=== PATIENT | male | born 1945 | race Caucasian/White ===

== ENCOUNTER → 2016-11-17 | Outpatient (CLI) | payer MEDICARE, OTHER ==
[~2016-11-17] MED LIST: ALLO300T46 PO; ASPI-664 PO; CALC-375 PO; COLC0.6T6 PO; NAPR220C2 PO; SIMV20TA2 PO; VALS320T11 PO; [UNRECOGNIZED DRUG - CODE] PO
--- NOTE | 2016-11-17 12:13 | RADRPT ---
PROCEDURE: XR Pelvis and Hips. CLINICAL INDICATION: Pelvic pain. Bilateral hip pain. TECHNIQUE: Five views. Frontal pelvis. Frontal and lateral right hip. Frontal and lateral left hip. COMPARISON: 11/22/2014. FINDINGS: There is a right hip total arthroplasty which appears satisfactory. There is no fracture, dislocati on, or loosening. There are moderate degenerative changes of the left hip with joint space narrowing and osteophytes. There is no fracture or dislocation. Left hip articular surfaces are intact. Vascular calcifications are present consistent with atherosclerosis. There is no lytic or blastic lesion. Surgical clips are present in the bilateral inguinal regions. There are are surgical metal devices in the midline abdomen from prior surgery of repair with mesh. There are degenerative changes of th e spine. IMPRESSION: 1. Satisfactory postoperative appearance of the right hip. 2. Moderate degenerative changes of the left hip. 3. Postoperative changes of the abdomen and pelvis. 4. Degenerative changes of the lower lumbar spine. RPTAT: QQ .Trung De Anda MD, MD Date Time Electronically viewed and signed by .Trung De Anda MD, on 11/17/2016 12:13 .R/
== END | disposition home or self-care (01) ==
LOC: HKI 09:18
PROVIDERS: ATTEND Orthopaedic Surgery
DX: Z09 Encounter for follow-up examination after completed treatment for conditions other than malignant neoplasm (principal); Z96.641 Presence of right artificial hip joint; M16.12 Unilateral primary osteoarthritis, left hip; M25.552 Pain in left hip
CPT/HCPCS: 73523; G0463

== ENCOUNTER 2016-12-10 12:03 | Inpatient (IN) | payer MEDICARE, OTHER ==
[~2016-12-10] VITALS: Ht 170.2 cm; Wt 88.7 kg
[2016-12-10 12:49] LABS: ADD SCAN DIFF NO
[2016-12-10 13:08] LABS: ABNORMAL IP MESSAGE 1; BASOPHIL # 0.1 10^3/ul (0.0-0.1); BASOPHILS % 0.5 % (0.0-2.0); EOSINOPHILS % 0.1 % (0.0-7.0); HEMATOCRIT 37.7 % (42.0-52.0); HEMOGLOBIN 13.6 g/dl (14.0-18.0); LYMPHOCYTES # 0.4 10^3/ul (0.8-2.9); LYMPHOCYTES % 2.8 % (15.0-51.0); MEAN CORPUSCULAR HEMOGLOBIN 31.8 pg (29.0-33.0); MEAN CORPUSCULAR HGB CONC 36.1 g/dl (32.0-37.0); MEAN CORPUSCULAR VOLUME 88.1 fl (82.0-101.0); MEAN PLATELET VOLUME 13.7 fl (7.4-10.4); MONOCYTE # 0.4 10^3/ul (0.3-0.9); NEUTROPHIL # 13.1 10^3/ul (1.6-7.5); PLATELET COUNT 112 10^3/UL (140-415); RED BLOOD COUNT 4.28 10^6/ul (4.70-6.10); RED CELL DISTRIBUTION WIDTH 14.7 % (11.5-14.5); WHITE BLOOD COUNT 14.1 10^3/ul (4.8-10.8)
--- NOTE | 2016-12-10 13:16 | RADRPT ---
PROCEDURE: CHEST 1VW CLINICAL INDICATION: Weakness TECHNIQUE: Single frontal view of the chest was obtained COMPARISON: None. FINDINGS: The cardiac size is normal. Aortic vascular calcifications are demonstrated. There is no pulmonary vascular congestion. The lungs are clear. No consolidation, effusion, or pneumothorax. Mild degenerative changes of the visualized osseous structures are visualized. IMPRESSION: 1. No acute cardiopulmonary process. 2. Atherosclerosis. RPTAT:PP .Juan C Verde MD, MD Date Time Electronically viewed and signed by .Juan C Verde MD, on 12/10/2016 13:16 .V/
[2016-12-10] MEDS ORDERED: VALS160T20 PO (14:36)
[2016-12-10] MEDS ORDERED: METO-448 PO (14:37)
[2016-12-10 15:32] LABS: ADD UMIC YES; UR BILIRUBIN (Dip) NEGATIVE (NEGATIVE); UR BLOOD (Dip) 2+ (NEGATIVE); UR CLARITY CLEAR (CLEAR); UR COLOR LT. YELLOW (YELLOW); UR GLUCOSE (Dip) NEGATIVE (NEGATIVE); UR KETONES (Dip) NEGATIVE (NEGATIVE); UR LEUKOCYTE ESTERASE (Dip) TRACE (NEGATIVE); UR NITRITE (Dip) NEGATIVE (NEGATIVE); UR TOTAL PROTEIN (Dip) 2+ (NEGATIVE); UR UROBILINOGEN (Dip) 0.2 E.U./dL (0.1-1.0)
[2016-12-10] MEDS ORDERED: SOD CHLORIDE 0.9% 1,000 ML IV ONE (15:45)
[2016-12-10 15:50] LABS: ALANINE AMINOTRANSFERASE 36 IU/L (13-69); ALBUMIN/GLOBULIN RATIO 0.88; ALKALINE PHOSPHATASE 84 IU/L (42-121); ASPARTATE AMINO TRANSFERASE 38 IU/L (15-46); BILIRUBIN,INDIRECT 0.3 mg/dl (0-1.1); BILIRUBIN,TOTAL 0.3 mg/dl (0.2-1.3); BLOOD UREA NITROGEN 95 mg/dl (7-20); CALCIUM 9.5 mg/dl (8.4-10.2); CARBON DIOXIDE 32 mmol/L (21-31); CREATININE 5.81 mg/dl (0.61-1.24); GLUCOSE 107 mg/dl (70-220); TOTAL PROTEIN 6.4 g/dl (6.1-8.1)
[2016-12-10 15:54] LABS: URINE RBCS 0-2 /HPF (0)
[2016-12-10 16:01] LABS: ANION GAP 20 (8-16); CHLORIDE 79 mmol/L (97-110); POTASSIUM 3.6 mmol/L (3.5-5.1); SODIUM 127 mmol/L (135-144)
[2016-12-10 16:26] LABS: BARBITURATES Negative (NEGATIVE); BENZODIAZEPINES Negative (NEGATIVE); COCAINE Negative (NEGATIVE)
[2016-12-10 16:30] LABS: CANNABINOIDS Positive (NEGATIVE); OPIATES Negative (NEGATIVE)
[2016-12-10 16:32] LABS: ETHANOL < 10.0 mg/dl
[2016-12-10] MEDS ORDERED: ACETAMINOPHEN 325 MG TAB PO PRN ×2 (17:00→18:00)
[2016-12-10] MEDS ORDERED: ONDANSETRON 4 MG INJ IV PRN (17:00)
--- NOTE | 2016-12-10 17:19 | ERA ---
ER Documentation Chief Complaint Date/Time DATE: 12/10/16 TIME: 17:08 Chief Complaint WEAKNESS, FLU X 5 DAYS TRIP AND FALL TODAY HPI 71-year-old male with a history of atrial fibrillation, hypertension, hyperlipidemia, gout, and prostate cancer status post treatment presenting to the ER with generalized weakness for several days. He states that over the past year, he has been feeling like his muscles have been wasting. He has had progressively worsening generalized weakness. Today he was having some difficulty walking due to his weakness and fell. He denies hitting his head or any loss of consciousness. He denies any specific injuries. He has no chest pain, shortness of breath, dizziness, headache, vision disturbance, focal weakness or numbness, abdominal pain or dysuria. ROS All systems reviewed and are negative except as per history of present illness. Medications Home Meds Reported Medications Metoprolol Tartrate* (Lopressor*) 25 Mg Tab, 25 MG PO BID, #60 TAB 12/10/16 Valsartan* (Diovan*) 160 Mg Tablet, 160 MG PO DAILY, TAB 12/10/16 Naproxen* (Aleve*) 220 Mg Capsule, 220 MG PO DAILY 11/13/13 Aspirin (Aspirin) 81 Mg Tablet.dr, 81 MG PO DAILY 11/13/13 Simvastatin (Simvastatin) 20 Mg Tablet, 20 MG PO HS 11/13/13 Allopurinol* (Zyloprim*) 300 Mg Tablet, 300 MG PO DAILY 11/13/13 Discontinued Reported Medications Glucosamine/Chondro Phillips A (Cosamin Ds Tablet) 1 Tab Tablet, 1 TAB PO DAILY 11/13/13 Calcium Citrate/Vitamin D3 (Citracal + D Caplet) 1 Tab Tablet, 1 TAB PO DAILY 11/13/13 Colchicine* (Colcrys*) 0.6 Mg Tablet, 0.6 MG PO BID 11/13/13 Valsartan* (Diovan*) 320 Mg Tablet, 320 MG PO DAILY 11/13/13 Allergies Allergies: Coded Allergies: Penicillins (Verified Allergy, Unknown, 12/10/16) adhesive (Verified Allergy, Unknown, 12/10/16) latex (Verified Allergy, Unknown, 12/10/16) PMhx/Soc History of Surgery: Yes Anesthesia Reaction: No Hx Neurological Disorder: No Hx Respiratory Disorders: No Hx Cardiac Disorders: Yes (HTN, HIGH CHOLESTEROL) Hx Psychiatric Problems: No Hx Miscellaneous Medical Probl: Yes (HTN, DJD, prostate carcinoma, gout) Hx Alcohol Use: Yes (Drinks 10 beers a day) Hx Substance Use: No Hx Tobacco Use: No Smoking Status: Never smoker FmHx Family History: No diabetes Physical Exam Vitals Vital Signs Date Time Temp Pulse Resp B/P Pulse Ox O2 Delivery O2 Flow Rate FiO2 12/10/16 13:12 100 18 120/60 99 Room Air 12/10/16 12:09 98.1 84 20 148/88 98 Physical Exam Const: Well-appearing, no distress, nontoxic Head: Atraumatic Eyes: Normal Conjunctiva ENT: Dry oral mucosa Neck: Full range of motion. No meningismus. Resp: Clear to auscultation bilaterally Cardio: Irregularly irregular rate and rhythm, no murmurs Abd: Soft, non tender, non distended. Normal bowel sounds Skin: No petechiae or rashes Back: No midline or flank tenderness Ext: No cyanosis, or edema. No obvious muscle atrophy noted Neur: Awake and alert and oriented 3, cranial nerves intact, strength and sensations intact in all 4 extremities. Gait not tested secondary to weakness Psych: Normal Mood and Affect Result Diagram: 12/10/16 1200 12/10/16 1520 Results 24 hrs Laboratory Tests Test 12/10/16 12:00 12/10/16 15:10 12/10/16 15:20 White Blood Count 14.110^3/ul Red Blood Count 4.2810^6/ul Hemoglobin 13.6g/dl Hematocrit 37.7% Mean Corpuscular Volume 88.1fl Mean Corpuscular Hemoglobin 31.8pg Mean Corpuscular Hemoglobin Concent 36.1g/dl Red Cell Distribution Width 14.7% Platelet Count 13780^3/UL Mean Platelet Volume 13.7fl Neutrophils % 93.0% Lymphocytes % 2.8% Monocytes % 3.0% Eosinophils % 0.1% Basophils % 0.5% Nucleated Red Blood Cells % 0.0/100WBC Neutrophils # 13.110^3/ul Lymphocytes # 0.410^3/ul Monocytes # 0.410^3/ul Eosinophils # 0.010^3/ul Basophils # 0.110^3/ul Nucleated Red Blood Cells # 0.010^3/ul Urine Color LT. YELLOW Urine Clarity CLEAR Urine pH 6.5 Urine Specific [place] 1.015 Urine Ketones NEGATIVE Urine Nitrite NEGATIVE Urine Bilirubin NEGATIVE Urine Urobilinogen 0.2 E.U./dL Urine Leukocyte Esterase TRACE Urine Microscopic RBC 0-2/HPF Urine Microscopic WBC 0-2/HPF Urine Hemoglobin 2+ Urine Glucose NEGATIVE% Urine Total Protein 2+ Urine Opiates Screen Negative Urine Barbiturates Negative Urine Amphetamines Screen Negative Urine Benzodiazepines Screen Negative Urine Cocaine Screen Negative Urine Cannabinoids Positive Sodium Level 127mmol/L Potassium Level 3.6mmol/L Chloride Level 79mmol/L Carbon Dioxide Level 32mmol/L Anion Gap 20 Blood Urea Nitrogen 95mg/dl Creatinine 5.81mg/dl Glucose Level 107mg/dl Calcium Level 9.5mg/dl Total Bilirubin 0.3mg/dl Direct Bilirubin 0.00mg/dl Indirect Bilirubin 0.3mg/dl Aspartate Amino Transf (AST/SGOT) 38IU/L Alanine Aminotransferase (ALT/SGPT) 36IU/L Alkaline Phosphatase 84IU/L Total Protein 6.4g/dl Albumin 3.0g/dl Globulin 3.40g/dl Albumin/Globulin Ratio 0.88 Ethyl Alcohol Level < 10.0mg/dl Current Medications Medications (Trade) Dose Ordered Sig/Julianne Route PRN Reason Start Time Stop Time Status Last Admin Dose Admin Sodium Chloride (NS) 1,000 ml @ 500 mls/hr Q2H ONCE IV 12/10/16 15:45 12/10/16 17:44 12/10/16 15:58 Ondansetron HCl (Zofran Inj) 4 mg ER BRIDGE PRN IV NAUSEA AND/OR VOMITING 12/10/16 17:00 12/11/16 16:59 Acetaminophen (Tylenol Tab) 650 mg ER BRIDGE PRN PO MILD PAIN/FEVER 12/10/16 17:00 12/11/16 16:59 Procedures/MDM EKG: Rate/Rhythm: A. fib at 109 bpm QRS, ST, T-waves: No changes consistent w/ acute ischemia Impression: No evidence of ischemia or arrhythmia Chest x-ray shows no acute abnormalities Labs: CBC shows mild leukocytosis with elevation in neutrophils, CMP notable for hypochloremia, hyponatremia, uremia and elevation of creatinine MDM: Patient is presenting with generalized weakness has progressively worsened. He has no focal weakness to suggest an acute stroke or intracranial hemorrhage. Vitals are unremarkable and he is afebrile. Urinalysis does not show evidence of infection. EKG shows A. fib without evidence of ischemia. He has mild leukocytosis of unknown etiology. There is no evidence of pneumonia on his chest x-ray or pulmonary edema. His labs reveal he has acute renal failure with hypochloremic hyponatremia but no evidence of hyperkalemia. Given his history of muscle wasting, I added a CK to evaluate for rhabdomyolysis as a cause of his renal failure. Troponin is also pending. Patient will be admitted to telemetry for further workup and management. 1 L of fluids is running at this time. Patient was updated about his results and the plan to admit. He remained hemodynamically stable while he was in the ER. Critical Care Time: 35 minutes Treatments/Evaluations: Close monitoring and treatment of unstable vital signs, cardiorespiratory, and neurologic status, while maintaining tight balance of fluid, respiratory, and cardiac interventions. This time includes discussing the case with the patient and the patients family. This time does not include all procedures stated elsewhere in this record. This time also includes reviewing old records, labs and radiological studies. This time includes examining and re-examining the patient. Additionally, this time also includes arranging care with admitting and consulting physicians. Accepting Care Team: Current data and ongoing care discussed. Time: Time of admission Primary Provider: Solomon Consulting: None Outstanding Data: Troponin, CK, CK-MB Departure Diagnosis: Primary Impression: Acute weakness Additional Impressions: Acute renal failure (ARF) Qualified Code: N17.9 - Acute renal failure, unspecified acute renal failure type Hypochloremia Hyponatremia Leukocytosis, unspecified Condition: Serious URSULA GAYTAN MD December 10, 2016 17:19
[2016-12-10] MEDS ORDERED: MAGNESIUM HYDROXIDE 30ML CUP PO PRN (18:00)
[2016-12-10] MEDS ORDERED: BISACODYL (EC) 5 MG TAB PO PRN (18:00)
[2016-12-10] MEDS ORDERED: NACL 0.9% 3 ML SYG IV SCH (18:00)
--- NOTE | 2016-12-10 18:18 | RADRPT ---
PROCEDURE: CT Brain without contrast. CLINICAL INDICATION: Fall, weakness. TECHNIQUE: A CT of the brain was performed utilizing axial sections from the skull base through th e vertex without contrast. Multiplanar re-formations were generated. Images were reviewed on a high- resolution PACS workstation. CTDIvol: 42.30 mGy. DLP: 720.23 mGy-cm. One or more of the following dose reduction techniques were used: - Automated exposure control. - Adjustment of the mA and/or kV according to patient size. - Use of iterative reconstruction technique. COMPARISON: None available FINDINGS: There is mild to moderate generalized volume loss. No hydrocephalus is seen. There is no mass effec t. No acute intracranial hemorrhage is identified. There is no extra-axial collection. No CT eviden ce of acute infarction is identified. There is patchy low attenuation in the supratentorial white m atter, a nonspecific finding which most likely represents the sequela of mild chronic microvascular ischemic disease. There are mild atherosclerotic arterial calcifications. There is no significant mucosal disease in the paranasal sinuses. The visualized mastoid air cells a re clear. The ossesous structures are unremarkable. The extracranial soft tissues are unremarkable. The patient is status post bilateral lens replacement surgery. IMPRESSION: 1. No acute intracranial pathology. 2. Mild to moderate generalized volume loss. 3. Mild chronic microvascular ischemic changes. 4. Atherosclerotic arterial calcifications. RPTAT: HTAR .Mark Devlin MD, Date Time Electronically viewed and signed by .Mark Devlin MD, on 12/10/2016 18:18 .R/
[2016-12-10 18:27] LABS: CK-MB 0.8 ng/ml (0.0-2.4)
--- NOTE | 2016-12-10 18:58 | CONS ---
Date/Time of Note Date/Time of Note DATE: 12/10/16 TIME: 18:52 Assessment/Plan Assessment/Plan Additional Assessment/Plan Acute kidney injury Status post fall Atrial fibrillation History of hypertension Recent UTI -Our patient's fall is likely secondary to severe hypovolemia, acute kidney injury. His atrial fibrillation is currently well-controlled. Will continue beta-anjelica as blood pressure permits. Would give aggressive IV fluids, given recent UTI and acute kidney injury, renal imaging to rule out any other contributing factor. Based on his laboratory studies and history, at the current time, his weakness and fall does not appear to be cardiac in origin. Consultation Date/Type/Reason Admit Date/Time Type of Consultation: cv Reason for Consultation Atrial fibrillation and fall Hx of Present Illness This is a 71-year-old male with past medical history of atrial fibrillation, hypertension, dyslipidemia, arthritis who presents with 3-4 days symptoms of fatigue, nausea, vomiting. Patient was being treated for a UTI recently with antibiotics. This, he felt extremely weak and when he stood down. There was no loss of consciousness. No chest pain, shortness of breath. Once on the floor, he felt too weak to get up. Because of the above, he came to the emergency room for evaluation and care. He feels better after receiving IV fluids. Prior to this episode, he denies exertional chest pain, shortness breath, occasions or disease. He does tonic and this has been controlled metoprolol and he is not on anticoagulation for unknown reasons. 12 point review of systems was performed with all pertinent positives and negatives mentioned above and all else is negative Past Medical History Atrial fibrillation Medical History: hypertension Past Surgical History Past Surgical Hx: other (Hip surgery) Family History Significant Family History: no pertinent family hx Social History Smoking Status: Never smoker Other Social History Lives at home Exam/Review of Systems Vital Signs Vitals Vital Signs Date Time Temp Pulse Resp B/P Pulse Ox O2 Delivery O2 Flow Rate FiO2 12/10/16 17:44 96 2 154/83 98 Room Air 12/10/16 12:09 98.1 Exam No apparent distress, following commands Constitutional: alert, oriented Head: normocephalic Neck: supple Respiratory: clear to auscultation, normal air movement Cardiovascular: irregular rhythm, other (S1-S2 heard) Gastrointestinal: bowel sounds, non-tender, other (No guarding), soft Extremities: other (No edema or cyanosis) Results Result Diagram: 12/10/16 1200 12/10/16 1520 Results 24 hrs Laboratory Tests Test 12/10/16 12:00 12/10/16 15:10 12/10/16 15:20 12/10/16 15:30 White Blood Count 14.1 H Red Blood Count 4.28 L Hemoglobin 13.6 L Hematocrit 37.7 L Mean Corpuscular Volume 88.1 Mean Corpuscular Hemoglobin 31.8 Mean Corpuscular Hemoglobin Concent 36.1 Red Cell Distribution Width 14.7 H Platelet Count 112 L Mean Platelet Volume 13.7 H Neutrophils % 93.0 H Lymphocytes % 2.8 L Monocytes % 3.0 Eosinophils % 0.1 Basophils % 0.5 Nucleated Red Blood Cells % 0.0 Neutrophils # 13.1 H Lymphocytes # 0.4 L Monocytes # 0.4 Eosinophils # 0.0 Basophils # 0.1 Nucleated Red Blood Cells # 0.0 Urine Color LT. YELLOW Urine Clarity CLEAR Urine pH 6.5 Urine Specific [place] 1.015 Urine Ketones NEGATIVE Urine Nitrite NEGATIVE Urine Bilirubin NEGATIVE Urine Urobilinogen 0.2 E.U./dL Urine Leukocyte Esterase TRACE H Urine Microscopic RBC 0-2 Urine Microscopic WBC 0-2 Urine Hemoglobin 2+ H Urine Glucose NEGATIVE Urine Total Protein 2+ H Urine Opiates Screen Negative Urine Barbiturates Negative Urine Amphetamines Screen Negative Urine Benzodiazepines Screen Negative Urine Cocaine Screen Negative Urine Cannabinoids Positive Sodium Level 127 L Potassium Level 3.6 Chloride Level 79 L Carbon Dioxide Level 32 H Anion Gap 20 H Blood Urea Nitrogen 95 H Creatinine 5.81 H Glucose Level 107 Calcium Level 9.5 Total Bilirubin 0.3 Direct Bilirubin 0.00 Indirect Bilirubin 0.3 Aspartate Amino Transf (AST/SGOT) 38 Alanine Aminotransferase (ALT/SGPT) 36 Alkaline Phosphatase 84 Creatine Kinase 37 Creatinine Kinase MB (Mass) 0.80 Troponin I 0.021 Total Protein 6.4 Albumin 3.0 L Globulin 3.40 H Albumin/Globulin Ratio 0.88 Ethyl Alcohol Level < 10.0 Uric Acid 4.9 Medications Medications Current Medications Ondansetron HCl (Zofran Inj) 4 mg Q6H PRN IV NAUSEA AND/OR VOMITING; Start 12/10 at 18:00 Acetaminophen (Tylenol Tab) 650 mg Q6H PRN PO PAIN LEVEL 1-3 OR FEVER; Start at 18:00 Acetaminophen/ Hydrocodone Bitart ([place] (5/325)) 1 tab Q6H PRN PO PAIN LEVEL 4 -6; Start 12/10/16 at 18:00 Morphine Sulfate (morphine) 2 mg Q4H PRN IV PAIN LEVEL 7-10; Start 12/10/16 at 18:00 Magnesium Hydroxide (Milk Of Mag) 30 ml DAILY PRN PO CONSTIPATION; Start at 18:00 Bisacodyl (Dulcolax) 5 mg DAILY PRN PO CONSTIPATION; Start 12/10/16 at 18:00 Famotidine (Pepcid) 20 mg DAILY PO ; Start 12/11/16 at 09:00 Hydralazine HCl (Apresoline) 10 mg Q6H PRN IV SBP>160; Start 12/10/16 at 18:00; Status UNV Metoprolol Tartrate (Lopressor) 25 mg BID PO ; Start 12/10/16 at 21:00; Status UNV Miscellaneous Information 20 mg 20 mg HS PO ; Start 12/10/16 at 21:00; Status UNV Sodium Chloride (NS) 1,000 ml @ 100 mls/hr Q10H IV ; Start 12/10/16 at 18:00; Status UNV Lorazepam (Ativan) 1 mg Q2H PRN IV Anxiety; Start 12/10/16 at 18:30; Status UNV Chlordiazepoxide 50 mg 50 mg TID PO ; Start 12/10/16 at 21:00; Status UNV Multivitamins/ Thiamine HCl/ Folic Acid/Sodium Chloride (Mvi Adult/ Vitamin B1/ Folic Acid/NS) 1,011.2 ml @ 125 mls/ hr DAILY@09 IVPB ; Start 12/11/16 at 09:00 ; Status UNV Procedures Procedures ECG demonstrates atrial fibrillation with heart rates in the low 100's, normal QRS duration, nonspecific STT wave abnormality Zeyad Kelly DO December 10, 2016 18:58
--- NOTE | 2016-12-10 19:04 | HP ---
DATE OF ADMISSION: 12/10/2016 TIME OF EVALUATION: 1512. REASON FOR ADMISSION: Weakness, status post fall today. CONSULTATIONS: 1. Dr. Juan Avalos, Nephrology. 2. Dr. Zeyad Kelly, Cardiology. HISTORY OF PRESENT ILLNESS: This is a 71-year-old male with past medical history of essential hypertension, hyperlipidemia, gout, prostate cancer and atrial fibrillation who presented to the emergency room with a chief complaint of generalized weakness, multiple episodes of vomiting and diarrhea and reported fall after tripping on something. The patient verbalized that he has been feeling weak progressively over the past 1 to 2 weeks. He also verbalized that he was having epigastric pain with associated nonbilious nonbloody vomiting and multiple episodes of diarrhea. The patient verbalized that he was recently treated for an urinary tract infection that was probably not completely treated as per the patient. The patient has been incontinent of urine and the patient is wearing a pad. The patient denied any problems with his kidneys. The patient has outpatient cardiology followup. The patient is a current everyday drinker and drinks up to 10 cans of beer per day. The patient' s last drink was on 12/07/2016 in the evening. The patient denied any syncope or presyncope, visual disturbances, headache, chest pain or dyspnea prior to the fall. The patient denied hitting his head. The patient verbalized that it was a ground level fall. The patient verbalized subjective fevers at home. The patient was not taking any medication specifically for his symptoms. Upon questioning why he waited for a week long before seeking medical advice, he verbalized that he had a similar episode in the past year or so and it went away without medical attention. In the emergency room, the patient was noticed to be in atrial fibrillation. The patient's workup showed that the patient has underlying leukocytosis. The patient was also noticed to be in acute renal failure with a BUN and creatinine of 95 and 5.85 respectively. The patient was also noticeably hyponatremic with a sodium of 127. The patient's urine drug screen was positive for cannabinoids. The patient's urinalysis was positive for leukocyte esterase with 2+ proteinuria and 2+ hemoglobinuria. The patient's chest x-ray was showing no acute cardiopulmonary process. The patient was treated with IV sodium chloride in the emergency room. PAST MEDICAL HISTORY: Essential hypertension, hyperlipidemia, gout, prostate cancer, atrial fibrillation. PAST SURGICAL HISTORY: Right hip arthroplasty, prostatectomy, kyphoplasty, left knee arthroscopic surgery, appendectomy and tonsillectomy. HOME MEDICATIONS: 1. Lopressor 25 mg p.o. b.i.d. 2. Valsartan 160 mg p.o. daily. 3. Naproxen 220 mg p.o. daily. 4. Aspirin 81 mg p.o. daily. 5. Simvastatin 20 mg p.o. at bedtime. 6. Allopurinol 300 mg p.o. daily. ALLERGIES: PENICILLIN, ADHESIVES AND LATEX. SOCIAL HISTORY: The patient lives at home by himself. Currently retired. Current every day drinker and drinks 10 beers a day. Denies any tobacco abuse. Smokes marijuana in between. REVIEW OF SYSTEMS: A 12-point review of systems were made and review of systems was negative other than what is mentioned in history of present illness. PHYSICAL EXAMINATION: VITAL SIGNS: Temperature 98.1, pulse rate 96, respiratory rate 18, blood pressure 154/83, oxygen saturation 90% on room air. GENERAL: This is a well-built, well-nourished male patient lying in bed in no apparent distress. HEENT: Head normocephalic and atraumatic. Eyes: Anicteric sclerae. Conjunctivae clear. ENT: Nasal septum is midline. Oral mucosa is dry. NECK: Supple. No JVD noticed. RESPIRATORY: Bilaterally clear to auscultation. No adventitious breath sounds. No use of accessory muscles of respiration. CARDIAC: Irregularly irregular rhythm. ABDOMEN: Soft, nontender, nondistended. Bowel sounds positive in all 4 quadrants. GENITOURINARY: Deferred. EXTREMITIES: No cyanosis, no clubbing, no edema. Peripheral pulses are palpable. NEUROLOGIC: The patient is awake, alert and oriented. Cranial nerves are grossly intact. The patient moves all 4 extremities. LABORATORY AND DIAGNOSTIC DATA: WBC 14.1, hemoglobin 13.6, hematocrit 37.7, platelet count 112. Sodium 127, potassium 3.6, chloride 79, carbon dioxide 32, anion gap 20, BUN 95, creatinine 5.81, glucose 107, calcium 9.5, AST 38, ALT 36 , alkaline phosphatase 84, total protein 6.4. Urinalysis: Urine nitrite negative, urine leukocyte esterase trace, urine hemoglobin 2+, urine total protein 2+. Urine drug screen positive for cannabinoids. Alcohol level less than 10. Chest x-ray: No acute cardiopulmonary process. Atherosclerosis. IMPRESSION: This is a 71-year-old male with multiple comorbidities who came to the emergency room with multiple complaints who was found to have evidence of acute kidney injury and hyponatremia. He will be admitted here for further treatment and evaluation. ASSESSMENT AND PLAN: 1. Acute kidney injury. Etiology unclear. The patient had a normal BUN and creatinine upon review of his medical record from his admission to [facility] in 2013. The patient also denied any history of kidney problems. The patient has been noticed to be taking NSAIDs on a daily basis. The patient is also on Valsartan. The patient has been dehydrated recently. The patient's acute kidney injury could be a result of combination of all the patient's nephrotoxic drugs and dehydration. Nephrotoxic drugs will be discontinued. The patient will be adequately hydrated using IV fluids. A nephrology consult will be obtained. 2. Status post fall. It is unclear whether the patient had a mechanical fall versus non-mechanical. A brain CT scan will be obtained to evaluate for any underlying acute intracranial pathology. A 2D echocardiogram will be done to evaluate the left ventricular ejection fraction and to evaluate for any wall motion abnormalities. The patient will be ruled out for any underlying acute coronary syndrome. The patient will be monitored for any underlying arrhythmias. 3. Essential hypertension. The patient will be started on antihypertensives. The patient's ARBs were discontinued. The patient will also be started on p.r.n. antihypertensives for any systolic blood pressure readings greater than 160 mmHg. 4. Gout. A serum uric acid level will be obtained. The patient's allopurinol will be put on hold at this time. 5. Hyperlipidemia. The patient's statins will be resumed. A fasting lipid panel will be obtained. 6. Atrial fibrillation. The patient will be continued on beta blockers. Cardiology consult will be obtained. Serial troponins will be obtained. 7. Alcohol abuse. The patient is a daily alcohol user. The patient verbalized that his last drink was on 12/07/2016. The patient will be started on tapering dose of Librium. The patient will be started on daily banana bag. The patient also started on IV benzodiazepines for any acute alcohol withdrawal delirium. 8. Leukocytosis. Etiology unclear. Pancultures will be obtained. The patient remains afebrile at this time. Will hold on to starting antibiotics until cultures are available unless the patient has any febrile illness. 9. Thrombocytopenia, most probably secondary to underlying alcohol abuse. We will monitor. Plan. The patient will be admitted to inpatient telemetry floor. The patient will be started on a renal diet. The patient will be started on deep venous thrombosis prophylaxis with bilateral sequential compression devices. The patient will be started on gastrointestinal prophylaxis. The patient will remain a FULL CODE. Activities will be with assist. The rest of the patient's management will be based on the clinical course, the results of diagnostic studies, and inputs from consultants. Based on the patient's clinical presentation, he most probably requires at least 2 midnights' stay for further management and evaluation of his clinical presentation. The case and management of this patient was fully discussed with Dr. Shore. JACK SHORE MD, AM/RIKA Conf#: [id number] DID#: [id number] MTDD
--- NOTE | 2016-12-10 19:42 | RADRPT ---
PROCEDURE: Renal US. CLINICAL INDICATION: Acute kidney insufficiency . TECHNIQUE: Multiple sonographic images of the kidneys were obtained. The images were reviewed on a PACS workstation. COMPARISON: No prior studies are available for comparison. FINDINGS: The right kidney measures 1.5 cm in length. The left kidney measures 9.8 cm in length. Kidneys are normal size and echogenicity. Vascular flow is identified to both kidneys. There is 9 mm nonobstruct ing calculus in the lower pole of the left kidney. There is no hydronephrosis, mass or obstructing calculus. There is no perinephric collection. Visualized urinary bladder is unremarkable. IMPRESSION: Nonobstructing left renal calcification. No evidence for obstructive uropathy. RPTAT: HMVK .Zeyad Woody MD, Date Time Electronically viewed and signed by .Zeyad Woody MD, on 12/10/2016 19:42 .K/
[2016-12-10 20:30] VITALS: TEMP 98.2
[2016-12-10] MEDS ORDERED: FAMOTIDINE 20 MG TAB PO SCH (21:00)
[2016-12-10] MEDS: CHLORDIAZEPOXIDE 25 MG CAP PO SCH ×2 (21:36→21:56)
[2016-12-10] MEDS: SOD CHLORIDE 0.9% 1,000 ML IV SCH (21:36)
[2016-12-10] MEDS: ATORVASTATIN 10 MG TAB PO SCH (21:37)
[2016-12-10] MEDS: METOPROLOL 25 MG TAB PO SCH (21:38)
[2016-12-10 22:13] VITALS: BP 155/73; PULSE 75; RESP 18
[2016-12-10 22:19] VITALS: Ht 170.2 cm; Wt 88.7 kg
[2016-12-10 22:37] VITALS: PULSE 111
[2016-12-11] VITALS (11 sets, daily range): BP systolic 138–169; BP diastolic 67–88; PULSE 67–122; RESP 16–20
--- NOTE | 2016-12-11 05:36 | CONS ---
DATE OF ADMISSION: 12/10/2016 DATE OF CONSULTATION: NEPHROLOGY CONSULTATION CHIEF COMPLAINT: Fall episodes, presented with weakness. REASON FOR CONSULTATION: Acute kidney injury with a BUN of 97, creatinine 5.8, hyponatremia, sodium 127. REFERRING PHYSICIAN: Solomon HISTORY OF PRESENT ILLNESS: This is a 71-year-old male who has a past medical history of essential hypertension, hyperlipidemia, gout, prostate cancer, atrial fibrillation, who presented to the emerg ency room with a complaint of generalized weakness, multiple episodes of vomiting and diarrhea and h ad a reported fall after tripping on something. The patient verbalized that he has been feeling wea k progressively over the past 1 to 2 weeks. He reached up to the point that he could not stand up. The patient had a urinary tract infection approximately 2 to 3 months ago that was probably not com pletely treated, as per the patient. The patient also occasionally drinks alcohol, he drinks up to 10 cans of beers per day. The last drink was on 12/07/2016 in the evening. The patient denied any syncope, presyncope, blurry visions or headache prior to the fall episode. He denies any chest pain , palpitation, headache, dizziness, blurry vision. As per the patient, he said he was having some s ubjective fevers at home, but he was afebrile in the emergency room. In the emergency room, he was noted to be in atrial fibrillation, but the rate was controlled. His workup showed that he has underlying leukocytosis. He was also noted to have acute renal failure wi th a BUN of 95, creatinine 5.8. He had a hyponatremia with a sodium down to 127 and the urine drug screen was positive for cannabinoids. The patient's urinalysis was positive for infection. Renal h as been consulted for acute kidney injury with a BUN of 95, creatinine 5.8 and hyponatremia with a s odium of 127. REVIEW OF SYSTEMS: As per HPI. PAST MEDICAL HISTORY: Essential hypertension, hyperlipidemia, gout, prostate cancer and atrial fibr illation. PAST SURGICAL HISTORY: Right hip arthroplasty, prostatectomy, kyphoplasty, left knee arthroscopic s urgery, appendectomy, tonsillectomy. HOME MEDICATIONS: Included: 1. Valsartan. 2. Lopressor. 3. Naproxen 4. Aspirin. 5. Simvastatin. 6. Allopurinol. ALLERGIES: 1. PENICILLIN. 2. ADHESIVES. 3. LATEX. SOCIAL HISTORY: The patient lives at home by himself. He is currently retired . He drinks ap proximately 10 beers per day. He denies any tobacco use. He smokes marijuana in between. PHYSICAL EXAMINATION: VITAL SIGNS: Temperature 98.1, heart rate 96, respirations 18, blood pressure 154/83, saturation 90 % on room air. GENERAL: This is a well-built, well-nourished male, lying in bed in no apparent distress. HEENT: Normocephalic, atraumatic. Pupils equal, round, reactive to light and accommodation. Conju nctivae clear. Anicteric sclerae. NECK: Supple, no JVD, no lymphadenopathy. LUNGS: Clear to auscultation bilaterally, no adventitious breath sounds. No use of accessory muscl es of respiration. HEART: S1, S2, irregularly irregular. No murmur. ABDOMEN: Soft, nontender, nondistended. Bowel sounds are present in all 4 quadrants. GENITOURINARY: Deferred. EXTREMITIES: No clubbing, cyanosis, edema. Peripheral pulses are palpable. NEUROLOGICAL: The patient is awake, alert, oriented to place, person, time. Cranial nerves II thro ugh XII intact. Moves all 4 extremities. Motor strength and sensations are intact. LABORATORY DATA AND DIAGNOSTIC IMAGING: Chest x-ray: No acute cardiopulmonary process, atheroscler osis. WBC 14.1, hemoglobin 13.6, hematocrit 37.7, platelet count 112. Sodium 127, potassium 3.6, c hloride 79, bicarbonate 32, anion gap 20, BUN 95, creatinine 5.8, glucose 107, calcium 9.5, AST 38, ALT 36, alkaline phosphatase 84, total protein 6.4. Urinalysis positive for leukocyte esterase ____ _ 2+ urine hemoglobin, total protein 2+, urine drug screen positive for cannabinoids. Alcohol level less than 10. IMPRESSION: This is a 71-year-old male with multiple comorbidities, who came to the emergency room with multiple complaints and found to have acute kidney injury and hyponatremia. Renal has been con sulted for: 1. Acute kidney injury, possibly likely secondary to severe prerenal azotemia in the setting of per sistent nausea, vomiting, beer drinking and also contribution from valsartan and naproxen, for his d aily use of naproxen for his pain. 2. Hyponatremia secondary to hypovolemic hyponatremia. 3. Status post fall, which was a mechanical fall, but likely due to the hyponatremia. CT brain is negative. 4. Possible history of chronic kidney disease secondary to hypertensive nephrosclerosis. 5. History of hypertension. 6. History of gout. 7. History of hyperlipidemia. 8. Atrial fibrillation, rate controlled. 9. History of alcohol abuse. 10. Thrombocytopenia secondary to alcohol abuse. PLAN: 1. Thank you, Dr. Shore, for this consultation. The patient currently seen in the emergency room. R enal ultrasound has been ordered. I will follow up on renal ultrasounds to rule out hydronephrosis and to rule out nephrolithiasis. 2. Since the patient has thrombocytopenia and he also has a history of alcohol abuse, I will order the abdominal ultrasounds to see if patient has liver cirrhosis and splenomegaly stigmata of liver d isease. 3. I will order urine studies including urine sodium, urine protein creatinine ratio, urine eosinop hils. 4. CK total, uric acid has been ordered for a.m. labs. 5. Continue the current IV fluid hydration with NS at 100 mL per hour, expecting the patient's crea tinine to improve. 6. Consider the banana bag and alcohol withdrawal treatment since the patient is a chronic alcohol user. He has been drinking 10 beers per day. 7. Hold off on Losartan and naproxen. The other medications can be continued. 8. Food Service Agent, Dr. Kelly, has been consulted. The patient's fall is most likely secondary to a mechanical and related to his acute renal failure, unlikely to cardiac origin. 9. Patient currently seen in the emergency room. He will be followed up along with the primary car e service and cardiology service. Total time spent in this patient's evaluation making assessment and plan, communicating with the pat ient at bedside and communicating with the nursing staff took more than 90 minutes, and more than 50 % of time spent in the education. Dictated By: MADELYN MIRANDA MD, KP/NTS Conf#: [id number] DID#: [id number] CC: CLOVIS SHORE MD;*EndCC*
[2016-12-11] MEDS: ONDANSETRON 4 MG INJ IV PRN (06:45)
[2016-12-11 07:28] LABS: ADD SCAN DIFF NO
[2016-12-11 07:39] LABS: ABNORMAL IP MESSAGE 1; BASOPHILS % 0.1 % (0.0-2.0); EOSINOPHILS % 0.1 % (0.0-7.0); HEMATOCRIT 36.2 % (42.0-52.0); HEMOGLOBIN 12.7 g/dl (14.0-18.0); LYMPHOCYTES # 0.5 10^3/ul (0.8-2.9); LYMPHOCYTES % 3.2 % (15.0-51.0); MEAN CORPUSCULAR HEMOGLOBIN 30.7 pg (29.0-33.0); MEAN CORPUSCULAR HGB CONC 35.1 g/dl (32.0-37.0); MEAN CORPUSCULAR VOLUME 87.4 fl (82.0-101.0); MEAN PLATELET VOLUME 12.8 fl (7.4-10.4); MONOCYTE # 0.9 10^3/ul (0.3-0.9); MONOCYTES % 5.8 % (0.0-11.0); NEUTROPHIL # 13.2 10^3/ul (1.6-7.5); PLATELET COUNT 90 10^3/UL (140-415); RED BLOOD COUNT 4.14 10^6/ul (4.70-6.10); RED CELL DISTRIBUTION WIDTH 14.9 % (11.5-14.5); WHITE BLOOD COUNT 14.6 10^3/ul (4.8-10.8)
[2016-12-11 07:52] LABS: NEUTROPHILS % 90.3 % (39.0-77.0)
[2016-12-11 07:55] LABS: INR 1.12; PROTIME 14.4 Sec (12.2-14.2); PT RATIO 1.1
[2016-12-11 07:56] LABS: PARTIAL THROMBOPLASTIN TIME 31.8 Sec (25.0-35.0)
[2016-12-11 07:57] LABS: ALBUMIN 2.5 g/dl (3.3-4.9); POTASSIUM 4.3 mmol/L (3.5-5.1)
[2016-12-11 07:59] LABS: CREATININE 5.55 mg/dl (0.61-1.24)
[2016-12-11 08:00] LABS: ALBUMIN/GLOBULIN RATIO 0.92; BILIRUBIN,INDIRECT 0.3 mg/dl (0-1.1); BILIRUBIN,TOTAL 0.3 mg/dl (0.2-1.3); CALCIUM 8.5 mg/dl (8.4-10.2); TOTAL PROTEIN 5.2 g/dl (6.1-8.1)
[2016-12-11 08:09] LABS: TROPONIN-I 0.03 ng/ml (0.00-0.12)
[2016-12-11 08:14] LABS: CK-MB 1.25 ng/ml (0.0-2.4)
[2016-12-11] MEDS: MULTIVITAMINS 10 ML, THIAMINE 100 MG, FOLIC ACID 1 MG in SOD CHLORIDE 0.9% 1,000 ML IVPB SCH (08:38)
[2016-12-11] MEDS: METOPROLOL 25 MG TAB PO SCH ×2 (08:39→21:10)
[2016-12-11] MEDS: FAMOTIDINE 20 MG TAB PO SCH (08:39)
[2016-12-11] MEDS: SOD CHLORIDE 0.9% 1,000 ML IV SCH ×2 (08:40→13:34)
[2016-12-11 09:15] LABS: MAGNESIUM 2.3 mg/dl (1.7-2.5); PHOSPHORUS 3.8 mg/dl (2.5-4.9)
--- NOTE | 2016-12-11 09:55 | CONS ---
Date/Time of Note Date/Time of Note DATE: 12/11/16 TIME: 09:54 Assessment/Plan Assessment/Plan Chief Complaint/Hosp Course Acute kidney injury Status post fall Atrial fibrillation, converted into SR History of hypertension Recent UTI Problems: Additional Assessment/Plan continue current meds will consider AC though higher risk given falls Consultation Date/Type/Reason Admit Date/Time December 10, 2016 at 16:57 Initial Consult Date Type of Consultation: cv 24 HR Interval Summary Free Text/Dictation no chest pain, no sob, no palpitations Detailed Summary Eyes: no complaints ENT: no complaints Respiratory: no complaints Cardiovascular: no complaints Gastrointestinal: no complaints Genitourinary: no complaints Musculoskeletal: back pain Skin: no complaints Neurologic: no complaints Exam/Review of Systems Vital Signs Vitals Vital Signs Date Time Temp Pulse Resp B/P Pulse Ox O2 Delivery O2 Flow Rate FiO2 12/11/16 08:04 98.1 68 16 156/71 95 12/10/16 22:13 Room Air Intake and Output 12/10/16 12/10/16 12/11/16 15:00 23:00 07:00 Intake Total 1050 ml Output Total 200 ml Balance 850 ml Exam Constitutional: alert, oriented Head: atraumatic, normocephalic Neck: supple Respiratory: clear to auscultation Cardiovascular: regular rate and rhythm Gastrointestinal: soft Musculoskeletal: nl extremities to inspection Results Result Diagram: 12/11/16 0638 12/11/16 0638 Results 24 hrs Laboratory Tests Test 12/10/16 12:00 12/10/16 15:10 12/10/16 15:20 12/10/16 15:30 White Blood Count 14.1 H Red Blood Count 4.28 L Hemoglobin 13.6 L Hematocrit 37.7 L Mean Corpuscular Volume 88.1 Mean Corpuscular Hemoglobin 31.8 Mean Corpuscular Hemoglobin Concent 36.1 Red Cell Distribution Width 14.7 H Platelet Count 112 L Mean Platelet Volume 13.7 H Neutrophils % 93.0 H Lymphocytes % 2.8 L Monocytes % 3.0 Eosinophils % 0.1 Basophils % 0.5 Nucleated Red Blood Cells % 0.0 Neutrophils # 13.1 H Lymphocytes # 0.4 L Monocytes # 0.4 Eosinophils # 0.0 Basophils # 0.1 Nucleated Red Blood Cells # 0.0 Urine Color LT. YELLOW Urine Clarity CLEAR Urine pH 6.5 Urine Specific [place] 1.015 Urine Ketones NEGATIVE Urine Nitrite NEGATIVE Urine Bilirubin NEGATIVE Urine Urobilinogen 0.2 E.U./dL Urine Leukocyte Esterase TRACE H Urine Microscopic RBC 0-2 Urine Microscopic WBC 0-2 Urine Hemoglobin 2+ H Urine Glucose NEGATIVE Urine Total Protein 2+ H Urine Opiates Screen Negative Urine Barbiturates Negative Urine Amphetamines Screen Negative Urine Benzodiazepines Screen Negative Urine Cocaine Screen Negative Urine Cannabinoids Positive Sodium Level 127 L Potassium Level 3.6 Chloride Level 79 L Carbon Dioxide Level 32 H Anion Gap 20 H Blood Urea Nitrogen 95 H Creatinine 5.81 H Glucose Level 107 Calcium Level 9.5 Total Bilirubin 0.3 Direct Bilirubin 0.00 Indirect Bilirubin 0.3 Aspartate Amino Transf (AST/SGOT) 38 Alanine Aminotransferase (ALT/SGPT) 36 Alkaline Phosphatase 84 Creatine Kinase 37 Creatinine Kinase MB (Mass) 0.80 Troponin I 0.021 Total Protein 6.4 Albumin 3.0 L Globulin 3.40 H Albumin/Globulin Ratio 0.88 Ethyl Alcohol Level < 10.0 Hemoglobin A1c 5.1 Uric Acid 4.9 Thyroid Stimulating Hormone (TSH) 3.270 Free Thyroxine 1.13 Test 12/11/16 06:38 White Blood Count 14.6 H Red Blood Count 4.14 L Hemoglobin 12.7 L Hematocrit 36.2 L Mean Corpuscular Volume 87.4 Mean Corpuscular Hemoglobin 30.7 Mean Corpuscular Hemoglobin Concent 35.1 Red Cell Distribution Width 14.9 H Platelet Count 90 L Mean Platelet Volume 12.8 H Neutrophils % 90.3 H Lymphocytes % 3.2 L Monocytes % 5.8 Eosinophils % 0.1 Basophils % 0.1 Nucleated Red Blood Cells % 0.0 Neutrophils # 13.2 H Lymphocytes # 0.5 L Monocytes # 0.9 Eosinophils # 0.0 Basophils # 0.0 Nucleated Red Blood Cells # 0.0 Prothrombin Time 14.4 H Prothrombin Time Ratio 1.1 INR International Normalized Ratio 1.12 Activated Partial Thromboplast Time 31.8 Sodium Level 128 L Potassium Level 4.3 Chloride Level 83 L Carbon Dioxide Level 28 Anion Gap 21 H Blood Urea Nitrogen 107 H Creatinine 5.55 H Glucose Level 102 Uric Acid 5.2 Calcium Level 8.5 Phosphorus Level 3.8 Magnesium Level 2.3 Total Bilirubin 0.3 Direct Bilirubin 0.00 Indirect Bilirubin 0.3 Aspartate Amino Transf (AST/SGOT) 42 Alanine Aminotransferase (ALT/SGPT) 38 Alkaline Phosphatase 92 Creatine Kinase 34 Creatine Kinase Index 3.7 Creatinine Kinase MB (Mass) 1.25 Troponin I 0.030 Total Protein 5.2 #L Albumin 2.5 L Globulin 2.70 Albumin/Globulin Ratio 0.92 Triglycerides Level 233 H Cholesterol Level 112 LDL Cholesterol, Calculated 49 HDL Cholesterol 16 L Cholesterol/HDL Ratio 7.0 Medications Medications Current Medications Ondansetron HCl (Zofran Inj) 4 mg Q6H PRN IV NAUSEA AND/OR VOMITING Last administered on 12/11/16 06:45; Admin Dose 4 MG; Start 12/10/16 at 18:00 Acetaminophen (Tylenol Tab) 650 mg Q6H PRN PO PAIN LEVEL 1-3 OR FEVER; Start at 18:00 Acetaminophen/ Hydrocodone Bitart ([place] (5/325)) 1 tab Q6H PRN PO PAIN LEVEL 4 -6; Start 12/10/16 at 18:00 Morphine Sulfate (morphine) 2 mg Q4H PRN IV PAIN LEVEL 7-10; Start 12/10/16 at 18:00 Magnesium Hydroxide (Milk Of Mag) 30 ml DAILY PRN PO CONSTIPATION; Start at 18:00 Bisacodyl (Dulcolax) 5 mg DAILY PRN PO CONSTIPATION; Start 12/10/16 at 18:00 Famotidine (Pepcid) 20 mg DAILY PO Last administered on 12/11/16 08:39; Admin Dose 20 MG; Start 12/11/16 at 09:00 Hydralazine HCl (Apresoline) 10 mg Q6H PRN IV SBP>160; Start 12/10/16 at 18:00 Metoprolol Tartrate (Lopressor) 25 mg BID PO Last administered on 12/11/16 08: 39; Admin Dose 25 MG; Start 12/10/16 at 21:00 Atorvastatin Calcium 10 mg 10 mg DAILY@21 PO Last administered on 12/10/16 21: 37; Admin Dose 10 MG; Start 12/10/16 at 21:00 Sodium Chloride (NS) 1,000 ml @ 100 mls/hr Q10H IV Last administered on 08:40; Admin Dose 100 MLS/HR; Start 12/10/16 at 18:00 Lorazepam (Ativan) 1 mg Q2H PRN IV Anxiety; Start 12/10/16 at 18:30 Chlordiazepoxide 50 mg 50 mg TID PO ; Start 12/10/16 at 21:00 Multivitamins/ Thiamine HCl/ Folic Acid/Sodium Chloride (Mvi Adult/ Vitamin B1/ Folic Acid/NS) 1,011.2 ml @ 125 mls/ hr DAILY@09 IVPB Last administered on 12/11t 08:38; Admin Dose 125 MLS/HR; Start 12/11/16 at 09:00 TORSTEN HANCOCK MD December 11, 2016 09:55
[2016-12-11] MEDS: CHLORDIAZEPOXIDE 25 MG CAP PO SCH ×2 (12:40→21:10)
--- NOTE | 2016-12-11 14:01 | PN ---
Date/Time of Note Date/Time of Note DATE: 12/11/16 TIME: 14:00 Assessment/Plan VTE Prophylaxis VTE Prophylaxis Intervention: heparin Lines/Catheters IV C[facility]ter Type (from [facility] Peripheral IV Urinary Cath still in place: No Assessment/Plan Chief Complaint/Hosp Course 1. Acute kidney injury. Etiology unclear. Continue IV hydration. Nephrology following. Avoid nephrotoxic medications. 2. Status post fall. Brain CT negative for any acute intracranial findings. Physical therapy evaluation. 3. Essential hypertension. Continue routine antihypertensives and as needed antihypertensives for any systolic blood pressure readings greater than 160 mercury. 4. Gout. Uric acid levels within normal limits. 5. Hyperlipidemia. Continue statins. Fasting lipid panel suboptimal. 6. Atrial fibrillation. The patient will be continued on beta blockers. Currently in sinus rhythm. 7. Alcohol abuse. Continue daily banana bag. Monitor for any alcohol withdrawal delirium. 8. Leukocytosis. Etiology unclear. Pancultures pending. Monitor. 9. Thrombocytopenia, most probably secondary to underlying alcohol abuse. Monitor for any bleeding. 10. Fluids, electrolytes, and nutrition. Low-cholesterol diet. 11. DVT prophylaxis. Subcutaneous heparin. 12. Gastrointestinal prophylaxis. Histamine 2 receptor blockers. 13. Plan. Continue current management. Await further recommendations from consultants. Case discussed with Dr. Carbajal. Problems: Subjective 24 Hr Interval Summary Free Text/Dictation Denies any chest pain. Exam/Review of Systems Vital Signs Vitals Vital Signs Date Time Temp Pulse Resp B/P Pulse Ox O2 Delivery O2 Flow Rate FiO2 12/11/16 12:00 98.1 65 16 157/71 93 12/10/16 22:13 Room Air Intake and Output 12/10/16 12/10/16 12/11/16 15:00 23:00 07:00 Intake Total 1050 ml Output Total 200 ml Balance 850 ml Exam GENERAL: This is a well-built, well-nourished male patient lying in bed in no apparent distress. HEENT: Head normocephalic and atraumatic. Eyes: Anicteric sclerae. Conjunctivae clear. ENT: Nasal septum is midline. Oral mucosa is dry. NECK: Supple. No JVD noticed. RESPIRATORY: Bilaterally clear to auscultation. No adventitious breath sounds. No use of accessory muscles of respiration. CARDIAC: Regular rate and rhythm. S1-S2 heard. ABDOMEN: Soft, nontender, nondistended. Bowel sounds positive in all 4 quadrants. GENITOURINARY: Deferred. EXTREMITIES: No cyanosis, no clubbing, no edema. Peripheral pulses are palpable. NEUROLOGIC: The patient is awake, alert and oriented. Cranial nerves are grossly intact. The patient moves all 4 extremities. Results Result Diagram: 12/11/16 0638 12/11/16 0638 Results 24 hrs Laboratory Tests Test 12/10/16 15:10 12/10/16 15:20 12/10/16 15:30 12/11/16 06:38 Urine Color LT. YELLOW Urine Clarity CLEAR Urine pH 6.5 Urine Specific [place] 1.015 Urine Ketones NEGATIVE Urine Nitrite NEGATIVE Urine Bilirubin NEGATIVE Urine Urobilinogen 0.2 E.U./dL Urine Leukocyte Esterase TRACE H Urine Microscopic RBC 0-2 Urine Microscopic WBC 0-2 Urine Hemoglobin 2+ H Urine Glucose NEGATIVE Urine Total Protein 2+ H Urine Opiates Screen Negative Urine Barbiturates Negative Urine Amphetamines Screen Negative Urine Benzodiazepines Screen Negative Urine Cocaine Screen Negative Urine Cannabinoids Positive Sodium Level 127 L 128 L Potassium Level 3.6 4.3 Chloride Level 79 L 83 L Carbon Dioxide Level 32 H 28 Anion Gap 20 H 21 H Blood Urea Nitrogen 95 H 107 H Creatinine 5.81 H 5.55 H Glucose Level 107 102 Calcium Level 9.5 8.5 Total Bilirubin 0.3 0.3 Direct Bilirubin 0.00 0.00 Indirect Bilirubin 0.3 0.3 Aspartate Amino Transf (AST/SGOT) 38 42 Alanine Aminotransferase (ALT/SGPT) 36 38 Alkaline Phosphatase 84 92 Creatine Kinase 37 34 Creatinine Kinase MB (Mass) 0.80 1.25 Troponin I 0.021 0.030 Total Protein 6.4 5.2 #L Albumin 3.0 L 2.5 L Globulin 3.40 H 2.70 Albumin/Globulin Ratio 0.88 0.92 Ethyl Alcohol Level < 10.0 Hemoglobin A1c 5.1 Uric Acid 4.9 5.2 Thyroid Stimulating Hormone (TSH) 3.270 Free Thyroxine 1.13 White Blood Count 14.6 H Red Blood Count 4.14 L Hemoglobin 12.7 L Hematocrit 36.2 L Mean Corpuscular Volume 87.4 Mean Corpuscular Hemoglobin 30.7 Mean Corpuscular Hemoglobin Concent 35.1 Red Cell Distribution Width 14.9 H Platelet Count 90 L Mean Platelet Volume 12.8 H Neutrophils % 90.3 H Lymphocytes % 3.2 L Monocytes % 5.8 Eosinophils % 0.1 Basophils % 0.1 Nucleated Red Blood Cells % 0.0 Neutrophils # 13.2 H Lymphocytes # 0.5 L Monocytes # 0.9 Eosinophils # 0.0 Basophils # 0.0 Nucleated Red Blood Cells # 0.0 Prothrombin Time 14.4 H Prothrombin Time Ratio 1.1 INR International Normalized Ratio 1.12 Activated Partial Thromboplast Time 31.8 Phosphorus Level 3.8 Magnesium Level 2.3 Creatine Kinase Index 3.7 Triglycerides Level 233 H Cholesterol Level 112 LDL Cholesterol, Calculated 49 HDL Cholesterol 16 L Cholesterol/HDL Ratio 7.0 Medications Medications Current Medications Ondansetron HCl (Zofran Inj) 4 mg Q6H PRN IV NAUSEA AND/OR VOMITING Last administered on 12/11/16 06:45; Admin Dose 4 MG; Start 12/10/16 at 18:00 Acetaminophen (Tylenol Tab) 650 mg Q6H PRN PO PAIN LEVEL 1-3 OR FEVER; Start at 18:00 Acetaminophen/ Hydrocodone Bitart ([place] (5/325)) 1 tab Q6H PRN PO PAIN LEVEL 4 -6; Start 12/10/16 at 18:00 Morphine Sulfate (morphine) 2 mg Q4H PRN IV PAIN LEVEL 7-10; Start 12/10/16 at 18:00 Magnesium Hydroxide (Milk Of Mag) 30 ml DAILY PRN PO CONSTIPATION; Start at 18:00 Bisacodyl (Dulcolax) 5 mg DAILY PRN PO CONSTIPATION; Start 12/10/16 at 18:00 Famotidine (Pepcid) 20 mg DAILY PO Last administered on 12/11/16 08:39; Admin Dose 20 MG; Start 12/11/16 at 09:00 Hydralazine HCl (Apresoline) 10 mg Q6H PRN IV SBP>160; Start 12/10/16 at 18:00 Metoprolol Tartrate (Lopressor) 25 mg BID PO Last administered on 12/11/16 08: 39; Admin Dose 25 MG; Start 12/10/16 at 21:00 Atorvastatin Calcium 10 mg 10 mg DAILY@21 PO Last administered on 12/10/16 21: 37; Admin Dose 10 MG; Start 12/10/16 at 21:00 Sodium Chloride (NS) 1,000 ml @ 100 mls/hr Q10H IV Last administered on 13:34; Admin Dose 100 MLS/HR; Start 12/10/16 at 18:00 Lorazepam (Ativan) 1 mg Q2H PRN IV Anxiety; Start 12/10/16 at 18:30 Chlordiazepoxide 50 mg 50 mg TID PO ; Start 12/10/16 at 21:00 Multivitamins/ Thiamine HCl/ Folic Acid/Sodium Chloride (Mvi Adult/ Vitamin B1/ Folic Acid/NS) 1,011.2 ml @ 125 mls/ hr DAILY@09 IVPB Last administered on 12/11 08:38; Admin Dose 125 MLS/HR; Start 12/11/16 at 09:00 JACK JENNINGS NP December 11, 2016 14:01
--- NOTE | 2016-12-11 15:31 | PN ---
Date/Time of Note Date/Time of Note DATE: 12/11/16 TIME: 15:25 Assessment/Plan VTE Prophylaxis VTE Prophylaxis Intervention: SCD's Lines/Catheters [facility] ([facility]): Peripheral IV Urinary Cath still in place: No Assessment/Plan Assessment/Plan 1. Acute kidney injury, possibly likely secondary to severe prerenal azotemia in the setting of persistent nausea, vomiting, beer drinking and also contribution from valsartan and naproxen, for his daily use of naproxen for his pain. 2. Hyponatremia secondary to hypovolemic hyponatremia. 3. Status post fall, which was a mechanical fall, but likely due to the hyponatremia. CT brain is negative. 4. Possible history of chronic kidney disease secondary to hypertensive nephrosclerosis. 5. History of hypertension. 6. History of gout. 7. History of hyperlipidemia. 8. Atrial fibrillation, rate controlled. 9. History of alcohol abuse. 10. Thrombocytopenia secondary to alcohol abuse. PLAN: BUN/Cr rising, pt has been using advil daily at home drinking 10 cans of beer/ day pt has h/o alcohol abuse, thrombocytopenia, will order US abdomen to r/o liver cirrhosis, , splenomegaly Bp stable afebrile had a discussion with patient about need of dialysis Subjective 24 Hr Interval Summary Free Text/Dictation getting IV fluids and banana bag, BUN still rising up, Cr still high, pt said he feels ok Exam/Review of Systems Vital Signs Vitals Vital Signs Date Time Temp Pulse Resp B/P Pulse Ox O2 Delivery O2 Flow Rate FiO2 12/11/16 12:00 98.1 65 16 157/71 93 12/10/16 22:13 Room Air Intake and Output 12/10/16 12/10/16 12/11/16 15:00 23:00 07:00 Intake Total 1050 ml Output Total 200 ml Balance 850 ml Exam GENERAL: This is a well-built, well-nourished male, lying in bed in no apparent distress. HEENT: Normocephalic, atraumatic. Pupils equal, round, reactive to light and accommodation. Conjunctivae clear. Anicteric sclerae. NECK: Supple, no JVD, no lymphadenopathy. LUNGS: Clear to auscultation bilaterally, no adventitious breath sounds. No use of accessory muscles of respiration. HEART: S1, S2, irregularly irregular. No murmur. ABDOMEN: Soft, nontender, nondistended. Bowel sounds are present in all 4 quadrants. GENITOURINARY: Deferred. EXTREMITIES: No clubbing, cyanosis, edema. Peripheral pulses are palpable. NEUROLOGICAL: The patient is awake, alert, oriented to place, person, time. Cranial nerves II through XII intact. Moves all 4 extremities. Motor strength and sensations are intact. Results Result Diagram: 12/11/16 0638 12/11/16 0638 Results 24 hrs Laboratory Tests Test 12/10/16 15:30 12/11/16 06:38 Hemoglobin A1c 5.1 Uric Acid 4.9 5.2 Thyroid Stimulating Hormone (TSH) 3.270 Free Thyroxine 1.13 White Blood Count 14.6 H Red Blood Count 4.14 L Hemoglobin 12.7 L Hematocrit 36.2 L Mean Corpuscular Volume 87.4 Mean Corpuscular Hemoglobin 30.7 Mean Corpuscular Hemoglobin Concent 35.1 Red Cell Distribution Width 14.9 H Platelet Count 90 L Mean Platelet Volume 12.8 H Neutrophils % 90.3 H Lymphocytes % 3.2 L Monocytes % 5.8 Eosinophils % 0.1 Basophils % 0.1 Nucleated Red Blood Cells % 0.0 Neutrophils # 13.2 H Lymphocytes # 0.5 L Monocytes # 0.9 Eosinophils # 0.0 Basophils # 0.0 Nucleated Red Blood Cells # 0.0 Prothrombin Time 14.4 H Prothrombin Time Ratio 1.1 INR International Normalized Ratio 1.12 Activated Partial Thromboplast Time 31.8 Sodium Level 128 L Potassium Level 4.3 Chloride Level 83 L Carbon Dioxide Level 28 Anion Gap 21 H Blood Urea Nitrogen 107 H Creatinine 5.55 H Glucose Level 102 Calcium Level 8.5 Phosphorus Level 3.8 Magnesium Level 2.3 Total Bilirubin 0.3 Direct Bilirubin 0.00 Indirect Bilirubin 0.3 Aspartate Amino Transf (AST/SGOT) 42 Alanine Aminotransferase (ALT/SGPT) 38 Alkaline Phosphatase 92 Creatine Kinase 34 Creatine Kinase Index 3.7 Creatinine Kinase MB (Mass) 1.25 Troponin I 0.030 Total Protein 5.2 #L Albumin 2.5 L Globulin 2.70 Albumin/Globulin Ratio 0.92 Triglycerides Level 233 H Cholesterol Level 112 LDL Cholesterol, Calculated 49 HDL Cholesterol 16 L Cholesterol/HDL Ratio 7.0 Medications Medications Current Medications Ondansetron HCl (Zofran Inj) 4 mg Q6H PRN IV NAUSEA AND/OR VOMITING Last administered on 12/11/16 06:45; Admin Dose 4 MG; Start 12/10/16 at 18:00 Acetaminophen (Tylenol Tab) 650 mg Q6H PRN PO PAIN LEVEL 1-3 OR FEVER; Start at 18:00 Acetaminophen/ Hydrocodone Bitart ([place] (5/325)) 1 tab Q6H PRN PO PAIN LEVEL 4 -6; Start 12/10/16 at 18:00 Morphine Sulfate (morphine) 2 mg Q4H PRN IV PAIN LEVEL 7-10; Start 12/10/16 at 18:00 Magnesium Hydroxide (Milk Of Mag) 30 ml DAILY PRN PO CONSTIPATION; Start at 18:00 Bisacodyl (Dulcolax) 5 mg DAILY PRN PO CONSTIPATION; Start 12/10/16 at 18:00 Famotidine (Pepcid) 20 mg DAILY PO Last administered on 12/11/16 08:39; Admin Dose 20 MG; Start 12/11/16 at 09:00 Hydralazine HCl (Apresoline) 10 mg Q6H PRN IV SBP>160; Start 12/10/16 at 18:00 Metoprolol Tartrate (Lopressor) 25 mg BID PO Last administered on 12/11/16 08: 39; Admin Dose 25 MG; Start 12/10/16 at 21:00 Atorvastatin Calcium 10 mg 10 mg DAILY@21 PO Last administered on 12/10/16 21: 37; Admin Dose 10 MG; Start 12/10/16 at 21:00 Sodium Chloride (NS) 1,000 ml @ 100 mls/hr Q10H IV Last administered on 13:34; Admin Dose 100 MLS/HR; Start 12/10/16 at 18:00 Lorazepam 1 mg 1 mg Q2H PRN IV Anxiety; Start 12/10/16 at 18:30 Multivitamins/ Thiamine HCl/ Folic Acid/Sodium Chloride (Mvi Adult/ Vitamin B1/ Folic Acid/NS) 1,011.2 ml @ 125 mls/ hr DAILY@09 IVPB Last administered on 12/11 08:38; Admin Dose 125 MLS/HR; Start 12/11/16 at 09:00 Heparin Sodium (Porcine) (Heparin (5000 Units/0.5 ml)) 5,000 unit BID SC ; Start 12/11/16 at 21:00 Chlordiazepoxide (Librium) 50 mg BID PO ; Start 12/11/16 at 21:00 MADELYN MIRANDA MD December 11, 2016 15:31
[2016-12-11] MEDS ORDERED: FUROSEMIDE 20 MG INJ IV ONE (16:00)
[2016-12-11] MEDS: ATORVASTATIN 10 MG TAB PO SCH (21:10)
[2016-12-11] MEDS: HEPARIN 5,000 UNIT/0.5 ML VIAL SC SCH (21:14)
[2016-12-12] VITALS (13 sets, daily range): BP systolic 143–190; BP diastolic 55–81; PULSE 70–82; RESP 14–20
[2016-12-12] MEDS: hydrALAzine 20 MG INJ IV PRN ×3 (00:04→11:47)
[2016-12-12] MEDS: SOD CHLORIDE 0.9% 1,000 ML IV SCH ×3 (03:35→20:00)
[2016-12-12 06:01] LABS: ADD SCAN DIFF NO
[2016-12-12 06:12] LABS: ABNORMAL IP MESSAGE 1; HEMATOCRIT 30.4 % (42.0-52.0); HEMOGLOBIN 10.5 g/dl (14.0-18.0); MEAN CORPUSCULAR HEMOGLOBIN 30.6 pg (29.0-33.0); MEAN CORPUSCULAR HGB CONC 34.5 g/dl (32.0-37.0); MEAN CORPUSCULAR VOLUME 88.6 fl (82.0-101.0); MEAN PLATELET VOLUME 12.5 fl (7.4-10.4); PLATELET COUNT 86 10^3/UL (140-415); RED BLOOD COUNT 3.43 10^6/ul (4.70-6.10); RED CELL DISTRIBUTION WIDTH 15.4 % (11.5-14.5); WHITE BLOOD COUNT 13.4 10^3/ul (4.8-10.8)
[2016-12-12 06:32] LABS: MAGNESIUM 2.2 mg/dl (1.7-2.5); PHOSPHORUS 3.5 mg/dl (2.5-4.9)
[2016-12-12 06:33] LABS: CREATININE 6.06 mg/dl (0.61-1.24)
[2016-12-12 06:34] LABS: CALCIUM 7.9 mg/dl (8.4-10.2)
[2016-12-12 06:56] LABS: POTASSIUM 3.7 mmol/L (3.5-5.1)
[2016-12-12] MEDS: CHLORDIAZEPOXIDE 25 MG CAP PO SCH ×2 (08:46→22:01)
[2016-12-12 11:08] LABS: LYMPHOCYTES # 0.4 10^3/ul (0.8-2.9); MONOCYTE # 0.8 10^3/ul (0.3-0.9); NEUTROPHIL # 11.7 10^3/ul (1.6-7.5)
[2016-12-12 11:09] LABS: BURR CELLS FEW
[2016-12-12] MEDS: FAMOTIDINE 20 MG TAB PO SCH (11:15)
[2016-12-12] MEDS: METOPROLOL 25 MG TAB PO SCH ×2 (11:16→22:01)
[2016-12-12] MEDS: MULTIVITAMINS 10 ML, THIAMINE 100 MG, FOLIC ACID 1 MG in SOD CHLORIDE 0.9% 1,000 ML IVPB SCH (11:16)
[2016-12-12] MEDS: HEPARIN 5,000 UNIT/0.5 ML VIAL SC SCH ×2 (11:32→22:03)
[2016-12-12] MEDS: HYDROCODONE/APAP (5/325) TAB PO PRN ×2 (11:46→18:05)
[2016-12-12] MEDS: MEROPENEM 500 MG/100 ML (PMX) 100 ML IVPB SCH ×2 (13:10→22:01)
--- NOTE | 2016-12-12 13:29 | CONS ---
DATE OF ADMISSION: 12/10/2016 DATE OF CONSULTATION: 12/12/2016 TYPE OF CONSULTATION: Infectious disease. REASON FOR CONSULTATION: Antibiotic management. HISTORY OF PRESENT ILLNESS: Leonard Mahajan is a 71-year-old male with a number of problems who come s in with weakness, status post fall and is being seen for antibiotic management. His past problems include: 1. Essential hypertension. 2. Hyperlipidemia. 3. Gout. 4. Prostate cancer. 5. Atrial fibrillation. 6. Right hip arthroplasty. 7. Prostatectomy. 8. Kyphoplasty. 9. Left knee arthroscopic surgery. 10. Appendectomy. 11. Tonsillectomy. Acutely, the patient comes in with generalized weakness, multiple episodes of vomiting and diarrhea and status post fall. He has been progressively weaker over the last 1 to 2 weeks. He also was hav ing epigastric pain associated with nausea, vomiting and diarrhea. He was recently treated for urin grant tract infection approximately 2 to 3 months ago. He has been incontinent of urine and is wearin g a pad. He denies any problems with his kidneys. Patient is an everyday drinker and drinks up to d10 cans of beer per day, last drink was on 12/07/2016 in the evening. He has some subjective fever s at home and has not taken any medication that he had a similar episode in the past year and it alka t without medical attention. The patient was noted to be in atrial fibrillation in the emergency ro om and has leukocytosis of 14.1, his H and H was 13.6 and 37.7, platelet count 112. BUN and creatin ine was 95/5.81, glucose of 107. His liver function tests were within normal limits. Urinalysis: Urine nitrite negative, urine leukocyte esterase trace, urine drug screen positive for cannabinoids. Alcohol level less than 10. Chest x-ray: No acute cardiopulmonary process and the patient has atherosclerosis. PAST MEDICAL HISTORY: As outlined. FAMILY HISTORY: Noncontributory. SOCIAL HISTORY: He lives at home. As noted, he has an everyday drinker and smokes marijuana. ALLERGIES: PENICILLIN, LATEX. MEDICATIONS: Per chart. REVIEW OF SYSTEMS: Noncontributory. PHYSICAL EXAMINATION: GENERAL: The patient is an elderly ill-appearing male who is alert, responsive, in no acute distres s. VITAL SIGNS: Stable. He is afebrile. SKIN: Without generalized rash. HEENT: Within normal limits. NECK: Supple. LYMPHATIC NODES: None palpable. CHEST: Decreased breath sounds at the bases. HEART: Without murmur or gallop. He has an irregularly irregular rhythm. ABDOMEN: Soft, nontender, without organosplenomegaly or masses. EXTREMITIES: No cyanosis, clubbing, or edema. Pulses are palpable. RECTAL AND GENITAL: Deferred. NEUROLOGIC: No focal neurological abnormalities. IMPRESSION AND PLAN: The patient comes in now with a history of significant drinking, also with carlton dence of acute kidney injury and hyponatremia. His leukocytosis has remained afebrile. He was star gaurav on meropenem, but at this point, he is afebrile. HOSPITAL COURSE: The patient is growing gram-negative rods from his urine and blood cultures. He w as seen in consultation by Dr. Juan Avalos for renal problems. He was seen by Dr. Damon fo r his atrial fibrillation and at this point, I would continue him on meropenem, which at this point is on hold. We will check with the nurses as to why though, it may be due to his renal failure. I will dictate my findings to the hospitalist and to the consultants. Dictated By: AYAD MARTINEZ MD, JD/RIKA Conf#: [id number] DID#: [id number]
--- NOTE | 2016-12-12 13:40 | RADRPT ---
PROCEDURE: US Abdomen and Retroperitoneum. CLINICAL INDICATION: Abdominal pain. Nausea and vomiting. TECHNIQUE: Multiple real-time longitudinal and transverse images were acquired of the patient's ab domen and retroperitoneum utilizing a curved array transducer. COMPARISON: Renal ultrasound dated 12/10/2016. FINDINGS: The liver is normal in size and normal in echogenicity. The liver has a normal smooth surface. Ther e is no focal hepatic lesion. Color Doppler and pulsed Doppler sonography demonstrate normal antegra de flow in the portal vein. The gallbladder is normal with no stones or wall thickening. The bile ducts are normal with the common bile duct measuring 4.7 mm in diameter. The spleen is normal in size. There is no focal splenic lesion. The pancreas is partially seen and is unremarkable. There is no free fluid. The right kidney measures 12.8 cm and the left kidney measures 9.7 cm. There is no renal mass or hydronephrosis. There are small nonobstructing bilateral renal calculi with a 1.1 cm calculus in the lower right kid mehdi and a 0.9 cm calculus in the lower left kidney. The abdominal aorta is not dilated. The inferior vena cava is unremarkable. IMPRESSION: 1. Nonobstructing bilateral renal calculi. 2. Otherwise normal ultrasound of the abdomen and retroperitoneum. RPTAT: QQ .Trung De Anda MD, MD Date Time Electronically viewed and signed by .Trung De Anda MD, on 12/12/2016 13:40 .R/
--- NOTE | 2016-12-12 14:12 | PN ---
Date/Time of Note Date/Time of Note DATE: 12/12/16 TIME: 14:10 Assessment/Plan VTE Prophylaxis VTE Prophylaxis Intervention: SCD's Lines/Catheters IV [facility] Type (from [facility]): Peripheral IV Urinary Cath still in place: No Assessment/Plan Assessment/Plan 1. Acute kidney injury, possibly likely secondary to severe prerenal azotemia in the setting of persistent nausea, vomiting, beer drinking and also contribution from valsartan and naproxen, for his daily use of naproxen for his pain. 2. Hyponatremia secondary to hypovolemic hyponatremia. 3. Status post fall, which was a mechanical fall, but likely due to the hyponatremia. CT brain is negative. 4. Possible history of chronic kidney disease secondary to hypertensive nephrosclerosis. 5. History of hypertension. 6. History of gout. 7. History of hyperlipidemia. 8. Atrial fibrillation, rate controlled. 9. History of alcohol abuse. 10. Thrombocytopenia secondary to alcohol abuse. PLAN: BUN/Cr rising,BUN 110, Cr is high also, K normal pt has h/o alcohol abuse, thrombocytopenia, will order US abdomen to r/o liver cirrhosis, , splenomegaly had a discussion with patient about need of dialysis- he agreed, Norris catheter has been ordered for tomorrow will follow up Subjective 24 Hr Interval Summary Free Text/Dictation pt BUN/Cr trendign up, His Blood cx and urine cx growing gram negative rods, US abdomen done today, 1.3 liter urine output Exam/Review of Systems Vital Signs Vitals Vital Signs Date Time Temp Pulse Resp B/P Pulse Ox O2 Delivery O2 Flow Rate FiO2 12/12/16 12:17 82 12/12/16 12:03 98.2 14 190/81 92 12/10/16 22:13 Room Air Intake and Output 12/11/16 12/11/16 12/12/16 15:00 23:00 07:00 Intake Total 1000 ml 600 ml 1580 ml Output Total 550 ml 800 ml Balance 1000 ml 50 ml 780 ml Exam GENERAL: This is a well-built, well-nourished male, lying in bed in no apparent distress. HEENT: Normocephalic, atraumatic. Pupils equal, round, reactive to light and accommodation. Conjunctivae clear. Anicteric sclerae. NECK: Supple, no JVD, no lymphadenopathy. LUNGS: Clear to auscultation bilaterally, no adventitious breath sounds. No use of accessory muscles of respiration. HEART: S1, S2, irregularly irregular. No murmur. ABDOMEN: Soft, nontender, nondistended. Bowel sounds are present in all 4 quadrants. GENITOURINARY: Deferred. EXTREMITIES: No clubbing, cyanosis, edema. Peripheral pulses are palpable. NEUROLOGICAL: The patient is awake, alert, oriented to place, person, time. Cranial nerves II through XII intact. Moves all 4 extremities. Motor strength and sensations are intact. Results Result Diagram: 12/12/1642 12/12/1642 Results 24 hrs Laboratory Tests Test 12/12/16 05:42 White Blood Count 13.4 H Red Blood Count 3.43 L Hemoglobin 10.5 L Hematocrit 30.4 L Mean Corpuscular Volume 88.6 Mean Corpuscular Hemoglobin 30.6 Mean Corpuscular Hemoglobin Concent 34.5 Red Cell Distribution Width 15.4 H Platelet Count 86 L Mean Platelet Volume 12.5 H Neutrophils % 87.0 H Band Neutrophils % 4.0 Lymphocytes % 3.0 L Monocytes % 6.0 Eosinophils % Basophils % Nucleated Red Blood Cells % Neutrophils # 11.7 H Lymphocytes # 0.4 L Monocytes # 0.8 Eosinophils # Basophils # Nucleated Red Blood Cells # Differential Comment MANUAL DIF Sodium Level 129 L Potassium Level 3.7 Chloride Level 87 L Carbon Dioxide Level 27 Anion Gap 19 H Blood Urea Nitrogen 110 H Creatinine 6.06 H Glucose Level 94 Calcium Level 7.9 L Phosphorus Level 3.5 Magnesium Level 2.2 Medications Medications Current Medications Ondansetron HCl (Zofran Inj) 4 mg Q6H PRN IV NAUSEA AND/OR VOMITING Last administered on 12/11/16 06:45; Admin Dose 4 MG; Start 12/10/16 at 18:00 Acetaminophen (Tylenol Tab) 650 mg Q6H PRN PO PAIN LEVEL 1-3 OR FEVER; Start at 18:00 Acetaminophen/ Hydrocodone Bitart ([place] (5/325)) 1 tab Q6H PRN PO PAIN LEVEL 4 -6 Last administered on 12/12/16 11:46; Admin Dose 1 TAB; Start 12/10/16 at 18:00 Morphine Sulfate (morphine) 2 mg Q4H PRN IV PAIN LEVEL 7-10; Start 12/10/16 at 18:00 Magnesium Hydroxide (Milk Of Mag) 30 ml DAILY PRN PO CONSTIPATION; Start at 18:00 Bisacodyl (Dulcolax) 5 mg DAILY PRN PO CONSTIPATION; Start 12/10/16 at 18:00 Famotidine (Pepcid) 20 mg DAILY PO Last administered on 12/12/16 11:15; Admin Dose 20 MG; Start 12/11/16 at 09:00 Hydralazine HCl (Apresoline) 10 mg Q6H PRN IV SBP>160 Last administered on 11:47; Admin Dose 10 MG; Start 12/10/16 at 18:00 Metoprolol Tartrate (Lopressor) 25 mg BID PO Last administered on 12/12/16 11: 16; Admin Dose 25 MG; Start 12/10/16 at 21:00 Atorvastatin Calcium 10 mg 10 mg DAILY@21 PO Last administered on 12/11/16 21: 10; Admin Dose 10 MG; Start 12/10/16 at 21:00 Sodium Chloride (NS) 1,000 ml @ 100 mls/hr Q10H IV Last administered on 03:35; Admin Dose 100 MLS/HR; Start 12/10/16 at 18:00 Lorazepam 1 mg 1 mg Q2H PRN IV Anxiety; Start 12/10/16 at 18:30 Multivitamins/ Thiamine HCl/ Folic Acid/Sodium Chloride (Mvi Adult/ Vitamin B1/ Folic Acid/NS) 1,011.2 ml @ 125 mls/ hr DAILY@09 IVPB Last administered on 12/12 11:16; Admin Dose 125 MLS/HR; Start 12/11/16 at 09:00 Heparin Sodium (Porcine) (Heparin (5000 Units/0.5 ml)) 5,000 unit BID SC Last administered on 12/12/16 11:32; Admin Dose 5,000 UNIT; Start 12/11/16 at 21:00 Chlordiazepoxide (Librium) 50 mg BID PO Last administered on 12/11/16 21:10; Admin Dose 50 MG; Start 12/11/16 at 21:00 Miscellaneous Information pharmacy to dose, g... ONCE XX ; Start 12/12/16 at 02: 30 Meropenem (Merrem 500 Mg/ 100 ml (Pmx)) 100 ml @ 200 mls/hr Q12 IVPB Last administered on 12/12/16t 13:10; Admin Dose 200 MLS/HR; Start 12/12/16 at 09:00; Status Future hold MADELYN MIRANDA MD December 12, 2016 14:12
--- NOTE | 2016-12-12 14:19 | CONS ---
Date/Time of Note Date/Time of Note DATE: 12/12/16 TIME: 14:18 Assessment/Plan Assessment/Plan Additional Assessment/Plan 1. Acute kidney injury, possibly likely secondary to severe prerenal azotemia in the setting of persistent nausea, vomiting, beer drinking and also contribution from valsartan and naproxen, for his daily use of naproxen for his pain. 2. Hyponatremia 3. Status post fall, which was a mechanical fall, but likely due to the hyponatremia. CT brain is negative. 4. Possible history of chronic kidney disease secondary to hypertensive nephrosclerosis. 5. History of hypertension. 6. History of gout. 7. History of hyperlipidemia. 8. Atrial fibrillation, rate controlled. 9. History of alcohol abuse. 10. Thrombocytopenia secondary to alcohol abuse. PLAN: BUN/Cr rising,BUN 110, Cr is high also, K normal pt has bacteremia with blood cx growing gram neg rods, if no improvement in renal functin then we will have IR to place temporary danielle HD catheter and plan for HD tomorrow pt has h/o alcohol abuse, thrombocytopenia, will order US abdomen to r/o liver cirrhosis, , splenomegaly had a discussion with patient about need of dialysis- he agreed for it and will plan for it Consultation Date/Type/Reason Admit Date/Time December 10, 2016 at 16:57 Initial Consult Date Type of Consultation: NEPHROLOGY 24 HR Interval Summary Free Text/Dictation BUN/Cr still rising, had a good urine output but BUN>110 Exam/Review of Systems Vital Signs Vitals Vital Signs Date Time Temp Pulse Resp B/P Pulse Ox O2 Delivery O2 Flow Rate FiO2 12/12/16 12:17 82 12/12/16 12:03 98.2 14 190/81 92 12/10/16 22:13 Room Air Intake and Output 12/11/16 12/11/16 12/12/16 15:00 23:00 07:00 Intake Total 1000 ml 600 ml 1580 ml Output Total 550 ml 800 ml Balance 1000 ml 50 ml 780 ml Exam GENERAL: This is a well-built, well-nourished male, lying in bed in no apparent distress. HEENT: Normocephalic, atraumatic. Pupils equal, round, reactive to light and accommodation. Conjunctivae clear. Anicteric sclerae. NECK: Supple, no JVD, no lymphadenopathy. LUNGS: Clear to auscultation bilaterally, no adventitious breath sounds. No use of accessory muscles of respiration. HEART: S1, S2, irregularly irregular. No murmur. ABDOMEN: Soft, nontender, nondistended. Bowel sounds are present in all 4 quadrants. GENITOURINARY: Deferred. EXTREMITIES: No clubbing, cyanosis, edema. Peripheral pulses are palpable. NEUROLOGICAL: The patient is awake, alert, oriented to place, person, time. Cranial nerves II through XII intact. Moves all 4 extremities. Motor strength and sensations are intact. Results Result Diagram: 12/12/16 0542 12/12/16 0542 Results 24 hrs Laboratory Tests Test 12/12/16 05:42 White Blood Count 13.4 H Red Blood Count 3.43 L Hemoglobin 10.5 L Hematocrit 30.4 L Mean Corpuscular Volume 88.6 Mean Corpuscular Hemoglobin 30.6 Mean Corpuscular Hemoglobin Concent 34.5 Red Cell Distribution Width 15.4 H Platelet Count 86 L Mean Platelet Volume 12.5 H Neutrophils % 87.0 H Band Neutrophils % 4.0 Lymphocytes % 3.0 L Monocytes % 6.0 Eosinophils % Basophils % Nucleated Red Blood Cells % Neutrophils # 11.7 H Lymphocytes # 0.4 L Monocytes # 0.8 Eosinophils # Basophils # Nucleated Red Blood Cells # Differential Comment MANUAL DIF Sodium Level 129 L Potassium Level 3.7 Chloride Level 87 L Carbon Dioxide Level 27 Anion Gap 19 H Blood Urea Nitrogen 110 H Creatinine 6.06 H Glucose Level 94 Calcium Level 7.9 L Phosphorus Level 3.5 Magnesium Level 2.2 Medications Medications Current Medications Ondansetron HCl (Zofran Inj) 4 mg Q6H PRN IV NAUSEA AND/OR VOMITING Last administered on 12/11/16 06:45; Admin Dose 4 MG; Start 12/10/16 at 18:00 Acetaminophen (Tylenol Tab) 650 mg Q6H PRN PO PAIN LEVEL 1-3 OR FEVER; Start at 18:00 Acetaminophen/ Hydrocodone Bitart ([place] (5/325)) 1 tab Q6H PRN PO PAIN LEVEL 4 -6 Last administered on 12/12/16 11:46; Admin Dose 1 TAB; Start 12/10/16 at 18:00 Morphine Sulfate (morphine) 2 mg Q4H PRN IV PAIN LEVEL 7-10; Start 12/10/16 at 18:00 Magnesium Hydroxide (Milk Of Mag) 30 ml DAILY PRN PO CONSTIPATION; Start at 18:00 Bisacodyl (Dulcolax) 5 mg DAILY PRN PO CONSTIPATION; Start 12/10/16 at 18:00 Famotidine (Pepcid) 20 mg DAILY PO Last administered on 12/12/16 11:15; Admin Dose 20 MG; Start 12/11/16 at 09:00 Hydralazine HCl (Apresoline) 10 mg Q6H PRN IV SBP>160 Last administered on 11:47; Admin Dose 10 MG; Start 12/10/16 at 18:00 Metoprolol Tartrate (Lopressor) 25 mg BID PO Last administered on 12/12/16 11: 16; Admin Dose 25 MG; Start 12/10/16 at 21:00 Atorvastatin Calcium 10 mg 10 mg DAILY@21 PO Last administered on 12/11/16 21: 10; Admin Dose 10 MG; Start 12/10/16 at 21:00 Sodium Chloride (NS) 1,000 ml @ 100 mls/hr Q10H IV Last administered on 03:35; Admin Dose 100 MLS/HR; Start 12/10/16 at 18:00 Lorazepam 1 mg 1 mg Q2H PRN IV Anxiety; Start 12/10/16 at 18:30 Multivitamins/ Thiamine HCl/ Folic Acid/Sodium Chloride (Mvi Adult/ Vitamin B1/ Folic Acid/NS) 1,011.2 ml @ 125 mls/ hr DAILY@09 IVPB Last administered on 12/12 11:16; Admin Dose 125 MLS/HR; Start 12/11/16 at 09:00 Heparin Sodium (Porcine) (Heparin (5000 Units/0.5 ml)) 5,000 unit BID SC Last administered on 12/12/16 11:32; Admin Dose 5,000 UNIT; Start 12/11/16 at 21:00 Chlordiazepoxide (Librium) 50 mg BID PO Last administered on 12/11/16 21:10; Admin Dose 50 MG; Start 12/11/16 at 21:00 Miscellaneous Information pharmacy to dose, g... ONCE XX ; Start 12/12/16 at 02: 30 Meropenem (Merrem 500 Mg/ 100 ml (Pmx)) 100 ml @ 200 mls/hr Q12 IVPB Last administered on 12/12/16t 13:10; Admin Dose 200 MLS/HR; Start 12/12/16 at 09:00; Status Future hold MADELYN MIRANDA MD December 12, 2016 14:19
--- NOTE | 2016-12-12 14:33 | PN ---
Date/Time of Note Date/Time of Note DATE: 12/12/16 TIME: 14:30 Assessment/Plan VTE Prophylaxis VTE Prophylaxis Intervention: heparin Lines/Catheters IV Catheter Type (from [facility]): Peripheral IV Urinary Cath still in place: No Assessment/Plan Chief Complaint/Hosp Course 1. Acute kidney injury. Etiology unclear. Continue IV hydration. Nephrology following. Avoid nephrotoxic medications. 2. Status post fall. Brain CT negative for any acute intracranial findings. Physical therapy evaluation. 3. Essential hypertension. Continue routine antihypertensives and as needed antihypertensives for any systolic blood pressure readings greater than 160 mercury. 4. Gout. Uric acid levels within normal limits. 5. Sepsis with underlying urinary tract infection and gram-negative bacteremia. The patient on antibiotics. Infectious disease consult will be called. No evidence of septic shock. 6. Hyperlipidemia. Continue statins. Fasting lipid panel suboptimal. 7. Atrial fibrillation. The patient will be continued on beta blockers. Currently in sinus rhythm. 8. Alcohol abuse. Continue daily banana bag. Monitor for any alcohol withdrawal delirium. 9. Thrombocytopenia, most probably secondary to underlying alcohol abuse. Monitor for any bleeding. 10. Hyponatremia. Improving. The patient being followed by nephrology. 11. Fluids, electrolytes, and nutrition. Low-cholesterol diet. 12. DVT prophylaxis. Subcutaneous heparin. 13. Gastrointestinal prophylaxis. Histamine 2 receptor blockers. 14. Plan. Obtain infectious diseases consult. Worsening renal function. Case discussed with Dr. Carbajal. Case discussed with nephrology. Problems: Subjective 24 Hr Interval Summary Free Text/Dictation Complains of low back pain. Exam/Review of Systems Vital Signs Vitals Vital Signs Date Time Temp Pulse Resp B/P Pulse Ox O2 Delivery O2 Flow Rate FiO2 12/12/16 13:00 73 148/55 12/12/16 12:03 98.2 14 92 12/10/16 22:13 Room Air Intake and Output 12/11/16 12/11/16 12/12/16 15:00 23:00 07:00 Intake Total 1000 ml 600 ml 1580 ml Output Total 550 ml 800 ml Balance 1000 ml 50 ml 780 ml Exam GENERAL: This is a well-built, well-nourished male patient lying in bed in no apparent distress. HEENT: Head normocephalic and atraumatic. Eyes: Anicteric sclerae. Conjunctivae clear. ENT: Nasal septum is midline. Oral mucosa is dry. NECK: Supple. No JVD noticed. RESPIRATORY: Bilaterally clear to auscultation. No adventitious breath sounds. No use of accessory muscles of respiration. CARDIAC: Regular rate and rhythm. S1-S2 heard. ABDOMEN: Soft, nontender, nondistended. Bowel sounds positive in all 4 quadrants. GENITOURINARY: Deferred. EXTREMITIES: No cyanosis, no clubbing, no edema. Peripheral pulses are palpable. NEUROLOGIC: The patient is awake, alert and oriented. Cranial nerves are grossly intact. The patient moves all 4 extremities. Results Result Diagram: 12/12/16 0542 12/12/16 0542 Results 24 hrs Laboratory Tests Test 12/12/16 05:42 White Blood Count 13.4 H Red Blood Count 3.43 L Hemoglobin 10.5 L Hematocrit 30.4 L Mean Corpuscular Volume 88.6 Mean Corpuscular Hemoglobin 30.6 Mean Corpuscular Hemoglobin Concent 34.5 Red Cell Distribution Width 15.4 H Platelet Count 86 L Mean Platelet Volume 12.5 H Neutrophils % 87.0 H Band Neutrophils % 4.0 Lymphocytes % 3.0 L Monocytes % 6.0 Eosinophils % Basophils % Nucleated Red Blood Cells % Neutrophils # 11.7 H Lymphocytes # 0.4 L Monocytes # 0.8 Eosinophils # Basophils # Nucleated Red Blood Cells # Differential Comment MANUAL DIF Sodium Level 129 L Potassium Level 3.7 Chloride Level 87 L Carbon Dioxide Level 27 Anion Gap 19 H Blood Urea Nitrogen 110 H Creatinine 6.06 H Glucose Level 94 Calcium Level 7.9 L Phosphorus Level 3.5 Magnesium Level 2.2 Medications Medications Current Medications Ondansetron HCl (Zofran Inj) 4 mg Q6H PRN IV NAUSEA AND/OR VOMITING Last administered on 12/11/16 06:45; Admin Dose 4 MG; Start 12/10/16 at 18:00 Acetaminophen (Tylenol Tab) 650 mg Q6H PRN PO PAIN LEVEL 1-3 OR FEVER; Start at 18:00 Acetaminophen/ Hydrocodone Bitart ([place] (5/325)) 1 tab Q6H PRN PO PAIN LEVEL 4 -6 Last administered on 12/12/16 11:46; Admin Dose 1 TAB; Start 12/10/16 at 18:00 Morphine Sulfate (morphine) 2 mg Q4H PRN IV PAIN LEVEL 7-10; Start 12/10/16 at 18:00 Magnesium Hydroxide (Milk Of Mag) 30 ml DAILY PRN PO CONSTIPATION; Start at 18:00 Bisacodyl (Dulcolax) 5 mg DAILY PRN PO CONSTIPATION; Start 12/10/16 at 18:00 Famotidine (Pepcid) 20 mg DAILY PO Last administered on 12/12/16 11:15; Admin Dose 20 MG; Start 12/11/16 at 09:00 Hydralazine HCl (Apresoline) 10 mg Q6H PRN IV SBP>160 Last administered on 11:47; Admin Dose 10 MG; Start 12/10/16 at 18:00 Metoprolol Tartrate (Lopressor) 25 mg BID PO Last administered on 12/12/16 11: 16; Admin Dose 25 MG; Start 12/10/16 at 21:00 Atorvastatin Calcium 10 mg 10 mg DAILY@21 PO Last administered on 12/11/16 21: 10; Admin Dose 10 MG; Start 12/10/16 at 21:00 Sodium Chloride (NS) 1,000 ml @ 100 mls/hr Q10H IV Last administered on 03:35; Admin Dose 100 MLS/HR; Start 12/10/16 at 18:00 Lorazepam 1 mg 1 mg Q2H PRN IV Anxiety; Start 12/10/16 at 18:30 Multivitamins/ Thiamine HCl/ Folic Acid/Sodium Chloride (Mvi Adult/ Vitamin B1/ Folic Acid/NS) 1,011.2 ml @ 125 mls/ hr DAILY@09 IVPB Last administered on 12/12 11:16; Admin Dose 125 MLS/HR; Start 12/11/16 at 09:00 Heparin Sodium (Porcine) (Heparin (5000 Units/0.5 ml)) 5,000 unit BID SC Last administered on 12/12/16 11:32; Admin Dose 5,000 UNIT; Start 12/11/16 at 21:00 Chlordiazepoxide (Librium) 50 mg BID PO Last administered on 12/11/16 21:10; Admin Dose 50 MG; Start 12/11/16 at 21:00 Miscellaneous Information pharmacy to dose, g... ONCE XX ; Start 12/12/16 at 02: 30 Meropenem (Merrem 500 Mg/ 100 ml (Pmx)) 100 ml @ 200 mls/hr Q12 IVPB Last administered on 12/12/16t 13:10; Admin Dose 200 MLS/HR; Start 12/12/16 at 09:00; Status Future hold JACK JENNINGS NP December 12, 2016 14:33
--- NOTE | 2016-12-12 14:50 | CONS ---
Date/Time of Note Date/Time of Note DATE: 12/12/16 TIME: 14:48 Assessment/Plan Assessment/Plan Additional Assessment/Plan Acute kidney injury Status post fall Atrial fibrillation, converted into SR History of hypertension Recent UTI -Patient currently in sinus rhythm with frequent PACs. Ideally maintain potassium above 4.0 and magnesium above 2.0. Continue beta-anjelica. Discussion had with the patient regarding anticoagulation. There is a history of alcohol use and he does feel unsteady on his feet at times. Would hold off on initiation at the current time. Consultation Date/Type/Reason Admit Date/Time December 10, 2016 at 16:57 Initial Consult Date Type of Consultation: cv 24 HR Interval Summary Free Text/Dictation Denies chest pain, shortness of breath. Less fatigue Exam/Review of Systems Vital Signs Vitals Vital Signs Date Time Temp Pulse Resp B/P Pulse Ox O2 Delivery O2 Flow Rate FiO2 12/12/16 13:00 73 148/55 12/12/16 12:03 98.2 14 92 12/10/16 22:13 Room Air Intake and Output 12/11/16 12/11/16 12/12/16 15:00 23:00 07:00 Intake Total 1000 ml 600 ml 1580 ml Output Total 550 ml 800 ml Balance 1000 ml 50 ml 780 ml Exam No apparent distress Constitutional: alert, oriented Head: normocephalic Respiratory: other (Coarse breath sounds bilaterally, no wheezing) Cardiovascular: other (S1-S2 heard), regular rate and rhythm Gastrointestinal: bowel sounds, non-tender, soft Extremities: edema (Trace) Results Result Diagram: 12/12/16 0542 12/12/16 0542 Results 24 hrs Laboratory Tests Test 12/12/16 05:42 White Blood Count 13.4 H Red Blood Count 3.43 L Hemoglobin 10.5 L Hematocrit 30.4 L Mean Corpuscular Volume 88.6 Mean Corpuscular Hemoglobin 30.6 Mean Corpuscular Hemoglobin Concent 34.5 Red Cell Distribution Width 15.4 H Platelet Count 86 L Mean Platelet Volume 12.5 H Neutrophils % 87.0 H Band Neutrophils % 4.0 Lymphocytes % 3.0 L Monocytes % 6.0 Eosinophils % Basophils % Nucleated Red Blood Cells % Neutrophils # 11.7 H Lymphocytes # 0.4 L Monocytes # 0.8 Eosinophils # Basophils # Nucleated Red Blood Cells # Differential Comment MANUAL DIF Sodium Level 129 L Potassium Level 3.7 Chloride Level 87 L Carbon Dioxide Level 27 Anion Gap 19 H Blood Urea Nitrogen 110 H Creatinine 6.06 H Glucose Level 94 Calcium Level 7.9 L Phosphorus Level 3.5 Magnesium Level 2.2 Medications Medications Current Medications Ondansetron HCl (Zofran Inj) 4 mg Q6H PRN IV NAUSEA AND/OR VOMITING Last administered on 12/11/16 06:45; Admin Dose 4 MG; Start 12/10/16 at 18:00 Acetaminophen (Tylenol Tab) 650 mg Q6H PRN PO PAIN LEVEL 1-3 OR FEVER; Start at 18:00 Acetaminophen/ Hydrocodone Bitart ([place] (5/325)) 1 tab Q6H PRN PO PAIN LEVEL 4 -6 Last administered on 12/12/16 11:46; Admin Dose 1 TAB; Start 12/10/16 at 18:00 Morphine Sulfate (morphine) 2 mg Q4H PRN IV PAIN LEVEL 7-10; Start 12/10/16 at 18:00 Magnesium Hydroxide (Milk Of Mag) 30 ml DAILY PRN PO CONSTIPATION; Start at 18:00 Bisacodyl (Dulcolax) 5 mg DAILY PRN PO CONSTIPATION; Start 12/10/16 at 18:00 Famotidine (Pepcid) 20 mg DAILY PO Last administered on 12/12/16 11:15; Admin Dose 20 MG; Start 12/11/16 at 09:00 Hydralazine HCl (Apresoline) 10 mg Q6H PRN IV SBP>160 Last administered on 11:47; Admin Dose 10 MG; Start 12/10/16 at 18:00 Metoprolol Tartrate (Lopressor) 25 mg BID PO Last administered on 12/12/16 11: 16; Admin Dose 25 MG; Start 12/10/16 at 21:00 Atorvastatin Calcium 10 mg 10 mg DAILY@21 PO Last administered on 12/11/16 21: 10; Admin Dose 10 MG; Start 12/10/16 at 21:00 Sodium Chloride (NS) 1,000 ml @ 100 mls/hr Q10H IV Last administered on 03:35; Admin Dose 100 MLS/HR; Start 12/10/16 at 18:00 Lorazepam 1 mg 1 mg Q2H PRN IV Anxiety; Start 12/10/16 at 18:30 Multivitamins/ Thiamine HCl/ Folic Acid/Sodium Chloride (Mvi Adult/ Vitamin B1/ Folic Acid/NS) 1,011.2 ml @ 125 mls/ hr DAILY@09 IVPB Last administered on 12/12 11:16; Admin Dose 125 MLS/HR; Start 12/11/16 at 09:00 Heparin Sodium (Porcine) (Heparin (5000 Units/0.5 ml)) 5,000 unit BID SC Last administered on 12/12/16 11:32; Admin Dose 5,000 UNIT; Start 12/11/16 at 21:00 Chlordiazepoxide (Librium) 50 mg BID PO Last administered on 12/11/16 21:10; Admin Dose 50 MG; Start 12/11/16 at 21:00 Miscellaneous Information pharmacy to dose, g... ONCE XX ; Start 12/12/16 at 02: 30 Meropenem (Merrem 500 Mg/ 100 ml (Pmx)) 100 ml @ 200 mls/hr Q12 IVPB Last administered on 12/12/16 13:10; Admin Dose 200 MLS/HR; Start 12/12/16 at 09:00; Status Future hold Zeyad Kelly DO December 12, 2016 14:50
--- NOTE | 2016-12-12 15:52 | RADRPT ---
Echocardiogram Report Patient Name: ADAM SHORT Gender: Male Date: 1945 Study Date: 11-Dec-2016 [employer]: [facility] Location: [id number] Ref. Physician: JACK JENNINGS Quality: Technically Difficult Study Procedures: Transthoracic echocardiogram with complete 2D, M-Mode, and doppler examination. Indications: Evaluate Left Ventricular function. 2D/M Mode Doppler Measurement Value Normal Ranges Measurement Value Normal Ranges LVIDd 2D 2.9 3.5 - 5.6 cm AV Peak Rosalio 1.4 m/sec LVIDs 2D 2.3 2.1 - 4.1 cm AV Peak PG 7.7 mmHg LVPWd 2D 1.3 0.6 - 1.1 cm LVOT Peak Rosalio 1.1 m/sec IVSd 2D 1.3 0.6 - 1.1 cm LVOT Peak PG 4.4 mmHg AoR Diam 2D 2.2 2.0 - 3.7 cm MV E Peak Rosalio 0.8 m/sec EDV 2D 31.6 cm3 MV A Peak Rosalio 0.5 m/sec ESV 2D 13.0 cm3 MV E/A 1.5 LA Dimen 2D 4.0 2.3 - 4.0 cm MV Decel Time 189 msec MV Decel Crane 4 MV E/A 1.5 Findings Left Ventricle: Normal left ventricular systolic function. Normal left ventricular cavity size. Mild concentric left ventricular hypertrophy. Ejection fraction is visually estimated at 60 %. Abnormal Diastolic Function. Right Ventricle: Normal right ventricular size. Normal right ventricular systolic function. Left Atrium: The left atrium is normal in size. LA Dimension4.00 cm. Right Atrium: The right atrium is normal in size. Mitral Valve: Mild mitral leaflet calcification. Mild mitral annular calcification. Trace mitral regurgitation. Aortic Valve: No hemodynamically significant aortic stenosis by doppler. Aortic cusps appear mildly calcified. Trace aortic valve regurgitation. Tricuspid Valve: Normal appearance and function of the tricuspid valve with trace physiologic regurgitation. Pulmonic Valve: There is trace pulmonic regurgitation. Pericardium: Normal pericardium with no significant pericardial effusion. Aorta: Normal aortic root. IVC: Normal size and normal respiratory collapse consistent with normal right atrial pressure. Conclusions 1.Normal left ventricular systolic function. Normal left ventricular cavity size. Mild concentric left ventricular hypertrophy. Ejection fraction is visually estimated at 60 %. Abnormal Diastolic Function. 2.Normal right ventricular size. Normal right ventricular systolic function. 3.The left atrium is normal in size. 4.The right atrium is normal in size. 5.No significant valvular stenosis or regurgitation seen. 6.Normal pericardium with no significant pericardial effusion. Electronically Signed By: Zeyad Kelly 12-Dec-2016 15:51:57 -0700 Patient Name: ADAM SHORT Study Date: 11-Dec-2016 [id number]
[2016-12-12] MEDS: ATORVASTATIN 10 MG TAB PO SCH (22:01)
[2016-12-12 22:35] LABS: PROTEIN/CREAT RATIO 1.09 RATIO
[2016-12-13] VITALS (20 sets, daily range): BP systolic 106–168; BP diastolic 41–79; PULSE 59–115; RESP 17–20
[2016-12-13] MEDS: SOD CHLORIDE 0.9% 1,000 ML IV SCH ×2 (06:00→15:46)
[2016-12-13 07:14] LABS: ADD SCAN DIFF NO
[2016-12-13 07:19] LABS: ABNORMAL IP MESSAGE 1; BASOPHILS % 0.1 % (0.0-2.0); EOSINOPHILS % 0.2 % (0.0-7.0); HEMOGLOBIN 11.3 g/dl (14.0-18.0); LYMPHOCYTES # 0.8 10^3/ul (0.8-2.9); LYMPHOCYTES % 3.9 % (15.0-51.0); MEAN CORPUSCULAR HEMOGLOBIN 30.9 pg (29.0-33.0); MEAN CORPUSCULAR HGB CONC 34.2 g/dl (32.0-37.0); MEAN CORPUSCULAR VOLUME 90.2 fl (82.0-101.0); MEAN PLATELET VOLUME 12.2 fl (7.4-10.4); MONOCYTE # 0.8 10^3/ul (0.3-0.9); MONOCYTES % 3.8 % (0.0-11.0); NEUTROPHIL # 18.5 10^3/ul (1.6-7.5); PLATELET COUNT 97 10^3/UL (140-415); RED BLOOD COUNT 3.66 10^6/ul (4.70-6.10); RED CELL DISTRIBUTION WIDTH 15.9 % (11.5-14.5); WHITE BLOOD COUNT 20.4 10^3/ul (4.8-10.8)
[2016-12-13 07:22] LABS: NEUTROPHILS % 90.6 % (39.0-77.0)
[2016-12-13 07:34] LABS: POTASSIUM 3.9 mmol/L (3.5-5.1)
[2016-12-13 07:37] LABS: CREATININE 6.22 mg/dl (0.61-1.24)
[2016-12-13 07:38] LABS: CALCIUM 7.8 mg/dl (8.4-10.2)
[2016-12-13 08:05] LABS: MAGNESIUM 2.3 mg/dl (1.7-2.5); PHOSPHORUS 3.7 mg/dl (2.5-4.9)
[2016-12-13] MEDS: MEROPENEM 500 MG/100 ML (PMX) 100 ML IVPB SCH (08:36)
[2016-12-13] MEDS: MULTIVITAMINS 10 ML, THIAMINE 100 MG, FOLIC ACID 1 MG in SOD CHLORIDE 0.9% 1,000 ML IVPB SCH (08:36)
[2016-12-13] MEDS: HEPARIN 5,000 UNIT/0.5 ML VIAL SC SCH ×2 (08:38→22:11)
[2016-12-13] MEDS: FAMOTIDINE 20 MG TAB PO SCH (08:39)
[2016-12-13] MEDS: METOPROLOL 25 MG TAB PO SCH ×2 (08:39→22:09)
[2016-12-13] MEDS: HYDROCODONE/APAP (5/325) TAB PO PRN ×3 (08:40→14:11)
[2016-12-13] MEDS: CHLORDIAZEPOXIDE 25 MG CAP PO SCH ×2 (08:53→22:09)
--- NOTE | 2016-12-13 10:21 | PN ---
Date/Time of Note Date/Time of Note DATE: 12/13/16 TIME: 10:09 Assessment/Plan VTE Prophylaxis VTE Prophylaxis Intervention: heparin Lines/Catheters IV C[facility]ter Type (from [facility]): Peripheral IV Urinary Cath still in place: No Assessment/Plan Chief Complaint/Hosp Course Acute assessment and plan 1. Acute renal insufficiency. Tentative plan for Norris catheter placement. Follow-up with nephrology recommendations considering dialysis. 2. Status post fall. Brain CT was negative for any acute intrarenal findings. Physical therapy to follow. Patient noted with lower back pain. Follow-up on imaging. 3. Essential hypertension. Continue antihypertensives and adjust as needed 4. Reported history of gout. No active issue at this time we will monitor for now. 5. Sepsis with underlying urinary tract infection with Proteus mirabilis. Continue antibiotics per ID recommendations 6. Dyslipidemia. Continue statin medication 7. History of atrial fibrillation. Continue to beta-anjelica. Remains stable at present. 8. Alcohol abuse. Monitor for now. Alcohol cessation advised. 9. Normocytic anemia. Likely secondary to alcohol abuse. S&S of bleeding. Monitor for now. DVT prophylaxis: Heparin Disposition plan: Tentative plan for Norris catheter placement. Follow-up with back imaging. Analgesics as needed. Physical therapy to follow. Discussed plan of care with Dr. Barnett Problems: Subjective 24 Hr Interval Summary Free Text/Dictation Reports having some low back pain. Otherwise no other specific complaints. Exam/Review of Systems Vital Signs Vitals Vital Signs Date Time Temp Pulse Resp B/P Pulse Ox O2 Delivery O2 Flow Rate FiO2 12/13/16 08:00 79 12/13/16 07:38 98.1 17 161/68 95 12/10/16 22:13 Room Air Intake and Output 12/12/16 12/12/16 12/13/16 15:00 23:00 07:00 Intake Total 900 ml 1250 ml Output Total 500 ml 450 ml Balance 400 ml 800 ml Exam Constitutional: alert, oriented Psych: nl mood/affect Head: normocephalic Eyes: nl conjunctiva Neck: non-tender, supple, No jvd Respiratory: clear to auscultation, normal air movement Cardiovascular: regular rate and rhythm Gastrointestinal: non-tender, soft Extremities: normal pulses Neurological: [employer]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, nl mental status, nl speech Skin: nl turgor Results Result Diagram: 12/13/16 0551 12/13/16 0551 Results 24 hrs Laboratory Tests Test 12/12/16 16:00 12/12/16 22:15 12/13/16 05:51 Urine Collection Duration 24 Urine Total Volume (Protein) 1300 Urine Total Protein 24 Hour 494.0 H Urine Eosinophils % 0.0 Urine Random Creatinine 44.67 Urine Random Sodium 34 Urine Protein/Creatinine Ratio 1.09 Urine Total Protein 49.0 H White Blood Count 20.4 #H Red Blood Count 3.66 L Hemoglobin 11.3 L Hematocrit 33.0 L Mean Corpuscular Volume 90.2 Mean Corpuscular Hemoglobin 30.9 Mean Corpuscular Hemoglobin Concent 34.2 Red Cell Distribution Width 15.9 H Platelet Count 97 L Mean Platelet Volume 12.2 H Neutrophils % 90.6 H Lymphocytes % 3.9 L Monocytes % 3.8 Eosinophils % 0.2 Basophils % 0.1 Nucleated Red Blood Cells % 0.0 Neutrophils # 18.5 H Lymphocytes # 0.8 Monocytes # 0.8 Eosinophils # 0.0 Basophils # 0.0 Nucleated Red Blood Cells # 0.0 Sodium Level 129 L Potassium Level 3.9 Chloride Level 90 L Carbon Dioxide Level 25 Anion Gap 18 H Blood Urea Nitrogen 107 H Creatinine 6.22 H Glucose Level 91 Calcium Level 7.8 L Phosphorus Level 3.7 Magnesium Level 2.3 Medications Medications Current Medications Ondansetron HCl (Zofran Inj) 4 mg Q6H PRN IV NAUSEA AND/OR VOMITING Last administered on 12/11/16 06:45; Admin Dose 4 MG; Start 12/10/16 at 18:00 Acetaminophen (Tylenol Tab) 650 mg Q6H PRN PO PAIN LEVEL 1-3 OR FEVER; Start at 18:00 Acetaminophen/ Hydrocodone Bitart ([place] (5/325)) 1 tab Q6H PRN PO PAIN LEVEL 4 -6 Last administered on 12/13/16 08:40; Admin Dose 1 TAB; Start 12/10/16 at 18:00 Morphine Sulfate (morphine) 2 mg Q4H PRN IV PAIN LEVEL 7-10; Start 12/10/16 at 18:00 Magnesium Hydroxide (Milk Of Mag) 30 ml DAILY PRN PO CONSTIPATION; Start at 18:00 Bisacodyl (Dulcolax) 5 mg DAILY PRN PO CONSTIPATION; Start 12/10/16 at 18:00 Famotidine (Pepcid) 20 mg DAILY PO Last administered on 12/13/16 08:39; Admin Dose 20 MG; Start 12/11/16 at 09:00 Hydralazine HCl (Apresoline) 10 mg Q6H PRN IV SBP>160 Last administered on 11:47; Admin Dose 10 MG; Start 12/10/16 at 18:00 Metoprolol Tartrate (Lopressor) 25 mg BID PO Last administered on 12/13/16 08: 39; Admin Dose 25 MG; Start 12/10/16 at 21:00 Atorvastatin Calcium 10 mg 10 mg DAILY@21 PO Last administered on 12/12/16 22: 01; Admin Dose 10 MG; Start 12/10/16 at 21:00 Sodium Chloride (NS) 1,000 ml @ 100 mls/hr Q10H IV Last administered on 06:00; Admin Dose 100 MLS/HR; Start 12/10/16 at 18:00 Lorazepam 1 mg 1 mg Q2H PRN IV Anxiety; Start 12/10/16 at 18:30 Multivitamins/ Thiamine HCl/ Folic Acid/Sodium Chloride (Mvi Adult/ Vitamin B1/ Folic Acid/NS) 1,011.2 ml @ 125 mls/ hr DAILY@09 IVPB Last administered on 12/13 08:36; Admin Dose 125 MLS/HR; Start 12/11/16 at 09:00 Heparin Sodium (Porcine) (Heparin (5000 Units/0.5 ml)) 5,000 unit BID SC Last administered on 12/13/16 08:38; Admin Dose 5,000 UNIT; Start 12/11/16 at 21:00 Chlordiazepoxide (Librium) 50 mg BID PO Last administered on 12/12/16 22:01; Admin Dose 50 MG; Start 12/11/16 at 21:00 Miscellaneous Information pharmacy to dose, g... ONCE XX ; Start 12/12/16 at 02: 30 Meropenem (Merrem 500 Mg/ 100 ml (Pmx)) 100 ml @ 200 mls/hr Q12 IVPB Last administered on 12/13/16 08:36; Admin Dose 200 MLS/HR; Start 5/7/17 at 09:00; Status Future hold REGIDOR,SANJAY December 13, 2016 10:21 SANJAY ANDREA December 13, 2016 10:21
--- NOTE | 2016-12-13 11:47 | CONS ---
Date/Time of Note Date/Time of Note DATE: 12/13/16 TIME: 11:46 Assessment/Plan Assessment/Plan Additional Assessment/Plan Acute kidney injury Status post fall Sepsis Atrial fibrillation, converted into SR History of hypertension Recent UTI -Patient remains in sinus rhythm with frequent PACs. Continue beta-anjelica. renal function is not improved. Also now with Proteus bacteremia, no anticoagulation at the current time given patient plan for procedures, history of alcohol use with fall risk Consultation Date/Type/Reason Admit Date/Time December 10, 2016 at 16:57 Type of Consultation: cv 24 HR Interval Summary Free Text/Dictation Denies shortness of breath, palpitations, complaining of back pain Exam/Review of Systems Vital Signs Vitals Vital Signs Date Time Temp Pulse Resp B/P Pulse Ox O2 Delivery O2 Flow Rate FiO2 12/13/16 08:00 79 12/13/16 07:38 98.1 17 161/68 95 12/10/16 22:13 Room Air Intake and Output 12/12/16 12/12/16 12/13/16 15:00 23:00 07:00 Intake Total 900 ml 1250 ml Output Total 500 ml 450 ml Balance 400 ml 800 ml Exam Undergoing physical therapy Constitutional: alert, oriented Head: normocephalic Respiratory: other (Coarse breath sounds bilaterally, no wheezing) Cardiovascular: other (S1-S2 heard), regular rate and rhythm Gastrointestinal: bowel sounds, non-tender, soft Extremities: edema Results Result Diagram: 12/13/16 0551 12/13/16 0551 Results 24 hrs Laboratory Tests Test 12/12/16 16:00 12/12/16 22:15 12/13/16 05:51 Urine Collection Duration 24 Urine Total Volume (Protein) 1300 Urine Total Protein 24 Hour 494.0 H Urine Eosinophils % 0.0 Urine Random Creatinine 44.67 Urine Random Sodium 34 Urine Protein/Creatinine Ratio 1.09 Urine Total Protein 49.0 H White Blood Count 20.4 #H Red Blood Count 3.66 L Hemoglobin 11.3 L Hematocrit 33.0 L Mean Corpuscular Volume 90.2 Mean Corpuscular Hemoglobin 30.9 Mean Corpuscular Hemoglobin Concent 34.2 Red Cell Distribution Width 15.9 H Platelet Count 97 L Mean Platelet Volume 12.2 H Neutrophils % 90.6 H Lymphocytes % 3.9 L Monocytes % 3.8 Eosinophils % 0.2 Basophils % 0.1 Nucleated Red Blood Cells % 0.0 Neutrophils # 18.5 H Lymphocytes # 0.8 Monocytes # 0.8 Eosinophils # 0.0 Basophils # 0.0 Nucleated Red Blood Cells # 0.0 Sodium Level 129 L Potassium Level 3.9 Chloride Level 90 L Carbon Dioxide Level 25 Anion Gap 18 H Blood Urea Nitrogen 107 H Creatinine 6.22 H Glucose Level 91 Calcium Level 7.8 L Phosphorus Level 3.7 Magnesium Level 2.3 Medications Medications Current Medications Ondansetron HCl (Zofran Inj) 4 mg Q6H PRN IV NAUSEA AND/OR VOMITING Last administered on 12/11/16 06:45; Admin Dose 4 MG; Start 12/10/16 at 18:00 Acetaminophen (Tylenol Tab) 650 mg Q6H PRN PO PAIN LEVEL 1-3 OR FEVER; Start at 18:00 Morphine Sulfate (morphine) 2 mg Q4H PRN IV PAIN LEVEL 7-10; Start 12/10/16 at 18:00 Magnesium Hydroxide (Milk Of Mag) 30 ml DAILY PRN PO CONSTIPATION; Start at 18:00 Bisacodyl (Dulcolax) 5 mg DAILY PRN PO CONSTIPATION; Start 12/10/16 at 18:00 Famotidine (Pepcid) 20 mg DAILY PO Last administered on 12/13/16 08:39; Admin Dose 20 MG; Start 12/11/16 at 09:00 Hydralazine HCl (Apresoline) 10 mg Q6H PRN IV SBP>160 Last administered on 11:47; Admin Dose 10 MG; Start 12/10/16 at 18:00 Metoprolol Tartrate (Lopressor) 25 mg BID PO Last administered on 12/13/16 08: 39; Admin Dose 25 MG; Start 12/10/16 at 21:00 Atorvastatin Calcium 10 mg 10 mg DAILY@21 PO Last administered on 12/12/16 22: 01; Admin Dose 10 MG; Start 12/10/16 at 21:00 Sodium Chloride (NS) 1,000 ml @ 100 mls/hr Q10H IV Last administered on 06:00; Admin Dose 100 MLS/HR; Start 12/10/16 at 18:00 Lorazepam 1 mg 1 mg Q2H PRN IV Anxiety; Start 12/10/16 at 18:30 Multivitamins/ Thiamine HCl/ Folic Acid/Sodium Chloride (Mvi Adult/ Vitamin B1/ Folic Acid/NS) 1,011.2 ml @ 125 mls/ hr DAILY@09 IVPB Last administered on 12/13 08:36; Admin Dose 125 MLS/HR; Start 12/11/16 at 09:00 Heparin Sodium (Porcine) (Heparin (5000 Units/0.5 ml)) 5,000 unit BID SC Last administered on 12/13/16 08:38; Admin Dose 5,000 UNIT; Start 12/11/16 at 21:00 Chlordiazepoxide (Librium) 50 mg BID PO Last administered on 12/12/16 22:01; Admin Dose 50 MG; Start 12/11/16 at 21:00 Miscellaneous Information pharmacy to dose, g... ONCE XX ; Start 12/12/16 at 02: 30 Meropenem (Merrem 500 Mg/ 100 ml (Pmx)) 100 ml @ 200 mls/hr Q12 IVPB Last administered on 12/13/16 08:36; Admin Dose 200 MLS/HR; Start 12/12/16 at 09:00; Status Future hold Acetaminophen/ Hydrocodone Bitart ([place] (5/325)) 2 tab Q4H PRN PO pain; Start 12/13/16 at 10:30 Zeyad Kelly DO December 13, 2016 11:47
--- NOTE | 2016-12-13 12:18 | CONS ---
Date/Time of Note Date/Time of Note DATE: 12/13/16 TIME: 12:13 Assessment/Plan Assessment/Plan Additional Assessment/Plan 1. Acute kidney injury, multifactorial, not improving despite being on IVF hydration, BUN/Cr persistently high ,. 2. Hyponatremia 3. Status post fall, which was a mechanical fall, but likely due to the hyponatremia. CT brain is negative. 4. Possible history of chronic kidney disease secondary to hypertensive nephrosclerosis. 5. History of hypertension. 6. History of gout. 7. History of hyperlipidemia. 8. Atrial fibrillation, rate controlled. 9. History of alcohol abuse. 10. Thrombocytopenia secondary to alcohol abuse. PLAN: BUN/Cr rising,BUN 110, Cr is high also, K normal Blood cx and Urine cx grew proteus not improving renal funciton BUN still high, will plan for danielle and HD initiation will follow up Consultation Date/Type/Reason Admit Date/Time December 10, 2016 at 16:57 Type of Consultation: NEPHROLOGY Reason for Consultation acute kidney injury, Severe hyponatremia Referring Provider: CLOVIS SHORE 24 HR Interval Summary Free Text/Dictation Na still high, BUN/Cr persistently remained elevated, BP stable, no chest pain, blood cx grew proteus Exam/Review of Systems Vital Signs Vitals Vital Signs Date Time Temp Pulse Resp B/P Pulse Ox O2 Delivery O2 Flow Rate FiO2 12/13/16 12:04 76 12/13/16 11:51 97.8 18 148/65 93 12/10/16 22:13 Room Air Intake and Output 12/12/16 12/12/16 12/13/16 15:00 23:00 07:00 Intake Total 900 ml 1250 ml Output Total 500 ml 450 ml Balance 400 ml 800 ml Exam GENERAL: alert, awake no acute distress LUNGS: Clear to auscultation bilaterally, no adventitious breath sounds. No use of accessory muscles of respiration. HEART: S1, S2, irregularly irregular. No murmur. ABDOMEN: Soft, nontender, nondistended. Bowel sounds are present in all 4 quadrants. EXTREMITIES: No clubbing, cyanosis, edema. Peripheral pulses are palpable. Results Result Diagram: 12/13/16 0551 12/13/16 0551 Results 24 hrs Laboratory Tests Test 12/12/16 16:00 12/12/16 22:15 12/13/16 05:51 Urine Collection Duration 24 Urine Total Volume (Protein) 1300 Urine Total Protein 24 Hour 494.0 H Urine Eosinophils % 0.0 Urine Random Creatinine 44.67 Urine Random Sodium 34 Urine Protein/Creatinine Ratio 1.09 Urine Total Protein 49.0 H White Blood Count 20.4 #H Red Blood Count 3.66 L Hemoglobin 11.3 L Hematocrit 33.0 L Mean Corpuscular Volume 90.2 Mean Corpuscular Hemoglobin 30.9 Mean Corpuscular Hemoglobin Concent 34.2 Red Cell Distribution Width 15.9 H Platelet Count 97 L Mean Platelet Volume 12.2 H Neutrophils % 90.6 H Lymphocytes % 3.9 L Monocytes % 3.8 Eosinophils % 0.2 Basophils % 0.1 Nucleated Red Blood Cells % 0.0 Neutrophils # 18.5 H Lymphocytes # 0.8 Monocytes # 0.8 Eosinophils # 0.0 Basophils # 0.0 Nucleated Red Blood Cells # 0.0 Sodium Level 129 L Potassium Level 3.9 Chloride Level 90 L Carbon Dioxide Level 25 Anion Gap 18 H Blood Urea Nitrogen 107 H Creatinine 6.22 H Glucose Level 91 Calcium Level 7.8 L Phosphorus Level 3.7 Magnesium Level 2.3 Medications Medications Current Medications Ondansetron HCl (Zofran Inj) 4 mg Q6H PRN IV NAUSEA AND/OR VOMITING Last administered on 12/11/16 06:45; Admin Dose 4 MG; Start 12/10/16 at 18:00 Acetaminophen (Tylenol Tab) 650 mg Q6H PRN PO PAIN LEVEL 1-3 OR FEVER; Start at 18:00 Morphine Sulfate (morphine) 2 mg Q4H PRN IV PAIN LEVEL 7-10; Start 12/10/16 at 18:00 Magnesium Hydroxide (Milk Of Mag) 30 ml DAILY PRN PO CONSTIPATION; Start at 18:00 Bisacodyl (Dulcolax) 5 mg DAILY PRN PO CONSTIPATION; Start 12/10/16 at 18:00 Famotidine (Pepcid) 20 mg DAILY PO Last administered on 12/13/16 08:39; Admin Dose 20 MG; Start 12/11/16 at 09:00 Hydralazine HCl (Apresoline) 10 mg Q6H PRN IV SBP>160 Last administered on 11:47; Admin Dose 10 MG; Start 12/10/16 at 18:00 Metoprolol Tartrate (Lopressor) 25 mg BID PO Last administered on 12/13/16 08: 39; Admin Dose 25 MG; Start 12/10/16 at 21:00 Atorvastatin Calcium 10 mg 10 mg DAILY@21 PO Last administered on 12/12/16 22: 01; Admin Dose 10 MG; Start 12/10/16 at 21:00 Sodium Chloride (NS) 1,000 ml @ 100 mls/hr Q10H IV Last administered on 06:00; Admin Dose 100 MLS/HR; Start 12/10/16 at 18:00 Lorazepam 1 mg 1 mg Q2H PRN IV Anxiety; Start 12/10/16 at 18:30 Multivitamins/ Thiamine HCl/ Folic Acid/Sodium Chloride (Mvi Adult/ Vitamin B1/ Folic Acid/NS) 1,011.2 ml @ 125 mls/ hr DAILY@09 IVPB Last administered on 12/13 08:36; Admin Dose 125 MLS/HR; Start 12/11/16 at 09:00 Heparin Sodium (Porcine) (Heparin (5000 Units/0.5 ml)) 5,000 unit BID SC Last administered on 12/13/16 08:38; Admin Dose 5,000 UNIT; Start 12/11/16 at 21:00 Chlordiazepoxide (Librium) 50 mg BID PO Last administered on 12/12/16 22:01; Admin Dose 50 MG; Start 12/11/16 at 21:00 Miscellaneous Information pharmacy to dose, g... ONCE XX ; Start 12/12/16 at 02: 30 Meropenem (Merrem 500 Mg/ 100 ml (Pmx)) 100 ml @ 200 mls/hr Q12 IVPB Last administered on 12/13/16 08:36; Admin Dose 200 MLS/HR; Start 12/12/16 at 09:00; Status Future hold Acetaminophen/ Hydrocodone Bitart ([place] (5/325)) 2 tab Q4H PRN PO pain; Start 12/13/16 at 10:30 MADELYN MIRANDA MD December 13, 2016 12:18
[2016-12-13 12:23] LABS: HAAIG REFLEX REFLEX FILED
--- NOTE | 2016-12-13 13:17 | RADRPT ---
PROCEDURE: XR Lumbar Spine. CLINICAL INDICATION: Lumbar spine pain status post recent fall. TECHNIQUE: AP and lateral view of the lumbar spine were obtained. COMPARISON: No prior studies are available for comparison. FINDINGS: There is a mild amount of motion artifact as well as poor visualization due to the patient's osteope shaheed. There is a mild right convex scoliosis of the thoracolumbar junction with levo convexity cente red at L4-5. There are anterior osteophytes from L1-S1 with moderate to severe narrowing of the int ervertebral disc spaces at L4-5 and L5-S1. There are moderate associated discogenic endplate change s at these levels. There is diffuse moderate osteopenia. There is a 30% compression deformity of th e L1 vertebral body status post kyphoplasty with methylmethacrylate in place. There is a 20% compre ssion deformity of the T11 vertebral body. There is suggestion of a 10% compression deformity of th e L2 vertebral body.. There is severe facet spondylosis at L3-4, L4-5 and L5-S1 with suggestion of neural foraminal narrowing at these levels. The remaining neural foramina appear patent. The layton levi soft tissues unremarkable. There is no evidence of fracture. There is moderate atherosclerosis of the abdominal aorta without evidence of aneurysm formation. IMPRESSION: 1. 30% compression deformity of the L1 vertebral body status post kyphoplasty, with flow methacryla te in place. 2. 20% compression deformity of the T11 vertebral body and 10% compression deformity of the L2 vert ebral body, age indeterminate. CT is recommended for further evaluation. 3. Severe degenerative disc disease at L4-5 and L5-S1. 2. Severe facet spondylosis at L3-4, L4-5 and L5-S1 with suggestion of neural foraminal narrowing a t these levels. RPTAT: DD .Neto Sprague MD, Date Time Electronically viewed and signed by .Neto Sprague MD, MD on 12/13/2016 13:16 .S/
[2016-12-13 13:21] LABS: HEPATITIS B CORE ANTIBODY NEGATIVE (NEGATIVE)
[2016-12-13] MEDS ORDERED: ERTAPENEM SODIUM 1 GM in SOD CHLORIDE 0.9% 100 ML IVPB SCH (14:00)
[2016-12-13] MEDS ORDERED: DILTIAZEM 25 MG INJ IV ONE (15:30)
[2016-12-13] MEDS ORDERED: SOD CHLORIDE 0.9% 100 ML ONE (16:06)
[2016-12-13] MEDS ORDERED: HEPARIN 1000 UNITS/ML 10 ML INJ ONE (16:06)
[2016-12-13] MEDS ORDERED: AMIODARONE 150MG/D5W BOLUS 100 ML IV ONE (16:30)
--- NOTE | 2016-12-13 16:33 | PN ---
DATE: 12/13/2016 SUBJECTIVE: Patient is alert, looks comfortable. Denies pain, no fevers. Vital signs stable. WBC today 20.4, neutrophils 90.6, platelets 97. BUN 107, creatinine 6.22. MICROBIOLOGY: Blood and urine culture growing Proteus mirabilis susceptible to all antibiotics. ANTIMICROBIALS: The patient is on meropenem. DIAGNOSTICS: Ultrasound of the abdomen revealed nonobstructive bilateral renal calculi. Chest x-ra y showed no acute cardiopulmonary process. CT of the brain on admission revealed no acute intracran ial pathology. Renal ultrasound revealed no evidence of obstructive uropathy. PHYSICAL EXAMINATION: GENERAL: Obese well-developed, middle-aged man who is alert, in no distress. HEENT: Head atraumatic, normocephalic. Sclerae anicteric. Buccal mucosa dry. NECK: Supple, trachea midline. CHEST: Rise symmetrical. Breath sounds clear. HEART: S1, S2. ABDOMEN: Soft, bowel tones present. EXTREMITIES: Without cyanosis. ASSESSMENT: 1. Sepsis with acute encephalopathy on admission, acute renal failure. 2. Proteus mirabilis urinary tract infection with bacteremia. 3. Acute kidney failure, questionable chronic kidney disease. 4. History of gout. 5. Hypertension. 6. Atrial fibrillation. 7. History of alcohol abuse. PLAN: We are going to change antibiotics to Invanz. Repeat blood cultures. The patient is schedul ed for Norris placement and plan to start him on hemodialysis. He is being followed by multiple co nsultants. Dictated By: CHERRIE JAUREGUI [employer] B[employer]ET MAKER for AYAD RUIZ/NTS Conf#: [id number] DID#: [id number]
--- NOTE | 2016-12-13 17:49 | RADRPT ---
PROCEDURE: PLACEMENT OF RIGHT INTERNAL JUGULAR VENOUS TEMPORARY DIALYSIS CATHETER . CLINICAL INDICATION: Renal failure. TECHNIQUE: Informed consent was obtained. The risks including bleeding and infection were explained to the pat ient. The patient understood and was willing to proceed. A procedural pause was performed. The nate butterfield's name, date of , and procedure to be performed were verified. Limited sonography of the right neck was performed. Noted is a patent right internal jugular vein. The central line was inse rted with all elements of maximal sterile barrier technique. All of the following were used: head co vering, facial mask, sterile gown, sterile gloves, a large sterile sheet, hand hygiene, and 2% chlo rhexidine for cutaneous antisepsis. The right neck and anterior superior chest wall was prepped and draped in the usual sterile fashion. Using local anesthesia, sterile technique, and ultrasound guidance, a 20-gauge needle was advanced i nto the right internal jugular vein in the supraclavicular region. The 0.018 inch floppy tip guidew edwin was advanced through the needle into the superior vena cava with fluoroscopic guidance. A 5-Fab nch sheath was advanced over the guidewire. The guidewire was removed and a 0.035 inch Amplatz wire was advanced into the superior vena cava, then the right atrium. Serial dilatation was performed t o 12 Setswana. The temporary dialysis catheter was then advanced over the guidewire such that the tip was placed in the right atrium. A 16 cm long, 11.5 Setswana Mahurkar temporary dialysis catheter was used. Tip position was confirmed in the right atrium with fluoroscopy. The two ports were each fl ushed with 1.5 ml of 1:1000 heparin. The catheter was secured to the skin with 2-0 monofilament. The site was dressed. The patient tolerated the procedure well. COMPARISON: None. FINDINGS: Ultrasound images were recorded and stored in the patient's medical record. Final radiographic images demonstrate the tip of the catheter in the upper right atrium. A total of 0.1 minutes of fluoroscopy time was used. The ultrasound images demonstrate the needle entering th e internal jugular vein. IMPRESSION: 1. Satisfactory insertion of right internal jugular vein temporary dialysis catheter with ultrasoun d and fluoroscopic guidance. RPTAT: QQ .Trung De Anda MD, MD Date Time Electronically viewed and signed by .Trung De Anda MD, MD on 12/13/2016 17:49 .R/
[2016-12-13] MEDS: ATORVASTATIN 10 MG TAB PO SCH (22:09)
[2016-12-14] VITALS (21 sets, daily range): BP systolic 123–172; BP diastolic 60–94; PULSE 70–155; RESP 19–20
[2016-12-14] MEDS: SOD CHLORIDE 0.9% 1,000 ML IV SCH ×2 (03:31→12:00)
[2016-12-14] MEDS: HYDROCODONE/APAP (5/325) TAB PO PRN (05:38)
[2016-12-14 07:39] LABS: ABNORMAL IP MESSAGE 1; ADD SCAN DIFF NO; BASOPHILS % 0.1 % (0.0-2.0); EOSINOPHILS # 0.1 10^3/ul (0.0-0.5); EOSINOPHILS % 0.5 % (0.0-7.0); HEMATOCRIT 25.6 % (42.0-52.0); LYMPHOCYTES # 0.5 10^3/ul (0.8-2.9); MEAN CORPUSCULAR HEMOGLOBIN 31.1 pg (29.0-33.0); MEAN CORPUSCULAR HGB CONC 35.2 g/dl (32.0-37.0); MEAN CORPUSCULAR VOLUME 88.6 fl (82.0-101.0); MEAN PLATELET VOLUME 12.1 fl (7.4-10.4); MONOCYTE # 0.6 10^3/ul (0.3-0.9); MONOCYTES % 4.2 % (0.0-11.0); NEUTROPHIL # 13.7 10^3/ul (1.6-7.5); NEUTROPHILS % 90.8 % (39.0-77.0); PLATELET COUNT 102 10^3/UL (140-415); RED BLOOD COUNT 2.89 10^6/ul (4.70-6.10); RED CELL DISTRIBUTION WIDTH 15.5 % (11.5-14.5); WHITE BLOOD COUNT 15.1 10^3/ul (4.8-10.8)
[2016-12-14 08:12] LABS: CALCIUM 7.3 mg/dl (8.4-10.2); CREATININE 5.03 mg/dl (0.61-1.24); POTASSIUM 3.7 mmol/L (3.5-5.1)
--- NOTE | 2016-12-14 10:45 | PN ---
Date/Time of Note Date/Time of Note DATE: 12/14/16 TIME: 10:43 Assessment/Plan VTE Prophylaxis VTE Prophylaxis Intervention: heparin Lines/Catheters IV Catheter Type (from Nrs): Saline Lock Urinary Cath still in place: No Assessment/Plan Chief Complaint/Hosp Course Acute assessment and plan 1. Acute renal insufficiency. Status post Norris catheter placement. Continue on dialysis per nephrology recommendation 2. Status post fall. Brain CT was negative for any acute intrarenal findings. Physical therapy to follow. Continue with analgesics for pain 3. Essential hypertension. Continue antihypertensives and adjust as needed. Stable 4. Reported history of gout. No active issue at this time we will monitor for now. 5. Sepsis with underlying urinary tract infection with Proteus mirabilis. Continue antibiotics per ID recommendations 6. Dyslipidemia. Continue statin medication 7. History of atrial fibrillation. Continue to beta-anjelica. Seen in [facility]. fib today. 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 Follow-up with input 8. Alcohol abuse. Monitor for now. Alcohol cessation was advised. 9. Normocytic anemia. Likely secondary to alcohol abuse. S&S of bleeding. Monitor for now. DVT prophylaxis: Heparin Disposition plan: Continue on dialysis. Monitor for clinical improvement of renal function. Discharge when medically stable Discussed plan of care with Dr. Barnett Problems: Subjective 24 Hr Interval Summary Free Text/Dictation Comfortable at present. Seen in [facility]. [facility] Exam/Review of Systems Vital Signs Vitals Vital Signs Date Time Temp Pulse Resp B/P Pulse Ox O2 Delivery O2 Flow Rate FiO2 12/14/16 10:13 152 12/14/16 07:43 98.3 19 131/60 92 12/10/16 22:13 Room Air Intake and Output 12/13/16 12/13/16 12/14/16 15:00 23:00 07:00 Intake Total 100 ml 750 ml 1400 ml Output Total 2000 ml 700 ml Balance 100 ml -1250 ml 700 ml Exam Constitutional: alert, oriented Psych: nl mood/affect Head: normocephalic Neck: supple, No jvd Respiratory: clear to auscultation Cardiovascular: irregular rhythm Gastrointestinal: non-tender, soft Musculoskeletal: swelling (Bilateral lower extremities minimal) 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 II-XII intact, nl mental status, nl speech Skin: nl turgor Results Result Diagram: 12/14/16 0702 12/14/16 0702 Results 24 hrs Laboratory Tests Test 12/13/16 12:23 12/14/16 07:02 Hepatitis A IgM Antibody NON-REACTIVE White Blood Count 15.1 #H Red Blood Count 2.89 #L Hemoglobin 9.0 #L Hematocrit 25.6 #L Mean Corpuscular Volume 88.6 Mean Corpuscular Hemoglobin 31.1 Mean Corpuscular Hemoglobin Concent 35.2 Red Cell Distribution Width 15.5 H Platelet Count 102 L Mean Platelet Volume 12.1 H Neutrophils % 90.8 H Lymphocytes % 3.0 L Monocytes % 4.2 Eosinophils % 0.5 Basophils % 0.1 Nucleated Red Blood Cells % 0.0 Neutrophils # 13.7 H Lymphocytes # 0.5 L Monocytes # 0.6 Eosinophils # 0.1 Basophils # 0.0 Nucleated Red Blood Cells # 0.0 Sodium Level 128 L Potassium Level 3.7 Chloride Level 97 Carbon Dioxide Level 25 Anion Gap 10 # Blood Urea Nitrogen 78 H Creatinine 5.03 H Glucose Level 100 Calcium Level 7.3 L Medications Medications Current Medications Ondansetron HCl (Zofran Inj) 4 mg Q6H PRN IV NAUSEA AND/OR VOMITING Last administered on 12/11/16 06:45; Admin Dose 4 MG; Start 12/10/16 at 18:00 Acetaminophen (Tylenol Tab) 650 mg Q6H PRN PO PAIN LEVEL 1-3 OR FEVER; Start at 18:00 Morphine Sulfate (morphine) 2 mg Q4H PRN IV PAIN LEVEL 7-10; Start 12/10/16 at 18:00 Magnesium Hydroxide (Milk Of Mag) 30 ml DAILY PRN PO CONSTIPATION; Start at 18:00 Bisacodyl (Dulcolax) 5 mg DAILY PRN PO CONSTIPATION; Start 12/10/16 at 18:00 Famotidine (Pepcid) 20 mg DAILY PO Last administered on 12/13/16 08:39; Admin Dose 20 MG; Start 12/11/16 at 09:00 Hydralazine HCl (Apresoline) 10 mg Q6H PRN IV SBP>160 Last administered on 11:47; Admin Dose 10 MG; Start 12/10/16 at 18:00 Metoprolol Tartrate (Lopressor) 25 mg BID PO Last administered on 12/13/16 22: 09; Admin Dose 25 MG; Start 12/10/16 at 21:00 Atorvastatin Calcium 10 mg 10 mg DAILY@21 PO Last administered on 12/13/16 22: 09; Admin Dose 10 MG; Start 12/10/16 at 21:00 Sodium Chloride (NS) 1,000 ml @ 100 mls/hr Q10H IV Last administered on 03:31; Admin Dose 100 MLS/HR; Start 12/10/16 at 18:00 Lorazepam 1 mg 1 mg Q2H PRN IV Anxiety; Start 12/10/16 at 18:30 Multivitamins/ Thiamine HCl/ Folic Acid/Sodium Chloride (Mvi Adult/ Vitamin B1/ Folic Acid/NS) 1,011.2 ml @ 125 mls/ hr DAILY@09 IVPB Last administered on 12/13 08:36; Admin Dose 125 MLS/HR; Start 12/11/16 at 09:00 Heparin Sodium (Porcine) (Heparin (5000 Units/0.5 ml)) 5,000 unit BID SC Last administered on 12/13/16 22:11; Admin Dose 5,000 UNIT; Start 12/11/16 at 21:00 Chlordiazepoxide (Librium) 50 mg BID PO Last administered on 12/13/16 22:09; Admin Dose 50 MG; Start 12/11/16 at 21:00 Miscellaneous Information (* Miscellaneous Pharmacy Order) pharmacy to dose, g... ONCE XX ; Start 12/12/16 at 02:30 Acetaminophen/ Hydrocodone Bitart 2 tab 2 tab Q4H PRN PO pain Last administered on 12/14/16 05:38; Admin Dose 2 TAB; Start 12/13/16 at 10:30 Ertapenem/Sodium Chloride (Invanz/NS) 100 ml @ 200 mls/hr Q24H IVPB Last administered on 12/13/16 14:10; Admin Dose 200 MLS/HR; Start 12/13/16 at 14:00 SANJAY ANDREA December 14, 2016 10:45 SANJAY ANDREA December 14, 2016 10:45
--- NOTE | 2016-12-14 12:31 | CONS ---
Date/Time of Note Date/Time of Note DATE: 12/14/16 TIME: 12:29 Assessment/Plan Assessment/Plan Additional Assessment/Plan 1. Acute kidney injury, multifactorial, not improving despite being on IVF hydration, BUN/Cr persistently high ,.started on HD during this admission 2. Hyponatremia 3. Status post fall, which was a mechanical fall, but likely due to the hyponatremia. CT brain is negative. 4. Possible history of chronic kidney disease secondary to hypertensive nephrosclerosis. 5. History of hypertension. 6. History of gout. 7. History of hyperlipidemia. 8. Atrial fibrillation, rate controlled. 9. History of alcohol abuse. 10. Thrombocytopenia secondary to alcohol abuse. PLAN: BUN/Cr rising,BUN 110, Cr is high also,sarted on HD yesterday through right iJ danielle HD catheter , s/p HD yesterday and today Blood cx and Urine cx grew proteus will follow up Consultation Date/Type/Reason Admit Date/Time December 10, 2016 at 16:57 Type of Consultation: NEPHROLOGY Referring Provider: CLOVIS SHORE 24 HR Interval Summary Free Text/Dictation s/p HD yesterday and today Exam/Review of Systems Vital Signs Vitals Vital Signs Date Time Temp Pulse Resp B/P Pulse Ox O2 Delivery O2 Flow Rate FiO2 12/14/16 12:05 155 12/14/16 11:49 98.4 20 148/68 96 12/10/16 22:13 Room Air Intake and Output 12/13/16 12/13/16 12/14/16 15:00 23:00 07:00 Intake Total 100 ml 750 ml 1400 ml Output Total 2000 ml 700 ml Balance 100 ml -1250 ml 700 ml Exam GENERAL: alert, awake no acute distress LUNGS: Clear to auscultation bilaterally, no adventitious breath sounds. No use of accessory muscles of respiration. HEART: S1, S2, irregularly irregular. No murmur. ABDOMEN: Soft, nontender, nondistended. Bowel sounds are present in all 4 quadrants. EXTREMITIES: No clubbing, cyanosis, edema. Peripheral pulses are palpable. Results Result Diagram: 12/14/16 0702 12/14/16 0702 Results 24 hrs Laboratory Tests Test 12/14/16 07:02 White Blood Count 15.1 #H Red Blood Count 2.89 #L Hemoglobin 9.0 #L Hematocrit 25.6 #L Mean Corpuscular Volume 88.6 Mean Corpuscular Hemoglobin 31.1 Mean Corpuscular Hemoglobin Concent 35.2 Red Cell Distribution Width 15.5 H Platelet Count 102 L Mean Platelet Volume 12.1 H Neutrophils % 90.8 H Lymphocytes % 3.0 L Monocytes % 4.2 Eosinophils % 0.5 Basophils % 0.1 Nucleated Red Blood Cells % 0.0 Neutrophils # 13.7 H Lymphocytes # 0.5 L Monocytes # 0.6 Eosinophils # 0.1 Basophils # 0.0 Nucleated Red Blood Cells # 0.0 Sodium Level 128 L Potassium Level 3.7 Chloride Level 97 Carbon Dioxide Level 25 Anion Gap 10 # Blood Urea Nitrogen 78 H Creatinine 5.03 H Glucose Level 100 Calcium Level 7.3 L Medications Medications Current Medications Ondansetron HCl (Zofran Inj) 4 mg Q6H PRN IV NAUSEA AND/OR VOMITING Last administered on 12/11/16 06:45; Admin Dose 4 MG; Start 12/10/16 at 18:00 Acetaminophen (Tylenol Tab) 650 mg Q6H PRN PO PAIN LEVEL 1-3 OR FEVER; Start at 18:00 Morphine Sulfate (morphine) 2 mg Q4H PRN IV PAIN LEVEL 7-10; Start 12/10/16 at 18:00 Magnesium Hydroxide (Milk Of Mag) 30 ml DAILY PRN PO CONSTIPATION; Start at 18:00 Bisacodyl (Dulcolax) 5 mg DAILY PRN PO CONSTIPATION; Start 12/10/16 at 18:00 Famotidine (Pepcid) 20 mg DAILY PO Last administered on 12/13/16 08:39; Admin Dose 20 MG; Start 12/11/16 at 09:00 Hydralazine HCl (Apresoline) 10 mg Q6H PRN IV SBP>160 Last administered on 11:47; Admin Dose 10 MG; Start 12/10/16 at 18:00 Metoprolol Tartrate (Lopressor) 25 mg BID PO Last administered on 12/13/16 22: 09; Admin Dose 25 MG; Start 12/10/16 at 21:00 Atorvastatin Calcium 10 mg 10 mg DAILY@21 PO Last administered on 12/13/16 22: 09; Admin Dose 10 MG; Start 12/10/16 at 21:00 Sodium Chloride (NS) 1,000 ml @ 100 mls/hr Q10H IV Last administered on 03:31; Admin Dose 100 MLS/HR; Start 12/10/16 at 18:00 Lorazepam 1 mg 1 mg Q2H PRN IV Anxiety; Start 12/10/16 at 18:30 Multivitamins/ Thiamine HCl/ Folic Acid/Sodium Chloride (Mvi Adult/ Vitamin B1/ Folic Acid/NS) 1,011.2 ml @ 125 mls/ hr DAILY@09 IVPB Last administered on 12/13 08:36; Admin Dose 125 MLS/HR; Start 12/11/16 at 09:00 Heparin Sodium (Porcine) (Heparin (5000 Units/0.5 ml)) 5,000 unit BID SC Last administered on 12/13/16 22:11; Admin Dose 5,000 UNIT; Start 12/11/16 at 21:00 Chlordiazepoxide (Librium) 50 mg BID PO Last administered on 12/13/16 22:09; Admin Dose 50 MG; Start 12/11/16 at 21:00 Miscellaneous Information (* Miscellaneous Pharmacy Order) pharmacy to dose, g... ONCE XX ; Start 12/12/16 at 02:30 Acetaminophen/ Hydrocodone Bitart 2 tab 2 tab Q4H PRN PO pain Last administered on 12/14/16 05:38; Admin Dose 2 TAB; Start 12/13/16 at 10:30 Ertapenem/Sodium Chloride (Invanz/NS) 100 ml @ 200 mls/hr Q24H IVPB Last administered on 12/13/16 14:10; Admin Dose 200 MLS/HR; Start 12/13/16 at 14:00 MADELYN MIRANDA MD December 14, 2016 12:31
[2016-12-14] MEDS: MULTIVITAMINS 10 ML, THIAMINE 100 MG, FOLIC ACID 1 MG in SOD CHLORIDE 0.9% 1,000 ML IVPB SCH (12:42)
[2016-12-14] MEDS: CHLORDIAZEPOXIDE 25 MG CAP PO SCH ×2 (12:42→21:42)
[2016-12-14] MEDS: HEPARIN 5,000 UNIT/0.5 ML VIAL SC SCH ×2 (12:44→21:44)
[2016-12-14] MEDS: FAMOTIDINE 20 MG TAB PO SCH (12:44)
[2016-12-14] MEDS: METOPROLOL 25 MG TAB PO SCH ×2 (12:45→21:43)
[2016-12-14] MEDS ORDERED: AMIODARONE 150MG/D5W BOLUS 100 ML IV ONE (13:00)
[2016-12-14] MEDS ORDERED: AMIODARONE 900 MG in DEXTROSE 5% 482 ML IV SCH (13:00)
--- NOTE | 2016-12-14 13:46 | CONS ---
Date/Time of Note Date/Time of Note DATE: 12/14/16 TIME: 13:45 Assessment/Plan Assessment/Plan Chief Complaint/Hosp Course SUBJECTIVE: Patient is alert, looks comfortable. Denies pain, no fevers. Vital signs stable. MICROBIOLOGY: Blood and urine culture growing Proteus mirabilis susceptible to all antibiotics. ANTIMICROBIALS: Invanz Indwelling: RIJ danielle 12/13 DIAGNOSTICS: Ultrasound of the abdomen revealed nonobstructive bilateral renal calculi. Chest x-ray showed no acute cardiopulmonary process. CT of the brain on admission revealed no acute intracranial pathology. Renal ultrasound revealed no evidence of obstructive uropathy. PHYSICAL EXAMINATION: GENERAL: Obese well-developed, middle-aged man who is alert, in no distress. HEENT: Head atraumatic, normocephalic. Sclerae anicteric. Buccal mucosa dry. NECK: Supple, trachea midline. CHEST: Rise symmetrical. Breath sounds clear. HEART: S1, S2. ABDOMEN: Soft, bowel tones present. EXTREMITIES: Without cyanosis. ASSESSMENT: 1. Sepsis with acute encephalopathy on admission, acute renal failure. 2. Proteus mirabilis urinary tract infection with bacteremia. 3. Acute kidney failure, possible chronic kidney disease. 4. History of gout. 5. Hypertension. 6. Atrial fibrillation. 7. History of alcohol abuse. PLAN: Stable, started on HD, pending repeat blood cultures. Continue abx DW staff Problems: Consultation Date/Type/Reason Admit Date/Time December 10, 2016 at 16:57 Initial Consult Date Type of Consultation: ID Referring Provider: CLOVIS SHORE Exam/Review of Systems Vital Signs Vitals Vital Signs Date Time Temp Pulse Resp B/P Pulse Ox O2 Delivery O2 Flow Rate FiO2 12/14/16 12:05 155 12/14/16 11:49 98.4 20 148/68 96 12/10/16 22:13 Room Air Intake and Output 12/13/16 12/13/16 12/14/16 15:00 23:00 07:00 Intake Total 100 ml 750 ml 1400 ml Output Total 2000 ml 700 ml Balance 100 ml -1250 ml 700 ml Results Result Diagram: 12/14/16 0702 12/14/16 0702 Results 24 hrs Laboratory Tests Test 12/14/16 07:02 White Blood Count 15.1 #H Red Blood Count 2.89 #L Hemoglobin 9.0 #L Hematocrit 25.6 #L Mean Corpuscular Volume 88.6 Mean Corpuscular Hemoglobin 31.1 Mean Corpuscular Hemoglobin Concent 35.2 Red Cell Distribution Width 15.5 H Platelet Count 102 L Mean Platelet Volume 12.1 H Neutrophils % 90.8 H Lymphocytes % 3.0 L Monocytes % 4.2 Eosinophils % 0.5 Basophils % 0.1 Nucleated Red Blood Cells % 0.0 Neutrophils # 13.7 H Lymphocytes # 0.5 L Monocytes # 0.6 Eosinophils # 0.1 Basophils # 0.0 Nucleated Red Blood Cells # 0.0 Sodium Level 128 L Potassium Level 3.7 Chloride Level 97 Carbon Dioxide Level 25 Anion Gap 10 # Blood Urea Nitrogen 78 H Creatinine 5.03 H Glucose Level 100 Calcium Level 7.3 L Medications Medications Current Medications Ondansetron HCl (Zofran Inj) 4 mg Q6H PRN IV NAUSEA AND/OR VOMITING Last administered on 12/11/16 06:45; Admin Dose 4 MG; Start 12/10/16 at 18:00 Acetaminophen (Tylenol Tab) 650 mg Q6H PRN PO PAIN LEVEL 1-3 OR FEVER; Start at 18:00 Morphine Sulfate (morphine) 2 mg Q4H PRN IV PAIN LEVEL 7-10; Start 12/10/16 at 18:00 Magnesium Hydroxide (Milk Of Mag) 30 ml DAILY PRN PO CONSTIPATION; Start at 18:00 Bisacodyl (Dulcolax) 5 mg DAILY PRN PO CONSTIPATION; Start 12/10/16 at 18:00 Famotidine (Pepcid) 20 mg DAILY PO Last administered on 12/14/16 12:44; Admin Dose 20 MG; Start 12/11/16 at 09:00 Hydralazine HCl (Apresoline) 10 mg Q6H PRN IV SBP>160 Last administered on 11:47; Admin Dose 10 MG; Start 12/10/16 at 18:00 Metoprolol Tartrate (Lopressor) 25 mg BID PO Last administered on 12/14/16 12: 45; Admin Dose 25 MG; Start 12/10/16 at 21:00 Atorvastatin Calcium 10 mg 10 mg DAILY@21 PO Last administered on 12/13/16 22: 09; Admin Dose 10 MG; Start 12/10/16 at 21:00 Sodium Chloride (NS) 1,000 ml @ 100 mls/hr Q10H IV Last administered on 03:31; Admin Dose 100 MLS/HR; Start 12/10/16 at 18:00 Lorazepam 1 mg 1 mg Q2H PRN IV Anxiety; Start 12/10/16 at 18:30 Multivitamins/ Thiamine HCl/ Folic Acid/Sodium Chloride (Mvi Adult/ Vitamin B1/ Folic Acid/NS) 1,011.2 ml @ 125 mls/ hr DAILY@09 IVPB Last administered on 12/14 12:42; Admin Dose 125 MLS/HR; Start 12/11/16 at 09:00 Heparin Sodium (Porcine) (Heparin (5000 Units/0.5 ml)) 5,000 unit BID SC Last administered on 12/14/16 12:44; Admin Dose 5,000 UNIT; Start 12/11/16 at 21:00 Chlordiazepoxide (Librium) 50 mg BID PO Last administered on 12/14/16 12:42; Admin Dose 50 MG; Start 12/11/16 at 21:00 Miscellaneous Information (* Miscellaneous Pharmacy Order) pharmacy to dose, g... ONCE XX ; Start 12/12/16 at 02:30 Acetaminophen/ Hydrocodone Bitart 2 tab 2 tab Q4H PRN PO pain Last administered on 12/14/16 05:38; Admin Dose 2 TAB; Start 12/13/16 at 10:30 Ertapenem 0.5 gm/ Sodium Chloride 100 ml @ 200 mls/hr Q24H IVPB ; Start at 14:00 Amiodarone HCl/ Dextrose (Cordarone Iv/ D5W) 500 ml @ 0 mls/hr Q0M IV ; Start at 13:00 CHERRIE JAUREGUI NP December 14, 2016 13:46
--- NOTE | 2016-12-14 13:59 | RADRPT ---
PROCEDURE: Ultrasound guidance for placement of needle in right internal jugular vein. CLINICAL INDICATION: Venous access. TECHNIQUE: Prior to the procedure, informed consent was obtained. Risks including bleeding, infection, and pneu mothorax were explained to the patient. The patient understood and was willing to proceed. A procedu ral pause was performed. The patient's name, date of , and procedure to be performed were verif ied. The central line was inserted with all elements of maximal sterile barrier technique. All of th e following were used: head covering, facial mask, sterile gown, sterile gloves, a large sterile she et, hand hygiene, and 2% chlorhexidine for cutaneous antisepsis. The right neck and anterior/super ior chest wall was prepped and draped in usual sterile fashion. Limited sonography of the right neck was then performed. Noted is a patent right internal jugular ve in. Ultrasound images were recorded and stored in the patient's medical record. Following the local injection of Xylocaine, the right internal jugular vein was punctured under sono graphic guidance with a 20-gauge needle through which a 0.018 inch floppy tip guidewire was advanced into the superior vena cava. The patient tolerated the procedure well. The remainder of the proce dure was performed and dictated under separate cover. COMPARISON: None. FINDINGS: The ultrasound images demonstrate a patent right internal jugular vein. The subsequent images demon strate the needle entering the right internal jugular vein. IMPRESSION: 1. Ultrasound guidance for a needle placement in right internal jugular vein. RPTAT: QQ .Trung De Anda MD, Date Time Electronically viewed and signed by .Trung De Anda MD, on 12/14/2016 13:58 .R/
[2016-12-14] MEDS: morphine 2 MG INJ IV PRN ×2 (14:14→21:42)
--- NOTE | 2016-12-14 14:15 | RADRPT ---
Vent Rate: 163 bpm RR Interval: 0 msec HI Interval: 0 msec QRS Duration: 82 msec QT Interval: 270 msec QTC Interval: 444 msec P-R-T [place]: 0 - 49 - 14 degrees Atrial fibrillation with rapid ventricular response with premature ventricular or aberrantly conducted complexes Nonspecific ST and T wave abnormality , Abnormal ECG Electronically Signed By: Lucas Sanchez [id number]
--- NOTE | 2016-12-14 17:15 | CONS ---
Date/Time of Note Date/Time of Note DATE: 12/14/16 TIME: 17:13 Assessment/Plan Assessment/Plan Additional Assessment/Plan Acute kidney injury Status post fall Sepsis with bacteremia Paroxysmal atrial fibrillation History of hypertension Recent UTI -Patient converted to atrial fibrillation with rapid ventricular rates during hemodialysis. Amiodarone started and patient just converted to sinus rhythm. Will continue IV amiodarone and transition to p.o. the next 24 hours. We will continue beta-blockers heart rate and blood pressure permits. Patient is unsteady on his feet with history of falls as well as significant alcohol use. I am worried the risks of anticoagulations might outweigh the benefits. Would hold off on initiation at the current time. Consultation Date/Type/Reason Admit Date/Time December 10, 2016 at 16:57 Type of Consultation: cv Referring Provider: CLOVIS SHORE 24 HR Interval Summary Free Text/Dictation Patient with palpitations today during dialysis and converted to atrial fibrillation rapid ventricular rates. Currently denies any chest pain or shortness of breath or palpitations Exam/Review of Systems Vital Signs Vitals Vital Signs Date Time Temp Pulse Resp B/P Pulse Ox O2 Delivery O2 Flow Rate FiO2 12/14/16 15:56 98.8 91 20 124/94 95 12/10/16 22:13 Room Air Intake and Output 12/13/16 12/13/16 12/14/16 15:00 23:00 07:00 Intake Total 100 ml 750 ml 1400 ml Output Total 2000 ml 700 ml Balance 100 ml -1250 ml 700 ml Exam In bed, no apparent distress Constitutional: alert, oriented Head: normocephalic Respiratory: other (Coarse breath sounds bilaterally, no wheezing) Cardiovascular: other (S1-S2 heard), regular rate and rhythm Gastrointestinal: bowel sounds, non-tender, soft Extremities: edema Results Result Diagram: 12/14/16 0702 12/14/16 0702 Results 24 hrs Laboratory Tests Test 12/14/16 07:02 White Blood Count 15.1 #H Red Blood Count 2.89 #L Hemoglobin 9.0 #L Hematocrit 25.6 #L Mean Corpuscular Volume 88.6 Mean Corpuscular Hemoglobin 31.1 Mean Corpuscular Hemoglobin Concent 35.2 Red Cell Distribution Width 15.5 H Platelet Count 102 L Mean Platelet Volume 12.1 H Neutrophils % 90.8 H Lymphocytes % 3.0 L Monocytes % 4.2 Eosinophils % 0.5 Basophils % 0.1 Nucleated Red Blood Cells % 0.0 Neutrophils # 13.7 H Lymphocytes # 0.5 L Monocytes # 0.6 Eosinophils # 0.1 Basophils # 0.0 Nucleated Red Blood Cells # 0.0 Sodium Level 128 L Potassium Level 3.7 Chloride Level 97 Carbon Dioxide Level 25 Anion Gap 10 # Blood Urea Nitrogen 78 H Creatinine 5.03 H Glucose Level 100 Calcium Level 7.3 L Medications Medications Current Medications Ondansetron HCl (Zofran Inj) 4 mg Q6H PRN IV NAUSEA AND/OR VOMITING Last administered on 12/11/16 06:45; Admin Dose 4 MG; Start 12/10/16 at 18:00 Acetaminophen (Tylenol Tab) 650 mg Q6H PRN PO PAIN LEVEL 1-3 OR FEVER; Start at 18:00 Morphine Sulfate (morphine) 2 mg Q4H PRN IV PAIN LEVEL 7-10 Last administered on 12/14/16 14:14; Admin Dose 2 MG; Start 12/10/16 at 18:00 Magnesium Hydroxide (Milk Of Mag) 30 ml DAILY PRN PO CONSTIPATION; Start at 18:00 Bisacodyl (Dulcolax) 5 mg DAILY PRN PO CONSTIPATION; Start 12/10/16 at 18:00 Famotidine (Pepcid) 20 mg DAILY PO Last administered on 12/14/16 12:44; Admin Dose 20 MG; Start 12/11/16 at 09:00 Hydralazine HCl (Apresoline) 10 mg Q6H PRN IV SBP>160 Last administered on 11:47; Admin Dose 10 MG; Start 12/10/16 at 18:00 Metoprolol Tartrate (Lopressor) 25 mg BID PO Last administered on 12/14/16 12: 45; Admin Dose 25 MG; Start 12/10/16 at 21:00 Atorvastatin Calcium 10 mg 10 mg DAILY@21 PO Last administered on 12/13/16 22: 09; Admin Dose 10 MG; Start 12/10/16 at 21:00 Sodium Chloride (NS) 1,000 ml @ 100 mls/hr Q10H IV Last administered on 03:31; Admin Dose 100 MLS/HR; Start 12/10/16 at 18:00 Lorazepam 1 mg 1 mg Q2H PRN IV Anxiety; Start 12/10/16 at 18:30 Multivitamins/ Thiamine HCl/ Folic Acid/Sodium Chloride (Mvi Adult/ Vitamin B1/ Folic Acid/NS) 1,011.2 ml @ 125 mls/ hr DAILY@09 IVPB Last administered on 12/14 12:42; Admin Dose 125 MLS/HR; Start 12/11/16 at 09:00 Heparin Sodium (Porcine) (Heparin (5000 Units/0.5 ml)) 5,000 unit BID SC Last administered on 12/14/16 12:44; Admin Dose 5,000 UNIT; Start 12/11/16 at 21:00 Chlordiazepoxide (Librium) 50 mg BID PO Last administered on 12/14/16 12:42; Admin Dose 50 MG; Start 12/11/16 at 21:00 Miscellaneous Information (* Miscellaneous Pharmacy Order) pharmacy to dose, g... ONCE XX ; Start 12/12/16 at 02:30 Acetaminophen/ Hydrocodone Bitart 2 tab 2 tab Q4H PRN PO pain Last administered on 12/14/16 05:38; Admin Dose 2 TAB; Start 12/13/16 at 10:30 Ertapenem 0.5 gm/ Sodium Chloride 100 ml @ 200 mls/hr Q24H IVPB ; Start at 14:00 Amiodarone HCl/ Dextrose (Cordarone Iv/ D5W) 500 ml @ 0 mls/hr Q0M IV Last administered on 12/14/16 13:49; Admin Dose 33.4 MLS/HR; Start 12/14/16 at 13:00 Zeyad Kelly DO December 14, 2016 17:15
[2016-12-14] MEDS: ERTAPENEM SODIUM 0.5 GM in SOD CHLORIDE 0.9% 100 ML IVPB SCH (17:17)
[2016-12-14] MEDS: ATORVASTATIN 10 MG TAB PO SCH (21:42)
[2016-12-15] VITALS (19 sets, daily range): BP systolic 119–209; BP diastolic 56–95; PULSE 69–104; RESP 17–28
[2016-12-15] MEDS: SOD CHLORIDE 0.9% 1,000 ML IV SCH ×3 (01:30→16:53)
[2016-12-15] MEDS: morphine 2 MG INJ IV PRN (05:31)
[2016-12-15] MEDS: AMIODARONE 200 MG TAB PO SCH ×2 (06:21→21:27)
[2016-12-15 07:35] LABS: ADD SCAN DIFF NO
[2016-12-15 07:52] LABS: ABNORMAL IP MESSAGE 1; BASOPHILS % 0.1 % (0.0-2.0); EOSINOPHILS # 0.1 10^3/ul (0.0-0.5); EOSINOPHILS % 0.5 % (0.0-7.0); HEMOGLOBIN 9.6 g/dl (14.0-18.0); LYMPHOCYTES # 0.5 10^3/ul (0.8-2.9); LYMPHOCYTES % 3.5 % (15.0-51.0); MEAN CORPUSCULAR HEMOGLOBIN 30.7 pg (29.0-33.0); MEAN CORPUSCULAR HGB CONC 34.3 g/dl (32.0-37.0); MEAN CORPUSCULAR VOLUME 89.5 fl (82.0-101.0); MEAN PLATELET VOLUME 12.1 fl (7.4-10.4); MONOCYTE # 0.8 10^3/ul (0.3-0.9); MONOCYTES % 5.4 % (0.0-11.0); NEUTROPHIL # 13.1 10^3/ul (1.6-7.5); NEUTROPHILS % 89.3 % (39.0-77.0); PLATELET COUNT 136 10^3/UL (140-415); RED BLOOD COUNT 3.13 10^6/ul (4.70-6.10); RED CELL DISTRIBUTION WIDTH 15.9 % (11.5-14.5); WHITE BLOOD COUNT 14.6 10^3/ul (4.8-10.8)
[2016-12-15 08:03] LABS: CALCIUM 7.6 mg/dl (8.4-10.2); CREATININE 4.15 mg/dl (0.61-1.24); POTASSIUM 3.8 mmol/L (3.5-5.1)
[2016-12-15] MEDS: FAMOTIDINE 20 MG TAB PO SCH (09:41)
[2016-12-15] MEDS: CHLORDIAZEPOXIDE 25 MG CAP PO SCH ×2 (09:41→21:26)
[2016-12-15] MEDS: MULTIVITAMINS 10 ML, THIAMINE 100 MG, FOLIC ACID 1 MG in SOD CHLORIDE 0.9% 1,000 ML IVPB SCH (09:43)
[2016-12-15] MEDS: METOPROLOL 25 MG TAB PO SCH ×2 (09:43→21:27)
[2016-12-15] MEDS: HEPARIN 5,000 UNIT/0.5 ML VIAL SC SCH ×2 (09:47→21:00)
--- NOTE | 2016-12-15 09:49 | PN ---
Date/Time of Note Date/Time of Note DATE: 12/15/16 TIME: 09:45 Assessment/Plan VTE Prophylaxis VTE Prophylaxis Intervention: heparin Lines/Catheters IV Catheter Type (from [facility]): Peripheral IV Urinary Cath still in place: No Assessment/Plan Chief Complaint/Hosp Course Acute assessment and plan 1. Acute renal insufficiency. . Continue on dialysis per nephrology recommendation. Monitor renal panel. Appears to be improving 2. Status post fall. Brain CT was negative for any acute intrarenal findings. PT following. Analgesics as needed 3. Essential hypertension. Continue antihypertensives and adjust as needed. Stable 4. Reported history of gout. No active issue at this time we will monitor for now. 5. Sepsis with underlying urinary tract infection with Proteus mirabilis. Continue antibiotics per ID recommendations 6. Dyslipidemia. Continue statin medication 7. A. fib with RVR. Improved status post amiodarone drip. Continue on medication and beta-anjelica. Continue with cardiology recommendations 8. Alcohol abuse. Alcohol cessation was advised. 9. Normocytic anemia. Likely secondary to alcohol abuse. S&S of bleeding. Monitor for now. DVT prophylaxis: Heparin Disposition plan: Continue on dialysis. Renal function appears to be improving. Continue physical therapy. Discharge when medically stable and cleared by consultants Discussed plan of care with Dr. Barnett Problems: Subjective 24 Hr Interval Summary Free Text/Dictation Resting at this time. Denies any chest pain or heart palpitations. Comfortable at present. Noted with less swelling bilateral lower extremities Exam/Review of Systems Vital Signs Vitals Vital Signs Date Time Temp Pulse Resp B/P Pulse Ox O2 Delivery O2 Flow Rate FiO2 12/15/16 08:14 79 12/15/16 07:45 98.6 20 145/66 91 Intake and Output 12/14/16 12/14/16 12/15/16 15:00 23:00 07:00 Intake Total 300 ml 500 ml 1850 ml Output Total 2000 ml 500 ml 150 ml Balance -1700 ml 0 ml 1700 ml Exam Constitutional: alert, oriented Psych: nl mood/affect Head: normocephalic Eyes: nl conjunctiva Neck: supple, No jvd Respiratory: clear to auscultation, diminished breath sounds (little at base ) Cardiovascular: irregular rhythm Gastrointestinal: non-tender, soft Musculoskeletal: No swelling Neurological: RN MEDICATION II-XII intact, nl mental status, nl speech Skin: nl turgor Results Result Diagram: 5/10/17 0631 12/15/16 0631 Results 24 hrs Laboratory Tests Test 12/15/16 06:31 White Blood Count 14.6 H Red Blood Count 3.13 L Hemoglobin 9.6 L Hematocrit 28.0 L Mean Corpuscular Volume 89.5 Mean Corpuscular Hemoglobin 30.7 Mean Corpuscular Hemoglobin Concent 34.3 Red Cell Distribution Width 15.9 H Platelet Count 136 #L Mean Platelet Volume 12.1 H Neutrophils % 89.3 H Lymphocytes % 3.5 L Monocytes % 5.4 Eosinophils % 0.5 Basophils % 0.1 Nucleated Red Blood Cells % 0.0 Neutrophils # 13.1 H Lymphocytes # 0.5 L Monocytes # 0.8 Eosinophils # 0.1 Basophils # 0.0 Nucleated Red Blood Cells # 0.0 Sodium Level 132 L Potassium Level 3.8 Chloride Level 98 Carbon Dioxide Level 26 Anion Gap 12 Blood Urea Nitrogen 52 H Creatinine 4.15 H Glucose Level 97 Calcium Level 7.6 L Medications Medications Current Medications Ondansetron HCl (Zofran Inj) 4 mg Q6H PRN IV NAUSEA AND/OR VOMITING Last administered on 12/11/16 06:45; Admin Dose 4 MG; Start 12/10/16 at 18:00 Acetaminophen (Tylenol Tab) 650 mg Q6H PRN PO PAIN LEVEL 1-3 OR FEVER; Start at 18:00 Morphine Sulfate (morphine) 2 mg Q4H PRN IV PAIN LEVEL 7-10 Last administered on 12/15/16 05:31; Admin Dose 2 MG; Start 12/10/16 at 18:00 Magnesium Hydroxide (Milk Of Mag) 30 ml DAILY PRN PO CONSTIPATION; Start at 18:00 Bisacodyl (Dulcolax) 5 mg DAILY PRN PO CONSTIPATION; Start 12/10/16 at 18:00 Famotidine (Pepcid) 20 mg DAILY PO Last administered on 12/14/16 12:44; Admin Dose 20 MG; Start 12/11/16 at 09:00 Hydralazine HCl (Apresoline) 10 mg Q6H PRN IV SBP>160 Last administered on 11:47; Admin Dose 10 MG; Start 12/10/16 at 18:00 Metoprolol Tartrate (Lopressor) 25 mg BID PO Last administered on 12/14/16 21: 43; Admin Dose 25 MG; Start 12/10/16 at 21:00 Atorvastatin Calcium 10 mg 10 mg DAILY@21 PO Last administered on 12/14/16 21: 42; Admin Dose 10 MG; Start 12/10/16 at 21:00 Sodium Chloride (NS) 1,000 ml @ 100 mls/hr Q10H IV Last administered on 01:30; Admin Dose 100 MLS/HR; Start 12/10/16 at 18:00 Lorazepam 1 mg 1 mg Q2H PRN IV Anxiety; Start 12/10/16 at 18:30 Multivitamins/ Thiamine HCl/ Folic Acid/Sodium Chloride (Mvi Adult/ Vitamin B1/ Folic Acid/NS) 1,011.2 ml @ 125 mls/ hr DAILY@09 IVPB Last administered on 12/14 12:42; Admin Dose 125 MLS/HR; Start 12/11/16 at 09:00 Heparin Sodium (Porcine) (Heparin (5000 Units/0.5 ml)) 5,000 unit BID SC Last administered on 12/14/16 21:44; Admin Dose 5,000 UNIT; Start 12/11/16 at 21:00 Chlordiazepoxide (Librium) 50 mg BID PO Last administered on 12/14/16 21:42; Admin Dose 50 MG; Start 12/11/16 at 21:00 Miscellaneous Information (* Miscellaneous Pharmacy Order) pharmacy to dose, g... ONCE XX ; Start 12/12/16 at 02:30 Acetaminophen/ Hydrocodone Bitart 2 tab 2 tab Q4H PRN PO pain Last administered on 12/14/16 05:38; Admin Dose 2 TAB; Start 12/13/16 at 10:30 Ertapenem 0.5 gm/ Sodium Chloride 100 ml @ 200 mls/hr Q24H IVPB Last administered on 12/14/16 17:17; Admin Dose 200 MLS/HR; Start 12/14/16 at 14:00 Amiodarone HCl/ Dextrose (Cordarone Iv/ D5W) 500 ml @ 0 mls/hr Q0M IV Last administered on 12/14/16 13:49; Admin Dose 33.4 MLS/HR; Start 12/14/16 at 13:00 Amiodarone HCl (Cordarone) 200 mg BID PO Last administered on 12/15/16t 06:21; Admin Dose 200 MG; Start 12/15/16 at 06:00 SANJAY ANDREA December 15, 2016 09:49
--- NOTE | 2016-12-15 12:40 | CONS ---
Date/Time of Note Date/Time of Note DATE: 12/15/16 TIME: 12:37 Assessment/Plan Assessment/Plan Additional Assessment/Plan 1. Acute kidney injury, multifactorial, not improving despite being on IVF hydration, BUN/Cr persistently high ,.started on HD during this admission 2. Hyponatremia 3. Status post fall, which was a mechanical fall, but likely due to the hyponatremia. CT brain is negative. 4. Possible history of chronic kidney disease secondary to hypertensive nephrosclerosis. 5. History of hypertension. 6. History of gout. 7. History of hyperlipidemia. 8. Atrial fibrillation, rate controlled. 9. History of alcohol abuse. 10. Thrombocytopenia secondary to alcohol abuse. 11. sepsis due to UTI and bacteremia with Blood cx and urine Cx growing proteus PLAN: ,sarted on HD through right iJ danielle HD catheter , s/p HD x 2 days in a row, no plan for HD today Blood cx and Urine cx grew proteus - repeat Blood cx ordered for tomorrow , IV abx will follow up Consultation Date/Type/Reason Admit Date/Time December 10, 2016 at 16:57 Type of Consultation: NEPHROLOGY Referring Provider: CLOVIS SHORE 24 HR Interval Summary Free Text/Dictation s/p HD yesterday, Bp stable, no plan for HD today Exam/Review of Systems Vital Signs Vitals Vital Signs Date Time Temp Pulse Resp B/P Pulse Ox O2 Delivery O2 Flow Rate FiO2 12/15/16 11:23 99.3 76 20 154/64 94 Intake and Output 12/14/16 12/14/16 12/15/16 15:00 23:00 07:00 Intake Total 300 ml 500 ml 1850 ml Output Total 2000 ml 500 ml 150 ml Balance -1700 ml 0 ml 1700 ml Exam GENERAL: alert, awake no acute distress LUNGS: Clear to auscultation bilaterally, no adventitious breath sounds. No use of accessory muscles of respiration. HEART: S1, S2, irregularly irregular. No murmur. ABDOMEN: Soft, nontender, nondistended. Bowel sounds are present in all 4 quadrants. EXTREMITIES: No clubbing, cyanosis, edema. Peripheral pulses are palpable. Results Result Diagram: 12/15/16 0631 12/15/16 0631 Results 24 hrs Laboratory Tests Test 12/15/16 06:31 White Blood Count 14.6 H Red Blood Count 3.13 L Hemoglobin 9.6 L Hematocrit 28.0 L Mean Corpuscular Volume 89.5 Mean Corpuscular Hemoglobin 30.7 Mean Corpuscular Hemoglobin Concent 34.3 Red Cell Distribution Width 15.9 H Platelet Count 136 #L Mean Platelet Volume 12.1 H Neutrophils % 89.3 H Lymphocytes % 3.5 L Monocytes % 5.4 Eosinophils % 0.5 Basophils % 0.1 Nucleated Red Blood Cells % 0.0 Neutrophils # 13.1 H Lymphocytes # 0.5 L Monocytes # 0.8 Eosinophils # 0.1 Basophils # 0.0 Nucleated Red Blood Cells # 0.0 Sodium Level 132 L Potassium Level 3.8 Chloride Level 98 Carbon Dioxide Level 26 Anion Gap 12 Blood Urea Nitrogen 52 H Creatinine 4.15 H Glucose Level 97 Calcium Level 7.6 L Medications Medications Current Medications Ondansetron HCl (Zofran Inj) 4 mg Q6H PRN IV NAUSEA AND/OR VOMITING Last administered on 12/11/16 06:45; Admin Dose 4 MG; Start 12/10/16 at 18:00 Acetaminophen (Tylenol Tab) 650 mg Q6H PRN PO PAIN LEVEL 1-3 OR FEVER; Start at 18:00 Morphine Sulfate (morphine) 2 mg Q4H PRN IV PAIN LEVEL 7-10 Last administered on 12/15/16 05:31; Admin Dose 2 MG; Start 12/10/16 at 18:00 Magnesium Hydroxide (Milk Of Mag) 30 ml DAILY PRN PO CONSTIPATION; Start at 18:00 Bisacodyl (Dulcolax) 5 mg DAILY PRN PO CONSTIPATION; Start 12/10/16 at 18:00 Famotidine (Pepcid) 20 mg DAILY PO Last administered on 12/15/16 09:41; Admin Dose 20 MG; Start 12/11/16 at 09:00 Hydralazine HCl (Apresoline) 10 mg Q6H PRN IV SBP>160 Last administered on 11:47; Admin Dose 10 MG; Start 12/10/16 at 18:00 Metoprolol Tartrate (Lopressor) 25 mg BID PO Last administered on 12/15/16 09: 43; Admin Dose 25 MG; Start 12/10/16 at 21:00 Atorvastatin Calcium 10 mg 10 mg DAILY@21 PO Last administered on 12/14/16 21: 42; Admin Dose 10 MG; Start 12/10/16 at 21:00 Sodium Chloride (NS) 1,000 ml @ 100 mls/hr Q10H IV Last administered on 01:30; Admin Dose 100 MLS/HR; Start 12/10/16 at 18:00 Lorazepam 1 mg 1 mg Q2H PRN IV Anxiety; Start 12/10/16 at 18:30 Multivitamins/ Thiamine HCl/ Folic Acid/Sodium Chloride (Mvi Adult/ Vitamin B1/ Folic Acid/NS) 1,011.2 ml @ 125 mls/ hr DAILY@09 IVPB Last administered on 09:43; Admin Dose 125 MLS/HR; Start 12/11/16 at 09:00 Heparin Sodium (Porcine) (Heparin (5000 Units/0.5 ml)) 5,000 unit BID SC Last administered on 12/15/16 09:47; Admin Dose 5,000 UNIT; Start 12/11/16 at 21:00 Chlordiazepoxide (Librium) 50 mg BID PO Last administered on 12/15/16 09:41; Admin Dose 50 MG; Start 12/11/16 at 21:00 Miscellaneous Information (* Miscellaneous Pharmacy Order) pharmacy to dose, g... ONCE XX ; Start 12/12/16 at 02:30 Acetaminophen/ Hydrocodone Bitart 2 tab 2 tab Q4H PRN PO pain Last administered on 12/14/16 05:38; Admin Dose 2 TAB; Start 12/13/16 at 10:30 Ertapenem 0.5 gm/ Sodium Chloride 100 ml @ 200 mls/hr Q24H IVPB Last administered on 12/14/16 17:17; Admin Dose 200 MLS/HR; Start 12/14/16 at 14:00 Amiodarone HCl/ Dextrose (Cordarone Iv/ D5W) 500 ml @ 0 mls/hr Q0M IV Last administered on 12/14/16 13:49; Admin Dose 33.4 MLS/HR; Start 12/14/16 at 13:00 Amiodarone HCl (Cordarone) 200 mg BID PO Last administered on 12/15/16 06:21; Admin Dose 200 MG; Start 12/15/16 at 06:00 MADELYN MIRANDA MD December 15, 2016 12:40
--- NOTE | 2016-12-15 13:27 | CONS ---
Date/Time of Note Date/Time of Note DATE: 12/15/16 TIME: 13:25 Assessment/Plan Assessment/Plan Chief Complaint/Hosp Course SUBJECTIVE: No events, looks comfortable. Denies pain, no fevers. Vital signs stable. MICROBIOLOGY: Blood and urine culture growing Proteus mirabilis susceptible to all antibiotics. ANTIMICROBIALS: Invanz Indwelling: RIJ danielle 12/13 DIAGNOSTICS: Ultrasound of the abdomen revealed nonobstructive bilateral renal calculi. Chest x-ray showed no acute cardiopulmonary process. CT of the brain on admission revealed no acute intracranial pathology. Renal ultrasound revealed no evidence of obstructive uropathy. PHYSICAL EXAMINATION: GENERAL: Obese well-developed, middle-aged man who is alert, in no distress. HEENT: Head atraumatic, normocephalic. Sclerae anicteric. Buccal mucosa dry. NECK: Supple, trachea midline. CHEST: Rise symmetrical. Breath sounds clear. HEART: S1, S2. ABDOMEN: Soft, bowel tones present. EXTREMITIES: Without cyanosis. ASSESSMENT: 1. Sepsis with acute encephalopathy on admission, acute renal failure. 2. Proteus mirabilis urinary tract infection with bacteremia. 3. Acute kidney failure, possible chronic kidney disease. 4. History of gout. 5. Hypertension. 6. Atrial fibrillation. 7. History of alcohol abuse. PLAN: Remains stable, continue abx, HD per renal, pending repeat blood cultures. DW staff Problems: Consultation Date/Type/Reason Admit Date/Time December 10, 2016 at 16:57 Type of Consultation: ID Referring Provider: CLOVIS SHORE Exam/Review of Systems Vital Signs Vitals Vital Signs Date Time Temp Pulse Resp B/P Pulse Ox O2 Delivery O2 Flow Rate FiO2 12/15/16 12:37 74 12/15/16 11:23 99.3 20 154/64 94 Intake and Output 12/14/16 12/14/16 12/15/16 15:00 23:00 07:00 Intake Total 300 ml 500 ml 1850 ml Output Total 2000 ml 500 ml 150 ml Balance -1700 ml 0 ml 1700 ml Results Result Diagram: 12/15/16 0631 12/15/16 0631 Results 24 hrs Laboratory Tests Test 12/15/16 06:31 White Blood Count 14.6 H Red Blood Count 3.13 L Hemoglobin 9.6 L Hematocrit 28.0 L Mean Corpuscular Volume 89.5 Mean Corpuscular Hemoglobin 30.7 Mean Corpuscular Hemoglobin Concent 34.3 Red Cell Distribution Width 15.9 H Platelet Count 136 #L Mean Platelet Volume 12.1 H Neutrophils % 89.3 H Lymphocytes % 3.5 L Monocytes % 5.4 Eosinophils % 0.5 Basophils % 0.1 Nucleated Red Blood Cells % 0.0 Neutrophils # 13.1 H Lymphocytes # 0.5 L Monocytes # 0.8 Eosinophils # 0.1 Basophils # 0.0 Nucleated Red Blood Cells # 0.0 Sodium Level 132 L Potassium Level 3.8 Chloride Level 98 Carbon Dioxide Level 26 Anion Gap 12 Blood Urea Nitrogen 52 H Creatinine 4.15 H Glucose Level 97 Calcium Level 7.6 L Medications Medications Current Medications Ondansetron HCl (Zofran Inj) 4 mg Q6H PRN IV NAUSEA AND/OR VOMITING Last administered on 12/11/16 06:45; Admin Dose 4 MG; Start 12/10/16 at 18:00 Acetaminophen (Tylenol Tab) 650 mg Q6H PRN PO PAIN LEVEL 1-3 OR FEVER; Start at 18:00 Morphine Sulfate (morphine) 2 mg Q4H PRN IV PAIN LEVEL 7-10 Last administered on 12/15/16 05:31; Admin Dose 2 MG; Start 12/10/16 at 18:00 Magnesium Hydroxide (Milk Of Mag) 30 ml DAILY PRN PO CONSTIPATION; Start at 18:00 Bisacodyl (Dulcolax) 5 mg DAILY PRN PO CONSTIPATION; Start 12/10/16 at 18:00 Famotidine (Pepcid) 20 mg DAILY PO Last administered on 12/15/16 09:41; Admin Dose 20 MG; Start 12/11/16 at 09:00 Hydralazine HCl (Apresoline) 10 mg Q6H PRN IV SBP>160 Last administered on 11:47; Admin Dose 10 MG; Start 12/10/16 at 18:00 Metoprolol Tartrate (Lopressor) 25 mg BID PO Last administered on 12/15/16 09: 43; Admin Dose 25 MG; Start 12/10/16 at 21:00 Atorvastatin Calcium 10 mg 10 mg DAILY@21 PO Last administered on 12/14/16 21: 42; Admin Dose 10 MG; Start 12/10/16 at 21:00 Sodium Chloride (NS) 1,000 ml @ 100 mls/hr Q10H IV Last administered on 01:30; Admin Dose 100 MLS/HR; Start 12/10/16 at 18:00 Lorazepam 1 mg 1 mg Q2H PRN IV Anxiety; Start 12/10/16 at 18:30 Multivitamins/ Thiamine HCl/ Folic Acid/Sodium Chloride (Mvi Adult/ Vitamin B1/ Folic Acid/NS) 1,011.2 ml @ 125 mls/ hr DAILY@09 IVPB Last administered on 09:43; Admin Dose 125 MLS/HR; Start 12/11/16 at 09:00 Heparin Sodium (Porcine) (Heparin (5000 Units/0.5 ml)) 5,000 unit BID SC Last administered on 12/15/16 09:47; Admin Dose 5,000 UNIT; Start 12/11/16 at 21:00 Chlordiazepoxide (Librium) 50 mg BID PO Last administered on 12/15/16 09:41; Admin Dose 50 MG; Start 12/11/16 at 21:00 Miscellaneous Information (* Miscellaneous Pharmacy Order) pharmacy to dose, g... ONCE XX ; Start 12/12/16 at 02:30 Acetaminophen/ Hydrocodone Bitart 2 tab 2 tab Q4H PRN PO pain Last administered on 12/14/16 05:38; Admin Dose 2 TAB; Start 12/13/16 at 10:30 Ertapenem 0.5 gm/ Sodium Chloride 100 ml @ 200 mls/hr Q24H IVPB Last administered on 12/14/16 17:17; Admin Dose 200 MLS/HR; Start 12/14/16 at 14:00 Amiodarone HCl/ Dextrose (Cordarone Iv/ D5W) 500 ml @ 0 mls/hr Q0M IV Last administered on 12/14/16 13:49; Admin Dose 33.4 MLS/HR; Start 12/14/16 at 13:00 Amiodarone HCl (Cordarone) 200 mg BID PO Last administered on 12/15/16 06:21; Admin Dose 200 MG; Start 12/15/16 at 06:00 CHERRIE JAUREGUI NP December 15, 2016 13:27
--- NOTE | 2016-12-15 13:42 | CONS ---
Date/Time of Note Date/Time of Note DATE: 12/15/16 TIME: 13:41 Assessment/Plan Assessment/Plan Additional Assessment/Plan Acute kidney injury Status post fall Sepsis with bacteremia Paroxysmal atrial fibrillation, currently sinus rhythm History of hypertension Recent UTI -Patient converted back to sinus rhythm. Continue p.o. amiodarone. Fluid management as per our nephrology colleagues. Consultation Date/Type/Reason Admit Date/Time December 10, 2016 at 16:57 Type of Consultation: cv Referring Provider: CLOVIS SHORE 24 HR Interval Summary Free Text/Dictation Denies shortness of breath, chest pain, palpitations Exam/Review of Systems Vital Signs Vitals Vital Signs Date Time Temp Pulse Resp B/P Pulse Ox O2 Delivery O2 Flow Rate FiO2 12/15/16 12:37 74 12/15/16 11:23 99.3 20 154/64 94 Intake and Output 12/14/16 12/14/16 12/15/16 14:59 22:59 06:59 Intake Total 300 ml 500 ml 1850 ml Output Total 2000 ml 500 ml 150 ml Balance -1700 ml 0 ml 1700 ml Exam No apparent distress Constitutional: alert, oriented Head: normocephalic Neck: supple Respiratory: other (Coarse breath sounds bilaterally, no wheezing) Cardiovascular: other (S1-S2 heard), regular rate and rhythm Gastrointestinal: bowel sounds, non-tender, soft Extremities: edema Results Result Diagram: 12/15/1631 12/15/16 0631 Results 24 hrs Laboratory Tests Test 12/15/16 06:31 White Blood Count 14.6 H Red Blood Count 3.13 L Hemoglobin 9.6 L Hematocrit 28.0 L Mean Corpuscular Volume 89.5 Mean Corpuscular Hemoglobin 30.7 Mean Corpuscular Hemoglobin Concent 34.3 Red Cell Distribution Width 15.9 H Platelet Count 136 #L Mean Platelet Volume 12.1 H Neutrophils % 89.3 H Lymphocytes % 3.5 L Monocytes % 5.4 Eosinophils % 0.5 Basophils % 0.1 Nucleated Red Blood Cells % 0.0 Neutrophils # 13.1 H Lymphocytes # 0.5 L Monocytes # 0.8 Eosinophils # 0.1 Basophils # 0.0 Nucleated Red Blood Cells # 0.0 Sodium Level 132 L Potassium Level 3.8 Chloride Level 98 Carbon Dioxide Level 26 Anion Gap 12 Blood Urea Nitrogen 52 H Creatinine 4.15 H Glucose Level 97 Calcium Level 7.6 L Medications Medications Current Medications Ondansetron HCl (Zofran Inj) 4 mg Q6H PRN IV NAUSEA AND/OR VOMITING Last administered on 12/11/16 06:45; Admin Dose 4 MG; Start 12/10/16 at 18:00 Acetaminophen (Tylenol Tab) 650 mg Q6H PRN PO PAIN LEVEL 1-3 OR FEVER; Start at 18:00 Morphine Sulfate (morphine) 2 mg Q4H PRN IV PAIN LEVEL 7-10 Last administered on 12/15/16 05:31; Admin Dose 2 MG; Start 12/10/16 at 18:00 Magnesium Hydroxide (Milk Of Mag) 30 ml DAILY PRN PO CONSTIPATION; Start at 18:00 Bisacodyl (Dulcolax) 5 mg DAILY PRN PO CONSTIPATION; Start 12/10/16 at 18:00 Famotidine (Pepcid) 20 mg DAILY PO Last administered on 12/15/16 09:41; Admin Dose 20 MG; Start 12/11/16 at 09:00 Hydralazine HCl (Apresoline) 10 mg Q6H PRN IV SBP>160 Last administered on 11:47; Admin Dose 10 MG; Start 12/10/16 at 18:00 Metoprolol Tartrate (Lopressor) 25 mg BID PO Last administered on 12/15/16 09: 43; Admin Dose 25 MG; Start 12/10/16 at 21:00 Atorvastatin Calcium 10 mg 10 mg DAILY@21 PO Last administered on 12/14/16 21: 42; Admin Dose 10 MG; Start 12/10/16 at 21:00 Sodium Chloride (NS) 1,000 ml @ 100 mls/hr Q10H IV Last administered on 01:30; Admin Dose 100 MLS/HR; Start 12/10/16 at 18:00 Lorazepam 1 mg 1 mg Q2H PRN IV Anxiety; Start 12/10/16 at 18:30 Multivitamins/ Thiamine HCl/ Folic Acid/Sodium Chloride (Mvi Adult/ Vitamin B1/ Folic Acid/NS) 1,011.2 ml @ 125 mls/ hr DAILY@09 IVPB Last administered on 09:43; Admin Dose 125 MLS/HR; Start 12/11/16 at 09:00 Heparin Sodium (Porcine) (Heparin (5000 Units/0.5 ml)) 5,000 unit BID SC Last administered on 12/15/16 09:47; Admin Dose 5,000 UNIT; Start 12/11/16 at 21:00 Chlordiazepoxide (Librium) 50 mg BID PO Last administered on 12/15/16 09:41; Admin Dose 50 MG; Start 12/11/16 at 21:00 Miscellaneous Information (* Miscellaneous Pharmacy Order) pharmacy to dose, g... ONCE XX ; Start 12/12/16 at 02:30 Acetaminophen/ Hydrocodone Bitart 2 tab 2 tab Q4H PRN PO pain Last administered on 12/14/16 05:38; Admin Dose 2 TAB; Start 12/13/16 at 10:30 Ertapenem 0.5 gm/ Sodium Chloride 100 ml @ 200 mls/hr Q24H IVPB Last administered on 12/14/16 17:17; Admin Dose 200 MLS/HR; Start 12/14/16 at 14:00 Amiodarone HCl/ Dextrose (Cordarone Iv/ D5W) 500 ml @ 0 mls/hr Q0M IV Last administered on 12/14/16 13:49; Admin Dose 33.4 MLS/HR; Start 12/14/16 at 13:00 Amiodarone HCl (Cordarone) 200 mg BID PO Last administered on 12/15/16 06:21; Admin Dose 200 MG; Start 12/15/16 at 06:00 Zeyad Kelly DO December 15, 2016 13:42
[2016-12-15] MEDS: ERTAPENEM SODIUM 0.5 GM in SOD CHLORIDE 0.9% 100 ML IVPB SCH (15:15)
[2016-12-15] MEDS: LORAZEPAM 2 MG INJ IV PRN ×2 (17:39→21:20)
[2016-12-15] MEDS: hydrALAzine 20 MG INJ IV PRN (17:56)
[2016-12-15] MEDS ORDERED: LABETALOL HCL 20MG INJ IV ONE (18:30)
[2016-12-15] MEDS: ATORVASTATIN 10 MG TAB PO SCH (21:26)
[2016-12-16] VITALS (19 sets, daily range): BP systolic 115–188; BP diastolic 55–82; PULSE 70–141; RESP 16–20
[2016-12-16] MEDS: SOD CHLORIDE 0.9% 1,000 ML IV SCH ×3 (04:22→23:44)
[2016-12-16 08:38] LABS: ADD SCAN DIFF NO
[2016-12-16 08:51] LABS: BASOPHILS % 0.1 % (0.0-2.0); EOSINOPHILS # 0.2 10^3/ul (0.0-0.5); EOSINOPHILS % 1.7 % (0.0-7.0); HEMATOCRIT 26.5 % (42.0-52.0); HEMOGLOBIN 9.3 g/dl (14.0-18.0); LYMPHOCYTES # 0.7 10^3/ul (0.8-2.9); LYMPHOCYTES % 5.9 % (15.0-51.0); MEAN CORPUSCULAR HEMOGLOBIN 31.1 pg (29.0-33.0); MEAN CORPUSCULAR HGB CONC 35.1 g/dl (32.0-37.0); MEAN CORPUSCULAR VOLUME 88.6 fl (82.0-101.0); MEAN PLATELET VOLUME 11.8 fl (7.4-10.4); MONOCYTE # 0.8 10^3/ul (0.3-0.9); MONOCYTES % 6.8 % (0.0-11.0); NEUTROPHIL # 10.2 10^3/ul (1.6-7.5); NEUTROPHILS % 84.7 % (39.0-77.0); PLATELET COUNT 172 10^3/UL (140-415); RED BLOOD COUNT 2.99 10^6/ul (4.70-6.10); RED CELL DISTRIBUTION WIDTH 15.9 % (11.5-14.5)
[2016-12-16] MEDS: AMIODARONE 200 MG TAB PO SCH ×2 (09:00→20:53)
[2016-12-16] MEDS: METOPROLOL 25 MG TAB PO SCH ×2 (09:00→20:54)
[2016-12-16 09:12] LABS: POTASSIUM 3.6 mmol/L (3.5-5.1)
[2016-12-16 09:14] LABS: CREATININE 4.98 mg/dl (0.61-1.24)
[2016-12-16 09:15] LABS: CALCIUM 7.8 mg/dl (8.4-10.2)
[2016-12-16] MEDS: FAMOTIDINE 20 MG TAB PO SCH (09:23)
[2016-12-16] MEDS: CHLORDIAZEPOXIDE 25 MG CAP PO SCH ×2 (09:23→20:52)
[2016-12-16] MEDS: HEPARIN 5,000 UNIT/0.5 ML VIAL SC SCH ×2 (09:24→20:55)
--- NOTE | 2016-12-16 10:13 | PN ---
Date/Time of Note Date/Time of Note DATE: 12/16/16 TIME: 10:10 Assessment/Plan VTE Prophylaxis VTE Prophylaxis Intervention: heparin Lines/Catheters IV Catheter Type (from [facility]): [facility]ine [facility] Urinary Cath still in place: No Assessment/Plan Chief Complaint/Hosp Course Acute assessment and plan 1. Acute renal insufficiency. . Continue on dialysis per nephrology recommendation. Monitor for improvement of renal function 2. Status post fall. Brain CT was negative for any acute intrarenal findings. PT following. Analgesics as needed. Continue current treatment 3. Essential hypertension. Continue antihypertensives and adjust as needed. Stable 4. Reported history of gout. No active issue at this time we will monitor for now. 5. Sepsis with underlying urinary tract infection/bacteremia with Proteus mirabilis. Continue antibiotics per ID recommendations. Of note recent blood cultures negative so far 6. Dyslipidemia. Continue statin medication 7. A. fib with RVR. Improved status post amiodarone drip. On oral amiodarone. Continue on medication and beta-anjelica. Continue with cardiology recommendations 8. Alcohol abuse. Alcohol cessation was advised. 9. Normocytic anemia. Likely secondary to alcohol abuse. S&S of bleeding. Monitor for now. DVT prophylaxis: Heparin Disposition plan: Continue dialysis. Recent blood culture negative so far. Continue with antibiotic. Discharge when medically stable and cleared by consultants Discussed plan of care with Dr. Barnett Problems: Subjective 24 Hr Interval Summary Free Text/Dictation Receiving dialysis. No apparent distress seen at this time Exam/Review of Systems Vital Signs Vitals Vital Signs Date Time Temp Pulse Resp B/P Pulse Ox O2 Delivery O2 Flow Rate FiO2 12/16/16 09:30 92 12/16/16 07:35 98.6 20 140/68 96 12/15/16 18:50 Nasal Cannula 3.0 Intake and Output 12/15/16 12/15/16 12/16/16 15:00 23:00 07:00 Intake Total 480 ml 200 ml Output Total 0 ml Balance 480 ml 200 ml Exam Constitutional: alert, oriented Psych: nl mood/affect Head: normocephalic Respiratory: normal air movement Cardiovascular: regular rate and rhythm Gastrointestinal: non-tender, soft Neurological: nl mental status, nl speech Skin: nl turgor Results Result Diagram: 12/16/16 0723 12/16/16 0723 Results 24 hrs Laboratory Tests Test 12/16/16 07:23 White Blood Count 12.0 H Red Blood Count 2.99 L Hemoglobin 9.3 L Hematocrit 26.5 L Mean Corpuscular Volume 88.6 Mean Corpuscular Hemoglobin 31.1 Mean Corpuscular Hemoglobin Concent 35.1 Red Cell Distribution Width 15.9 H Platelet Count 172 # Mean Platelet Volume 11.8 H Neutrophils % 84.7 H Lymphocytes % 5.9 L Monocytes % 6.8 Eosinophils % 1.7 Basophils % 0.1 Nucleated Red Blood Cells % 0.0 Neutrophils # 10.2 H Lymphocytes # 0.7 L Monocytes # 0.8 Eosinophils # 0.2 Basophils # 0.0 Nucleated Red Blood Cells # 0.0 Sodium Level 134 L Potassium Level 3.6 Chloride Level 98 Carbon Dioxide Level 23 Anion Gap 17 H Blood Urea Nitrogen 58 H Creatinine 4.98 H Glucose Level 85 Calcium Level 7.8 L Medications Medications Current Medications Ondansetron HCl (Zofran Inj) 4 mg Q6H PRN IV NAUSEA AND/OR VOMITING Last administered on 12/11/16 06:45; Admin Dose 4 MG; Start 12/10/16 at 18:00 Acetaminophen (Tylenol Tab) 650 mg Q6H PRN PO PAIN LEVEL 1-3 OR FEVER; Start at 18:00 Morphine Sulfate (morphine) 2 mg Q4H PRN IV PAIN LEVEL 7-10 Last administered on 12/15/16 05:31; Admin Dose 2 MG; Start 12/10/16 at 18:00 Magnesium Hydroxide (Milk Of Mag) 30 ml DAILY PRN PO CONSTIPATION; Start at 18:00 Bisacodyl (Dulcolax) 5 mg DAILY PRN PO CONSTIPATION; Start 12/10/16 at 18:00 Famotidine (Pepcid) 20 mg DAILY PO Last administered on 12/16/16 09:23; Admin Dose 20 MG; Start 12/11/16 at 09:00 Hydralazine HCl (Apresoline) 10 mg Q6H PRN IV SBP>160 Last administered on 12/15 17:56; Admin Dose 10 MG; Start 12/10/16 at 18:00 Metoprolol Tartrate (Lopressor) 25 mg BID PO Last administered on 12/15/16 21: 27; Admin Dose 25 MG; Start 12/10/16 at 21:00 Atorvastatin Calcium 10 mg 10 mg DAILY@21 PO Last administered on 12/15/16 21: 26; Admin Dose 10 MG; Start 12/10/16 at 21:00 Sodium Chloride (NS) 1,000 ml @ 100 mls/hr Q10H IV Last administered on 04:22; Admin Dose 100 MLS/HR; Start 12/10/16 at 18:00 Lorazepam 1 mg 1 mg Q2H PRN IV Anxiety Last administered on 12/15/16 21:20; Admin Dose 1 MG; Start 12/10/16 at 18:30 Multivitamins/ Thiamine HCl/ Folic Acid/Sodium Chloride (Mvi Adult/ Vitamin B1/ Folic Acid/NS) 1,011.2 ml @ 125 mls/ hr DAILY@09 IVPB Last administered on 09:43; Admin Dose 125 MLS/HR; Start 12/11/16 at 09:00 Heparin Sodium (Porcine) (Heparin (5000 Units/0.5 ml)) 5,000 unit BID SC Last administered on 12/16/16 09:24; Admin Dose 5,000 UNIT; Start 12/11/16 at 21:00 Chlordiazepoxide (Librium) 50 mg BID PO Last administered on 12/16/16 09:23; Admin Dose 50 MG; Start 12/11/16 at 21:00 Miscellaneous Information (* Miscellaneous Pharmacy Order) pharmacy to dose, g... ONCE XX ; Start 12/12/16 at 02:30 Acetaminophen/ Hydrocodone Bitart 2 tab 2 tab Q4H PRN PO pain Last administered on 12/14/16 05:38; Admin Dose 2 TAB; Start 12/13/16 at 10:30 Ertapenem 0.5 gm/ Sodium Chloride 100 ml @ 200 mls/hr Q24H IVPB Last administered on 12/15/16 15:15; Admin Dose 200 MLS/HR; Start 12/14/16 at 14:00 Amiodarone HCl/ Dextrose (Cordarone Iv/ D5W) 500 ml @ 0 mls/hr Q0M IV Last administered on 12/14/16 13:49; Admin Dose 33.4 MLS/HR; Start 12/14/16 at 13:00 Amiodarone HCl (Cordarone) 200 mg BID PO Last administered on 12/15/16t 21:27; Admin Dose 200 MG; Start 12/15/16 at 06:00 SANJAY ANDREA December 16, 2016 10:13
[2016-12-16] MEDS: MULTIVITAMINS 10 ML, THIAMINE 100 MG, FOLIC ACID 1 MG in SOD CHLORIDE 0.9% 1,000 ML IVPB SCH (11:30)
--- NOTE | 2016-12-16 11:36 | CONS ---
Date/Time of Note Date/Time of Note DATE: 12/16/16 TIME: 11:34 Assessment/Plan Assessment/Plan Additional Assessment/Plan 1. Acute kidney injury, multifactorial, not improving despite being on IVF hydration, BUN/Cr persistently high ,.started on HD during this admission 2. Hyponatremia 3. Status post fall, which was a mechanical fall, but likely due to the hyponatremia. CT brain is negative. 4. Possible history of chronic kidney disease secondary to hypertensive nephrosclerosis. 5. History of hypertension. 6. History of gout. 7. History of hyperlipidemia. 8. Atrial fibrillation, rate controlled. 9. History of alcohol abuse. 10. Thrombocytopenia secondary to alcohol abuse. 11. sepsis due to UTI and bacteremia with Blood cx and urine Cx growing proteus PLAN: ,sarted on HD through right iJ danielle HD catheter , s/p HD today, no plan for HD tomorrow, will collect 24 hr urine for creatinien clearance and protein to decide if pt will need nursing home HD or not Blood cx and Urine cx grew proteus - repeat Blood cx drawn today- pending , IV abx we have to wait for Follow up blood cx negative before considering Permacath will follow up Consultation Date/Type/Reason Admit Date/Time December 10, 2016 at 16:57 Type of Consultation: NEPHROLOGY Referring Provider: CLOVIS SHORE 24 HR Interval Summary Free Text/Dictation s/p HD today, Pt has right IJ danielle, making urine Exam/Review of Systems Vital Signs Vitals Vital Signs Date Time Temp Pulse Resp B/P Pulse Ox O2 Delivery O2 Flow Rate FiO2 12/16/16 09:30 82 18 12/16/16 07:35 98.6 140/68 96 12/15/16 18:50 Nasal Cannula 3.0 Intake and Output 12/15/16 12/15/16 12/16/16 15:00 23:00 07:00 Intake Total 480 ml 200 ml Output Total 0 ml Balance 480 ml 200 ml Exam Constitutional: alert Eyes: nl conjunctiva ENMT: nl external ears & nose Neck: supple Respiratory: clear to auscultation Cardiovascular: regular rate and rhythm Gastrointestinal: soft Results Result Diagram: 12/16/16 0723 12/16/16 0723 Results 24 hrs Laboratory Tests Test 12/16/16 07:23 White Blood Count 12.0 H Red Blood Count 2.99 L Hemoglobin 9.3 L Hematocrit 26.5 L Mean Corpuscular Volume 88.6 Mean Corpuscular Hemoglobin 31.1 Mean Corpuscular Hemoglobin Concent 35.1 Red Cell Distribution Width 15.9 H Platelet Count 172 # Mean Platelet Volume 11.8 H Neutrophils % 84.7 H Lymphocytes % 5.9 L Monocytes % 6.8 Eosinophils % 1.7 Basophils % 0.1 Nucleated Red Blood Cells % 0.0 Neutrophils # 10.2 H Lymphocytes # 0.7 L Monocytes # 0.8 Eosinophils # 0.2 Basophils # 0.0 Nucleated Red Blood Cells # 0.0 Sodium Level 134 L Potassium Level 3.6 Chloride Level 98 Carbon Dioxide Level 23 Anion Gap 17 H Blood Urea Nitrogen 58 H Creatinine 4.98 H Glucose Level 85 Calcium Level 7.8 L Medications Medications Current Medications Ondansetron HCl (Zofran Inj) 4 mg Q6H PRN IV NAUSEA AND/OR VOMITING Last administered on 12/11/16 06:45; Admin Dose 4 MG; Start 12/10/16 at 18:00 Acetaminophen (Tylenol Tab) 650 mg Q6H PRN PO PAIN LEVEL 1-3 OR FEVER; Start at 18:00 Morphine Sulfate (morphine) 2 mg Q4H PRN IV PAIN LEVEL 7-10 Last administered on 12/15/16 05:31; Admin Dose 2 MG; Start 12/10/16 at 18:00 Magnesium Hydroxide (Milk Of Mag) 30 ml DAILY PRN PO CONSTIPATION; Start at 18:00 Bisacodyl (Dulcolax) 5 mg DAILY PRN PO CONSTIPATION; Start 12/10/16 at 18:00 Famotidine (Pepcid) 20 mg DAILY PO Last administered on 12/16/16 09:23; Admin Dose 20 MG; Start 12/11/16 at 09:00 Hydralazine HCl (Apresoline) 10 mg Q6H PRN IV SBP>160 Last administered on 12/15 17:56; Admin Dose 10 MG; Start 12/10/16 at 18:00 Metoprolol Tartrate (Lopressor) 25 mg BID PO Last administered on 12/15/16 21: 27; Admin Dose 25 MG; Start 12/10/16 at 21:00 Atorvastatin Calcium 10 mg 10 mg DAILY@21 PO Last administered on 12/15/16 21: 26; Admin Dose 10 MG; Start 12/10/16 at 21:00 Sodium Chloride (NS) 1,000 ml @ 100 mls/hr Q10H IV Last administered on 04:22; Admin Dose 100 MLS/HR; Start 12/10/16 at 18:00 Lorazepam 1 mg 1 mg Q2H PRN IV Anxiety Last administered on 12/15/16 21:20; Admin Dose 1 MG; Start 12/10/16 at 18:30 Multivitamins/ Thiamine HCl/ Folic Acid/Sodium Chloride (Mvi Adult/ Vitamin B1/ Folic Acid/NS) 1,011.2 ml @ 125 mls/ hr DAILY@09 IVPB Last administered on 11:30; Admin Dose 125 MLS/HR; Start 12/11/16 at 09:00 Heparin Sodium (Porcine) (Heparin (5000 Units/0.5 ml)) 5,000 unit BID SC Last administered on 12/16/16 09:24; Admin Dose 5,000 UNIT; Start 12/11/16 at 21:00 Chlordiazepoxide (Librium) 50 mg BID PO Last administered on 12/16/16 09:23; Admin Dose 50 MG; Start 12/11/16 at 21:00 Miscellaneous Information (* Miscellaneous Pharmacy Order) pharmacy to dose, g... ONCE XX ; Start 12/12/16 at 02:30 Acetaminophen/ Hydrocodone Bitart 2 tab 2 tab Q4H PRN PO pain Last administered on 12/14/16 05:38; Admin Dose 2 TAB; Start 12/13/16 at 10:30 Ertapenem 0.5 gm/ Sodium Chloride 100 ml @ 200 mls/hr Q24H IVPB Last administered on 12/15/16 15:15; Admin Dose 200 MLS/HR; Start 12/14/16 at 14:00 Amiodarone HCl/ Dextrose (Cordarone Iv/ D5W) 500 ml @ 0 mls/hr Q0M IV Last administered on 12/14/16 13:49; Admin Dose 33.4 MLS/HR; Start 12/14/16 at 13:00 Amiodarone HCl (Cordarone) 200 mg BID PO Last administered on 12/15/16 21:27; Admin Dose 200 MG; Start 12/15/16 at 06:00 MADELYN MIRANDA MD December 16, 2016 11:36
--- NOTE | 2016-12-16 13:45 | CONS ---
Date/Time of Note Date/Time of Note DATE: 12/16/16 TIME: 13:44 Assessment/Plan Assessment/Plan Chief Complaint/Hosp Course SUBJECTIVE: No events, looks comfortable. No fevers MICROBIOLOGY: Blood and urine culture growing Proteus mirabilis susceptible to all antibiotics. ANTIMICROBIALS: Invanz Indwelling: RIJ danielle 12/13 DIAGNOSTICS: Ultrasound of the abdomen revealed nonobstructive bilateral renal calculi. Chest x-ray showed no acute cardiopulmonary process. CT of the brain on admission revealed no acute intracranial pathology. Renal ultrasound revealed no evidence of obstructive uropathy. PHYSICAL EXAMINATION: GENERAL: Obese well-developed, middle-aged man who is alert, in no distress. HEENT: Head atraumatic, normocephalic. Sclerae anicteric. Buccal mucosa dry. NECK: Supple, trachea midline. CHEST: Rise symmetrical. Breath sounds clear. HEART: S1, S2. ABDOMEN: Soft, bowel tones present. EXTREMITIES: Without cyanosis. ASSESSMENT: 1. Sepsis with acute encephalopathy on admission, acute renal failure. 2. Proteus mirabilis urinary tract infection with bacteremia. 3. Acute kidney failure, possible chronic kidney disease. 4. History of gout. 5. Hypertension. 6. Atrial fibrillation. 7. History of alcohol abuse. PLAN: Remains stable, repeat bld cx negative, continue abx, HD per renal DW staff Problems: Consultation Date/Type/Reason Admit Date/Time December 10, 2016 at 16:57 Type of Consultation: ID Referring Provider: CLOVIS SHORE Exam/Review of Systems Vital Signs Vitals Vital Signs Date Time Temp Pulse Resp B/P Pulse Ox O2 Delivery O2 Flow Rate FiO2 12/16/16 12:21 99.0 82 18 117/55 98 12/15/16 18:50 Nasal Cannula 3.0 Intake and Output 12/15/16 12/15/16 12/16/16 15:00 23:00 07:00 Intake Total 480 ml 200 ml Output Total 0 ml Balance 480 ml 200 ml Results Result Diagram: 12/16/16 0723 12/16/16 0723 Results 24 hrs Laboratory Tests Test 12/16/16 07:23 White Blood Count 12.0 H Red Blood Count 2.99 L Hemoglobin 9.3 L Hematocrit 26.5 L Mean Corpuscular Volume 88.6 Mean Corpuscular Hemoglobin 31.1 Mean Corpuscular Hemoglobin Concent 35.1 Red Cell Distribution Width 15.9 H Platelet Count 172 # Mean Platelet Volume 11.8 H Neutrophils % 84.7 H Lymphocytes % 5.9 L Monocytes % 6.8 Eosinophils % 1.7 Basophils % 0.1 Nucleated Red Blood Cells % 0.0 Neutrophils # 10.2 H Lymphocytes # 0.7 L Monocytes # 0.8 Eosinophils # 0.2 Basophils # 0.0 Nucleated Red Blood Cells # 0.0 Sodium Level 134 L Potassium Level 3.6 Chloride Level 98 Carbon Dioxide Level 23 Anion Gap 17 H Blood Urea Nitrogen 58 H Creatinine 4.98 H Glucose Level 85 Calcium Level 7.8 L Medications Medications Current Medications Ondansetron HCl (Zofran Inj) 4 mg Q6H PRN IV NAUSEA AND/OR VOMITING Last administered on 12/11/16 06:45; Admin Dose 4 MG; Start 12/10/16 at 18:00 Acetaminophen (Tylenol Tab) 650 mg Q6H PRN PO PAIN LEVEL 1-3 OR FEVER; Start at 18:00 Morphine Sulfate (morphine) 2 mg Q4H PRN IV PAIN LEVEL 7-10 Last administered on 12/15/16 05:31; Admin Dose 2 MG; Start 12/10/16 at 18:00 Magnesium Hydroxide (Milk Of Mag) 30 ml DAILY PRN PO CONSTIPATION; Start at 18:00 Bisacodyl (Dulcolax) 5 mg DAILY PRN PO CONSTIPATION; Start 12/10/16 at 18:00 Famotidine (Pepcid) 20 mg DAILY PO Last administered on 12/16/16 09:23; Admin Dose 20 MG; Start 12/11/16 at 09:00 Hydralazine HCl (Apresoline) 10 mg Q6H PRN IV SBP>160 Last administered on 12/15 17:56; Admin Dose 10 MG; Start 12/10/16 at 18:00 Metoprolol Tartrate (Lopressor) 25 mg BID PO Last administered on 12/15/16 21: 27; Admin Dose 25 MG; Start 12/10/16 at 21:00 Atorvastatin Calcium 10 mg 10 mg DAILY@21 PO Last administered on 12/15/16 21: 26; Admin Dose 10 MG; Start 12/10/16 at 21:00 Sodium Chloride (NS) 1,000 ml @ 100 mls/hr Q10H IV Last administered on 04:22; Admin Dose 100 MLS/HR; Start 12/10/16 at 18:00 Lorazepam 1 mg 1 mg Q2H PRN IV Anxiety Last administered on 12/15/16 21:20; Admin Dose 1 MG; Start 12/10/16 at 18:30 Multivitamins/ Thiamine HCl/ Folic Acid/Sodium Chloride (Mvi Adult/ Vitamin B1/ Folic Acid/NS) 1,011.2 ml @ 125 mls/ hr DAILY@09 IVPB Last administered on 11:30; Admin Dose 125 MLS/HR; Start 12/11/16 at 09:00 Heparin Sodium (Porcine) (Heparin (5000 Units/0.5 ml)) 5,000 unit BID SC Last administered on 12/16/16 09:24; Admin Dose 5,000 UNIT; Start 12/11/16 at 21:00 Chlordiazepoxide (Librium) 50 mg BID PO Last administered on 12/16/16 09:23; Admin Dose 50 MG; Start 12/11/16 at 21:00 Miscellaneous Information (* Miscellaneous Pharmacy Order) pharmacy to dose, g... ONCE XX ; Start 12/12/16 at 02:30 Acetaminophen/ Hydrocodone Bitart 2 tab 2 tab Q4H PRN PO pain Last administered on 12/14/16 05:38; Admin Dose 2 TAB; Start 12/13/16 at 10:30 Ertapenem 0.5 gm/ Sodium Chloride 100 ml @ 200 mls/hr Q24H IVPB Last administered on 12/15/16 15:15; Admin Dose 200 MLS/HR; Start 12/14/16 at 14:00 Amiodarone HCl/ Dextrose (Cordarone Iv/ D5W) 500 ml @ 0 mls/hr Q0M IV Last administered on 12/14/16 13:49; Admin Dose 33.4 MLS/HR; Start 12/14/16 at 13:00 Amiodarone HCl (Cordarone) 200 mg BID PO Last administered on 12/15/16 21:27; Admin Dose 200 MG; Start 12/15/16 at 06:00 CHERRIE JAUREGUI NP December 16, 2016 13:45
[2016-12-16] MEDS: ERTAPENEM SODIUM 0.5 GM in SOD CHLORIDE 0.9% 100 ML IVPB SCH (14:55)
--- NOTE | 2016-12-16 16:18 | CONS ---
Date/Time of Note Date/Time of Note DATE: 12/16/16 TIME: 16:16 Assessment/Plan Assessment/Plan Additional Assessment/Plan Acute kidney injury Status post fall Sepsis with bacteremia Paroxysmal atrial fibrillation, currently sinus rhythm History of hypertension Recent UTI -Patient remains in sinus rhythm. Continue p.o. amiodarone. Fluid management as per our nephrology colleagues. Consultation Date/Type/Reason Admit Date/Time December 10, 2016 at 16:57 Type of Consultation: cv Referring Provider: CLOVIS SHORE 24 HR Interval Summary Free Text/Dictation Patient sleeping, denies complaints when awakened Exam/Review of Systems Vital Signs Vitals Vital Signs Date Time Temp Pulse Resp B/P Pulse Ox O2 Delivery O2 Flow Rate FiO2 12/16/16 16:06 73 12/16/16 15:46 98.6 16 142/67 100 12/15/16 18:50 Nasal Cannula 3.0 Intake and Output 12/15/16 12/15/16 12/16/16 15:00 23:00 07:00 Intake Total 480 ml 200 ml Output Total 0 ml Balance 480 ml 200 ml Exam Sleeping but arousable, no apparent distress Constitutional: obese Head: normocephalic Respiratory: other (Coarse breath sounds bilaterally, no wheezing) Cardiovascular: other, regular rate and rhythm Gastrointestinal: bowel sounds, non-tender, soft Extremities: edema (Trace) Results Result Diagram: 12/16/16 0723 12/16/16 0723 Results 24 hrs Laboratory Tests Test 12/16/16 07:23 White Blood Count 12.0 H Red Blood Count 2.99 L Hemoglobin 9.3 L Hematocrit 26.5 L Mean Corpuscular Volume 88.6 Mean Corpuscular Hemoglobin 31.1 Mean Corpuscular Hemoglobin Concent 35.1 Red Cell Distribution Width 15.9 H Platelet Count 172 # Mean Platelet Volume 11.8 H Neutrophils % 84.7 H Lymphocytes % 5.9 L Monocytes % 6.8 Eosinophils % 1.7 Basophils % 0.1 Nucleated Red Blood Cells % 0.0 Neutrophils # 10.2 H Lymphocytes # 0.7 L Monocytes # 0.8 Eosinophils # 0.2 Basophils # 0.0 Nucleated Red Blood Cells # 0.0 Sodium Level 134 L Potassium Level 3.6 Chloride Level 98 Carbon Dioxide Level 23 Anion Gap 17 H Blood Urea Nitrogen 58 H Creatinine 4.98 H Glucose Level 85 Calcium Level 7.8 L Medications Medications Current Medications Ondansetron HCl (Zofran Inj) 4 mg Q6H PRN IV NAUSEA AND/OR VOMITING Last administered on 12/11/16 06:45; Admin Dose 4 MG; Start 12/10/16 at 18:00 Acetaminophen (Tylenol Tab) 650 mg Q6H PRN PO PAIN LEVEL 1-3 OR FEVER; Start at 18:00 Morphine Sulfate (morphine) 2 mg Q4H PRN IV PAIN LEVEL 7-10 Last administered on 12/15/16 05:31; Admin Dose 2 MG; Start 12/10/16 at 18:00 Magnesium Hydroxide (Milk Of Mag) 30 ml DAILY PRN PO CONSTIPATION; Start at 18:00 Bisacodyl (Dulcolax) 5 mg DAILY PRN PO CONSTIPATION; Start 12/10/16 at 18:00 Famotidine (Pepcid) 20 mg DAILY PO Last administered on 12/16/16 09:23; Admin Dose 20 MG; Start 12/11/16 at 09:00 Hydralazine HCl (Apresoline) 10 mg Q6H PRN IV SBP>160 Last administered on 12/15 17:56; Admin Dose 10 MG; Start 12/10/16 at 18:00 Metoprolol Tartrate (Lopressor) 25 mg BID PO Last administered on 12/15/16 21: 27; Admin Dose 25 MG; Start 12/10/16 at 21:00 Atorvastatin Calcium 10 mg 10 mg DAILY@21 PO Last administered on 12/15/16 21: 26; Admin Dose 10 MG; Start 12/10/16 at 21:00 Sodium Chloride (NS) 1,000 ml @ 100 mls/hr Q10H IV Last administered on 15:26; Admin Dose 100 MLS/HR; Start 12/10/16 at 18:00 Lorazepam 1 mg 1 mg Q2H PRN IV Anxiety Last administered on 12/15/16 21:20; Admin Dose 1 MG; Start 12/10/16 at 18:30 Multivitamins/ Thiamine HCl/ Folic Acid/Sodium Chloride (Mvi Adult/ Vitamin B1/ Folic Acid/NS) 1,011.2 ml @ 125 mls/ hr DAILY@09 IVPB Last administered on 11:30; Admin Dose 125 MLS/HR; Start 12/11/16 at 09:00 Heparin Sodium (Porcine) (Heparin (5000 Units/0.5 ml)) 5,000 unit BID SC Last administered on 12/16/16 09:24; Admin Dose 5,000 UNIT; Start 12/11/16 at 21:00 Chlordiazepoxide (Librium) 50 mg BID PO Last administered on 12/16/16 09:23; Admin Dose 50 MG; Start 12/11/16 at 21:00 Miscellaneous Information (* Miscellaneous Pharmacy Order) pharmacy to dose, g... ONCE XX ; Start 12/12/16 at 02:30 Acetaminophen/ Hydrocodone Bitart 2 tab 2 tab Q4H PRN PO pain Last administered on 12/14/16 05:38; Admin Dose 2 TAB; Start 12/13/16 at 10:30 Ertapenem 0.5 gm/ Sodium Chloride 100 ml @ 200 mls/hr Q24H IVPB Last administered on 12/16/16 14:55; Admin Dose 200 MLS/HR; Start 12/14/16 at 14:00 Amiodarone HCl/ Dextrose (Cordarone Iv/ D5W) 500 ml @ 0 mls/hr Q0M IV Last administered on 12/14/16 13:49; Admin Dose 33.4 MLS/HR; Start 12/14/16 at 13:00 Amiodarone HCl (Cordarone) 200 mg BID PO Last administered on 12/15/16 21:27; Admin Dose 200 MG; Start 12/15/16 at 06:00 Zeyad Kelly DO December 16, 2016 16:17
[2016-12-16] MEDS: ATORVASTATIN 10 MG TAB PO SCH (20:53)
[2016-12-16] MEDS ORDERED: DILTIAZEM 25 MG INJ IV ONE (22:30)
[2016-12-16] MEDS ORDERED: DILTIAZEM-D5W 125MG/125ML DRIP 125 ML IV SCH (22:45)
[2016-12-17] VITALS (14 sets, daily range): BP systolic 120–168; BP diastolic 62–78; PULSE 73–123; RESP 15–20
[2016-12-17] MEDS: SOD CHLORIDE 0.9% 1,000 ML IV SCH ×2 (06:05→21:35)
[2016-12-17 07:53] LABS: ADD SCAN DIFF NO
[2016-12-17 08:01] LABS: BASOPHILS % 0.1 % (0.0-2.0); EOSINOPHILS # 0.1 10^3/ul (0.0-0.5); EOSINOPHILS % 1.2 % (0.0-7.0); HEMATOCRIT 24.8 % (42.0-52.0); HEMOGLOBIN 8.4 g/dl (14.0-18.0); LYMPHOCYTES # 0.6 10^3/ul (0.8-2.9); LYMPHOCYTES % 7.9 % (15.0-51.0); MEAN CORPUSCULAR HGB CONC 33.9 g/dl (32.0-37.0); MEAN CORPUSCULAR VOLUME 91.5 fl (82.0-101.0); MEAN PLATELET VOLUME 11.6 fl (7.4-10.4); MONOCYTE # 0.7 10^3/ul (0.3-0.9); MONOCYTES % 8.9 % (0.0-11.0); NEUTROPHIL # 6.5 10^3/ul (1.6-7.5); NEUTROPHILS % 80.9 % (39.0-77.0); PLATELET COUNT 173 10^3/UL (140-415); RED BLOOD COUNT 2.71 10^6/ul (4.70-6.10); RED CELL DISTRIBUTION WIDTH 15.9 % (11.5-14.5); WHITE BLOOD COUNT 8.1 10^3/ul (4.8-10.8)
[2016-12-17] MEDS: MULTIVITAMINS 10 ML, THIAMINE 100 MG, FOLIC ACID 1 MG in SOD CHLORIDE 0.9% 1,000 ML IVPB SCH (08:12)
[2016-12-17 08:32] LABS: CALCIUM 7.8 mg/dl (8.4-10.2); CREATININE 4.25 mg/dl (0.61-1.24); POTASSIUM 3.6 mmol/L (3.5-5.1)
--- NOTE | 2016-12-17 10:11 | PN ---
Date/Time of Note Date/Time of Note DATE: 12/17/16 TIME: 10:05 Assessment/Plan VTE Prophylaxis VTE Prophylaxis Intervention: heparin Lines/Catheters IV Catheter Type (from Nrs): Peripheral IV Assessment/Plan Chief Complaint/Hosp Course Acute assessment and plan 1. Acute renal insufficiency. . Continue on dialysis per nephrology recommendation. Monitor renal panel. tentative plan for permacath placement 2. Status post fall. Brain CT was negative for any acute intrarenal findings. PT following. Analgesics as needed 3. Essential hypertension. Continue antihypertensives and adjust as needed. Stable 4. Reported history of gout. No active issue at this time we will monitor for now. 5. Sepsis with underlying urinary tract infection/bacteremia with Proteus mirabilis. Continue antibiotics per ID recommendations, repeat blood cx negative 6. Dyslipidemia. Continue statin medication 7. A. fib with RVR. cont amiodarone and telemetry monitoring 8. Alcohol abuse. Alcohol cessation was advised. 9. Normocytic anemia. Likely secondary to alcohol abuse. S&S of bleeding. Monitor for now. DVT prophylaxis: Heparin Disposition plan: Continue on dialysis. tentative plan for permacath placement. f/u nephro recs Discussed plan of care with Dr. Barnett Problems: Subjective 24 Hr Interval Summary Free Text/Dictation No apparent distress seen. Does report better breathing. Exam/Review of Systems Vital Signs Vitals Vital Signs Date Time Temp Pulse Resp B/P Pulse Ox O2 Delivery O2 Flow Rate FiO2 12/17/16 08:10 93 12/17/16 04:00 99.0 15 120/62 98 12/15/16 18:50 Nasal Cannula 3.0 Intake and Output 12/16/16 12/16/16 12/17/16 15:00 23:00 07:00 Intake Total 500 ml 1011.2 ml 1340 ml Output Total 2500 ml 0 ml Balance -2000 ml 1011.2 ml 1340 ml Exam Constitutional: alert, oriented Psych: nl mood/affect Head: normocephalic Neck: supple, No jvd Respiratory: clear to auscultation, normal air movement Cardiovascular: irregular rhythm Gastrointestinal: non-tender, soft Neurological: nl mental status, nl speech Results Result Diagram: 12/17/16 0650 12/17/16 0650 Results 24 hrs Laboratory Tests Test 12/17/16 06:50 White Blood Count 8.1 # Red Blood Count 2.71 L Hemoglobin 8.4 L Hematocrit 24.8 L Mean Corpuscular Volume 91.5 Mean Corpuscular Hemoglobin 31.0 Mean Corpuscular Hemoglobin Concent 33.9 Red Cell Distribution Width 15.9 H Platelet Count 173 Mean Platelet Volume 11.6 H Neutrophils % 80.9 H Lymphocytes % 7.9 L Monocytes % 8.9 Eosinophils % 1.2 Basophils % 0.1 Nucleated Red Blood Cells % 0.0 Neutrophils # 6.5 Lymphocytes # 0.6 L Monocytes # 0.7 Eosinophils # 0.1 Basophils # 0.0 Nucleated Red Blood Cells # 0.0 Sodium Level 133 L Potassium Level 3.6 Chloride Level 104 Carbon Dioxide Level 23 Anion Gap 10 # Blood Urea Nitrogen 43 #H Creatinine 4.25 H Glucose Level 98 Calcium Level 7.8 L Medications Medications Current Medications Ondansetron HCl (Zofran Inj) 4 mg Q6H PRN IV NAUSEA AND/OR VOMITING Last administered on 12/11/16 06:45; Admin Dose 4 MG; Start 12/10/16 at 18:00 Acetaminophen (Tylenol Tab) 650 mg Q6H PRN PO PAIN LEVEL 1-3 OR FEVER; Start at 18:00 Morphine Sulfate (morphine) 2 mg Q4H PRN IV PAIN LEVEL 7-10 Last administered on 12/15/16 05:31; Admin Dose 2 MG; Start 12/10/16 at 18:00 Magnesium Hydroxide (Milk Of Mag) 30 ml DAILY PRN PO CONSTIPATION; Start at 18:00 Bisacodyl (Dulcolax) 5 mg DAILY PRN PO CONSTIPATION; Start 12/10/16 at 18:00 Famotidine (Pepcid) 20 mg DAILY PO Last administered on 12/16/16 09:23; Admin Dose 20 MG; Start 12/11/16 at 09:00 Hydralazine HCl (Apresoline) 10 mg Q6H PRN IV SBP>160 Last administered on 12/15 17:56; Admin Dose 10 MG; Start 12/10/16 at 18:00 Metoprolol Tartrate (Lopressor) 25 mg BID PO Last administered on 12/16/16 20: 54; Admin Dose 25 MG; Start 12/10/16 at 21:00 Atorvastatin Calcium 10 mg 10 mg DAILY@21 PO Last administered on 12/16/16 20: 53; Admin Dose 10 MG; Start 12/10/16 at 21:00 Sodium Chloride (NS) 1,000 ml @ 100 mls/hr Q10H IV Last administered on 06:05; Admin Dose 100 MLS/HR; Start 12/10/16 at 18:00 Lorazepam 1 mg 1 mg Q2H PRN IV Anxiety Last administered on 12/15/16 21:20; Admin Dose 1 MG; Start 12/10/16 at 18:30 Multivitamins/ Thiamine HCl/ Folic Acid/Sodium Chloride (Mvi Adult/ Vitamin B1/ Folic Acid/NS) 1,011.2 ml @ 125 mls/ hr DAILY@09 IVPB Last administered on 08:12; Admin Dose 125 MLS/HR; Start 12/11/16 at 09:00 Heparin Sodium (Porcine) (Heparin (5000 Units/0.5 ml)) 5,000 unit BID SC Last administered on 12/16/16 20:55; Admin Dose 5,000 UNIT; Start 12/11/16 at 21:00 Chlordiazepoxide (Librium) 50 mg BID PO Last administered on 12/16/16 20:52; Admin Dose 50 MG; Start 12/11/16 at 21:00 Miscellaneous Information (* Miscellaneous Pharmacy Order) pharmacy to dose, g... ONCE XX ; Start 12/12/16 at 02:30 Acetaminophen/ Hydrocodone Bitart 2 tab 2 tab Q4H PRN PO pain Last administered on 12/14/16 05:38; Admin Dose 2 TAB; Start 12/13/16 at 10:30 Ertapenem 0.5 gm/ Sodium Chloride 100 ml @ 200 mls/hr Q24H IVPB Last administered on 12/16/16 14:55; Admin Dose 200 MLS/HR; Start 12/14/16 at 14:00 Amiodarone HCl/ Dextrose (Cordarone Iv/ D5W) 500 ml @ 0 mls/hr Q0M IV Last administered on 12/14/16 13:49; Admin Dose 33.4 MLS/HR; Start 12/14/16 at 13:00 Amiodarone HCl 200 mg 200 mg BID PO Last administered on 12/16/16 20:53; Admin Dose 200 MG; Start 12/15/16 at 06:00 Diltiazem HCl (Cardizem-D5W 125 Mg/125 ml Drip) 125 ml @ 5 mls/hr TITRATE IV ; Start 12/16/16 at 22:45 SANJAY ANDREA December 17, 2016 10:11
[2016-12-17] MEDS: AMIODARONE 200 MG TAB PO SCH ×2 (10:12→21:30)
[2016-12-17] MEDS: HYDROCODONE/APAP (5/325) TAB PO PRN (10:12)
[2016-12-17] MEDS: CHLORDIAZEPOXIDE 25 MG CAP PO SCH ×2 (10:12→21:29)
[2016-12-17] MEDS: METOPROLOL 25 MG TAB PO SCH (10:13)
[2016-12-17] MEDS: FAMOTIDINE 20 MG TAB PO SCH (10:13)
[2016-12-17] MEDS: HEPARIN 5,000 UNIT/0.5 ML VIAL SC SCH ×2 (10:20→21:31)
--- NOTE | 2016-12-17 11:37 | CONS ---
Date/Time of Note Date/Time of Note DATE: 12/17/16 TIME: 11:35 Assessment/Plan Assessment/Plan Additional Assessment/Plan 1. Acute kidney injury, multifactorial, not improving despite being on IVF hydration, BUN/Cr persistently high ,.started on HD during this admission 2. Hyponatremia 3. Status post fall, which was a mechanical fall, but likely due to the hyponatremia. CT brain is negative. 4. Possible history of chronic kidney disease secondary to hypertensive nephrosclerosis. 5. History of hypertension. 6. History of gout. 7. History of hyperlipidemia. 8. Atrial fibrillation, rate controlled. 9. History of alcohol abuse. 10. Thrombocytopenia secondary to alcohol abuse. 11. sepsis due to UTI and bacteremia with Blood cx and urine Cx growing proteus PLAN: ,sarted on HD through right iJ danielle HD catheter , s/p HD yesterday, gettign collection of 24 hr urine for creatinien clearance and protein to decide if pt will need shelter HD or not Blood cx and Urine cx grew proteus - on IV abx Follow up blood cx on 12/16/16 negative to date- will wait for one more day to be negativebefore considering Permacath will follow up Consultation Date/Type/Reason Admit Date/Time December 10, 2016 at 16:57 Type of Consultation: NEPHROLOGY Referring Provider: CLOVIS SHORE 24 HR Interval Summary Free Text/Dictation doing ok, BP stable, gettign 24 hr urine collection, Plan for HD tomorrow depending on urine output Exam/Review of Systems Vital Signs Vitals Vital Signs Date Time Temp Pulse Resp B/P Pulse Ox O2 Delivery O2 Flow Rate FiO2 12/17/16 10:43 73 12/17/16 08:30 2.0 12/17/16 04:00 99.0 15 120/62 98 12/15/16 18:50 Nasal Cannula Intake and Output 12/16/16 12/16/16 12/17/16 15:00 23:00 07:00 Intake Total 500 ml 1011.2 ml 1340 ml Output Total 2500 ml 0 ml Balance -2000 ml 1011.2 ml 1340 ml Exam Constitutional: alert Eyes: nl conjunctiva ENMT: nl external ears & nose Neck: supple Respiratory: clear to auscultation Cardiovascular: regular rate and rhythm Gastrointestinal: soft Results Result Diagram: 12/17/16 0650 12/17/16 0650 Results 24 hrs Laboratory Tests Test 12/17/16 06:50 White Blood Count 8.1 # Red Blood Count 2.71 L Hemoglobin 8.4 L Hematocrit 24.8 L Mean Corpuscular Volume 91.5 Mean Corpuscular Hemoglobin 31.0 Mean Corpuscular Hemoglobin Concent 33.9 Red Cell Distribution Width 15.9 H Platelet Count 173 Mean Platelet Volume 11.6 H Neutrophils % 80.9 H Lymphocytes % 7.9 L Monocytes % 8.9 Eosinophils % 1.2 Basophils % 0.1 Nucleated Red Blood Cells % 0.0 Neutrophils # 6.5 Lymphocytes # 0.6 L Monocytes # 0.7 Eosinophils # 0.1 Basophils # 0.0 Nucleated Red Blood Cells # 0.0 Sodium Level 133 L Potassium Level 3.6 Chloride Level 104 Carbon Dioxide Level 23 Anion Gap 10 # Blood Urea Nitrogen 43 #H Creatinine 4.25 H Glucose Level 98 Calcium Level 7.8 L Medications Medications Current Medications Ondansetron HCl (Zofran Inj) 4 mg Q6H PRN IV NAUSEA AND/OR VOMITING Last administered on 12/11/16 06:45; Admin Dose 4 MG; Start 12/10/16 at 18:00 Acetaminophen (Tylenol Tab) 650 mg Q6H PRN PO PAIN LEVEL 1-3 OR FEVER; Start at 18:00 Morphine Sulfate (morphine) 2 mg Q4H PRN IV PAIN LEVEL 7-10 Last administered on 12/15/16 05:31; Admin Dose 2 MG; Start 12/10/16 at 18:00 Magnesium Hydroxide (Milk Of Mag) 30 ml DAILY PRN PO CONSTIPATION; Start at 18:00 Bisacodyl (Dulcolax) 5 mg DAILY PRN PO CONSTIPATION; Start 12/10/16 at 18:00 Famotidine (Pepcid) 20 mg DAILY PO Last administered on 12/17/16 10:13; Admin Dose 20 MG; Start 12/11/16 at 09:00 Hydralazine HCl (Apresoline) 10 mg Q6H PRN IV SBP>160 Last administered on 12/15 17:56; Admin Dose 10 MG; Start 12/10/16 at 18:00 Metoprolol Tartrate (Lopressor) 25 mg BID PO Last administered on 12/17/16 10: 13; Admin Dose 25 MG; Start 12/10/16 at 21:00 Atorvastatin Calcium 10 mg 10 mg DAILY@21 PO Last administered on 12/16/16 20: 53; Admin Dose 10 MG; Start 12/10/16 at 21:00 Sodium Chloride (NS) 1,000 ml @ 100 mls/hr Q10H IV Last administered on 06:05; Admin Dose 100 MLS/HR; Start 12/10/16 at 18:00 Lorazepam 1 mg 1 mg Q2H PRN IV Anxiety Last administered on 12/15/16 21:20; Admin Dose 1 MG; Start 12/10/16 at 18:30 Multivitamins/ Thiamine HCl/ Folic Acid/Sodium Chloride (Mvi Adult/ Vitamin B1/ Folic Acid/NS) 1,011.2 ml @ 125 mls/ hr DAILY@09 IVPB Last administered on 08:12; Admin Dose 125 MLS/HR; Start 12/11/16 at 09:00 Heparin Sodium (Porcine) (Heparin (5000 Units/0.5 ml)) 5,000 unit BID SC Last administered on 12/17/16 10:20; Admin Dose 5,000 UNIT; Start 12/11/16 at 21:00 Chlordiazepoxide (Librium) 50 mg BID PO Last administered on 12/17/16 10:12; Admin Dose 50 MG; Start 12/11/16 at 21:00 Miscellaneous Information (* Miscellaneous Pharmacy Order) pharmacy to dose, g... ONCE XX ; Start 12/12/16 at 02:30 Acetaminophen/ Hydrocodone Bitart 2 tab 2 tab Q4H PRN PO pain Last administered on 12/17/16 10:12; Admin Dose 2 TAB; Start 12/13/16 at 10:30 Ertapenem 0.5 gm/ Sodium Chloride 100 ml @ 200 mls/hr Q24H IVPB Last administered on 12/16/16 14:55; Admin Dose 200 MLS/HR; Start 12/14/16 at 14:00 Amiodarone HCl/ Dextrose (Cordarone Iv/ D5W) 500 ml @ 0 mls/hr Q0M IV Last administered on 12/14/16 13:49; Admin Dose 33.4 MLS/HR; Start 12/14/16 at 13:00 Amiodarone HCl 200 mg 200 mg BID PO Last administered on 12/17/16t 10:12; Admin Dose 200 MG; Start 12/15/16 at 06:00 Diltiazem HCl (Cardizem-D5W 125 Mg/125 ml Drip) 125 ml @ 5 mls/hr TITRATE IV ; Start 12/16/16 at 22:45 MADELYN MIRANDA MD December 17, 2016 11:37
--- NOTE | 2016-12-17 12:52 | RADRPT ---
PROCEDURE: XR Chest. CLINICAL INDICATION: To the screening and shortness of breath. TECHNIQUE: Single frontal view of the chest was obtained. COMPARISON: Chest x-ray 12/10/2016. FINDINGS: The soft tissues are normal. There are degenerative osteophytes in the thoracic and lumbar spine. The left ventricle is enlarged. The cardiomediastinal silhouette and hilar structures are normal. T he pulmonary vasculature is equilibrated. There are vascular calcifications in the aortic arch. The re are infiltrates in the right lung associated with a right pleural effusion suspicious for pneumon ia. There is additional density in the medial aspect of the left lower lobe consistent with atelect asis or infiltrate. The left costophrenic angle is partially obscured. IMPRESSION: 1. Cardiomegaly. 2. Interval development of infiltrates in the right lung associated with bilateral pleural effusion s which may be the result of pneumonia. Consolidative infiltrate or atelectasis in the medial aspect of the left lower lobe not identified on 12/10/2016. 3. A central venous catheter enters from a right internal jugular approach with its tip in the righ t atrium. No pneumothorax is identified. 4. Atherosclerosis of the aortic arch. 5. Spondylosis of the thoracic spine. RPTAT:AAJJ Physician Xavier Date Time Electronically viewed and signed by Physician Xavier on 12/17/2016 12:51 WILFRED/
[2016-12-17] MEDS ORDERED: METOPROLOL 25 MG TAB PO ONE (13:00)
[2016-12-17] MEDS ORDERED: AMIODARONE 200 MG TAB PO ONE (13:00)
--- NOTE | 2016-12-17 13:02 | CONS ---
Date/Time of Note Date/Time of Note DATE: 12/17/16 TIME: 12:59 Assessment/Plan Assessment/Plan Additional Assessment/Plan Acute kidney injury Preserved ejection fraction Status post fall Sepsis with bacteremia Paroxysmal atrial fibrillation, currently sinus rhythm History of hypertension Recent UTI Alcohol abuse -Patient with recurrent episodes of paroxysmal atrial fibrillation with rapid ventricular rates. IV Cardizem given and patient converted back to sinus rhythm. Would increase dose of p.o. amiodarone. Increase dose of beta- anjelica. If not sufficient, would consider changing beta-anjelica to Cardizem. Discussion had with patient regarding his alcohol use. He does drink a minimum of 10 beers a day and he does tell me he is unsteady on his feet. Given his significant alcohol use, and his fall risk, I am concerned the risks of anticoagulation outweigh the benefits. Would continue rate and rhythm control at the current time. Keep potassium above 4.0 and magnesium above 2.0. Consultation Date/Type/Reason Admit Date/Time December 10, 2016 at 16:57 Type of Consultation: cv Referring Provider: CLOVIS SHORE 24 HR Interval Summary Free Text/Dictation Patient with recurrent atrial fibrillation last night with rapid ventricular rates. Responded to IV Cardizem. Currently denies any palpitations, chest pain , shortness of breath. Main complaint is back pain. Exam/Review of Systems Vital Signs Vitals Vital Signs Date Time Temp Pulse Resp B/P Pulse Ox O2 Delivery O2 Flow Rate FiO2 12/17/16 12:07 97.6 61 18 139/62 94 12/17/16 08:30 2.0 12/15/16 18:50 Nasal Cannula Intake and Output 12/16/16 12/16/16 12/17/16 15:00 23:00 07:00 Intake Total 500 ml 1011.2 ml 1340 ml Output Total 2500 ml 0 ml Balance -2000 ml 1011.2 ml 1340 ml Exam No apparent distress Constitutional: alert, oriented Head: normocephalic Respiratory: other (Coarse breath sounds bilaterally, decreased at the bases, no wheezing) Cardiovascular: other (S1-S2 heard), regular rate and rhythm Gastrointestinal: bowel sounds, non-tender, soft Extremities: edema Results Result Diagram: 12/17/16 0650 12/17/16 0650 Results 24 hrs Laboratory Tests Test 12/17/16 06:50 12/17/16 12:50 White Blood Count 8.1 # Red Blood Count 2.71 L Hemoglobin 8.4 L Hematocrit 24.8 L Mean Corpuscular Volume 91.5 Mean Corpuscular Hemoglobin 31.0 Mean Corpuscular Hemoglobin Concent 33.9 Red Cell Distribution Width 15.9 H Platelet Count 173 Mean Platelet Volume 11.6 H Neutrophils % 80.9 H Lymphocytes % 7.9 L Monocytes % 8.9 Eosinophils % 1.2 Basophils % 0.1 Nucleated Red Blood Cells % 0.0 Neutrophils # 6.5 Lymphocytes # 0.6 L Monocytes # 0.7 Eosinophils # 0.1 Basophils # 0.0 Nucleated Red Blood Cells # 0.0 Sodium Level 133 L Potassium Level 3.6 Chloride Level 104 Carbon Dioxide Level 23 Anion Gap 10 # Blood Urea Nitrogen 43 #H Creatinine 4.25 H Glucose Level 98 Calcium Level 7.8 L Lab Scanned Report REFERENCE LAB Medications Medications Current Medications Ondansetron HCl (Zofran Inj) 4 mg Q6H PRN IV NAUSEA AND/OR VOMITING Last administered on 12/11/16 06:45; Admin Dose 4 MG; Start 12/10/16 at 18:00 Acetaminophen (Tylenol Tab) 650 mg Q6H PRN PO PAIN LEVEL 1-3 OR FEVER; Start at 18:00 Morphine Sulfate (morphine) 2 mg Q4H PRN IV PAIN LEVEL 7-10 Last administered on 12/15/16 05:31; Admin Dose 2 MG; Start 12/10/16 at 18:00 Magnesium Hydroxide (Milk Of Mag) 30 ml DAILY PRN PO CONSTIPATION; Start at 18:00 Bisacodyl (Dulcolax) 5 mg DAILY PRN PO CONSTIPATION; Start 12/10/16 at 18:00 Famotidine (Pepcid) 20 mg DAILY PO Last administered on 12/17/16 10:13; Admin Dose 20 MG; Start 12/11/16 at 09:00 Hydralazine HCl (Apresoline) 10 mg Q6H PRN IV SBP>160 Last administered on 12/15 17:56; Admin Dose 10 MG; Start 12/10/16 at 18:00 Atorvastatin Calcium 10 mg 10 mg DAILY@21 PO Last administered on 12/16/16 20: 53; Admin Dose 10 MG; Start 12/10/16 at 21:00 Sodium Chloride (NS) 1,000 ml @ 100 mls/hr Q10H IV Last administered on 06:05; Admin Dose 100 MLS/HR; Start 12/10/16 at 18:00 Lorazepam 1 mg 1 mg Q2H PRN IV Anxiety Last administered on 12/15/16 21:20; Admin Dose 1 MG; Start 12/10/16 at 18:30 Multivitamins/ Thiamine HCl/ Folic Acid/Sodium Chloride (Mvi Adult/ Vitamin B1/ Folic Acid/NS) 1,011.2 ml @ 125 mls/ hr DAILY@09 IVPB Last administered on 08:12; Admin Dose 125 MLS/HR; Start 12/11/16 at 09:00 Heparin Sodium (Porcine) (Heparin (5000 Units/0.5 ml)) 5,000 unit BID SC Last administered on 12/17/16 10:20; Admin Dose 5,000 UNIT; Start 12/11/16 at 21:00 Chlordiazepoxide (Librium) 50 mg BID PO Last administered on 12/17/16 10:12; Admin Dose 50 MG; Start 12/11/16 at 21:00 Miscellaneous Information (* Miscellaneous Pharmacy Order) pharmacy to dose, g... ONCE XX ; Start 12/12/16 at 02:30 Acetaminophen/ Hydrocodone Bitart 2 tab 2 tab Q4H PRN PO pain Last administered on 12/17/16 10:12; Admin Dose 2 TAB; Start 12/13/16 at 10:30 Ertapenem 0.5 gm/ Sodium Chloride 100 ml @ 200 mls/hr Q24H IVPB Last administered on 12/16/16 14:55; Admin Dose 200 MLS/HR; Start 12/14/16 at 14:00 Amiodarone HCl 900 mg/Dextrose 500 ml @ 0 mls/hr Q0M IV Last administered on 13:49; Admin Dose 33.4 MLS/HR; Start 12/14/16 at 13:00 Diltiazem HCl (Cardizem-D5W 125 Mg/125 ml Drip) 125 ml @ 5 mls/hr TITRATE IV ; Start 12/16/16 at 22:45 Megestrol Acetate (Megace Susp) 400 mg BID PO ; Start 12/17/16 at 13:00 Amiodarone HCl (Cordarone) 400 mg BID PO ; Start 12/17/16 at 21:00; Status UNV Metoprolol Tartrate (Lopressor) 50 mg BID PO ; Start 12/17/16 at 21:00; Status UNV Metoprolol Tartrate (Lopressor) 25 mg ONCE ONCE PO ; Start 12/17/16 at 13:00; Stop 12/17/16 at 13:01; Status UNV Amiodarone HCl (Cordarone) 200 mg ONCE ONCE PO ; Start 12/17/16 at 13:00; Stop 12/17/16 at 13:01; Status UNV Zeyad Kelly DO December 17, 2016 13:02
--- NOTE | 2016-12-17 14:23 | CONS ---
Date/Time of Note Date/Time of Note DATE: 12/17/16 TIME: 14:22 Assessment/Plan Assessment/Plan Chief Complaint/Hosp Course SUBJECTIVE: No events, looks comfortable. No fevers MICROBIOLOGY: Blood and urine culture growing Proteus mirabilis susceptible to all antibiotics. ANTIMICROBIALS: Invanz Indwelling: RIJ danielle 12/13 DIAGNOSTICS: Ultrasound of the abdomen revealed nonobstructive bilateral renal calculi. Chest x-ray showed no acute cardiopulmonary process. CT of the brain on admission revealed no acute intracranial pathology. Renal ultrasound revealed no evidence of obstructive uropathy. PHYSICAL EXAMINATION: GENERAL: Obese well-developed, middle-aged man who is alert, in no distress. HEENT: Head atraumatic, normocephalic. Sclerae anicteric. Buccal mucosa dry. NECK: Supple, trachea midline. CHEST: Rise symmetrical. Breath sounds clear. HEART: S1, S2. ABDOMEN: Soft, bowel tones present. EXTREMITIES: Without cyanosis. ASSESSMENT: 1. Sepsis with acute encephalopathy on admission, acute renal failure. 2. Proteus mirabilis urinary tract infection with bacteremia. 3. Acute kidney failure, possible chronic kidney disease. 4. History of gout. 5. Hypertension. 6. Atrial fibrillation. 7. History of alcohol abuse. PLAN: Remains stable, repeat bld cx negative, wbc decreasing, continue abx DW staff Problems: Consultation Date/Type/Reason Admit Date/Time December 10, 2016 at 16:57 Type of Consultation: ID Referring Provider: CLOVIS SHORE Exam/Review of Systems Vital Signs Vitals Vital Signs Date Time Temp Pulse Resp B/P Pulse Ox O2 Delivery O2 Flow Rate FiO2 12/17/16 13:16 88 12/17/16 12:07 97.6 18 139/62 94 12/17/16 08:30 2.0 12/15/16 18:50 Nasal Cannula Intake and Output 12/16/16 12/16/16 12/17/16 15:00 23:00 07:00 Intake Total 500 ml 1011.2 ml 1340 ml Output Total 2500 ml 0 ml Balance -2000 ml 1011.2 ml 1340 ml Results Result Diagram: 12/17/16 0650 12/17/16 0650 Results 24 hrs Laboratory Tests Test 12/17/16 06:50 12/17/16 12:50 White Blood Count 8.1 # Red Blood Count 2.71 L Hemoglobin 8.4 L Hematocrit 24.8 L Mean Corpuscular Volume 91.5 Mean Corpuscular Hemoglobin 31.0 Mean Corpuscular Hemoglobin Concent 33.9 Red Cell Distribution Width 15.9 H Platelet Count 173 Mean Platelet Volume 11.6 H Neutrophils % 80.9 H Lymphocytes % 7.9 L Monocytes % 8.9 Eosinophils % 1.2 Basophils % 0.1 Nucleated Red Blood Cells % 0.0 Neutrophils # 6.5 Lymphocytes # 0.6 L Monocytes # 0.7 Eosinophils # 0.1 Basophils # 0.0 Nucleated Red Blood Cells # 0.0 Sodium Level 133 L Potassium Level 3.6 Chloride Level 104 Carbon Dioxide Level 23 Anion Gap 10 # Blood Urea Nitrogen 43 #H Creatinine 4.25 H Glucose Level 98 Calcium Level 7.8 L Lab Scanned Report REFERENCE LAB Medications Medications Current Medications Ondansetron HCl (Zofran Inj) 4 mg Q6H PRN IV NAUSEA AND/OR VOMITING Last administered on 12/11/16 06:45; Admin Dose 4 MG; Start 12/10/16 at 18:00 Acetaminophen (Tylenol Tab) 650 mg Q6H PRN PO PAIN LEVEL 1-3 OR FEVER; Start at 18:00 Morphine Sulfate (morphine) 2 mg Q4H PRN IV PAIN LEVEL 7-10 Last administered on 12/15/16 05:31; Admin Dose 2 MG; Start 12/10/16 at 18:00 Magnesium Hydroxide (Milk Of Mag) 30 ml DAILY PRN PO CONSTIPATION; Start at 18:00 Bisacodyl (Dulcolax) 5 mg DAILY PRN PO CONSTIPATION; Start 12/10/16 at 18:00 Famotidine (Pepcid) 20 mg DAILY PO Last administered on 12/17/16 10:13; Admin Dose 20 MG; Start 12/11/16 at 09:00 Hydralazine HCl (Apresoline) 10 mg Q6H PRN IV SBP>160 Last administered on 12/15 17:56; Admin Dose 10 MG; Start 12/10/16 at 18:00 Atorvastatin Calcium 10 mg 10 mg DAILY@21 PO Last administered on 12/16/16 20: 53; Admin Dose 10 MG; Start 12/10/16 at 21:00 Sodium Chloride (NS) 1,000 ml @ 100 mls/hr Q10H IV Last administered on 06:05; Admin Dose 100 MLS/HR; Start 12/10/16 at 18:00 Lorazepam 1 mg 1 mg Q2H PRN IV Anxiety Last administered on 12/15/16 21:20; Admin Dose 1 MG; Start 12/10/16 at 18:30 Multivitamins/ Thiamine HCl/ Folic Acid/Sodium Chloride (Mvi Adult/ Vitamin B1/ Folic Acid/NS) 1,011.2 ml @ 125 mls/ hr DAILY@09 IVPB Last administered on 08:12; Admin Dose 125 MLS/HR; Start 12/11/16 at 09:00 Heparin Sodium (Porcine) (Heparin (5000 Units/0.5 ml)) 5,000 unit BID SC Last administered on 12/17/16 10:20; Admin Dose 5,000 UNIT; Start 12/11/16 at 21:00 Chlordiazepoxide (Librium) 50 mg BID PO Last administered on 12/17/16 10:12; Admin Dose 50 MG; Start 12/11/16 at 21:00 Miscellaneous Information (* Miscellaneous Pharmacy Order) pharmacy to dose, g... ONCE XX ; Start 12/12/16 at 02:30 Acetaminophen/ Hydrocodone Bitart 2 tab 2 tab Q4H PRN PO pain Last administered on 12/17/16 10:12; Admin Dose 2 TAB; Start 12/13/16 at 10:30 Ertapenem 0.5 gm/ Sodium Chloride 100 ml @ 200 mls/hr Q24H IVPB Last administered on 12/16/16 14:55; Admin Dose 200 MLS/HR; Start 12/14/16 at 14:00 Amiodarone HCl 900 mg/Dextrose 500 ml @ 0 mls/hr Q0M IV Last administered on 13:49; Admin Dose 33.4 MLS/HR; Start 12/14/16 at 13:00 Diltiazem HCl (Cardizem-D5W 125 Mg/125 ml Drip) 125 ml @ 5 mls/hr TITRATE IV ; Start 12/16/16 at 22:45 Megestrol Acetate (Megace Susp) 400 mg BID PO ; Start 12/17/16 at 13:00 Amiodarone HCl (Cordarone) 400 mg BID PO ; Start 12/17/16 at 21:00 Metoprolol Tartrate (Lopressor) 50 mg BID PO ; Start 12/17/16 at 21:00 CHERRIE JAUREGUI NP December 17, 2016 14:23
[2016-12-17] MEDS: MEGESTROL (40 MG/ML) 10ML CUP PO SCH ×2 (15:38→21:30)
[2016-12-17] MEDS: ERTAPENEM SODIUM 0.5 GM in SOD CHLORIDE 0.9% 100 ML IVPB SCH (15:39)
[2016-12-17 17:10] LABS: SCRET 4.25 mg/dl (0.61-1.24)
[2016-12-17] MEDS: ATORVASTATIN 10 MG TAB PO SCH (21:28)
[2016-12-17] MEDS: METOPROLOL 50 MG TAB PO SCH (21:30)
[2016-12-18] VITALS (10 sets, daily range): BP systolic 88–158; BP diastolic 53–76; PULSE 68–83; RESP 17–18
[2016-12-18] MEDS: SOD CHLORIDE 0.9% 1,000 ML IV SCH (06:08)
[2016-12-18 08:04] LABS: ADD SCAN DIFF NO
[2016-12-18 08:09] LABS: BASOPHILS % 0.4 % (0.0-2.0); EOSINOPHILS # 0.2 10^3/ul (0.0-0.5); EOSINOPHILS % 2.4 % (0.0-7.0); HEMATOCRIT 27.1 % (42.0-52.0); HEMOGLOBIN 9.1 g/dl (14.0-18.0); LYMPHOCYTES # 0.8 10^3/ul (0.8-2.9); LYMPHOCYTES % 7.5 % (15.0-51.0); MEAN CORPUSCULAR HEMOGLOBIN 31.1 pg (29.0-33.0); MEAN CORPUSCULAR HGB CONC 33.6 g/dl (32.0-37.0); MEAN CORPUSCULAR VOLUME 92.5 fl (82.0-101.0); MEAN PLATELET VOLUME 11.1 fl (7.4-10.4); MONOCYTE # 0.7 10^3/ul (0.3-0.9); MONOCYTES % 6.7 % (0.0-11.0); NEUTROPHIL # 8.3 10^3/ul (1.6-7.5); NEUTROPHILS % 81.8 % (39.0-77.0); PLATELET COUNT 204 10^3/UL (140-415); RED BLOOD COUNT 2.93 10^6/ul (4.70-6.10); RED CELL DISTRIBUTION WIDTH 15.6 % (11.5-14.5); WHITE BLOOD COUNT 10.1 10^3/ul (4.8-10.8)
[2016-12-18 08:45] LABS: POTASSIUM 3.8 mmol/L (3.5-5.1)
[2016-12-18 08:47] LABS: CREATININE 4.95 mg/dl (0.61-1.24)
[2016-12-18 08:48] LABS: CALCIUM 7.9 mg/dl (8.4-10.2)
[2016-12-18] MEDS: MULTIVITAMINS 10 ML, THIAMINE 100 MG, FOLIC ACID 1 MG in SOD CHLORIDE 0.9% 1,000 ML IVPB SCH (09:27)
[2016-12-18] MEDS: FAMOTIDINE 20 MG TAB PO SCH (09:30)
[2016-12-18] MEDS: MEGESTROL (40 MG/ML) 10ML CUP PO SCH ×2 (09:30→20:44)
[2016-12-18] MEDS: CHLORDIAZEPOXIDE 25 MG CAP PO SCH ×2 (09:30→20:44)
[2016-12-18] MEDS: METOPROLOL 50 MG TAB PO SCH ×2 (09:30→20:44)
[2016-12-18] MEDS: AMIODARONE 200 MG TAB PO SCH ×2 (09:31→20:48)
[2016-12-18] MEDS: HEPARIN 5,000 UNIT/0.5 ML VIAL SC SCH ×2 (09:31→20:49)
[2016-12-18] MEDS: HYDROCODONE/APAP (5/325) TAB PO PRN (09:55)
--- NOTE | 2016-12-18 10:11 | PN ---
Date/Time of Note Date/Time of Note DATE: 12/18/16 TIME: 10:09 Assessment/Plan VTE Prophylaxis VTE Prophylaxis Intervention: heparin Lines/Catheters IV Catheter Type (from Nrs): Peripheral IV Urinary Cath still in place: Yes Reason Cath still needed: other (indicate) (monitor I&O) Assessment/Plan Chief Complaint/Hosp Course Acute assessment and plan 1. Acute renal insufficiency. . Continue on dialysis per nephrology recommendation. Monitor renal panel. Permacath per nephrology recommendations 2. Status post fall. Brain CT was negative for any acute intrarenal findings. PT following. Analgesics as needed 3. Essential hypertension. Continue antihypertensives and adjust as needed. Stable 4. Reported history of gout. No active issue at this time we will monitor for now. 5. Sepsis with underlying urinary tract infection/bacteremia with Proteus mirabilis. Continue antibiotics per ID recommendations, repeat blood cx negative. Appears to be improved 6. Dyslipidemia. Continue statin medication. Stable 7. A. fib with RVR. cont amiodarone and telemetry monitoring. Rate controlled at this time 8. Alcohol abuse. Alcohol cessation was advised. 9. Normocytic anemia. Likely secondary to alcohol abuse. S&S of bleeding. Monitor for now. DVT prophylaxis: Heparin Disposition plan: Continue on dialysis. Permacath per nephrology recommendations. Slightly confused. Continue reorienting. Discharge when medically stable and cleared by consultants Discussed plan of care with Dr. Barnett Problems: Subjective 24 Hr Interval Summary Free Text/Dictation Little confused at times. Needs reorienting. RN at bedside. Exam/Review of Systems Vital Signs Vitals Vital Signs Date Time Temp Pulse Resp B/P Pulse Ox O2 Delivery O2 Flow Rate FiO2 12/18/16 08:12 98.1 74 18 155/70 94 12/17/16 20:00 Nasal Cannula 2.0 Intake and Output 12/17/16 12/17/16 12/18/16 15:00 23:00 07:00 Intake Total 2911.2 ml 1200 ml Output Total 1200 ml 600 ml Balance 1711.2 ml 600 ml Exam Constitutional: other (Confused at times) Psych: nl mood/affect Head: normocephalic Eyes: nl conjunctiva Neck: No jvd Respiratory: diminished breath sounds Cardiovascular: irregular rhythm Gastrointestinal: non-tender, soft Musculoskeletal: nl extremities to inspection Neurological: confused, nl speech Skin: nl turgor Results Result Diagram: 12/18/16 0622 12/18/16 0622 Results 24 hrs Laboratory Tests Test 12/17/16 12:50 12/17/16 16:00 12/18/16 06:22 Lab Scanned Report REFERENCE LAB Urine Random Creatinine 74.86 Urine Collection Duration 24 Urine Total Volume 24 Hours 1250 Urine Creatinine Timed 24 Creatinine Clearance 15.3 L Urine Total Volume (Protein) 1250 Urine Total Protein 24 Hour White Blood Count 10.1 # Red Blood Count 2.93 L Hemoglobin 9.1 L Hematocrit 27.1 L Mean Corpuscular Volume 92.5 Mean Corpuscular Hemoglobin 31.1 Mean Corpuscular Hemoglobin Concent 33.6 Red Cell Distribution Width 15.6 H Platelet Count 204 Mean Platelet Volume 11.1 H Neutrophils % 81.8 H Lymphocytes % 7.5 L Monocytes % 6.7 Eosinophils % 2.4 Basophils % 0.4 Nucleated Red Blood Cells % 0.0 Neutrophils # 8.3 H Lymphocytes # 0.8 Monocytes # 0.7 Eosinophils # 0.2 Basophils # 0.0 Nucleated Red Blood Cells # 0.0 Sodium Level 136 Potassium Level 3.8 Chloride Level 104 Carbon Dioxide Level 20 L Anion Gap 16 Blood Urea Nitrogen 51 H Creatinine 4.95 H Glucose Level 85 Calcium Level 7.9 L Medications Medications Current Medications Ondansetron HCl (Zofran Inj) 4 mg Q6H PRN IV NAUSEA AND/OR VOMITING Last administered on 12/11/16 06:45; Admin Dose 4 MG; Start 12/10/16 at 18:00 Acetaminophen (Tylenol Tab) 650 mg Q6H PRN PO PAIN LEVEL 1-3 OR FEVER; Start at 18:00 Morphine Sulfate (morphine) 2 mg Q4H PRN IV PAIN LEVEL 7-10 Last administered on 12/15/16 05:31; Admin Dose 2 MG; Start 12/10/16 at 18:00 Magnesium Hydroxide (Milk Of Mag) 30 ml DAILY PRN PO CONSTIPATION; Start at 18:00 Bisacodyl (Dulcolax) 5 mg DAILY PRN PO CONSTIPATION; Start 12/10/16 at 18:00 Famotidine (Pepcid) 20 mg DAILY PO Last administered on 12/18/16 09:30; Admin Dose 20 MG; Start 12/11/16 at 09:00 Hydralazine HCl (Apresoline) 10 mg Q6H PRN IV SBP>160 Last administered on 12/15 17:56; Admin Dose 10 MG; Start 12/10/16 at 18:00 Atorvastatin Calcium 10 mg 10 mg DAILY@21 PO Last administered on 12/17/16 21: 28; Admin Dose 10 MG; Start 12/10/16 at 21:00 Sodium Chloride (NS) 1,000 ml @ 100 mls/hr Q10H IV Last administered on 06:08; Admin Dose 100 MLS/HR; Start 12/10/16 at 18:00 Lorazepam 1 mg 1 mg Q2H PRN IV Anxiety Last administered on 12/15/16 21:20; Admin Dose 1 MG; Start 12/10/16 at 18:30 Multivitamins/ Thiamine HCl/ Folic Acid/Sodium Chloride (Mvi Adult/ Vitamin B1/ Folic Acid/NS) 1,011.2 ml @ 125 mls/ hr DAILY@09 IVPB Last administered on 09:27; Admin Dose 125 MLS/HR; Start 12/11/16 at 09:00 Heparin Sodium (Porcine) (Heparin (5000 Units/0.5 ml)) 5,000 unit BID SC Last administered on 12/18/16 09:31; Admin Dose 5,000 UNIT; Start 12/11/16 at 21:00 Chlordiazepoxide (Librium) 50 mg BID PO Last administered on 12/18/16 09:30; Admin Dose 50 MG; Start 12/11/16 at 21:00 Miscellaneous Information (* Miscellaneous Pharmacy Order) pharmacy to dose, g... ONCE XX ; Start 12/12/16 at 02:30 Acetaminophen/ Hydrocodone Bitart 2 tab 2 tab Q4H PRN PO pain Last administered on 12/18/16 09:55; Admin Dose 2 TAB; Start 12/13/16 at 10:30 Ertapenem 0.5 gm/ Sodium Chloride 100 ml @ 200 mls/hr Q24H IVPB Last administered on 12/17/16 15:39; Admin Dose 200 MLS/HR; Start 12/14/16 at 14:00 Amiodarone HCl 900 mg/Dextrose 500 ml @ 0 mls/hr Q0M IV Last administered on 13:49; Admin Dose 33.4 MLS/HR; Start 12/14/16 at 13:00 Diltiazem HCl (Cardizem-D5W 125 Mg/125 ml Drip) 125 ml @ 5 mls/hr TITRATE IV ; Start 12/16/16 at 22:45 Megestrol Acetate (Megace Susp) 400 mg BID PO Last administered on 12/18/16 09 :30; Admin Dose 400 MG; Start 12/17/16 at 13:00 Amiodarone HCl (Cordarone) 400 mg BID PO Last administered on 12/18/16 09:31; Admin Dose 400 MG; Start 12/17/16 at 21:00 Metoprolol Tartrate (Lopressor) 50 mg BID PO Last administered on 12/18/16 09: 30; Admin Dose 50 MG; Start 12/17/16 at 21:00 SANJAY ANDREA December 18, 2016 10:11
--- NOTE | 2016-12-18 11:02 | PN ---
Date/Time of Note Date/Time of Note DATE: 12/18/16 TIME: 11:00 Assessment/Plan VTE Prophylaxis VTE Prophylaxis Intervention: SCD's Lines/Catheters IV Catheter Type (from [facility]): Peripheral IV Urinary Cath still in place: Yes Reason Cath still needed: urinary retention Assessment/Plan Assessment/Plan Acute kidney injury Preserved ejection fraction Status post fall Sepsis with bacteremia Paroxysmal atrial fibrillation, currently sinus rhythm History of hypertension Recent UTI Alcohol abuse -Patient with recurrent episodes of paroxysmal atrial fibrillation with rapid ventricular rates but has been now in NSR. Conintue amiodarone and beta- anjelica. If not sufficient, would consider changing beta-anjelica to Cardizem. He does drink a minimum of 10 beers a day and he does tell me he is unsteady on his feet. Given his significant alcohol use, and his fall risk, I am concerned the risks of anticoagulation outweigh the benefits. Would continue rate and rhythm control at the current time. Keep potassium above 4.0 and magnesium above 2.0. Subjective 24 Hr Interval Summary Free Text/Dictation The patient with no change Exam/Review of Systems Vital Signs Vitals Vital Signs Date Time Temp Pulse Resp B/P Pulse Ox O2 Delivery O2 Flow Rate FiO2 12/18/16 08:12 98.1 74 18 155/70 94 12/17/16 20:00 Nasal Cannula 2.0 Intake and Output 12/17/16 12/17/16 12/18/16 15:00 23:00 07:00 Intake Total 2911.2 ml 1200 ml Output Total 1200 ml 600 ml Balance 1711.2 ml 600 ml Results Result Diagram: 12/18/1622 12/18/16 0622 Results 24 hrs Laboratory Tests Test 12/17/16 12:50 12/17/16 16:00 12/18/16 06:22 Lab Scanned Report REFERENCE LAB Urine Random Creatinine 74.86 Urine Collection Duration 24 Urine Total Volume 24 Hours 1250 Urine Creatinine Timed 24 Creatinine Clearance 15.3 L Urine Total Volume (Protein) 1250 Urine Total Protein 24 Hour White Blood Count 10.1 # Red Blood Count 2.93 L Hemoglobin 9.1 L Hematocrit 27.1 L Mean Corpuscular Volume 92.5 Mean Corpuscular Hemoglobin 31.1 Mean Corpuscular Hemoglobin Concent 33.6 Red Cell Distribution Width 15.6 H Platelet Count 204 Mean Platelet Volume 11.1 H Neutrophils % 81.8 H Lymphocytes % 7.5 L Monocytes % 6.7 Eosinophils % 2.4 Basophils % 0.4 Nucleated Red Blood Cells % 0.0 Neutrophils # 8.3 H Lymphocytes # 0.8 Monocytes # 0.7 Eosinophils # 0.2 Basophils # 0.0 Nucleated Red Blood Cells # 0.0 Sodium Level 136 Potassium Level 3.8 Chloride Level 104 Carbon Dioxide Level 20 L Anion Gap 16 Blood Urea Nitrogen 51 H Creatinine 4.95 H Glucose Level 85 Calcium Level 7.9 L Medications Medications Current Medications Ondansetron HCl (Zofran Inj) 4 mg Q6H PRN IV NAUSEA AND/OR VOMITING Last administered on 12/11/16 06:45; Admin Dose 4 MG; Start 12/10/16 at 18:00 Acetaminophen (Tylenol Tab) 650 mg Q6H PRN PO PAIN LEVEL 1-3 OR FEVER; Start at 18:00 Morphine Sulfate (morphine) 2 mg Q4H PRN IV PAIN LEVEL 7-10 Last administered on 12/15/16 05:31; Admin Dose 2 MG; Start 12/10/16 at 18:00 Magnesium Hydroxide (Milk Of Mag) 30 ml DAILY PRN PO CONSTIPATION; Start at 18:00 Bisacodyl (Dulcolax) 5 mg DAILY PRN PO CONSTIPATION; Start 12/10/16 at 18:00 Famotidine (Pepcid) 20 mg DAILY PO Last administered on 12/18/16 09:30; Admin Dose 20 MG; Start 12/11/16 at 09:00 Hydralazine HCl (Apresoline) 10 mg Q6H PRN IV SBP>160 Last administered on 12/15 17:56; Admin Dose 10 MG; Start 12/10/16 at 18:00 Atorvastatin Calcium 10 mg 10 mg DAILY@21 PO Last administered on 12/17/16 21: 28; Admin Dose 10 MG; Start 12/10/16 at 21:00 Sodium Chloride (NS) 1,000 ml @ 100 mls/hr Q10H IV Last administered on 06:08; Admin Dose 100 MLS/HR; Start 12/10/16 at 18:00 Lorazepam 1 mg 1 mg Q2H PRN IV Anxiety Last administered on 12/15/16 21:20; Admin Dose 1 MG; Start 12/10/16 at 18:30 Multivitamins/ Thiamine HCl/ Folic Acid/Sodium Chloride (Mvi Adult/ Vitamin B1/ Folic Acid/NS) 1,011.2 ml @ 125 mls/ hr DAILY@09 IVPB Last administered on 09:27; Admin Dose 125 MLS/HR; Start 12/11/16 at 09:00 Heparin Sodium (Porcine) (Heparin (5000 Units/0.5 ml)) 5,000 unit BID SC Last administered on 12/18/16 09:31; Admin Dose 5,000 UNIT; Start 12/11/16 at 21:00 Chlordiazepoxide (Librium) 50 mg BID PO Last administered on 12/18/16 09:30; Admin Dose 50 MG; Start 12/11/16 at 21:00 Miscellaneous Information (* Miscellaneous Pharmacy Order) pharmacy to dose, g... ONCE XX ; Start 12/12/16 at 02:30 Acetaminophen/ Hydrocodone Bitart 2 tab 2 tab Q4H PRN PO pain Last administered on 12/18/16 09:55; Admin Dose 2 TAB; Start 12/13/16 at 10:30 Ertapenem 0.5 gm/ Sodium Chloride 100 ml @ 200 mls/hr Q24H IVPB Last administered on 12/17/16 15:39; Admin Dose 200 MLS/HR; Start 12/14/16 at 14:00 Amiodarone HCl 900 mg/Dextrose 500 ml @ 0 mls/hr Q0M IV Last administered on 13:49; Admin Dose 33.4 MLS/HR; Start 12/14/16 at 13:00 Diltiazem HCl (Cardizem-D5W 125 Mg/125 ml Drip) 125 ml @ 5 mls/hr TITRATE IV ; Start 12/16/16 at 22:45 Megestrol Acetate (Megace Susp) 400 mg BID PO Last administered on 12/18/16 09 :30; Admin Dose 400 MG; Start 12/17/16 at 13:00 Amiodarone HCl (Cordarone) 400 mg BID PO Last administered on 12/18/16 09:31; Admin Dose 400 MG; Start 12/17/16 at 21:00 Metoprolol Tartrate (Lopressor) 50 mg BID PO Last administered on 12/18/16 09: 30; Admin Dose 50 MG; Start 12/17/16 at 21:00 RUPERT PEARSON MD December 18, 2016 11:02
--- NOTE | 2016-12-18 11:16 | CONS ---
Date/Time of Note Date/Time of Note DATE: 12/18/16 TIME: 11:11 Assessment/Plan Assessment/Plan Additional Assessment/Plan 1. Acute kidney injury, multifactorial, not improving despite being on IVF hydration, BUN/Cr persistently high ,.started on HD during this admission 2. Hyponatremia 3. Status post fall, which was a mechanical fall, but likely due to the hyponatremia. CT brain is negative. 4. Possible history of chronic kidney disease secondary to hypertensive nephrosclerosis. 5. History of hypertension. 6. History of gout. 7. History of hyperlipidemia. 8. Atrial fibrillation, rate controlled. 9. History of alcohol abuse. 10. Thrombocytopenia secondary to alcohol abuse. 11. sepsis due to UTI and bacteremia with Blood cx and urine Cx growing proteus PLAN: ,sarted on HD through right iJ danielle HD catheter , 24 hr urine collection showed 1.8 L urine output, pt BUN/Cr still persistently high, no plan for HD today and will reassess tomorrow Blood cx and Urine cx grew proteus - on IV abx - Follow up blood cx on 12/16/16 negative to date check ammonia level megace for apetite, remeron 15 mg pO QHS d/c banana bag, d/c NS, start D51/2 NS at 50cc/hr will follow up Consultation Date/Type/Reason Admit Date/Time December 10, 2016 at 16:57 Type of Consultation: NEPHROLOGY Referring Provider: CLOVIS SHORE 24 HR Interval Summary Free Text/Dictation made 1.8 L urine output, BP stable, BUN/cr still high, Exam/Review of Systems Vital Signs Vitals Vital Signs Date Time Temp Pulse Resp B/P Pulse Ox O2 Delivery O2 Flow Rate FiO2 12/18/16 08:12 98.1 74 18 155/70 94 12/17/16 20:00 Nasal Cannula 2.0 Intake and Output 12/17/16 12/17/16 12/18/16 15:00 23:00 07:00 Intake Total 2911.2 ml 1200 ml Output Total 1200 ml 600 ml Balance 1711.2 ml 600 ml Exam Constitutional: alert Eyes: nl conjunctiva ENMT: nl external ears & nose Neck: supple Respiratory: clear to auscultation Cardiovascular: regular rate and rhythm Gastrointestinal: soft Results Result Diagram: 5/13/17 0622 5/13/17 0622 Results 24 hrs Laboratory Tests Test 12/17/16 12:50 12/17/16 16:00 12/18/16 06:22 Lab Scanned Report REFERENCE LAB Urine Random Creatinine 74.86 Urine Collection Duration 24 Urine Total Volume 24 Hours 1250 Urine Creatinine Timed 24 Creatinine Clearance 15.3 L Urine Total Volume (Protein) 1250 Urine Total Protein 24 Hour White Blood Count 10.1 # Red Blood Count 2.93 L Hemoglobin 9.1 L Hematocrit 27.1 L Mean Corpuscular Volume 92.5 Mean Corpuscular Hemoglobin 31.1 Mean Corpuscular Hemoglobin Concent 33.6 Red Cell Distribution Width 15.6 H Platelet Count 204 Mean Platelet Volume 11.1 H Neutrophils % 81.8 H Lymphocytes % 7.5 L Monocytes % 6.7 Eosinophils % 2.4 Basophils % 0.4 Nucleated Red Blood Cells % 0.0 Neutrophils # 8.3 H Lymphocytes # 0.8 Monocytes # 0.7 Eosinophils # 0.2 Basophils # 0.0 Nucleated Red Blood Cells # 0.0 Sodium Level 136 Potassium Level 3.8 Chloride Level 104 Carbon Dioxide Level 20 L Anion Gap 16 Blood Urea Nitrogen 51 H Creatinine 4.95 H Glucose Level 85 Calcium Level 7.9 L Medications Medications Current Medications Ondansetron HCl (Zofran Inj) 4 mg Q6H PRN IV NAUSEA AND/OR VOMITING Last administered on 12/11/16 06:45; Admin Dose 4 MG; Start 12/10/16 at 18:00 Acetaminophen (Tylenol Tab) 650 mg Q6H PRN PO PAIN LEVEL 1-3 OR FEVER; Start at 18:00 Morphine Sulfate (morphine) 2 mg Q4H PRN IV PAIN LEVEL 7-10 Last administered on 12/15/16 05:31; Admin Dose 2 MG; Start 12/10/16 at 18:00 Magnesium Hydroxide (Milk Of Mag) 30 ml DAILY PRN PO CONSTIPATION; Start at 18:00 Bisacodyl (Dulcolax) 5 mg DAILY PRN PO CONSTIPATION; Start 12/10/16 at 18:00 Famotidine (Pepcid) 20 mg DAILY PO Last administered on 12/18/16 09:30; Admin Dose 20 MG; Start 12/11/16 at 09:00 Hydralazine HCl (Apresoline) 10 mg Q6H PRN IV SBP>160 Last administered on 12/15 17:56; Admin Dose 10 MG; Start 12/10/16 at 18:00 Atorvastatin Calcium (Lipitor) 10 mg DAILY@21 PO Last administered on 21:28; Admin Dose 10 MG; Start 12/10/16 at 21:00 Lorazepam (Ativan) 1 mg Q2H PRN IV Anxiety Last administered on 12/15/16 21:20 ; Admin Dose 1 MG; Start 12/10/16 at 18:30 Heparin Sodium (Porcine) (Heparin (5000 Units/0.5 ml)) 5,000 unit BID SC Last administered on 12/18/16 09:31; Admin Dose 5,000 UNIT; Start 12/11/16 at 21:00 Chlordiazepoxide (Librium) 50 mg BID PO Last administered on 12/18/16 09:30; Admin Dose 50 MG; Start 12/11/16 at 21:00 Miscellaneous Information (* Miscellaneous Pharmacy Order) pharmacy to dose, g... ONCE XX ; Start 12/12/16 at 02:30 Acetaminophen/ Hydrocodone Bitart 2 tab 2 tab Q4H PRN PO pain Last administered on 12/18/16 09:55; Admin Dose 2 TAB; Start 12/13/16 at 10:30 Ertapenem 0.5 gm/ Sodium Chloride 100 ml @ 200 mls/hr Q24H IVPB Last administered on 12/17/16 15:39; Admin Dose 200 MLS/HR; Start 12/14/16 at 14:00 Amiodarone HCl 900 mg/Dextrose 500 ml @ 0 mls/hr Q0M IV Last administered on 13:49; Admin Dose 33.4 MLS/HR; Start 12/14/16 at 13:00 Diltiazem HCl (Cardizem-D5W 125 Mg/125 ml Drip) 125 ml @ 5 mls/hr TITRATE IV ; Start 12/16/16 at 22:45 Megestrol Acetate (Megace Susp) 400 mg BID PO Last administered on 12/18/16 09 :30; Admin Dose 400 MG; Start 12/17/16 at 13:00 Amiodarone HCl (Cordarone) 400 mg BID PO Last administered on 12/18/16 09:31; Admin Dose 400 MG; Start 12/17/16 at 21:00 Metoprolol Tartrate 50 mg 50 mg BID PO Last administered on 12/18/16 09:30; Admin Dose 50 MG; Start 12/17/16 at 21:00 Dextrose/Sodium Chloride (D5-1/2ns) 1,000 ml @ 50 mls/hr Q20H IV ; Start at 11:30 MADELYN MIRANDA MD December 18, 2016 11:16
[2016-12-18] MEDS: DEXTROSE 5%-0.45% NACL 1,000 ML IV SCH (11:53)
--- NOTE | 2016-12-18 13:15 | RADRPT ---
PROCEDURE: CT thoracic spine CLINICAL INDICATION: Intractable back pain, recent fall. TECHNIQUE: A CT of the thoracic spine was performed on a GE [address] scanner utilizing high-res olution axial imaging from the cervical thoracic junction through the thoracolumbar junction. Sagit terese, coronal, and multiplanar reformatted images were made. One or more the following does reduction techniques were utilized: Automated exposure control, adjustment of the mA/ or kV according to pat ient's size, or use of iterative reconstruction technique. The CTDIvol is 36.4 mGy and the DLP is 1 487.2 mGycm. COMPARISON: None. FINDINGS: There is an increase in kyphosis of the thoracic spine related in part to multilevel anterior disk s pace narrowing. There is evidence of diffuse bridging osteophytes with the suggestion of some synde smophytes as well along the lateral and anterior margins of the mid thoracic vertebra, contiguous fr om T6 down to T11. The imaging findings are suggestive of a seronegative spondyloarthropathy. No v ertebral body subluxation is seen. There is evidence of irregularity and a deformity of the inferior endplate of T11 with a subtle vert ical lucency seen along the right anterolateral vertebral body, thought to be related to subchondral cyst formation and degenerative changes. Vacuum disk phenomena is present and prominent anterior s pondylosis is noted at this level. Additionally, there is evidence of mild increased soft tissue st randing and increased soft tissue density in the prevertebral and paravertebral region at T11-12. T he possibility of acute or recent injury to the T11 vertebral body is certainly raised. Infection c annot be entirely excluded, and follow-up with a pre and postcontrast enhanced MRI is recommended. Multilevel disk space narrowing is evident. Moderate to severe at T3-4. Intradiskal mineralization with focal areas of interbody fusion are seen from T6-7 through T10-11. Prominent anterior spondyl osis is noted at T5-6. There is solid fusion of the osteophyte along the right lateral disk space a t T4-5. No fusion is seen at T5-6. The central canal does appear adequately patent at all levels. No significant foraminal narrowing is seen. There is a large right and moderate left pleural effus ion. Associated atelectasis is seen at the lung bases. IMPRESSION: 1. At T11-12, there is irregularity of the end plate with a slight vertical defect seen in the righ t anterior aspect of T11. Vacuum disk phenomena is seen, and there is evidence of increased paraver tebral and prevertebral soft tissue. These findings could be related to sequelae from recent trauma or perhaps infection. Correlation with a MRI of the thoracic spine with without contrast is recomm ended for further evaluation. 2. There is evidence of diffuse bony ankylosis with large prominent bridging osteophytes as well as multilevel bridging syndesmophytes an interbody fusion. The findings may reflect an underlying ser onegative spondyloarthropathy. 3. Multilevel scattered discogenic disease, most severe at T3-4. There is no central stenosis or s ignificant foraminal narrowing. 4. Prominent bilateral pleural effusions, larger on the right than left. Comment: A call report was made to the patient's RN, Chapin, at 01:07 p.m. on 12/18/[address] Gomes. RPTAT: AA .Deanna Gomes MD, Date Time Electronically viewed and signed by .Deanna Gomes MD, on 12/18/2016 13:15 .H/
--- NOTE | 2016-12-18 13:27 | RADRPT ---
PROCEDURE: CT L-Spine. CLINICAL INDICATION: Intractable back pain, recent fall. TECHNIQUE: A CT of the lumbar spine was performed on a GE 64-slice CT scanner utilizing high-resol ution thin section axial images from the thoracic lumbar junction through the lumbar sacral junction . One or more the following does reduction techniques were utilized: Automated exposure control, a djustment of the mA/ or kV according to patient's size, or use of iterative reconstruction technique . Sagittal and coronal and multiplanar reformatted images were made. The CTDIvol is 38.6 mGy and th e DLP is 1141.9 mGycm. COMPARISON: Lumbar x-ray 12/13/2016. FINDINGS: There is a normal lordosis of the lumbar spine. Vertebral body alignment is grossly normal, though there is mild retropulsion of L1 into the central canal. Chronic compression of this vertebral body is noted, and is undergone a prior vertebral body augmentation with bone cement identified in the v ertebra and minimally in the T12-L1 disk space. No epidural cement is seen. Moderately severe comp ression of L1 is noted. Irregularity of the endplates of multiple lumbar vertebra are seen, though no suspicious acute lumbar fractures are seen. Please refer to the separately dictated CT of the th oracic spine for further findings. T12-L1: There is at least mild disk space narrowing. Vacuum disk phenomena is seen, there is a smal l amount of bone cement from the vertebral body augmentation of L1. The central canal and foramina appear adequately patent at this level. L1-2: The disk is normal in height. There is mild retropulsion of the inferior endplate of L1 into the central canal, which results in minimal narrowing of the central canal with the AP diameter scarlett uring just over 11 mm. Prominent left lateral spondylosis is evident. There is mild to moderate bi lateral foraminal narrowing, left greater than right. L2-3: Moderate disk space narrowing is evident. Marked irregularity of the endplates is seen with s mall Schmorl's nodes evident. There is an osteophyte/disk complex, which together with ligamentum f lavum hypertrophy results in severe acquired central canal stenosis with the AP diameter of the manolo l measuring approximately 5.5 mm. Moderat bilateral foraminal narrowing is noted. L3-4: There is moderate disk space narrowing. A broad based osteophyte/disk complex together with m oderately severe facet arthropathy and ligamentum flavum hypertrophy results in severe acquired cent ral canal stenosis with the AP diameter measuring just over 3 mm. There is moderate bilateral misael inal narrowing. L4-5: Moderately severe discogenic disease is evident and most pronounced along the right lateral di sk space. Endplate irregularity and sclerosis is seen. A broad based osteophyte/disk complex toget her with facet arthropathy and ligamentum flavum hypertrophy results in moderate - severe acquired c entral canal stenosis with the mid transverse diameter of the canal measuring just under 6 mm and AP diameter just under 9 mm. There is moderately severe right and mild to moderate left foraminal dona rowing. L5-S1: Severe disk space narrowing is evident with evidence of interbody fusion. An osteophyte/disk complex together with ligamentum flavum hypertrophy results in mild central stenosis with the AP di ameter measuring 10 mm. There is moderate bilateral foraminal narrowing. Note is made of staghorn type renal calculi within the lower pole calyces of both kidneys. There is moderate dilatation of the right ureter, which is incompletely visualized. There does appear to be a small amount of free fluid. There is scatter artifact from a right hip arthroplasty. IMPRESSION: 1. There is evidence of prior vertebral body augmentation of L1 with evidence of a moderately sever e chronic compression fracture. There is minimal retropulsion of the inferior endplate of L1 contri buting to minimal central canal stenosis. No acute lumbar vertebral body fractures seen. Please re minna to the separately dictated CT of the thoracic spine for further findings. 2. There is severe acquired central canal stenosis at L2-3 and L3-4. 3. There is moderate - severe acquired central canal stenosis at L4-5 and mild central stenosis at L5-S1. 4. The are staghorn type renal calculi within the lower pole calyces of both kidneys. Moderate dil atation of the right ureter is identified but incompletely evaluated. A small amount of free fluid i s seen in the pelvis. Further evaluation with a CT renal stone survey may be useful. RPTAT: AA .Deanna Gomes MD, MD Date Time Electronically viewed and signed by .Deanna Gomes MD, on 12/18/2016 13:27 .H/
--- NOTE | 2016-12-18 16:14 | RADRPT ---
PROCEDURE: MR Lumbar Spine without contrast. CLINICAL INDICATION: Intractable back pain TECHNIQUE: An MRI of the lumbar spine was performed utilizing the following sequences: Sagittal T1 -weighted, sagittal T2-weighted, sagittal T2-weighted fat suppressed series. The patient was unable to cooperate and complete the examination, no axial images are submitted. COMPARISON: CT lumbar spine 12/18/2016 FINDINGS: Examination is limited by motion artifact Vertebral bodies: Low signal intensity within the biconcave L1 level consistent with intervertebral when the patient changes. There is no significant bone retropulsion at this level. No bone marrow edema is visualized within any of the other levels to suggest acute fracture. The lordosis is prese rved. Severe anterior spondylosis with syndesmophytes are seen from T12-S1. Conus medularis region: Normal in signal intensity and location terminating at the L1 level. The ca uda equina is grossly normal. T12-L1: Preservation of disk signal intensity with slight widening of the disk space because of the chronic L1 compression fracture. There is no evidence of disk protrusion. There is no facet arthrop athy. The central canal is patent. There is no evidence for foraminal stenosis. L1-L2: Widening of the disk space due to the L1 compression deformity with suggestion of mild annula r disk bulging. There is no facet arthropathy. The ligamentum flava are normal in thickness. The ce ntral canal is patent. There is no evidence for foraminal stenosis. L2-L3: Mild diffuse loss of disk stature and suggestion of a 4 mm broad-based posterior disk protrus ion. There is no facet arthropathy. Ligamentum flavum hypertrophy is suggested as is prominent epidu ral fat deposition with overall moderate to severe central canal compromise, the AP dimension of the thecal sac estimated at 6 mm on the available images. Bulging disk material contributes to mild bi lateral foraminal stenosis. L3-L4: Mild diffuse loss of disk stature with annular disk bulging of approximately 3 mm. Moderate t o severe bilateral facet arthropathy with facet joint fluid. The ligamentum flava are normal in [place]. Severe acquired central canal stenosis is present the AP dimension of the thecal sac approxi mately 4 mm. Disk and osteophyte complex contribute to moderate to severe bilateral foraminal steno sis. L4-L5: Moderate to severe loss of disk stature with circumferential osteophyte and disk complex exte nding into the foramina. Severe bilateral facet arthropathy is suggested. Ligamentum flavum hypertro phy is noted. Severe acquired central stenosis is present the AP dimension of the thecal sac approx imately 3 mm. Osteophyte and disk complex contribute to significant bilateral foraminal stenosis sl ightly worse on the right. L5-S1: There is signal loss with severe loss of disk stature and a small osteophyte and disk complex . Moderate bilateral facet arthropathy is suggested. The ligamentum flava are normal in thickness. Mild central canal stenosis is identified. Osteophyte and disk material contributes to mild bilater al foraminal narrowing. Sacrum and sacroiliac joints: Grossly normal. None spine related findings: No abnormalities are demonstrated. RPTAT:HJJR IMPRESSION: 1. Limited examination, the patient unable to tolerate the axial images. 2. No evidence of acute compression deformity, chronic a biconcave compression fracture of L1 with associated vertebral augmentation changes are again noted. 3. Diffuse disk disease, facet arthropathy and ligamentum flavum hypertrophy contribute to severe c entral canal stenosis most pronounced at L4-5 with osteophyte and disk complex contributing to misael inal stenosis bilaterally greater on the right. 4. Severe acquired central canal stenosis to a slightly lesser extent at L3-4 caused by disk diseas e, facet arthropathy and ligamentum flavum hypertrophy. 5. Moderate to severe central stenosis at L2-3 caused by disk disease, facet arthropathy, ligamentu m flavum hypertrophy and epidural fat deposition. 6. Significant degenerative disk narrowing at L5-S1 without more than mild central canal stenosis. Physician Estrella Date Time Electronically viewed and signed by Physician Estrella on 12/18/2016 16:14 JR/
--- NOTE | 2016-12-18 16:25 | RADRPT ---
PROCEDURE: MR thoracic spine without contrast CLINICAL INDICATION: Intractable back pain TECHNIQUE: An MRI of the thoracic spine was performed utilizing sagittal T2 sequences without and with fat saturation. Coronal T2 series is also obtained. The examination is limited as the patient was unable to cooperate and tolerate the examination COMPARISON: CT 12/18/2016 FINDINGS: Vertebral bodies: Motion artifact limits the examination hyperintense signal along the inferior 3 l evel with concave appearance, findings possibly bone marrow edema. There is some subtle hyperintens e T2 signal in the inferior T11 level corresponding to the irregularity on the CT. Multilevel anter ior bridging osteophytes are again noted. The kyphosis is intact as is alignment. Thoracic spinal cord: Normal in signal intensity and caliber at every level. T1-2: There is preservation of disk signal intensity and stature with no central canal or foraminal stenosis. The facet joints are normal. T2-3: No discogenic abnormality of significance is seen and there is no central canal or foraminal s tenosis. The facet joints are intact. T3-4: Preservation of disk signal intensity and stature with endplate signal changes and annular dis k bulging contributing to at most mild central stenosis. No obvious foraminal stenosis is noted T4-5: Disk signal loss without loss of stature protrusion or central stenosis. There is no obvious foraminal narrowing T5-6: Disk signal loss without loss of stature protrusion or central stenosis. There is no obvious foraminal narrowing T6-7: Disk signal loss without loss of stature protrusion or central stenosis. There is no obvious foraminal narrowing T7-8: Disk signal loss without loss of stature protrusion or central stenosis. There is no obvious foraminal narrowing T8-9: Disk signal loss without loss of stature protrusion or central stenosis. There is no obvious foraminal narrowing T9-10: Preservation of disk signal with minimal loss of disk stature but no evidence of protrusion or significant stenosis T10-11: Mild loss of disk stature and endplate irregularity without disk signal loss, protrusion or central stenosis. No obvious foraminal narrowing T11-12: Disk signal intensity is preserved with an end plate irregularity. There is posterior disk bulging estimated at 5 mm. In addition, there is facet arthropathy greater on the right with a porfirio pected tiny synovial cyst arising from the left facet the finding approximately 3 mm seen on sagitta l image 5. There is also ligamentum flavum hypertrophy and overall mild central stenosis at this le corinne is suggested the AP dimension of the canal estimated at 8 mm T12-L1: No discogenic abnormality of significance is seen and there is no facet arthropathy, centra l canal or foraminal stenosis Non spine related findings: No abnormalities of significance are demonstrated. RPTAT:HJJR IMPRESSION: 1. Limited examination because of motion artifact and the patient's inability to cooperate with all of the standard protocol sequences. 2. Changes at the T11-12 level seen on the CT from earlier the same day have the appearance more co nsistent with degeneration than infection with a posterior disk bulge, ligamentum flavum hypertrophy and facet arthropathy as well as a small left sided facet synovial cyst, the combination of finding s contributing to mild central canal stenosis. If deemed clinically necessary, a repeat examination with patient sedation and intravenous Gadolinium should be considered to exclude the less likely po ssibility of posterior epidural phlegmon. 3. Endplate degenerative signal changes with some bone marrow edema involving the inferior T3 level with T3-4 degenerative disk disease causing a most mild central canal stenosis as seen on the CT ex am. 4. Multilevel bridging osteophytes again raising concern for seronegative spondyloarthropathy. 5. No evidence of acute compression deformity or thoracic cord compression. Physician Estrella Date Time Electronically viewed and signed by Physician Estrella on 12/18/2016 16:24 /
[2016-12-18] MEDS: ERTAPENEM SODIUM 0.5 GM in SOD CHLORIDE 0.9% 100 ML IVPB SCH (16:45)
--- NOTE | 2016-12-18 19:49 | CONS ---
Date/Time of Note Date/Time of Note DATE: 12/18/16 TIME: 19:46 Assessment/Plan Assessment/Plan Chief Complaint/Hosp Course SUBJECTIVE: No events, awake, looks comfortable. No fevers MICROBIOLOGY: Blood and urine culture growing Proteus mirabilis susceptible to all antibiotics. ANTIMICROBIALS: Invanz Indwelling: RIJ danielle 12/13 DIAGNOSTICS: Ultrasound of the abdomen revealed nonobstructive bilateral renal calculi. Chest x-ray showed no acute cardiopulmonary process. CT of the brain on admission revealed no acute intracranial pathology. Renal ultrasound revealed no evidence of obstructive uropathy. PHYSICAL EXAMINATION: GENERAL: Obese well-developed, middle-aged man who is alert, in no distress. HEENT: Head atraumatic, normocephalic. Sclerae anicteric. Buccal mucosa dry. NECK: Supple, trachea midline. CHEST: Rise symmetrical. Breath sounds clear. HEART: S1, S2. ABDOMEN: Soft, bowel tones present. EXTREMITIES: Without cyanosis. ASSESSMENT: 1. Sepsis with acute encephalopathy on admission, acute renal failure. 2. Proteus mirabilis urinary tract infection with bacteremia. 3. Acute kidney failure, possible chronic kidney disease. 4. History of gout. 5. Hypertension. 6. Atrial fibrillation. 7. History of alcohol abuse. 8. 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 PLAN: Clinically stable, pending repeat spinal MRI with IV contrast, continue abx, f/u nephrology rec-s staff Problems: Consultation Date/Type/Reason Admit Date/Time December 10, 2016 at 16:57 Type of Consultation: ID Referring Provider: CLOVIS SHORE Exam/Review of Systems Vital Signs Vitals Vital Signs Date Time Temp Pulse Resp B/P Pulse Ox O2 Delivery O2 Flow Rate FiO2 12/18/16 12:57 68 12/18/16 12:04 98.5 17 145/67 94 12/17/16 20:00 Nasal Cannula 2.0 Intake and Output 12/17/16 12/17/16 12/18/16 15:00 23:00 07:00 Intake Total 2911.2 ml 1200 ml Output Total 1200 ml 600 ml Balance 1711.2 ml 600 ml Results Result Diagram: 12/18/16 0622 12/18/16 0622 Results 24 hrs Laboratory Tests Test 12/18/16 06:22 12/18/16 14:30 White Blood Count 10.1 # Red Blood Count 2.93 L Hemoglobin 9.1 L Hematocrit 27.1 L Mean Corpuscular Volume 92.5 Mean Corpuscular Hemoglobin 31.1 Mean Corpuscular Hemoglobin Concent 33.6 Red Cell Distribution Width 15.6 H Platelet Count 204 Mean Platelet Volume 11.1 H Neutrophils % 81.8 H Lymphocytes % 7.5 L Monocytes % 6.7 Eosinophils % 2.4 Basophils % 0.4 Nucleated Red Blood Cells % 0.0 Neutrophils # 8.3 H Lymphocytes # 0.8 Monocytes # 0.7 Eosinophils # 0.2 Basophils # 0.0 Nucleated Red Blood Cells # 0.0 Sodium Level 136 Potassium Level 3.8 Chloride Level 104 Carbon Dioxide Level 20 L Anion Gap 16 Blood Urea Nitrogen 51 H Creatinine 4.95 H Glucose Level 85 Calcium Level 7.9 L Ammonia < 9 L Medications Medications Current Medications Ondansetron HCl (Zofran Inj) 4 mg Q6H PRN IV NAUSEA AND/OR VOMITING Last administered on 12/11/16 06:45; Admin Dose 4 MG; Start 12/10/16 at 18:00 Acetaminophen (Tylenol Tab) 650 mg Q6H PRN PO PAIN LEVEL 1-3 OR FEVER; Start at 18:00 Morphine Sulfate (morphine) 2 mg Q4H PRN IV PAIN LEVEL 7-10 Last administered on 12/15/16 05:31; Admin Dose 2 MG; Start 12/10/16 at 18:00 Magnesium Hydroxide (Milk Of Mag) 30 ml DAILY PRN PO CONSTIPATION; Start at 18:00 Bisacodyl (Dulcolax) 5 mg DAILY PRN PO CONSTIPATION; Start 12/10/16 at 18:00 Famotidine (Pepcid) 20 mg DAILY PO Last administered on 12/18/16 09:30; Admin Dose 20 MG; Start 12/11/16 at 09:00 Hydralazine HCl (Apresoline) 10 mg Q6H PRN IV SBP>160 Last administered on 12/15 17:56; Admin Dose 10 MG; Start 12/10/16 at 18:00 Atorvastatin Calcium (Lipitor) 10 mg DAILY@21 PO Last administered on 21:28; Admin Dose 10 MG; Start 12/10/16 at 21:00 Lorazepam (Ativan) 1 mg Q2H PRN IV Anxiety Last administered on 12/15/16 21:20 ; Admin Dose 1 MG; Start 12/10/16 at 18:30 Heparin Sodium (Porcine) (Heparin (5000 Units/0.5 ml)) 5,000 unit BID SC Last administered on 12/18/16 09:31; Admin Dose 5,000 UNIT; Start 12/11/16 at 21:00 Chlordiazepoxide (Librium) 50 mg BID PO Last administered on 12/18/16 09:30; Admin Dose 50 MG; Start 12/11/16 at 21:00 Miscellaneous Information (* Miscellaneous Pharmacy Order) pharmacy to dose, g... ONCE XX ; Start 12/12/16 at 02:30 Acetaminophen/ Hydrocodone Bitart 2 tab 2 tab Q4H PRN PO pain Last administered on 12/18/16 09:55; Admin Dose 2 TAB; Start 12/13/16 at 10:30 Ertapenem 0.5 gm/ Sodium Chloride 100 ml @ 200 mls/hr Q24H IVPB Last administered on 12/18/16 16:45; Admin Dose 200 MLS/HR; Start 12/14/16 at 14:00 Amiodarone HCl 900 mg/Dextrose 500 ml @ 0 mls/hr Q0M IV Last administered on 13:49; Admin Dose 33.4 MLS/HR; Start 12/14/16 at 13:00 Diltiazem HCl (Cardizem-D5W 125 Mg/125 ml Drip) 125 ml @ 5 mls/hr TITRATE IV ; Start 12/16/16 at 22:45 Megestrol Acetate (Megace Susp) 400 mg BID PO Last administered on 12/18/16 09 :30; Admin Dose 400 MG; Start 12/17/16 at 13:00 Amiodarone HCl (Cordarone) 400 mg BID PO Last administered on 12/18/16 09:31; Admin Dose 400 MG; Start 12/17/16 at 21:00 Metoprolol Tartrate 50 mg 50 mg BID PO Last administered on 12/18/16 09:30; Admin Dose 50 MG; Start 12/17/16 at 21:00 Dextrose/Sodium Chloride (D5-1/2ns) 1,000 ml @ 50 mls/hr Q20H IV Last administered on 12/18/16t 11:53; Admin Dose 50 MLS/HR; Start 12/18/16 at 11:30 Mirtazapine (Remeron) 15 mg HS PO ; Start 12/18/16 at 21:00 CHERRIE JAUREGUI NP December 18, 2016 19:49
[2016-12-18] MEDS: ATORVASTATIN 10 MG TAB PO SCH (20:44)
[2016-12-18] MEDS: MIRTAZAPINE 15 MG TAB PO SCH (20:45)
[2016-12-19] VITALS (12 sets, daily range): BP systolic 125–171; BP diastolic 60–87; PULSE 73–89; RESP 16–19
[2016-12-19] MEDS: hydrALAzine 20 MG INJ IV PRN (01:28)
[2016-12-19] MEDS: DEXTROSE 5%-0.45% NACL 1,000 ML IV SCH ×2 (07:30→14:13)
[2016-12-19 07:32] LABS: ADD SCAN DIFF NO
[2016-12-19 07:39] LABS: ABNORMAL IP MESSAGE 1; BASOPHILS % 0.3 % (0.0-2.0); EOSINOPHILS # 0.2 10^3/ul (0.0-0.5); EOSINOPHILS % 1.6 % (0.0-7.0); HEMATOCRIT 24.4 % (42.0-52.0); HEMOGLOBIN 8.3 g/dl (14.0-18.0); LYMPHOCYTES # 0.5 10^3/ul (0.8-2.9); LYMPHOCYTES % 5.7 % (15.0-51.0); MEAN CORPUSCULAR HEMOGLOBIN 30.6 pg (29.0-33.0); MEAN PLATELET VOLUME 11.5 fl (7.4-10.4); MONOCYTE # 0.8 10^3/ul (0.3-0.9); MONOCYTES % 8.4 % (0.0-11.0); NEUTROPHIL # 7.8 10^3/ul (1.6-7.5); NEUTROPHILS % 83.1 % (39.0-77.0); PLATELET COUNT 239 10^3/UL (140-415); RED BLOOD COUNT 2.71 10^6/ul (4.70-6.10); RED CELL DISTRIBUTION WIDTH 15.4 % (11.5-14.5); WHITE BLOOD COUNT 9.4 10^3/ul (4.8-10.8)
[2016-12-19 07:54] LABS: CALCIUM 8.1 mg/dl (8.4-10.2); CREATININE 5.19 mg/dl (0.61-1.24); POTASSIUM 3.8 mmol/L (3.5-5.1)
[2016-12-19] MEDS: MEGESTROL (40 MG/ML) 10ML CUP PO SCH ×2 (09:11→21:00)
[2016-12-19] MEDS: METOPROLOL 50 MG TAB PO SCH ×2 (09:12→21:00)
[2016-12-19] MEDS: AMIODARONE 200 MG TAB PO SCH ×2 (09:12→21:00)
[2016-12-19] MEDS: CHLORDIAZEPOXIDE 25 MG CAP PO SCH ×2 (09:12→21:00)
[2016-12-19] MEDS: FAMOTIDINE 20 MG TAB PO SCH (09:12)
[2016-12-19] MEDS: HEPARIN 5,000 UNIT/0.5 ML VIAL SC SCH ×2 (09:14→21:24)
--- NOTE | 2016-12-19 10:30 | PN ---
DATE: SUBJECTIVE: The patient reports feeling worse short of breath, uncomfortable. PHYSICAL EXAMINATION: GENERAL: He is coughing, in no acute distress. VITAL SIGNS: Temperature 98, pulse 80, blood pressure 124/60. LUNGS: Diffuse rhonchi are heard bilaterally. CARDIAC: Currently regular rate and rhythm. ABDOMEN: Soft. EXTREMITIES: Reveal no edema. CURRENT MEDICATIONS: 1. Remeron. 2. Amiodarone 400 mg b.i.d. 3. Metoprolol 50 mg b.i.d. 4. Ertapenem. 5. [place] 6. Atorvastatin. LABORATORY RESULTS: White count 9.4, hematocrit 24.4, platelet count 239. Sodium 133, potassium 3. 8, BUN 52, creatinine 5.19. ASSESSMENT: 1. Renal failure. 2. Preserved ejection fraction. 3. Bacteremia. 4. Paroxysmal atrial fibrillation, currently in sinus rhythm. 5. Hypertension. 6. Alcohol abuse. 7. Urinary tract infection. At this time, I will continue amiodarone for paroxysmal atrial fibrillation. Will decide anticoagul ation as he improves clinically given heavy alcohol use, possible pneumonia on x-ray on broad spectr um antibiotics. Dictated By: GUSTAVO TANNER/RIKA Conf#: [id number] DID#: [id number]
--- NOTE | 2016-12-19 12:21 | CONS ---
Date/Time of Note Date/Time of Note DATE: 12/19/16 TIME: 12:18 Consult Date/Type/Reason Admit Date/Time December 10, 2016 at 16:57 Initial Consult Date Type of Consultation: ID Ordering Provider: CLOVIS SHORE Subjective Alert, confused 1.4 L urine output last night , BP stable, BUN/cr still high, dw Dr Miguel Avalos- umer to monitor. dw staff. Objective Vital Signs Date Time Temp Pulse Resp B/P Pulse Ox O2 Delivery O2 Flow Rate FiO2 12/19/16 12:02 88 12/19/16 11:51 98.0 19 154/70 98 12/17/16 20:00 Nasal Cannula 2.0 Intake and Output 12/18/16 12/18/16 12/19/16 15:00 23:00 07:00 Intake Total 450 ml 500 ml 750 ml Output Total 600 ml 800 ml Balance 450 ml -100 ml -50 ml Exam Constitutional: alert, confused Eyes: nl conjunctiva ENMT: nl external ears & nose Neck: supple Respiratory: clear to auscultation Cardiovascular: regular rate and rhythm Gastrointestinal: soft Results/Medications Result Diagram: 12/19/1631 12/19/1631 Results 24 hrs Laboratory Tests Test 12/18/16 14:30 12/19/16 06:31 Ammonia < 9 L White Blood Count 9.4 Red Blood Count 2.71 L Hemoglobin 8.3 L Hematocrit 24.4 L Mean Corpuscular Volume 90.0 Mean Corpuscular Hemoglobin 30.6 Mean Corpuscular Hemoglobin Concent 34.0 Red Cell Distribution Width 15.4 H Platelet Count 239 Mean Platelet Volume 11.5 H Neutrophils % 83.1 H Lymphocytes % 5.7 L Monocytes % 8.4 Eosinophils % 1.6 Basophils % 0.3 Nucleated Red Blood Cells % 0.0 Neutrophils # 7.8 H Lymphocytes # 0.5 L Monocytes # 0.8 Eosinophils # 0.2 Basophils # 0.0 Nucleated Red Blood Cells # 0.0 Sodium Level 133 L Potassium Level 3.8 Chloride Level 108 Carbon Dioxide Level 21 Anion Gap 8 # Blood Urea Nitrogen 52 H Creatinine 5.19 H Glucose Level 106 Calcium Level 8.1 L Medications Current Medications Ondansetron HCl (Zofran Inj) 4 mg Q6H PRN IV NAUSEA AND/OR VOMITING Last administered on 12/11/16 06:45; Admin Dose 4 MG; Start 12/10/16 at 18:00 Acetaminophen (Tylenol Tab) 650 mg Q6H PRN PO PAIN LEVEL 1-3 OR FEVER; Start at 18:00 Morphine Sulfate (morphine) 2 mg Q4H PRN IV PAIN LEVEL 7-10 Last administered on 12/15/16 05:31; Admin Dose 2 MG; Start 12/10/16 at 18:00 Magnesium Hydroxide (Milk Of Mag) 30 ml DAILY PRN PO CONSTIPATION; Start at 18:00 Bisacodyl (Dulcolax) 5 mg DAILY PRN PO CONSTIPATION; Start 12/10/16 at 18:00 Famotidine (Pepcid) 20 mg DAILY PO Last administered on 12/19/16 09:12; Admin Dose 20 MG; Start 12/11/16 at 09:00 Hydralazine HCl (Apresoline) 10 mg Q6H PRN IV SBP>160 Last administered on 12/19 01:28; Admin Dose 10 MG; Start 12/10/16 at 18:00 Atorvastatin Calcium (Lipitor) 10 mg DAILY@21 PO Last administered on 20:44; Admin Dose 10 MG; Start 12/10/16 at 21:00 Lorazepam (Ativan) 1 mg Q2H PRN IV Anxiety Last administered on 12/15/16 21:20 ; Admin Dose 1 MG; Start 12/10/16 at 18:30 Heparin Sodium (Porcine) (Heparin (5000 Units/0.5 ml)) 5,000 unit BID SC Last administered on 12/19/16 09:14; Admin Dose 5,000 UNIT; Start 12/11/16 at 21:00 Chlordiazepoxide (Librium) 50 mg BID PO Last administered on 12/19/16 09:12; Admin Dose 50 MG; Start 12/11/16 at 21:00 Miscellaneous Information (* Miscellaneous Pharmacy Order) pharmacy to dose, g... ONCE XX ; Start 12/12/16 at 02:30 Acetaminophen/ Hydrocodone Bitart 2 tab 2 tab Q4H PRN PO pain Last administered on 12/18/16 09:55; Admin Dose 2 TAB; Start 12/13/16 at 10:30 Ertapenem 0.5 gm/ Sodium Chloride 100 ml @ 200 mls/hr Q24H IVPB Last administered on 12/18/16 16:45; Admin Dose 200 MLS/HR; Start 12/14/16 at 14:00 Amiodarone HCl 900 mg/Dextrose 500 ml @ 0 mls/hr Q0M IV Last administered on 13:49; Admin Dose 33.4 MLS/HR; Start 12/14/16 at 13:00 Diltiazem HCl (Cardizem-D5W 125 Mg/125 ml Drip) 125 ml @ 5 mls/hr TITRATE IV ; Start 12/16/16 at 22:45 Megestrol Acetate (Megace Susp) 400 mg BID PO Last administered on 12/19/16 09 :11; Admin Dose 400 MG; Start 12/17/16 at 13:00 Amiodarone HCl (Cordarone) 400 mg BID PO Last administered on 12/19/16 09:12; Admin Dose 400 MG; Start 12/17/16 at 21:00 Metoprolol Tartrate 50 mg 50 mg BID PO Last administered on 12/19/16 09:12; Admin Dose 50 MG; Start 12/17/16 at 21:00 Dextrose/Sodium Chloride (D5-1/2ns) 1,000 ml @ 50 mls/hr Q20H IV Last administered on 12/18/16 11:53; Admin Dose 50 MLS/HR; Start 12/18/16 at 11:30 Mirtazapine (Remeron) 15 mg HS PO Last administered on 12/18/16 20:45; Admin Dose 15 MG; Start 12/18/16 at 21:00 Assessment/Plan Additional Assessment/Plan 1. Acute kidney injury, multifactorial, not improving despite being on IVF hydration, BUN/Cr persistently high ,.started on HD during this admission 2. Hyponatremia 3. Status post fall, which was a mechanical fall, but likely due to the hyponatremia. CT brain is negative. 4. Possible history of chronic kidney disease secondary to hypertensive nephrosclerosis. 5. History of hypertension. 6. History of gout. 7. History of hyperlipidemia. 8. Atrial fibrillation, rate controlled. 9. History of alcohol abuse. 10. Thrombocytopenia secondary to alcohol abuse. 11. sepsis due to UTI and bacteremia with Blood cx and urine Cx growing proteus PLAN: ,sarted on HD through right iJ danielle HD catheter , 24 hr urine collection showed 1.4 L urine output, pt BUN/Cr still persistently high, no plan for HD today and will reassess tomorrow Blood cx and Urine cx grew proteus - on IV abx - Follow up blood cx on 12/16/16 negative to date - ammonia level -< 9 megace for apetite, remeron 15 mg pO QHS Cont D51/2 NS at 50cc/hr Cont to monitor will follow up Further recommendations depend upon patient's clinical course. Total time spent is 30 mins in reviewing patients chart/DW Dr Miguel Priest;/staff/patient. МАРИНА DOSHI December 19, 2016 12:21
--- NOTE | 2016-12-19 13:04 | PN ---
Date/Time of Note Date/Time of Note DATE: 12/19/16 TIME: 12:56 Assessment/Plan VTE Prophylaxis VTE Prophylaxis Intervention: heparin Lines/Catheters IV Catheter Type (from Nrsg): Peripheral IV Urinary Cath still in place: Yes Reason Cath still needed: other (indicate) (monitor I&O) Assessment/Plan Chief Complaint/Hosp Course Acute assessment and plan 1. Acute renal insufficiency. . Continue on dialysis per nephrology recommendation. Monitor renal panel. Permacath per nephrology recommendations 2. Status post fall. Brain CT was negative for any acute intrarenal findings. PT following. Analgesics as needed 3. Essential hypertension. Continue antihypertensives and adjust as needed. Stable 4. Reported history of gout. No active issue at this time we will monitor for now. 5. Sepsis with underlying urinary tract infection/bacteremia with Proteus mirabilis. Continue antibiotics per ID recommendations, repeat blood cx negative. Appears to be improved 6. Dyslipidemia. Continue statin medication. Stable 7. A. fib with RVR. cont amiodarone and telemetry monitoring. Rate controlled at this time 8. Alcohol abuse. Alcohol cessation was advised. 9. Normocytic anemia. Likely secondary to alcohol abuse. S&S of bleeding. Monitor for now. 10. Back pain. Thoracic and lumbar MRI with no evidence of compression or disc bulge. Continue with physical therapy and analgesics. DVT prophylaxis: Heparin Disposition plan: appears more oriented today. Continue physical therapy. Dialysis per shift supervisor melting. Discharge when medically stable and cleared by consultants Discussed plan of care with Dr. Barnett Problems: Subjective 24 Hr Interval Summary Free Text/Dictation appears more alert today Exam/Review of Systems Vital Signs Vitals Vital Signs Date Time Temp Pulse Resp B/P Pulse Ox O2 Delivery O2 Flow Rate FiO2 12/19/16 12:02 88 12/19/16 11:51 98.0 19 154/70 98 12/17/16 20:00 Nasal Cannula 2.0 Intake and Output 12/18/16 12/18/16 12/19/16 15:00 23:00 07:00 Intake Total 450 ml 500 ml 750 ml Output Total 600 ml 800 ml Balance 450 ml -100 ml -50 ml Exam Constitutional: more alert. no s/s of distress Psych: nl mood/affect Head: normocephalic Eyes: nl conjunctiva Neck: No jvd Respiratory: diminished breath sounds Cardiovascular: irregular rhythm Gastrointestinal: non-tender, soft Musculoskeletal: nl extremities to inspection Neurological: more alert nl speech Skin: nl turgor Results Result Diagram: 12/19/16 0631 12/19/16 0631 Results 24 hrs Laboratory Tests Test 12/18/16 14:30 12/19/16 06:31 Ammonia < 9 L White Blood Count 9.4 Red Blood Count 2.71 L Hemoglobin 8.3 L Hematocrit 24.4 L Mean Corpuscular Volume 90.0 Mean Corpuscular Hemoglobin 30.6 Mean Corpuscular Hemoglobin Concent 34.0 Red Cell Distribution Width 15.4 H Platelet Count 239 Mean Platelet Volume 11.5 H Neutrophils % 83.1 H Lymphocytes % 5.7 L Monocytes % 8.4 Eosinophils % 1.6 Basophils % 0.3 Nucleated Red Blood Cells % 0.0 Neutrophils # 7.8 H Lymphocytes # 0.5 L Monocytes # 0.8 Eosinophils # 0.2 Basophils # 0.0 Nucleated Red Blood Cells # 0.0 Sodium Level 133 L Potassium Level 3.8 Chloride Level 108 Carbon Dioxide Level 21 Anion Gap 8 # Blood Urea Nitrogen 52 H Creatinine 5.19 H Glucose Level 106 Calcium Level 8.1 L Medications Medications Current Medications Ondansetron HCl (Zofran Inj) 4 mg Q6H PRN IV NAUSEA AND/OR VOMITING Last administered on 12/11/16 06:45; Admin Dose 4 MG; Start 12/10/16 at 18:00 Acetaminophen (Tylenol Tab) 650 mg Q6H PRN PO PAIN LEVEL 1-3 OR FEVER; Start at 18:00 Morphine Sulfate (morphine) 2 mg Q4H PRN IV PAIN LEVEL 7-10 Last administered on 12/15/16 05:31; Admin Dose 2 MG; Start 12/10/16 at 18:00 Magnesium Hydroxide (Milk Of Mag) 30 ml DAILY PRN PO CONSTIPATION; Start at 18:00 Bisacodyl (Dulcolax) 5 mg DAILY PRN PO CONSTIPATION; Start 12/10/16 at 18:00 Famotidine (Pepcid) 20 mg DAILY PO Last administered on 12/19/16 09:12; Admin Dose 20 MG; Start 12/11/16 at 09:00 Hydralazine HCl (Apresoline) 10 mg Q6H PRN IV SBP>160 Last administered on 12/19 01:28; Admin Dose 10 MG; Start 12/10/16 at 18:00 Atorvastatin Calcium (Lipitor) 10 mg DAILY@21 PO Last administered on 20:44; Admin Dose 10 MG; Start 12/10/16 at 21:00 Lorazepam (Ativan) 1 mg Q2H PRN IV Anxiety Last administered on 12/15/16 21:20 ; Admin Dose 1 MG; Start 12/10/16 at 18:30 Heparin Sodium (Porcine) (Heparin (5000 Units/0.5 ml)) 5,000 unit BID SC Last administered on 12/19/16 09:14; Admin Dose 5,000 UNIT; Start 12/11/16 at 21:00 Chlordiazepoxide (Librium) 50 mg BID PO Last administered on 12/19/16 09:12; Admin Dose 50 MG; Start 12/11/16 at 21:00 Miscellaneous Information (* Miscellaneous Pharmacy Order) pharmacy to dose, g... ONCE XX ; Start 12/12/16 at 02:30 Acetaminophen/ Hydrocodone Bitart 2 tab 2 tab Q4H PRN PO pain Last administered on 12/18/16 09:55; Admin Dose 2 TAB; Start 12/13/16 at 10:30 Ertapenem 0.5 gm/ Sodium Chloride 100 ml @ 200 mls/hr Q24H IVPB Last administered on 12/18/16 16:45; Admin Dose 200 MLS/HR; Start 12/14/16 at 14:00 Amiodarone HCl 900 mg/Dextrose 500 ml @ 0 mls/hr Q0M IV Last administered on 13:49; Admin Dose 33.4 MLS/HR; Start 12/14/16 at 13:00 Diltiazem HCl (Cardizem-D5W 125 Mg/125 ml Drip) 125 ml @ 5 mls/hr TITRATE IV ; Start 12/16/16 at 22:45 Megestrol Acetate (Megace Susp) 400 mg BID PO Last administered on 12/19/16 09 :11; Admin Dose 400 MG; Start 12/17/16 at 13:00 Amiodarone HCl (Cordarone) 400 mg BID PO Last administered on 12/19/16 09:12; Admin Dose 400 MG; Start 12/17/16 at 21:00 Metoprolol Tartrate 50 mg 50 mg BID PO Last administered on 12/19/16 09:12; Admin Dose 50 MG; Start 12/17/16 at 21:00 Dextrose/Sodium Chloride (D5-1/2ns) 1,000 ml @ 50 mls/hr Q20H IV Last administered on 12/18/16 11:53; Admin Dose 50 MLS/HR; Start 12/18/16 at 11:30 Mirtazapine (Remeron) 15 mg HS PO Last administered on 12/18/16 20:45; Admin Dose 15 MG; Start 12/18/16 at 21:00 SANJAY ANDREA December 19, 2016 13:04
[2016-12-19] MEDS: ERTAPENEM SODIUM 0.5 GM in SOD CHLORIDE 0.9% 100 ML IVPB SCH (14:13)
--- NOTE | 2016-12-19 15:36 | CONS ---
Date/Time of Note Date/Time of Note DATE: 12/19/16 TIME: 15:33 Assessment/Plan Assessment/Plan Chief Complaint/Hosp Course SUBJECTIVE: No events, more confused, low grade temps, nad MICROBIOLOGY: Blood and urine culture growing Proteus mirabilis susceptible to all antibiotics. ANTIMICROBIALS: Invanz Indwelling: RIJ danielle 12/13 DIAGNOSTICS: Ultrasound of the abdomen revealed nonobstructive bilateral renal calculi. Chest x-ray showed no acute cardiopulmonary process. CT of the brain on admission revealed no acute intracranial pathology. Renal ultrasound revealed no evidence of obstructive uropathy. PHYSICAL EXAMINATION: GENERAL: Obese well-developed, middle-aged man who is alert, in no distress. HEENT: Head atraumatic, normocephalic. Sclerae anicteric. Buccal mucosa dry. NECK: Supple, trachea midline. CHEST: Rise symmetrical. Breath sounds clear. HEART: S1, S2. ABDOMEN: Soft, bowel tones present. EXTREMITIES: Without cyanosis. ASSESSMENT: 1. Sepsis with acute encephalopathy 2. Proteus mirabilis urinary tract infection with bacteremia. 3. Acute kidney failure, possible chronic kidney disease. 4. HCAP, poss aspiration. 5. Hypertension. 6. Atrial fibrillation. 7. History of alcohol abuse. 8. 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 PLAN: More lethargic and confused, pending repeat spinal MRI with IV contrast, will change abx to Merrem and Zyvox, consider NPO and swallow eval, f/u cxr/ nephrology rec-s DW staff Problems: Consultation Date/Type/Reason Admit Date/Time December 10, 2016 at 16:57 Type of Consultation: ID Referring Provider: CLOVIS SHORE Exam/Review of Systems Vital Signs Vitals Vital Signs Date Time Temp Pulse Resp B/P Pulse Ox O2 Delivery O2 Flow Rate FiO2 12/19/16 12:02 88 12/19/16 11:51 98.0 19 154/70 98 12/17/16 20:00 Nasal Cannula 2.0 Intake and Output 12/18/16 12/18/16 12/19/16 15:00 23:00 07:00 Intake Total 450 ml 500 ml 750 ml Output Total 600 ml 800 ml Balance 450 ml -100 ml -50 ml Results Result Diagram: 12/19/16 0631 12/19/16 0631 Results 24 hrs Laboratory Tests Test 12/19/16 06:31 White Blood Count 9.4 Red Blood Count 2.71 L Hemoglobin 8.3 L Hematocrit 24.4 L Mean Corpuscular Volume 90.0 Mean Corpuscular Hemoglobin 30.6 Mean Corpuscular Hemoglobin Concent 34.0 Red Cell Distribution Width 15.4 H Platelet Count 239 Mean Platelet Volume 11.5 H Neutrophils % 83.1 H Lymphocytes % 5.7 L Monocytes % 8.4 Eosinophils % 1.6 Basophils % 0.3 Nucleated Red Blood Cells % 0.0 Neutrophils # 7.8 H Lymphocytes # 0.5 L Monocytes # 0.8 Eosinophils # 0.2 Basophils # 0.0 Nucleated Red Blood Cells # 0.0 Sodium Level 133 L Potassium Level 3.8 Chloride Level 108 Carbon Dioxide Level 21 Anion Gap 8 # Blood Urea Nitrogen 52 H Creatinine 5.19 H Glucose Level 106 Calcium Level 8.1 L Medications Medications Current Medications Ondansetron HCl (Zofran Inj) 4 mg Q6H PRN IV NAUSEA AND/OR VOMITING Last administered on 12/11/16 06:45; Admin Dose 4 MG; Start 12/10/16 at 18:00 Acetaminophen (Tylenol Tab) 650 mg Q6H PRN PO PAIN LEVEL 1-3 OR FEVER; Start at 18:00 Morphine Sulfate (morphine) 2 mg Q4H PRN IV PAIN LEVEL 7-10 Last administered on 12/15/16 05:31; Admin Dose 2 MG; Start 12/10/16 at 18:00 Magnesium Hydroxide (Milk Of Mag) 30 ml DAILY PRN PO CONSTIPATION; Start at 18:00 Bisacodyl (Dulcolax) 5 mg DAILY PRN PO CONSTIPATION; Start 12/10/16 at 18:00 Famotidine (Pepcid) 20 mg DAILY PO Last administered on 12/19/16 09:12; Admin Dose 20 MG; Start 12/11/16 at 09:00 Hydralazine HCl (Apresoline) 10 mg Q6H PRN IV SBP>160 Last administered on 12/19 01:28; Admin Dose 10 MG; Start 12/10/16 at 18:00 Atorvastatin Calcium (Lipitor) 10 mg DAILY@21 PO Last administered on 20:44; Admin Dose 10 MG; Start 12/10/16 at 21:00 Lorazepam (Ativan) 1 mg Q2H PRN IV Anxiety Last administered on 12/15/16 21:20 ; Admin Dose 1 MG; Start 12/10/16 at 18:30 Heparin Sodium (Porcine) (Heparin (5000 Units/0.5 ml)) 5,000 unit BID SC Last administered on 12/19/16 09:14; Admin Dose 5,000 UNIT; Start 12/11/16 at 21:00 Chlordiazepoxide (Librium) 50 mg BID PO Last administered on 12/19/16 09:12; Admin Dose 50 MG; Start 12/11/16 at 21:00 Miscellaneous Information (* Miscellaneous Pharmacy Order) pharmacy to dose, g... ONCE XX ; Start 12/12/16 at 02:30 Acetaminophen/ Hydrocodone Bitart 2 tab 2 tab Q4H PRN PO pain Last administered on 12/18/16 09:55; Admin Dose 2 TAB; Start 12/13/16 at 10:30 Ertapenem 0.5 gm/ Sodium Chloride 100 ml @ 200 mls/hr Q24H IVPB Last administered on 12/19/16 14:13; Admin Dose 200 MLS/HR; Start 12/14/16 at 14:00 Amiodarone HCl 900 mg/Dextrose 500 ml @ 0 mls/hr Q0M IV Last administered on 13:49; Admin Dose 33.4 MLS/HR; Start 12/14/16 at 13:00 Diltiazem HCl (Cardizem-D5W 125 Mg/125 ml Drip) 125 ml @ 5 mls/hr TITRATE IV ; Start 12/16/16 at 22:45 Megestrol Acetate (Megace Susp) 400 mg BID PO Last administered on 12/19/16 09 :11; Admin Dose 400 MG; Start 12/17/16 at 13:00 Amiodarone HCl (Cordarone) 400 mg BID PO Last administered on 12/19/16 09:12; Admin Dose 400 MG; Start 12/17/16 at 21:00 Metoprolol Tartrate 50 mg 50 mg BID PO Last administered on 12/19/16 09:12; Admin Dose 50 MG; Start 12/17/16 at 21:00 Dextrose/Sodium Chloride (D5-1/2ns) 1,000 ml @ 50 mls/hr Q20H IV Last administered on 12/19/16 14:13; Admin Dose 50 MLS/HR; Start 12/18/16 at 11:30 Mirtazapine (Remeron) 15 mg HS PO Last administered on 12/18/16 20:45; Admin Dose 15 MG; Start 12/18/16 at 21:00 CHERRIE JAUREGUI NP December 19, 2016 15:35
[2016-12-19] MEDS: ATORVASTATIN 10 MG TAB PO SCH (21:00)
[2016-12-19] MEDS: MIRTAZAPINE 15 MG TAB PO SCH (21:00)
[2016-12-19] MEDS: MEROPENEM 500 MG/100 ML (PMX) 100 ML IVPB SCH (21:19)
[2016-12-19] MEDS: LINEZOLID 600 MG/D5W (PMX) 300 ML IVPB SCH (21:22)
[2016-12-20] VITALS (12 sets, daily range): BP systolic 126–184; BP diastolic 58–74; PULSE 74–87; RESP 16–20
[2016-12-20] MEDS: hydrALAzine 20 MG INJ IV PRN (04:26)
[2016-12-20] MEDS: HYDROCODONE/APAP (5/325) TAB PO PRN (05:09)
[2016-12-20 06:41] LABS: ADD SCAN DIFF NO
[2016-12-20 06:42] LABS: BASOPHILS % 0.3 % (0.0-2.0); EOSINOPHILS # 0.2 10^3/ul (0.0-0.5); HEMATOCRIT 27.2 % (42.0-52.0); HEMOGLOBIN 9.1 g/dl (14.0-18.0); LYMPHOCYTES # 0.8 10^3/ul (0.8-2.9); LYMPHOCYTES % 8.3 % (15.0-51.0); MEAN CORPUSCULAR HEMOGLOBIN 30.2 pg (29.0-33.0); MEAN CORPUSCULAR HGB CONC 33.5 g/dl (32.0-37.0); MEAN CORPUSCULAR VOLUME 90.4 fl (82.0-101.0); MEAN PLATELET VOLUME 11.4 fl (7.4-10.4); MONOCYTE # 0.6 10^3/ul (0.3-0.9); MONOCYTES % 7.1 % (0.0-11.0); NEUTROPHIL # 7.4 10^3/ul (1.6-7.5); NEUTROPHILS % 81.5 % (39.0-77.0); PLATELET COUNT 287 10^3/UL (140-415); RED BLOOD COUNT 3.01 10^6/ul (4.70-6.10); RED CELL DISTRIBUTION WIDTH 15.4 % (11.5-14.5)
[2016-12-20 07:06] LABS: ALBUMIN/GLOBULIN RATIO 0.65
[2016-12-20 07:07] LABS: BILIRUBIN,TOTAL 0.1 mg/dl (0.2-1.3); CALCIUM 8.4 mg/dl (8.4-10.2); CREATININE 5.39 mg/dl (0.61-1.24); POTASSIUM 4.1 mmol/L (3.5-5.1)
[2016-12-20 07:08] LABS: ALBUMIN 2.1 g/dl (3.3-4.9); BILIRUBIN,INDIRECT 0.1 mg/dl (0-1.1); TOTAL PROTEIN 5.3 g/dl (6.1-8.1)
--- NOTE | 2016-12-20 07:49 | RADRPT ---
PROCEDURE: XR Chest. CLINICAL INDICATION: Shortness of breath. TECHNIQUE: Single frontal view. COMPARISON: 12/17/2016. FINDINGS: There is a temporary right internal jugular vein dialysis catheter with the tip in the lower superio r vena cava. Air space disease is present in the right mid and lower lung zones consistent with ate lectasis or pneumonia, unchanged. The left lung is clear. The heart size is normal. There is calcification in the aorta consistent with atherosclerosis. There is no pleural effusion. There is no pneumothorax. IMPRESSION: 1. No change from 12/17/2016. RPTAT: QQ .Trung De Anda MD, MD Date Time Electronically viewed and signed by .Trung De Anda MD, MD on 12/20/2016 07:48 .R/
[2016-12-20] MEDS: CHLORDIAZEPOXIDE 25 MG CAP PO SCH ×2 (09:50→21:16)
[2016-12-20] MEDS: METOPROLOL 50 MG TAB PO SCH ×2 (09:50→21:16)
[2016-12-20] MEDS: LINEZOLID 600 MG/D5W (PMX) 300 ML IVPB SCH ×2 (09:50→21:17)
[2016-12-20] MEDS: MEGESTROL (40 MG/ML) 10ML CUP PO SCH ×2 (09:50→21:28)
[2016-12-20] MEDS: FAMOTIDINE 20 MG TAB PO SCH (09:51)
[2016-12-20] MEDS: AMIODARONE 200 MG TAB PO SCH ×2 (09:51→21:15)
[2016-12-20] MEDS: HEPARIN 5,000 UNIT/0.5 ML VIAL SC SCH ×2 (10:02→21:17)
[2016-12-20] MEDS: MEROPENEM 500 MG/100 ML (PMX) 100 ML IVPB SCH ×2 (12:38→21:15)
--- NOTE | 2016-12-20 13:18 | PN ---
Date/Time of Note Date/Time of Note DATE: 12/20/16 TIME: 13:14 Assessment/Plan VTE Prophylaxis VTE Prophylaxis Intervention: heparin Lines/Catheters IV [facility] Type (from [facility]): Peripheral IV Central line still needed: Yes Urinary Cath still in place: Yes Reason Cath still needed: other (indicate) Assessment/Plan Chief Complaint/Hosp Course 1. Acute kidney injury. Etiology unclear. Continue IV hydration. Nephrology following. Avoid nephrotoxic medications. The patient was temporarily started on hemodialysis. 2. Status post fall. Brain CT negative for any acute intracranial findings. Physical therapy evaluation. 3. Essential hypertension. Continue routine antihypertensives and as needed antihypertensives for any systolic blood pressure readings greater than 160 mercury. 4. Gout. Uric acid levels within normal limits. 5. Sepsis with underlying urinary tract infection and gram-negative bacteremia. The patient on antibiotics as per Infectious Disease. No evidence of septic shock. 6. Hyperlipidemia. Continue statins. Fasting lipid panel suboptimal. 7. Paroxysmal atrial fibrillation. The patient will be continued on beta blockers and amiodarone.. Currently in sinus rhythm. 8. Alcohol abuse. Continue daily banana bag. Monitor for any alcohol withdrawal delirium. 9. Dysphagia. Continue aspiration precautions. Diet as per speech therapy. 10. Acute encephalopathy. Probably metabolic in origin. Monitor. Brain CT scan negative for any acute findings. 11. Fluids, electrolytes, and nutrition. Low-cholesterol diet. 12. DVT prophylaxis. Subcutaneous heparin. 13. Gastrointestinal prophylaxis. Histamine 2 receptor blockers. 14. Plan. Continue antibiotics as per infectious diseases. Monitor renal function closely. Await further recommendations from nephrology. Continue physical therapy. Case discussed with Dr. Carbajal. Case discussed with nephrology. Problems: Subjective 24 Hr Interval Summary Free Text/Dictation The patient remains lethargic. Exam/Review of Systems Vital Signs Vitals Vital Signs Date Time Temp Pulse Resp B/P Pulse Ox O2 Delivery O2 Flow Rate FiO2 12/20/16 12:02 97.5 81 17 126/58 94 12/19/16 19:33 Nasal Cannula 2.0 Intake and Output 12/19/16 12/19/16 12/20/16 14:59 22:59 06:59 Intake Total 350 ml 300 ml 0 ml Output Total 400 ml 800 ml Balance 350 ml -100 ml -800 ml Exam GENERAL: This is a well-built, well-nourished male patient lying in bed in no apparent distress. HEENT: Head normocephalic and atraumatic. Eyes: Anicteric sclerae. Conjunctivae clear. ENT: Nasal septum is midline. Oral mucosa is dry. NECK: Supple. No JVD noticed. RESPIRATORY: Bilaterally clear to auscultation. No adventitious breath sounds. No use of accessory muscles of respiration. CARDIAC: Regular rate and rhythm. S1-S2 heard. ABDOMEN: Soft, nontender, nondistended. Bowel sounds positive in all 4 quadrants. GENITOURINARY: Deferred. EXTREMITIES: No cyanosis, no clubbing, no edema. Peripheral pulses are palpable. NEUROLOGIC: The patient is lethargic. Results Result Diagram: 12/20/16 0613 12/20/16 0613 Results 24 hrs Laboratory Tests Test 12/20/16 06:13 White Blood Count 9.0 Red Blood Count 3.01 L Hemoglobin 9.1 L Hematocrit 27.2 L Mean Corpuscular Volume 90.4 Mean Corpuscular Hemoglobin 30.2 Mean Corpuscular Hemoglobin Concent 33.5 Red Cell Distribution Width 15.4 H Platelet Count 287 # Mean Platelet Volume 11.4 H Neutrophils % 81.5 H Lymphocytes % 8.3 L Monocytes % 7.1 Eosinophils % 2.0 Basophils % 0.3 Nucleated Red Blood Cells % 0.0 Neutrophils # 7.4 Lymphocytes # 0.8 Monocytes # 0.6 Eosinophils # 0.2 Basophils # 0.0 Nucleated Red Blood Cells # 0.0 Sodium Level 135 Potassium Level 4.1 Chloride Level 109 Carbon Dioxide Level 20 L Anion Gap 10 Blood Urea Nitrogen 53 H Creatinine 5.39 H Glucose Level 98 Calcium Level 8.4 Total Bilirubin 0.1 L Direct Bilirubin 0.00 Indirect Bilirubin 0.1 Aspartate Amino Transf (AST/SGOT) 41 Alanine Aminotransferase (ALT/SGPT) 36 Alkaline Phosphatase 75 Total Protein 5.3 L Albumin 2.1 L Globulin 3.20 Albumin/Globulin Ratio 0.65 Medications Medications Current Medications Ondansetron HCl (Zofran Inj) 4 mg Q6H PRN IV NAUSEA AND/OR VOMITING Last administered on 12/11/16 06:45; Admin Dose 4 MG; Start 12/10/16 at 18:00 Acetaminophen (Tylenol Tab) 650 mg Q6H PRN PO PAIN LEVEL 1-3 OR FEVER; Start at 18:00 Morphine Sulfate (morphine) 2 mg Q4H PRN IV PAIN LEVEL 7-10 Last administered on 12/15/16 05:31; Admin Dose 2 MG; Start 12/10/16 at 18:00 Magnesium Hydroxide (Milk Of Mag) 30 ml DAILY PRN PO CONSTIPATION; Start at 18:00 Bisacodyl (Dulcolax) 5 mg DAILY PRN PO CONSTIPATION; Start 12/10/16 at 18:00 Famotidine (Pepcid) 20 mg DAILY PO Last administered on 12/20/16 09:51; Admin Dose 20 MG; Start 12/11/16 at 09:00 Hydralazine HCl (Apresoline) 10 mg Q6H PRN IV SBP>160 Last administered on 12/20 04:26; Admin Dose 10 MG; Start 12/10/16 at 18:00 Atorvastatin Calcium (Lipitor) 10 mg DAILY@21 PO Last administered on 20:44; Admin Dose 10 MG; Start 12/10/16 at 21:00 Lorazepam (Ativan) 1 mg Q2H PRN IV Anxiety Last administered on 12/15/16 21:20 ; Admin Dose 1 MG; Start 12/10/16 at 18:30 Heparin Sodium (Porcine) (Heparin (5000 Units/0.5 ml)) 5,000 unit BID SC Last administered on 12/20/16 10:02; Admin Dose 5,000 UNIT; Start 12/11/16 at 21:00 Chlordiazepoxide (Librium) 50 mg BID PO Last administered on 12/20/16 09:50; Admin Dose 50 MG; Start 12/11/16 at 21:00 Miscellaneous Information (* Miscellaneous Pharmacy Order) pharmacy to dose, g... ONCE XX ; Start 12/12/16 at 02:30 Acetaminophen/ Hydrocodone Bitart 2 tab 2 tab Q4H PRN PO pain Last administered on 12/20/16 05:09; Admin Dose 2 TAB; Start 12/13/16 at 10:30 Amiodarone HCl 900 mg/Dextrose 500 ml @ 0 mls/hr Q0M IV Last administered on 13:49; Admin Dose 33.4 MLS/HR; Start 12/14/16 at 13:00 Diltiazem HCl (Cardizem-D5W 125 Mg/125 ml Drip) 125 ml @ 5 mls/hr TITRATE IV ; Start 12/16/16 at 22:45 Megestrol Acetate (Megace Susp) 400 mg BID PO Last administered on 12/20/16 09 :50; Admin Dose 400 MG; Start 12/17/16 at 13:00 Amiodarone HCl (Cordarone) 400 mg BID PO Last administered on 12/20/16 09:51; Admin Dose 400 MG; Start 12/17/16 at 21:00 Metoprolol Tartrate 50 mg 50 mg BID PO Last administered on 12/20/16 09:50; Admin Dose 50 MG; Start 12/17/16 at 21:00 Dextrose/Sodium Chloride (D5-1/2ns) 1,000 ml @ 50 mls/hr Q20H IV Last administered on 12/19/16 14:13; Admin Dose 50 MLS/HR; Start 12/18/16 at 11:30 Mirtazapine 15 mg 15 mg HS PO Last administered on 12/18/16 20:45; Admin Dose 15 MG; Start 12/18/16 at 21:00 Meropenem 100 ml @ 200 mls/hr Q12 IVPB Last administered on 12/20/16 12:38; Admin Dose 200 MLS/HR; Start 12/19/16 at 21:00 Linezolid (Zyvox 600mg/D5W (Pmx)) 300 ml @ 300 mls/hr Q12 IVPB Last administered on 12/20/16 09:50; Admin Dose 300 MLS/HR; Start 12/19/16 at 21:00 JACK JENNINGS NP December 20, 2016 13:18
--- NOTE | 2016-12-20 13:24 | CONS ---
Date/Time of Note Date/Time of Note DATE: 12/20/16 TIME: 13:23 Assessment/Plan Assessment/Plan Additional Assessment/Plan Acute kidney injury Preserved ejection fraction Status post fall Sepsis with bacteremia Paroxysmal atrial fibrillation, currently sinus rhythm History of hypertension Recent UTI Alcohol abuse -Patient with brief episode of atrial fibrillation this morning and converted back to sinus. In discussion with nursing staff, this was during speech and swallow evaluation. Would continue amiodarone, beta-anjelica and titrate as blood pressure and heart rate permits. Fluid management as per our nephrology colleagues. Consultation Date/Type/Reason Admit Date/Time December 10, 2016 at 16:57 Type of Consultation: cv Referring Provider: CLOVIS SHORE 24 HR Interval Summary Free Text/Dictation Denies shortness of breath, chest pain, palpitations Exam/Review of Systems Vital Signs Vitals Vital Signs Date Time Temp Pulse Resp B/P Pulse Ox O2 Delivery O2 Flow Rate FiO2 12/20/16 12:02 97.5 81 17 126/58 94 12/19/16 19:33 Nasal Cannula 2.0 Intake and Output 12/19/16 12/19/16 12/20/16 15:00 23:00 07:00 Intake Total 350 ml 300 ml 0 ml Output Total 400 ml 800 ml Balance 350 ml -100 ml -800 ml Exam Sleeping but arousable, no apparent distress Head: normocephalic Respiratory: other (Coarse breath sounds bilaterally, no wheezing) Cardiovascular: other (S1-S2 heard), regular rate and rhythm Gastrointestinal: bowel sounds, non-tender, soft Extremities: edema (Trace) Results Result Diagram: 12/20/16 0613 12/20/16 0613 Results 24 hrs Laboratory Tests Test 12/20/16 06:13 White Blood Count 9.0 Red Blood Count 3.01 L Hemoglobin 9.1 L Hematocrit 27.2 L Mean Corpuscular Volume 90.4 Mean Corpuscular Hemoglobin 30.2 Mean Corpuscular Hemoglobin Concent 33.5 Red Cell Distribution Width 15.4 H Platelet Count 287 # Mean Platelet Volume 11.4 H Neutrophils % 81.5 H Lymphocytes % 8.3 L Monocytes % 7.1 Eosinophils % 2.0 Basophils % 0.3 Nucleated Red Blood Cells % 0.0 Neutrophils # 7.4 Lymphocytes # 0.8 Monocytes # 0.6 Eosinophils # 0.2 Basophils # 0.0 Nucleated Red Blood Cells # 0.0 Sodium Level 135 Potassium Level 4.1 Chloride Level 109 Carbon Dioxide Level 20 L Anion Gap 10 Blood Urea Nitrogen 53 H Creatinine 5.39 H Glucose Level 98 Calcium Level 8.4 Total Bilirubin 0.1 L Direct Bilirubin 0.00 Indirect Bilirubin 0.1 Aspartate Amino Transf (AST/SGOT) 41 Alanine Aminotransferase (ALT/SGPT) 36 Alkaline Phosphatase 75 Total Protein 5.3 L Albumin 2.1 L Globulin 3.20 Albumin/Globulin Ratio 0.65 Medications Medications Current Medications Ondansetron HCl (Zofran Inj) 4 mg Q6H PRN IV NAUSEA AND/OR VOMITING Last administered on 12/11/16 06:45; Admin Dose 4 MG; Start 12/10/16 at 18:00 Acetaminophen (Tylenol Tab) 650 mg Q6H PRN PO PAIN LEVEL 1-3 OR FEVER; Start at 18:00 Morphine Sulfate (morphine) 2 mg Q4H PRN IV PAIN LEVEL 7-10 Last administered on 12/15/16 05:31; Admin Dose 2 MG; Start 12/10/16 at 18:00 Magnesium Hydroxide (Milk Of Mag) 30 ml DAILY PRN PO CONSTIPATION; Start at 18:00 Bisacodyl (Dulcolax) 5 mg DAILY PRN PO CONSTIPATION; Start 12/10/16 at 18:00 Famotidine (Pepcid) 20 mg DAILY PO Last administered on 12/20/16 09:51; Admin Dose 20 MG; Start 12/11/16 at 09:00 Hydralazine HCl (Apresoline) 10 mg Q6H PRN IV SBP>160 Last administered on 12/20 04:26; Admin Dose 10 MG; Start 12/10/16 at 18:00 Atorvastatin Calcium (Lipitor) 10 mg DAILY@21 PO Last administered on 20:44; Admin Dose 10 MG; Start 12/10/16 at 21:00 Lorazepam (Ativan) 1 mg Q2H PRN IV Anxiety Last administered on 12/15/16 21:20 ; Admin Dose 1 MG; Start 12/10/16 at 18:30 Heparin Sodium (Porcine) (Heparin (5000 Units/0.5 ml)) 5,000 unit BID SC Last administered on 12/20/16 10:02; Admin Dose 5,000 UNIT; Start 12/11/16 at 21:00 Chlordiazepoxide (Librium) 50 mg BID PO Last administered on 12/20/16 09:50; Admin Dose 50 MG; Start 12/11/16 at 21:00 Miscellaneous Information (* Miscellaneous Pharmacy Order) pharmacy to dose, g... ONCE XX ; Start 12/12/16 at 02:30 Acetaminophen/ Hydrocodone Bitart 2 tab 2 tab Q4H PRN PO pain Last administered on 12/20/16 05:09; Admin Dose 2 TAB; Start 12/13/16 at 10:30 Amiodarone HCl 900 mg/Dextrose 500 ml @ 0 mls/hr Q0M IV Last administered on 13:49; Admin Dose 33.4 MLS/HR; Start 12/14/16 at 13:00 Diltiazem HCl (Cardizem-D5W 125 Mg/125 ml Drip) 125 ml @ 5 mls/hr TITRATE IV ; Start 12/16/16 at 22:45 Megestrol Acetate (Megace Susp) 400 mg BID PO Last administered on 12/20/16 09 :50; Admin Dose 400 MG; Start 12/17/16 at 13:00 Amiodarone HCl (Cordarone) 400 mg BID PO Last administered on 12/20/16 09:51; Admin Dose 400 MG; Start 12/17/16 at 21:00 Metoprolol Tartrate 50 mg 50 mg BID PO Last administered on 12/20/16 09:50; Admin Dose 50 MG; Start 12/17/16 at 21:00 Dextrose/Sodium Chloride (D5-1/2ns) 1,000 ml @ 50 mls/hr Q20H IV Last administered on 12/19/16 14:13; Admin Dose 50 MLS/HR; Start 12/18/16 at 11:30 Mirtazapine 15 mg 15 mg HS PO Last administered on 12/18/16 20:45; Admin Dose 15 MG; Start 12/18/16 at 21:00 Meropenem 100 ml @ 200 mls/hr Q12 IVPB Last administered on 12/20/16 12:38; Admin Dose 200 MLS/HR; Start 12/19/16 at 21:00 Linezolid (Zyvox 600mg/D5W (Pmx)) 300 ml @ 300 mls/hr Q12 IVPB Last administered on 12/20/16t 09:50; Admin Dose 300 MLS/HR; Start 12/19/16 at 21:00 Zeyad Kelly DO December 20, 2016 13:24
--- NOTE | 2016-12-20 13:47 | CONS ---
Date/Time of Note Date/Time of Note DATE: 12/20/16 TIME: 13:45 Assessment/Plan Assessment/Plan Chief Complaint/Hosp Course SUBJECTIVE: No events, lethargic, nad MICROBIOLOGY: Blood and urine culture growing Proteus mirabilis susceptible to all antibiotics. ANTIMICROBIALS: Zyvox, Merrem Indwelling: RIJ danielle 12/13 PHYSICAL EXAMINATION: GENERAL: Obese well-developed, middle-aged man who is alert, in no distress. HEENT: Head atraumatic, normocephalic. Sclerae anicteric. Buccal mucosa dry. NECK: Supple, trachea midline. CHEST: Rise symmetrical. Breath sounds clear. HEART: S1, S2. ABDOMEN: Soft, bowel tones present. EXTREMITIES: Without cyanosis. ASSESSMENT: 1. Sepsis with acute encephalopathy 2. Proteus mirabilis urinary tract infection with bacteremia. 3. Acute kidney failure, possible chronic kidney disease. 4. HCAP, poss aspiration. 5. Hypertension. 6. Atrial fibrillation. 7. History of alcohol abuse. 8. 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 PLAN: Remains unchanged, pending repeat spinal MRI with IV contrast, continue abx/aspiration precautions, f/u nephrology rec-s [facility] staff Problems: Consultation Date/Type/Reason Admit Date/Time December 10, 2016 at 16:57 Type of Consultation: ID Referring Provider: CLOVIS SHORE Exam/Review of Systems Vital Signs Vitals Vital Signs Date Time Temp Pulse Resp B/P Pulse Ox O2 Delivery O2 Flow Rate FiO2 12/20/16 12:02 97.5 81 17 126/58 94 12/19/16 19:33 Nasal Cannula 2.0 Intake and Output 12/19/16 12/19/16 12/20/16 15:00 23:00 07:00 Intake Total 350 ml 300 ml 0 ml Output Total 400 ml 800 ml Balance 350 ml -100 ml -800 ml Results Result Diagram: 12/20/16 0613 12/20/16 0613 Results 24 hrs Laboratory Tests Test 12/20/16 06:13 White Blood Count 9.0 Red Blood Count 3.01 L Hemoglobin 9.1 L Hematocrit 27.2 L Mean Corpuscular Volume 90.4 Mean Corpuscular Hemoglobin 30.2 Mean Corpuscular Hemoglobin Concent 33.5 Red Cell Distribution Width 15.4 H Platelet Count 287 # Mean Platelet Volume 11.4 H Neutrophils % 81.5 H Lymphocytes % 8.3 L Monocytes % 7.1 Eosinophils % 2.0 Basophils % 0.3 Nucleated Red Blood Cells % 0.0 Neutrophils # 7.4 Lymphocytes # 0.8 Monocytes # 0.6 Eosinophils # 0.2 Basophils # 0.0 Nucleated Red Blood Cells # 0.0 Sodium Level 135 Potassium Level 4.1 Chloride Level 109 Carbon Dioxide Level 20 L Anion Gap 10 Blood Urea Nitrogen 53 H Creatinine 5.39 H Glucose Level 98 Calcium Level 8.4 Total Bilirubin 0.1 L Direct Bilirubin 0.00 Indirect Bilirubin 0.1 Aspartate Amino Transf (AST/SGOT) 41 Alanine Aminotransferase (ALT/SGPT) 36 Alkaline Phosphatase 75 Total Protein 5.3 L Albumin 2.1 L Globulin 3.20 Albumin/Globulin Ratio 0.65 Medications Medications Current Medications Ondansetron HCl (Zofran Inj) 4 mg Q6H PRN IV NAUSEA AND/OR VOMITING Last administered on 12/11/16 06:45; Admin Dose 4 MG; Start 12/10/16 at 18:00 Acetaminophen (Tylenol Tab) 650 mg Q6H PRN PO PAIN LEVEL 1-3 OR FEVER; Start at 18:00 Morphine Sulfate (morphine) 2 mg Q4H PRN IV PAIN LEVEL 7-10 Last administered on 12/15/16 05:31; Admin Dose 2 MG; Start 12/10/16 at 18:00 Magnesium Hydroxide (Milk Of Mag) 30 ml DAILY PRN PO CONSTIPATION; Start at 18:00 Bisacodyl (Dulcolax) 5 mg DAILY PRN PO CONSTIPATION; Start 12/10/16 at 18:00 Famotidine (Pepcid) 20 mg DAILY PO Last administered on 12/20/16 09:51; Admin Dose 20 MG; Start 12/11/16 at 09:00 Hydralazine HCl (Apresoline) 10 mg Q6H PRN IV SBP>160 Last administered on 12/20 04:26; Admin Dose 10 MG; Start 12/10/16 at 18:00 Atorvastatin Calcium (Lipitor) 10 mg DAILY@21 PO Last administered on 20:44; Admin Dose 10 MG; Start 12/10/16 at 21:00 Lorazepam (Ativan) 1 mg Q2H PRN IV Anxiety Last administered on 12/15/16 21:20 ; Admin Dose 1 MG; Start 12/10/16 at 18:30 Heparin Sodium (Porcine) (Heparin (5000 Units/0.5 ml)) 5,000 unit BID SC Last administered on 12/20/16 10:02; Admin Dose 5,000 UNIT; Start 12/11/16 at 21:00 Chlordiazepoxide (Librium) 50 mg BID PO Last administered on 12/20/16 09:50; Admin Dose 50 MG; Start 12/11/16 at 21:00 Miscellaneous Information (* Miscellaneous Pharmacy Order) pharmacy to dose, g... ONCE XX ; Start 12/12/16 at 02:30 Acetaminophen/ Hydrocodone Bitart 2 tab 2 tab Q4H PRN PO pain Last administered on 12/20/16 05:09; Admin Dose 2 TAB; Start 12/13/16 at 10:30 Amiodarone HCl 900 mg/Dextrose 500 ml @ 0 mls/hr Q0M IV Last administered on 13:49; Admin Dose 33.4 MLS/HR; Start 12/14/16 at 13:00 Diltiazem HCl (Cardizem-D5W 125 Mg/125 ml Drip) 125 ml @ 5 mls/hr TITRATE IV ; Start 12/16/16 at 22:45 Megestrol Acetate (Megace Susp) 400 mg BID PO Last administered on 12/20/16 09 :50; Admin Dose 400 MG; Start 12/17/16 at 13:00 Amiodarone HCl (Cordarone) 400 mg BID PO Last administered on 12/20/16 09:51; Admin Dose 400 MG; Start 12/17/16 at 21:00 Metoprolol Tartrate 50 mg 50 mg BID PO Last administered on 12/20/16 09:50; Admin Dose 50 MG; Start 12/17/16 at 21:00 Dextrose/Sodium Chloride (D5-1/2ns) 1,000 ml @ 50 mls/hr Q20H IV Last administered on 12/19/16 14:13; Admin Dose 50 MLS/HR; Start 12/18/16 at 11:30 Mirtazapine 15 mg 15 mg HS PO Last administered on 12/18/16 20:45; Admin Dose 15 MG; Start 12/18/16 at 21:00 Meropenem 100 ml @ 200 mls/hr Q12 IVPB Last administered on 12/20/16t 12:38; Admin Dose 200 MLS/HR; Start 12/19/16 at 21:00 Linezolid (Zyvox 600mg/D5W (Pmx)) 300 ml @ 300 mls/hr Q12 IVPB Last administered on 12/20/16 09:50; Admin Dose 300 MLS/HR; Start 12/19/16 at 21:00 CHERRIE JAUREGUI NP December 20, 2016 13:47
--- NOTE | 2016-12-20 13:52 | CONS ---
Date/Time of Note Date/Time of Note DATE: 12/20/16 TIME: 13:47 Assessment/Plan Assessment/Plan Additional Assessment/Plan 1. Acute kidney injury, multifactorial, not improving despite being on IVF hydration, BUN/Cr persistently high ,.started on HD during this admission 2. Hyponatremia 3. Status post fall, which was a mechanical fall, but likely due to the hyponatremia. CT brain is negative. 4. Possible history of chronic kidney disease secondary to hypertensive nephrosclerosis. 5. History of hypertension. 6. History of gout. 7. History of hyperlipidemia. 8. Atrial fibrillation, rate controlled. 9. History of alcohol abuse. 10. Thrombocytopenia secondary to alcohol abuse. 11. sepsis due to UTI and bacteremia with Blood cx and urine Cx growing proteus PLAN: ,sarted on HD through right iJ danielle HD catheter , making good urine, but still has high BUn/Cr - will reasses for HD in AM Blood cx and Urine cx grew proteus - on IV abx - Follow up blood cx on 12/16/16 negative to date check ammonia level megace for apetite, remeron 15 mg pO QHS started on nector thick liquids will follow up Consultation Date/Type/Reason Admit Date/Time December 10, 2016 at 16:57 Type of Consultation: NEPHROLOGY Referring Provider: CLOVIS SHORE 24 HR Interval Summary Free Text/Dictation not getting out of bed, lethargic today, no plan for HD today Exam/Review of Systems Vital Signs Vitals Vital Signs Date Time Temp Pulse Resp B/P Pulse Ox O2 Delivery O2 Flow Rate FiO2 12/20/16 12:02 97.5 81 17 126/58 94 12/19/16 19:33 Nasal Cannula 2.0 Intake and Output 12/19/16 12/19/16 12/20/16 15:00 23:00 07:00 Intake Total 350 ml 300 ml 0 ml Output Total 400 ml 800 ml Balance 350 ml -100 ml -800 ml Exam Constitutional: sleepy Eyes: nl conjunctiva ENMT: nl external ears & nose Neck: supple Respiratory: clear to auscultation Cardiovascular: regular rate and rhythm Gastrointestinal: soft Results Result Diagram: 12/20/16 0613 12/20/16 0613 Results 24 hrs Laboratory Tests Test 12/20/16 06:13 White Blood Count 9.0 Red Blood Count 3.01 L Hemoglobin 9.1 L Hematocrit 27.2 L Mean Corpuscular Volume 90.4 Mean Corpuscular Hemoglobin 30.2 Mean Corpuscular Hemoglobin Concent 33.5 Red Cell Distribution Width 15.4 H Platelet Count 287 # Mean Platelet Volume 11.4 H Neutrophils % 81.5 H Lymphocytes % 8.3 L Monocytes % 7.1 Eosinophils % 2.0 Basophils % 0.3 Nucleated Red Blood Cells % 0.0 Neutrophils # 7.4 Lymphocytes # 0.8 Monocytes # 0.6 Eosinophils # 0.2 Basophils # 0.0 Nucleated Red Blood Cells # 0.0 Sodium Level 135 Potassium Level 4.1 Chloride Level 109 Carbon Dioxide Level 20 L Anion Gap 10 Blood Urea Nitrogen 53 H Creatinine 5.39 H Glucose Level 98 Calcium Level 8.4 Total Bilirubin 0.1 L Direct Bilirubin 0.00 Indirect Bilirubin 0.1 Aspartate Amino Transf (AST/SGOT) 41 Alanine Aminotransferase (ALT/SGPT) 36 Alkaline Phosphatase 75 Total Protein 5.3 L Albumin 2.1 L Globulin 3.20 Albumin/Globulin Ratio 0.65 Medications Medications Current Medications Ondansetron HCl (Zofran Inj) 4 mg Q6H PRN IV NAUSEA AND/OR VOMITING Last administered on 12/11/16 06:45; Admin Dose 4 MG; Start 12/10/16 at 18:00 Acetaminophen (Tylenol Tab) 650 mg Q6H PRN PO PAIN LEVEL 1-3 OR FEVER; Start at 18:00 Morphine Sulfate (morphine) 2 mg Q4H PRN IV PAIN LEVEL 7-10 Last administered on 12/15/16 05:31; Admin Dose 2 MG; Start 12/10/16 at 18:00 Magnesium Hydroxide (Milk Of Mag) 30 ml DAILY PRN PO CONSTIPATION; Start at 18:00 Bisacodyl (Dulcolax) 5 mg DAILY PRN PO CONSTIPATION; Start 12/10/16 at 18:00 Famotidine (Pepcid) 20 mg DAILY PO Last administered on 12/20/16 09:51; Admin Dose 20 MG; Start 12/11/16 at 09:00 Hydralazine HCl (Apresoline) 10 mg Q6H PRN IV SBP>160 Last administered on 12/20 04:26; Admin Dose 10 MG; Start 12/10/16 at 18:00 Atorvastatin Calcium (Lipitor) 10 mg DAILY@21 PO Last administered on 20:44; Admin Dose 10 MG; Start 12/10/16 at 21:00 Lorazepam (Ativan) 1 mg Q2H PRN IV Anxiety Last administered on 12/15/16 21:20 ; Admin Dose 1 MG; Start 12/10/16 at 18:30 Heparin Sodium (Porcine) (Heparin (5000 Units/0.5 ml)) 5,000 unit BID SC Last administered on 12/20/16 10:02; Admin Dose 5,000 UNIT; Start 12/11/16 at 21:00 Chlordiazepoxide (Librium) 50 mg BID PO Last administered on 12/20/16 09:50; Admin Dose 50 MG; Start 12/11/16 at 21:00 Miscellaneous Information (* Miscellaneous Pharmacy Order) pharmacy to dose, g... ONCE XX ; Start 12/12/16 at 02:30 Acetaminophen/ Hydrocodone Bitart 2 tab 2 tab Q4H PRN PO pain Last administered on 12/20/16 05:09; Admin Dose 2 TAB; Start 12/13/16 at 10:30 Amiodarone HCl 900 mg/Dextrose 500 ml @ 0 mls/hr Q0M IV Last administered on 13:49; Admin Dose 33.4 MLS/HR; Start 12/14/16 at 13:00 Diltiazem HCl (Cardizem-D5W 125 Mg/125 ml Drip) 125 ml @ 5 mls/hr TITRATE IV ; Start 12/16/16 at 22:45 Megestrol Acetate (Megace Susp) 400 mg BID PO Last administered on 12/20/16 09 :50; Admin Dose 400 MG; Start 12/17/16 at 13:00 Amiodarone HCl (Cordarone) 400 mg BID PO Last administered on 12/20/16 09:51; Admin Dose 400 MG; Start 12/17/16 at 21:00 Metoprolol Tartrate 50 mg 50 mg BID PO Last administered on 12/20/16 09:50; Admin Dose 50 MG; Start 12/17/16 at 21:00 Dextrose/Sodium Chloride (D5-1/2ns) 1,000 ml @ 50 mls/hr Q20H IV Last administered on 12/19/16 14:13; Admin Dose 50 MLS/HR; Start 12/18/16 at 11:30 Mirtazapine 15 mg 15 mg HS PO Last administered on 12/18/16 20:45; Admin Dose 15 MG; Start 12/18/16 at 21:00 Meropenem 100 ml @ 200 mls/hr Q12 IVPB Last administered on 12/20/16 12:38; Admin Dose 200 MLS/HR; Start 12/19/16 at 21:00 Linezolid (Zyvox 600mg/D5W (Pmx)) 300 ml @ 300 mls/hr Q12 IVPB Last administered on 12/20/16 09:50; Admin Dose 300 MLS/HR; Start 12/19/16 at 21:00 MADELYN MIRANDA MD December 20, 2016 13:52
[2016-12-20] MEDS: DEXTROSE 5%-0.45% NACL 1,000 ML IV SCH (18:38)
[2016-12-20] MEDS: ATORVASTATIN 10 MG TAB PO SCH (21:16)
[2016-12-20] MEDS: MIRTAZAPINE 15 MG TAB PO SCH (21:16)
[2016-12-21] VITALS (13 sets, daily range): BP systolic 136–167; BP diastolic 57–79; PULSE 75–90; RESP 17–20
[2016-12-21 07:56] LABS: ADD SCAN DIFF NO
[2016-12-21 08:04] LABS: BASOPHILS % 0.5 % (0.0-2.0); EOSINOPHILS # 0.2 10^3/ul (0.0-0.5); EOSINOPHILS % 2.2 % (0.0-7.0); HEMATOCRIT 26.9 % (42.0-52.0); LYMPHOCYTES # 0.8 10^3/ul (0.8-2.9); LYMPHOCYTES % 9.4 % (15.0-51.0); MEAN CORPUSCULAR HEMOGLOBIN 30.6 pg (29.0-33.0); MEAN CORPUSCULAR HGB CONC 33.5 g/dl (32.0-37.0); MEAN CORPUSCULAR VOLUME 91.5 fl (82.0-101.0); MONOCYTE # 0.7 10^3/ul (0.3-0.9); MONOCYTES % 8.1 % (0.0-11.0); NEUTROPHIL # 6.8 10^3/ul (1.6-7.5); PLATELET COUNT 342 10^3/UL (140-415); RED BLOOD COUNT 2.94 10^6/ul (4.70-6.10); RED CELL DISTRIBUTION WIDTH 15.4 % (11.5-14.5); WHITE BLOOD COUNT 8.6 10^3/ul (4.8-10.8)
[2016-12-21 08:23] LABS: POTASSIUM 4.4 mmol/L (3.5-5.1)
[2016-12-21 08:25] LABS: CREATININE 5.66 mg/dl (0.61-1.24)
[2016-12-21 08:26] LABS: CALCIUM 8.5 mg/dl (8.4-10.2)
[2016-12-21] MEDS: MEROPENEM 500 MG/100 ML (PMX) 100 ML IVPB SCH ×2 (09:24→20:45)
[2016-12-21] MEDS: METOPROLOL 50 MG TAB PO SCH ×2 (09:27→20:47)
[2016-12-21] MEDS: FAMOTIDINE 20 MG TAB PO SCH (09:27)
[2016-12-21] MEDS: CHLORDIAZEPOXIDE 25 MG CAP PO SCH ×3 (09:27→21:00)
[2016-12-21] MEDS: AMIODARONE 200 MG TAB PO SCH ×2 (09:27→20:46)
[2016-12-21] MEDS: HYDROCODONE/APAP (5/325) TAB PO PRN (09:28)
[2016-12-21] MEDS: HEPARIN 5,000 UNIT/0.5 ML VIAL SC SCH ×2 (09:30→20:48)
--- NOTE | 2016-12-21 09:56 | PN ---
Date/Time of Note Date/Time of Note DATE: 12/21/16 TIME: 09:55 Assessment/Plan VTE Prophylaxis VTE Prophylaxis Intervention: heparin Lines/Catheters IV Catheter Type (from [facility]): Peripheral IV Urinary Cath still in place: Yes Reason Cath still needed: other (indicate) Assessment/Plan Chief Complaint/Hosp Course 1. Acute kidney injury. Etiology unclear. Continue IV hydration. Nephrology following. Avoid nephrotoxic medications. The patient was temporarily started on hemodialysis. 2. Status post fall. Brain CT negative for any acute intracranial findings. Physical therapy evaluation. 3. Essential hypertension. Continue routine antihypertensives and as needed antihypertensives for any systolic blood pressure readings greater than 160 mercury. 4. Gout. Uric acid levels within normal limits. 5. Sepsis with underlying urinary tract infection and gram-negative bacteremia. The patient on antibiotics as per Infectious Disease. No evidence of septic shock. 6. Hyperlipidemia. Continue statins. Fasting lipid panel suboptimal. 7. Paroxysmal atrial fibrillation. The patient will be continued on beta blockers and amiodarone.. Currently in sinus rhythm. Cardiology following. 8. Alcohol abuse. Continue daily banana bag. Monitor for any alcohol withdrawal delirium. 9. Dysphagia. Continue aspiration precautions. Diet as per speech therapy. 10. Acute encephalopathy. Probably metabolic in origin. Monitor. Brain CT scan negative for any acute findings. 11. Fluids, electrolytes, and nutrition. Low-cholesterol diet. 12. DVT prophylaxis. Subcutaneous heparin. 13. Gastrointestinal prophylaxis. Histamine 2 receptor blockers. 14. Plan. Continue antibiotics as per infectious diseases. Monitor renal function closely. Await further recommendations from nephrology. Continue physical therapy. Start routine stool softeners and PRN laxatives. Case discussed with Dr. Carbajal. Problems: Subjective 24 Hr Interval Summary Free Text/Dictation The patient is constipated. Reports no strength to get out of bed. Exam/Review of Systems Vital Signs Vitals Vital Signs Date Time Temp Pulse Resp B/P Pulse Ox O2 Delivery O2 Flow Rate FiO2 12/21/16 08:07 76 12/21/16 07:26 98.8 17 148/65 94 12/20/16 19:59 Nasal Cannula 2.0 Intake and Output 12/20/16 12/20/16 12/21/16 15:00 23:00 07:00 Intake Total 1200 ml 950 ml 450 ml Output Total 800 ml 1200 ml Balance 1200 ml 150 ml -750 ml Exam GENERAL: This is a well-built, well-nourished male patient lying in bed in no apparent distress. HEENT: Head normocephalic and atraumatic. Eyes: Anicteric sclerae. Conjunctivae clear. ENT: Nasal septum is midline. Oral mucosa is dry. NECK: Supple. No JVD noticed. RESPIRATORY: Bilaterally clear to auscultation. No adventitious breath sounds. No use of accessory muscles of respiration. CARDIAC: Regular rate and rhythm. S1-S2 heard. ABDOMEN: Soft, nontender, nondistended. Bowel sounds positive in all 4 quadrants. GENITOURINARY: Deferred. EXTREMITIES: No cyanosis, no clubbing, no edema. Peripheral pulses are palpable. NEUROLOGIC: The patient is awake and alert today. Results Result Diagram: 12/21/16 0720 12/21/16 0720 Results 24 hrs Laboratory Tests Test 12/21/16 07:20 White Blood Count 8.6 Red Blood Count 2.94 L Hemoglobin 9.0 L Hematocrit 26.9 L Mean Corpuscular Volume 91.5 Mean Corpuscular Hemoglobin 30.6 Mean Corpuscular Hemoglobin Concent 33.5 Red Cell Distribution Width 15.4 H Platelet Count 342 Mean Platelet Volume 11.0 H Neutrophils % 79.0 H Lymphocytes % 9.4 L Monocytes % 8.1 Eosinophils % 2.2 Basophils % 0.5 Nucleated Red Blood Cells % 0.0 Neutrophils # 6.8 Lymphocytes # 0.8 Monocytes # 0.7 Eosinophils # 0.2 Basophils # 0.0 Nucleated Red Blood Cells # 0.0 Sodium Level 136 Potassium Level 4.4 Chloride Level 105 Carbon Dioxide Level 22 Anion Gap 13 Blood Urea Nitrogen 54 H Creatinine 5.66 H Glucose Level 90 Calcium Level 8.5 Magnesium Level 2.1 Medications Medications Current Medications Ondansetron HCl (Zofran Inj) 4 mg Q6H PRN IV NAUSEA AND/OR VOMITING Last administered on 12/11/16 06:45; Admin Dose 4 MG; Start 12/10/16 at 18:00 Acetaminophen (Tylenol Tab) 650 mg Q6H PRN PO PAIN LEVEL 1-3 OR FEVER; Start at 18:00 Morphine Sulfate (morphine) 2 mg Q4H PRN IV PAIN LEVEL 7-10 Last administered on 12/15/16 05:31; Admin Dose 2 MG; Start 12/10/16 at 18:00 Magnesium Hydroxide (Milk Of Mag) 30 ml DAILY PRN PO CONSTIPATION; Start at 18:00 Bisacodyl (Dulcolax) 5 mg DAILY PRN PO CONSTIPATION; Start 12/10/16 at 18:00 Famotidine (Pepcid) 20 mg DAILY PO Last administered on 12/21/16 09:27; Admin Dose 20 MG; Start 12/11/16 at 09:00 Hydralazine HCl (Apresoline) 10 mg Q6H PRN IV SBP>160 Last administered on 12/20 04:26; Admin Dose 10 MG; Start 12/10/16 at 18:00 Atorvastatin Calcium (Lipitor) 10 mg DAILY@21 PO Last administered on 21:16; Admin Dose 10 MG; Start 12/10/16 at 21:00 Lorazepam (Ativan) 1 mg Q2H PRN IV Anxiety Last administered on 12/15/16 21:20 ; Admin Dose 1 MG; Start 12/10/16 at 18:30 Heparin Sodium (Porcine) (Heparin (5000 Units/0.5 ml)) 5,000 unit BID SC Last administered on 12/21/16 09:30; Admin Dose 5,000 UNIT; Start 12/11/16 at 21:00 Chlordiazepoxide (Librium) 50 mg BID PO Last administered on 12/21/16 09:27; Admin Dose 50 MG; Start 12/11/16 at 21:00 Miscellaneous Information (* Miscellaneous Pharmacy Order) pharmacy to dose, g... ONCE XX ; Start 12/12/16 at 02:30 Acetaminophen/ Hydrocodone Bitart 2 tab 2 tab Q4H PRN PO pain Last administered on 12/21/16 09:28; Admin Dose 1 TAB; Start 12/13/16 at 10:30 Amiodarone HCl 900 mg/Dextrose 500 ml @ 0 mls/hr Q0M IV Last administered on 13:49; Admin Dose 33.4 MLS/HR; Start 12/14/16 at 13:00 Diltiazem HCl (Cardizem-D5W 125 Mg/125 ml Drip) 125 ml @ 5 mls/hr TITRATE IV ; Start 12/16/16 at 22:45 Megestrol Acetate (Megace Susp) 400 mg BID PO Last administered on 12/20/16 21 :28; Admin Dose 400 MG; Start 12/17/16 at 13:00 Amiodarone HCl (Cordarone) 400 mg BID PO Last administered on 12/21/16 09:27; Admin Dose 400 MG; Start 12/17/16 at 21:00 Metoprolol Tartrate 50 mg 50 mg BID PO Last administered on 12/21/16 09:27; Admin Dose 50 MG; Start 12/17/16 at 21:00 Dextrose/Sodium Chloride (D5-1/2ns) 1,000 ml @ 50 mls/hr Q20H IV Last administered on 12/20/16 18:38; Admin Dose 50 MLS/HR; Start 12/18/16 at 11:30 Mirtazapine 15 mg 15 mg HS PO Last administered on 12/20/16 21:16; Admin Dose 15 MG; Start 12/18/16 at 21:00 Meropenem 100 ml @ 200 mls/hr Q12 IVPB Last administered on 12/21/16 09:24; Admin Dose 200 MLS/HR; Start 12/19/16 at 21:00 Linezolid (Zyvox 600mg/D5W (Pmx)) 300 ml @ 300 mls/hr Q12 IVPB Last administered on 12/20/16 21:17; Admin Dose 300 MLS/HR; Start 12/19/16 at 21:00 JACK JENNINGS NP December 21, 2016 09:56
[2016-12-21] MEDS: LINEZOLID 600 MG/D5W (PMX) 300 ML IVPB SCH ×2 (10:18→20:44)
[2016-12-21] MEDS: MEGESTROL (40 MG/ML) 10ML CUP PO SCH ×2 (10:18→20:47)
--- NOTE | 2016-12-21 12:46 | CONS ---
Date/Time of Note Date/Time of Note DATE: 12/21/16 TIME: 12:45 Assessment/Plan Assessment/Plan Additional Assessment/Plan 1. Acute kidney injury, multifactorial, not improving despite being on IVF hydration, BUN/Cr persistently high ,.started on HD during this admission 2. Hyponatremia 3. Status post fall, which was a mechanical fall, but likely due to the hyponatremia. CT brain is negative. 4. Possible history of chronic kidney disease secondary to hypertensive nephrosclerosis. 5. History of hypertension. 6. History of gout. 7. History of hyperlipidemia. 8. Atrial fibrillation, rate controlled. 9. History of alcohol abuse. 10. Thrombocytopenia secondary to alcohol abuse. 11. sepsis due to UTI and bacteremia with Blood cx and urine Cx growing proteus PLAN: started on HD through right iJ danielle HD catheter , making good urine, but still has high BUn/Cr - will reasses for HD in AM Blood cx and Urine cx grew proteus - on IV abx - Follow up blood cx on 12/16/16 negative to date megace for apetite, remeron 15 mg pO QHS started on nector thick liquids will follow up Consultation Date/Type/Reason Admit Date/Time December 10, 2016 at 16:57 Type of Consultation: NEPHROLOGY Referring Provider: CLOVIS SHORE 24 HR Interval Summary Free Text/Dictation making good urine output, But BUN/Cr persistently high, afebrile, BP stable Exam/Review of Systems Vital Signs Vitals Vital Signs Date Time Temp Pulse Resp B/P Pulse Ox O2 Delivery O2 Flow Rate FiO2 12/21/16 12:01 83 12/21/16 11:46 97.5 19 167/79 94 12/20/16 19:59 Nasal Cannula 2.0 Intake and Output 12/20/16 12/20/16 12/21/16 15:00 23:00 07:00 Intake Total 1200 ml 950 ml 450 ml Output Total 800 ml 1200 ml Balance 1200 ml 150 ml -750 ml Exam GENERAL: Obese well-developed, middle-aged man who is alert, in no distress. HEENT: Head atraumatic, normocephalic. Sclerae anicteric. Buccal mucosa dry. NECK: Supple, trachea midline. CHEST: Rise symmetrical. Breath sounds clear. HEART: S1, S2. ABDOMEN: Soft, bowel tones present. EXTREMITIES: Without cyanosis. Results Result Diagram: 12/21/16 0720 12/21/16 0720 Results 24 hrs Laboratory Tests Test 12/21/16 07:20 White Blood Count 8.6 Red Blood Count 2.94 L Hemoglobin 9.0 L Hematocrit 26.9 L Mean Corpuscular Volume 91.5 Mean Corpuscular Hemoglobin 30.6 Mean Corpuscular Hemoglobin Concent 33.5 Red Cell Distribution Width 15.4 H Platelet Count 342 Mean Platelet Volume 11.0 H Neutrophils % 79.0 H Lymphocytes % 9.4 L Monocytes % 8.1 Eosinophils % 2.2 Basophils % 0.5 Nucleated Red Blood Cells % 0.0 Neutrophils # 6.8 Lymphocytes # 0.8 Monocytes # 0.7 Eosinophils # 0.2 Basophils # 0.0 Nucleated Red Blood Cells # 0.0 Sodium Level 136 Potassium Level 4.4 Chloride Level 105 Carbon Dioxide Level 22 Anion Gap 13 Blood Urea Nitrogen 54 H Creatinine 5.66 H Glucose Level 90 Calcium Level 8.5 Magnesium Level 2.1 Medications Medications Current Medications Ondansetron HCl (Zofran Inj) 4 mg Q6H PRN IV NAUSEA AND/OR VOMITING Last administered on 12/11/16 06:45; Admin Dose 4 MG; Start 12/10/16 at 18:00 Acetaminophen (Tylenol Tab) 650 mg Q6H PRN PO PAIN LEVEL 1-3 OR FEVER; Start at 18:00 Morphine Sulfate (morphine) 2 mg Q4H PRN IV PAIN LEVEL 7-10 Last administered on 12/15/16 05:31; Admin Dose 2 MG; Start 12/10/16 at 18:00 Magnesium Hydroxide (Milk Of Mag) 30 ml DAILY PRN PO CONSTIPATION; Start at 18:00 Bisacodyl (Dulcolax) 5 mg DAILY PRN PO CONSTIPATION; Start 12/10/16 at 18:00 Famotidine (Pepcid) 20 mg DAILY PO Last administered on 12/21/16 09:27; Admin Dose 20 MG; Start 12/11/16 at 09:00 Hydralazine HCl (Apresoline) 10 mg Q6H PRN IV SBP>160 Last administered on 12/20 04:26; Admin Dose 10 MG; Start 12/10/16 at 18:00 Atorvastatin Calcium (Lipitor) 10 mg DAILY@21 PO Last administered on 21:16; Admin Dose 10 MG; Start 12/10/16 at 21:00 Lorazepam (Ativan) 1 mg Q2H PRN IV Anxiety Last administered on 12/15/16 21:20 ; Admin Dose 1 MG; Start 12/10/16 at 18:30 Heparin Sodium (Porcine) (Heparin (5000 Units/0.5 ml)) 5,000 unit BID SC Last administered on 12/21/16 09:30; Admin Dose 5,000 UNIT; Start 12/11/16 at 21:00 Chlordiazepoxide (Librium) 50 mg BID PO Last administered on 12/21/16 09:27; Admin Dose 50 MG; Start 12/11/16 at 21:00 Miscellaneous Information (* Miscellaneous Pharmacy Order) pharmacy to dose, g... ONCE XX ; Start 12/12/16 at 02:30 Acetaminophen/ Hydrocodone Bitart 2 tab 2 tab Q4H PRN PO pain Last administered on 12/21/16 09:28; Admin Dose 1 TAB; Start 12/13/16 at 10:30 Amiodarone HCl 900 mg/Dextrose 500 ml @ 0 mls/hr Q0M IV Last administered on 13:49; Admin Dose 33.4 MLS/HR; Start 12/14/16 at 13:00 Diltiazem HCl (Cardizem-D5W 125 Mg/125 ml Drip) 125 ml @ 5 mls/hr TITRATE IV ; Start 12/16/16 at 22:45 Megestrol Acetate (Megace Susp) 400 mg BID PO Last administered on 12/21/16 10 :18; Admin Dose 400 MG; Start 12/17/16 at 13:00 Amiodarone HCl (Cordarone) 400 mg BID PO Last administered on 12/21/16 09:27; Admin Dose 400 MG; Start 12/17/16 at 21:00 Metoprolol Tartrate 50 mg 50 mg BID PO Last administered on 12/21/16 09:27; Admin Dose 50 MG; Start 12/17/16 at 21:00 Dextrose/Sodium Chloride (D5-1/2ns) 1,000 ml @ 50 mls/hr Q20H IV Last administered on 12/20/16 18:38; Admin Dose 50 MLS/HR; Start 12/18/16 at 11:30 Mirtazapine 15 mg 15 mg HS PO Last administered on 12/20/16 21:16; Admin Dose 15 MG; Start 12/18/16 at 21:00 Meropenem 100 ml @ 200 mls/hr Q12 IVPB Last administered on 12/21/16 09:24; Admin Dose 200 MLS/HR; Start 12/19/16 at 21:00 Linezolid (Zyvox 600mg/D5W (Pmx)) 300 ml @ 300 mls/hr Q12 IVPB Last administered on 12/21/16 10:18; Admin Dose 300 MLS/HR; Start 12/19/16 at 21:00 Polyethylene Glycol (Miralax) 17 gm BID PO ; Start 12/21/16 at 21:00 MADELYN MIRANDA MD December 21, 2016 12:46
--- NOTE | 2016-12-21 13:28 | CONS ---
Date/Time of Note Date/Time of Note DATE: 12/21/16 TIME: 13:25 Assessment/Plan Assessment/Plan Additional Assessment/Plan Acute kidney injury Preserved ejection fraction Status post fall Sepsis with bacteremia Paroxysmal atrial fibrillation, currently sinus rhythm History of hypertension Recent UTI Alcohol abuse -Patient has remained in sinus rhythm over the past 24 hours. Continue beta- anjelica and amiodarone. If remains in sinus rhythm, would titrate down dose of amiodarone. Blood pressure trend slightly increasing, if remains elevated, would titrate antihypertensive medication regimen. Fluid management via hemodialysis as per our nephrology colleagues Consultation Date/Type/Reason Admit Date/Time December 10, 2016 at 16:57 Type of Consultation: cv Referring Provider: CLOVIS SHORE 24 HR Interval Summary Free Text/Dictation Denies palpitations, chest pain, shortness of breath Exam/Review of Systems Vital Signs Vitals Vital Signs Date Time Temp Pulse Resp B/P Pulse Ox O2 Delivery O2 Flow Rate FiO2 12/21/16 12:01 83 12/21/16 11:46 97.5 19 167/79 94 12/20/16 19:59 Nasal Cannula 2.0 Intake and Output 12/20/16 12/20/16 12/21/16 15:00 23:00 07:00 Intake Total 1200 ml 950 ml 450 ml Output Total 800 ml 1200 ml Balance 1200 ml 150 ml -750 ml Exam Eating lunch, no apparent distress Constitutional: alert, oriented Head: normocephalic Respiratory: other (Coarse breath sounds bilaterally, no wheezing) Cardiovascular: other (S1-S2 heard), regular rate and rhythm Gastrointestinal: bowel sounds, non-tender, other (No guarding), soft Extremities: edema (Trace) Results Result Diagram: 12/21/16 0720 12/21/16 0720 Results 24 hrs Laboratory Tests Test 12/21/16 07:20 White Blood Count 8.6 Red Blood Count 2.94 L Hemoglobin 9.0 L Hematocrit 26.9 L Mean Corpuscular Volume 91.5 Mean Corpuscular Hemoglobin 30.6 Mean Corpuscular Hemoglobin Concent 33.5 Red Cell Distribution Width 15.4 H Platelet Count 342 Mean Platelet Volume 11.0 H Neutrophils % 79.0 H Lymphocytes % 9.4 L Monocytes % 8.1 Eosinophils % 2.2 Basophils % 0.5 Nucleated Red Blood Cells % 0.0 Neutrophils # 6.8 Lymphocytes # 0.8 Monocytes # 0.7 Eosinophils # 0.2 Basophils # 0.0 Nucleated Red Blood Cells # 0.0 Sodium Level 136 Potassium Level 4.4 Chloride Level 105 Carbon Dioxide Level 22 Anion Gap 13 Blood Urea Nitrogen 54 H Creatinine 5.66 H Glucose Level 90 Calcium Level 8.5 Magnesium Level 2.1 Medications Medications Current Medications Ondansetron HCl (Zofran Inj) 4 mg Q6H PRN IV NAUSEA AND/OR VOMITING Last administered on 12/11/16 06:45; Admin Dose 4 MG; Start 12/10/16 at 18:00 Acetaminophen (Tylenol Tab) 650 mg Q6H PRN PO PAIN LEVEL 1-3 OR FEVER; Start at 18:00 Morphine Sulfate (morphine) 2 mg Q4H PRN IV PAIN LEVEL 7-10 Last administered on 12/15/16 05:31; Admin Dose 2 MG; Start 12/10/16 at 18:00 Magnesium Hydroxide (Milk Of Mag) 30 ml DAILY PRN PO CONSTIPATION; Start at 18:00 Bisacodyl (Dulcolax) 5 mg DAILY PRN PO CONSTIPATION; Start 12/10/16 at 18:00 Famotidine (Pepcid) 20 mg DAILY PO Last administered on 12/21/16 09:27; Admin Dose 20 MG; Start 12/11/16 at 09:00 Hydralazine HCl (Apresoline) 10 mg Q6H PRN IV SBP>160 Last administered on 12/20 04:26; Admin Dose 10 MG; Start 12/10/16 at 18:00 Atorvastatin Calcium (Lipitor) 10 mg DAILY@21 PO Last administered on 21:16; Admin Dose 10 MG; Start 12/10/16 at 21:00 Lorazepam (Ativan) 1 mg Q2H PRN IV Anxiety Last administered on 12/15/16 21:20 ; Admin Dose 1 MG; Start 12/10/16 at 18:30 Heparin Sodium (Porcine) (Heparin (5000 Units/0.5 ml)) 5,000 unit BID SC Last administered on 12/21/16 09:30; Admin Dose 5,000 UNIT; Start 12/11/16 at 21:00 Chlordiazepoxide (Librium) 50 mg BID PO Last administered on 12/21/16 09:27; Admin Dose 50 MG; Start 12/11/16 at 21:00 Miscellaneous Information (* Miscellaneous Pharmacy Order) pharmacy to dose, g... ONCE XX ; Start 12/12/16 at 02:30 Acetaminophen/ Hydrocodone Bitart 2 tab 2 tab Q4H PRN PO pain Last administered on 12/21/16 09:28; Admin Dose 1 TAB; Start 12/13/16 at 10:30 Amiodarone HCl 900 mg/Dextrose 500 ml @ 0 mls/hr Q0M IV Last administered on 13:49; Admin Dose 33.4 MLS/HR; Start 12/14/16 at 13:00 Diltiazem HCl (Cardizem-D5W 125 Mg/125 ml Drip) 125 ml @ 5 mls/hr TITRATE IV ; Start 12/16/16 at 22:45 Megestrol Acetate (Megace Susp) 400 mg BID PO Last administered on 12/21/16 10 :18; Admin Dose 400 MG; Start 12/17/16 at 13:00 Amiodarone HCl (Cordarone) 400 mg BID PO Last administered on 12/21/16 09:27; Admin Dose 400 MG; Start 12/17/16 at 21:00 Metoprolol Tartrate 50 mg 50 mg BID PO Last administered on 12/21/16 09:27; Admin Dose 50 MG; Start 12/17/16 at 21:00 Dextrose/Sodium Chloride (D5-1/2ns) 1,000 ml @ 50 mls/hr Q20H IV Last administered on 12/20/16 18:38; Admin Dose 50 MLS/HR; Start 12/18/16 at 11:30 Mirtazapine 15 mg 15 mg HS PO Last administered on 12/20/16 21:16; Admin Dose 15 MG; Start 12/18/16 at 21:00 Meropenem 100 ml @ 200 mls/hr Q12 IVPB Last administered on 12/21/16 09:24; Admin Dose 200 MLS/HR; Start 12/19/16 at 21:00 Linezolid (Zyvox 600mg/D5W (Pmx)) 300 ml @ 300 mls/hr Q12 IVPB Last administered on 5/16/17at 10:18; Admin Dose 300 MLS/HR; Start 12/19/16 at 21:00 Polyethylene Glycol (Miralax) 17 gm BID PO ; Start 12/21/16 at 21:00 Zeyad Kelly DO December 21, 2016 13:28
[2016-12-21] MEDS: hydrALAzine 20 MG INJ IV PRN (15:29)
[2016-12-21] MEDS ORDERED: GLUCAGON 1 MG INJ IM PRN (17:30)
[2016-12-21] MEDS ORDERED: GLUCOSE GEL 15 GRAM TUBE BUCCAL PRN (17:30)
[2016-12-21] MEDS ORDERED: DEXTROSE 50% 50 ML SYRINGE IV PRN ×2 (17:30)
[2016-12-21] MEDS ORDERED: GLUCOSE GEL 15 GRAM TUBE PO PRN ×2 (17:30)
[2016-12-21] MEDS: DEXTROSE 5%-0.45% NACL 1,000 ML IV SCH (17:55)
--- NOTE | 2016-12-21 19:45 | PN ---
DATE: 12/21/2016 SUBJECTIVE: No acute changes. Patient is awake, confused, lethargic, looks comfortable. Code stat us was changed to DNR. LABORATORIES: WBC today 8.6, neutrophils 79, BUN 54, creatinine 5.66. INDWELLINGS: Right IJ Norris, Mccormack catheter. ANTIMICROBIALS: The patient is on: 1. Zyvox. 2. Merrem. PHYSICAL EXAMINATION: GENERAL: This is a fragile, chronically ill-appearing, elderly man who is in no distress. HEENT: Head atraumatic, normocephalic. Sclerae anicteric. Buccal mucosa dry. NECK: Supple, trachea midline. CHEST: Rise symmetrical. Breath sounds with bilateral scattered crackles. HEART: S1, S2. ABDOMEN: Soft. Bowel tones present. EXTREMITIES: With trace edema. ASSESSMENT: 1. Sepsis. 2. Acute encephalopathy, multifactorial etiology. 3. Acute kidney failure, possibly chronic kidney disease, started on hemodialysis, currently on hol d. 4. Proteus mirabilis urinary tract infection with bacteremia. Repeat blood cultures negative. 5. Healthcare-associated pneumonia, possibly aspiration. 6. Atrial fibrillation. 7. Back pain with evidence of degenerative spine disease per MRI, low suspicion for an infectious p rocess. PLAN: The patient is covered with broad spectrum antibiotics. Repeat blood cultures negative. He is DNR status now. We will continue him on current antimicrobials. Continue anti-aspiration measur es. Follow nephrology recommendations. Dictated By: CHERRIE JAUREGUI ELECTRICIAN REFINERY for AYAD RUIZ/RIKA Conf#: [id number] DID#: [id number]
[2016-12-21] MEDS: MIRTAZAPINE 15 MG TAB PO SCH (20:45)
[2016-12-21] MEDS: POLYETHYLENE GLYCOL 17 GM PACKET PO SCH (20:47)
[2016-12-21] MEDS: ATORVASTATIN 10 MG TAB PO SCH (20:47)
[2016-12-21] MEDS: INSULIN ASPART [NOVOLOG] 3 ML PEN SC SCH (20:55)
[2016-12-22] VITALS (14 sets, daily range): BP systolic 133–173; BP diastolic 63–87; PULSE 71–106; RESP 16–22
[2016-12-22] MEDS: INSULIN ASPART [NOVOLOG] 3 ML PEN SC SCH ×6 (01:00→21:00)
[2016-12-22] MEDS: ONDANSETRON 4 MG INJ IV PRN (05:59)
[2016-12-22] MEDS: DEXTROSE 5%-0.45% NACL 1,000 ML IV SCH (05:59)
[2016-12-22 07:28] LABS: ADD SCAN DIFF NO
[2016-12-22 07:39] LABS: BASOPHIL # 0.1 10^3/ul (0.0-0.1); BASOPHILS % 0.8 % (0.0-2.0); EOSINOPHILS # 0.1 10^3/ul (0.0-0.5); EOSINOPHILS % 1.9 % (0.0-7.0); HEMATOCRIT 26.3 % (42.0-52.0); HEMOGLOBIN 8.8 g/dl (14.0-18.0); LYMPHOCYTES # 0.8 10^3/ul (0.8-2.9); LYMPHOCYTES % 11.1 % (15.0-51.0); MEAN CORPUSCULAR HEMOGLOBIN 30.6 pg (29.0-33.0); MEAN CORPUSCULAR HGB CONC 33.5 g/dl (32.0-37.0); MEAN CORPUSCULAR VOLUME 91.3 fl (82.0-101.0); MEAN PLATELET VOLUME 10.7 fl (7.4-10.4); MONOCYTE # 0.5 10^3/ul (0.3-0.9); MONOCYTES % 6.6 % (0.0-11.0); NEUTROPHIL # 5.7 10^3/ul (1.6-7.5); NEUTROPHILS % 78.5 % (39.0-77.0); PLATELET COUNT 370 10^3/UL (140-415); RED BLOOD COUNT 2.88 10^6/ul (4.70-6.10); RED CELL DISTRIBUTION WIDTH 15.1 % (11.5-14.5); WHITE BLOOD COUNT 7.3 10^3/ul (4.8-10.8)
[2016-12-22 07:56] LABS: CREATININE 5.84 mg/dl (0.61-1.24); POTASSIUM 4.5 mmol/L (3.5-5.1)
[2016-12-22] MEDS: CHLORDIAZEPOXIDE 25 MG CAP PO SCH ×2 (08:32→22:17)
[2016-12-22] MEDS: AMIODARONE 200 MG TAB PO SCH ×2 (08:32→22:18)
[2016-12-22] MEDS: METOPROLOL 50 MG TAB PO SCH ×2 (08:34→22:18)
[2016-12-22] MEDS: FAMOTIDINE 20 MG TAB PO SCH (08:34)
[2016-12-22] MEDS: MEGESTROL (40 MG/ML) 10ML CUP PO SCH ×2 (08:34→22:19)
[2016-12-22] MEDS: POLYETHYLENE GLYCOL 17 GM PACKET PO SCH ×2 (08:34→22:19)
[2016-12-22] MEDS: HEPARIN 5,000 UNIT/0.5 ML VIAL SC SCH ×2 (08:41→22:26)
[2016-12-22] MEDS: LINEZOLID 600 MG/D5W (PMX) 300 ML IVPB SCH ×2 (08:45→21:23)
[2016-12-22] MEDS: MEROPENEM 500 MG/100 ML (PMX) 100 ML IVPB SCH ×2 (08:45→21:23)
--- NOTE | 2016-12-22 10:53 | CONS ---
Date/Time of Note Date/Time of Note DATE: 12/22/16 TIME: 10:51 Assessment/Plan Assessment/Plan Additional Assessment/Plan Acute kidney injury Preserved ejection fraction Status post fall Sepsis with bacteremia Paroxysmal atrial fibrillation, currently sinus rhythm History of hypertension Recent UTI Alcohol abuse -Patient remains in sinus rhythm on telemetry. Continue beta-anjelica and amiodarone. Lower extremity edema is increasing. Undergoing nephrology evaluation for as needed hemodialysis. Consultation Date/Type/Reason Admit Date/Time December 10, 2016 at 16:57 Type of Consultation: cv Referring Provider: CLOVIS SHORE 24 HR Interval Summary Free Text/Dictation Denies chest pain, shortness of breath, palpitations. Exam/Review of Systems Vital Signs Vitals Vital Signs Date Time Temp Pulse Resp B/P Pulse Ox O2 Delivery O2 Flow Rate FiO2 12/22/16 08:06 76 12/22/16 07:12 97.9 16 155/70 96 12/22/16 01:58 Room Air 12/21/16 20:00 2.0 Intake and Output 12/21/16 12/21/16 12/22/16 15:00 23:00 07:00 Intake Total 50 ml 50 ml Output Total 800 ml 900 ml Balance -750 ml -850 ml Exam No apparent distress, following commands Constitutional: alert, oriented Head: normocephalic Neck: supple Respiratory: other (Coarse breath sounds bilaterally, no wheezing) Cardiovascular: other (S1-S2 heard), regular rate and rhythm Gastrointestinal: bowel sounds, non-tender, soft Extremities: edema Results Result Diagram: 12/22/16 0632 12/22/16 0630 Results 24 hrs Laboratory Tests Test 12/21/16 18:01 12/21/16 20:54 12/22/16 01:24 12/22/16 05:54 Bedside Glucose 108 90 96 98 Test 12/22/16 06:30 12/22/16 06:32 12/22/16 08:37 Sodium Level 135 Potassium Level 4.5 Chloride Level 108 Carbon Dioxide Level 22 Anion Gap 10 Blood Urea Nitrogen 51 H Creatinine 5.84 H Glucose Level 101 Calcium Level 9.0 Magnesium Level 2.2 White Blood Count 7.3 Red Blood Count 2.88 L Hemoglobin 8.8 L Hematocrit 26.3 L Mean Corpuscular Volume 91.3 Mean Corpuscular Hemoglobin 30.6 Mean Corpuscular Hemoglobin Concent 33.5 Red Cell Distribution Width 15.1 H Platelet Count 370 Mean Platelet Volume 10.7 H Neutrophils % 78.5 H Lymphocytes % 11.1 L Monocytes % 6.6 Eosinophils % 1.9 Basophils % 0.8 Nucleated Red Blood Cells % 0.0 Neutrophils # 5.7 Lymphocytes # 0.8 Monocytes # 0.5 Eosinophils # 0.1 Basophils # 0.1 Nucleated Red Blood Cells # 0.0 Bedside Glucose 92 Medications Medications Current Medications Ondansetron HCl (Zofran Inj) 4 mg Q6H PRN IV NAUSEA AND/OR VOMITING Last administered on 12/22/16 05:59; Admin Dose 4 MG; Start 12/10/16 at 18:00 Acetaminophen (Tylenol Tab) 650 mg Q6H PRN PO PAIN LEVEL 1-3 OR FEVER; Start at 18:00 Morphine Sulfate (morphine) 2 mg Q4H PRN IV PAIN LEVEL 7-10 Last administered on 12/15/16 05:31; Admin Dose 2 MG; Start 12/10/16 at 18:00 Magnesium Hydroxide (Milk Of Mag) 30 ml DAILY PRN PO CONSTIPATION; Start at 18:00 Bisacodyl (Dulcolax) 5 mg DAILY PRN PO CONSTIPATION; Start 12/10/16 at 18:00 Famotidine (Pepcid) 20 mg DAILY PO Last administered on 12/22/16 08:34; Admin Dose 20 MG; Start 12/11/16 at 09:00 Hydralazine HCl (Apresoline) 10 mg Q6H PRN IV SBP>160 Last administered on 12/21 15:29; Admin Dose 10 MG; Start 12/10/16 at 18:00 Atorvastatin Calcium (Lipitor) 10 mg DAILY@21 PO Last administered on 20:47; Admin Dose 10 MG; Start 12/10/16 at 21:00 Lorazepam (Ativan) 1 mg Q2H PRN IV Anxiety Last administered on 12/15/16 21:20 ; Admin Dose 1 MG; Start 12/10/16 at 18:30 Heparin Sodium (Porcine) (Heparin (5000 Units/0.5 ml)) 5,000 unit BID SC Last administered on 12/22/16 08:41; Admin Dose 5,000 UNIT; Start 12/11/16 at 21:00 Chlordiazepoxide (Librium) 50 mg BID PO Last administered on 12/22/16 08:32; Admin Dose 50 MG; Start 12/11/16 at 21:00 Miscellaneous Information (* Miscellaneous Pharmacy Order) pharmacy to dose, g... ONCE XX ; Start 12/12/16 at 02:30 Acetaminophen/ Hydrocodone Bitart 2 tab 2 tab Q4H PRN PO pain Last administered on 12/21/16 09:28; Admin Dose 1 TAB; Start 12/13/16 at 10:30 Amiodarone HCl 900 mg/Dextrose 500 ml @ 0 mls/hr Q0M IV Last administered on 13:49; Admin Dose 33.4 MLS/HR; Start 12/14/16 at 13:00 Diltiazem HCl (Cardizem-D5W 125 Mg/125 ml Drip) 125 ml @ 5 mls/hr TITRATE IV ; Start 12/16/16 at 22:45 Megestrol Acetate (Megace Susp) 400 mg BID PO Last administered on 12/22/16 08 :34; Admin Dose 400 MG; Start 12/17/16 at 13:00 Amiodarone HCl (Cordarone) 400 mg BID PO Last administered on 12/22/16 08:32; Admin Dose 400 MG; Start 12/17/16 at 21:00 Metoprolol Tartrate 50 mg 50 mg BID PO Last administered on 12/22/16 08:34; Admin Dose 50 MG; Start 12/17/16 at 21:00 Dextrose/Sodium Chloride (D5-1/2ns) 1,000 ml @ 50 mls/hr Q20H IV Last administered on 12/22/16 05:59; Admin Dose 50 MLS/HR; Start 12/18/16 at 11:30 Mirtazapine 15 mg 15 mg HS PO Last administered on 12/21/16 20:45; Admin Dose 15 MG; Start 12/18/16 at 21:00 Meropenem 100 ml @ 200 mls/hr Q12 IVPB Last administered on 12/22/16 08:45; Admin Dose 200 MLS/HR; Start 12/19/16 at 21:00 Linezolid (Zyvox 600mg/D5W (Pmx)) 300 ml @ 300 mls/hr Q12 IVPB Last administered on 12/22/16 08:45; Admin Dose 300 MLS/HR; Start 12/19/16 at 21:00 Polyethylene Glycol (Miralax) 17 gm BID PO Last administered on 12/22/16 08:34 ; Admin Dose 17 GM; Start 12/21/16 at 21:00 Insulin Aspart (Novolog Insulin Pen) NOVOLOG *MILD* ALGORI... Q4 SC ; Start at 21:00 Miscellaneous Information 1 ea NOTE XX ; Start 12/21/16 at 17:30 Glucose (Glutose) 15 gm Q15M PRN PO DECREASED GLUCOSE; Start 12/21/16 at 17:30 Glucose (Glutose) 22.5 gm Q15M PRN PO DECREASED GLUCOSE; Start 12/21/16 at 17: 30 Dextrose (D50w Syringe) 25 ml Q15M PRN IV DECREASED GLUCOSE; Start 12/21/16 at 17:30 Dextrose (D50w Syringe) 50 ml Q15M PRN IV DECREASED GLUCOSE; Start 12/21/16 at 17:30 Glucagon (Glucagen) 1 mg Q15M PRN IM DECREASED GLUCOSE; Start 12/21/16 at 17:30 Glucose (Glutose) 15 gm Q15M PRN BUCCAL DECREASED GLUCOSE; Start 12/21/16 at 17 :30 Zeyad Kelly DO December 22, 2016 10:53
--- NOTE | 2016-12-22 13:01 | PN ---
Date/Time of Note Date/Time of Note DATE: 12/22/16 TIME: 13:00 Assessment/Plan VTE Prophylaxis VTE Prophylaxis Intervention: heparin Lines/Catheters IV [facility] Type (from [facility] Peripheral IV Urinary Cath still in place: Yes Reason Cath still needed: other (indicate) Assessment/Plan Chief Complaint/Hosp Course 1. Acute kidney injury. Etiology unclear. Continue IV hydration. Nephrology following. Avoid nephrotoxic medications. The patient was temporarily started on hemodialysis. 2. Status post fall. Brain CT negative for any acute intracranial findings. Physical therapy evaluation. 3. Essential hypertension. Continue routine antihypertensives and as needed antihypertensives for any systolic blood pressure readings greater than 160 mercury. 4. Gout. Uric acid levels within normal limits. 5. Sepsis with underlying urinary tract infection and gram-negative bacteremia. The patient on antibiotics as per Infectious Disease. No evidence of septic shock. 6. Hyperlipidemia. Continue statins. Fasting lipid panel suboptimal. 7. Paroxysmal atrial fibrillation. The patient will be continued on beta blockers and amiodarone.. Currently in sinus rhythm. Cardiology following. 8. Alcohol abuse. Continue daily banana bag. Monitor for any alcohol withdrawal delirium. 9. Dysphagia. Continue aspiration precautions. Diet as per speech therapy. 10. Acute encephalopathy. Probably metabolic in origin. Monitor. Brain CT scan negative for any acute findings. 11. Fluids, electrolytes, and nutrition. Low-cholesterol diet. 12. DVT prophylaxis. Subcutaneous heparin. 13. Gastrointestinal prophylaxis. Histamine 2 receptor blockers. 14. Plan. Continue antibiotics as per infectious diseases. Monitor renal function closely. Await further recommendations from nephrology. Continue physical therapy. Case discussed with Dr. Carbajal. Updated the patient's sister about the patient's condition. Problems: Subjective 24 Hr Interval Summary Free Text/Dictation No changes in status. Exam/Review of Systems Vital Signs Vitals Vital Signs Date Time Temp Pulse Resp B/P Pulse Ox O2 Delivery O2 Flow Rate FiO2 12/22/16 12:00 76 12/22/16 11:16 97.8 22 155/87 96 12/22/16 01:58 Room Air 12/21/16 20:00 2.0 Intake and Output 12/21/16 12/21/16 12/22/16 15:00 23:00 07:00 Intake Total 50 ml 50 ml Output Total 800 ml 900 ml Balance -750 ml -850 ml Exam GENERAL: This is a well-built, well-nourished male patient lying in bed in no apparent distress. HEENT: Head normocephalic and atraumatic. Eyes: Anicteric sclerae. Conjunctivae clear. ENT: Nasal septum is midline. Oral mucosa is dry. NECK: Supple. No JVD noticed. RESPIRATORY: Bilaterally clear to auscultation. No adventitious breath sounds. No use of accessory muscles of respiration. CARDIAC: Regular rate and rhythm. S1-S2 heard. ABDOMEN: Soft, nontender, nondistended. Bowel sounds positive in all 4 quadrants. GENITOURINARY: Deferred. EXTREMITIES: No cyanosis, no clubbing, no edema. Peripheral pulses are palpable. NEUROLOGIC: The patient is awake and alert today. Results Result Diagram: 12/22/16 0632 12/22/16 0630 Results 24 hrs Laboratory Tests Test 12/21/16 18:01 12/21/16 20:54 12/22/16 01:24 12/22/16 05:54 Bedside Glucose 108 90 96 98 Test 12/22/16 06:30 12/22/16 06:32 12/22/16 08:37 12/22/16 12:03 Sodium Level 135 Potassium Level 4.5 Chloride Level 108 Carbon Dioxide Level 22 Anion Gap 10 Blood Urea Nitrogen 51 H Creatinine 5.84 H Glucose Level 101 Calcium Level 9.0 Magnesium Level 2.2 White Blood Count 7.3 Red Blood Count 2.88 L Hemoglobin 8.8 L Hematocrit 26.3 L Mean Corpuscular Volume 91.3 Mean Corpuscular Hemoglobin 30.6 Mean Corpuscular Hemoglobin Concent 33.5 Red Cell Distribution Width 15.1 H Platelet Count 370 Mean Platelet Volume 10.7 H Neutrophils % 78.5 H Lymphocytes % 11.1 L Monocytes % 6.6 Eosinophils % 1.9 Basophils % 0.8 Nucleated Red Blood Cells % 0.0 Neutrophils # 5.7 Lymphocytes # 0.8 Monocytes # 0.5 Eosinophils # 0.1 Basophils # 0.1 Nucleated Red Blood Cells # 0.0 Bedside Glucose 92 95 Medications Medications Current Medications Ondansetron HCl (Zofran Inj) 4 mg Q6H PRN IV NAUSEA AND/OR VOMITING Last administered on 12/22/16t 05:59; Admin Dose 4 MG; Start 12/10/16 at 18:00 Acetaminophen (Tylenol Tab) 650 mg Q6H PRN PO PAIN LEVEL 1-3 OR FEVER; Start at 18:00 Morphine Sulfate (morphine) 2 mg Q4H PRN IV PAIN LEVEL 7-10 Last administered on 12/15/16 05:31; Admin Dose 2 MG; Start 12/10/16 at 18:00 Magnesium Hydroxide (Milk Of Mag) 30 ml DAILY PRN PO CONSTIPATION; Start at 18:00 Bisacodyl (Dulcolax) 5 mg DAILY PRN PO CONSTIPATION; Start 12/10/16 at 18:00 Famotidine (Pepcid) 20 mg DAILY PO Last administered on 12/22/16 08:34; Admin Dose 20 MG; Start 12/11/16 at 09:00 Hydralazine HCl (Apresoline) 10 mg Q6H PRN IV SBP>160 Last administered on 12/21 15:29; Admin Dose 10 MG; Start 12/10/16 at 18:00 Atorvastatin Calcium (Lipitor) 10 mg DAILY@21 PO Last administered on 20:47; Admin Dose 10 MG; Start 12/10/16 at 21:00 Lorazepam (Ativan) 1 mg Q2H PRN IV Anxiety Last administered on 12/15/16 21:20 ; Admin Dose 1 MG; Start 12/10/16 at 18:30 Heparin Sodium (Porcine) (Heparin (5000 Units/0.5 ml)) 5,000 unit BID SC Last administered on 12/22/16 08:41; Admin Dose 5,000 UNIT; Start 12/11/16 at 21:00 Chlordiazepoxide (Librium) 50 mg BID PO Last administered on 12/22/16 08:32; Admin Dose 50 MG; Start 12/11/16 at 21:00 Miscellaneous Information (* Miscellaneous Pharmacy Order) pharmacy to dose, g... ONCE XX ; Start 12/12/16 at 02:30 Acetaminophen/ Hydrocodone Bitart 2 tab 2 tab Q4H PRN PO pain Last administered on 12/21/16 09:28; Admin Dose 1 TAB; Start 12/13/16 at 10:30 Amiodarone HCl 900 mg/Dextrose 500 ml @ 0 mls/hr Q0M IV Last administered on 13:49; Admin Dose 33.4 MLS/HR; Start 12/14/16 at 13:00 Diltiazem HCl (Cardizem-D5W 125 Mg/125 ml Drip) 125 ml @ 5 mls/hr TITRATE IV ; Start 12/16/16 at 22:45 Megestrol Acetate (Megace Susp) 400 mg BID PO Last administered on 12/22/16 08 :34; Admin Dose 400 MG; Start 12/17/16 at 13:00 Amiodarone HCl (Cordarone) 400 mg BID PO Last administered on 12/22/16 08:32; Admin Dose 400 MG; Start 12/17/16 at 21:00 Metoprolol Tartrate 50 mg 50 mg BID PO Last administered on 12/22/16 08:34; Admin Dose 50 MG; Start 12/17/16 at 21:00 Dextrose/Sodium Chloride (D5-1/2ns) 1,000 ml @ 50 mls/hr Q20H IV Last administered on 12/22/16 05:59; Admin Dose 50 MLS/HR; Start 12/18/16 at 11:30 Mirtazapine 15 mg 15 mg HS PO Last administered on 12/21/16 20:45; Admin Dose 15 MG; Start 12/18/16 at 21:00 Meropenem 100 ml @ 200 mls/hr Q12 IVPB Last administered on 12/22/16 08:45; Admin Dose 200 MLS/HR; Start 12/19/16 at 21:00 Linezolid (Zyvox 600mg/D5W (Pmx)) 300 ml @ 300 mls/hr Q12 IVPB Last administered on 12/22/16 08:45; Admin Dose 300 MLS/HR; Start 12/19/16 at 21:00 Polyethylene Glycol (Miralax) 17 gm BID PO Last administered on 12/22/16 08:34 ; Admin Dose 17 GM; Start 12/21/16 at 21:00 Insulin Aspart (Novolog Insulin Pen) NOVOLOG *MILD* ALGORI... Q4 SC ; Start at 21:00 Miscellaneous Information 1 ea NOTE XX ; Start 12/21/16 at 17:30 Glucose (Glutose) 15 gm Q15M PRN PO DECREASED GLUCOSE; Start 12/21/16 at 17:30 Glucose (Glutose) 22.5 gm Q15M PRN PO DECREASED GLUCOSE; Start 12/21/16 at 17: 30 Dextrose (D50w Syringe) 25 ml Q15M PRN IV DECREASED GLUCOSE; Start 12/21/16 at 17:30 Dextrose (D50w Syringe) 50 ml Q15M PRN IV DECREASED GLUCOSE; Start 12/21/16 at 17:30 Glucagon (Glucagen) 1 mg Q15M PRN IM DECREASED GLUCOSE; Start 12/21/16 at 17:30 Glucose (Glutose) 15 gm Q15M PRN BUCCAL DECREASED GLUCOSE; Start 12/21/16 at 17 :30 JACK JENNINGS NP December 22, 2016 13:01
--- NOTE | 2016-12-22 14:18 | CONS ---
Date/Time of Note Date/Time of Note DATE: 12/22/16 TIME: 14:18 Assessment/Plan Assessment/Plan Chief Complaint/Hosp Course SUBJECTIVE: No events, lethargic, nad MICROBIOLOGY: Blood and urine culture growing Proteus mirabilis susceptible to all antibiotics. ANTIMICROBIALS: Zyvox, Merrem Indwelling: RIJ danielle 12/13 PHYSICAL EXAMINATION: GENERAL: Obese well-developed, middle-aged man who is alert, in no distress. HEENT: Head atraumatic, normocephalic. Sclerae anicteric. Buccal mucosa dry. NECK: Supple, trachea midline. CHEST: Rise symmetrical. Breath sounds clear. HEART: S1, S2. ABDOMEN: Soft, bowel tones present. EXTREMITIES: Without cyanosis. ASSESSMENT: 1. Sepsis with acute encephalopathy 2. Proteus mirabilis urinary tract infection with bacteremia. 3. Acute kidney failure, possible chronic kidney disease. 4. HCAP, poss aspiration. 5. Hypertension. 6. Atrial fibrillation. 7. History of alcohol abuse. 8. 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 PLAN: Remains unchanged, pending repeat spinal MRI with IV contrast, continue abx/aspiration precautions, f/u nephrology rec-s [facility] staff Problems: Consultation Date/Type/Reason Admit Date/Time December 10, 2016 at 16:57 Type of Consultation: ID Referring Provider: CLOVIS SHORE Exam/Review of Systems Vital Signs Vitals Vital Signs Date Time Temp Pulse Resp B/P Pulse Ox O2 Delivery O2 Flow Rate FiO2 12/22/16 12:00 76 12/22/16 11:16 97.8 22 155/87 96 12/22/16 01:58 Room Air 12/21/16 20:00 2.0 Intake and Output 12/21/16 12/21/16 12/22/16 15:00 23:00 07:00 Intake Total 50 ml 50 ml Output Total 800 ml 900 ml Balance -750 ml -850 ml Results Result Diagram: 12/22/16 0632 12/22/16 0630 Results 24 hrs Laboratory Tests Test 12/21/16 18:01 12/21/16 20:54 12/22/16 01:24 12/22/16 05:54 Bedside Glucose 108 90 96 98 Test 12/22/16 06:30 12/22/16 06:32 12/22/16 08:37 12/22/16 12:03 Sodium Level 135 Potassium Level 4.5 Chloride Level 108 Carbon Dioxide Level 22 Anion Gap 10 Blood Urea Nitrogen 51 H Creatinine 5.84 H Glucose Level 101 Calcium Level 9.0 Magnesium Level 2.2 White Blood Count 7.3 Red Blood Count 2.88 L Hemoglobin 8.8 L Hematocrit 26.3 L Mean Corpuscular Volume 91.3 Mean Corpuscular Hemoglobin 30.6 Mean Corpuscular Hemoglobin Concent 33.5 Red Cell Distribution Width 15.1 H Platelet Count 370 Mean Platelet Volume 10.7 H Neutrophils % 78.5 H Lymphocytes % 11.1 L Monocytes % 6.6 Eosinophils % 1.9 Basophils % 0.8 Nucleated Red Blood Cells % 0.0 Neutrophils # 5.7 Lymphocytes # 0.8 Monocytes # 0.5 Eosinophils # 0.1 Basophils # 0.1 Nucleated Red Blood Cells # 0.0 Bedside Glucose 92 95 Medications Medications Current Medications Ondansetron HCl (Zofran Inj) 4 mg Q6H PRN IV NAUSEA AND/OR VOMITING Last administered on 12/22/16 05:59; Admin Dose 4 MG; Start 12/10/16 at 18:00 Acetaminophen (Tylenol Tab) 650 mg Q6H PRN PO PAIN LEVEL 1-3 OR FEVER; Start at 18:00 Morphine Sulfate (morphine) 2 mg Q4H PRN IV PAIN LEVEL 7-10 Last administered on 12/15/16 05:31; Admin Dose 2 MG; Start 12/10/16 at 18:00 Magnesium Hydroxide (Milk Of Mag) 30 ml DAILY PRN PO CONSTIPATION; Start at 18:00 Bisacodyl (Dulcolax) 5 mg DAILY PRN PO CONSTIPATION; Start 12/10/16 at 18:00 Famotidine (Pepcid) 20 mg DAILY PO Last administered on 12/22/16 08:34; Admin Dose 20 MG; Start 12/11/16 at 09:00 Hydralazine HCl (Apresoline) 10 mg Q6H PRN IV SBP>160 Last administered on 12/21 15:29; Admin Dose 10 MG; Start 12/10/16 at 18:00 Atorvastatin Calcium (Lipitor) 10 mg DAILY@21 PO Last administered on 20:47; Admin Dose 10 MG; Start 12/10/16 at 21:00 Lorazepam (Ativan) 1 mg Q2H PRN IV Anxiety Last administered on 12/15/16 21:20 ; Admin Dose 1 MG; Start 12/10/16 at 18:30 Heparin Sodium (Porcine) (Heparin (5000 Units/0.5 ml)) 5,000 unit BID SC Last administered on 12/22/16 08:41; Admin Dose 5,000 UNIT; Start 12/11/16 at 21:00 Chlordiazepoxide (Librium) 50 mg BID PO Last administered on 12/22/16 08:32; Admin Dose 50 MG; Start 12/11/16 at 21:00 Miscellaneous Information (* Miscellaneous Pharmacy Order) pharmacy to dose, g... ONCE XX ; Start 12/12/16 at 02:30 Acetaminophen/ Hydrocodone Bitart 2 tab 2 tab Q4H PRN PO pain Last administered on 12/21/16 09:28; Admin Dose 1 TAB; Start 12/13/16 at 10:30 Amiodarone HCl 900 mg/Dextrose 500 ml @ 0 mls/hr Q0M IV Last administered on 13:49; Admin Dose 33.4 MLS/HR; Start 12/14/16 at 13:00 Diltiazem HCl (Cardizem-D5W 125 Mg/125 ml Drip) 125 ml @ 5 mls/hr TITRATE IV ; Start 12/16/16 at 22:45 Megestrol Acetate (Megace Susp) 400 mg BID PO Last administered on 12/22/16 08 :34; Admin Dose 400 MG; Start 12/17/16 at 13:00 Amiodarone HCl (Cordarone) 400 mg BID PO Last administered on 12/22/16 08:32; Admin Dose 400 MG; Start 12/17/16 at 21:00 Metoprolol Tartrate 50 mg 50 mg BID PO Last administered on 12/22/16 08:34; Admin Dose 50 MG; Start 12/17/16 at 21:00 Dextrose/Sodium Chloride (D5-1/2ns) 1,000 ml @ 50 mls/hr Q20H IV Last administered on 12/22/16 05:59; Admin Dose 50 MLS/HR; Start 12/18/16 at 11:30 Mirtazapine 15 mg 15 mg HS PO Last administered on 12/21/16 20:45; Admin Dose 15 MG; Start 12/18/16 at 21:00 Meropenem 100 ml @ 200 mls/hr Q12 IVPB Last administered on 12/22/16 08:45; Admin Dose 200 MLS/HR; Start 12/19/16 at 21:00 Linezolid (Zyvox 600mg/D5W (Pmx)) 300 ml @ 300 mls/hr Q12 IVPB Last administered on 12/22/16 08:45; Admin Dose 300 MLS/HR; Start 12/19/16 at 21:00 Polyethylene Glycol (Miralax) 17 gm BID PO Last administered on 12/22/16 08:34 ; Admin Dose 17 GM; Start 12/21/16 at 21:00 Insulin Aspart (Novolog Insulin Pen) NOVOLOG *MILD* ALGORI... Q4 SC ; Start at 21:00 Miscellaneous Information 1 ea NOTE XX ; Start 12/21/16 at 17:30 Glucose (Glutose) 15 gm Q15M PRN PO DECREASED GLUCOSE; Start 12/21/16 at 17:30 Glucose (Glutose) 22.5 gm Q15M PRN PO DECREASED GLUCOSE; Start 12/21/16 at 17: 30 Dextrose (D50w Syringe) 25 ml Q15M PRN IV DECREASED GLUCOSE; Start 12/21/16 at 17:30 Dextrose (D50w Syringe) 50 ml Q15M PRN IV DECREASED GLUCOSE; Start 12/21/16 at 17:30 Glucagon (Glucagen) 1 mg Q15M PRN IM DECREASED GLUCOSE; Start 12/21/16 at 17:30 Glucose (Glutose) 15 gm Q15M PRN BUCCAL DECREASED GLUCOSE; Start 12/21/16 at 17 :30 CHERRIE JAUREGUI NP December 22, 2016 14:18
--- NOTE | 2016-12-22 21:28 | CONS ---
Date/Time of Note Date/Time of Note DATE: 12/22/16 TIME: 21:26 Assessment/Plan Assessment/Plan Additional Assessment/Plan 1. Acute kidney injury, multifactorial, not improving despite being on IVF hydration, BUN/Cr persistently high ,.started on HD during this admission 2. Hyponatremia 3. Status post fall, which was a mechanical fall, but likely due to the hyponatremia. CT brain is negative. 4. Possible history of chronic kidney disease secondary to hypertensive nephrosclerosis. 5. History of hypertension. 6. History of gout. 7. History of hyperlipidemia. 8. Atrial fibrillation, rate controlled. 9. History of alcohol abuse. 10. Thrombocytopenia secondary to alcohol abuse. 11. sepsis due to UTI and bacteremia with Blood cx and urine Cx growing proteus PLAN: started on HD through right iJ danielle HD catheter , making good urine, but still has high BUn/Cr - will reasses for HD in AM Blood cx and Urine cx grew proteus - on IV abx - Follow up blood cx on 12/16/16 negative to date megace for apetite, remeron 15 mg pO QHS started on nector thick liquids will follow up Consultation Date/Type/Reason Admit Date/Time December 10, 2016 at 16:57 Type of Consultation: NEPHROLGOY Referring Provider: CLOVIS SHORE 24 HR Interval Summary Free Text/Dictation pt making good urine output but BUN/CR still high, pt lethargic today Exam/Review of Systems Vital Signs Vitals Vital Signs Date Time Temp Pulse Resp B/P Pulse Ox O2 Delivery O2 Flow Rate FiO2 12/22/16 20:09 80 12/22/16 19:53 97.9 18 156/67 95 12/22/16 01:58 Room Air 12/21/16 20:00 2.0 Intake and Output 12/21/16 12/21/16 12/22/16 14:59 22:59 06:59 Intake Total 50 ml 50 ml Output Total 800 ml 900 ml Balance -750 ml -850 ml Exam GENERAL: Obese well-developed, middle-aged man who is alert, in no distress. HEENT: Head atraumatic, normocephalic. Sclerae anicteric. Buccal mucosa dry. NECK: Supple, trachea midline. CHEST: Rise symmetrical. Breath sounds clear. HEART: S1, S2. ABDOMEN: Soft, bowel tones present. EXTREMITIES: Without cyanosis. Results Result Diagram: 12/22/16 0632 12/22/16 0630 Results 24 hrs Laboratory Tests Test 12/22/16 01:24 12/22/16 05:54 12/22/16 06:30 12/22/16 06:32 Bedside Glucose 96 98 Sodium Level 135 Potassium Level 4.5 Chloride Level 108 Carbon Dioxide Level 22 Anion Gap 10 Blood Urea Nitrogen 51 H Creatinine 5.84 H Glucose Level 101 Calcium Level 9.0 Magnesium Level 2.2 White Blood Count 7.3 Red Blood Count 2.88 L Hemoglobin 8.8 L Hematocrit 26.3 L Mean Corpuscular Volume 91.3 Mean Corpuscular Hemoglobin 30.6 Mean Corpuscular Hemoglobin Concent 33.5 Red Cell Distribution Width 15.1 H Platelet Count 370 Mean Platelet Volume 10.7 H Neutrophils % 78.5 H Lymphocytes % 11.1 L Monocytes % 6.6 Eosinophils % 1.9 Basophils % 0.8 Nucleated Red Blood Cells % 0.0 Neutrophils # 5.7 Lymphocytes # 0.8 Monocytes # 0.5 Eosinophils # 0.1 Basophils # 0.1 Nucleated Red Blood Cells # 0.0 Test 12/22/16 08:37 12/22/16 12:03 12/22/16 17:13 Bedside Glucose 92 95 100 Medications Medications Current Medications Ondansetron HCl (Zofran Inj) 4 mg Q6H PRN IV NAUSEA AND/OR VOMITING Last administered on 12/22/16 05:59; Admin Dose 4 MG; Start 12/10/16 at 18:00 Acetaminophen (Tylenol Tab) 650 mg Q6H PRN PO PAIN LEVEL 1-3 OR FEVER; Start at 18:00 Morphine Sulfate (morphine) 2 mg Q4H PRN IV PAIN LEVEL 7-10 Last administered on 12/15/16 05:31; Admin Dose 2 MG; Start 12/10/16 at 18:00 Magnesium Hydroxide (Milk Of Mag) 30 ml DAILY PRN PO CONSTIPATION; Start at 18:00 Bisacodyl (Dulcolax) 5 mg DAILY PRN PO CONSTIPATION; Start 12/10/16 at 18:00 Famotidine (Pepcid) 20 mg DAILY PO Last administered on 12/22/16 08:34; Admin Dose 20 MG; Start 12/11/16 at 09:00 Hydralazine HCl (Apresoline) 10 mg Q6H PRN IV SBP>160 Last administered on 12/21 15:29; Admin Dose 10 MG; Start 12/10/16 at 18:00 Atorvastatin Calcium (Lipitor) 10 mg DAILY@21 PO Last administered on 20:47; Admin Dose 10 MG; Start 12/10/16 at 21:00 Lorazepam (Ativan) 1 mg Q2H PRN IV Anxiety Last administered on 12/15/16 21:20 ; Admin Dose 1 MG; Start 12/10/16 at 18:30 Heparin Sodium (Porcine) (Heparin (5000 Units/0.5 ml)) 5,000 unit BID SC Last administered on 12/22/16 08:41; Admin Dose 5,000 UNIT; Start 12/11/16 at 21:00 Chlordiazepoxide (Librium) 50 mg BID PO Last administered on 12/22/16 08:32; Admin Dose 50 MG; Start 12/11/16 at 21:00 Miscellaneous Information (* Miscellaneous Pharmacy Order) pharmacy to dose, g... ONCE XX ; Start 12/12/16 at 02:30 Acetaminophen/ Hydrocodone Bitart 2 tab 2 tab Q4H PRN PO pain Last administered on 12/21/16 09:28; Admin Dose 1 TAB; Start 12/13/16 at 10:30 Amiodarone HCl 900 mg/Dextrose 500 ml @ 0 mls/hr Q0M IV Last administered on 13:49; Admin Dose 33.4 MLS/HR; Start 12/14/16 at 13:00 Diltiazem HCl (Cardizem-D5W 125 Mg/125 ml Drip) 125 ml @ 5 mls/hr TITRATE IV ; Start 12/16/16 at 22:45 Megestrol Acetate (Megace Susp) 400 mg BID PO Last administered on 12/22/16 08 :34; Admin Dose 400 MG; Start 12/17/16 at 13:00 Amiodarone HCl (Cordarone) 400 mg BID PO Last administered on 12/22/16 08:32; Admin Dose 400 MG; Start 12/17/16 at 21:00 Metoprolol Tartrate 50 mg 50 mg BID PO Last administered on 12/22/16 08:34; Admin Dose 50 MG; Start 12/17/16 at 21:00 Dextrose/Sodium Chloride (D5-1/2ns) 1,000 ml @ 50 mls/hr Q20H IV Last administered on 12/22/16 05:59; Admin Dose 50 MLS/HR; Start 12/18/16 at 11:30 Mirtazapine 15 mg 15 mg HS PO Last administered on 12/21/16 20:45; Admin Dose 15 MG; Start 12/18/16 at 21:00 Meropenem 100 ml @ 200 mls/hr Q12 IVPB Last administered on 12/22/16 21:23; Admin Dose 200 MLS/HR; Start 12/19/16 at 21:00 Linezolid (Zyvox 600mg/D5W (Pmx)) 300 ml @ 300 mls/hr Q12 IVPB Last administered on 12/22/16 21:23; Admin Dose 300 MLS/HR; Start 12/19/16 at 21:00 Polyethylene Glycol (Miralax) 17 gm BID PO Last administered on 12/22/16 08:34 ; Admin Dose 17 GM; Start 12/21/16 at 21:00 Insulin Aspart (Novolog Insulin Pen) NOVOLOG *MILD* ALGORI... Q4 SC ; Start at 21:00 Miscellaneous Information 1 ea NOTE XX ; Start 12/21/16 at 17:30 Glucose (Glutose) 15 gm Q15M PRN PO DECREASED GLUCOSE; Start 12/21/16 at 17:30 Glucose (Glutose) 22.5 gm Q15M PRN PO DECREASED GLUCOSE; Start 12/21/16 at 17: 30 Dextrose (D50w Syringe) 25 ml Q15M PRN IV DECREASED GLUCOSE; Start 12/21/16 at 17:30 Dextrose (D50w Syringe) 50 ml Q15M PRN IV DECREASED GLUCOSE; Start 12/21/16 at 17:30 Glucagon (Glucagen) 1 mg Q15M PRN IM DECREASED GLUCOSE; Start 12/21/16 at 17:30 Glucose (Glutose) 15 gm Q15M PRN BUCCAL DECREASED GLUCOSE; Start 12/21/16 at 17 :30 MADELYN MIRANDA MD December 22, 2016 21:28
[2016-12-22] MEDS: ATORVASTATIN 10 MG TAB PO SCH (22:18)
[2016-12-22] MEDS: MIRTAZAPINE 15 MG TAB PO SCH (22:19)
[2016-12-23] VITALS (11 sets, daily range): BP systolic 169–200; BP diastolic 76–90; PULSE 74–79; RESP 18
[2016-12-23] MEDS: INSULIN ASPART [NOVOLOG] 3 ML PEN SC SCH ×6 (01:00→21:00)
[2016-12-23 08:21] LABS: ADD SCAN DIFF NO
[2016-12-23] MEDS: CHLORDIAZEPOXIDE 25 MG CAP PO SCH ×2 (08:23→21:18)
[2016-12-23] MEDS: MEGESTROL (40 MG/ML) 10ML CUP PO SCH ×2 (08:23→21:31)
[2016-12-23] MEDS: POLYETHYLENE GLYCOL 17 GM PACKET PO SCH ×2 (08:23→21:18)
[2016-12-23] MEDS: FAMOTIDINE 20 MG TAB PO SCH (08:23)
[2016-12-23] MEDS: HEPARIN 5,000 UNIT/0.5 ML VIAL SC SCH ×2 (08:24→21:33)
[2016-12-23] MEDS: MEROPENEM 500 MG/100 ML (PMX) 100 ML IVPB SCH ×2 (08:31→21:11)
[2016-12-23] MEDS: LINEZOLID 600 MG/D5W (PMX) 300 ML IVPB SCH ×2 (08:31→21:38)
[2016-12-23 08:40] LABS: BASOPHIL # 0.1 10^3/ul (0.0-0.1); BASOPHILS % 0.6 % (0.0-2.0); EOSINOPHILS # 0.2 10^3/ul (0.0-0.5); HEMATOCRIT 27.5 % (42.0-52.0); LYMPHOCYTES % 11.3 % (15.0-51.0); MEAN CORPUSCULAR HEMOGLOBIN 30.2 pg (29.0-33.0); MEAN CORPUSCULAR HGB CONC 32.7 g/dl (32.0-37.0); MEAN CORPUSCULAR VOLUME 92.3 fl (82.0-101.0); MEAN PLATELET VOLUME 10.5 fl (7.4-10.4); MONOCYTE # 0.6 10^3/ul (0.3-0.9); MONOCYTES % 7.4 % (0.0-11.0); NEUTROPHIL # 6.6 10^3/ul (1.6-7.5); NEUTROPHILS % 77.9 % (39.0-77.0); PLATELET COUNT 399 10^3/UL (140-415); RED BLOOD COUNT 2.98 10^6/ul (4.70-6.10); WHITE BLOOD COUNT 8.5 10^3/ul (4.8-10.8)
[2016-12-23 08:52] LABS: POTASSIUM 5.2 mmol/L (3.5-5.1)
[2016-12-23 08:54] LABS: CREATININE 5.88 mg/dl (0.61-1.24)
[2016-12-23 08:55] LABS: CALCIUM 9.3 mg/dl (8.4-10.2)
[2016-12-23] MEDS: AMIODARONE 200 MG TAB PO SCH ×2 (09:00→21:18)
[2016-12-23] MEDS: METOPROLOL 50 MG TAB PO SCH ×2 (09:00→21:18)
--- NOTE | 2016-12-23 11:02 | PN ---
Date/Time of Note Date/Time of Note DATE: 12/23/16 TIME: 11:00 Assessment/Plan VTE Prophylaxis VTE Prophylaxis Intervention: heparin Lines/Catheters IV Catheter Type (from [facility]): Peripheral IV Central line still needed: Yes Urinary Cath still in place: Yes Reason Cath still needed: other (indicate) Assessment/Plan Chief Complaint/Hosp Course 1. Acute kidney injury. Etiology unclear. Continue IV hydration. Nephrology following. Avoid nephrotoxic medications. The patient was temporarily started on hemodialysis. 2. Status post fall. Brain CT negative for any acute intracranial findings. Physical therapy evaluation. 3. Essential hypertension. Continue routine antihypertensives and as needed antihypertensives for any systolic blood pressure readings greater than 160 mercury. 4. Gout. Uric acid levels within normal limits. 5. Sepsis with underlying urinary tract infection and gram-negative bacteremia. The patient on antibiotics as per Infectious Disease. No evidence of septic shock. 6. Hyperlipidemia. Continue statins. Fasting lipid panel suboptimal. 7. Paroxysmal atrial fibrillation. The patient will be continued on beta blockers and amiodarone.. Currently in sinus rhythm. Cardiology following. 8. Alcohol abuse. Continue daily banana bag. Monitor for any alcohol withdrawal delirium. 9. Dysphagia. Continue aspiration precautions. Diet as per speech therapy. 10. Acute encephalopathy. Probably metabolic in origin. Monitor. Brain CT scan negative for any acute findings. 11. Fluids, electrolytes, and nutrition. Low-cholesterol diet. 12. DVT prophylaxis. Subcutaneous heparin. 13. Gastrointestinal prophylaxis. Histamine 2 receptor blockers. 14. Plan. Continue antibiotics as per infectious diseases. Monitor renal function closely. Await further recommendations from nephrology. Continue physical therapy. Case discussed with Dr. Carbajal. Problems: Subjective 24 Hr Interval Summary Free Text/Dictation The patient's BP running high. The patient is very lethargic today. Exam/Review of Systems Vital Signs Vitals Vital Signs Date Time Temp Pulse Resp B/P Pulse Ox O2 Delivery O2 Flow Rate FiO2 12/23/16 08:01 75 12/23/16 08:00 98.6 18 198/88 98 12/22/16 01:58 Room Air 12/21/16 20:00 2.0 Intake and Output 12/22/16 12/22/16 12/23/16 15:00 23:00 07:00 Intake Total 1290 ml Output Total 700 ml 200 ml Balance 590 ml -200 ml Exam GENERAL: This is a well-built, well-nourished male patient lying in bed in no apparent distress. HEENT: Head normocephalic and atraumatic. Eyes: Anicteric sclerae. Conjunctivae clear. ENT: Nasal septum is midline. Oral mucosa is dry. NECK: Supple. No JVD noticed. RESPIRATORY: Bilaterally clear to auscultation. No adventitious breath sounds. No use of accessory muscles of respiration. CARDIAC: Regular rate and rhythm. S1-S2 heard. ABDOMEN: Soft, nontender, nondistended. Bowel sounds positive in all 4 quadrants. GENITOURINARY: Deferred. EXTREMITIES: No cyanosis, no clubbing, no edema. Peripheral pulses are palpable. NEUROLOGIC: The patient is lethargic today. Results Result Diagram: 12/23/16 0715 12/23/16 0715 Results 24 hrs Laboratory Tests Test 12/22/16 12:03 12/22/16 17:13 12/22/16 21:22 12/23/16 00:39 Bedside Glucose 95 100 102 103 Test 12/23/16 05:50 12/23/16 07:15 12/23/16 08:16 Bedside Glucose 103 128 White Blood Count 8.5 Red Blood Count 2.98 L Hemoglobin 9.0 L Hematocrit 27.5 L Mean Corpuscular Volume 92.3 Mean Corpuscular Hemoglobin 30.2 Mean Corpuscular Hemoglobin Concent 32.7 Red Cell Distribution Width 15.0 H Platelet Count 399 Mean Platelet Volume 10.5 H Neutrophils % 77.9 H Lymphocytes % 11.3 L Monocytes % 7.4 Eosinophils % 2.0 Basophils % 0.6 Nucleated Red Blood Cells % 0.0 Neutrophils # 6.6 Lymphocytes # 1.0 Monocytes # 0.6 Eosinophils # 0.2 Basophils # 0.1 Nucleated Red Blood Cells # 0.0 Sodium Level 138 Potassium Level 5.2 H Chloride Level 106 Carbon Dioxide Level 22 Anion Gap 15 Blood Urea Nitrogen 53 H Creatinine 5.88 H Glucose Level 88 Calcium Level 9.3 Magnesium Level 2.2 Medications Medications Current Medications Ondansetron HCl (Zofran Inj) 4 mg Q6H PRN IV NAUSEA AND/OR VOMITING Last administered on 12/22/16t 05:59; Admin Dose 4 MG; Start 12/10/16 at 18:00 Acetaminophen (Tylenol Tab) 650 mg Q6H PRN PO PAIN LEVEL 1-3 OR FEVER; Start at 18:00 Morphine Sulfate (morphine) 2 mg Q4H PRN IV PAIN LEVEL 7-10 Last administered on 12/15/16 05:31; Admin Dose 2 MG; Start 12/10/16 at 18:00 Magnesium Hydroxide (Milk Of Mag) 30 ml DAILY PRN PO CONSTIPATION; Start at 18:00 Bisacodyl (Dulcolax) 5 mg DAILY PRN PO CONSTIPATION; Start 12/10/16 at 18:00 Famotidine (Pepcid) 20 mg DAILY PO Last administered on 12/23/16 08:23; Admin Dose 20 MG; Start 12/11/16 at 09:00 Hydralazine HCl (Apresoline) 10 mg Q6H PRN IV SBP>160 Last administered on 12/21 15:29; Admin Dose 10 MG; Start 12/10/16 at 18:00 Atorvastatin Calcium (Lipitor) 10 mg DAILY@21 PO Last administered on 22:18; Admin Dose 10 MG; Start 12/10/16 at 21:00 Lorazepam (Ativan) 1 mg Q2H PRN IV Anxiety Last administered on 12/15/16 21:20 ; Admin Dose 1 MG; Start 12/10/16 at 18:30 Heparin Sodium (Porcine) (Heparin (5000 Units/0.5 ml)) 5,000 unit BID SC Last administered on 12/23/16 08:24; Admin Dose 5,000 UNIT; Start 12/11/16 at 21:00 Chlordiazepoxide (Librium) 50 mg BID PO Last administered on 12/23/16 08:23; Admin Dose 50 MG; Start 12/11/16 at 21:00 Miscellaneous Information (* Miscellaneous Pharmacy Order) pharmacy to dose, g... ONCE XX ; Start 12/12/16 at 02:30 Acetaminophen/ Hydrocodone Bitart 2 tab 2 tab Q4H PRN PO pain Last administered on 12/21/16 09:28; Admin Dose 1 TAB; Start 12/13/16 at 10:30 Amiodarone HCl 900 mg/Dextrose 500 ml @ 0 mls/hr Q0M IV Last administered on 13:49; Admin Dose 33.4 MLS/HR; Start 12/14/16 at 13:00 Diltiazem HCl (Cardizem-D5W 125 Mg/125 ml Drip) 125 ml @ 5 mls/hr TITRATE IV ; Start 12/16/16 at 22:45 Megestrol Acetate (Megace Susp) 400 mg BID PO Last administered on 12/23/16 08 :23; Admin Dose 400 MG; Start 12/17/16 at 13:00 Amiodarone HCl (Cordarone) 400 mg BID PO Last administered on 12/22/16 22:18; Admin Dose 400 MG; Start 12/17/16 at 21:00 Metoprolol Tartrate 50 mg 50 mg BID PO Last administered on 12/22/16 22:18; Admin Dose 50 MG; Start 12/17/16 at 21:00 Dextrose/Sodium Chloride (D5-1/2ns) 1,000 ml @ 50 mls/hr Q20H IV Last administered on 12/22/16 05:59; Admin Dose 50 MLS/HR; Start 12/18/16 at 11:30 Mirtazapine 15 mg 15 mg HS PO Last administered on 12/22/16 22:19; Admin Dose 15 MG; Start 12/18/16 at 21:00 Meropenem 100 ml @ 200 mls/hr Q12 IVPB Last administered on 12/23/16 08:31; Admin Dose 200 MLS/HR; Start 12/19/16 at 21:00 Linezolid (Zyvox 600mg/D5W (Pmx)) 300 ml @ 300 mls/hr Q12 IVPB Last administered on 12/23/16 08:31; Admin Dose 300 MLS/HR; Start 12/19/16 at 21:00 Polyethylene Glycol (Miralax) 17 gm BID PO Last administered on 12/23/16 08:23 ; Admin Dose 17 GM; Start 12/21/16 at 21:00 Insulin Aspart (Novolog Insulin Pen) NOVOLOG *MILD* ALGORI... Q4 SC ; Start at 21:00 Miscellaneous Information 1 ea NOTE XX ; Start 12/21/16 at 17:30 Glucose (Glutose) 15 gm Q15M PRN PO DECREASED GLUCOSE; Start 12/21/16 at 17:30 Glucose (Glutose) 22.5 gm Q15M PRN PO DECREASED GLUCOSE; Start 12/21/16 at 17: 30 Dextrose (D50w Syringe) 25 ml Q15M PRN IV DECREASED GLUCOSE; Start 12/21/16 at 17:30 Dextrose (D50w Syringe) 50 ml Q15M PRN IV DECREASED GLUCOSE; Start 12/21/16 at 17:30 Glucagon (Glucagen) 1 mg Q15M PRN IM DECREASED GLUCOSE; Start 12/21/16 at 17:30 Glucose (Glutose) 15 gm Q15M PRN BUCCAL DECREASED GLUCOSE; Start 12/21/16 at 17 :30 JACK JENNINGS NP December 23, 2016 11:02
[2016-12-23] MEDS: DEXTROSE 5%-0.45% NACL 1,000 ML IV SCH ×2 (11:30→21:16)
[2016-12-23] MEDS ORDERED: NA POLYST SULFON 15 GM/60 ML BTL PO ONE (13:00)
--- NOTE | 2016-12-23 13:45 | CONS ---
Date/Time of Note Date/Time of Note DATE: 12/23/16 TIME: 13:43 Assessment/Plan Assessment/Plan Additional Assessment/Plan Acute kidney injury Preserved ejection fraction Status post fall Sepsis with bacteremia Paroxysmal atrial fibrillation, currently sinus rhythm History of hypertension Recent UTI Alcohol abuse -Blood pressure meds held today for possible hemodialysis. Would restart as soon as possible if blood pressure remains stable. Continue amiodarone Consultation Date/Type/Reason Admit Date/Time December 10, 2016 at 16:57 Type of Consultation: cv Referring Provider: CLOVIS SHORE 24 HR Interval Summary Free Text/Dictation Denies shortness of breath, chest pain Exam/Review of Systems Vital Signs Vitals Vital Signs Date Time Temp Pulse Resp B/P Pulse Ox O2 Delivery O2 Flow Rate FiO2 12/23/16 12:24 79 12/23/16 12:13 98.0 18 169/76 98 12/22/16 01:58 Room Air 12/21/16 20:00 2.0 Intake and Output 12/22/16 12/22/16 12/23/16 15:00 23:00 07:00 Intake Total 1290 ml Output Total 700 ml 200 ml Balance 590 ml -200 ml Exam No apparent distress Constitutional: alert, oriented Head: normocephalic Respiratory: other (Coarse breath sounds bilaterally, no wheezing) Cardiovascular: other (S1-S2 heard), regular rate and rhythm Gastrointestinal: bowel sounds, non-tender, soft Extremities: edema Results Result Diagram: 12/23/16 0715 12/23/16 0715 Results 24 hrs Laboratory Tests Test 12/22/16 17:13 12/22/16 21:22 12/23/16 00:39 12/23/16 05:50 Bedside Glucose 100 102 103 103 Test 12/23/16 07:15 12/23/16 08:16 12/23/16 12:42 White Blood Count 8.5 Red Blood Count 2.98 L Hemoglobin 9.0 L Hematocrit 27.5 L Mean Corpuscular Volume 92.3 Mean Corpuscular Hemoglobin 30.2 Mean Corpuscular Hemoglobin Concent 32.7 Red Cell Distribution Width 15.0 H Platelet Count 399 Mean Platelet Volume 10.5 H Neutrophils % 77.9 H Lymphocytes % 11.3 L Monocytes % 7.4 Eosinophils % 2.0 Basophils % 0.6 Nucleated Red Blood Cells % 0.0 Neutrophils # 6.6 Lymphocytes # 1.0 Monocytes # 0.6 Eosinophils # 0.2 Basophils # 0.1 Nucleated Red Blood Cells # 0.0 Sodium Level 138 Potassium Level 5.2 H Chloride Level 106 Carbon Dioxide Level 22 Anion Gap 15 Blood Urea Nitrogen 53 H Creatinine 5.88 H Glucose Level 88 Calcium Level 9.3 Magnesium Level 2.2 Bedside Glucose 128 98 Medications Medications Current Medications Ondansetron HCl (Zofran Inj) 4 mg Q6H PRN IV NAUSEA AND/OR VOMITING Last administered on 12/22/16 05:59; Admin Dose 4 MG; Start 12/10/16 at 18:00 Acetaminophen (Tylenol Tab) 650 mg Q6H PRN PO PAIN LEVEL 1-3 OR FEVER; Start at 18:00 Morphine Sulfate (morphine) 2 mg Q4H PRN IV PAIN LEVEL 7-10 Last administered on 12/15/16 05:31; Admin Dose 2 MG; Start 12/10/16 at 18:00 Magnesium Hydroxide (Milk Of Mag) 30 ml DAILY PRN PO CONSTIPATION; Start at 18:00 Bisacodyl (Dulcolax) 5 mg DAILY PRN PO CONSTIPATION; Start 12/10/16 at 18:00 Famotidine (Pepcid) 20 mg DAILY PO Last administered on 12/23/16 08:23; Admin Dose 20 MG; Start 12/11/16 at 09:00 Hydralazine HCl (Apresoline) 10 mg Q6H PRN IV SBP>160 Last administered on 12/21 15:29; Admin Dose 10 MG; Start 12/10/16 at 18:00 Atorvastatin Calcium (Lipitor) 10 mg DAILY@21 PO Last administered on 22:18; Admin Dose 10 MG; Start 12/10/16 at 21:00 Lorazepam (Ativan) 1 mg Q2H PRN IV Anxiety Last administered on 12/15/16 21:20 ; Admin Dose 1 MG; Start 12/10/16 at 18:30 Heparin Sodium (Porcine) (Heparin (5000 Units/0.5 ml)) 5,000 unit BID SC Last administered on 12/23/16 08:24; Admin Dose 5,000 UNIT; Start 12/11/16 at 21:00 Chlordiazepoxide (Librium) 50 mg BID PO Last administered on 12/23/16 08:23; Admin Dose 50 MG; Start 12/11/16 at 21:00 Miscellaneous Information (* Miscellaneous Pharmacy Order) pharmacy to dose, g... ONCE XX ; Start 12/12/16 at 02:30 Acetaminophen/ Hydrocodone Bitart 2 tab 2 tab Q4H PRN PO pain Last administered on 12/21/16 09:28; Admin Dose 1 TAB; Start 12/13/16 at 10:30 Amiodarone HCl 900 mg/Dextrose 500 ml @ 0 mls/hr Q0M IV Last administered on 13:49; Admin Dose 33.4 MLS/HR; Start 12/14/16 at 13:00 Diltiazem HCl (Cardizem-D5W 125 Mg/125 ml Drip) 125 ml @ 5 mls/hr TITRATE IV ; Start 12/16/16 at 22:45 Megestrol Acetate (Megace Susp) 400 mg BID PO Last administered on 12/23/16 08 :23; Admin Dose 400 MG; Start 12/17/16 at 13:00 Amiodarone HCl (Cordarone) 400 mg BID PO Last administered on 12/22/16 22:18; Admin Dose 400 MG; Start 12/17/16 at 21:00 Metoprolol Tartrate 50 mg 50 mg BID PO Last administered on 12/22/16 22:18; Admin Dose 50 MG; Start 12/17/16 at 21:00 Dextrose/Sodium Chloride (D5-1/2ns) 1,000 ml @ 50 mls/hr Q20H IV Last administered on 12/22/16 05:59; Admin Dose 50 MLS/HR; Start 12/18/16 at 11:30 Mirtazapine 15 mg 15 mg HS PO Last administered on 12/22/16 22:19; Admin Dose 15 MG; Start 12/18/16 at 21:00 Meropenem 100 ml @ 200 mls/hr Q12 IVPB Last administered on 12/23/16 08:31; Admin Dose 200 MLS/HR; Start 12/19/16 at 21:00 Linezolid (Zyvox 600mg/D5W (Pmx)) 300 ml @ 300 mls/hr Q12 IVPB Last administered on 12/23/16 08:31; Admin Dose 300 MLS/HR; Start 12/19/16 at 21:00 Polyethylene Glycol (Miralax) 17 gm BID PO Last administered on 12/23/16 08:23 ; Admin Dose 17 GM; Start 12/21/16 at 21:00 Insulin Aspart (Novolog Insulin Pen) NOVOLOG *MILD* ALGORI... Q4 SC ; Start at 21:00 Miscellaneous Information 1 ea NOTE XX ; Start 12/21/16 at 17:30 Glucose (Glutose) 15 gm Q15M PRN PO DECREASED GLUCOSE; Start 12/21/16 at 17:30 Glucose (Glutose) 22.5 gm Q15M PRN PO DECREASED GLUCOSE; Start 12/21/16 at 17: 30 Dextrose (D50w Syringe) 25 ml Q15M PRN IV DECREASED GLUCOSE; Start 12/21/16 at 17:30 Dextrose (D50w Syringe) 50 ml Q15M PRN IV DECREASED GLUCOSE; Start 12/21/16 at 17:30 Glucagon (Glucagen) 1 mg Q15M PRN IM DECREASED GLUCOSE; Start 12/21/16 at 17:30 Glucose (Glutose) 15 gm Q15M PRN BUCCAL DECREASED GLUCOSE; Start 12/21/16 at 17 :30 Zeyad Kelly DO December 23, 2016 13:45
--- NOTE | 2016-12-23 13:52 | CONS ---
Date/Time of Note Date/Time of Note DATE: 12/23/16 TIME: 13:51 Assessment/Plan Assessment/Plan Chief Complaint/Hosp Course SUBJECTIVE: No acute events per report, lying comfortab;y in bed, no fevers MICROBIOLOGY: Blood and urine culture growing Proteus mirabilis susceptible to all antibiotics. ANTIMICROBIALS: Zyvox, Merrem Indwelling: RIJ danielle 12/13 PHYSICAL EXAMINATION: GENERAL: Obese well-developed, middle-aged man who is alert, in no distress. HEENT: Head atraumatic, normocephalic. Sclerae anicteric. Buccal mucosa dry. NECK: Supple, trachea midline. CHEST: Rise symmetrical. Breath sounds clear. HEART: S1, S2. ABDOMEN: Soft, bowel tones present. EXTREMITIES: Without cyanosis. ASSESSMENT: 1. Sepsis with acute encephalopathy 2. Proteus mirabilis urinary tract infection with bacteremia. 3. Acute kidney failure, possible chronic kidney disease. 4. HCAP, poss aspiration. 5. Hypertension. 6. Atrial fibrillation. 7. History of alcohol abuse. 8. 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 PLAN: Remains unchanged, pending repeat spinal MRI with IV contrast, continue abx/aspiration precautions, f/u nephrology rec-s, repeat cxr in am [facility] staff Problems: Consultation Date/Type/Reason Admit Date/Time December 10, 2016 at 16:57 Type of Consultation: ID Referring Provider: CLOVIS SHORE Exam/Review of Systems Vital Signs Vitals Vital Signs Date Time Temp Pulse Resp B/P Pulse Ox O2 Delivery O2 Flow Rate FiO2 12/23/16 12:24 79 12/23/16 12:13 98.0 18 169/76 98 12/22/16 01:58 Room Air 12/21/16 20:00 2.0 Intake and Output 12/22/16 12/22/16 12/23/16 15:00 23:00 07:00 Intake Total 1290 ml Output Total 700 ml 200 ml Balance 590 ml -200 ml Results Result Diagram: 12/23/16 0715 12/23/16 0715 Results 24 hrs Laboratory Tests Test 12/22/16 17:13 12/22/16 21:22 12/23/16 00:39 12/23/16 05:50 Bedside Glucose 100 102 103 103 Test 12/23/16 07:15 12/23/16 08:16 12/23/16 12:42 White Blood Count 8.5 Red Blood Count 2.98 L Hemoglobin 9.0 L Hematocrit 27.5 L Mean Corpuscular Volume 92.3 Mean Corpuscular Hemoglobin 30.2 Mean Corpuscular Hemoglobin Concent 32.7 Red Cell Distribution Width 15.0 H Platelet Count 399 Mean Platelet Volume 10.5 H Neutrophils % 77.9 H Lymphocytes % 11.3 L Monocytes % 7.4 Eosinophils % 2.0 Basophils % 0.6 Nucleated Red Blood Cells % 0.0 Neutrophils # 6.6 Lymphocytes # 1.0 Monocytes # 0.6 Eosinophils # 0.2 Basophils # 0.1 Nucleated Red Blood Cells # 0.0 Sodium Level 138 Potassium Level 5.2 H Chloride Level 106 Carbon Dioxide Level 22 Anion Gap 15 Blood Urea Nitrogen 53 H Creatinine 5.88 H Glucose Level 88 Calcium Level 9.3 Magnesium Level 2.2 Bedside Glucose 128 98 Medications Medications Current Medications Ondansetron HCl (Zofran Inj) 4 mg Q6H PRN IV NAUSEA AND/OR VOMITING Last administered on 12/22/16 05:59; Admin Dose 4 MG; Start 12/10/16 at 18:00 Acetaminophen (Tylenol Tab) 650 mg Q6H PRN PO PAIN LEVEL 1-3 OR FEVER; Start at 18:00 Morphine Sulfate (morphine) 2 mg Q4H PRN IV PAIN LEVEL 7-10 Last administered on 12/15/16 05:31; Admin Dose 2 MG; Start 12/10/16 at 18:00 Magnesium Hydroxide (Milk Of Mag) 30 ml DAILY PRN PO CONSTIPATION; Start at 18:00 Bisacodyl (Dulcolax) 5 mg DAILY PRN PO CONSTIPATION; Start 12/10/16 at 18:00 Famotidine (Pepcid) 20 mg DAILY PO Last administered on 12/23/16 08:23; Admin Dose 20 MG; Start 12/11/16 at 09:00 Hydralazine HCl (Apresoline) 10 mg Q6H PRN IV SBP>160 Last administered on 12/21 15:29; Admin Dose 10 MG; Start 12/10/16 at 18:00 Atorvastatin Calcium (Lipitor) 10 mg DAILY@21 PO Last administered on 22:18; Admin Dose 10 MG; Start 12/10/16 at 21:00 Lorazepam (Ativan) 1 mg Q2H PRN IV Anxiety Last administered on 12/15/16 21:20 ; Admin Dose 1 MG; Start 12/10/16 at 18:30 Heparin Sodium (Porcine) (Heparin (5000 Units/0.5 ml)) 5,000 unit BID SC Last administered on 12/23/16 08:24; Admin Dose 5,000 UNIT; Start 12/11/16 at 21:00 Chlordiazepoxide (Librium) 50 mg BID PO Last administered on 12/23/16 08:23; Admin Dose 50 MG; Start 12/11/16 at 21:00 Miscellaneous Information (* Miscellaneous Pharmacy Order) pharmacy to dose, g... ONCE XX ; Start 12/12/16 at 02:30 Acetaminophen/ Hydrocodone Bitart 2 tab 2 tab Q4H PRN PO pain Last administered on 12/21/16 09:28; Admin Dose 1 TAB; Start 12/13/16 at 10:30 Amiodarone HCl 900 mg/Dextrose 500 ml @ 0 mls/hr Q0M IV Last administered on 13:49; Admin Dose 33.4 MLS/HR; Start 12/14/16 at 13:00 Diltiazem HCl (Cardizem-D5W 125 Mg/125 ml Drip) 125 ml @ 5 mls/hr TITRATE IV ; Start 12/16/16 at 22:45 Megestrol Acetate (Megace Susp) 400 mg BID PO Last administered on 12/23/16 08 :23; Admin Dose 400 MG; Start 12/17/16 at 13:00 Amiodarone HCl (Cordarone) 400 mg BID PO Last administered on 12/22/16 22:18; Admin Dose 400 MG; Start 12/17/16 at 21:00 Metoprolol Tartrate 50 mg 50 mg BID PO Last administered on 12/22/16 22:18; Admin Dose 50 MG; Start 12/17/16 at 21:00 Dextrose/Sodium Chloride (D5-1/2ns) 1,000 ml @ 50 mls/hr Q20H IV Last administered on 12/22/16 05:59; Admin Dose 50 MLS/HR; Start 12/18/16 at 11:30 Mirtazapine 15 mg 15 mg HS PO Last administered on 12/22/16 22:19; Admin Dose 15 MG; Start 12/18/16 at 21:00 Meropenem 100 ml @ 200 mls/hr Q12 IVPB Last administered on 12/23/16 08:31; Admin Dose 200 MLS/HR; Start 12/19/16 at 21:00 Linezolid (Zyvox 600mg/D5W (Pmx)) 300 ml @ 300 mls/hr Q12 IVPB Last administered on 12/23/16 08:31; Admin Dose 300 MLS/HR; Start 12/19/16 at 21:00 Polyethylene Glycol (Miralax) 17 gm BID PO Last administered on 12/23/16 08:23 ; Admin Dose 17 GM; Start 12/21/16 at 21:00 Insulin Aspart (Novolog Insulin Pen) NOVOLOG *MILD* ALGORI... Q4 SC ; Start at 21:00 Miscellaneous Information 1 ea NOTE XX ; Start 12/21/16 at 17:30 Glucose (Glutose) 15 gm Q15M PRN PO DECREASED GLUCOSE; Start 12/21/16 at 17:30 Glucose (Glutose) 22.5 gm Q15M PRN PO DECREASED GLUCOSE; Start 12/21/16 at 17: 30 Dextrose (D50w Syringe) 25 ml Q15M PRN IV DECREASED GLUCOSE; Start 12/21/16 at 17:30 Dextrose (D50w Syringe) 50 ml Q15M PRN IV DECREASED GLUCOSE; Start 12/21/16 at 17:30 Glucagon (Glucagen) 1 mg Q15M PRN IM DECREASED GLUCOSE; Start 12/21/16 at 17:30 Glucose (Glutose) 15 gm Q15M PRN BUCCAL DECREASED GLUCOSE; Start 12/21/16 at 17 :30 CHERRIE JAUREGUI NP December 23, 2016 13:52
--- NOTE | 2016-12-23 16:42 | CONS ---
Date/Time of Note Date/Time of Note DATE: 12/23/16 TIME: 16:40 Assessment/Plan Assessment/Plan Additional Assessment/Plan 1. Acute kidney injury, multifactorial, not improving despite being on IVF hydration, BUN/Cr persistently high ,.started on HD during this admission 2. Hyponatremia 3. Status post fall, which was a mechanical fall, but likely due to the hyponatremia. CT brain is negative. 4. Possible history of chronic kidney disease secondary to hypertensive nephrosclerosis. 5. History of hypertension. 6. History of gout. 7. History of hyperlipidemia. 8. Atrial fibrillation, rate controlled. 9. History of alcohol abuse. 10. Thrombocytopenia secondary to alcohol abuse. 11. sepsis due to UTI and bacteremia with Blood cx and urine Cx growing proteus PLAN: started on HD through right iJ danielle HD catheter , making good urine, but still has high BUn/Cr - no Plan for HD today, will reassess for HD in AM if doesn't require by tomorrow then we will plan to d/c his danielle Blood cx and Urine cx grew proteus - on IV abx - Follow up blood cx on 12/16/16 negative to date megace for apetite, remeron 15 mg pO QHS started on nector thick liquids will follow up Consultation Date/Type/Reason Admit Date/Time December 10, 2016 at 16:57 Type of Consultation: NEPHROLOGY Referring Provider: CLOVIS SHORE 24 HR Interval Summary Free Text/Dictation mad 900 cc urine output, BP stable, pt sleeping, no plan for HD today, still has mcdonald catheter Exam/Review of Systems Vital Signs Vitals Vital Signs Date Time Temp Pulse Resp B/P Pulse Ox O2 Delivery O2 Flow Rate FiO2 12/23/16 16:14 77 12/23/16 16:10 98.0 18 200/90 99 12/22/16 01:58 Room Air 12/21/16 20:00 2.0 Intake and Output 12/22/16 12/22/16 12/23/16 15:00 23:00 07:00 Intake Total 1290 ml Output Total 700 ml 200 ml Balance 590 ml -200 ml Exam GENERAL: Obese well-developed, middle-aged man who is alert, in no distress. HEENT: Head atraumatic, normocephalic. Sclerae anicteric. Buccal mucosa dry. NECK: Supple, trachea midline. CHEST: Rise symmetrical. Breath sounds clear. HEART: S1, S2. ABDOMEN: Soft, bowel tones present. EXTREMITIES: Without cyanosis. Results Result Diagram: 12/23/16 0715 12/23/16 0715 Results 24 hrs Laboratory Tests Test 12/22/16 17:13 12/22/16 21:22 12/23/16 00:39 12/23/16 05:50 Bedside Glucose 100 102 103 103 Test 12/23/16 07:15 12/23/16 08:16 12/23/16 12:42 White Blood Count 8.5 Red Blood Count 2.98 L Hemoglobin 9.0 L Hematocrit 27.5 L Mean Corpuscular Volume 92.3 Mean Corpuscular Hemoglobin 30.2 Mean Corpuscular Hemoglobin Concent 32.7 Red Cell Distribution Width 15.0 H Platelet Count 399 Mean Platelet Volume 10.5 H Neutrophils % 77.9 H Lymphocytes % 11.3 L Monocytes % 7.4 Eosinophils % 2.0 Basophils % 0.6 Nucleated Red Blood Cells % 0.0 Neutrophils # 6.6 Lymphocytes # 1.0 Monocytes # 0.6 Eosinophils # 0.2 Basophils # 0.1 Nucleated Red Blood Cells # 0.0 Sodium Level 138 Potassium Level 5.2 H Chloride Level 106 Carbon Dioxide Level 22 Anion Gap 15 Blood Urea Nitrogen 53 H Creatinine 5.88 H Glucose Level 88 Calcium Level 9.3 Magnesium Level 2.2 Bedside Glucose 128 98 Medications Medications Current Medications Ondansetron HCl (Zofran Inj) 4 mg Q6H PRN IV NAUSEA AND/OR VOMITING Last administered on 12/22/16 05:59; Admin Dose 4 MG; Start 12/10/16 at 18:00 Acetaminophen (Tylenol Tab) 650 mg Q6H PRN PO PAIN LEVEL 1-3 OR FEVER; Start at 18:00 Morphine Sulfate (morphine) 2 mg Q4H PRN IV PAIN LEVEL 7-10 Last administered on 12/15/16 05:31; Admin Dose 2 MG; Start 12/10/16 at 18:00 Magnesium Hydroxide (Milk Of Mag) 30 ml DAILY PRN PO CONSTIPATION; Start at 18:00 Bisacodyl (Dulcolax) 5 mg DAILY PRN PO CONSTIPATION; Start 12/10/16 at 18:00 Famotidine (Pepcid) 20 mg DAILY PO Last administered on 12/23/16 08:23; Admin Dose 20 MG; Start 12/11/16 at 09:00 Hydralazine HCl (Apresoline) 10 mg Q6H PRN IV SBP>160 Last administered on 12/21 15:29; Admin Dose 10 MG; Start 12/10/16 at 18:00 Atorvastatin Calcium (Lipitor) 10 mg DAILY@21 PO Last administered on 22:18; Admin Dose 10 MG; Start 12/10/16 at 21:00 Lorazepam (Ativan) 1 mg Q2H PRN IV Anxiety Last administered on 12/15/16 21:20 ; Admin Dose 1 MG; Start 12/10/16 at 18:30 Heparin Sodium (Porcine) (Heparin (5000 Units/0.5 ml)) 5,000 unit BID SC Last administered on 12/23/16 08:24; Admin Dose 5,000 UNIT; Start 12/11/16 at 21:00 Chlordiazepoxide (Librium) 50 mg BID PO Last administered on 12/23/16 08:23; Admin Dose 50 MG; Start 12/11/16 at 21:00 Miscellaneous Information (* Miscellaneous Pharmacy Order) pharmacy to dose, g... ONCE XX ; Start 12/12/16 at 02:30 Acetaminophen/ Hydrocodone Bitart 2 tab 2 tab Q4H PRN PO pain Last administered on 12/21/16 09:28; Admin Dose 1 TAB; Start 12/13/16 at 10:30 Amiodarone HCl 900 mg/Dextrose 500 ml @ 0 mls/hr Q0M IV Last administered on 13:49; Admin Dose 33.4 MLS/HR; Start 12/14/16 at 13:00 Diltiazem HCl (Cardizem-D5W 125 Mg/125 ml Drip) 125 ml @ 5 mls/hr TITRATE IV ; Start 12/16/16 at 22:45 Megestrol Acetate (Megace Susp) 400 mg BID PO Last administered on 12/23/16 08 :23; Admin Dose 400 MG; Start 12/17/16 at 13:00 Amiodarone HCl (Cordarone) 400 mg BID PO Last administered on 12/22/16 22:18; Admin Dose 400 MG; Start 12/17/16 at 21:00 Metoprolol Tartrate 50 mg 50 mg BID PO Last administered on 12/22/16 22:18; Admin Dose 50 MG; Start 12/17/16 at 21:00 Dextrose/Sodium Chloride (D5-1/2ns) 1,000 ml @ 50 mls/hr Q20H IV Last administered on 12/22/16 05:59; Admin Dose 50 MLS/HR; Start 12/18/16 at 11:30 Mirtazapine 15 mg 15 mg HS PO Last administered on 12/22/16 22:19; Admin Dose 15 MG; Start 12/18/16 at 21:00 Meropenem 100 ml @ 200 mls/hr Q12 IVPB Last administered on 12/23/16 08:31; Admin Dose 200 MLS/HR; Start 12/19/16 at 21:00 Linezolid (Zyvox 600mg/D5W (Pmx)) 300 ml @ 300 mls/hr Q12 IVPB Last administered on 12/23/16 08:31; Admin Dose 300 MLS/HR; Start 12/19/16 at 21:00 Polyethylene Glycol (Miralax) 17 gm BID PO Last administered on 12/23/16 08:23 ; Admin Dose 17 GM; Start 12/21/16 at 21:00 Insulin Aspart (Novolog Insulin Pen) NOVOLOG *MILD* ALGORI... Q4 SC ; Start at 21:00 Miscellaneous Information 1 ea NOTE XX ; Start 12/21/16 at 17:30 Glucose (Glutose) 15 gm Q15M PRN PO DECREASED GLUCOSE; Start 12/21/16 at 17:30 Glucose (Glutose) 22.5 gm Q15M PRN PO DECREASED GLUCOSE; Start 12/21/16 at 17: 30 Dextrose (D50w Syringe) 25 ml Q15M PRN IV DECREASED GLUCOSE; Start 12/21/16 at 17:30 Dextrose (D50w Syringe) 50 ml Q15M PRN IV DECREASED GLUCOSE; Start 12/21/16 at 17:30 Glucagon (Glucagen) 1 mg Q15M PRN IM DECREASED GLUCOSE; Start 12/21/16 at 17:30 Glucose (Glutose) 15 gm Q15M PRN BUCCAL DECREASED GLUCOSE; Start 12/21/16 at 17 :30 MADELYN MIRANDA MD December 23, 2016 16:41
--- NOTE | 2016-12-23 16:44 | RADRPT ---
PROCEDURE: Chest Radiograph. CLINICAL INDICATION: Pneumonia TECHNIQUE: Single frontal chest radiograph. COMPARISON: Chest radiograph 11/19/2016 FINDINGS: A right internal jugular venous catheter remains in place. The patient is rotated and heart size is poorly evaluated. Atherosclerotic calcifications are present . There is moderate central vascular congestion worsening compared to prior study. There is worsening interstitial opacities consistent with pulmonary edema.. There is worsening bibasilar opacities likely related to increasing pleur al effusions with adjacent atelectasis/infiltrate. The bones are intact. IMPRESSION: 1. Worsening central vascular congestion and suggested pulmonary edema. Recommend correlation with worsening CHF/fluid overload. 2. Worsening bibasilar pleural / parenchymal disease likely related to increasing pleural effusions . RPTAT: AA .Madan Gr MD, Date Time Electronically viewed and signed by .Madan Gr MD, on 12/23/2016 16:43 .B/
[2016-12-23] MEDS: MIRTAZAPINE 15 MG TAB PO SCH (21:17)
[2016-12-23] MEDS: ATORVASTATIN 10 MG TAB PO SCH (21:18)
[2016-12-24] VITALS (15 sets, daily range): BP systolic 111–193; BP diastolic 53–87; PULSE 70–92; RESP 17–20
[2016-12-24] MEDS: INSULIN ASPART [NOVOLOG] 3 ML PEN SC SCH ×6 (01:00→21:00)
[2016-12-24] MEDS: hydrALAzine 20 MG INJ IV PRN ×3 (03:48→21:29)
[2016-12-24] MEDS: LORAZEPAM 2 MG INJ IV PRN (04:16)
[2016-12-24 07:24] LABS: ADD SCAN DIFF NO
[2016-12-24 07:34] LABS: BASOPHILS % 0.4 % (0.0-2.0); EOSINOPHILS # 0.2 10^3/ul (0.0-0.5); EOSINOPHILS % 1.5 % (0.0-7.0); HEMATOCRIT 30.2 % (42.0-52.0); HEMOGLOBIN 9.9 g/dl (14.0-18.0); LYMPHOCYTES # 0.9 10^3/ul (0.8-2.9); LYMPHOCYTES % 8.3 % (15.0-51.0); MEAN CORPUSCULAR HEMOGLOBIN 30.1 pg (29.0-33.0); MEAN CORPUSCULAR HGB CONC 32.8 g/dl (32.0-37.0); MEAN CORPUSCULAR VOLUME 91.8 fl (82.0-101.0); MEAN PLATELET VOLUME 10.5 fl (7.4-10.4); MONOCYTE # 0.6 10^3/ul (0.3-0.9); MONOCYTES % 6.1 % (0.0-11.0); NEUTROPHIL # 8.6 10^3/ul (1.6-7.5); NEUTROPHILS % 83.1 % (39.0-77.0); PLATELET COUNT 446 10^3/UL (140-415); RED BLOOD COUNT 3.29 10^6/ul (4.70-6.10); RED CELL DISTRIBUTION WIDTH 14.7 % (11.5-14.5); WHITE BLOOD COUNT 10.4 10^3/ul (4.8-10.8)
[2016-12-24 07:52] LABS: POTASSIUM 4.5 mmol/L (3.5-5.1)
[2016-12-24 07:54] LABS: CREATININE 6.12 mg/dl (0.61-1.24)
[2016-12-24 07:55] LABS: CALCIUM 9.9 mg/dl (8.4-10.2); PHOSPHORUS 6.3 mg/dl (2.5-4.9)
[2016-12-24] MEDS: CHLORDIAZEPOXIDE 25 MG CAP PO SCH ×2 (08:13→21:00)
[2016-12-24] MEDS: MEROPENEM 500 MG/100 ML (PMX) 100 ML IVPB SCH ×2 (09:05→21:31)
[2016-12-24] MEDS: MEGESTROL (40 MG/ML) 10ML CUP PO SCH ×2 (09:05→21:38)
[2016-12-24] MEDS: FAMOTIDINE 20 MG TAB PO SCH (09:05)
[2016-12-24] MEDS: DEXTROSE 5%-0.45% NACL 1,000 ML IV SCH (09:05)
[2016-12-24] MEDS: LINEZOLID 600 MG/D5W (PMX) 300 ML IVPB SCH (09:05)
[2016-12-24] MEDS: POLYETHYLENE GLYCOL 17 GM PACKET PO SCH ×2 (09:05→21:47)
[2016-12-24] MEDS: AMIODARONE 200 MG TAB PO SCH ×2 (09:06→21:33)
[2016-12-24] MEDS: METOPROLOL 50 MG TAB PO SCH ×2 (09:06→21:33)
[2016-12-24] MEDS: HEPARIN 5,000 UNIT/0.5 ML VIAL SC SCH ×2 (09:10→21:50)
--- NOTE | 2016-12-24 10:20 | CONS ---
Date/Time of Note Date/Time of Note DATE: 12/24/16 TIME: 10:18 Assessment/Plan Assessment/Plan Additional Assessment/Plan Acute kidney injury Preserved ejection fraction Status post fall Sepsis with bacteremia Paroxysmal atrial fibrillation, currently sinus rhythm History of hypertension Recent UTI Alcohol abuse -Blood pressure trend remains elevated. Antihypertensives were on hold yesterday for possible hemodialysis. Given acute kidney injury, no ARLENE inhibitor or ARB at the current time. Would start Norvasc. Remains in sinus rhythm, would titrate down amiodarone over the next few days if remains in sinus. Consultation Date/Type/Reason Admit Date/Time December 10, 2016 at 16:57 Type of Consultation: cv Referring Provider: CLOVIS SHORE 24 HR Interval Summary Free Text/Dictation Denies shortness of breath, chest pain Exam/Review of Systems Vital Signs Vitals Vital Signs Date Time Temp Pulse Resp B/P Pulse Ox O2 Delivery O2 Flow Rate FiO2 12/24/16 08:01 92 12/24/16 07:57 Nasal Cannula 2.0 12/24/16 07:19 97.1 20 175/74 94 Intake and Output 12/23/16 12/23/16 12/24/16 14:59 22:59 06:59 Intake Total 2200 ml 150 ml Output Total 800 ml 1000 ml Balance 1400 ml -850 ml Exam No apparent distress, appears tired but following commands Constitutional: alert, oriented Head: normocephalic Respiratory: other (Coarse breath sounds bilaterally, no wheezing) Cardiovascular: other (S1-S2 heard), regular rate and rhythm Gastrointestinal: bowel sounds, non-tender, soft Extremities: edema Results Result Diagram: 12/24/16 0658 12/24/16 0636 Results 24 hrs Laboratory Tests Test 12/23/16 12:42 12/23/16 16:55 12/23/16 20:16 12/24/16 01:46 Bedside Glucose 98 91 104 107 Test 12/24/16 04:32 12/24/16 06:36 12/24/16 06:58 Bedside Glucose 83 Sodium Level 140 Potassium Level 4.5 Chloride Level 106 Carbon Dioxide Level 21 Anion Gap 18 H Blood Urea Nitrogen 51 H Creatinine 6.12 H Glucose Level 96 Calcium Level 9.9 Phosphorus Level 6.3 H Magnesium Level 2.0 White Blood Count 10.4 # Red Blood Count 3.29 L Hemoglobin 9.9 L Hematocrit 30.2 L Mean Corpuscular Volume 91.8 Mean Corpuscular Hemoglobin 30.1 Mean Corpuscular Hemoglobin Concent 32.8 Red Cell Distribution Width 14.7 H Platelet Count 446 H Mean Platelet Volume 10.5 H Neutrophils % 83.1 H Lymphocytes % 8.3 L Monocytes % 6.1 Eosinophils % 1.5 Basophils % 0.4 Nucleated Red Blood Cells % 0.0 Neutrophils # 8.6 H Lymphocytes # 0.9 Monocytes # 0.6 Eosinophils # 0.2 Basophils # 0.0 Nucleated Red Blood Cells # 0.0 Medications Medications Current Medications Ondansetron HCl (Zofran Inj) 4 mg Q6H PRN IV NAUSEA AND/OR VOMITING Last administered on 12/22/16 05:59; Admin Dose 4 MG; Start 12/10/16 at 18:00 Acetaminophen (Tylenol Tab) 650 mg Q6H PRN PO PAIN LEVEL 1-3 OR FEVER; Start at 18:00 Morphine Sulfate (morphine) 2 mg Q4H PRN IV PAIN LEVEL 7-10 Last administered on 12/15/16 05:31; Admin Dose 2 MG; Start 12/10/16 at 18:00 Magnesium Hydroxide (Milk Of Mag) 30 ml DAILY PRN PO CONSTIPATION; Start at 18:00 Bisacodyl (Dulcolax) 5 mg DAILY PRN PO CONSTIPATION; Start 12/10/16 at 18:00 Famotidine (Pepcid) 20 mg DAILY PO Last administered on 12/24/16 09:05; Admin Dose 20 MG; Start 12/11/16 at 09:00 Hydralazine HCl (Apresoline) 10 mg Q6H PRN IV SBP>160 Last administered on 12/24 09:07; Admin Dose 10 MG; Start 12/10/16 at 18:00 Atorvastatin Calcium (Lipitor) 10 mg DAILY@21 PO Last administered on 21:18; Admin Dose 10 MG; Start 12/10/16 at 21:00 Lorazepam (Ativan) 1 mg Q2H PRN IV Anxiety Last administered on 12/24/16 04:16 ; Admin Dose 1 MG; Start 12/10/16 at 18:30 Heparin Sodium (Porcine) (Heparin (5000 Units/0.5 ml)) 5,000 unit BID SC Last administered on 12/24/16 09:10; Admin Dose 5,000 UNIT; Start 12/11/16 at 21:00 Chlordiazepoxide (Librium) 50 mg BID PO Last administered on 12/23/16 21:18; Admin Dose 50 MG; Start 12/11/16 at 21:00 Miscellaneous Information (* Miscellaneous Pharmacy Order) pharmacy to dose, g... ONCE XX ; Start 12/12/16 at 02:30 Acetaminophen/ Hydrocodone Bitart 2 tab 2 tab Q4H PRN PO pain Last administered on 12/21/16 09:28; Admin Dose 1 TAB; Start 12/13/16 at 10:30 Amiodarone HCl 900 mg/Dextrose 500 ml @ 0 mls/hr Q0M IV Last administered on 13:49; Admin Dose 33.4 MLS/HR; Start 12/14/16 at 13:00 Diltiazem HCl (Cardizem-D5W 125 Mg/125 ml Drip) 125 ml @ 5 mls/hr TITRATE IV ; Start 12/16/16 at 22:45 Megestrol Acetate (Megace Susp) 400 mg BID PO Last administered on 12/24/16 09 :05; Admin Dose 400 MG; Start 12/17/16 at 13:00 Amiodarone HCl (Cordarone) 400 mg BID PO Last administered on 12/24/16 09:06; Admin Dose 400 MG; Start 12/17/16 at 21:00 Metoprolol Tartrate 50 mg 50 mg BID PO Last administered on 12/24/16 09:06; Admin Dose 50 MG; Start 12/17/16 at 21:00 Dextrose/Sodium Chloride (D5-1/2ns) 1,000 ml @ 50 mls/hr Q20H IV Last administered on 12/24/16 09:05; Admin Dose 50 MLS/HR; Start 12/18/16 at 11:30 Mirtazapine 15 mg 15 mg HS PO Last administered on 12/23/16 21:17; Admin Dose 15 MG; Start 12/18/16 at 21:00 Meropenem 100 ml @ 200 mls/hr Q12 IVPB Last administered on 12/24/16 09:05; Admin Dose 200 MLS/HR; Start 12/19/16 at 21:00 Linezolid (Zyvox 600mg/D5W (Pmx)) 300 ml @ 300 mls/hr Q12 IVPB Last administered on 12/24/16 09:05; Admin Dose 300 MLS/HR; Start 12/19/16 at 21:00 Polyethylene Glycol (Miralax) 17 gm BID PO Last administered on 12/24/16 09:05 ; Admin Dose 17 GM; Start 12/21/16 at 21:00 Insulin Aspart (Novolog Insulin Pen) NOVOLOG *MILD* ALGORI... Q4 SC ; Start at 21:00 Miscellaneous Information 1 ea NOTE XX ; Start 12/21/16 at 17:30 Glucose (Glutose) 15 gm Q15M PRN PO DECREASED GLUCOSE; Start 12/21/16 at 17:30 Glucose (Glutose) 22.5 gm Q15M PRN PO DECREASED GLUCOSE; Start 12/21/16 at 17: 30 Dextrose (D50w Syringe) 25 ml Q15M PRN IV DECREASED GLUCOSE; Start 12/21/16 at 17:30 Dextrose (D50w Syringe) 50 ml Q15M PRN IV DECREASED GLUCOSE; Start 12/21/16 at 17:30 Glucagon (Glucagen) 1 mg Q15M PRN IM DECREASED GLUCOSE; Start 12/21/16 at 17:30 Glucose (Glutose) 15 gm Q15M PRN BUCCAL DECREASED GLUCOSE; Start 12/21/16 at 17 :30 Zeyad Kelly DO December 24, 2016 10:20
[2016-12-24] MEDS: ONDANSETRON 4 MG INJ IV PRN (12:08)
[2016-12-24] MEDS: morphine 2 MG INJ IV PRN (12:09)
[2016-12-24] MEDS: AMLODIPINE 5 MG TAB PO SCH (12:10)
--- NOTE | 2016-12-24 14:50 | PN ---
Date/Time of Note Date/Time of Note DATE: 12/24/16 TIME: 14:49 Assessment/Plan VTE Prophylaxis VTE Prophylaxis Intervention: heparin Lines/Catheters IV Catheter Type (from [facility]): Peripheral IV Urinary Cath still in place: Yes Reason Cath still needed: other (indicate) Assessment/Plan Chief Complaint/Hosp Course 1. Acute kidney injury. Etiology unclear. Continue IV hydration. Nephrology following. Avoid nephrotoxic medications. The patient was temporarily started on hemodialysis. 2. Status post fall. Brain CT negative for any acute intracranial findings. Physical therapy evaluation. 3. Essential hypertension. Continue routine antihypertensives and as needed antihypertensives for any systolic blood pressure readings greater than 160 mercury. 4. Gout. Uric acid levels within normal limits. 5. Sepsis with underlying urinary tract infection and gram-negative bacteremia. The patient on antibiotics as per Infectious Disease. No evidence of septic shock. 6. Hyperlipidemia. Continue statins. Fasting lipid panel suboptimal. 7. Paroxysmal atrial fibrillation. The patient will be continued on beta blockers and amiodarone.. Currently in sinus rhythm. Cardiology following. 8. Alcohol abuse. Continue daily banana bag. Monitor for any alcohol withdrawal delirium. 9. Dysphagia. Continue aspiration precautions. Diet as per speech therapy. 10. Acute encephalopathy. Probably metabolic in origin. Monitor. Brain CT scan negative for any acute findings. 11. Fluids, electrolytes, and nutrition. Low-cholesterol diet. 12. DVT prophylaxis. Subcutaneous heparin. 13. Gastrointestinal prophylaxis. Histamine 2 receptor blockers. 14. Plan. Continue antibiotics as per infectious diseases. Monitor renal function closely. Await further recommendations from nephrology. Continue physical therapy. Case discussed with Dr. Carbajal. Problems: Subjective 24 Hr Interval Summary Free Text/Dictation The patient remains lethargic. Exam/Review of Systems Vital Signs Vitals Vital Signs Date Time Temp Pulse Resp B/P Pulse Ox O2 Delivery O2 Flow Rate FiO2 12/24/16 12:42 75 12/24/16 11:38 97.5 19 170/77 97 12/24/16 07:57 Nasal Cannula 2.0 Intake and Output 12/23/16 12/23/16 12/24/16 15:00 23:00 07:00 Intake Total 2200 ml 150 ml Output Total 800 ml 1000 ml Balance 1400 ml -850 ml Exam GENERAL: This is a well-built, well-nourished male patient lying in bed in no apparent distress. HEENT: Head normocephalic and atraumatic. Eyes: Anicteric sclerae. Conjunctivae clear. ENT: Nasal septum is midline. Oral mucosa is dry. NECK: Supple. No JVD noticed. RESPIRATORY: Bilaterally clear to auscultation. No adventitious breath sounds. No use of accessory muscles of respiration. CARDIAC: Regular rate and rhythm. S1-S2 heard. ABDOMEN: Soft, nontender, nondistended. Bowel sounds positive in all 4 quadrants. GENITOURINARY: Deferred. EXTREMITIES: No cyanosis, no clubbing, no edema. Peripheral pulses are palpable. NEUROLOGIC: The patient is lethargic today. Results Result Diagram: 12/24/16 0658 12/24/16 0636 Results 24 hrs Laboratory Tests Test 12/23/16 16:55 12/23/16 20:16 12/24/16 01:46 12/24/16 04:32 Bedside Glucose 91 104 107 83 Test 12/24/16 06:36 12/24/16 06:58 12/24/16 12:14 Sodium Level 140 Potassium Level 4.5 Chloride Level 106 Carbon Dioxide Level 21 Anion Gap 18 H Blood Urea Nitrogen 51 H Creatinine 6.12 H Glucose Level 96 Calcium Level 9.9 Phosphorus Level 6.3 H Magnesium Level 2.0 White Blood Count 10.4 # Red Blood Count 3.29 L Hemoglobin 9.9 L Hematocrit 30.2 L Mean Corpuscular Volume 91.8 Mean Corpuscular Hemoglobin 30.1 Mean Corpuscular Hemoglobin Concent 32.8 Red Cell Distribution Width 14.7 H Platelet Count 446 H Mean Platelet Volume 10.5 H Neutrophils % 83.1 H Lymphocytes % 8.3 L Monocytes % 6.1 Eosinophils % 1.5 Basophils % 0.4 Nucleated Red Blood Cells % 0.0 Neutrophils # 8.6 H Lymphocytes # 0.9 Monocytes # 0.6 Eosinophils # 0.2 Basophils # 0.0 Nucleated Red Blood Cells # 0.0 Bedside Glucose 92 Medications Medications Current Medications Ondansetron HCl (Zofran Inj) 4 mg Q6H PRN IV NAUSEA AND/OR VOMITING Last administered on 12/24/16t 12:08; Admin Dose 4 MG; Start 12/10/16 at 18:00 Acetaminophen (Tylenol Tab) 650 mg Q6H PRN PO PAIN LEVEL 1-3 OR FEVER; Start at 18:00 Morphine Sulfate (morphine) 2 mg Q4H PRN IV PAIN LEVEL 7-10 Last administered on 12/24/16 12:09; Admin Dose 2 MG; Start 12/10/16 at 18:00 Magnesium Hydroxide (Milk Of Mag) 30 ml DAILY PRN PO CONSTIPATION; Start at 18:00 Bisacodyl (Dulcolax) 5 mg DAILY PRN PO CONSTIPATION; Start 12/10/16 at 18:00 Famotidine (Pepcid) 20 mg DAILY PO Last administered on 12/24/16 09:05; Admin Dose 20 MG; Start 12/11/16 at 09:00 Hydralazine HCl (Apresoline) 10 mg Q6H PRN IV SBP>160 Last administered on 12/24 09:07; Admin Dose 10 MG; Start 12/10/16 at 18:00 Atorvastatin Calcium (Lipitor) 10 mg DAILY@21 PO Last administered on 21:18; Admin Dose 10 MG; Start 12/10/16 at 21:00 Lorazepam (Ativan) 1 mg Q2H PRN IV Anxiety Last administered on 12/24/16 04:16 ; Admin Dose 1 MG; Start 12/10/16 at 18:30 Heparin Sodium (Porcine) (Heparin (5000 Units/0.5 ml)) 5,000 unit BID SC Last administered on 12/24/16 09:10; Admin Dose 5,000 UNIT; Start 12/11/16 at 21:00 Chlordiazepoxide (Librium) 50 mg BID PO Last administered on 12/23/16 21:18; Admin Dose 50 MG; Start 12/11/16 at 21:00 Miscellaneous Information (* Miscellaneous Pharmacy Order) pharmacy to dose, g... ONCE XX ; Start 12/12/16 at 02:30 Acetaminophen/ Hydrocodone Bitart 2 tab 2 tab Q4H PRN PO pain Last administered on 12/21/16 09:28; Admin Dose 1 TAB; Start 12/13/16 at 10:30 Amiodarone HCl 900 mg/Dextrose 500 ml @ 0 mls/hr Q0M IV Last administered on 13:49; Admin Dose 33.4 MLS/HR; Start 12/14/16 at 13:00 Diltiazem HCl (Cardizem-D5W 125 Mg/125 ml Drip) 125 ml @ 5 mls/hr TITRATE IV ; Start 12/16/16 at 22:45 Megestrol Acetate (Megace Susp) 400 mg BID PO Last administered on 12/24/16 09 :05; Admin Dose 400 MG; Start 12/17/16 at 13:00 Amiodarone HCl (Cordarone) 400 mg BID PO Last administered on 12/24/16 09:06; Admin Dose 400 MG; Start 12/17/16 at 21:00 Metoprolol Tartrate (Lopressor) 50 mg BID PO Last administered on 12/24/16 09: 06; Admin Dose 50 MG; Start 12/17/16 at 21:00 Mirtazapine 15 mg 15 mg HS PO Last administered on 12/23/16 21:17; Admin Dose 15 MG; Start 12/18/16 at 21:00 Meropenem 100 ml @ 200 mls/hr Q12 IVPB Last administered on 12/24/16 09:05; Admin Dose 200 MLS/HR; Start 12/19/16 at 21:00 Linezolid (Zyvox 600mg/D5W (Pmx)) 300 ml @ 300 mls/hr Q12 IVPB Last administered on 12/24/16 09:05; Admin Dose 300 MLS/HR; Start 12/19/16 at 21:00 Polyethylene Glycol (Miralax) 17 gm BID PO Last administered on 12/24/16 09:05 ; Admin Dose 17 GM; Start 12/21/16 at 21:00 Insulin Aspart (Novolog Insulin Pen) NOVOLOG *MILD* ALGORI... Q4 SC ; Start at 21:00 Miscellaneous Information 1 ea NOTE XX ; Start 12/21/16 at 17:30 Glucose (Glutose) 15 gm Q15M PRN PO DECREASED GLUCOSE; Start 12/21/16 at 17:30 Glucose (Glutose) 22.5 gm Q15M PRN PO DECREASED GLUCOSE; Start 12/21/16 at 17: 30 Dextrose (D50w Syringe) 25 ml Q15M PRN IV DECREASED GLUCOSE; Start 12/21/16 at 17:30 Dextrose (D50w Syringe) 50 ml Q15M PRN IV DECREASED GLUCOSE; Start 12/21/16 at 17:30 Glucagon (Glucagen) 1 mg Q15M PRN IM DECREASED GLUCOSE; Start 12/21/16 at 17:30 Glucose (Glutose) 15 gm Q15M PRN BUCCAL DECREASED GLUCOSE; Start 12/21/16 at 17 :30 Amlodipine Besylate (Norvasc) 5 mg DAILY PO Last administered on 12/24/16t 12: 10; Admin Dose 5 MG; Start 12/24/16 at 10:30 JACK JENNINGS NP December 24, 2016 14:50
--- NOTE | 2016-12-24 18:34 | CONS ---
Date/Time of Note Date/Time of Note DATE: 12/24/16 TIME: 18:32 Assessment/Plan Assessment/Plan Chief Complaint/Hosp Course SUBJECTIVE: No acute events per report, no fevers MICROBIOLOGY: Blood and urine culture growing Proteus mirabilis susceptible to all antibiotics. ANTIMICROBIALS: Zyvox, Merrem Indwelling: RIJ danielle 12/13 PHYSICAL EXAMINATION: GENERAL: Obese well-developed, middle-aged man who is alert, in no distress. HEENT: Head atraumatic, normocephalic. Sclerae anicteric. Buccal mucosa dry. NECK: Supple, trachea midline. CHEST: Rise symmetrical. Breath sounds clear. HEART: S1, S2. ABDOMEN: Soft, bowel tones present. EXTREMITIES: Without cyanosis. ASSESSMENT: 1. Sepsis with acute encephalopathy 2. Proteus mirabilis urinary tract infection with bacteremia. 3. Acute kidney failure, possible chronic kidney disease. 4. HCAP, poss aspiration. 5. Hypertension. 6. Atrial fibrillation. 7. History of alcohol abuse. 8. 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 DW staff Problems: Consultation Date/Type/Reason Admit Date/Time December 10, 2016 at 16:57 Type of Consultation: ID Referring Provider: CLOVIS SHORE Exam/Review of Systems Vital Signs Vitals Vital Signs Date Time Temp Pulse Resp B/P Pulse Ox O2 Delivery O2 Flow Rate FiO2 12/24/16 16:29 76 12/24/16 15:53 97.2 18 171/77 97 12/24/16 07:57 Nasal Cannula 2.0 Intake and Output 12/23/16 12/23/16 12/24/16 15:00 23:00 07:00 Intake Total 2200 ml 150 ml Output Total 800 ml 1000 ml Balance 1400 ml -850 ml Results Result Diagram: 12/24/16 0658 12/24/16 0636 Results 24 hrs Laboratory Tests Test 12/23/16 20:16 12/24/16 01:46 12/24/16 04:32 12/24/16 06:36 Bedside Glucose 104 107 83 Sodium Level 140 Potassium Level 4.5 Chloride Level 106 Carbon Dioxide Level 21 Anion Gap 18 H Blood Urea Nitrogen 51 H Creatinine 6.12 H Glucose Level 96 Calcium Level 9.9 Phosphorus Level 6.3 H Magnesium Level 2.0 Test 12/24/16 06:58 12/24/16 12:14 12/24/16 17:28 White Blood Count 10.4 # Red Blood Count 3.29 L Hemoglobin 9.9 L Hematocrit 30.2 L Mean Corpuscular Volume 91.8 Mean Corpuscular Hemoglobin 30.1 Mean Corpuscular Hemoglobin Concent 32.8 Red Cell Distribution Width 14.7 H Platelet Count 446 H Mean Platelet Volume 10.5 H Neutrophils % 83.1 H Lymphocytes % 8.3 L Monocytes % 6.1 Eosinophils % 1.5 Basophils % 0.4 Nucleated Red Blood Cells % 0.0 Neutrophils # 8.6 H Lymphocytes # 0.9 Monocytes # 0.6 Eosinophils # 0.2 Basophils # 0.0 Nucleated Red Blood Cells # 0.0 Bedside Glucose 92 92 Medications Medications Current Medications Ondansetron HCl (Zofran Inj) 4 mg Q6H PRN IV NAUSEA AND/OR VOMITING Last administered on 12/24/16 12:08; Admin Dose 4 MG; Start 12/10/16 at 18:00 Acetaminophen (Tylenol Tab) 650 mg Q6H PRN PO PAIN LEVEL 1-3 OR FEVER; Start at 18:00 Morphine Sulfate (morphine) 2 mg Q4H PRN IV PAIN LEVEL 7-10 Last administered on 12/24/16 12:09; Admin Dose 2 MG; Start 12/10/16 at 18:00 Magnesium Hydroxide (Milk Of Mag) 30 ml DAILY PRN PO CONSTIPATION; Start at 18:00 Bisacodyl (Dulcolax) 5 mg DAILY PRN PO CONSTIPATION; Start 12/10/16 at 18:00 Famotidine (Pepcid) 20 mg DAILY PO Last administered on 12/24/16 09:05; Admin Dose 20 MG; Start 12/11/16 at 09:00 Hydralazine HCl (Apresoline) 10 mg Q6H PRN IV SBP>160 Last administered on 12/24 09:07; Admin Dose 10 MG; Start 12/10/16 at 18:00 Atorvastatin Calcium (Lipitor) 10 mg DAILY@21 PO Last administered on 21:18; Admin Dose 10 MG; Start 12/10/16 at 21:00 Lorazepam (Ativan) 1 mg Q2H PRN IV Anxiety Last administered on 12/24/16 04:16 ; Admin Dose 1 MG; Start 12/10/16 at 18:30 Heparin Sodium (Porcine) (Heparin (5000 Units/0.5 ml)) 5,000 unit BID SC Last administered on 12/24/16 09:10; Admin Dose 5,000 UNIT; Start 12/11/16 at 21:00 Chlordiazepoxide (Librium) 50 mg BID PO Last administered on 12/23/16 21:18; Admin Dose 50 MG; Start 12/11/16 at 21:00 Miscellaneous Information (* Miscellaneous Pharmacy Order) pharmacy to dose, g... ONCE XX ; Start 12/12/16 at 02:30 Acetaminophen/ Hydrocodone Bitart 2 tab 2 tab Q4H PRN PO pain Last administered on 12/21/16 09:28; Admin Dose 1 TAB; Start 12/13/16 at 10:30 Amiodarone HCl 900 mg/Dextrose 500 ml @ 0 mls/hr Q0M IV Last administered on 13:49; Admin Dose 33.4 MLS/HR; Start 12/14/16 at 13:00 Diltiazem HCl (Cardizem-D5W 125 Mg/125 ml Drip) 125 ml @ 5 mls/hr TITRATE IV ; Start 12/16/16 at 22:45 Megestrol Acetate (Megace Susp) 400 mg BID PO Last administered on 12/24/16 09 :05; Admin Dose 400 MG; Start 12/17/16 at 13:00 Amiodarone HCl (Cordarone) 400 mg BID PO Last administered on 12/24/16 09:06; Admin Dose 400 MG; Start 12/17/16 at 21:00 Metoprolol Tartrate (Lopressor) 50 mg BID PO Last administered on 12/24/16 09: 06; Admin Dose 50 MG; Start 12/17/16 at 21:00 Mirtazapine 15 mg 15 mg HS PO Last administered on 12/23/16 21:17; Admin Dose 15 MG; Start 12/18/16 at 21:00 Meropenem 100 ml @ 200 mls/hr Q12 IVPB Last administered on 12/24/16 09:05; Admin Dose 200 MLS/HR; Start 12/19/16 at 21:00 Linezolid (Zyvox 600mg/D5W (Pmx)) 300 ml @ 300 mls/hr Q12 IVPB Last administered on 12/24/16 09:05; Admin Dose 300 MLS/HR; Start 12/19/16 at 21:00 Polyethylene Glycol (Miralax) 17 gm BID PO Last administered on 12/24/16 09:05 ; Admin Dose 17 GM; Start 12/21/16 at 21:00 Insulin Aspart (Novolog Insulin Pen) NOVOLOG *MILD* ALGORI... Q4 SC ; Start at 21:00 Miscellaneous Information 1 ea NOTE XX ; Start 12/21/16 at 17:30 Glucose (Glutose) 15 gm Q15M PRN PO DECREASED GLUCOSE; Start 12/21/16 at 17:30 Glucose (Glutose) 22.5 gm Q15M PRN PO DECREASED GLUCOSE; Start 12/21/16 at 17: 30 Dextrose (D50w Syringe) 25 ml Q15M PRN IV DECREASED GLUCOSE; Start 12/21/16 at 17:30 Dextrose (D50w Syringe) 50 ml Q15M PRN IV DECREASED GLUCOSE; Start 12/21/16 at 17:30 Glucagon (Glucagen) 1 mg Q15M PRN IM DECREASED GLUCOSE; Start 12/21/16 at 17:30 Glucose (Glutose) 15 gm Q15M PRN BUCCAL DECREASED GLUCOSE; Start 12/21/16 at 17 :30 Amlodipine Besylate (Norvasc) 5 mg DAILY PO Last administered on 12/24/16 12: 10; Admin Dose 5 MG; Start 12/24/16 at 10:30 CHERRIE JAUREGUI NP December 24, 2016 18:33
[2016-12-24] MEDS: MIRTAZAPINE 15 MG TAB PO SCH (21:33)
[2016-12-24] MEDS: ATORVASTATIN 10 MG TAB PO SCH (21:33)
--- NOTE | 2016-12-24 23:07 | CONS ---
Date/Time of Note Date/Time of Note DATE: 12/24/16 TIME: 23:06 Assessment/Plan Assessment/Plan Additional Assessment/Plan 1. Acute kidney injury, multifactorial, not improving despite being on IVF hydration, BUN/Cr persistently high ,.started on HD during this admission 2. Hyponatremia 3. Status post fall, which was a mechanical fall, but likely due to the hyponatremia. CT brain is negative. 4. Possible history of chronic kidney disease secondary to hypertensive nephrosclerosis. 5. History of hypertension. 6. History of gout. 7. History of hyperlipidemia. 8. Atrial fibrillation, rate controlled. 9. History of alcohol abuse. 10. Thrombocytopenia secondary to alcohol abuse. 11. sepsis due to UTI and bacteremia with Blood cx and urine Cx growing proteus PLAN: started on HD through right iJ danielle HD catheter , making good urine, but still has high BUn/Cr - no Plan for HD today, will reassess for HD in AM if doesn't require by tomorrow then we will plan to d/c his danielle Blood cx and Urine cx grew proteus - on IV abx - Follow up blood cx on 12/16/16 negative to date megace for apetite, remeron 15 mg pO QHS started on nector thick liquids will follow up Consultation Date/Type/Reason Admit Date/Time December 10, 2016 at 16:57 Type of Consultation: NEPHROLOGY Referring Provider: CLOVIS SHORE Exam/Review of Systems Vital Signs Vitals Vital Signs Date Time Temp Pulse Resp B/P Pulse Ox O2 Delivery O2 Flow Rate FiO2 12/24/16 20:16 70 12/24/16 20:06 98.2 20 166/74 100 12/24/16 07:57 Nasal Cannula 2.0 Intake and Output 12/23/16 12/23/16 12/24/16 15:00 23:00 07:00 Intake Total 2200 ml 150 ml Output Total 800 ml 1000 ml Balance 1400 ml -850 ml Results Result Diagram: 12/24/16 0658 12/24/16 0636 Results 24 hrs Laboratory Tests Test 12/24/16 01:46 12/24/16 04:32 12/24/16 06:36 12/24/16 06:58 Bedside Glucose 107 83 Sodium Level 140 Potassium Level 4.5 Chloride Level 106 Carbon Dioxide Level 21 Anion Gap 18 H Blood Urea Nitrogen 51 H Creatinine 6.12 H Glucose Level 96 Calcium Level 9.9 Phosphorus Level 6.3 H Magnesium Level 2.0 White Blood Count 10.4 # Red Blood Count 3.29 L Hemoglobin 9.9 L Hematocrit 30.2 L Mean Corpuscular Volume 91.8 Mean Corpuscular Hemoglobin 30.1 Mean Corpuscular Hemoglobin Concent 32.8 Red Cell Distribution Width 14.7 H Platelet Count 446 H Mean Platelet Volume 10.5 H Neutrophils % 83.1 H Lymphocytes % 8.3 L Monocytes % 6.1 Eosinophils % 1.5 Basophils % 0.4 Nucleated Red Blood Cells % 0.0 Neutrophils # 8.6 H Lymphocytes # 0.9 Monocytes # 0.6 Eosinophils # 0.2 Basophils # 0.0 Nucleated Red Blood Cells # 0.0 Test 12/24/16 12:14 12/24/16 17:28 12/24/16 19:59 Bedside Glucose 92 92 97 Medications Medications Current Medications Ondansetron HCl (Zofran Inj) 4 mg Q6H PRN IV NAUSEA AND/OR VOMITING Last administered on 12/24/16 12:08; Admin Dose 4 MG; Start 12/10/16 at 18:00 Acetaminophen (Tylenol Tab) 650 mg Q6H PRN PO PAIN LEVEL 1-3 OR FEVER; Start at 18:00 Morphine Sulfate (morphine) 2 mg Q4H PRN IV PAIN LEVEL 7-10 Last administered on 12/24/16 12:09; Admin Dose 2 MG; Start 12/10/16 at 18:00 Magnesium Hydroxide (Milk Of Mag) 30 ml DAILY PRN PO CONSTIPATION; Start at 18:00 Bisacodyl (Dulcolax) 5 mg DAILY PRN PO CONSTIPATION; Start 12/10/16 at 18:00 Famotidine (Pepcid) 20 mg DAILY PO Last administered on 12/24/16 09:05; Admin Dose 20 MG; Start 12/11/16 at 09:00 Hydralazine HCl (Apresoline) 10 mg Q6H PRN IV SBP>160 Last administered on 12/24 21:29; Admin Dose 10 MG; Start 12/10/16 at 18:00 Atorvastatin Calcium (Lipitor) 10 mg DAILY@21 PO Last administered on 21:33; Admin Dose 10 MG; Start 12/10/16 at 21:00 Lorazepam (Ativan) 1 mg Q2H PRN IV Anxiety Last administered on 12/24/16 04:16 ; Admin Dose 1 MG; Start 12/10/16 at 18:30 Heparin Sodium (Porcine) (Heparin (5000 Units/0.5 ml)) 5,000 unit BID SC Last administered on 12/24/16 21:50; Admin Dose 5,000 UNIT; Start 12/11/16 at 21:00 Chlordiazepoxide (Librium) 50 mg BID PO Last administered on 12/23/16 21:18; Admin Dose 50 MG; Start 12/11/16 at 21:00 Miscellaneous Information (* Miscellaneous Pharmacy Order) pharmacy to dose, g... ONCE XX ; Start 12/12/16 at 02:30 Acetaminophen/ Hydrocodone Bitart 2 tab 2 tab Q4H PRN PO pain Last administered on 12/21/16 09:28; Admin Dose 1 TAB; Start 12/13/16 at 10:30 Amiodarone HCl 900 mg/Dextrose 500 ml @ 0 mls/hr Q0M IV Last administered on 13:49; Admin Dose 33.4 MLS/HR; Start 12/14/16 at 13:00 Diltiazem HCl (Cardizem-D5W 125 Mg/125 ml Drip) 125 ml @ 5 mls/hr TITRATE IV ; Start 12/16/16 at 22:45 Megestrol Acetate (Megace Susp) 400 mg BID PO Last administered on 12/24/16 21 :38; Admin Dose 400 MG; Start 12/17/16 at 13:00 Amiodarone HCl (Cordarone) 400 mg BID PO Last administered on 12/24/16 21:33; Admin Dose 400 MG; Start 12/17/16 at 21:00 Metoprolol Tartrate (Lopressor) 50 mg BID PO Last administered on 12/24/16 21: 33; Admin Dose 50 MG; Start 12/17/16 at 21:00 Mirtazapine 15 mg 15 mg HS PO Last administered on 12/24/16 21:33; Admin Dose 15 MG; Start 12/18/16 at 21:00 Meropenem (Merrem 500 Mg/ 100 ml (Pmx)) 100 ml @ 200 mls/hr Q12 IVPB Last administered on 12/24/16 21:31; Admin Dose 200 MLS/HR; Start 12/19/16 at 21:00 Polyethylene Glycol (Miralax) 17 gm BID PO Last administered on 12/24/16 21:47 ; Admin Dose 17 GM; Start 12/21/16 at 21:00 Insulin Aspart (Novolog Insulin Pen) NOVOLOG *MILD* ALGORI... Q4 SC ; Start at 21:00 Miscellaneous Information 1 ea NOTE XX ; Start 12/21/16 at 17:30 Glucose (Glutose) 15 gm Q15M PRN PO DECREASED GLUCOSE; Start 12/21/16 at 17:30 Glucose (Glutose) 22.5 gm Q15M PRN PO DECREASED GLUCOSE; Start 12/21/16 at 17: 30 Dextrose (D50w Syringe) 25 ml Q15M PRN IV DECREASED GLUCOSE; Start 12/21/16 at 17:30 Dextrose (D50w Syringe) 50 ml Q15M PRN IV DECREASED GLUCOSE; Start 12/21/16 at 17:30 Glucagon (Glucagen) 1 mg Q15M PRN IM DECREASED GLUCOSE; Start 12/21/16 at 17:30 Glucose (Glutose) 15 gm Q15M PRN BUCCAL DECREASED GLUCOSE; Start 12/21/16 at 17 :30 Amlodipine Besylate (Norvasc) 5 mg DAILY PO Last administered on 12/24/16 12: 10; Admin Dose 5 MG; Start 12/24/16 at 10:30 MADELYN MIRANDA MD December 24, 2016 23:07
[2016-12-25] VITALS (11 sets, daily range): BP systolic 104–158; BP diastolic 50–73; PULSE 68–80; RESP 16–20
[2016-12-25] MEDS: INSULIN ASPART [NOVOLOG] 3 ML PEN SC SCH ×6 (01:00→21:00)
[2016-12-25 07:26] LABS: ADD SCAN DIFF NO
[2016-12-25 07:28] LABS: BASOPHILS % 0.5 % (0.0-2.0); EOSINOPHILS # 0.1 10^3/ul (0.0-0.5); EOSINOPHILS % 1.7 % (0.0-7.0); HEMATOCRIT 27.4 % (42.0-52.0); HEMOGLOBIN 8.9 g/dl (14.0-18.0); LYMPHOCYTES # 0.9 10^3/ul (0.8-2.9); LYMPHOCYTES % 11.9 % (15.0-51.0); MEAN CORPUSCULAR HEMOGLOBIN 30.1 pg (29.0-33.0); MEAN CORPUSCULAR HGB CONC 32.5 g/dl (32.0-37.0); MEAN CORPUSCULAR VOLUME 92.6 fl (82.0-101.0); MEAN PLATELET VOLUME 10.1 fl (7.4-10.4); MONOCYTE # 0.4 10^3/ul (0.3-0.9); MONOCYTES % 5.4 % (0.0-11.0); NEUTROPHILS % 80.1 % (39.0-77.0); PLATELET COUNT 408 10^3/UL (140-415); RED BLOOD COUNT 2.96 10^6/ul (4.70-6.10); RED CELL DISTRIBUTION WIDTH 14.9 % (11.5-14.5); WHITE BLOOD COUNT 7.5 10^3/ul (4.8-10.8)
[2016-12-25 07:51] LABS: MAGNESIUM 2.1 mg/dl (1.7-2.5); PHOSPHORUS 6.9 mg/dl (2.5-4.9)
[2016-12-25 08:01] LABS: CALCIUM 9.9 mg/dl (8.4-10.2); CREATININE 5.86 mg/dl (0.61-1.24); POTASSIUM 5.1 mmol/L (3.5-5.1)
[2016-12-25] MEDS: MEROPENEM 500 MG/100 ML (PMX) 100 ML IVPB SCH ×2 (08:45→21:23)
[2016-12-25] MEDS: POLYETHYLENE GLYCOL 17 GM PACKET PO SCH ×2 (08:46→21:22)
[2016-12-25] MEDS: HEPARIN 5,000 UNIT/0.5 ML VIAL SC SCH ×2 (08:46→21:25)
[2016-12-25] MEDS: CHLORDIAZEPOXIDE 25 MG CAP PO SCH ×2 (08:47→21:23)
[2016-12-25] MEDS: METOPROLOL 50 MG TAB PO SCH ×2 (08:47→21:23)
[2016-12-25] MEDS: AMIODARONE 200 MG TAB PO SCH ×2 (08:47→21:24)
[2016-12-25] MEDS: AMLODIPINE 5 MG TAB PO SCH (08:47)
[2016-12-25] MEDS: FAMOTIDINE 20 MG TAB PO SCH (08:47)
[2016-12-25] MEDS: MEGESTROL (40 MG/ML) 10ML CUP PO SCH ×2 (08:52→21:22)
--- NOTE | 2016-12-25 09:32 | PN ---
Date/Time of Note Date/Time of Note DATE: 12/25/16 TIME: 09:27 Assessment/Plan VTE Prophylaxis VTE Prophylaxis Intervention: heparin Lines/Catheters IV Catheter Type (from Nrs): Peripheral IV Urinary Cath still in place: Yes Reason Cath still needed: other (indicate) (monitor I&O) Assessment/Plan Chief Complaint/Hosp Course Acute assessment and plan 1. Acute renal insufficiency. Continue on HD. Monitor for electrolyte imbalance 2. Status post fall. Brain CT was negative for any acute intrarenal findings. Physical therapy following. Encourage participation with physical therapy 3. Essential hypertension. Continue antihypertensives and adjust as needed. Stable 4. Reported history of gout. No active issue at this time we will monitor for now. 5. Sepsis with underlying urinary tract infection/bacteremia with Proteus mirabilis. ABX per ID, repeat blood cx negative. Appears to be improved 6. Dyslipidemia. Continue statin medication. Stable 7. A. fib with RVR. cont amiodarone and telemetry monitoring. Rate controlled at this time 8. Alcohol abuse. Alcohol cessation was advised. 9. Normocytic anemia. Likely secondary to alcohol abuse. S&S of bleeding. Monitor for now. 10. Back pain. Thoracic and lumbar MRI with no evidence of compression or disc bulge. Continue with physical therapy and analgesics. DVT prophylaxis: Heparin Disposition plan: Continue dialysis. Consider possible PEG tube placement should patient have continued decrease oral intake Discussed plan of care with Dr. Carbajal Problems: Subjective 24 Hr Interval Summary Free Text/Dictation Resting at this time. Alert and oriented. No apparent distress seen. RN at bedside Exam/Review of Systems Vital Signs Vitals Vital Signs Date Time Temp Pulse Resp B/P Pulse Ox O2 Delivery O2 Flow Rate FiO2 12/25/16 08:25 75 12/25/16 07:57 97.6 16 158/69 98 12/24/16 19:50 Nasal Cannula 2.0 Intake and Output 12/24/16 12/24/16 12/25/16 15:00 23:00 07:00 Intake Total 900 ml 150 ml Output Total 1000 ml Balance 900 ml -850 ml Exam Constitutional: alert, oriented Head: normocephalic Neck: supple, No jvd Respiratory: normal air movement, other (Minimally congested upper airways) Cardiovascular: regular rate and rhythm Gastrointestinal: non-tender, soft Musculoskeletal: No nl gait and stance Extremities: normal pulses Neurological: nl mental status, nl speech Skin: nl turgor Results Result Diagram: 12/25/16 0640 12/25/16 0640 Results 24 hrs Laboratory Tests Test 12/24/16 12:14 12/24/16 17:28 12/24/16 19:59 12/25/16 01:08 Bedside Glucose 92 92 97 87 Test 12/25/16 06:04 12/25/16 06:40 12/25/16 08:02 Bedside Glucose 93 100 White Blood Count 7.5 # Red Blood Count 2.96 L Hemoglobin 8.9 L Hematocrit 27.4 L Mean Corpuscular Volume 92.6 Mean Corpuscular Hemoglobin 30.1 Mean Corpuscular Hemoglobin Concent 32.5 Red Cell Distribution Width 14.9 H Platelet Count 408 Mean Platelet Volume 10.1 Neutrophils % 80.1 H Lymphocytes % 11.9 L Monocytes % 5.4 Eosinophils % 1.7 Basophils % 0.5 Nucleated Red Blood Cells % 0.0 Neutrophils # 6.0 Lymphocytes # 0.9 Monocytes # 0.4 Eosinophils # 0.1 Basophils # 0.0 Nucleated Red Blood Cells # 0.0 Sodium Level 139 Potassium Level 5.1 Chloride Level 109 Carbon Dioxide Level 24 Anion Gap 11 # Blood Urea Nitrogen 51 H Creatinine 5.86 H Glucose Level 96 Calcium Level 9.9 Phosphorus Level 6.9 H Magnesium Level 2.1 Medications Medications Current Medications Ondansetron HCl (Zofran Inj) 4 mg Q6H PRN IV NAUSEA AND/OR VOMITING Last administered on 12/24/16 12:08; Admin Dose 4 MG; Start 12/10/16 at 18:00 Acetaminophen (Tylenol Tab) 650 mg Q6H PRN PO PAIN LEVEL 1-3 OR FEVER; Start at 18:00 Morphine Sulfate (morphine) 2 mg Q4H PRN IV PAIN LEVEL 7-10 Last administered on 12/24/16 12:09; Admin Dose 2 MG; Start 12/10/16 at 18:00 Magnesium Hydroxide (Milk Of Mag) 30 ml DAILY PRN PO CONSTIPATION; Start at 18:00 Bisacodyl (Dulcolax) 5 mg DAILY PRN PO CONSTIPATION; Start 12/10/16 at 18:00 Famotidine (Pepcid) 20 mg DAILY PO Last administered on 12/25/16 08:47; Admin Dose 20 MG; Start 12/11/16 at 09:00 Hydralazine HCl (Apresoline) 10 mg Q6H PRN IV SBP>160 Last administered on 12/24 21:29; Admin Dose 10 MG; Start 12/10/16 at 18:00 Atorvastatin Calcium (Lipitor) 10 mg DAILY@21 PO Last administered on 21:33; Admin Dose 10 MG; Start 12/10/16 at 21:00 Lorazepam (Ativan) 1 mg Q2H PRN IV Anxiety Last administered on 12/24/16 04:16 ; Admin Dose 1 MG; Start 12/10/16 at 18:30 Heparin Sodium (Porcine) (Heparin (5000 Units/0.5 ml)) 5,000 unit BID SC Last administered on 12/25/16 08:46; Admin Dose 5,000 UNIT; Start 12/11/16 at 21:00 Chlordiazepoxide (Librium) 50 mg BID PO Last administered on 12/25/16 08:47; Admin Dose 50 MG; Start 12/11/16 at 21:00 Miscellaneous Information (* Miscellaneous Pharmacy Order) pharmacy to dose, g... ONCE XX ; Start 12/12/16 at 02:30 Acetaminophen/ Hydrocodone Bitart 2 tab 2 tab Q4H PRN PO pain Last administered on 12/21/16 09:28; Admin Dose 1 TAB; Start 12/13/16 at 10:30 Amiodarone HCl 900 mg/Dextrose 500 ml @ 0 mls/hr Q0M IV Last administered on 13:49; Admin Dose 33.4 MLS/HR; Start 12/14/16 at 13:00 Diltiazem HCl (Cardizem-D5W 125 Mg/125 ml Drip) 125 ml @ 5 mls/hr TITRATE IV ; Start 12/16/16 at 22:45 Megestrol Acetate (Megace Susp) 400 mg BID PO Last administered on 12/25/16 08 :52; Admin Dose 400 MG; Start 12/17/16 at 13:00 Amiodarone HCl (Cordarone) 400 mg BID PO Last administered on 12/25/16 08:47; Admin Dose 400 MG; Start 12/17/16 at 21:00 Metoprolol Tartrate (Lopressor) 50 mg BID PO Last administered on 12/25/16 08: 47; Admin Dose 50 MG; Start 12/17/16 at 21:00 Mirtazapine 15 mg 15 mg HS PO Last administered on 12/24/16 21:33; Admin Dose 15 MG; Start 12/18/16 at 21:00 Meropenem (Merrem 500 Mg/ 100 ml (Pmx)) 100 ml @ 200 mls/hr Q12 IVPB Last administered on 12/25/16 08:45; Admin Dose 200 MLS/HR; Start 12/19/16 at 21:00 Polyethylene Glycol (Miralax) 17 gm BID PO Last administered on 12/25/16 08:46 ; Admin Dose 17 GM; Start 12/21/16 at 21:00 Insulin Aspart (Novolog Insulin Pen) NOVOLOG *MILD* ALGORI... Q4 SC ; Start at 21:00 Miscellaneous Information 1 ea NOTE XX ; Start 12/21/16 at 17:30 Glucose (Glutose) 15 gm Q15M PRN PO DECREASED GLUCOSE; Start 12/21/16 at 17:30 Glucose (Glutose) 22.5 gm Q15M PRN PO DECREASED GLUCOSE; Start 12/21/16 at 17: 30 Dextrose (D50w Syringe) 25 ml Q15M PRN IV DECREASED GLUCOSE; Start 12/21/16 at 17:30 Dextrose (D50w Syringe) 50 ml Q15M PRN IV DECREASED GLUCOSE; Start 12/21/16 at 17:30 Glucagon (Glucagen) 1 mg Q15M PRN IM DECREASED GLUCOSE; Start 12/21/16 at 17:30 Glucose (Glutose) 15 gm Q15M PRN BUCCAL DECREASED GLUCOSE; Start 12/21/16 at 17 :30 Amlodipine Besylate (Norvasc) 5 mg DAILY PO Last administered on 12/25/16 08: 47; Admin Dose 5 MG; Start 12/24/16 at 10:30 SANJAY ANDREA December 25, 2016 09:31
--- NOTE | 2016-12-25 14:01 | CONS ---
Date/Time of Note Date/Time of Note DATE: 12/25/16 TIME: 14:00 Assessment/Plan Assessment/Plan Additional Assessment/Plan 1. Acute kidney injury, multifactorial, not improving despite being on IVF hydration, BUN/Cr persistently high ,.started on HD during this admission 2. Hyponatremia 3. Status post fall, which was a mechanical fall, but likely due to the hyponatremia. CT brain is negative. 4. Possible history of chronic kidney disease secondary to hypertensive nephrosclerosis. 5. History of hypertension. 6. History of gout. 7. History of hyperlipidemia. 8. Atrial fibrillation, rate controlled. 9. History of alcohol abuse. 10. Thrombocytopenia secondary to alcohol abuse. 11. sepsis due to UTI and bacteremia with Blood cx and urine Cx growing proteus PLAN: started on HD through right iJ danielle HD catheter , making good urine, but still has high BUn/Cr - no Plan for HD today, will reassess for HD in AM Blood cx and Urine cx grew proteus - on IV abx - Follow up blood cx on 12/16/16 negative to date megace for apetite, remeron 15 mg pO QHS started on nector thick liquids will follow up Consultation Date/Type/Reason Admit Date/Time December 10, 2016 at 16:57 Type of Consultation: NEPHROLOGY Referring Provider: CLOVIS SHORE 24 HR Interval Summary Free Text/Dictation urine output 1 liter, BP stable Exam/Review of Systems Vital Signs Vitals Vital Signs Date Time Temp Pulse Resp B/P Pulse Ox O2 Delivery O2 Flow Rate FiO2 12/25/16 12:13 69 12/25/16 11:40 97.4 16 153/71 95 12/25/16 07:30 Nasal Cannula 2.0 Intake and Output 12/24/16 12/24/16 12/25/16 15:00 23:00 07:00 Intake Total 900 ml 150 ml Output Total 1000 ml Balance 900 ml -850 ml Results Result Diagram: 12/25/16 0640 12/25/16 0640 Results 24 hrs Laboratory Tests Test 12/24/16 17:28 12/24/16 19:59 12/25/16 01:08 12/25/16 06:04 Bedside Glucose 92 97 87 93 Test 12/25/16 06:40 12/25/16 08:02 12/25/16 12:21 White Blood Count 7.5 # Red Blood Count 2.96 L Hemoglobin 8.9 L Hematocrit 27.4 L Mean Corpuscular Volume 92.6 Mean Corpuscular Hemoglobin 30.1 Mean Corpuscular Hemoglobin Concent 32.5 Red Cell Distribution Width 14.9 H Platelet Count 408 Mean Platelet Volume 10.1 Neutrophils % 80.1 H Lymphocytes % 11.9 L Monocytes % 5.4 Eosinophils % 1.7 Basophils % 0.5 Nucleated Red Blood Cells % 0.0 Neutrophils # 6.0 Lymphocytes # 0.9 Monocytes # 0.4 Eosinophils # 0.1 Basophils # 0.0 Nucleated Red Blood Cells # 0.0 Sodium Level 139 Potassium Level 5.1 Chloride Level 109 Carbon Dioxide Level 24 Anion Gap 11 # Blood Urea Nitrogen 51 H Creatinine 5.86 H Glucose Level 96 Calcium Level 9.9 Phosphorus Level 6.9 H Magnesium Level 2.1 Bedside Glucose 100 95 Medications Medications Current Medications Ondansetron HCl (Zofran Inj) 4 mg Q6H PRN IV NAUSEA AND/OR VOMITING Last administered on 12/24/16 12:08; Admin Dose 4 MG; Start 12/10/16 at 18:00 Magnesium Hydroxide (Milk Of Mag) 30 ml DAILY PRN PO CONSTIPATION; Start at 18:00 Bisacodyl (Dulcolax) 5 mg DAILY PRN PO CONSTIPATION; Start 12/10/16 at 18:00 Famotidine (Pepcid) 20 mg DAILY PO Last administered on 12/25/16 08:47; Admin Dose 20 MG; Start 12/11/16 at 09:00 Hydralazine HCl (Apresoline) 10 mg Q6H PRN IV SBP>160 Last administered on 12/24 21:29; Admin Dose 10 MG; Start 12/10/16 at 18:00 Atorvastatin Calcium (Lipitor) 10 mg DAILY@21 PO Last administered on 21:33; Admin Dose 10 MG; Start 12/10/16 at 21:00 Heparin Sodium (Porcine) (Heparin (5000 Units/0.5 ml)) 5,000 unit BID SC Last administered on 12/25/16 08:46; Admin Dose 5,000 UNIT; Start 12/11/16 at 21:00 Chlordiazepoxide (Librium) 50 mg BID PO Last administered on 12/25/16 08:47; Admin Dose 50 MG; Start 12/11/16 at 21:00 Miscellaneous Information pharmacy to dose, g... ONCE XX ; Start 12/12/16 at 02: 30 Amiodarone HCl 900 mg/Dextrose 500 ml @ 0 mls/hr Q0M IV Last administered on 13:49; Admin Dose 33.4 MLS/HR; Start 12/14/16 at 13:00 Diltiazem HCl (Cardizem-D5W 125 Mg/125 ml Drip) 125 ml @ 5 mls/hr TITRATE IV ; Start 12/16/16 at 22:45 Megestrol Acetate (Megace Susp) 400 mg BID PO Last administered on 12/25/16 08 :52; Admin Dose 400 MG; Start 12/17/16 at 13:00 Amiodarone HCl (Cordarone) 400 mg BID PO Last administered on 12/25/16 08:47; Admin Dose 400 MG; Start 12/17/16 at 21:00 Metoprolol Tartrate 50 mg 50 mg BID PO Last administered on 12/25/16 08:47; Admin Dose 50 MG; Start 12/17/16 at 21:00 Meropenem (Merrem 500 Mg/ 100 ml (Pmx)) 100 ml @ 200 mls/hr Q12 IVPB Last administered on 12/25/16 08:45; Admin Dose 200 MLS/HR; Start 12/19/16 at 21:00 Polyethylene Glycol (Miralax) 17 gm BID PO Last administered on 12/25/16 08:46 ; Admin Dose 17 GM; Start 12/21/16 at 21:00 Insulin Aspart (Novolog Insulin Pen) NOVOLOG *MILD* ALGORI... Q4 SC ; Start at 21:00 Miscellaneous Information 1 ea NOTE XX ; Start 12/21/16 at 17:30 Glucose (Glutose) 15 gm Q15M PRN PO DECREASED GLUCOSE; Start 12/21/16 at 17:30 Glucose (Glutose) 22.5 gm Q15M PRN PO DECREASED GLUCOSE; Start 12/21/16 at 17: 30 Dextrose (D50w Syringe) 25 ml Q15M PRN IV DECREASED GLUCOSE; Start 12/21/16 at 17:30 Dextrose (D50w Syringe) 50 ml Q15M PRN IV DECREASED GLUCOSE; Start 12/21/16 at 17:30 Glucagon (Glucagen) 1 mg Q15M PRN IM DECREASED GLUCOSE; Start 12/21/16 at 17:30 Glucose (Glutose) 15 gm Q15M PRN BUCCAL DECREASED GLUCOSE; Start 12/21/16 at 17 :30 Amlodipine Besylate (Norvasc) 5 mg DAILY PO Last administered on 12/25/16t 08: 47; Admin Dose 5 MG; Start 12/24/16 at 10:30 Oxycodone HCl (Roxicodone) 10 mg Q6H PRN PO PAIN LEVEL 7-10; Start 12/25/16 at 13:00 MADELYN MIRANDA MD December 25, 2016 14:01
--- NOTE | 2016-12-25 17:20 | CONS ---
Date/Time of Note Date/Time of Note DATE: 12/25/16 TIME: 17:20 Assessment/Plan Assessment/Plan Chief Complaint/Hosp Course ID PROGRESS NOTE ABX DAY # Merrem s/p Zyvox 24H INTERVAL SUMMARY * Obese M lethargic, calm, looks comfortable, without dyspnea, no distress noted * SUBJECTIVE: No acute events per report, no fevers, WBC normalized * MICROBIOLOGY: Blood and urine culture growing Proteus mirabilis susceptible to all antibiotics. * Indwelling: RIJ danielle 12/13 PHYSICAL EXAMINATION: GENERAL: VSS, NAD, no fever HEENT: Unremarkable NECK: Trach-> midline CHEST: Equal chest rise bilaterally, without dyspnea on observation HEART: Pulse RRR ABDOMEN: Soft EXTREMITIES: Warm, SKIN: Warm, dry ID ASSESSMENT: 71 yo M w/ admitted with: 1. Sepsis with acute encephalopathy 2. Proteus mirabilis urinary tract infection with bacteremia. 3. Acute kidney failure, possible chronic kidney disease. 4. HCAP, poss aspiration. 5. Hypertension. 6. Atrial fibrillation. 7. History of alcohol abuse. 8. 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 ABX ALLERGIES: PCN, ADHESIVE, LATEX CURRENT ABX: # Merrem s/p Zyvox ID RECOMMENDATIONS: 1. Continue current ABX over the weekend. 2. ID team will follow . Problems: Consultation Date/Type/Reason Admit Date/Time December 10, 2016 at 16:57 Initial Consult Date Type of Consultation: ID Referring Provider: CLOVIS SHORE Exam/Review of Systems Vital Signs Vitals Vital Signs Date Time Temp Pulse Resp B/P Pulse Ox O2 Delivery O2 Flow Rate FiO2 12/25/16 16:07 80 12/25/16 15:35 97.7 16 132/73 97 12/25/16 07:30 Nasal Cannula 2.0 Intake and Output 12/24/16 12/24/16 12/25/16 15:00 23:00 07:00 Intake Total 900 ml 150 ml Output Total 1000 ml Balance 900 ml -850 ml Results Result Diagram: 12/25/16 0640 12/25/16 0640 Results 24 hrs Laboratory Tests Test 12/24/16 17:28 12/24/16 19:59 12/25/16 01:08 12/25/16 06:04 Bedside Glucose 92 97 87 93 Test 12/25/16 06:40 12/25/16 08:02 12/25/16 12:21 White Blood Count 7.5 # Red Blood Count 2.96 L Hemoglobin 8.9 L Hematocrit 27.4 L Mean Corpuscular Volume 92.6 Mean Corpuscular Hemoglobin 30.1 Mean Corpuscular Hemoglobin Concent 32.5 Red Cell Distribution Width 14.9 H Platelet Count 408 Mean Platelet Volume 10.1 Neutrophils % 80.1 H Lymphocytes % 11.9 L Monocytes % 5.4 Eosinophils % 1.7 Basophils % 0.5 Nucleated Red Blood Cells % 0.0 Neutrophils # 6.0 Lymphocytes # 0.9 Monocytes # 0.4 Eosinophils # 0.1 Basophils # 0.0 Nucleated Red Blood Cells # 0.0 Sodium Level 139 Potassium Level 5.1 Chloride Level 109 Carbon Dioxide Level 24 Anion Gap 11 # Blood Urea Nitrogen 51 H Creatinine 5.86 H Glucose Level 96 Calcium Level 9.9 Phosphorus Level 6.9 H Magnesium Level 2.1 Bedside Glucose 100 95 Medications Medications Current Medications Ondansetron HCl (Zofran Inj) 4 mg Q6H PRN IV NAUSEA AND/OR VOMITING Last administered on 12/24/16 12:08; Admin Dose 4 MG; Start 12/10/16 at 18:00 Magnesium Hydroxide (Milk Of Mag) 30 ml DAILY PRN PO CONSTIPATION; Start at 18:00 Bisacodyl (Dulcolax) 5 mg DAILY PRN PO CONSTIPATION; Start 12/10/16 at 18:00 Famotidine (Pepcid) 20 mg DAILY PO Last administered on 12/25/16 08:47; Admin Dose 20 MG; Start 12/11/16 at 09:00 Hydralazine HCl (Apresoline) 10 mg Q6H PRN IV SBP>160 Last administered on 12/24 21:29; Admin Dose 10 MG; Start 12/10/16 at 18:00 Atorvastatin Calcium (Lipitor) 10 mg DAILY@21 PO Last administered on 21:33; Admin Dose 10 MG; Start 12/10/16 at 21:00 Heparin Sodium (Porcine) (Heparin (5000 Units/0.5 ml)) 5,000 unit BID SC Last administered on 12/25/16 08:46; Admin Dose 5,000 UNIT; Start 12/11/16 at 21:00 Chlordiazepoxide (Librium) 50 mg BID PO Last administered on 12/25/16 08:47; Admin Dose 50 MG; Start 12/11/16 at 21:00 Miscellaneous Information pharmacy to dose, g... ONCE XX ; Start 12/12/16 at 02: 30 Amiodarone HCl 900 mg/Dextrose 500 ml @ 0 mls/hr Q0M IV Last administered on 13:49; Admin Dose 33.4 MLS/HR; Start 12/14/16 at 13:00 Diltiazem HCl (Cardizem-D5W 125 Mg/125 ml Drip) 125 ml @ 5 mls/hr TITRATE IV ; Start 12/16/16 at 22:45 Megestrol Acetate (Megace Susp) 400 mg BID PO Last administered on 12/25/16 08 :52; Admin Dose 400 MG; Start 12/17/16 at 13:00 Amiodarone HCl (Cordarone) 400 mg BID PO Last administered on 12/25/16 08:47; Admin Dose 400 MG; Start 12/17/16 at 21:00 Metoprolol Tartrate 50 mg 50 mg BID PO Last administered on 12/25/16 08:47; Admin Dose 50 MG; Start 12/17/16 at 21:00 Meropenem (Merrem 500 Mg/ 100 ml (Pmx)) 100 ml @ 200 mls/hr Q12 IVPB Last administered on 12/25/16 08:45; Admin Dose 200 MLS/HR; Start 12/19/16 at 21:00 Polyethylene Glycol (Miralax) 17 gm BID PO Last administered on 12/25/16 08:46 ; Admin Dose 17 GM; Start 12/21/16 at 21:00 Insulin Aspart (Novolog Insulin Pen) NOVOLOG *MILD* ALGORI... Q4 SC ; Start at 21:00 Miscellaneous Information 1 ea NOTE XX ; Start 12/21/16 at 17:30 Glucose (Glutose) 15 gm Q15M PRN PO DECREASED GLUCOSE; Start 12/21/16 at 17:30 Glucose (Glutose) 22.5 gm Q15M PRN PO DECREASED GLUCOSE; Start 12/21/16 at 17: 30 Dextrose (D50w Syringe) 25 ml Q15M PRN IV DECREASED GLUCOSE; Start 12/21/16 at 17:30 Dextrose (D50w Syringe) 50 ml Q15M PRN IV DECREASED GLUCOSE; Start 12/21/16 at 17:30 Glucagon (Glucagen) 1 mg Q15M PRN IM DECREASED GLUCOSE; Start 12/21/16 at 17:30 Glucose (Glutose) 15 gm Q15M PRN BUCCAL DECREASED GLUCOSE; Start 12/21/16 at 17 :30 Amlodipine Besylate (Norvasc) 5 mg DAILY PO Last administered on 12/25/16t 08: 47; Admin Dose 5 MG; Start 12/24/16 at 10:30 Oxycodone HCl (Roxicodone) 10 mg Q6H PRN PO PAIN LEVEL 7-10; Start 12/25/16 at 13:00 RHONDA PETERSON NP December 25, 2016 17:20
[2016-12-25] MEDS: oxyCODONE 5 MG TAB PO PRN (17:32)
[2016-12-25] MEDS: ATORVASTATIN 10 MG TAB PO SCH (21:22)
[2016-12-26] VITALS (12 sets, daily range): BP systolic 147–180; BP diastolic 65–79; PULSE 73–82; RESP 14–18
[2016-12-26] MEDS: INSULIN ASPART [NOVOLOG] 3 ML PEN SC SCH ×6 (01:00→20:48)
[2016-12-26] MEDS: oxyCODONE 5 MG TAB PO PRN ×2 (04:16→16:17)
[2016-12-26] MEDS: hydrALAzine 20 MG INJ IV PRN (04:16)
[2016-12-26] MEDS: POLYETHYLENE GLYCOL 17 GM PACKET PO SCH ×2 (08:49→20:44)
[2016-12-26] MEDS: MEGESTROL (40 MG/ML) 10ML CUP PO SCH ×2 (08:49→20:44)
[2016-12-26] MEDS: FAMOTIDINE 20 MG TAB PO SCH (08:50)
[2016-12-26] MEDS: AMIODARONE 200 MG TAB PO SCH ×2 (08:50→20:45)
[2016-12-26] MEDS: AMLODIPINE 5 MG TAB PO SCH (08:50)
[2016-12-26] MEDS: CHLORDIAZEPOXIDE 25 MG CAP PO SCH ×2 (08:50→20:45)
[2016-12-26] MEDS: METOPROLOL 50 MG TAB PO SCH ×2 (08:51→20:45)
[2016-12-26] MEDS: HEPARIN 5,000 UNIT/0.5 ML VIAL SC SCH ×2 (08:52→20:47)
[2016-12-26] MEDS: MEROPENEM 500 MG/100 ML (PMX) 100 ML IVPB SCH ×3 (09:00→20:43)
--- NOTE | 2016-12-26 10:14 | PN ---
Date/Time of Note Date/Time of Note DATE: 12/26/16 TIME: 10:12 Assessment/Plan VTE Prophylaxis VTE Prophylaxis Intervention: heparin Lines/Catheters IV Catheter Type (from [facility]): Peripheral IV Central line still needed: Yes Urinary Cath still in place: Yes Reason Cath still needed: other (indicate) Assessment/Plan Chief Complaint/Hosp Course 1. Acute kidney injury. Etiology unclear. Continue IV hydration. Nephrology following. Avoid nephrotoxic medications. The patient was temporarily started on hemodialysis. 2. Status post fall. Brain CT negative for any acute intracranial findings. Physical therapy evaluation. 3. Essential hypertension. Continue routine antihypertensives and as needed antihypertensives for any systolic blood pressure readings greater than 160 mercury. 4. Gout. Uric acid levels within normal limits. 5. Sepsis with underlying urinary tract infection and gram-negative bacteremia. The patient on antibiotics as per Infectious Disease. No evidence of septic shock. 6. Hyperlipidemia. Continue statins. Fasting lipid panel suboptimal. 7. Paroxysmal atrial fibrillation. The patient will be continued on beta blockers and amiodarone.. Currently in sinus rhythm. Cardiology following. 8. Alcohol abuse. Continue daily banana bag. Monitor for any alcohol withdrawal delirium. 9. Dysphagia. Continue aspiration precautions. Diet as per speech therapy. 10. Acute encephalopathy. Probably metabolic in origin. Monitor. Brain CT scan negative for any acute findings. 11. Fluids, electrolytes, and nutrition. Low-cholesterol diet. 12. DVT prophylaxis. Subcutaneous heparin. 13. Gastrointestinal prophylaxis. Histamine 2 receptor blockers. 14. Plan. Continue antibiotics as per infectious diseases. Monitor renal function closely. Await further recommendations from nephrology. Continue physical therapy if the patient is awake. Family planning on a PEG tube placement because of poor oral intake. Case discussed with Dr. Carbajal. Problems: Subjective 24 Hr Interval Summary Free Text/Dictation Patient more awake today. The patient verbalized that he wants to go home Exam/Review of Systems Vital Signs Vitals Vital Signs Date Time Temp Pulse Resp B/P Pulse Ox O2 Delivery O2 Flow Rate FiO2 12/26/16 08:03 78 12/26/16 07:44 97.6 18 161/68 96 12/25/16 21:20 Nasal Cannula 2.0 Intake and Output 12/25/16 12/25/16 12/26/16 15:00 23:00 07:00 Intake Total 300 ml 150 ml Output Total 700 ml 1000 ml Balance -400 ml -850 ml Exam GENERAL: This is a well-built, well-nourished male patient lying in bed in no apparent distress. HEENT: Head normocephalic and atraumatic. Eyes: Anicteric sclerae. Conjunctivae clear. ENT: Nasal septum is midline. Oral mucosa is dry. NECK: Supple. No JVD noticed. RESPIRATORY: Bilaterally clear to auscultation. No adventitious breath sounds. No use of accessory muscles of respiration. CARDIAC: Regular rate and rhythm. S1-S2 heard. ABDOMEN: Soft, nontender, nondistended. Bowel sounds positive in all 4 quadrants. GENITOURINARY: Deferred. EXTREMITIES: No cyanosis, no clubbing, no edema. Peripheral pulses are palpable. NEUROLOGIC: The patient is awake and alert. Results Result Diagram: 12/25/16 0640 12/25/16 0640 Results 24 hrs Laboratory Tests Test 12/25/16 12:21 12/25/16 17:29 12/25/16 21:20 12/26/16 00:08 Bedside Glucose 95 125 81 82 Test 12/26/16 04:19 12/26/16 08:11 Bedside Glucose 78 81 Medications Medications Current Medications Ondansetron HCl (Zofran Inj) 4 mg Q6H PRN IV NAUSEA AND/OR VOMITING Last administered on 12/24/16 12:08; Admin Dose 4 MG; Start 12/10/16 at 18:00 Magnesium Hydroxide (Milk Of Mag) 30 ml DAILY PRN PO CONSTIPATION; Start at 18:00 Bisacodyl (Dulcolax) 5 mg DAILY PRN PO CONSTIPATION; Start 12/10/16 at 18:00 Famotidine (Pepcid) 20 mg DAILY PO Last administered on 12/26/16 08:50; Admin Dose 20 MG; Start 12/11/16 at 09:00 Hydralazine HCl (Apresoline) 10 mg Q6H PRN IV SBP>160 Last administered on 12/26 04:16; Admin Dose 10 MG; Start 12/10/16 at 18:00 Atorvastatin Calcium (Lipitor) 10 mg DAILY@21 PO Last administered on 21:22; Admin Dose 10 MG; Start 12/10/16 at 21:00 Heparin Sodium (Porcine) (Heparin (5000 Units/0.5 ml)) 5,000 unit BID SC Last administered on 12/26/16 08:52; Admin Dose 5,000 UNIT; Start 12/11/16 at 21:00 Chlordiazepoxide (Librium) 50 mg BID PO Last administered on 12/26/16 08:50; Admin Dose 50 MG; Start 12/11/16 at 21:00 Miscellaneous Information pharmacy to dose, g... ONCE XX ; Start 12/12/16 at 02: 30 Amiodarone HCl 900 mg/Dextrose 500 ml @ 0 mls/hr Q0M IV Last administered on 13:49; Admin Dose 33.4 MLS/HR; Start 12/14/16 at 13:00 Diltiazem HCl (Cardizem-D5W 125 Mg/125 ml Drip) 125 ml @ 5 mls/hr TITRATE IV ; Start 12/16/16 at 22:45 Megestrol Acetate (Megace Susp) 400 mg BID PO Last administered on 12/26/16 08 :49; Admin Dose 400 MG; Start 12/17/16 at 13:00 Amiodarone HCl (Cordarone) 400 mg BID PO Last administered on 12/26/16 08:50; Admin Dose 400 MG; Start 12/17/16 at 21:00 Metoprolol Tartrate 50 mg 50 mg BID PO Last administered on 12/26/16 08:51; Admin Dose 50 MG; Start 12/17/16 at 21:00 Meropenem (Merrem 500 Mg/ 100 ml (Pmx)) 100 ml @ 200 mls/hr Q12 IVPB Last administered on 12/25/16 21:23; Admin Dose 200 MLS/HR; Start 12/19/16 at 21:00 Polyethylene Glycol (Miralax) 17 gm BID PO Last administered on 12/26/16 08:49 ; Admin Dose 17 GM; Start 12/21/16 at 21:00 Insulin Aspart (Novolog Insulin Pen) NOVOLOG *MILD* ALGORI... Q4 SC ; Start at 21:00 Miscellaneous Information 1 ea NOTE XX ; Start 12/21/16 at 17:30 Glucose (Glutose) 15 gm Q15M PRN PO DECREASED GLUCOSE; Start 12/21/16 at 17:30 Glucose (Glutose) 22.5 gm Q15M PRN PO DECREASED GLUCOSE; Start 12/21/16 at 17: 30 Dextrose (D50w Syringe) 25 ml Q15M PRN IV DECREASED GLUCOSE; Start 12/21/16 at 17:30 Dextrose (D50w Syringe) 50 ml Q15M PRN IV DECREASED GLUCOSE; Start 12/21/16 at 17:30 Glucagon (Glucagen) 1 mg Q15M PRN IM DECREASED GLUCOSE; Start 12/21/16 at 17:30 Glucose (Glutose) 15 gm Q15M PRN BUCCAL DECREASED GLUCOSE; Start 12/21/16 at 17 :30 Amlodipine Besylate (Norvasc) 5 mg DAILY PO Last administered on 12/26/16 08: 50; Admin Dose 5 MG; Start 12/24/16 at 10:30 Oxycodone HCl (Roxicodone) 10 mg Q6H PRN PO PAIN LEVEL 7-10 Last administered on 12/26/16 04:16; Admin Dose 10 MG; Start 12/25/16 at 13:00 JACK JENNINGS NP December 26, 2016 10:14
--- NOTE | 2016-12-26 10:37 | CONS ---
Date/Time of Note Date/Time of Note DATE: 12/26/16 TIME: 10:36 Assessment/Plan Assessment/Plan Chief Complaint/Hosp Course ID PROGRESS NOTE ABX DAY # Merrem s/p Zyvox 24H INTERVAL SUMMARY * No new issues overnight -- pt is resting comfortably, calm, lethargic, per notes family opting for PEG * MICROBIOLOGY: Blood and urine culture growing Proteus mirabilis susceptible to all antibiotics. * Indwelling: RIJ danielle 12/13 PHYSICAL EXAMINATION: GENERAL: VSS, NAD, no fever HEENT: Unremarkable NECK: Trach-> midline CHEST: Equal chest rise bilaterally, without dyspnea on observation HEART: Pulse RRR ABDOMEN: Soft EXTREMITIES: Warm, SKIN: Warm, dry ID ASSESSMENT: 71 yo M w/ admitted with: 1. Sepsis with acute encephalopathy 2. Proteus mirabilis urinary tract infection with bacteremia. 3. Acute kidney failure, possible chronic kidney disease. 4. HCAP, poss aspiration. 5. Hypertension. 6. Atrial fibrillation. 7. History of alcohol abuse. 8. 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 ABX ALLERGIES: PCN, ADHESIVE, LATEX CURRENT ABX: # Merrem s/p Zyvox ID RECOMMENDATIONS: 1. Continue current ABX over the weekend. 2. PEG planned per notes Problems: Consultation Date/Type/Reason Admit Date/Time December 10, 2016 at 16:57 Type of Consultation: ID Referring Provider: CLOVIS SHORE Exam/Review of Systems Vital Signs Vitals Vital Signs Date Time Temp Pulse Resp B/P Pulse Ox O2 Delivery O2 Flow Rate FiO2 12/26/16 08:03 78 12/26/16 07:44 97.6 18 161/68 96 12/25/16 21:20 Nasal Cannula 2.0 Intake and Output 12/25/16 12/25/16 12/26/16 15:00 23:00 07:00 Intake Total 300 ml 150 ml Output Total 700 ml 1000 ml Balance -400 ml -850 ml Results Result Diagram: 12/25/16 0640 12/25/16 0640 Results 24 hrs Laboratory Tests Test 12/25/16 12:21 12/25/16 17:29 12/25/16 21:20 12/26/16 00:08 Bedside Glucose 95 125 81 82 Test 12/26/16 04:19 12/26/16 08:11 Bedside Glucose 78 81 Medications Medications Current Medications Ondansetron HCl (Zofran Inj) 4 mg Q6H PRN IV NAUSEA AND/OR VOMITING Last administered on 12/24/16 12:08; Admin Dose 4 MG; Start 12/10/16 at 18:00 Magnesium Hydroxide (Milk Of Mag) 30 ml DAILY PRN PO CONSTIPATION; Start at 18:00 Bisacodyl (Dulcolax) 5 mg DAILY PRN PO CONSTIPATION; Start 12/10/16 at 18:00 Famotidine (Pepcid) 20 mg DAILY PO Last administered on 12/26/16 08:50; Admin Dose 20 MG; Start 12/11/16 at 09:00 Hydralazine HCl (Apresoline) 10 mg Q6H PRN IV SBP>160 Last administered on 12/26 04:16; Admin Dose 10 MG; Start 12/10/16 at 18:00 Atorvastatin Calcium (Lipitor) 10 mg DAILY@21 PO Last administered on 21:22; Admin Dose 10 MG; Start 12/10/16 at 21:00 Heparin Sodium (Porcine) (Heparin (5000 Units/0.5 ml)) 5,000 unit BID SC Last administered on 12/26/16 08:52; Admin Dose 5,000 UNIT; Start 12/11/16 at 21:00 Chlordiazepoxide (Librium) 50 mg BID PO Last administered on 12/26/16 08:50; Admin Dose 50 MG; Start 12/11/16 at 21:00 Miscellaneous Information pharmacy to dose, g... ONCE XX ; Start 12/12/16 at 02: 30 Amiodarone HCl 900 mg/Dextrose 500 ml @ 0 mls/hr Q0M IV Last administered on 13:49; Admin Dose 33.4 MLS/HR; Start 12/14/16 at 13:00 Diltiazem HCl (Cardizem-D5W 125 Mg/125 ml Drip) 125 ml @ 5 mls/hr TITRATE IV ; Start 12/16/16 at 22:45 Megestrol Acetate (Megace Susp) 400 mg BID PO Last administered on 12/26/16 08 :49; Admin Dose 400 MG; Start 12/17/16 at 13:00 Amiodarone HCl (Cordarone) 400 mg BID PO Last administered on 12/26/16 08:50; Admin Dose 400 MG; Start 12/17/16 at 21:00 Metoprolol Tartrate 50 mg 50 mg BID PO Last administered on 12/26/16 08:51; Admin Dose 50 MG; Start 12/17/16 at 21:00 Meropenem (Merrem 500 Mg/ 100 ml (Pmx)) 100 ml @ 200 mls/hr Q12 IVPB Last administered on 12/25/16 21:23; Admin Dose 200 MLS/HR; Start 12/19/16 at 21:00 Polyethylene Glycol (Miralax) 17 gm BID PO Last administered on 12/26/16 08:49 ; Admin Dose 17 GM; Start 12/21/16 at 21:00 Insulin Aspart (Novolog Insulin Pen) NOVOLOG *MILD* ALGORI... Q4 SC ; Start at 21:00 Miscellaneous Information 1 ea NOTE XX ; Start 12/21/16 at 17:30 Glucose (Glutose) 15 gm Q15M PRN PO DECREASED GLUCOSE; Start 12/21/16 at 17:30 Glucose (Glutose) 22.5 gm Q15M PRN PO DECREASED GLUCOSE; Start 12/21/16 at 17: 30 Dextrose (D50w Syringe) 25 ml Q15M PRN IV DECREASED GLUCOSE; Start 12/21/16 at 17:30 Dextrose (D50w Syringe) 50 ml Q15M PRN IV DECREASED GLUCOSE; Start 12/21/16 at 17:30 Glucagon (Glucagen) 1 mg Q15M PRN IM DECREASED GLUCOSE; Start 12/21/16 at 17:30 Glucose (Glutose) 15 gm Q15M PRN BUCCAL DECREASED GLUCOSE; Start 12/21/16 at 17 :30 Amlodipine Besylate (Norvasc) 5 mg DAILY PO Last administered on 12/26/16 08: 50; Admin Dose 5 MG; Start 12/24/16 at 10:30 Oxycodone HCl (Roxicodone) 10 mg Q6H PRN PO PAIN LEVEL 7-10 Last administered on 12/26/16 04:16; Admin Dose 10 MG; Start 12/25/16 at 13:00 RHONDA PETERSON NP December 26, 2016 10:37
--- NOTE | 2016-12-26 16:26 | CONS ---
Date/Time of Note Date/Time of Note DATE: 12/26/16 TIME: 16:24 Assessment/Plan Assessment/Plan Additional Assessment/Plan 1. Acute kidney injury, multifactorial, not improving despite being on IVF hydration, BUN/Cr persistently high ,.started on HD during this admission 2. Hyponatremia 3. Status post fall, which was a mechanical fall, but likely due to the hyponatremia. CT brain is negative. 4. Possible history of chronic kidney disease secondary to hypertensive nephrosclerosis. 5. History of hypertension. 6. History of gout. 7. History of hyperlipidemia. 8. Atrial fibrillation, rate controlled. 9. History of alcohol abuse. 10. Thrombocytopenia secondary to alcohol abuse. 11. sepsis due to UTI and bacteremia with Blood cx and urine Cx growing proteus PLAN: started on HD through right iJ danielle HD catheter , making good urine, but still has high BUn/Cr - no Plan for HD today, will reassess for HD in AM Blood cx and Urine cx grew proteus - on IV abx - Follow up blood cx on 12/16/16 negative to date megace for apetite, remeron 15 mg pO QHS started on nector thick liquids will follow up Consultation Date/Type/Reason Admit Date/Time December 10, 2016 at 16:57 Type of Consultation: NEPHROLOGY Referring Provider: CLOVIS SHORE 24 HR Interval Summary Free Text/Dictation pt doing ok, BP stable, but still not eating well Exam/Review of Systems Vital Signs Vitals Vital Signs Date Time Temp Pulse Resp B/P Pulse Ox O2 Delivery O2 Flow Rate FiO2 12/26/16 16:14 78 12/26/16 16:11 98.0 16 171/77 95 12/25/16 21:20 Nasal Cannula 2.0 Intake and Output 12/25/16 12/25/16 12/26/16 15:00 23:00 07:00 Intake Total 300 ml 150 ml Output Total 700 ml 1000 ml Balance -400 ml -850 ml Exam GENERAL: Obese well-developed, middle-aged man who is alert, in no distress. HEENT: Head atraumatic, normocephalic. Sclerae anicteric. Buccal mucosa dry. NECK: Supple, trachea midline. CHEST: Rise symmetrical. Breath sounds clear. HEART: S1, S2. ABDOMEN: Soft, bowel tones present. EXTREMITIES: Without cyanosis. Results Result Diagram: 12/25/16 0640 12/25/16 0640 Results 24 hrs Laboratory Tests Test 12/25/16 17:29 12/25/16 21:20 12/26/16 00:08 12/26/16 04:19 Bedside Glucose 125 81 82 78 Test 12/26/16 08:11 12/26/16 13:06 Bedside Glucose 81 104 Medications Medications Current Medications Ondansetron HCl (Zofran Inj) 4 mg Q6H PRN IV NAUSEA AND/OR VOMITING Last administered on 12/24/16 12:08; Admin Dose 4 MG; Start 12/10/16 at 18:00 Magnesium Hydroxide (Milk Of Mag) 30 ml DAILY PRN PO CONSTIPATION; Start at 18:00 Bisacodyl (Dulcolax) 5 mg DAILY PRN PO CONSTIPATION; Start 12/10/16 at 18:00 Famotidine (Pepcid) 20 mg DAILY PO Last administered on 12/26/16 08:50; Admin Dose 20 MG; Start 12/11/16 at 09:00 Hydralazine HCl (Apresoline) 10 mg Q6H PRN IV SBP>160 Last administered on 12/26 04:16; Admin Dose 10 MG; Start 12/10/16 at 18:00 Atorvastatin Calcium (Lipitor) 10 mg DAILY@21 PO Last administered on 21:22; Admin Dose 10 MG; Start 12/10/16 at 21:00 Heparin Sodium (Porcine) (Heparin (5000 Units/0.5 ml)) 5,000 unit BID SC Last administered on 12/26/16 08:52; Admin Dose 5,000 UNIT; Start 12/11/16 at 21:00 Chlordiazepoxide (Librium) 50 mg BID PO Last administered on 12/26/16 08:50; Admin Dose 50 MG; Start 12/11/16 at 21:00 Miscellaneous Information pharmacy to dose, g... ONCE XX ; Start 12/12/16 at 02: 30 Amiodarone HCl 900 mg/Dextrose 500 ml @ 0 mls/hr Q0M IV Last administered on 13:49; Admin Dose 33.4 MLS/HR; Start 12/14/16 at 13:00 Diltiazem HCl (Cardizem-D5W 125 Mg/125 ml Drip) 125 ml @ 5 mls/hr TITRATE IV ; Start 12/16/16 at 22:45 Megestrol Acetate (Megace Susp) 400 mg BID PO Last administered on 12/26/16 08 :49; Admin Dose 400 MG; Start 12/17/16 at 13:00 Amiodarone HCl (Cordarone) 400 mg BID PO Last administered on 12/26/16 08:50; Admin Dose 400 MG; Start 12/17/16 at 21:00 Metoprolol Tartrate 50 mg 50 mg BID PO Last administered on 12/26/16 08:51; Admin Dose 50 MG; Start 12/17/16 at 21:00 Meropenem (Merrem 500 Mg/ 100 ml (Pmx)) 100 ml @ 200 mls/hr Q12 IVPB Last administered on 12/26/16 15:12; Admin Dose 200 MLS/HR; Start 12/19/16 at 21:00 Polyethylene Glycol (Miralax) 17 gm BID PO Last administered on 12/26/16 08:49 ; Admin Dose 17 GM; Start 12/21/16 at 21:00 Insulin Aspart (Novolog Insulin Pen) NOVOLOG *MILD* ALGORI... Q4 SC ; Start at 21:00 Miscellaneous Information 1 ea NOTE XX ; Start 12/21/16 at 17:30 Glucose (Glutose) 15 gm Q15M PRN PO DECREASED GLUCOSE; Start 12/21/16 at 17:30 Glucose (Glutose) 22.5 gm Q15M PRN PO DECREASED GLUCOSE; Start 12/21/16 at 17: 30 Dextrose (D50w Syringe) 25 ml Q15M PRN IV DECREASED GLUCOSE; Start 12/21/16 at 17:30 Dextrose (D50w Syringe) 50 ml Q15M PRN IV DECREASED GLUCOSE; Start 12/21/16 at 17:30 Glucagon (Glucagen) 1 mg Q15M PRN IM DECREASED GLUCOSE; Start 12/21/16 at 17:30 Glucose (Glutose) 15 gm Q15M PRN BUCCAL DECREASED GLUCOSE; Start 12/21/16 at 17 :30 Amlodipine Besylate (Norvasc) 5 mg DAILY PO Last administered on 12/26/16 08: 50; Admin Dose 5 MG; Start 12/24/16 at 10:30 Oxycodone HCl (Roxicodone) 10 mg Q6H PRN PO PAIN LEVEL 7-10 Last administered on 12/26/16t 16:17; Admin Dose 10 MG; Start 12/25/16 at 13:00 MADELYN MIRANDA MD December 26, 2016 16:26
--- NOTE | 2016-12-26 17:18 | CONS ---
Date/Time of Note Date/Time of Note DATE: 12/26/16 TIME: 17:00 Assessment/Plan Assessment/Plan Additional Assessment/Plan Assessment * Dysphagia * Acute kidney injury * hypertension * Gout * Atrial fibrillation Plan * continue present management * swallow evaluation Consultation Date/Type/Reason Admit Date/Time December 10, 2016 at 16:57 Date of Consultation: December 26, 2016 Type of Consultation: gastroenterology Reason for Consultation dysphagia Referring Provider: JACK JENNINGS NP Hx of Present Illness A 71 y/o male with past medical history of hypertension,hyperlipidemia,gout , prostate ca,atrial fibrillation who seen at emergency room because of generalized weakness.Patient was admitted last decemberwith a diagnosis of acute kidney injury,s/p mechanical fall,hypertension,gout ,atrial tachycardia.patient has been on a on a diet however on December 20 a swallow evaluation was performed in which swallow evaluation was performed win which nectar thick pureed diet was recommended.patient was referred for further evaluation of dysphagia.I spoke to patient and claims he hates the food being served but has been having episodes of choking sensation. Eyes: no complaints ENT: no complaints Respiratory: no complaints Cardiovascular: no complaints Gastrointestinal: decreased appetite Genitourinary: no complaints Musculoskeletal: back pain Skin: no complaints Neurologic: no complaints Endocrine: no complaints Lymphatic: no complaints Psychological: nl mood/affect Immunologic: no complaints Past Medical History Medical History: hypertension Past Surgical History Past Surgical Hx: other (Hip surgery) Social History Smoking Status: Former smoker Exam/Review of Systems Vital Signs Vitals Vital Signs Date Time Temp Pulse Resp B/P Pulse Ox O2 Delivery O2 Flow Rate FiO2 12/26/16 16:14 78 12/26/16 16:11 98.0 16 171/77 95 12/25/16 21:20 Nasal Cannula 2.0 Intake and Output 12/25/16 12/25/16 12/26/16 15:00 23:00 07:00 Intake Total 300 ml 150 ml Output Total 700 ml 1000 ml Balance -400 ml -850 ml Exam Constitutional: alert Head: atraumatic, normocephalic Eyes: nl sclera Neck: non-tender, supple Respiratory: clear to auscultation, normal air movement Cardiovascular: nl pulses, regular rate and rhythm Gastrointestinal: bowel sounds, non-tender, soft Musculoskeletal: nl extremities to inspection, nl gait and stance Extremities: normal pulses Neurological: nl mental status Skin: nl turgor, No rash or lesions Lymph: nl lymph nodes Results Result Diagram: 12/25/16 0640 12/25/16 0640 Results 24 hrs Laboratory Tests Test 12/25/16 17:29 12/25/16 21:20 12/26/16 00:08 12/26/16 04:19 Bedside Glucose 125 81 82 78 Test 12/26/16 08:11 12/26/16 13:06 Bedside Glucose 81 104 Medications Medications Current Medications Ondansetron HCl (Zofran Inj) 4 mg Q6H PRN IV NAUSEA AND/OR VOMITING Last administered on 12/24/16 12:08; Admin Dose 4 MG; Start 12/10/16 at 18:00 Magnesium Hydroxide (Milk Of Mag) 30 ml DAILY PRN PO CONSTIPATION; Start at 18:00 Bisacodyl (Dulcolax) 5 mg DAILY PRN PO CONSTIPATION; Start 12/10/16 at 18:00 Famotidine (Pepcid) 20 mg DAILY PO Last administered on 12/26/16 08:50; Admin Dose 20 MG; Start 12/11/16 at 09:00 Hydralazine HCl (Apresoline) 10 mg Q6H PRN IV SBP>160 Last administered on 12/26 04:16; Admin Dose 10 MG; Start 12/10/16 at 18:00 Atorvastatin Calcium (Lipitor) 10 mg DAILY@21 PO Last administered on 21:22; Admin Dose 10 MG; Start 12/10/16 at 21:00 Heparin Sodium (Porcine) (Heparin (5000 Units/0.5 ml)) 5,000 unit BID SC Last administered on 12/26/16 08:52; Admin Dose 5,000 UNIT; Start 12/11/16 at 21:00 Chlordiazepoxide (Librium) 50 mg BID PO Last administered on 12/26/16 08:50; Admin Dose 50 MG; Start 12/11/16 at 21:00 Miscellaneous Information pharmacy to dose, g... ONCE XX ; Start 12/12/16 at 02: 30 Amiodarone HCl 900 mg/Dextrose 500 ml @ 0 mls/hr Q0M IV Last administered on 13:49; Admin Dose 33.4 MLS/HR; Start 12/14/16 at 13:00 Diltiazem HCl (Cardizem-D5W 125 Mg/125 ml Drip) 125 ml @ 5 mls/hr TITRATE IV ; Start 12/16/16 at 22:45 Megestrol Acetate (Megace Susp) 400 mg BID PO Last administered on 12/26/16 08 :49; Admin Dose 400 MG; Start 12/17/16 at 13:00 Amiodarone HCl (Cordarone) 400 mg BID PO Last administered on 12/26/16 08:50; Admin Dose 400 MG; Start 12/17/16 at 21:00 Metoprolol Tartrate 50 mg 50 mg BID PO Last administered on 12/26/16 08:51; Admin Dose 50 MG; Start 12/17/16 at 21:00 Meropenem (Merrem 500 Mg/ 100 ml (Pmx)) 100 ml @ 200 mls/hr Q12 IVPB Last administered on 12/26/16 15:12; Admin Dose 200 MLS/HR; Start 12/19/16 at 21:00 Polyethylene Glycol (Miralax) 17 gm BID PO Last administered on 12/26/16 08:49 ; Admin Dose 17 GM; Start 12/21/16 at 21:00 Insulin Aspart (Novolog Insulin Pen) NOVOLOG *MILD* ALGORI... Q4 SC ; Start at 21:00 Miscellaneous Information 1 ea NOTE XX ; Start 12/21/16 at 17:30 Glucose (Glutose) 15 gm Q15M PRN PO DECREASED GLUCOSE; Start 12/21/16 at 17:30 Glucose (Glutose) 22.5 gm Q15M PRN PO DECREASED GLUCOSE; Start 12/21/16 at 17: 30 Dextrose (D50w Syringe) 25 ml Q15M PRN IV DECREASED GLUCOSE; Start 12/21/16 at 17:30 Dextrose (D50w Syringe) 50 ml Q15M PRN IV DECREASED GLUCOSE; Start 12/21/16 at 17:30 Glucagon (Glucagen) 1 mg Q15M PRN IM DECREASED GLUCOSE; Start 12/21/16 at 17:30 Glucose (Glutose) 15 gm Q15M PRN BUCCAL DECREASED GLUCOSE; Start 12/21/16 at 17 :30 Amlodipine Besylate (Norvasc) 5 mg DAILY PO Last administered on 12/26/16 08: 50; Admin Dose 5 MG; Start 12/24/16 at 10:30 Oxycodone HCl (Roxicodone) 10 mg Q6H PRN PO PAIN LEVEL 7-10 Last administered on 12/26/16 16:17; Admin Dose 10 MG; Start 12/25/16 at 13:00 TYLER ARZATE MD December 26, 2016 17:13
[2016-12-26] MEDS: ATORVASTATIN 10 MG TAB PO SCH (20:45)
[2016-12-27] VITALS (12 sets, daily range): BP systolic 139–185; BP diastolic 64–99; PULSE 74–84; RESP 17–18
[2016-12-27] MEDS: INSULIN ASPART [NOVOLOG] 3 ML PEN SC SCH ×6 (01:00→20:21)
--- NOTE | 2016-12-27 07:01 | PN ---
DATE: 12/26/2016 CARDIOLOGY FOLLOWUP SUBJECTIVE: Discussed with the staff. Rhythm strip was reviewed. The patient is in sinus rhythm. Denies any chest pain or pressure to me. Denies any palpitations to me. Still confused though. MEDICATIONS: Reviewed as per medication reconciliation, personally reviewed. PHYSICAL EXAMINATION: VITAL SIGNS: Temperature 97.6, heart rate of 78, blood pressure 161/68, respiratory rate of 18. HEENT: Normocephalic, atraumatic. Pupils are equal. CARDIOVASCULAR: Regular rate and rhythm. PULMONARY: Anteriorly with no wheezes heard. GASTROINTESTINAL: Soft, nontender. EXTREMITIES: Positive edema. NEUROLOGIC: Awake and alert, oriented to person only. Does not know where he is or what day it is. PSYCHIATRIC: Appears to be calm. DERMATOLOGIC: There is ecchymosis, but no active bleeding. LABORATORY DATA: Sodium 139, potassium 5.1 as of yesterday. Glucose this morning is 95. ASSESSMENT AND PLAN: 1. Paroxysmal atrial fibrillation, currently remains in sinus rhythm. 2. Acute renal failure. 3. Hypertension. 4. Dyslipidemia. 5. History of alcohol abuse. 6. Thrombocytopenia. 7. Sepsis with urinary tract infection. RECOMMENDATIONS: We will continue blood pressure control. Dialysis as per renal. Beta anjelica harjeet l be continued. Off all anticoagulation due to concern about the fall and bleeding and his alcohol use. Amiodarone will be continued for the time being. Monitored on telemetry. Dr. Kelly will fol low the patient tomorrow. Dictated By: BAILEY MORALES MD AV/NTS Conf#: [id number] DID#: [id number] CC: SANJAY ANDREA NP; MADELYN MIRANDA MD;*End*
--- NOTE | 2016-12-27 07:08 | PN ---
DATE: 12/25/2016 CARDIOLOGY FOLLOWUP SUBJECTIVE: Discussed with the staff. The patient with no reported chest pain or pressure. EKG st rip was reviewed. Remains in sinus rhythm. His breathing has remained stable. MEDICATIONS: Reviewed. PHYSICAL EXAMINATION: VITAL SIGNS: Temperature 97.6, heart rate of 75, blood pressure 158/69, respiration rate of 18, sat urating 98%. HEENT: Normocephalic, atraumatic. Obese gentleman. Pupils are equal. CARDIOVASCULAR: Regular rate and rhythm, systolic murmur. PULMONARY: Anteriorly with no wheezes.: Status post right-sided hemodialysis access in place. GASTROINTESTINAL: Obese, soft, nontender. EXTREMITIES: With trivial edema. NEUROLOGIC: Awake, responds appropriately. PSYCHIATRIC: Appears to be calm. LABORATORY: WBC of 7.5, hemoglobin 8.9, platelets of 408. Sodium 139, potassium 5.1, BUN of 51, cr eatinine of 5.86, glucose of 96. Chest x-ray from extensive from 12/23/2016, shows worsening central congestion, suggestive of pulmon grant edema. ASSESSMENT AND PLAN: 1. Paroxysmal atrial fibrillation, currently remains in sinus rhythm. 2. Renal failure, [id number], on dialysis now. 3. Fluid overload with congestive heart failure. 4. Status post sepsis and bacteremia. 5. Hypertension. 6. Recent UTI. 7. History of alcohol use. RECOMMENDATIONS: We will continue with the current blood pressure medications including amlodipine for now. Dialysis as per renal. Antibiotic is managed as per internal medicine and ID. Amiodarone will be continued at the current dose. Beta anjelica will be continued as well. The patient is not anticoagulated due to concern about his fall and bleeding and severe anemia, especially given his h istory of alcohol use. Continue to monitor on telemetry. Dictated By: BAILEY SMITH/RIKA Conf#: [id number] DID#: [id number]
[2016-12-27 08:05] LABS: ADD SCAN DIFF NO
[2016-12-27 08:18] LABS: BASOPHILS % 0.5 % (0.0-2.0); EOSINOPHILS # 0.1 10^3/ul (0.0-0.5); EOSINOPHILS % 1.1 % (0.0-7.0); HEMATOCRIT 27.4 % (42.0-52.0); HEMOGLOBIN 8.8 g/dl (14.0-18.0); LYMPHOCYTES # 0.8 10^3/ul (0.8-2.9); LYMPHOCYTES % 10.7 % (15.0-51.0); MEAN CORPUSCULAR HEMOGLOBIN 30.1 pg (29.0-33.0); MEAN CORPUSCULAR HGB CONC 32.1 g/dl (32.0-37.0); MEAN CORPUSCULAR VOLUME 93.8 fl (82.0-101.0); MEAN PLATELET VOLUME 9.8 fl (7.4-10.4); MONOCYTE # 0.5 10^3/ul (0.3-0.9); MONOCYTES % 6.5 % (0.0-11.0); NEUTROPHIL # 5.9 10^3/ul (1.6-7.5); NEUTROPHILS % 80.4 % (39.0-77.0); PLATELET COUNT 384 10^3/UL (140-415); RED BLOOD COUNT 2.92 10^6/ul (4.70-6.10); RED CELL DISTRIBUTION WIDTH 14.7 % (11.5-14.5); WHITE BLOOD COUNT 7.4 10^3/ul (4.8-10.8)
[2016-12-27 08:45] LABS: POTASSIUM 5.1 mmol/L (3.5-5.1)
[2016-12-27 08:46] LABS: MAGNESIUM 2.1 mg/dl (1.7-2.5); PHOSPHORUS 6.5 mg/dl (2.5-4.9)
[2016-12-27 08:48] LABS: CREATININE 5.95 mg/dl (0.61-1.24)
[2016-12-27] MEDS: FAMOTIDINE 20 MG TAB PO SCH (09:11)
[2016-12-27] MEDS: MEGESTROL (40 MG/ML) 10ML CUP PO SCH ×2 (09:11→20:19)
[2016-12-27] MEDS: CHLORDIAZEPOXIDE 25 MG CAP PO SCH ×2 (09:12→20:19)
[2016-12-27] MEDS: AMIODARONE 200 MG TAB PO SCH ×2 (09:12→20:29)
[2016-12-27] MEDS: AMLODIPINE 5 MG TAB PO SCH ×2 (09:13→20:21)
[2016-12-27] MEDS: POLYETHYLENE GLYCOL 17 GM PACKET PO SCH ×2 (09:13→20:19)
[2016-12-27] MEDS: METOPROLOL 50 MG TAB PO SCH ×2 (09:13→20:20)
[2016-12-27] MEDS: MEROPENEM 500 MG/100 ML (PMX) 100 ML IVPB SCH ×2 (09:25→20:19)
[2016-12-27] MEDS: HEPARIN 5,000 UNIT/0.5 ML VIAL SC SCH ×2 (09:26→20:22)
--- NOTE | 2016-12-27 10:39 | PN ---
Date/Time of Note Date/Time of Note DATE: 12/27/16 TIME: 10:38 Assessment/Plan VTE Prophylaxis VTE Prophylaxis Intervention: heparin Lines/Catheters IV Catheter Type (from Nrs): Peripheral IV Central line still needed: Yes Urinary Cath still in place: Yes Reason Cath still needed: other (indicate) Assessment/Plan Chief Complaint/Hosp Course 1. Acute kidney injury. Etiology unclear. Continue IV hydration. Nephrology following. Avoid nephrotoxic medications. The patient was temporarily started on hemodialysis. 2. Status post fall. Brain CT negative for any acute intracranial findings. Physical therapy evaluation. 3. Essential hypertension. Continue routine antihypertensives and as needed antihypertensives for any systolic blood pressure readings greater than 160 mercury. 4. Gout. Uric acid levels within normal limits. 5. Sepsis with underlying urinary tract infection and gram-negative bacteremia. The patient on antibiotics as per Infectious Disease. No evidence of septic shock. 6. Hyperlipidemia. Continue statins. Fasting lipid panel suboptimal. 7. Paroxysmal atrial fibrillation. The patient will be continued on beta blockers and amiodarone.. Currently in sinus rhythm. Cardiology following. 8. Alcohol abuse. Continue daily banana bag. Monitor for any alcohol withdrawal delirium. 9. Dysphagia. Continue aspiration precautions. Diet as per speech therapy. 10. Acute encephalopathy. Probably metabolic in origin. Monitor. Brain CT scan negative for any acute findings. 11. Fluids, electrolytes, and nutrition. Low-cholesterol diet. 12. DVT prophylaxis. Subcutaneous heparin. 13. Gastrointestinal prophylaxis. Histamine 2 receptor blockers. 14. Plan. Continue antibiotics as per infectious diseases. Monitor renal function closely. Await further recommendations from nephrology. Continue physical therapy. Obtain pain management consult for severe back pain. Case discussed with Dr. Miramontes. Problems: Subjective 24 Hr Interval Summary Free Text/Dictation Complains of severe back pain. Exam/Review of Systems Vital Signs Vitals Vital Signs Date Time Temp Pulse Resp B/P Pulse Ox O2 Delivery O2 Flow Rate FiO2 12/27/16 08:18 77 12/27/16 08:10 97.8 18 178/77 100 12/26/16 20:40 Nasal Cannula 2.0 Intake and Output 12/26/16 12/26/16 12/27/16 15:00 23:00 07:00 Intake Total 100 ml 150 ml Output Total 600 ml 1000 ml Balance -500 ml -850 ml Exam GENERAL: This is a well-built, well-nourished male patient lying in bed in no apparent distress. HEENT: Head normocephalic and atraumatic. Eyes: Anicteric sclerae. Conjunctivae clear. ENT: Nasal septum is midline. Oral mucosa is dry. NECK: Supple. No JVD noticed. RESPIRATORY: Bilaterally clear to auscultation. No adventitious breath sounds. No use of accessory muscles of respiration. CARDIAC: Regular rate and rhythm. S1-S2 heard. ABDOMEN: Soft, nontender, nondistended. Bowel sounds positive in all 4 quadrants. GENITOURINARY: Deferred. EXTREMITIES: No cyanosis, no clubbing, no edema. Peripheral pulses are palpable. NEUROLOGIC: The patient is awake and alert. Results Result Diagram: 12/27/1664012/27/16640 Results 24 hrs Laboratory Tests Test 12/26/16 13:06 12/26/16 18:03 12/26/16 20:42 12/27/16 04:10 Bedside Glucose 104 97 77 80 Test 12/27/16 06:41 12/27/16 08:31 White Blood Count 7.4 Red Blood Count 2.92 L Hemoglobin 8.8 L Hematocrit 27.4 L Mean Corpuscular Volume 93.8 Mean Corpuscular Hemoglobin 30.1 Mean Corpuscular Hemoglobin Concent 32.1 Red Cell Distribution Width 14.7 H Platelet Count 384 Mean Platelet Volume 9.8 Neutrophils % 80.4 H Lymphocytes % 10.7 L Monocytes % 6.5 Eosinophils % 1.1 Basophils % 0.5 Nucleated Red Blood Cells % 0.0 Neutrophils # 5.9 Lymphocytes # 0.8 Monocytes # 0.5 Eosinophils # 0.1 Basophils # 0.0 Nucleated Red Blood Cells # 0.0 Sodium Level 143 Potassium Level 5.1 Chloride Level 108 Carbon Dioxide Level 24 Anion Gap 16 Blood Urea Nitrogen 50 H Creatinine 5.95 H Glucose Level 76 Calcium Level 10.0 Phosphorus Level 6.5 H Magnesium Level 2.1 Bedside Glucose 75 Medications Medications Current Medications Ondansetron HCl (Zofran Inj) 4 mg Q6H PRN IV NAUSEA AND/OR VOMITING Last administered on 12/24/16t 12:08; Admin Dose 4 MG; Start 12/10/16 at 18:00 Magnesium Hydroxide (Milk Of Mag) 30 ml DAILY PRN PO CONSTIPATION; Start at 18:00 Bisacodyl (Dulcolax) 5 mg DAILY PRN PO CONSTIPATION; Start 12/10/16 at 18:00 Famotidine (Pepcid) 20 mg DAILY PO Last administered on 12/27/16 09:11; Admin Dose 20 MG; Start 12/11/16 at 09:00 Hydralazine HCl (Apresoline) 10 mg Q6H PRN IV SBP>160 Last administered on 12/26 04:16; Admin Dose 10 MG; Start 12/10/16 at 18:00 Atorvastatin Calcium (Lipitor) 10 mg DAILY@21 PO Last administered on 20:45; Admin Dose 10 MG; Start 12/10/16 at 21:00 Heparin Sodium (Porcine) (Heparin (5000 Units/0.5 ml)) 5,000 unit BID SC Last administered on 12/27/16 09:26; Admin Dose 5,000 UNIT; Start 12/11/16 at 21:00 Chlordiazepoxide 50 mg 50 mg BID PO Last administered on 12/27/16 09:12; Admin Dose 50 MG; Start 12/11/16 at 21:00 Amiodarone HCl 900 mg/Dextrose 500 ml @ 0 mls/hr Q0M IV Last administered on 13:49; Admin Dose 33.4 MLS/HR; Start 12/14/16 at 13:00 Diltiazem HCl (Cardizem-D5W 125 Mg/125 ml Drip) 125 ml @ 5 mls/hr TITRATE IV ; Start 12/16/16 at 22:45 Megestrol Acetate (Megace Susp) 400 mg BID PO Last administered on 12/27/16 09 :11; Admin Dose 400 MG; Start 12/17/16 at 13:00 Amiodarone HCl (Cordarone) 400 mg BID PO Last administered on 12/27/16 09:12; Admin Dose 400 MG; Start 12/17/16 at 21:00 Metoprolol Tartrate 50 mg 50 mg BID PO Last administered on 12/27/16 09:13; Admin Dose 50 MG; Start 12/17/16 at 21:00 Meropenem (Merrem 500 Mg/ 100 ml (Pmx)) 100 ml @ 200 mls/hr Q12 IVPB Last administered on 12/27/16 09:25; Admin Dose 200 MLS/HR; Start 12/19/16 at 21:00 Polyethylene Glycol (Miralax) 17 gm BID PO Last administered on 12/27/16 09:13 ; Admin Dose 17 GM; Start 12/21/16 at 21:00 Insulin Aspart (Novolog Insulin Pen) NOVOLOG *MILD* ALGORI... Q4 SC ; Start at 21:00 Miscellaneous Information 1 ea NOTE XX ; Start 12/21/16 at 17:30 Glucose (Glutose) 15 gm Q15M PRN PO DECREASED GLUCOSE; Start 12/21/16 at 17:30 Glucose (Glutose) 22.5 gm Q15M PRN PO DECREASED GLUCOSE; Start 12/21/16 at 17: 30 Dextrose (D50w Syringe) 25 ml Q15M PRN IV DECREASED GLUCOSE; Start 12/21/16 at 17:30 Dextrose (D50w Syringe) 50 ml Q15M PRN IV DECREASED GLUCOSE; Start 12/21/16 at 17:30 Glucagon (Glucagen) 1 mg Q15M PRN IM DECREASED GLUCOSE; Start 12/21/16 at 17:30 Glucose (Glutose) 15 gm Q15M PRN BUCCAL DECREASED GLUCOSE; Start 12/21/16 at 17 :30 Amlodipine Besylate (Norvasc) 5 mg DAILY PO Last administered on 12/27/16 09: 13; Admin Dose 5 MG; Start 12/24/16 at 10:30 Oxycodone HCl (Roxicodone) 10 mg Q6H PRN PO PAIN LEVEL 7-10 Last administered on 12/26/16 16:17; Admin Dose 10 MG; Start 12/25/16 at 13:00 JACK JENNINGS NP December 27, 2016 10:39
[2016-12-27] MEDS: oxyCODONE 5 MG TAB PO PRN (12:11)
[2016-12-27] MEDS: hydrALAzine 20 MG INJ IV PRN (12:11)
--- NOTE | 2016-12-27 13:54 | CONS ---
Date/Time of Note Date/Time of Note DATE: 12/27/16 TIME: 13:52 Assessment/Plan Assessment/Plan Chief Complaint/Hosp Course SUBJECTIVE: No acute events per report, awake, confused, on/off restless, no fevers, nad MICROBIOLOGY: Blood and urine culture growing Proteus mirabilis susceptible to all antibiotics. ANTIMICROBIALS: Merrem Indwelling: RIJ danielle 12/13 PHYSICAL EXAMINATION: GENERAL: Obese well-developed, middle-aged man who is alert, in no distress. HEENT: Head atraumatic, normocephalic. Sclerae anicteric. Buccal mucosa dry. NECK: Supple, trachea midline. CHEST: Rise symmetrical. Breath sounds clear. HEART: S1, S2. ABDOMEN: Soft, bowel tones present. EXTREMITIES: Without cyanosis. ASSESSMENT: 1. Sepsis with acute encephalopathy 2. Proteus mirabilis urinary tract infection with bacteremia. 3. Acute kidney failure, possible chronic kidney disease. 4. HCAP, poss aspiration. 5. Hypertension. 6. Atrial fibrillation. 7. History of alcohol abuse. 8. DJD of thoracic spine PLAN: Stable, will keep on abx for couple more days, f/u nephrology rec-s. DW staff Problems: Consultation Date/Type/Reason Admit Date/Time December 10, 2016 at 16:57 Type of Consultation: ID Referring Provider: JACK JENNINGS [employer]AREHOUSE CLERK Exam/Review of Systems Vital Signs Vitals Vital Signs Date Time Temp Pulse Resp B/P Pulse Ox O2 Delivery O2 Flow Rate FiO2 12/27/16 11:59 98.6 81 18 185/85 96 12/27/16 08:00 Nasal Cannula 2.0 Intake and Output 12/26/16 12/26/16 12/27/16 15:00 23:00 07:00 Intake Total 100 ml 150 ml Output Total 600 ml 1000 ml Balance -500 ml -850 ml Results Result Diagram: 12/27/16 0641 12/27/16 0641 Results 24 hrs Laboratory Tests Test 12/26/16 18:03 12/26/16 20:42 12/27/16 04:10 12/27/16 06:41 Bedside Glucose 97 77 80 White Blood Count 7.4 Red Blood Count 2.92 L Hemoglobin 8.8 L Hematocrit 27.4 L Mean Corpuscular Volume 93.8 Mean Corpuscular Hemoglobin 30.1 Mean Corpuscular Hemoglobin Concent 32.1 Red Cell Distribution Width 14.7 H Platelet Count 384 Mean Platelet Volume 9.8 Neutrophils % 80.4 H Lymphocytes % 10.7 L Monocytes % 6.5 Eosinophils % 1.1 Basophils % 0.5 Nucleated Red Blood Cells % 0.0 Neutrophils # 5.9 Lymphocytes # 0.8 Monocytes # 0.5 Eosinophils # 0.1 Basophils # 0.0 Nucleated Red Blood Cells # 0.0 Sodium Level 143 Potassium Level 5.1 Chloride Level 108 Carbon Dioxide Level 24 Anion Gap 16 Blood Urea Nitrogen 50 H Creatinine 5.95 H Glucose Level 76 Calcium Level 10.0 Phosphorus Level 6.5 H Magnesium Level 2.1 Test 12/27/16 08:31 12/27/16 12:09 12/27/16 12:44 Bedside Glucose 75 83 80 Medications Medications Current Medications Ondansetron HCl (Zofran Inj) 4 mg Q6H PRN IV NAUSEA AND/OR VOMITING Last administered on 12/24/16 12:08; Admin Dose 4 MG; Start 12/10/16 at 18:00 Magnesium Hydroxide (Milk Of Mag) 30 ml DAILY PRN PO CONSTIPATION; Start at 18:00 Bisacodyl (Dulcolax) 5 mg DAILY PRN PO CONSTIPATION; Start 12/10/16 at 18:00 Famotidine (Pepcid) 20 mg DAILY PO Last administered on 12/27/16 09:11; Admin Dose 20 MG; Start 12/11/16 at 09:00 Hydralazine HCl (Apresoline) 10 mg Q6H PRN IV SBP>160 Last administered on 12/27 12:11; Admin Dose 10 MG; Start 12/10/16 at 18:00 Atorvastatin Calcium (Lipitor) 10 mg DAILY@21 PO Last administered on 20:45; Admin Dose 10 MG; Start 12/10/16 at 21:00 Heparin Sodium (Porcine) (Heparin (5000 Units/0.5 ml)) 5,000 unit BID SC Last administered on 12/27/16 09:26; Admin Dose 5,000 UNIT; Start 12/11/16 at 21:00 Chlordiazepoxide 50 mg 50 mg BID PO Last administered on 12/27/16 09:12; Admin Dose 50 MG; Start 12/11/16 at 21:00 Amiodarone HCl 900 mg/Dextrose 500 ml @ 0 mls/hr Q0M IV Last administered on 13:49; Admin Dose 33.4 MLS/HR; Start 12/14/16 at 13:00 Diltiazem HCl (Cardizem-D5W 125 Mg/125 ml Drip) 125 ml @ 5 mls/hr TITRATE IV ; Start 12/16/16 at 22:45 Megestrol Acetate (Megace Susp) 400 mg BID PO Last administered on 12/27/16 09 :11; Admin Dose 400 MG; Start 12/17/16 at 13:00 Amiodarone HCl (Cordarone) 400 mg BID PO Last administered on 12/27/16 09:12; Admin Dose 400 MG; Start 12/17/16 at 21:00 Metoprolol Tartrate 50 mg 50 mg BID PO Last administered on 12/27/16 09:13; Admin Dose 50 MG; Start 12/17/16 at 21:00 Meropenem (Merrem 500 Mg/ 100 ml (Pmx)) 100 ml @ 200 mls/hr Q12 IVPB Last administered on 12/27/16 09:25; Admin Dose 200 MLS/HR; Start 12/19/16 at 21:00 Polyethylene Glycol (Miralax) 17 gm BID PO Last administered on 12/27/16 09:13 ; Admin Dose 17 GM; Start 12/21/16 at 21:00 Insulin Aspart (Novolog Insulin Pen) NOVOLOG *MILD* ALGORI... Q4 SC ; Start at 21:00 Miscellaneous Information 1 ea NOTE XX ; Start 12/21/16 at 17:30 Glucose (Glutose) 15 gm Q15M PRN PO DECREASED GLUCOSE; Start 12/21/16 at 17:30 Glucose (Glutose) 22.5 gm Q15M PRN PO DECREASED GLUCOSE; Start 12/21/16 at 17: 30 Dextrose (D50w Syringe) 25 ml Q15M PRN IV DECREASED GLUCOSE; Start 12/21/16 at 17:30 Dextrose (D50w Syringe) 50 ml Q15M PRN IV DECREASED GLUCOSE; Start 12/21/16 at 17:30 Glucagon (Glucagen) 1 mg Q15M PRN IM DECREASED GLUCOSE; Start 12/21/16 at 17:30 Glucose (Glutose) 15 gm Q15M PRN BUCCAL DECREASED GLUCOSE; Start 12/21/16 at 17 :30 Amlodipine Besylate (Norvasc) 5 mg DAILY PO Last administered on 12/27/16 09: 13; Admin Dose 5 MG; Start 12/24/16 at 10:30 Oxycodone HCl (Roxicodone) 10 mg Q6H PRN PO PAIN LEVEL 7-10 Last administered on 12/27/16 12:11; Admin Dose 10 MG; Start 12/25/16 at 13:00 CHERRIE JAUREGUI NP December 27, 2016 13:54
--- NOTE | 2016-12-27 13:59 | CONS ---
Date/Time of Note Date/Time of Note DATE: 12/27/16 TIME: 13:55 Assessment/Plan Assessment/Plan Additional Assessment/Plan 1. Acute kidney injury, multifactorial, not improving despite being on IVF hydration, BUN/Cr persistently high ,.started on HD during this admission 2. Hyponatremia - improved 3. Status post fall, which was a mechanical fall, but likely due to the hyponatremia. CT brain is negative. 4. Possible history of chronic kidney disease secondary to hypertensive nephrosclerosis. 5. History of hypertension. 6. History of gout. 7. History of hyperlipidemia. 8. Atrial fibrillation, rate controlled. 9. History of alcohol abuse. 10. Thrombocytopenia secondary to alcohol abuse. 11. sepsis due to UTI and bacteremia with Blood cx and urine Cx growing proteus PLAN: started on HD through right iJ danielle HD catheter , making good urine 1.5 liter , but still has high BUn/Cr - no Plan for HD today, will reassess for HD in AM currently Right IJ is being used for IV access, PICC line requested for Access Blood cx and Urine cx grew proteus - on IV abx - Follow up blood cx on 12/16/16 negative to date out of bed to chair avoid sedative, hypnotics BP stable Consultation Date/Type/Reason Admit Date/Time December 10, 2016 at 16:57 Type of Consultation: NEPHROLOGY Referring Provider: JACK JENNINGS NP 24 HR Interval Summary Free Text/Dictation Made good urine output ,BP stable Exam/Review of Systems Vital Signs Vitals Vital Signs Date Time Temp Pulse Resp B/P Pulse Ox O2 Delivery O2 Flow Rate FiO2 12/27/16 11:59 98.6 81 18 185/85 96 12/27/16 08:00 Nasal Cannula 2.0 Intake and Output 12/26/16 12/26/16 12/27/16 15:00 23:00 07:00 Intake Total 100 ml 150 ml Output Total 600 ml 1000 ml Balance -500 ml -850 ml Exam GENERAL: Obese well-developed, middle-aged man who is alert, in no distress. HEENT: Head atraumatic, normocephalic. Sclerae anicteric. Buccal mucosa dry. NECK: Supple, trachea midline. CHEST: Rise symmetrical. Breath sounds clear. HEART: S1, S2. ABDOMEN: Soft, bowel tones present. EXTREMITIES: Without cyanosis. Results Result Diagram: 12/27/16 0641 12/27/16 0641 Results 24 hrs Laboratory Tests Test 12/26/16 18:03 12/26/16 20:42 12/27/16 04:10 12/27/16 06:41 Bedside Glucose 97 77 80 White Blood Count 7.4 Red Blood Count 2.92 L Hemoglobin 8.8 L Hematocrit 27.4 L Mean Corpuscular Volume 93.8 Mean Corpuscular Hemoglobin 30.1 Mean Corpuscular Hemoglobin Concent 32.1 Red Cell Distribution Width 14.7 H Platelet Count 384 Mean Platelet Volume 9.8 Neutrophils % 80.4 H Lymphocytes % 10.7 L Monocytes % 6.5 Eosinophils % 1.1 Basophils % 0.5 Nucleated Red Blood Cells % 0.0 Neutrophils # 5.9 Lymphocytes # 0.8 Monocytes # 0.5 Eosinophils # 0.1 Basophils # 0.0 Nucleated Red Blood Cells # 0.0 Sodium Level 143 Potassium Level 5.1 Chloride Level 108 Carbon Dioxide Level 24 Anion Gap 16 Blood Urea Nitrogen 50 H Creatinine 5.95 H Glucose Level 76 Calcium Level 10.0 Phosphorus Level 6.5 H Magnesium Level 2.1 Test 12/27/16 08:31 12/27/16 12:09 12/27/16 12:44 Bedside Glucose 75 83 80 Medications Medications Current Medications Ondansetron HCl (Zofran Inj) 4 mg Q6H PRN IV NAUSEA AND/OR VOMITING Last administered on 12/24/16 12:08; Admin Dose 4 MG; Start 12/10/16 at 18:00 Magnesium Hydroxide (Milk Of Mag) 30 ml DAILY PRN PO CONSTIPATION; Start at 18:00 Bisacodyl (Dulcolax) 5 mg DAILY PRN PO CONSTIPATION; Start 12/10/16 at 18:00 Famotidine (Pepcid) 20 mg DAILY PO Last administered on 12/27/16 09:11; Admin Dose 20 MG; Start 12/11/16 at 09:00 Hydralazine HCl (Apresoline) 10 mg Q6H PRN IV SBP>160 Last administered on 12/27 12:11; Admin Dose 10 MG; Start 12/10/16 at 18:00 Atorvastatin Calcium (Lipitor) 10 mg DAILY@21 PO Last administered on 20:45; Admin Dose 10 MG; Start 12/10/16 at 21:00 Heparin Sodium (Porcine) (Heparin (5000 Units/0.5 ml)) 5,000 unit BID SC Last administered on 12/27/16 09:26; Admin Dose 5,000 UNIT; Start 12/11/16 at 21:00 Chlordiazepoxide 50 mg 50 mg BID PO Last administered on 12/27/16 09:12; Admin Dose 50 MG; Start 12/11/16 at 21:00 Amiodarone HCl 900 mg/Dextrose 500 ml @ 0 mls/hr Q0M IV Last administered on 13:49; Admin Dose 33.4 MLS/HR; Start 12/14/16 at 13:00 Diltiazem HCl (Cardizem-D5W 125 Mg/125 ml Drip) 125 ml @ 5 mls/hr TITRATE IV ; Start 12/16/16 at 22:45 Megestrol Acetate (Megace Susp) 400 mg BID PO Last administered on 12/27/16 09 :11; Admin Dose 400 MG; Start 12/17/16 at 13:00 Amiodarone HCl (Cordarone) 400 mg BID PO Last administered on 12/27/16 09:12; Admin Dose 400 MG; Start 12/17/16 at 21:00 Metoprolol Tartrate 50 mg 50 mg BID PO Last administered on 12/27/16 09:13; Admin Dose 50 MG; Start 12/17/16 at 21:00 Meropenem (Merrem 500 Mg/ 100 ml (Pmx)) 100 ml @ 200 mls/hr Q12 IVPB Last administered on 12/27/16 09:25; Admin Dose 200 MLS/HR; Start 12/19/16 at 21:00 Polyethylene Glycol (Miralax) 17 gm BID PO Last administered on 12/27/16 09:13 ; Admin Dose 17 GM; Start 12/21/16 at 21:00 Insulin Aspart (Novolog Insulin Pen) NOVOLOG *MILD* ALGORI... Q4 SC ; Start at 21:00 Miscellaneous Information 1 ea NOTE XX ; Start 12/21/16 at 17:30 Glucose (Glutose) 15 gm Q15M PRN PO DECREASED GLUCOSE; Start 12/21/16 at 17:30 Glucose (Glutose) 22.5 gm Q15M PRN PO DECREASED GLUCOSE; Start 12/21/16 at 17: 30 Dextrose (D50w Syringe) 25 ml Q15M PRN IV DECREASED GLUCOSE; Start 12/21/16 at 17:30 Dextrose (D50w Syringe) 50 ml Q15M PRN IV DECREASED GLUCOSE; Start 12/21/16 at 17:30 Glucagon (Glucagen) 1 mg Q15M PRN IM DECREASED GLUCOSE; Start 12/21/16 at 17:30 Glucose (Glutose) 15 gm Q15M PRN BUCCAL DECREASED GLUCOSE; Start 12/21/16 at 17 :30 Amlodipine Besylate (Norvasc) 5 mg DAILY PO Last administered on 12/27/16 09: 13; Admin Dose 5 MG; Start 12/24/16 at 10:30 Oxycodone HCl (Roxicodone) 10 mg Q6H PRN PO PAIN LEVEL 7-10 Last administered on 12/27/16 12:11; Admin Dose 10 MG; Start 12/25/16 at 13:00 MADELYN MIRANDA MD December 27, 2016 13:59
[2016-12-27] MEDS ORDERED: LIDOCAINE 1% (MPF) 5 ML VIAL SC ONE (14:30)
--- NOTE | 2016-12-27 16:35 | PN ---
Date/Time of Note Date/Time of Note DATE: 12/27/16 TIME: 16:33 Assessment/Plan VTE Prophylaxis VTE Prophylaxis Intervention: SCD's Lines/Catheters IV Catheter Type (from Nrs): Peripheral IV Urinary Cath still in place: Yes Reason Cath still needed: urinary retention Assessment/Plan Chief Complaint/Hosp Course Problems: Assessment/Plan Assessment * Dysphagia * Failure to thrive * Acute kidney injury * hypertension * Gout * Atrial fibrillation Plan * continue present management * swallow evaluation * still for barium swallow with speech evaluation Subjective 24 Hr Interval Summary Free Text/Dictation * Course reviewed with RN * patient seen and examined * Still swallow evaluation Exam/Review of Systems Vital Signs Vitals Vital Signs Date Time Temp Pulse Resp B/P Pulse Ox O2 Delivery O2 Flow Rate FiO2 12/27/16 16:06 82 12/27/16 15:46 97.7 18 139/64 96 12/27/16 08:00 Nasal Cannula 2.0 Intake and Output 12/26/16 12/26/16 12/27/16 15:00 23:00 07:00 Intake Total 100 ml 150 ml Output Total 600 ml 1000 ml Balance -500 ml -850 ml Exam Constitutional: alert, frail Neck: non-tender, supple Respiratory: clear to auscultation, normal air movement Cardiovascular: nl pulses, regular rate and rhythm Gastrointestinal: nl liver, spleen, soft Musculoskeletal: nl extremities to inspection, nl gait and stance Extremities: normal pulses Results Result Diagram: 12/27/16 0641 12/27/16 0641 Results 24 hrs Laboratory Tests Test 12/26/16 18:03 12/26/16 20:42 12/27/16 04:10 12/27/16 06:41 Bedside Glucose 97 77 80 White Blood Count 7.4 Red Blood Count 2.92 L Hemoglobin 8.8 L Hematocrit 27.4 L Mean Corpuscular Volume 93.8 Mean Corpuscular Hemoglobin 30.1 Mean Corpuscular Hemoglobin Concent 32.1 Red Cell Distribution Width 14.7 H Platelet Count 384 Mean Platelet Volume 9.8 Neutrophils % 80.4 H Lymphocytes % 10.7 L Monocytes % 6.5 Eosinophils % 1.1 Basophils % 0.5 Nucleated Red Blood Cells % 0.0 Neutrophils # 5.9 Lymphocytes # 0.8 Monocytes # 0.5 Eosinophils # 0.1 Basophils # 0.0 Nucleated Red Blood Cells # 0.0 Sodium Level 143 Potassium Level 5.1 Chloride Level 108 Carbon Dioxide Level 24 Anion Gap 16 Blood Urea Nitrogen 50 H Creatinine 5.95 H Glucose Level 76 Calcium Level 10.0 Phosphorus Level 6.5 H Magnesium Level 2.1 Test 12/27/16 08:31 12/27/16 12:09 12/27/16 12:44 Bedside Glucose 75 83 80 Medications Medications Current Medications Ondansetron HCl (Zofran Inj) 4 mg Q6H PRN IV NAUSEA AND/OR VOMITING Last administered on 12/24/16 12:08; Admin Dose 4 MG; Start 12/10/16 at 18:00 Magnesium Hydroxide (Milk Of Mag) 30 ml DAILY PRN PO CONSTIPATION; Start at 18:00 Bisacodyl (Dulcolax) 5 mg DAILY PRN PO CONSTIPATION; Start 12/10/16 at 18:00 Famotidine (Pepcid) 20 mg DAILY PO Last administered on 12/27/16 09:11; Admin Dose 20 MG; Start 12/11/16 at 09:00 Hydralazine HCl (Apresoline) 10 mg Q6H PRN IV SBP>160 Last administered on 12/27 12:11; Admin Dose 10 MG; Start 12/10/16 at 18:00 Atorvastatin Calcium (Lipitor) 10 mg DAILY@21 PO Last administered on 20:45; Admin Dose 10 MG; Start 12/10/16 at 21:00 Heparin Sodium (Porcine) (Heparin (5000 Units/0.5 ml)) 5,000 unit BID SC Last administered on 12/27/16 09:26; Admin Dose 5,000 UNIT; Start 12/11/16 at 21:00 Chlordiazepoxide 50 mg 50 mg BID PO Last administered on 12/27/16 09:12; Admin Dose 50 MG; Start 12/11/16 at 21:00 Amiodarone HCl 900 mg/Dextrose 500 ml @ 0 mls/hr Q0M IV Last administered on 13:49; Admin Dose 33.4 MLS/HR; Start 12/14/16 at 13:00 Diltiazem HCl (Cardizem-D5W 125 Mg/125 ml Drip) 125 ml @ 5 mls/hr TITRATE IV ; Start 12/16/16 at 22:45 Megestrol Acetate (Megace Susp) 400 mg BID PO Last administered on 12/27/16 09 :11; Admin Dose 400 MG; Start 12/17/16 at 13:00 Amiodarone HCl (Cordarone) 400 mg BID PO Last administered on 12/27/16 09:12; Admin Dose 400 MG; Start 12/17/16 at 21:00 Metoprolol Tartrate 50 mg 50 mg BID PO Last administered on 12/27/16 09:13; Admin Dose 50 MG; Start 12/17/16 at 21:00 Meropenem (Merrem 500 Mg/ 100 ml (Pmx)) 100 ml @ 200 mls/hr Q12 IVPB Last administered on 12/27/16 09:25; Admin Dose 200 MLS/HR; Start 12/19/16 at 21:00 Polyethylene Glycol (Miralax) 17 gm BID PO Last administered on 12/27/16 09:13 ; Admin Dose 17 GM; Start 12/21/16 at 21:00 Insulin Aspart (Novolog Insulin Pen) NOVOLOG *MILD* ALGORI... Q4 SC ; Start at 21:00 Miscellaneous Information 1 ea NOTE XX ; Start 12/21/16 at 17:30 Glucose (Glutose) 15 gm Q15M PRN PO DECREASED GLUCOSE; Start 12/21/16 at 17:30 Glucose (Glutose) 22.5 gm Q15M PRN PO DECREASED GLUCOSE; Start 12/21/16 at 17: 30 Dextrose (D50w Syringe) 25 ml Q15M PRN IV DECREASED GLUCOSE; Start 12/21/16 at 17:30 Dextrose (D50w Syringe) 50 ml Q15M PRN IV DECREASED GLUCOSE; Start 12/21/16 at 17:30 Glucagon (Glucagen) 1 mg Q15M PRN IM DECREASED GLUCOSE; Start 12/21/16 at 17:30 Glucose (Glutose) 15 gm Q15M PRN BUCCAL DECREASED GLUCOSE; Start 12/21/16 at 17 :30 Amlodipine Besylate (Norvasc) 5 mg DAILY PO Last administered on 12/27/16 09: 13; Admin Dose 5 MG; Start 12/24/16 at 10:30 Oxycodone HCl (Roxicodone) 10 mg Q6H PRN PO PAIN LEVEL 7-10 Last administered on 5/22/17at 12:11; Admin Dose 10 MG; Start 12/25/16 at 13:00 TYLER ARZATE MD December 27, 2016 16:35
--- NOTE | 2016-12-27 17:21 | CONS ---
Date/Time of Note Date/Time of Note DATE: 12/27/16 TIME: 17:20 Assessment/Plan Assessment/Plan Additional Assessment/Plan Acute kidney injury Preserved ejection fraction Status post fall Sepsis with bacteremia Paroxysmal atrial fibrillation, currently sinus rhythm History of hypertension Recent UTI Alcohol abuse -Blood pressure trend remains elevated. Given acute kidney injury, no ARLENE inhibitor or ARB at the current time. Increase dose of Norvasc. Remains in sinus rhythm, titrate down amiodarone. Consultation Date/Type/Reason Admit Date/Time December 10, 2016 at 16:57 Type of Consultation: cv Referring Provider: JACK JENNINGS BOLT SORTER 24 HR Interval Summary Free Text/Dictation Denies shortness of breath, chest pain Exam/Review of Systems Vital Signs Vitals Vital Signs Date Time Temp Pulse Resp B/P Pulse Ox O2 Delivery O2 Flow Rate FiO2 12/27/16 16:06 82 12/27/16 15:46 97.7 18 139/64 96 12/27/16 08:00 Nasal Cannula 2.0 Intake and Output 12/26/16 12/26/16 12/27/16 15:00 23:00 07:00 Intake Total 100 ml 150 ml Output Total 600 ml 1000 ml Balance -500 ml -850 ml Exam Sleeping but arousable, no apparent distress Head: normocephalic Respiratory: other (Coarse breath sounds bilaterally, no wheezing) Cardiovascular: other (S1-S2 heard), regular rate and rhythm Gastrointestinal: bowel sounds, non-tender, soft Extremities: edema Results Result Diagram: 12/27/16 0641 12/27/16 0641 Results 24 hrs Laboratory Tests Test 12/26/16 18:03 12/26/16 20:42 12/27/16 04:10 12/27/16 06:41 Bedside Glucose 97 77 80 White Blood Count 7.4 Red Blood Count 2.92 L Hemoglobin 8.8 L Hematocrit 27.4 L Mean Corpuscular Volume 93.8 Mean Corpuscular Hemoglobin 30.1 Mean Corpuscular Hemoglobin Concent 32.1 Red Cell Distribution Width 14.7 H Platelet Count 384 Mean Platelet Volume 9.8 Neutrophils % 80.4 H Lymphocytes % 10.7 L Monocytes % 6.5 Eosinophils % 1.1 Basophils % 0.5 Nucleated Red Blood Cells % 0.0 Neutrophils # 5.9 Lymphocytes # 0.8 Monocytes # 0.5 Eosinophils # 0.1 Basophils # 0.0 Nucleated Red Blood Cells # 0.0 Sodium Level 143 Potassium Level 5.1 Chloride Level 108 Carbon Dioxide Level 24 Anion Gap 16 Blood Urea Nitrogen 50 H Creatinine 5.95 H Glucose Level 76 Calcium Level 10.0 Phosphorus Level 6.5 H Magnesium Level 2.1 Test 12/27/16 08:31 12/27/16 12:09 12/27/16 12:44 12/27/16 17:15 Bedside Glucose 75 83 80 78 Medications Medications Current Medications Ondansetron HCl (Zofran Inj) 4 mg Q6H PRN IV NAUSEA AND/OR VOMITING Last administered on 12/24/16 12:08; Admin Dose 4 MG; Start 12/10/16 at 18:00 Magnesium Hydroxide (Milk Of Mag) 30 ml DAILY PRN PO CONSTIPATION; Start at 18:00 Bisacodyl (Dulcolax) 5 mg DAILY PRN PO CONSTIPATION; Start 12/10/16 at 18:00 Famotidine (Pepcid) 20 mg DAILY PO Last administered on 12/27/16 09:11; Admin Dose 20 MG; Start 12/11/16 at 09:00 Hydralazine HCl (Apresoline) 10 mg Q6H PRN IV SBP>160 Last administered on 12/27 12:11; Admin Dose 10 MG; Start 12/10/16 at 18:00 Atorvastatin Calcium (Lipitor) 10 mg DAILY@21 PO Last administered on 20:45; Admin Dose 10 MG; Start 12/10/16 at 21:00 Heparin Sodium (Porcine) (Heparin (5000 Units/0.5 ml)) 5,000 unit BID SC Last administered on 12/27/16 09:26; Admin Dose 5,000 UNIT; Start 12/11/16 at 21:00 Chlordiazepoxide 50 mg 50 mg BID PO Last administered on 12/27/16 09:12; Admin Dose 50 MG; Start 12/11/16 at 21:00 Amiodarone HCl 900 mg/Dextrose 500 ml @ 0 mls/hr Q0M IV Last administered on 13:49; Admin Dose 33.4 MLS/HR; Start 12/14/16 at 13:00 Diltiazem HCl (Cardizem-D5W 125 Mg/125 ml Drip) 125 ml @ 5 mls/hr TITRATE IV ; Start 12/16/16 at 22:45 Megestrol Acetate (Megace Susp) 400 mg BID PO Last administered on 12/27/16 09 :11; Admin Dose 400 MG; Start 12/17/16 at 13:00 Amiodarone HCl (Cordarone) 400 mg BID PO Last administered on 12/27/16 09:12; Admin Dose 400 MG; Start 12/17/16 at 21:00 Metoprolol Tartrate 50 mg 50 mg BID PO Last administered on 12/27/16 09:13; Admin Dose 50 MG; Start 12/17/16 at 21:00 Meropenem (Merrem 500 Mg/ 100 ml (Pmx)) 100 ml @ 200 mls/hr Q12 IVPB Last administered on 12/27/16 09:25; Admin Dose 200 MLS/HR; Start 12/19/16 at 21:00 Polyethylene Glycol (Miralax) 17 gm BID PO Last administered on 12/27/16 09:13 ; Admin Dose 17 GM; Start 12/21/16 at 21:00 Insulin Aspart (Novolog Insulin Pen) NOVOLOG *MILD* ALGORI... Q4 SC ; Start at 21:00 Miscellaneous Information 1 ea NOTE XX ; Start 12/21/16 at 17:30 Glucose (Glutose) 15 gm Q15M PRN PO DECREASED GLUCOSE; Start 12/21/16 at 17:30 Glucose (Glutose) 22.5 gm Q15M PRN PO DECREASED GLUCOSE; Start 12/21/16 at 17: 30 Dextrose (D50w Syringe) 25 ml Q15M PRN IV DECREASED GLUCOSE; Start 12/21/16 at 17:30 Dextrose (D50w Syringe) 50 ml Q15M PRN IV DECREASED GLUCOSE; Start 12/21/16 at 17:30 Glucagon (Glucagen) 1 mg Q15M PRN IM DECREASED GLUCOSE; Start 12/21/16 at 17:30 Glucose (Glutose) 15 gm Q15M PRN BUCCAL DECREASED GLUCOSE; Start 12/21/16 at 17 :30 Amlodipine Besylate (Norvasc) 5 mg DAILY PO Last administered on 12/27/16 09: 13; Admin Dose 5 MG; Start 12/24/16 at 10:30 Oxycodone HCl (Roxicodone) 10 mg Q6H PRN PO PAIN LEVEL 7-10 Last administered on 12/27/16t 12:11; Admin Dose 10 MG; Start 12/25/16 at 13:00 Zeyad Kelly DO December 27, 2016 17:21
[2016-12-27] MEDS: ATORVASTATIN 10 MG TAB PO SCH (20:19)
[2016-12-28] VITALS (12 sets, daily range): BP systolic 148–190; BP diastolic 71–87; PULSE 79–88; RESP 17–19
[2016-12-28] MEDS: INSULIN ASPART [NOVOLOG] 3 ML PEN SC SCH ×6 (01:00→20:30)
[2016-12-28] MEDS: hydrALAzine 20 MG INJ IV PRN ×2 (01:18→20:28)
[2016-12-28] MEDS: oxyCODONE 5 MG TAB PO PRN ×2 (04:34→17:33)
[2016-12-28 07:46] LABS: ADD SCAN DIFF NO
[2016-12-28 07:51] LABS: BASOPHIL # 0.1 10^3/ul (0.0-0.1); BASOPHILS % 0.8 % (0.0-2.0); EOSINOPHILS # 0.1 10^3/ul (0.0-0.5); EOSINOPHILS % 1.2 % (0.0-7.0); HEMATOCRIT 26.9 % (42.0-52.0); HEMOGLOBIN 8.7 g/dl (14.0-18.0); LYMPHOCYTES % 11.2 % (15.0-51.0); MEAN CORPUSCULAR HEMOGLOBIN 30.2 pg (29.0-33.0); MEAN CORPUSCULAR HGB CONC 32.3 g/dl (32.0-37.0); MEAN CORPUSCULAR VOLUME 93.4 fl (82.0-101.0); MONOCYTE # 0.6 10^3/ul (0.3-0.9); MONOCYTES % 6.4 % (0.0-11.0); NEUTROPHIL # 7.1 10^3/ul (1.6-7.5); NEUTROPHILS % 79.2 % (39.0-77.0); PLATELET COUNT 381 10^3/UL (140-415); RED BLOOD COUNT 2.88 10^6/ul (4.70-6.10); RED CELL DISTRIBUTION WIDTH 14.8 % (11.5-14.5)
[2016-12-28 08:05] LABS: MAGNESIUM 2.2 mg/dl (1.7-2.5); PHOSPHORUS 5.7 mg/dl (2.5-4.9)
[2016-12-28 08:09] LABS: CALCIUM 10.4 mg/dl (8.4-10.2); CREATININE 5.5 mg/dl (0.61-1.24); POTASSIUM 5.6 mmol/L (3.5-5.1)
[2016-12-28] MEDS ORDERED: NA POLYST SULFON 15 GM/60 ML BTL PO ONE (09:00)
--- NOTE | 2016-12-28 09:44 | CONS ---
Date/Time of Note Date/Time of Note DATE: 12/28/16 TIME: 09:43 Assessment/Plan Assessment/Plan Additional Assessment/Plan 1. Acute kidney injury, multifactorial, not improving despite being on IVF hydration, BUN/Cr persistently high ,.started on HD during this admission 2. Hyponatremia - improved 3. Status post fall, which was a mechanical fall, but likely due to the hyponatremia. CT brain is negative. 4. Possible history of chronic kidney disease secondary to hypertensive nephrosclerosis. 5. History of hypertension. 6. History of gout. 7. History of hyperlipidemia. 8. Atrial fibrillation, rate controlled. 9. History of alcohol abuse. 10. Thrombocytopenia secondary to alcohol abuse. 11. sepsis due to UTI and bacteremia with Blood cx and urine Cx growing proteus PLAN: started on HD through right iJ danielle HD catheter , making good urine 2.2 L in last 24 hr, but still has high BUn/Cr - no Plan for HD today, will plan to d/ c his danielle catheter after PICC line in place currently Right IJ is being used for IV access, plan is to d/c it so Nurse instructed to get other IV access KODY PICC line requested for Access Blood cx and Urine cx grew proteus - on IV abx - Follow up blood cx on 12/16/16 negative to date out of bed to chair avoid sedative, hypnotics will continue to follow up Consultation Date/Type/Reason Admit Date/Time December 10, 2016 at 16:57 Type of Consultation: NEPHROLOGY Referring Provider: JAKC JENNINGS [employer]MENT MANAGER 24 HR Interval Summary Free Text/Dictation made good urine output 2.2 L, afebrile, Bp stable Exam/Review of Systems Vital Signs Vitals Vital Signs Date Time Temp Pulse Resp B/P Pulse Ox O2 Delivery O2 Flow Rate FiO2 12/28/16 08:05 79 12/28/16 08:00 98.3 18 190/87 95 12/27/16 20:18 Nasal Cannula 2.0 Intake and Output 12/27/16 12/27/16 12/28/16 15:00 23:00 07:00 Intake Total 450 ml 150 ml Output Total 950 ml 1300 ml Balance -500 ml -1150 ml Results Result Diagram: 12/28/16 0645 12/28/16 0645 Results 24 hrs Laboratory Tests Test 12/27/16 12:09 12/27/16 12:44 12/27/16 17:15 12/27/16 20:18 Bedside Glucose 83 80 78 84 Test 12/28/16 00:33 12/28/16 04:33 12/28/16 06:45 Bedside Glucose 82 85 White Blood Count 9.0 # Red Blood Count 2.88 L Hemoglobin 8.7 L Hematocrit 26.9 L Mean Corpuscular Volume 93.4 Mean Corpuscular Hemoglobin 30.2 Mean Corpuscular Hemoglobin Concent 32.3 Red Cell Distribution Width 14.8 H Platelet Count 381 Mean Platelet Volume 10.0 Neutrophils % 79.2 H Lymphocytes % 11.2 L Monocytes % 6.4 Eosinophils % 1.2 Basophils % 0.8 Nucleated Red Blood Cells % 0.0 Neutrophils # 7.1 Lymphocytes # 1.0 Monocytes # 0.6 Eosinophils # 0.1 Basophils # 0.1 Nucleated Red Blood Cells # 0.0 Sodium Level 143 Potassium Level 5.6 H Chloride Level 113 H Carbon Dioxide Level 21 Anion Gap 15 Blood Urea Nitrogen 49 H Creatinine 5.50 H Glucose Level 78 Calcium Level 10.4 H Phosphorus Level 5.7 H Magnesium Level 2.2 Medications Medications Current Medications Ondansetron HCl (Zofran Inj) 4 mg Q6H PRN IV NAUSEA AND/OR VOMITING Last administered on 12/24/16 12:08; Admin Dose 4 MG; Start 12/10/16 at 18:00 Magnesium Hydroxide (Milk Of Mag) 30 ml DAILY PRN PO CONSTIPATION; Start at 18:00 Bisacodyl (Dulcolax) 5 mg DAILY PRN PO CONSTIPATION; Start 12/10/16 at 18:00 Famotidine (Pepcid) 20 mg DAILY PO Last administered on 12/27/16 09:11; Admin Dose 20 MG; Start 12/11/16 at 09:00 Hydralazine HCl (Apresoline) 10 mg Q6H PRN IV SBP>160 Last administered on 12/28 01:18; Admin Dose 10 MG; Start 12/10/16 at 18:00 Atorvastatin Calcium (Lipitor) 10 mg DAILY@21 PO Last administered on 20:19; Admin Dose 10 MG; Start 12/10/16 at 21:00 Heparin Sodium (Porcine) (Heparin (5000 Units/0.5 ml)) 5,000 unit BID SC Last administered on 12/27/16 20:22; Admin Dose 5,000 UNIT; Start 12/11/16 at 21:00 Chlordiazepoxide 50 mg 50 mg BID PO Last administered on 12/27/16 20:19; Admin Dose 50 MG; Start 12/11/16 at 21:00 Amiodarone HCl 900 mg/Dextrose 500 ml @ 0 mls/hr Q0M IV Last administered on 13:49; Admin Dose 33.4 MLS/HR; Start 12/14/16 at 13:00 Diltiazem HCl (Cardizem-D5W 125 Mg/125 ml Drip) 125 ml @ 5 mls/hr TITRATE IV ; Start 12/16/16 at 22:45 Megestrol Acetate (Megace Susp) 400 mg BID PO Last administered on 12/27/16 20 :19; Admin Dose 400 MG; Start 12/17/16 at 13:00 Metoprolol Tartrate 50 mg 50 mg BID PO Last administered on 12/27/16 20:20; Admin Dose 50 MG; Start 12/17/16 at 21:00 Meropenem (Merrem 500 Mg/ 100 ml (Pmx)) 100 ml @ 200 mls/hr Q12 IVPB Last administered on 12/27/16 20:19; Admin Dose 200 MLS/HR; Start 12/19/16 at 21:00 Polyethylene Glycol (Miralax) 17 gm BID PO Last administered on 12/27/16 20:19 ; Admin Dose 17 GM; Start 12/21/16 at 21:00 Insulin Aspart (Novolog Insulin Pen) NOVOLOG *MILD* ALGORI... Q4 SC ; Start at 21:00 Miscellaneous Information 1 ea NOTE XX ; Start 12/21/16 at 17:30 Glucose (Glutose) 15 gm Q15M PRN PO DECREASED GLUCOSE; Start 12/21/16 at 17:30 Glucose (Glutose) 22.5 gm Q15M PRN PO DECREASED GLUCOSE; Start 12/21/16 at 17: 30 Dextrose (D50w Syringe) 25 ml Q15M PRN IV DECREASED GLUCOSE; Start 12/21/16 at 17:30 Dextrose (D50w Syringe) 50 ml Q15M PRN IV DECREASED GLUCOSE; Start 12/21/16 at 17:30 Glucagon (Glucagen) 1 mg Q15M PRN IM DECREASED GLUCOSE; Start 12/21/16 at 17:30 Glucose (Glutose) 15 gm Q15M PRN BUCCAL DECREASED GLUCOSE; Start 12/21/16 at 17 :30 Oxycodone HCl (Roxicodone) 10 mg Q6H PRN PO PAIN LEVEL 7-10 Last administered on 12/28/16 04:34; Admin Dose 10 MG; Start 12/25/16 at 13:00 Amiodarone HCl (Cordarone) 200 mg BID PO Last administered on 12/27/16 20:29; Admin Dose 200 MG; Start 12/27/16 at 21:00 Amlodipine Besylate (Norvasc) 5 mg BID PO Last administered on 12/27/16 20:21 ; Admin Dose 5 MG; Start 12/27/16 at 21:00 MADELYN MIRANDA MD December 28, 2016 09:44
[2016-12-28] MEDS: CHLORDIAZEPOXIDE 25 MG CAP PO SCH ×2 (10:08→20:28)
[2016-12-28] MEDS: FAMOTIDINE 20 MG TAB PO SCH (10:08)
[2016-12-28] MEDS: AMLODIPINE 5 MG TAB PO SCH ×2 (10:08→20:30)
[2016-12-28] MEDS: AMIODARONE 200 MG TAB PO SCH ×2 (10:08→20:29)
[2016-12-28] MEDS: MEGESTROL (40 MG/ML) 10ML CUP PO SCH ×2 (10:09→20:28)
[2016-12-28] MEDS: POLYETHYLENE GLYCOL 17 GM PACKET PO SCH ×2 (10:09→20:28)
[2016-12-28] MEDS: METOPROLOL 50 MG TAB PO SCH ×2 (10:16→20:29)
[2016-12-28] MEDS: MEROPENEM 500 MG/100 ML (PMX) 100 ML IVPB SCH (10:16)
[2016-12-28] MEDS: HEPARIN 5,000 UNIT/0.5 ML VIAL SC SCH ×2 (10:18→20:31)
--- NOTE | 2016-12-28 12:23 | PN ---
Date/Time of Note Date/Time of Note DATE: 12/28/16 TIME: 12:22 Assessment/Plan VTE Prophylaxis VTE Prophylaxis Intervention: heparin Lines/Catheters IV [facility] Type ([facility] Peripheral IV Urinary Cath still in place: Yes Reason Cath still needed: other (indicate) Assessment/Plan Chief Complaint/Hosp Course 1. Acute kidney injury. Etiology unclear. Continue IV hydration. Nephrology following. Avoid nephrotoxic medications. The patient was temporarily started on hemodialysis. 2. Status post fall. Brain CT negative for any acute intracranial findings. Physical therapy evaluation. 3. Essential hypertension. Continue routine antihypertensives and as needed antihypertensives for any systolic blood pressure readings greater than 160 mercury. 4. Gout. Uric acid levels within normal limits. 5. Sepsis with underlying urinary tract infection and gram-negative bacteremia. The patient on antibiotics as per Infectious Disease. No evidence of septic shock. 6. Hyperlipidemia. Continue statins. Fasting lipid panel suboptimal. 7. Paroxysmal atrial fibrillation. The patient will be continued on beta blockers and amiodarone.. Currently in sinus rhythm. Cardiology following. 8. Alcohol abuse. Continue daily banana bag. Monitor for any alcohol withdrawal delirium. 9. Dysphagia. Continue aspiration precautions. Diet as per speech therapy. 10. Acute encephalopathy. Probably metabolic in origin. Monitor. Brain CT scan negative for any acute findings. 11. Fluids, electrolytes, and nutrition. Low-cholesterol diet. 12. DVT prophylaxis. Subcutaneous heparin. 13. Gastrointestinal prophylaxis. Histamine 2 receptor blockers. 14. Plan. Continue antibiotics as per infectious diseases. Monitor renal function closely. Await further recommendations from nephrology. Continue physical therapy. Kayexalate for hyperkalemia. Case discussed with Dr. Miramontes. Problems: Subjective 24 Hr Interval Summary Free Text/Dictation Patient is more lethargic today. Exam/Review of Systems Vital Signs Vitals Vital Signs Date Time Temp Pulse Resp B/P Pulse Ox O2 Delivery O2 Flow Rate FiO2 12/28/16 11:45 98.9 82 18 148/71 99 12/27/16 20:18 Nasal Cannula 2.0 Intake and Output 12/27/16 12/27/16 12/28/16 14:59 22:59 06:59 Intake Total 450 ml 150 ml Output Total 950 ml 1300 ml Balance -500 ml -1150 ml Exam GENERAL: This is a well-built, well-nourished male patient lying in bed in no apparent distress. HEENT: Head normocephalic and atraumatic. Eyes: Anicteric sclerae. Conjunctivae clear. ENT: Nasal septum is midline. Oral mucosa is dry. NECK: Supple. No JVD noticed. RESPIRATORY: Bilaterally clear to auscultation. No adventitious breath sounds. No use of accessory muscles of respiration. CARDIAC: Regular rate and rhythm. S1-S2 heard. ABDOMEN: Soft, nontender, nondistended. Bowel sounds positive in all 4 quadrants. GENITOURINARY: Deferred. EXTREMITIES: No cyanosis, no clubbing, no edema. Peripheral pulses are palpable. NEUROLOGIC: The patient is lethargic. Results Result Diagram: 12/28/16 0645 12/28/16 0645 Results 24 hrs Laboratory Tests Test 12/27/16 12:44 12/27/16 17:15 12/27/16 20:18 12/28/16 00:33 Bedside Glucose 80 78 84 82 Test 12/28/16 04:33 12/28/16 06:45 12/28/16 10:22 Bedside Glucose 85 80 White Blood Count 9.0 # Red Blood Count 2.88 L Hemoglobin 8.7 L Hematocrit 26.9 L Mean Corpuscular Volume 93.4 Mean Corpuscular Hemoglobin 30.2 Mean Corpuscular Hemoglobin Concent 32.3 Red Cell Distribution Width 14.8 H Platelet Count 381 Mean Platelet Volume 10.0 Neutrophils % 79.2 H Lymphocytes % 11.2 L Monocytes % 6.4 Eosinophils % 1.2 Basophils % 0.8 Nucleated Red Blood Cells % 0.0 Neutrophils # 7.1 Lymphocytes # 1.0 Monocytes # 0.6 Eosinophils # 0.1 Basophils # 0.1 Nucleated Red Blood Cells # 0.0 Sodium Level 143 Potassium Level 5.6 H Chloride Level 113 H Carbon Dioxide Level 21 Anion Gap 15 Blood Urea Nitrogen 49 H Creatinine 5.50 H Glucose Level 78 Calcium Level 10.4 H Phosphorus Level 5.7 H Magnesium Level 2.2 Medications Medications Current Medications Ondansetron HCl (Zofran Inj) 4 mg Q6H PRN IV NAUSEA AND/OR VOMITING Last administered on 12/24/16t 12:08; Admin Dose 4 MG; Start 12/10/16 at 18:00 Magnesium Hydroxide (Milk Of Mag) 30 ml DAILY PRN PO CONSTIPATION; Start at 18:00 Bisacodyl (Dulcolax) 5 mg DAILY PRN PO CONSTIPATION; Start 12/10/16 at 18:00 Famotidine (Pepcid) 20 mg DAILY PO Last administered on 12/28/16 10:08; Admin Dose 20 MG; Start 12/11/16 at 09:00 Hydralazine HCl (Apresoline) 10 mg Q6H PRN IV SBP>160 Last administered on 12/28 01:18; Admin Dose 10 MG; Start 12/10/16 at 18:00 Atorvastatin Calcium (Lipitor) 10 mg DAILY@21 PO Last administered on 20:19; Admin Dose 10 MG; Start 12/10/16 at 21:00 Heparin Sodium (Porcine) (Heparin (5000 Units/0.5 ml)) 5,000 unit BID SC Last administered on 12/28/16 10:18; Admin Dose 5,000 UNIT; Start 12/11/16 at 21:00 Chlordiazepoxide 50 mg 50 mg BID PO Last administered on 12/28/16 10:08; Admin Dose 50 MG; Start 12/11/16 at 21:00 Amiodarone HCl 900 mg/Dextrose 500 ml @ 0 mls/hr Q0M IV Last administered on 13:49; Admin Dose 33.4 MLS/HR; Start 12/14/16 at 13:00 Diltiazem HCl (Cardizem-D5W 125 Mg/125 ml Drip) 125 ml @ 5 mls/hr TITRATE IV ; Start 12/16/16 at 22:45 Megestrol Acetate (Megace Susp) 400 mg BID PO Last administered on 12/28/16 10 :09; Admin Dose 400 MG; Start 12/17/16 at 13:00 Metoprolol Tartrate 50 mg 50 mg BID PO Last administered on 12/28/16 10:16; Admin Dose 50 MG; Start 12/17/16 at 21:00 Meropenem (Merrem 500 Mg/ 100 ml (Pmx)) 100 ml @ 200 mls/hr Q12 IVPB Last administered on 12/28/16 10:16; Admin Dose 200 MLS/HR; Start 12/19/16 at 21:00 Polyethylene Glycol (Miralax) 17 gm BID PO Last administered on 12/28/16 10:09 ; Admin Dose 17 GM; Start 12/21/16 at 21:00 Insulin Aspart (Novolog Insulin Pen) NOVOLOG *MILD* ALGORI... Q4 SC ; Start at 21:00 Miscellaneous Information 1 ea NOTE XX ; Start 12/21/16 at 17:30 Glucose (Glutose) 15 gm Q15M PRN PO DECREASED GLUCOSE; Start 12/21/16 at 17:30 Glucose (Glutose) 22.5 gm Q15M PRN PO DECREASED GLUCOSE; Start 12/21/16 at 17: 30 Dextrose (D50w Syringe) 25 ml Q15M PRN IV DECREASED GLUCOSE; Start 12/21/16 at 17:30 Dextrose (D50w Syringe) 50 ml Q15M PRN IV DECREASED GLUCOSE; Start 12/21/16 at 17:30 Glucagon (Glucagen) 1 mg Q15M PRN IM DECREASED GLUCOSE; Start 12/21/16 at 17:30 Glucose (Glutose) 15 gm Q15M PRN BUCCAL DECREASED GLUCOSE; Start 12/21/16 at 17 :30 Oxycodone HCl (Roxicodone) 10 mg Q6H PRN PO PAIN LEVEL 7-10 Last administered on 12/28/16 04:34; Admin Dose 10 MG; Start 12/25/16 at 13:00 Amiodarone HCl (Cordarone) 200 mg BID PO Last administered on 12/28/16 10:08; Admin Dose 200 MG; Start 12/27/16 at 21:00 Amlodipine Besylate (Norvasc) 5 mg BID PO Last administered on 12/28/16 10:08 ; Admin Dose 5 MG; Start 12/27/16 at 21:00 JACK JENNINGS NP December 28, 2016 12:23
--- NOTE | 2016-12-28 13:03 | CONS ---
Date/Time of Note Date/Time of Note DATE: 12/28/16 TIME: 13:02 Assessment/Plan Assessment/Plan Additional Assessment/Plan Acute kidney injury Preserved ejection fraction Status post fall Sepsis with bacteremia Paroxysmal atrial fibrillation, currently sinus rhythm History of hypertension Recent UTI Alcohol abuse -Blood pressure trend still labile but improving. Continue Norvasc. Remains in sinus rhythm, continue amiodarone and continue to titrate down. Consider decreasing dose of Librium and/or possibly stopping given patient's fatigue Consultation Date/Type/Reason Admit Date/Time December 10, 2016 at 16:57 Type of Consultation: cv Referring Provider: JACK JENNINGS CELL TECHNICIAN 24 HR Interval Summary Free Text/Dictation Denies shortness of breath, chest pain or palpitations Exam/Review of Systems Vital Signs Vitals Vital Signs Date Time Temp Pulse Resp B/P Pulse Ox O2 Delivery O2 Flow Rate FiO2 12/28/16 12:30 80 12/28/16 11:45 98.9 18 148/71 99 12/27/16 20:18 Nasal Cannula 2.0 Intake and Output 12/27/16 12/27/16 12/28/16 15:00 23:00 07:00 Intake Total 450 ml 150 ml Output Total 950 ml 1300 ml Balance -500 ml -1150 ml Exam Sleeping but arousable, no apparent distress, follows commands Head: normocephalic Neck: supple Respiratory: other (Coarse breath sounds bilaterally, no wheezing) Cardiovascular: other (S1-S2 heard), regular rate and rhythm Gastrointestinal: bowel sounds, non-tender, soft Extremities: edema Results Result Diagram: 12/28/16 0645 12/28/16 0645 Results 24 hrs Laboratory Tests Test 12/27/16 17:15 12/27/16 20:18 12/28/16 00:33 12/28/16 04:33 Bedside Glucose 78 84 82 85 Test 12/28/16 06:45 12/28/16 10:22 White Blood Count 9.0 # Red Blood Count 2.88 L Hemoglobin 8.7 L Hematocrit 26.9 L Mean Corpuscular Volume 93.4 Mean Corpuscular Hemoglobin 30.2 Mean Corpuscular Hemoglobin Concent 32.3 Red Cell Distribution Width 14.8 H Platelet Count 381 Mean Platelet Volume 10.0 Neutrophils % 79.2 H Lymphocytes % 11.2 L Monocytes % 6.4 Eosinophils % 1.2 Basophils % 0.8 Nucleated Red Blood Cells % 0.0 Neutrophils # 7.1 Lymphocytes # 1.0 Monocytes # 0.6 Eosinophils # 0.1 Basophils # 0.1 Nucleated Red Blood Cells # 0.0 Sodium Level 143 Potassium Level 5.6 H Chloride Level 113 H Carbon Dioxide Level 21 Anion Gap 15 Blood Urea Nitrogen 49 H Creatinine 5.50 H Glucose Level 78 Calcium Level 10.4 H Phosphorus Level 5.7 H Magnesium Level 2.2 Bedside Glucose 80 Medications Medications Current Medications Ondansetron HCl (Zofran Inj) 4 mg Q6H PRN IV NAUSEA AND/OR VOMITING Last administered on 12/24/16 12:08; Admin Dose 4 MG; Start 12/10/16 at 18:00 Magnesium Hydroxide (Milk Of Mag) 30 ml DAILY PRN PO CONSTIPATION; Start at 18:00 Bisacodyl (Dulcolax) 5 mg DAILY PRN PO CONSTIPATION; Start 12/10/16 at 18:00 Famotidine (Pepcid) 20 mg DAILY PO Last administered on 12/28/16 10:08; Admin Dose 20 MG; Start 12/11/16 at 09:00 Hydralazine HCl (Apresoline) 10 mg Q6H PRN IV SBP>160 Last administered on 12/28 01:18; Admin Dose 10 MG; Start 12/10/16 at 18:00 Atorvastatin Calcium (Lipitor) 10 mg DAILY@21 PO Last administered on 20:19; Admin Dose 10 MG; Start 12/10/16 at 21:00 Heparin Sodium (Porcine) (Heparin (5000 Units/0.5 ml)) 5,000 unit BID SC Last administered on 12/28/16 10:18; Admin Dose 5,000 UNIT; Start 12/11/16 at 21:00 Chlordiazepoxide 50 mg 50 mg BID PO Last administered on 12/28/16 10:08; Admin Dose 50 MG; Start 12/11/16 at 21:00 Amiodarone HCl 900 mg/Dextrose 500 ml @ 0 mls/hr Q0M IV Last administered on 13:49; Admin Dose 33.4 MLS/HR; Start 12/14/16 at 13:00 Diltiazem HCl (Cardizem-D5W 125 Mg/125 ml Drip) 125 ml @ 5 mls/hr TITRATE IV ; Start 12/16/16 at 22:45 Megestrol Acetate (Megace Susp) 400 mg BID PO Last administered on 12/28/16 10 :09; Admin Dose 400 MG; Start 12/17/16 at 13:00 Metoprolol Tartrate 50 mg 50 mg BID PO Last administered on 12/28/16 10:16; Admin Dose 50 MG; Start 12/17/16 at 21:00 Meropenem (Merrem 500 Mg/ 100 ml (Pmx)) 100 ml @ 200 mls/hr Q12 IVPB Last administered on 12/28/16 10:16; Admin Dose 200 MLS/HR; Start 12/19/16 at 21:00 Polyethylene Glycol (Miralax) 17 gm BID PO Last administered on 12/28/16 10:09 ; Admin Dose 17 GM; Start 12/21/16 at 21:00 Insulin Aspart (Novolog Insulin Pen) NOVOLOG *MILD* ALGORI... Q4 SC ; Start at 21:00 Miscellaneous Information 1 ea NOTE XX ; Start 12/21/16 at 17:30 Glucose (Glutose) 15 gm Q15M PRN PO DECREASED GLUCOSE; Start 12/21/16 at 17:30 Glucose (Glutose) 22.5 gm Q15M PRN PO DECREASED GLUCOSE; Start 12/21/16 at 17: 30 Dextrose (D50w Syringe) 25 ml Q15M PRN IV DECREASED GLUCOSE; Start 12/21/16 at 17:30 Dextrose (D50w Syringe) 50 ml Q15M PRN IV DECREASED GLUCOSE; Start 12/21/16 at 17:30 Glucagon (Glucagen) 1 mg Q15M PRN IM DECREASED GLUCOSE; Start 12/21/16 at 17:30 Glucose (Glutose) 15 gm Q15M PRN BUCCAL DECREASED GLUCOSE; Start 12/21/16 at 17 :30 Oxycodone HCl (Roxicodone) 10 mg Q6H PRN PO PAIN LEVEL 7-10 Last administered on 12/28/16 04:34; Admin Dose 10 MG; Start 12/25/16 at 13:00 Amiodarone HCl (Cordarone) 200 mg BID PO Last administered on 12/28/16 10:08; Admin Dose 200 MG; Start 12/27/16 at 21:00 Amlodipine Besylate (Norvasc) 5 mg BID PO Last administered on 12/28/16t 10:08 ; Admin Dose 5 MG; Start 12/27/16 at 21:00 Zeyad Kelly DO December 28, 2016 13:03
--- NOTE | 2016-12-28 16:04 | PN ---
Date/Time of Note Date/Time of Note DATE: 12/28/16 TIME: 16:02 Assessment/Plan VTE Prophylaxis VTE Prophylaxis Intervention: SCD's Lines/Catheters IV Catheter Type (from Nrs): Peripheral IV Urinary Cath still in place: Yes Reason Cath still needed: urinary retention Assessment/Plan Chief Complaint/Hosp Course Problems: Assessment/Plan Dysphagia * Failure to thrive * Acute kidney injury * hypertension * Gout * Atrial fibrillation Plan * continue present management * swallow evaluation * still for barium swallow with speech evaluation Subjective 24 Hr Interval Summary Free Text/Dictation * Course reviewed with RN * patient seen and examined * still for Barium swallow evaluation with speech therapy Exam/Review of Systems Vital Signs Vitals Vital Signs Date Time Temp Pulse Resp B/P Pulse Ox O2 Delivery O2 Flow Rate FiO2 12/28/16 12:30 80 12/28/16 11:45 98.9 18 148/71 99 12/27/16 20:18 Nasal Cannula 2.0 Intake and Output 12/27/16 12/27/16 12/28/16 15:00 23:00 07:00 Intake Total 450 ml 150 ml Output Total 950 ml 1300 ml Balance -500 ml -1150 ml Exam Constitutional: frail Neck: non-tender, supple Respiratory: clear to auscultation, normal air movement Cardiovascular: nl pulses, regular rate and rhythm Gastrointestinal: non-tender, soft Musculoskeletal: nl extremities to inspection Extremities: normal pulses Results Result Diagram: 12/28/16 0645 12/28/16 0645 Results 24 hrs Laboratory Tests Test 12/27/16 17:15 12/27/16 20:18 12/28/16 00:33 12/28/16 04:33 Bedside Glucose 78 84 82 85 Test 12/28/16 06:45 12/28/16 10:22 12/28/16 14:28 White Blood Count 9.0 # Red Blood Count 2.88 L Hemoglobin 8.7 L Hematocrit 26.9 L Mean Corpuscular Volume 93.4 Mean Corpuscular Hemoglobin 30.2 Mean Corpuscular Hemoglobin Concent 32.3 Red Cell Distribution Width 14.8 H Platelet Count 381 Mean Platelet Volume 10.0 Neutrophils % 79.2 H Lymphocytes % 11.2 L Monocytes % 6.4 Eosinophils % 1.2 Basophils % 0.8 Nucleated Red Blood Cells % 0.0 Neutrophils # 7.1 Lymphocytes # 1.0 Monocytes # 0.6 Eosinophils # 0.1 Basophils # 0.1 Nucleated Red Blood Cells # 0.0 Sodium Level 143 Potassium Level 5.6 H Chloride Level 113 H Carbon Dioxide Level 21 Anion Gap 15 Blood Urea Nitrogen 49 H Creatinine 5.50 H Glucose Level 78 Calcium Level 10.4 H Phosphorus Level 5.7 H Magnesium Level 2.2 Bedside Glucose 80 81 Medications Medications Current Medications Ondansetron HCl (Zofran Inj) 4 mg Q6H PRN IV NAUSEA AND/OR VOMITING Last administered on 12/24/16 12:08; Admin Dose 4 MG; Start 12/10/16 at 18:00 Magnesium Hydroxide (Milk Of Mag) 30 ml DAILY PRN PO CONSTIPATION; Start at 18:00 Bisacodyl (Dulcolax) 5 mg DAILY PRN PO CONSTIPATION; Start 12/10/16 at 18:00 Famotidine (Pepcid) 20 mg DAILY PO Last administered on 12/28/16 10:08; Admin Dose 20 MG; Start 12/11/16 at 09:00 Hydralazine HCl (Apresoline) 10 mg Q6H PRN IV SBP>160 Last administered on 12/28 01:18; Admin Dose 10 MG; Start 12/10/16 at 18:00 Atorvastatin Calcium (Lipitor) 10 mg DAILY@21 PO Last administered on 20:19; Admin Dose 10 MG; Start 12/10/16 at 21:00 Heparin Sodium (Porcine) (Heparin (5000 Units/0.5 ml)) 5,000 unit BID SC Last administered on 12/28/16 10:18; Admin Dose 5,000 UNIT; Start 12/11/16 at 21:00 Chlordiazepoxide 50 mg 50 mg BID PO Last administered on 12/28/16 10:08; Admin Dose 50 MG; Start 12/11/16 at 21:00 Amiodarone HCl 900 mg/Dextrose 500 ml @ 0 mls/hr Q0M IV Last administered on 13:49; Admin Dose 33.4 MLS/HR; Start 12/14/16 at 13:00 Diltiazem HCl (Cardizem-D5W 125 Mg/125 ml Drip) 125 ml @ 5 mls/hr TITRATE IV ; Start 12/16/16 at 22:45 Megestrol Acetate (Megace Susp) 400 mg BID PO Last administered on 12/28/16 10 :09; Admin Dose 400 MG; Start 12/17/16 at 13:00 Metoprolol Tartrate (Lopressor) 50 mg BID PO Last administered on 12/28/16 10: 16; Admin Dose 50 MG; Start 12/17/16 at 21:00 Polyethylene Glycol (Miralax) 17 gm BID PO Last administered on 12/28/16 10:09 ; Admin Dose 17 GM; Start 12/21/16 at 21:00 Insulin Aspart (Novolog Insulin Pen) NOVOLOG *MILD* ALGORI... Q4 SC ; Start at 21:00 Miscellaneous Information 1 ea NOTE XX ; Start 12/21/16 at 17:30 Glucose (Glutose) 15 gm Q15M PRN PO DECREASED GLUCOSE; Start 12/21/16 at 17:30 Glucose (Glutose) 22.5 gm Q15M PRN PO DECREASED GLUCOSE; Start 12/21/16 at 17: 30 Dextrose (D50w Syringe) 25 ml Q15M PRN IV DECREASED GLUCOSE; Start 12/21/16 at 17:30 Dextrose (D50w Syringe) 50 ml Q15M PRN IV DECREASED GLUCOSE; Start 12/21/16 at 17:30 Glucagon (Glucagen) 1 mg Q15M PRN IM DECREASED GLUCOSE; Start 12/21/16 at 17:30 Glucose (Glutose) 15 gm Q15M PRN BUCCAL DECREASED GLUCOSE; Start 12/21/16 at 17 :30 Oxycodone HCl (Roxicodone) 10 mg Q6H PRN PO PAIN LEVEL 7-10 Last administered on 12/28/16 04:34; Admin Dose 10 MG; Start 12/25/16 at 13:00 Amiodarone HCl (Cordarone) 200 mg BID PO Last administered on 12/28/16 10:08; Admin Dose 200 MG; Start 12/27/16 at 21:00 Amlodipine Besylate (Norvasc) 5 mg BID PO Last administered on 12/28/16 10:08 ; Admin Dose 5 MG; Start 12/27/16 at 21:00 TYLER ARZATE MD December 28, 2016 16:04
--- NOTE | 2016-12-28 19:00 | PN ---
DATE: 12/28/2016 SUBJECTIVE: No acute changes. The patient is still lethargic and very weak. No fevers. VITAL SIGNS: Temperature 98.9, pulse 80, respirations 18, blood pressure 148/71, saturation 99% on nasal cannula. LAB: WBC 9, H and H 8.7 and 26.9, platelets 381, neutrophils 79.2. BUN 49, creatinine 5.50. INDWELLINGS: Norris, Mccormack catheter. ANTIMICROBIALS: The patient remains on meropenem. PHYSICAL EXAMINATION: GENERAL: This is a well-developed, chronically ill-appearing, elderly man who is in no distress. HEENT: Head atraumatic, normocephalic. Sclerae anicteric. Buccal mucosa dry. NECK: Supple. Trachea midline. CHEST: Rise symmetrical. Breath sounds diminished to bases. HEART: S1, S2. ABDOMEN: Soft, bowel tones present. EXTREMITIES: With trace edema. ASSESSMENT: 1. Status post sepsis with Proteus mirabilis bacteremia secondary to #2. 2. Status post Proteus mirabilis urinary tract infection. 3. Acute on chronic kidney disease. 4. Encephalopathy. 5. History of ETOH abuse. 6. Resolved pneumonia. 7. Hypertension and atrial fibrillation. 8. 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 PLAN: The patient remains stable. Repeat blood cultures negative. He completed 2 weeks antibiotic s for bacteremia. We are going to discontinue Merrem and observe him. Continue anti-aspiration pre cautions. Follow recommendations of consultants. Dictated By: CHERRIE JAUREGUI ARCHITECT INTERN for AY[facility] RUIZ/RIKA Conf#: [id number] DID#: [id number]
[2016-12-28] MEDS: ATORVASTATIN 10 MG TAB PO SCH (20:30)
[2016-12-29] VITALS (15 sets, daily range): BP systolic 104–169; BP diastolic 57–104; PULSE 71–89; RESP 17–20
[2016-12-29] MEDS: INSULIN ASPART [NOVOLOG] 3 ML PEN SC SCH ×6 (00:37→21:00)
[2016-12-29 07:35] LABS: ADD SCAN DIFF NO
[2016-12-29 07:43] LABS: BASOPHIL # 0.1 10^3/ul (0.0-0.1); BASOPHILS % 0.8 % (0.0-2.0); EOSINOPHILS # 0.2 10^3/ul (0.0-0.5); EOSINOPHILS % 2.4 % (0.0-7.0); HEMATOCRIT 27.3 % (42.0-52.0); HEMOGLOBIN 8.8 g/dl (14.0-18.0); LYMPHOCYTES % 10.9 % (15.0-51.0); MEAN CORPUSCULAR HGB CONC 32.2 g/dl (32.0-37.0); MEAN CORPUSCULAR VOLUME 93.2 fl (82.0-101.0); MEAN PLATELET VOLUME 9.6 fl (7.4-10.4); MONOCYTE # 0.5 10^3/ul (0.3-0.9); MONOCYTES % 6.2 % (0.0-11.0); NEUTROPHIL # 6.8 10^3/ul (1.6-7.5); NEUTROPHILS % 78.5 % (39.0-77.0); PLATELET COUNT 406 10^3/UL (140-415); RED BLOOD COUNT 2.93 10^6/ul (4.70-6.10); RED CELL DISTRIBUTION WIDTH 14.9 % (11.5-14.5); WHITE BLOOD COUNT 8.7 10^3/ul (4.8-10.8)
[2016-12-29 07:57] LABS: POTASSIUM 4.9 mmol/L (3.5-5.1)
[2016-12-29 08:00] LABS: CALCIUM 10.4 mg/dl (8.4-10.2); CREATININE 6.22 mg/dl (0.61-1.24)
[2016-12-29 08:34] LABS: MAGNESIUM 2.1 mg/dl (1.7-2.5); PHOSPHORUS 5.9 mg/dl (2.5-4.9)
[2016-12-29] MEDS: MEGESTROL (40 MG/ML) 10ML CUP PO SCH ×2 (08:37→21:17)
[2016-12-29] MEDS: CHLORDIAZEPOXIDE 25 MG CAP PO SCH (08:37)
[2016-12-29] MEDS: POLYETHYLENE GLYCOL 17 GM PACKET PO SCH ×2 (08:38→21:17)
[2016-12-29] MEDS: AMIODARONE 200 MG TAB PO SCH ×2 (08:38→21:16)
[2016-12-29] MEDS: AMLODIPINE 5 MG TAB PO SCH ×3 (08:38→22:46)
[2016-12-29] MEDS: FAMOTIDINE 20 MG TAB PO SCH (08:38)
[2016-12-29] MEDS: METOPROLOL 50 MG TAB PO SCH ×3 (08:38→22:45)
[2016-12-29] MEDS: HEPARIN 5,000 UNIT/0.5 ML VIAL SC SCH ×2 (08:50→21:22)
[2016-12-29] MEDS: oxyCODONE 5 MG TAB PO PRN ×2 (08:56→17:20)
--- NOTE | 2016-12-29 09:06 | CONS ---
Date/Time of Note Date/Time of Note DATE: 12/29/16 TIME: 09:04 Assessment/Plan Assessment/Plan Additional Assessment/Plan 1. Acute kidney injury, multifactorial, not improving despite being on IVF hydration, BUN/Cr persistently high ,.started on HD during this admission 2. Hyponatremia - improved 3. Status post fall, which was a mechanical fall, but likely due to the hyponatremia. CT brain is negative. 4. Possible history of chronic kidney disease secondary to hypertensive nephrosclerosis. 5. History of hypertension. 6. History of gout. 7. History of hyperlipidemia. 8. Atrial fibrillation, rate controlled. 9. History of alcohol abuse. 10. Thrombocytopenia secondary to alcohol abuse. 11. sepsis due to UTI and bacteremia with Blood cx and urine Cx growing proteus PLAN: started on HD through right iJ danielle HD catheter , making good urine but still has high BUn/Cr - lasix 20mg iV x 1 stat, CXR stat to follow up on pul congestion/edema- possible HD today depending on CXR result currently Right IJ is being used for IV access PICC line requested for Access Blood cx and Urine cx grew proteus - on IV abx - Follow up blood cx on 12/16/16 negative to date out of bed to chair avoid sedative, hypnotics will continue to follow up Consultation Date/Type/Reason Admit Date/Time December 10, 2016 at 16:57 Type of Consultation: NEPHROLOGY Referring Provider: JACK JENNINGS NP 24 HR Interval Summary Free Text/Dictation c/o COugh,SOB, not able to get out of bed,. Bedridden, BP high Exam/Review of Systems Vital Signs Vitals Vital Signs Date Time Temp Pulse Resp B/P Pulse Ox O2 Delivery O2 Flow Rate FiO2 12/29/16 08:00 89 12/29/16 07:50 98.2 20 166/69 94 12/27/16 20:18 Nasal Cannula 2.0 Intake and Output 12/28/16 12/28/16 12/29/16 15:00 23:00 07:00 Intake Total 100 ml 100 ml 100 ml Output Total 900 ml 900 ml Balance 100 ml -800 ml -800 ml Exam GENERAL: Obese well-developed, middle-aged man who is alert, in no distress. HEENT: Head atraumatic, normocephalic. Sclerae anicteric. Buccal mucosa dry. NECK: Supple, trachea midline. CHEST: bilateral basilar crackles, no wheezing HEART: S1, S2. ABDOMEN: Soft, bowel tones present. EXTREMITIES: Without cyanosis. Results Result Diagram: 12/29/16 0700 12/29/16 0700 Results 24 hrs Laboratory Tests Test 12/28/16 10:22 12/28/16 14:28 12/28/16 17:10 12/28/16 20:25 Bedside Glucose 80 81 86 83 Test 12/29/16 00:32 12/29/16 04:29 12/29/16 07:00 12/29/16 07:47 Bedside Glucose 94 85 88 White Blood Count 8.7 Red Blood Count 2.93 L Hemoglobin 8.8 L Hematocrit 27.3 L Mean Corpuscular Volume 93.2 Mean Corpuscular Hemoglobin 30.0 Mean Corpuscular Hemoglobin Concent 32.2 Red Cell Distribution Width 14.9 H Platelet Count 406 Mean Platelet Volume 9.6 Neutrophils % 78.5 H Lymphocytes % 10.9 L Monocytes % 6.2 Eosinophils % 2.4 Basophils % 0.8 Nucleated Red Blood Cells % 0.0 Neutrophils # 6.8 Lymphocytes # 1.0 Monocytes # 0.5 Eosinophils # 0.2 Basophils # 0.1 Nucleated Red Blood Cells # 0.0 Sodium Level 147 H Potassium Level 4.9 Chloride Level 112 H Carbon Dioxide Level 23 Anion Gap 17 H Blood Urea Nitrogen 48 H Creatinine 6.22 H Glucose Level 84 Calcium Level 10.4 H Phosphorus Level 5.9 H Magnesium Level 2.1 Medications Medications Current Medications Ondansetron HCl (Zofran Inj) 4 mg Q6H PRN IV NAUSEA AND/OR VOMITING Last administered on 12/24/16 12:08; Admin Dose 4 MG; Start 12/10/16 at 18:00 Magnesium Hydroxide (Milk Of Mag) 30 ml DAILY PRN PO CONSTIPATION Last administered on 12/29/16 08:56; Admin Dose 30 ML; Start 12/10/16 at 18:00 Bisacodyl (Dulcolax) 5 mg DAILY PRN PO CONSTIPATION; Start 12/10/16 at 18:00 Famotidine (Pepcid) 20 mg DAILY PO Last administered on 12/29/16 08:38; Admin Dose 20 MG; Start 12/11/16 at 09:00 Hydralazine HCl (Apresoline) 10 mg Q6H PRN IV SBP>160 Last administered on 12/28 20:28; Admin Dose 10 MG; Start 12/10/16 at 18:00 Atorvastatin Calcium (Lipitor) 10 mg DAILY@21 PO Last administered on 20:30; Admin Dose 10 MG; Start 12/10/16 at 21:00 Heparin Sodium (Porcine) (Heparin (5000 Units/0.5 ml)) 5,000 unit BID SC Last administered on 12/29/16 08:50; Admin Dose 5,000 UNIT; Start 12/11/16 at 21:00 Chlordiazepoxide 50 mg 50 mg BID PO Last administered on 12/29/16 08:37; Admin Dose 50 MG; Start 12/11/16 at 21:00 Amiodarone HCl 900 mg/Dextrose 500 ml @ 0 mls/hr Q0M IV Last administered on 13:49; Admin Dose 33.4 MLS/HR; Start 12/14/16 at 13:00 Diltiazem HCl (Cardizem-D5W 125 Mg/125 ml Drip) 125 ml @ 5 mls/hr TITRATE IV ; Start 12/16/16 at 22:45 Megestrol Acetate (Megace Susp) 400 mg BID PO Last administered on 12/29/16 08 :37; Admin Dose 400 MG; Start 12/17/16 at 13:00 Metoprolol Tartrate (Lopressor) 50 mg BID PO Last administered on 12/29/16 08: 38; Admin Dose 50 MG; Start 12/17/16 at 21:00 Polyethylene Glycol (Miralax) 17 gm BID PO Last administered on 12/29/16 08:38 ; Admin Dose 17 GM; Start 12/21/16 at 21:00 Insulin Aspart (Novolog Insulin Pen) NOVOLOG *MILD* ALGORI... Q4 SC ; Start at 21:00 Miscellaneous Information 1 ea NOTE XX ; Start 12/21/16 at 17:30 Glucose (Glutose) 15 gm Q15M PRN PO DECREASED GLUCOSE; Start 12/21/16 at 17:30 Glucose (Glutose) 22.5 gm Q15M PRN PO DECREASED GLUCOSE; Start 12/21/16 at 17: 30 Dextrose (D50w Syringe) 25 ml Q15M PRN IV DECREASED GLUCOSE; Start 12/21/16 at 17:30 Dextrose (D50w Syringe) 50 ml Q15M PRN IV DECREASED GLUCOSE; Start 12/21/16 at 17:30 Glucagon (Glucagen) 1 mg Q15M PRN IM DECREASED GLUCOSE; Start 12/21/16 at 17:30 Glucose (Glutose) 15 gm Q15M PRN BUCCAL DECREASED GLUCOSE; Start 12/21/16 at 17 :30 Oxycodone HCl (Roxicodone) 10 mg Q6H PRN PO PAIN LEVEL 7-10 Last administered on 12/29/16 08:56; Admin Dose 10 MG; Start 12/25/16 at 13:00 Amiodarone HCl (Cordarone) 200 mg BID PO Last administered on 12/29/16 08:38; Admin Dose 200 MG; Start 12/27/16 at 21:00 Amlodipine Besylate (Norvasc) 5 mg BID PO Last administered on 12/29/16 08:38 ; Admin Dose 5 MG; Start 12/27/16 at 21:00 MADELYN MIRANDA MD December 29, 2016 09:06
[2016-12-29] MEDS ORDERED: FUROSEMIDE 20 MG INJ IV ONE (09:30)
--- NOTE | 2016-12-29 10:31 | RADRPT ---
PROCEDURE: XR Chest. CLINICAL INDICATION: Dyspnea TECHNIQUE: Anterior chest x-ray. COMPARISON: 12/23/2016 FINDINGS: Right-sided dialysis catheter demonstrates stable position. Hazy opacity throughout the right hemithorax suggest moderate pleural effusion, unchanged. There has been interval resolution of hazy opacity in the left lung base. No focal consolidation identified. There is no evidence of pneumothorax. There is atherosclerotic calcification of the aorta. The cardiomediastinal silhouette is otherwise unremarkable. The soft tissues are normal. Osseous structures are unremarkable. IMPRESSION: 1. Moderate right pleural effusion, unchanged from previous exam. 2. Interval resolution of left pleural effusion. 3. Compressive atelectasis in the right lung base, unchanged. 4. Stable and satisfactory position of right-sided dialysis catheter. 5. Atherosclerotic calcification of the aorta. RPTAT: QQ .Don Mccloud MD, Date Time Electronically viewed and signed by .Don Mccloud MD, on 12/29/2016 10:30 .M/
--- NOTE | 2016-12-29 11:19 | PN ---
Date/Time of Note Date/Time of Note DATE: 12/29/16 TIME: 11:16 Assessment/Plan VTE Prophylaxis VTE Prophylaxis Intervention: heparin Lines/Catheters IV [facility] (from [facility] AKILAH CATH Urinary Cath still in place: Yes Reason Cath still needed: other (indicate) Assessment/Plan Assessment/Plan 1. S/p sepsis 2. S/p Proteus mirabilis urinary tract infection with bacteremia. 3. Acute kidney failure on HD 4. S/p HCAP, poss aspiration. 5. Hypertension. 6. Paroxysmal Atrial fibrillation. 7. History of alcohol abuse. 8. Status post fall 9. Chronic Gout. 10. Stag horn calculus likely from uric acid 11. Chronic compression fractures with spinal stenosis 2/2 DJD of spine 12. Dysphagia. Continue aspiration precautions. Diet as per speech therapy. 13. Metabolic encephalopathy. Brain CT scan negative for any acute findings. Plan: * Continue supportive care and PT * Case mgt to arrange for placement * Urology review for calculus * HD per renal * appreciate all consults Fluids, electrolytes, and nutrition. Low-cholesterol diet. DVT prophylaxis. Subcutaneous heparin. Gastrointestinal prophylaxis. Histamine 2 receptor blockers. Subjective 24 Hr Interval Summary Free Text/Dictation Patient seen and examined. no new issues patient extremely debilitated Spoke with ID, Patient is now off abx. Exam/Review of Systems Vital Signs Vitals Vital Signs Date Time Temp Pulse Resp B/P Pulse Ox O2 Delivery O2 Flow Rate FiO2 12/29/16 09:29 Nasal Cannula 2.0 12/29/16 08:00 89 12/29/16 07:50 98.2 20 166/69 94 Intake and Output 12/28/16 12/28/16 12/29/16 15:00 23:00 07:00 Intake Total 100 ml 100 ml 100 ml Output Total 900 ml 900 ml Balance 100 ml -800 ml -800 ml Exam GENERAL: This is a well-built, well-nourished male patient lying in bed in no apparent distress. HEENT: Head normocephalic and atraumatic. Eyes: Anicteric sclerae. Conjunctivae clear. ENT: Nasal septum is midline. Oral mucosa is dry. NECK: Supple. No JVD noticed. RESPIRATORY: Bilaterally clear to auscultation. No adventitious breath sounds. No use of accessory muscles of respiration, wet cough CARDIAC: Regular rate and rhythm. S1-S2 heard. ABDOMEN: Soft, nontender, nondistended. Bowel sounds positive in all 4 quadrants. GENITOURINARY: Deferred. EXTREMITIES: No cyanosis, no clubbing, no edema. Peripheral pulses are palpable. NEUROLOGIC: The patient is lethargic. Results Result Diagram: 12/29/16 0700 12/29/16 0700 Results 24 hrs Laboratory Tests Test 12/28/16 14:28 12/28/16 17:10 12/28/16 20:25 12/29/16 00:32 Bedside Glucose 81 86 83 94 Test 12/29/16 04:29 12/29/16 07:00 12/29/16 07:47 Bedside Glucose 85 88 White Blood Count 8.7 Red Blood Count 2.93 L Hemoglobin 8.8 L Hematocrit 27.3 L Mean Corpuscular Volume 93.2 Mean Corpuscular Hemoglobin 30.0 Mean Corpuscular Hemoglobin Concent 32.2 Red Cell Distribution Width 14.9 H Platelet Count 406 Mean Platelet Volume 9.6 Neutrophils % 78.5 H Lymphocytes % 10.9 L Monocytes % 6.2 Eosinophils % 2.4 Basophils % 0.8 Nucleated Red Blood Cells % 0.0 Neutrophils # 6.8 Lymphocytes # 1.0 Monocytes # 0.5 Eosinophils # 0.2 Basophils # 0.1 Nucleated Red Blood Cells # 0.0 Sodium Level 147 H Potassium Level 4.9 Chloride Level 112 H Carbon Dioxide Level 23 Anion Gap 17 H Blood Urea Nitrogen 48 H Creatinine 6.22 H Glucose Level 84 Calcium Level 10.4 H Phosphorus Level 5.9 H Magnesium Level 2.1 Medications Medications Current Medications Ondansetron HCl (Zofran Inj) 4 mg Q6H PRN IV NAUSEA AND/OR VOMITING Last administered on 12/24/16 12:08; Admin Dose 4 MG; Start 12/10/16 at 18:00 Magnesium Hydroxide (Milk Of Mag) 30 ml DAILY PRN PO CONSTIPATION Last administered on 12/29/16 08:56; Admin Dose 30 ML; Start 12/10/16 at 18:00 Bisacodyl (Dulcolax) 5 mg DAILY PRN PO CONSTIPATION; Start 12/10/16 at 18:00 Famotidine (Pepcid) 20 mg DAILY PO Last administered on 12/29/16 08:38; Admin Dose 20 MG; Start 12/11/16 at 09:00 Hydralazine HCl (Apresoline) 10 mg Q6H PRN IV SBP>160 Last administered on 12/28 20:28; Admin Dose 10 MG; Start 12/10/16 at 18:00 Atorvastatin Calcium (Lipitor) 10 mg DAILY@21 PO Last administered on 20:30; Admin Dose 10 MG; Start 12/10/16 at 21:00 Heparin Sodium (Porcine) (Heparin (5000 Units/0.5 ml)) 5,000 unit BID SC Last administered on 12/29/16 08:50; Admin Dose 5,000 UNIT; Start 12/11/16 at 21:00 Chlordiazepoxide 50 mg 50 mg BID PO Last administered on 12/29/16 08:37; Admin Dose 50 MG; Start 12/11/16 at 21:00 Amiodarone HCl 900 mg/Dextrose 500 ml @ 0 mls/hr Q0M IV Last administered on 13:49; Admin Dose 33.4 MLS/HR; Start 12/14/16 at 13:00 Diltiazem HCl (Cardizem-D5W 125 Mg/125 ml Drip) 125 ml @ 5 mls/hr TITRATE IV ; Start 12/16/16 at 22:45 Megestrol Acetate (Megace Susp) 400 mg BID PO Last administered on 12/29/16 08 :37; Admin Dose 400 MG; Start 12/17/16 at 13:00 Metoprolol Tartrate (Lopressor) 50 mg BID PO Last administered on 12/29/16 08: 38; Admin Dose 50 MG; Start 12/17/16 at 21:00 Polyethylene Glycol (Miralax) 17 gm BID PO Last administered on 12/29/16 08:38 ; Admin Dose 17 GM; Start 12/21/16 at 21:00 Insulin Aspart (Novolog Insulin Pen) NOVOLOG *MILD* ALGORI... Q4 SC ; Start at 21:00 Miscellaneous Information 1 ea NOTE XX ; Start 12/21/16 at 17:30 Glucose (Glutose) 15 gm Q15M PRN PO DECREASED GLUCOSE; Start 12/21/16 at 17:30 Glucose (Glutose) 22.5 gm Q15M PRN PO DECREASED GLUCOSE; Start 12/21/16 at 17: 30 Dextrose (D50w Syringe) 25 ml Q15M PRN IV DECREASED GLUCOSE; Start 12/21/16 at 17:30 Dextrose (D50w Syringe) 50 ml Q15M PRN IV DECREASED GLUCOSE; Start 12/21/16 at 17:30 Glucagon (Glucagen) 1 mg Q15M PRN IM DECREASED GLUCOSE; Start 12/21/16 at 17:30 Glucose (Glutose) 15 gm Q15M PRN BUCCAL DECREASED GLUCOSE; Start 12/21/16 at 17 :30 Oxycodone HCl (Roxicodone) 10 mg Q6H PRN PO PAIN LEVEL 7-10 Last administered on 12/29/16 08:56; Admin Dose 10 MG; Start 12/25/16 at 13:00 Amiodarone HCl (Cordarone) 200 mg BID PO Last administered on 12/29/16 08:38; Admin Dose 200 MG; Start 12/27/16 at 21:00 Amlodipine Besylate (Norvasc) 5 mg BID PO Last administered on 12/29/16 08:38 ; Admin Dose 5 MG; Start 12/27/16 at 21:00 Procedures Procedures PROCEDURE: XR Chest. CLINICAL INDICATION: Dyspnea TECHNIQUE: Anterior chest x-ray. COMPARISON: 12/23/2016 FINDINGS: Right-sided dialysis catheter demonstrates stable position. Hazy opacity throughout the right hemithorax suggest moderate pleural effusion, unchanged. There has been interval resolution of hazy opacity in the left lung base. No focal consolidation identified. There is no evidence of pneumothorax. There is atherosclerotic calcification of the aorta. The cardiomediastinal silhouette is otherwise unremarkable. The soft tissues are normal. Osseous structures are unremarkable. IMPRESSION: 1. Moderate right pleural effusion, unchanged from previous exam. 2. Interval resolution of left pleural effusion. 3. Compressive atelectasis in the right lung base, unchanged. 4. Stable and satisfactory position of right-sided dialysis catheter. 5. Atherosclerotic calcification of the aorta. RPTAT: QQ .Don Mccloud MD, MD Date Time Electronically viewed and signed by .Don Mccloud MD, on 12/29/2016 10: 30 .M/ CC: MADELYN MIRANDA MD S: OK WITH RN TO WORK WITH PATIENT TODAY. PATIENT REQUIRED MAX ENCOURAGEMENT. TO PARTAKE IN P.T. ACTS. O/A: PATIENT SEEN FOR FUNCTIONAL ACT. TRAINING, AND THEREX. PATIENT ABLE TO PERFORM H/S, AND A/P EXERCISE ACTS. X 10 REPS. X 1 SET. BEFORE ATTEMPTING TO SIT @ [facility]. HOWEVER PATIENT STATED, THAT HE WAS IN A LOT OF PAIN. PATIENT ATTEMPTED 3 TIMES TO NCU-[id number]-EDA, BUT PATIENT U/A TO DO TODAY. FOCUSED AND SETTLED ON LOG-ROLLING ACTS. AND SUPINE SCOOTING. PATIENT LIMITED FUNCTIONALLY SECONDARY TO INCREASE PAIN. RN AWARE OF PATIENT'S STATUS. AFTER P.T. TX. REPOSITIONED PATIENT BTB. FOR COMFORT AND OPTIMAL ALIGNMENT. PLEASE READ P.T. GRID FOR DETAILS/AND ASSIST LEVELS. P: WILL F/U NEXT TX. TIME AND CONT WITH P.T. PLAN. CLOVIS SHORE December 29, 2016 11:19
--- NOTE | 2016-12-29 12:10 | CONS ---
Date/Time of Note Date/Time of Note DATE: 12/29/16 TIME: 12:08 Assessment/Plan Assessment/Plan Additional Assessment/Plan Acute kidney injury Preserved ejection fraction Status post fall Sepsis with bacteremia Paroxysmal atrial fibrillation, currently sinus rhythm History of hypertension Recent UTI Alcohol abuse -Blood pressure trend improving but still elevated. Patient started on IV diuretics. Would not increase antihypertensive regimen at the current time given patient undergoing diuresis and possibly hemodialysis. Remains in sinus rhythm, continue amiodarone and continue to titrate down. Consultation Date/Type/Reason Admit Date/Time December 10, 2016 at 16:57 Type of Consultation: cv Referring Provider: JACK JENNINGS NP 24 HR Interval Summary Free Text/Dictation Denies chest pain, shortness of breath, palpitation Exam/Review of Systems Vital Signs Vitals Vital Signs Date Time Temp Pulse Resp B/P Pulse Ox O2 Delivery O2 Flow Rate FiO2 12/29/16 11:57 98.3 86 20 163/75 96 12/29/16 09:29 Nasal Cannula 2.0 Intake and Output 12/28/16 12/28/16 12/29/16 14:59 22:59 06:59 Intake Total 100 ml 100 ml 100 ml Output Total 900 ml 900 ml Balance 100 ml -800 ml -800 ml Exam Following commands, no apparent distress Constitutional: alert, oriented Head: normocephalic Neck: supple Respiratory: other (Coarse breath sounds bilaterally, decreased right base) Cardiovascular: other (S1-S2 heard), regular rate and rhythm Gastrointestinal: bowel sounds, non-tender, soft Extremities: edema (Trace) Results Result Diagram: 12/29/16 0700 12/29/16 0700 Results 24 hrs Laboratory Tests Test 12/28/16 14:28 12/28/16 17:10 12/28/16 20:25 12/29/16 00:32 Bedside Glucose 81 86 83 94 Test 12/29/16 04:29 12/29/16 07:00 12/29/16 07:47 Bedside Glucose 85 88 White Blood Count 8.7 Red Blood Count 2.93 L Hemoglobin 8.8 L Hematocrit 27.3 L Mean Corpuscular Volume 93.2 Mean Corpuscular Hemoglobin 30.0 Mean Corpuscular Hemoglobin Concent 32.2 Red Cell Distribution Width 14.9 H Platelet Count 406 Mean Platelet Volume 9.6 Neutrophils % 78.5 H Lymphocytes % 10.9 L Monocytes % 6.2 Eosinophils % 2.4 Basophils % 0.8 Nucleated Red Blood Cells % 0.0 Neutrophils # 6.8 Lymphocytes # 1.0 Monocytes # 0.5 Eosinophils # 0.2 Basophils # 0.1 Nucleated Red Blood Cells # 0.0 Sodium Level 147 H Potassium Level 4.9 Chloride Level 112 H Carbon Dioxide Level 23 Anion Gap 17 H Blood Urea Nitrogen 48 H Creatinine 6.22 H Glucose Level 84 Calcium Level 10.4 H Phosphorus Level 5.9 H Magnesium Level 2.1 Medications Medications Current Medications Ondansetron HCl (Zofran Inj) 4 mg Q6H PRN IV NAUSEA AND/OR VOMITING Last administered on 12/24/16 12:08; Admin Dose 4 MG; Start 12/10/16 at 18:00 Magnesium Hydroxide (Milk Of Mag) 30 ml DAILY PRN PO CONSTIPATION Last administered on 12/29/16 08:56; Admin Dose 30 ML; Start 12/10/16 at 18:00 Bisacodyl (Dulcolax) 5 mg DAILY PRN PO CONSTIPATION; Start 12/10/16 at 18:00 Famotidine (Pepcid) 20 mg DAILY PO Last administered on 12/29/16 08:38; Admin Dose 20 MG; Start 12/11/16 at 09:00 Hydralazine HCl (Apresoline) 10 mg Q6H PRN IV SBP>160 Last administered on 12/28 20:28; Admin Dose 10 MG; Start 12/10/16 at 18:00 Atorvastatin Calcium (Lipitor) 10 mg DAILY@21 PO Last administered on 20:30; Admin Dose 10 MG; Start 12/10/16 at 21:00 Heparin Sodium (Porcine) 5000 unit 5,000 unit BID SC Last administered on 08:50; Admin Dose 5,000 UNIT; Start 12/11/16 at 21:00 Amiodarone HCl 900 mg/Dextrose 500 ml @ 0 mls/hr Q0M IV Last administered on 13:49; Admin Dose 33.4 MLS/HR; Start 12/14/16 at 13:00 Diltiazem HCl (Cardizem-D5W 125 Mg/125 ml Drip) 125 ml @ 5 mls/hr TITRATE IV ; Start 12/16/16 at 22:45 Megestrol Acetate (Megace Susp) 400 mg BID PO Last administered on 12/29/16 08 :37; Admin Dose 400 MG; Start 12/17/16 at 13:00 Metoprolol Tartrate (Lopressor) 50 mg BID PO Last administered on 12/29/16 08: 38; Admin Dose 50 MG; Start 12/17/16 at 21:00 Polyethylene Glycol (Miralax) 17 gm BID PO Last administered on 12/29/16 08:38 ; Admin Dose 17 GM; Start 12/21/16 at 21:00 Insulin Aspart (Novolog Insulin Pen) NOVOLOG *MILD* ALGORI... Q4 SC ; Start at 21:00 Miscellaneous Information 1 ea NOTE XX ; Start 12/21/16 at 17:30 Glucose (Glutose) 15 gm Q15M PRN PO DECREASED GLUCOSE; Start 12/21/16 at 17:30 Glucose (Glutose) 22.5 gm Q15M PRN PO DECREASED GLUCOSE; Start 12/21/16 at 17: 30 Dextrose (D50w Syringe) 25 ml Q15M PRN IV DECREASED GLUCOSE; Start 12/21/16 at 17:30 Dextrose (D50w Syringe) 50 ml Q15M PRN IV DECREASED GLUCOSE; Start 12/21/16 at 17:30 Glucagon (Glucagen) 1 mg Q15M PRN IM DECREASED GLUCOSE; Start 12/21/16 at 17:30 Glucose (Glutose) 15 gm Q15M PRN BUCCAL DECREASED GLUCOSE; Start 12/21/16 at 17 :30 Oxycodone HCl (Roxicodone) 10 mg Q6H PRN PO PAIN LEVEL 7-10 Last administered on 12/29/16 08:56; Admin Dose 10 MG; Start 12/25/16 at 13:00 Amiodarone HCl (Cordarone) 200 mg BID PO Last administered on 12/29/16 08:38; Admin Dose 200 MG; Start 12/27/16 at 21:00 Amlodipine Besylate (Norvasc) 5 mg BID PO Last administered on 12/29/16 08:38 ; Admin Dose 5 MG; Start 12/27/16 at 21:00 Chlordiazepoxide (Librium) 25 mg DAILY PO ; Start 12/30/16 at 09:00; Stop at 08:59 Zeyad Kelly DO December 29, 2016 12:10
--- NOTE | 2016-12-29 13:23 | CONS ---
Date/Time of Note Date/Time of Note DATE: 12/29/16 TIME: 13:21 Assessment/Plan Assessment/Plan Chief Complaint/Hosp Course SUBJECTIVE: No acute events, awake, no fevers, nad PHYSICAL EXAMINATION: GENERAL: Obese well-developed, middle-aged man who is awake, in no distress. HEENT: Head atraumatic, normocephalic. Sclerae anicteric. Buccal mucosa dry. NECK: Supple, trachea midline. CHEST: Rise symmetrical. Breath sounds clear. HEART: S1, S2. ABDOMEN: Soft, bowel tones present. EXTREMITIES: Without cyanosis. ASSESSMENT: 1. S/p sepsis 2. S/p Proteus mirabilis urinary tract infection with bacteremia. 3. Acute kidney failure, possible chronic kidney disease. 4. S/p HCAP, poss aspiration. 5. Hypertension. 6. Atrial fibrillation. 7. History of alcohol abuse. 8. DJD of thoracic spine PLAN: Remains stable, off abx, pending dc planning to rehab facility [facility] staff Problems: Consultation Date/Type/Reason Admit Date/Time December 10, 2016 at 16:57 Type of Consultation: id Referring Provider: JACK JENNINGS NANOFABRICATION SPECIALIST Exam/Review of Systems Vital Signs Vitals Vital Signs Date Time Temp Pulse Resp B/P Pulse Ox O2 Delivery O2 Flow Rate FiO2 12/29/16 12:00 86 12/29/16 11:57 98.3 20 163/75 96 12/29/16 09:29 Nasal Cannula 2.0 Intake and Output 12/28/16 12/28/16 12/29/16 15:00 23:00 07:00 Intake Total 100 ml 100 ml 100 ml Output Total 900 ml 900 ml Balance 100 ml -800 ml -800 ml Results Result Diagram: 12/29/16 0700 12/29/16 0700 Results 24 hrs Laboratory Tests Test 12/28/16 14:28 12/28/16 17:10 12/28/16 20:25 12/29/16 00:32 Bedside Glucose 81 86 83 94 Test 12/29/16 04:29 12/29/16 07:00 12/29/16 07:47 12/29/16 12:19 Bedside Glucose 85 88 78 White Blood Count 8.7 Red Blood Count 2.93 L Hemoglobin 8.8 L Hematocrit 27.3 L Mean Corpuscular Volume 93.2 Mean Corpuscular Hemoglobin 30.0 Mean Corpuscular Hemoglobin Concent 32.2 Red Cell Distribution Width 14.9 H Platelet Count 406 Mean Platelet Volume 9.6 Neutrophils % 78.5 H Lymphocytes % 10.9 L Monocytes % 6.2 Eosinophils % 2.4 Basophils % 0.8 Nucleated Red Blood Cells % 0.0 Neutrophils # 6.8 Lymphocytes # 1.0 Monocytes # 0.5 Eosinophils # 0.2 Basophils # 0.1 Nucleated Red Blood Cells # 0.0 Sodium Level 147 H Potassium Level 4.9 Chloride Level 112 H Carbon Dioxide Level 23 Anion Gap 17 H Blood Urea Nitrogen 48 H Creatinine 6.22 H Glucose Level 84 Calcium Level 10.4 H Phosphorus Level 5.9 H Magnesium Level 2.1 Medications Medications Current Medications Ondansetron HCl (Zofran Inj) 4 mg Q6H PRN IV NAUSEA AND/OR VOMITING Last administered on 12/24/16 12:08; Admin Dose 4 MG; Start 12/10/16 at 18:00 Magnesium Hydroxide (Milk Of Mag) 30 ml DAILY PRN PO CONSTIPATION Last administered on 12/29/16 08:56; Admin Dose 30 ML; Start 12/10/16 at 18:00 Bisacodyl (Dulcolax) 5 mg DAILY PRN PO CONSTIPATION; Start 12/10/16 at 18:00 Famotidine (Pepcid) 20 mg DAILY PO Last administered on 12/29/16 08:38; Admin Dose 20 MG; Start 12/11/16 at 09:00 Hydralazine HCl (Apresoline) 10 mg Q6H PRN IV SBP>160 Last administered on 12/28 20:28; Admin Dose 10 MG; Start 12/10/16 at 18:00 Atorvastatin Calcium (Lipitor) 10 mg DAILY@21 PO Last administered on 20:30; Admin Dose 10 MG; Start 12/10/16 at 21:00 Heparin Sodium (Porcine) 5000 unit 5,000 unit BID SC Last administered on 08:50; Admin Dose 5,000 UNIT; Start 12/11/16 at 21:00 Amiodarone HCl 900 mg/Dextrose 500 ml @ 0 mls/hr Q0M IV Last administered on 13:49; Admin Dose 33.4 MLS/HR; Start 12/14/16 at 13:00 Diltiazem HCl (Cardizem-D5W 125 Mg/125 ml Drip) 125 ml @ 5 mls/hr TITRATE IV ; Start 12/16/16 at 22:45 Megestrol Acetate (Megace Susp) 400 mg BID PO Last administered on 12/29/16 08 :37; Admin Dose 400 MG; Start 12/17/16 at 13:00 Metoprolol Tartrate (Lopressor) 50 mg BID PO Last administered on 12/29/16 08: 38; Admin Dose 50 MG; Start 12/17/16 at 21:00 Polyethylene Glycol (Miralax) 17 gm BID PO Last administered on 12/29/16 08:38 ; Admin Dose 17 GM; Start 12/21/16 at 21:00 Insulin Aspart (Novolog Insulin Pen) NOVOLOG *MILD* ALGORI... Q4 SC ; Start at 21:00 Miscellaneous Information 1 ea NOTE XX ; Start 12/21/16 at 17:30 Glucose (Glutose) 15 gm Q15M PRN PO DECREASED GLUCOSE; Start 12/21/16 at 17:30 Glucose (Glutose) 22.5 gm Q15M PRN PO DECREASED GLUCOSE; Start 12/21/16 at 17: 30 Dextrose (D50w Syringe) 25 ml Q15M PRN IV DECREASED GLUCOSE; Start 12/21/16 at 17:30 Dextrose (D50w Syringe) 50 ml Q15M PRN IV DECREASED GLUCOSE; Start 12/21/16 at 17:30 Glucagon (Glucagen) 1 mg Q15M PRN IM DECREASED GLUCOSE; Start 12/21/16 at 17:30 Glucose (Glutose) 15 gm Q15M PRN BUCCAL DECREASED GLUCOSE; Start 12/21/16 at 17 :30 Oxycodone HCl (Roxicodone) 10 mg Q6H PRN PO PAIN LEVEL 7-10 Last administered on 12/29/16 08:56; Admin Dose 10 MG; Start 12/25/16 at 13:00 Amiodarone HCl (Cordarone) 200 mg BID PO Last administered on 12/29/16 08:38; Admin Dose 200 MG; Start 12/27/16 at 21:00 Amlodipine Besylate (Norvasc) 5 mg BID PO Last administered on 12/29/16 08:38 ; Admin Dose 5 MG; Start 12/27/16 at 21:00 Chlordiazepoxide (Librium) 25 mg DAILY PO ; Start 12/30/16 at 09:00; Stop at 08:59 CHERRIE JAUREGUI NP December 29, 2016 13:23
--- NOTE | 2016-12-29 15:54 | PN ---
Date/Time of Note Date/Time of Note DATE: 12/29/16 TIME: 15:51 Assessment/Plan VTE Prophylaxis VTE Prophylaxis Intervention: SCD's Lines/Catheters IV Catheter Type (from Nrs): AKILAH CATH Urinary Cath still in place: Yes Reason Cath still needed: urinary retention Assessment/Plan Chief Complaint/Hosp Course Problems: Assessment/Plan * Dysphagia * Failure to thrive * Acute kidney injury * hypertension * Gout * Atrial fibrillation Plan * continue present management * swallow evaluation * still for barium swallow with speech evaluation Subjective 24 Hr Interval Summary Free Text/Dictation * Course reviewed with RN * Patient seen and examined * Still for barium swallow evaluation * able to tolerate pureed diet Exam/Review of Systems Vital Signs Vitals Vital Signs Date Time Temp Pulse Resp B/P Pulse Ox O2 Delivery O2 Flow Rate FiO2 12/29/16 15:34 98.3 88 20 130/74 95 12/29/16 09:29 Nasal Cannula 2.0 Intake and Output 12/28/16 12/28/16 12/29/16 15:00 23:00 07:00 Intake Total 100 ml 100 ml 100 ml Output Total 900 ml 900 ml Balance 100 ml -800 ml -800 ml Exam Constitutional: alert, frail Neck: non-tender, supple Respiratory: clear to auscultation, normal air movement Cardiovascular: nl pulses, regular rate and rhythm Gastrointestinal: non-tender, soft Musculoskeletal: nl extremities to inspection, nl gait and stance Extremities: normal pulses Neurological: nl speech Skin: nl turgor, No rash or lesions Results Result Diagram: 12/29/16 0700 12/29/16 0700 Results 24 hrs Laboratory Tests Test 12/28/16 17:10 12/28/16 20:25 12/29/16 00:32 12/29/16 04:29 Bedside Glucose 86 83 94 85 Test 12/29/16 07:00 12/29/16 07:47 12/29/16 12:19 White Blood Count 8.7 Red Blood Count 2.93 L Hemoglobin 8.8 L Hematocrit 27.3 L Mean Corpuscular Volume 93.2 Mean Corpuscular Hemoglobin 30.0 Mean Corpuscular Hemoglobin Concent 32.2 Red Cell Distribution Width 14.9 H Platelet Count 406 Mean Platelet Volume 9.6 Neutrophils % 78.5 H Lymphocytes % 10.9 L Monocytes % 6.2 Eosinophils % 2.4 Basophils % 0.8 Nucleated Red Blood Cells % 0.0 Neutrophils # 6.8 Lymphocytes # 1.0 Monocytes # 0.5 Eosinophils # 0.2 Basophils # 0.1 Nucleated Red Blood Cells # 0.0 Sodium Level 147 H Potassium Level 4.9 Chloride Level 112 H Carbon Dioxide Level 23 Anion Gap 17 H Blood Urea Nitrogen 48 H Creatinine 6.22 H Glucose Level 84 Calcium Level 10.4 H Phosphorus Level 5.9 H Magnesium Level 2.1 Bedside Glucose 88 78 Medications Medications Current Medications Ondansetron HCl (Zofran Inj) 4 mg Q6H PRN IV NAUSEA AND/OR VOMITING Last administered on 12/24/16 12:08; Admin Dose 4 MG; Start 12/10/16 at 18:00 Magnesium Hydroxide (Milk Of Mag) 30 ml DAILY PRN PO CONSTIPATION Last administered on 12/29/16 08:56; Admin Dose 30 ML; Start 12/10/16 at 18:00 Bisacodyl (Dulcolax) 5 mg DAILY PRN PO CONSTIPATION; Start 12/10/16 at 18:00 Famotidine (Pepcid) 20 mg DAILY PO Last administered on 12/29/16 08:38; Admin Dose 20 MG; Start 12/11/16 at 09:00 Hydralazine HCl (Apresoline) 10 mg Q6H PRN IV SBP>160 Last administered on 12/28 20:28; Admin Dose 10 MG; Start 12/10/16 at 18:00 Atorvastatin Calcium (Lipitor) 10 mg DAILY@21 PO Last administered on 20:30; Admin Dose 10 MG; Start 12/10/16 at 21:00 Heparin Sodium (Porcine) 5000 unit 5,000 unit BID SC Last administered on 08:50; Admin Dose 5,000 UNIT; Start 12/11/16 at 21:00 Amiodarone HCl 900 mg/Dextrose 500 ml @ 0 mls/hr Q0M IV Last administered on 13:49; Admin Dose 33.4 MLS/HR; Start 12/14/16 at 13:00 Diltiazem HCl (Cardizem-D5W 125 Mg/125 ml Drip) 125 ml @ 5 mls/hr TITRATE IV ; Start 12/16/16 at 22:45 Megestrol Acetate (Megace Susp) 400 mg BID PO Last administered on 12/29/16 08 :37; Admin Dose 400 MG; Start 12/17/16 at 13:00 Metoprolol Tartrate (Lopressor) 50 mg BID PO Last administered on 12/29/16 08: 38; Admin Dose 50 MG; Start 12/17/16 at 21:00 Polyethylene Glycol (Miralax) 17 gm BID PO Last administered on 12/29/16 08:38 ; Admin Dose 17 GM; Start 12/21/16 at 21:00 Insulin Aspart (Novolog Insulin Pen) NOVOLOG *MILD* ALGORI... Q4 SC ; Start at 21:00 Miscellaneous Information 1 ea NOTE XX ; Start 12/21/16 at 17:30 Glucose (Glutose) 15 gm Q15M PRN PO DECREASED GLUCOSE; Start 12/21/16 at 17:30 Glucose (Glutose) 22.5 gm Q15M PRN PO DECREASED GLUCOSE; Start 12/21/16 at 17: 30 Dextrose (D50w Syringe) 25 ml Q15M PRN IV DECREASED GLUCOSE; Start 12/21/16 at 17:30 Dextrose (D50w Syringe) 50 ml Q15M PRN IV DECREASED GLUCOSE; Start 12/21/16 at 17:30 Glucagon (Glucagen) 1 mg Q15M PRN IM DECREASED GLUCOSE; Start 12/21/16 at 17:30 Glucose (Glutose) 15 gm Q15M PRN BUCCAL DECREASED GLUCOSE; Start 12/21/16 at 17 :30 Oxycodone HCl (Roxicodone) 10 mg Q6H PRN PO PAIN LEVEL 7-10 Last administered on 12/29/16 08:56; Admin Dose 10 MG; Start 12/25/16 at 13:00 Amiodarone HCl (Cordarone) 200 mg BID PO Last administered on 12/29/16 08:38; Admin Dose 200 MG; Start 12/27/16 at 21:00 Amlodipine Besylate (Norvasc) 5 mg BID PO Last administered on 12/29/16 08:38 ; Admin Dose 5 MG; Start 12/27/16 at 21:00 Chlordiazepoxide (Librium) 25 mg DAILY PO ; Start 12/30/16 at 09:00; Stop at 08:59 TYLER ARZATE MD December 29, 2016 15:53
[2016-12-29] MEDS ORDERED: HEPARIN 1000 UNITS/ML 10 ML INJ CATHETER ONE (19:00)
[2016-12-29] MEDS ORDERED: ALTEPLASE (CATHFLO) 2 MG INJ CATHETER ONE ×2 (19:30)
[2016-12-29] MEDS: ATORVASTATIN 10 MG TAB PO SCH (21:16)
--- NOTE | 2016-12-29 23:50 | CONS ---
DATE OF ADMISSION: 12/10/2016 DATE OF CONSULTATION: 12/29/2016 REQUESTING PHYSICIAN: Dr. Shore. Dear Dr. Shore: Thank you for asking me to see this patient in urological consultation. HISTORY OF PRESENT ILLNESS: This is a 71-year-old male with multiple medical problems and, as he ramos d a CT scan of the lumbar spine, he was noted to have a staghorn type calculus in the lower pole of the kidney. Therefore, a urological consultation was requested. The patient did also have abdomina l and renal ultrasound before, which also did show kidney stones. The patient does have a history o f gout and he has had a history also of prostate cancer, underwent a radical prostatectomy, and he h as been incontinent and using pads and diapers at times. PAST MEDICAL HISTORY: The other significant past medical history includes a history of hypertension , hyperlipidemia, gout, atrial fibrillation. The patient recently diagnosed with acute renal failur e and he has been on dialysis. He seems to have been drinking alcohol daily. Also his urine screen drug screen was positive for cannabinoids. The patient also did have a urinary tract infection and is treated for that. PAST SURGICAL HISTORY: Includes a history of total right hip replacement, prostatectomy, kyphoplast y, left knee arthroscopic surgery, appendectomy, and tonsillectomy. ALLERGIES: 1. PENICILLIN. 2. ADHESIVES. 3. LATEX. SOCIAL HISTORY: Lives at home. He does drink every day, about 10 beers a day. No smoking. Only s mokes marijuana. MEDICATIONS: He is on presently include: 1. Librium. 2. Amiodarone. 3. Amlodipine. 4. Oxycodone. 5. MiraLax. 6. NovoLog insulin. 7. Lopressor. 8. Megace. 9. Diltiazem. 10. Heparin subq. 11. Pepcid. 12. Lipitor. 13. Zofran p.r.n. 14. Milk of magnesia p.r.n. 15. Dulcolax p.r.n. 16. Hydralazine p.r.n. PHYSICAL EXAMINATION: GENERAL: Reveals an elderly male. He weighs about 88.7 kg. His height is 67 inches. VITAL SIGNS: Temperature is 98.3, pulse is 84, respirations 20, blood pressure 130/74. ABDOMEN: Obese. He does have scar on the abdomen from prior surgeries. GENITOURINARY: He does have an indwelling Mccormack catheter that is not draining much. In fact, it di d not appear to me it is inside the bladder. On the rectal examination, I could feel the balloon of the catheter. Therefore, I when I had changed my gloves and put new gloves on, put lubricant aroun d the tip of the penis, deflated the balloon of the catheter and pushed it into his bladder. Once I pushed it into the bladder, some urine came out. It was clear urine, but not much. Then, the ball oon was reinflated. The rectal exam did not show any mass in the area where the prostate was. As I mentioned, later I was able to feel the balloon of the catheter. EXTREMITIES: Revealed no edema. He does have a scar on the right thigh area from his total right h ip replacement. LABORATORY DATA: His CBC shows a white count of 8.7, hemoglobin 8.8, hematocrit 27.3. The BUN is 4 8, creatinine 6.22, sodium 147, potassium 4.9, chloride 112, CO2 of 23. PT is 14.4, INR 1.12. Urin alysis showed 2+ occult blood, 2+ total protein. The lumbar spine CT was reported as there are stag horn type renal calculi within the lower pole calyces of both kidneys, moderate dilatation of the ri ght ureter is identified, but incompletely evaluated, small amount of free fluid is seen in the pelv is. Further evaluation with CT renal stone survey may be useful. IMPRESSION: Bilateral renal stones. These probably could be uric acid stones, may be also ureteral stone. PLAN: To do a KUB and to do a CT scan of the abdomen and pelvis without contrast to visualize the s tones better and see if there is any need for any surgical intervention. The patient also does have a history of prostate cancer and we shall check his PSA if it has not been checked. Dictated By: LAUREN PERES MD BB/RIKA Conf#: [id number] DID#: [id number] CC: CLOVIS SHORE MD;*EndCC*
[2016-12-30] VITALS (21 sets, daily range): BP systolic 105–180; BP diastolic 50–79; PULSE 76–94; RESP 16–19
[2016-12-30] MEDS: INSULIN ASPART [NOVOLOG] 3 ML PEN SC SCH ×6 (01:00→21:00)
[2016-12-30] MEDS: MEGESTROL (40 MG/ML) 10ML CUP PO SCH ×2 (08:32→21:17)
[2016-12-30] MEDS: POLYETHYLENE GLYCOL 17 GM PACKET PO SCH ×2 (08:33→21:19)
[2016-12-30] MEDS: AMLODIPINE 5 MG TAB PO SCH ×2 (08:33→21:19)
[2016-12-30] MEDS: AMIODARONE 200 MG TAB PO SCH ×2 (08:33→21:20)
[2016-12-30] MEDS: METOPROLOL 50 MG TAB PO SCH ×2 (08:33→21:20)
[2016-12-30] MEDS: FAMOTIDINE 20 MG TAB PO SCH (08:34)
[2016-12-30] MEDS: HEPARIN 5,000 UNIT/0.5 ML VIAL SC SCH ×2 (08:34→21:23)
[2016-12-30] MEDS: CHLORDIAZEPOXIDE 25 MG CAP PO SCH (08:34)
--- NOTE | 2016-12-30 08:34 | RADRPT ---
PROCEDURE: XR Abdomen CLINICAL INDICATION: Kidney stones TECHNIQUE: An AP supine radiograph of the abdomen was submitted. COMPARISON: None FINDINGS: A catheter projects to the pelvis which is likely a Mccormack. There is smashed seen within the mid abd omen. Surgical ruel are seen within the left and right inferior pelvis. The bowel gas pattern is nonspecific. No organomegaly or discrete mass is identified. A 1.1 cm small staghorn calculus projects to the inferior pole left kidney. Vascular calcification is noted. There is a compression fracture deformity with evidence of previous vertebral plasty at L1. The oss eous elements are otherwise rarefied with moderate the severe diffuse degenerative endplate changes noted. There is a total right hip replacement. IMPRESSION: 1. A 1.1 cm small staghorn calculus projects to the inferior pole left kidney. 2. Mesh projects to the mid abdomen. 3. Previous pelvic surgery and total right hip replacement. 4. Compression fracture deformity with previous vertebral plasty at L1 with diffuse moderately jessika re degenerative endplate changes. 5. A Mccormack catheter is in place. Physician Alcides Date Time Electronically viewed and signed by Physician Alcides on 12/30/2016 08:34 /
--- NOTE | 2016-12-30 09:35 | CONS ---
Date/Time of Note Date/Time of Note DATE: 12/30/16 TIME: 09:33 Assessment/Plan Assessment/Plan Additional Assessment/Plan 1. Acute kidney injury, multifactorial, not improving despite being on IVF hydration, BUN/Cr persistently high ,.started on HD during this admission 2. Hyponatremia - improved 3. Status post fall, which was a mechanical fall, but likely due to the hyponatremia. CT brain is negative. 4. Possible history of chronic kidney disease secondary to hypertensive nephrosclerosis. 5. History of hypertension. 6. History of gout. 7. History of hyperlipidemia. 8. Atrial fibrillation, rate controlled. 9. History of alcohol abuse. 10. Thrombocytopenia secondary to alcohol abuse. 11. sepsis due to UTI and bacteremia with Blood cx and urine Cx growing proteus PLAN: S/p Incomplete HD yesterday due to catheter problems, Plan for HD today d/c Right IJ HD catheter Blood cx and Urine cx grew proteus - on IV abx - Follow up blood cx on 12/16/16 negative to date out of bed to chair avoid sedative, hypnotics will continue to follow up Consultation Date/Type/Reason Admit Date/Time December 10, 2016 at 16:57 Type of Consultation: NEPHROLOGY Referring Provider: JACK JENNINGS NP 24 HR Interval Summary Free Text/Dictation s/p tPA in HD catheter yesterday, had a HD today, doign better, on RA , Plan for US guided thoracentesis Exam/Review of Systems Vital Signs Vitals Vital Signs Date Time Temp Pulse Resp B/P Pulse Ox O2 Delivery O2 Flow Rate FiO2 12/30/16 08:04 85 12/30/16 08:00 16 12/30/16 07:41 98.0 119/56 94 12/29/16 20:00 Nasal Cannula 2.0 Intake and Output 12/29/16 12/29/16 12/30/16 15:00 23:00 07:00 Intake Total 420 ml 150 ml Output Total 1500 ml 1650 ml Balance -1080 ml -1500 ml Exam GENERAL: Obese well-developed, middle-aged man who is alert, in no distress. HEENT: Head atraumatic, normocephalic. Sclerae anicteric. Buccal mucosa dry. NECK: Supple, trachea midline. CHEST: bilateral basilar crackles, no wheezing HEART: S1, S2. ABDOMEN: Soft, bowel tones present. EXTREMITIES: Without cyanosis. Results Result Diagram: 12/29/16 0700 12/29/16 0700 Results 24 hrs Laboratory Tests Test 12/29/16 12:19 12/29/16 17:06 12/29/16 21:11 12/30/16 01:39 Bedside Glucose 78 80 108 82 Test 12/30/16 05:39 12/30/16 07:44 Bedside Glucose 90 113 Medications Medications Current Medications Ondansetron HCl (Zofran Inj) 4 mg Q6H PRN IV NAUSEA AND/OR VOMITING Last administered on 12/24/16 12:08; Admin Dose 4 MG; Start 12/10/16 at 18:00 Magnesium Hydroxide (Milk Of Mag) 30 ml DAILY PRN PO CONSTIPATION Last administered on 12/29/16 08:56; Admin Dose 30 ML; Start 12/10/16 at 18:00 Bisacodyl (Dulcolax) 5 mg DAILY PRN PO CONSTIPATION; Start 12/10/16 at 18:00 Famotidine (Pepcid) 20 mg DAILY PO Last administered on 12/30/16 08:34; Admin Dose 20 MG; Start 12/11/16 at 09:00 Hydralazine HCl (Apresoline) 10 mg Q6H PRN IV SBP>160 Last administered on 12/28 20:28; Admin Dose 10 MG; Start 12/10/16 at 18:00 Atorvastatin Calcium (Lipitor) 10 mg DAILY@21 PO Last administered on 21:16; Admin Dose 10 MG; Start 12/10/16 at 21:00 Heparin Sodium (Porcine) 5000 unit 5,000 unit BID SC Last administered on 21:22; Admin Dose 5,000 UNIT; Start 12/11/16 at 21:00 Amiodarone HCl 900 mg/Dextrose 500 ml @ 0 mls/hr Q0M IV Last administered on 13:49; Admin Dose 33.4 MLS/HR; Start 12/14/16 at 13:00 Diltiazem HCl (Cardizem-D5W 125 Mg/125 ml Drip) 125 ml @ 5 mls/hr TITRATE IV ; Start 12/16/16 at 22:45 Megestrol Acetate (Megace Susp) 400 mg BID PO Last administered on 12/30/16 08 :32; Admin Dose 400 MG; Start 12/17/16 at 13:00 Metoprolol Tartrate (Lopressor) 50 mg BID PO Last administered on 12/30/16 08: 33; Admin Dose 50 MG; Start 12/17/16 at 21:00 Polyethylene Glycol (Miralax) 17 gm BID PO Last administered on 12/30/16 08:33 ; Admin Dose 17 GM; Start 12/21/16 at 21:00 Insulin Aspart (Novolog Insulin Pen) NOVOLOG *MILD* ALGORI... Q4 SC ; Start at 21:00 Miscellaneous Information 1 ea NOTE XX ; Start 12/21/16 at 17:30 Glucose (Glutose) 15 gm Q15M PRN PO DECREASED GLUCOSE; Start 12/21/16 at 17:30 Glucose (Glutose) 22.5 gm Q15M PRN PO DECREASED GLUCOSE; Start 12/21/16 at 17: 30 Dextrose (D50w Syringe) 25 ml Q15M PRN IV DECREASED GLUCOSE; Start 12/21/16 at 17:30 Dextrose (D50w Syringe) 50 ml Q15M PRN IV DECREASED GLUCOSE; Start 12/21/16 at 17:30 Glucagon (Glucagen) 1 mg Q15M PRN IM DECREASED GLUCOSE; Start 12/21/16 at 17:30 Glucose (Glutose) 15 gm Q15M PRN BUCCAL DECREASED GLUCOSE; Start 12/21/16 at 17 :30 Oxycodone HCl (Roxicodone) 10 mg Q6H PRN PO PAIN LEVEL 7-10 Last administered on 12/29/16 17:20; Admin Dose 10 MG; Start 12/25/16 at 13:00 Amiodarone HCl (Cordarone) 200 mg BID PO Last administered on 12/30/16 08:33; Admin Dose 200 MG; Start 12/27/16 at 21:00 Amlodipine Besylate (Norvasc) 5 mg BID PO Last administered on 12/30/16 08:33 ; Admin Dose 5 MG; Start 12/27/16 at 21:00 Chlordiazepoxide (Librium) 25 mg DAILY PO Last administered on 12/30/16 08:34 ; Admin Dose 25 MG; Start 12/30/16 at 09:00; Stop 01/01/17 at 08:59 MADELYN MIRANDA MD December 30, 2016 09:35
--- NOTE | 2016-12-30 10:45 | CONS ---
DATE OF ADMISSION: 12/10/2016 DATE OF CONSULTATION: 12/24/2016 TYPE OF CONSULTATION: Pain Management This is a postdated note. The first time I had seen this patient was on 12/24/2016. Essentially, t his gentleman at that time I had changed his pain control medications. HISTORY OF PRESENT ILLNESS: This is a 71-year-old gentleman who essentially is a very ill gentleman who came in with acute injury status post fall, generalized malaise, weakness, history of excess al cohol use, lymphocytosis, thrombocytopenia. He was admitted for workup and treated for sepsis syndr ome for urinary tract Proteus mirabilis. Unfortunately, required hemodialysis while he is here and was treated also for possible aspiration pneumonia hospital-acquired. The patient when I spoke to h im complains of spinal compression injury, a longstanding history of osteoporosis and osteoarthritis . He is unclear as to whether or not he has had procedures in the past, but he has been treated onl y with short-acting anti-inflammatory medications and short-acting opioids. He describes his pain a s severe when he pushes himself to do any kind of mechanical activities, saying his pain level was a pproximately 6/10 and worse 6/10 also. He is receiving relief with his current opioid dosing. It d oes not interfere with his physical function, social relationship, his mood or his sleep patterns. Denies nausea, vomiting, constipation, pruritus, mental cloudiness, drowsiness. PHYSICAL EXAMINATION: GENERAL: Shows a well-nourished gentleman who looks somewhat ashen-appearing on examination, but in no acute distress. VITAL SIGNS: Blood pressure 118/56, pulse of 77 and regular, respirations of 18, temperature 98.0 d egrees, 94% saturation on 2 liters nasal cannula. CHEST: Shows bilateral distant breath sounds throughout both lung cho. COR: S1, S2, without S3, S4, murmur, gallop, rub. Normal rate, normal rhythm on examination. ABDOMEN: Grossly benign. NEUROLOGIC: He is oriented x3. Cranial nerves II through XII are grossly intact. Motor and sensor y findings are grossly within normal limits. LABORATORY DATA: Hemoglobin 8.8, hematocrit 27.3, white blood cell count 8.7, platelet count of 406 ,000. Chemistries: Serum sodium 147, potassium 4.9, chloride 112, BUN 48, creatinine 6.2, blood ng gar of 84. ASSESSMENT AND PLAN: Limited options with impaired renal function. At this time for pain, he has c urrently been prescribed oxycodone immediate release, that is safe for underlying renal disease. Med ications that are unsafe: Hydrocodone, morphine and intermediate insofar as oxycodone being safe. Dilaudid is also safe with fentanyl and methadone. I do not suggest we give him any long-acting dr henriquez, but just keep him on low-dose oxycodone as he is presently receiving and as I prescribed prior. I will continue to follow him. Dictated By: BUCKY RYAN MD, LP/RIKA Conf#: [id number] DID#: [id number]
--- NOTE | 2016-12-30 11:15 | CONS ---
Date/Time of Note Date/Time of Note DATE: 12/30/16 TIME: 11:14 Assessment/Plan Assessment/Plan Additional Assessment/Plan Acute kidney injury Preserved ejection fraction Status post fall Sepsis with bacteremia Paroxysmal atrial fibrillation, currently sinus rhythm History of hypertension Recent UTI Alcohol abuse -Blood pressure trend improving. Remains sinus rhythm on telemetry. We decrease amiodarone to daily. Fluid management as per our nephrology colleagues. Consultation Date/Type/Reason Admit Date/Time December 10, 2016 at 16:57 Type of Consultation: cv Referring Provider: JACK JENNINGS REFRIGERATION REPAIR SUPERVISOR 24 HR Interval Summary Free Text/Dictation Denies chest pain, shortness of breath Exam/Review of Systems Vital Signs Vitals Vital Signs Date Time Temp Pulse Resp B/P Pulse Ox O2 Delivery O2 Flow Rate FiO2 12/30/16 10:54 Nasal Cannula 2.0 12/30/16 08:04 85 12/30/16 08:00 16 12/30/16 07:41 98.0 119/56 94 Intake and Output 12/29/16 12/29/16 12/30/16 14:59 22:59 06:59 Intake Total 420 ml 150 ml Output Total 1500 ml 1650 ml Balance -1080 ml -1500 ml Exam Sleeping but arousable, no apparent distress, follows commands Head: normocephalic Neck: supple Respiratory: other (Coarse breath sounds bilaterally, no wheezing) Cardiovascular: other (S1-S2 heard), regular rate and rhythm Gastrointestinal: bowel sounds, non-tender, soft Extremities: edema Results Result Diagram: 12/29/16 0700 12/29/16 0700 Results 24 hrs Laboratory Tests Test 12/29/16 12:19 12/29/16 17:06 12/29/16 21:11 12/30/16 01:39 Bedside Glucose 78 80 108 82 Test 12/30/16 05:39 12/30/16 07:44 Bedside Glucose 90 113 Medications Medications Current Medications Ondansetron HCl (Zofran Inj) 4 mg Q6H PRN IV NAUSEA AND/OR VOMITING Last administered on 12/24/16 12:08; Admin Dose 4 MG; Start 12/10/16 at 18:00 Magnesium Hydroxide (Milk Of Mag) 30 ml DAILY PRN PO CONSTIPATION Last administered on 12/29/16 08:56; Admin Dose 30 ML; Start 12/10/16 at 18:00 Bisacodyl (Dulcolax) 5 mg DAILY PRN PO CONSTIPATION; Start 12/10/16 at 18:00 Famotidine (Pepcid) 20 mg DAILY PO Last administered on 12/30/16 08:34; Admin Dose 20 MG; Start 12/11/16 at 09:00 Hydralazine HCl (Apresoline) 10 mg Q6H PRN IV SBP>160 Last administered on 12/28 20:28; Admin Dose 10 MG; Start 12/10/16 at 18:00 Atorvastatin Calcium (Lipitor) 10 mg DAILY@21 PO Last administered on 21:16; Admin Dose 10 MG; Start 12/10/16 at 21:00 Heparin Sodium (Porcine) 5000 unit 5,000 unit BID SC Last administered on 21:22; Admin Dose 5,000 UNIT; Start 12/11/16 at 21:00 Amiodarone HCl 900 mg/Dextrose 500 ml @ 0 mls/hr Q0M IV Last administered on 13:49; Admin Dose 33.4 MLS/HR; Start 12/14/16 at 13:00 Diltiazem HCl (Cardizem-D5W 125 Mg/125 ml Drip) 125 ml @ 5 mls/hr TITRATE IV ; Start 12/16/16 at 22:45 Megestrol Acetate (Megace Susp) 400 mg BID PO Last administered on 12/30/16 08 :32; Admin Dose 400 MG; Start 12/17/16 at 13:00 Metoprolol Tartrate (Lopressor) 50 mg BID PO Last administered on 12/30/16 08: 33; Admin Dose 50 MG; Start 12/17/16 at 21:00 Polyethylene Glycol (Miralax) 17 gm BID PO Last administered on 12/30/16 08:33 ; Admin Dose 17 GM; Start 12/21/16 at 21:00 Insulin Aspart (Novolog Insulin Pen) NOVOLOG *MILD* ALGORI... Q4 SC ; Start at 21:00 Miscellaneous Information 1 ea NOTE XX ; Start 12/21/16 at 17:30 Glucose (Glutose) 15 gm Q15M PRN PO DECREASED GLUCOSE; Start 12/21/16 at 17:30 Glucose (Glutose) 22.5 gm Q15M PRN PO DECREASED GLUCOSE; Start 12/21/16 at 17: 30 Dextrose (D50w Syringe) 25 ml Q15M PRN IV DECREASED GLUCOSE; Start 12/21/16 at 17:30 Dextrose (D50w Syringe) 50 ml Q15M PRN IV DECREASED GLUCOSE; Start 12/21/16 at 17:30 Glucagon (Glucagen) 1 mg Q15M PRN IM DECREASED GLUCOSE; Start 12/21/16 at 17:30 Glucose (Glutose) 15 gm Q15M PRN BUCCAL DECREASED GLUCOSE; Start 12/21/16 at 17 :30 Oxycodone HCl (Roxicodone) 10 mg Q6H PRN PO PAIN LEVEL 7-10 Last administered on 12/29/16 17:20; Admin Dose 10 MG; Start 12/25/16 at 13:00 Amiodarone HCl (Cordarone) 200 mg BID PO Last administered on 12/30/16 08:33; Admin Dose 200 MG; Start 12/27/16 at 21:00 Amlodipine Besylate (Norvasc) 5 mg BID PO Last administered on 12/30/16 08:33 ; Admin Dose 5 MG; Start 12/27/16 at 21:00 Chlordiazepoxide (Librium) 25 mg DAILY PO Last administered on 12/30/16 08:34 ; Admin Dose 25 MG; Start 12/30/16 at 09:00; Stop 01/01/17 at 08:59 Zeyad Kelly DO December 30, 2016 11:15
--- NOTE | 2016-12-30 11:52 | PN ---
Date/Time of Note Date/Time of Note DATE: 12/30/16 TIME: 11:29 Assessment/Plan VTE Prophylaxis VTE Prophylaxis Intervention: heparin Lines/Catheters IV [facility] CATH Urinary Cath still in place: No Assessment/Plan Assessment/Plan 1. S/p sepsis 2. S/p Proteus mirabilis urinary tract infection with bacteremia. 3. Acute kidney failure on HD 4. S/p HCAP, poss aspiration. 5. Hypertension. 6. Paroxysmal Atrial fibrillation. 7. History of alcohol abuse. 8. Status post fall 9. Chronic Gout. 10. Stag horn calculus likely from uric acid 11. Chronic compression fractures with spinal stenosis 2/2 DJD of spine 12. Dysphagia. Continue aspiration precautions. Diet as per speech therapy. 13. Metabolic encephalopathy. Brain CT scan negative for any acute findings. Plan: * Continue supportive care and PT * Case mgt is working on placement * Urology is working up patient's calculi * Spent about 35 minutes speaking with patient's sister about care plan. Also spoke with nephrology. * Nephrology plans to remove defective IJ dialysis access at this time and keep patient of dialysis and see how he does. * appreciate all consults Fluids, electrolytes, and nutrition. Low-cholesterol diet. DVT prophylaxis. Subcutaneous heparin. Gastrointestinal prophylaxis. Histamine 2 receptor blockers. Subjective 24 Hr Interval Summary Constitutional: improved Exam/Review of Systems Vital Signs Vitals Vital Signs Date Time Temp Pulse Resp B/P Pulse Ox O2 Delivery O2 Flow Rate FiO2 12/30/16 10:54 Nasal Cannula 2.0 12/30/16 08:04 85 12/30/16 08:00 16 12/30/16 07:41 98.0 119/56 94 Intake and Output 12/29/16 12/29/16 12/30/16 15:00 23:00 07:00 Intake Total 420 ml 150 ml Output Total 1500 ml 1650 ml Balance -1080 ml -1500 ml Exam GENERAL: This is a well-built, well-nourished male patient lying in bed in no apparent distress. HEENT: Head normocephalic and atraumatic. Eyes: Anicteric sclerae. Conjunctivae clear. ENT: Nasal septum is midline. Oral mucosa is dry. NECK: Supple. No JVD noticed. RESPIRATORY: Bilaterally clear to auscultation. No adventitious breath sounds. No use of accessory muscles of respiration, wet cough CARDIAC: Regular rate and rhythm. S1-S2 heard. ABDOMEN: Soft, nontender, nondistended. Bowel sounds positive in all 4 quadrants. GENITOURINARY: Deferred. EXTREMITIES: No cyanosis, no clubbing, no edema. Peripheral pulses are palpable. NEUROLOGIC: The patient is lethargic. Results Result Diagram: 12/29/16 0700 12/29/16 0700 Results 24 hrs Laboratory Tests Test 12/29/16 12:19 12/29/16 17:06 12/29/16 21:11 12/30/16 01:39 Bedside Glucose 78 80 108 82 Test 12/30/16 05:39 12/30/16 07:44 Bedside Glucose 90 113 Medications Medications Current Medications Ondansetron HCl (Zofran Inj) 4 mg Q6H PRN IV NAUSEA AND/OR VOMITING Last administered on 12/24/16 12:08; Admin Dose 4 MG; Start 12/10/16 at 18:00 Magnesium Hydroxide (Milk Of Mag) 30 ml DAILY PRN PO CONSTIPATION Last administered on 12/29/16 08:56; Admin Dose 30 ML; Start 12/10/16 at 18:00 Bisacodyl (Dulcolax) 5 mg DAILY PRN PO CONSTIPATION; Start 12/10/16 at 18:00 Famotidine (Pepcid) 20 mg DAILY PO Last administered on 12/30/16 08:34; Admin Dose 20 MG; Start 12/11/16 at 09:00 Hydralazine HCl (Apresoline) 10 mg Q6H PRN IV SBP>160 Last administered on 12/28 20:28; Admin Dose 10 MG; Start 12/10/16 at 18:00 Atorvastatin Calcium (Lipitor) 10 mg DAILY@21 PO Last administered on 21:16; Admin Dose 10 MG; Start 12/10/16 at 21:00 Heparin Sodium (Porcine) 5000 unit 5,000 unit BID SC Last administered on 21:22; Admin Dose 5,000 UNIT; Start 12/11/16 at 21:00 Diltiazem HCl (Cardizem-D5W 125 Mg/125 ml Drip) 125 ml @ 5 mls/hr TITRATE IV ; Start 12/16/16 at 22:45 Megestrol Acetate (Megace Susp) 400 mg BID PO Last administered on 12/30/16 08 :32; Admin Dose 400 MG; Start 12/17/16 at 13:00 Metoprolol Tartrate (Lopressor) 50 mg BID PO Last administered on 12/30/16 08: 33; Admin Dose 50 MG; Start 12/17/16 at 21:00 Polyethylene Glycol (Miralax) 17 gm BID PO Last administered on 12/30/16 08:33 ; Admin Dose 17 GM; Start 12/21/16 at 21:00 Insulin Aspart (Novolog Insulin Pen) NOVOLOG *MILD* ALGORI... Q4 SC ; Start at 21:00 Miscellaneous Information 1 ea NOTE XX ; Start 12/21/16 at 17:30 Glucose (Glutose) 15 gm Q15M PRN PO DECREASED GLUCOSE; Start 12/21/16 at 17:30 Glucose (Glutose) 22.5 gm Q15M PRN PO DECREASED GLUCOSE; Start 12/21/16 at 17: 30 Dextrose (D50w Syringe) 25 ml Q15M PRN IV DECREASED GLUCOSE; Start 12/21/16 at 17:30 Dextrose (D50w Syringe) 50 ml Q15M PRN IV DECREASED GLUCOSE; Start 12/21/16 at 17:30 Glucagon (Glucagen) 1 mg Q15M PRN IM DECREASED GLUCOSE; Start 12/21/16 at 17:30 Glucose (Glutose) 15 gm Q15M PRN BUCCAL DECREASED GLUCOSE; Start 12/21/16 at 17 :30 Oxycodone HCl (Roxicodone) 10 mg Q6H PRN PO PAIN LEVEL 7-10 Last administered on 12/29/16 17:20; Admin Dose 10 MG; Start 12/25/16 at 13:00 Amiodarone HCl (Cordarone) 200 mg BID PO Last administered on 12/30/16 08:33; Admin Dose 200 MG; Start 12/27/16 at 21:00; Stop 12/30/16 at 21:00 Amlodipine Besylate (Norvasc) 5 mg BID PO Last administered on 12/30/16 08:33 ; Admin Dose 5 MG; Start 12/27/16 at 21:00 Chlordiazepoxide (Librium) 25 mg DAILY PO Last administered on 5/25/17at 08:34 ; Admin Dose 25 MG; Start 12/30/16 at 09:00; Stop 01/01/17 at 08:59 Amiodarone HCl (Cordarone) 200 mg DAILY PO ; Start 12/31/16 at 09:00 CLOVIS SHORE December 30, 2016 11:39
[2016-12-30] MEDS ORDERED: MAGNESIUM CITRATE 300 ML BTL PO ONE (13:30)
--- NOTE | 2016-12-30 13:45 | CONS ---
Date/Time of Note Date/Time of Note DATE: 12/30/16 TIME: 13:44 Assessment/Plan Assessment/Plan Chief Complaint/Hosp Course SUBJECTIVE: No acute changes, awake,confused, no fevers, nad PHYSICAL EXAMINATION: GENERAL: Obese well-developed, middle-aged man who is awake, in no distress. HEENT: Head atraumatic, normocephalic. Sclerae anicteric. Buccal mucosa dry. NECK: Supple, trachea midline. CHEST: Rise symmetrical. Breath sounds clear. HEART: S1, S2. ABDOMEN: Soft, bowel tones present. EXTREMITIES: Without cyanosis. ASSESSMENT: 1. S/p sepsis 2. S/p Proteus mirabilis urinary tract infection with bacteremia. 3. Acute kidney failure, possible chronic kidney disease. 4. S/p HCAP, poss aspiration. 5. Hypertension. 6. Atrial fibrillation. 7. History of alcohol abuse. 8. DJD of thoracic spine PLAN: Remains stable, off abx, pending dc planning to rehab facility [facility] staff Problems: Consultation Date/Type/Reason Admit Date/Time December 10, 2016 at 16:57 Type of Consultation: ID Referring Provider: JACK JENNINGS DRILL RUNNER Exam/Review of Systems Vital Signs Vitals Vital Signs Date Time Temp Pulse Resp B/P Pulse Ox O2 Delivery O2 Flow Rate FiO2 12/30/16 12:21 87 12/30/16 11:45 98.0 18 149/65 91 12/30/16 10:54 Nasal Cannula 2.0 Intake and Output 12/29/16 12/29/16 12/30/16 15:00 23:00 07:00 Intake Total 420 ml 150 ml Output Total 1500 ml 1650 ml Balance -1080 ml -1500 ml Results Result Diagram: 12/29/16 0700 12/29/16 0700 Results 24 hrs Laboratory Tests Test 12/29/16 17:06 12/29/16 21:11 12/30/16 01:39 12/30/16 05:39 Bedside Glucose 80 108 82 90 Test 12/30/16 07:44 12/30/16 12:09 Bedside Glucose 113 80 Medications Medications Current Medications Ondansetron HCl (Zofran Inj) 4 mg Q6H PRN IV NAUSEA AND/OR VOMITING Last administered on 12/24/16t 12:08; Admin Dose 4 MG; Start 12/10/16 at 18:00 Magnesium Hydroxide (Milk Of Mag) 30 ml DAILY PRN PO CONSTIPATION Last administered on 12/29/16 08:56; Admin Dose 30 ML; Start 12/10/16 at 18:00 Bisacodyl (Dulcolax) 5 mg DAILY PRN PO CONSTIPATION; Start 12/10/16 at 18:00 Famotidine (Pepcid) 20 mg DAILY PO Last administered on 12/30/16 08:34; Admin Dose 20 MG; Start 12/11/16 at 09:00 Hydralazine HCl (Apresoline) 10 mg Q6H PRN IV SBP>160 Last administered on 12/28 20:28; Admin Dose 10 MG; Start 12/10/16 at 18:00 Atorvastatin Calcium (Lipitor) 10 mg DAILY@21 PO Last administered on 21:16; Admin Dose 10 MG; Start 12/10/16 at 21:00 Heparin Sodium (Porcine) 5000 unit 5,000 unit BID SC Last administered on 21:22; Admin Dose 5,000 UNIT; Start 12/11/16 at 21:00 Diltiazem HCl (Cardizem-D5W 125 Mg/125 ml Drip) 125 ml @ 5 mls/hr TITRATE IV ; Start 12/16/16 at 22:45 Megestrol Acetate (Megace Susp) 400 mg BID PO Last administered on 12/30/16 08 :32; Admin Dose 400 MG; Start 12/17/16 at 13:00 Metoprolol Tartrate (Lopressor) 50 mg BID PO Last administered on 12/30/16 08: 33; Admin Dose 50 MG; Start 12/17/16 at 21:00 Polyethylene Glycol (Miralax) 17 gm BID PO Last administered on 12/30/16 08:33 ; Admin Dose 17 GM; Start 12/21/16 at 21:00 Insulin Aspart (Novolog Insulin Pen) NOVOLOG *MILD* ALGORI... Q4 SC ; Start at 21:00 Miscellaneous Information 1 ea NOTE XX ; Start 12/21/16 at 17:30 Glucose (Glutose) 15 gm Q15M PRN PO DECREASED GLUCOSE; Start 12/21/16 at 17:30 Glucose (Glutose) 22.5 gm Q15M PRN PO DECREASED GLUCOSE; Start 12/21/16 at 17: 30 Dextrose (D50w Syringe) 25 ml Q15M PRN IV DECREASED GLUCOSE; Start 12/21/16 at 17:30 Dextrose (D50w Syringe) 50 ml Q15M PRN IV DECREASED GLUCOSE; Start 12/21/16 at 17:30 Glucagon (Glucagen) 1 mg Q15M PRN IM DECREASED GLUCOSE; Start 12/21/16 at 17:30 Glucose (Glutose) 15 gm Q15M PRN BUCCAL DECREASED GLUCOSE; Start 12/21/16 at 17 :30 Oxycodone HCl (Roxicodone) 10 mg Q6H PRN PO PAIN LEVEL 7-10 Last administered on 12/29/16 17:20; Admin Dose 10 MG; Start 12/25/16 at 13:00 Amiodarone HCl (Cordarone) 200 mg BID PO Last administered on 12/30/16 08:33; Admin Dose 200 MG; Start 12/27/16 at 21:00; Stop 12/30/16 at 21:00 Amlodipine Besylate (Norvasc) 5 mg BID PO Last administered on 12/30/16 08:33 ; Admin Dose 5 MG; Start 12/27/16 at 21:00 Chlordiazepoxide (Librium) 25 mg DAILY PO Last administered on 12/30/16 08:34 ; Admin Dose 25 MG; Start 12/30/16 at 09:00; Stop 01/01/17 at 08:59 Amiodarone HCl (Cordarone) 200 mg DAILY PO ; Start 12/31/16 at 09:00 CHERRIE JAUREGUI NP December 30, 2016 13:45
[2016-12-30 14:33] LABS: ADD SCAN DIFF NO
[2016-12-30 14:35] LABS: BASOPHIL # 0.1 10^3/ul (0.0-0.1); BASOPHILS % 0.6 % (0.0-2.0); EOSINOPHILS # 0.2 10^3/ul (0.0-0.5); EOSINOPHILS % 2.3 % (0.0-7.0); HEMOGLOBIN 8.4 g/dl (14.0-18.0); LYMPHOCYTES # 1.1 10^3/ul (0.8-2.9); MEAN CORPUSCULAR HEMOGLOBIN 30.5 pg (29.0-33.0); MEAN CORPUSCULAR HGB CONC 32.3 g/dl (32.0-37.0); MEAN CORPUSCULAR VOLUME 94.5 fl (82.0-101.0); MEAN PLATELET VOLUME 10.1 fl (7.4-10.4); MONOCYTE # 0.6 10^3/ul (0.3-0.9); MONOCYTES % 6.2 % (0.0-11.0); NEUTROPHIL # 7.5 10^3/ul (1.6-7.5); PLATELET COUNT 336 10^3/UL (140-415); RED BLOOD COUNT 2.75 10^6/ul (4.70-6.10); RED CELL DISTRIBUTION WIDTH 14.9 % (11.5-14.5); WHITE BLOOD COUNT 9.5 10^3/ul (4.8-10.8)
[2016-12-30 14:52] LABS: INR 1.37; PROTIME 16.9 Sec (12.2-14.2); PT RATIO 1.3
[2016-12-30 14:56] LABS: ALBUMIN 2.9 g/dl (3.3-4.9); CALCIUM 9.9 mg/dl (8.4-10.2); CREATININE 4.74 mg/dl (0.61-1.24); MAGNESIUM 2.1 mg/dl (1.7-2.5); PHOSPHORUS 4.4 mg/dl (2.5-4.9); POTASSIUM 4.3 mmol/L (3.5-5.1)
[2016-12-30] MEDS: oxyCODONE 5 MG TAB PO PRN (15:40)
[2016-12-30] MEDS: hydrALAzine 20 MG INJ IV PRN (15:48)
--- NOTE | 2016-12-30 16:11 | PN ---
Date/Time of Note Date/Time of Note DATE: 12/30/16 TIME: 16:10 Assessment/Plan VTE Prophylaxis VTE Prophylaxis Intervention: SCD's Lines/Catheters [facility] Urinary Cath still in place: No Assessment/Plan Chief Complaint/Hosp Course Problems: Assessment/Plan Dysphagia * Failure to thrive * Acute kidney injury * hypertension * Gout * Atrial fibrillation Plan * continue present management * swallow evaluation * still for barium swallow with speech evaluation Subjective 24 Hr Interval Summary Free Text/Dictation * Course reviewed with RN * Still awaiting barium swallow esophagogram * Patient going to radiology Exam/Review of Systems Vital Signs Vitals Vital Signs Date Time Temp Pulse Resp B/P Pulse Ox O2 Delivery O2 Flow Rate FiO2 12/30/16 16:07 90 12/30/16 15:59 98.0 18 180/79 97 12/30/16 10:54 Nasal Cannula 2.0 Intake and Output 12/29/16 12/29/16 12/30/16 15:00 23:00 07:00 Intake Total 420 ml 150 ml Output Total 1500 ml 1650 ml Balance -1080 ml -1500 ml Exam Constitutional: alert, frail Neck: non-tender, supple Respiratory: clear to auscultation, diminished breath sounds, normal air movement Cardiovascular: nl pulses, regular rate and rhythm Gastrointestinal: non-tender, soft Musculoskeletal: nl extremities to inspection, nl gait and stance Extremities: normal pulses Results Result Diagram: 12/30/16 1354 12/30/16 1354 Results 24 hrs Laboratory Tests Test 12/29/16 17:06 12/29/16 21:11 12/30/16 01:39 12/30/16 05:39 Bedside Glucose 80 108 82 90 Test 12/30/16 07:44 12/30/16 12:09 12/30/16 13:54 Bedside Glucose 113 80 White Blood Count 9.5 Red Blood Count 2.75 L Hemoglobin 8.4 L Hematocrit 26.0 L Mean Corpuscular Volume 94.5 Mean Corpuscular Hemoglobin 30.5 Mean Corpuscular Hemoglobin Concent 32.3 Red Cell Distribution Width 14.9 H Platelet Count 336 Mean Platelet Volume 10.1 Neutrophils % 79.0 H Lymphocytes % 11.0 L Monocytes % 6.2 Eosinophils % 2.3 Basophils % 0.6 Nucleated Red Blood Cells % 0.0 Neutrophils # 7.5 Lymphocytes # 1.1 Monocytes # 0.6 Eosinophils # 0.2 Basophils # 0.1 Nucleated Red Blood Cells # 0.0 Prothrombin Time 16.9 H Prothrombin Time Ratio 1.3 INR International Normalized Ratio 1.37 Activated Partial Thromboplast Time 39.0 H Sodium Level 146 H Potassium Level 4.3 Chloride Level 112 H Carbon Dioxide Level 26 Anion Gap 12 Blood Urea Nitrogen 34 #H Creatinine 4.74 #H Glucose Level 85 Calcium Level 9.9 Phosphorus Level 4.4 Magnesium Level 2.1 Albumin 2.9 L Prostate Specific Antigen < 0.1 Medications Medications Current Medications Ondansetron HCl (Zofran Inj) 4 mg Q6H PRN IV NAUSEA AND/OR VOMITING Last administered on 12/24/16 12:08; Admin Dose 4 MG; Start 12/10/16 at 18:00 Magnesium Hydroxide (Milk Of Mag) 30 ml DAILY PRN PO CONSTIPATION Last administered on 12/29/16 08:56; Admin Dose 30 ML; Start 12/10/16 at 18:00 Bisacodyl (Dulcolax) 5 mg DAILY PRN PO CONSTIPATION; Start 12/10/16 at 18:00 Famotidine (Pepcid) 20 mg DAILY PO Last administered on 12/30/16 08:34; Admin Dose 20 MG; Start 12/11/16 at 09:00 Hydralazine HCl (Apresoline) 10 mg Q6H PRN IV SBP>160 Last administered on 12/30 15:48; Admin Dose 10 MG; Start 12/10/16 at 18:00 Atorvastatin Calcium (Lipitor) 10 mg DAILY@21 PO Last administered on 21:16; Admin Dose 10 MG; Start 12/10/16 at 21:00 Heparin Sodium (Porcine) 5000 unit 5,000 unit BID SC Last administered on 21:22; Admin Dose 5,000 UNIT; Start 12/11/16 at 21:00 Diltiazem HCl (Cardizem-D5W 125 Mg/125 ml Drip) 125 ml @ 5 mls/hr TITRATE IV ; Start 12/16/16 at 22:45 Megestrol Acetate (Megace Susp) 400 mg BID PO Last administered on 12/30/16 08 :32; Admin Dose 400 MG; Start 12/17/16 at 13:00 Metoprolol Tartrate (Lopressor) 50 mg BID PO Last administered on 12/30/16 08: 33; Admin Dose 50 MG; Start 12/17/16 at 21:00 Polyethylene Glycol (Miralax) 17 gm BID PO Last administered on 12/30/16 08:33 ; Admin Dose 17 GM; Start 12/21/16 at 21:00 Insulin Aspart (Novolog Insulin Pen) NOVOLOG *MILD* ALGORI... Q4 SC ; Start at 21:00 Miscellaneous Information 1 ea NOTE XX ; Start 12/21/16 at 17:30 Glucose (Glutose) 15 gm Q15M PRN PO DECREASED GLUCOSE; Start 12/21/16 at 17:30 Glucose (Glutose) 22.5 gm Q15M PRN PO DECREASED GLUCOSE; Start 12/21/16 at 17: 30 Dextrose (D50w Syringe) 25 ml Q15M PRN IV DECREASED GLUCOSE; Start 12/21/16 at 17:30 Dextrose (D50w Syringe) 50 ml Q15M PRN IV DECREASED GLUCOSE; Start 12/21/16 at 17:30 Glucagon (Glucagen) 1 mg Q15M PRN IM DECREASED GLUCOSE; Start 12/21/16 at 17:30 Glucose (Glutose) 15 gm Q15M PRN BUCCAL DECREASED GLUCOSE; Start 12/21/16 at 17 :30 Oxycodone HCl (Roxicodone) 10 mg Q6H PRN PO PAIN LEVEL 7-10 Last administered on 12/30/16 15:40; Admin Dose 10 MG; Start 12/25/16 at 13:00 Amiodarone HCl (Cordarone) 200 mg BID PO Last administered on 12/30/16 08:33; Admin Dose 200 MG; Start 12/27/16 at 21:00; Stop 12/30/16 at 21:00 Amlodipine Besylate (Norvasc) 5 mg BID PO Last administered on 12/30/16 08:33 ; Admin Dose 5 MG; Start 12/27/16 at 21:00 Chlordiazepoxide (Librium) 25 mg DAILY PO Last administered on 12/30/16 08:34 ; Admin Dose 25 MG; Start 12/30/16 at 09:00; Stop 01/01/17 at 08:59 Amiodarone HCl (Cordarone) 200 mg DAILY PO ; Start 12/31/16 at 09:00 TYLER ARZATE MD December 30, 2016 16:11
--- NOTE | 2016-12-30 18:24 | RADRPT ---
PROCEDURE: CT abdomen and pelvis without contrast. CLINICAL INDICATION: Acute renal failure. Renal or ureteral stones. TECHNIQUE: CT of the abdomen and pelvis without contrast was performed on a multidetector high-resolution CT [facility]. Coronal and sagittal reformatted images were obtained from the axial source images. Images we re reviewed on a high-resolution PACS workstation. The total exam CTDI equals 20.5 a mGy and the tot al exam DLP equals 1210.33 mGy-cm. One or more of the following dose reduction techniques were used: - Automated exposure control. - Adjustment of the mA and/or kV according to patient size. - Use of iterative reconstruction technique. COMPARISON: Abdominal plain film dated 12/29/2016. FINDINGS: Visualized lower thorax: There are moderate right and small to moderate left pleural effusions with associated dependent comp ressive atelectasis. There multivessel coronary artery calcifications. The visualized heart is othe rwise unremarkable. Hepatobiliary system and spleen: The liver is grossly unremarkable. There is no intra or extrahepatic biliary ductal dilatation. Ther e is high-density material in the gallbladder, possibly related to vicarious excretion of contrast o r layering high-density sludge. The spleen is grossly unremarkable. The pancreas is grossly unremark able. Adrenal glands and genitourinary system: The adrenal glands are grossly unremarkable. There is right renal edema and mild to moderate right h ydronephrosis and hydroureter with no radiopaque obstructing stone identified. Evaluation of the di stal right ureter is partially limited due to beam hardening artifact from a right hip arthroplasty in place. There is a nonobstructing staghorn calculus at the lower pole of the right kidney measuri ng 1.7 cm. There is also a nonobstructing staghorn calculus at the lower pole of the left kidney jose suring 2.1 cm. There is no left-sided hydronephrosis. There is linear calcification within the inf erior urinary bladder measuring 12 mm in length, which was remote from the UVJ. There is air within the urinary bladder. The prostate gland appears surgically absent. Gastrointestinal system: The stomach and small bowel are unremarkable. There is sigmoid and descending colonic diverticulosis without bowel wall thickening or evidence of obstruction. The appendix is not identified. Peritoneum, vascular, and lymphatics: There is no free intraperitoneal air or free fluid. There is no mesenteric or retroperitoneal adenop athy. There are atherosclerotic changes of the aorta, which is nonaneurysmal. There has been prior m esh repair of a a periumbilical hernia without evidence of residual or recurrent hernia. There is pr esacral edema and dependent body wall edema. Musculoskeletal system: There are no concerning osseous lesions. There has been prior vertebroplasty at L1. There is severe multilevel degenerative spondylosis. There is extensive irregular erosive change involving the endp lates bordering the T11-12 intervertebral disk space with surrounding soft tissue prominence, which is suspicious for underlying diskitis osteomyelitis. IMPRESSION: 1. Right renal edema with mild to moderate right hydroureteronephrosis, but no radiopaque obstructi ng stone or definite source of obstruction is identified, with the distal ureter being partially obs cured due to beam hardening artifact from a right hip arthroplasty in place. This can be further jovanny luated with multiphase CT urogram. 2. Staghorn calculi at the lower poles of both kidneys. No left-sided hydronephrosis. 3. Moderate right and small to moderate left pleural effusions with associated dependent compressiv e atelectasis. 4. High-density material in the gallbladder, possibly related to vicarious excretion of intravenous contrast or sludge. 5 Vascular calcifications consistent with atherosclerosis. 6. Irregular erosive change involving the endplates bordering the T11-12 intervertebral disk space, greater than expected for degenerative spondylosis, with abnormal paravertebral soft tissue density at this level, suspicious for underlying diskitis osteomyelitis. Further evaluation with MRI of th e thoracolumbar spine is recommended. 7. Presacral and dependent body wall edema. RPTAT: GG .Jose Jaramillo MD, MD Date Time Electronically viewed and signed by .Jose Jaramillo MD, MD on 12/30/2016 18:24 .P/
[2016-12-30] MEDS: ATORVASTATIN 10 MG TAB PO SCH (21:19)
[2016-12-31] VITALS (10 sets, daily range): BP systolic 124–165; BP diastolic 58–85; PULSE 77–86; RESP 17–19
[2016-12-31] MEDS: INSULIN ASPART [NOVOLOG] 3 ML PEN SC SCH ×6 (01:00→21:00)
[2016-12-31 07:42] LABS: ADD SCAN DIFF NO
[2016-12-31 08:02] LABS: BASOPHIL # 0.1 10^3/ul (0.0-0.1); BASOPHILS % 0.7 % (0.0-2.0); EOSINOPHILS # 0.2 10^3/ul (0.0-0.5); EOSINOPHILS % 2.4 % (0.0-7.0); HEMOGLOBIN 8.3 g/dl (14.0-18.0); LYMPHOCYTES # 0.9 10^3/ul (0.8-2.9); LYMPHOCYTES % 10.9 % (15.0-51.0); MEAN CORPUSCULAR HEMOGLOBIN 30.4 pg (29.0-33.0); MEAN CORPUSCULAR HGB CONC 31.9 g/dl (32.0-37.0); MEAN CORPUSCULAR VOLUME 95.2 fl (82.0-101.0); MEAN PLATELET VOLUME 10.1 fl (7.4-10.4); MONOCYTE # 0.8 10^3/ul (0.3-0.9); MONOCYTES % 9.2 % (0.0-11.0); NEUTROPHIL # 6.4 10^3/ul (1.6-7.5); PLATELET COUNT 314 10^3/UL (140-415); RED BLOOD COUNT 2.73 10^6/ul (4.70-6.10); RED CELL DISTRIBUTION WIDTH 14.9 % (11.5-14.5); WHITE BLOOD COUNT 8.4 10^3/ul (4.8-10.8)
[2016-12-31 08:06] LABS: ALBUMIN 2.9 g/dl (3.3-4.9); CREATININE 5.12 mg/dl (0.61-1.24); PHOSPHORUS 4.3 mg/dl (2.5-4.9); POTASSIUM 4.8 mmol/L (3.5-5.1)
--- NOTE | 2016-12-31 10:17 | CONS ---
Date/Time of Note Date/Time of Note DATE: 12/31/16 TIME: 10:16 Assessment/Plan Assessment/Plan Additional Assessment/Plan Acute kidney injury Preserved ejection fraction Status post fall Sepsis with bacteremia Paroxysmal atrial fibrillation, currently sinus rhythm History of hypertension Recent UTI Alcohol abuse -Blood pressure trend overall improved but still with episodes of hypertension. If remains elevated, would increase medication regimen. Remains in sinus rhythm on telemetry. Continue amiodarone. Fluid management and diuretics as per our nephrology colleagues. Consultation Date/Type/Reason Admit Date/Time December 10, 2016 at 16:57 Type of Consultation: cv Referring Provider: JACK JENNINGS NP 24 HR Interval Summary Free Text/Dictation Denies chest pain, shortness of breath, palpitations Exam/Review of Systems Vital Signs Vitals Vital Signs Date Time Temp Pulse Resp B/P Pulse Ox O2 Delivery O2 Flow Rate FiO2 12/31/16 08:19 81 12/31/16 07:56 97.5 19 161/79 95 12/30/16 20:00 Nasal Cannula 2.0 Intake and Output 12/30/16 12/30/16 12/31/16 15:00 23:00 07:00 Intake Total 300 ml 100 ml 120 ml Output Total 2300 ml 890 ml 350 ml Balance -2000 ml -790 ml -230 ml Exam Following commands, confused at times, no apparent distress Constitutional: alert Head: normocephalic Respiratory: other (Coarse breath sounds bilaterally, no wheezing) Cardiovascular: other (S1-S2 heard), regular rate and rhythm Gastrointestinal: bowel sounds, non-tender, soft Extremities: edema Results Result Diagram: 12/31/16 0645 12/31/16 0645 Results 24 hrs Laboratory Tests Test 12/30/16 12:09 12/30/16 13:54 12/30/16 17:06 12/30/16 21:18 Bedside Glucose 80 93 99 White Blood Count 9.5 Red Blood Count 2.75 L Hemoglobin 8.4 L Hematocrit 26.0 L Mean Corpuscular Volume 94.5 Mean Corpuscular Hemoglobin 30.5 Mean Corpuscular Hemoglobin Concent 32.3 Red Cell Distribution Width 14.9 H Platelet Count 336 Mean Platelet Volume 10.1 Neutrophils % 79.0 H Lymphocytes % 11.0 L Monocytes % 6.2 Eosinophils % 2.3 Basophils % 0.6 Nucleated Red Blood Cells % 0.0 Neutrophils # 7.5 Lymphocytes # 1.1 Monocytes # 0.6 Eosinophils # 0.2 Basophils # 0.1 Nucleated Red Blood Cells # 0.0 Prothrombin Time 16.9 H Prothrombin Time Ratio 1.3 INR International Normalized Ratio 1.37 Activated Partial Thromboplast Time 39.0 H Sodium Level 146 H Potassium Level 4.3 Chloride Level 112 H Carbon Dioxide Level 26 Anion Gap 12 Blood Urea Nitrogen 34 #H Creatinine 4.74 #H Glucose Level 85 Calcium Level 9.9 Phosphorus Level 4.4 Magnesium Level 2.1 Albumin 2.9 L Prostate Specific Antigen < 0.1 Test 12/31/16 01:25 12/31/16 05:52 12/31/16 06:45 12/31/16 08:28 Bedside Glucose 108 92 94 White Blood Count 8.4 Red Blood Count 2.73 L Hemoglobin 8.3 L Hematocrit 26.0 L Mean Corpuscular Volume 95.2 Mean Corpuscular Hemoglobin 30.4 Mean Corpuscular Hemoglobin Concent 31.9 L Red Cell Distribution Width 14.9 H Platelet Count 314 Mean Platelet Volume 10.1 Neutrophils % 76.0 Lymphocytes % 10.9 L Monocytes % 9.2 Eosinophils % 2.4 Basophils % 0.7 Nucleated Red Blood Cells % 0.0 Neutrophils # 6.4 Lymphocytes # 0.9 Monocytes # 0.8 Eosinophils # 0.2 Basophils # 0.1 Nucleated Red Blood Cells # 0.0 Sodium Level 147 H Potassium Level 4.8 Chloride Level 113 H Carbon Dioxide Level 28 Anion Gap 11 Blood Urea Nitrogen 38 H Creatinine 5.12 H Glucose Level 86 Calcium Level 10.0 Phosphorus Level 4.3 Albumin 2.9 L Medications Medications Current Medications Ondansetron HCl (Zofran Inj) 4 mg Q6H PRN IV NAUSEA AND/OR VOMITING Last administered on 12/24/16 12:08; Admin Dose 4 MG; Start 12/10/16 at 18:00 Magnesium Hydroxide (Milk Of Mag) 30 ml DAILY PRN PO CONSTIPATION Last administered on 12/29/16 08:56; Admin Dose 30 ML; Start 12/10/16 at 18:00 Bisacodyl (Dulcolax) 5 mg DAILY PRN PO CONSTIPATION; Start 12/10/16 at 18:00 Famotidine (Pepcid) 20 mg DAILY PO Last administered on 5/25/17at 08:34; Admin Dose 20 MG; Start 12/11/16 at 09:00 Hydralazine HCl (Apresoline) 10 mg Q6H PRN IV SBP>160 Last administered on 12/30 15:48; Admin Dose 10 MG; Start 12/10/16 at 18:00 Atorvastatin Calcium (Lipitor) 10 mg DAILY@21 PO Last administered on 21:19; Admin Dose 10 MG; Start 12/10/16 at 21:00 Heparin Sodium (Porcine) 5000 unit 5,000 unit BID SC Last administered on 21:23; Admin Dose 5,000 UNIT; Start 12/11/16 at 21:00 Diltiazem HCl (Cardizem-D5W 125 Mg/125 ml Drip) 125 ml @ 5 mls/hr TITRATE IV ; Start 12/16/16 at 22:45 Megestrol Acetate (Megace Susp) 400 mg BID PO Last administered on 12/30/16 21 :17; Admin Dose 400 MG; Start 12/17/16 at 13:00 Metoprolol Tartrate (Lopressor) 50 mg BID PO Last administered on 12/30/16 21: 20; Admin Dose 50 MG; Start 12/17/16 at 21:00 Polyethylene Glycol (Miralax) 17 gm BID PO Last administered on 12/30/16 21:19 ; Admin Dose 17 GM; Start 12/21/16 at 21:00 Insulin Aspart (Novolog Insulin Pen) NOVOLOG *MILD* ALGORI... Q4 SC ; Start at 21:00 Miscellaneous Information 1 ea NOTE XX ; Start 12/21/16 at 17:30 Glucose (Glutose) 15 gm Q15M PRN PO DECREASED GLUCOSE; Start 12/21/16 at 17:30 Glucose (Glutose) 22.5 gm Q15M PRN PO DECREASED GLUCOSE; Start 12/21/16 at 17: 30 Dextrose (D50w Syringe) 25 ml Q15M PRN IV DECREASED GLUCOSE; Start 12/21/16 at 17:30 Dextrose (D50w Syringe) 50 ml Q15M PRN IV DECREASED GLUCOSE; Start 12/21/16 at 17:30 Glucagon (Glucagen) 1 mg Q15M PRN IM DECREASED GLUCOSE; Start 12/21/16 at 17:30 Glucose (Glutose) 15 gm Q15M PRN BUCCAL DECREASED GLUCOSE; Start 12/21/16 at 17 :30 Oxycodone HCl (Roxicodone) 10 mg Q6H PRN PO PAIN LEVEL 7-10 Last administered on 12/30/16 15:40; Admin Dose 10 MG; Start 12/25/16 at 13:00 Amlodipine Besylate (Norvasc) 5 mg BID PO Last administered on 12/30/16 21:19 ; Admin Dose 5 MG; Start 12/27/16 at 21:00 Chlordiazepoxide (Librium) 25 mg DAILY PO Last administered on 12/30/16 08:34 ; Admin Dose 25 MG; Start 12/30/16 at 09:00; Stop 01/01/17 at 08:59 Amiodarone HCl (Cordarone) 200 mg DAILY PO ; Start 12/31/16 at 09:00 Zeyad Kelly DO December 31, 2016 10:17
[2016-12-31] MEDS ORDERED: LIDOCAINE 1% (MPF) 5 ML VIAL ONE (11:01)
[2016-12-31] MEDS: METOPROLOL 50 MG TAB PO SCH ×2 (12:10→22:14)
[2016-12-31] MEDS: POLYETHYLENE GLYCOL 17 GM PACKET PO SCH ×2 (12:10→22:13)
[2016-12-31] MEDS: CHLORDIAZEPOXIDE 25 MG CAP PO SCH (12:10)
[2016-12-31] MEDS: AMLODIPINE 5 MG TAB PO SCH ×2 (12:11→22:14)
[2016-12-31] MEDS: AMIODARONE 200 MG TAB PO SCH (12:11)
[2016-12-31] MEDS: FAMOTIDINE 20 MG TAB PO SCH (12:11)
[2016-12-31] MEDS: MEGESTROL (40 MG/ML) 10ML CUP PO SCH ×2 (12:11→22:13)
[2016-12-31] MEDS: HEPARIN 5,000 UNIT/0.5 ML VIAL SC SCH ×2 (12:13→22:17)
--- NOTE | 2016-12-31 15:01 | PN ---
DATE: 12/31/2016 INFECTIOUS DISEASE PROGRESS NOTE SUBJECTIVE: No acute changes. The patient is lying comfortably in bed. He is still pleasantly con fused. Refused physical therapy today. No fevers. WBC 8.4. No shift, no bands. BUN 38, creatini ne 5.12. DIAGNOSTICS: CT of the abdomen and pelvis from yesterday revealed renal edema on the right, with mi ld to moderate right hydroureteronephrosis. No definite obstruction. Staghorn calculi at the lower poles of both kidneys. No left-sided hydronephrosis. Irregular erosive change involving the endpl ates bordering the T11/12 intervertebral disk space, greater than expected for degenerative spondylo listhesis, suspicious for diskitis and osteomyelitis. PHYSICAL EXAMINATION: GENERAL: This is a fragile, chronically ill-appearing, elderly man, who is in no distress. HEENT: Head atraumatic, normocephalic. Sclerae anicteric. Buccal mucosa dry. NECK: Supple, trachea midline. CHEST: Chest rise is symmetrical. Breath sounds diminished to the bases. HEART: S1, S2. ABDOMEN: Soft, bowel tones present. EXTREMITIES: Without cyanosis. ASSESSMENT: 1. Sepsis with bacteremia on admission, repeat blood cultures negative, patient completed antibioti cs. 2. Status post urinary tract infection. 3. Encephalopathy. 4. Bilateral kidney stones, urology on the case. 5. Chronic back pain with a CT of the abdomen and pelvis concerning for diskitis at T11/12 border a nd osteomyelitis. MRI of thoracic spine on December 18 revealed degeneration versus infection over the p osterior disk bulge; however, the examination was limited at that time because motion artifact and t he patient's inability to cooperate. 6. Acute on chronic kidney disease. 7. Hypertension and atrial fibrillation. 8. Status post pneumonia. PLAN: The patient remains stable. Blood cultures have been negative. He completed 2 weeks of IV an tibiotics. Again, MRI of the thoracic spine revealed no evidence of osteomyelitis and diskitis; how ever, there is a recommendation to repeat imaging with contrast, which we recommend to do to rule ou t osteomyelitis. Dictated By: CHERRIE JAUREGUI BACK ROLLER for AYAD RUIZ/RIKA Conf#: [id number] DID#: [id number]
[2016-12-31] MEDS: FUROSEMIDE 20 MG TAB PO SCH ×2 (15:47→17:16)
--- NOTE | 2016-12-31 15:59 | RADRPT ---
PROCEDURE: US guided right thoracentesis. CLINICAL INDICATION: Shortness of breath. Right pleural effusion. TECHNIQUE: Prior to the procedure, informed consent was obtained. The risks, benefits, and alternatives were e xplained to the patient or the patient's family, including but not limited to bleeding, infection, p ain, visceral or vascular damage, shock, pneumothorax, chest tube placement, air embolism, and . The patient or the patient's family understood the risks and the alternatives and wished to proce ed with the study. Informed written consent was obtained. A procedural pause was performed. The patient's name, date of , and procedure to be performed were verified. Ultrasound of the right hemithorax was performed in the axial and sagittal planes. A right pleural e ffusion is noted. Utilizing ultrasound guidance, optimal location for entry to the pleural cavity wa s ascertained. The overlying skin was prepped and draped in the usual sterile fashion. Approximate ly 10 ml of 1% Xylocaine was injected locally for pain control. Using ultrasound guidance, a 5-Fren Yueh catheter was introduced into the right pleural space without difficulty. Fluid was aspirated . COMPARISON: None. FINDINGS: Initial ultrasound demonstrates fluid in the right pleural space. Approximately 2.21 liters of sero us fluid was aspirated sent with the patient to the nurses' station. IMPRESSION: 1. Satisfactory ultrasound-guided right thoracentesis. RPTAT: QQ .Trung De Anda MD, MD Date Time Electronically viewed and signed by .Trung De Anda MD, on 12/31/2016 15:59 .R/
--- NOTE | 2016-12-31 16:17 | RADRPT ---
PROCEDURE: XR Chest. CLINICAL INDICATION: Shortness of breath. Post right thoracentesis. TECHNIQUE: Single frontal view. COMPARISON: 12/29/2016. FINDINGS: Previously noted right pleural effusion is now much smaller. There is improved aeration of the righ t lung. There is a small left pleural effusion and mild left basilar atelectasis. The heart size is normal. There is calcification in the aorta consistent with atherosclerosis. There is a right internal jugular vein temporary dialysis catheter as seen previously. There is no pneumothorax. IMPRESSION: 1. No pneumothorax following right thoracentesis. 2. Improved aeration of the right lung. RPTAT: QQ .Trung De Anda MD, MD Date Time Electronically viewed and signed by .Trung De Anda MD, MD on 12/31/2016 16:16 .R/
--- NOTE | 2016-12-31 16:25 | PN ---
Date/Time of Note Date/Time of Note DATE: 12/31/16 TIME: 16:21 Assessment/Plan VTE Prophylaxis VTE Prophylaxis Intervention: heparin Lines/Catheters IV Catheter Type (from [facility] Saline Lock Assessment/Plan Chief Complaint/Hosp Course 1. S/p sepsis 2. S/p Proteus mirabilis urinary tract infection with bacteremia. 3. Acute kidney failure on HD 4. S/p HCAP, poss aspiration. 5. Hypertension. 6. Paroxysmal Atrial fibrillation. 7. History of alcohol abuse. 8. Status post fall 9. Chronic Gout. 10. Stag horn calculus likely from uric acid 11. Chronic compression fractures with spinal stenosis 2/2 DJD of spine 12. Dysphagia. Continue aspiration precautions. Diet as per speech therapy. 13. Metabolic encephalopathy likely secondary to delirium- CT brain negative for any acute findings. Plan: * Continue supportive care and PT * Case mgt is working on placement * Urology is working up patient's calculi * Orthopedics consult for evaluation of spinal stenosis * Nephrology to remove defective IJ dialysis access at this time and keep patient of dialysis and see how he does. DVT prophylaxis. Subcutaneous heparin. Gastrointestinal prophylaxis. Histamine 2 receptor blockers. Problems: Subjective 24 Hr Interval Summary Constitutional: disoriented Exam/Review of Systems Vital Signs Vitals Vital Signs Date Time Temp Pulse Resp B/P Pulse Ox O2 Delivery O2 Flow Rate FiO2 12/31/16 16:07 77 12/31/16 16:01 98.3 18 165/85 91 12/31/16 08:00 Nasal Cannula 2.0 Intake and Output 12/30/16 12/30/16 12/31/16 15:00 23:00 07:00 Intake Total 300 ml 100 ml 120 ml Output Total 2300 ml 890 ml 350 ml Balance -2000 ml -790 ml -230 ml Exam Psych: confusion Respiratory: clear to auscultation Cardiovascular: regular rate and rhythm Gastrointestinal: soft, No distended Musculoskeletal: nl extremities to inspection Results Result Diagram: 12/31/16 0645 12/31/16 0645 Results 24 hrs Laboratory Tests Test 12/30/16 17:06 12/30/16 21:18 12/31/16 01:25 12/31/16 05:52 Bedside Glucose 93 99 108 92 Test 12/31/16 06:45 12/31/16 08:28 12/31/16 12:09 White Blood Count 8.4 Red Blood Count 2.73 L Hemoglobin 8.3 L Hematocrit 26.0 L Mean Corpuscular Volume 95.2 Mean Corpuscular Hemoglobin 30.4 Mean Corpuscular Hemoglobin Concent 31.9 L Red Cell Distribution Width 14.9 H Platelet Count 314 Mean Platelet Volume 10.1 Neutrophils % 76.0 Lymphocytes % 10.9 L Monocytes % 9.2 Eosinophils % 2.4 Basophils % 0.7 Nucleated Red Blood Cells % 0.0 Neutrophils # 6.4 Lymphocytes # 0.9 Monocytes # 0.8 Eosinophils # 0.2 Basophils # 0.1 Nucleated Red Blood Cells # 0.0 Sodium Level 147 H Potassium Level 4.8 Chloride Level 113 H Carbon Dioxide Level 28 Anion Gap 11 Blood Urea Nitrogen 38 H Creatinine 5.12 H Glucose Level 86 Calcium Level 10.0 Phosphorus Level 4.3 Albumin 2.9 L Bedside Glucose 94 97 Medications Medications Current Medications Ondansetron HCl (Zofran Inj) 4 mg Q6H PRN IV NAUSEA AND/OR VOMITING Last administered on 12/24/16 12:08; Admin Dose 4 MG; Start 12/10/16 at 18:00 Magnesium Hydroxide (Milk Of Mag) 30 ml DAILY PRN PO CONSTIPATION Last administered on 12/29/16 08:56; Admin Dose 30 ML; Start 12/10/16 at 18:00 Bisacodyl (Dulcolax) 5 mg DAILY PRN PO CONSTIPATION; Start 12/10/16 at 18:00 Famotidine (Pepcid) 20 mg DAILY PO Last administered on 12/31/16 12:11; Admin Dose 20 MG; Start 12/11/16 at 09:00 Hydralazine HCl (Apresoline) 10 mg Q6H PRN IV SBP>160 Last administered on 12/30 15:48; Admin Dose 10 MG; Start 12/10/16 at 18:00 Atorvastatin Calcium (Lipitor) 10 mg DAILY@21 PO Last administered on 21:19; Admin Dose 10 MG; Start 12/10/16 at 21:00 Heparin Sodium (Porcine) 5000 unit 5,000 unit BID SC Last administered on 12:13; Admin Dose 5,000 UNIT; Start 12/11/16 at 21:00 Diltiazem HCl (Cardizem-D5W 125 Mg/125 ml Drip) 125 ml @ 5 mls/hr TITRATE IV ; Start 12/16/16 at 22:45 Megestrol Acetate (Megace Susp) 400 mg BID PO Last administered on 12/31/16 12 :11; Admin Dose 400 MG; Start 12/17/16 at 13:00 Metoprolol Tartrate (Lopressor) 50 mg BID PO Last administered on 12/31/16 12: 10; Admin Dose 50 MG; Start 12/17/16 at 21:00 Polyethylene Glycol (Miralax) 17 gm BID PO Last administered on 12/31/16 12:10 ; Admin Dose 17 GM; Start 12/21/16 at 21:00 Insulin Aspart (Novolog Insulin Pen) NOVOLOG *MILD* ALGORI... Q4 SC ; Start at 21:00 Miscellaneous Information 1 ea NOTE XX ; Start 12/21/16 at 17:30 Glucose (Glutose) 15 gm Q15M PRN PO DECREASED GLUCOSE; Start 12/21/16 at 17:30 Glucose (Glutose) 22.5 gm Q15M PRN PO DECREASED GLUCOSE; Start 12/21/16 at 17: 30 Dextrose (D50w Syringe) 25 ml Q15M PRN IV DECREASED GLUCOSE; Start 12/21/16 at 17:30 Dextrose (D50w Syringe) 50 ml Q15M PRN IV DECREASED GLUCOSE; Start 12/21/16 at 17:30 Glucagon (Glucagen) 1 mg Q15M PRN IM DECREASED GLUCOSE; Start 12/21/16 at 17:30 Glucose (Glutose) 15 gm Q15M PRN BUCCAL DECREASED GLUCOSE; Start 12/21/16 at 17 :30 Oxycodone HCl (Roxicodone) 10 mg Q6H PRN PO PAIN LEVEL 7-10 Last administered on 12/30/16 15:40; Admin Dose 10 MG; Start 12/25/16 at 13:00 Amlodipine Besylate (Norvasc) 5 mg BID PO Last administered on 12/31/16 12:11 ; Admin Dose 5 MG; Start 12/27/16 at 21:00 Chlordiazepoxide (Librium) 25 mg DAILY PO Last administered on 12/31/16 12:10 ; Admin Dose 25 MG; Start 12/30/16 at 09:00; Stop 01/01/17 at 08:59 Amiodarone HCl (Cordarone) 200 mg DAILY PO Last administered on 12/31/16t 12:11 ; Admin Dose 200 MG; Start 12/31/16 at 09:00 HALEY MAN December 31, 2016 16:25
--- NOTE | 2016-12-31 17:07 | CONS ---
Date/Time of Note Date/Time of Note DATE: 12/31/16 TIME: 17:03 Assessment/Plan Assessment/Plan Additional Assessment/Plan 1. Acute kidney injury, multifactorial, not improving despite being on IVF hydration, BUN/Cr persistently high ,.started on HD during this admission 2. Hyponatremia - improved 3. Status post fall, which was a mechanical fall, but likely due to the hyponatremia. CT brain is negative. 4. Possible history of chronic kidney disease secondary to hypertensive nephrosclerosis. 5. History of hypertension. 6. History of gout. 7. History of hyperlipidemia. 8. Atrial fibrillation, rate controlled. 9. History of alcohol abuse. 10. Thrombocytopenia secondary to alcohol abuse. 11. sepsis due to UTI and bacteremia with Blood cx and urine Cx growing proteus - follow up blood cx negative 12. Moderate pleural effusion s/p Throacentesis 12/31/2016- 2.21 L Fluid removed PLAN: pt had a HD on 12/29 and 12/30- then HD catheter has been discontinued Mcdonald catheter has been discontinued S/p Right thoracentesis 12/31/16- 2.1 fluid removed Blood cx and Urine cx grew proteus - on IV abx - Follow up blood cx on 12/16/16 negative to date no Plan for HD now, pt started on Lasix 20mg pO BID ambulate pt with PT pt needs better work up for back pain and also need evaluation by Spine surgeon for his Severe OA with Spinal stenosis, ID is also concerned about infectino in L spine - currently on IV Abx avoid sedative, hypnotics will continue to follow up Consultation Date/Type/Reason Admit Date/Time December 10, 2016 at 16:57 Type of Consultation: NEPHROLOGY Referring Provider: JACK JENNINGS BLENDING TANK TENDER 24 HR Interval Summary Free Text/Dictation pt HD catheter and mcdonald catheter has been discontinued, Bp stable, S/p thoracentesis 2.21 liter fluid aspirated Exam/Review of Systems Vital Signs Vitals Vital Signs Date Time Temp Pulse Resp B/P Pulse Ox O2 Delivery O2 Flow Rate FiO2 12/31/16 16:07 77 12/31/16 16:01 98.3 18 165/85 91 12/31/16 08:00 Nasal Cannula 2.0 Intake and Output 12/30/16 12/30/16 12/31/16 15:00 23:00 07:00 Intake Total 300 ml 100 ml 120 ml Output Total 2300 ml 890 ml 350 ml Balance -2000 ml -790 ml -230 ml Results Result Diagram: 12/31/16 0645 12/31/16 0645 Results 24 hrs Laboratory Tests Test 12/30/16 17:06 12/30/16 21:18 12/31/16 01:25 12/31/16 05:52 Bedside Glucose 93 99 108 92 Test 12/31/16 06:45 12/31/16 08:28 12/31/16 12:09 White Blood Count 8.4 Red Blood Count 2.73 L Hemoglobin 8.3 L Hematocrit 26.0 L Mean Corpuscular Volume 95.2 Mean Corpuscular Hemoglobin 30.4 Mean Corpuscular Hemoglobin Concent 31.9 L Red Cell Distribution Width 14.9 H Platelet Count 314 Mean Platelet Volume 10.1 Neutrophils % 76.0 Lymphocytes % 10.9 L Monocytes % 9.2 Eosinophils % 2.4 Basophils % 0.7 Nucleated Red Blood Cells % 0.0 Neutrophils # 6.4 Lymphocytes # 0.9 Monocytes # 0.8 Eosinophils # 0.2 Basophils # 0.1 Nucleated Red Blood Cells # 0.0 Sodium Level 147 H Potassium Level 4.8 Chloride Level 113 H Carbon Dioxide Level 28 Anion Gap 11 Blood Urea Nitrogen 38 H Creatinine 5.12 H Glucose Level 86 Calcium Level 10.0 Phosphorus Level 4.3 Albumin 2.9 L Bedside Glucose 94 97 Medications Medications Current Medications Ondansetron HCl (Zofran Inj) 4 mg Q6H PRN IV NAUSEA AND/OR VOMITING Last administered on 12/24/16 12:08; Admin Dose 4 MG; Start 12/10/16 at 18:00 Magnesium Hydroxide (Milk Of Mag) 30 ml DAILY PRN PO CONSTIPATION Last administered on 12/29/16 08:56; Admin Dose 30 ML; Start 12/10/16 at 18:00 Bisacodyl (Dulcolax) 5 mg DAILY PRN PO CONSTIPATION; Start 12/10/16 at 18:00 Famotidine (Pepcid) 20 mg DAILY PO Last administered on 12/31/16 12:11; Admin Dose 20 MG; Start 12/11/16 at 09:00 Hydralazine HCl (Apresoline) 10 mg Q6H PRN IV SBP>160 Last administered on 12/30 15:48; Admin Dose 10 MG; Start 12/10/16 at 18:00 Atorvastatin Calcium (Lipitor) 10 mg DAILY@21 PO Last administered on 21:19; Admin Dose 10 MG; Start 12/10/16 at 21:00 Heparin Sodium (Porcine) 5000 unit 5,000 unit BID SC Last administered on 12:13; Admin Dose 5,000 UNIT; Start 12/11/16 at 21:00 Diltiazem HCl (Cardizem-D5W 125 Mg/125 ml Drip) 125 ml @ 5 mls/hr TITRATE IV ; Start 12/16/16 at 22:45 Megestrol Acetate (Megace Susp) 400 mg BID PO Last administered on 12/31/16 12 :11; Admin Dose 400 MG; Start 12/17/16 at 13:00 Metoprolol Tartrate (Lopressor) 50 mg BID PO Last administered on 12/31/16 12: 10; Admin Dose 50 MG; Start 12/17/16 at 21:00 Polyethylene Glycol (Miralax) 17 gm BID PO Last administered on 12/31/16 12:10 ; Admin Dose 17 GM; Start 12/21/16 at 21:00 Insulin Aspart (Novolog Insulin Pen) NOVOLOG *MILD* ALGORI... Q4 SC ; Start at 21:00 Miscellaneous Information 1 ea NOTE XX ; Start 12/21/16 at 17:30 Glucose (Glutose) 15 gm Q15M PRN PO DECREASED GLUCOSE; Start 12/21/16 at 17:30 Glucose (Glutose) 22.5 gm Q15M PRN PO DECREASED GLUCOSE; Start 12/21/16 at 17: 30 Dextrose (D50w Syringe) 25 ml Q15M PRN IV DECREASED GLUCOSE; Start 12/21/16 at 17:30 Dextrose (D50w Syringe) 50 ml Q15M PRN IV DECREASED GLUCOSE; Start 12/21/16 at 17:30 Glucagon (Glucagen) 1 mg Q15M PRN IM DECREASED GLUCOSE; Start 12/21/16 at 17:30 Glucose (Glutose) 15 gm Q15M PRN BUCCAL DECREASED GLUCOSE; Start 12/21/16 at 17 :30 Oxycodone HCl (Roxicodone) 10 mg Q6H PRN PO PAIN LEVEL 7-10 Last administered on 12/30/16 15:40; Admin Dose 10 MG; Start 12/25/16 at 13:00 Amlodipine Besylate (Norvasc) 5 mg BID PO Last administered on 12/31/16 12:11 ; Admin Dose 5 MG; Start 12/27/16 at 21:00 Chlordiazepoxide (Librium) 25 mg DAILY PO Last administered on 12/31/16 12:10 ; Admin Dose 25 MG; Start 12/30/16 at 09:00; Stop 01/01/17 at 08:59 Amiodarone HCl (Cordarone) 200 mg DAILY PO Last administered on 12/31/16 12:11 ; Admin Dose 200 MG; Start 12/31/16 at 09:00 MADELYN MIRANDA MD December 31, 2016 17:07
--- NOTE | 2016-12-31 17:17 | CONS ---
Date/Time of Note Date/Time of Note DATE: 12/31/16 TIME: 17:05 Assessment/Plan Assessment/Plan Additional Assessment/Plan Dysphagia Failure to thrive Acute kidney injury Hypertension Gout Atrial fibrillation Plan: Nutrition consult in process for tube feed Speech therapy following Further recommendations depend on clinical course Patient seen in collaboration with Dr. Gonzalez Consultation Date/Type/Reason Admit Date/Time December 10, 2016 at 16:57 Initial Consult Date 12/26/16 Type of Consultation: GI Referring Provider: JACK JENNINGS RELATIONSHIP SPECIALIST 24 HR Interval Summary Free Text/Dictation Patient tolerating thickened diet but patient needs full assist Nutrition consult to determine if patient obtaining full caloric needs Speech therapy following Exam/Review of Systems Vital Signs Vitals Vital Signs Date Time Temp Pulse Resp B/P Pulse Ox O2 Delivery O2 Flow Rate FiO2 12/31/16 16:07 77 12/31/16 16:01 98.3 18 165/85 91 12/31/16 08:00 Nasal Cannula 2.0 Intake and Output 12/30/16 12/30/16 12/31/16 15:00 23:00 07:00 Intake Total 300 ml 100 ml 120 ml Output Total 2300 ml 890 ml 350 ml Balance -2000 ml -790 ml -230 ml Exam Constitutional: alert, frail Neck: non-tender, supple Respiratory: clear to auscultation, diminished breath sounds, normal air movement Cardiovascular: nl pulses, regular rate and rhythm Gastrointestinal: non-tender, soft Musculoskeletal: nl extremities to inspection, nl gait and stance Extremities: normal pulses Results Result Diagram: 12/31/16 0645 12/31/16 0645 Results 24 hrs Laboratory Tests Test 12/30/16 17:06 12/30/16 21:18 12/31/16 01:25 12/31/16 05:52 Bedside Glucose 93 99 108 92 Test 12/31/16 06:45 12/31/16 08:28 12/31/16 12:09 White Blood Count 8.4 Red Blood Count 2.73 L Hemoglobin 8.3 L Hematocrit 26.0 L Mean Corpuscular Volume 95.2 Mean Corpuscular Hemoglobin 30.4 Mean Corpuscular Hemoglobin Concent 31.9 L Red Cell Distribution Width 14.9 H Platelet Count 314 Mean Platelet Volume 10.1 Neutrophils % 76.0 Lymphocytes % 10.9 L Monocytes % 9.2 Eosinophils % 2.4 Basophils % 0.7 Nucleated Red Blood Cells % 0.0 Neutrophils # 6.4 Lymphocytes # 0.9 Monocytes # 0.8 Eosinophils # 0.2 Basophils # 0.1 Nucleated Red Blood Cells # 0.0 Sodium Level 147 H Potassium Level 4.8 Chloride Level 113 H Carbon Dioxide Level 28 Anion Gap 11 Blood Urea Nitrogen 38 H Creatinine 5.12 H Glucose Level 86 Calcium Level 10.0 Phosphorus Level 4.3 Albumin 2.9 L Bedside Glucose 94 97 Medications Medications Current Medications Ondansetron HCl (Zofran Inj) 4 mg Q6H PRN IV NAUSEA AND/OR VOMITING Last administered on 12/24/16 12:08; Admin Dose 4 MG; Start 12/10/16 at 18:00 Magnesium Hydroxide (Milk Of Mag) 30 ml DAILY PRN PO CONSTIPATION Last administered on 12/29/16 08:56; Admin Dose 30 ML; Start 12/10/16 at 18:00 Bisacodyl (Dulcolax) 5 mg DAILY PRN PO CONSTIPATION; Start 12/10/16 at 18:00 Famotidine (Pepcid) 20 mg DAILY PO Last administered on 12/31/16 12:11; Admin Dose 20 MG; Start 12/11/16 at 09:00 Hydralazine HCl (Apresoline) 10 mg Q6H PRN IV SBP>160 Last administered on 12/30 15:48; Admin Dose 10 MG; Start 12/10/16 at 18:00 Atorvastatin Calcium (Lipitor) 10 mg DAILY@21 PO Last administered on 21:19; Admin Dose 10 MG; Start 12/10/16 at 21:00 Heparin Sodium (Porcine) 5000 unit 5,000 unit BID SC Last administered on 12:13; Admin Dose 5,000 UNIT; Start 12/11/16 at 21:00 Diltiazem HCl (Cardizem-D5W 125 Mg/125 ml Drip) 125 ml @ 5 mls/hr TITRATE IV ; Start 12/16/16 at 22:45 Megestrol Acetate (Megace Susp) 400 mg BID PO Last administered on 12/31/16 12 :11; Admin Dose 400 MG; Start 12/17/16 at 13:00 Metoprolol Tartrate (Lopressor) 50 mg BID PO Last administered on 12/31/16 12: 10; Admin Dose 50 MG; Start 12/17/16 at 21:00 Polyethylene Glycol (Miralax) 17 gm BID PO Last administered on 12/31/16 12:10 ; Admin Dose 17 GM; Start 12/21/16 at 21:00 Insulin Aspart (Novolog Insulin Pen) NOVOLOG *MILD* ALGORI... Q4 SC ; Start at 21:00 Miscellaneous Information 1 ea NOTE XX ; Start 12/21/16 at 17:30 Glucose (Glutose) 15 gm Q15M PRN PO DECREASED GLUCOSE; Start 12/21/16 at 17:30 Glucose (Glutose) 22.5 gm Q15M PRN PO DECREASED GLUCOSE; Start 12/21/16 at 17: 30 Dextrose (D50w Syringe) 25 ml Q15M PRN IV DECREASED GLUCOSE; Start 12/21/16 at 17:30 Dextrose (D50w Syringe) 50 ml Q15M PRN IV DECREASED GLUCOSE; Start 12/21/16 at 17:30 Glucagon (Glucagen) 1 mg Q15M PRN IM DECREASED GLUCOSE; Start 12/21/16 at 17:30 Glucose (Glutose) 15 gm Q15M PRN BUCCAL DECREASED GLUCOSE; Start 12/21/16 at 17 :30 Oxycodone HCl (Roxicodone) 10 mg Q6H PRN PO PAIN LEVEL 7-10 Last administered on 12/30/16 15:40; Admin Dose 10 MG; Start 12/25/16 at 13:00 Amlodipine Besylate (Norvasc) 5 mg BID PO Last administered on 12/31/16 12:11 ; Admin Dose 5 MG; Start 12/27/16 at 21:00 Chlordiazepoxide (Librium) 25 mg DAILY PO Last administered on 12/31/16 12:10 ; Admin Dose 25 MG; Start 12/30/16 at 09:00; Stop 01/01/17 at 08:59 Amiodarone HCl (Cordarone) 200 mg DAILY PO Last administered on 12/31/16 12:11 ; Admin Dose 200 MG; Start 12/31/16 at 09:00 GLEN NUNEZ December 31, 2016 17:16
[2016-12-31] MEDS: ATORVASTATIN 10 MG TAB PO SCH (22:13)
[2017-01-01] VITALS (13 sets, daily range): BP systolic 143–188; BP diastolic 64–91; PULSE 81–89; RESP 17–18
[2017-01-01] MEDS: INSULIN ASPART [NOVOLOG] 3 ML PEN SC SCH ×3 (01:00→09:00)
[2017-01-01] MEDS: FUROSEMIDE 20 MG TAB PO SCH ×2 (06:02→18:26)
--- NOTE | 2017-01-01 06:21 | PN ---
DATE: 12/31/2016 SUBJECTIVE: The patient does have renal stones both kidneys, staghorn type of the lower pole of bot h kidneys on the MRI of the lumbar spine, and also on the CT scan it did show that he does have a st one in the kidney. The patient himself presently is sleepy and I tried to talk to him and wake him up and he would open his eyes and fall back to sleep. The patient did have an indwelling Mccormack cath eter which was removed and after it was removed the patient was unable to urinate, so a new Mccormack ca theter was put in. OBJECTIVE: VITAL SIGNS: Temperature is 98.4, pulse is 80, respirations 17, blood pressure 127/66. ABDOMEN: Soft. GENITOURINARY: The Mccormack catheter that he has is draining clear urine. LABORATORY DATA: CBC today shows a white count of 8.4, hemoglobin 8.3, hematocrit 26.0. BUN is 38, creatinine 5.12. The creatinine yesterday was 4.74, then the patient has been on hemodialysis. The CT scan of the abdomen and pelvis was reported as right renal edema with mild to moderate right hydroureteronephrosis, but no radiopaque obstructing stone or definite source of obstruction is iden tified, with the distal ureter being partially obscured due to beam hardening artifact from a right hip arthroplasty. This can be further evaluated with multiphase CT urogram. The patient does have staghorn calculi at the lower poles of both kidneys. No left-sided hydronephrosis. Moderate right and small to moderate left pleural effusions with associated dependent compressive atelectasis. The patient does have high-density material in the gallbladder, possibly related to vicarious excretion of intravenous contrast or or sludge. Vascular calcification consistent with atherosclerosis . Irregular erosive changes involving the endplates bordering the T11 to T12 intervertebral disk spa ce, greater than expected for degenerative spondylosis with abnormal prevertebral soft tissue densit y at this level, suspicious for underlying diskitis, osteomyelitis. Further evaluation with MRI of the thoracolumbar spine is recommended. Presacral and dependent body edema. The patient did indeed have a lumbar CT scan, lumbar spine MRI and thoracic spine MRI before. IMPRESSION: From a urological standpoint, the patient does have a history of prostate cancer, statu s post radical prostatectomy. He does have a history of gout, bilateral renal staghorn calculi, rig ht ureteral dilatation, the cause of it is unclear. The patient could well have a distal right uret eral stone where there is artifact from the total right hip. We shall observe that and see if it st ays the same. Then, we could always do a cystoscopy and retrograde pyelogram. The patient has man y other problems at the present and still has a high creatinine and is on hemodialysis. Dictated By: LAUREN GIL/RIKA Conf#: [id number] DID#: [id number]
[2017-01-01 07:45] LABS: ADD SCAN DIFF NO
[2017-01-01 07:52] LABS: BASOPHIL # 0.1 10^3/ul (0.0-0.1); BASOPHILS % 0.6 % (0.0-2.0); EOSINOPHILS # 0.1 10^3/ul (0.0-0.5); EOSINOPHILS % 1.5 % (0.0-7.0); HEMATOCRIT 26.9 % (42.0-52.0); HEMOGLOBIN 8.4 g/dl (14.0-18.0); LYMPHOCYTES # 1.1 10^3/ul (0.8-2.9); LYMPHOCYTES % 11.7 % (15.0-51.0); MEAN CORPUSCULAR HEMOGLOBIN 30.2 pg (29.0-33.0); MEAN CORPUSCULAR HGB CONC 31.2 g/dl (32.0-37.0); MEAN CORPUSCULAR VOLUME 96.8 fl (82.0-101.0); MEAN PLATELET VOLUME 10.5 fl (7.4-10.4); MONOCYTE # 0.6 10^3/ul (0.3-0.9); MONOCYTES % 6.7 % (0.0-11.0); NEUTROPHIL # 7.3 10^3/ul (1.6-7.5); NEUTROPHILS % 78.4 % (39.0-77.0); PLATELET COUNT 375 10^3/UL (140-415); RED BLOOD COUNT 2.78 10^6/ul (4.70-6.10); RED CELL DISTRIBUTION WIDTH 14.6 % (11.5-14.5); WHITE BLOOD COUNT 9.3 10^3/ul (4.8-10.8)
[2017-01-01 08:10] LABS: POTASSIUM 5.3 mmol/L (3.5-5.1)
[2017-01-01 08:12] LABS: CREATININE 6.11 mg/dl (0.61-1.24)
[2017-01-01 08:13] LABS: PHOSPHORUS 4.3 mg/dl (2.5-4.9)
[2017-01-01 08:14] LABS: CALCIUM 10.6 mg/dl (8.4-10.2)
[2017-01-01] MEDS: HEPARIN 5,000 UNIT/0.5 ML VIAL SC SCH ×2 (08:59→21:00)
[2017-01-01] MEDS: POLYETHYLENE GLYCOL 17 GM PACKET PO SCH ×2 (09:00→21:00)
[2017-01-01] MEDS: METOPROLOL 50 MG TAB PO SCH ×2 (09:00→21:00)
[2017-01-01] MEDS: MEGESTROL (40 MG/ML) 10ML CUP PO SCH ×2 (09:00→21:00)
[2017-01-01] MEDS: AMIODARONE 200 MG TAB PO SCH (09:13)
[2017-01-01] MEDS: FAMOTIDINE 20 MG TAB PO SCH (09:16)
[2017-01-01] MEDS: AMLODIPINE 5 MG TAB PO SCH ×2 (09:16→21:00)
--- NOTE | 2017-01-01 11:46 | PN ---
DATE: 01/01/2017 SUBJECTIVE: The patient states that he is having back pain and shoulder pain. He does have an indw elling Mccormack catheter. It appears that after the catheter was removed, he was not able to urinate; therefore, a catheter was put back in. The patient does have a history of prostate cancer. He is s tatus post radical prostatectomy, so I do not think it is a matter of obstruction. The patient also was found to have bilateral staghorn calculi lower pole of both kidneys. He does have right ureter al dilatation without a stone obstructing. OBJECTIVE: VITAL SIGNS: His temperature is 98.1, pulse is 81, respirations 18, blood pressure 169/77 GENERAL: The patient is somehow lethargic, most of the time he is sleeping. He did have a thoracentesis on the right side yesterday and drained 2.2 liters. LABORATORY DATA: His CBC shows a white count of 9.3, hemoglobin 8.4, hematocrit 26.9. BUN is 42, c reatinine 6.11. The patient has been on hemodialysis. ASSESSMENT AND PLAN: From a urological standpoint, he does have the bilateral renal stones, so we j ust observe him for these as they are not causing any obstruction. On the right side, the ureter is dilated and a possibility of distal ureteral stone always exist since the distal ureter on the righ t side was not well seen because of shadowing from the right total hip metal that he has. If this b ecomes an issue, then I could always do a cystoscopy and retrograde pyelogram and see if there is a ny obstruction there. However, for now since he is on hemodialysis, we will just wait. If in the w orse condition the right kidney is obstructed, his left kidney should be working well, but it appear s that both kidneys are not working, and he is getting dialysis because both kidneys are not working and failing. Dictated By: LAUREN GIL/RIKA Conf#: [id number] DID#: [id number]
--- NOTE | 2017-01-01 13:03 | PN ---
Date/Time of Note Date/Time of Note DATE: 01/01/17 TIME: 13:00 Assessment/Plan VTE Prophylaxis VTE Prophylaxis Intervention: SCD's Lines/Catheters IV [facility]ter Type (from [email or web address] Saline Lock Central line still needed: Yes Urinary Cath still in place: Yes Reason Cath still needed: urinary retention Assessment/Plan Chief Complaint/Hosp Course Problems: Assessment/Plan Dysphagia Failure to thrive Acute kidney injury Hypertension Gout Atrial fibrillation Plan: Nutrition consult in process for tube feed Speech therapy following follow up Barium swallow evaluation with speech theraphy Subjective 24 Hr Interval Summary Free Text/Dictation * Course reviewed with RN * Patient seen and examined * Patient refusing medications and meals Exam/Review of Systems Vital Signs Vitals Vital Signs Date Time Temp Pulse Resp B/P Pulse Ox O2 Delivery O2 Flow Rate FiO2 01/01/17 12:08 82 01/01/17 11:32 97.8 18 153/81 91 01/01/17 08:00 Nasal Cannula 2.0 Intake and Output 12/31/16 12/31/16 01/01/17 15:00 23:00 07:00 Intake Total 500 ml 120 ml Output Total 300 ml 1200 ml Balance 200 ml -1080 ml Exam Constitutional: alert, frail Neck: non-tender, supple Respiratory: clear to auscultation, normal air movement Cardiovascular: nl pulses, regular rate and rhythm Gastrointestinal: nl liver, spleen, non-tender, soft Musculoskeletal: nl extremities to inspection Extremities: normal pulses Results Result Diagram: 01/01/1762001/01/17 0621 Results 24 hrs Laboratory Tests Test 12/31/16 17:15 12/31/16 22:12 01/01/17 01:22 01/01/17 05:57 Bedside Glucose 102 108 85 104 Test 01/01/17 06:21 01/01/17 08:57 White Blood Count 9.3 Red Blood Count 2.78 L Hemoglobin 8.4 L Hematocrit 26.9 L Mean Corpuscular Volume 96.8 Mean Corpuscular Hemoglobin 30.2 Mean Corpuscular Hemoglobin Concent 31.2 L Red Cell Distribution Width 14.6 H Platelet Count 375 Mean Platelet Volume 10.5 H Neutrophils % 78.4 H Lymphocytes % 11.7 L Monocytes % 6.7 Eosinophils % 1.5 Basophils % 0.6 Nucleated Red Blood Cells % 0.0 Neutrophils # 7.3 Lymphocytes # 1.1 Monocytes # 0.6 Eosinophils # 0.1 Basophils # 0.1 Nucleated Red Blood Cells # 0.0 Sodium Level 152 H Potassium Level 5.3 H Chloride Level 114 H Carbon Dioxide Level 26 Anion Gap 17 H Blood Urea Nitrogen 42 H Creatinine 6.11 H Glucose Level 87 Calcium Level 10.6 H Phosphorus Level 4.3 Albumin 3.0 L Bedside Glucose 85 Medications Medications Current Medications Ondansetron HCl (Zofran Inj) 4 mg Q6H PRN IV NAUSEA AND/OR VOMITING Last administered on 12/24/16 12:08; Admin Dose 4 MG; Start 12/10/16 at 18:00 Magnesium Hydroxide (Milk Of Mag) 30 ml DAILY PRN PO CONSTIPATION Last administered on 12/29/16 08:56; Admin Dose 30 ML; Start 12/10/16 at 18:00 Bisacodyl (Dulcolax) 5 mg DAILY PRN PO CONSTIPATION; Start 12/10/16 at 18:00 Famotidine (Pepcid) 20 mg DAILY PO Last administered on 01/01/17 09:16; Admin Dose 20 MG; Start 12/11/16 at 09:00 Hydralazine HCl (Apresoline) 10 mg Q6H PRN IV SBP>160 Last administered on 12/30 15:48; Admin Dose 10 MG; Start 12/10/16 at 18:00 Atorvastatin Calcium (Lipitor) 10 mg DAILY@21 PO Last administered on 22:13; Admin Dose 10 MG; Start 12/10/16 at 21:00 Heparin Sodium (Porcine) 5000 unit 5,000 unit BID SC Last administered on 08:59; Admin Dose 5,000 UNIT; Start 12/11/16 at 21:00 Diltiazem HCl (Cardizem-D5W 125 Mg/125 ml Drip) 125 ml @ 5 mls/hr TITRATE IV ; Start 12/16/16 at 22:45 Megestrol Acetate (Megace Susp) 400 mg BID PO Last administered on 12/31/16 22 :13; Admin Dose 400 MG; Start 12/17/16 at 13:00 Metoprolol Tartrate (Lopressor) 50 mg BID PO Last administered on 12/31/16 22: 14; Admin Dose 50 MG; Start 12/17/16 at 21:00 Polyethylene Glycol (Miralax) 17 gm BID PO Last administered on 12/31/16 22:13 ; Admin Dose 17 GM; Start 12/21/16 at 21:00 Miscellaneous Information 1 ea NOTE XX ; Start 12/21/16 at 17:30 Glucose (Glutose) 15 gm Q15M PRN PO DECREASED GLUCOSE; Start 12/21/16 at 17:30 Glucose (Glutose) 22.5 gm Q15M PRN PO DECREASED GLUCOSE; Start 12/21/16 at 17: 30 Dextrose (D50w Syringe) 25 ml Q15M PRN IV DECREASED GLUCOSE; Start 12/21/16 at 17:30 Dextrose (D50w Syringe) 50 ml Q15M PRN IV DECREASED GLUCOSE; Start 12/21/16 at 17:30 Glucagon (Glucagen) 1 mg Q15M PRN IM DECREASED GLUCOSE; Start 12/21/16 at 17:30 Glucose (Glutose) 15 gm Q15M PRN BUCCAL DECREASED GLUCOSE; Start 12/21/16 at 17 :30 Oxycodone HCl (Roxicodone) 10 mg Q6H PRN PO PAIN LEVEL 7-10 Last administered on 12/30/16 15:40; Admin Dose 10 MG; Start 12/25/16 at 13:00 Amlodipine Besylate (Norvasc) 5 mg BID PO Last administered on 01/01/17 09:16 ; Admin Dose 5 MG; Start 12/27/16 at 21:00 Amiodarone HCl (Cordarone) 200 mg DAILY PO Last administered on 01/01/17 09:13 ; Admin Dose 200 MG; Start 12/31/16 at 09:00 TYLER ARZATE MD January 01, 2017 13:03
--- NOTE | 2017-01-01 13:25 | PN ---
DATE: 01/01/2017 PAIN MANAGEMENT FOLLOWUP NOTE Since last I have seen this gentleman, he is still globally encephalopathic; however, he seems to be when I stimulate him, appropriate. With the nurse present, we have repositioned him and he is stil l having generalized total body pain, which I believe is probably secondary to his underlying renal dysfunction. On examination, he is oriented x2 with assistance. Cranial nerves II through XII are grossly intact. There is no gross motor or sensory loss. Insofar as pain control, he is just on O xyContin at this time, which I believe would be safe for this gentleman. It is metabolized in part to the kidneys and seems to be safe in renal disease, as are methadone and fentanyl. I would defini dio stay away from any compounds that have hydrocodone in, including Vicodin and Deshler and ruthi brandi away from any benzodiazepines also. It is difficult to assess his pain control at this time veronica use he is somewhat encephalopathic. He waxes and wanes during my examination, so I cannot evaluate adequately what percentage of his pain is under good control. Certainly his physical functioning is worse since the last time I have seen him. His mood seems to be the same, sleeping patterns to be determined, overall function is very poor. There is no documentation of nausea, vomiting, constipat ion, no evidence in the past of excess drug use, although it was known that he was drinking heavily before he presented to the hospital. ASSESSMENT AND PLAN: I would suggest continuing with the current pain control medications. I belie ve this is secondary to underlying renal insufficiency and this should clear. Generalized pain carlyle jacquelin with movement somewhat alleviated with his current pain control medications. Rating is uncle ar at this time, but objectively and subjectively, he looks to be under better pain management. T here is no indication at this time that we need to pursue changing his current pain control medicati ons. Dictated By: BUCKY RYAN MD, LP/RIKA Conf#: [id number] DID#: [id number]
--- NOTE | 2017-01-01 13:57 | PN ---
Date/Time of Note Date/Time of Note DATE: 01/01/17 TIME: 13:56 Assessment/Plan VTE Prophylaxis VTE Prophylaxis Intervention: heparin Lines/Catheters IV [facility] Type (from [facility]): Saline Lock Assessment/Plan Chief Complaint/Hosp Course 1. S/p sepsis 2. S/p Proteus mirabilis urinary tract infection with bacteremia. 3. Acute kidney failure on HD 4. S/p HCAP, poss aspiration. 5. Hypertension. 6. Paroxysmal Atrial fibrillation. 7. History of alcohol abuse. 8. Status post fall 9. Chronic Gout. 10. Stag horn calculus likely from uric acid 11. Chronic compression fractures with spinal stenosis 2/2 DJD of spine 12. Dysphagia. Continue aspiration precautions. Diet as per speech therapy. 13. Metabolic encephalopathy likely secondary to delirium- CT brain negative for any acute findings. Plan: * Continue supportive care and PT * Case mgt is working on placement * Urology is working up patient's calculi * Orthopedics consult for evaluation of spinal stenosis * Nephrology to remove defective IJ dialysis access at this time and keep patient of dialysis and see how he does. DVT prophylaxis. Subcutaneous heparin. Gastrointestinal prophylaxis. Histamine 2 receptor blockers. Problems: Subjective 24 Hr Interval Summary Constitutional: disoriented Exam/Review of Systems Vital Signs Vitals Vital Signs Date Time Temp Pulse Resp B/P Pulse Ox O2 Delivery O2 Flow Rate FiO2 01/01/17 12:08 82 01/01/17 11:32 97.8 18 153/81 91 01/01/17 08:00 Nasal Cannula 2.0 Intake and Output 12/31/16 12/31/16 01/01/17 15:00 23:00 07:00 Intake Total 500 ml 120 ml Output Total 300 ml 1200 ml Balance 200 ml -1080 ml Exam Psych: confusion Respiratory: clear to auscultation Cardiovascular: regular rate and rhythm Gastrointestinal: soft, No distended Musculoskeletal: nl extremities to inspection Results Result Diagram: 01/01/17 0621 01/01/17 0621 Results 24 hrs Laboratory Tests Test 12/31/16 17:15 12/31/16 22:12 01/01/17 01:22 01/01/17 05:57 Bedside Glucose 102 108 85 104 Test 01/01/17 06:21 01/01/17 08:57 White Blood Count 9.3 Red Blood Count 2.78 L Hemoglobin 8.4 L Hematocrit 26.9 L Mean Corpuscular Volume 96.8 Mean Corpuscular Hemoglobin 30.2 Mean Corpuscular Hemoglobin Concent 31.2 L Red Cell Distribution Width 14.6 H Platelet Count 375 Mean Platelet Volume 10.5 H Neutrophils % 78.4 H Lymphocytes % 11.7 L Monocytes % 6.7 Eosinophils % 1.5 Basophils % 0.6 Nucleated Red Blood Cells % 0.0 Neutrophils # 7.3 Lymphocytes # 1.1 Monocytes # 0.6 Eosinophils # 0.1 Basophils # 0.1 Nucleated Red Blood Cells # 0.0 Sodium Level 152 H Potassium Level 5.3 H Chloride Level 114 H Carbon Dioxide Level 26 Anion Gap 17 H Blood Urea Nitrogen 42 H Creatinine 6.11 H Glucose Level 87 Calcium Level 10.6 H Phosphorus Level 4.3 Albumin 3.0 L Bedside Glucose 85 Medications Medications Current Medications Ondansetron HCl (Zofran Inj) 4 mg Q6H PRN IV NAUSEA AND/OR VOMITING Last administered on 12/24/16 12:08; Admin Dose 4 MG; Start 12/10/16 at 18:00 Magnesium Hydroxide (Milk Of Mag) 30 ml DAILY PRN PO CONSTIPATION Last administered on 12/29/16 08:56; Admin Dose 30 ML; Start 12/10/16 at 18:00 Bisacodyl (Dulcolax) 5 mg DAILY PRN PO CONSTIPATION; Start 12/10/16 at 18:00 Famotidine (Pepcid) 20 mg DAILY PO Last administered on 01/01/17 09:16; Admin Dose 20 MG; Start 12/11/16 at 09:00 Hydralazine HCl (Apresoline) 10 mg Q6H PRN IV SBP>160 Last administered on 12/30 15:48; Admin Dose 10 MG; Start 12/10/16 at 18:00 Atorvastatin Calcium (Lipitor) 10 mg DAILY@21 PO Last administered on 22:13; Admin Dose 10 MG; Start 12/10/16 at 21:00 Heparin Sodium (Porcine) 5000 unit 5,000 unit BID SC Last administered on 08:59; Admin Dose 5,000 UNIT; Start 12/11/16 at 21:00 Diltiazem HCl (Cardizem-D5W 125 Mg/125 ml Drip) 125 ml @ 5 mls/hr TITRATE IV ; Start 12/16/16 at 22:45 Megestrol Acetate (Megace Susp) 400 mg BID PO Last administered on 12/31/16 22 :13; Admin Dose 400 MG; Start 12/17/16 at 13:00 Metoprolol Tartrate (Lopressor) 50 mg BID PO Last administered on 12/31/16 22: 14; Admin Dose 50 MG; Start 12/17/16 at 21:00 Polyethylene Glycol (Miralax) 17 gm BID PO Last administered on 12/31/16 22:13 ; Admin Dose 17 GM; Start 12/21/16 at 21:00 Miscellaneous Information 1 ea NOTE XX ; Start 12/21/16 at 17:30 Glucose (Glutose) 15 gm Q15M PRN PO DECREASED GLUCOSE; Start 12/21/16 at 17:30 Glucose (Glutose) 22.5 gm Q15M PRN PO DECREASED GLUCOSE; Start 12/21/16 at 17: 30 Dextrose (D50w Syringe) 25 ml Q15M PRN IV DECREASED GLUCOSE; Start 12/21/16 at 17:30 Dextrose (D50w Syringe) 50 ml Q15M PRN IV DECREASED GLUCOSE; Start 12/21/16 at 17:30 Glucagon (Glucagen) 1 mg Q15M PRN IM DECREASED GLUCOSE; Start 12/21/16 at 17:30 Glucose (Glutose) 15 gm Q15M PRN BUCCAL DECREASED GLUCOSE; Start 12/21/16 at 17 :30 Oxycodone HCl (Roxicodone) 10 mg Q6H PRN PO PAIN LEVEL 7-10 Last administered on 12/30/16 15:40; Admin Dose 10 MG; Start 12/25/16 at 13:00 Amlodipine Besylate (Norvasc) 5 mg BID PO Last administered on 01/01/17 09:16 ; Admin Dose 5 MG; Start 12/27/16 at 21:00 Amiodarone HCl (Cordarone) 200 mg DAILY PO Last administered on 01/01/17 09:13 ; Admin Dose 200 MG; Start 12/31/16 at 09:00 HALEY MAN January 01, 2017 13:57
[2017-01-01] MEDS: hydrALAzine 20 MG INJ IV PRN (18:26)
--- NOTE | 2017-01-01 19:51 | CONS ---
Date/Time of Note Date/Time of Note DATE: 01/01/17 TIME: 19:44 Assessment/Plan Assessment/Plan Chief Complaint/Hosp Course ID PROGRESS NOTE ABX DAY # OFF ABX Merrem s/p Zyvox 24H INTERVAL SUMMARY * Awake, alert, responsive, confused, no fevers, NAD, pulls at lines, tubes and attempts to get OOB -> requires soft wrist restraints PHYSICAL EXAMINATION: GENERAL: VSS, NAD, no fever HEENT: Unremarkable NECK: Trach-> midline CHEST: Equal chest rise bilaterally, without dyspnea on observation HEART: Pulse RRR ABDOMEN: Soft EXTREMITIES: Warm, SKIN: Warm, dry ID ASSESSMENT: 71 yo M w/ admitted with: 1. Sepsis w/ bacteremia on admission => Sepsis resolved 2. Proteus mirabilis urinary tract infection with bacteremia => RESOLVED 3. Acute kidney failure, possible chronic kidney disease. 4. Bilateral kidney stones, urology on the case = non-obstructive 5. HCAP, poss aspiration => TREATED w/ full course ABX 6. Atrial fibrillation. 7. Hypertension. 8. Chronic back pain with a CT of the abdomen and pelvis concerning for diskitis at T11/12 border and osteomyelitis. * MRI of thoracic spine on December 18 revealed degeneration versus infection over the posterior disk bulge; however, the examination was limited at that time because motion artifact and the patient's inability to cooperate 9. Acute on chronic kidney disease. 10. Encephalopathy=> Improved; however patient is confused 11, History of alcohol abuse ?dementia? ABX ALLERGIES: PCN, ADHESIVE, LATEX CURRENT ABX: # OFF ABX Merrem s/p Zyvox ID RECOMMENDATIONS: 1. Continue to observe the patient OFF ABX 2. ASP Precautions . Problems: Consultation Date/Type/Reason Admit Date/Time December 10, 2016 at 16:57 Type of Consultation: ID Referring Provider: JACK JENNINGS DIGITAL MEDIA ANALYST Exam/Review of Systems Vital Signs Vitals Vital Signs Date Time Temp Pulse Resp B/P Pulse Ox O2 Delivery O2 Flow Rate FiO2 01/01/17 18:43 153/64 01/01/17 16:11 82 01/01/17 16:06 97.3 18 94 01/01/17 08:00 Nasal Cannula 2.0 Intake and Output 12/31/16 12/31/16 01/01/17 15:00 23:00 07:00 Intake Total 500 ml 120 ml Output Total 300 ml 1200 ml Balance 200 ml -1080 ml Results Result Diagram: 01/01/17 0621 01/01/17 0621 Results 24 hrs Laboratory Tests Test 12/31/16 22:12 01/01/17 01:22 01/01/17 05:57 01/01/17 06:21 Bedside Glucose 108 85 104 White Blood Count 9.3 Red Blood Count 2.78 L Hemoglobin 8.4 L Hematocrit 26.9 L Mean Corpuscular Volume 96.8 Mean Corpuscular Hemoglobin 30.2 Mean Corpuscular Hemoglobin Concent 31.2 L Red Cell Distribution Width 14.6 H Platelet Count 375 Mean Platelet Volume 10.5 H Neutrophils % 78.4 H Lymphocytes % 11.7 L Monocytes % 6.7 Eosinophils % 1.5 Basophils % 0.6 Nucleated Red Blood Cells % 0.0 Neutrophils # 7.3 Lymphocytes # 1.1 Monocytes # 0.6 Eosinophils # 0.1 Basophils # 0.1 Nucleated Red Blood Cells # 0.0 Sodium Level 152 H Potassium Level 5.3 H Chloride Level 114 H Carbon Dioxide Level 26 Anion Gap 17 H Blood Urea Nitrogen 42 H Creatinine 6.11 H Glucose Level 87 Calcium Level 10.6 H Phosphorus Level 4.3 Albumin 3.0 L Test 01/01/17 08:57 Bedside Glucose 85 Medications Medications Current Medications Ondansetron HCl (Zofran Inj) 4 mg Q6H PRN IV NAUSEA AND/OR VOMITING Last administered on 12/24/16 12:08; Admin Dose 4 MG; Start 12/10/16 at 18:00 Magnesium Hydroxide (Milk Of Mag) 30 ml DAILY PRN PO CONSTIPATION Last administered on 12/29/16 08:56; Admin Dose 30 ML; Start 12/10/16 at 18:00 Bisacodyl (Dulcolax) 5 mg DAILY PRN PO CONSTIPATION; Start 12/10/16 at 18:00 Famotidine (Pepcid) 20 mg DAILY PO Last administered on 01/01/17 09:16; Admin Dose 20 MG; Start 12/11/16 at 09:00 Hydralazine HCl (Apresoline) 10 mg Q6H PRN IV SBP>160 Last administered on 01/01 18:26; Admin Dose 10 MG; Start 12/10/16 at 18:00 Atorvastatin Calcium (Lipitor) 10 mg DAILY@21 PO Last administered on 22:13; Admin Dose 10 MG; Start 12/10/16 at 21:00 Heparin Sodium (Porcine) 5000 unit 5,000 unit BID SC Last administered on 08:59; Admin Dose 5,000 UNIT; Start 12/11/16 at 21:00 Diltiazem HCl (Cardizem-D5W 125 Mg/125 ml Drip) 125 ml @ 5 mls/hr TITRATE IV ; Start 12/16/16 at 22:45 Megestrol Acetate (Megace Susp) 400 mg BID PO Last administered on 12/31/16 22 :13; Admin Dose 400 MG; Start 12/17/16 at 13:00 Metoprolol Tartrate (Lopressor) 50 mg BID PO Last administered on 12/31/16 22: 14; Admin Dose 50 MG; Start 12/17/16 at 21:00 Polyethylene Glycol (Miralax) 17 gm BID PO Last administered on 12/31/16 22:13 ; Admin Dose 17 GM; Start 12/21/16 at 21:00 Miscellaneous Information 1 ea NOTE XX ; Start 12/21/16 at 17:30 Glucose (Glutose) 15 gm Q15M PRN PO DECREASED GLUCOSE; Start 12/21/16 at 17:30 Glucose (Glutose) 22.5 gm Q15M PRN PO DECREASED GLUCOSE; Start 12/21/16 at 17: 30 Dextrose (D50w Syringe) 25 ml Q15M PRN IV DECREASED GLUCOSE; Start 12/21/16 at 17:30 Dextrose (D50w Syringe) 50 ml Q15M PRN IV DECREASED GLUCOSE; Start 12/21/16 at 17:30 Glucagon (Glucagen) 1 mg Q15M PRN IM DECREASED GLUCOSE; Start 12/21/16 at 17:30 Glucose (Glutose) 15 gm Q15M PRN BUCCAL DECREASED GLUCOSE; Start 12/21/16 at 17 :30 Oxycodone HCl (Roxicodone) 10 mg Q6H PRN PO PAIN LEVEL 7-10 Last administered on 12/30/16 15:40; Admin Dose 10 MG; Start 12/25/16 at 13:00 Amlodipine Besylate (Norvasc) 5 mg BID PO Last administered on 01/01/17 09:16 ; Admin Dose 5 MG; Start 12/27/16 at 21:00 Amiodarone HCl (Cordarone) 200 mg DAILY PO Last administered on 01/01/17t 09:13 ; Admin Dose 200 MG; Start 12/31/16 at 09:00 RHONDA PETERSON NP January 01, 2017 19:51
--- NOTE | 2017-01-01 20:16 | CONS ---
Date/Time of Note Date/Time of Note DATE: 01/01/17 TIME: 20:13 Assessment/Plan Assessment/Plan Additional Assessment/Plan 1. Acute kidney injury, multifactorial, not improving despite being on IVF hydration, BUN/Cr persistently high ,.started on HD during this admission - now HD catheter discontinued we are monitoring as needed 2. Hyponatremia - improved 3. Status post fall, which was a mechanical fall, but likely due to the hyponatremia. CT brain is negative. 4. Possible history of chronic kidney disease secondary to hypertensive nephrosclerosis. 5. History of hypertension. 6. History of gout. 7. History of hyperlipidemia. 8. Atrial fibrillation, rate controlled. 9. History of alcohol abuse. 10. Thrombocytopenia secondary to alcohol abuse. 11. sepsis due to UTI and bacteremia with Blood cx and urine Cx growing proteus - follow up blood cx negative 12. Moderate pleural effusion s/p Throacentesis 12/31/2016- 2.21 L Fluid removed PLAN: pt had a HD on 12/29 and 12/30- then HD catheter has been discontinued Mccormack catheter has been discontinued S/p Right thoracentesis 12/31/16- 2.1 fluid removed Blood cx and Urine cx grew proteus - on IV abx - Follow up blood cx on 12/16/16 negative to date no Plan for HD now, pt started on Lasix 20mg pO BID pt needs better work up for back pain and also need evaluation by Spine surgeon for his Severe OA with Spinal stenosis, ID is also concerned about infectino in L spine - currently on IV Abx avoid sedative, hypnotics will continue to follow up Consultation Date/Type/Reason Admit Date/Time December 10, 2016 at 16:57 Type of Consultation: NEPHROLOGY Referring Provider: JACK JENNINGS NP 24 HR Interval Summary Free Text/Dictation pt confused, required restaints, BP stable Exam/Review of Systems Vital Signs Vitals Vital Signs Date Time Temp Pulse Resp B/P Pulse Ox O2 Delivery O2 Flow Rate FiO2 01/01/17 20:02 89 01/01/17 18:43 153/64 01/01/17 16:06 97.3 18 94 01/01/17 08:00 Nasal Cannula 2.0 Intake and Output 12/31/16 12/31/16 01/01/17 15:00 23:00 07:00 Intake Total 500 ml 120 ml Output Total 300 ml 1200 ml Balance 200 ml -1080 ml Results Result Diagram: 01/01/17 0621 01/01/17 0621 Results 24 hrs Laboratory Tests Test 12/31/16 22:12 01/01/17 01:22 01/01/17 05:57 01/01/17 06:21 Bedside Glucose 108 85 104 White Blood Count 9.3 Red Blood Count 2.78 L Hemoglobin 8.4 L Hematocrit 26.9 L Mean Corpuscular Volume 96.8 Mean Corpuscular Hemoglobin 30.2 Mean Corpuscular Hemoglobin Concent 31.2 L Red Cell Distribution Width 14.6 H Platelet Count 375 Mean Platelet Volume 10.5 H Neutrophils % 78.4 H Lymphocytes % 11.7 L Monocytes % 6.7 Eosinophils % 1.5 Basophils % 0.6 Nucleated Red Blood Cells % 0.0 Neutrophils # 7.3 Lymphocytes # 1.1 Monocytes # 0.6 Eosinophils # 0.1 Basophils # 0.1 Nucleated Red Blood Cells # 0.0 Sodium Level 152 H Potassium Level 5.3 H Chloride Level 114 H Carbon Dioxide Level 26 Anion Gap 17 H Blood Urea Nitrogen 42 H Creatinine 6.11 H Glucose Level 87 Calcium Level 10.6 H Phosphorus Level 4.3 Albumin 3.0 L Test 01/01/17 08:57 Bedside Glucose 85 Medications Medications Current Medications Ondansetron HCl (Zofran Inj) 4 mg Q6H PRN IV NAUSEA AND/OR VOMITING Last administered on 12/24/16 12:08; Admin Dose 4 MG; Start 12/10/16 at 18:00 Magnesium Hydroxide (Milk Of Mag) 30 ml DAILY PRN PO CONSTIPATION Last administered on 12/29/16 08:56; Admin Dose 30 ML; Start 12/10/16 at 18:00 Bisacodyl (Dulcolax) 5 mg DAILY PRN PO CONSTIPATION; Start 12/10/16 at 18:00 Famotidine (Pepcid) 20 mg DAILY PO Last administered on 01/01/17 09:16; Admin Dose 20 MG; Start 12/11/16 at 09:00 Hydralazine HCl (Apresoline) 10 mg Q6H PRN IV SBP>160 Last administered on 01/01 18:26; Admin Dose 10 MG; Start 12/10/16 at 18:00 Atorvastatin Calcium (Lipitor) 10 mg DAILY@21 PO Last administered on 22:13; Admin Dose 10 MG; Start 12/10/16 at 21:00 Heparin Sodium (Porcine) 5000 unit 5,000 unit BID SC Last administered on 08:59; Admin Dose 5,000 UNIT; Start 12/11/16 at 21:00 Diltiazem HCl (Cardizem-D5W 125 Mg/125 ml Drip) 125 ml @ 5 mls/hr TITRATE IV ; Start 12/16/16 at 22:45 Megestrol Acetate (Megace Susp) 400 mg BID PO Last administered on 12/31/16 22 :13; Admin Dose 400 MG; Start 12/17/16 at 13:00 Metoprolol Tartrate (Lopressor) 50 mg BID PO Last administered on 12/31/16 22: 14; Admin Dose 50 MG; Start 12/17/16 at 21:00 Polyethylene Glycol (Miralax) 17 gm BID PO Last administered on 12/31/16 22:13 ; Admin Dose 17 GM; Start 12/21/16 at 21:00 Miscellaneous Information 1 ea NOTE XX ; Start 12/21/16 at 17:30 Glucose (Glutose) 15 gm Q15M PRN PO DECREASED GLUCOSE; Start 12/21/16 at 17:30 Glucose (Glutose) 22.5 gm Q15M PRN PO DECREASED GLUCOSE; Start 12/21/16 at 17: 30 Dextrose (D50w Syringe) 25 ml Q15M PRN IV DECREASED GLUCOSE; Start 12/21/16 at 17:30 Dextrose (D50w Syringe) 50 ml Q15M PRN IV DECREASED GLUCOSE; Start 12/21/16 at 17:30 Glucagon (Glucagen) 1 mg Q15M PRN IM DECREASED GLUCOSE; Start 12/21/16 at 17:30 Glucose (Glutose) 15 gm Q15M PRN BUCCAL DECREASED GLUCOSE; Start 12/21/16 at 17 :30 Oxycodone HCl (Roxicodone) 10 mg Q6H PRN PO PAIN LEVEL 7-10 Last administered on 12/30/16 15:40; Admin Dose 10 MG; Start 12/25/16 at 13:00 Amlodipine Besylate (Norvasc) 5 mg BID PO Last administered on 01/01/17 09:16 ; Admin Dose 5 MG; Start 12/27/16 at 21:00 Amiodarone HCl (Cordarone) 200 mg DAILY PO Last administered on 01/01/17t 09:13 ; Admin Dose 200 MG; Start 12/31/16 at 09:00 MADELYN MIRANDA MD January 01, 2017 20:16
[2017-01-01] MEDS: DEXTROSE 5% 1,000 ML IV SCH (20:49)
[2017-01-01] MEDS: ATORVASTATIN 10 MG TAB PO SCH (21:00)
[2017-01-02] VITALS (11 sets, daily range): BP systolic 125–185; BP diastolic 58–94; PULSE 75–93; RESP 17–20
[2017-01-02] MEDS: FUROSEMIDE 20 MG TAB PO SCH (06:11)
[2017-01-02 08:44] LABS: CALCIUM 10.7 mg/dl (8.4-10.2); CREATININE 6.59 mg/dl (0.61-1.24); POTASSIUM 5.2 mmol/L (3.5-5.1)
[2017-01-02] MEDS: MEGESTROL (40 MG/ML) 10ML CUP PO SCH ×2 (09:00→21:00)
[2017-01-02] MEDS: POLYETHYLENE GLYCOL 17 GM PACKET PO SCH ×2 (09:00→21:00)
[2017-01-02] MEDS: FAMOTIDINE 20 MG TAB PO SCH (09:09)
[2017-01-02] MEDS: AMLODIPINE 5 MG TAB PO SCH ×2 (09:10→21:00)
[2017-01-02] MEDS: AMIODARONE 200 MG TAB PO SCH (09:11)
[2017-01-02] MEDS: METOPROLOL 50 MG TAB PO SCH ×2 (09:11→21:00)
[2017-01-02] MEDS: HEPARIN 5,000 UNIT/0.5 ML VIAL SC SCH ×2 (09:14→21:00)
--- NOTE | 2017-01-02 12:45 | PN ---
Date/Time of Note Date/Time of Note DATE: 01/02/17 TIME: 12:41 Assessment/Plan VTE Prophylaxis VTE Prophylaxis Intervention: SCD's Lines/Catheters IV Catheter Type (from Nrs): Peripheral IV Urinary Cath still in place: Yes Reason Cath still needed: urinary retention Assessment/Plan Chief Complaint/Hosp Course Problems: Assessment/Plan Dysphagia Failure to thrive Acute kidney injury Hypertension Gout Atrial fibrillation Plan: Nutrition consult in process for tube feed Speech therapy following follow up Barium swallow evaluation with speech therapy Subjective 24 Hr Interval Summary Free Text/Dictation * Course reviewed with RN * Patient seen and examined * Still refusing to eat * awaiting speech swallow evaluation Exam/Review of Systems Vital Signs Vitals Vital Signs Date Time Temp Pulse Resp B/P Pulse Ox O2 Delivery O2 Flow Rate FiO2 01/02/17 12:17 77 01/02/17 11:42 98.0 18 150/68 94 01/02/17 07:27 Nasal Cannula 2.0 Intake and Output 01/01/17 01/01/17 01/02/17 15:00 23:00 07:00 Intake Total 100 ml 50 ml Output Total 900 ml 900 ml Balance -800 ml -850 ml Exam Constitutional: alert, frail Neck: non-tender, supple Respiratory: clear to auscultation, normal air movement Cardiovascular: nl pulses, regular rate and rhythm Gastrointestinal: non-tender, soft Musculoskeletal: nl extremities to inspection Extremities: normal pulses Results Result Diagram: 01/01/17 0621 01/02/17 0650 Results 24 hrs Laboratory Tests Test 01/02/17 06:50 Sodium Level 154 H Potassium Level 5.2 H Chloride Level 116 H Carbon Dioxide Level 24 Anion Gap 19 H Blood Urea Nitrogen 45 H Creatinine 6.59 H Glucose Level 96 Calcium Level 10.7 H Medications Medications Current Medications Ondansetron HCl (Zofran Inj) 4 mg Q6H PRN IV NAUSEA AND/OR VOMITING Last administered on 12/24/16 12:08; Admin Dose 4 MG; Start 12/10/16 at 18:00 Magnesium Hydroxide (Milk Of Mag) 30 ml DAILY PRN PO CONSTIPATION Last administered on 12/29/16 08:56; Admin Dose 30 ML; Start 12/10/16 at 18:00 Bisacodyl (Dulcolax) 5 mg DAILY PRN PO CONSTIPATION; Start 12/10/16 at 18:00 Famotidine (Pepcid) 20 mg DAILY PO Last administered on 01/02/17 09:09; Admin Dose 20 MG; Start 12/11/16 at 09:00 Hydralazine HCl (Apresoline) 10 mg Q6H PRN IV SBP>160 Last administered on 01/01 18:26; Admin Dose 10 MG; Start 12/10/16 at 18:00 Atorvastatin Calcium (Lipitor) 10 mg DAILY@21 PO Last administered on 22:13; Admin Dose 10 MG; Start 12/10/16 at 21:00 Heparin Sodium (Porcine) 5000 unit 5,000 unit BID SC Last administered on 09:14; Admin Dose 5,000 UNIT; Start 12/11/16 at 21:00 Diltiazem HCl (Cardizem-D5W 125 Mg/125 ml Drip) 125 ml @ 5 mls/hr TITRATE IV ; Start 12/16/16 at 22:45 Megestrol Acetate (Megace Susp) 400 mg BID PO Last administered on 12/31/16 22 :13; Admin Dose 400 MG; Start 12/17/16 at 13:00 Metoprolol Tartrate (Lopressor) 50 mg BID PO Last administered on 01/02/17 09: 11; Admin Dose 50 MG; Start 12/17/16 at 21:00 Polyethylene Glycol (Miralax) 17 gm BID PO Last administered on 12/31/16 22:13 ; Admin Dose 17 GM; Start 12/21/16 at 21:00 Miscellaneous Information 1 ea NOTE XX ; Start 12/21/16 at 17:30 Glucose (Glutose) 15 gm Q15M PRN PO DECREASED GLUCOSE; Start 12/21/16 at 17:30 Glucose (Glutose) 22.5 gm Q15M PRN PO DECREASED GLUCOSE; Start 12/21/16 at 17: 30 Dextrose (D50w Syringe) 25 ml Q15M PRN IV DECREASED GLUCOSE; Start 12/21/16 at 17:30 Dextrose (D50w Syringe) 50 ml Q15M PRN IV DECREASED GLUCOSE; Start 12/21/16 at 17:30 Glucagon (Glucagen) 1 mg Q15M PRN IM DECREASED GLUCOSE; Start 12/21/16 at 17:30 Glucose (Glutose) 15 gm Q15M PRN BUCCAL DECREASED GLUCOSE; Start 12/21/16 at 17 :30 Oxycodone HCl (Roxicodone) 10 mg Q6H PRN PO PAIN LEVEL 7-10 Last administered on 12/30/16 15:40; Admin Dose 10 MG; Start 12/25/16 at 13:00 Amlodipine Besylate (Norvasc) 5 mg BID PO Last administered on 01/02/17 09:10 ; Admin Dose 5 MG; Start 12/27/16 at 21:00 Amiodarone HCl 200 mg 200 mg DAILY PO Last administered on 01/02/17 09:11; Admin Dose 200 MG; Start 12/31/16 at 09:00 Dextrose (D5W) 1,000 ml @ 60 mls/hr [id number] IV Last administered on 01/01/17 20:49; Admin Dose 60 MLS/HR; Start 01/01/17 at 20:30; Stop 01/03/17 at 05:49 TYLER ARZATE MD January 02, 2017 12:45
--- NOTE | 2017-01-02 13:00 | CONS ---
Date/Time of Note Date/Time of Note DATE: 01/02/17 TIME: 12:47 Consult Date/Type/Reason Admit Date/Time December 10, 2016 at 16:57 Type of Consultation: NEPHROLOGY Ordering Provider: JACK JENNINGS [employer] F[employer]ER Subjective resting in bed, seems comfortable- no agitation noted at present, pt confused, required restraints, BP stable. dw staff Objective Vital Signs Date Time Temp Pulse Resp B/P Pulse Ox O2 Delivery O2 Flow Rate FiO2 01/02/17 12:17 77 01/02/17 11:42 98.0 18 150/68 94 01/02/17 07:27 Nasal Cannula 2.0 Intake and Output 01/01/17 01/01/17 01/02/17 15:00 23:00 07:00 Intake Total 100 ml 50 ml Output Total 900 ml 900 ml Balance -800 ml -850 ml Exam Constitutional: alert, open eyes, doesn't follow commands Respiratory: clear to auscultation bilaterally, normal air movement Cardiovascular: regular rate and rhythm Gastrointestinal: soft, No distended Musculoskeletal: nl extremities to inspection Psych: confusion Results/Medications Result Diagram: 01/01/17 0621 01/02/17 0650 Results 24 hrs Laboratory Tests Test 01/02/17 06:50 Sodium Level 154 H Potassium Level 5.2 H Chloride Level 116 H Carbon Dioxide Level 24 Anion Gap 19 H Blood Urea Nitrogen 45 H Creatinine 6.59 H Glucose Level 96 Calcium Level 10.7 H Medications Current Medications Ondansetron HCl (Zofran Inj) 4 mg Q6H PRN IV NAUSEA AND/OR VOMITING Last administered on 12/24/16 12:08; Admin Dose 4 MG; Start 12/10/16 at 18:00 Magnesium Hydroxide (Milk Of Mag) 30 ml DAILY PRN PO CONSTIPATION Last administered on 12/29/16 08:56; Admin Dose 30 ML; Start 12/10/16 at 18:00 Bisacodyl (Dulcolax) 5 mg DAILY PRN PO CONSTIPATION; Start 12/10/16 at 18:00 Famotidine (Pepcid) 20 mg DAILY PO Last administered on 01/02/17 09:09; Admin Dose 20 MG; Start 12/11/16 at 09:00 Hydralazine HCl (Apresoline) 10 mg Q6H PRN IV SBP>160 Last administered on 01/01 18:26; Admin Dose 10 MG; Start 12/10/16 at 18:00 Atorvastatin Calcium (Lipitor) 10 mg DAILY@21 PO Last administered on 22:13; Admin Dose 10 MG; Start 12/10/16 at 21:00 Heparin Sodium (Porcine) 5000 unit 5,000 unit BID SC Last administered on 09:14; Admin Dose 5,000 UNIT; Start 12/11/16 at 21:00 Diltiazem HCl (Cardizem-D5W 125 Mg/125 ml Drip) 125 ml @ 5 mls/hr TITRATE IV ; Start 12/16/16 at 22:45 Megestrol Acetate (Megace Susp) 400 mg BID PO Last administered on 12/31/16 22 :13; Admin Dose 400 MG; Start 12/17/16 at 13:00 Metoprolol Tartrate (Lopressor) 50 mg BID PO Last administered on 01/02/17 09: 11; Admin Dose 50 MG; Start 12/17/16 at 21:00 Polyethylene Glycol (Miralax) 17 gm BID PO Last administered on 12/31/16 22:13 ; Admin Dose 17 GM; Start 12/21/16 at 21:00 Miscellaneous Information 1 ea NOTE XX ; Start 12/21/16 at 17:30 Glucose (Glutose) 15 gm Q15M PRN PO DECREASED GLUCOSE; Start 12/21/16 at 17:30 Glucose (Glutose) 22.5 gm Q15M PRN PO DECREASED GLUCOSE; Start 12/21/16 at 17: 30 Dextrose (D50w Syringe) 25 ml Q15M PRN IV DECREASED GLUCOSE; Start 12/21/16 at 17:30 Dextrose (D50w Syringe) 50 ml Q15M PRN IV DECREASED GLUCOSE; Start 12/21/16 at 17:30 Glucagon (Glucagen) 1 mg Q15M PRN IM DECREASED GLUCOSE; Start 12/21/16 at 17:30 Glucose (Glutose) 15 gm Q15M PRN BUCCAL DECREASED GLUCOSE; Start 12/21/16 at 17 :30 Oxycodone HCl (Roxicodone) 10 mg Q6H PRN PO PAIN LEVEL 7-10 Last administered on 12/30/16 15:40; Admin Dose 10 MG; Start 12/25/16 at 13:00 Amlodipine Besylate (Norvasc) 5 mg BID PO Last administered on 01/02/17 09:10 ; Admin Dose 5 MG; Start 12/27/16 at 21:00 Amiodarone HCl 200 mg 200 mg DAILY PO Last administered on 01/02/17 09:11; Admin Dose 200 MG; Start 12/31/16 at 09:00 Dextrose (D5W) 1,000 ml @ 60 mls/hr [id number] IV Last administered on 01/01/17 20:49; Admin Dose 60 MLS/HR; Start 01/01/17 at 20:30; Stop 01/03/17 at 05:49 Assessment/Plan Additional Assessment/Plan DO NOT RESUSCITATE - Acute kidney injury, multifactorial, not improving despite being on IVF hydration, BUN/Cr persistently high ,.started on HD during this admission - now HD catheter discontinued we are monitoring as needed - Hypernatremia-154 - Status post fall, which was a mechanical fall, but likely due to the hyponatremia. CT brain is negative. - Possible history of chronic kidney disease secondary to hypertensive nephrosclerosis. - History of hypertension. - History of gout. - History of hyperlipidemia. - Atrial fibrillation, rate controlled. - History of alcohol abuse. - Thrombocytopenia secondary to alcohol abuse. - sepsis due to UTI and bacteremia with Blood cx and urine Cx growing proteus - follow up blood cx negative - Moderate pleural effusion s/p Throacentesis 12/31/2016- 2.21 L Fluid removed PLAN: pt had a HD on 12/29 and 12/30- then HD catheter has been discontinued Mccormack catheter has been discontinued S/p Right thoracentesis 12/31/16- 2.1 fluid removed Blood cx and Urine cx grew proteus - on IV abx - Follow up blood cx on 12/16/16 negative to date no Plan for HD now, pt started on Lasix 20mg pO BID pt needs better work up for back pain and also need evaluation by Spine surgeon for his Severe OA with Spinal stenosis, ID is also concerned about infections in L spine - currently on IV Abx avoid sedative, hypnotics will continue to follow up Further recommendations depend upon patient's clinical course. Plan of care discussed with Dr Miguelina Avalos/staff МАРИНА DOSHI January 02, 2017 12:57
[2017-01-02] MEDS: DEXTROSE 5% 1,000 ML IV SCH ×2 (13:14→14:30)
--- NOTE | 2017-01-02 14:17 | CONS ---
Date/Time of Note Date/Time of Note DATE: 01/02/17 TIME: 14:15 Assessment/Plan Assessment/Plan Chief Complaint/Hosp Course ID PROGRESS NOTE ABX DAY # OFF ABX Merrem s/p Zyvox 24H INTERVAL SUMMARY * STABLE OFF ABX: Awake, alert, responsive, confused, no fevers, NAD, pulls at lines, tubes and attempts to get OOB -> requires soft wrist restraints * RECENT EVENTS REVIEWED * pt had a HD on 12/29 and 12/30- then HD catheter has been discontinued * Mccormack catheter has been discontinued * S/p Right thoracentesis 12/31/16- 2.1 fluid removed * PHYSICAL EXAMINATION: GENERAL: VSS, NAD, no fever HEENT: Unremarkable NECK: Trach-> midline CHEST: Equal chest rise bilaterally, without dyspnea on observation HEART: Pulse RRR ABDOMEN: Soft EXTREMITIES: Warm, SKIN: Warm, dry ID ASSESSMENT: 71 yo M w/ admitted with: 1. Sepsis w/ bacteremia on admission => Sepsis resolved 2. Proteus mirabilis urinary tract infection with bacteremia => RESOLVED 3. Acute kidney failure, possible chronic kidney disease. 4. Bilateral kidney stones, urology on the case = non-obstructive 5. HCAP, poss aspiration => TREATED w/ full course ABX 6. Atrial fibrillation. 7. Hypertension. 8. Chronic back pain with a CT of the abdomen and pelvis concerning for diskitis at T11/12 border and osteomyelitis. * MRI of thoracic spine on December 18 revealed degeneration versus infection over the posterior disk bulge; however, the examination was limited at that time because motion artifact and the patient's inability to cooperate 9. Acute on chronic kidney disease. 10. Encephalopathy=> Improved; however patient is confused 11, History of alcohol abuse ?dementia? ABX ALLERGIES: PCN, ADHESIVE, LATEX CURRENT ABX: # OFF ABX Merrem s/p Zyvox ID RECOMMENDATIONS: 1. Continue to observe the patient OFF ABX 2. Needs f/u with original spine surgeon -- back pain spinal stenosis . Problems: Consultation Date/Type/Reason Admit Date/Time December 10, 2016 at 16:57 Type of Consultation: ID Referring Provider: JACK JENNINGS [employer]PER[employer] Exam/Review of Systems Vital Signs Vitals Vital Signs Date Time Temp Pulse Resp B/P Pulse Ox O2 Delivery O2 Flow Rate FiO2 01/02/17 12:17 77 01/02/17 11:42 98.0 18 150/68 94 01/02/17 07:27 Nasal Cannula 2.0 Intake and Output 01/01/17 01/01/17 01/02/17 15:00 23:00 07:00 Intake Total 100 ml 50 ml Output Total 900 ml 900 ml Balance -800 ml -850 ml Results Result Diagram: 01/01/17 0621 01/02/17 0650 Results 24 hrs Laboratory Tests Test 01/02/17 06:50 Sodium Level 154 H Potassium Level 5.2 H Chloride Level 116 H Carbon Dioxide Level 24 Anion Gap 19 H Blood Urea Nitrogen 45 H Creatinine 6.59 H Glucose Level 96 Calcium Level 10.7 H Medications Medications Current Medications Ondansetron HCl (Zofran Inj) 4 mg Q6H PRN IV NAUSEA AND/OR VOMITING Last administered on 12/24/16 12:08; Admin Dose 4 MG; Start 12/10/16 at 18:00 Magnesium Hydroxide (Milk Of Mag) 30 ml DAILY PRN PO CONSTIPATION Last administered on 12/29/16 08:56; Admin Dose 30 ML; Start 12/10/16 at 18:00 Bisacodyl (Dulcolax) 5 mg DAILY PRN PO CONSTIPATION; Start 12/10/16 at 18:00 Famotidine (Pepcid) 20 mg DAILY PO Last administered on 01/02/17 09:09; Admin Dose 20 MG; Start 12/11/16 at 09:00 Hydralazine HCl (Apresoline) 10 mg Q6H PRN IV SBP>160 Last administered on 01/01 18:26; Admin Dose 10 MG; Start 12/10/16 at 18:00 Atorvastatin Calcium (Lipitor) 10 mg DAILY@21 PO Last administered on 22:13; Admin Dose 10 MG; Start 12/10/16 at 21:00 Heparin Sodium (Porcine) 5000 unit 5,000 unit BID SC Last administered on 09:14; Admin Dose 5,000 UNIT; Start 12/11/16 at 21:00 Diltiazem HCl (Cardizem-D5W 125 Mg/125 ml Drip) 125 ml @ 5 mls/hr TITRATE IV ; Start 12/16/16 at 22:45 Megestrol Acetate (Megace Susp) 400 mg BID PO Last administered on 12/31/16 22 :13; Admin Dose 400 MG; Start 12/17/16 at 13:00 Metoprolol Tartrate (Lopressor) 50 mg BID PO Last administered on 01/02/17 09: 11; Admin Dose 50 MG; Start 12/17/16 at 21:00 Polyethylene Glycol (Miralax) 17 gm BID PO Last administered on 12/31/16 22:13 ; Admin Dose 17 GM; Start 12/21/16 at 21:00 Miscellaneous Information 1 ea NOTE XX ; Start 12/21/16 at 17:30 Glucose (Glutose) 15 gm Q15M PRN PO DECREASED GLUCOSE; Start 12/21/16 at 17:30 Glucose (Glutose) 22.5 gm Q15M PRN PO DECREASED GLUCOSE; Start 12/21/16 at 17: 30 Dextrose (D50w Syringe) 25 ml Q15M PRN IV DECREASED GLUCOSE; Start 12/21/16 at 17:30 Dextrose (D50w Syringe) 50 ml Q15M PRN IV DECREASED GLUCOSE; Start 12/21/16 at 17:30 Glucagon (Glucagen) 1 mg Q15M PRN IM DECREASED GLUCOSE; Start 12/21/16 at 17:30 Glucose (Glutose) 15 gm Q15M PRN BUCCAL DECREASED GLUCOSE; Start 12/21/16 at 17 :30 Oxycodone HCl (Roxicodone) 10 mg Q6H PRN PO PAIN LEVEL 7-10 Last administered on 12/30/16 15:40; Admin Dose 10 MG; Start 12/25/16 at 13:00 Amlodipine Besylate (Norvasc) 5 mg BID PO Last administered on 01/02/17 09:10 ; Admin Dose 5 MG; Start 12/27/16 at 21:00 Amiodarone HCl 200 mg 200 mg DAILY PO Last administered on 01/02/17 09:11; Admin Dose 200 MG; Start 12/31/16 at 09:00 Dextrose (D5W) 1,000 ml @ 60 mls/hr [id number] IV Last administered on 01/02/17 13:14; Admin Dose 60 MLS/HR; Start 01/01/17 at 20:30; Stop 01/03/17 at 05:49 Sodium Polystyrene Sulfonate 15 gm 15 gm ONCE ONCE PO ; Start 01/02/17 at 14:30 ; Stop 01/02/17 at 14:31; Status UNV Dextrose (D5W) 1,000 ml @ 50 mls/hr Q20H IV ; Start 01/02/17 at 14:30; Status UNV RHONDA PETERSON NP January 02, 2017 14:17
[2017-01-02] MEDS ORDERED: NA POLYST SULFON 15 GM/60 ML BTL PO ONE (14:30)
--- NOTE | 2017-01-02 18:20 | PN ---
Date/Time of Note Date/Time of Note DATE: 01/02/17 TIME: 18:18 Assessment/Plan VTE Prophylaxis VTE Prophylaxis Intervention: heparin Lines/Catheters IV Catheter Type (from Nrs): Peripheral IV Assessment/Plan Chief Complaint/Hosp Course 1. S/p sepsis 2. S/p Proteus mirabilis urinary tract infection with bacteremia. 3. Acute kidney failure on HD 4. S/p HCAP, poss aspiration. 5. Hypertension. 6. Paroxysmal Atrial fibrillation. 7. History of alcohol abuse. 8. Status post fall 9. Chronic Gout. 10. Stag horn calculus likely from uric acid 11. Chronic compression fractures with spinal stenosis 2/2 DJD of spine 12. Dysphagia. Continue aspiration precautions. Diet as per speech therapy. 13. Metabolic encephalopathy likely secondary to delirium- CT brain negative for any acute findings. Plan: * Continue supportive care and PT * Case mgt is working on placement * Urology is working up patient's calculi * Orthopedics consult for evaluation of spinal stenosis * Nephrology to remove defective IJ dialysis access at this time and keep patient of dialysis and see how he does. * Trial of lactulose for possible hepatic encephalopathy although ammonia is normal, of note patient is refusing p.o. meds DVT prophylaxis. Subcutaneous heparin. Gastrointestinal prophylaxis. Histamine 2 receptor blockers. Problems: Subjective 24 Hr Interval Summary Constitutional: disoriented Exam/Review of Systems Vital Signs Vitals Vital Signs Date Time Temp Pulse Resp B/P Pulse Ox O2 Delivery O2 Flow Rate FiO2 01/02/17 16:03 75 01/02/17 16:03 97.9 20 129/58 95 01/02/17 07:27 Nasal Cannula 2.0 Intake and Output 01/01/17 01/01/17 01/02/17 15:00 23:00 07:00 Intake Total 100 ml 50 ml Output Total 900 ml 900 ml Balance -800 ml -850 ml Exam Psych: confusion Respiratory: clear to auscultation Cardiovascular: regular rate and rhythm Gastrointestinal: soft, No distended Musculoskeletal: nl extremities to inspection Results Result Diagram: 01/01/17 0621 01/02/17 0650 Results 24 hrs Laboratory Tests Test 01/02/17 06:50 Sodium Level 154 H Potassium Level 5.2 H Chloride Level 116 H Carbon Dioxide Level 24 Anion Gap 19 H Blood Urea Nitrogen 45 H Creatinine 6.59 H Glucose Level 96 Calcium Level 10.7 H Medications Medications Current Medications Ondansetron HCl (Zofran Inj) 4 mg Q6H PRN IV NAUSEA AND/OR VOMITING Last administered on 12/24/16 12:08; Admin Dose 4 MG; Start 12/10/16 at 18:00 Magnesium Hydroxide (Milk Of Mag) 30 ml DAILY PRN PO CONSTIPATION Last administered on 12/29/16 08:56; Admin Dose 30 ML; Start 12/10/16 at 18:00 Bisacodyl (Dulcolax) 5 mg DAILY PRN PO CONSTIPATION; Start 12/10/16 at 18:00 Famotidine (Pepcid) 20 mg DAILY PO Last administered on 01/02/17 09:09; Admin Dose 20 MG; Start 12/11/16 at 09:00 Hydralazine HCl (Apresoline) 10 mg Q6H PRN IV SBP>160 Last administered on 01/01 18:26; Admin Dose 10 MG; Start 12/10/16 at 18:00 Atorvastatin Calcium (Lipitor) 10 mg DAILY@21 PO Last administered on 22:13; Admin Dose 10 MG; Start 12/10/16 at 21:00 Heparin Sodium (Porcine) 5000 unit 5,000 unit BID SC Last administered on 09:14; Admin Dose 5,000 UNIT; Start 12/11/16 at 21:00 Diltiazem HCl (Cardizem-D5W 125 Mg/125 ml Drip) 125 ml @ 5 mls/hr TITRATE IV ; Start 12/16/16 at 22:45 Megestrol Acetate (Megace Susp) 400 mg BID PO Last administered on 12/31/16 22 :13; Admin Dose 400 MG; Start 12/17/16 at 13:00 Metoprolol Tartrate (Lopressor) 50 mg BID PO Last administered on 01/02/17 09: 11; Admin Dose 50 MG; Start 12/17/16 at 21:00 Polyethylene Glycol (Miralax) 17 gm BID PO Last administered on 12/31/16 22:13 ; Admin Dose 17 GM; Start 12/21/16 at 21:00 Miscellaneous Information 1 ea NOTE XX ; Start 12/21/16 at 17:30 Glucose (Glutose) 15 gm Q15M PRN PO DECREASED GLUCOSE; Start 12/21/16 at 17:30 Glucose (Glutose) 22.5 gm Q15M PRN PO DECREASED GLUCOSE; Start 12/21/16 at 17: 30 Dextrose (D50w Syringe) 25 ml Q15M PRN IV DECREASED GLUCOSE; Start 12/21/16 at 17:30 Dextrose (D50w Syringe) 50 ml Q15M PRN IV DECREASED GLUCOSE; Start 12/21/16 at 17:30 Glucagon (Glucagen) 1 mg Q15M PRN IM DECREASED GLUCOSE; Start 12/21/16 at 17:30 Glucose (Glutose) 15 gm Q15M PRN BUCCAL DECREASED GLUCOSE; Start 12/21/16 at 17 :30 Oxycodone HCl (Roxicodone) 10 mg Q6H PRN PO PAIN LEVEL 7-10 Last administered on 12/30/16 15:40; Admin Dose 10 MG; Start 12/25/16 at 13:00 Amlodipine Besylate (Norvasc) 5 mg BID PO Last administered on 01/02/17 09:10 ; Admin Dose 5 MG; Start 12/27/16 at 21:00 Amiodarone HCl 200 mg 200 mg DAILY PO Last administered on 01/02/17 09:11; Admin Dose 200 MG; Start 12/31/16 at 09:00 Dextrose 1,000 ml @ 60 mls/hr [id number] IV Last administered on 01/02/17 13:14 ; Admin Dose 60 MLS/HR; Start 01/01/17 at 20:30; Stop 01/03/17 at 05:49 Dextrose (D5W) 1,000 ml @ 50 mls/hr Q20H IV Last administered on 01/02/17 14: 30; Admin Dose 50 MLS/HR; Start 01/02/17 at 14:30 HALEY MAN January 02, 2017 18:20
[2017-01-02] MEDS: ATORVASTATIN 10 MG TAB PO SCH (21:00)
[2017-01-03] VITALS (13 sets, daily range): BP systolic 148–163; BP diastolic 56–87; PULSE 77–92; RESP 16–20
[2017-01-03] MEDS: FUROSEMIDE 20 MG TAB PO SCH (06:00)
[2017-01-03] MEDS ORDERED: FUROSEMIDE 20 MG INJ IV SCH (07:00)
[2017-01-03 07:01] LABS: ADD SCAN DIFF NO
[2017-01-03 07:12] LABS: BASOPHIL # 0.1 10^3/ul (0.0-0.1); BASOPHILS % 0.5 % (0.0-2.0); EOSINOPHILS # 0.2 10^3/ul (0.0-0.5); EOSINOPHILS % 1.6 % (0.0-7.0); HEMATOCRIT 27.6 % (42.0-52.0); HEMOGLOBIN 8.5 g/dl (14.0-18.0); LYMPHOCYTES # 1.2 10^3/ul (0.8-2.9); LYMPHOCYTES % 9.5 % (15.0-51.0); MEAN CORPUSCULAR HEMOGLOBIN 29.4 pg (29.0-33.0); MEAN CORPUSCULAR HGB CONC 30.8 g/dl (32.0-37.0); MEAN CORPUSCULAR VOLUME 95.5 fl (82.0-101.0); MEAN PLATELET VOLUME 10.6 fl (7.4-10.4); MONOCYTE # 0.8 10^3/ul (0.3-0.9); NEUTROPHIL # 10.5 10^3/ul (1.6-7.5); NEUTROPHILS % 81.6 % (39.0-77.0); PLATELET COUNT 379 10^3/UL (140-415); RED BLOOD COUNT 2.89 10^6/ul (4.70-6.10); RED CELL DISTRIBUTION WIDTH 14.7 % (11.5-14.5); WHITE BLOOD COUNT 12.8 10^3/ul (4.8-10.8)
[2017-01-03 07:37] LABS: CALCIUM 10.6 mg/dl (8.4-10.2); CREATININE 7.22 mg/dl (0.61-1.24); POTASSIUM 4.7 mmol/L (3.5-5.1)
[2017-01-03] MEDS: AMIODARONE 200 MG TAB PO SCH (08:23)
[2017-01-03] MEDS: METOPROLOL 50 MG TAB PO SCH ×2 (08:24→20:42)
[2017-01-03] MEDS: AMLODIPINE 5 MG TAB PO SCH ×2 (08:24→20:43)
[2017-01-03] MEDS: FAMOTIDINE 20 MG TAB PO SCH (08:24)
[2017-01-03] MEDS: POLYETHYLENE GLYCOL 17 GM PACKET PO SCH ×2 (08:30→20:43)
[2017-01-03] MEDS: HEPARIN 5,000 UNIT/0.5 ML VIAL SC SCH ×2 (08:30→20:53)
[2017-01-03] MEDS: MEGESTROL (40 MG/ML) 10ML CUP PO SCH ×2 (08:31→20:43)
--- NOTE | 2017-01-03 11:59 | CONS ---
Date/Time of Note Date/Time of Note DATE: 01/03/17 TIME: 11:55 Consult Date/Type/Reason Admit Date/Time December 10, 2016 at 16:57 Type of Consultation: ID Ordering Provider: JACK JENNINGS PRODUCT DEVELOPMENT COORDINATOR Subjective awake, alert, afebrile, no agitation noted, answer simple Qs, seems comfortable, dw staff-no new issues reported overnight Objective Vital Signs Date Time Temp Pulse Resp B/P Pulse Ox O2 Delivery O2 Flow Rate FiO2 01/03/17 11:36 97.9 74 20 163/78 98 01/02/17 20:02 Nasal Cannula 2.0 Intake and Output 01/02/17 01/02/17 01/03/17 15:00 23:00 07:00 Intake Total 50 ml Output Total 500 ml 100 ml Balance -500 ml -50 ml Exam Constitutional: alert, open eyes, answer simple Qs Respiratory: clear to auscultation bilaterally, normal air movement Cardiovascular: regular rate and rhythm Gastrointestinal: soft, No distended Musculoskeletal: nl extremities to inspection Psych: confusion Results/Medications Result Diagram: 01/03/17 0620 01/03/17 0635 Results 24 hrs Laboratory Tests Test 01/03/17 06:20 01/03/17 06:35 White Blood Count 12.8 #H Red Blood Count 2.89 L Hemoglobin 8.5 L Hematocrit 27.6 L Mean Corpuscular Volume 95.5 Mean Corpuscular Hemoglobin 29.4 Mean Corpuscular Hemoglobin Concent 30.8 L Red Cell Distribution Width 14.7 H Platelet Count 379 Mean Platelet Volume 10.6 H Neutrophils % 81.6 H Lymphocytes % 9.5 L Monocytes % 6.0 Eosinophils % 1.6 Basophils % 0.5 Nucleated Red Blood Cells % 0.0 Neutrophils # 10.5 H Lymphocytes # 1.2 Monocytes # 0.8 Eosinophils # 0.2 Basophils # 0.1 Nucleated Red Blood Cells # 0.0 Sodium Level 156 H Potassium Level 4.7 Chloride Level 117 H Carbon Dioxide Level 25 Anion Gap 19 H Blood Urea Nitrogen 45 H Creatinine 7.22 H Glucose Level 98 Calcium Level 10.6 H Medications Current Medications Ondansetron HCl (Zofran Inj) 4 mg Q6H PRN IV NAUSEA AND/OR VOMITING Last administered on 12/24/16t 12:08; Admin Dose 4 MG; Start 12/10/16 at 18:00 Magnesium Hydroxide (Milk Of Mag) 30 ml DAILY PRN PO CONSTIPATION Last administered on 12/29/16 08:56; Admin Dose 30 ML; Start 12/10/16 at 18:00 Bisacodyl (Dulcolax) 5 mg DAILY PRN PO CONSTIPATION; Start 12/10/16 at 18:00 Famotidine (Pepcid) 20 mg DAILY PO Last administered on 01/03/17 08:24; Admin Dose 20 MG; Start 12/11/16 at 09:00 Hydralazine HCl (Apresoline) 10 mg Q6H PRN IV SBP>160 Last administered on 01/01 18:26; Admin Dose 10 MG; Start 12/10/16 at 18:00 Atorvastatin Calcium (Lipitor) 10 mg DAILY@21 PO Last administered on 22:13; Admin Dose 10 MG; Start 12/10/16 at 21:00 Heparin Sodium (Porcine) 5000 unit 5,000 unit BID SC Last administered on 09:14; Admin Dose 5,000 UNIT; Start 12/11/16 at 21:00 Diltiazem HCl (Cardizem-D5W 125 Mg/125 ml Drip) 125 ml @ 5 mls/hr TITRATE IV ; Start 12/16/16 at 22:45 Megestrol Acetate (Megace Susp) 400 mg BID PO Last administered on 12/31/16 22 :13; Admin Dose 400 MG; Start 12/17/16 at 13:00 Metoprolol Tartrate (Lopressor) 50 mg BID PO Last administered on 01/03/17 08: 24; Admin Dose 50 MG; Start 12/17/16 at 21:00 Polyethylene Glycol (Miralax) 17 gm BID PO Last administered on 12/31/16 22:13 ; Admin Dose 17 GM; Start 12/21/16 at 21:00 Miscellaneous Information 1 ea NOTE XX ; Start 12/21/16 at 17:30 Glucose (Glutose) 15 gm Q15M PRN PO DECREASED GLUCOSE; Start 12/21/16 at 17:30 Glucose (Glutose) 22.5 gm Q15M PRN PO DECREASED GLUCOSE; Start 12/21/16 at 17: 30 Dextrose (D50w Syringe) 25 ml Q15M PRN IV DECREASED GLUCOSE; Start 12/21/16 at 17:30 Dextrose (D50w Syringe) 50 ml Q15M PRN IV DECREASED GLUCOSE; Start 12/21/16 at 17:30 Glucagon (Glucagen) 1 mg Q15M PRN IM DECREASED GLUCOSE; Start 12/21/16 at 17:30 Glucose (Glutose) 15 gm Q15M PRN BUCCAL DECREASED GLUCOSE; Start 12/21/16 at 17 :30 Oxycodone HCl (Roxicodone) 10 mg Q6H PRN PO PAIN LEVEL 7-10 Last administered on 12/30/16 15:40; Admin Dose 10 MG; Start 12/25/16 at 13:00 Amlodipine Besylate (Norvasc) 5 mg BID PO Last administered on 01/03/17 08:24 ; Admin Dose 5 MG; Start 12/27/16 at 21:00 Amiodarone HCl 200 mg 200 mg DAILY PO Last administered on 01/03/17 08:23; Admin Dose 200 MG; Start 12/31/16 at 09:00 Dextrose (D5W) 1,000 ml @ 50 mls/hr Q20H IV Last administered on 01/02/17 14: 30; Admin Dose 50 MLS/HR; Start 01/02/17 at 14:30 Assessment/Plan Additional Assessment/Plan DO NOT RESUSCITATE - Acute kidney injury, multifactorial, not improving despite being on IVF hydration, BUN/Cr persistently high ,.started on HD during this admission - now HD catheter discontinued we are monitoring as needed - Hypernatremia-156 - sp D5W x Liter yesterday - am labs - Status post fall, which was a mechanical fall, but likely due to the hyponatremia. CT brain is negative. - Possible history of chronic kidney disease secondary to hypertensive nephrosclerosis. - History of hypertension. - History of gout. - History of hyperlipidemia. - Atrial fibrillation, rate controlled. - History of alcohol abuse. - Thrombocytopenia secondary to alcohol abuse. - sepsis due to UTI and bacteremia with Blood cx and urine Cx growing proteus - follow up blood cx negative - Moderate pleural effusion s/p Thoracentesis 12/31/2016- 2.21 L Fluid removed PLAN: pt had a HD on 12/29 and 12/30- then HD catheter has been discontinued Mccormack catheter has been discontinued S/p Right thoracentesis 12/31/16- 2.1 fluid removed Blood cx and Urine cx grew proteus - on IV abx - Follow up blood cx on 12/16/16 negative to date no Plan for HD now, pt started on Lasix 20mg pO BID pt needs better work up for back pain and also need evaluation by Spine surgeon for his Severe OA with Spinal stenosis, ID is also concerned about infections in L spine - currently on IV Abx avoid sedative, hypnotics will continue to follow up Further recommendations depend upon patient's clinical course. Plan of care discussed with Dr Miguelina Avalos/staff МАРИНА DOSHI January 03, 2017 11:59
[2017-01-03] MEDS: DEXTROSE 5% 1,000 ML IV SCH ×2 (12:02→22:27)
--- NOTE | 2017-01-03 13:06 | PN ---
Date/Time of Note Date/Time of Note DATE: 01/03/17 TIME: 13:04 Assessment/Plan VTE Prophylaxis VTE Prophylaxis Intervention: SCD's Lines/Catheters IV Catheter Type (from [facility]): Saline Lock Central line still needed: Yes Urinary Cath still in place: Yes Reason Cath still needed: urinary retention Assessment/Plan Chief Complaint/Hosp Course Problems: Assessment/Plan Dysphagia Failure to thrive Acute kidney injury Hypertension Gout Atrial fibrillation Plan: Nutrition consult in process for tube feed Speech therapy following follow up Barium swallow evaluation with speech therapy Subjective 24 Hr Interval Summary Free Text/Dictation * Course reviewed with RN * Patient seen and examined * Refused food and medication as well as nasogastric tube insertion * Still for swallow evaluation Exam/Review of Systems Vital Signs Vitals Vital Signs Date Time Temp Pulse Resp B/P Pulse Ox O2 Delivery O2 Flow Rate FiO2 01/03/17 11:36 97.9 74 20 163/78 98 01/02/17 20:02 Nasal Cannula 2.0 Intake and Output 01/02/17 01/02/17 01/03/17 15:00 23:00 07:00 Intake Total 50 ml Output Total 500 ml 100 ml Balance -500 ml -50 ml Exam Constitutional: frail Neck: non-tender, supple Respiratory: clear to auscultation, normal air movement Cardiovascular: nl pulses, regular rate and rhythm Gastrointestinal: non-tender, soft Musculoskeletal: nl extremities to inspection Results Result Diagram: 01/03/17 0620 01/03/17 0635 Results 24 hrs Laboratory Tests Test 01/03/17 06:20 01/03/17 06:35 White Blood Count 12.8 #H Red Blood Count 2.89 L Hemoglobin 8.5 L Hematocrit 27.6 L Mean Corpuscular Volume 95.5 Mean Corpuscular Hemoglobin 29.4 Mean Corpuscular Hemoglobin Concent 30.8 L Red Cell Distribution Width 14.7 H Platelet Count 379 Mean Platelet Volume 10.6 H Neutrophils % 81.6 H Lymphocytes % 9.5 L Monocytes % 6.0 Eosinophils % 1.6 Basophils % 0.5 Nucleated Red Blood Cells % 0.0 Neutrophils # 10.5 H Lymphocytes # 1.2 Monocytes # 0.8 Eosinophils # 0.2 Basophils # 0.1 Nucleated Red Blood Cells # 0.0 Sodium Level 156 H Potassium Level 4.7 Chloride Level 117 H Carbon Dioxide Level 25 Anion Gap 19 H Blood Urea Nitrogen 45 H Creatinine 7.22 H Glucose Level 98 Calcium Level 10.6 H Medications Medications Current Medications Ondansetron HCl (Zofran Inj) 4 mg Q6H PRN IV NAUSEA AND/OR VOMITING Last administered on 12/24/16 12:08; Admin Dose 4 MG; Start 12/10/16 at 18:00 Magnesium Hydroxide (Milk Of Mag) 30 ml DAILY PRN PO CONSTIPATION Last administered on 12/29/16 08:56; Admin Dose 30 ML; Start 12/10/16 at 18:00 Bisacodyl (Dulcolax) 5 mg DAILY PRN PO CONSTIPATION; Start 12/10/16 at 18:00 Famotidine (Pepcid) 20 mg DAILY PO Last administered on 01/03/17 08:24; Admin Dose 20 MG; Start 12/11/16 at 09:00 Hydralazine HCl (Apresoline) 10 mg Q6H PRN IV SBP>160 Last administered on 01/01 18:26; Admin Dose 10 MG; Start 12/10/16 at 18:00 Atorvastatin Calcium (Lipitor) 10 mg DAILY@21 PO Last administered on 22:13; Admin Dose 10 MG; Start 12/10/16 at 21:00 Heparin Sodium (Porcine) 5000 unit 5,000 unit BID SC Last administered on 09:14; Admin Dose 5,000 UNIT; Start 12/11/16 at 21:00 Diltiazem HCl (Cardizem-D5W 125 Mg/125 ml Drip) 125 ml @ 5 mls/hr TITRATE IV ; Start 12/16/16 at 22:45 Megestrol Acetate (Megace Susp) 400 mg BID PO Last administered on 12/31/16 22 :13; Admin Dose 400 MG; Start 12/17/16 at 13:00 Metoprolol Tartrate (Lopressor) 50 mg BID PO Last administered on 01/03/17 08: 24; Admin Dose 50 MG; Start 12/17/16 at 21:00 Polyethylene Glycol (Miralax) 17 gm BID PO Last administered on 12/31/16 22:13 ; Admin Dose 17 GM; Start 12/21/16 at 21:00 Miscellaneous Information 1 ea NOTE XX ; Start 12/21/16 at 17:30 Glucose (Glutose) 15 gm Q15M PRN PO DECREASED GLUCOSE; Start 12/21/16 at 17:30 Glucose (Glutose) 22.5 gm Q15M PRN PO DECREASED GLUCOSE; Start 12/21/16 at 17: 30 Dextrose (D50w Syringe) 25 ml Q15M PRN IV DECREASED GLUCOSE; Start 12/21/16 at 17:30 Dextrose (D50w Syringe) 50 ml Q15M PRN IV DECREASED GLUCOSE; Start 12/21/16 at 17:30 Glucagon (Glucagen) 1 mg Q15M PRN IM DECREASED GLUCOSE; Start 12/21/16 at 17:30 Glucose (Glutose) 15 gm Q15M PRN BUCCAL DECREASED GLUCOSE; Start 12/21/16 at 17 :30 Oxycodone HCl (Roxicodone) 10 mg Q6H PRN PO PAIN LEVEL 7-10 Last administered on 12/30/16 15:40; Admin Dose 10 MG; Start 12/25/16 at 13:00 Amlodipine Besylate (Norvasc) 5 mg BID PO Last administered on 01/03/17 08:24 ; Admin Dose 5 MG; Start 12/27/16 at 21:00 Amiodarone HCl 200 mg 200 mg DAILY PO Last administered on 01/03/17 08:23; Admin Dose 200 MG; Start 12/31/16 at 09:00 Dextrose (D5W) 1,000 ml @ 50 mls/hr Q20H IV Last administered on 01/03/17 12: 02; Admin Dose 50 MLS/HR; Start 01/02/17 at 14:30 TYLER ARZATE MD January 03, 2017 13:06
--- NOTE | 2017-01-03 14:24 | PN ---
Date/Time of Note Date/Time of Note DATE: 01/03/17 TIME: 14:12 Assessment/Plan VTE Prophylaxis VTE Prophylaxis Intervention: heparin Lines/Catheters IV Catheter Type (from Nrs): Saline Lock Urinary Cath still in place: Yes Reason Cath still needed: other (indicate) Assessment/Plan Assessment/Plan 1. Metabolic encephalopathy, likely uremic and hypernatremia related, increase IVF with D5W, hold lasix 2. Hypernatremia, D5W 3. Acute renal failure, on HD 4. S/p Proteus mirabilis urinary tract infection with bacteremia, sepsis, treated, off of antibiotics 5. S/p HCAP, poss aspiration. treated, off of antibiotics 6. Hypertension.on norvac/metoprolol 7. Paroxysmal Atrial fibrillation, on metoprolol 8. History of alcohol abuse. 9. Chronic Gout. 10. Stag horn calculus likely from uric acid 11. Chronic compression fractures with spinal stenosis 2/2 DJD of spine 12. Dysphagia. Continue aspiration precautions. Diet as per speech therapy. 13. DVT prophylaxis: heparin Subjective 24 Hr Interval Summary Free Text/Dictation alert but confused. no distress Exam/Review of Systems Vital Signs Vitals Vital Signs Date Time Temp Pulse Resp B/P Pulse Ox O2 Delivery O2 Flow Rate FiO2 01/03/17 12:08 78 01/03/17 11:36 97.9 20 163/78 98 01/02/17 20:02 Nasal Cannula 2.0 Intake and Output 01/02/17 01/02/17 01/03/17 15:00 23:00 07:00 Intake Total 50 ml Output Total 500 ml 100 ml Balance -500 ml -50 ml Exam Constitutional: alert, well developed Head: atraumatic, normocephalic Eyes: EOMI, nl conjunctiva, nl lids ENMT: nl external ears & nose, nl lips & teeth, nl nasal mucosa & septum Neck: non-tender, supple Respiratory: clear to auscultation, normal air movement, No congested cough, No crackles/rales, No diminished breath sounds, No intercostal retraction, No labored breathing, No other, No respirations, No tactile fremitus, No wheezing Cardiovascular: nl pulses, regular rate and rhythm, No S3, No S4, No bruits, No diastolic murmur, No edema, No gallop, No irregular rhythm, No jugular venous distention (JVD), No murmurs/extra sounds, No other, No rub, No systolic murmur Gastrointestinal: nl liver, spleen, non-tender, soft, No ascites, No bowel sounds, No distended, No firm, No hepatomegaly, No mass , No other, No rebound or guarding, No splenomegaly, No surgical scars, No tender Musculoskeletal: nl extremities to inspection Extremities: normal pulses, No calf tenderness, No clubbing, No cyanosis, No edema, No other, No palpable cord, No pitting pedal edema, No tenderness Neurological: IMPROVEMENT DIRECTOR II-XII intact, confused, nl speech, nl strength Results Result Diagram: 01/03/17 0620 01/03/17 0635 Results 24 hrs Laboratory Tests Test 01/03/17 06:20 01/03/17 06:35 White Blood Count 12.8 #H Red Blood Count 2.89 L Hemoglobin 8.5 L Hematocrit 27.6 L Mean Corpuscular Volume 95.5 Mean Corpuscular Hemoglobin 29.4 Mean Corpuscular Hemoglobin Concent 30.8 L Red Cell Distribution Width 14.7 H Platelet Count 379 Mean Platelet Volume 10.6 H Neutrophils % 81.6 H Lymphocytes % 9.5 L Monocytes % 6.0 Eosinophils % 1.6 Basophils % 0.5 Nucleated Red Blood Cells % 0.0 Neutrophils # 10.5 H Lymphocytes # 1.2 Monocytes # 0.8 Eosinophils # 0.2 Basophils # 0.1 Nucleated Red Blood Cells # 0.0 Sodium Level 156 H Potassium Level 4.7 Chloride Level 117 H Carbon Dioxide Level 25 Anion Gap 19 H Blood Urea Nitrogen 45 H Creatinine 7.22 H Glucose Level 98 Calcium Level 10.6 H Medications Medications Current Medications Ondansetron HCl (Zofran Inj) 4 mg Q6H PRN IV NAUSEA AND/OR VOMITING Last administered on 12/24/16 12:08; Admin Dose 4 MG; Start 12/10/16 at 18:00 Magnesium Hydroxide (Milk Of Mag) 30 ml DAILY PRN PO CONSTIPATION Last administered on 12/29/16 08:56; Admin Dose 30 ML; Start 12/10/16 at 18:00 Bisacodyl (Dulcolax) 5 mg DAILY PRN PO CONSTIPATION; Start 12/10/16 at 18:00 Famotidine (Pepcid) 20 mg DAILY PO Last administered on 01/03/17 08:24; Admin Dose 20 MG; Start 12/11/16 at 09:00 Hydralazine HCl (Apresoline) 10 mg Q6H PRN IV SBP>160 Last administered on 01/01 18:26; Admin Dose 10 MG; Start 12/10/16 at 18:00 Atorvastatin Calcium (Lipitor) 10 mg DAILY@21 PO Last administered on 22:13; Admin Dose 10 MG; Start 12/10/16 at 21:00 Heparin Sodium (Porcine) 5000 unit 5,000 unit BID SC Last administered on 09:14; Admin Dose 5,000 UNIT; Start 12/11/16 at 21:00 Diltiazem HCl (Cardizem-D5W 125 Mg/125 ml Drip) 125 ml @ 5 mls/hr TITRATE IV ; Start 12/16/16 at 22:45 Megestrol Acetate (Megace Susp) 400 mg BID PO Last administered on 12/31/16 22 :13; Admin Dose 400 MG; Start 12/17/16 at 13:00 Metoprolol Tartrate (Lopressor) 50 mg BID PO Last administered on 01/03/17 08: 24; Admin Dose 50 MG; Start 12/17/16 at 21:00 Polyethylene Glycol (Miralax) 17 gm BID PO Last administered on 12/31/16 22:13 ; Admin Dose 17 GM; Start 12/21/16 at 21:00 Miscellaneous Information 1 ea NOTE XX ; Start 12/21/16 at 17:30 Glucose (Glutose) 15 gm Q15M PRN PO DECREASED GLUCOSE; Start 12/21/16 at 17:30 Glucose (Glutose) 22.5 gm Q15M PRN PO DECREASED GLUCOSE; Start 12/21/16 at 17: 30 Dextrose (D50w Syringe) 25 ml Q15M PRN IV DECREASED GLUCOSE; Start 12/21/16 at 17:30 Dextrose (D50w Syringe) 50 ml Q15M PRN IV DECREASED GLUCOSE; Start 12/21/16 at 17:30 Glucagon (Glucagen) 1 mg Q15M PRN IM DECREASED GLUCOSE; Start 12/21/16 at 17:30 Glucose (Glutose) 15 gm Q15M PRN BUCCAL DECREASED GLUCOSE; Start 12/21/16 at 17 :30 Oxycodone HCl (Roxicodone) 10 mg Q6H PRN PO PAIN LEVEL 7-10 Last administered on 12/30/16 15:40; Admin Dose 10 MG; Start 12/25/16 at 13:00 Amlodipine Besylate (Norvasc) 5 mg BID PO Last administered on 01/03/17 08:24 ; Admin Dose 5 MG; Start 12/27/16 at 21:00 Amiodarone HCl 200 mg 200 mg DAILY PO Last administered on 01/03/17 08:23; Admin Dose 200 MG; Start 12/31/16 at 09:00 Dextrose (D5W) 1,000 ml @ 50 mls/hr Q20H IV Last administered on 01/03/17 12: 02; Admin Dose 50 MLS/HR; Start 01/02/17 at 14:30 MAURICE SAUCEDA MD January 03, 2017 14:23
[2017-01-03] MEDS ORDERED: METHYLPREDNISOLONE 4 MG TAB PO SCH (14:30)
[2017-01-03] MEDS ORDERED: METHYLPREDNISOLONE (MEDROL) DOSE PACK PO SCH (14:30)
[2017-01-03] MEDS: hydrALAzine 20 MG INJ IV PRN (15:35)
--- NOTE | 2017-01-03 17:18 | CONS ---
Date/Time of Note Date/Time of Note DATE: 01/03/17 TIME: 17:17 Assessment/Plan Assessment/Plan Chief Complaint/Hosp Course ID PROGRESS NOTE ABX DAY # OFF ABX Merrem s/p Zyvox 24H INTERVAL SUMMARY * STABLE OFF ABX: WBC elevated on STEROIDS * Clincally status quo = Awake, alert, responsive, confused, no fevers, NAD, pulls at lines, tubes and attempts to get OOB -> requires soft wrist restraints * RECENT EVENTS REVIEWED * pt had a HD on 12/29 and 12/30- then HD catheter has been discontinued * Mccormack catheter has been discontinued * S/p Right thoracentesis 12/31/16- 2.1 fluid removed PHYSICAL EXAMINATION: GENERAL: VSS, NAD, no fever HEENT: Unremarkable NECK: Trach-> midline CHEST: Equal chest rise bilaterally, without dyspnea on observation HEART: Pulse RRR ABDOMEN: Soft EXTREMITIES: Warm, SKIN: Warm, dry ID ASSESSMENT: 71 yo M w/ admitted with: 1. Sepsis w/ bacteremia on admission => Sepsis resolved 2. Proteus mirabilis urinary tract infection with bacteremia => RESOLVED 3. Acute kidney failure, possible chronic kidney disease. 4. Bilateral kidney stones, urology on the case = non-obstructive 5. HCAP, poss aspiration => TREATED w/ full course ABX 6. Atrial fibrillation. 7. Hypertension. 8. Chronic back pain with a CT of the abdomen and pelvis concerning for diskitis at T11/12 border and osteomyelitis. * MRI of thoracic spine on December 18 revealed degeneration versus infection over the posterior disk bulge; however, the examination was limited at that time because motion artifact and the patient's inability to cooperate 9. Acute on chronic kidney disease. 10. Encephalopathy=> Improved; however patient is confused 11, History of alcohol abuse ?dementia? ABX ALLERGIES: PCN, ADHESIVE, LATEX CURRENT ABX: # OFF ABX Merrem s/p Zyvox ID RECOMMENDATIONS: 1. Continue to observe the patient OFF ABX 2. Needs f/u with original spine surgeon -- back pain spinal stenosis . Problems: Consultation Date/Type/Reason Admit Date/Time December 10, 2016 at 16:57 Type of Consultation: ID Referring Provider: JACK JENNINGS VISUALLY IMPAIRED TEACHER Exam/Review of Systems Vital Signs Vitals Vital Signs Date Time Temp Pulse Resp B/P Pulse Ox O2 Delivery O2 Flow Rate FiO2 01/03/17 16:14 77 01/03/17 16:06 98.0 20 160/87 96 01/02/17 20:02 Nasal Cannula 2.0 Intake and Output 01/02/17 01/02/17 01/03/17 15:00 23:00 07:00 Intake Total 50 ml Output Total 500 ml 100 ml Balance -500 ml -50 ml Results Result Diagram: 01/03/17 0620 01/03/17 0635 Results 24 hrs Laboratory Tests Test 01/03/17 06:20 01/03/17 06:35 White Blood Count 12.8 #H Red Blood Count 2.89 L Hemoglobin 8.5 L Hematocrit 27.6 L Mean Corpuscular Volume 95.5 Mean Corpuscular Hemoglobin 29.4 Mean Corpuscular Hemoglobin Concent 30.8 L Red Cell Distribution Width 14.7 H Platelet Count 379 Mean Platelet Volume 10.6 H Neutrophils % 81.6 H Lymphocytes % 9.5 L Monocytes % 6.0 Eosinophils % 1.6 Basophils % 0.5 Nucleated Red Blood Cells % 0.0 Neutrophils # 10.5 H Lymphocytes # 1.2 Monocytes # 0.8 Eosinophils # 0.2 Basophils # 0.1 Nucleated Red Blood Cells # 0.0 Sodium Level 156 H Potassium Level 4.7 Chloride Level 117 H Carbon Dioxide Level 25 Anion Gap 19 H Blood Urea Nitrogen 45 H Creatinine 7.22 H Glucose Level 98 Calcium Level 10.6 H Medications Medications Current Medications Ondansetron HCl (Zofran Inj) 4 mg Q6H PRN IV NAUSEA AND/OR VOMITING Last administered on 12/24/16 12:08; Admin Dose 4 MG; Start 12/10/16 at 18:00 Magnesium Hydroxide (Milk Of Mag) 30 ml DAILY PRN PO CONSTIPATION Last administered on 12/29/16 08:56; Admin Dose 30 ML; Start 12/10/16 at 18:00 Bisacodyl (Dulcolax) 5 mg DAILY PRN PO CONSTIPATION; Start 12/10/16 at 18:00 Famotidine (Pepcid) 20 mg DAILY PO Last administered on 01/03/17 08:24; Admin Dose 20 MG; Start 12/11/16 at 09:00 Hydralazine HCl (Apresoline) 10 mg Q6H PRN IV SBP>160 Last administered on 01/03 15:35; Admin Dose 10 MG; Start 12/10/16 at 18:00 Atorvastatin Calcium (Lipitor) 10 mg DAILY@21 PO Last administered on 22:13; Admin Dose 10 MG; Start 12/10/16 at 21:00 Heparin Sodium (Porcine) 5000 unit 5,000 unit BID SC Last administered on 09:14; Admin Dose 5,000 UNIT; Start 12/11/16 at 21:00 Diltiazem HCl (Cardizem-D5W 125 Mg/125 ml Drip) 125 ml @ 5 mls/hr TITRATE IV ; Start 12/16/16 at 22:45 Megestrol Acetate (Megace Susp) 400 mg BID PO Last administered on 12/31/16 22 :13; Admin Dose 400 MG; Start 12/17/16 at 13:00 Metoprolol Tartrate (Lopressor) 50 mg BID PO Last administered on 01/03/17 08: 24; Admin Dose 50 MG; Start 12/17/16 at 21:00 Polyethylene Glycol (Miralax) 17 gm BID PO Last administered on 12/31/16 22:13 ; Admin Dose 17 GM; Start 12/21/16 at 21:00 Miscellaneous Information 1 ea NOTE XX ; Start 12/21/16 at 17:30 Glucose (Glutose) 15 gm Q15M PRN PO DECREASED GLUCOSE; Start 12/21/16 at 17:30 Glucose (Glutose) 22.5 gm Q15M PRN PO DECREASED GLUCOSE; Start 12/21/16 at 17: 30 Dextrose (D50w Syringe) 25 ml Q15M PRN IV DECREASED GLUCOSE; Start 12/21/16 at 17:30 Dextrose (D50w Syringe) 50 ml Q15M PRN IV DECREASED GLUCOSE; Start 12/21/16 at 17:30 Glucagon (Glucagen) 1 mg Q15M PRN IM DECREASED GLUCOSE; Start 12/21/16 at 17:30 Glucose (Glutose) 15 gm Q15M PRN BUCCAL DECREASED GLUCOSE; Start 12/21/16 at 17 :30 Oxycodone HCl (Roxicodone) 10 mg Q6H PRN PO PAIN LEVEL 7-10 Last administered on 12/30/16 15:40; Admin Dose 10 MG; Start 12/25/16 at 13:00 Amlodipine Besylate (Norvasc) 5 mg BID PO Last administered on 01/03/17 08:24 ; Admin Dose 5 MG; Start 12/27/16 at 21:00 Amiodarone HCl 200 mg 200 mg DAILY PO Last administered on 01/03/17 08:23; Admin Dose 200 MG; Start 12/31/16 at 09:00 Dextrose (D5W) 1,000 ml @ 100 mls/hr Q10H IV Last administered on 01/03/17 12 :02; Admin Dose 50 MLS/HR; Start 01/02/17 at 14:30 Celecoxib (Celebrex) 200 mg DAILY PO ; Start 01/04/17 at 09:00 Methylprednisolone (Medrol) 8 mg HS PO ; Start 01/04/17 at 21:00; Stop 01/04/17 at 21:01 Methylprednisolone (Medrol) 4 mg HS PO ; Start 01/05/17 at 21:00; Stop 01/07/17 at 21:01 Methylprednisolone (Medrol) 24 mg ONCE PO Last administered on 01/03/17 15:36 ; Admin Dose 24 MG; Start 01/03/17 at 14:30; Stop 01/03/17 at 23:45 RHONDA PETERSON NP January 03, 2017 17:18
[2017-01-03] MEDS: ATORVASTATIN 10 MG TAB PO SCH (20:42)
--- NOTE | 2017-01-03 20:43 | CONS ---
DATE OF ADMISSION: 12/10/2016 DATE OF CONSULTATION: 01/03/2017 TYPE OF CONSULTATION: Orthopedic surgical. HISTORY OF PRESENT ILLNESS: The patient is a 71-year-old male who was admitted on 12/10/2016 when lindsey alaniz came to the emergency room complaining of generalized weakness of several days' duration prior to his admission. Because of his weakness of muscles, he had a ground-level fall. He is also known to have multiple medical problems including hypertension, hyperlipidemia, gouty art hritis and prostate cancer which is under treatment. He also has a history of atrial fibrillation. During his workups, the MRI scan of the lumbosacral spine revealed spinal stenosis, and Orthopedic Surgery was consulted. It was rather difficult to induce his participation in history taking and physical examination. Acc ording to the patient, he was having low back pain for about 1 year, and his low back pain is usuall y worse when he stands up or walking and because of the pain sometimes was having difficulty with hi s ambulation. He was able to move both lower extremities even though there seems to be mild weakness in the right lower extremity. Sensation was intact. Deep tendon reflexes including knee jerk and ankle jerk wer e normal and equal bilaterally. Straight leg raising was negative up to 80 degrees. MRI scan of th e lumbosacral spine revealed spinal stenosis at multiple levels because of degenerative disk disease , facet arthropathy, ligamentum flavum hypertrophy causing this stenosis and also foraminal stenosis . It was most severe at the level of L4-L5, but there is stenosis at the level of L3-L4 and L2-L3. Also, chronic compression fracture of L1 was noted. DIAGNOSTIC IMPRESSION: Spinal stenosis from degenerative disk disease combined with facet joint art hropathy and ligamentum flavum hypertrophy causing this spinal stenosis, worst at the level of L4-L5 and also present at L2-L3 and L3-L4. RECOMMENDATIONS FOR MANAGEMENT: 1. Trial of conservative treatment with the Medrol Dosepak and nonsteroidal anti-inflammatory medic ations, and this has been ordered. 2. If he is still symptomatic after above recommended conservative treatment, then epidural injecti on as an outpatient can be considered. Dictated By: SOLO BECKER/NTS Conf#: [id number] DID#: [id number]
[2017-01-04] VITALS (12 sets, daily range): BP systolic 150–155; BP diastolic 69–80; PULSE 63–90; RESP 18–20
[2017-01-04 07:11] LABS: ADD SCAN DIFF NO
[2017-01-04 07:18] LABS: BASOPHILS % 0.1 % (0.0-2.0); HEMATOCRIT 29.6 % (42.0-52.0); HEMOGLOBIN 9.4 g/dl (14.0-18.0); LYMPHOCYTES # 0.7 10^3/ul (0.8-2.9); LYMPHOCYTES % 5.6 % (15.0-51.0); MEAN CORPUSCULAR HEMOGLOBIN 29.9 pg (29.0-33.0); MEAN CORPUSCULAR HGB CONC 31.8 g/dl (32.0-37.0); MEAN CORPUSCULAR VOLUME 94.3 fl (82.0-101.0); MEAN PLATELET VOLUME 10.9 fl (7.4-10.4); MONOCYTE # 0.2 10^3/ul (0.3-0.9); NEUTROPHIL # 10.7 10^3/ul (1.6-7.5); NEUTROPHILS % 90.8 % (39.0-77.0); PLATELET COUNT 400 10^3/UL (140-415); RED BLOOD COUNT 3.14 10^6/ul (4.70-6.10); RED CELL DISTRIBUTION WIDTH 14.8 % (11.5-14.5); WHITE BLOOD COUNT 11.8 10^3/ul (4.8-10.8)
[2017-01-04 07:36] LABS: POTASSIUM 5.4 mmol/L (3.5-5.1)
[2017-01-04 07:38] LABS: CREATININE 7.19 mg/dl (0.61-1.24)
[2017-01-04 07:39] LABS: CALCIUM 10.5 mg/dl (8.4-10.2)
[2017-01-04] MEDS: METHYLPREDNISOLONE 4 MG TAB PO SCH ×3 (08:27→19:05)
[2017-01-04] MEDS: AMIODARONE 200 MG TAB PO SCH (08:27)
[2017-01-04] MEDS: FAMOTIDINE 20 MG TAB PO SCH (08:27)
[2017-01-04] MEDS: CELECOXIB 200 MG CAP PO SCH (08:27)
[2017-01-04] MEDS: MEGESTROL (40 MG/ML) 10ML CUP PO SCH ×2 (08:27→21:29)
[2017-01-04] MEDS: AMLODIPINE 5 MG TAB PO SCH ×2 (08:28→21:29)
[2017-01-04] MEDS: METOPROLOL 50 MG TAB PO SCH ×2 (08:28→21:28)
[2017-01-04] MEDS: HEPARIN 5,000 UNIT/0.5 ML VIAL SC SCH ×2 (08:30→21:31)
[2017-01-04] MEDS: POLYETHYLENE GLYCOL 17 GM PACKET PO SCH ×2 (08:35→21:30)
[2017-01-04] MEDS ORDERED: NA POLYST SULFON 15 GM/60 ML BTL PO ONE (11:30)
--- NOTE | 2017-01-04 11:59 | PN ---
Date/Time of Note Date/Time of Note DATE: 01/04/17 TIME: 11:59 Assessment/Plan VTE Prophylaxis VTE Prophylaxis Intervention: SCD's Lines/Catheters IV [facility]from [facility] Urinary Cath still in place: No Assessment/Plan Assessment/Plan 71 yo M presented with sepsis 2/2 proteus from source now sp abx treatment. Hospital course complicated by HCAP sp abx, acute on chronic back pain (imaging with spinal stenosis), LIU requiring intermittent HD (renal still following) and toxic/metabolic encephalopathy which now precludes home discharge #metabolic encephalopathy attempting to wean pain meds, cont renal involvement for HD eval. #recent infections: ID following. sp abx for proteus UTI with resultant sepsis and HCAP +/- aspiration pn #pAF: cont bb #h/o EtOH abuse: out of withdrawal window #back pain: ortho on consult #dysphagia: speech following #DVT prophx: SCDs Subjective 24 Hr Interval Summary Free Text/Dictation Pt agitated, though pleasantly so. States he lives at home with his girlfriend. Long family meeting held with patient's sister who states patient actually lives alone and was highly functional/independent prior to admission. Exam/Review of Systems Vital Signs Vitals Vital Signs Date Time Temp Pulse Resp B/P Pulse Ox O2 Delivery O2 Flow Rate FiO2 01/04/17 08:11 89 01/04/17 07:32 98.0 20 150/73 98 01/03/17 20:00 Nasal Cannula 01/02/17 20:02 2.0 Intake and Output 01/03/17 01/03/17 01/04/17 14:59 22:59 06:59 Intake Total 850 ml 300 ml Output Total 1800 ml 750 ml Balance -950 ml -450 ml Exam laying in bed, nad, responds to questions intermittently no mrg lungs clear abd soft no le edema no rashes Results Result Diagram: 01/04/17 0640 01/04/17 0640 Results 24 hrs Laboratory Tests Test 01/04/17 06:40 White Blood Count 11.8 H Red Blood Count 3.14 L Hemoglobin 9.4 L Hematocrit 29.6 L Mean Corpuscular Volume 94.3 Mean Corpuscular Hemoglobin 29.9 Mean Corpuscular Hemoglobin Concent 31.8 L Red Cell Distribution Width 14.8 H Platelet Count 400 Mean Platelet Volume 10.9 H Neutrophils % 90.8 H Lymphocytes % 5.6 L Monocytes % 2.0 Eosinophils % 0.0 Basophils % 0.1 Nucleated Red Blood Cells % 0.0 Neutrophils # 10.7 H Lymphocytes # 0.7 L Monocytes # 0.2 L Eosinophils # 0.0 Basophils # 0.0 Nucleated Red Blood Cells # 0.0 Sodium Level 147 H Potassium Level 5.4 H Chloride Level 120 H Carbon Dioxide Level 23 Anion Gap 9 # Blood Urea Nitrogen 51 H Creatinine 7.19 H Glucose Level 141 # Calcium Level 10.5 H Medications Medications Current Medications Ondansetron HCl (Zofran Inj) 4 mg Q6H PRN IV NAUSEA AND/OR VOMITING Last administered on 12/24/16 12:08; Admin Dose 4 MG; Start 12/10/16 at 18:00 Magnesium Hydroxide (Milk Of Mag) 30 ml DAILY PRN PO CONSTIPATION Last administered on 12/29/16 08:56; Admin Dose 30 ML; Start 12/10/16 at 18:00 Bisacodyl (Dulcolax) 5 mg DAILY PRN PO CONSTIPATION; Start 12/10/16 at 18:00 Famotidine (Pepcid) 20 mg DAILY PO Last administered on 01/04/17 08:27; Admin Dose 20 MG; Start 12/11/16 at 09:00 Hydralazine HCl (Apresoline) 10 mg Q6H PRN IV SBP>160 Last administered on 01/03 15:35; Admin Dose 10 MG; Start 12/10/16 at 18:00 Atorvastatin Calcium (Lipitor) 10 mg DAILY@21 PO Last administered on 22:13; Admin Dose 10 MG; Start 12/10/16 at 21:00 Heparin Sodium (Porcine) 5000 unit 5,000 unit BID SC Last administered on 08:30; Admin Dose 5,000 UNIT; Start 12/11/16 at 21:00 Diltiazem HCl (Cardizem-D5W 125 Mg/125 ml Drip) 125 ml @ 5 mls/hr TITRATE IV ; Start 12/16/16 at 22:45 Megestrol Acetate (Megace Susp) 400 mg BID PO Last administered on 01/04/17 08 :27; Admin Dose 400 MG; Start 12/17/16 at 13:00 Metoprolol Tartrate (Lopressor) 50 mg BID PO Last administered on 01/04/17 08: 28; Admin Dose 50 MG; Start 12/17/16 at 21:00 Polyethylene Glycol (Miralax) 17 gm BID PO Last administered on 12/31/16 22:13 ; Admin Dose 17 GM; Start 12/21/16 at 21:00 Miscellaneous Information 1 ea NOTE XX ; Start 12/21/16 at 17:30 Glucose (Glutose) 15 gm Q15M PRN PO DECREASED GLUCOSE; Start 12/21/16 at 17:30 Glucose (Glutose) 22.5 gm Q15M PRN PO DECREASED GLUCOSE; Start 12/21/16 at 17: 30 Dextrose (D50w Syringe) 25 ml Q15M PRN IV DECREASED GLUCOSE; Start 12/21/16 at 17:30 Dextrose (D50w Syringe) 50 ml Q15M PRN IV DECREASED GLUCOSE; Start 12/21/16 at 17:30 Glucagon (Glucagen) 1 mg Q15M PRN IM DECREASED GLUCOSE; Start 12/21/16 at 17:30 Glucose (Glutose) 15 gm Q15M PRN BUCCAL DECREASED GLUCOSE; Start 12/21/16 at 17 :30 Oxycodone HCl (Roxicodone) 10 mg Q6H PRN PO PAIN LEVEL 7-10 Last administered on 12/30/16 15:40; Admin Dose 10 MG; Start 12/25/16 at 13:00 Amlodipine Besylate (Norvasc) 5 mg BID PO Last administered on 01/04/17 08:28 ; Admin Dose 5 MG; Start 12/27/16 at 21:00 Amiodarone HCl (Cordarone) 200 mg DAILY PO Last administered on 01/04/17 08:27 ; Admin Dose 200 MG; Start 12/31/16 at 09:00 Celecoxib (Celebrex) 200 mg DAILY PO Last administered on 01/04/17 08:27; Admin Dose 200 MG; Start 01/04/17 at 09:00 Methylprednisolone (Medrol) 8 mg HS PO ; Start 01/04/17 at 21:00; Stop 01/04/17 at 21:01 Methylprednisolone (Medrol) 4 mg HS PO ; Start 01/05/17 at 21:00; Stop 01/07/17 at 21:01 NETTA SALOMON MD January 04, 2017 11:59
[2017-01-04] MEDS ORDERED: LIDOCAINE 5% PATCH TD ONE (12:30)
[2017-01-04] MEDS: LIDOCAINE 5% PATCH TD SCH (13:16)
--- NOTE | 2017-01-04 13:30 | CONS ---
Date/Time of Note Date/Time of Note DATE: 01/04/17 TIME: 13:29 Assessment/Plan Assessment/Plan Additional Assessment/Plan Acute kidney injury with intermittent hemodialysis Preserved ejection fraction Status post fall Sepsis with bacteremia Paroxysmal atrial fibrillation, currently sinus rhythm History of hypertension Recent UTI Alcohol abuse -Blood pressure trend overall remains stable. Remains in sinus rhythm. Electrolytes and fluid management as per our nephrology colleagues. Consultation Date/Type/Reason Admit Date/Time December 10, 2016 at 16:57 Type of Consultation: cv Referring Provider: JACK JENNINGS NP 24 HR Interval Summary Free Text/Dictation Patient seen and examined. Exam/Review of Systems Vital Signs Vitals Vital Signs Date Time Temp Pulse Resp B/P Pulse Ox O2 Delivery O2 Flow Rate FiO2 01/04/17 12:10 98.0 80 20 154/75 98 01/03/17 20:00 Nasal Cannula 01/02/17 20:02 2.0 Intake and Output 01/03/17 01/03/17 01/04/17 15:00 23:00 07:00 Intake Total 850 ml 300 ml Output Total 1800 ml 750 ml Balance -950 ml -450 ml Exam Sleeping, no apparent distress Head: normocephalic Respiratory: other (Coarse breath sounds bilaterally, no wheezing) Cardiovascular: other (S1-S2 heard), regular rate and rhythm Gastrointestinal: bowel sounds, non-tender, soft Extremities: edema Results Result Diagram: 01/04/17 0640 01/04/17 0640 Results 24 hrs Laboratory Tests Test 01/04/17 06:40 White Blood Count 11.8 H Red Blood Count 3.14 L Hemoglobin 9.4 L Hematocrit 29.6 L Mean Corpuscular Volume 94.3 Mean Corpuscular Hemoglobin 29.9 Mean Corpuscular Hemoglobin Concent 31.8 L Red Cell Distribution Width 14.8 H Platelet Count 400 Mean Platelet Volume 10.9 H Neutrophils % 90.8 H Lymphocytes % 5.6 L Monocytes % 2.0 Eosinophils % 0.0 Basophils % 0.1 Nucleated Red Blood Cells % 0.0 Neutrophils # 10.7 H Lymphocytes # 0.7 L Monocytes # 0.2 L Eosinophils # 0.0 Basophils # 0.0 Nucleated Red Blood Cells # 0.0 Sodium Level 147 H Potassium Level 5.4 H Chloride Level 120 H Carbon Dioxide Level 23 Anion Gap 9 # Blood Urea Nitrogen 51 H Creatinine 7.19 H Glucose Level 141 # Calcium Level 10.5 H Medications Medications Current Medications Ondansetron HCl (Zofran Inj) 4 mg Q6H PRN IV NAUSEA AND/OR VOMITING Last administered on 12/24/16 12:08; Admin Dose 4 MG; Start 12/10/16 at 18:00 Magnesium Hydroxide (Milk Of Mag) 30 ml DAILY PRN PO CONSTIPATION Last administered on 12/29/16 08:56; Admin Dose 30 ML; Start 12/10/16 at 18:00 Bisacodyl (Dulcolax) 5 mg DAILY PRN PO CONSTIPATION; Start 12/10/16 at 18:00 Famotidine (Pepcid) 20 mg DAILY PO Last administered on 01/04/17 08:27; Admin Dose 20 MG; Start 12/11/16 at 09:00 Hydralazine HCl (Apresoline) 10 mg Q6H PRN IV SBP>160 Last administered on 01/03 15:35; Admin Dose 10 MG; Start 12/10/16 at 18:00 Atorvastatin Calcium (Lipitor) 10 mg DAILY@21 PO Last administered on 22:13; Admin Dose 10 MG; Start 12/10/16 at 21:00 Heparin Sodium (Porcine) 5000 unit 5,000 unit BID SC Last administered on 08:30; Admin Dose 5,000 UNIT; Start 12/11/16 at 21:00 Diltiazem HCl (Cardizem-D5W 125 Mg/125 ml Drip) 125 ml @ 5 mls/hr TITRATE IV ; Start 12/16/16 at 22:45 Megestrol Acetate (Megace Susp) 400 mg BID PO Last administered on 01/04/17 08 :27; Admin Dose 400 MG; Start 12/17/16 at 13:00 Metoprolol Tartrate (Lopressor) 50 mg BID PO Last administered on 01/04/17 08: 28; Admin Dose 50 MG; Start 12/17/16 at 21:00 Polyethylene Glycol (Miralax) 17 gm BID PO Last administered on 12/31/16 22:13 ; Admin Dose 17 GM; Start 12/21/16 at 21:00 Miscellaneous Information 1 ea NOTE XX ; Start 12/21/16 at 17:30 Glucose (Glutose) 15 gm Q15M PRN PO DECREASED GLUCOSE; Start 12/21/16 at 17:30 Glucose (Glutose) 22.5 gm Q15M PRN PO DECREASED GLUCOSE; Start 12/21/16 at 17: 30 Dextrose (D50w Syringe) 25 ml Q15M PRN IV DECREASED GLUCOSE; Start 12/21/16 at 17:30 Dextrose (D50w Syringe) 50 ml Q15M PRN IV DECREASED GLUCOSE; Start 12/21/16 at 17:30 Glucagon (Glucagen) 1 mg Q15M PRN IM DECREASED GLUCOSE; Start 12/21/16 at 17:30 Glucose (Glutose) 15 gm Q15M PRN BUCCAL DECREASED GLUCOSE; Start 12/21/16 at 17 :30 Oxycodone HCl (Roxicodone) 10 mg Q6H PRN PO PAIN LEVEL 7-10 Last administered on 12/30/16 15:40; Admin Dose 10 MG; Start 12/25/16 at 13:00 Amlodipine Besylate (Norvasc) 5 mg BID PO Last administered on 01/04/17 08:28 ; Admin Dose 5 MG; Start 12/27/16 at 21:00 Amiodarone HCl (Cordarone) 200 mg DAILY PO Last administered on 01/04/17 08:27 ; Admin Dose 200 MG; Start 12/31/16 at 09:00 Celecoxib (Celebrex) 200 mg DAILY PO Last administered on 01/04/17 08:27; Admin Dose 200 MG; Start 01/04/17 at 09:00 Methylprednisolone (Medrol) 8 mg HS PO ; Start 01/04/17 at 21:00; Stop 01/04/17 at 21:01 Methylprednisolone (Medrol) 4 mg HS PO ; Start 01/05/17 at 21:00; Stop 01/07/17 at 21:01 Lidocaine (Lidoderm) 1 patch DAILY TD Last administered on 01/04/17 13:16; Admin Dose 1 PATCH; Start 01/04/17 at 13:00 Zeyad Kelly DO January 04, 2017 13:30
--- NOTE | 2017-01-04 15:35 | RADRPT ---
PROCEDURE: XR Chest. CLINICAL INDICATION: Shortness of berath, , Fluid overload, CHF TECHNIQUE: Single frontal view of the chest was obtained. COMPARISON: X-ray from 12/31/2016 FINDINGS: The heart and mediastinum are within normal limits. There are low lung volumes with persistent diffuse haziness over the right lung, possibly due to a d iffuse infiltrate. There is a small left pleural effusion and retrocardiac opacity due to atelectasis, infiltrate, and / or effusion. The aortic arch is calcified. IMPRESSION: Low lung volumes with stable hazy opacity over the right lung, possibly due to a diffuse infiltrate. Small left pleural effusion and retrocardiac opacity due to atelectasis, infiltrate, and / or effusi on. Aortic atherosclerosis. RPTAT: EE Physician Blanco Date Time Electronically viewed and signed by Jez Berg Physician on 01/04/2017 15:35 RA/
--- NOTE | 2017-01-04 15:58 | CONS ---
Date/Time of Note Date/Time of Note DATE: 01/04/17 TIME: 15:53 Assessment/Plan Assessment/Plan Additional Assessment/Plan 1. Acute kidney injury, multifactorial, not improving despite being on IVF hydration, BUN/Cr persistently high ,.started on HD during this admission - now HD catheter discontinued we are monitoring as needed 2. Hyponatremia - improved 3. Status post fall, which was a mechanical fall, but likely due to the hyponatremia. CT brain is negative. 4. Possible history of chronic kidney disease secondary to hypertensive nephrosclerosis. 5. History of hypertension. 6. History of gout. 7. History of hyperlipidemia. 8. Atrial fibrillation, rate controlled. 9. History of alcohol abuse. 10. Thrombocytopenia secondary to alcohol abuse. 11. sepsis due to UTI and bacteremia with Blood cx and urine Cx growing proteus - follow up blood cx negative 12. Moderate pleural effusion s/p Throacentesis 12/31/2016- 2.21 L Fluid removed PLAN: pt had a HD on 12/29 and 12/30- then HD catheter has been discontinued S/p Right thoracentesis 12/31/16- 2.1 fluid removed Blood cx and Urine cx grew proteus - on IV abx - Follow up blood cx on 12/16/16 negative to date lasix has been stopped, pt is not eating well, will plan for D5 W x 1 liter then reassess in AM CXR has been ordred today to assess for CHF/Congestion kayexalate 15 gram PO x 1 dose now Ortho followed up on patient for his Back pain and debility avoid sedative, hypnotics will continue to follow up Consultation Date/Type/Reason Admit Date/Time December 10, 2016 at 16:57 Type of Consultation: NEPHROLOGY Referring Provider: JACK JENNINGS OBSTETRICAL TECH 24 HR Interval Summary Free Text/Dictation pt not eating well, on calorie count, BUN improved, Cr still high, K slightly high today, pt took half of kayexalae today Exam/Review of Systems Vital Signs Vitals Vital Signs Date Time Temp Pulse Resp B/P Pulse Ox O2 Delivery O2 Flow Rate FiO2 01/04/17 15:52 97.6 74 20 150/71 94 01/03/17 20:00 Nasal Cannula 01/02/17 20:02 2.0 Intake and Output 01/03/17 01/03/17 01/04/17 15:00 23:00 07:00 Intake Total 850 ml 300 ml Output Total 1800 ml 750 ml Balance -950 ml -450 ml Exam Sleeping, no apparent distress Head: normocephalic Respiratory: other (Coarse breath sounds bilaterally, no wheezing) Cardiovascular: other (S1-S2 heard), regular rate and rhythm Gastrointestinal: bowel sounds, non-tender, soft Extremities: edema Results Result Diagram: 01/04/17 0640 01/04/17 0640 Results 24 hrs Laboratory Tests Test 01/04/17 06:40 White Blood Count 11.8 H Red Blood Count 3.14 L Hemoglobin 9.4 L Hematocrit 29.6 L Mean Corpuscular Volume 94.3 Mean Corpuscular Hemoglobin 29.9 Mean Corpuscular Hemoglobin Concent 31.8 L Red Cell Distribution Width 14.8 H Platelet Count 400 Mean Platelet Volume 10.9 H Neutrophils % 90.8 H Lymphocytes % 5.6 L Monocytes % 2.0 Eosinophils % 0.0 Basophils % 0.1 Nucleated Red Blood Cells % 0.0 Neutrophils # 10.7 H Lymphocytes # 0.7 L Monocytes # 0.2 L Eosinophils # 0.0 Basophils # 0.0 Nucleated Red Blood Cells # 0.0 Sodium Level 147 H Potassium Level 5.4 H Chloride Level 120 H Carbon Dioxide Level 23 Anion Gap 9 # Blood Urea Nitrogen 51 H Creatinine 7.19 H Glucose Level 141 # Calcium Level 10.5 H Medications Medications Current Medications Ondansetron HCl (Zofran Inj) 4 mg Q6H PRN IV NAUSEA AND/OR VOMITING Last administered on 12/24/16 12:08; Admin Dose 4 MG; Start 12/10/16 at 18:00 Magnesium Hydroxide (Milk Of Mag) 30 ml DAILY PRN PO CONSTIPATION Last administered on 12/29/16 08:56; Admin Dose 30 ML; Start 12/10/16 at 18:00 Bisacodyl (Dulcolax) 5 mg DAILY PRN PO CONSTIPATION; Start 12/10/16 at 18:00 Famotidine (Pepcid) 20 mg DAILY PO Last administered on 01/04/17 08:27; Admin Dose 20 MG; Start 12/11/16 at 09:00 Hydralazine HCl (Apresoline) 10 mg Q6H PRN IV SBP>160 Last administered on 01/03 15:35; Admin Dose 10 MG; Start 12/10/16 at 18:00 Atorvastatin Calcium (Lipitor) 10 mg DAILY@21 PO Last administered on 22:13; Admin Dose 10 MG; Start 12/10/16 at 21:00 Heparin Sodium (Porcine) 5000 unit 5,000 unit BID SC Last administered on 08:30; Admin Dose 5,000 UNIT; Start 12/11/16 at 21:00 Diltiazem HCl (Cardizem-D5W 125 Mg/125 ml Drip) 125 ml @ 5 mls/hr TITRATE IV ; Start 12/16/16 at 22:45 Megestrol Acetate (Megace Susp) 400 mg BID PO Last administered on 01/04/17 08 :27; Admin Dose 400 MG; Start 12/17/16 at 13:00 Metoprolol Tartrate (Lopressor) 50 mg BID PO Last administered on 01/04/17 08: 28; Admin Dose 50 MG; Start 12/17/16 at 21:00 Polyethylene Glycol (Miralax) 17 gm BID PO Last administered on 12/31/16 22:13 ; Admin Dose 17 GM; Start 12/21/16 at 21:00 Miscellaneous Information 1 ea NOTE XX ; Start 12/21/16 at 17:30 Glucose (Glutose) 15 gm Q15M PRN PO DECREASED GLUCOSE; Start 12/21/16 at 17:30 Glucose (Glutose) 22.5 gm Q15M PRN PO DECREASED GLUCOSE; Start 12/21/16 at 17: 30 Dextrose (D50w Syringe) 25 ml Q15M PRN IV DECREASED GLUCOSE; Start 12/21/16 at 17:30 Dextrose (D50w Syringe) 50 ml Q15M PRN IV DECREASED GLUCOSE; Start 12/21/16 at 17:30 Glucagon (Glucagen) 1 mg Q15M PRN IM DECREASED GLUCOSE; Start 12/21/16 at 17:30 Glucose (Glutose) 15 gm Q15M PRN BUCCAL DECREASED GLUCOSE; Start 12/21/16 at 17 :30 Oxycodone HCl (Roxicodone) 10 mg Q6H PRN PO PAIN LEVEL 7-10 Last administered on 12/30/16 15:40; Admin Dose 10 MG; Start 12/25/16 at 13:00 Amlodipine Besylate (Norvasc) 5 mg BID PO Last administered on 01/04/17 08:28 ; Admin Dose 5 MG; Start 12/27/16 at 21:00 Amiodarone HCl (Cordarone) 200 mg DAILY PO Last administered on 01/04/17 08:27 ; Admin Dose 200 MG; Start 12/31/16 at 09:00 Celecoxib (Celebrex) 200 mg DAILY PO Last administered on 01/04/17 08:27; Admin Dose 200 MG; Start 01/04/17 at 09:00 Methylprednisolone (Medrol) 8 mg HS PO ; Start 01/04/17 at 21:00; Stop 01/04/17 at 21:01 Methylprednisolone (Medrol) 4 mg HS PO ; Start 01/05/17 at 21:00; Stop 01/07/17 at 21:01 Lidocaine 1 patch 1 patch DAILY TD Last administered on 01/04/17 13:16; Admin Dose 1 PATCH; Start 01/04/17 at 13:00 Dextrose (D5W) 1,000 ml @ 50 mls/hr Q20H ONCE IV ; Start 01/04/17 at 16:00; Stop 01/05/17 at 11:59 MADELYN MIRANDA MD January 04, 2017 15:58
[2017-01-04] MEDS ORDERED: DEXTROSE 5% 1,000 ML IV ONE (16:00)
--- NOTE | 2017-01-04 16:30 | PN ---
Date/Time of Note Date/Time of Note DATE: 01/04/17 TIME: 16:28 Assessment/Plan VTE Prophylaxis VTE Prophylaxis Intervention: SCD's Lines/Catheters [facility] Saline Lock Urinary Cath still in place: Yes Reason Cath still needed: urinary retention Assessment/Plan Chief Complaint/Hosp Course Problems: Assessment/Plan Dysphagia Failure to thrive Acute kidney injury Hypertension Gout Atrial fibrillation Plan: Nutrition consult in process for tube feed Speech therapy following follow up Barium swallow evaluation with speech therapy Subjective 24 Hr Interval Summary Free Text/Dictation * Course reviewed with RN * Patient seen and examined * still refusing to take medications but able to take pills without difficulty at times Exam/Review of Systems Vital Signs Vitals Vital Signs Date Time Temp Pulse Resp B/P Pulse Ox O2 Delivery O2 Flow Rate FiO2 01/04/17 16:08 76 01/04/17 15:52 97.6 20 150/71 94 01/03/17 20:00 Nasal Cannula 01/02/17 20:02 2.0 Intake and Output 01/03/17 01/03/17 01/04/17 15:00 23:00 07:00 Intake Total 850 ml 300 ml Output Total 1800 ml 750 ml Balance -950 ml -450 ml Exam Constitutional: frail Respiratory: diminished breath sounds, normal air movement Cardiovascular: nl pulses, regular rate and rhythm Gastrointestinal: non-tender, soft Musculoskeletal: nl extremities to inspection, nl gait and stance Extremities: normal pulses Results Result Diagram: 01/04/17 0640 01/04/17 0640 Results 24 hrs Laboratory Tests Test 01/04/17 06:40 White Blood Count 11.8 H Red Blood Count 3.14 L Hemoglobin 9.4 L Hematocrit 29.6 L Mean Corpuscular Volume 94.3 Mean Corpuscular Hemoglobin 29.9 Mean Corpuscular Hemoglobin Concent 31.8 L Red Cell Distribution Width 14.8 H Platelet Count 400 Mean Platelet Volume 10.9 H Neutrophils % 90.8 H Lymphocytes % 5.6 L Monocytes % 2.0 Eosinophils % 0.0 Basophils % 0.1 Nucleated Red Blood Cells % 0.0 Neutrophils # 10.7 H Lymphocytes # 0.7 L Monocytes # 0.2 L Eosinophils # 0.0 Basophils # 0.0 Nucleated Red Blood Cells # 0.0 Sodium Level 147 H Potassium Level 5.4 H Chloride Level 120 H Carbon Dioxide Level 23 Anion Gap 9 # Blood Urea Nitrogen 51 H Creatinine 7.19 H Glucose Level 141 # Calcium Level 10.5 H Medications Medications Current Medications Ondansetron HCl (Zofran Inj) 4 mg Q6H PRN IV NAUSEA AND/OR VOMITING Last administered on 12/24/16 12:08; Admin Dose 4 MG; Start 12/10/16 at 18:00 Magnesium Hydroxide (Milk Of Mag) 30 ml DAILY PRN PO CONSTIPATION Last administered on 12/29/16 08:56; Admin Dose 30 ML; Start 12/10/16 at 18:00 Bisacodyl (Dulcolax) 5 mg DAILY PRN PO CONSTIPATION; Start 12/10/16 at 18:00 Famotidine (Pepcid) 20 mg DAILY PO Last administered on 01/04/17 08:27; Admin Dose 20 MG; Start 12/11/16 at 09:00 Hydralazine HCl (Apresoline) 10 mg Q6H PRN IV SBP>160 Last administered on 01/03 15:35; Admin Dose 10 MG; Start 12/10/16 at 18:00 Atorvastatin Calcium (Lipitor) 10 mg DAILY@21 PO Last administered on 22:13; Admin Dose 10 MG; Start 12/10/16 at 21:00 Heparin Sodium (Porcine) 5000 unit 5,000 unit BID SC Last administered on 08:30; Admin Dose 5,000 UNIT; Start 12/11/16 at 21:00 Diltiazem HCl (Cardizem-D5W 125 Mg/125 ml Drip) 125 ml @ 5 mls/hr TITRATE IV ; Start 12/16/16 at 22:45 Megestrol Acetate (Megace Susp) 400 mg BID PO Last administered on 01/04/17 08 :27; Admin Dose 400 MG; Start 12/17/16 at 13:00 Metoprolol Tartrate (Lopressor) 50 mg BID PO Last administered on 01/04/17 08: 28; Admin Dose 50 MG; Start 12/17/16 at 21:00 Polyethylene Glycol (Miralax) 17 gm BID PO Last administered on 12/31/16 22:13 ; Admin Dose 17 GM; Start 12/21/16 at 21:00 Miscellaneous Information 1 ea NOTE XX ; Start 12/21/16 at 17:30 Glucose (Glutose) 15 gm Q15M PRN PO DECREASED GLUCOSE; Start 12/21/16 at 17:30 Glucose (Glutose) 22.5 gm Q15M PRN PO DECREASED GLUCOSE; Start 12/21/16 at 17: 30 Dextrose (D50w Syringe) 25 ml Q15M PRN IV DECREASED GLUCOSE; Start 12/21/16 at 17:30 Dextrose (D50w Syringe) 50 ml Q15M PRN IV DECREASED GLUCOSE; Start 12/21/16 at 17:30 Glucagon (Glucagen) 1 mg Q15M PRN IM DECREASED GLUCOSE; Start 12/21/16 at 17:30 Glucose (Glutose) 15 gm Q15M PRN BUCCAL DECREASED GLUCOSE; Start 12/21/16 at 17 :30 Oxycodone HCl (Roxicodone) 10 mg Q6H PRN PO PAIN LEVEL 7-10 Last administered on 12/30/16 15:40; Admin Dose 10 MG; Start 12/25/16 at 13:00 Amlodipine Besylate (Norvasc) 5 mg BID PO Last administered on 01/04/17 08:28 ; Admin Dose 5 MG; Start 12/27/16 at 21:00 Amiodarone HCl (Cordarone) 200 mg DAILY PO Last administered on 01/04/17 08:27 ; Admin Dose 200 MG; Start 12/31/16 at 09:00 Celecoxib (Celebrex) 200 mg DAILY PO Last administered on 01/04/17 08:27; Admin Dose 200 MG; Start 01/04/17 at 09:00 Methylprednisolone (Medrol) 8 mg HS PO ; Start 01/04/17 at 21:00; Stop 01/04/17 at 21:01 Methylprednisolone (Medrol) 4 mg HS PO ; Start 01/05/17 at 21:00; Stop 01/07/17 at 21:01 Lidocaine 1 patch 1 patch DAILY TD Last administered on 01/04/17 13:16; Admin Dose 1 PATCH; Start 01/04/17 at 13:00 Dextrose (D5W) 1,000 ml @ 50 mls/hr Q20H ONCE IV Last administered on 16:01; Admin Dose 50 MLS/HR; Start 01/04/17 at 16:00; Stop 01/05/17 at 11: 59 TYLER ARZATE MD January 04, 2017 16:30
[2017-01-04] MEDS ORDERED: METHYLPREDNISOLONE 4 MG TAB PO SCH (21:00)
[2017-01-04] MEDS: ATORVASTATIN 10 MG TAB PO SCH (21:28)
[2017-01-05] VITALS (14 sets, daily range): BP systolic 125–151; BP diastolic 60–74; PULSE 70–90; RESP 16–20
--- NOTE | 2017-01-05 00:32 | PN ---
DATE: 01/04/2017 INFECTIOUS DISEASE PROGRESS NOTE SUBJECTIVE: No events overnight. The patient is lethargic, lying comfortably in bed. No fevers. WBC today 11.8, platelets 400, neutrophils 90.8. BUN 51, creatinine 7.19. DIAGNOSTICS: Chest x-ray this morning revealed low lung volume with stable hazy opacity over the ri ght lung. ANTIMICROBIALS: Patient is off antibiotics. PHYSICAL EXAMINATION: GENERAL: This is a chronically ill-appearing, elderly man who is awake, in no distress. HEENT: Head atraumatic, normocephalic. Sclerae anicteric. Buccal mucosa dry. NECK: Supple, trachea midline. CHEST: Rise symmetrical. Breath sounds diminished to bases. HEART: S1, S2. ABDOMEN: Soft. Bowel tones present. EXTREMITIES: Without cyanosis. ASSESSMENT: 1. Status post sepsis with bacteremia secondary to urinary tract infection, treated. 2. Acute renal failure, status post hemodialysis. 3. History of ETOH abuse. 4. Severe decompensated state. 5. Back pain, ortho on case and so far no evidence for diskitis. 6. Atrial fibrillation and hypertension. 7. Status post pneumonia. PLAN: The patient remains stable off antibiotics. We will continue observing him and panculture p. r.n. Dictated By: CHERRIE JAUREGUI WEB EDITOR for AYAD RUIZ/RIKA Conf#: [id number] DID#: [id number]
[2017-01-05] MEDS: METHYLPREDNISOLONE 4 MG TAB PO SCH ×4 (07:30→20:53)
[2017-01-05] MEDS: MEGESTROL (40 MG/ML) 10ML CUP PO SCH ×2 (09:25→20:53)
[2017-01-05] MEDS: FAMOTIDINE 20 MG TAB PO SCH (09:26)
[2017-01-05] MEDS: AMLODIPINE 5 MG TAB PO SCH ×2 (09:26→20:54)
[2017-01-05] MEDS: CELECOXIB 200 MG CAP PO SCH (09:26)
[2017-01-05] MEDS: METOPROLOL 50 MG TAB PO SCH ×2 (09:26→20:53)
[2017-01-05] MEDS: AMIODARONE 200 MG TAB PO SCH (09:27)
[2017-01-05] MEDS: LIDOCAINE 5% PATCH TD SCH (09:27)
[2017-01-05] MEDS: POLYETHYLENE GLYCOL 17 GM PACKET PO SCH ×2 (09:27→20:53)
[2017-01-05] MEDS: HEPARIN 5,000 UNIT/0.5 ML VIAL SC SCH ×2 (09:51→20:54)
--- NOTE | 2017-01-05 10:10 | PN ---
Date/Time of Note Date/Time of Note DATE: 01/05/17 TIME: 10:09 Assessment/Plan VTE Prophylaxis VTE Prophylaxis Intervention: SCD's Lines/Catheters IV Catheter Type (from Nrs): Saline Lock Urinary Cath still in place: No Assessment/Plan Assessment/Plan 71 yo M presented with sepsis 2/2 proteus from source now sp abx treatment. Hospital course complicated by HCAP sp abx, acute on chronic back pain (imaging with spinal stenosis), LIU requiring intermittent HD (renal still following) and toxic/metabolic encephalopathy which now precludes home discharge #metabolic encephalopathy attempting to wean pain meds, cont renal involvement for HD eval. #dysphagia/poor PO tolerence: Attempted to reach pt's sister to talk about prospect of PEG placement, phone # listed in EMR goes to patient's home #recent infections: ID following. sp abx for proteus UTI with resultant sepsis and HCAP +/- aspiration pna #pAF: cont bb #h/o EtOH abuse: out of withdrawal window #back pain: ortho on consult #DVT prophx: SCDs Subjective 24 Hr Interval Summary Free Text/Dictation Pt less agitated this morning, requesting to get out of bed Per discussion with MANAGER WELDING team, still not tolerating PO very well, requiring modified textures and not inclined towards eating Exam/Review of Systems Vital Signs Vitals Vital Signs Date Time Temp Pulse Resp B/P Pulse Ox O2 Delivery O2 Flow Rate FiO2 01/05/17 09:03 78 01/05/17 07:42 98.0 20 148/72 98 01/03/17 20:00 Nasal Cannula 01/02/17 20:02 2.0 Intake and Output 01/04/17 01/04/17 01/05/17 15:00 23:00 07:00 Output Total 600 ml Balance -600 ml Exam laying in bed, nad no mrg lungs clear abd soft no rashes responds to questions appropriately Results Result Diagram: 01/04/17 0640 01/04/17 0640 Medications Medications Current Medications Ondansetron HCl (Zofran Inj) 4 mg Q6H PRN IV NAUSEA AND/OR VOMITING Last administered on 12/24/16 12:08; Admin Dose 4 MG; Start 12/10/16 at 18:00 Magnesium Hydroxide (Milk Of Mag) 30 ml DAILY PRN PO CONSTIPATION Last administered on 12/29/16 08:56; Admin Dose 30 ML; Start 12/10/16 at 18:00 Bisacodyl (Dulcolax) 5 mg DAILY PRN PO CONSTIPATION; Start 12/10/16 at 18:00 Famotidine (Pepcid) 20 mg DAILY PO Last administered on 01/05/17 09:26; Admin Dose 20 MG; Start 12/11/16 at 09:00 Hydralazine HCl (Apresoline) 10 mg Q6H PRN IV SBP>160 Last administered on 01/03 15:35; Admin Dose 10 MG; Start 12/10/16 at 18:00 Atorvastatin Calcium (Lipitor) 10 mg DAILY@21 PO Last administered on 21:28; Admin Dose 10 MG; Start 12/10/16 at 21:00 Heparin Sodium (Porcine) (Heparin (5000 Units/0.5 ml)) 5,000 unit BID SC Last administered on 01/05/17 09:51; Admin Dose 5,000 UNIT; Start 12/11/16 at 21:00 Megestrol Acetate (Megace Susp) 400 mg BID PO Last administered on 01/05/17 09 :25; Admin Dose 400 MG; Start 12/17/16 at 13:00 Metoprolol Tartrate (Lopressor) 50 mg BID PO Last administered on 01/05/17 09: 26; Admin Dose 50 MG; Start 12/17/16 at 21:00 Polyethylene Glycol (Miralax) 17 gm BID PO Last administered on 01/05/17 09:27 ; Admin Dose 17 GM; Start 12/21/16 at 21:00 Miscellaneous Information 1 ea NOTE XX ; Start 12/21/16 at 17:30 Glucose (Glutose) 15 gm Q15M PRN PO DECREASED GLUCOSE; Start 12/21/16 at 17:30 Glucose (Glutose) 22.5 gm Q15M PRN PO DECREASED GLUCOSE; Start 12/21/16 at 17: 30 Dextrose (D50w Syringe) 25 ml Q15M PRN IV DECREASED GLUCOSE; Start 12/21/16 at 17:30 Dextrose (D50w Syringe) 50 ml Q15M PRN IV DECREASED GLUCOSE; Start 12/21/16 at 17:30 Glucagon (Glucagen) 1 mg Q15M PRN IM DECREASED GLUCOSE; Start 12/21/16 at 17:30 Glucose (Glutose) 15 gm Q15M PRN BUCCAL DECREASED GLUCOSE; Start 12/21/16 at 17 :30 Oxycodone HCl (Roxicodone) 10 mg Q6H PRN PO PAIN LEVEL 7-10 Last administered on 12/30/16 15:40; Admin Dose 10 MG; Start 12/25/16 at 13:00 Amlodipine Besylate (Norvasc) 5 mg BID PO Last administered on 01/05/17 09:26 ; Admin Dose 5 MG; Start 12/27/16 at 21:00 Amiodarone HCl (Cordarone) 200 mg DAILY PO Last administered on 01/05/17 09:27 ; Admin Dose 200 MG; Start 12/31/16 at 09:00 Celecoxib (Celebrex) 200 mg DAILY PO Last administered on 01/05/17 09:26; Admin Dose 200 MG; Start 01/04/17 at 09:00 Methylprednisolone (Medrol) 4 mg HS PO ; Start 01/05/17 at 21:00; Stop 01/07/17 at 21:01 Lidocaine 1 patch 1 patch DAILY TD Last administered on 01/05/17 09:27; Admin Dose 1 PATCH; Start 01/04/17 at 13:00 Dextrose (D5W) 1,000 ml @ 50 mls/hr Q20H ONCE IV Last administered on 16:01; Admin Dose 50 MLS/HR; Start 01/04/17 at 16:00; Stop 01/05/17 at 11: 59 NETTA SALOMON MD January 05, 2017 10:10
--- NOTE | 2017-01-05 10:47 | PN ---
DATE: 01/05/2017 SUBJECTIVE: The patient is confused and he does have a history of prostate cancer status post post- radical prostatectomy years back. The patient on the CT scans, he did have right renal edema with m oderate right hydronephrosis and there was no radiopaque stone to explain this hydro. He does have a staghorn calculi lower pole of both kidneys. These, however, are not causing any obstruction and they are asymptomatic. The patient's urine culture on admission showed that he does have Proteus mi rabilis and also blood cultures were positive for the same. However, the blood cultures after that were negative and patient was treated for his infection. LABORATORY DATA: CBC is showing a white count of 11.8, hematocrit 29.6, hemoglobin of 9.4. The BUN is 51, creatinine 7.19. The patient is on hemodialysis. IMPRESSION: History of prostate cancer and right hydronephrosis, most likely related to infection. PLAN: The patient has been treated and basically he is in renal failure and he is on hemodialysis; therefore will just watch him and if there is any infection again, treat the infection. Dictated By: LAUREN GIL/RIKA Conf#: [id number] DID#: [id number]
[2017-01-05 12:22] LABS: CREATININE 7.57 mg/dl (0.61-1.24); POTASSIUM 5.3 mmol/L (3.5-5.1)
--- NOTE | 2017-01-05 13:18 | PN ---
Date/Time of Note Date/Time of Note DATE: 01/05/17 TIME: 13:15 Assessment/Plan VTE Prophylaxis VTE Prophylaxis Intervention: SCD's Lines/Catheters IV Catheter Type (from Nrs): Saline Lock Urinary Cath still in place: No Assessment/Plan Chief Complaint/Hosp Course Problems: Assessment/Plan Assessment * Dysphagia * Failure to thrive * Acute kidney injury * Hypertension Gout * History of Atrial fibrillation Plan * will follow up patient as needed while awaiting discussion of primary with sister for PEG placement Subjective 24 Hr Interval Summary Free Text/Dictation * Course reviewed with RN * Patient seen and examined * Still refusing medications Exam/Review of Systems Vital Signs Vitals Vital Signs Date Time Temp Pulse Resp B/P Pulse Ox O2 Delivery O2 Flow Rate FiO2 01/05/17 12:27 75 01/05/17 11:45 97.5 20 148/70 98 01/03/17 20:00 Nasal Cannula 01/02/17 20:02 2.0 Intake and Output 01/04/17 01/04/17 01/05/17 15:00 23:00 07:00 Output Total 600 ml Balance -600 ml Exam Constitutional: frail Neck: non-tender, supple Respiratory: clear to auscultation, diminished breath sounds, normal air movement Cardiovascular: nl pulses, regular rate and rhythm Gastrointestinal: bowel sounds, non-tender, soft, No rebound or guarding Musculoskeletal: nl extremities to inspection Results Result Diagram: 01/04/17 0640 01/05/17 1130 Results 24 hrs Laboratory Tests Test 01/05/17 11:30 Sodium Level 139 Potassium Level 5.3 H Chloride Level 109 # Carbon Dioxide Level 23 Anion Gap 12 Blood Urea Nitrogen 65 H Creatinine 7.57 H Glucose Level 108 Calcium Level 10.0 Medications Medications Current Medications Ondansetron HCl (Zofran Inj) 4 mg Q6H PRN IV NAUSEA AND/OR VOMITING Last administered on 12/24/16 12:08; Admin Dose 4 MG; Start 12/10/16 at 18:00 Magnesium Hydroxide (Milk Of Mag) 30 ml DAILY PRN PO CONSTIPATION Last administered on 12/29/16 08:56; Admin Dose 30 ML; Start 12/10/16 at 18:00 Bisacodyl (Dulcolax) 5 mg DAILY PRN PO CONSTIPATION; Start 12/10/16 at 18:00 Famotidine (Pepcid) 20 mg DAILY PO Last administered on 01/05/17 09:26; Admin Dose 20 MG; Start 12/11/16 at 09:00 Hydralazine HCl (Apresoline) 10 mg Q6H PRN IV SBP>160 Last administered on 01/03 15:35; Admin Dose 10 MG; Start 12/10/16 at 18:00 Atorvastatin Calcium (Lipitor) 10 mg DAILY@21 PO Last administered on 21:28; Admin Dose 10 MG; Start 12/10/16 at 21:00 Heparin Sodium (Porcine) (Heparin (5000 Units/0.5 ml)) 5,000 unit BID SC Last administered on 01/05/17 09:51; Admin Dose 5,000 UNIT; Start 12/11/16 at 21:00 Megestrol Acetate (Megace Susp) 400 mg BID PO Last administered on 01/05/17 09 :25; Admin Dose 400 MG; Start 12/17/16 at 13:00 Metoprolol Tartrate (Lopressor) 50 mg BID PO Last administered on 01/05/17 09: 26; Admin Dose 50 MG; Start 12/17/16 at 21:00 Polyethylene Glycol (Miralax) 17 gm BID PO Last administered on 01/05/17 09:27 ; Admin Dose 17 GM; Start 12/21/16 at 21:00 Miscellaneous Information 1 ea NOTE XX ; Start 12/21/16 at 17:30 Glucose (Glutose) 15 gm Q15M PRN PO DECREASED GLUCOSE; Start 12/21/16 at 17:30 Glucose (Glutose) 22.5 gm Q15M PRN PO DECREASED GLUCOSE; Start 12/21/16 at 17: 30 Dextrose (D50w Syringe) 25 ml Q15M PRN IV DECREASED GLUCOSE; Start 12/21/16 at 17:30 Dextrose (D50w Syringe) 50 ml Q15M PRN IV DECREASED GLUCOSE; Start 12/21/16 at 17:30 Glucagon (Glucagen) 1 mg Q15M PRN IM DECREASED GLUCOSE; Start 12/21/16 at 17:30 Glucose (Glutose) 15 gm Q15M PRN BUCCAL DECREASED GLUCOSE; Start 12/21/16 at 17 :30 Oxycodone HCl (Roxicodone) 10 mg Q6H PRN PO PAIN LEVEL 7-10 Last administered on 12/30/16 15:40; Admin Dose 10 MG; Start 12/25/16 at 13:00 Amlodipine Besylate (Norvasc) 5 mg BID PO Last administered on 01/05/17 09:26 ; Admin Dose 5 MG; Start 12/27/16 at 21:00 Amiodarone HCl (Cordarone) 200 mg DAILY PO Last administered on 01/05/17 09:27 ; Admin Dose 200 MG; Start 12/31/16 at 09:00 Celecoxib (Celebrex) 200 mg DAILY PO Last administered on 01/05/17 09:26; Admin Dose 200 MG; Start 01/04/17 at 09:00 Methylprednisolone (Medrol) 4 mg HS PO ; Start 01/05/17 at 21:00; Stop 01/07/17 at 21:01 Lidocaine (Lidoderm) 1 patch DAILY TD Last administered on 01/05/17 09:27; Admin Dose 1 PATCH; Start 01/04/17 at 13:00 TYLER ARZATE MD January 05, 2017 13:18
--- NOTE | 2017-01-05 13:26 | PN ---
Date/Time of Note Date/Time of Note DATE: 01/05/17 TIME: 13:25 Assessment/Plan VTE Prophylaxis VTE Prophylaxis Intervention: SCD's Lines/Catheters [facility] Saline Lock Urinary Cath still in place: No Assessment/Plan Assessment/Plan Acute kidney injury with intermittent hemodialysis Preserved ejection fraction Status post fall Sepsis with bacteremia Paroxysmal atrial fibrillation, currently sinus rhythm History of hypertension Recent UTI Alcohol abuse -Blood pressure trend overall remains stable. Remains in sinus rhythm. Electrolytes and fluid management as per our nephrology colleagues. Subjective 24 Hr Interval Summary Free Text/Dictation The patient with no change Exam/Review of Systems Vital Signs Vitals Vital Signs Date Time Temp Pulse Resp B/P Pulse Ox O2 Delivery O2 Flow Rate FiO2 01/05/17 12:27 75 01/05/17 11:45 97.5 20 148/70 98 01/03/17 20:00 Nasal Cannula 01/02/17 20:02 2.0 Intake and Output 01/04/17 01/04/17 01/05/17 15:00 23:00 07:00 Output Total 600 ml Balance -600 ml Results Result Diagram: 01/04/17 0640 01/05/17 1130 Results 24 hrs Laboratory Tests Test 01/05/17 11:30 Sodium Level 139 Potassium Level 5.3 H Chloride Level 109 # Carbon Dioxide Level 23 Anion Gap 12 Blood Urea Nitrogen 65 H Creatinine 7.57 H Glucose Level 108 Calcium Level 10.0 Medications Medications Current Medications Ondansetron HCl (Zofran Inj) 4 mg Q6H PRN IV NAUSEA AND/OR VOMITING Last administered on 12/24/16 12:08; Admin Dose 4 MG; Start 12/10/16 at 18:00 Magnesium Hydroxide (Milk Of Mag) 30 ml DAILY PRN PO CONSTIPATION Last administered on 12/29/16 08:56; Admin Dose 30 ML; Start 12/10/16 at 18:00 Bisacodyl (Dulcolax) 5 mg DAILY PRN PO CONSTIPATION; Start 12/10/16 at 18:00 Famotidine (Pepcid) 20 mg DAILY PO Last administered on 01/05/17 09:26; Admin Dose 20 MG; Start 12/11/16 at 09:00 Hydralazine HCl (Apresoline) 10 mg Q6H PRN IV SBP>160 Last administered on 01/03 15:35; Admin Dose 10 MG; Start 12/10/16 at 18:00 Atorvastatin Calcium (Lipitor) 10 mg DAILY@21 PO Last administered on 21:28; Admin Dose 10 MG; Start 12/10/16 at 21:00 Heparin Sodium (Porcine) (Heparin (5000 Units/0.5 ml)) 5,000 unit BID SC Last administered on 01/05/17 09:51; Admin Dose 5,000 UNIT; Start 12/11/16 at 21:00 Megestrol Acetate (Megace Susp) 400 mg BID PO Last administered on 01/05/17 09 :25; Admin Dose 400 MG; Start 12/17/16 at 13:00 Metoprolol Tartrate (Lopressor) 50 mg BID PO Last administered on 01/05/17 09: 26; Admin Dose 50 MG; Start 12/17/16 at 21:00 Polyethylene Glycol (Miralax) 17 gm BID PO Last administered on 01/05/17 09:27 ; Admin Dose 17 GM; Start 12/21/16 at 21:00 Miscellaneous Information 1 ea NOTE XX ; Start 12/21/16 at 17:30 Glucose (Glutose) 15 gm Q15M PRN PO DECREASED GLUCOSE; Start 12/21/16 at 17:30 Glucose (Glutose) 22.5 gm Q15M PRN PO DECREASED GLUCOSE; Start 12/21/16 at 17: 30 Dextrose (D50w Syringe) 25 ml Q15M PRN IV DECREASED GLUCOSE; Start 12/21/16 at 17:30 Dextrose (D50w Syringe) 50 ml Q15M PRN IV DECREASED GLUCOSE; Start 12/21/16 at 17:30 Glucagon (Glucagen) 1 mg Q15M PRN IM DECREASED GLUCOSE; Start 12/21/16 at 17:30 Glucose (Glutose) 15 gm Q15M PRN BUCCAL DECREASED GLUCOSE; Start 12/21/16 at 17 :30 Oxycodone HCl (Roxicodone) 10 mg Q6H PRN PO PAIN LEVEL 7-10 Last administered on 12/30/16 15:40; Admin Dose 10 MG; Start 12/25/16 at 13:00 Amlodipine Besylate (Norvasc) 5 mg BID PO Last administered on 01/05/17 09:26 ; Admin Dose 5 MG; Start 12/27/16 at 21:00 Amiodarone HCl (Cordarone) 200 mg DAILY PO Last administered on 01/05/17 09:27 ; Admin Dose 200 MG; Start 12/31/16 at 09:00 Celecoxib (Celebrex) 200 mg DAILY PO Last administered on 01/05/17 09:26; Admin Dose 200 MG; Start 01/04/17 at 09:00 Methylprednisolone (Medrol) 4 mg HS PO ; Start 01/05/17 at 21:00; Stop 01/07/17 at 21:01 Lidocaine (Lidoderm) 1 patch DAILY TD Last administered on 01/05/17 09:27; Admin Dose 1 PATCH; Start 01/04/17 at 13:00 RUPERT PEARSON MD January 05, 2017 13:26
[2017-01-05] MEDS ORDERED: DEXTROSE 5% 1,000 ML IV SCH (14:00)
--- NOTE | 2017-01-05 14:11 | CONS ---
Date/Time of Note Date/Time of Note DATE: 01/05/17 TIME: 14:10 Assessment/Plan Assessment/Plan Chief Complaint/Hosp Course SUBJECTIVE: No events overnight. The patient is lethargic, lying comfortably in bed. No fevers. ANTIMICROBIALS: Patient is off antibiotics. PHYSICAL EXAMINATION: GENERAL: This is a chronically ill-appearing, elderly man who is awake, in no distress. HEENT: Head atraumatic, normocephalic. Sclerae anicteric. Buccal mucosa dry. NECK: Supple, trachea midline. CHEST: Rise symmetrical. Breath sounds diminished to bases. HEART: S1, S2. ABDOMEN: Soft. Bowel tones present. EXTREMITIES: Without cyanosis. ASSESSMENT: 1. Status post sepsis with bacteremia secondary to urinary tract infection, treated. 2. Acute renal failure, status post hemodialysis. 3. History of ETOH abuse. 4. Severe decompensated state. 5. Back pain, ortho on case and so far no evidence for diskitis==> on steroids. 6. Atrial fibrillation and hypertension. 7. Status post pneumonia. PLAN: The patient remains stable off antibiotics. We will continue observing him and panculture p.r.n. staff Problems: Consultation Date/Type/Reason Admit Date/Time December 10, 2016 at 16:57 Type of Consultation: ID Referring Provider: JACK JENNINGS FILTER TENDER JELLY Exam/Review of Systems Vital Signs Vitals Vital Signs Date Time Temp Pulse Resp B/P Pulse Ox O2 Delivery O2 Flow Rate FiO2 01/05/17 12:27 75 01/05/17 11:45 97.5 20 148/70 98 01/03/17 20:00 Nasal Cannula 01/02/17 20:02 2.0 Intake and Output 01/04/17 01/04/17 01/05/17 15:00 23:00 07:00 Output Total 600 ml Balance -600 ml Results Result Diagram: 01/04/17 0640 01/05/17 1130 Results 24 hrs Laboratory Tests Test 01/05/17 11:30 Sodium Level 139 Potassium Level 5.3 H Chloride Level 109 # Carbon Dioxide Level 23 Anion Gap 12 Blood Urea Nitrogen 65 H Creatinine 7.57 H Glucose Level 108 Calcium Level 10.0 Medications Medications Current Medications Ondansetron HCl (Zofran Inj) 4 mg Q6H PRN IV NAUSEA AND/OR VOMITING Last administered on 12/24/16t 12:08; Admin Dose 4 MG; Start 12/10/16 at 18:00 Magnesium Hydroxide (Milk Of Mag) 30 ml DAILY PRN PO CONSTIPATION Last administered on 12/29/16 08:56; Admin Dose 30 ML; Start 12/10/16 at 18:00 Bisacodyl (Dulcolax) 5 mg DAILY PRN PO CONSTIPATION; Start 12/10/16 at 18:00 Famotidine (Pepcid) 20 mg DAILY PO Last administered on 01/05/17 09:26; Admin Dose 20 MG; Start 12/11/16 at 09:00 Hydralazine HCl (Apresoline) 10 mg Q6H PRN IV SBP>160 Last administered on 01/03 15:35; Admin Dose 10 MG; Start 12/10/16 at 18:00 Atorvastatin Calcium (Lipitor) 10 mg DAILY@21 PO Last administered on 21:28; Admin Dose 10 MG; Start 12/10/16 at 21:00 Heparin Sodium (Porcine) (Heparin (5000 Units/0.5 ml)) 5,000 unit BID SC Last administered on 01/05/17 09:51; Admin Dose 5,000 UNIT; Start 12/11/16 at 21:00 Megestrol Acetate (Megace Susp) 400 mg BID PO Last administered on 01/05/17 09 :25; Admin Dose 400 MG; Start 12/17/16 at 13:00 Metoprolol Tartrate (Lopressor) 50 mg BID PO Last administered on 01/05/17 09: 26; Admin Dose 50 MG; Start 12/17/16 at 21:00 Polyethylene Glycol (Miralax) 17 gm BID PO Last administered on 01/05/17 09:27 ; Admin Dose 17 GM; Start 12/21/16 at 21:00 Miscellaneous Information 1 ea NOTE XX ; Start 12/21/16 at 17:30 Glucose (Glutose) 15 gm Q15M PRN PO DECREASED GLUCOSE; Start 12/21/16 at 17:30 Glucose (Glutose) 22.5 gm Q15M PRN PO DECREASED GLUCOSE; Start 12/21/16 at 17: 30 Dextrose (D50w Syringe) 25 ml Q15M PRN IV DECREASED GLUCOSE; Start 12/21/16 at 17:30 Dextrose (D50w Syringe) 50 ml Q15M PRN IV DECREASED GLUCOSE; Start 12/21/16 at 17:30 Glucagon (Glucagen) 1 mg Q15M PRN IM DECREASED GLUCOSE; Start 12/21/16 at 17:30 Glucose (Glutose) 15 gm Q15M PRN BUCCAL DECREASED GLUCOSE; Start 12/21/16 at 17 :30 Amlodipine Besylate (Norvasc) 5 mg BID PO Last administered on 01/05/17 09:26 ; Admin Dose 5 MG; Start 12/27/16 at 21:00 Amiodarone HCl (Cordarone) 200 mg DAILY PO Last administered on 01/05/17 09:27 ; Admin Dose 200 MG; Start 12/31/16 at 09:00 Methylprednisolone (Medrol) 4 mg HS PO ; Start 01/05/17 at 21:00; Stop 01/07/17 at 21:01 Lidocaine (Lidoderm) 1 patch DAILY TD Last administered on 01/05/17 09:27; Admin Dose 1 PATCH; Start 01/04/17 at 13:00 Oxycodone HCl 10 mg 10 mg Q12H PRN PO PAIN LEVEL 7-10; Start 01/06/17 at 01:00 Dextrose (D5W) 1,000 ml @ 50 mls/hr Q20H IV ; Start 01/05/17 at 14:00; Stop 01/06/17 at 09:59 CHERRIE JAUREGUI NP January 05, 2017 14:10
[2017-01-05] MEDS ORDERED: HALOPERIDOL 5 MG INJ IV ONE (15:00)
--- NOTE | 2017-01-05 15:20 | PN ---
DATE: 01/05/2017 Considerable symptomatic relief with less pain involving his low back after taking Medrol Dosepak. Ortho followup can be done as an outpatient. Dictated By: SOLO BECKER/RIKA Conf#: [id number] DID#: [id number]
--- NOTE | 2017-01-05 17:45 | CONS ---
Date/Time of Note Date/Time of Note DATE: 01/05/17 TIME: 17:43 Assessment/Plan Assessment/Plan Additional Assessment/Plan 1. Acute kidney injury, multifactorial, not improving despite being on IVF hydration, BUN/Cr persistently high ,.started on HD during this admission - now HD catheter discontinued we are monitoring as needed 2. Hyponatremia - improved 3. Status post fall, which was a mechanical fall, but likely due to the hyponatremia. CT brain is negative. 4. Possible history of chronic kidney disease secondary to hypertensive nephrosclerosis. 5. History of hypertension. 6. History of gout. 7. History of hyperlipidemia. 8. Atrial fibrillation, rate controlled. 9. History of alcohol abuse. 10. Thrombocytopenia secondary to alcohol abuse. 11. sepsis due to UTI and bacteremia with Blood cx and urine Cx growing proteus - follow up blood cx negative 12. Moderate pleural effusion s/p Throacentesis 12/31/2016- 2.21 L Fluid removed PLAN: pt had a HD on 12/29 and 12/30- then HD catheter has been discontinued S/p Right thoracentesis 12/31/16- 2.1 fluid removed Blood cx and Urine cx grew proteus - on IV abx - Follow up blood cx on 12/16/16 negative to date lasix has been stopped, pt is not eating well, will plan for D5 W x 1 liter then reassess in AM CXR negative for pulmonary congestion, it showed basilr infiltrates avoid sedative, hypnotics- I discontinued Cerebrex due to hihg K and high Creatinine will continue to follow up Consultation Date/Type/Reason Admit Date/Time December 10, 2016 at 16:57 Type of Consultation: NEPHROLOGY Referring Provider: JACK JENNINGS COPIER FIELD SERVICE TECHNICIAN 24 HR Interval Summary Free Text/Dictation pt sleeping, very lethrargic, Refused to have ABG Exam/Review of Systems Vital Signs Vitals Vital Signs Date Time Temp Pulse Resp B/P Pulse Ox O2 Delivery O2 Flow Rate FiO2 01/05/17 16:19 73 01/05/17 15:55 98.0 20 125/74 98 01/03/17 20:00 Nasal Cannula 01/02/17 20:02 2.0 Intake and Output 01/04/17 01/04/17 01/05/17 15:00 23:00 07:00 Output Total 600 ml Balance -600 ml Results Result Diagram: 01/04/17 0640 01/05/17 1130 Results 24 hrs Laboratory Tests Test 01/05/17 11:30 Sodium Level 139 Potassium Level 5.3 H Chloride Level 109 # Carbon Dioxide Level 23 Anion Gap 12 Blood Urea Nitrogen 65 H Creatinine 7.57 H Glucose Level 108 Calcium Level 10.0 Medications Medications Current Medications Ondansetron HCl (Zofran Inj) 4 mg Q6H PRN IV NAUSEA AND/OR VOMITING Last administered on 12/24/16 12:08; Admin Dose 4 MG; Start 12/10/16 at 18:00 Magnesium Hydroxide (Milk Of Mag) 30 ml DAILY PRN PO CONSTIPATION Last administered on 12/29/16 08:56; Admin Dose 30 ML; Start 12/10/16 at 18:00 Bisacodyl (Dulcolax) 5 mg DAILY PRN PO CONSTIPATION; Start 12/10/16 at 18:00 Famotidine (Pepcid) 20 mg DAILY PO Last administered on 01/05/17 09:26; Admin Dose 20 MG; Start 12/11/16 at 09:00 Hydralazine HCl (Apresoline) 10 mg Q6H PRN IV SBP>160 Last administered on 01/03 15:35; Admin Dose 10 MG; Start 12/10/16 at 18:00 Atorvastatin Calcium (Lipitor) 10 mg DAILY@21 PO Last administered on 21:28; Admin Dose 10 MG; Start 12/10/16 at 21:00 Heparin Sodium (Porcine) (Heparin (5000 Units/0.5 ml)) 5,000 unit BID SC Last administered on 01/05/17 09:51; Admin Dose 5,000 UNIT; Start 12/11/16 at 21:00 Megestrol Acetate (Megace Susp) 400 mg BID PO Last administered on 01/05/17 09 :25; Admin Dose 400 MG; Start 12/17/16 at 13:00 Metoprolol Tartrate (Lopressor) 50 mg BID PO Last administered on 01/05/17 09: 26; Admin Dose 50 MG; Start 12/17/16 at 21:00 Polyethylene Glycol (Miralax) 17 gm BID PO Last administered on 01/05/17 09:27 ; Admin Dose 17 GM; Start 12/21/16 at 21:00 Miscellaneous Information 1 ea NOTE XX ; Start 12/21/16 at 17:30 Glucose (Glutose) 15 gm Q15M PRN PO DECREASED GLUCOSE; Start 12/21/16 at 17:30 Glucose (Glutose) 22.5 gm Q15M PRN PO DECREASED GLUCOSE; Start 12/21/16 at 17: 30 Dextrose (D50w Syringe) 25 ml Q15M PRN IV DECREASED GLUCOSE; Start 12/21/16 at 17:30 Dextrose (D50w Syringe) 50 ml Q15M PRN IV DECREASED GLUCOSE; Start 12/21/16 at 17:30 Glucagon (Glucagen) 1 mg Q15M PRN IM DECREASED GLUCOSE; Start 12/21/16 at 17:30 Glucose (Glutose) 15 gm Q15M PRN BUCCAL DECREASED GLUCOSE; Start 12/21/16 at 17 :30 Amlodipine Besylate (Norvasc) 5 mg BID PO Last administered on 01/05/17 09:26 ; Admin Dose 5 MG; Start 12/27/16 at 21:00 Amiodarone HCl (Cordarone) 200 mg DAILY PO Last administered on 01/05/17 09:27 ; Admin Dose 200 MG; Start 12/31/16 at 09:00 Methylprednisolone (Medrol) 4 mg HS PO ; Start 01/05/17 at 21:00; Stop 01/07/17 at 21:01 Lidocaine (Lidoderm) 1 patch DAILY TD Last administered on 01/05/17 09:27; Admin Dose 1 PATCH; Start 01/04/17 at 13:00 Oxycodone HCl 10 mg 10 mg Q12H PRN PO PAIN LEVEL 7-10; Start 01/06/17 at 01:00 Dextrose (D5W) 1,000 ml @ 50 mls/hr Q20H IV Last administered on 01/05/17 14: 23; Admin Dose 50 MLS/HR; Start 01/05/17 at 14:00; Stop 01/06/17 at 09:59 MADELYN MIRANDA MD January 05, 2017 17:45
[2017-01-05] MEDS: ATORVASTATIN 10 MG TAB PO SCH (20:53)
[2017-01-06] VITALS (15 sets, daily range): BP systolic 100–144; BP diastolic 53–100; PULSE 72–85; RESP 16–20
[2017-01-06] MEDS ORDERED: oxyCODONE 5 MG TAB PO PRN (01:00)
[2017-01-06] MEDS: METHYLPREDNISOLONE 4 MG TAB PO SCH ×3 (07:30→20:35)
[2017-01-06 08:11] LABS: CALCIUM 9.3 mg/dl (8.4-10.2); CREATININE 7.29 mg/dl (0.61-1.24); POTASSIUM 4.8 mmol/L (3.5-5.1)
[2017-01-06] MEDS: AMIODARONE 200 MG TAB PO SCH (09:00)
[2017-01-06] MEDS: METOPROLOL 50 MG TAB PO SCH ×2 (09:00→20:35)
[2017-01-06] MEDS: FAMOTIDINE 20 MG TAB PO SCH (09:00)
[2017-01-06] MEDS: LIDOCAINE 5% PATCH TD SCH (09:00)
[2017-01-06] MEDS ORDERED: HYDROCODONE/APAP (10/325) TAB PO PRN (09:00)
[2017-01-06] MEDS: AMLODIPINE 5 MG TAB PO SCH ×2 (09:00→20:36)
[2017-01-06] MEDS: POLYETHYLENE GLYCOL 17 GM PACKET PO SCH ×2 (09:00→20:36)
[2017-01-06] MEDS: HEPARIN 5,000 UNIT/0.5 ML VIAL SC SCH ×2 (09:00→20:36)
--- NOTE | 2017-01-06 10:13 | PN ---
Date/Time of Note Date/Time of Note DATE: 01/06/17 TIME: 10:11 Assessment/Plan VTE Prophylaxis VTE Prophylaxis Intervention: SCD's Lines/Catheters IV Catheter Type (from Nrs): Peripheral IV Urinary Cath still in place: No Assessment/Plan Assessment/Plan Assessment/Plan 71 yo M presented with sepsis 2/2 proteus from source now sp abx treatment. Hospital course complicated by HCAP sp abx, acute on chronic back pain (imaging with spinal stenosis), [facility]U requiring intermittent HD (renal still following) and toxic/metabolic encephalopathy which now precludes home discharge Patient now more awake than in past 2 days but is also quite agitated/angry #metabolic encephalopathy/agitation attempting to wean pain meds-->change oxy to apap/hydrocodone cont renal involvement for HD eval. haldol PRN agitation cont medrol taper #dysphagia/poor PO tolerance: spoke with patient's sister yesterday #recent infections: ID following. sp abx for proteus UTI with resultant sepsis and HCAP +/- aspiration pna #pAF: cont bb, amio. discontinue tele #h/o EtOH abuse: out of withdrawal window #back pain: ortho on consult #DVT prophx: SCDs, SQH plan: xfer from tele to med surg as no need for tele given HR well controlled for past 3 days on current CV regimen Subjective 24 Hr Interval Summary Free Text/Dictation Pt much more awake than in recent days. very agitated, now in restraints. Refused my exam this AM. Stating "Do you understand Samoan? I told you to go away." Exam/Review of Systems Vital Signs Vitals Vital Signs Date Time Temp Pulse Resp B/P Pulse Ox O2 Delivery O2 Flow Rate FiO2 01/06/17 08:01 77 01/06/17 07:22 98.3 18 110/55 96 01/03/17 20:00 Nasal Cannula 01/02/17 20:02 2.0 Intake and Output 01/05/17 01/05/17 01/06/17 15:00 23:00 07:00 Intake Total 1000 ml 400 ml Output Total 500 ml 250 ml Balance 1000 ml -100 ml -250 ml Exam limited exam as pt refused agitated no rashes respirations non labored no rashes on exposed skin no gross abd distension Results Result Diagram: 01/04/17 0640 01/06/17 0640 Results 24 hrs Laboratory Tests Test 01/05/17 11:30 01/06/17 06:40 Sodium Level 139 145 H Potassium Level 5.3 H 4.8 Chloride Level 109 # 116 H Carbon Dioxide Level 23 22 Anion Gap 12 12 Blood Urea Nitrogen 65 H 80 H Creatinine 7.57 H 7.29 H Glucose Level 108 92 Calcium Level 10.0 9.3 Medications Medications Current Medications Ondansetron HCl (Zofran Inj) 4 mg Q6H PRN IV NAUSEA AND/OR VOMITING Last administered on 12/24/16 12:08; Admin Dose 4 MG; Start 12/10/16 at 18:00 Magnesium Hydroxide (Milk Of Mag) 30 ml DAILY PRN PO CONSTIPATION Last administered on 12/29/16 08:56; Admin Dose 30 ML; Start 12/10/16 at 18:00 Bisacodyl (Dulcolax) 5 mg DAILY PRN PO CONSTIPATION; Start 12/10/16 at 18:00 Famotidine (Pepcid) 20 mg DAILY PO Last administered on 01/05/17 09:26; Admin Dose 20 MG; Start 12/11/16 at 09:00 Atorvastatin Calcium (Lipitor) 10 mg DAILY@21 PO Last administered on 21:28; Admin Dose 10 MG; Start 12/10/16 at 21:00 Heparin Sodium (Porcine) (Heparin (5000 Units/0.5 ml)) 5,000 unit BID SC Last administered on 01/05/17 09:51; Admin Dose 5,000 UNIT; Start 12/11/16 at 21:00 Metoprolol Tartrate (Lopressor) 50 mg BID PO Last administered on 01/05/17 09: 26; Admin Dose 50 MG; Start 12/17/16 at 21:00 Polyethylene Glycol (Miralax) 17 gm BID PO Last administered on 01/05/17 09:27 ; Admin Dose 17 GM; Start 12/21/16 at 21:00 Miscellaneous Information 1 ea NOTE XX ; Start 12/21/16 at 17:30 Glucose (Glutose) 15 gm Q15M PRN PO DECREASED GLUCOSE; Start 12/21/16 at 17:30 Glucose (Glutose) 22.5 gm Q15M PRN PO DECREASED GLUCOSE; Start 12/21/16 at 17: 30 Dextrose (D50w Syringe) 25 ml Q15M PRN IV DECREASED GLUCOSE; Start 12/21/16 at 17:30 Dextrose (D50w Syringe) 50 ml Q15M PRN IV DECREASED GLUCOSE; Start 12/21/16 at 17:30 Glucagon (Glucagen) 1 mg Q15M PRN IM DECREASED GLUCOSE; Start 12/21/16 at 17:30 Glucose (Glutose) 15 gm Q15M PRN BUCCAL DECREASED GLUCOSE; Start 12/21/16 at 17 :30 Amlodipine Besylate (Norvasc) 5 mg BID PO Last administered on 01/05/17 09:26 ; Admin Dose 5 MG; Start 12/27/16 at 21:00 Amiodarone HCl (Cordarone) 200 mg DAILY PO Last administered on 01/05/17 09:27 ; Admin Dose 200 MG; Start 12/31/16 at 09:00 Methylprednisolone (Medrol) 4 mg HS PO ; Start 01/05/17 at 21:00; Stop 01/07/17 at 21:01 Lidocaine (Lidoderm) 1 patch DAILY TD Last administered on 01/05/17 09:27; Admin Dose 1 PATCH; Start 01/04/17 at 13:00 Acetaminophen/ Hydrocodone Bitart ([place] (10)) 1 tab Q6H PRN PO PAIN LEVEL 6-10; Start 01/06/17 at 09:00 Procedures Procedures Cr 7s NETTA SALOMON MD Jan 06, 2017 10:13
--- NOTE | 2017-01-06 12:59 | PN ---
Date/Time of Note Date/Time of Note DATE: 01/06/17 TIME: 12:58 Assessment/Plan VTE Prophylaxis VTE Prophylaxis Intervention: SCD's Lines/Catheters IV Catheter Type (from Nrs): Peripheral IV Urinary Cath still in place: No Assessment/Plan Assessment/Plan Acute kidney injury with intermittent hemodialysis Preserved ejection fraction Status post fall Sepsis with bacteremia Paroxysmal atrial fibrillation, currently sinus rhythm History of hypertension Recent UTI Alcohol abuse -Blood pressure trend overall remains stable. Remains in sinus rhythm. Electrolytes and fluid management as per our nephrology colleagues. Subjective 24 Hr Interval Summary Free Text/Dictation The patient with no cahgne Exam/Review of Systems Vital Signs Vitals Vital Signs Date Time Temp Pulse Resp B/P Pulse Ox O2 Delivery O2 Flow Rate FiO2 01/06/17 12:55 85 01/06/17 11:23 97.8 18 139/63 94 01/03/17 20:00 Nasal Cannula 01/02/17 20:02 2.0 Intake and Output 01/05/17 01/05/17 01/06/17 15:00 23:00 07:00 Intake Total 1000 ml 400 ml Output Total 500 ml 250 ml Balance 1000 ml -100 ml -250 ml Results Result Diagram: 01/04/17 0640 01/06/17 0640 Results 24 hrs Laboratory Tests Test 01/06/17 06:40 Sodium Level 145 H Potassium Level 4.8 Chloride Level 116 H Carbon Dioxide Level 22 Anion Gap 12 Blood Urea Nitrogen 80 H Creatinine 7.29 H Glucose Level 92 Calcium Level 9.3 Medications Medications Current Medications Ondansetron HCl (Zofran Inj) 4 mg Q6H PRN IV NAUSEA AND/OR VOMITING Last administered on 12/24/16 12:08; Admin Dose 4 MG; Start 12/10/16 at 18:00 Magnesium Hydroxide (Milk Of Mag) 30 ml DAILY PRN PO CONSTIPATION Last administered on 12/29/16 08:56; Admin Dose 30 ML; Start 12/10/16 at 18:00 Bisacodyl (Dulcolax) 5 mg DAILY PRN PO CONSTIPATION; Start 12/10/16 at 18:00 Famotidine (Pepcid) 20 mg DAILY PO Last administered on 01/05/17 09:26; Admin Dose 20 MG; Start 12/11/16 at 09:00 Atorvastatin Calcium (Lipitor) 10 mg DAILY@21 PO Last administered on 21:28; Admin Dose 10 MG; Start 12/10/16 at 21:00 Heparin Sodium (Porcine) (Heparin (5000 Units/0.5 ml)) 5,000 unit BID SC Last administered on 01/05/17 09:51; Admin Dose 5,000 UNIT; Start 12/11/16 at 21:00 Metoprolol Tartrate (Lopressor) 50 mg BID PO Last administered on 01/05/17 09: 26; Admin Dose 50 MG; Start 12/17/16 at 21:00 Polyethylene Glycol (Miralax) 17 gm BID PO Last administered on 01/05/17 09:27 ; Admin Dose 17 GM; Start 12/21/16 at 21:00 Miscellaneous Information 1 ea NOTE XX ; Start 12/21/16 at 17:30 Glucose (Glutose) 15 gm Q15M PRN PO DECREASED GLUCOSE; Start 12/21/16 at 17:30 Glucose (Glutose) 22.5 gm Q15M PRN PO DECREASED GLUCOSE; Start 12/21/16 at 17: 30 Dextrose (D50w Syringe) 25 ml Q15M PRN IV DECREASED GLUCOSE; Start 12/21/16 at 17:30 Dextrose (D50w Syringe) 50 ml Q15M PRN IV DECREASED GLUCOSE; Start 12/21/16 at 17:30 Glucagon (Glucagen) 1 mg Q15M PRN IM DECREASED GLUCOSE; Start 12/21/16 at 17:30 Glucose (Glutose) 15 gm Q15M PRN BUCCAL DECREASED GLUCOSE; Start 12/21/16 at 17 :30 Amlodipine Besylate (Norvasc) 5 mg BID PO Last administered on 01/05/17 09:26 ; Admin Dose 5 MG; Start 12/27/16 at 21:00 Amiodarone HCl (Cordarone) 200 mg DAILY PO Last administered on 01/05/17 09:27 ; Admin Dose 200 MG; Start 12/31/16 at 09:00 Methylprednisolone (Medrol) 4 mg HS PO ; Start 01/05/17 at 21:00; Stop 01/07/17 at 21:01 Lidocaine (Lidoderm) 1 patch DAILY TD Last administered on 01/05/17 09:27; Admin Dose 1 PATCH; Start 01/04/17 at 13:00 Acetaminophen/ Hydrocodone Bitart ([place] (10/325)) 1 tab Q6H PRN PO PAIN LEVEL 6-10; Start 01/06/17 at 09:00 RUPERT PEARSON MD Jan 06, 2017 12:58
--- NOTE | 2017-01-06 14:28 | CONS ---
Date/Time of Note Date/Time of Note DATE: 01/06/17 TIME: 14:27 Assessment/Plan Assessment/Plan Chief Complaint/Hosp Course SUBJECTIVE: No events overnight. The patient is lethargic and confused, lying comfortably in bed. No fevers. ANTIMICROBIALS: Patient is off antibiotics. PHYSICAL EXAMINATION: GENERAL: This is a chronically ill-appearing, elderly man who is awake, in no distress. HEENT: Head atraumatic, normocephalic. Sclerae anicteric. Buccal mucosa dry. NECK: Supple, trachea midline. CHEST: Rise symmetrical. Breath sounds diminished to bases. HEART: S1, S2. ABDOMEN: Soft. Bowel tones present. EXTREMITIES: Without cyanosis. ASSESSMENT: 1. Status post sepsis with bacteremia secondary to urinary tract infection, treated. 2. Acute renal failure, status post hemodialysis. 3. History of ETOH abuse. 4. Severe decompensated state. 5. Back pain, ortho on case and so far no evidence for diskitis==> on steroids. 6. Atrial fibrillation and hypertension. 7. Status post pneumonia. PLAN: The patient remains stable, off antibiotics. ho rec-s noted. We will continue observing him and panculture p.r.n. staff Problems: Consultation Date/Type/Reason Admit Date/Time December 10, 2016 at 16:57 Type of Consultation: id Referring Provider: JACK JENNINGS NP Exam/Review of Systems Vital Signs Vitals Vital Signs Date Time Temp Pulse Resp B/P Pulse Ox O2 Delivery O2 Flow Rate FiO2 01/06/17 12:55 85 01/06/17 11:23 97.8 18 139/63 94 01/03/17 20:00 Nasal Cannula 01/02/17 20:02 2.0 Intake and Output 01/05/17 01/05/17 01/06/17 15:00 23:00 07:00 Intake Total 1000 ml 400 ml Output Total 500 ml 250 ml Balance 1000 ml -100 ml -250 ml Results Result Diagram: 01/04/17 0640 01/06/17 0640 Results 24 hrs Laboratory Tests Test 01/06/17 06:40 Sodium Level 145 H Potassium Level 4.8 Chloride Level 116 H Carbon Dioxide Level 22 Anion Gap 12 Blood Urea Nitrogen 80 H Creatinine 7.29 H Glucose Level 92 Calcium Level 9.3 Medications Medications Current Medications Ondansetron HCl (Zofran Inj) 4 mg Q6H PRN IV NAUSEA AND/OR VOMITING Last administered on 12/24/16 12:08; Admin Dose 4 MG; Start 12/10/16 at 18:00 Magnesium Hydroxide (Milk Of Mag) 30 ml DAILY PRN PO CONSTIPATION Last administered on 12/29/16 08:56; Admin Dose 30 ML; Start 12/10/16 at 18:00 Bisacodyl (Dulcolax) 5 mg DAILY PRN PO CONSTIPATION; Start 12/10/16 at 18:00 Famotidine (Pepcid) 20 mg DAILY PO Last administered on 01/05/17 09:26; Admin Dose 20 MG; Start 12/11/16 at 09:00 Atorvastatin Calcium (Lipitor) 10 mg DAILY@21 PO Last administered on 21:28; Admin Dose 10 MG; Start 12/10/16 at 21:00 Heparin Sodium (Porcine) (Heparin (5000 Units/0.5 ml)) 5,000 unit BID SC Last administered on 01/05/17 09:51; Admin Dose 5,000 UNIT; Start 12/11/16 at 21:00 Metoprolol Tartrate (Lopressor) 50 mg BID PO Last administered on 01/05/17 09: 26; Admin Dose 50 MG; Start 12/17/16 at 21:00 Polyethylene Glycol (Miralax) 17 gm BID PO Last administered on 01/05/17 09:27 ; Admin Dose 17 GM; Start 12/21/16 at 21:00 Miscellaneous Information 1 ea NOTE XX ; Start 12/21/16 at 17:30 Glucose (Glutose) 15 gm Q15M PRN PO DECREASED GLUCOSE; Start 12/21/16 at 17:30 Glucose (Glutose) 22.5 gm Q15M PRN PO DECREASED GLUCOSE; Start 12/21/16 at 17: 30 Dextrose (D50w Syringe) 25 ml Q15M PRN IV DECREASED GLUCOSE; Start 12/21/16 at 17:30 Dextrose (D50w Syringe) 50 ml Q15M PRN IV DECREASED GLUCOSE; Start 12/21/16 at 17:30 Glucagon (Glucagen) 1 mg Q15M PRN IM DECREASED GLUCOSE; Start 12/21/16 at 17:30 Glucose (Glutose) 15 gm Q15M PRN BUCCAL DECREASED GLUCOSE; Start 5/16/17 at 17 :30 Amlodipine Besylate (Norvasc) 5 mg BID PO Last administered on 01/05/17 09:26 ; Admin Dose 5 MG; Start 12/27/16 at 21:00 Amiodarone HCl (Cordarone) 200 mg DAILY PO Last administered on 01/05/17 09:27 ; Admin Dose 200 MG; Start 12/31/16 at 09:00 Methylprednisolone (Medrol) 4 mg HS PO ; Start 01/05/17 at 21:00; Stop 01/07/17 at 21:01 Lidocaine (Lidoderm) 1 patch DAILY TD Last administered on 01/05/17 09:27; Admin Dose 1 PATCH; Start 01/04/17 at 13:00 CHERRIE JAUREGUI NP Jan 06, 2017 14:28
--- NOTE | 2017-01-06 15:35 | PN ---
DATE: 01/06/2017 TYPE OF CONSULTATION: Cardiology. SUBJECTIVE: The patient confused and disoriented, he sometimes was aggressive and needed to be rest rained. The patient has not been able to urinate, had urinary retention and needed to undergo in an d out catheterization. OBJECTIVE: VITAL SIGNS: Temperature 97.9, blood pressure 129/78, pulse is 100, respirations 20. The patient again is confused and his upper extremities are restrained. LABORATORY DATA: His CBC shows a white count of 11.8, hemoglobin 9.4, hematocrit 29.6. BUN is 80, creatinine 7.29. Electrolytes: Sodium 145, potassium 4.8, chloride 116, CO2 22. Patient has been on dialysis and last dialysis was on December 30. He, again, was catheterized for 250 and he had a opal dder scan that shows more than 500, but the amount drained by the catheter was only 250. Another ti me the bladder scan showed 800, yet when the straight catheterization was done it showed 500 mL. T he patient does have a history of prostate cancer. He is status post radical prostatectomy, so ther e is no problem with obstruction. IMPRESSION: Urinary retention, most likely related to his general medical condition. PLAN: Continue to do in and out caths on him every 6 hours if the bladder volume is over 500. Dictated By: LAUREN GIL/RIKA Conf#: [id number] DID#: [id number]
--- NOTE | 2017-01-06 16:48 | CONS ---
Date/Time of Note Date/Time of Note DATE: 01/06/17 TIME: 16:43 Assessment/Plan Assessment/Plan Additional Assessment/Plan 1. Acute kidney injury, multifactorial, not improving despite being on IVF hydration, BUN/Cr persistently high ,.started on HD during this admission - now HD catheter discontinued we are monitoring as needed 2. Hyponatremia - improved 3. Status post fall, which was a mechanical fall, but likely due to the hyponatremia. CT brain is negative. 4. Possible history of chronic kidney disease secondary to hypertensive nephrosclerosis. 5. History of hypertension. 6. History of gout. 7. History of hyperlipidemia. 8. Atrial fibrillation, rate controlled. 9. History of alcohol abuse. 10. Thrombocytopenia secondary to alcohol abuse. 11. sepsis due to UTI and bacteremia with Blood cx and urine Cx growing proteus - follow up blood cx negative 12. Moderate pleural effusion s/p Throacentesis 12/31/2016- 2.21 L Fluid removed PLAN: URinary retention after mcdonald discontinued, S/p Urology consutl bY pt had a HD on 12/29 and 12/30- then HD catheter has been discontinued S/p Right thoracentesis 12/31/16- 2.1 fluid removed Blood cx and Urine cx grew proteus - on IV abx - Follow up blood cx on 12/16/16 negative to date lasix has been stopped, pt is not eating well, will plan for D5 W x 2 liter then reassess in AM, AM CXR has been ordered CXR 01/03/17 negative for pulmonary congestion, it showed basilr infiltrates avoid sedative, hypnotics- I discontinued Cerebrex due to hihg K and high Creatinine will continue to follow up Consultation Date/Type/Reason Admit Date/Time December 10, 2016 at 16:57 Type of Consultation: NEPHROLOGY Referring Provider: JACK JENNINGS STATION GATEMAN 24 HR Interval Summary Free Text/Dictation sleeping, lethargic, not eating well Exam/Review of Systems Vital Signs Vitals Vital Signs Date Time Temp Pulse Resp B/P Pulse Ox O2 Delivery O2 Flow Rate FiO2 01/06/17 16:23 72 01/06/17 15:38 98.3 20 125/69 94 01/03/17 20:00 Nasal Cannula 01/02/17 20:02 2.0 Intake and Output 01/05/17 01/05/17 01/06/17 15:00 23:00 07:00 Intake Total 1000 ml 400 ml Output Total 500 ml 250 ml Balance 1000 ml -100 ml -250 ml Exam Sleeping, no apparent distress Head: normocephalic Respiratory: other (Coarse breath sounds bilaterally, no wheezing) Cardiovascular: other (S1-S2 heard), regular rate and rhythm Gastrointestinal: bowel sounds, non-tender, soft Extremities: edema Results Result Diagram: 01/04/17 0640 01/06/17 0640 Results 24 hrs Laboratory Tests Test 01/06/17 06:40 Sodium Level 145 H Potassium Level 4.8 Chloride Level 116 H Carbon Dioxide Level 22 Anion Gap 12 Blood Urea Nitrogen 80 H Creatinine 7.29 H Glucose Level 92 Calcium Level 9.3 Medications Medications Current Medications Ondansetron HCl (Zofran Inj) 4 mg Q6H PRN IV NAUSEA AND/OR VOMITING Last administered on 12/24/16 12:08; Admin Dose 4 MG; Start 12/10/16 at 18:00 Magnesium Hydroxide (Milk Of Mag) 30 ml DAILY PRN PO CONSTIPATION Last administered on 12/29/16 08:56; Admin Dose 30 ML; Start 12/10/16 at 18:00 Bisacodyl (Dulcolax) 5 mg DAILY PRN PO CONSTIPATION; Start 12/10/16 at 18:00 Famotidine (Pepcid) 20 mg DAILY PO Last administered on 01/05/17 09:26; Admin Dose 20 MG; Start 12/11/16 at 09:00 Atorvastatin Calcium (Lipitor) 10 mg DAILY@21 PO Last administered on 21:28; Admin Dose 10 MG; Start 12/10/16 at 21:00 Heparin Sodium (Porcine) (Heparin (5000 Units/0.5 ml)) 5,000 unit BID SC Last administered on 01/05/17 09:51; Admin Dose 5,000 UNIT; Start 12/11/16 at 21:00 Metoprolol Tartrate (Lopressor) 50 mg BID PO Last administered on 01/05/17 09: 26; Admin Dose 50 MG; Start 12/17/16 at 21:00 Polyethylene Glycol (Miralax) 17 gm BID PO Last administered on 01/05/17 09:27 ; Admin Dose 17 GM; Start 12/21/16 at 21:00 Miscellaneous Information 1 ea NOTE XX ; Start 12/21/16 at 17:30 Glucose (Glutose) 15 gm Q15M PRN PO DECREASED GLUCOSE; Start 12/21/16 at 17:30 Glucose (Glutose) 22.5 gm Q15M PRN PO DECREASED GLUCOSE; Start 12/21/16 at 17: 30 Dextrose (D50w Syringe) 25 ml Q15M PRN IV DECREASED GLUCOSE; Start 12/21/16 at 17:30 Dextrose (D50w Syringe) 50 ml Q15M PRN IV DECREASED GLUCOSE; Start 12/21/16 at 17:30 Glucagon (Glucagen) 1 mg Q15M PRN IM DECREASED GLUCOSE; Start 12/21/16 at 17:30 Glucose (Glutose) 15 gm Q15M PRN BUCCAL DECREASED GLUCOSE; Start 12/21/16 at 17 :30 Amlodipine Besylate (Norvasc) 5 mg BID PO Last administered on 01/05/17 09:26 ; Admin Dose 5 MG; Start 12/27/16 at 21:00 Amiodarone HCl (Cordarone) 200 mg DAILY PO Last administered on 01/05/17 09:27 ; Admin Dose 200 MG; Start 12/31/16 at 09:00 Methylprednisolone (Medrol) 4 mg HS PO ; Start 01/05/17 at 21:00; Stop 01/07/17 at 21:01 Lidocaine (Lidoderm) 1 patch DAILY TD Last administered on 01/05/17 09:27; Admin Dose 1 PATCH; Start 01/04/17 at 13:00 MADELYN MIRANDA MD Jan 06, 2017 16:48
[2017-01-06] MEDS: DEXTROSE 5% 1,000 ML IV SCH (17:38)
[2017-01-06] MEDS: ATORVASTATIN 10 MG TAB PO SCH (20:35)
[2017-01-07] VITALS (8 sets, daily range): BP systolic 124–151; BP diastolic 55–86; PULSE 70–86; RESP 16–20
[2017-01-07] MEDS ORDERED: HALOPERIDOL 5 MG INJ IV ONE (06:00)
[2017-01-07] MEDS ORDERED: HALOPERIDOL 5 MG INJ IM ONE (06:00)
--- NOTE | 2017-01-07 08:10 | CONS ---
Date/Time of Note Date/Time of Note DATE: 01/07/17 TIME: 08:08 Assessment/Plan Assessment/Plan Chief Complaint/Hosp Course Acute kidney injury Status post fall Atrial fibrillation, converted into SR History of hypertension Recent UTI Problems: Additional Assessment/Plan continue current cardiac mgt HR per renal Consultation Date/Type/Reason Admit Date/Time December 10, 2016 at 16:57 Type of Consultation: cv Referring Provider: JACK JENNINGS FIRE PREVENTION CAPTAIN 24 HR Interval Summary Free Text/Dictation resting, no chest pain or sob Detailed Summary Respiratory: no complaints Cardiovascular: no complaints Gastrointestinal: no complaints Musculoskeletal: no complaints Skin: no complaints Neurologic: no complaints Exam/Review of Systems Vital Signs Vitals Vital Signs Date Time Temp Pulse Resp B/P Pulse Ox O2 Delivery O2 Flow Rate FiO2 01/07/17 07:44 98.1 83 17 131/63 95 01/03/17 20:00 Nasal Cannula Intake and Output 01/06/17 01/06/17 01/07/17 15:00 23:00 07:00 Intake Total 450 ml 100 ml Balance 450 ml 100 ml Exam Psych: no complaints Head: atraumatic, normocephalic Neck: supple Respiratory: clear to auscultation Cardiovascular: regular rate and rhythm Gastrointestinal: soft Musculoskeletal: nl extremities to inspection Extremities: normal pulses Results Result Diagram: 01/04/17 0640 01/06/17 0640 Medications Medications Current Medications Ondansetron HCl (Zofran Inj) 4 mg Q6H PRN IV NAUSEA AND/OR VOMITING Last administered on 12/24/16 12:08; Admin Dose 4 MG; Start 12/10/16 at 18:00 Magnesium Hydroxide (Milk Of Mag) 30 ml DAILY PRN PO CONSTIPATION Last administered on 12/29/16 08:56; Admin Dose 30 ML; Start 12/10/16 at 18:00 Bisacodyl (Dulcolax) 5 mg DAILY PRN PO CONSTIPATION; Start 12/10/16 at 18:00 Famotidine (Pepcid) 20 mg DAILY PO Last administered on 01/05/17 09:26; Admin Dose 20 MG; Start 12/11/16 at 09:00 Atorvastatin Calcium (Lipitor) 10 mg DAILY@21 PO Last administered on 21:28; Admin Dose 10 MG; Start 12/10/16 at 21:00 Heparin Sodium (Porcine) (Heparin (5000 Units/0.5 ml)) 5,000 unit BID SC Last administered on 01/05/17 09:51; Admin Dose 5,000 UNIT; Start 12/11/16 at 21:00 Metoprolol Tartrate (Lopressor) 50 mg BID PO Last administered on 01/05/17 09: 26; Admin Dose 50 MG; Start 12/17/16 at 21:00 Polyethylene Glycol (Miralax) 17 gm BID PO Last administered on 01/05/17 09:27 ; Admin Dose 17 GM; Start 12/21/16 at 21:00 Miscellaneous Information 1 ea NOTE XX ; Start 12/21/16 at 17:30 Glucose (Glutose) 15 gm Q15M PRN PO DECREASED GLUCOSE; Start 12/21/16 at 17:30 Glucose (Glutose) 22.5 gm Q15M PRN PO DECREASED GLUCOSE; Start 12/21/16 at 17: 30 Dextrose (D50w Syringe) 25 ml Q15M PRN IV DECREASED GLUCOSE; Start 12/21/16 at 17:30 Dextrose (D50w Syringe) 50 ml Q15M PRN IV DECREASED GLUCOSE; Start 12/21/16 at 17:30 Glucagon (Glucagen) 1 mg Q15M PRN IM DECREASED GLUCOSE; Start 12/21/16 at 17:30 Glucose (Glutose) 15 gm Q15M PRN BUCCAL DECREASED GLUCOSE; Start 12/21/16 at 17 :30 Amlodipine Besylate (Norvasc) 5 mg BID PO Last administered on 01/05/17 09:26 ; Admin Dose 5 MG; Start 12/27/16 at 21:00 Amiodarone HCl (Cordarone) 200 mg DAILY PO Last administered on 01/05/17 09:27 ; Admin Dose 200 MG; Start 12/31/16 at 09:00 Methylprednisolone (Medrol) 4 mg HS PO ; Start 01/05/17 at 21:00; Stop 01/07/17 at 21:01 Lidocaine 1 patch 1 patch DAILY TD Last administered on 01/05/17 09:27; Admin Dose 1 PATCH; Start 01/04/17 at 13:00 Dextrose (D5W) 1,000 ml @ 60 mls/hr [id number] IV Last administered on 01/06/17 17:38; Admin Dose 60 MLS/HR; Start 01/06/17 at 17:00; Stop 01/08/17 at 02:19 TORSTEN HANCOCK MD Jan 07, 2017 08:09
--- NOTE | 2017-01-07 09:06 | PN ---
DATE: 01/07/2017 SUBJECTIVE: The patient is sleepy, lethargic all the time, tried to wake him up. He opens his eyes and then goes back to sleep. The patient has been having urinary retention and has been undergoing intermittent catheterization. OBJECTIVE: VITAL SIGNS: His temperature is 98.1, blood pressure 131/63, pulse is 83, respirations 17. ABDOMEN: Soft. LABORATORY DATA: CBC shows a white count of 11.8, hemoglobin 9.4, hematocrit 29.6. BUN is 80, crea tinine is 7.29. The patient has been on dialysis. The bladder scan was done and he had 285 mL yest erday. PLAN: To do in and out cath on him every 6 regardless how much the bladder scan will show and then if it is less than 300, then we could do it twice a day. Dictated By: LAUREN GIL/RIKA Conf#: [id number] DID#: [id number]
[2017-01-07] MEDS: METHYLPREDNISOLONE 4 MG TAB PO SCH ×2 (09:55→20:12)
[2017-01-07] MEDS: FAMOTIDINE 20 MG TAB PO SCH (09:55)
[2017-01-07] MEDS: AMLODIPINE 5 MG TAB PO SCH ×2 (09:56→20:12)
[2017-01-07] MEDS: AMIODARONE 200 MG TAB PO SCH (09:56)
[2017-01-07] MEDS: METOPROLOL 50 MG TAB PO SCH ×2 (09:57→20:13)
[2017-01-07] MEDS: POLYETHYLENE GLYCOL 17 GM PACKET PO SCH ×2 (09:58→20:11)
[2017-01-07] MEDS: HEPARIN 5,000 UNIT/0.5 ML VIAL SC SCH ×2 (09:59→20:24)
--- NOTE | 2017-01-07 10:06 | PN ---
Date/Time of Note Date/Time of Note DATE: 01/07/17 TIME: 10:05 Assessment/Plan VTE Prophylaxis VTE Prophylaxis Intervention: SCD's Lines/Catheters IV Catheter Type (from Nrs): Peripheral IV Urinary Cath still in place: No Assessment/Plan Assessment/Plan 71 yo M presented with sepsis 2/2 proteus from source now sp abx treatment. Hospital course complicated by HCAP sp abx, acute on chronic back pain (imaging with spinal stenosis), LIU requiring intermittent HD (renal still following) and toxic/metabolic encephalopathy which now precludes home discharge. Also with urinary retention requiring straight caths. Pt remains agitated x 2 days #metabolic encephalopathy/agitation attempting to wean pain meds-->changed oxy to apap/hydrocodone cont renal involvement for HD eval. haldol PRN agitation cont medrol taper -check TSH, NH3, b12 #dysphagia/poor PO tolerance: spoke with patient's sister past 2 days. Given level of agitation unlikely to tolerate PEG or NG #urinary retention: as per #recent infections: ID following. sp abx for proteus UTI with resultant sepsis and HCAP +/- aspiration pna #pAF: cont bb, amio. discontinue tele #h/o EtOH abuse: out of withdrawal window #back pain: ortho on consult #DVT prophx: SCDs, SQH Subjective 24 Hr Interval Summary Free Text/Dictation Pt remains agitated, told me to get out of his room and refused exam. Haldol PRN x 1 required overnight for an attempt at punching staff. Still in UE restraints Exam/Review of Systems Vital Signs Vitals Vital Signs Date Time Temp Pulse Resp B/P Pulse Ox O2 Delivery O2 Flow Rate FiO2 01/07/17 07:44 98.1 83 17 131/63 95 01/03/17 20:00 Nasal Cannula Intake and Output 01/06/17 01/06/17 01/07/17 15:00 23:00 07:00 Intake Total 450 ml 100 ml Balance 450 ml 100 ml Exam exam refused dishevelled male laying in bed, thin resp nonlabored no gross abd distension no rashes no le edema Results Result Diagram: 01/04/17 0640 01/06/17 0640 Medications Medications Current Medications Ondansetron HCl (Zofran Inj) 4 mg Q6H PRN IV NAUSEA AND/OR VOMITING Last administered on 12/24/16 12:08; Admin Dose 4 MG; Start 12/10/16 at 18:00 Magnesium Hydroxide (Milk Of Mag) 30 ml DAILY PRN PO CONSTIPATION Last administered on 12/29/16 08:56; Admin Dose 30 ML; Start 12/10/16 at 18:00 Bisacodyl (Dulcolax) 5 mg DAILY PRN PO CONSTIPATION; Start 12/10/16 at 18:00 Famotidine (Pepcid) 20 mg DAILY PO Last administered on 01/07/17 09:55; Admin Dose 20 MG; Start 12/11/16 at 09:00 Atorvastatin Calcium (Lipitor) 10 mg DAILY@21 PO Last administered on 21:28; Admin Dose 10 MG; Start 12/10/16 at 21:00 Heparin Sodium (Porcine) (Heparin (5000 Units/0.5 ml)) 5,000 unit BID SC Last administered on 01/07/17 09:59; Admin Dose 5,000 UNIT; Start 12/11/16 at 21:00 Metoprolol Tartrate (Lopressor) 50 mg BID PO Last administered on 01/07/17 09: 57; Admin Dose 50 MG; Start 12/17/16 at 21:00 Polyethylene Glycol (Miralax) 17 gm BID PO Last administered on 01/07/17 09:58 ; Admin Dose 17 GM; Start 12/21/16 at 21:00 Miscellaneous Information 1 ea NOTE XX ; Start 12/21/16 at 17:30 Glucose (Glutose) 15 gm Q15M PRN PO DECREASED GLUCOSE; Start 12/21/16 at 17:30 Glucose (Glutose) 22.5 gm Q15M PRN PO DECREASED GLUCOSE; Start 12/21/16 at 17: 30 Dextrose (D50w Syringe) 25 ml Q15M PRN IV DECREASED GLUCOSE; Start 12/21/16 at 17:30 Dextrose (D50w Syringe) 50 ml Q15M PRN IV DECREASED GLUCOSE; Start 12/21/16 at 17:30 Glucagon (Glucagen) 1 mg Q15M PRN IM DECREASED GLUCOSE; Start 12/21/16 at 17:30 Glucose (Glutose) 15 gm Q15M PRN BUCCAL DECREASED GLUCOSE; Start 12/21/16 at 17 :30 Amlodipine Besylate (Norvasc) 5 mg BID PO Last administered on 01/07/17 09:56; Admin Dose 5 MG; Start 12/27/16 at 21:00 Amiodarone HCl (Cordarone) 200 mg DAILY PO Last administered on 01/07/17 09:56 ; Admin Dose 200 MG; Start 12/31/16 at 09:00 Methylprednisolone (Medrol) 4 mg HS PO ; Start 01/05/17 at 21:00; Stop 01/07/17 at 21:01 Lidocaine 1 patch 1 patch DAILY TD Last administered on 01/05/17 09:27; Admin Dose 1 PATCH; Start 01/04/17 at 13:00 Dextrose (D5W) 1,000 ml @ 60 mls/hr [id number] IV Last administered on 01/06/17 17:38; Admin Dose 60 MLS/HR; Start 01/06/17 at 17:00; Stop 01/08/17 at 02:19 NETTA SALOMON MD Jan 07, 2017 10:06
--- NOTE | 2017-01-07 10:21 | RADRPT ---
PROCEDURE: XR Chest 1 View. CLINICAL INDICATION: Shortness of breath. TECHNIQUE: AP view of the chest was obtained. COMPARISON: January 04, 2017 FINDINGS: The heart size is within normal limits. Calcified atherosclerosis is noted in the aorta. Right basi lar infiltrates combined small pleural effusion are similar to prior exam, given differences in tech nique. The osseous structures are osteopenic, but appear grossly intact. IMPRESSION: Calcified atherosclerosis in the aorta. Stable right basilar infiltrates, combined with small pleural effusion. Previously seen left pleural effusion and basilar atelectasis has resolved. RPTAT: AA .Vipin Oreilly MD, MD Date Time Electronically viewed and signed by .Vipin Oreilly MD, MD on 01/07/2017 10:21 .P/
[2017-01-07] MEDS ORDERED: MULTIVITAMINS 10 ML, THIAMINE 100 MG, FOLIC ACID 1 MG in SOD CHLORIDE 0.9% 1,000 ML IVPB ONE (11:00)
[2017-01-07] MEDS: LIDOCAINE 5% PATCH TD SCH (12:03)
--- NOTE | 2017-01-07 13:22 | CONS ---
Date/Time of Note Date/Time of Note DATE: 01/07/17 TIME: 13:21 Assessment/Plan Assessment/Plan Chief Complaint/Hosp Course SUBJECTIVE: No events overnight. The patient is lethargic and confused, lying comfortably in bed. No fevers. ANTIMICROBIALS: off antibiotics. PHYSICAL EXAMINATION: GENERAL: This is a chronically ill-appearing, elderly man who is awake, in no distress. HEENT: Head atraumatic, normocephalic. Sclerae anicteric. Buccal mucosa dry. NECK: Supple, trachea midline. CHEST: Rise symmetrical. Breath sounds diminished to bases. HEART: S1, S2. ABDOMEN: Soft. Bowel tones present. EXTREMITIES: Without cyanosis. ASSESSMENT: 1. Status post sepsis with bacteremia secondary to urinary tract infection, treated. 2. Acute renal failure, status post hemodialysis. 3. History of ETOH abuse. 4. Severe decompensated state. 5. Back pain, ortho on case and so far no evidence for diskitis==> on steroids. 6. Atrial fibrillation and hypertension. 7. Status post pneumonia. PLAN: The patient remains stable off antibiotics, will panculture p.r.n. staff Problems: Consultation Date/Type/Reason Admit Date/Time December 10, 2016 at 16:57 Type of Consultation: id Referring Provider: JACK JENNINGS SPECIFICATION WRITER Exam/Review of Systems Vital Signs Vitals Vital Signs Date Time Temp Pulse Resp B/P Pulse Ox O2 Delivery O2 Flow Rate FiO2 01/07/17 11:36 98.1 86 17 151/55 98 01/03/17 20:00 Nasal Cannula Intake and Output 01/06/17 01/06/17 01/07/17 15:00 23:00 07:00 Intake Total 450 ml 100 ml Balance 450 ml 100 ml Results Result Diagram: 01/04/17 0640 01/06/17 0640 Medications Medications Current Medications Ondansetron HCl (Zofran Inj) 4 mg Q6H PRN IV NAUSEA AND/OR VOMITING Last administered on 12/24/16 12:08; Admin Dose 4 MG; Start 12/10/16 at 18:00 Magnesium Hydroxide (Milk Of Mag) 30 ml DAILY PRN PO CONSTIPATION Last administered on 12/29/16 08:56; Admin Dose 30 ML; Start 12/10/16 at 18:00 Bisacodyl (Dulcolax) 5 mg DAILY PRN PO CONSTIPATION; Start 12/10/16 at 18:00 Famotidine (Pepcid) 20 mg DAILY PO Last administered on 01/07/17 09:55; Admin Dose 20 MG; Start 12/11/16 at 09:00 Atorvastatin Calcium (Lipitor) 10 mg DAILY@21 PO Last administered on 21:28; Admin Dose 10 MG; Start 12/10/16 at 21:00 Heparin Sodium (Porcine) (Heparin (5000 Units/0.5 ml)) 5,000 unit BID SC Last administered on 01/07/17 09:59; Admin Dose 5,000 UNIT; Start 12/11/16 at 21:00 Metoprolol Tartrate (Lopressor) 50 mg BID PO Last administered on 01/07/17 09: 57; Admin Dose 50 MG; Start 12/17/16 at 21:00 Polyethylene Glycol (Miralax) 17 gm BID PO Last administered on 01/07/17 09:58 ; Admin Dose 17 GM; Start 12/21/16 at 21:00 Miscellaneous Information 1 ea NOTE XX ; Start 12/21/16 at 17:30 Glucose (Glutose) 15 gm Q15M PRN PO DECREASED GLUCOSE; Start 12/21/16 at 17:30 Glucose (Glutose) 22.5 gm Q15M PRN PO DECREASED GLUCOSE; Start 12/21/16 at 17: 30 Dextrose (D50w Syringe) 25 ml Q15M PRN IV DECREASED GLUCOSE; Start 12/21/16 at 17:30 Dextrose (D50w Syringe) 50 ml Q15M PRN IV DECREASED GLUCOSE; Start 12/21/16 at 17:30 Glucagon (Glucagen) 1 mg Q15M PRN IM DECREASED GLUCOSE; Start 12/21/16 at 17:30 Glucose (Glutose) 15 gm Q15M PRN BUCCAL DECREASED GLUCOSE; Start 12/21/16 at 17 :30 Amlodipine Besylate (Norvasc) 5 mg BID PO Last administered on 01/07/17 09:56; Admin Dose 5 MG; Start 12/27/16 at 21:00 Amiodarone HCl (Cordarone) 200 mg DAILY PO Last administered on 01/07/17 09:56 ; Admin Dose 200 MG; Start 12/31/16 at 09:00 Methylprednisolone (Medrol) 4 mg HS PO ; Start 01/05/17 at 21:00; Stop 01/07/17 at 21:01 Lidocaine 1 patch 1 patch DAILY TD Last administered on 01/07/17 12:03; Admin Dose 1 PATCH; Start 01/04/17 at 13:00 Dextrose 1,000 ml @ 60 mls/hr [id number] IV Last administered on 01/06/17 17:38; Admin Dose 60 MLS/HR; Start 01/06/17 at 17:00; Stop 01/08/17 at 02:19 Multivitamins/ Thiamine HCl/ Folic Acid/Sodium Chloride (Mvi Adult/ Vitamin B1/ Folic Acid/NS) 1,011.2 ml @ 125 mls/ hr ONCE ONCE IVPB Last administered on 12:31; Admin Dose 125 MLS/HR; Start 01/07/17 at 11:00; Stop 01/07/17 at 19 :05 CHERRIE JAUREGUI NP Jan 07, 2017 13:22
[2017-01-07 14:23] LABS: ADD SCAN DIFF NO
[2017-01-07 14:25] LABS: BASOPHILS % 0.3 % (0.0-2.0); EOSINOPHILS # 0.1 10^3/ul (0.0-0.5); EOSINOPHILS % 0.6 % (0.0-7.0); HEMATOCRIT 23.7 % (42.0-52.0); HEMOGLOBIN 7.4 g/dl (14.0-18.0); LYMPHOCYTES # 1.2 10^3/ul (0.8-2.9); MEAN CORPUSCULAR HEMOGLOBIN 29.2 pg (29.0-33.0); MEAN CORPUSCULAR HGB CONC 31.2 g/dl (32.0-37.0); MEAN CORPUSCULAR VOLUME 93.7 fl (82.0-101.0); MEAN PLATELET VOLUME 11.2 fl (7.4-10.4); MONOCYTE # 1.1 10^3/ul (0.3-0.9); MONOCYTES % 8.8 % (0.0-11.0); NEUTROPHIL # 9.8 10^3/ul (1.6-7.5); NEUTROPHILS % 79.3 % (39.0-77.0); PLATELET COUNT 267 10^3/UL (140-415); RED BLOOD COUNT 2.53 10^6/ul (4.70-6.10); RED CELL DISTRIBUTION WIDTH 14.7 % (11.5-14.5); WHITE BLOOD COUNT 12.3 10^3/ul (4.8-10.8)
[2017-01-07 14:53] LABS: CALCIUM 8.7 mg/dl (8.4-10.2); CREATININE 7.76 mg/dl (0.61-1.24); POTASSIUM 4.5 mmol/L (3.5-5.1)
--- NOTE | 2017-01-07 16:59 | CONS ---
Date/Time of Note Date/Time of Note DATE: 01/07/17 TIME: 16:57 Assessment/Plan Assessment/Plan Additional Assessment/Plan 1. Acute kidney injury, multifactorial, not improving despite being on IVF hydration, BUN/Cr persistently high ,.started on HD during this admission - now HD catheter discontinued we are monitoring as needed 2. Hyponatremia - improved 3. Status post fall, which was a mechanical fall, but likely due to the hyponatremia. CT brain is negative. 4. Possible history of chronic kidney disease secondary to hypertensive nephrosclerosis. 5. History of hypertension. 6. History of gout. 7. History of hyperlipidemia. 8. Atrial fibrillation, rate controlled. 9. History of alcohol abuse. 10. Thrombocytopenia secondary to alcohol abuse. 11. sepsis due to UTI and bacteremia with Blood cx and urine Cx growing proteus - follow up blood cx negative 12. Moderate pleural effusion s/p Throacentesis 12/31/2016- 2.21 L Fluid removed PLAN: URinary retention after mcdonald discontinued, S/p Urology consutl bY pt had a HD on 12/29 and 12/30- then HD catheter has been discontinued S/p Right thoracentesis 12/31/16- 2.1 fluid removed Blood cx and Urine cx grew proteus - on IV abx - Follow up blood cx on 12/16/16 negative to date CXR showed no pulmonary congestion, stable right basilar infiltrates, BUN/Cr slowly rising, BP stable avoid sedative, hypnotics- I discontinued Cerebrex due to hihg K and high Creatinine will continue to follow up Consultation Date/Type/Reason Admit Date/Time December 10, 2016 at 16:57 Type of Consultation: NEPHROLOGY Referring Provider: JACK JENNINGS NP 24 HR Interval Summary Free Text/Dictation BUN/Cr still high, slowly rising up, BP stable Exam/Review of Systems Vital Signs Vitals Vital Signs Date Time Temp Pulse Resp B/P Pulse Ox O2 Delivery O2 Flow Rate FiO2 01/07/17 16:00 98.0 86 18 124/86 98 01/07/17 07:50 Nasal Cannula 2.0 Intake and Output 01/06/17 01/06/17 01/07/17 15:00 23:00 07:00 Intake Total 450 ml 100 ml Balance 450 ml 100 ml Results Result Diagram: 01/07/17 1355 01/07/17 1355 Results 24 hrs Laboratory Tests Test 01/07/17 13:55 White Blood Count 12.3 H Red Blood Count 2.53 L Hemoglobin 7.4 #L Hematocrit 23.7 L Mean Corpuscular Volume 93.7 Mean Corpuscular Hemoglobin 29.2 Mean Corpuscular Hemoglobin Concent 31.2 L Red Cell Distribution Width 14.7 H Platelet Count 267 # Mean Platelet Volume 11.2 H Neutrophils % 79.3 H Lymphocytes % 10.0 L Monocytes % 8.8 Eosinophils % 0.6 Basophils % 0.3 Nucleated Red Blood Cells % 0.0 Neutrophils # 9.8 H Lymphocytes # 1.2 Monocytes # 1.1 H Eosinophils # 0.1 Basophils # 0.0 Nucleated Red Blood Cells # 0.0 Sodium Level 141 Potassium Level 4.5 Chloride Level 114 H Carbon Dioxide Level 19 L Anion Gap 13 Blood Urea Nitrogen 83 H Creatinine 7.76 H Glucose Level 105 Calcium Level 8.7 Medications Medications Current Medications Ondansetron HCl (Zofran Inj) 4 mg Q6H PRN IV NAUSEA AND/OR VOMITING Last administered on 12/24/16 12:08; Admin Dose 4 MG; Start 12/10/16 at 18:00 Magnesium Hydroxide (Milk Of Mag) 30 ml DAILY PRN PO CONSTIPATION Last administered on 12/29/16 08:56; Admin Dose 30 ML; Start 12/10/16 at 18:00 Bisacodyl (Dulcolax) 5 mg DAILY PRN PO CONSTIPATION; Start 12/10/16 at 18:00 Famotidine (Pepcid) 20 mg DAILY PO Last administered on 01/07/17 09:55; Admin Dose 20 MG; Start 12/11/16 at 09:00 Atorvastatin Calcium (Lipitor) 10 mg DAILY@21 PO Last administered on 21:28; Admin Dose 10 MG; Start 12/10/16 at 21:00 Heparin Sodium (Porcine) (Heparin (5000 Units/0.5 ml)) 5,000 unit BID SC Last administered on 01/07/17 09:59; Admin Dose 5,000 UNIT; Start 12/11/16 at 21:00 Metoprolol Tartrate (Lopressor) 50 mg BID PO Last administered on 01/07/17 09: 57; Admin Dose 50 MG; Start 12/17/16 at 21:00 Polyethylene Glycol (Miralax) 17 gm BID PO Last administered on 01/07/17 09:58 ; Admin Dose 17 GM; Start 12/21/16 at 21:00 Miscellaneous Information 1 ea NOTE XX ; Start 12/21/16 at 17:30 Glucose (Glutose) 15 gm Q15M PRN PO DECREASED GLUCOSE; Start 12/21/16 at 17:30 Glucose (Glutose) 22.5 gm Q15M PRN PO DECREASED GLUCOSE; Start 12/21/16 at 17: 30 Dextrose (D50w Syringe) 25 ml Q15M PRN IV DECREASED GLUCOSE; Start 12/21/16 at 17:30 Dextrose (D50w Syringe) 50 ml Q15M PRN IV DECREASED GLUCOSE; Start 12/21/16 at 17:30 Glucagon (Glucagen) 1 mg Q15M PRN IM DECREASED GLUCOSE; Start 12/21/16 at 17:30 Glucose (Glutose) 15 gm Q15M PRN BUCCAL DECREASED GLUCOSE; Start 12/21/16 at 17 :30 Amlodipine Besylate (Norvasc) 5 mg BID PO Last administered on 01/07/17 09:56; Admin Dose 5 MG; Start 12/27/16 at 21:00 Amiodarone HCl (Cordarone) 200 mg DAILY PO Last administered on 01/07/17 09:56 ; Admin Dose 200 MG; Start 12/31/16 at 09:00 Methylprednisolone (Medrol) 4 mg HS PO ; Start 01/05/17 at 21:00; Stop 01/07/17 at 21:01 Lidocaine 1 patch 1 patch DAILY TD Last administered on 01/07/17 12:03; Admin Dose 1 PATCH; Start 01/04/17 at 13:00 Dextrose 1,000 ml @ 60 mls/hr [id number] IV Last administered on 01/06/17 17:38; Admin Dose 60 MLS/HR; Start 01/06/17 at 17:00; Stop 01/08/17 at 02:19 Multivitamins/ Thiamine HCl/ Folic Acid/Sodium Chloride (Mvi Adult/ Vitamin B1/ Folic Acid/NS) 1,011.2 ml @ 125 mls/ hr ONCE ONCE IVPB Last administered on 12:31; Admin Dose 125 MLS/HR; Start 01/07/17 at 11:00; Stop 01/07/17 at 19 :05 MADELYN MIRANDA MD Jan 07, 2017 16:59
[2017-01-07] MEDS: ATORVASTATIN 10 MG TAB PO SCH (20:12)
[2017-01-07] MEDS: DEXTROSE 5% 1,000 ML IV SCH (21:28)
[2017-01-08] VITALS: BP 143/67; RESP 18
[2017-01-08 02:00] VITALS: BP 122/57; RESP 17
[2017-01-08 04:00] VITALS: BP 129/60; RESP 18
[2017-01-08 06:00] VITALS: BP 125/62; RESP 18
[2017-01-08 07:02] LABS: CALCIUM 8.8 mg/dl (8.4-10.2); CREATININE 7.6 mg/dl (0.61-1.24); POTASSIUM 5.3 mmol/L (3.5-5.1)
[2017-01-08 08:00] VITALS: BP 120/61; RESP 18
[2017-01-08] MEDS: METHYLPREDNISOLONE 4 MG TAB PO SCH (08:24)
[2017-01-08] MEDS: POLYETHYLENE GLYCOL 17 GM PACKET PO SCH ×2 (08:24→20:29)
[2017-01-08] MEDS: AMIODARONE 200 MG TAB PO SCH (08:24)
[2017-01-08] MEDS: FAMOTIDINE 20 MG TAB PO SCH (08:24)
[2017-01-08] MEDS: METOPROLOL 50 MG TAB PO SCH ×2 (08:25→20:29)
[2017-01-08] MEDS: AMLODIPINE 5 MG TAB PO SCH ×2 (08:25→20:29)
[2017-01-08] MEDS: HEPARIN 5,000 UNIT/0.5 ML VIAL SC SCH ×2 (08:27→20:30)
[2017-01-08] MEDS: LIDOCAINE 5% PATCH TD SCH (08:27)
--- NOTE | 2017-01-08 10:28 | PN ---
Date/Time of Note Date/Time of Note DATE: 01/08/17 TIME: 10:27 Assessment/Plan VTE Prophylaxis VTE Prophylaxis Intervention: SCD's Lines/Catheters IV Catheter Type (from [facility]): Peripheral IV Urinary Cath still in place: No Assessment/Plan Assessment/Plan 71 yo M presented with sepsis 2/2 proteus from source now sp abx treatment. Hospital course complicated by HCAP sp abx, acute on chronic back pain (imaging with spinal stenosis), LIU requiring intermittent HD (renal still following) and toxic/metabolic encephalopathy which now precludes home discharge. Also with urinary retention requiring straight caths. Pt remains agitated x 3 days though today a little less so #metabolic encephalopathy/agitation attempting to wean pain meds-->changed oxy to apap/hydrocodone cont renal involvement for HD eval and electrolyte management sp haldol PRN sp medrol dose pack for back pain -check TSH, NH3, b12 (pt refused yesterday) #dysphagia/poor PO tolerance: spoke with patient's sister earlier in the week. Given level of agitation unlikely to tolerate PEG or NG #urinary retention: as per #recent infections: ID following. sp abx for proteus UTI with resultant sepsis and HCAP +/- aspiration pna #pAF: cont bb, amio. discontinue tele #h/o EtOH abuse: out of withdrawal window #back pain: ortho on consult #DVT prophx: SCDs, SQH Subjective 24 Hr Interval Summary Free Text/Dictation Pt requesting to have his UE restraints removed. Exam/Review of Systems Vital Signs Vitals Vital Signs Date Time Temp Pulse Resp B/P Pulse Ox O2 Delivery O2 Flow Rate FiO2 01/08/17 08:00 97.8 73 18 120/61 99 01/08/17 01:45 Nasal Cannula 2.0 Intake and Output 01/07/17 01/07/17 01/08/17 15:00 23:00 07:00 Intake Total 1400 ml 120 ml Output Total 225 ml 600 ml 400 ml Balance -225 ml 800 ml -280 ml Exam nad, sitting up in bed still in UE restraints no mrg lungs clear abd soft no le edema Results Result Diagram: 01/07/17 1355 01/08/17 0529 Results 24 hrs Laboratory Tests Test 01/07/17 13:55 01/08/17 05:29 White Blood Count 12.3 H Red Blood Count 2.53 L Hemoglobin 7.4 #L Hematocrit 23.7 L Mean Corpuscular Volume 93.7 Mean Corpuscular Hemoglobin 29.2 Mean Corpuscular Hemoglobin Concent 31.2 L Red Cell Distribution Width 14.7 H Platelet Count 267 # Mean Platelet Volume 11.2 H Neutrophils % 79.3 H Lymphocytes % 10.0 L Monocytes % 8.8 Eosinophils % 0.6 Basophils % 0.3 Nucleated Red Blood Cells % 0.0 Neutrophils # 9.8 H Lymphocytes # 1.2 Monocytes # 1.1 H Eosinophils # 0.1 Basophils # 0.0 Nucleated Red Blood Cells # 0.0 Sodium Level 141 142 Potassium Level 4.5 5.3 H Chloride Level 114 H 114 H Carbon Dioxide Level 19 L 19 L Anion Gap 13 14 Blood Urea Nitrogen 83 H 81 H Creatinine 7.76 H 7.60 H Glucose Level 105 110 Calcium Level 8.7 8.8 Medications Medications Current Medications Ondansetron HCl (Zofran Inj) 4 mg Q6H PRN IV NAUSEA AND/OR VOMITING Last administered on 12/24/16 12:08; Admin Dose 4 MG; Start 12/10/16 at 18:00 Magnesium Hydroxide (Milk Of Mag) 30 ml DAILY PRN PO CONSTIPATION Last administered on 12/29/16 08:56; Admin Dose 30 ML; Start 12/10/16 at 18:00 Bisacodyl (Dulcolax) 5 mg DAILY PRN PO CONSTIPATION; Start 12/10/16 at 18:00 Famotidine (Pepcid) 20 mg DAILY PO Last administered on 01/08/17 08:24; Admin Dose 20 MG; Start 12/11/16 at 09:00 Atorvastatin Calcium (Lipitor) 10 mg DAILY@21 PO Last administered on 01/07/17 20:12; Admin Dose 10 MG; Start 12/10/16 at 21:00 Heparin Sodium (Porcine) (Heparin (5000 Units/0.5 ml)) 5,000 unit BID SC Last administered on 01/08/17 08:27; Admin Dose 5,000 UNIT; Start 12/11/16 at 21:00 Metoprolol Tartrate (Lopressor) 50 mg BID PO Last administered on 01/08/17 08: 25; Admin Dose 50 MG; Start 12/17/16 at 21:00 Polyethylene Glycol (Miralax) 17 gm BID PO Last administered on 01/08/17 08:24 ; Admin Dose 17 GM; Start 12/21/16 at 21:00 Miscellaneous Information 1 ea NOTE XX ; Start 12/21/16 at 17:30 Glucose (Glutose) 15 gm Q15M PRN PO DECREASED GLUCOSE; Start 12/21/16 at 17:30 Glucose (Glutose) 22.5 gm Q15M PRN PO DECREASED GLUCOSE; Start 12/21/16 at 17: 30 Dextrose (D50w Syringe) 25 ml Q15M PRN IV DECREASED GLUCOSE; Start 12/21/16 at 17:30 Dextrose (D50w Syringe) 50 ml Q15M PRN IV DECREASED GLUCOSE; Start 12/21/16 at 17:30 Glucagon (Glucagen) 1 mg Q15M PRN IM DECREASED GLUCOSE; Start 12/21/16 at 17:30 Glucose (Glutose) 15 gm Q15M PRN BUCCAL DECREASED GLUCOSE; Start 12/21/16 at 17 :30 Amlodipine Besylate (Norvasc) 5 mg BID PO Last administered on 01/08/17 08:25; Admin Dose 5 MG; Start 12/27/16 at 21:00 Amiodarone HCl (Cordarone) 200 mg DAILY PO Last administered on 01/08/17 08:24 ; Admin Dose 200 MG; Start 12/31/16 at 09:00 Lidocaine (Lidoderm) 1 patch DAILY TD Last administered on 01/08/17 08:27; Admin Dose 1 PATCH; Start 01/04/17 at 13:00 NETTA SALOMON MD Jan 08, 2017 10:28
[2017-01-08] MEDS ORDERED: HALOPERIDOL 5 MG INJ IV PRN (11:00)
[2017-01-08] MEDS ORDERED: HALOPERIDOL 5 MG INJ IM PRN (11:00)
[2017-01-08] MEDS: HALOPERIDOL 5 MG INJ IM PRN (11:13)
[2017-01-08] MEDS ORDERED: NA POLYST SULFON 15 GM/60 ML BTL PO ONE (15:00)
--- NOTE | 2017-01-08 15:15 | CONS ---
Date/Time of Note Date/Time of Note DATE: 01/08/17 TIME: 15:12 Assessment/Plan Assessment/Plan Additional Assessment/Plan 1. Acute kidney injury, multifactorial, not improving despite being on IVF hydration, BUN/Cr persistently high ,.started on HD during this admission - now HD catheter discontinued we are monitoring as needed - makign good urine, but BUn/Cr slowly rising, 2. Hyponatremia - improved 3. Status post fall, which was a mechanical fall, but likely due to the hyponatremia. CT brain is negative. 4. Possible history of chronic kidney disease secondary to hypertensive nephrosclerosis. 5. History of hypertension. 6. History of gout. 7. History of hyperlipidemia. 8. Atrial fibrillation, rate controlled. 9. History of alcohol abuse. 10. Thrombocytopenia secondary to alcohol abuse. 11. sepsis due to UTI and bacteremia with Blood cx and urine Cx growing proteus - follow up blood cx negative 12. Moderate pleural effusion s/p Throacentesis 12/31/2016- 2.21 L Fluid removed PLAN: K slightly high today, kayexalate 15 gram PO x 1 dose today URinary retention after mcdonald discontinued, S/p Urology consutl by pt had a HD on 12/29 and 12/30- then HD catheter has been discontinued S/p Right thoracentesis 12/31/16- 2.1 fluid removed Blood cx and Urine cx grew proteus - on IV abx - Follow up blood cx on 12/16/16 negative to date CXR showed no pulmonary congestion, stable right basilar infiltrates, BUN/Cr slowly rising, BP stable avoid sedative, hypnotics- I discontinued Cerebrex due to hihg K and high Creatinine will continue to follow up Consultation Date/Type/Reason Admit Date/Time December 10, 2016 at 16:57 Type of Consultation: NEPHROLOGY Referring Provider: JACK JENNINGS 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 ARTISTRY 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 24 HR Interval Summary Free Text/Dictation K slightly high, pt is very combative, BP stable, making good urine Exam/Review of Systems Vital Signs Vitals Vital Signs Date Time Temp Pulse Resp B/P Pulse Ox O2 Delivery O2 Flow Rate FiO2 01/08/17 08:00 97.8 73 18 120/61 99 01/08/17 01:45 Nasal Cannula 2.0 Intake and Output 01/07/17 01/07/17 01/08/17 15:00 23:00 07:00 Intake Total 1400 ml 120 ml Output Total 225 ml 600 ml 400 ml Balance -225 ml 800 ml -280 ml Exam Sleeping, no apparent distress Head: normocephalic Respiratory: other (Coarse breath sounds bilaterally, no wheezing) Cardiovascular: other (S1-S2 heard), regular rate and rhythm Gastrointestinal: bowel sounds, non-tender, soft Extremities: edema Results Result Diagram: 01/07/17 1355 01/08/17 0529 Results 24 hrs Laboratory Tests Test 01/08/17 05:29 Sodium Level 142 Potassium Level 5.3 H Chloride Level 114 H Carbon Dioxide Level 19 L Anion Gap 14 Blood Urea Nitrogen 81 H Creatinine 7.60 H Glucose Level 110 Calcium Level 8.8 Medications Medications Current Medications Ondansetron HCl (Zofran Inj) 4 mg Q6H PRN IV NAUSEA AND/OR VOMITING Last administered on 12/24/16 12:08; Admin Dose 4 MG; Start 12/10/16 at 18:00 Magnesium Hydroxide (Milk Of Mag) 30 ml DAILY PRN PO CONSTIPATION Last administered on 12/29/16 08:56; Admin Dose 30 ML; Start 12/10/16 at 18:00 Bisacodyl (Dulcolax) 5 mg DAILY PRN PO CONSTIPATION; Start 12/10/16 at 18:00 Famotidine (Pepcid) 20 mg DAILY PO Last administered on 01/08/17 08:24; Admin Dose 20 MG; Start 12/11/16 at 09:00 Atorvastatin Calcium (Lipitor) 10 mg DAILY@21 PO Last administered on 01/07/17 20:12; Admin Dose 10 MG; Start 12/10/16 at 21:00 Heparin Sodium (Porcine) (Heparin (5000 Units/0.5 ml)) 5,000 unit BID SC Last administered on 01/08/17 08:27; Admin Dose 5,000 UNIT; Start 12/11/16 at 21:00 Metoprolol Tartrate (Lopressor) 50 mg BID PO Last administered on 01/08/17 08: 25; Admin Dose 50 MG; Start 12/17/16 at 21:00 Polyethylene Glycol (Miralax) 17 gm BID PO Last administered on 01/08/17 08:24 ; Admin Dose 17 GM; Start 12/21/16 at 21:00 Miscellaneous Information 1 ea NOTE XX ; Start 12/21/16 at 17:30 Glucose (Glutose) 15 gm Q15M PRN PO DECREASED GLUCOSE; Start 12/21/16 at 17:30 Glucose (Glutose) 22.5 gm Q15M PRN PO DECREASED GLUCOSE; Start 12/21/16 at 17: 30 Dextrose (D50w Syringe) 25 ml Q15M PRN IV DECREASED GLUCOSE; Start 12/21/16 at 17:30 Dextrose (D50w Syringe) 50 ml Q15M PRN IV DECREASED GLUCOSE; Start 12/21/16 at 17:30 Glucagon (Glucagen) 1 mg Q15M PRN IM DECREASED GLUCOSE; Start 12/21/16 at 17:30 Glucose (Glutose) 15 gm Q15M PRN BUCCAL DECREASED GLUCOSE; Start 12/21/16 at 17 :30 Amlodipine Besylate (Norvasc) 5 mg BID PO Last administered on 01/08/17 08:25; Admin Dose 5 MG; Start 12/27/16 at 21:00 Amiodarone HCl (Cordarone) 200 mg DAILY PO Last administered on 01/08/17 08:24 ; Admin Dose 200 MG; Start 12/31/16 at 09:00 Lidocaine (Lidoderm) 1 patch DAILY TD Last administered on 01/08/17 08:27; Admin Dose 1 PATCH; Start 01/04/17 at 13:00 Haloperidol (Haldol) 1 mg Q6H PRN IM AGITATION Last administered on 01/08/17 11 :13; Admin Dose 1 MG; Start 01/08/17 at 11:00 Acetaminophen/ Hydrocodone Bitart ([place] (5/325)) 1 tab Q4H PRN PO pain; Start 01/08/17 at 14:30 MADELYN MIRANDA MD Jan 08, 2017 15:15
[2017-01-08 20:10] VITALS: BP 126/60; RESP 19
[2017-01-08] MEDS: ATORVASTATIN 10 MG TAB PO SCH (20:28)
[2017-01-09] MEDS: HALOPERIDOL 5 MG INJ IM PRN ×2 (04:19→14:26)
[2017-01-09 06:43] LABS: CALCIUM 9.1 mg/dl (8.4-10.2); CREATININE 8.09 mg/dl (0.61-1.24)
[2017-01-09 07:11] LABS: THYROID STIMULATING HORMONE 14.1 MIU/L (0.465-4.680)
[2017-01-09 07:40] VITALS: BP 131/58; RESP 19
[2017-01-09] MEDS: FAMOTIDINE 20 MG TAB PO SCH (08:51)
[2017-01-09] MEDS: POLYETHYLENE GLYCOL 17 GM PACKET PO SCH ×2 (08:52→21:00)
[2017-01-09] MEDS: LIDOCAINE 5% PATCH TD SCH (08:52)
[2017-01-09] MEDS: METOPROLOL 50 MG TAB PO SCH ×2 (08:52→21:00)
[2017-01-09] MEDS: AMIODARONE 200 MG TAB PO SCH (08:52)
[2017-01-09] MEDS: AMLODIPINE 5 MG TAB PO SCH ×2 (08:52→21:00)
[2017-01-09] MEDS: HEPARIN 5,000 UNIT/0.5 ML VIAL SC SCH ×2 (08:53→21:00)
--- NOTE | 2017-01-09 15:21 | CONS ---
Date/Time of Note Date/Time of Note DATE: 01/09/17 TIME: 15:17 Assessment/Plan Assessment/Plan Additional Assessment/Plan 1. Acute kidney injury, multifactorial, not improving despite being on IVF hydration, BUN/Cr persistently high ,.started on HD during this admission - now HD catheter discontinued we are monitoring as needed - makign good urine, but BUn/Cr slowly rising, 2. Hyponatremia - improved 3. Status post fall, which was a mechanical fall, but likely due to the hyponatremia. CT brain is negative. 4. Possible history of chronic kidney disease secondary to hypertensive nephrosclerosis. 5. History of hypertension. 6. History of gout. 7. History of hyperlipidemia. 8. Atrial fibrillation, rate controlled. 9. History of alcohol abuse. 10. Thrombocytopenia secondary to alcohol abuse. 11. sepsis due to UTI and bacteremia with Blood cx and urine Cx growing proteus - follow up blood cx negative 12. Moderate pleural effusion s/p Throacentesis 12/31/2016- 2.21 L Fluid removed PLAN: K 5.0 today URinary retention after mcdonald discontinued, S/p Urology consutl by pt had a HD on 12/29 and 12/30- then HD catheter has been discontinued S/p Right thoracentesis 12/31/16- 2.1 fluid removed Blood cx and Urine cx grew proteus - on IV abx - Follow up blood cx on 12/16/16 negative to date CXR showed no pulmonary congestion, stable right basilar infiltrates, BUN/Cr slowly rising, BP stable will continue to follow up Consultation Date/Type/Reason Admit Date/Time December 10, 2016 at 16:57 Type of Consultation: NEPHROLOGY Referring Provider: JACK JENNINGS REFRIGERATION TECH 24 HR Interval Summary Free Text/Dictation pt still not eating well, BUN/Cr still high , making good urine Exam/Review of Systems Vital Signs Vitals Vital Signs Date Time Temp Pulse Resp B/P Pulse Ox O2 Delivery O2 Flow Rate FiO2 01/09/17 07:40 98.4 66 19 131/58 98 01/08/17 20:00 Nasal Cannula 2.0 Intake and Output 01/08/17 01/08/17 01/09/17 15:00 23:00 07:00 Intake Total 320 ml Balance 320 ml Exam Sleeping, no apparent distress Head: normocephalic Respiratory: other (Coarse breath sounds bilaterally, no wheezing) Cardiovascular: other (S1-S2 heard), regular rate and rhythm Gastrointestinal: bowel sounds, non-tender, soft Extremities: edema Results Result Diagram: 01/07/17 1355 01/09/17 0540 Results 24 hrs Laboratory Tests Test 01/09/17 05:00 01/09/17 05:40 Ammonia < 9 L Sodium Level 147 H Potassium Level 5.0 Chloride Level 116 H Carbon Dioxide Level 19 L Anion Gap 17 H Blood Urea Nitrogen 83 H Creatinine 8.09 H Glucose Level 82 Calcium Level 9.1 Vitamin B12 Level 487 Thyroid Stimulating Hormone (TSH) 14.100 H Medications Medications Current Medications Ondansetron HCl (Zofran Inj) 4 mg Q6H PRN IV NAUSEA AND/OR VOMITING Last administered on 12/24/16 12:08; Admin Dose 4 MG; Start 12/10/16 at 18:00 Magnesium Hydroxide (Milk Of Mag) 30 ml DAILY PRN PO CONSTIPATION Last administered on 12/29/16 08:56; Admin Dose 30 ML; Start 12/10/16 at 18:00 Bisacodyl (Dulcolax) 5 mg DAILY PRN PO CONSTIPATION; Start 12/10/16 at 18:00 Famotidine (Pepcid) 20 mg DAILY PO Last administered on 01/09/17 08:51; Admin Dose 20 MG; Start 12/11/16 at 09:00 Atorvastatin Calcium (Lipitor) 10 mg DAILY@21 PO Last administered on 01/08/17 20:28; Admin Dose 10 MG; Start 12/10/16 at 21:00 Heparin Sodium (Porcine) (Heparin (5000 Units/0.5 ml)) 5,000 unit BID SC Last administered on 01/08/17 20:30; Admin Dose 5,000 UNIT; Start 12/11/16 at 21:00 Metoprolol Tartrate (Lopressor) 50 mg BID PO Last administered on 01/09/17 08: 52; Admin Dose 50 MG; Start 12/17/16 at 21:00 Polyethylene Glycol (Miralax) 17 gm BID PO Last administered on 01/09/17 08:52 ; Admin Dose 17 GM; Start 12/21/16 at 21:00 Miscellaneous Information 1 ea NOTE XX ; Start 12/21/16 at 17:30 Glucose (Glutose) 15 gm Q15M PRN PO DECREASED GLUCOSE; Start 12/21/16 at 17:30 Glucose (Glutose) 22.5 gm Q15M PRN PO DECREASED GLUCOSE; Start 12/21/16 at 17: 30 Dextrose (D50w Syringe) 25 ml Q15M PRN IV DECREASED GLUCOSE; Start 12/21/16 at 17:30 Dextrose (D50w Syringe) 50 ml Q15M PRN IV DECREASED GLUCOSE; Start 12/21/16 at 17:30 Glucagon (Glucagen) 1 mg Q15M PRN IM DECREASED GLUCOSE; Start 12/21/16 at 17:30 Glucose (Glutose) 15 gm Q15M PRN BUCCAL DECREASED GLUCOSE; Start 12/21/16 at 17 :30 Amlodipine Besylate (Norvasc) 5 mg BID PO Last administered on 01/09/17 08:52; Admin Dose 5 MG; Start 12/27/16 at 21:00 Amiodarone HCl (Cordarone) 200 mg DAILY PO Last administered on 01/09/17 08:52 ; Admin Dose 200 MG; Start 12/31/16 at 09:00 Lidocaine (Lidoderm) 1 patch DAILY TD Last administered on 01/09/17 08:52; Admin Dose 1 PATCH; Start 01/04/17 at 13:00 Haloperidol (Haldol) 1 mg Q6H PRN IM AGITATION Last administered on 01/09/17 14 :26; Admin Dose 1 MG; Start 01/08/17 at 11:00 Acetaminophen/ Hydrocodone Bitart ([place] (5/325)) 1 tab Q4H PRN PO pain; Start 01/08/17 at 14:30 MADELYN MIRANDA MD Jan 09, 2017 15:21
--- NOTE | 2017-01-09 17:28 | PN ---
Date/Time of Note Date/Time of Note DATE: 01/09/17 TIME: 17:27 Assessment/Plan VTE Prophylaxis VTE Prophylaxis Intervention: SCD's Lines/Catheters IV Catheter Type (from Nrs): Saline Lock Urinary Cath still in place: No Assessment/Plan Assessment/Plan 71 yo M presented with sepsis 2/2 proteus from source now sp abx treatment. Hospital course complicated by HCAP sp abx, acute on chronic back pain (imaging with spinal stenosis), LIU requiring intermittent HD (renal still following) and toxic/metabolic encephalopathy which now precludes home discharge. Also with urinary retention requiring straight caths. 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 sp abx for proteus UTI with resultant sepsis and HCAP +/- aspiration pna #pAF: cont bb, amio. #h/o EtOH abuse: out of withdrawal window #back pain: ortho on consult #DVT prophx: SCDs, SQH Provided in person update to patient's sister yesterday Subjective 24 Hr Interval Summary Free Text/Dictation Pt sleeping peacefully when I saw him this afternoon. UE restraints removed, still required 1-2 haldol PRNs Exam/Review of Systems Vital Signs Vitals Vital Signs Date Time Temp Pulse Resp B/P Pulse Ox O2 Delivery O2 Flow Rate FiO2 01/09/17 07:40 98.4 66 19 131/58 98 01/08/17 20:00 Nasal Cannula 2.0 Intake and Output 01/08/17 01/08/17 01/09/17 15:00 23:00 07:00 Intake Total 320 ml Balance 320 ml Exam laying flat, sleeping comfortably lungs clear rrr no mrg abd soft no rashes Results Result Diagram: 01/07/17 1355 01/09/17 0540 Results 24 hrs Laboratory Tests Test 01/09/17 05:00 01/09/17 05:40 Ammonia < 9 L Sodium Level 147 H Potassium Level 5.0 Chloride Level 116 H Carbon Dioxide Level 19 L Anion Gap 17 H Blood Urea Nitrogen 83 H Creatinine 8.09 H Glucose Level 82 Calcium Level 9.1 Vitamin B12 Level 487 Thyroid Stimulating Hormone (TSH) 14.100 H Medications Medications Current Medications Ondansetron HCl (Zofran Inj) 4 mg Q6H PRN IV NAUSEA AND/OR VOMITING Last administered on 12/24/16 12:08; Admin Dose 4 MG; Start 12/10/16 at 18:00 Magnesium Hydroxide (Milk Of Mag) 30 ml DAILY PRN PO CONSTIPATION Last administered on 12/29/16 08:56; Admin Dose 30 ML; Start 12/10/16 at 18:00 Bisacodyl (Dulcolax) 5 mg DAILY PRN PO CONSTIPATION; Start 12/10/16 at 18:00 Famotidine (Pepcid) 20 mg DAILY PO Last administered on 01/09/17 08:51; Admin Dose 20 MG; Start 12/11/16 at 09:00 Atorvastatin Calcium (Lipitor) 10 mg DAILY@21 PO Last administered on 01/08/17 20:28; Admin Dose 10 MG; Start 12/10/16 at 21:00 Heparin Sodium (Porcine) (Heparin (5000 Units/0.5 ml)) 5,000 unit BID SC Last administered on 01/08/17 20:30; Admin Dose 5,000 UNIT; Start 12/11/16 at 21:00 Metoprolol Tartrate (Lopressor) 50 mg BID PO Last administered on 01/09/17 08: 52; Admin Dose 50 MG; Start 12/17/16 at 21:00 Polyethylene Glycol (Miralax) 17 gm BID PO Last administered on 01/09/17 08:52 ; Admin Dose 17 GM; Start 12/21/16 at 21:00 Miscellaneous Information 1 ea NOTE XX ; Start 12/21/16 at 17:30 Glucose (Glutose) 15 gm Q15M PRN PO DECREASED GLUCOSE; Start 12/21/16 at 17:30 Glucose (Glutose) 22.5 gm Q15M PRN PO DECREASED GLUCOSE; Start 12/21/16 at 17: 30 Dextrose (D50w Syringe) 25 ml Q15M PRN IV DECREASED GLUCOSE; Start 12/21/16 at 17:30 Dextrose (D50w Syringe) 50 ml Q15M PRN IV DECREASED GLUCOSE; Start 12/21/16 at 17:30 Glucagon (Glucagen) 1 mg Q15M PRN IM DECREASED GLUCOSE; Start 12/21/16 at 17:30 Glucose (Glutose) 15 gm Q15M PRN BUCCAL DECREASED GLUCOSE; Start 12/21/16 at 17 :30 Amlodipine Besylate (Norvasc) 5 mg BID PO Last administered on 01/09/17 08:52; Admin Dose 5 MG; Start 12/27/16 at 21:00 Amiodarone HCl (Cordarone) 200 mg DAILY PO Last administered on 01/09/17 08:52 ; Admin Dose 200 MG; Start 12/31/16 at 09:00 Lidocaine (Lidoderm) 1 patch DAILY TD Last administered on 01/09/17 08:52; Admin Dose 1 PATCH; Start 01/04/17 at 13:00 Haloperidol (Haldol) 1 mg Q6H PRN IM AGITATION Last administered on 01/09/17 14 :26; Admin Dose 1 MG; Start 01/08/17 at 11:00 Acetaminophen/ Hydrocodone Bitart ([place] (5/325)) 1 tab Q4H PRN PO pain; Start 01/08/17 at 14:30 Procedures Procedures TSH high, b12 and ammonia ok NETTA SALOMON MD Jan 09, 2017 17:28
[2017-01-09 20:03] VITALS: BP 146/63; RESP 18
[2017-01-09] MEDS: ATORVASTATIN 10 MG TAB PO SCH (21:00)
[2017-01-10 07:28] LABS: CALCIUM 9.3 mg/dl (8.4-10.2); CREATININE 8.42 mg/dl (0.61-1.24); POTASSIUM 5.2 mmol/L (3.5-5.1)
[2017-01-10 07:53] VITALS: BP 118/53; RESP 18
[2017-01-10] MEDS: AMIODARONE 200 MG TAB PO SCH (08:55)
[2017-01-10] MEDS: METOPROLOL 50 MG TAB PO SCH ×2 (08:55→21:23)
[2017-01-10] MEDS: POLYETHYLENE GLYCOL 17 GM PACKET PO SCH ×2 (08:56→21:21)
[2017-01-10] MEDS: AMLODIPINE 5 MG TAB PO SCH ×2 (08:56→21:22)
[2017-01-10] MEDS: FAMOTIDINE 20 MG TAB PO SCH (08:56)
[2017-01-10] MEDS: HEPARIN 5,000 UNIT/0.5 ML VIAL SC SCH ×2 (08:56→21:26)
[2017-01-10] MEDS: LIDOCAINE 5% PATCH TD SCH (08:57)
--- NOTE | 2017-01-10 09:00 | PN ---
DATE: 01/08/2017 SUBJECTIVE: Urinary retention. The patient is sleeping most of the time. His sister happened to yoseph katty at his bedside and once a person tried to wake him up he would wake up, but then he goes back to naomy gonzales, and then if he does answer, he does answer was a soft voice, but then if one tells him to spea k a little louder he gets upset and, in fact, does scream. It looks like he is mostly depressed. OBJECTIVE VITAL SIGNS: His temperature is 97.8, blood pressure 120/61, pulse is 73, respirations 18. ABDOMEN: Soft. There is no abdominal mass palpable, and the patient has been getting in and out ca theterization. He also has been on dialysis. His CBC yesterday shows a white count of 12.3. BUN is 81, creatinine 7.6. PLAN: Continue to do in and out caths on him at least once every 12 hours, as he is still making ur ine, and he is not urinating. Dictated By: LAUREN GIL/RIKA Conf#: [id number] DID#: [id number]
--- NOTE | 2017-01-10 09:43 | CONS ---
Date/Time of Note Date/Time of Note DATE: 01/10/17 TIME: 09:41 Assessment/Plan Assessment/Plan Additional Assessment/Plan 1. Acute kidney injury, multifactorial, not improving despite being on IVF hydration, BUN/Cr persistently high ,.started on HD during this admission - now HD catheter discontinued we are monitoring as needed - makign good urine, but BUn/Cr slowly rising, 2. Hyponatremia - improved 3. Status post fall, which was a mechanical fall, but likely due to the hyponatremia. CT brain is negative. 4. Possible history of chronic kidney disease secondary to hypertensive nephrosclerosis. 5. History of hypertension. 6. History of gout. 7. History of hyperlipidemia. 8. Atrial fibrillation, rate controlled. 9. History of alcohol abuse. 10. Thrombocytopenia secondary to alcohol abuse. 11. sepsis due to UTI and bacteremia with Blood cx and urine Cx growing proteus - follow up blood cx negative 12. Moderate pleural effusion s/p Throacentesis 12/31/2016- 2.21 L Fluid removed PLAN: K 5.2 today- will give kayexalate 15 gram PO x 1 dose today URinary retention after mcdonald discontinued, S/p Urology consutl by - still requiring straight In and out for Intermittent retention pt had a HD on 12/29 and 12/30- then HD catheter has been discontinued S/p Right thoracentesis 12/31/16- 2.1 fluid removed Blood cx and Urine cx grew proteus - on IV abx - Follow up blood cx on 12/16/16 negative to date CXR showed no pulmonary congestion, stable right basilar infiltrates, BUN/Cr slowly rising, BP stable will give Sodium bicarbonate 50MEQ in D5W at 70 cc/hr x 1 liter then stop - if Renal function do not improve by tomorrow then we will plan for HD initiatino after talking to sister will continue to follow up Consultation Date/Type/Reason Admit Date/Time December 10, 2016 at 16:57 Type of Consultation: NEPHROLOGY Referring Provider: JACK JENNINGS [employer]URANCE TERRITORY MANAGER 24 HR Interval Summary Free Text/Dictation K slightly high< HCo3 low, pt is more alert today but still refusing food Exam/Review of Systems Vital Signs Vitals Vital Signs Date Time Temp Pulse Resp B/P Pulse Ox O2 Delivery O2 Flow Rate FiO2 01/10/17 07:53 98.0 74 18 118/53 96 01/08/17 20:00 Nasal Cannula 2.0 Intake and Output 01/09/17 01/09/17 01/10/17 15:00 23:00 07:00 Intake Total 200 ml 360 ml Output Total 300 ml Balance -100 ml 360 ml Exam more alert today, less violent Head: normocephalic Respiratory: other (Coarse breath sounds bilaterally, no wheezing) Cardiovascular: other (S1-S2 heard), regular rate and rhythm Gastrointestinal: bowel sounds, non-tender, soft Extremities: edema Results Result Diagram: 01/07/17 1355 01/10/17 0545 Results 24 hrs Laboratory Tests Test 01/10/17 05:45 Sodium Level 148 H Potassium Level 5.2 H Chloride Level 119 H Carbon Dioxide Level 19 L Anion Gap 15 Blood Urea Nitrogen 88 H Creatinine 8.42 H Glucose Level 103 Calcium Level 9.3 Free Thyroxine 1.56 Medications Medications Current Medications Ondansetron HCl (Zofran Inj) 4 mg Q6H PRN IV NAUSEA AND/OR VOMITING Last administered on 12/24/16 12:08; Admin Dose 4 MG; Start 12/10/16 at 18:00 Magnesium Hydroxide (Milk Of Mag) 30 ml DAILY PRN PO CONSTIPATION Last administered on 12/29/16 08:56; Admin Dose 30 ML; Start 12/10/16 at 18:00 Bisacodyl (Dulcolax) 5 mg DAILY PRN PO CONSTIPATION; Start 12/10/16 at 18:00 Famotidine (Pepcid) 20 mg DAILY PO Last administered on 01/09/17 08:51; Admin Dose 20 MG; Start 12/11/16 at 09:00 Atorvastatin Calcium (Lipitor) 10 mg DAILY@21 PO Last administered on 01/08/17 20:28; Admin Dose 10 MG; Start 12/10/16 at 21:00 Heparin Sodium (Porcine) (Heparin (5000 Units/0.5 ml)) 5,000 unit BID SC Last administered on 01/08/17 20:30; Admin Dose 5,000 UNIT; Start 12/11/16 at 21:00 Metoprolol Tartrate (Lopressor) 50 mg BID PO Last administered on 01/09/17 08: 52; Admin Dose 50 MG; Start 12/17/16 at 21:00 Polyethylene Glycol (Miralax) 17 gm BID PO Last administered on 01/09/17 08:52 ; Admin Dose 17 GM; Start 12/21/16 at 21:00 Miscellaneous Information 1 ea NOTE XX ; Start 12/21/16 at 17:30 Glucose (Glutose) 15 gm Q15M PRN PO DECREASED GLUCOSE; Start 12/21/16 at 17:30 Glucose (Glutose) 22.5 gm Q15M PRN PO DECREASED GLUCOSE; Start 12/21/16 at 17: 30 Dextrose (D50w Syringe) 25 ml Q15M PRN IV DECREASED GLUCOSE; Start 12/21/16 at 17:30 Dextrose (D50w Syringe) 50 ml Q15M PRN IV DECREASED GLUCOSE; Start 12/21/16 at 17:30 Glucagon (Glucagen) 1 mg Q15M PRN IM DECREASED GLUCOSE; Start 12/21/16 at 17:30 Glucose (Glutose) 15 gm Q15M PRN BUCCAL DECREASED GLUCOSE; Start 12/21/16 at 17 :30 Amlodipine Besylate (Norvasc) 5 mg BID PO Last administered on 01/09/17 08:52; Admin Dose 5 MG; Start 12/27/16 at 21:00 Amiodarone HCl (Cordarone) 200 mg DAILY PO Last administered on 01/09/17 08:52 ; Admin Dose 200 MG; Start 12/31/16 at 09:00 Lidocaine (Lidoderm) 1 patch DAILY TD Last administered on 01/09/17 08:52; Admin Dose 1 PATCH; Start 01/04/17 at 13:00 Haloperidol (Haldol) 1 mg Q6H PRN IM AGITATION Last administered on 01/09/17 14 :26; Admin Dose 1 MG; Start 01/08/17 at 11:00 Acetaminophen/ Hydrocodone Bitart ([place] (5/325)) 1 tab Q4H PRN PO pain; Start 01/08/17 at 14:30 MADELYN MIRANDA MD Jan 10, 2017 09:43
[2017-01-10] MEDS ORDERED: NA POLYST SULFON 15 GM/60 ML BTL PO ONE (10:00)
[2017-01-10] MEDS: HYDROCODONE/APAP (5/325) TAB PO PRN (10:39)
[2017-01-10] MEDS: SODIUM BICARBONATE (IV ADD) 50 MEQ in DEXTROSE 5% 1,000 ML IV SCH (10:42)
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
[2017-01-10] MEDS ORDERED: THIAMINE 100 MG TAB PO ONE (14:00)
[2017-01-10] MEDS: CYANOCOBALAMIN 1000 MCG INJ IM SCH (16:16)
[2017-01-10] MEDS ORDERED: LIDOCAINE 1% (MPF) 5 ML VIAL SC ONE (16:30)
--- NOTE | 2017-01-10 16:45 | PN ---
Date/Time of Note Date/Time of Note DATE: 01/10/17 TIME: 16:36 Assessment/Plan VTE Prophylaxis VTE Prophylaxis Intervention: SCD's Lines/Catheters IV Catheter Type (from Nrs): Saline Lock Urinary Cath still in place: No Assessment/Plan Chief Complaint/Hosp Course Assessment/Plan: 71 yo M presented with sepsis 2/2 proteus from source now sp abx treatment. Hospital course complicated by HCAP sp abx, acute on chronic back pain (imaging with spinal stenosis), LIU requiring intermittent HD (renal still following) and toxic/metabolic encephalopathy which now precludes home discharge. Also with urinary retention requiring straight caths. 1. metabolic encephalopathy/agitation - attempting to wean pain meds-->changed oxy to apap/hydrocodone - cont renal involvement for HD eval and electrolyte management, IVF's per renal today as well - cont haldol PRN - f/u TSH high, check ft4 - neuro consulted, MRI ordered - f/u this 2. dysphagia/poor PO tolerance: given agitation unlikely pt will tolerate NG/PEG - cont SLASH TRIMMER evals 3. urinary retention: as per , straight cath as needed 4. recent infections: ID following. sp abx for proteus UTI with resultant sepsis and HCAP +/- aspiration pna 5. pAF: cont bb, amio 6. h/o EtOH abuse: out of withdrawal window 7. back pain: ortho on consult 8. DVT prophx: SCDs, SQH Problems: Subjective 24 Hr Interval Summary Free Text/Dictation Pt had no acute events overnight, seen by renal team. Exam/Review of Systems Vital Signs Vitals Vital Signs Date Time Temp Pulse Resp B/P Pulse Ox O2 Delivery O2 Flow Rate FiO2 01/10/17 07:53 98.0 74 18 118/53 96 01/08/17 20:00 Nasal Cannula 2.0 Intake and Output 01/09/17 01/09/17 01/10/17 15:00 23:00 07:00 Intake Total 200 ml 360 ml Output Total 300 ml Balance -100 ml 360 ml Exam Gen: more alert today, less violent Head: normocephalic Respiratory: other (Coarse breath sounds bilaterally, no wheezing) Cardiovascular: other (S1-S2 heard), regular rate and rhythm Gastrointestinal: bowel sounds, non-tender, soft Extremities: edema Neuro: no focal deficits Results Result Diagram: 01/07/17 1355 01/10/17 0545 Results 24 hrs Laboratory Tests Test 01/10/17 05:45 Sodium Level 148 H Potassium Level 5.2 H Chloride Level 119 H Carbon Dioxide Level 19 L Anion Gap 15 Blood Urea Nitrogen 88 H Creatinine 8.42 H Glucose Level 103 Calcium Level 9.3 Free Thyroxine 1.56 Medications Medications Current Medications Ondansetron HCl (Zofran Inj) 4 mg Q6H PRN IV NAUSEA AND/OR VOMITING Last administered on 12/24/16 12:08; Admin Dose 4 MG; Start 12/10/16 at 18:00 Magnesium Hydroxide (Milk Of Mag) 30 ml DAILY PRN PO CONSTIPATION Last administered on 12/29/16 08:56; Admin Dose 30 ML; Start 12/10/16 at 18:00 Bisacodyl (Dulcolax) 5 mg DAILY PRN PO CONSTIPATION; Start 12/10/16 at 18:00 Famotidine (Pepcid) 20 mg DAILY PO Last administered on 01/09/17 08:51; Admin Dose 20 MG; Start 12/11/16 at 09:00 Atorvastatin Calcium (Lipitor) 10 mg DAILY@21 PO Last administered on 01/08/17 20:28; Admin Dose 10 MG; Start 12/10/16 at 21:00 Heparin Sodium (Porcine) (Heparin (5000 Units/0.5 ml)) 5,000 unit BID SC Last administered on 01/08/17 20:30; Admin Dose 5,000 UNIT; Start 12/11/16 at 21:00 Metoprolol Tartrate (Lopressor) 50 mg BID PO Last administered on 01/09/17 08: 52; Admin Dose 50 MG; Start 12/17/16 at 21:00 Polyethylene Glycol (Miralax) 17 gm BID PO Last administered on 01/09/17 08:52 ; Admin Dose 17 GM; Start 12/21/16 at 21:00 Miscellaneous Information 1 ea NOTE XX ; Start 12/21/16 at 17:30 Glucose (Glutose) 15 gm Q15M PRN PO DECREASED GLUCOSE; Start 12/21/16 at 17:30 Glucose (Glutose) 22.5 gm Q15M PRN PO DECREASED GLUCOSE; Start 12/21/16 at 17: 30 Dextrose (D50w Syringe) 25 ml Q15M PRN IV DECREASED GLUCOSE; Start 12/21/16 at 17:30 Dextrose (D50w Syringe) 50 ml Q15M PRN IV DECREASED GLUCOSE; Start 12/21/16 at 17:30 Glucagon (Glucagen) 1 mg Q15M PRN IM DECREASED GLUCOSE; Start 12/21/16 at 17:30 Glucose (Glutose) 15 gm Q15M PRN BUCCAL DECREASED GLUCOSE; Start 12/21/16 at 17 :30 Amlodipine Besylate (Norvasc) 5 mg BID PO Last administered on 01/09/17 08:52; Admin Dose 5 MG; Start 12/27/16 at 21:00 Amiodarone HCl (Cordarone) 200 mg DAILY PO Last administered on 01/09/17 08:52 ; Admin Dose 200 MG; Start 12/31/16 at 09:00 Lidocaine (Lidoderm) 1 patch DAILY TD Last administered on 01/09/17 08:52; Admin Dose 1 PATCH; Start 01/04/17 at 13:00 Haloperidol (Haldol) 1 mg Q6H PRN IM AGITATION Last administered on 01/09/17 14 :26; Admin Dose 1 MG; Start 01/08/17 at 11:00 Acetaminophen/ Hydrocodone Bitart 1 tab 1 tab Q4H PRN PO pain Last administered on 01/10/17 10:39; Admin Dose 1 TAB; Start 01/08/17 at 14:30 Sodium Bicarbonate/ Dextrose (Na Bicarb/D5W) 1,050 ml @ 70 mls/hr Q15H IV Last administered on 01/10/17 10:42; Admin Dose 70 MLS/HR; Start 01/10/17 at 10: 00 Cyanocobalamin (Vitamin B12 Inj) 1,000 mcg DAILY IM Last administered on 16:16; Admin Dose 1,000 MCG; Start 01/10/17 at 14:00 HAVEN SANDOVAL Jan 10, 2017 16:45
[2017-01-10 17:55] LABS: HEMATOCRIT 25.6 % (42.0-52.0); HEMOGLOBIN 8.3 g/dl (14.0-18.0)
[2017-01-10 20:59] VITALS: BP 116/59; RESP 18
[2017-01-10] MEDS: ATORVASTATIN 10 MG TAB PO SCH (21:22)
[2017-01-11] MEDS: SODIUM BICARBONATE (IV ADD) 50 MEQ in DEXTROSE 5% 1,000 ML IV SCH ×2 (01:00→16:00)
[2017-01-11 06:23] LABS: CALCIUM 8.8 mg/dl (8.4-10.2); CREATININE 8.62 mg/dl (0.61-1.24); POTASSIUM 4.1 mmol/L (3.5-5.1)
--- NOTE | 2017-01-11 06:36 | RADRPT ---
PROCEDURE: MR Brain without contrast. CLINICAL INDICATION: Altered mental status and chronic alcohol abuse TECHNIQUE: Sagittal and axial T1 weighted, axial T2 weighted, coronal GRE, axial diffusion weighte d with ADC mapping, and axial FLAIR imaging without contrast. COMPARISON: CT from 12/10/2016 FINDINGS: No diffusion weighted abnormalities are seen to suggest the presence of acute ischemia or recent inf arct. No hypointense signal abnormalities are seen on the GRE images to suggest the presence of blo od degradation products. There is no evidence of intracranial hemorrhage, mass effect, or midline sh ift. No extra-axial fluid collections are seen. Moderate cortical atrophy is present with ex vacuo d ilatation of the ventricles. Minimal chronic microvascular ischemic changes.. Normal flow voids ar e visible in the proximal intracranial arteries and dural sinuses, indicating patency. Minimal mucop eriosteal thickening of the ethmoids. Minimal increased signal is seen in both mastoids which may b e due to chronic mastoiditis.. IMPRESSION: Prominent cortical atrophy with presumed ex vacuo dilatation of the ventricles. Little chronic micr ovascular ischemic change for the degree of atrophy present. RPTAT: [facility] Physician Nia Date Time Electronically viewed and signed by Physician Nia on 01/11/2017 06:36 LE/
[2017-01-11] MEDS: AMIODARONE 200 MG TAB PO SCH (08:56)
[2017-01-11] MEDS: AMLODIPINE 5 MG TAB PO SCH ×2 (08:57→21:43)
[2017-01-11] MEDS: CYANOCOBALAMIN 1000 MCG INJ IM SCH (08:57)
[2017-01-11] MEDS: FAMOTIDINE 20 MG TAB PO SCH (08:57)
[2017-01-11] MEDS: METOPROLOL 50 MG TAB PO SCH ×2 (08:57→21:42)
[2017-01-11] MEDS: LIDOCAINE 5% PATCH TD SCH (08:57)
[2017-01-11] MEDS: POLYETHYLENE GLYCOL 17 GM PACKET PO SCH ×2 (08:57→21:43)
[2017-01-11] MEDS: HEPARIN 5,000 UNIT/0.5 ML VIAL SC SCH ×2 (08:58→21:44)
[2017-01-11] MEDS ORDERED: LIDOCAINE 1% (MPF) 5 ML VIAL SC ONE (10:00)
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
--- NOTE | 2017-01-11 13:49 | CONS ---
Date/Time of Note Date/Time of Note DATE: 01/11/17 TIME: 13:47 Assessment/Plan Assessment/Plan Additional Assessment/Plan Acute kidney injury with intermittent hemodialysis Preserved ejection fraction Status post fall Sepsis with bacteremia Paroxysmal atrial fibrillation, currently sinus rhythm History of hypertension Recent UTI Alcohol abuse -Blood pressure trend overall remains stable. Patient on Haldol as needed, given patient remaining in sinus rhythm, would DC amiodarone given interactions with antipsychotics. Electrolytes and fluid management as per our nephrology colleagues. Consultation Date/Type/Reason Admit Date/Time December 10, 2016 at 16:57 Type of Consultation: cv Referring Provider: NETTA SALOMON MD 24 HR Interval Summary Free Text/Dictation Denies shortness of breath, chest pain Exam/Review of Systems Vital Signs Vitals Vital Signs Date Time Temp Pulse Resp B/P Pulse Ox O2 Delivery O2 Flow Rate FiO2 01/10/17 20:59 98.0 87 18 116/59 97 01/08/17 20:00 Nasal Cannula 2.0 Intake and Output 01/10/17 01/10/17 01/11/17 15:00 23:00 07:00 Intake Total 310 ml 360 ml Output Total 500 ml 300 ml Balance -190 ml 60 ml Exam Sleeping, arousable and follows commands, no apparent distress, sister at bedside Head: normocephalic Respiratory: other (Coarse breath sounds bilaterally, no wheezing) Cardiovascular: other (S1-S2 heard), regular rate and rhythm Gastrointestinal: bowel sounds, non-tender, soft Extremities: edema (Trace) Results Result Diagram: 01/10/17 1711 01/11/17 0453 Results 24 hrs Laboratory Tests Test 01/10/17 17:11 01/11/17 04:53 Hemoglobin 8.3 L Hematocrit 25.6 L Sodium Level 148 H Potassium Level 4.1 Chloride Level 116 H Carbon Dioxide Level 19 L Anion Gap 17 H Blood Urea Nitrogen 87 H Creatinine 8.62 H Glucose Level 91 Calcium Level 8.8 Medications Medications Current Medications Ondansetron HCl (Zofran Inj) 4 mg Q6H PRN IV NAUSEA AND/OR VOMITING Last administered on 12/24/16 12:08; Admin Dose 4 MG; Start 12/10/16 at 18:00 Magnesium Hydroxide (Milk Of Mag) 30 ml DAILY PRN PO CONSTIPATION Last administered on 12/29/16 08:56; Admin Dose 30 ML; Start 12/10/16 at 18:00 Bisacodyl (Dulcolax) 5 mg DAILY PRN PO CONSTIPATION; Start 12/10/16 at 18:00 Famotidine (Pepcid) 20 mg DAILY PO Last administered on 01/11/17 08:57; Admin Dose 20 MG; Start 12/11/16 at 09:00 Atorvastatin Calcium (Lipitor) 10 mg DAILY@21 PO Last administered on 01/10/17 21:22; Admin Dose 10 MG; Start 12/10/16 at 21:00 Heparin Sodium (Porcine) (Heparin (5000 Units/0.5 ml)) 5,000 unit BID SC Last administered on 01/11/17 08:58; Admin Dose 5,000 UNIT; Start 12/11/16 at 21:00 Metoprolol Tartrate (Lopressor) 50 mg BID PO Last administered on 01/11/17 08: 57; Admin Dose 50 MG; Start 12/17/16 at 21:00 Polyethylene Glycol (Miralax) 17 gm BID PO Last administered on 01/11/17 08:57 ; Admin Dose 17 GM; Start 12/21/16 at 21:00 Miscellaneous Information 1 ea NOTE XX ; Start 12/21/16 at 17:30 Glucose (Glutose) 15 gm Q15M PRN PO DECREASED GLUCOSE; Start 12/21/16 at 17:30 Glucose (Glutose) 22.5 gm Q15M PRN PO DECREASED GLUCOSE; Start 12/21/16 at 17: 30 Dextrose (D50w Syringe) 25 ml Q15M PRN IV DECREASED GLUCOSE; Start 12/21/16 at 17:30 Dextrose (D50w Syringe) 50 ml Q15M PRN IV DECREASED GLUCOSE; Start 12/21/16 at 17:30 Glucagon (Glucagen) 1 mg Q15M PRN IM DECREASED GLUCOSE; Start 12/21/16 at 17:30 Glucose (Glutose) 15 gm Q15M PRN BUCCAL DECREASED GLUCOSE; Start 12/21/16 at 17 :30 Amlodipine Besylate (Norvasc) 5 mg BID PO Last administered on 01/11/17 08:57; Admin Dose 5 MG; Start 12/27/16 at 21:00 Amiodarone HCl (Cordarone) 200 mg DAILY PO Last administered on 01/11/17 08:56 ; Admin Dose 200 MG; Start 12/31/16 at 09:00 Lidocaine (Lidoderm) 1 patch DAILY TD Last administered on 01/11/17 08:57; Admin Dose 1 PATCH; Start 01/04/17 at 13:00 Haloperidol (Haldol) 1 mg Q6H PRN IM AGITATION Last administered on 01/09/17 14 :26; Admin Dose 1 MG; Start 01/08/17 at 11:00 Acetaminophen/ Hydrocodone Bitart 1 tab 1 tab Q4H PRN PO pain Last administered on 01/10/17 10:39; Admin Dose 1 TAB; Start 01/08/17 at 14:30 Sodium Bicarbonate/ Dextrose (Na Bicarb/D5W) 1,050 ml @ 70 mls/hr Q15H IV Last administered on 01/10/17 10:42; Admin Dose 70 MLS/HR; Start 01/10/17 at 10: 00 Cyanocobalamin (Vitamin B12 Inj) 1,000 mcg DAILY IM Last administered on 08:57; Admin Dose 1,000 MCG; Start 01/10/17 at 14:00 Zeyad Kelly DO Jan 11, 2017 13:49
--- NOTE | 2017-01-11 15:14 | RADRPT ---
PROCEDURE: XR Chest. CLINICAL INDICATION: PICC line placement TECHNIQUE: Single frontal view of the chest was obtained COMPARISON: 01/07/2017 FINDINGS: There is a new left-sided PICC line in place with its tip overlying the upper right atrium. The heart, mediastinum, and lungs are unchanged. There is a right lower lobe infiltrate and small right pleural effusion. The heart is normal in siz e. RPTAT: AA IMPRESSION: New PICC line in appropriate position. .Atilio Vasquez MD, MD Date Time Electronically viewed and signed by .Atilio Vasquez MD, MD on 01/11/2017 15:14 .S/
--- NOTE | 2017-01-11 15:52 | PN ---
Date/Time of Note Date/Time of Note DATE: 01/11/17 TIME: 15:47 Assessment/Plan VTE Prophylaxis VTE Prophylaxis Intervention: SCD's Lines/Catheters IV Catheter Type (from Nrs): Saline Lock Urinary Cath still in place: No Assessment/Plan Chief Complaint/Hosp Course Assessment/Plan: 71 yo M presented with sepsis 2/2 proteus from source now sp abx treatment. Hospital course complicated by HCAP sp abx, acute on chronic back pain (imaging with spinal stenosis), LIU requiring intermittent HD (renal still following) and toxic/metabolic encephalopathy which now precludes home discharge. Also with urinary retention requiring straight caths. 1. metabolic encephalopathy/agitation - attempting to wean pain meds - cont renal involvement for HD eval and electrolyte management, IVF's - d/c haldol PRN and lidoderm patch, continue Shipman prn - d/c amiodarone given potential interaction with antipsychotics - f/u CV and neuro rec's 2. dysphagia/poor PO tolerance: given agitation unlikely pt will tolerate NG/PEG - cont [facility]OCK[facility] evals 3. urinary retention: as per , straight cath as needed 4. recent infections: ID following. sp abx for proteus UTI with resultant sepsis and HCAP +/- aspiration pna 5. pAF: cont bb, amio 6. h/o EtOH abuse: out of withdrawal window 7. back pain: ortho on consult 8. DVT prophx: SCDs, SQH Problems: Subjective 24 Hr Interval Summary Free Text/Dictation Received PICC yesterday, seen by Neuro and CV teams. Exam/Review of Systems Vital Signs Vitals Vital Signs Date Time Temp Pulse Resp B/P Pulse Ox O2 Delivery O2 Flow Rate FiO2 01/10/17 20:59 98.0 87 18 116/59 97 01/08/17 20:00 Nasal Cannula 2.0 Intake and Output 01/10/17 01/10/17 01/11/17 15:00 23:00 07:00 Intake Total 310 ml 360 ml Output Total 500 ml 300 ml Balance -190 ml 60 ml Exam Gen: NAD presently Head: normocephalic Respiratory: other (Coarse breath sounds bilaterally, no wheezing) Cardiovascular: other (S1-S2 heard), regular rate and rhythm Gastrointestinal: bowel sounds, non-tender, soft Extremities: edema Neuro: no focal deficits Results Result Diagram: 01/10/17 1711 01/11/17 0453 Results 24 hrs Laboratory Tests Test 01/10/17 17:11 01/11/17 04:53 Hemoglobin 8.3 L Hematocrit 25.6 L Sodium Level 148 H Potassium Level 4.1 Chloride Level 116 H Carbon Dioxide Level 19 L Anion Gap 17 H Blood Urea Nitrogen 87 H Creatinine 8.62 H Glucose Level 91 Calcium Level 8.8 Medications Medications Current Medications Ondansetron HCl (Zofran Inj) 4 mg Q6H PRN IV NAUSEA AND/OR VOMITING Last administered on 12/24/16 12:08; Admin Dose 4 MG; Start 12/10/16 at 18:00 Magnesium Hydroxide (Milk Of Mag) 30 ml DAILY PRN PO CONSTIPATION Last administered on 12/29/16 08:56; Admin Dose 30 ML; Start 12/10/16 at 18:00 Bisacodyl (Dulcolax) 5 mg DAILY PRN PO CONSTIPATION; Start 12/10/16 at 18:00 Famotidine (Pepcid) 20 mg DAILY PO Last administered on 01/11/17 08:57; Admin Dose 20 MG; Start 12/11/16 at 09:00 Atorvastatin Calcium (Lipitor) 10 mg DAILY@21 PO Last administered on 01/10/17 21:22; Admin Dose 10 MG; Start 12/10/16 at 21:00 Heparin Sodium (Porcine) (Heparin (5000 Units/0.5 ml)) 5,000 unit BID SC Last administered on 01/11/17 08:58; Admin Dose 5,000 UNIT; Start 12/11/16 at 21:00 Metoprolol Tartrate (Lopressor) 50 mg BID PO Last administered on 01/11/17 08: 57; Admin Dose 50 MG; Start 12/17/16 at 21:00 Polyethylene Glycol (Miralax) 17 gm BID PO Last administered on 01/11/17 08:57 ; Admin Dose 17 GM; Start 12/21/16 at 21:00 Miscellaneous Information 1 ea NOTE XX ; Start 12/21/16 at 17:30 Glucose (Glutose) 15 gm Q15M PRN PO DECREASED GLUCOSE; Start 12/21/16 at 17:30 Glucose (Glutose) 22.5 gm Q15M PRN PO DECREASED GLUCOSE; Start 12/21/16 at 17: 30 Dextrose (D50w Syringe) 25 ml Q15M PRN IV DECREASED GLUCOSE; Start 12/21/16 at 17:30 Dextrose (D50w Syringe) 50 ml Q15M PRN IV DECREASED GLUCOSE; Start 12/21/16 at 17:30 Glucagon (Glucagen) 1 mg Q15M PRN IM DECREASED GLUCOSE; Start 12/21/16 at 17:30 Glucose (Glutose) 15 gm Q15M PRN BUCCAL DECREASED GLUCOSE; Start 12/21/16 at 17 :30 Amlodipine Besylate (Norvasc) 5 mg BID PO Last administered on 01/11/17 08:57; Admin Dose 5 MG; Start 12/27/16 at 21:00 Acetaminophen/ Hydrocodone Bitart 1 tab 1 tab Q4H PRN PO pain Last administered on 01/10/17 10:39; Admin Dose 1 TAB; Start 01/08/17 at 14:30 Sodium Bicarbonate/ Dextrose (Na Bicarb/D5W) 1,050 ml @ 70 mls/hr Q15H IV Last administered on 01/10/17 10:42; Admin Dose 70 MLS/HR; Start 01/10/17 at 10: 00 Cyanocobalamin (Vitamin B12 Inj) 1,000 mcg DAILY IM Last administered on 08:57; Admin Dose 1,000 MCG; Start 01/10/17 at 14:00 Quetiapine Fumarate (Seroquel) 25 mg DAILY PRN PO ANXIETY; Start 01/11/17 at 16: 00; Status UNV Procedures Procedures MRI brain IMPRESSION: Prominent cortical atrophy with presumed ex vacuo dilatation of the ventricles. Little chronic microvascular ischemic change for the degree of atrophy present. AHVEN SANDOVAL Jan 11, 2017 15:51
[2017-01-11] MEDS ORDERED: QUETIAPINE 25 MG TAB PO PRN (16:00)
--- NOTE | 2017-01-11 16:21 | RADRPT ---
PROCEDURE: US guidance for PICC line CLINICAL INDICATION: PICC line placement TECHNIQUE: Multiple real-time images were acquired of the patient's arm utilizing a high resolutio n transducer. This was performed by the PICC line nurse for venous access. COMPARISON: None FINDINGS: Ultrasound guidance for PICC line placement. IMPRESSION: Ultrasound guidance for PICC line placement. RPTAT: AA .Atilio Vasquez MD, MD Date Time Electronically viewed and signed by .Atilio Vasquez MD, on 01/11/2017 16:21 .S/
[2017-01-11] MEDS ORDERED: SOD CHLORIDE 0.9% 100 ML ONE (16:41)
[2017-01-11] MEDS: ATORVASTATIN 10 MG TAB PO SCH (21:42)
[2017-01-11] MEDS: HYDROCODONE/APAP (5/325) TAB PO PRN (21:42)
--- NOTE | 2017-01-11 21:56 | CONS ---
Date/Time of Note Date/Time of Note DATE: 01/11/17 TIME: 21:53 Assessment/Plan Assessment/Plan Additional Assessment/Plan 1. Acute kidney injury on CKD progressing worsening- pt had a HD on 12/29 and - then HD catheter has been discontinued - makign good urine, but BUn/Cr slowly rising, 2. Hyponatremia - improved 3. Status post fall, which was a mechanical fall, but likely due to the hyponatremia. CT brain is negative. 4. Possible history of chronic kidney disease secondary to hypertensive nephrosclerosis. 5. History of hypertension. 6. History of gout. 7. History of hyperlipidemia. 8. Atrial fibrillation, rate controlled. 9. History of alcohol abuse. 10. Thrombocytopenia secondary to alcohol abuse. 11. sepsis due to UTI and bacteremia with Blood cx and urine Cx growing proteus - follow up blood cx negative 12. Moderate pleural effusion s/p Throacentesis 12/31/2016- 2.21 L Fluid removed PLAN: K normal today after receiving kayexalate yesterday pt had a HD on 12/29 and 12/30- then HD catheter has been discontinued S/p Right thoracentesis 12/31/16- 2.1 fluid removed Being followed up by Urology for intermitten urinary retention CXR showed no pulmonary congestion, stable right basilar infiltrates, BUN/Cr slowly rising, CXR ordered for tomorrow AM will give Sodium bicarbonate 50MEQ in D5W at 70 cc/hr x 1 liter then stop - if Renal function do not improve by tomorrow then we will plan for HD initiatino after talking to sister will continue to follow up Consultation Date/Type/Reason Admit Date/Time December 10, 2016 at 16:57 Type of Consultation: NEPHROLOGY Referring Provider: NETTA SALOMON MD 24 HR Interval Summary Free Text/Dictation not makign enough urine, pt BUN/Cr slowly rising high, pt is agitated confused Exam/Review of Systems Vital Signs Vitals Vital Signs Date Time Temp Pulse Resp B/P Pulse Ox O2 Delivery O2 Flow Rate FiO2 01/10/17 20:59 98.0 87 18 116/59 97 01/08/17 20:00 Nasal Cannula 2.0 Intake and Output 01/10/17 01/10/17 01/11/17 15:00 23:00 07:00 Intake Total 310 ml 360 ml Output Total 500 ml 300 ml Balance -190 ml 60 ml Results Result Diagram: 01/10/17 1711 01/11/17 0453 Results 24 hrs Laboratory Tests Test 01/11/17 04:53 Sodium Level 148 H Potassium Level 4.1 Chloride Level 116 H Carbon Dioxide Level 19 L Anion Gap 17 H Blood Urea Nitrogen 87 H Creatinine 8.62 H Glucose Level 91 Calcium Level 8.8 Medications Medications Current Medications Ondansetron HCl (Zofran Inj) 4 mg Q6H PRN IV NAUSEA AND/OR VOMITING Last administered on 12/24/16 12:08; Admin Dose 4 MG; Start 12/10/16 at 18:00 Magnesium Hydroxide (Milk Of Mag) 30 ml DAILY PRN PO CONSTIPATION Last administered on 12/29/16 08:56; Admin Dose 30 ML; Start 12/10/16 at 18:00 Bisacodyl (Dulcolax) 5 mg DAILY PRN PO CONSTIPATION; Start 12/10/16 at 18:00 Famotidine (Pepcid) 20 mg DAILY PO Last administered on 01/11/17 08:57; Admin Dose 20 MG; Start 12/11/16 at 09:00 Atorvastatin Calcium (Lipitor) 10 mg DAILY@21 PO Last administered on 01/10/17 21:22; Admin Dose 10 MG; Start 12/10/16 at 21:00 Heparin Sodium (Porcine) (Heparin (5000 Units/0.5 ml)) 5,000 unit BID SC Last administered on 01/11/17 08:58; Admin Dose 5,000 UNIT; Start 12/11/16 at 21:00 Metoprolol Tartrate (Lopressor) 50 mg BID PO Last administered on 01/11/17 08: 57; Admin Dose 50 MG; Start 12/17/16 at 21:00 Polyethylene Glycol (Miralax) 17 gm BID PO Last administered on 01/11/17 08:57 ; Admin Dose 17 GM; Start 12/21/16 at 21:00 Miscellaneous Information 1 ea NOTE XX ; Start 12/21/16 at 17:30 Glucose (Glutose) 15 gm Q15M PRN PO DECREASED GLUCOSE; Start 12/21/16 at 17:30 Glucose (Glutose) 22.5 gm Q15M PRN PO DECREASED GLUCOSE; Start 12/21/16 at 17: 30 Dextrose (D50w Syringe) 25 ml Q15M PRN IV DECREASED GLUCOSE; Start 12/21/16 at 17:30 Dextrose (D50w Syringe) 50 ml Q15M PRN IV DECREASED GLUCOSE; Start 12/21/16 at 17:30 Glucagon (Glucagen) 1 mg Q15M PRN IM DECREASED GLUCOSE; Start 12/21/16 at 17:30 Glucose (Glutose) 15 gm Q15M PRN BUCCAL DECREASED GLUCOSE; Start 12/21/16 at 17 :30 Amlodipine Besylate (Norvasc) 5 mg BID PO Last administered on 01/11/17 08:57; Admin Dose 5 MG; Start 12/27/16 at 21:00 Acetaminophen/ Hydrocodone Bitart 1 tab 1 tab Q4H PRN PO pain Last administered on 01/10/17 10:39; Admin Dose 1 TAB; Start 01/08/17 at 14:30 Sodium Bicarbonate/ Dextrose (Na Bicarb/D5W) 1,050 ml @ 70 mls/hr Q15H IV Last administered on 01/10/17 10:42; Admin Dose 70 MLS/HR; Start 01/10/17 at 10: 00 Cyanocobalamin (Vitamin B12 Inj) 1,000 mcg DAILY IM Last administered on 08:57; Admin Dose 1,000 MCG; Start 01/10/17 at 14:00 Quetiapine Fumarate (Seroquel) 25 mg DAILY PRN PO ANXIETY; Start 01/11/17 at 16: 00 IV Flush (NS 10 ml) 10 ml PRN PRN IV IV PROTOCOL; Start 01/11/17 at 16:00 MADELYN MIRANDA MD Jan 11, 2017 21:56
[2017-01-11 21:59] VITALS: BP 118/55; PULSE 72
[2017-01-12] MEDS: SODIUM BICARBONATE (IV ADD) 50 MEQ in DEXTROSE 5% 1,000 ML IV SCH ×2 (06:06→22:00)
[2017-01-12 06:25] LABS: CALCIUM 9.1 mg/dl (8.4-10.2); CREATININE 8.84 mg/dl (0.61-1.24); POTASSIUM 4.8 mmol/L (3.5-5.1)
[2017-01-12 07:45] VITALS: BP 125/60; PULSE 71; RESP 16
[2017-01-12] MEDS: POLYETHYLENE GLYCOL 17 GM PACKET PO SCH ×2 (09:00→21:00)
--- NOTE | 2017-01-12 09:15 | RADRPT ---
PROCEDURE: XR Chest AP portable CLINICAL INDICATION: Short of breath, hypoxemia, follow up infiltrate TECHNIQUE: An AP portable radiograph of the chest was submitted. COMPARISON: 01/11/2017 FINDINGS: Support Hardware: The left upper extremity PICC catheter is been removed. Cardiovascular: The cardiovascular silhouette appears unremarkable except for persistent atheroscler otic change involving the aorta. Lung Carnes: Increased density is again seen at the right lung base. Pleural Spaces: A right pleural fluid accumulation is suspected as the costophrenic angle is obscure d. No pneumothorax is evident. Osseous Structures: There is osteophytic bridging seen to the thoracic spine. Soft Tissues: The soft tissues appear generous. IMPRESSION: 1. Persistent increased density at the right lung base suspicious for pulmonary consolidation and p ossibly pleural fluid accumulation. 2. Atherosclerotic aorta 3. Osteophytic bridging is again seen to the thoracic spine raising the possibility of diffuse idio pathic skeletal hyperostosis. Physician Alcides Date Time Electronically viewed and signed by Physician Alcides on 01/12/2017 09:14 /
[2017-01-12 09:55] LABS: AADO2 Arterial 39.1 mmHg (7.0-24.0); Arterial Base Excess -5.3 mmol/L (-3.0-3); Arterial COHb 0.3 % (0.0-3.0); Arterial Fraction of Oxyhgb 93.2 % (93.0-99.0); Arterial HCO3 18.6 mmol/L (22.0-26.0); Arterial MetHb 0.5 % (0.0-1.5); Arterial Total Hemglobin 7.7 g/dl (12.0-18.0); MODE ROOM AIR
[2017-01-12] MEDS: CYANOCOBALAMIN 1000 MCG INJ IM SCH (10:39)
[2017-01-12] MEDS: FAMOTIDINE 20 MG TAB PO SCH (10:39)
[2017-01-12] MEDS: AMLODIPINE 5 MG TAB PO SCH ×2 (10:40→21:00)
[2017-01-12] MEDS: METOPROLOL 50 MG TAB PO SCH ×2 (10:41→21:00)
[2017-01-12] MEDS: HEPARIN 5,000 UNIT/0.5 ML VIAL SC SCH ×2 (10:42→22:24)
--- NOTE | 2017-01-12 13:54 | PN ---
DATE: 01/12/2017 SUBJECTIVE: The patient is sleeping most of the time. At times he wakes up and screams and he inde ed has a sitter watching him. OBJECTIVE: VITAL SIGNS: Temperature is 98.3, pulse 71, respirations 16, blood pressure 125/60. The patient has been voiding, but at the bladder scan is done on him, and at 6:00 this morning his b ladder scan showed 408 mL, so it was less than 500, so they did not do a straight catheterization. Then, when repeated later on, they only had 200 mL, so they did not do a straight catheterization, e ither. LABORATORY DATA: CBC on 01/10/2017, hemoglobin 8.3, hematocrit 25.6. However, his BUN today is 93, creatinine 8.84. Electrolytes: Sodium 149, potassium 4.8, chloride 118, and CO2 20. The patient is on hemodialysis. IMPRESSION: From a urological standpoint, the patient he has had a prostatectomy and is not obstruc gaurav, but he is still unable to empty his bladder, so we will continue to check his bladder with blad chuyita scans and catheterize him if the bladder scan is over 500 or if he does urinate and his postvoid residual is over 300 mL. Dictated By: LAUREN GIL/RIKA Conf#: [id number] DID#: [id number]
--- NOTE | 2017-01-12 15:11 | PN ---
Date/Time of Note Date/Time of Note DATE: 01/12/17 TIME: 15:03 Assessment/Plan VTE Prophylaxis VTE Prophylaxis Intervention: heparin Lines/Catheters IV Catheter Type (from Nrs): Peripheral IV Urinary Cath still in place: No Assessment/Plan Assessment/Plan 1. CKD, stage 5, HD per nephrology 2. Confusion, more likely dementia related, and uremia 3. Urinary retention, in and out catheter 4. S/p Proteus mirabilis urinary tract infection with bacteremia, sepsis, treated, off of antibiotics 5. S/p HCAP, poss aspiration. treated, off of antibiotics 6. Hypertension.on norvac/metoprolol 7. Paroxysmal Atrial fibrillation, on metoprolol 8. History of alcohol abuse. 9. Chronic Gout. 10. Stag horn calculus likely from uric acid 11. Chronic compression fractures with spinal stenosis 2/2 DJD of spine 12. Dysphagia. Continue aspiration precautions. Diet as per speech therapy. 13. DVT prophylaxis: heparin Subjective 24 Hr Interval Summary Free Text/Dictation full alert but confused Exam/Review of Systems Vital Signs Vitals Vital Signs Date Time Temp Pulse Resp B/P Pulse Ox O2 Delivery O2 Flow Rate FiO2 01/12/17 07:45 98.3 71 16 125/60 98 Room Air 01/08/17 20:00 2.0 Intake and Output 01/11/17 01/11/17 01/12/17 15:00 23:00 07:00 Intake Total 400 ml 520 ml Balance 400 ml 520 ml Exam Constitutional: alert, well developed Head: atraumatic, normocephalic Eyes: EOMI, PERRL, nl conjunctiva, nl lids ENMT: mucosa pink and moist, nl external ears & nose, nl lips & teeth, nl nasal mucosa & septum Neck: non-tender, supple Respiratory: clear to auscultation, normal air movement, No congested cough, No crackles/rales, No diminished breath sounds, No intercostal retraction, No labored breathing, No other, No respirations, No tactile fremitus, No wheezing Cardiovascular: nl pulses, regular rate and rhythm, No S3, No S4, No bruits, No diastolic murmur, No edema, No gallop, No irregular rhythm, No jugular venous distention (JVD), No murmurs/extra sounds, No other, No rub, No systolic murmur Gastrointestinal: nl liver, spleen, non-tender, soft, No ascites, No bowel sounds, No distended, No firm, No hepatomegaly, No mass , No other, No rebound or guarding, No splenomegaly, No surgical scars, No tender Musculoskeletal: nl extremities to inspection Extremities: normal pulses, No calf tenderness, No clubbing, No cyanosis, No edema, No other, No palpable cord, No pitting pedal edema, No tenderness Neurological: [employer] II-XII intact, nl speech, nl strength Skin: nl turgor Lymph: nl lymph nodes Results Result Diagram: 01/10/17 1711 01/12/17 0437 Results 24 hrs Laboratory Tests Test 01/12/17 04:37 01/12/17 08:00 Sodium Level 149 H Potassium Level 4.8 Chloride Level 118 H Carbon Dioxide Level 20 L Anion Gap 16 Blood Urea Nitrogen 93 H Creatinine 8.84 H Glucose Level 93 Calcium Level 9.1 Blood Gas Specimen Source Blood arterial Arterial Blood Date Drawn 01/12/2017 9:30:46 AM Arterial Blood pH (Temp corrected) 7.414 Arterial Blood pCO2 (Temp correct) 29.8 L Arterial Blood pO2 (Temp corrected) 74.9 L Arterial Blood HCO3 18.6 L Arterial Blood Base Excess -5.3 L Arterial Blood Oxygen Saturation 94.0 L Alex Test N/A Arterial Blood Gas Puncture Site Right Brachial Arterial Blood Carboxyhemoglobin 0.3 Arterial Blood Methemoglobin 0.5 Blood Gas A-a O2 Differential 39.1 H Oxyhemoglobin Percent 93.2 Total Hemoglobin 7.7 L Blood Gas Temperature 37.0 Blood Gas Modality ROOM AIR FiO2 21.0 Blood Gas Notified Whom JLD Blood Gas Notified Time 01/12/2017 9:54:57 AM Medications Medications Current Medications Ondansetron HCl (Zofran Inj) 4 mg Q6H PRN IV NAUSEA AND/OR VOMITING Last administered on 12/24/16 12:08; Admin Dose 4 MG; Start 12/10/16 at 18:00 Magnesium Hydroxide (Milk Of Mag) 30 ml DAILY PRN PO CONSTIPATION Last administered on 12/29/16 08:56; Admin Dose 30 ML; Start 12/10/16 at 18:00 Bisacodyl (Dulcolax) 5 mg DAILY PRN PO CONSTIPATION; Start 12/10/16 at 18:00 Famotidine (Pepcid) 20 mg DAILY PO Last administered on 01/12/17 10:39; Admin Dose 20 MG; Start 12/11/16 at 09:00 Atorvastatin Calcium (Lipitor) 10 mg DAILY@21 PO Last administered on 01/11/17 21:42; Admin Dose 10 MG; Start 12/10/16 at 21:00 Heparin Sodium (Porcine) (Heparin (5000 Units/0.5 ml)) 5,000 unit BID SC Last administered on 01/12/17 10:42; Admin Dose 5,000 UNIT; Start 12/11/16 at 21:00 Metoprolol Tartrate (Lopressor) 50 mg BID PO Last administered on 01/12/17 10: 41; Admin Dose 50 MG; Start 12/17/16 at 21:00 Polyethylene Glycol (Miralax) 17 gm BID PO Last administered on 01/11/17 21:43 ; Admin Dose 17 GM; Start 12/21/16 at 21:00 Miscellaneous Information 1 ea NOTE XX ; Start 12/21/16 at 17:30 Glucose (Glutose) 15 gm Q15M PRN PO DECREASED GLUCOSE; Start 12/21/16 at 17:30 Glucose (Glutose) 22.5 gm Q15M PRN PO DECREASED GLUCOSE; Start 12/21/16 at 17: 30 Dextrose (D50w Syringe) 25 ml Q15M PRN IV DECREASED GLUCOSE; Start 12/21/16 at 17:30 Dextrose (D50w Syringe) 50 ml Q15M PRN IV DECREASED GLUCOSE; Start 12/21/16 at 17:30 Glucagon (Glucagen) 1 mg Q15M PRN IM DECREASED GLUCOSE; Start 12/21/16 at 17:30 Glucose (Glutose) 15 gm Q15M PRN BUCCAL DECREASED GLUCOSE; Start 12/21/16 at 17 :30 Amlodipine Besylate (Norvasc) 5 mg BID PO Last administered on 01/12/17 10:40; Admin Dose 5 MG; Start 12/27/16 at 21:00 Acetaminophen/ Hydrocodone Bitart 1 tab 1 tab Q4H PRN PO pain Last administered on 01/11/17 21:42; Admin Dose 1 TAB; Start 01/08/17 at 14:30 Sodium Bicarbonate/ Dextrose (Na Bicarb/D5W) 1,050 ml @ 70 mls/hr Q15H IV Last administered on 01/10/17 10:42; Admin Dose 70 MLS/HR; Start 01/10/17 at 10: 00 Cyanocobalamin (Vitamin B12 Inj) 1,000 mcg DAILY IM Last administered on 10:39; Admin Dose 1,000 MCG; Start 01/10/17 at 14:00 Quetiapine Fumarate (Seroquel) 25 mg DAILY PRN PO ANXIETY; Start 01/11/17 at 16: 00 IV Flush (NS 10 ml) 10 ml PRN PRN IV IV PROTOCOL; Start 01/11/17 at 16:00 MAURICE SAUCEDA MD Jan 12, 2017 15:11
--- NOTE | 2017-01-12 16:57 | CONS ---
Date/Time of Note Date/Time of Note DATE: 01/12/17 TIME: 16:55 Assessment/Plan Assessment/Plan Additional Assessment/Plan 1. Acute kidney injury on CKD progressing worsening- pt had a HD on 12/29 and - then HD catheter has been discontinued - makign good urine, but BUn/Cr slowly rising, 2. Hyponatremia - improved 3. Status post fall, which was a mechanical fall, but likely due to the hyponatremia. CT brain is negative. 4. Possible history of chronic kidney disease secondary to hypertensive nephrosclerosis. 5. History of hypertension. 6. History of gout. 7. History of hyperlipidemia. 8. Atrial fibrillation, rate controlled. 9. History of alcohol abuse. 10. Thrombocytopenia secondary to alcohol abuse. 11. sepsis due to UTI and bacteremia with Blood cx and urine Cx growing proteus - follow up blood cx negative 12. Moderate pleural effusion s/p Throacentesis 12/31/2016- 2.21 L Fluid removed PLAN: K normal today but BUN/Cr persisitently rising high pt had a HD on 12/29 and 12/30- then HD catheter has been discontinued S/p Right thoracentesis 12/31/16- 2.1 fluid removed Being followed up by Urology for intermitten urinary retention CXR showed no pulmonary congestion, dense right basilar infiltrates, BUN/Cr slowly rising d/w pt Sister about HD initiation she agreed for it and plan for catheter tomorrow will continue to follow up Consultation Date/Type/Reason Admit Date/Time December 10, 2016 at 16:57 Type of Consultation: NEPHROLOGY Referring Provider: NETTA SALOMON MD 24 HR Interval Summary Free Text/Dictation pt pulled out his PICC line, afebrile, BP stable Exam/Review of Systems Vital Signs Vitals Vital Signs Date Time Temp Pulse Resp B/P Pulse Ox O2 Delivery O2 Flow Rate FiO2 01/12/17 07:45 98.3 71 16 125/60 98 Room Air 01/08/17 20:00 2.0 Intake and Output 01/11/17 01/11/17 01/12/17 15:00 23:00 07:00 Intake Total 400 ml 520 ml Balance 400 ml 520 ml Results Result Diagram: 01/10/17 1711 01/12/17 0437 Results 24 hrs Laboratory Tests Test 01/12/17 04:37 01/12/17 08:00 Sodium Level 149 H Potassium Level 4.8 Chloride Level 118 H Carbon Dioxide Level 20 L Anion Gap 16 Blood Urea Nitrogen 93 H Creatinine 8.84 H Glucose Level 93 Calcium Level 9.1 Blood Gas Specimen Source Blood arterial Arterial Blood Date Drawn 01/12/2017 9:30:46 AM Arterial Blood pH (Temp corrected) 7.414 Arterial Blood pCO2 (Temp correct) 29.8 L Arterial Blood pO2 (Temp corrected) 74.9 L Arterial Blood HCO3 18.6 L Arterial Blood Base Excess -5.3 L Arterial Blood Oxygen Saturation 94.0 L Alex Test N/A Arterial Blood Gas Puncture Site Right Brachial Arterial Blood Carboxyhemoglobin 0.3 Arterial Blood Methemoglobin 0.5 Blood Gas A-a O2 Differential 39.1 H Oxyhemoglobin Percent 93.2 Total Hemoglobin 7.7 L Blood Gas Temperature 37.0 Blood Gas Modality ROOM AIR FiO2 21.0 Blood Gas Notified Whom JLD Blood Gas Notified Time 01/12/2017 9:54:57 AM Medications Medications Current Medications Ondansetron HCl (Zofran Inj) 4 mg Q6H PRN IV NAUSEA AND/OR VOMITING Last administered on 12/24/16 12:08; Admin Dose 4 MG; Start 12/10/16 at 18:00 Magnesium Hydroxide (Milk Of Mag) 30 ml DAILY PRN PO CONSTIPATION Last administered on 12/29/16 08:56; Admin Dose 30 ML; Start 12/10/16 at 18:00 Bisacodyl (Dulcolax) 5 mg DAILY PRN PO CONSTIPATION; Start 12/10/16 at 18:00 Famotidine (Pepcid) 20 mg DAILY PO Last administered on 01/12/17 10:39; Admin Dose 20 MG; Start 12/11/16 at 09:00 Atorvastatin Calcium (Lipitor) 10 mg DAILY@21 PO Last administered on 01/11/17 21:42; Admin Dose 10 MG; Start 12/10/16 at 21:00 Heparin Sodium (Porcine) (Heparin (5000 Units/0.5 ml)) 5,000 unit BID SC Last administered on 01/12/17 10:42; Admin Dose 5,000 UNIT; Start 12/11/16 at 21:00 Metoprolol Tartrate (Lopressor) 50 mg BID PO Last administered on 01/12/17 10: 41; Admin Dose 50 MG; Start 12/17/16 at 21:00 Polyethylene Glycol (Miralax) 17 gm BID PO Last administered on 01/11/17 21:43 ; Admin Dose 17 GM; Start 12/21/16 at 21:00 Miscellaneous Information 1 ea NOTE XX ; Start 12/21/16 at 17:30 Glucose (Glutose) 15 gm Q15M PRN PO DECREASED GLUCOSE; Start 12/21/16 at 17:30 Glucose (Glutose) 22.5 gm Q15M PRN PO DECREASED GLUCOSE; Start 12/21/16 at 17: 30 Dextrose (D50w Syringe) 25 ml Q15M PRN IV DECREASED GLUCOSE; Start 12/21/16 at 17:30 Dextrose (D50w Syringe) 50 ml Q15M PRN IV DECREASED GLUCOSE; Start 12/21/16 at 17:30 Glucagon (Glucagen) 1 mg Q15M PRN IM DECREASED GLUCOSE; Start 12/21/16 at 17:30 Glucose (Glutose) 15 gm Q15M PRN BUCCAL DECREASED GLUCOSE; Start 12/21/16 at 17 :30 Amlodipine Besylate (Norvasc) 5 mg BID PO Last administered on 01/12/17 10:40; Admin Dose 5 MG; Start 12/27/16 at 21:00 Acetaminophen/ Hydrocodone Bitart 1 tab 1 tab Q4H PRN PO pain Last administered on 01/11/17 21:42; Admin Dose 1 TAB; Start 01/08/17 at 14:30 Sodium Bicarbonate/ Dextrose (Na Bicarb/D5W) 1,050 ml @ 70 mls/hr Q15H IV Last administered on 01/10/17 10:42; Admin Dose 70 MLS/HR; Start 01/10/17 at 10: 00 Cyanocobalamin (Vitamin B12 Inj) 1,000 mcg DAILY IM Last administered on 10:39; Admin Dose 1,000 MCG; Start 01/10/17 at 14:00 Quetiapine Fumarate (Seroquel) 25 mg DAILY PRN PO ANXIETY; Start 01/11/17 at 16: 00 IV Flush (NS 10 ml) 10 ml PRN PRN IV IV PROTOCOL; Start 01/11/17 at 16:00 MADELYN MIRANDA MD Jan 12, 2017 16:57
[2017-01-12 20:00] VITALS: BP 116/57; RESP 19
[2017-01-12] MEDS: ATORVASTATIN 10 MG TAB PO SCH (21:00)
[2017-01-12 22:00] VITALS: BP 92/58; RESP 19
[2017-01-12] MEDS: QUETIAPINE 25 MG TAB PO SCH (22:22)
[2017-01-12] MEDS: HALOPERIDOL 5 MG INJ IM PRN (22:32)
[2017-01-13] VITALS (17 sets, daily range): BP systolic 89–152; BP diastolic 51–72; PULSE 77–88; RESP 18–20
[2017-01-13] MEDS: SODIUM BICARBONATE (IV ADD) 50 MEQ in DEXTROSE 5% 1,000 ML IV SCH ×2 (05:05→13:00)
[2017-01-13 05:57] LABS: ADD SCAN DIFF NO
[2017-01-13 06:13] LABS: BASOPHIL # 0.1 10^3/ul (0.0-0.1); BASOPHILS % 0.6 % (0.0-2.0); EOSINOPHILS # 0.2 10^3/ul (0.0-0.5); EOSINOPHILS % 2.1 % (0.0-7.0); HEMATOCRIT 24.1 % (42.0-52.0); HEMOGLOBIN 7.5 g/dl (14.0-18.0); LYMPHOCYTES # 1.1 10^3/ul (0.8-2.9); LYMPHOCYTES % 10.7 % (15.0-51.0); MEAN CORPUSCULAR HEMOGLOBIN 29.3 pg (29.0-33.0); MEAN CORPUSCULAR HGB CONC 31.1 g/dl (32.0-37.0); MEAN CORPUSCULAR VOLUME 94.1 fl (82.0-101.0); MEAN PLATELET VOLUME 11.6 fl (7.4-10.4); MONOCYTE # 0.6 10^3/ul (0.3-0.9); MONOCYTES % 5.4 % (0.0-11.0); NEUTROPHIL # 8.4 10^3/ul (1.6-7.5); NEUTROPHILS % 80.4 % (39.0-77.0); PLATELET COUNT 261 10^3/UL (140-415); RED BLOOD COUNT 2.56 10^6/ul (4.70-6.10); WHITE BLOOD COUNT 10.5 10^3/ul (4.8-10.8)
[2017-01-13 06:20] LABS: CALCIUM 9.4 mg/dl (8.4-10.2); CREATININE 9.17 mg/dl (0.61-1.24); POTASSIUM 4.7 mmol/L (3.5-5.1)
[2017-01-13] MEDS: METOPROLOL 50 MG TAB PO SCH ×2 (08:09→21:32)
[2017-01-13] MEDS: HEPARIN 5,000 UNIT/0.5 ML VIAL SC SCH ×2 (08:10→21:35)
[2017-01-13] MEDS: POLYETHYLENE GLYCOL 17 GM PACKET PO SCH ×2 (08:10→21:31)
[2017-01-13] MEDS: FAMOTIDINE 20 MG TAB PO SCH (08:10)
[2017-01-13] MEDS: AMLODIPINE 5 MG TAB PO SCH ×2 (08:10→21:32)
[2017-01-13] MEDS: QUETIAPINE 25 MG TAB PO SCH ×2 (08:10→21:31)
[2017-01-13] MEDS: CYANOCOBALAMIN 1000 MCG INJ IM SCH (08:12)
--- NOTE | 2017-01-13 10:55 | CONS ---
Date/Time of Note Date/Time of Note DATE: 01/13/17 TIME: 10:52 Assessment/Plan Assessment/Plan Additional Assessment/Plan 1. Acute kidney injury on CKD progressing worsening- pt had a HD on 12/29 and - then HD catheter has been discontinued - makign good urine, but BUn/Cr slowly rising, 2. Hyponatremia - improved 3. Status post fall, which was a mechanical fall, but likely due to the hyponatremia. CT brain is negative. 4. Possible history of chronic kidney disease secondary to hypertensive nephrosclerosis. 5. History of hypertension. 6. History of gout. 7. History of hyperlipidemia. 8. Atrial fibrillation, rate controlled. 9. History of alcohol abuse. 10. Thrombocytopenia secondary to alcohol abuse. 11. sepsis due to UTI and bacteremia with Blood cx and urine Cx growing proteus - follow up blood cx negative 12. Moderate pleural effusion s/p Throacentesis 12/31/2016- 2.21 L Fluid removed PLAN: pt had a HD on 12/29 and 12/30- then HD catheter has been discontinued S/p Right thoracentesis 12/31/16- 2.1 fluid removed Being followed up by Urology for intermitten urinary retention CXR showed no pulmonary congestion, dense right basilar infiltrates, BUN/Cr slowly rising K normal today but BUN/Cr persisitently rising high - s/p Code alicea yesterday so radiologist cancelled his HD catheter plan- will request Vascular surgery to do danielle or permacath d/w pt Sister about HD initiation she agreed for it and plan for catheter tomorrow will continue to follow up Consultation Date/Type/Reason Admit Date/Time December 10, 2016 at 16:57 Type of Consultation: NEPHROLOGY Referring Provider: NETTA SALOMON MD 24 HR Interval Summary Free Text/Dictation pt very agitated, on restraints Exam/Review of Systems Vital Signs Vitals Vital Signs Date Time Temp Pulse Resp B/P Pulse Ox O2 Delivery O2 Flow Rate FiO2 01/13/17 09:31 73 20 108/52 93 01/13/17 07:32 97.8 01/12/17 07:45 Room Air Intake and Output 01/12/17 01/12/17 01/13/17 15:00 23:00 07:00 Intake Total 420 ml 250 ml 50 ml Output Total 700 ml Balance 420 ml 250 ml -650 ml Exam agitated on restraints BP labile Head: normocephalic Respiratory: other (Coarse breath sounds bilaterally, no wheezing) Cardiovascular: other (S1-S2 heard), regular rate and rhythm Gastrointestinal: bowel sounds, non-tender, soft Extremities: edema Results Result Diagram: 01/13/17 0530 01/13/17 0530 Results 24 hrs Laboratory Tests Test 01/13/17 05:30 White Blood Count 10.5 Red Blood Count 2.56 L Hemoglobin 7.5 L Hematocrit 24.1 L Mean Corpuscular Volume 94.1 Mean Corpuscular Hemoglobin 29.3 Mean Corpuscular Hemoglobin Concent 31.1 L Red Cell Distribution Width 16.0 H Platelet Count 261 Mean Platelet Volume 11.6 H Neutrophils % 80.4 H Lymphocytes % 10.7 L Monocytes % 5.4 Eosinophils % 2.1 Basophils % 0.6 Nucleated Red Blood Cells % 0.0 Neutrophils # 8.4 H Lymphocytes # 1.1 Monocytes # 0.6 Eosinophils # 0.2 Basophils # 0.1 Nucleated Red Blood Cells # 0.0 Sodium Level 147 H Potassium Level 4.7 Chloride Level 116 H Carbon Dioxide Level 19 L Anion Gap 17 H Blood Urea Nitrogen 93 H Creatinine 9.17 H Glucose Level 89 Calcium Level 9.4 Medications Medications Current Medications Ondansetron HCl (Zofran Inj) 4 mg Q6H PRN IV NAUSEA AND/OR VOMITING Last administered on 12/24/16 12:08; Admin Dose 4 MG; Start 12/10/16 at 18:00 Magnesium Hydroxide (Milk Of Mag) 30 ml DAILY PRN PO CONSTIPATION Last administered on 12/29/16 08:56; Admin Dose 30 ML; Start 12/10/16 at 18:00 Bisacodyl (Dulcolax) 5 mg DAILY PRN PO CONSTIPATION; Start 12/10/16 at 18:00 Famotidine (Pepcid) 20 mg DAILY PO Last administered on 01/12/17 10:39; Admin Dose 20 MG; Start 12/11/16 at 09:00 Atorvastatin Calcium (Lipitor) 10 mg DAILY@21 PO Last administered on 01/11/17 21:42; Admin Dose 10 MG; Start 12/10/16 at 21:00 Heparin Sodium (Porcine) (Heparin (5000 Units/0.5 ml)) 5,000 unit BID SC Last administered on 01/12/17 22:24; Admin Dose 5,000 UNIT; Start 12/11/16 at 21:00 Metoprolol Tartrate (Lopressor) 50 mg BID PO Last administered on 01/12/17 10: 41; Admin Dose 50 MG; Start 12/17/16 at 21:00 Polyethylene Glycol (Miralax) 17 gm BID PO Last administered on 01/11/17 21:43 ; Admin Dose 17 GM; Start 12/21/16 at 21:00 Miscellaneous Information 1 ea NOTE XX ; Start 12/21/16 at 17:30 Glucose (Glutose) 15 gm Q15M PRN PO DECREASED GLUCOSE; Start 12/21/16 at 17:30 Glucose (Glutose) 22.5 gm Q15M PRN PO DECREASED GLUCOSE; Start 12/21/16 at 17: 30 Dextrose (D50w Syringe) 25 ml Q15M PRN IV DECREASED GLUCOSE; Start 12/21/16 at 17:30 Dextrose (D50w Syringe) 50 ml Q15M PRN IV DECREASED GLUCOSE; Start 12/21/16 at 17:30 Glucagon (Glucagen) 1 mg Q15M PRN IM DECREASED GLUCOSE; Start 12/21/16 at 17:30 Glucose (Glutose) 15 gm Q15M PRN BUCCAL DECREASED GLUCOSE; Start 12/21/16 at 17 :30 Amlodipine Besylate (Norvasc) 5 mg BID PO Last administered on 01/12/17 10:40; Admin Dose 5 MG; Start 12/27/16 at 21:00 Acetaminophen/ Hydrocodone Bitart 1 tab 1 tab Q4H PRN PO pain Last administered on 01/11/17 21:42; Admin Dose 1 TAB; Start 01/08/17 at 14:30 Sodium Bicarbonate/ Dextrose (Na Bicarb/D5W) 1,050 ml @ 70 mls/hr Q15H IV Last administered on 01/13/17 05:05; Admin Dose 70 MLS/HR; Start 01/10/17 at 10: 00 Cyanocobalamin (Vitamin B12 Inj) 1,000 mcg DAILY IM Last administered on 08:12; Admin Dose 1,000 MCG; Start 01/10/17 at 14:00 IV Flush (NS 10 ml) 10 ml PRN PRN IV IV PROTOCOL; Start 01/11/17 at 16:00 Quetiapine Fumarate (Seroquel) 25 mg BID PO Last administered on 01/12/17 22:22 ; Admin Dose 25 MG; Start 01/12/17 at 21:00 Haloperidol (Haldol) 5 mg Q4 PRN IM Anxiety Last administered on 01/12/17 22: 32; Admin Dose 5 MG; Start 01/12/17 at 20:00 MADELYN MIRANDA MD Jan 13, 2017 10:54
[2017-01-13] MEDS ORDERED: HEPARIN 1000 UNITS/ML 10 ML INJ ONE (15:37)
--- NOTE | 2017-01-13 16:56 | OPR ---
Date/Time of Note Date/Time of Note DATE: 01/13/17 TIME: 16:55 Operative Report Free Text/Dictation DATE OF OPERATION: 01/13/2017 SURGEON: Lino Roberto MD PREOPERATIVE DIAGNOSIS: Renal Failure POSTOPERATIVE DIAGNOSIS: same ANESTHESIA: Local BLOOD LOSS: minimal COMPLICATIONS: None. ACCESS: Right common femoral vein INDICATIONS: This is a 71 year-old male with CKD progressing to renal failure requiring urgent dialysis. Patient and family have been informed of the alternatives, risks, and benefits. Risks including but not limited to bleeding, thrombosis, embolization, myocardial infarction, , device malfunction, infection, pneumothorax, nephrotoxicity and patient has agreed to proceed. PROCEDURE: 1. Ultrasound guided access of right common femoral vein 2. Urgent Right common femoral vein non-tunneled hemodialysis catheter placement DESCRIPTION: The patient was in supine position in his bed. Bed was placed in slight Trendelenburg position and the groin was prepped and draped with sterile technique. The central catheter was flushed with heparin to ensure function of each port. Landmarks were identified and the skin entry site was chosen using ultrasound guidance. The skin And subcutaneous tissue were anesthetized with 1% lidocaine. The vein was then located with a needle with a 10 mL syringe using ultrasound guidance. The needle was then directed towards the vein and was entered. The needle position was secured and syringe was removed. The hub was occluded to prevent venous air embolus. The guidewire was passed easily and the needle was removed while the wire was held in place. A small incision was then made at the point of the wire entry. The dilator was placed over the wire and the tract gently dilated. The catheter was fed over the wire, ensuring the wire exited from the port before advancing the catheter. The catheter was inserted to the desired depth and the wire removed. Each port was aspirated to ensure adequate blood flow and then flushed with heparinized saline solution. The catheter was secured in place with a 2-0 nylon suture and a sterile dressing was applied. The patient tolerated the procedure well and was in stable condition. All instrument, sponge and needle counts were correct 2. LINO ROBERTO MD Jan 13, 2017 16:56
--- NOTE | 2017-01-13 17:38 | PN ---
Date/Time of Note Date/Time of Note DATE: 01/13/17 TIME: 17:35 Assessment/Plan VTE Prophylaxis VTE Prophylaxis Intervention: heparin Lines/Catheters IV Catheter Type (from Nrs): Peripheral IV Urinary Cath still in place: No Assessment/Plan Assessment/Plan 1. CKD, stage 5, HD catheter placement today, follow up with nephrology for HD 2. Confusion, more likely dementia related, part may due to uremia 3. Urinary retention, in and out catheter 4. S/p Proteus mirabilis urinary tract infection with bacteremia, sepsis, treated, off of antibiotics 5. S/p HCAP, poss aspiration. treated, off of antibiotics 6. Hypertension.on norvac/metoprolol 7. Paroxysmal Atrial fibrillation, on metoprolol 8. History of alcohol abuse. 9. Chronic Gout. 10. Stag horn calculus likely from uric acid 11. Chronic compression fractures with spinal stenosis 2/2 DJD of spine 12. Dysphagia. Continue aspiration precautions. Diet as per speech therapy. 13. DVT prophylaxis: heparin Subjective 24 Hr Interval Summary Free Text/Dictation just comes back from femoral HD catheter placement. calm, no distress. Exam/Review of Systems Vital Signs Vitals Vital Signs Date Time Temp Pulse Resp B/P Pulse Ox O2 Delivery O2 Flow Rate FiO2 01/13/17 14:08 76 20 117/58 97 01/13/17 07:32 97.8 01/12/17 07:45 Room Air Intake and Output 01/12/17 01/12/17 01/13/17 15:00 23:00 07:00 Intake Total 420 ml 250 ml 50 ml Output Total 700 ml Balance 420 ml 250 ml -650 ml Exam Constitutional: alert, well developed Head: atraumatic, normocephalic Eyes: EOMI, PERRL, nl conjunctiva, nl lids ENMT: nl external ears & nose, nl lips & teeth, nl nasal mucosa & septum Neck: non-tender, supple Respiratory: clear to auscultation, normal air movement, No congested cough, No crackles/rales, No diminished breath sounds, No intercostal retraction, No labored breathing, No other, No respirations, No tactile fremitus, No wheezing Cardiovascular: nl pulses, regular rate and rhythm, No S3, No S4, No bruits, No diastolic murmur, No edema, No gallop, No irregular rhythm, No jugular venous distention (JVD), No murmurs/extra sounds, No other, No rub, No systolic murmur Gastrointestinal: nl liver, spleen, non-tender, soft, No ascites, No bowel sounds, No distended, No firm, No hepatomegaly, No mass , No other, No rebound or guarding, No splenomegaly, No surgical scars, No tender Musculoskeletal: nl extremities to inspection Extremities: normal pulses, No calf tenderness, No clubbing, No cyanosis, No edema, No other, No palpable cord, No pitting pedal edema, No tenderness Neurological: [employer] II-XII intact, confused Results Result Diagram: 01/13/17 0530 01/13/17 0530 Results 24 hrs Laboratory Tests Test 01/13/17 05:30 White Blood Count 10.5 Red Blood Count 2.56 L Hemoglobin 7.5 L Hematocrit 24.1 L Mean Corpuscular Volume 94.1 Mean Corpuscular Hemoglobin 29.3 Mean Corpuscular Hemoglobin Concent 31.1 L Red Cell Distribution Width 16.0 H Platelet Count 261 Mean Platelet Volume 11.6 H Neutrophils % 80.4 H Lymphocytes % 10.7 L Monocytes % 5.4 Eosinophils % 2.1 Basophils % 0.6 Nucleated Red Blood Cells % 0.0 Neutrophils # 8.4 H Lymphocytes # 1.1 Monocytes # 0.6 Eosinophils # 0.2 Basophils # 0.1 Nucleated Red Blood Cells # 0.0 Sodium Level 147 H Potassium Level 4.7 Chloride Level 116 H Carbon Dioxide Level 19 L Anion Gap 17 H Blood Urea Nitrogen 93 H Creatinine 9.17 H Glucose Level 89 Calcium Level 9.4 Medications Medications Current Medications Ondansetron HCl (Zofran Inj) 4 mg Q6H PRN IV NAUSEA AND/OR VOMITING Last administered on 12/24/16 12:08; Admin Dose 4 MG; Start 12/10/16 at 18:00 Magnesium Hydroxide (Milk Of Mag) 30 ml DAILY PRN PO CONSTIPATION Last administered on 12/29/16 08:56; Admin Dose 30 ML; Start 12/10/16 at 18:00 Bisacodyl (Dulcolax) 5 mg DAILY PRN PO CONSTIPATION; Start 12/10/16 at 18:00 Famotidine (Pepcid) 20 mg DAILY PO Last administered on 01/12/17 10:39; Admin Dose 20 MG; Start 12/11/16 at 09:00 Atorvastatin Calcium (Lipitor) 10 mg DAILY@21 PO Last administered on 01/11/17 21:42; Admin Dose 10 MG; Start 12/10/16 at 21:00 Heparin Sodium (Porcine) (Heparin (5000 Units/0.5 ml)) 5,000 unit BID SC Last administered on 01/12/17 22:24; Admin Dose 5,000 UNIT; Start 12/11/16 at 21:00 Metoprolol Tartrate (Lopressor) 50 mg BID PO Last administered on 01/12/17 10: 41; Admin Dose 50 MG; Start 12/17/16 at 21:00 Polyethylene Glycol (Miralax) 17 gm BID PO Last administered on 01/11/17 21:43 ; Admin Dose 17 GM; Start 12/21/16 at 21:00 Miscellaneous Information 1 ea NOTE XX ; Start 12/21/16 at 17:30 Glucose (Glutose) 15 gm Q15M PRN PO DECREASED GLUCOSE; Start 12/21/16 at 17:30 Glucose (Glutose) 22.5 gm Q15M PRN PO DECREASED GLUCOSE; Start 12/21/16 at 17: 30 Dextrose (D50w Syringe) 25 ml Q15M PRN IV DECREASED GLUCOSE; Start 12/21/16 at 17:30 Dextrose (D50w Syringe) 50 ml Q15M PRN IV DECREASED GLUCOSE; Start 12/21/16 at 17:30 Glucagon (Glucagen) 1 mg Q15M PRN IM DECREASED GLUCOSE; Start 12/21/16 at 17:30 Glucose (Glutose) 15 gm Q15M PRN BUCCAL DECREASED GLUCOSE; Start 12/21/16 at 17 :30 Amlodipine Besylate (Norvasc) 5 mg BID PO Last administered on 01/12/17 10:40; Admin Dose 5 MG; Start 12/27/16 at 21:00 Acetaminophen/ Hydrocodone Bitart 1 tab 1 tab Q4H PRN PO pain Last administered on 01/11/17 21:42; Admin Dose 1 TAB; Start 01/08/17 at 14:30 Sodium Bicarbonate/ Dextrose (Na Bicarb/D5W) 1,050 ml @ 70 mls/hr Q15H IV Last administered on 01/13/17 05:05; Admin Dose 70 MLS/HR; Start 01/10/17 at 10: 00 Cyanocobalamin (Vitamin B12 Inj) 1,000 mcg DAILY IM Last administered on 08:12; Admin Dose 1,000 MCG; Start 01/10/17 at 14:00 IV Flush (NS 10 ml) 10 ml PRN PRN IV IV PROTOCOL; Start 01/11/17 at 16:00 Quetiapine Fumarate (Seroquel) 25 mg BID PO Last administered on 01/12/17 22:22 ; Admin Dose 25 MG; Start 01/12/17 at 21:00 Haloperidol (Haldol) 5 mg Q4 PRN IM Anxiety Last administered on 01/12/17 22: 32; Admin Dose 5 MG; Start 01/12/17 at 20:00 MAURICE SAUCEDA MD Jan 13, 2017 17:37
--- NOTE | 2017-01-13 18:26 | CONS ---
DATE OF ADMISSION: 12/10/2016 DATE OF CONSULTATION: 01/13/2017 VASCULAR SURGERY CONSULTATION Dear Doctors: Mr. Keyshawn NAIR is a 71-year-old gentleman who presented to [facility] with a plethora of medical conditions who currently has chronic kidney disease stage V, maria elena t has progressed to renal failure. As of recent, the patient had a chest wall catheter that had bee n pulled as the patient is incoherent and requires a new dialysis catheter urgently for dialysis. V ascular surgery consultation was obtained and upon evaluation of the patient, unfortunately is not c oherent and unable to answer any questions. I have left a message to discuss further with the famil y regarding his past medical history. REVIEW OF SYSTEMS: Unable to ascertain as the patient is not coherent to answer any questions. PAST MEDICAL HISTORY: Entails chronic kidney disease stage V, impending end-stage renal, hyponatrem ia, hypertension, gout, hyperlipidemia, atrial fibrillation, history of alcohol abuse, thrombocytope shaheed secondary to alcohol abuse, history of urosepsis, history of pleural effusion, status post thora centesis on 12/31/2016, intermittent urinary retention, recent status post fall secondary to his alc ohol dependence. PAST SURGICAL HISTORY: Right hip arthroplasty, prostatectomy, kyphoplasty, left knee arthroscopic s urgery, appendectomy and tonsillectomy. ALLERGIES: PENICILLIN, ADHESIVE AND LATEX. SOCIAL HISTORY: Patient is a previous smoker, current drinker, many beers per day, smokes marijuana . Denies IV drug abuse. PHYSICAL EXAMINATION: GENERAL: Patient awake upon stimulation, otherwise unable to be oriented to time and place. HEENT: Normocephalic, atraumatic. Conjunctivae clear. Mucosa moist. NECK: Supple. No carotid bruit. PULMONARY: Bilateral crackles at the bases. Good airway entry. CARDIOVASCULAR: S1, S2 present. Irregularly irregular. ABDOMEN: Soft, nontender, nondistended. Bowel sounds positive. EXTREMITIES: Right lower extremity palpable femoral pulse, nonpalpable pedal pulse. Motor, sensory seems to be intact. Capillary refill 3 seconds. Left lower extremity palpable femoral pulse, nonpalpable pedal pulse. Motor and sensory seems to be intact. Capillary refill 3 seconds. ASSESSMENT AND PLAN: 1. Chronic kidney disease, impending end-stage renal: It seems the patient's chronic kidney diseas e has gotten worse during his admission to the hospital and requiring urgent dialysis, as he has pul led out his chest wall catheter. We will plan for an urgent Norris catheter placement in the right common femoral vein for now to temporize his current medical status and will plan for eventual Perm Cath catheter and fistula creation if needed. 2. We will plan to obtain bilateral upper extremity vein mapping in order to delineate for possible fistula creation. 3. We will plan to place a 3 lumen dialysis catheter so the extra port can be used for a PICC line f or nursing staff for IV fluid hydration. medications and blood draws. 4. Optimize vascular status (BP meds, diet, nutrition, exercise, sugar control, antiplatelets). 5. Discussed programs for alcohol cessation and smoking cessation. 6. Discussed findings, plan and management with the primary service. Thank you for allowing us to partake in the care of your patient. Please call with any questions. Dictated By: JANIS BHATTI/RIKA Conf#: [id number] DID#: [id number]
[2017-01-13] MEDS: ATORVASTATIN 10 MG TAB PO SCH (21:31)
[2017-01-14] VITALS (17 sets, daily range): BP systolic 111–161; BP diastolic 56–76; PULSE 77–80; RESP 18–20
[2017-01-14] MEDS: SODIUM BICARBONATE (IV ADD) 50 MEQ in DEXTROSE 5% 1,000 ML IV SCH ×2 (03:41→23:40)
[2017-01-14 06:26] LABS: CALCIUM 8.5 mg/dl (8.4-10.2); CREATININE 5.35 mg/dl (0.61-1.24); POTASSIUM 3.5 mmol/L (3.5-5.1)
[2017-01-14] MEDS: QUETIAPINE 25 MG TAB PO SCH ×2 (08:06→21:48)
[2017-01-14] MEDS: METOPROLOL 50 MG TAB PO SCH ×2 (08:06→21:49)
[2017-01-14] MEDS: AMLODIPINE 5 MG TAB PO SCH ×2 (08:06→21:49)
[2017-01-14] MEDS: POLYETHYLENE GLYCOL 17 GM PACKET PO SCH ×2 (08:06→21:49)
[2017-01-14] MEDS: FAMOTIDINE 20 MG TAB PO SCH (08:06)
[2017-01-14] MEDS: HEPARIN 5,000 UNIT/0.5 ML VIAL SC SCH ×2 (08:07→21:53)
[2017-01-14] MEDS: CYANOCOBALAMIN 1000 MCG INJ IM SCH (08:07)
--- NOTE | 2017-01-14 08:18 | PN ---
DATE: 01/14/2017 SUBJECTIVE: The patient has urinary retention and last night when he was catheterized there was juana e bleeding. The patient is awake, and he did not talk to me today and he even tried to read my name on my badge. When asked if he has any pain, he said no, but then he falls back and goes to sleep. OBJECTIVE: VITAL SIGNS: Temperature is 97.6, pulse is 67, respirations 19, blood pressure 121/59. ABDOMEN: Soft. Bladder is not distended. GENITALIA: External genitalia looks normal. There is no hematuria now. The patient has been on hemodialysis and therefore he makes very little urine. LABORATORY: Last CBC shows a white count of 10.5, hemoglobin 7.5, hematocrit 24.1. BUN is 48, crea tinine 5.35. IMPRESSION: The patient does have a history of prostate cancer, status post radical prostatectomy. He is in renal failure and is on hemodialysis, and the hematuria is most likely traumatic from the catheterization. The patient has not been able to urinate and has urinary retention. PLAN: Continue to check his postvoid residual should he void, and if the postvoid residual is over 300, do a straight cath on him, or if he does not void and his bladder volume is over 500, then do a straight cath on him. Dictated By: LAUREN GIL/RIKA Conf#: [id number] DID#: [id number]
[2017-01-14] MEDS: HALOPERIDOL 5 MG INJ IM PRN (09:12)
--- NOTE | 2017-01-14 10:08 | RADRPT ---
PROCEDURE: US upper extremity arterial. CLINICAL INDICATION: Pain, ESRD TECHNIQUE: Multiple sonographic images of the bilateral upper extremity arteries was obtained util izing grayscale, color-flow, compressive sonography and doppler imaging. The images were reviewed o n a PACS workstation. COMPARISON: None. FINDINGS: Velocities and waveforms were obtained as described below. Right arm Right subclavian artery: 105 cm/s; triphasic waveforms Right axillary artery: 107 cm/s; triphasic waveforms Right brachial artery: 111 cm/s; triphasic waveforms Right radial artery: 93 cm/s; triphasic waveforms Right ulnar artery: 30 cm/s; triphasic waveforms Left arm Left subclavian artery: 150 cm/s; triphasic waveforms Left axillary artery: 76 cm/s; triphasic waveforms Left brachial artery: 81 cm/s; triphasic waveforms Left radial artery: 84 cm/s; triphasic waveforms Left ulnar artery: 63 cm/s; triphasic waveforms IMPRESSION: Unremarkable bilateral upper extremity arterial Doppler ultrasound. RPTAT: AA .Atilio Vasquez MD, MD Date Time Electronically viewed and signed by .Atilio Vasquez MD, on 01/14/2017 10:07 .S/
--- NOTE | 2017-01-14 10:30 | RADRPT ---
PROCEDURE: US bilateral upper extremity Venous. CLINICAL INDICATION: End-stage renal disease, vein mapping TECHNIQUE: Multiple sonographic images of the bilateral upper lower extremity deep an superficial venous system was obtained utilizing grayscale, color-flow, compressive sonography and doppler imagi ng with augmentation. Measurements were performed. The images were reviewed on a PACS workstation. COMPARISON: None. FINDINGS: RIGHT Right basilic vein size: Proximal: 5.0 mm Mid aspect: 4.5 mm Distal: 5.1 mm Right basilic vein size in the forearm: Proximal: 2.0 mm Mid aspect: 3.0 mm Distal: 3.5 mm Right cephalic vein size: Proximal: 2.1 mm Mid aspect: 1.5 mm Distal: 1.2 mm Right cephalic vein size in the forearm: Proximal: 1.2 mm Mid aspect: 0.8 mm Distal: 1.9 mm LEFT Left basilic vein size: Proximal: 4.3 mm Mid aspect: 4.2 mm Distal: Occluded Left basilic vein size in the forearm: Proximal: Occluded Mid aspect: Occluded Distal: 1.4 mm Left cephalic vein size: Proximal: 5.2 mm Mid aspect: 5.7 mm Distal: 2.8 mm Left cephalic vein size in the forearm: Proximal: Occluded Mid aspect: 1.1 mm Distal: Not seen IMPRESSION: Occluded portions of the left basilic and left cephalic veins. Vein mapping as described. RPTAT: AA .Atilio Vasquez MD, MD Date Time Electronically viewed and signed by .Atilio Vasquez MD, MD on 01/14/2017 10:29 .S/
--- NOTE | 2017-01-14 12:56 | CONS ---
Date/Time of Note Date/Time of Note DATE: 01/14/17 TIME: 12:55 Assessment/Plan Assessment/Plan Additional Assessment/Plan Acute kidney injury with intermittent hemodialysis Preserved ejection fraction Status post fall Sepsis with bacteremia Paroxysmal atrial fibrillation, currently sinus rhythm History of hypertension Recent UTI Alcohol abuse -Blood pressure trend overall remains overall stable. Amiodarone stopped secondary to patient placed on antipsychotics remains in regular rhythm. Continue beta-anjelica. Electrolytes and fluid management as per our nephrology colleagues. Consultation Date/Type/Reason Admit Date/Time December 10, 2016 at 16:57 Type of Consultation: cv Referring Provider: NETTA SALOMON MD 24 HR Interval Summary Free Text/Dictation Patient seen and examined Exam/Review of Systems Vital Signs Vitals Vital Signs Date Time Temp Pulse Resp B/P Pulse Ox O2 Delivery O2 Flow Rate FiO2 01/14/17 08:00 98.6 71 18 161/72 20 01/12/17 07:45 Room Air Intake and Output 01/13/17 01/13/17 01/14/17 15:00 23:00 07:00 Intake Total 400 ml 608 ml Output Total 1400 ml 200 ml Balance -1000 ml 408 ml Exam Sleeping but arousable, no apparent distress Head: normocephalic Respiratory: other (Coarse breath sounds bilaterally, no wheezing) Cardiovascular: other (S1-S2 heard), regular rate and rhythm Gastrointestinal: bowel sounds, non-tender, soft Extremities: edema (Trace) Results Result Diagram: 01/13/17 0530 01/14/17 0430 Results 24 hrs Laboratory Tests Test 01/14/17 04:30 01/14/17 05:55 Sodium Level 148 H Potassium Level 3.5 Chloride Level 109 Carbon Dioxide Level 31 # Anion Gap 12 Blood Urea Nitrogen 48 #H Creatinine 5.35 #H Glucose Level 103 Calcium Level 8.5 Lab Scanned Report BLOOD TRANSFUSION Medications Medications Current Medications Ondansetron HCl (Zofran Inj) 4 mg Q6H PRN IV NAUSEA AND/OR VOMITING Last administered on 12/24/16 12:08; Admin Dose 4 MG; Start 12/10/16 at 18:00 Magnesium Hydroxide (Milk Of Mag) 30 ml DAILY PRN PO CONSTIPATION Last administered on 12/29/16 08:56; Admin Dose 30 ML; Start 12/10/16 at 18:00 Bisacodyl (Dulcolax) 5 mg DAILY PRN PO CONSTIPATION; Start 12/10/16 at 18:00 Famotidine (Pepcid) 20 mg DAILY PO Last administered on 01/14/17 08:06; Admin Dose 20 MG; Start 12/11/16 at 09:00 Atorvastatin Calcium (Lipitor) 10 mg DAILY@21 PO Last administered on 01/13/17 21:31; Admin Dose 10 MG; Start 12/10/16 at 21:00 Heparin Sodium (Porcine) (Heparin (5000 Units/0.5 ml)) 5,000 unit BID SC Last administered on 01/14/17 08:07; Admin Dose 5,000 UNIT; Start 12/11/16 at 21:00 Metoprolol Tartrate (Lopressor) 50 mg BID PO Last administered on 01/14/17 08: 06; Admin Dose 50 MG; Start 12/17/16 at 21:00 Polyethylene Glycol (Miralax) 17 gm BID PO Last administered on 01/14/17 08:06 ; Admin Dose 17 GM; Start 12/21/16 at 21:00 Miscellaneous Information 1 ea NOTE XX ; Start 12/21/16 at 17:30 Glucose (Glutose) 15 gm Q15M PRN PO DECREASED GLUCOSE; Start 12/21/16 at 17:30 Glucose (Glutose) 22.5 gm Q15M PRN PO DECREASED GLUCOSE; Start 12/21/16 at 17: 30 Dextrose (D50w Syringe) 25 ml Q15M PRN IV DECREASED GLUCOSE; Start 12/21/16 at 17:30 Dextrose (D50w Syringe) 50 ml Q15M PRN IV DECREASED GLUCOSE; Start 12/21/16 at 17:30 Glucagon (Glucagen) 1 mg Q15M PRN IM DECREASED GLUCOSE; Start 12/21/16 at 17:30 Glucose (Glutose) 15 gm Q15M PRN BUCCAL DECREASED GLUCOSE; Start 12/21/16 at 17 :30 Amlodipine Besylate (Norvasc) 5 mg BID PO Last administered on 01/14/17 08:06; Admin Dose 5 MG; Start 12/27/16 at 21:00 Acetaminophen/ Hydrocodone Bitart 1 tab 1 tab Q4H PRN PO pain Last administered on 01/11/17 21:42; Admin Dose 1 TAB; Start 01/08/17 at 14:30 Sodium Bicarbonate/ Dextrose (Na Bicarb/D5W) 1,050 ml @ 70 mls/hr Q15H IV Last administered on 01/14/17 03:41; Admin Dose 70 MLS/HR; Start 01/10/17 at 10: 00 Cyanocobalamin (Vitamin B12 Inj) 1,000 mcg DAILY IM Last administered on 08:07; Admin Dose 1,000 MCG; Start 01/10/17 at 14:00 IV Flush (NS 10 ml) 10 ml PRN PRN IV IV PROTOCOL; Start 01/11/17 at 16:00 Quetiapine Fumarate (Seroquel) 25 mg BID PO Last administered on 01/14/17 08:06 ; Admin Dose 25 MG; Start 01/12/17 at 21:00 Haloperidol (Haldol) 5 mg Q4 PRN IM Anxiety Last administered on 01/14/17 09: 12; Admin Dose 5 MG; Start 01/12/17 at 20:00 Zeyad Kelly DO Jan 14, 2017 12:56
[2017-01-14] MEDS ORDERED: ALTEPLASE (CATHFLO) 2 MG INJ CATHETER ONE ×2 (15:00)
--- NOTE | 2017-01-14 16:07 | PN ---
Date/Time of Note Date/Time of Note DATE: 01/14/17 TIME: 16:03 Assessment/Plan VTE Prophylaxis VTE Prophylaxis Intervention: heparin Lines/Catheters IV Catheter Type (from Nrs): cedric catheter Urinary Cath still in place: No Assessment/Plan Assessment/Plan 1. CKD, stage 5, Femoral HD catheter, follow up with nephrology for HD 2. Confusion, more likely dementia related, part may due to uremia 3. Urinary retention, in and out catheter 4. S/p Proteus mirabilis urinary tract infection with bacteremia, sepsis, treated, off of antibiotics 5. S/p HCAP, poss aspiration. treated, off of antibiotics 6. Hypertension.on norvac/metoprolol 7. Paroxysmal Atrial fibrillation, on metoprolol 8. History of alcohol abuse. 9. Chronic Gout. 10. Stag horn calculus likely from uric acid 11. Chronic compression fractures with spinal stenosis 2/2 DJD of spine 12. Dysphagia. Continue aspiration precautions. Diet as per speech therapy. 13. Anemia, follow up with H/H 14. DVT prophylaxis: heparin Subjective 24 Hr Interval Summary Free Text/Dictation lethargic Exam/Review of Systems Vital Signs Vitals Vital Signs Date Time Temp Pulse Resp B/P Pulse Ox O2 Delivery O2 Flow Rate FiO2 01/14/17 14:45 79 01/14/17 12:45 19 01/14/17 08:00 98.6 161/72 20 01/12/17 07:45 Room Air Intake and Output 01/13/17 01/13/17 01/14/17 15:00 23:00 07:00 Intake Total 400 ml 608 ml Output Total 1400 ml 200 ml Balance -1000 ml 408 ml Exam Constitutional: non-verbal, well developed Head: atraumatic, normocephalic Eyes: EOMI, PERRL, nl conjunctiva, nl lids ENMT: mucosa pink and moist, nl external ears & nose, nl lips & teeth, nl nasal mucosa & septum Neck: non-tender, supple Respiratory: clear to auscultation, normal air movement, No congested cough, No crackles/rales, No diminished breath sounds, No intercostal retraction, No labored breathing, No other, No respirations, No tactile fremitus, No wheezing Cardiovascular: nl pulses, regular rate and rhythm, No S3, No S4, No bruits, No diastolic murmur, No edema, No gallop, No irregular rhythm, No jugular venous distention (JVD), No murmurs/extra sounds, No other, No rub, No systolic murmur Gastrointestinal: nl liver, spleen, non-tender, soft, No ascites, No bowel sounds, No distended, No firm, No hepatomegaly, No mass , No other, No rebound or guarding, No splenomegaly, No surgical scars, No tender Musculoskeletal: nl extremities to inspection Extremities: normal pulses, No calf tenderness, No clubbing, No cyanosis, No edema, No other, No palpable cord, No pitting pedal edema, No tenderness Neurological: SOCIAL SCIENTIST II-XII intact, confused Skin: nl turgor Results Result Diagram: 01/13/17 0530 01/14/17 0430 Results 24 hrs Laboratory Tests Test 01/14/17 04:30 01/14/17 05:55 Sodium Level 148 H Potassium Level 3.5 Chloride Level 109 Carbon Dioxide Level 31 # Anion Gap 12 Blood Urea Nitrogen 48 #H Creatinine 5.35 #H Glucose Level 103 Calcium Level 8.5 Lab Scanned Report BLOOD TRANSFUSION Medications Medications Current Medications Ondansetron HCl (Zofran Inj) 4 mg Q6H PRN IV NAUSEA AND/OR VOMITING Last administered on 12/24/16 12:08; Admin Dose 4 MG; Start 12/10/16 at 18:00 Magnesium Hydroxide (Milk Of Mag) 30 ml DAILY PRN PO CONSTIPATION Last administered on 12/29/16 08:56; Admin Dose 30 ML; Start 12/10/16 at 18:00 Bisacodyl (Dulcolax) 5 mg DAILY PRN PO CONSTIPATION; Start 12/10/16 at 18:00 Famotidine (Pepcid) 20 mg DAILY PO Last administered on 01/14/17 08:06; Admin Dose 20 MG; Start 12/11/16 at 09:00 Atorvastatin Calcium (Lipitor) 10 mg DAILY@21 PO Last administered on 01/13/17 21:31; Admin Dose 10 MG; Start 12/10/16 at 21:00 Heparin Sodium (Porcine) (Heparin (5000 Units/0.5 ml)) 5,000 unit BID SC Last administered on 01/14/17 08:07; Admin Dose 5,000 UNIT; Start 12/11/16 at 21:00 Metoprolol Tartrate (Lopressor) 50 mg BID PO Last administered on 01/14/17 08: 06; Admin Dose 50 MG; Start 12/17/16 at 21:00 Polyethylene Glycol (Miralax) 17 gm BID PO Last administered on 01/14/17 08:06 ; Admin Dose 17 GM; Start 12/21/16 at 21:00 Miscellaneous Information 1 ea NOTE XX ; Start 12/21/16 at 17:30 Glucose (Glutose) 15 gm Q15M PRN PO DECREASED GLUCOSE; Start 12/21/16 at 17:30 Glucose (Glutose) 22.5 gm Q15M PRN PO DECREASED GLUCOSE; Start 12/21/16 at 17: 30 Dextrose (D50w Syringe) 25 ml Q15M PRN IV DECREASED GLUCOSE; Start 12/21/16 at 17:30 Dextrose (D50w Syringe) 50 ml Q15M PRN IV DECREASED GLUCOSE; Start 12/21/16 at 17:30 Glucagon (Glucagen) 1 mg Q15M PRN IM DECREASED GLUCOSE; Start 12/21/16 at 17:30 Glucose (Glutose) 15 gm Q15M PRN BUCCAL DECREASED GLUCOSE; Start 12/21/16 at 17 :30 Amlodipine Besylate (Norvasc) 5 mg BID PO Last administered on 01/14/17 08:06; Admin Dose 5 MG; Start 12/27/16 at 21:00 Acetaminophen/ Hydrocodone Bitart 1 tab 1 tab Q4H PRN PO pain Last administered on 01/11/17 21:42; Admin Dose 1 TAB; Start 01/08/17 at 14:30 Sodium Bicarbonate/ Dextrose (Na Bicarb/D5W) 1,050 ml @ 70 mls/hr Q15H IV Last administered on 01/14/17 03:41; Admin Dose 70 MLS/HR; Start 01/10/17 at 10: 00 Cyanocobalamin (Vitamin B12 Inj) 1,000 mcg DAILY IM Last administered on 08:07; Admin Dose 1,000 MCG; Start 01/10/17 at 14:00 IV Flush (NS 10 ml) 10 ml PRN PRN IV IV PROTOCOL; Start 01/11/17 at 16:00 Quetiapine Fumarate (Seroquel) 25 mg BID PO Last administered on 01/14/17 08:06 ; Admin Dose 25 MG; Start 01/12/17 at 21:00 Haloperidol (Haldol) 5 mg Q4 PRN IM Anxiety Last administered on 01/14/17 09: 12; Admin Dose 5 MG; Start 01/12/17 at 20:00 MAURICE SAUCEDA MD Jan 14, 2017 16:07
--- NOTE | 2017-01-14 16:17 | PN ---
Date/Time of Note Date/Time of Note DATE: 01/14/17 TIME: 16:14 Assessment/Plan Lines/Catheters IV Catheter Type (from Nrs): cedric catheter Mccormack in Place (from Nrs): No Assessment/Plan Chief Complaint/Hosp Course -Chronic kidney disease, impending end-stage renal: It seems the patient's chronic kidney disease has gotten worse during his admission to the hospital and requiring urgent dialysis, as he has pulled out his chest wall catheter. S/ P Urgent Norris catheter placement i -Will plan for eventual PermCath catheter and fistula creation if needed. -Upon bilateral upper extremity vein mapping patient has multiple options for possible fistula creation. -Optimize vascular status (BP meds, diet, nutrition, exercise, sugar control, antiplatelets). -Discussed programs for alcohol cessation and smoking cessation. -Discussed findings, plan and management with the primary service and his sister -Thank you for allowing us to partake in the care of your patient. Please call with any questions. Problems: Subjective 24 Hr Interval Summary no new vascular issues overnight, tolerated HD Exam/Review of Systems Vital Signs Vitals Vital Signs Date Time Temp Pulse Resp B/P Pulse Ox O2 Delivery O2 Flow Rate FiO2 01/14/17 14:45 79 01/14/17 12:45 19 01/14/17 08:00 98.6 161/72 20 01/12/17 07:45 Room Air Intake and Output 01/13/17 01/13/17 01/14/17 15:00 23:00 07:00 Intake Total 400 ml 608 ml Output Total 1400 ml 200 ml Balance -1000 ml 408 ml Exam Free Text/Dictation GENERAL: Patient awake upon stimulation, otherwise unable to be oriented to time and place. PULMONARY: Bilateral crackles at the bases. CARDIOVASCULAR: S1, S2 present. Irregularly irregular. ABDOMEN: Soft, nontender, nondistended. Bowel sounds positive. EXTREMITIES: Right lower extremity palpable femoral pulse, nonpalpable pedal pulse. Motor, sensory seems to be intact. Capillary refill 3 seconds. Right groin cath intact and functional Left lower extremity palpable femoral pulse, nonpalpable pedal pulse. Motor and sensory seems to be intact. Capillary refill 3 seconds. Results Result Diagram: 01/13/17 0530 01/14/17 0430 JANIS ROBERTO MD Jan 14, 2017 16:17
[2017-01-14] MEDS: ATORVASTATIN 10 MG TAB PO SCH (21:49)
[2017-01-15] VITALS (19 sets, daily range): BP systolic 98–140; BP diastolic 54–73; PULSE 70–101; RESP 17–19
[2017-01-15] MEDS: HALOPERIDOL 5 MG INJ IM PRN ×2 (05:14→13:37)
[2017-01-15 08:25] LABS: ADD SCAN DIFF NO
[2017-01-15 08:35] LABS: BASOPHIL # 0.1 10^3/ul (0.0-0.1); BASOPHILS % 0.4 % (0.0-2.0); EOSINOPHILS # 0.2 10^3/ul (0.0-0.5); EOSINOPHILS % 2.1 % (0.0-7.0); HEMOGLOBIN 8.5 g/dl (14.0-18.0); LYMPHOCYTES % 8.6 % (15.0-51.0); MEAN CORPUSCULAR HEMOGLOBIN 29.9 pg (29.0-33.0); MEAN CORPUSCULAR HGB CONC 32.7 g/dl (32.0-37.0); MEAN CORPUSCULAR VOLUME 91.5 fl (82.0-101.0); MEAN PLATELET VOLUME 11.4 fl (7.4-10.4); MONOCYTE # 0.7 10^3/ul (0.3-0.9); MONOCYTES % 6.5 % (0.0-11.0); NEUTROPHIL # 9.1 10^3/ul (1.6-7.5); NEUTROPHILS % 81.9 % (39.0-77.0); PLATELET COUNT 182 10^3/UL (140-415); RED BLOOD COUNT 2.84 10^6/ul (4.70-6.10); RED CELL DISTRIBUTION WIDTH 15.8 % (11.5-14.5); WHITE BLOOD COUNT 11.1 10^3/ul (4.8-10.8)
[2017-01-15] MEDS: POLYETHYLENE GLYCOL 17 GM PACKET PO SCH ×2 (09:00→20:35)
[2017-01-15] MEDS: HEPARIN 5,000 UNIT/0.5 ML VIAL SC SCH ×2 (09:00→20:37)
[2017-01-15] MEDS: FAMOTIDINE 20 MG TAB PO SCH (09:00)
[2017-01-15] MEDS: METOPROLOL 50 MG TAB PO SCH ×2 (09:00→20:35)
[2017-01-15] MEDS: CYANOCOBALAMIN 1000 MCG INJ IM SCH (09:00)
[2017-01-15] MEDS: AMLODIPINE 5 MG TAB PO SCH ×2 (09:00→20:36)
[2017-01-15 09:02] LABS: CALCIUM 8.8 mg/dl (8.4-10.2); CREATININE 5.65 mg/dl (0.61-1.24); POTASSIUM 3.5 mmol/L (3.5-5.1)
--- NOTE | 2017-01-15 10:21 | PN ---
Date/Time of Note Date/Time of Note DATE: 01/15/17 TIME: 10:17 Assessment/Plan VTE Prophylaxis VTE Prophylaxis Intervention: other Lines/Catheters IV Catheter Type (from Nrs): Norris catheter Central line still needed: Yes Urinary Cath still in place: No Assessment/Plan Chief Complaint/Hosp Course Hospital day 36 Problems: (1) Spinal stenosis at L4-L5 level Status: Chronic Comment: His pain had improved after steroids. Please see the CT scan report. I am concerned about following this up. (2) Diastolic dysfunction Status: Chronic Comment: On beta-blockade. Consider sotalol (3) Essential hypertension Status: Chronic Comment: Adequate control. Consider replacing metoprolol with sotalol (4) Paroxysmal atrial fibrillation with rapid ventricular response Status: Chronic Comment: Stable at the present time consider replacing metoprolol with sotalol (5) At risk for falls Status: Chronic Comment: Once we can get him a dialysis catheter then he will need placement. I am concerned about his risk for falls and wondering whether or not he is having some statin induced myalgias. This is a possibility although bit of a long shot. (6) Acute renal failure (ARF) Status: Acute Comment: He is going need long-term dialysis Qualifiers: Acute renal failure type: unspecified Qualified Code: N17.9 - Acute renal failure, unspecified acute renal failure type (7) Alcoholism /alcohol abuse Status: Chronic Comment: He is past the point of expected withdrawal. (8) Hyperlipidemia Status: Chronic Comment: Temporarily hold statin and see how he does Qualifiers: Hyperlipidemia type: pure hypercholesterolemia Qualified Code: E78.00 - Pure hypercholesterolemia (9) History of gout Status: Chronic Comment: Noted. (10) Prostate cancer Status: Chronic Comment: No present evidence of activity. Subjective 24 Hr Interval Summary Free Text/Dictation Patient reports "they do anything they want to to me here". Patient says that he is angry Constitutional: no complaints (Denies fever chills or sweats) Respiratory: no complaints Cardiovascular: no complaints Gastrointestinal: no complaints Musculoskeletal: back pain (Complains of back pain agreeable to get MRI scan) Exam/Review of Systems Vital Signs Vitals Vital Signs Date Time Temp Pulse Resp B/P Pulse Ox O2 Delivery O2 Flow Rate FiO2 01/15/17 07:45 98.2 72 18 120/58 97 01/15/17 04:05 Room Air Intake and Output 01/14/17 01/14/17 01/15/17 15:00 23:00 07:00 Intake Total 300 ml 1202 ml 780 ml Output Total 1300 ml 150 ml Balance -1000 ml 1202 ml 630 ml Exam Older male lying in bed in restraints who is obviously angry Constitutional: alert, oriented Neck: non-tender, supple Respiratory: clear to auscultation, normal air movement Cardiovascular: nl pulses, regular rate and rhythm (Presently regular rhythm) Gastrointestinal: nl liver, spleen, non-tender, soft Results Result Diagram: 01/15/1737 01/15/17 07 Results 24 hrs Laboratory Tests Test 01/15/17 07:37 White Blood Count 11.1 H Red Blood Count 2.84 L Hemoglobin 8.5 L Hematocrit 26.0 L Mean Corpuscular Volume 91.5 Mean Corpuscular Hemoglobin 29.9 Mean Corpuscular Hemoglobin Concent 32.7 Red Cell Distribution Width 15.8 H Platelet Count 182 # Mean Platelet Volume 11.4 H Neutrophils % 81.9 H Lymphocytes % 8.6 L Monocytes % 6.5 Eosinophils % 2.1 Basophils % 0.4 Nucleated Red Blood Cells % 0.0 Neutrophils # 9.1 H Lymphocytes # 1.0 Monocytes # 0.7 Eosinophils # 0.2 Basophils # 0.1 Nucleated Red Blood Cells # 0.0 Sodium Level 143 Potassium Level 3.5 Chloride Level 104 Carbon Dioxide Level 29 Anion Gap 14 Blood Urea Nitrogen 47 H Creatinine 5.65 H Glucose Level 100 Calcium Level 8.8 Medications Medications Current Medications Ondansetron HCl (Zofran Inj) 4 mg Q6H PRN IV NAUSEA AND/OR VOMITING Last administered on 12/24/16 12:08; Admin Dose 4 MG; Start 12/10/16 at 18:00 Magnesium Hydroxide (Milk Of Mag) 30 ml DAILY PRN PO CONSTIPATION Last administered on 12/29/16 08:56; Admin Dose 30 ML; Start 12/10/16 at 18:00 Bisacodyl (Dulcolax) 5 mg DAILY PRN PO CONSTIPATION; Start 12/10/16 at 18:00 Famotidine (Pepcid) 20 mg DAILY PO Last administered on 01/14/17 08:06; Admin Dose 20 MG; Start 12/11/16 at 09:00 Atorvastatin Calcium (Lipitor) 10 mg DAILY@21 PO Last administered on 01/14/17 21:49; Admin Dose 10 MG; Start 12/10/16 at 21:00; Status Future Hold Heparin Sodium (Porcine) (Heparin (5000 Units/0.5 ml)) 5,000 unit BID SC Last administered on 01/14/17 21:53; Admin Dose 5,000 UNIT; Start 12/11/16 at 21:00 Metoprolol Tartrate (Lopressor) 50 mg BID PO Last administered on 01/14/17 21: 49; Admin Dose 50 MG; Start 12/17/16 at 21:00 Polyethylene Glycol (Miralax) 17 gm BID PO Last administered on 01/14/17 21:49 ; Admin Dose 17 GM; Start 12/21/16 at 21:00 Miscellaneous Information 1 ea NOTE XX ; Start 12/21/16 at 17:30 Glucose (Glutose) 15 gm Q15M PRN PO DECREASED GLUCOSE; Start 12/21/16 at 17:30 Glucose (Glutose) 22.5 gm Q15M PRN PO DECREASED GLUCOSE; Start 12/21/16 at 17: 30 Dextrose (D50w Syringe) 25 ml Q15M PRN IV DECREASED GLUCOSE; Start 12/21/16 at 17:30 Dextrose (D50w Syringe) 50 ml Q15M PRN IV DECREASED GLUCOSE; Start 12/21/16 at 17:30 Glucagon (Glucagen) 1 mg Q15M PRN IM DECREASED GLUCOSE; Start 12/21/16 at 17:30 Glucose (Glutose) 15 gm Q15M PRN BUCCAL DECREASED GLUCOSE; Start 12/21/16 at 17 :30 Amlodipine Besylate (Norvasc) 5 mg BID PO Last administered on 01/14/17 21:49; Admin Dose 5 MG; Start 12/27/16 at 21:00 Acetaminophen/ Hydrocodone Bitart 1 tab 1 tab Q4H PRN PO pain Last administered on 01/11/17 21:42; Admin Dose 1 TAB; Start 01/08/17 at 14:30 Sodium Bicarbonate/ Dextrose (Na Bicarb/D5W) 1,050 ml @ 70 mls/hr Q15H IV Last administered on 01/14/17 23:40; Admin Dose 70 MLS/HR; Start 01/10/17 at 10: 00 Cyanocobalamin (Vitamin B12 Inj) 1,000 mcg DAILY IM Last administered on 08:07; Admin Dose 1,000 MCG; Start 01/10/17 at 14:00 IV Flush (NS 10 ml) 10 ml PRN PRN IV IV PROTOCOL; Start 01/11/17 at 16:00 Quetiapine Fumarate (Seroquel) 25 mg BID PO Last administered on 01/14/17 21:48 ; Admin Dose 25 MG; Start 01/12/17 at 21:00 Haloperidol (Haldol) 5 mg Q4 PRN IM Anxiety Last administered on 01/15/17 05: 14; Admin Dose 5 MG; Start 01/12/17 at 20:00 UMANG SEXTON MD Jan 15, 2017 10:21
--- NOTE | 2017-01-15 10:47 | PN ---
Date/Time of Note Date/Time of Note DATE: 01/15/17 TIME: 10:43 Assessment/Plan Lines/Catheters IV Catheter Type (from Nrsg): Onrris catheter Mccormack in Place (from Nrsg): No Assessment/Plan Chief Complaint/Hosp Course -Chronic kidney disease, impending end-stage renal: It seems the patient's chronic kidney disease has gotten worse during his admission to the hospital and requiring urgent dialysis, as he has pulled out his chest wall catheter. S/ P Urgent Norris catheter placement -Will plan for eventual PermCath catheter and fistula creation if needed. Discussed the findings this morning with the sister over the phone -Upon bilateral upper extremity vein mapping patient has multiple options for possible fistula creation. -Optimize vascular status (BP meds, diet, nutrition, exercise, sugar control, antiplatelets). -Discussed programs for alcohol cessation and smoking cessation. -Discussed findings, plan and management with the primary service and his sister -Thank you for allowing us to partake in the care of your patient. Please call with any questions. Problems: Subjective 24 Hr Interval Summary no new vascular events overnight, pt tolerating HD Exam/Review of Systems Vital Signs Vitals Vital Signs Date Time Temp Pulse Resp B/P Pulse Ox O2 Delivery O2 Flow Rate FiO2 01/15/17 07:45 98.2 72 18 120/58 97 01/15/17 04:05 Room Air Intake and Output 01/14/17 01/14/17 01/15/17 15:00 23:00 07:00 Intake Total 300 ml 1202 ml 780 ml Output Total 1300 ml 150 ml Balance -1000 ml 1202 ml 630 ml Exam Free Text/Dictation GENERAL: Patient awakes upon stimulation, otherwise unable to be oriented to time and place. PULMONARY: Bilateral crackles at the bases. CARDIOVASCULAR: S1, S2 present. Irregularly irregular. ABDOMEN: Soft, nontender, nondistended. Bowel sounds positive. EXTREMITIES: Right lower extremity palpable femoral pulse, nonpalpable pedal pulse. Motor, sensory seems to be intact. Capillary refill 3 seconds. Right groin cath intact and functional Left lower extremity palpable femoral pulse, nonpalpable pedal pulse. Motor and sensory seems to be intact. Capillary refill 3 seconds. Results Result Diagram: 01/15/17 0737 01/15/17 0737 JANIS ROBERTO MD Jan 15, 2017 10:47
--- NOTE | 2017-01-15 15:34 | RADRPT ---
AMENDMENT: 01/16/2017 12:13:50 PM Jeane Roy M.D. Addendum: Comparison is now made with the prior limited thoracic spine MRI dated 12/18/2016. When compared wi th prior MRI the signal intensity changes have progressed at the T10-11 and T11-12 level and finding s are compatible with an osteomyelitis diskitis predominantly at the T11-12 level and early changes at the T10-11 level. The previously noted left posteriorly directed facet synovial cyst is again not ed at this level . A call report was made to Dr. Arrieta at 01/16/2017 12:12:29 PM following the completion of the examinati on by the undersigned. RPTAT: [facility] PROCEDURE: MRI thoracic spine CLINICAL INDICATION: Abnormal thoracic spine on CT abdomen pelvis TECHNIQUE: An MRI of the thoracic spine was performed on a high resolution high definition, 3.0 [place] MRI scanner utilizing the following sequences: Sagittal T1 weighted, sagittal and axial T2 weig hted, axial T2* GRE, and sagittal T2 weighted with fat saturation. COMPARISON: CT abdomen and pelvis dated 12/30/2016 FINDINGS: There is moderate thoracic kyphosis present. No evidence for acute fractures are present or traumati c subluxations. A chronic compression fracture deformity and status post vertebral plasty changes a re noted in the L1 vertebral body with approximately 50% vertebral body height loss. The vertebral bodies are remarkable for Modic type 2 degenerative endplate changes at the T3-4 level. T1 hypointen sity corresponding to T2 and T2 fat saturation hyperintensity is noted in the T11 and T12 vertebral bodies. The erosive changes are noted of the end plates at T11 as previously described on CT. In a ddition, the signal intensities of the discs demonstrate edema within the disk at the T3-4, and T6-7 levels through the imaged L1-2 level inferiorly. Superimposed on this baseline of disk hydration i n this patient, marked interval increase in disk signal is noted at the T 10/11 and the T11-12 level s. These findings are concerning for osteomyelitis and diskitis at the T10-11 and T11-12 levels. No definite evidence for epidural abscess is noted on this limited noncontrast MRI. The posterior kletsel dehe wintun ents are intact and well aligned. The paravertebral soft tissues demonstrate prevertebral soft tiss ue increased extending anterior to the T9-10 through the T12-L1 levels. Although more sensitive eval uation with contrast would be helpful to further evaluate, this soft tissue is concerning for prever tebral abscess or phlegmon. Large vertebral anterior osteophytes are present at the T10 through T12 levels. The remainder of the paravertebral soft tissues imaged also demonstrates a moderate right pleural effusion present. The conus medullaris terminates normally at the L1 level. The specific a xial levels are as follows: T1-2: The intervertebral discs is normal. The central canal, subarticular recess and neural forame n are patent. T2-3: A 2 mm central disk protrusion is present. The central canal, subarticular recess and neural foramen are patent. T3-4: Degenerative endplate and disk changes are again noted at this level with edema within the di scs. A mild 2 mm broad-based bulge is present. The central canal, subarticular recess and neural f oramen are patent. T4-5: The intervertebral discs is desiccated. The central canal, subarticular recess and neural fo ramen are patent. T5-6: Disk desiccation is present. Minimal annular bulge and tear is present. The central canal, subarticular recess and neural foramen are patent. T6-7: The disk is well hydrated. A minimal bulge is present. The central canal, subarticular rece ss and neural foramen are patent. T7-8: Hydrated disk is present. The central canal, subarticular recess and neural foramen are newman nt. T8-9: A hydrated discs is present. The central canal, subarticular recess and neural foramen are p atent. Mild anterior right vertebral osteophyte is present. T9-10: An edematous hydrated discs is present. The central canal, subarticular recess and neural f oramen are patent. Soft tissue attenuation and hyperintensity is noted in the anterior paravertebral region beginning at this level. This is compatible with paravertebral phlegmon or abscess on this limited noncontrast MR. T10-11: A hydrated and edematous disk is noted at this level in association with endplate irregula rity. T1 hypointensity and T2 hyperintensity is noted in the inferior T10 vertebral body. This in co mpatible with osteomyelitis and diskitis at this level. Paravertebral T2 hyperintensity is again no gaurav compatible with phlegmon or abscess. The central canal, subarticular recess and neural foramen are patent. T11-12: Edematous and hydrated disk is noted at this level with mild increased disk space height los s in association with the erosive endplate changes at T11-12. T1 hypointensity corresponding to T2 hyperintensity is noted almost completely involving the T11 and T12 vertebral bodies. This compatib le with osteomyelitis and diskitis at this level . An associated moderate 4 mm broad-based bulge is present. AP canal dimension is 9.7 mm. This compatible with a mild central canal stenosis, bilater al subarticular recess stenosis and severe bilateral neural foraminal stenosis. Mild bilateral face t arthropathy and ligamentum flavum hypertrophy contribute to stenosis at this level. No definite e vidence for an epidural abscess is present on this limited noncontrast MRI. T12-L1: A hydrated disk is again noted at this level with a mild broad-based bulge. The central ca nal, subarticular recess and neural foramen are patent. L1-2: This level is incompletely evaluated. However, approximately 50% vertebral body height loss of the L1 vertebral body compatible with a chronic compression fracture deformity is noted. Vertebr al plasty changes are again noted. IMPRESSION: 1. Osteomyelitis and diskitis at the T11-12 level and early at the T10-11 level. 2. Associated paravertebral and prevertebral phlegmon or abscess extending from the T9-10 through t o the T12-L1 levels. 3. No definite evidence for epidural abscess as on this limited noncontrast MRI. 4. Chronic L1 compression fracture deformity status post vertebral plasty changes as noted above. 5. 2 mm central disk protrusion at T2-3 6. Multilevel broad-based bulges at the T3 fourth, T5-6, T6-7, T11-12, and T12-L1 with mild central canal stenosis at T11-12. A call report was made to Piotr Gambino at 01/15/2017 3:29:39 PM following the completion of the examination by the undersigned. RPTAT: [facility] .Jeane Roy MD, MD Date Time Electronically viewed and signed by .Jeane Roy MD, on 01/16/2017 12:14 .C/
--- NOTE | 2017-01-15 18:02 | CONS ---
Date/Time of Note Date/Time of Note DATE: 01/15/17 TIME: 17:56 Assessment/Plan Assessment/Plan Additional Assessment/Plan DO NOT RESUSCITATE 1. Acute kidney injury on CKD progressing worsening- pt had a HD on 12/29 and - then HD catheter has been discontinued - makign good urine, but BUn/Cr slowly rising, 2. Hyponatremia - improved 3. Status post fall, which was a mechanical fall, but likely due to the hyponatremia. CT brain is negative. 4. Possible history of chronic kidney disease secondary to hypertensive nephrosclerosis. 5. History of hypertension. 6. History of gout. 7. History of hyperlipidemia. 8. Atrial fibrillation, rate controlled. 9. History of alcohol abuse. 10. Thrombocytopenia secondary to alcohol abuse. 11. sepsis due to UTI and bacteremia with Blood cx and urine Cx growing proteus - follow up blood cx negative 12. Moderate pleural effusion s/p Thoracentesis 12/31/2016- 2.21 L Fluid removed PLAN: pt had a HD on 12/29 and 12/30- then HD catheter has been discontinued S/p Right thoracentesis 12/31/16- 2.1 fluid removed Being followed up by Urology for intermitten urinary retention CXR showed no pulmonary congestion, dense right basilar infiltrates, BUN/Cr slowly rising K normal today but BUN/Cr persistently rising high - s/p Code alicea yesterday so radiologist cancelled his HD catheter plan- will request Vascular surgery to do danielle or PermaCath Further recommendations depend upon patient's clinical course. Plan of care dw Dr Miguelina Avalos /staff Will continue to follow up Consultation Date/Type/Reason Admit Date/Time December 10, 2016 at 16:57 Type of Consultation: cv Referring Provider: NETTA SALOMON MD 24 HR Interval Summary Free Text/Dictation HD today. Plan for Permacath/AVF by Dr Carbajal . no agitation at present, follows commands.dw staff Had Thoracic MRI today. Exam/Review of Systems Vital Signs Vitals Vital Signs Date Time Temp Pulse Resp B/P Pulse Ox O2 Delivery O2 Flow Rate FiO2 01/15/17 10:45 78 16 01/15/17 07:45 98.2 120/58 97 01/15/17 04:05 Room Air Intake and Output 01/14/17 01/14/17 01/15/17 15:00 23:00 07:00 Intake Total 300 ml 1202 ml 780 ml Output Total 1300 ml 150 ml Balance -1000 ml 1202 ml 630 ml Exam Constitutional: alert, well developed Respiratory: clear to auscultation, normal air movement Cardiovascular: nl pulses, regular rate and rhythm Gastrointestinal: non-tender, soft Musculoskeletal: nl extremities to inspection Extremities: normal pulses Neurological: confused, nl speech, other (alert, but sleepy as she got Haldol.) Skin: other Results Result Diagram: 01/15/17 0737 01/15/17 0737 Results 24 hrs Laboratory Tests Test 01/15/17 07:37 White Blood Count 11.1 H Red Blood Count 2.84 L Hemoglobin 8.5 L Hematocrit 26.0 L Mean Corpuscular Volume 91.5 Mean Corpuscular Hemoglobin 29.9 Mean Corpuscular Hemoglobin Concent 32.7 Red Cell Distribution Width 15.8 H Platelet Count 182 # Mean Platelet Volume 11.4 H Neutrophils % 81.9 H Lymphocytes % 8.6 L Monocytes % 6.5 Eosinophils % 2.1 Basophils % 0.4 Nucleated Red Blood Cells % 0.0 Neutrophils # 9.1 H Lymphocytes # 1.0 Monocytes # 0.7 Eosinophils # 0.2 Basophils # 0.1 Nucleated Red Blood Cells # 0.0 Sodium Level 143 Potassium Level 3.5 Chloride Level 104 Carbon Dioxide Level 29 Anion Gap 14 Blood Urea Nitrogen 47 H Creatinine 5.65 H Glucose Level 100 Calcium Level 8.8 Medications Medications Current Medications Ondansetron HCl (Zofran Inj) 4 mg Q6H PRN IV NAUSEA AND/OR VOMITING Last administered on 12/24/16 12:08; Admin Dose 4 MG; Start 12/10/16 at 18:00 Magnesium Hydroxide (Milk Of Mag) 30 ml DAILY PRN PO CONSTIPATION Last administered on 12/29/16 08:56; Admin Dose 30 ML; Start 12/10/16 at 18:00 Bisacodyl (Dulcolax) 5 mg DAILY PRN PO CONSTIPATION; Start 12/10/16 at 18:00 Famotidine (Pepcid) 20 mg DAILY PO Last administered on 01/14/17 08:06; Admin Dose 20 MG; Start 12/11/16 at 09:00 Atorvastatin Calcium (Lipitor) 10 mg DAILY@21 PO Last administered on 01/14/17 21:49; Admin Dose 10 MG; Start 12/10/16 at 21:00; Status Future Hold Heparin Sodium (Porcine) (Heparin (5000 Units/0.5 ml)) 5,000 unit BID SC Last administered on 01/14/17 21:53; Admin Dose 5,000 UNIT; Start 12/11/16 at 21:00 Metoprolol Tartrate (Lopressor) 50 mg BID PO Last administered on 01/14/17 21: 49; Admin Dose 50 MG; Start 12/17/16 at 21:00 Polyethylene Glycol (Miralax) 17 gm BID PO Last administered on 01/14/17 21:49 ; Admin Dose 17 GM; Start 12/21/16 at 21:00 Miscellaneous Information 1 ea NOTE XX ; Start 12/21/16 at 17:30 Glucose (Glutose) 15 gm Q15M PRN PO DECREASED GLUCOSE; Start 12/21/16 at 17:30 Glucose (Glutose) 22.5 gm Q15M PRN PO DECREASED GLUCOSE; Start 12/21/16 at 17: 30 Dextrose (D50w Syringe) 25 ml Q15M PRN IV DECREASED GLUCOSE; Start 12/21/16 at 17:30 Dextrose (D50w Syringe) 50 ml Q15M PRN IV DECREASED GLUCOSE; Start 12/21/16 at 17:30 Glucagon (Glucagen) 1 mg Q15M PRN IM DECREASED GLUCOSE; Start 12/21/16 at 17:30 Glucose (Glutose) 15 gm Q15M PRN BUCCAL DECREASED GLUCOSE; Start 12/21/16 at 17 :30 Amlodipine Besylate (Norvasc) 5 mg BID PO Last administered on 01/14/17 21:49; Admin Dose 5 MG; Start 12/27/16 at 21:00 Acetaminophen/ Hydrocodone Bitart 1 tab 1 tab Q4H PRN PO pain Last administered on 01/11/17 21:42; Admin Dose 1 TAB; Start 01/08/17 at 14:30 Sodium Bicarbonate/ Dextrose (Na Bicarb/D5W) 1,050 ml @ 70 mls/hr Q15H IV Last administered on 01/14/17 23:40; Admin Dose 70 MLS/HR; Start 01/10/17 at 10: 00 Cyanocobalamin (Vitamin B12 Inj) 1,000 mcg DAILY IM Last administered on 08:07; Admin Dose 1,000 MCG; Start 01/10/17 at 14:00 IV Flush (NS 10 ml) 10 ml PRN PRN IV IV PROTOCOL; Start 01/11/17 at 16:00 Haloperidol (Haldol) 5 mg Q4 PRN IM Anxiety Last administered on 01/15/17 13: 37; Admin Dose 5 MG; Start 01/12/17 at 20:00 Quetiapine Fumarate (Seroquel) 50 mg BID PO ; Start 01/15/17 at 21:00 МАРИНА DOSHI Jan 15, 2017 18:02
[2017-01-15] MEDS: SODIUM BICARBONATE (IV ADD) 50 MEQ in DEXTROSE 5% 1,000 ML IV SCH (18:39)
[2017-01-15] MEDS ORDERED: VANCOMYCIN IV PER PHARMACY XX SCH (19:00)
--- NOTE | 2017-01-15 19:09 | CONS ---
Date/Time of Note Date/Time of Note DATE: 01/15/17 TIME: 19:01 Assessment/Plan Assessment/Plan Chief Complaint/Hosp Course SUBJECTIVE: No events overnight. The patient is lethargic, lying comfortably in bed. No fevers. Indwelling: R fem danielle 01/13, PICC 01/11 Diagnostic: Repeat MRI revealed osteomyelitis and diskitis at the T11-12 level and early at the T10-11 levels with associated paravertebral and prevertebral phlegmon or abscess extending from the T9-10 through to the T12-L1 levels. PHYSICAL EXAMINATION: GENERAL: This is a chronically ill-appearing, elderly man who is in no distress. HEENT: Head atraumatic, normocephalic. Sclerae anicteric. Buccal mucosa dry. NECK: Supple, trachea midline. CHEST: Rise symmetrical. Breath sounds diminished to bases. HEART: S1, S2. ABDOMEN: Soft. Bowel tones present. EXTREMITIES: Without cyanosis. ASSESSMENT: 1. Status post sepsis with bacteremia, PNA and UTI==> treated. 2. Acute renal failure==> back on hemodialysis. 3. History of ETOH abuse. 4. Severe decompensated state. 5. Back pain with evidence of discitis and OM [id number] levels per repeat MRI== => pt was seen by dr Arrieta on 01/03, s/p steroids. 6. Atrial fibrillation and hypertension. PLAN: Repeat bld cx, start Vanco and Merrem, consider ortho re-evaluation DW Dr Salgado Problems: Consultation Date/Type/Reason Admit Date/Time December 10, 2016 at 16:57 Type of Consultation: ID Referring Provider: NETTA SALOMON MD Exam/Review of Systems Vital Signs Vitals Vital Signs Date Time Temp Pulse Resp B/P Pulse Ox O2 Delivery O2 Flow Rate FiO2 01/15/17 10:45 78 16 01/15/17 07:45 98.2 120/58 97 01/15/17 04:05 Room Air Intake and Output 01/14/17 01/14/17 01/15/17 15:00 23:00 07:00 Intake Total 300 ml 1202 ml 780 ml Output Total 1300 ml 150 ml Balance -1000 ml 1202 ml 630 ml Results Result Diagram: 01/15/17 0737 01/15/17 0737 Results 24 hrs Laboratory Tests Test 01/15/17 07:37 White Blood Count 11.1 H Red Blood Count 2.84 L Hemoglobin 8.5 L Hematocrit 26.0 L Mean Corpuscular Volume 91.5 Mean Corpuscular Hemoglobin 29.9 Mean Corpuscular Hemoglobin Concent 32.7 Red Cell Distribution Width 15.8 H Platelet Count 182 # Mean Platelet Volume 11.4 H Neutrophils % 81.9 H Lymphocytes % 8.6 L Monocytes % 6.5 Eosinophils % 2.1 Basophils % 0.4 Nucleated Red Blood Cells % 0.0 Neutrophils # 9.1 H Lymphocytes # 1.0 Monocytes # 0.7 Eosinophils # 0.2 Basophils # 0.1 Nucleated Red Blood Cells # 0.0 Sodium Level 143 Potassium Level 3.5 Chloride Level 104 Carbon Dioxide Level 29 Anion Gap 14 Blood Urea Nitrogen 47 H Creatinine 5.65 H Glucose Level 100 Calcium Level 8.8 Medications Medications Current Medications Ondansetron HCl (Zofran Inj) 4 mg Q6H PRN IV NAUSEA AND/OR VOMITING Last administered on 12/24/16 12:08; Admin Dose 4 MG; Start 12/10/16 at 18:00 Magnesium Hydroxide (Milk Of Mag) 30 ml DAILY PRN PO CONSTIPATION Last administered on 12/29/16 08:56; Admin Dose 30 ML; Start 12/10/16 at 18:00 Bisacodyl (Dulcolax) 5 mg DAILY PRN PO CONSTIPATION; Start 12/10/16 at 18:00 Famotidine (Pepcid) 20 mg DAILY PO Last administered on 01/14/17 08:06; Admin Dose 20 MG; Start 12/11/16 at 09:00 Atorvastatin Calcium (Lipitor) 10 mg DAILY@21 PO Last administered on 01/14/17 21:49; Admin Dose 10 MG; Start 12/10/16 at 21:00; Status Future Hold Heparin Sodium (Porcine) (Heparin (5000 Units/0.5 ml)) 5,000 unit BID SC Last administered on 01/14/17 21:53; Admin Dose 5,000 UNIT; Start 12/11/16 at 21:00 Metoprolol Tartrate (Lopressor) 50 mg BID PO Last administered on 01/14/17 21: 49; Admin Dose 50 MG; Start 12/17/16 at 21:00 Polyethylene Glycol (Miralax) 17 gm BID PO Last administered on 01/14/17 21:49 ; Admin Dose 17 GM; Start 12/21/16 at 21:00 Miscellaneous Information 1 ea NOTE XX ; Start 12/21/16 at 17:30 Glucose (Glutose) 15 gm Q15M PRN PO DECREASED GLUCOSE; Start 12/21/16 at 17:30 Glucose (Glutose) 22.5 gm Q15M PRN PO DECREASED GLUCOSE; Start 12/21/16 at 17: 30 Dextrose (D50w Syringe) 25 ml Q15M PRN IV DECREASED GLUCOSE; Start 12/21/16 at 17:30 Dextrose (D50w Syringe) 50 ml Q15M PRN IV DECREASED GLUCOSE; Start 12/21/16 at 17:30 Glucagon (Glucagen) 1 mg Q15M PRN IM DECREASED GLUCOSE; Start 12/21/16 at 17:30 Glucose (Glutose) 15 gm Q15M PRN BUCCAL DECREASED GLUCOSE; Start 12/21/16 at 17 :30 Amlodipine Besylate (Norvasc) 5 mg BID PO Last administered on 01/14/17 21:49; Admin Dose 5 MG; Start 12/27/16 at 21:00 Acetaminophen/ Hydrocodone Bitart 1 tab 1 tab Q4H PRN PO pain Last administered on 01/11/17 21:42; Admin Dose 1 TAB; Start 01/08/17 at 14:30 Sodium Bicarbonate/ Dextrose (Na Bicarb/D5W) 1,050 ml @ 70 mls/hr Q15H IV Last administered on 01/15/17 18:39; Admin Dose 70 MLS/HR; Start 01/10/17 at 10: 00 Cyanocobalamin (Vitamin B12 Inj) 1,000 mcg DAILY IM Last administered on 08:07; Admin Dose 1,000 MCG; Start 01/10/17 at 14:00 IV Flush (NS 10 ml) 10 ml PRN PRN IV IV PROTOCOL; Start 01/11/17 at 16:00 Haloperidol (Haldol) 5 mg Q4 PRN IM Anxiety Last administered on 01/15/17 13: 37; Admin Dose 5 MG; Start 01/12/17 at 20:00 Quetiapine Fumarate (Seroquel) 50 mg BID PO ; Start 01/15/17 at 21:00 CHERRIE JAUREGUI NP Jan 15, 2017 19:09
[2017-01-15] MEDS ORDERED: VANCOMYCIN 1.75 GM in NS 500 ML IVPB SCH (20:30)
[2017-01-15] MEDS: QUETIAPINE 25 MG TAB PO SCH (20:36)
[2017-01-16] VITALS: BP 118/59; PULSE 78; RESP 18
[2017-01-16] MEDS: MEROPENEM 500 MG/100 ML (PMX) 100 ML IVPB SCH ×2 (00:36→21:04)
[2017-01-16] MEDS: SODIUM BICARBONATE (IV ADD) 50 MEQ in DEXTROSE 5% 1,000 ML IV SCH (01:00)
[2017-01-16 02:00] VITALS: BP 115/75; PULSE 75
[2017-01-16 04:00] VITALS: BP 117/63; PULSE 71; RESP 19
[2017-01-16 05:19] LABS: ADD SCAN DIFF NO
[2017-01-16 05:22] LABS: BASOPHIL # 0.1 10^3/ul (0.0-0.1); BASOPHILS % 0.5 % (0.0-2.0); EOSINOPHILS # 0.2 10^3/ul (0.0-0.5); HEMATOCRIT 23.5 % (42.0-52.0); HEMOGLOBIN 7.4 g/dl (14.0-18.0); LYMPHOCYTES # 0.9 10^3/ul (0.8-2.9); LYMPHOCYTES % 9.2 % (15.0-51.0); MEAN CORPUSCULAR HEMOGLOBIN 29.7 pg (29.0-33.0); MEAN CORPUSCULAR HGB CONC 31.5 g/dl (32.0-37.0); MEAN CORPUSCULAR VOLUME 94.4 fl (82.0-101.0); MEAN PLATELET VOLUME 11.7 fl (7.4-10.4); MONOCYTE # 0.6 10^3/ul (0.3-0.9); MONOCYTES % 6.5 % (0.0-11.0); NEUTROPHIL # 7.9 10^3/ul (1.6-7.5); NEUTROPHILS % 81.6 % (39.0-77.0); PLATELET COUNT 128 10^3/UL (140-415); RED BLOOD COUNT 2.49 10^6/ul (4.70-6.10); RED CELL DISTRIBUTION WIDTH 15.8 % (11.5-14.5); WHITE BLOOD COUNT 9.7 10^3/ul (4.8-10.8)
[2017-01-16 05:59] LABS: CALCIUM 8.2 mg/dl (8.4-10.2); CREATININE 4.68 mg/dl (0.61-1.24); POTASSIUM 3.4 mmol/L (3.5-5.1)
[2017-01-16 06:00] VITALS: BP 119/58; PULSE 68; RESP 19
[2017-01-16 07:50] VITALS: BP 108/56; RESP 18
[2017-01-16] MEDS: METOPROLOL 50 MG TAB PO SCH ×2 (09:00→21:36)
[2017-01-16] MEDS: AMLODIPINE 5 MG TAB PO SCH ×2 (09:00→21:05)
[2017-01-16] MEDS: QUETIAPINE 25 MG TAB PO SCH ×2 (09:16→21:04)
[2017-01-16] MEDS: CYANOCOBALAMIN 1000 MCG INJ IM SCH (09:19)
[2017-01-16] MEDS: POLYETHYLENE GLYCOL 17 GM PACKET PO SCH ×2 (09:19→21:04)
[2017-01-16] MEDS: FAMOTIDINE 20 MG TAB PO SCH (09:19)
[2017-01-16] MEDS: HEPARIN 5,000 UNIT/0.5 ML VIAL SC SCH ×2 (09:22→21:13)
--- NOTE | 2017-01-16 11:38 | PN ---
Date/Time of Note Date/Time of Note DATE: 01/16/17 TIME: 11:34 Assessment/Plan VTE Prophylaxis VTE Prophylaxis Intervention: other Lines/Catheters IV [facility]ter [facility]from [facility]): Peripheral IV Urinary Cath still in place: No Assessment/Plan Chief Complaint/Hosp Course Hospital day 37 Problems: (1) Abnormal MRI, thoracic spine Status: Acute Comment: The radiologist called me last night after the MRI scan. She had compared to the CT but I am not sure she compared to the earlier MRI scans. Regardless is a somewhat more concerning interpretation. I had called infectious disease; vascular; and orthopedics. Their opinions are coming in. I have also contacted spinal surgery for consultation although I made that telephone call today (2) Leukocytosis, unspecified Status: Acute Comment: Worrisome for infection especially given the elevated sedimentation rate (3) Acute renal failure (ARF) Status: Acute Comment: As per nephrology Qualifiers: Acute renal failure type: unspecified Qualified Code: N17.9 - Acute renal failure, unspecified acute renal failure type (4) Hyperlipidemia Status: Chronic Comment: Stable on treatment Qualifiers: Hyperlipidemia type: pure hypercholesterolemia Qualified Code: E78.00 - Pure hypercholesterolemia (5) Essential hypertension Status: Chronic Comment: On treatment and stable (6) Spinal stenosis at L4-L5 level Status: Chronic Comment: As per our surgical colleagues Subjective 24 Hr Interval Summary Free Text/Dictation Patient reports still with back pain. Constitutional: no complaints Respiratory: no complaints Cardiovascular: no complaints Gastrointestinal: no complaints Exam/Review of Systems Vital Signs Vitals Vital Signs Date Time Temp Pulse Resp B/P Pulse Ox O2 Delivery O2 Flow Rate FiO2 01/16/17 07:50 98.1 68 18 108/56 96 01/16/17 06:00 Room Air Intake and Output 01/15/17 01/15/17 01/16/17 15:00 23:00 07:00 Intake Total 400 ml 830 ml 1575 ml Output Total 1400 ml 900 ml Balance -1000 ml -70 ml 1575 ml Exam Constitutional: alert, oriented Respiratory: clear to auscultation, normal air movement Cardiovascular: nl pulses, regular rate and rhythm Gastrointestinal: nl liver, spleen, non-tender, soft Results Result Diagram: 01/16/17 0405 01/16/17 0405 Results 24 hrs Laboratory Tests Test 01/16/17 04:05 White Blood Count 9.7 Red Blood Count 2.49 L Hemoglobin 7.4 L Hematocrit 23.5 L Mean Corpuscular Volume 94.4 Mean Corpuscular Hemoglobin 29.7 Mean Corpuscular Hemoglobin Concent 31.5 L Red Cell Distribution Width 15.8 H Platelet Count 128 #L Mean Platelet Volume 11.7 H Neutrophils % 81.6 H Lymphocytes % 9.2 L Monocytes % 6.5 Eosinophils % 2.0 Basophils % 0.5 Nucleated Red Blood Cells % 0.0 Neutrophils # 7.9 H Lymphocytes # 0.9 Monocytes # 0.6 Eosinophils # 0.2 Basophils # 0.1 Nucleated Red Blood Cells # 0.0 Erythrocyte Sedimentation Rate 135 H Sodium Level 146 H Potassium Level 3.4 L Chloride Level 107 Carbon Dioxide Level 31 Anion Gap 11 Blood Urea Nitrogen 33 #H Creatinine 4.68 H Glucose Level 92 Calcium Level 8.2 L Medications Medications Current Medications Ondansetron HCl (Zofran Inj) 4 mg Q6H PRN IV NAUSEA AND/OR VOMITING Last administered on 12/24/16 12:08; Admin Dose 4 MG; Start 12/10/16 at 18:00 Magnesium Hydroxide (Milk Of Mag) 30 ml DAILY PRN PO CONSTIPATION Last administered on 12/29/16 08:56; Admin Dose 30 ML; Start 12/10/16 at 18:00 Bisacodyl (Dulcolax) 5 mg DAILY PRN PO CONSTIPATION; Start 12/10/16 at 18:00 Famotidine (Pepcid) 20 mg DAILY PO Last administered on 01/16/17 09:19; Admin Dose 20 MG; Start 12/11/16 at 09:00 Atorvastatin Calcium (Lipitor) 10 mg DAILY@21 PO Last administered on 01/14/17 21:49; Admin Dose 10 MG; Start 12/10/16 at 21:00; Status Future Hold Heparin Sodium (Porcine) (Heparin (5000 Units/0.5 ml)) 5,000 unit BID SC Last administered on 01/16/17 09:22; Admin Dose 5,000 UNIT; Start 12/11/16 at 21:00 Metoprolol Tartrate (Lopressor) 50 mg BID PO Last administered on 01/15/17 20: 35; Admin Dose 50 MG; Start 12/17/16 at 21:00 Polyethylene Glycol (Miralax) 17 gm BID PO Last administered on 01/16/17 09:19 ; Admin Dose 17 GM; Start 12/21/16 at 21:00 Miscellaneous Information 1 ea NOTE XX ; Start 12/21/16 at 17:30 Glucose (Glutose) 15 gm Q15M PRN PO DECREASED GLUCOSE; Start 12/21/16 at 17:30 Glucose (Glutose) 22.5 gm Q15M PRN PO DECREASED GLUCOSE; Start 12/21/16 at 17: 30 Dextrose (D50w Syringe) 25 ml Q15M PRN IV DECREASED GLUCOSE; Start 12/21/16 at 17:30 Dextrose (D50w Syringe) 50 ml Q15M PRN IV DECREASED GLUCOSE; Start 12/21/16 at 17:30 Glucagon (Glucagen) 1 mg Q15M PRN IM DECREASED GLUCOSE; Start 12/21/16 at 17:30 Glucose (Glutose) 15 gm Q15M PRN BUCCAL DECREASED GLUCOSE; Start 12/21/16 at 17 :30 Amlodipine Besylate (Norvasc) 5 mg BID PO Last administered on 01/15/17 20:36 ; Admin Dose 5 MG; Start 12/27/16 at 21:00 Acetaminophen/ Hydrocodone Bitart 1 tab 1 tab Q4H PRN PO pain Last administered on 01/11/17 21:42; Admin Dose 1 TAB; Start 01/08/17 at 14:30 Sodium Bicarbonate/ Dextrose (Na Bicarb/D5W) 1,050 ml @ 70 mls/hr Q15H IV Last administered on 01/15/17 18:39; Admin Dose 70 MLS/HR; Start 01/10/17 at 10: 00 Cyanocobalamin (Vitamin B12 Inj) 1,000 mcg DAILY IM Last administered on 09:19; Admin Dose 1,000 MCG; Start 01/10/17 at 14:00 IV Flush (NS 10 ml) 10 ml PRN PRN IV IV PROTOCOL; Start 01/11/17 at 16:00 Haloperidol (Haldol) 5 mg Q4 PRN IM Anxiety Last administered on 01/15/17 13: 37; Admin Dose 5 MG; Start 01/12/17 at 20:00 Quetiapine Fumarate 50 mg 50 mg BID PO Last administered on 01/16/17 09:16; Admin Dose 50 MG; Start 6/10/17 at 21:00 Meropenem (Merrem 500 Mg/ 100 ml (Pmx)) 100 ml @ 200 mls/hr Q24H IVPB Last administered on 01/16/17t 00:36; Admin Dose 200 MLS/HR; Start 01/15/17 at 21:00 Miscellaneous Information (*Rx Drug Level Order Reminder*) RANDOM VANCOMYCIN LEVEL 6... ONCE ONCE XX ; Start 01/17/17 at 05:00; Stop 01/17/17 at 05:01 UMANG SEXTON MD Jan 16, 2017 11:38
--- NOTE | 2017-01-16 12:02 | CONS ---
Date/Time of Note Date/Time of Note DATE: 01/16/17 TIME: 11:55 Assessment/Plan Assessment/Plan Additional Assessment/Plan DO NOT RESUSCITATE - Anemia Epogen 6,000 units SQ Q MWF - Hypokalemia- replace K, bmp AM 1. Acute kidney injury on CKD progressing worsening- pt had a HD on 12/29 and - then HD catheter has been discontinued - makign good urine, but BUn/Cr slowly rising, 2. Hypernatremia - DC ivf 3. Status post fall, which was a mechanical fall, but likely due to the hyponatremia. CT brain is negative. 4. Possible history of chronic kidney disease secondary to hypertensive nephrosclerosis. 5. History of hypertension. 6. History of gout. 7. History of hyperlipidemia. 8. Atrial fibrillation, rate controlled. 9. History of alcohol abuse. 10. Thrombocytopenia secondary to alcohol abuse. 11. sepsis due to UTI and bacteremia with Blood cx and urine Cx growing proteus - follow up blood cx negative 12. Moderate pleural effusion s/p Thoracentesis 12/31/2016- 2.21 L Fluid removed PLAN: FU MRI thoracic r/o pain- FU pt had a HD on 12/29 and 12/30- then HD catheter has been discontinued S/p Right thoracentesis 12/31/16- 2.1 fluid removed Being followed up by Urology for intermittent urinary retention CXR showed no pulmonary congestion, dense right basilar infiltrates, BUN/Cr slowly rising BUN/Cr persistently rising high - s/p Code alicea 01/14 so radiologist cancelled his HD catheter plan- will request Vascular surgery to do danielle or PermaCath Further recommendations depend upon patient's clinical course. Plan of care Dr Miguelina Avalos /staff Will continue to follow up HD today. Plan for Permacath/AVF by Dr Carbajal . no agitation at present, follows commands.dw staff Had Thoracic MRI today. Consultation Date/Type/Reason Admit Date/Time December 10, 2016 at 16:57 Type of Consultation: nephrology Referring Provider: NETTA SALOMON MD Detailed Summary Respiratory: no complaints Cardiovascular: no complaints Gastrointestinal: no complaints Musculoskeletal: back pain Exam/Review of Systems Vital Signs Vitals Vital Signs Date Time Temp Pulse Resp B/P Pulse Ox O2 Delivery O2 Flow Rate FiO2 01/16/17 07:50 98.1 68 18 108/56 96 01/16/17 06:00 Room Air Intake and Output 01/15/17 01/15/17 01/16/17 15:00 23:00 07:00 Intake Total 400 ml 830 ml 1575 ml Output Total 1400 ml 900 ml Balance -1000 ml -70 ml 1575 ml Exam Constitutional: alert, well developed Respiratory: clear to auscultation, normal air movement Cardiovascular: nl pulses, regular rate and rhythm Gastrointestinal: non-tender, soft Musculoskeletal: nl extremities to inspection Extremities: normal pulses Neurological: nl speech Skin: other Lymph: nontender Results Result Diagram: 01/16/175 01/16/17 040 Results 24 hrs Laboratory Tests Test 01/16/17 04:05 White Blood Count 9.7 Red Blood Count 2.49 L Hemoglobin 7.4 L Hematocrit 23.5 L Mean Corpuscular Volume 94.4 Mean Corpuscular Hemoglobin 29.7 Mean Corpuscular Hemoglobin Concent 31.5 L Red Cell Distribution Width 15.8 H Platelet Count 128 #L Mean Platelet Volume 11.7 H Neutrophils % 81.6 H Lymphocytes % 9.2 L Monocytes % 6.5 Eosinophils % 2.0 Basophils % 0.5 Nucleated Red Blood Cells % 0.0 Neutrophils # 7.9 H Lymphocytes # 0.9 Monocytes # 0.6 Eosinophils # 0.2 Basophils # 0.1 Nucleated Red Blood Cells # 0.0 Erythrocyte Sedimentation Rate 135 H Sodium Level 146 H Potassium Level 3.4 L Chloride Level 107 Carbon Dioxide Level 31 Anion Gap 11 Blood Urea Nitrogen 33 #H Creatinine 4.68 H Glucose Level 92 Calcium Level 8.2 L Medications Medications Current Medications Ondansetron HCl (Zofran Inj) 4 mg Q6H PRN IV NAUSEA AND/OR VOMITING Last administered on 12/24/16 12:08; Admin Dose 4 MG; Start 12/10/16 at 18:00 Magnesium Hydroxide (Milk Of Mag) 30 ml DAILY PRN PO CONSTIPATION Last administered on 12/29/16 08:56; Admin Dose 30 ML; Start 12/10/16 at 18:00 Bisacodyl (Dulcolax) 5 mg DAILY PRN PO CONSTIPATION; Start 12/10/16 at 18:00 Famotidine (Pepcid) 20 mg DAILY PO Last administered on 01/16/17 09:19; Admin Dose 20 MG; Start 12/11/16 at 09:00 Atorvastatin Calcium (Lipitor) 10 mg DAILY@21 PO Last administered on 01/14/17 21:49; Admin Dose 10 MG; Start 12/10/16 at 21:00; Status Future Hold Heparin Sodium (Porcine) (Heparin (5000 Units/0.5 ml)) 5,000 unit BID SC Last administered on 01/16/17 09:22; Admin Dose 5,000 UNIT; Start 12/11/16 at 21:00 Metoprolol Tartrate (Lopressor) 50 mg BID PO Last administered on 01/15/17 20: 35; Admin Dose 50 MG; Start 12/17/16 at 21:00 Polyethylene Glycol (Miralax) 17 gm BID PO Last administered on 01/16/17 09:19 ; Admin Dose 17 GM; Start 12/21/16 at 21:00 Miscellaneous Information 1 ea NOTE XX ; Start 12/21/16 at 17:30 Glucose (Glutose) 15 gm Q15M PRN PO DECREASED GLUCOSE; Start 12/21/16 at 17:30 Glucose (Glutose) 22.5 gm Q15M PRN PO DECREASED GLUCOSE; Start 12/21/16 at 17: 30 Dextrose (D50w Syringe) 25 ml Q15M PRN IV DECREASED GLUCOSE; Start 12/21/16 at 17:30 Dextrose (D50w Syringe) 50 ml Q15M PRN IV DECREASED GLUCOSE; Start 12/21/16 at 17:30 Glucagon (Glucagen) 1 mg Q15M PRN IM DECREASED GLUCOSE; Start 12/21/16 at 17:30 Glucose (Glutose) 15 gm Q15M PRN BUCCAL DECREASED GLUCOSE; Start 12/21/16 at 17 :30 Amlodipine Besylate (Norvasc) 5 mg BID PO Last administered on 01/15/17 20:36 ; Admin Dose 5 MG; Start 12/27/16 at 21:00 Acetaminophen/ Hydrocodone Bitart 1 tab 1 tab Q4H PRN PO pain Last administered on 01/11/17 21:42; Admin Dose 1 TAB; Start 01/08/17 at 14:30 Sodium Bicarbonate/ Dextrose (Na Bicarb/D5W) 1,050 ml @ 70 mls/hr Q15H IV Last administered on 01/15/17 18:39; Admin Dose 70 MLS/HR; Start 01/10/17 at 10: 00 Cyanocobalamin (Vitamin B12 Inj) 1,000 mcg DAILY IM Last administered on 09:19; Admin Dose 1,000 MCG; Start 01/10/17 at 14:00 IV Flush (NS 10 ml) 10 ml PRN PRN IV IV PROTOCOL; Start 01/11/17 at 16:00 Haloperidol (Haldol) 5 mg Q4 PRN IM Anxiety Last administered on 01/15/17 13: 37; Admin Dose 5 MG; Start 01/12/17 at 20:00 Quetiapine Fumarate 50 mg 50 mg BID PO Last administered on 01/16/17 09:16; Admin Dose 50 MG; Start 01/15/17 at 21:00 Meropenem (Merrem 500 Mg/ 100 ml (Pmx)) 100 ml @ 200 mls/hr Q24H IVPB Last administered on 01/16/17 00:36; Admin Dose 200 MLS/HR; Start 01/15/17 at 21:00 Miscellaneous Information (*Rx Drug Level Order Reminder*) RANDOM VANCOMYCIN LEVEL 6... ONCE ONCE XX ; Start 01/17/17 at 05:00; Stop 01/17/17 at 05:01 МАРИНА DOSHI Jan 16, 2017 12:02
[2017-01-16] MEDS ORDERED: POTASSIUM CHLORIDE 20 MEQ POWDER FOR ORAL SOLN PO ONE (12:30)
--- NOTE | 2017-01-16 18:48 | CONS ---
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 I do not think it is clear whether this infection can be considered a failure of therapy as his antibiotic treatment was previously discontinued before being restarted yesterday. In any event, there is no evidence of cord/ canal compression or epidural extension and as such there is no neurosurgical indication for intervention. Intervention (ie debridement/ corpectomy) would only be considered in the setting of 1) confirmed failure to respond to antibiotic treatment/ refractory infection, or 2) if there was neurologic deficit due to compression of the neural elements. Neither indication applies at present. If a specimen is needed to guide therapy, a percutaneous biopsy is recommended. Finally, although not officially reported on MRI, this study shows the patient does have a right sided pleural effusion. This was communicated to Dr. Miramontes at 17:58. Thank you for the opportunity to participate in the care of this patient. Consultation Date/Type/Reason Admit Date/Time December 10, 2016 at 16:57 Date of Consultation: Jan 16, 2017 Type of Consultation: neurological surgery Reason for Consultation thoracic osteomyelitis Hx of Present Illness 71 year old male admitted since 12/10 for generalized weakness, renal failure, pneumonia. Had MRI of the thoracic spine 12/18 that showed degenerative changes at T11-12 but no evidence at the time of phlegmon or abscess. He was seen and followed by ID, and antibiotics were at some point discontinued. Repeat MRI shows progression of diskitis/ osteomyelitis at T11-12, with paravertebral and prevertebral phlegmon now present in addition to edema & erosion of the vertebral bodies. There is however no epidural extension. The patient has mild canal stenosis at T11-12 due to a disc-osteophyte but this does not impinge on the cord and is stable from 12/18. The patient denies any neurological complaints. He is continent of B/B. Constitutional: no complaints Eyes: no complaints ENT: no complaints Respiratory: no complaints Cardiovascular: no complaints Gastrointestinal: no complaints Genitourinary: no complaints Musculoskeletal: back pain Skin: no complaints Neurologic: no complaints Endocrine: no complaints Lymphatic: no complaints Psychological: no complaints Immunologic: no complaints Past Medical History Medical History: hypertension Past Surgical History Past Surgical Hx: other (Hip surgery) Social History Smoking Status: Former smoker Exam/Review of Systems Vital Signs Vitals Vital Signs Date Time Temp Pulse Resp B/P Pulse Ox O2 Delivery O2 Flow Rate FiO2 01/16/17 07:50 98.1 68 18 108/56 96 01/16/17 06:00 Room Air Intake and Output 01/15/17 01/15/17 01/16/17 15:00 23:00 07:00 Intake Total 400 ml 830 ml 1575 ml Output Total 1400 ml 900 ml Balance -1000 ml -70 ml 1575 ml Exam The patient is afebrile. He is not cachectic and is in no acute distress. His limbs are well developed without deformity, rigidity, fasciculation or abnormal tone. Neurologic examination is without focal deficit; his strength to objective testing is 5/5 throughout and the patient denies any sensory deficit. However, he is at times very poorly cooperative with examination. He initially miss- stated his location as 'home', and vigorously denies having been in the hospital since December. His affect is also volatile, with manifestations of anger " I should mireya the hospital for letting my spine get infected", denial "I have had the same pain for twenty years", and inappropriate behavior "do you have any beer?". Results MRI thoracic spine: "erosive changes are noted of the end plates at T11 as previously described on CT. In addition, the signal intensities of the discs demonstrate edema within the disk at the T3-4, and T6-7 levels through the imaged L1-2 level inferiorly... marked interval increase in disk signal is noted at the T 10/11 and the T11-12 levels. These findings are concerning for osteomyelitis and diskitis at the T10-11 and T11-12 levels. No definite evidence for epidural abscess is noted" Result Diagram: 01/16/1740401/16/17404 Results 24 hrs Laboratory Tests Test 01/16/17 04:05 White Blood Count 9.7 Red Blood Count 2.49 L Hemoglobin 7.4 L Hematocrit 23.5 L Mean Corpuscular Volume 94.4 Mean Corpuscular Hemoglobin 29.7 Mean Corpuscular Hemoglobin Concent 31.5 L Red Cell Distribution Width 15.8 H Platelet Count 128 #L Mean Platelet Volume 11.7 H Neutrophils % 81.6 H Lymphocytes % 9.2 L Monocytes % 6.5 Eosinophils % 2.0 Basophils % 0.5 Nucleated Red Blood Cells % 0.0 Neutrophils # 7.9 H Lymphocytes # 0.9 Monocytes # 0.6 Eosinophils # 0.2 Basophils # 0.1 Nucleated Red Blood Cells # 0.0 Erythrocyte Sedimentation Rate 135 H Sodium Level 146 H Potassium Level 3.4 L Chloride Level 107 Carbon Dioxide Level 31 Anion Gap 11 Blood Urea Nitrogen 33 #H Creatinine 4.68 H Glucose Level 92 Calcium Level 8.2 L Medications Medications Current Medications Ondansetron HCl (Zofran Inj) 4 mg Q6H PRN IV NAUSEA AND/OR VOMITING Last administered on 12/24/16 12:08; Admin Dose 4 MG; Start 12/10/16 at 18:00 Magnesium Hydroxide (Milk Of Mag) 30 ml DAILY PRN PO CONSTIPATION Last administered on 12/29/16 08:56; Admin Dose 30 ML; Start 12/10/16 at 18:00 Bisacodyl (Dulcolax) 5 mg DAILY PRN PO CONSTIPATION; Start 12/10/16 at 18:00 Famotidine (Pepcid) 20 mg DAILY PO Last administered on 01/16/17 09:19; Admin Dose 20 MG; Start 12/11/16 at 09:00 Atorvastatin Calcium (Lipitor) 10 mg DAILY@21 PO Last administered on 01/14/17 21:49; Admin Dose 10 MG; Start 12/10/16 at 21:00; Status Future Hold Heparin Sodium (Porcine) (Heparin (5000 Units/0.5 ml)) 5,000 unit BID SC Last administered on 01/16/17 09:22; Admin Dose 5,000 UNIT; Start 12/11/16 at 21:00 Metoprolol Tartrate (Lopressor) 50 mg BID PO Last administered on 01/15/17 20: 35; Admin Dose 50 MG; Start 12/17/16 at 21:00 Polyethylene Glycol (Miralax) 17 gm BID PO Last administered on 01/16/17 09:19 ; Admin Dose 17 GM; Start 12/21/16 at 21:00 Miscellaneous Information 1 ea NOTE XX ; Start 12/21/16 at 17:30 Glucose (Glutose) 15 gm Q15M PRN PO DECREASED GLUCOSE; Start 12/21/16 at 17:30 Glucose (Glutose) 22.5 gm Q15M PRN PO DECREASED GLUCOSE; Start 12/21/16 at 17: 30 Dextrose (D50w Syringe) 25 ml Q15M PRN IV DECREASED GLUCOSE; Start 12/21/16 at 17:30 Dextrose (D50w Syringe) 50 ml Q15M PRN IV DECREASED GLUCOSE; Start 12/21/16 at 17:30 Glucagon (Glucagen) 1 mg Q15M PRN IM DECREASED GLUCOSE; Start 12/21/16 at 17:30 Glucose (Glutose) 15 gm Q15M PRN BUCCAL DECREASED GLUCOSE; Start 12/21/16 at 17 :30 Amlodipine Besylate (Norvasc) 5 mg BID PO Last administered on 01/15/17 20:36 ; Admin Dose 5 MG; Start 12/27/16 at 21:00 Acetaminophen/ Hydrocodone Bitart (Greer (5/325)) 1 tab Q4H PRN PO pain Last administered on 01/11/17 21:42; Admin Dose 1 TAB; Start 01/08/17 at 14:30 Cyanocobalamin (Vitamin B12 Inj) 1,000 mcg DAILY IM Last administered on 09:19; Admin Dose 1,000 MCG; Start 01/10/17 at 14:00 IV Flush (NS 10 ml) 10 ml PRN PRN IV IV PROTOCOL; Start 01/11/17 at 16:00 Haloperidol (Haldol) 5 mg Q4 PRN IM Anxiety Last administered on 01/15/17 13: 37; Admin Dose 5 MG; Start 01/12/17 at 20:00 Quetiapine Fumarate 50 mg 50 mg BID PO Last administered on 01/16/17 09:16; Admin Dose 50 MG; Start 01/15/17 at 21:00 Meropenem (Merrem 500 Mg/ 100 ml (Pmx)) 100 ml @ 200 mls/hr Q24H IVPB Last administered on 01/16/17 00:36; Admin Dose 200 MLS/HR; Start 01/15/17 at 21:00 Miscellaneous Information (*Rx Drug Level Order Reminder*) RANDOM VANCOMYCIN LEVEL 6... ONCE ONCE XX ; Start 01/17/17 at 05:00; Stop 01/17/17 at 05:01 SADIA AUGUSTINE MD Jan 16, 2017 18:40
--- NOTE | 2017-01-16 19:54 | PN ---
DATE: 01/16/2017 SUBJECTIVE: Patient is sleeping. No events per report overnight. No fevers. Looks comfortable. MICROBIOLOGY: Blood cultures from yesterday are preliminary negative. ANTIMICROBIALS: The patient was started on vancomycin, Merrem. INDWELLINGS: Femoral Norris placed on 01/13/2017 and PICC line placed on 01/11/2017. PHYSICAL EXAMINATION: GENERAL: This is well-developed, chronically ill-appearing, elderly man who is in no distress. HEENT: Head atraumatic, normocephalic. Sclerae anicteric. Buccal mucosa dry. NECK: Supple. CHEST: Rise symmetrical. Breath sounds diminished to bases. HEART: S1, S2. ABDOMEN: Soft. Bowel tones present. EXTREMITIES: No cyanosis. ASSESSMENT: 1. 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 2. Status post Proteus mirabilis urinary tract infection with bacteremia. 3. Status post pneumonia. 4. Pleural effusion. 5. Acute on chronic kidney disease, hemodialysis dependent. 6. Atrial fibrillation. 7. History of ETOH abuse. 8. ALLERGY TO PENICILLIN. PLAN: The patient remains stable. We will continue him on broad spectrum coverage. He has PICC li ne. He will require long-term IV antibiotics for 6 to 8 weeks. Follow with ortho for further recom mendations. Await for final cultures. Dictated By: CHERRIE JAUREGUI [employer] for AYAD RUIZ/RIKA Conf#: [id number] DID#: [id number]
[2017-01-16 20:26] VITALS: BP 140/65; RESP 18
--- NOTE | 2017-01-16 22:25 | RADRPT ---
PROCEDURE: CT chest without contrast CLINICAL INDICATION: Shortness of breath. Reevaluation of right pleural effusion TECHNIQUE: CT scan of the chest with contrast was performed without intravenous contrast. Coronal and sagittal images were reformatted. The CTDIvol = 13.07 mGy and DLP = 436.49 mGycm. COMPARISON: Most recent relevant exam is a chest x-ray of 01/12/2017. A prior CT abdomen and pelv is of 12/30/2016 is reviewed FINDINGS: Lungs, airway and pleura: The trachea and bronchi are patent as well as normal in caliber. Melanie sive atelectasis of the superior segment and posterior basal segment right lower lobe is present, sl ightly improved compared to the CT abdomen of 12/30/2016. Minimal compressive atelectasis of the po sterior basal segment left lower lobe is present, markedly improved from the prior CT of 12/30/2016. The dependent right pleural effusion occupies an estimated 10% of the pleural space, improved comp ared to the prior CT of 12/30/2016 but believed to be stable correlated with the chest x-ray of 02/2017 allowing for the different modalities. Tiny dependent left pleural effusion occupies less maria elena n 5% of the dependent thorax, markedly improved compared to the CT of 12/30/2016. Tiny subpleural b ullous changes in the right lung apex are present Mediastinum, ramon and cardiovascular: The heart is normal in size with extensive coronary artery ca lcification. There is no evidence for pericardial effusion. The thoracic aorta is normal in calibe r with severe atherosclerotic calcification. There is no evidence for hilar mass and no mediastinal adenopathy is present. The esophagus is normal in caliber. Osseous structures and musculoskeletal findings: Old healed posterior right rib fractures are again noted Demineralization with severe spondylosis and bridging syndesmophytes unable to exclude diffus e idiopathic skeletal hyperostosis. Irregularity and anterior spondylosis of the anterior 2 endplate is similar to the prior CT and unable to exclude chronic infection. No chest wall abnorm alities are present. The axillary regions are unremarkable. Visualized upper abdomen: No abnormalities are identified. The adrenal glands are normal bilateral ly. RPTAT:HJJR IMPRESSION: 1. Dependent right pleural effusion occupies an estimated 10% of the right hemithorax with compress jayden atelectasis of the posterior right lower lobe, findings believed to be stable compared to a [facility] t x-ray of 01/12/2017 when allowing for the different modalities but improved when correlated with t he CT abdomen and pelvis of 12/30/2016. 2. Trace left pleural effusion and left posterior lower lobe subsegmental atelectasis markedly impr karen from the prior CT of 12/30/2016. 3. Extensive coronary artery and thoracic aorta calcification. 4. Possible diffuse idiopathic skeletal hyperostosis with questionable chronic diskitis at T11-12 u nchanged from 12/30/2016. Physician Estrella Date Time Electronically viewed and signed by Shaheen Fisher Physician on 01/16/2017 22:25 JR/
[2017-01-17] VITALS (7 sets, daily range): BP systolic 87–133; BP diastolic 44–63; PULSE 74–79; RESP 16–18
[2017-01-17] MEDS: QUETIAPINE 25 MG TAB PO SCH ×2 (08:59→21:47)
[2017-01-17] MEDS: METOPROLOL 50 MG TAB PO SCH ×2 (08:59→21:48)
[2017-01-17] MEDS: FAMOTIDINE 20 MG TAB PO SCH (08:59)
[2017-01-17] MEDS: AMLODIPINE 5 MG TAB PO SCH ×2 (09:00→21:48)
[2017-01-17] MEDS: POLYETHYLENE GLYCOL 17 GM PACKET PO SCH ×2 (09:00→21:00)
[2017-01-17] MEDS: HEPARIN 5,000 UNIT/0.5 ML VIAL SC SCH (09:02)
[2017-01-17] MEDS: CYANOCOBALAMIN 1000 MCG INJ IM SCH (09:03)
[2017-01-17 09:38] LABS: ADD SCAN DIFF NO
[2017-01-17 09:40] LABS: BASOPHILS % 0.4 % (0.0-2.0); EOSINOPHILS # 0.3 10^3/ul (0.0-0.5); EOSINOPHILS % 2.8 % (0.0-7.0); HEMATOCRIT 26.2 % (42.0-52.0); HEMOGLOBIN 8.3 g/dl (14.0-18.0); LYMPHOCYTES % 9.1 % (15.0-51.0); MEAN CORPUSCULAR HEMOGLOBIN 29.7 pg (29.0-33.0); MEAN CORPUSCULAR HGB CONC 31.7 g/dl (32.0-37.0); MEAN CORPUSCULAR VOLUME 93.9 fl (82.0-101.0); MEAN PLATELET VOLUME 11.6 fl (7.4-10.4); MONOCYTE # 0.6 10^3/ul (0.3-0.9); MONOCYTES % 5.2 % (0.0-11.0); NEUTROPHIL # 8.9 10^3/ul (1.6-7.5); PLATELET COUNT 163 10^3/UL (140-415); RED BLOOD COUNT 2.79 10^6/ul (4.70-6.10); WHITE BLOOD COUNT 10.8 10^3/ul (4.8-10.8)
[2017-01-17 10:10] LABS: CALCIUM 8.8 mg/dl (8.4-10.2); CREATININE 5.53 mg/dl (0.61-1.24); POTASSIUM 3.5 mmol/L (3.5-5.1)
[2017-01-17] MEDS ORDERED: VANCOMYCIN 1.25 GM in SOD CHLORIDE 0.9% 250 ML IVPB SCH (13:00)
--- NOTE | 2017-01-17 14:23 | CONS ---
Date/Time of Note Date/Time of Note DATE: 01/17/17 TIME: 14:21 Assessment/Plan Assessment/Plan Chief Complaint/Hosp Course SUBJECTIVE: Patient is sleeping. No events per report overnight. No fevers. Looks comfortable. MICROBIOLOGY: Blood cultures are negative. ANTIMICROBIALS: Vancomycin, Merrem. INDWELLINGS: Femoral Norris placed on 01/13/2017 and PICC line placed on 01/11. PHYSICAL EXAMINATION: GENERAL: This is well-developed, chronically ill-appearing, elderly man who is in no distress. HEENT: Head atraumatic, normocephalic. Sclerae anicteric. Buccal mucosa dry. NECK: Supple. CHEST: Rise symmetrical. Breath sounds diminished to bases. HEART: S1, S2. ABDOMEN: Soft. Bowel tones present. EXTREMITIES: No cyanosis. ASSESSMENT: 1. 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 2. Status post Proteus mirabilis urinary tract infection with bacteremia. 3. Status post pneumonia. 4. Pleural effusion. 5. Acute on chronic kidney disease, hemodialysis dependent. 6. Atrial fibrillation. 7. History of ETOH abuse. 8. ALLERGY TO PENICILLIN. PLAN: The patient remains stable. Continue broad spectrum coverage. Consider IR needle aspiration with bx, f/u ortho rec-s, will require long-term IV antibiotics for 6 to 8 weeks. DW staff Problems: Consultation Date/Type/Reason Admit Date/Time December 10, 2016 at 16:57 Type of Consultation: ID Referring Provider: NETTA SALOMON MD Exam/Review of Systems Vital Signs Vitals Vital Signs Date Time Temp Pulse Resp B/P Pulse Ox O2 Delivery O2 Flow Rate FiO2 01/17/17 09:15 79 18 01/17/17 07:41 98.8 133/63 95 01/16/17 06:00 Room Air Intake and Output 01/16/17 01/16/17 01/17/17 15:00 23:00 07:00 Intake Total 315 ml 550 ml 240 ml Balance 315 ml 550 ml 240 ml Results Result Diagram: 01/17/17 0900 01/17/17 0900 Results 24 hrs Laboratory Tests Test 01/16/17 20:16 01/17/17 09:00 C-Reactive Protein 8.9 H White Blood Count 10.8 Red Blood Count 2.79 L Hemoglobin 8.3 L Hematocrit 26.2 L Mean Corpuscular Volume 93.9 Mean Corpuscular Hemoglobin 29.7 Mean Corpuscular Hemoglobin Concent 31.7 L Red Cell Distribution Width 15.0 H Platelet Count 163 # Mean Platelet Volume 11.6 H Neutrophils % 82.0 H Lymphocytes % 9.1 L Monocytes % 5.2 Eosinophils % 2.8 Basophils % 0.4 Nucleated Red Blood Cells % 0.0 Neutrophils # 8.9 H Lymphocytes # 1.0 Monocytes # 0.6 Eosinophils # 0.3 Basophils # 0.0 Nucleated Red Blood Cells # 0.0 Sodium Level 146 H Potassium Level 3.5 Chloride Level 107 Carbon Dioxide Level 29 Anion Gap 14 Blood Urea Nitrogen 35 H Creatinine 5.53 H Glucose Level 94 Calcium Level 8.8 Random Vancomycin Level 16.7 Medications Medications Current Medications Ondansetron HCl (Zofran Inj) 4 mg Q6H PRN IV NAUSEA AND/OR VOMITING Last administered on 12/24/16 12:08; Admin Dose 4 MG; Start 12/10/16 at 18:00 Magnesium Hydroxide (Milk Of Mag) 30 ml DAILY PRN PO CONSTIPATION Last administered on 12/29/16 08:56; Admin Dose 30 ML; Start 12/10/16 at 18:00 Bisacodyl (Dulcolax) 5 mg DAILY PRN PO CONSTIPATION; Start 12/10/16 at 18:00 Famotidine (Pepcid) 20 mg DAILY PO Last administered on 01/17/17 08:59; Admin Dose 20 MG; Start 12/11/16 at 09:00 Atorvastatin Calcium (Lipitor) 10 mg DAILY@21 PO Last administered on 01/14/17 21:49; Admin Dose 10 MG; Start 12/10/16 at 21:00; Status Future Hold Heparin Sodium (Porcine) (Heparin (5000 Units/0.5 ml)) 5,000 unit BID SC Last administered on 01/17/17 09:02; Admin Dose 5,000 UNIT; Start 12/11/16 at 21:00 Metoprolol Tartrate (Lopressor) 50 mg BID PO Last administered on 01/17/17 08: 59; Admin Dose 50 MG; Start 12/17/16 at 21:00 Polyethylene Glycol (Miralax) 17 gm BID PO Last administered on 01/17/17 09:00 ; Admin Dose 17 GM; Start 12/21/16 at 21:00 Miscellaneous Information 1 ea NOTE XX ; Start 12/21/16 at 17:30 Glucose (Glutose) 15 gm Q15M PRN PO DECREASED GLUCOSE; Start 12/21/16 at 17:30 Glucose (Glutose) 22.5 gm Q15M PRN PO DECREASED GLUCOSE; Start 12/21/16 at 17: 30 Dextrose (D50w Syringe) 25 ml Q15M PRN IV DECREASED GLUCOSE; Start 12/21/16 at 17:30 Dextrose (D50w Syringe) 50 ml Q15M PRN IV DECREASED GLUCOSE; Start 12/21/16 at 17:30 Glucagon (Glucagen) 1 mg Q15M PRN IM DECREASED GLUCOSE; Start 12/21/16 at 17:30 Glucose (Glutose) 15 gm Q15M PRN BUCCAL DECREASED GLUCOSE; Start 12/21/16 at 17 :30 Amlodipine Besylate (Norvasc) 5 mg BID PO Last administered on 01/17/17 09:00 ; Admin Dose 5 MG; Start 12/27/16 at 21:00 Acetaminophen/ Hydrocodone Bitart ([place] (5/325)) 1 tab Q4H PRN PO pain Last administered on 01/11/17 21:42; Admin Dose 1 TAB; Start 01/08/17 at 14:30 Cyanocobalamin (Vitamin B12 Inj) 1,000 mcg DAILY IM Last administered on 09:03; Admin Dose 1,000 MCG; Start 01/10/17 at 14:00 IV Flush (NS 10 ml) 10 ml PRN PRN IV IV PROTOCOL; Start 01/11/17 at 16:00 Haloperidol (Haldol) 5 mg Q4 PRN IM Anxiety Last administered on 01/15/17 13: 37; Admin Dose 5 MG; Start 01/12/17 at 20:00 Quetiapine Fumarate 50 mg 50 mg BID PO Last administered on 01/17/17 08:59; Admin Dose 50 MG; Start 01/15/17 at 21:00 Meropenem 100 ml @ 200 mls/hr Q24H IVPB Last administered on 01/16/17 21:04; Admin Dose 200 MLS/HR; Start 01/15/17 at 21:00 Vancomycin HCl/ Sodium Chloride (Vancocin/NS) 250 ml @ 83.333 mls/ hr 13 IVPB Last administered on 01/17/17t 13:38; Admin Dose 83.333 MLS/HR; Start 01/17/17 at 13:00; Stop 01/17/17 at 23:00 CHERRIE JAUREGUI NP Jan 17, 2017 14:23
--- NOTE | 2017-01-17 14:27 | CONS ---
Date/Time of Note Date/Time of Note DATE: 01/17/17 TIME: 14:25 Assessment/Plan Assessment/Plan Additional Assessment/Plan Acute kidney injury with intermittent hemodialysis Preserved ejection fraction Status post fall Vertebral osteomyelitis Sepsis with bacteremia Paroxysmal atrial fibrillation, currently sinus rhythm History of hypertension Recent UTI Alcohol abuse -Blood pressure trend overall remains stable. Fluid management via hemodialysis as per our nephrology colleagues. Consultation Date/Type/Reason Admit Date/Time December 10, 2016 at 16:57 Type of Consultation: cv Referring Provider: NETTA SALOMON MD 24 HR Interval Summary Free Text/Dictation Denies shortness of breath, chest pain Exam/Review of Systems Vital Signs Vitals Vital Signs Date Time Temp Pulse Resp B/P Pulse Ox O2 Delivery O2 Flow Rate FiO2 01/17/17 09:15 79 18 01/17/17 07:41 98.8 133/63 95 01/16/17 06:00 Room Air Intake and Output 01/16/17 01/16/17 01/17/17 15:00 23:00 07:00 Intake Total 315 ml 550 ml 240 ml Balance 315 ml 550 ml 240 ml Exam Following commands, lying in bed, family at bedside, no apparent distress Constitutional: alert Head: normocephalic Respiratory: other (Coarse breath sounds bilaterally, no wheezing) Cardiovascular: other (S1-S2 heard), regular rate and rhythm Gastrointestinal: bowel sounds, non-tender, soft Extremities: other (No edema) Results Result Diagram: 01/17/17 0900 01/17/17 0900 Results 24 hrs Laboratory Tests Test 01/16/17 20:16 01/17/17 09:00 C-Reactive Protein 8.9 H White Blood Count 10.8 Red Blood Count 2.79 L Hemoglobin 8.3 L Hematocrit 26.2 L Mean Corpuscular Volume 93.9 Mean Corpuscular Hemoglobin 29.7 Mean Corpuscular Hemoglobin Concent 31.7 L Red Cell Distribution Width 15.0 H Platelet Count 163 # Mean Platelet Volume 11.6 H Neutrophils % 82.0 H Lymphocytes % 9.1 L Monocytes % 5.2 Eosinophils % 2.8 Basophils % 0.4 Nucleated Red Blood Cells % 0.0 Neutrophils # 8.9 H Lymphocytes # 1.0 Monocytes # 0.6 Eosinophils # 0.3 Basophils # 0.0 Nucleated Red Blood Cells # 0.0 Sodium Level 146 H Potassium Level 3.5 Chloride Level 107 Carbon Dioxide Level 29 Anion Gap 14 Blood Urea Nitrogen 35 H Creatinine 5.53 H Glucose Level 94 Calcium Level 8.8 Random Vancomycin Level 16.7 Medications Medications Current Medications Ondansetron HCl (Zofran Inj) 4 mg Q6H PRN IV NAUSEA AND/OR VOMITING Last administered on 12/24/16 12:08; Admin Dose 4 MG; Start 12/10/16 at 18:00 Magnesium Hydroxide (Milk Of Mag) 30 ml DAILY PRN PO CONSTIPATION Last administered on 12/29/16 08:56; Admin Dose 30 ML; Start 12/10/16 at 18:00 Bisacodyl (Dulcolax) 5 mg DAILY PRN PO CONSTIPATION; Start 12/10/16 at 18:00 Famotidine (Pepcid) 20 mg DAILY PO Last administered on 01/17/17 08:59; Admin Dose 20 MG; Start 12/11/16 at 09:00 Atorvastatin Calcium (Lipitor) 10 mg DAILY@21 PO Last administered on 01/14/17 21:49; Admin Dose 10 MG; Start 12/10/16 at 21:00; Status Future Hold Heparin Sodium (Porcine) (Heparin (5000 Units/0.5 ml)) 5,000 unit BID SC Last administered on 01/17/17 09:02; Admin Dose 5,000 UNIT; Start 12/11/16 at 21:00 Metoprolol Tartrate (Lopressor) 50 mg BID PO Last administered on 01/17/17 08: 59; Admin Dose 50 MG; Start 12/17/16 at 21:00 Polyethylene Glycol (Miralax) 17 gm BID PO Last administered on 01/17/17 09:00 ; Admin Dose 17 GM; Start 12/21/16 at 21:00 Miscellaneous Information 1 ea NOTE XX ; Start 12/21/16 at 17:30 Glucose (Glutose) 15 gm Q15M PRN PO DECREASED GLUCOSE; Start 12/21/16 at 17:30 Glucose (Glutose) 22.5 gm Q15M PRN PO DECREASED GLUCOSE; Start 12/21/16 at 17: 30 Dextrose (D50w Syringe) 25 ml Q15M PRN IV DECREASED GLUCOSE; Start 12/21/16 at 17:30 Dextrose (D50w Syringe) 50 ml Q15M PRN IV DECREASED GLUCOSE; Start 12/21/16 at 17:30 Glucagon (Glucagen) 1 mg Q15M PRN IM DECREASED GLUCOSE; Start 12/21/16 at 17:30 Glucose (Glutose) 15 gm Q15M PRN BUCCAL DECREASED GLUCOSE; Start 12/21/16 at 17 :30 Amlodipine Besylate (Norvasc) 5 mg BID PO Last administered on 01/17/17 09:00 ; Admin Dose 5 MG; Start 12/27/16 at 21:00 Acetaminophen/ Hydrocodone Bitart ([place] (5/325)) 1 tab Q4H PRN PO pain Last administered on 01/11/17 21:42; Admin Dose 1 TAB; Start 01/08/17 at 14:30 Cyanocobalamin (Vitamin B12 Inj) 1,000 mcg DAILY IM Last administered on 09:03; Admin Dose 1,000 MCG; Start 01/10/17 at 14:00 IV Flush (NS 10 ml) 10 ml PRN PRN IV IV PROTOCOL; Start 01/11/17 at 16:00 Haloperidol (Haldol) 5 mg Q4 PRN IM Anxiety Last administered on 01/15/17 13: 37; Admin Dose 5 MG; Start 01/12/17 at 20:00 Quetiapine Fumarate 50 mg 50 mg BID PO Last administered on 01/17/17 08:59; Admin Dose 50 MG; Start 01/15/17 at 21:00 Meropenem 100 ml @ 200 mls/hr Q24H IVPB Last administered on 01/16/17 21:04; Admin Dose 200 MLS/HR; Start 01/15/17 at 21:00 Vancomycin HCl/ Sodium Chloride (Vancocin/NS) 250 ml @ 83.333 mls/ hr 13 IVPB Last administered on 01/17/17 13:38; Admin Dose 83.333 MLS/HR; Start 01/17/17 at 13:00; Stop 01/17/17 at 23:00 Zeyad Kelly DO Jan 17, 2017 14:27
--- NOTE | 2017-01-17 16:37 | PN ---
Date/Time of Note Date/Time of Note DATE: 01/17/17 TIME: 16:36 Assessment/Plan VTE Prophylaxis VTE Prophylaxis Intervention: SCD's Lines/Catheters IV Catheter Type (from Nrs): Peripheral IV Urinary Cath still in place: No Assessment/Plan Assessment/Plan 71 yo M presented with sepsis 2/2 proteus from source now sp abx treatment. Hospital course complicated by HCAP sp abx, acute on chronic back pain (imaging with spinal stenosis, repeat imaging concerning for OM/discitis), [facility]U requiring intermittent HD (renal still following) and toxic/metabolic encephalopathy. #spinal OM/discitis -abx as per ID, neurosurg following and does not believe from a NS standpoint that surgical intervention is indicated will dw ID tomorrow about IR biopsy #metabolic encephalopathy/agitation: neuro on board, slowly improving #dysphagia/poor PO tolerance: cont [employer] evals #urinary retention: as per #pAF: cont bb, amio. #h/o EtOH abuse: out of withdrawal window #DVT prophx: SCDs, SQH Subjective 24 Hr Interval Summary Free Text/Dictation Since I last saw the patient 7 days ago, it appears his agitation has improved significantly. No longer wearing UE restraints. Exam/Review of Systems Vital Signs Vitals Vital Signs Date Time Temp Pulse Resp B/P Pulse Ox O2 Delivery O2 Flow Rate FiO2 01/17/17 09:15 79 18 01/17/17 07:41 98.8 133/63 95 01/16/17 06:00 Room Air Intake and Output 01/16/17 01/16/17 01/17/17 15:00 23:00 07:00 Intake Total 315 ml 550 ml 240 ml Balance 315 ml 550 ml 240 ml Exam nad, laying in bed, resting comfortably no mrg lungs clear ntnd no le edema no ttp over paraspinals Results Result Diagram: 01/17/17 0901/17/17 0900 Results 24 hrs Laboratory Tests Test 01/16/17 20:16 01/17/17 09:00 C-Reactive Protein 8.9 H White Blood Count 10.8 Red Blood Count 2.79 L Hemoglobin 8.3 L Hematocrit 26.2 L Mean Corpuscular Volume 93.9 Mean Corpuscular Hemoglobin 29.7 Mean Corpuscular Hemoglobin Concent 31.7 L Red Cell Distribution Width 15.0 H Platelet Count 163 # Mean Platelet Volume 11.6 H Neutrophils % 82.0 H Lymphocytes % 9.1 L Monocytes % 5.2 Eosinophils % 2.8 Basophils % 0.4 Nucleated Red Blood Cells % 0.0 Neutrophils # 8.9 H Lymphocytes # 1.0 Monocytes # 0.6 Eosinophils # 0.3 Basophils # 0.0 Nucleated Red Blood Cells # 0.0 Sodium Level 146 H Potassium Level 3.5 Chloride Level 107 Carbon Dioxide Level 29 Anion Gap 14 Blood Urea Nitrogen 35 H Creatinine 5.53 H Glucose Level 94 Calcium Level 8.8 Random Vancomycin Level 16.7 Medications Medications Current Medications Ondansetron HCl (Zofran Inj) 4 mg Q6H PRN IV NAUSEA AND/OR VOMITING Last administered on 12/24/16 12:08; Admin Dose 4 MG; Start 12/10/16 at 18:00 Magnesium Hydroxide (Milk Of Mag) 30 ml DAILY PRN PO CONSTIPATION Last administered on 12/29/16 08:56; Admin Dose 30 ML; Start 12/10/16 at 18:00 Bisacodyl (Dulcolax) 5 mg DAILY PRN PO CONSTIPATION; Start 12/10/16 at 18:00 Famotidine (Pepcid) 20 mg DAILY PO Last administered on 01/17/17 08:59; Admin Dose 20 MG; Start 12/11/16 at 09:00 Atorvastatin Calcium (Lipitor) 10 mg DAILY@21 PO Last administered on 01/14/17 21:49; Admin Dose 10 MG; Start 12/10/16 at 21:00; Status Future Hold Heparin Sodium (Porcine) (Heparin (5000 Units/0.5 ml)) 5,000 unit BID SC Last administered on 01/17/17 09:02; Admin Dose 5,000 UNIT; Start 12/11/16 at 21:00 Metoprolol Tartrate (Lopressor) 50 mg BID PO Last administered on 01/17/17 08: 59; Admin Dose 50 MG; Start 12/17/16 at 21:00 Polyethylene Glycol (Miralax) 17 gm BID PO Last administered on 01/17/17 09:00 ; Admin Dose 17 GM; Start 12/21/16 at 21:00 Miscellaneous Information 1 ea NOTE XX ; Start 12/21/16 at 17:30 Glucose (Glutose) 15 gm Q15M PRN PO DECREASED GLUCOSE; Start 12/21/16 at 17:30 Glucose (Glutose) 22.5 gm Q15M PRN PO DECREASED GLUCOSE; Start 12/21/16 at 17: 30 Dextrose (D50w Syringe) 25 ml Q15M PRN IV DECREASED GLUCOSE; Start 12/21/16 at 17:30 Dextrose (D50w Syringe) 50 ml Q15M PRN IV DECREASED GLUCOSE; Start 12/21/16 at 17:30 Glucagon (Glucagen) 1 mg Q15M PRN IM DECREASED GLUCOSE; Start 12/21/16 at 17:30 Glucose (Glutose) 15 gm Q15M PRN BUCCAL DECREASED GLUCOSE; Start 12/21/16 at 17 :30 Amlodipine Besylate (Norvasc) 5 mg BID PO Last administered on 01/17/17 09:00 ; Admin Dose 5 MG; Start 12/27/16 at 21:00 Acetaminophen/ Hydrocodone Bitart ([place] (5/325)) 1 tab Q4H PRN PO pain Last administered on 01/11/17 21:42; Admin Dose 1 TAB; Start 01/08/17 at 14:30 Cyanocobalamin (Vitamin B12 Inj) 1,000 mcg DAILY IM Last administered on 09:03; Admin Dose 1,000 MCG; Start 01/10/17 at 14:00 IV Flush (NS 10 ml) 10 ml PRN PRN IV IV PROTOCOL; Start 01/11/17 at 16:00 Haloperidol (Haldol) 5 mg Q4 PRN IM Anxiety Last administered on 01/15/17 13: 37; Admin Dose 5 MG; Start 01/12/17 at 20:00 Quetiapine Fumarate 50 mg 50 mg BID PO Last administered on 01/17/17 08:59; Admin Dose 50 MG; Start 01/15/17 at 21:00 Meropenem 100 ml @ 200 mls/hr Q24H IVPB Last administered on 01/16/17 21:04; Admin Dose 200 MLS/HR; Start 01/15/17 at 21:00 Vancomycin HCl/ Sodium Chloride (Vancocin/NS) 250 ml @ 83.333 mls/ hr 13 IVPB Last administered on 01/17/17 13:38; Admin Dose 83.333 MLS/HR; Start 01/17/17 at 13:00; Stop 01/17/17 at 23:00 NETTA SALOMON MD Jan 17, 2017 16:37
--- NOTE | 2017-01-17 18:22 | CONS ---
Date/Time of Note Date/Time of Note DATE: 01/17/17 TIME: 18:17 Assessment/Plan Assessment/Plan Additional Assessment/Plan 1. Acute kidney injury on CKD progressing worsening- pt had a HD on 12/29 and - then HD catheter has been discontinued - makign good urine, but BUn/Cr slowly rising, 2. 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 Possible history of chronic kidney disease secondary to hypertensive nephrosclerosis. 5. History of hypertension. 6. History of gout. 7. History of hyperlipidemia. 8. Atrial fibrillation, rate controlled. 9. History of alcohol abuse. 10. Thrombocytopenia secondary to alcohol abuse. 11. sepsis due to UTI and bacteremia with Blood cx and urine Cx growing proteus - follow up blood cx negative 12. Moderate pleural effusion s/p Throacentesis 12/31/2016- 2.21 L Fluid removed PLAN: started on HD again due to persistent uremia and encephalopathy currently has danielle HD catheter- did not work well with Dialysis today- need to have changed to permacath for [facility] HD access- discussed with about it S/p Neurosurgeon evaluation - possible OM of spine on IV abx, ID following next HD will be on tuesday will follow up Consultation Date/Type/Reason Admit Date/Time December 10, 2016 at 16:57 Type of Consultation: NEPHROLOGY Referring Provider: NETTA SALOMON MD 24 HR Interval Summary Free Text/Dictation s/p HD today 1.6 L removed, Bp stable Exam/Review of Systems Vital Signs Vitals Vital Signs Date Time Temp Pulse Resp B/P Pulse Ox O2 Delivery O2 Flow Rate FiO2 01/17/17 09:15 79 18 01/17/17 07:41 98.8 133/63 95 01/16/17 06:00 Room Air Intake and Output 01/16/17 01/16/17 01/17/17 15:00 23:00 07:00 Intake Total 315 ml 550 ml 240 ml Balance 315 ml 550 ml 240 ml Exam GENERAL: This is well-developed, chronically ill-appearing, elderly man who is in no distress. HEENT: Head atraumatic, normocephalic. Sclerae anicteric. Buccal mucosa dry. NECK: Supple. CHEST: Rise symmetrical. Breath sounds diminished to bases. HEART: S1, S2. ABDOMEN: Soft. Bowel tones present. EXTREMITIES: No cyanosis. Results Result Diagram: 01/17/17 0900 01/17/17 0900 Results 24 hrs Laboratory Tests Test 01/16/17 20:16 01/17/17 09:00 C-Reactive Protein 8.9 H White Blood Count 10.8 Red Blood Count 2.79 L Hemoglobin 8.3 L Hematocrit 26.2 L Mean Corpuscular Volume 93.9 Mean Corpuscular Hemoglobin 29.7 Mean Corpuscular Hemoglobin Concent 31.7 L Red Cell Distribution Width 15.0 H Platelet Count 163 # Mean Platelet Volume 11.6 H Neutrophils % 82.0 H Lymphocytes % 9.1 L Monocytes % 5.2 Eosinophils % 2.8 Basophils % 0.4 Nucleated Red Blood Cells % 0.0 Neutrophils # 8.9 H Lymphocytes # 1.0 Monocytes # 0.6 Eosinophils # 0.3 Basophils # 0.0 Nucleated Red Blood Cells # 0.0 Sodium Level 146 H Potassium Level 3.5 Chloride Level 107 Carbon Dioxide Level 29 Anion Gap 14 Blood Urea Nitrogen 35 H Creatinine 5.53 H Glucose Level 94 Calcium Level 8.8 Random Vancomycin Level 16.7 Medications Medications Current Medications Ondansetron HCl (Zofran Inj) 4 mg Q6H PRN IV NAUSEA AND/OR VOMITING Last administered on 12/24/16 12:08; Admin Dose 4 MG; Start 12/10/16 at 18:00 Magnesium Hydroxide (Milk Of Mag) 30 ml DAILY PRN PO CONSTIPATION Last administered on 12/29/16 08:56; Admin Dose 30 ML; Start 12/10/16 at 18:00 Bisacodyl (Dulcolax) 5 mg DAILY PRN PO CONSTIPATION; Start 12/10/16 at 18:00 Famotidine (Pepcid) 20 mg DAILY PO Last administered on 01/17/17 08:59; Admin Dose 20 MG; Start 12/11/16 at 09:00 Atorvastatin Calcium (Lipitor) 10 mg DAILY@21 PO Last administered on 01/14/17 21:49; Admin Dose 10 MG; Start 12/10/16 at 21:00; Status Future Hold Heparin Sodium (Porcine) (Heparin (5000 Units/0.5 ml)) 5,000 unit BID SC Last administered on 01/17/17 09:02; Admin Dose 5,000 UNIT; Start 12/11/16 at 21:00 Metoprolol Tartrate (Lopressor) 50 mg BID PO Last administered on 01/17/17 08: 59; Admin Dose 50 MG; Start 12/17/16 at 21:00 Polyethylene Glycol (Miralax) 17 gm BID PO Last administered on 01/17/17 09:00 ; Admin Dose 17 GM; Start 12/21/16 at 21:00 Miscellaneous Information 1 ea NOTE XX ; Start 12/21/16 at 17:30 Glucose (Glutose) 15 gm Q15M PRN PO DECREASED GLUCOSE; Start 12/21/16 at 17:30 Glucose (Glutose) 22.5 gm Q15M PRN PO DECREASED GLUCOSE; Start 12/21/16 at 17: 30 Dextrose (D50w Syringe) 25 ml Q15M PRN IV DECREASED GLUCOSE; Start 12/21/16 at 17:30 Dextrose (D50w Syringe) 50 ml Q15M PRN IV DECREASED GLUCOSE; Start 12/21/16 at 17:30 Glucagon (Glucagen) 1 mg Q15M PRN IM DECREASED GLUCOSE; Start 12/21/16 at 17:30 Glucose (Glutose) 15 gm Q15M PRN BUCCAL DECREASED GLUCOSE; Start 12/21/16 at 17 :30 Amlodipine Besylate (Norvasc) 5 mg BID PO Last administered on 01/17/17 09:00 ; Admin Dose 5 MG; Start 12/27/16 at 21:00 Acetaminophen/ Hydrocodone Bitart ([place] (5/325)) 1 tab Q4H PRN PO pain Last administered on 01/11/17 21:42; Admin Dose 1 TAB; Start 01/08/17 at 14:30 Cyanocobalamin (Vitamin B12 Inj) 1,000 mcg DAILY IM Last administered on 09:03; Admin Dose 1,000 MCG; Start 01/10/17 at 14:00 IV Flush (NS 10 ml) 10 ml PRN PRN IV IV PROTOCOL; Start 01/11/17 at 16:00 Haloperidol (Haldol) 5 mg Q4 PRN IM Anxiety Last administered on 01/15/17 13: 37; Admin Dose 5 MG; Start 01/12/17 at 20:00 Quetiapine Fumarate 50 mg 50 mg BID PO Last administered on 01/17/17 08:59; Admin Dose 50 MG; Start 01/15/17 at 21:00 Meropenem 100 ml @ 200 mls/hr Q24H IVPB Last administered on 01/16/17 21:04; Admin Dose 200 MLS/HR; Start 01/15/17 at 21:00 Vancomycin HCl/ Sodium Chloride (Vancocin/NS) 250 ml @ 83.333 mls/ hr 13 IVPB Last administered on 01/17/17 13:38; Admin Dose 83.333 MLS/HR; Start 01/17/17 at 13:00; Stop 01/17/17 at 23:00 MADELYN MIRANDA MD Jan 17, 2017 18:22
--- NOTE | 2017-01-17 21:00 | PN ---
DATE: 01/17/2017 SUBJECTIVE: This patient denies having any pain and he has been refusing bladder scan. He did have , however, dialysis today. There was a bladder scan this morning to see if there is any retention. There was only 50 mL. Yesterday in the evening, he also had about 90 mL volume. He did wet the be d, according to the nurse, twice today. OBJECTIVE: VITAL SIGNS: Temperature is 98.8, pulse is 77, respiration 18, blood pressure 133/63. ABDOMEN: Soft. GENERAL: He is sleeping most of the time. LABORATORY DATA: CBC shows a white count of 10.8, hemoglobin 8.3, hematocrit 26.2. BUN is 35, crea tinine 5.5. As mentioned, he did have hemodialysis today about 1300 mL removed. The patient is comfortable and he is not restrained anymore. He does have a history of prostate cancer. He is status post radical prostatectomy. He had a CT of the chest yesterday and that showed a right pleural effusion. It occupies an estimat ed 10% of the right hemithorax with compressive atelectasis of the posterior right lower lobe. Thes e findings appeared to be stable compared to the chest x-ray from 01/12/2017. There is trace of lef t pleural effusion and left posterior lower lobe subsegmental atelectasis, markedly improved from th e prior CT, extensive coronary artery and thoracic aorta calcification, possible diffuse idiopathic skeletal hyperostosis with questionable chronic diskitis at T11-T12, unchanged since 12/30/2016. IMPRESSION: 1. History of prostate cancer status post post-radical prostatectomy. 2. The patient has renal failure and is on hemodialysis. 3. He did have a urinary tract infection and that that has been treated. 4. He does have urinary retention and he will be catheterized if the bladder volume goes over 500. Dictated By: LAUREN PERES MD BB/NTS Conf#: [id number] DID#: [id number] CC: CLOVIS SHORE MD;*EndCC*
[2017-01-17] MEDS: MEROPENEM 500 MG/100 ML (PMX) 100 ML IVPB SCH (21:41)
[2017-01-18] MEDS: HYDROCODONE/APAP (5/325) TAB PO PRN (00:01)
[2017-01-18 08:11] VITALS: BP 116/57; RESP 19
[2017-01-18] MEDS: POLYETHYLENE GLYCOL 17 GM PACKET PO SCH ×2 (09:00→20:14)
[2017-01-18] MEDS: FAMOTIDINE 20 MG TAB PO SCH (09:00)
[2017-01-18] MEDS: QUETIAPINE 25 MG TAB PO SCH ×2 (09:00→20:13)
[2017-01-18] MEDS: METOPROLOL 50 MG TAB PO SCH ×2 (09:00→20:14)
[2017-01-18] MEDS: AMLODIPINE 5 MG TAB PO SCH ×2 (09:00→20:14)
[2017-01-18] MEDS: CYANOCOBALAMIN 1000 MCG INJ IM SCH (09:10)
--- NOTE | 2017-01-18 14:07 | CONS ---
Date/Time of Note Date/Time of Note DATE: 01/18/17 TIME: 14:07 Assessment/Plan Assessment/Plan Chief Complaint/Hosp Course SUBJECTIVE: Patient is sleeping. No events per report overnight. No fevers. Looks comfortable. MICROBIOLOGY: Blood cultures are negative. ANTIMICROBIALS: Vancomycin, Merrem. INDWELLINGS: Femoral Norris placed on 01/13/2017 and PICC line placed on 01/11. PHYSICAL EXAMINATION: GENERAL: This is well-developed, chronically ill-appearing, elderly man who is in no distress. HEENT: Head atraumatic, normocephalic. Sclerae anicteric. Buccal mucosa dry. NECK: Supple. CHEST: Rise symmetrical. Breath sounds diminished to bases. HEART: S1, S2. ABDOMEN: Soft. Bowel tones present. EXTREMITIES: No cyanosis. ASSESSMENT: 1. 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 2. Status post Proteus mirabilis urinary tract infection with bacteremia. 3. Status post pneumonia. 4. Pleural effusion. 5. Acute on chronic kidney disease, hemodialysis dependent. 6. Atrial fibrillation. 7. History of ETOH abuse. 8. ALLERGY TO PENICILLIN. PLAN: The patient remains stable. Continue broad spectrum coverage. Consider IR needle aspiration with bx, f/u ortho rec-s, will require long-term IV antibiotics for 6 to 8 weeks. Pending permacath staff Problems: Consultation Date/Type/Reason Admit Date/Time December 10, 2016 at 16:57 Type of Consultation: id Referring Provider: NETTA SALOMON MD Exam/Review of Systems Vital Signs Vitals Vital Signs Date Time Temp Pulse Resp B/P Pulse Ox O2 Delivery O2 Flow Rate FiO2 01/18/17 08:11 98.6 65 19 116/57 94 01/16/17 06:00 Room Air Intake and Output 01/17/17 01/17/17 01/18/17 15:00 23:00 07:00 Intake Total 400 ml 420 ml 120 ml Output Total 1600 ml Balance -1200 ml 420 ml 120 ml Results Result Diagram: 01/17/17 0900 01/17/17 0900 Medications Medications Current Medications Ondansetron HCl (Zofran Inj) 4 mg Q6H PRN IV NAUSEA AND/OR VOMITING Last administered on 12/24/16t 12:08; Admin Dose 4 MG; Start 12/10/16 at 18:00 Magnesium Hydroxide (Milk Of Mag) 30 ml DAILY PRN PO CONSTIPATION Last administered on 12/29/16 08:56; Admin Dose 30 ML; Start 12/10/16 at 18:00 Bisacodyl (Dulcolax) 5 mg DAILY PRN PO CONSTIPATION; Start 12/10/16 at 18:00 Famotidine (Pepcid) 20 mg DAILY PO Last administered on 01/17/17 08:59; Admin Dose 20 MG; Start 12/11/16 at 09:00 Atorvastatin Calcium (Lipitor) 10 mg DAILY@21 PO Last administered on 01/14/17 21:49; Admin Dose 10 MG; Start 12/10/16 at 21:00; Status Future Hold Heparin Sodium (Porcine) (Heparin (5000 Units/0.5 ml)) 5,000 unit BID SC Last administered on 01/17/17 09:02; Admin Dose 5,000 UNIT; Start 12/11/16 at 21:00; Status Future hold Metoprolol Tartrate (Lopressor) 50 mg BID PO Last administered on 01/17/17 21: 48; Admin Dose 50 MG; Start 12/17/16 at 21:00 Polyethylene Glycol (Miralax) 17 gm BID PO Last administered on 01/17/17 09:00 ; Admin Dose 17 GM; Start 12/21/16 at 21:00 Miscellaneous Information 1 ea NOTE XX ; Start 12/21/16 at 17:30 Glucose (Glutose) 15 gm Q15M PRN PO DECREASED GLUCOSE; Start 12/21/16 at 17:30 Glucose (Glutose) 22.5 gm Q15M PRN PO DECREASED GLUCOSE; Start 12/21/16 at 17: 30 Dextrose (D50w Syringe) 25 ml Q15M PRN IV DECREASED GLUCOSE; Start 12/21/16 at 17:30 Dextrose (D50w Syringe) 50 ml Q15M PRN IV DECREASED GLUCOSE; Start 12/21/16 at 17:30 Glucagon (Glucagen) 1 mg Q15M PRN IM DECREASED GLUCOSE; Start 12/21/16 at 17:30 Glucose (Glutose) 15 gm Q15M PRN BUCCAL DECREASED GLUCOSE; Start 12/21/16 at 17 :30 Amlodipine Besylate (Norvasc) 5 mg BID PO Last administered on 01/17/17 21:48 ; Admin Dose 5 MG; Start 12/27/16 at 21:00 Acetaminophen/ Hydrocodone Bitart ([place] (5/325)) 1 tab Q4H PRN PO pain Last administered on 01/18/17 00:01; Admin Dose 1 TAB; Start 01/08/17 at 14:30 Cyanocobalamin (Vitamin B12 Inj) 1,000 mcg DAILY IM Last administered on 09:10; Admin Dose 1,000 MCG; Start 01/10/17 at 14:00 IV Flush (NS 10 ml) 10 ml PRN PRN IV IV PROTOCOL; Start 01/11/17 at 16:00 Haloperidol (Haldol) 5 mg Q4 PRN IM Anxiety Last administered on 01/15/17 13: 37; Admin Dose 5 MG; Start 01/12/17 at 20:00 Quetiapine Fumarate 50 mg 50 mg BID PO Last administered on 01/17/17 21:47; Admin Dose 50 MG; Start 01/15/17 at 21:00 Meropenem (Merrem 500 Mg/ 100 ml (Pmx)) 100 ml @ 200 mls/hr Q24H IVPB Last administered on 01/17/17 21:41; Admin Dose 200 MLS/HR; Start 01/15/17 at 21:00 CHERRIE JAUREGUI NP Jan 18, 2017 14:07
--- NOTE | 2017-01-18 16:26 | PN ---
Date/Time of Note Date/Time of Note DATE: 01/18/17 TIME: 16:26 Assessment/Plan VTE Prophylaxis VTE Prophylaxis Intervention: SCD's Lines/Catheters IV Catheter Type (from Nrs): Saline Lock Urinary Cath still in place: No Assessment/Plan Assessment/Plan 71 yo M presented with sepsis 2/2 proteus from source now sp abx treatment. Hospital course complicated by HCAP sp abx, acute on chronic back pain (imaging with spinal stenosis, repeat imaging concerning for OM/discitis), [facility]U requiring intermittent HD (renal still following) and toxic/metabolic encephalopathy. 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 #h/o EtOH abuse: out of withdrawal window #DVT prophx: SCDs, SQH Exam/Review of Systems Vital Signs Vitals Vital Signs Date Time Temp Pulse Resp B/P Pulse Ox O2 Delivery O2 Flow Rate FiO2 01/18/17 08:11 98.6 65 19 116/57 94 01/16/17 06:00 Room Air Intake and Output 01/17/17 01/17/17 01/18/17 15:00 23:00 07:00 Intake Total 400 ml 420 ml 120 ml Output Total 1600 ml Balance -1200 ml 420 ml 120 ml Exam laying in bed, wearing eyeshade on forehead resp nonlabored no gross abd distension no rashes no gross LE edema Results Result Diagram: 01/17/17 0900 01/17/17 0900 Medications Medications Current Medications Ondansetron HCl (Zofran Inj) 4 mg Q6H PRN IV NAUSEA AND/OR VOMITING Last administered on 12/24/16 12:08; Admin Dose 4 MG; Start 12/10/16 at 18:00 Magnesium Hydroxide (Milk Of Mag) 30 ml DAILY PRN PO CONSTIPATION Last administered on 12/29/16 08:56; Admin Dose 30 ML; Start 12/10/16 at 18:00 Bisacodyl (Dulcolax) 5 mg DAILY PRN PO CONSTIPATION; Start 12/10/16 at 18:00 Famotidine (Pepcid) 20 mg DAILY PO Last administered on 01/17/17 08:59; Admin Dose 20 MG; Start 12/11/16 at 09:00 Atorvastatin Calcium (Lipitor) 10 mg DAILY@21 PO Last administered on 01/14/17 21:49; Admin Dose 10 MG; Start 12/10/16 at 21:00; Status Future Hold Heparin Sodium (Porcine) (Heparin (5000 Units/0.5 ml)) 5,000 unit BID SC Last administered on 01/17/17 09:02; Admin Dose 5,000 UNIT; Start 12/11/16 at 21:00; Status Future hold Metoprolol Tartrate (Lopressor) 50 mg BID PO Last administered on 01/17/17 21: 48; Admin Dose 50 MG; Start 12/17/16 at 21:00 Polyethylene Glycol (Miralax) 17 gm BID PO Last administered on 01/17/17 09:00 ; Admin Dose 17 GM; Start 12/21/16 at 21:00 Miscellaneous Information 1 ea NOTE XX ; Start 12/21/16 at 17:30 Glucose (Glutose) 15 gm Q15M PRN PO DECREASED GLUCOSE; Start 12/21/16 at 17:30 Glucose (Glutose) 22.5 gm Q15M PRN PO DECREASED GLUCOSE; Start 12/21/16 at 17: 30 Dextrose (D50w Syringe) 25 ml Q15M PRN IV DECREASED GLUCOSE; Start 12/21/16 at 17:30 Dextrose (D50w Syringe) 50 ml Q15M PRN IV DECREASED GLUCOSE; Start 12/21/16 at 17:30 Glucagon (Glucagen) 1 mg Q15M PRN IM DECREASED GLUCOSE; Start 12/21/16 at 17:30 Glucose (Glutose) 15 gm Q15M PRN BUCCAL DECREASED GLUCOSE; Start 12/21/16 at 17 :30 Amlodipine Besylate (Norvasc) 5 mg BID PO Last administered on 01/17/17 21:48 ; Admin Dose 5 MG; Start 12/27/16 at 21:00 Acetaminophen/ Hydrocodone Bitart ([place] (5/325)) 1 tab Q4H PRN PO pain Last administered on 01/18/17 00:01; Admin Dose 1 TAB; Start 01/08/17 at 14:30 Cyanocobalamin (Vitamin B12 Inj) 1,000 mcg DAILY IM Last administered on 09:10; Admin Dose 1,000 MCG; Start 01/10/17 at 14:00 IV Flush (NS 10 ml) 10 ml PRN PRN IV IV PROTOCOL; Start 01/11/17 at 16:00 Haloperidol (Haldol) 5 mg Q4 PRN IM Anxiety Last administered on 01/15/17 13: 37; Admin Dose 5 MG; Start 01/12/17 at 20:00 Quetiapine Fumarate 50 mg 50 mg BID PO Last administered on 01/17/17 21:47; Admin Dose 50 MG; Start 01/15/17 at 21:00 Meropenem (Merrem 500 Mg/ 100 ml (Pmx)) 100 ml @ 200 mls/hr Q24H IVPB Last administered on 01/17/17 21:41; Admin Dose 200 MLS/HR; Start 01/15/17 at 21:00 NETTA SALOMON MD Jan 18, 2017 16:26
--- NOTE | 2017-01-18 16:42 | CONS ---
Date/Time of Note Date/Time of Note DATE: 01/18/17 TIME: 16:41 Assessment/Plan Assessment/Plan Additional Assessment/Plan Acute kidney injury with intermittent hemodialysis Preserved ejection fraction Status post fall Vertebral osteomyelitis Sepsis with bacteremia Paroxysmal atrial fibrillation, currently sinus rhythm History of hypertension Recent UTI Alcohol abuse -Blood pressure trend overall remains stable. Fluid management via hemodialysis as per our nephrology colleagues. No new cardiac orders at the current time Consultation Date/Type/Reason Admit Date/Time December 10, 2016 at 16:57 Type of Consultation: cv Referring Provider: NETTA SALOMON MD 24 HR Interval Summary Free Text/Dictation Denies shortness of breath, chest pain or palpitations Exam/Review of Systems Vital Signs Vitals Vital Signs Date Time Temp Pulse Resp B/P Pulse Ox O2 Delivery O2 Flow Rate FiO2 01/18/17 08:11 98.6 65 19 116/57 94 01/16/17 06:00 Room Air Intake and Output 01/17/17 01/17/17 01/18/17 14:59 22:59 06:59 Intake Total 400 ml 420 ml 120 ml Output Total 1600 ml Balance -1200 ml 420 ml 120 ml Exam Sleeping but arousable, following commands, no apparent distress Head: normocephalic Respiratory: other (Coarse breath sounds bilaterally, no wheezing) Cardiovascular: other (S1-S2 heard), regular rate and rhythm Gastrointestinal: bowel sounds, non-tender, soft Extremities: edema (Trace) Results Result Diagram: 01/17/17 0900 01/17/17 0900 Medications Medications Current Medications Ondansetron HCl (Zofran Inj) 4 mg Q6H PRN IV NAUSEA AND/OR VOMITING Last administered on 12/24/16 12:08; Admin Dose 4 MG; Start 12/10/16 at 18:00 Magnesium Hydroxide (Milk Of Mag) 30 ml DAILY PRN PO CONSTIPATION Last administered on 12/29/16 08:56; Admin Dose 30 ML; Start 12/10/16 at 18:00 Bisacodyl (Dulcolax) 5 mg DAILY PRN PO CONSTIPATION; Start 12/10/16 at 18:00 Famotidine (Pepcid) 20 mg DAILY PO Last administered on 01/17/17 08:59; Admin Dose 20 MG; Start 12/11/16 at 09:00 Atorvastatin Calcium (Lipitor) 10 mg DAILY@21 PO Last administered on 01/14/17 21:49; Admin Dose 10 MG; Start 12/10/16 at 21:00; Status Future Hold Heparin Sodium (Porcine) (Heparin (5000 Units/0.5 ml)) 5,000 unit BID SC Last administered on 01/17/17 09:02; Admin Dose 5,000 UNIT; Start 12/11/16 at 21:00; Status Future hold Metoprolol Tartrate (Lopressor) 50 mg BID PO Last administered on 01/17/17 21: 48; Admin Dose 50 MG; Start 12/17/16 at 21:00 Polyethylene Glycol (Miralax) 17 gm BID PO Last administered on 01/17/17 09:00 ; Admin Dose 17 GM; Start 12/21/16 at 21:00 Miscellaneous Information 1 ea NOTE XX ; Start 12/21/16 at 17:30 Glucose (Glutose) 15 gm Q15M PRN PO DECREASED GLUCOSE; Start 12/21/16 at 17:30 Glucose (Glutose) 22.5 gm Q15M PRN PO DECREASED GLUCOSE; Start 12/21/16 at 17: 30 Dextrose (D50w Syringe) 25 ml Q15M PRN IV DECREASED GLUCOSE; Start 12/21/16 at 17:30 Dextrose (D50w Syringe) 50 ml Q15M PRN IV DECREASED GLUCOSE; Start 12/21/16 at 17:30 Glucagon (Glucagen) 1 mg Q15M PRN IM DECREASED GLUCOSE; Start 12/21/16 at 17:30 Glucose (Glutose) 15 gm Q15M PRN BUCCAL DECREASED GLUCOSE; Start 12/21/16 at 17 :30 Amlodipine Besylate (Norvasc) 5 mg BID PO Last administered on 01/17/17 21:48 ; Admin Dose 5 MG; Start 12/27/16 at 21:00 Acetaminophen/ Hydrocodone Bitart ([place] (5/325)) 1 tab Q4H PRN PO pain Last administered on 01/18/17 00:01; Admin Dose 1 TAB; Start 01/08/17 at 14:30 Cyanocobalamin (Vitamin B12 Inj) 1,000 mcg DAILY IM Last administered on 09:10; Admin Dose 1,000 MCG; Start 01/10/17 at 14:00 IV Flush (NS 10 ml) 10 ml PRN PRN IV IV PROTOCOL; Start 01/11/17 at 16:00 Haloperidol (Haldol) 5 mg Q4 PRN IM Anxiety Last administered on 01/15/17 13: 37; Admin Dose 5 MG; Start 01/12/17 at 20:00 Quetiapine Fumarate 50 mg 50 mg BID PO Last administered on 01/17/17 21:47; Admin Dose 50 MG; Start 01/15/17 at 21:00 Meropenem (Merrem 500 Mg/ 100 ml (Pmx)) 100 ml @ 200 mls/hr Q24H IVPB Last administered on 01/17/17 21:41; Admin Dose 200 MLS/HR; Start 01/15/17 at 21:00 Zeyad Kelly DO Jan 18, 2017 16:42
[2017-01-18 16:56] LABS: CALCIUM 8.3 mg/dl (8.4-10.2); CREATININE 5.02 mg/dl (0.61-1.24); POTASSIUM 3.8 mmol/L (3.5-5.1)
[2017-01-18 20:01] VITALS: BP 126/60; RESP 18
[2017-01-18] MEDS: MEROPENEM 500 MG/100 ML (PMX) 100 ML IVPB SCH (20:16)
--- NOTE | 2017-01-18 21:18 | CONS ---
Date/Time of Note Date/Time of Note DATE: 01/18/17 TIME: 21:17 Assessment/Plan Assessment/Plan Additional Assessment/Plan 1. Acute kidney injury on CKD progressing worsening- pt had a HD on 12/29 and - then HD catheter has been discontinued - makign good urine, but BUn/Cr slowly rising, 2. 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 Possible history of chronic kidney disease secondary to hypertensive nephrosclerosis. 5. History of hypertension. 6. History of gout. 7. History of hyperlipidemia. 8. Atrial fibrillation, rate controlled. 9. History of alcohol abuse. 10. Thrombocytopenia secondary to alcohol abuse. 11. sepsis due to UTI and bacteremia with Blood cx and urine Cx growing proteus - follow up blood cx negative 12. Moderate pleural effusion s/p Throacentesis 12/31/2016- 2.21 L Fluid removed PLAN: started on HD again due to persistent uremia and encephalopathy currently has danielle HD catheter- did not work well with Dialysis today- need to have changed to permacath for fdc HD access- discussed with about it- plan for permacath tomorrow S/p Neurosurgeon evaluation - possible OM of spine on IV abx, ID following HD ordered for tomorrow will follow up Consultation Date/Type/Reason Admit Date/Time December 10, 2016 at 16:57 Type of Consultation: NEPHROLOGY Referring Provider: NETTA SALOMON MD 24 HR Interval Summary Free Text/Dictation plan for HD tomorrow, IV abx Exam/Review of Systems Vital Signs Vitals Vital Signs Date Time Temp Pulse Resp B/P Pulse Ox O2 Delivery O2 Flow Rate FiO2 01/18/17 20:01 98.3 77 18 126/60 99 01/16/17 06:00 Room Air Intake and Output 01/17/17 01/17/17 01/18/17 15:00 23:00 07:00 Intake Total 400 ml 420 ml 120 ml Output Total 1600 ml Balance -1200 ml 420 ml 120 ml Results Result Diagram: 01/17/17 0900 01/18/17 1600 Results 24 hrs Laboratory Tests Test 01/18/17 16:00 Sodium Level 137 Potassium Level 3.8 Chloride Level 102 Carbon Dioxide Level 28 Anion Gap 11 Blood Urea Nitrogen 30 H Creatinine 5.02 H Glucose Level 98 Calcium Level 8.3 L Medications Medications Current Medications Ondansetron HCl (Zofran Inj) 4 mg Q6H PRN IV NAUSEA AND/OR VOMITING Last administered on 12/24/16 12:08; Admin Dose 4 MG; Start 12/10/16 at 18:00 Magnesium Hydroxide (Milk Of Mag) 30 ml DAILY PRN PO CONSTIPATION Last administered on 12/29/16 08:56; Admin Dose 30 ML; Start 12/10/16 at 18:00 Bisacodyl (Dulcolax) 5 mg DAILY PRN PO CONSTIPATION; Start 12/10/16 at 18:00 Famotidine (Pepcid) 20 mg DAILY PO Last administered on 01/17/17 08:59; Admin Dose 20 MG; Start 12/11/16 at 09:00 Atorvastatin Calcium (Lipitor) 10 mg DAILY@21 PO Last administered on 01/14/17 21:49; Admin Dose 10 MG; Start 12/10/16 at 21:00; Status Future Hold Heparin Sodium (Porcine) (Heparin (5000 Units/0.5 ml)) 5,000 unit BID SC Last administered on 01/17/17 09:02; Admin Dose 5,000 UNIT; Start 12/11/16 at 21:00; Status Future hold Metoprolol Tartrate (Lopressor) 50 mg BID PO Last administered on 01/18/17 20: 14; Admin Dose 50 MG; Start 12/17/16 at 21:00 Polyethylene Glycol (Miralax) 17 gm BID PO Last administered on 01/18/17 20:14 ; Admin Dose 17 GM; Start 12/21/16 at 21:00 Miscellaneous Information 1 ea NOTE XX ; Start 12/21/16 at 17:30 Glucose (Glutose) 15 gm Q15M PRN PO DECREASED GLUCOSE; Start 12/21/16 at 17:30 Glucose (Glutose) 22.5 gm Q15M PRN PO DECREASED GLUCOSE; Start 12/21/16 at 17: 30 Dextrose (D50w Syringe) 25 ml Q15M PRN IV DECREASED GLUCOSE; Start 12/21/16 at 17:30 Dextrose (D50w Syringe) 50 ml Q15M PRN IV DECREASED GLUCOSE; Start 12/21/16 at 17:30 Glucagon (Glucagen) 1 mg Q15M PRN IM DECREASED GLUCOSE; Start 12/21/16 at 17:30 Glucose (Glutose) 15 gm Q15M PRN BUCCAL DECREASED GLUCOSE; Start 12/21/16 at 17 :30 Amlodipine Besylate (Norvasc) 5 mg BID PO Last administered on 01/18/17 20:14 ; Admin Dose 5 MG; Start 12/27/16 at 21:00 Acetaminophen/ Hydrocodone Bitart ([place] (5/325)) 1 tab Q4H PRN PO pain Last administered on 01/18/17 00:01; Admin Dose 1 TAB; Start 01/08/17 at 14:30 Cyanocobalamin (Vitamin B12 Inj) 1,000 mcg DAILY IM Last administered on 09:10; Admin Dose 1,000 MCG; Start 01/10/17 at 14:00 IV Flush (NS 10 ml) 10 ml PRN PRN IV IV PROTOCOL; Start 01/11/17 at 16:00 Haloperidol (Haldol) 5 mg Q4 PRN IM Anxiety Last administered on 01/15/17 13: 37; Admin Dose 5 MG; Start 01/12/17 at 20:00 Quetiapine Fumarate 50 mg 50 mg BID PO Last administered on 01/18/17 20:13; Admin Dose 50 MG; Start 01/15/17 at 21:00 Meropenem (Merrem 500 Mg/ 100 ml (Pmx)) 100 ml @ 200 mls/hr Q24H IVPB Last administered on 01/18/17 20:16; Admin Dose 200 MLS/HR; Start 01/15/17 at 21:00 MADELYN MIRANDA MD Jan 18, 2017 21:18
[2017-01-18] MEDS: HEPARIN 5,000 UNIT/0.5 ML VIAL SC SCH (22:04)
[2017-01-19] VITALS (9 sets, daily range): BP systolic 105–135; BP diastolic 51–65; PULSE 76–80; RESP 18
[2017-01-19 06:47] LABS: CALCIUM 8.5 mg/dl (8.4-10.2); CREATININE 5.18 mg/dl (0.61-1.24); POTASSIUM 4.3 mmol/L (3.5-5.1)
[2017-01-19] MEDS: AMLODIPINE 5 MG TAB PO SCH ×2 (08:56→20:10)
[2017-01-19] MEDS: METOPROLOL 50 MG TAB PO SCH ×2 (08:56→20:10)
[2017-01-19] MEDS: CYANOCOBALAMIN 1000 MCG INJ IM SCH (09:00)
[2017-01-19] MEDS: POLYETHYLENE GLYCOL 17 GM PACKET PO SCH ×2 (09:04→20:10)
[2017-01-19] MEDS: FAMOTIDINE 20 MG TAB PO SCH (09:05)
[2017-01-19] MEDS: QUETIAPINE 25 MG TAB PO SCH ×2 (09:05→20:10)
[2017-01-19] MEDS: HEPARIN 5,000 UNIT/0.5 ML VIAL SC SCH ×2 (09:07→20:13)
--- NOTE | 2017-01-19 10:40 | PN ---
Date/Time of Note Date/Time of Note DATE: 01/19/17 TIME: 10:31 Assessment/Plan VTE Prophylaxis VTE Prophylaxis Intervention: heparin Lines/Catheters IV Catheter Type (from Nrs): AKILAH CATH Urinary Cath still in place: No Assessment/Plan Chief Complaint/Hosp Course Assessment/Plan 1. Status post sepsis UTI with Proteus mirabilis. improved. ABX per ID 2. T11-T12 osteomyelitis and diskitis. cont abx per ID. will need senior care abx. no surgical intervention at this time per neuro surgeon 3. CKD. Plan for permacath placement for HD. 4. Essential hypertension. Continue antihypertensives and adjust as needed 5. History of alcohol abuse. Cessation was advised. 6. History of atrial fibrillation. Stable at present. Continue on beta- anjelica and amiodarone 7. Urinary retention. On Mccormack catheter per urology recommendations DVT Provox: SCDs and heparin Disposition and plan: Plan for permacath placement. Will follow up. Discussed plan of care with Dr. Carbajal Problems: Subjective 24 Hr Interval Summary Free Text/Dictation no s/s of distress. little anxious Exam/Review of Systems Vital Signs Vitals Vital Signs Date Time Temp Pulse Resp B/P Pulse Ox O2 Delivery O2 Flow Rate FiO2 01/19/17 08:00 98.6 18 18 134/65 96 01/16/17 06:00 Room Air Intake and Output 01/18/17 01/18/17 01/19/17 15:00 23:00 07:00 Intake Total 370 ml 240 ml Output Total 350 ml 600 ml Balance 20 ml -360 ml Exam Constitutional: alert, oriented Psych: anxiety Head: normocephalic Neck: supple, No jvd Respiratory: clear to auscultation, normal air movement Cardiovascular: other (regular rate) Gastrointestinal: non-tender, soft Extremities: No edema Neurological: nl mental status, nl speech Results Result Diagram: 01/17/17 0900 01/19/17 0539 Results 24 hrs Laboratory Tests Test 01/18/17 16:00 01/19/17 05:39 Sodium Level 137 139 Potassium Level 3.8 4.3 Chloride Level 102 107 Carbon Dioxide Level 28 23 Anion Gap 11 13 Blood Urea Nitrogen 30 H 31 H Creatinine 5.02 H 5.18 H Glucose Level 98 82 Calcium Level 8.3 L 8.5 Medications Medications Current Medications Ondansetron HCl (Zofran Inj) 4 mg Q6H PRN IV NAUSEA AND/OR VOMITING Last administered on 12/24/16 12:08; Admin Dose 4 MG; Start 12/10/16 at 18:00 Magnesium Hydroxide (Milk Of Mag) 30 ml DAILY PRN PO CONSTIPATION Last administered on 12/29/16 08:56; Admin Dose 30 ML; Start 12/10/16 at 18:00 Bisacodyl (Dulcolax) 5 mg DAILY PRN PO CONSTIPATION; Start 12/10/16 at 18:00 Famotidine (Pepcid) 20 mg DAILY PO Last administered on 01/19/17 09:05; Admin Dose 20 MG; Start 12/11/16 at 09:00 Atorvastatin Calcium (Lipitor) 10 mg DAILY@21 PO Last administered on 01/14/17 21:49; Admin Dose 10 MG; Start 12/10/16 at 21:00; Status Future Hold Heparin Sodium (Porcine) (Heparin (5000 Units/0.5 ml)) 5,000 unit BID SC Last administered on 01/19/17 09:07; Admin Dose 5,000 UNIT; Start 12/11/16 at 21:00; Status Future hold Metoprolol Tartrate (Lopressor) 50 mg BID PO Last administered on 01/18/17 20: 14; Admin Dose 50 MG; Start 12/17/16 at 21:00 Polyethylene Glycol (Miralax) 17 gm BID PO Last administered on 01/19/17 09:04 ; Admin Dose 17 GM; Start 12/21/16 at 21:00 Miscellaneous Information 1 ea NOTE XX ; Start 12/21/16 at 17:30 Glucose (Glutose) 15 gm Q15M PRN PO DECREASED GLUCOSE; Start 12/21/16 at 17:30 Glucose (Glutose) 22.5 gm Q15M PRN PO DECREASED GLUCOSE; Start 12/21/16 at 17: 30 Dextrose (D50w Syringe) 25 ml Q15M PRN IV DECREASED GLUCOSE; Start 12/21/16 at 17:30 Dextrose (D50w Syringe) 50 ml Q15M PRN IV DECREASED GLUCOSE; Start 12/21/16 at 17:30 Glucagon (Glucagen) 1 mg Q15M PRN IM DECREASED GLUCOSE; Start 12/21/16 at 17:30 Glucose (Glutose) 15 gm Q15M PRN BUCCAL DECREASED GLUCOSE; Start 12/21/16 at 17 :30 Amlodipine Besylate (Norvasc) 5 mg BID PO Last administered on 01/18/17 20:14 ; Admin Dose 5 MG; Start 12/27/16 at 21:00 Acetaminophen/ Hydrocodone Bitart ([place] (5/325)) 1 tab Q4H PRN PO pain Last administered on 01/18/17 00:01; Admin Dose 1 TAB; Start 01/08/17 at 14:30 Cyanocobalamin (Vitamin B12 Inj) 1,000 mcg DAILY IM Last administered on 09:00; Admin Dose 1,000 MCG; Start 01/10/17 at 14:00 IV Flush (NS 10 ml) 10 ml PRN PRN IV IV PROTOCOL; Start 01/11/17 at 16:00 Haloperidol (Haldol) 5 mg Q4 PRN IM Anxiety Last administered on 01/15/17 13: 37; Admin Dose 5 MG; Start 01/12/17 at 20:00 Quetiapine Fumarate 50 mg 50 mg BID PO Last administered on 01/19/17 09:05; Admin Dose 50 MG; Start 01/15/17 at 21:00 Meropenem (Merrem 500 Mg/ 100 ml (Pmx)) 100 ml @ 200 mls/hr Q24H IVPB Last administered on 01/18/17 20:16; Admin Dose 200 MLS/HR; Start 01/15/17 at 21:00 SANJAY ANDREA Jan 19, 2017 10:40
--- NOTE | 2017-01-19 11:32 | PN ---
DATE: 01/19/2017 SUBJECTIVE: Urinary retention. The patient is awake today, he is talking and he was asking if he i s going for surgery, but he is also confused. He thinks that he is going for surgery, where so ng to the staff he is not and he had already breakfast. He denies having any pain when they cathete rize him and he is not urinating on his own. OBJECTIVE: VITAL SIGNS: Temperature is 98.3, pulse is 77, respiration 18, blood pressure 126/60. ABDOMEN: Soft. There is no abdominal mass palpable. LABORATORY DATA: His last CBC shows a white count of 10.8, hemoglobin 8.3, hematocrit 26.2. BUN is 31, creatinine 5.18 and the patient is on hemodialysis. Still, however, makes urine and the last t leonard they checked his bladder scan, it showed that he had 659 mL of urine. However, when they cathet erized him, they obtained only 350 mL. IMPRESSION: Urinary retention. The patient does have a history of prostate cancer, is status post radical prostatectomy. Most likely he is in retention because he is in bed and not active and on me dications. PLAN: To continue doing in and out cath on him whenever the bladder scan shows a volume of over 500 mL. Dictated By: LAUREN GIL/RIKA Conf#: [id number] DID#: [id number]
--- NOTE | 2017-01-19 14:49 | CONS ---
Date/Time of Note Date/Time of Note DATE: 01/19/17 TIME: 14:47 Assessment/Plan Assessment/Plan Chief Complaint/Hosp Course SUBJECTIVE: No events per report overnight. No fevers. Awake, looks comfortable, trying to eat childers while being flat in bed. MICROBIOLOGY: Blood cultures are negative. ANTIMICROBIALS: Vancomycin, Merrem. INDWELLINGS: Femoral Norris placed on 01/13/2017 and PICC line placed on 01/11. PHYSICAL EXAMINATION: GENERAL: This is well-developed, chronically ill-appearing, elderly man who is in no distress. HEENT: Head atraumatic, normocephalic. Sclerae anicteric. Buccal mucosa dry. NECK: Supple. CHEST: Rise symmetrical. Breath sounds diminished to bases. HEART: S1, S2. ABDOMEN: Soft. Bowel tones present. EXTREMITIES: No cyanosis. ASSESSMENT: 1. 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 2. Status post Proteus mirabilis urinary tract infection with bacteremia. 3. Status post pneumonia. 4. Pleural effusion. 5. Acute on chronic kidney disease, hemodialysis dependent. 6. Atrial fibrillation. 7. History of ETOH abuse. 8. ALLERGY TO PENICILLIN. PLAN: The patient remains stable. Continue broad spectrum coverage. Consider IR needle aspiration with bx, f/u ortho rec-s, will require long-term IV antibiotics for 6 to 8 weeks. Aspiration precautions==> pt has back pain, unable to sit up, dw RN placing pt in reverse Trendelenberg DW staff Problems: Consultation Date/Type/Reason Admit Date/Time December 10, 2016 at 16:57 Type of Consultation: ID Referring Provider: NETTA SALOMON MD Exam/Review of Systems Vital Signs Vitals Vital Signs Date Time Temp Pulse Resp B/P Pulse Ox O2 Delivery O2 Flow Rate FiO2 01/19/17 10:40 79 01/19/17 10:40 18 01/19/17 08:00 98.6 134/65 96 01/16/17 06:00 Room Air Intake and Output 01/18/17 01/18/17 01/19/17 15:00 23:00 07:00 Intake Total 370 ml 240 ml Output Total 350 ml 600 ml Balance 20 ml -360 ml Results Result Diagram: 01/17/17 0900 01/19/17 0539 Results 24 hrs Laboratory Tests Test 01/18/17 16:00 01/19/17 05:39 Sodium Level 137 139 Potassium Level 3.8 4.3 Chloride Level 102 107 Carbon Dioxide Level 28 23 Anion Gap 11 13 Blood Urea Nitrogen 30 H 31 H Creatinine 5.02 H 5.18 H Glucose Level 98 82 Calcium Level 8.3 L 8.5 Medications Medications Current Medications Ondansetron HCl (Zofran Inj) 4 mg Q6H PRN IV NAUSEA AND/OR VOMITING Last administered on 12/24/16 12:08; Admin Dose 4 MG; Start 12/10/16 at 18:00 Magnesium Hydroxide (Milk Of Mag) 30 ml DAILY PRN PO CONSTIPATION Last administered on 12/29/16 08:56; Admin Dose 30 ML; Start 12/10/16 at 18:00 Bisacodyl (Dulcolax) 5 mg DAILY PRN PO CONSTIPATION; Start 12/10/16 at 18:00 Famotidine (Pepcid) 20 mg DAILY PO Last administered on 01/19/17 09:05; Admin Dose 20 MG; Start 12/11/16 at 09:00 Atorvastatin Calcium (Lipitor) 10 mg DAILY@21 PO Last administered on 01/14/17 21:49; Admin Dose 10 MG; Start 12/10/16 at 21:00; Status Future Hold Heparin Sodium (Porcine) (Heparin (5000 Units/0.5 ml)) 5,000 unit BID SC Last administered on 01/19/17 09:07; Admin Dose 5,000 UNIT; Start 12/11/16 at 21:00; Status Future hold Metoprolol Tartrate (Lopressor) 50 mg BID PO Last administered on 01/18/17 20: 14; Admin Dose 50 MG; Start 12/17/16 at 21:00 Polyethylene Glycol (Miralax) 17 gm BID PO Last administered on 01/19/17 09:04 ; Admin Dose 17 GM; Start 12/21/16 at 21:00 Miscellaneous Information 1 ea NOTE XX ; Start 12/21/16 at 17:30 Glucose (Glutose) 15 gm Q15M PRN PO DECREASED GLUCOSE; Start 12/21/16 at 17:30 Glucose (Glutose) 22.5 gm Q15M PRN PO DECREASED GLUCOSE; Start 12/21/16 at 17: 30 Dextrose (D50w Syringe) 25 ml Q15M PRN IV DECREASED GLUCOSE; Start 12/21/16 at 17:30 Dextrose (D50w Syringe) 50 ml Q15M PRN IV DECREASED GLUCOSE; Start 12/21/16 at 17:30 Glucagon (Glucagen) 1 mg Q15M PRN IM DECREASED GLUCOSE; Start 12/21/16 at 17:30 Glucose (Glutose) 15 gm Q15M PRN BUCCAL DECREASED GLUCOSE; Start 12/21/16 at 17 :30 Amlodipine Besylate (Norvasc) 5 mg BID PO Last administered on 01/18/17 20:14 ; Admin Dose 5 MG; Start 12/27/16 at 21:00 Acetaminophen/ Hydrocodone Bitart ([place] (5/325)) 1 tab Q4H PRN PO pain Last administered on 01/18/17 00:01; Admin Dose 1 TAB; Start 01/08/17 at 14:30 Cyanocobalamin (Vitamin B12 Inj) 1,000 mcg DAILY IM Last administered on 09:00; Admin Dose 1,000 MCG; Start 01/10/17 at 14:00 IV Flush (NS 10 ml) 10 ml PRN PRN IV IV PROTOCOL; Start 01/11/17 at 16:00 Haloperidol (Haldol) 5 mg Q4 PRN IM Anxiety Last administered on 01/15/17 13: 37; Admin Dose 5 MG; Start 01/12/17 at 20:00 Quetiapine Fumarate 50 mg 50 mg BID PO Last administered on 01/19/17 09:05; Admin Dose 50 MG; Start 01/15/17 at 21:00 Meropenem (Merrem 500 Mg/ 100 ml (Pmx)) 100 ml @ 200 mls/hr Q24H IVPB Last administered on 01/18/17 20:16; Admin Dose 200 MLS/HR; Start 01/15/17 at 21:00 Miscellaneous Information (*Rx Drug Level Order Reminder*) VANCOMYCIN RANDOM ON 01/06... ONCE ONCE XX ; Start 01/20/17 at 05:00; Stop 01/20/17 at 05:01 CHERRIE JAUREGUI NP Jan 19, 2017 14:49
--- NOTE | 2017-01-19 17:18 | PN ---
Date/Time of Note Date/Time of Note DATE: 01/19/17 TIME: 17:15 Assessment/Plan Lines/Catheters IV Catheter Type (from [facility]): AKILAH CATH Mccormack in Place (from Nrs): No Assessment/Plan Chief Complaint/Hosp Course -Chronic kidney disease, impending end-stage renal: It seems the patient's chronic kidney disease has gotten worse during his admission to the hospital and requiring urgent dialysis, as he has pulled out his chest wall catheter. S/ P Urgent Akilah catheter placement -Will plan for eventual PermCath catheter and fistula creation if needed. Patient refused exchange of catheter and placement of a new perm cath -Upon bilateral upper extremity vein mapping patient has multiple options for possible fistula creation. -Optimize vascular status (BP meds, diet, nutrition, exercise, sugar control, antiplatelets). -Discussed programs for alcohol cessation and smoking cessation. -Discussed findings, plan and management with the primary service and his sister -Thank you for allowing us to partake in the care of your patient. Please call with any questions. Problems: Subjective 24 Hr Interval Summary noncompliant and following commands poorly, He refused HD catheter exchange today Exam/Review of Systems Vital Signs Vitals Vital Signs Date Time Temp Pulse Resp B/P Pulse Ox O2 Delivery O2 Flow Rate FiO2 01/19/17 10:40 79 01/19/17 10:40 18 01/19/17 08:00 98.6 134/65 96 01/16/17 06:00 Room Air Intake and Output 01/18/17 01/18/17 01/19/17 15:00 23:00 07:00 Intake Total 370 ml 240 ml Output Total 350 ml 600 ml Balance 20 ml -360 ml Exam Free Text/Dictation GENERAL: Patient awake, otherwise unable to be oriented to time and place. PULMONARY: Bilateral crackles at the bases. CARDIOVASCULAR: S1, S2 present. Irregularly irregular. ABDOMEN: Soft, nontender, nondistended. Bowel sounds positive. EXTREMITIES: Right lower extremity palpable femoral pulse, nonpalpable pedal pulse. Motor, sensory seems to be intact. Capillary refill 3 seconds. Right groin cath intact Left lower extremity palpable femoral pulse, nonpalpable pedal pulse. Motor and sensory seems to be intact. Capillary refill 3 seconds. Results Result Diagram: 01/17/17 0900 01/19/17 0539 JANIS ROBERTO MD Jan 19, 2017 17:18
--- NOTE | 2017-01-19 18:09 | CONS ---
Date/Time of Note Date/Time of Note DATE: 01/19/17 TIME: 18:08 Assessment/Plan Assessment/Plan Additional Assessment/Plan 1. Acute kidney injury on CKD progressing worsening- pt had a HD on 12/29 and - then HD catheter has been discontinued - makign good urine, but BUn/Cr slowly rising, 2. 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 Possible history of chronic kidney disease secondary to hypertensive nephrosclerosis. 5. History of hypertension. 6. History of gout. 7. History of hyperlipidemia. 8. Atrial fibrillation, rate controlled. 9. History of alcohol abuse. 10. Thrombocytopenia secondary to alcohol abuse. 11. sepsis due to UTI and bacteremia with Blood cx and urine Cx growing proteus - follow up blood cx negative 12. Moderate pleural effusion s/p Throacentesis 12/31/2016- 2.21 L Fluid removed PLAN: started on HD again due to persistent uremia and encephalopathy currently has danielle HD catheter- did not work well with Dialysis today- need to have changed to permacath for intermediate HD access- discussed with about it- plan for permacath tomorrow S/p Neurosurgeon evaluation - possible OM of spine on IV abx, ID following s/p HD today, will keep pt on MWF schedule will follow up Consultation Date/Type/Reason Admit Date/Time December 10, 2016 at 16:57 Type of Consultation: NEPHROLOG Y Referring Provider: NETTA SALOMON MD 24 HR Interval Summary Free Text/Dictation s/p HD today, afebrile, BP stable, pt still sleepy and lethargic Exam/Review of Systems Vital Signs Vitals Vital Signs Date Time Temp Pulse Resp B/P Pulse Ox O2 Delivery O2 Flow Rate FiO2 01/19/17 10:40 79 01/19/17 10:40 18 01/19/17 08:00 98.6 134/65 96 01/16/17 06:00 Room Air Intake and Output 01/18/17 01/18/17 01/19/17 15:00 23:00 07:00 Intake Total 370 ml 240 ml Output Total 350 ml 600 ml Balance 20 ml -360 ml Results Result Diagram: 01/17/17 0900 01/19/17 0539 Results 24 hrs Laboratory Tests Test 01/19/17 05:39 Sodium Level 139 Potassium Level 4.3 Chloride Level 107 Carbon Dioxide Level 23 Anion Gap 13 Blood Urea Nitrogen 31 H Creatinine 5.18 H Glucose Level 82 Calcium Level 8.5 Medications Medications Current Medications Ondansetron HCl (Zofran Inj) 4 mg Q6H PRN IV NAUSEA AND/OR VOMITING Last administered on 12/24/16 12:08; Admin Dose 4 MG; Start 12/10/16 at 18:00 Magnesium Hydroxide (Milk Of Mag) 30 ml DAILY PRN PO CONSTIPATION Last administered on 12/29/16 08:56; Admin Dose 30 ML; Start 12/10/16 at 18:00 Bisacodyl (Dulcolax) 5 mg DAILY PRN PO CONSTIPATION; Start 12/10/16 at 18:00 Famotidine (Pepcid) 20 mg DAILY PO Last administered on 01/19/17 09:05; Admin Dose 20 MG; Start 12/11/16 at 09:00 Atorvastatin Calcium (Lipitor) 10 mg DAILY@21 PO Last administered on 01/14/17 21:49; Admin Dose 10 MG; Start 12/10/16 at 21:00; Status Future Hold Heparin Sodium (Porcine) (Heparin (5000 Units/0.5 ml)) 5,000 unit BID SC Last administered on 01/19/17 09:07; Admin Dose 5,000 UNIT; Start 12/11/16 at 21:00; Status Future hold Metoprolol Tartrate (Lopressor) 50 mg BID PO Last administered on 01/18/17 20: 14; Admin Dose 50 MG; Start 12/17/16 at 21:00 Polyethylene Glycol (Miralax) 17 gm BID PO Last administered on 01/19/17 09:04 ; Admin Dose 17 GM; Start 12/21/16 at 21:00 Miscellaneous Information 1 ea NOTE XX ; Start 12/21/16 at 17:30 Glucose (Glutose) 15 gm Q15M PRN PO DECREASED GLUCOSE; Start 12/21/16 at 17:30 Glucose (Glutose) 22.5 gm Q15M PRN PO DECREASED GLUCOSE; Start 12/21/16 at 17: 30 Dextrose (D50w Syringe) 25 ml Q15M PRN IV DECREASED GLUCOSE; Start 12/21/16 at 17:30 Dextrose (D50w Syringe) 50 ml Q15M PRN IV DECREASED GLUCOSE; Start 12/21/16 at 17:30 Glucagon (Glucagen) 1 mg Q15M PRN IM DECREASED GLUCOSE; Start 12/21/16 at 17:30 Glucose (Glutose) 15 gm Q15M PRN BUCCAL DECREASED GLUCOSE; Start 12/21/16 at 17 :30 Amlodipine Besylate (Norvasc) 5 mg BID PO Last administered on 01/18/17 20:14 ; Admin Dose 5 MG; Start 12/27/16 at 21:00 Acetaminophen/ Hydrocodone Bitart ([place] (5/325)) 1 tab Q4H PRN PO pain Last administered on 01/18/17 00:01; Admin Dose 1 TAB; Start 01/08/17 at 14:30 Cyanocobalamin (Vitamin B12 Inj) 1,000 mcg DAILY IM Last administered on 09:00; Admin Dose 1,000 MCG; Start 01/10/17 at 14:00 IV Flush (NS 10 ml) 10 ml PRN PRN IV IV PROTOCOL; Start 01/11/17 at 16:00 Haloperidol (Haldol) 5 mg Q4 PRN IM Anxiety Last administered on 01/15/17 13: 37; Admin Dose 5 MG; Start 01/12/17 at 20:00 Quetiapine Fumarate 50 mg 50 mg BID PO Last administered on 01/19/17 09:05; Admin Dose 50 MG; Start 01/15/17 at 21:00 Meropenem (Merrem 500 Mg/ 100 ml (Pmx)) 100 ml @ 200 mls/hr Q24H IVPB Last administered on 01/18/17 20:16; Admin Dose 200 MLS/HR; Start 01/15/17 at 21:00 Miscellaneous Information (*Rx Drug Level Order Reminder*) VANCOMYCIN RANDOM ON 01/06... ONCE ONCE XX ; Start 01/20/17 at 05:00; Stop 01/20/17 at 05:01 MADELYN MIRANDA MD Jan 19, 2017 18:09
[2017-01-19] MEDS: MEROPENEM 500 MG/100 ML (PMX) 100 ML IVPB SCH (20:10)
[2017-01-19] MEDS: EPOETIN 3000 UNITS/1 ML INJ (ESRD) SC SCH (20:16)
[2017-01-20 06:05] LABS: CALCIUM 8.3 mg/dl (8.4-10.2); CREATININE 3.85 mg/dl (0.61-1.24); POTASSIUM 3.6 mmol/L (3.5-5.1)
[2017-01-20 07:55] VITALS: BP 136/72; RESP 18
[2017-01-20] MEDS: POLYETHYLENE GLYCOL 17 GM PACKET PO SCH ×2 (09:22→21:00)
[2017-01-20] MEDS: FAMOTIDINE 20 MG TAB PO SCH (09:22)
[2017-01-20] MEDS: QUETIAPINE 25 MG TAB PO SCH ×2 (09:23→21:00)
[2017-01-20] MEDS: AMLODIPINE 5 MG TAB PO SCH ×2 (09:25→21:00)
[2017-01-20] MEDS: METOPROLOL 50 MG TAB PO SCH ×2 (09:25→21:00)
[2017-01-20] MEDS: HEPARIN 5,000 UNIT/0.5 ML VIAL SC SCH ×2 (09:27→21:00)
[2017-01-20] MEDS: CYANOCOBALAMIN 1000 MCG INJ IM SCH (09:29)
--- NOTE | 2017-01-20 11:59 | PN ---
DATE: 01/20/2017 INTERNAL MEDICINE FOLLOWUP SUBJECTIVE: Chart reviewed. Events noted. Patient had dialysis done yesterday. The patient refus ed the CT-guided tunneled catheter placement yesterday. The patient is scheduled for a Perm-A-Cath placement today; however, was still awaiting consent from family and the patient. At present, zulema lawson is lying in bed and appears comfortable, in no distress. PHYSICAL EXAMINATION: VITAL SIGNS: Blood pressure 136/72, pulse 76, respiration 18, temperature 98.6, saturating 96% on r oom air. HEENT: Pupils are equal and reactive to light. Anicteric sclerae. NECK: Supple, no JVD noted, no cervical adenopathy, there are no carotid bruits heard. LUNGS: Fair breath sounds bilaterally. CARDIOVASCULAR: S1, S2 normal. ABDOMEN: Soft, nontender. No organomegaly or masses noted. EXTREMITIES: No clubbing or cyanosis noted. NEUROLOGICAL: Awake. LABORATORY DATA: Sodium 141, potassium 3.6, chloride 106, CO2 29, BUN 19, creatinine 3.85, glucose 84. IMPRESSION: 1. Acute renal failure on chronic kidney disease. The patient is status post hemodialysis yesterda y. 2. T11 and T12 osteomyelitis and diskitis. 3. Chronic kidney disease secondary to hypertensive nephrosclerosis. 4. History of hypertension. 5. History of gout. 6. History of hyperlipidemia. 7. Chronic atrial fibrillation. 8. History of alcohol abuse. 9. Thrombocytopenia. 10. Status post sepsis due to urinary tract infection. 11. Moderate pleural effusion, status post thoracentesis on 12/31/2016. PLAN: 1. Check CBC. 2. Proceed with PermCath placement once consent is obtained. 3. Hemodialysis per nephrology. 4. Continue antibiotics. 5. Follow up labs tomorrow. 6. Discussed with RN in detail. Dictated By: VALDEMAR ERICKSON MD, MA/RIKA Conf#: [id number] DID#: [id number]
[2017-01-20] MEDS ORDERED: VANCOMYCIN 1.5 GM in SOD CHLORIDE 0.9% 250 ML IVPB SCH (12:30)
--- NOTE | 2017-01-20 15:35 | CONS ---
Date/Time of Note Date/Time of Note DATE: 01/20/17 TIME: 15:34 Assessment/Plan Assessment/Plan Additional Assessment/Plan Acute kidney injury with intermittent hemodialysis Preserved ejection fraction Status post fall Vertebral osteomyelitis Sepsis with bacteremia Paroxysmal atrial fibrillation, currently sinus rhythm History of hypertension Recent UTI Alcohol abuse -Blood pressure trend overall remains stable. Fluid management via hemodialysis as per our nephrology colleagues. No new cardiac orders at the current time Consultation Date/Type/Reason Admit Date/Time December 10, 2016 at 16:57 Type of Consultation: cv Referring Provider: NETTA SALOMON MD 24 HR Interval Summary Free Text/Dictation Denies shortness of breath Exam/Review of Systems Vital Signs Vitals Vital Signs Date Time Temp Pulse Resp B/P Pulse Ox O2 Delivery O2 Flow Rate FiO2 01/20/17 07:55 98.6 76 18 136/72 96 Intake and Output 01/19/17 01/19/17 01/20/17 15:00 23:00 07:00 Intake Total 500 ml 560 ml 440 ml Output Total 2000 ml Balance -1500 ml 560 ml 440 ml Exam Awake, no apparent distress Head: normocephalic Respiratory: other (Coarse breath sounds bilaterally, no wheezing) Cardiovascular: other (S1-S2 heard), regular rate and rhythm Gastrointestinal: bowel sounds, non-tender, soft Extremities: other (No edema) Results Result Diagram: 01/17/17 0900 01/20/17 0427 Results 24 hrs Laboratory Tests Test 01/20/17 04:27 Sodium Level 141 Potassium Level 3.6 Chloride Level 106 Carbon Dioxide Level 29 Anion Gap 10 Blood Urea Nitrogen 19 # Creatinine 3.85 #H Glucose Level 84 Calcium Level 8.3 L Random Vancomycin Level 9.8 Medications Medications Current Medications Ondansetron HCl (Zofran Inj) 4 mg Q6H PRN IV NAUSEA AND/OR VOMITING Last administered on 12/24/16 12:08; Admin Dose 4 MG; Start 12/10/16 at 18:00 Magnesium Hydroxide (Milk Of Mag) 30 ml DAILY PRN PO CONSTIPATION Last administered on 12/29/16 08:56; Admin Dose 30 ML; Start 12/10/16 at 18:00 Bisacodyl (Dulcolax) 5 mg DAILY PRN PO CONSTIPATION; Start 12/10/16 at 18:00 Famotidine (Pepcid) 20 mg DAILY PO Last administered on 01/20/17 09:22; Admin Dose 20 MG; Start 12/11/16 at 09:00 Atorvastatin Calcium (Lipitor) 10 mg DAILY@21 PO Last administered on 01/14/17 21:49; Admin Dose 10 MG; Start 12/10/16 at 21:00; Status Future Hold Heparin Sodium (Porcine) (Heparin (5000 Units/0.5 ml)) 5,000 unit BID SC Last administered on 01/20/17 09:27; Admin Dose 5,000 UNIT; Start 12/11/16 at 21:00; Status Future hold Metoprolol Tartrate (Lopressor) 50 mg BID PO Last administered on 01/20/17 09: 25; Admin Dose 50 MG; Start 12/17/16 at 21:00 Polyethylene Glycol (Miralax) 17 gm BID PO Last administered on 01/20/17 09:22 ; Admin Dose 17 GM; Start 12/21/16 at 21:00 Miscellaneous Information 1 ea NOTE XX ; Start 12/21/16 at 17:30 Glucose (Glutose) 15 gm Q15M PRN PO DECREASED GLUCOSE; Start 12/21/16 at 17:30 Glucose (Glutose) 22.5 gm Q15M PRN PO DECREASED GLUCOSE; Start 12/21/16 at 17: 30 Dextrose (D50w Syringe) 25 ml Q15M PRN IV DECREASED GLUCOSE; Start 12/21/16 at 17:30 Dextrose (D50w Syringe) 50 ml Q15M PRN IV DECREASED GLUCOSE; Start 12/21/16 at 17:30 Glucagon (Glucagen) 1 mg Q15M PRN IM DECREASED GLUCOSE; Start 12/21/16 at 17:30 Glucose (Glutose) 15 gm Q15M PRN BUCCAL DECREASED GLUCOSE; Start 12/21/16 at 17 :30 Amlodipine Besylate (Norvasc) 5 mg BID PO Last administered on 01/20/17 09:25 ; Admin Dose 5 MG; Start 12/27/16 at 21:00 Acetaminophen/ Hydrocodone Bitart ([place] (5/325)) 1 tab Q4H PRN PO pain Last administered on 01/18/17 00:01; Admin Dose 1 TAB; Start 01/08/17 at 14:30 Cyanocobalamin (Vitamin B12 Inj) 1,000 mcg DAILY IM Last administered on 09:29; Admin Dose 1,000 MCG; Start 01/10/17 at 14:00 IV Flush (NS 10 ml) 10 ml PRN PRN IV IV PROTOCOL; Start 01/11/17 at 16:00 Haloperidol (Haldol) 5 mg Q4 PRN IM Anxiety Last administered on 01/15/17 13: 37; Admin Dose 5 MG; Start 01/12/17 at 20:00 Quetiapine Fumarate 50 mg 50 mg BID PO Last administered on 01/20/17 09:23; Admin Dose 50 MG; Start 01/15/17 at 21:00 Meropenem 100 ml @ 200 mls/hr Q24H IVPB Last administered on 01/19/17 20:10; Admin Dose 200 MLS/HR; Start 01/15/17 at 21:00 Vancomycin HCl/ Sodium Chloride (Vancocin/NS) 250 ml @ 83.333 mls/ hr ONCE IVPB Last administered on 01/20/17 15:28; Admin Dose 83.333 MLS/HR; Start at 12:30; Stop 01/20/17 at 18:00 Zeyad Kelly DO Jan 20, 2017 15:35
--- NOTE | 2017-01-20 17:30 | CONS ---
Date/Time of Note Date/Time of Note DATE: 01/20/17 TIME: 17:29 Assessment/Plan Assessment/Plan Additional Assessment/Plan 1. Acute kidney injury on CKD progressing worsening- pt had a HD on 12/29 and - then HD catheter has been discontinued - makign good urine, but BUn/Cr slowly rising, 2. 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 Possible history of chronic kidney disease secondary to hypertensive nephrosclerosis. 5. History of hypertension. 6. History of gout. 7. History of hyperlipidemia. 8. Atrial fibrillation, rate controlled. 9. History of alcohol abuse. 10. Thrombocytopenia secondary to alcohol abuse. 11. sepsis due to UTI and bacteremia with Blood cx and urine Cx growing proteus - follow up blood cx negative 12. Moderate pleural effusion s/p Throacentesis 12/31/2016- 2.21 L Fluid removed PLAN: started on HD again due to persistent uremia and encephalopathy currently has danielle HD catheter- did not work well with Dialysis today- need to have changed to permacath for [facility] HD access- discussed with about it- awaiting permacath placement S/p Neurosurgeon evaluation - possible OM of spine on IV abx, ID following HD tomorrow will follow up Consultation Date/Type/Reason Admit Date/Time December 10, 2016 at 16:57 Type of Consultation: cv Referring Provider: NETTA SALOMON MD Exam/Review of Systems Vital Signs Vitals Vital Signs Date Time Temp Pulse Resp B/P Pulse Ox O2 Delivery O2 Flow Rate FiO2 01/20/17 07:55 98.6 76 18 136/72 96 Intake and Output 01/19/17 01/19/17 01/20/17 15:00 23:00 07:00 Intake Total 500 ml 560 ml 440 ml Output Total 2000 ml Balance -1500 ml 560 ml 440 ml Results Result Diagram: 01/17/17 0900 01/20/17 0427 Results 24 hrs Laboratory Tests Test 01/20/17 04:27 Sodium Level 141 Potassium Level 3.6 Chloride Level 106 Carbon Dioxide Level 29 Anion Gap 10 Blood Urea Nitrogen 19 # Creatinine 3.85 #H Glucose Level 84 Calcium Level 8.3 L Random Vancomycin Level 9.8 Medications Medications Current Medications Ondansetron HCl (Zofran Inj) 4 mg Q6H PRN IV NAUSEA AND/OR VOMITING Last administered on 12/24/16 12:08; Admin Dose 4 MG; Start 12/10/16 at 18:00 Magnesium Hydroxide (Milk Of Mag) 30 ml DAILY PRN PO CONSTIPATION Last administered on 12/29/16 08:56; Admin Dose 30 ML; Start 12/10/16 at 18:00 Bisacodyl (Dulcolax) 5 mg DAILY PRN PO CONSTIPATION; Start 12/10/16 at 18:00 Famotidine (Pepcid) 20 mg DAILY PO Last administered on 01/20/17 09:22; Admin Dose 20 MG; Start 12/11/16 at 09:00 Atorvastatin Calcium (Lipitor) 10 mg DAILY@21 PO Last administered on 01/14/17 21:49; Admin Dose 10 MG; Start 12/10/16 at 21:00; Status Future Hold Heparin Sodium (Porcine) (Heparin (5000 Units/0.5 ml)) 5,000 unit BID SC Last administered on 01/20/17 09:27; Admin Dose 5,000 UNIT; Start 12/11/16 at 21:00; Status Future hold Metoprolol Tartrate (Lopressor) 50 mg BID PO Last administered on 01/20/17 09: 25; Admin Dose 50 MG; Start 12/17/16 at 21:00 Polyethylene Glycol (Miralax) 17 gm BID PO Last administered on 01/20/17 09:22 ; Admin Dose 17 GM; Start 12/21/16 at 21:00 Miscellaneous Information 1 ea NOTE XX ; Start 12/21/16 at 17:30 Glucose (Glutose) 15 gm Q15M PRN PO DECREASED GLUCOSE; Start 12/21/16 at 17:30 Glucose (Glutose) 22.5 gm Q15M PRN PO DECREASED GLUCOSE; Start 12/21/16 at 17: 30 Dextrose (D50w Syringe) 25 ml Q15M PRN IV DECREASED GLUCOSE; Start 12/21/16 at 17:30 Dextrose (D50w Syringe) 50 ml Q15M PRN IV DECREASED GLUCOSE; Start 12/21/16 at 17:30 Glucagon (Glucagen) 1 mg Q15M PRN IM DECREASED GLUCOSE; Start 12/21/16 at 17:30 Glucose (Glutose) 15 gm Q15M PRN BUCCAL DECREASED GLUCOSE; Start 12/21/16 at 17 :30 Amlodipine Besylate (Norvasc) 5 mg BID PO Last administered on 01/20/17 09:25 ; Admin Dose 5 MG; Start 12/27/16 at 21:00 Acetaminophen/ Hydrocodone Bitart ([place] (5/325)) 1 tab Q4H PRN PO pain Last administered on 01/18/17 00:01; Admin Dose 1 TAB; Start 01/08/17 at 14:30 Cyanocobalamin (Vitamin B12 Inj) 1,000 mcg DAILY IM Last administered on 09:29; Admin Dose 1,000 MCG; Start 01/10/17 at 14:00 IV Flush (NS 10 ml) 10 ml PRN PRN IV IV PROTOCOL; Start 01/11/17 at 16:00 Haloperidol (Haldol) 5 mg Q4 PRN IM Anxiety Last administered on 01/15/17 13: 37; Admin Dose 5 MG; Start 01/12/17 at 20:00 Quetiapine Fumarate 50 mg 50 mg BID PO Last administered on 01/20/17 09:23; Admin Dose 50 MG; Start 01/15/17 at 21:00 Meropenem 100 ml @ 200 mls/hr Q24H IVPB Last administered on 01/19/17 20:10; Admin Dose 200 MLS/HR; Start 01/15/17 at 21:00 Vancomycin HCl/ Sodium Chloride (Vancocin/NS) 250 ml @ 83.333 mls/ hr ONCE IVPB Last administered on 01/20/17 15:28; Admin Dose 83.333 MLS/HR; Start at 12:30; Stop 01/20/17 at 18:00 MADELYN MIRANDA MD Jan 20, 2017 17:30
[2017-01-20 20:01] VITALS: BP 113/58; RESP 17
--- NOTE | 2017-01-20 21:03 | CONS ---
Date/Time of Note Date/Time of Note DATE: 01/20/17 TIME: 21:01 Assessment/Plan Assessment/Plan Chief Complaint/Hosp Course SUBJECTIVE: No events per report overnight. No fevers. Awake, looks comfortable, trying to eat childers while being flat in bed. MICROBIOLOGY: Blood cultures are negative. ANTIMICROBIALS: Vancomycin, Merrem. INDWELLINGS: Femoral Norris placed on 01/13/2017 and PICC line placed on 01/11. PHYSICAL EXAMINATION: GENERAL: This is well-developed, chronically ill-appearing, elderly man who is in no distress. HEENT: Head atraumatic, normocephalic. Sclerae anicteric. Buccal mucosa dry. NECK: Supple. CHEST: Rise symmetrical. Breath sounds diminished to bases. HEART: S1, S2. ABDOMEN: Soft. Bowel tones present. EXTREMITIES: No cyanosis. ASSESSMENT: 1. 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 2. Status post Proteus mirabilis urinary tract infection with bacteremia. 3. Status post pneumonia. 4. Pleural effusion. 5. Acute on chronic kidney disease, hemodialysis dependent. 6. Atrial fibrillation. 7. History of ETOH abuse. 8. ALLERGY TO PENICILLIN. PLAN: The patient remains stable. Continue broad spectrum coverage. Consider IR needle aspiration with bx, will require long-term IV antibiotics for 6 to 8 weeks with repeat MRI and ortho re-evaluation prior discontinuation of therapy. DW staff Problems: Consultation Date/Type/Reason Admit Date/Time December 10, 2016 at 16:57 Type of Consultation: ID Referring Provider: NETTA SALOMON MD Exam/Review of Systems Vital Signs Vitals Vital Signs Date Time Temp Pulse Resp B/P Pulse Ox O2 Delivery O2 Flow Rate FiO2 01/20/17 20:01 97.2 67 17 113/58 96 Intake and Output 01/19/17 01/19/17 01/20/17 15:00 23:00 07:00 Intake Total 500 ml 560 ml 440 ml Output Total 2000 ml Balance -1500 ml 560 ml 440 ml Results Result Diagram: 01/17/17 0900 01/20/17 0427 Results 24 hrs Laboratory Tests Test 01/20/17 04:27 Sodium Level 141 Potassium Level 3.6 Chloride Level 106 Carbon Dioxide Level 29 Anion Gap 10 Blood Urea Nitrogen 19 # Creatinine 3.85 #H Glucose Level 84 Calcium Level 8.3 L Random Vancomycin Level 9.8 Medications Medications Current Medications Ondansetron HCl (Zofran Inj) 4 mg Q6H PRN IV NAUSEA AND/OR VOMITING Last administered on 12/24/16 12:08; Admin Dose 4 MG; Start 12/10/16 at 18:00 Magnesium Hydroxide (Milk Of Mag) 30 ml DAILY PRN PO CONSTIPATION Last administered on 12/29/16 08:56; Admin Dose 30 ML; Start 12/10/16 at 18:00 Bisacodyl (Dulcolax) 5 mg DAILY PRN PO CONSTIPATION; Start 12/10/16 at 18:00 Famotidine (Pepcid) 20 mg DAILY PO Last administered on 01/20/17 09:22; Admin Dose 20 MG; Start 12/11/16 at 09:00 Atorvastatin Calcium (Lipitor) 10 mg DAILY@21 PO Last administered on 01/14/17 21:49; Admin Dose 10 MG; Start 12/10/16 at 21:00; Status Future Hold Heparin Sodium (Porcine) (Heparin (5000 Units/0.5 ml)) 5,000 unit BID SC Last administered on 01/20/17 09:27; Admin Dose 5,000 UNIT; Start 12/11/16 at 21:00; Status Future hold Metoprolol Tartrate (Lopressor) 50 mg BID PO Last administered on 01/20/17 09: 25; Admin Dose 50 MG; Start 12/17/16 at 21:00 Polyethylene Glycol (Miralax) 17 gm BID PO Last administered on 01/20/17 09:22 ; Admin Dose 17 GM; Start 12/21/16 at 21:00 Miscellaneous Information 1 ea NOTE XX ; Start 12/21/16 at 17:30 Glucose (Glutose) 15 gm Q15M PRN PO DECREASED GLUCOSE; Start 12/21/16 at 17:30 Glucose (Glutose) 22.5 gm Q15M PRN PO DECREASED GLUCOSE; Start 12/21/16 at 17: 30 Dextrose (D50w Syringe) 25 ml Q15M PRN IV DECREASED GLUCOSE; Start 12/21/16 at 17:30 Dextrose (D50w Syringe) 50 ml Q15M PRN IV DECREASED GLUCOSE; Start 12/21/16 at 17:30 Glucagon (Glucagen) 1 mg Q15M PRN IM DECREASED GLUCOSE; Start 12/21/16 at 17:30 Glucose (Glutose) 15 gm Q15M PRN BUCCAL DECREASED GLUCOSE; Start 12/21/16 at 17 :30 Amlodipine Besylate (Norvasc) 5 mg BID PO Last administered on 01/20/17 09:25 ; Admin Dose 5 MG; Start 12/27/16 at 21:00 Acetaminophen/ Hydrocodone Bitart ([place] (5/325)) 1 tab Q4H PRN PO pain Last administered on 01/18/17 00:01; Admin Dose 1 TAB; Start 01/08/17 at 14:30 Cyanocobalamin (Vitamin B12 Inj) 1,000 mcg DAILY IM Last administered on 09:29; Admin Dose 1,000 MCG; Start 01/10/17 at 14:00 IV Flush (NS 10 ml) 10 ml PRN PRN IV IV PROTOCOL; Start 01/11/17 at 16:00 Haloperidol (Haldol) 5 mg Q4 PRN IM Anxiety Last administered on 01/15/17 13: 37; Admin Dose 5 MG; Start 01/12/17 at 20:00 Quetiapine Fumarate 50 mg 50 mg BID PO Last administered on 01/20/17 09:23; Admin Dose 50 MG; Start 01/15/17 at 21:00 Meropenem (Merrem 500 Mg/ 100 ml (Pmx)) 100 ml @ 200 mls/hr Q24H IVPB Last administered on 01/19/17 20:10; Admin Dose 200 MLS/HR; Start 01/15/17 at 21:00 CHERRIE JAUREGUI NP Jan 20, 2017 21:02
[2017-01-20] MEDS: MEROPENEM 500 MG/100 ML (PMX) 100 ML IVPB SCH (21:18)
[2017-01-21] VITALS (9 sets, daily range): BP systolic 102–132; BP diastolic 51–63; PULSE 77–81; RESP 16–18
[2017-01-21 07:12] LABS: CALCIUM 8.9 mg/dl (8.4-10.2); CREATININE 4.51 mg/dl (0.61-1.24); POTASSIUM 3.3 mmol/L (3.5-5.1)
[2017-01-21] MEDS: METOPROLOL 50 MG TAB PO SCH ×2 (09:00→20:34)
[2017-01-21] MEDS: HEPARIN 5,000 UNIT/0.5 ML VIAL SC SCH ×2 (09:00→20:43)
[2017-01-21] MEDS: CYANOCOBALAMIN 1000 MCG INJ IM SCH (09:00)
[2017-01-21] MEDS: FAMOTIDINE 20 MG TAB PO SCH (09:00)
[2017-01-21] MEDS: AMLODIPINE 5 MG TAB PO SCH ×2 (09:00→20:35)
[2017-01-21] MEDS: POLYETHYLENE GLYCOL 17 GM PACKET PO SCH ×2 (09:00→20:35)
[2017-01-21] MEDS: QUETIAPINE 25 MG TAB PO SCH ×2 (09:00→20:31)
--- NOTE | 2017-01-21 09:11 | PN ---
Date/Time of Note Date/Time of Note DATE: 01/21/17 TIME: 09:02 Assessment/Plan VTE Prophylaxis VTE Prophylaxis Intervention: heparin Lines/Catheters IV [facility] AKILAH CATH Urinary Cath still in place: No Assessment/Plan Chief Complaint/Hosp Course Assessment/Plan: 71 yo M presented with sepsis 2/2 proteus from source. Hospital course complicated by HCAP sp abx, acute on chronic back pain (imaging with spinal stenosis), osteo and diskitis. 1. Status post sepsis UTI with Proteus mirabilis. improved. ABX per ID for # 2. 2. T11-T12 osteomyelitis and diskitis. - cont abx per ID. - no surgical intervention at this time per neuro surgeon - per ID - Consider IR needle aspiration with bx, will require long-term IV antibiotics for 6 to 8 weeks with repeat MRI and ortho re-evaluation prior discontinuation of therapy. 3. CKD. Plan for permacath placement for HD, and continue HD per renal rec's ( 3x/wk) 4. Essential hypertension. Continue antihypertensives and adjust as needed 5. History of alcohol abuse. Cessation was advised. 6. History of atrial fibrillation. Stable at present. Continue on beta- anjelica and amiodarone 7. Urinary retention. On Mccormack catheter per urology recommendations DVT [place]: SCDs and heparin Disposition and plan: Plan for permacath placement. Check CXR x 1 today as well. Problems: Subjective 24 Hr Interval Summary Free Text/Dictation Pt getting HD this AM. Awaiting perm cath placement for later today. On IV abx. Exam/Review of Systems Vital Signs Vitals Vital Signs Date Time Temp Pulse Resp B/P Pulse Ox O2 Delivery O2 Flow Rate FiO2 01/21/17 07:05 98.0 73 16 128/62 100 Intake and Output 01/20/17 01/20/17 01/21/17 14:59 22:59 06:59 Intake Total 750 ml Output Total 1000 ml 500 ml Balance -250 ml -500 ml Exam HEENT: Pupils are equal and reactive to light. Anicteric sclerae. NECK: Supple, no JVD noted, no cervical adenopathy, there are no carotid bruits heard. LUNGS: Fair breath sounds bilaterally. CARDIOVASCULAR: S1, S2 normal. ABDOMEN: Soft, nontender. No organomegaly or masses noted. EXTREMITIES: No clubbing or cyanosis noted. NEUROLOGICAL: Awake. Results Result Diagram: 01/17/17 0900 01/21/17 0535 Results 24 hrs Laboratory Tests Test 01/21/17 05:35 Sodium Level 143 Potassium Level 3.3 L Chloride Level 108 Carbon Dioxide Level 26 Anion Gap 12 Blood Urea Nitrogen 20 Creatinine 4.51 H Glucose Level 89 Calcium Level 8.9 Medications Medications Current Medications Ondansetron HCl (Zofran Inj) 4 mg Q6H PRN IV NAUSEA AND/OR VOMITING Last administered on 12/24/16 12:08; Admin Dose 4 MG; Start 12/10/16 at 18:00 Magnesium Hydroxide (Milk Of Mag) 30 ml DAILY PRN PO CONSTIPATION Last administered on 12/29/16 08:56; Admin Dose 30 ML; Start 12/10/16 at 18:00 Bisacodyl (Dulcolax) 5 mg DAILY PRN PO CONSTIPATION; Start 12/10/16 at 18:00 Famotidine (Pepcid) 20 mg DAILY PO Last administered on 01/20/17 09:22; Admin Dose 20 MG; Start 12/11/16 at 09:00 Atorvastatin Calcium (Lipitor) 10 mg DAILY@21 PO Last administered on 01/14/17 21:49; Admin Dose 10 MG; Start 12/10/16 at 21:00; Status Future Hold Heparin Sodium (Porcine) (Heparin (5000 Units/0.5 ml)) 5,000 unit BID SC Last administered on 01/20/17 09:27; Admin Dose 5,000 UNIT; Start 12/11/16 at 21:00; Status Future hold Metoprolol Tartrate (Lopressor) 50 mg BID PO Last administered on 01/20/17 09: 25; Admin Dose 50 MG; Start 12/17/16 at 21:00 Polyethylene Glycol (Miralax) 17 gm BID PO Last administered on 01/20/17 09:22 ; Admin Dose 17 GM; Start 12/21/16 at 21:00 Miscellaneous Information 1 ea NOTE XX ; Start 12/21/16 at 17:30 Glucose (Glutose) 15 gm Q15M PRN PO DECREASED GLUCOSE; Start 12/21/16 at 17:30 Glucose (Glutose) 22.5 gm Q15M PRN PO DECREASED GLUCOSE; Start 12/21/16 at 17: 30 Dextrose (D50w Syringe) 25 ml Q15M PRN IV DECREASED GLUCOSE; Start 12/21/16 at 17:30 Dextrose (D50w Syringe) 50 ml Q15M PRN IV DECREASED GLUCOSE; Start 12/21/16 at 17:30 Glucagon (Glucagen) 1 mg Q15M PRN IM DECREASED GLUCOSE; Start 12/21/16 at 17:30 Glucose (Glutose) 15 gm Q15M PRN BUCCAL DECREASED GLUCOSE; Start 12/21/16 at 17 :30 Amlodipine Besylate (Norvasc) 5 mg BID PO Last administered on 01/20/17 09:25 ; Admin Dose 5 MG; Start 12/27/16 at 21:00 Acetaminophen/ Hydrocodone Bitart ([place] (5/325)) 1 tab Q4H PRN PO pain Last administered on 01/18/17 00:01; Admin Dose 1 TAB; Start 01/08/17 at 14:30 Cyanocobalamin (Vitamin B12 Inj) 1,000 mcg DAILY IM Last administered on 09:29; Admin Dose 1,000 MCG; Start 01/10/17 at 14:00 IV Flush (NS 10 ml) 10 ml PRN PRN IV IV PROTOCOL; Start 01/11/17 at 16:00 Haloperidol (Haldol) 5 mg Q4 PRN IM Anxiety Last administered on 01/15/17 13: 37; Admin Dose 5 MG; Start 01/12/17 at 20:00 Quetiapine Fumarate 50 mg 50 mg BID PO Last administered on 01/20/17 09:23; Admin Dose 50 MG; Start 01/15/17 at 21:00 Meropenem (Merrem 500 Mg/ 100 ml (Pmx)) 100 ml @ 200 mls/hr Q24H IVPB Last administered on 01/20/17 21:18; Admin Dose 200 MLS/HR; Start 01/15/17 at 21:00 HAVEN SANDOVAL 16, 2017 09:11
--- NOTE | 2017-01-21 13:20 | CONS ---
Date/Time of Note Date/Time of Note DATE: 01/21/17 TIME: 13:18 Assessment/Plan Assessment/Plan Additional Assessment/Plan Acute kidney injury with intermittent hemodialysis Preserved ejection fraction Status post fall Vertebral osteomyelitis Sepsis with bacteremia Paroxysmal atrial fibrillation, currently sinus rhythm History of hypertension Recent UTI Alcohol abuse -Blood pressure trend overall remains stable. Fluid management via hemodialysis as per our nephrology colleagues. Consultation Date/Type/Reason Admit Date/Time December 10, 2016 at 16:57 Type of Consultation: cv Referring Provider: NETTA SALOMON MD 24 HR Interval Summary Free Text/Dictation Patient denies shortness of breath, chest pain or palpitations Exam/Review of Systems Vital Signs Vitals Vital Signs Date Time Temp Pulse Resp B/P Pulse Ox O2 Delivery O2 Flow Rate FiO2 01/21/17 10:40 79 01/21/17 10:40 18 01/21/17 07:05 98.0 128/62 100 Intake and Output 01/20/17 01/20/17 01/21/17 15:00 23:00 07:00 Intake Total 750 ml Output Total 1000 ml 500 ml Balance -250 ml -500 ml Exam No apparent distress Constitutional: alert, oriented Head: normocephalic Neck: supple Respiratory: other (Coarse breath sounds bilaterally, no wheezing) Cardiovascular: other (S1-S2 heard), regular rate and rhythm Gastrointestinal: bowel sounds, non-tender, soft Extremities: other (No edema) Results Result Diagram: 01/17/17 0900 01/21/17 0535 Results 24 hrs Laboratory Tests Test 01/21/17 05:35 Sodium Level 143 Potassium Level 3.3 L Chloride Level 108 Carbon Dioxide Level 26 Anion Gap 12 Blood Urea Nitrogen 20 Creatinine 4.51 H Glucose Level 89 Calcium Level 8.9 Medications Medications Current Medications Ondansetron HCl (Zofran Inj) 4 mg Q6H PRN IV NAUSEA AND/OR VOMITING Last administered on 12/24/16 12:08; Admin Dose 4 MG; Start 12/10/16 at 18:00 Magnesium Hydroxide (Milk Of Mag) 30 ml DAILY PRN PO CONSTIPATION Last administered on 12/29/16 08:56; Admin Dose 30 ML; Start 12/10/16 at 18:00 Bisacodyl (Dulcolax) 5 mg DAILY PRN PO CONSTIPATION; Start 12/10/16 at 18:00 Famotidine (Pepcid) 20 mg DAILY PO Last administered on 01/20/17 09:22; Admin Dose 20 MG; Start 12/11/16 at 09:00 Atorvastatin Calcium (Lipitor) 10 mg DAILY@21 PO Last administered on 01/14/17 21:49; Admin Dose 10 MG; Start 12/10/16 at 21:00; Status Future Hold Heparin Sodium (Porcine) (Heparin (5000 Units/0.5 ml)) 5,000 unit BID SC Last administered on 01/20/17 09:27; Admin Dose 5,000 UNIT; Start 12/11/16 at 21:00; Status Future hold Metoprolol Tartrate (Lopressor) 50 mg BID PO Last administered on 01/20/17 09: 25; Admin Dose 50 MG; Start 12/17/16 at 21:00 Polyethylene Glycol (Miralax) 17 gm BID PO Last administered on 01/20/17 09:22 ; Admin Dose 17 GM; Start 12/21/16 at 21:00 Miscellaneous Information 1 ea NOTE XX ; Start 12/21/16 at 17:30 Glucose (Glutose) 15 gm Q15M PRN PO DECREASED GLUCOSE; Start 12/21/16 at 17:30 Glucose (Glutose) 22.5 gm Q15M PRN PO DECREASED GLUCOSE; Start 12/21/16 at 17: 30 Dextrose (D50w Syringe) 25 ml Q15M PRN IV DECREASED GLUCOSE; Start 12/21/16 at 17:30 Dextrose (D50w Syringe) 50 ml Q15M PRN IV DECREASED GLUCOSE; Start 12/21/16 at 17:30 Glucagon (Glucagen) 1 mg Q15M PRN IM DECREASED GLUCOSE; Start 12/21/16 at 17:30 Glucose (Glutose) 15 gm Q15M PRN BUCCAL DECREASED GLUCOSE; Start 12/21/16 at 17 :30 Amlodipine Besylate (Norvasc) 5 mg BID PO Last administered on 01/20/17 09:25 ; Admin Dose 5 MG; Start 12/27/16 at 21:00 Acetaminophen/ Hydrocodone Bitart ([place] (5/325)) 1 tab Q4H PRN PO pain Last administered on 01/18/17 00:01; Admin Dose 1 TAB; Start 01/08/17 at 14:30 Cyanocobalamin (Vitamin B12 Inj) 1,000 mcg DAILY IM Last administered on 09:29; Admin Dose 1,000 MCG; Start 01/10/17 at 14:00 IV Flush (NS 10 ml) 10 ml PRN PRN IV IV PROTOCOL; Start 01/11/17 at 16:00 Haloperidol (Haldol) 5 mg Q4 PRN IM Anxiety Last administered on 01/15/17 13: 37; Admin Dose 5 MG; Start 01/12/17 at 20:00 Quetiapine Fumarate 50 mg 50 mg BID PO Last administered on 01/20/17 09:23; Admin Dose 50 MG; Start 01/15/17 at 21:00 Meropenem (Merrem 500 Mg/ 100 ml (Pmx)) 100 ml @ 200 mls/hr Q24H IVPB Last administered on 01/20/17 21:18; Admin Dose 200 MLS/HR; Start 01/15/17 at 21:00 Zeyad Kelly DO Jan 21, 2017 13:20
--- NOTE | 2017-01-21 16:29 | RADRPT ---
PROCEDURE: XR Chest. CLINICAL INDICATION: Shortness of breath. Follow up right pleural effusion. TECHNIQUE: Single frontal view. COMPARISON: 01/12/2017. FINDINGS: There is mild right basilar atelectasis. The lungs are otherwise clear. The heart size is normal. There is calcification in the aorta consistent with atherosclerosis. The previously noted right pleural effusion is now smaller. There is no left pleural effusion. There is no pneumothorax. IMPRESSION: 1. Mild right basilar atelectasis. 2. Atherosclerosis. 3. Small right pleural effusion, smaller than seen previously. RPTAT: QQ .Trung De Anda MD, MD Date Time Electronically viewed and signed by .Trung De Anda MD, on 01/21/2017 16:28 .R/
[2017-01-21] MEDS: EPOETIN 3000 UNITS/1 ML INJ (ESRD) SC SCH (19:03)
--- NOTE | 2017-01-21 19:07 | CONS ---
Date/Time of Note Date/Time of Note DATE: 01/21/17 TIME: 19:06 Assessment/Plan Assessment/Plan Additional Assessment/Plan 1. Acute kidney injury on CKD progressing worsening- pt had a HD on 12/29 and - then HD catheter has been discontinued - makign good urine, but BUn/Cr slowly rising, 2. 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 Possible history of chronic kidney disease secondary to hypertensive nephrosclerosis. 5. History of hypertension. 6. History of gout. 7. History of hyperlipidemia. 8. Atrial fibrillation, rate controlled. 9. History of alcohol abuse. 10. Thrombocytopenia secondary to alcohol abuse. 11. sepsis due to UTI and bacteremia with Blood cx and urine Cx growing proteus - follow up blood cx negative 12. Moderate pleural effusion s/p Throacentesis 12/31/2016- 2.21 L Fluid removed PLAN: started on HD again due to persistent uremia and encephalopathy s/p HD today, awaiting permacath placement S/p Neurosurgeon evaluation - possible OM of spine on IV abx, ID following will follow up Consultation Date/Type/Reason Admit Date/Time December 10, 2016 at 16:57 Type of Consultation: NEPHROLOGY Referring Provider: NETTA SALOMON MD 24 HR Interval Summary Free Text/Dictation S/p HD today AM, awaiting permacath placement Exam/Review of Systems Vital Signs Vitals Vital Signs Date Time Temp Pulse Resp B/P Pulse Ox O2 Delivery O2 Flow Rate FiO2 01/21/17 10:40 79 01/21/17 10:40 18 01/21/17 07:05 98.0 128/62 100 Intake and Output 01/20/17 01/20/17 01/21/17 15:00 23:00 07:00 Intake Total 750 ml Output Total 1000 ml 500 ml Balance -250 ml -500 ml Results Result Diagram: 01/17/17 0900 01/21/17 0535 Results 24 hrs Laboratory Tests Test 01/21/17 05:35 Sodium Level 143 Potassium Level 3.3 L Chloride Level 108 Carbon Dioxide Level 26 Anion Gap 12 Blood Urea Nitrogen 20 Creatinine 4.51 H Glucose Level 89 Calcium Level 8.9 Medications Medications Current Medications Ondansetron HCl (Zofran Inj) 4 mg Q6H PRN IV NAUSEA AND/OR VOMITING Last administered on 12/24/16t 12:08; Admin Dose 4 MG; Start 12/10/16 at 18:00 Magnesium Hydroxide (Milk Of Mag) 30 ml DAILY PRN PO CONSTIPATION Last administered on 12/29/16 08:56; Admin Dose 30 ML; Start 12/10/16 at 18:00 Bisacodyl (Dulcolax) 5 mg DAILY PRN PO CONSTIPATION; Start 12/10/16 at 18:00 Famotidine (Pepcid) 20 mg DAILY PO Last administered on 01/20/17 09:22; Admin Dose 20 MG; Start 12/11/16 at 09:00 Atorvastatin Calcium (Lipitor) 10 mg DAILY@21 PO Last administered on 01/14/17 21:49; Admin Dose 10 MG; Start 12/10/16 at 21:00; Status Future Hold Heparin Sodium (Porcine) (Heparin (5000 Units/0.5 ml)) 5,000 unit BID SC Last administered on 01/20/17 09:27; Admin Dose 5,000 UNIT; Start 12/11/16 at 21:00; Status Future hold Metoprolol Tartrate (Lopressor) 50 mg BID PO Last administered on 01/20/17 09: 25; Admin Dose 50 MG; Start 12/17/16 at 21:00 Polyethylene Glycol (Miralax) 17 gm BID PO Last administered on 01/20/17 09:22 ; Admin Dose 17 GM; Start 12/21/16 at 21:00 Miscellaneous Information 1 ea NOTE XX ; Start 12/21/16 at 17:30 Glucose (Glutose) 15 gm Q15M PRN PO DECREASED GLUCOSE; Start 12/21/16 at 17:30 Glucose (Glutose) 22.5 gm Q15M PRN PO DECREASED GLUCOSE; Start 12/21/16 at 17: 30 Dextrose (D50w Syringe) 25 ml Q15M PRN IV DECREASED GLUCOSE; Start 12/21/16 at 17:30 Dextrose (D50w Syringe) 50 ml Q15M PRN IV DECREASED GLUCOSE; Start 12/21/16 at 17:30 Glucagon (Glucagen) 1 mg Q15M PRN IM DECREASED GLUCOSE; Start 12/21/16 at 17:30 Glucose (Glutose) 15 gm Q15M PRN BUCCAL DECREASED GLUCOSE; Start 12/21/16 at 17 :30 Amlodipine Besylate (Norvasc) 5 mg BID PO Last administered on 01/20/17 09:25 ; Admin Dose 5 MG; Start 12/27/16 at 21:00 Acetaminophen/ Hydrocodone Bitart ([place] (5/325)) 1 tab Q4H PRN PO pain Last administered on 01/18/17 00:01; Admin Dose 1 TAB; Start 01/08/17 at 14:30 Cyanocobalamin (Vitamin B12 Inj) 1,000 mcg DAILY IM Last administered on 09:29; Admin Dose 1,000 MCG; Start 01/10/17 at 14:00 IV Flush (NS 10 ml) 10 ml PRN PRN IV IV PROTOCOL; Start 01/11/17 at 16:00 Haloperidol (Haldol) 5 mg Q4 PRN IM Anxiety Last administered on 01/15/17 13: 37; Admin Dose 5 MG; Start 01/12/17 at 20:00 Quetiapine Fumarate 50 mg 50 mg BID PO Last administered on 01/20/17 09:23; Admin Dose 50 MG; Start 01/15/17 at 21:00 Meropenem (Merrem 500 Mg/ 100 ml (Pmx)) 100 ml @ 200 mls/hr Q24H IVPB Last administered on 01/20/17 21:18; Admin Dose 200 MLS/HR; Start 01/15/17 at 21:00 MADELYN MIRANDA MD Jan 21, 2017 19:07
[2017-01-21] MEDS: MEROPENEM 500 MG/100 ML (PMX) 100 ML IVPB SCH (20:30)
--- NOTE | 2017-01-21 21:43 | CONS ---
Date/Time of Note Date/Time of Note DATE: 01/21/17 TIME: 21:42 Assessment/Plan Assessment/Plan Chief Complaint/Hosp Course SUBJECTIVE: No events. No fevers. Awake, looks comfortable MICROBIOLOGY: Blood cultures are negative. ANTIMICROBIALS: Vancomycin, Merrem. INDWELLINGS: Femoral Norris placed on 01/13/2017 and PICC line placed on 01/11. PHYSICAL EXAMINATION: GENERAL: This is well-developed, chronically ill-appearing, elderly man who is in no distress. HEENT: Head atraumatic, normocephalic. Sclerae anicteric. Buccal mucosa dry. NECK: Supple. CHEST: Rise symmetrical. Breath sounds diminished to bases. HEART: S1, S2. ABDOMEN: Soft. Bowel tones present. EXTREMITIES: No cyanosis. ASSESSMENT: 1. 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 2. Status post Proteus mirabilis urinary tract infection with bacteremia. 3. Status post pneumonia. 4. Pleural effusion. 5. Acute on chronic kidney disease, hemodialysis dependent. 6. Atrial fibrillation. 7. History of ETOH abuse. 8. ALLERGY TO PENICILLIN. PLAN: The patient remains stable. Continue broad spectrum coverage. Consider IR needle aspiration with bx, will require long-term IV antibiotics for 6 to 8 weeks with repeat MRI and ortho re-evaluation prior discontinuation of therapy. Pending [facility] staff Problems: Consultation Date/Type/Reason Admit Date/Time December 10, 2016 at 16:57 Type of Consultation: ID Referring Provider: NETTA SALOMON MD Exam/Review of Systems Vital Signs Vitals Vital Signs Date Time Temp Pulse Resp B/P Pulse Ox O2 Delivery O2 Flow Rate FiO2 01/21/17 20:38 98.0 74 18 132/60 98 Intake and Output 01/20/17 01/20/17 01/21/17 15:00 23:00 07:00 Intake Total 750 ml Output Total 1000 ml 500 ml Balance -250 ml -500 ml Results Result Diagram: 01/17/17 0900 01/21/17 0535 Results 24 hrs Laboratory Tests Test 01/21/17 05:35 Sodium Level 143 Potassium Level 3.3 L Chloride Level 108 Carbon Dioxide Level 26 Anion Gap 12 Blood Urea Nitrogen 20 Creatinine 4.51 H Glucose Level 89 Calcium Level 8.9 Medications Medications Current Medications Ondansetron HCl (Zofran Inj) 4 mg Q6H PRN IV NAUSEA AND/OR VOMITING Last administered on 12/24/16 12:08; Admin Dose 4 MG; Start 12/10/16 at 18:00 Magnesium Hydroxide (Milk Of Mag) 30 ml DAILY PRN PO CONSTIPATION Last administered on 12/29/16 08:56; Admin Dose 30 ML; Start 12/10/16 at 18:00 Bisacodyl (Dulcolax) 5 mg DAILY PRN PO CONSTIPATION; Start 12/10/16 at 18:00 Famotidine (Pepcid) 20 mg DAILY PO Last administered on 01/20/17 09:22; Admin Dose 20 MG; Start 12/11/16 at 09:00 Atorvastatin Calcium (Lipitor) 10 mg DAILY@21 PO Last administered on 01/14/17 21:49; Admin Dose 10 MG; Start 12/10/16 at 21:00; Status Future Hold Heparin Sodium (Porcine) (Heparin (5000 Units/0.5 ml)) 5,000 unit BID SC Last administered on 01/21/17 20:43; Admin Dose 5,000 UNIT; Start 12/11/16 at 21:00; Status Future hold Metoprolol Tartrate (Lopressor) 50 mg BID PO Last administered on 01/21/17 20: 34; Admin Dose 50 MG; Start 12/17/16 at 21:00 Polyethylene Glycol (Miralax) 17 gm BID PO Last administered on 01/21/17 20:35 ; Admin Dose 17 GM; Start 12/21/16 at 21:00 Miscellaneous Information 1 ea NOTE XX ; Start 12/21/16 at 17:30 Glucose (Glutose) 15 gm Q15M PRN PO DECREASED GLUCOSE; Start 12/21/16 at 17:30 Glucose (Glutose) 22.5 gm Q15M PRN PO DECREASED GLUCOSE; Start 12/21/16 at 17: 30 Dextrose (D50w Syringe) 25 ml Q15M PRN IV DECREASED GLUCOSE; Start 12/21/16 at 17:30 Dextrose (D50w Syringe) 50 ml Q15M PRN IV DECREASED GLUCOSE; Start 12/21/16 at 17:30 Glucagon (Glucagen) 1 mg Q15M PRN IM DECREASED GLUCOSE; Start 12/21/16 at 17:30 Glucose (Glutose) 15 gm Q15M PRN BUCCAL DECREASED GLUCOSE; Start 12/21/16 at 17 :30 Amlodipine Besylate (Norvasc) 5 mg BID PO Last administered on 01/21/17 20:35 ; Admin Dose 5 MG; Start 12/27/16 at 21:00 Acetaminophen/ Hydrocodone Bitart ([place] (5/325)) 1 tab Q4H PRN PO pain Last administered on 01/18/17 00:01; Admin Dose 1 TAB; Start 01/08/17 at 14:30 Cyanocobalamin (Vitamin B12 Inj) 1,000 mcg DAILY IM Last administered on 09:29; Admin Dose 1,000 MCG; Start 01/10/17 at 14:00 IV Flush (NS 10 ml) 10 ml PRN PRN IV IV PROTOCOL; Start 01/11/17 at 16:00 Haloperidol (Haldol) 5 mg Q4 PRN IM Anxiety Last administered on 01/15/17 13: 37; Admin Dose 5 MG; Start 01/12/17 at 20:00 Quetiapine Fumarate 50 mg 50 mg BID PO Last administered on 01/21/17 20:31; Admin Dose 50 MG; Start 01/15/17 at 21:00 Meropenem (Merrem 500 Mg/ 100 ml (Pmx)) 100 ml @ 200 mls/hr Q24H IVPB Last administered on 01/21/17 20:30; Admin Dose 200 MLS/HR; Start 01/15/17 at 21:00 CHERRIE JAUREGUI NP Jan 21, 2017 21:43
[2017-01-22] VITALS (15 sets, daily range): BP systolic 100–137; BP diastolic 45–72; PULSE 64–70; RESP 16–26
--- NOTE | 2017-01-22 06:05 | PN ---
DATE: 01/21/2017 SUBJECTIVE: The patient has urinary retention. He himself does not complain of any pain, and he mo st of the time is quiet and sleeping. He, however, according to the nursing, has been voiding, but his residual this morning was high and he needed to be catheterized. He did refuse the bladder scan . OBJECTIVE: VITAL SIGNS: His temperature is 98.0, pulse is 79, respiration 18, blood pressure is 128/62. ABDOMEN: Soft. There is no tenderness at the present. LABORATORY DATA: CBC from 01/17/2017 showed hemoglobin of 8.3, hematocrit 26.2, and white count 10. 8. BUN is 20, creatinine 4.51. The patient has been on hemodialysis. IMPRESSION: Urinary retention, incomplete bladder emptying. PLAN: To continue monitoring his bladder volume with a bladder scan, and when the bladder volume is over 500 mL, do the straight catheterization on him. The patient has been refusing the bladder sca n sometimes, but eventually, if his bladder is full, he should be catheterized, and he has not refus ed catheterization in the past. Dictated By: LAUREN GIL/RIKA Conf#: [id number] DID#: [id number]
[2017-01-22 07:02] LABS: CALCIUM 8.6 mg/dl (8.4-10.2); CREATININE 3.65 mg/dl (0.61-1.24); POTASSIUM 3.6 mmol/L (3.5-5.1)
--- NOTE | 2017-01-22 07:32 | PN ---
Date/Time of Note Date/Time of Note DATE: 01/22/17 TIME: 07:28 Assessment/Plan VTE Prophylaxis VTE Prophylaxis Intervention: heparin Lines/Catheters [facility] Norris Cath Central line still needed: Yes Urinary Cath still in place: No Assessment/Plan Chief Complaint/Hosp Course Hospital day 43 Problems: (1) Vertebral osteomyelitis, acute Status: Acute Comment: Need the input from neurosurgery regarding physical therapy getting the patient up and around analgesia and especially about interventional radiology. Alternatively infectious disease could give us those orders. (2) Essential hypertension Status: Chronic Comment: Stable on treatment. (3) Hyperlipidemia Status: Chronic Comment: On statin therapy Qualifiers: Hyperlipidemia type: pure hypercholesterolemia Qualified Code: E78.00 - Pure hypercholesterolemia (4) Paroxysmal atrial fibrillation with rapid ventricular response Status: Chronic Comment: Presently in sinus and controlled (5) Acute renal failure (ARF) Status: Acute Comment: His renal failure is not resolving he needs dialysis catheter. Once he has permanent dialysis catheter then we can look at discharge planning for placement to a rehabilitation facility to receive his 8 weeks of IV antibiotics (7 more weeks needed) and rehabilitative care. Qualifiers: Acute renal failure type: unspecified Qualified Code: N17.9 - Acute renal failure, unspecified acute renal failure type Subjective 24 Hr Interval Summary Free Text/Dictation Patient more communicative than 1 week ago. Complains of back pain. Constitutional: no complaints (Denies fevers chills or sweats) Eyes: no complaints Respiratory: no complaints (Denies cough wheezing or shortness of breath) Cardiovascular: no complaints (Denies chest pain palpitations orthopnea lightheadedness PND) Gastrointestinal: no complaints Musculoskeletal: back pain Neurologic: no complaints Exam/Review of Systems Vital Signs Vitals Vital Signs Date Time Temp Pulse Resp B/P Pulse Ox O2 Delivery O2 Flow Rate FiO2 01/21/17 20:38 98.0 74 18 132/60 98 Intake and Output 01/21/17 01/21/17 01/22/17 15:00 23:00 07:00 Intake Total 500 ml 100 ml 240 ml Output Total 1500 ml 300 ml Balance -1000 ml 100 ml -60 ml Exam Constitutional: alert, oriented Neck: non-tender, supple Respiratory: clear to auscultation, normal air movement Cardiovascular: nl pulses, regular rate and rhythm Gastrointestinal: nl liver, spleen, non-tender, soft Results Result Diagram: 01/22/17 0405 Results 24 hrs Laboratory Tests Test 01/22/17 04:05 Sodium Level 144 Potassium Level 3.6 Chloride Level 108 Carbon Dioxide Level 28 Anion Gap 12 Blood Urea Nitrogen 13 Creatinine 3.65 H Glucose Level 81 Calcium Level 8.6 Medications Medications Current Medications Ondansetron HCl (Zofran Inj) 4 mg Q6H PRN IV NAUSEA AND/OR VOMITING Last administered on 12/24/16 12:08; Admin Dose 4 MG; Start 12/10/16 at 18:00 Magnesium Hydroxide (Milk Of Mag) 30 ml DAILY PRN PO CONSTIPATION Last administered on 12/29/16 08:56; Admin Dose 30 ML; Start 12/10/16 at 18:00 Bisacodyl (Dulcolax) 5 mg DAILY PRN PO CONSTIPATION; Start 12/10/16 at 18:00 Famotidine (Pepcid) 20 mg DAILY PO Last administered on 01/20/17 09:22; Admin Dose 20 MG; Start 12/11/16 at 09:00 Atorvastatin Calcium (Lipitor) 10 mg DAILY@21 PO Last administered on 01/14/17 21:49; Admin Dose 10 MG; Start 12/10/16 at 21:00; Status Future Hold Heparin Sodium (Porcine) (Heparin (5000 Units/0.5 ml)) 5,000 unit BID SC Last administered on 01/21/17 20:43; Admin Dose 5,000 UNIT; Start 12/11/16 at 21:00; Status Future hold Metoprolol Tartrate (Lopressor) 50 mg BID PO Last administered on 01/21/17 20: 34; Admin Dose 50 MG; Start 12/17/16 at 21:00 Polyethylene Glycol (Miralax) 17 gm BID PO Last administered on 01/21/17 20:35 ; Admin Dose 17 GM; Start 12/21/16 at 21:00 Miscellaneous Information 1 ea NOTE XX ; Start 12/21/16 at 17:30 Glucose (Glutose) 15 gm Q15M PRN PO DECREASED GLUCOSE; Start 12/21/16 at 17:30 Glucose (Glutose) 22.5 gm Q15M PRN PO DECREASED GLUCOSE; Start 12/21/16 at 17: 30 Dextrose (D50w Syringe) 25 ml Q15M PRN IV DECREASED GLUCOSE; Start 12/21/16 at 17:30 Dextrose (D50w Syringe) 50 ml Q15M PRN IV DECREASED GLUCOSE; Start 12/21/16 at 17:30 Glucagon (Glucagen) 1 mg Q15M PRN IM DECREASED GLUCOSE; Start 12/21/16 at 17:30 Glucose (Glutose) 15 gm Q15M PRN BUCCAL DECREASED GLUCOSE; Start 12/21/16 at 17 :30 Amlodipine Besylate (Norvasc) 5 mg BID PO Last administered on 01/21/17 20:35 ; Admin Dose 5 MG; Start 12/27/16 at 21:00 Acetaminophen/ Hydrocodone Bitart ([place] (5/325)) 1 tab Q4H PRN PO pain Last administered on 01/18/17 00:01; Admin Dose 1 TAB; Start 01/08/17 at 14:30 Cyanocobalamin (Vitamin B12 Inj) 1,000 mcg DAILY IM Last administered on 09:29; Admin Dose 1,000 MCG; Start 01/10/17 at 14:00 IV Flush (NS 10 ml) 10 ml PRN PRN IV IV PROTOCOL; Start 01/11/17 at 16:00 Haloperidol (Haldol) 5 mg Q4 PRN IM Anxiety Last administered on 01/15/17 13: 37; Admin Dose 5 MG; Start 01/12/17 at 20:00 Quetiapine Fumarate 50 mg 50 mg BID PO Last administered on 01/21/17 20:31; Admin Dose 50 MG; Start 01/15/17 at 21:00 Meropenem (Merrem 500 Mg/ 100 ml (Pmx)) 100 ml @ 200 mls/hr Q24H IVPB Last administered on 01/21/17 20:30; Admin Dose 200 MLS/HR; Start 01/15/17 at 21:00 UMANG SEXTON MD Jan 22, 2017 07:32
[2017-01-22] MEDS: HEPARIN 5,000 UNIT/0.5 ML VIAL SC SCH ×2 (09:00→20:42)
[2017-01-22] MEDS: POLYETHYLENE GLYCOL 17 GM PACKET PO SCH ×2 (09:00→20:41)
[2017-01-22] MEDS: CYANOCOBALAMIN 1000 MCG INJ IM SCH (09:00)
[2017-01-22] MEDS: AMLODIPINE 5 MG TAB PO SCH ×2 (09:00→20:37)
[2017-01-22] MEDS: QUETIAPINE 25 MG TAB PO SCH ×2 (09:00→20:43)
[2017-01-22] MEDS: METOPROLOL 50 MG TAB PO SCH ×2 (09:00→20:37)
[2017-01-22] MEDS: FAMOTIDINE 20 MG TAB PO SCH (09:00)
[2017-01-22] MEDS ORDERED: LIDOCAINE 1% (MPF) 30 ML INJ ONE (09:26)
[2017-01-22] MEDS ORDERED: HEPARIN 1000 UNITS/ML 10 ML INJ ONE (09:27)
[2017-01-22] MEDS ORDERED: IOHEXOL 300MG/ML 30 ML BTL ONE (09:27)
[2017-01-22] MEDS ORDERED: CEFAZOLIN 1 GM INJ ONE (09:58)
[2017-01-22] MEDS ORDERED: FENTAnyl 50 MCG/ML VIAL ONE (09:58)
[2017-01-22] MEDS ORDERED: MIDAZOLAM 1 MG/ML 2 ML INJ ONE (09:58)
[2017-01-22] MEDS ORDERED: PROPOFOL 20 ML ONE (09:58)
--- NOTE | 2017-01-22 10:32 | HPN ---
Date/Time of Note Date/Time of Note DATE: 01/22/17 TIME: 10:32 Interval H&P Admission Note Pt. seen H&P reviewed: No system changes JANIS ROBERTO MD Jan 22, 2017 10:32
[2017-01-22] MEDS ORDERED: ONDANSETRON 4 MG INJ ONE (11:07)
[2017-01-22] MEDS ORDERED: METOCLOPRAMIDE 10 MG INJ ONE (11:07)
[2017-01-22] MEDS ORDERED: PHENYLephrine (100 MCG/ML) 5ML SYG ONE (11:13)
[2017-01-22] MEDS ORDERED: EPHEDrine SULFATE 50 MG/5 ML SYG IV PRN (11:30)
[2017-01-22] MEDS ORDERED: MEPERIDINE 25 MG INJ IV PRN (11:30)
[2017-01-22] MEDS ORDERED: METOCLOPRAMIDE 10 MG INJ IV PRN (11:30)
[2017-01-22] MEDS ORDERED: hydrALAzine 20 MG INJ IV PRN (11:30)
[2017-01-22] MEDS ORDERED: LABETALOL HCL 20MG INJ IV PRN (11:30)
[2017-01-22] MEDS ORDERED: morphine (1 MG/ML) 10ML SYRINGE IV PRN ×3 (11:30)
[2017-01-22] MEDS ORDERED: DIPHENHYDRAMINE 50 MG INJ IV PRN (11:30)
[2017-01-22] MEDS ORDERED: ONDANSETRON 4 MG INJ IV PRN (11:30)
[2017-01-22] MEDS ORDERED: HYDROmorphONE (0.2 MG/ML) 10ML SYG IV PRN ×3 (11:30)
--- NOTE | 2017-01-22 12:35 | OPR ---
DATE OF OPERATION: 01/22/2017 PREOPERATIVE DIAGNOSIS: End-stage renal disease. POSTOPERATIVE DIAGNOSIS: End-stage renal disease. SURGEON: Lino Busby MD ANESTHESIA: Local. COMPLICATIONS: None. ACCESS: Right common femoral vein. INDICATIONS: This is a 71-year-old gentleman with renal failure requiring dialysis. The patient an d family had been informed of alternatives, risks, and benefits. Risks including but not limited to bleeding, thrombosis, embolization, myocardial infarction, , stroke, device malfunction, infec tion and nephrotoxicity, and the patient has agreed to proceed. PROCEDURE: Right common femoral vein tunneled hemodialysis catheter placement. DESCRIPTION OF PROCEDURE: The patient was brought into the operating room table and placed in supin e position. The bed was placed in slight Trendelenburg position and the groin was prepped and drape d in the usual standard sterile fashion. The central dialysis catheter was then flushed with hepari nized saline solution to ensure function of each port. The skin and subcutaneous tissue were anesth etized with 1% lidocaine. At this point, using an Amplatz Stiff wire, the temporary catheter was re moved over the wire. At this point, a tunneled tract was created by creating a 3 mm incision [address] from groin access of the previous Norris catheter. At this point, using the tunneler, the perm anent hemodialysis catheter was tunneled towards the groin access wire. Once this was established a nd tunneled appropriately, we went ahead and placed our dilator and dilated our tract and over the w edwin gently. At this point, the catheter was then fed over the wire through a peel-away sheath ensur ing that the wire exited from the ports and the peel-away sheath. At this point, the catheter was i nserted to the desired depth and the puncture site was closed with 3-0 Vicryl suture and Dermabond w as applied. The tunneled dialysis catheter was secured with a 3-0 nylon suture at its flush port si te. Then, 3 mL of heparin were placed in each port and an abdominal x-ray was obtained to ensure th e placement of the catheter, which was adequate. The patient tolerated the procedure well and was t aken to the postanesthesia care unit in stable condition. All instrument, sponge and needle counts were correct x2. Dictated By: LINO BHATTI/RIKA Conf#: [id number] DID#: [id number]
--- NOTE | 2017-01-22 12:49 | CONS ---
Date/Time of Note Date/Time of Note DATE: 01/22/17 TIME: 12:39 Assessment/Plan Assessment/Plan Chief Complaint/Hosp Course ID PROGRESS NOTE ABX DAY # 8 => Vanco IV + Merrem 24H INTERVAL SUMMARY * Awake, alert, responsive, not oriented to events, tells me he does not know if he just got a knew HD catheter although he just returned from IR. * POD #0 -> Right common femoral vein tunneled hemodialysis catheter placement. * VSS, No fevers, pain controlled w/pain meds onboard * PHYSICAL EXAMINATION: GENERAL: VSS, NAD, no fever HEENT: Unremarkable NECK: Trach-> midline CHEST: Equal chest rise bilaterally, without dyspnea on observation HEART: Pulse RRR ABDOMEN: Soft EXTREMITIES: Warm, SKIN: Warm, dry ID ASSESSMENT: 71 yo M w/ admitted with: 1. Sepsis w/ bacteremia on admission => Sepsis resolved 2. 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 2. Status post Proteus mirabilis urinary tract infection with bacteremia. 3. Status post pneumonia. 4. Pleural effusion. 5. Acute on chronic kidney disease, hemodialysis dependent. 6. Atrial fibrillation. 7. History of ETOH abuse 8. s/p Encephalopathy=> Improved; however patient is confused ?dementia? ABX ALLERGIES: PCN, ADHESIVE, LATEX INVASIVES: RCFV PermCath (01/22/17); PICC (01/11/2017) CURRENT ABX: ABX DAY # 8 => Vanco IV + Merrem ID RECOMMENDATIONS: 1. Continue broad spectrum coverage. will require long-term IV antibiotics for 6 to 8 weeks with repeat MRI and ortho re-evaluation prior discontinuation of therapy. 2. Consider IR needle aspiration with bx. . Problems: Consultation Date/Type/Reason Admit Date/Time December 10, 2016 at 16:57 Type of Consultation: ID Referring Provider: NETTA SALOMON MD Exam/Review of Systems Vital Signs Vitals Vital Signs Date Time Temp Pulse Resp B/P Pulse Ox O2 Delivery O2 Flow Rate FiO2 01/22/17 12:15 66 18 118/68 98 Nasal Cannula 01/22/17 11:26 98.0 Intake and Output 01/21/17 01/21/17 01/22/17 14:59 22:59 06:59 Intake Total 500 ml 100 ml 240 ml Output Total 1500 ml 300 ml Balance -1000 ml 100 ml -60 ml Results Result Diagram: 01/22/17 0405 Results 24 hrs Laboratory Tests Test 01/22/17 04:05 Sodium Level 144 Potassium Level 3.6 Chloride Level 108 Carbon Dioxide Level 28 Anion Gap 12 Blood Urea Nitrogen 13 Creatinine 3.65 H Glucose Level 81 Calcium Level 8.6 Medications Medications Current Medications Ondansetron HCl (Zofran Inj) 4 mg Q6H PRN IV NAUSEA AND/OR VOMITING Last administered on 12/24/16 12:08; Admin Dose 4 MG; Start 12/10/16 at 18:00 Magnesium Hydroxide (Milk Of Mag) 30 ml DAILY PRN PO CONSTIPATION Last administered on 12/29/16 08:56; Admin Dose 30 ML; Start 12/10/16 at 18:00 Bisacodyl (Dulcolax) 5 mg DAILY PRN PO CONSTIPATION; Start 12/10/16 at 18:00 Famotidine (Pepcid) 20 mg DAILY PO Last administered on 01/20/17 09:22; Admin Dose 20 MG; Start 12/11/16 at 09:00 Atorvastatin Calcium (Lipitor) 10 mg DAILY@21 PO Last administered on 01/14/17 21:49; Admin Dose 10 MG; Start 12/10/16 at 21:00; Status Future Hold Heparin Sodium (Porcine) (Heparin (5000 Units/0.5 ml)) 5,000 unit BID SC Last administered on 01/21/17 20:43; Admin Dose 5,000 UNIT; Start 12/11/16 at 21:00; Status Future hold Metoprolol Tartrate (Lopressor) 50 mg BID PO Last administered on 01/21/17 20: 34; Admin Dose 50 MG; Start 12/17/16 at 21:00 Polyethylene Glycol (Miralax) 17 gm BID PO Last administered on 01/21/17 20:35 ; Admin Dose 17 GM; Start 12/21/16 at 21:00 Miscellaneous Information 1 ea NOTE XX ; Start 12/21/16 at 17:30 Glucose (Glutose) 15 gm Q15M PRN PO DECREASED GLUCOSE; Start 12/21/16 at 17:30 Glucose (Glutose) 22.5 gm Q15M PRN PO DECREASED GLUCOSE; Start 12/21/16 at 17: 30 Dextrose (D50w Syringe) 25 ml Q15M PRN IV DECREASED GLUCOSE; Start 12/21/16 at 17:30 Dextrose (D50w Syringe) 50 ml Q15M PRN IV DECREASED GLUCOSE; Start 12/21/16 at 17:30 Glucagon (Glucagen) 1 mg Q15M PRN IM DECREASED GLUCOSE; Start 12/21/16 at 17:30 Glucose (Glutose) 15 gm Q15M PRN BUCCAL DECREASED GLUCOSE; Start 12/21/16 at 17 :30 Amlodipine Besylate (Norvasc) 5 mg BID PO Last administered on 01/21/17 20:35 ; Admin Dose 5 MG; Start 12/27/16 at 21:00 Acetaminophen/ Hydrocodone Bitart ([place] (5/325)) 1 tab Q4H PRN PO pain Last administered on 01/18/17 00:01; Admin Dose 1 TAB; Start 01/08/17 at 14:30 Cyanocobalamin (Vitamin B12 Inj) 1,000 mcg DAILY IM Last administered on 09:29; Admin Dose 1,000 MCG; Start 01/10/17 at 14:00 IV Flush (NS 10 ml) 10 ml PRN PRN IV IV PROTOCOL; Start 01/11/17 at 16:00 Haloperidol (Haldol) 5 mg Q4 PRN IM Anxiety Last administered on 01/15/17 13: 37; Admin Dose 5 MG; Start 01/12/17 at 20:00 Quetiapine Fumarate 50 mg 50 mg BID PO Last administered on 01/21/17 20:31; Admin Dose 50 MG; Start 01/15/17 at 21:00 Meropenem (Merrem 500 Mg/ 100 ml (Pmx)) 100 ml @ 200 mls/hr Q24H IVPB Last administered on 01/21/17 20:30; Admin Dose 200 MLS/HR; Start 01/15/17 at 21:00 RHONDA PETERSON NP Jan 22, 2017 12:49
--- NOTE | 2017-01-22 14:40 | CONS ---
Date/Time of Note Date/Time of Note DATE: 01/22/17 TIME: 14:39 Assessment/Plan Assessment/Plan Additional Assessment/Plan 1. Acute kidney injury on CKD progressing worsening- pt had a HD on 12/29 and - then HD catheter has been discontinued - makign good urine, but BUn/Cr slowly rising, 2. 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 Possible history of chronic kidney disease secondary to hypertensive nephrosclerosis. 5. History of hypertension. 6. History of gout. 7. History of hyperlipidemia. 8. Atrial fibrillation, rate controlled. 9. History of alcohol abuse. 10. Thrombocytopenia secondary to alcohol abuse. 11. sepsis due to UTI and bacteremia with Blood cx and urine Cx growing proteus - follow up blood cx negative 12. Moderate pleural effusion s/p Throacentesis 12/31/2016- 2.21 L Fluid removed PLAN: started on HD again due to persistent uremia and encephalopathy s/p HD yesterday, plan for permacath removal today S/p Neurosurgeon evaluation - possible OM of spine on IV abx, ID following will follow up Consultation Date/Type/Reason Admit Date/Time December 10, 2016 at 16:57 Type of Consultation: NEPHROLOGOY Referring Provider: NETTA SALOMON MD 24 HR Interval Summary Free Text/Dictation plan for permacath today Exam/Review of Systems Vital Signs Vitals Vital Signs Date Time Temp Pulse Resp B/P Pulse Ox O2 Delivery O2 Flow Rate FiO2 01/22/17 12:30 66 16 117/50 96 Room Air Nasal Cannula 01/22/17 11:26 98.0 Intake and Output 01/21/17 01/21/17 01/22/17 15:00 23:00 07:00 Intake Total 500 ml 100 ml 240 ml Output Total 1500 ml 300 ml Balance -1000 ml 100 ml -60 ml Results Result Diagram: 01/22/17 0405 Results 24 hrs Laboratory Tests Test 01/22/17 04:05 Sodium Level 144 Potassium Level 3.6 Chloride Level 108 Carbon Dioxide Level 28 Anion Gap 12 Blood Urea Nitrogen 13 Creatinine 3.65 H Glucose Level 81 Calcium Level 8.6 Medications Medications Current Medications Ondansetron HCl (Zofran Inj) 4 mg Q6H PRN IV NAUSEA AND/OR VOMITING Last administered on 12/24/16t 12:08; Admin Dose 4 MG; Start 12/10/16 at 18:00 Magnesium Hydroxide (Milk Of Mag) 30 ml DAILY PRN PO CONSTIPATION Last administered on 12/29/16 08:56; Admin Dose 30 ML; Start 12/10/16 at 18:00 Bisacodyl (Dulcolax) 5 mg DAILY PRN PO CONSTIPATION; Start 12/10/16 at 18:00 Famotidine (Pepcid) 20 mg DAILY PO Last administered on 01/20/17 09:22; Admin Dose 20 MG; Start 12/11/16 at 09:00 Atorvastatin Calcium (Lipitor) 10 mg DAILY@21 PO Last administered on 01/14/17 21:49; Admin Dose 10 MG; Start 12/10/16 at 21:00; Status Future Hold Heparin Sodium (Porcine) (Heparin (5000 Units/0.5 ml)) 5,000 unit BID SC Last administered on 01/21/17 20:43; Admin Dose 5,000 UNIT; Start 12/11/16 at 21:00; Status Future hold Metoprolol Tartrate (Lopressor) 50 mg BID PO Last administered on 01/21/17 20: 34; Admin Dose 50 MG; Start 12/17/16 at 21:00 Polyethylene Glycol (Miralax) 17 gm BID PO Last administered on 01/21/17 20:35 ; Admin Dose 17 GM; Start 12/21/16 at 21:00 Miscellaneous Information 1 ea NOTE XX ; Start 12/21/16 at 17:30 Glucose (Glutose) 15 gm Q15M PRN PO DECREASED GLUCOSE; Start 12/21/16 at 17:30 Glucose (Glutose) 22.5 gm Q15M PRN PO DECREASED GLUCOSE; Start 12/21/16 at 17: 30 Dextrose (D50w Syringe) 25 ml Q15M PRN IV DECREASED GLUCOSE; Start 12/21/16 at 17:30 Dextrose (D50w Syringe) 50 ml Q15M PRN IV DECREASED GLUCOSE; Start 12/21/16 at 17:30 Glucagon (Glucagen) 1 mg Q15M PRN IM DECREASED GLUCOSE; Start 12/21/16 at 17:30 Glucose (Glutose) 15 gm Q15M PRN BUCCAL DECREASED GLUCOSE; Start 12/21/16 at 17 :30 Amlodipine Besylate (Norvasc) 5 mg BID PO Last administered on 01/21/17 20:35 ; Admin Dose 5 MG; Start 12/27/16 at 21:00 Acetaminophen/ Hydrocodone Bitart ([place] (5/325)) 1 tab Q4H PRN PO pain Last administered on 01/18/17 00:01; Admin Dose 1 TAB; Start 01/08/17 at 14:30 Cyanocobalamin (Vitamin B12 Inj) 1,000 mcg DAILY IM Last administered on 09:29; Admin Dose 1,000 MCG; Start 01/10/17 at 14:00 IV Flush (NS 10 ml) 10 ml PRN PRN IV IV PROTOCOL; Start 01/11/17 at 16:00 Haloperidol (Haldol) 5 mg Q4 PRN IM Anxiety Last administered on 01/15/17 13: 37; Admin Dose 5 MG; Start 01/12/17 at 20:00 Quetiapine Fumarate 50 mg 50 mg BID PO Last administered on 01/21/17 20:31; Admin Dose 50 MG; Start 01/15/17 at 21:00 Meropenem (Merrem 500 Mg/ 100 ml (Pmx)) 100 ml @ 200 mls/hr Q24H IVPB Last administered on 01/21/17 20:30; Admin Dose 200 MLS/HR; Start 01/15/17 at 21:00 Miscellaneous Information (*Rx Drug Level Order Reminder*) RANDOM VANCOMYCIN LEVEL 6... ONCE ONCE XX ; Start 01/23/17 at 05:00; Stop 01/23/17 at 05:01 MADELYN MIRANDA MD Jan 22, 2017 14:40
[2017-01-22] MEDS: HYDROCODONE/APAP (5/325) TAB PO PRN (18:24)
[2017-01-22] MEDS: MEROPENEM 500 MG/100 ML (PMX) 100 ML IVPB SCH (20:41)
--- NOTE | 2017-01-22 23:45 | RADRPT ---
PROCEDURE: Abdominal x-ray CLINICAL INDICATION: Placement of right central venous dialysis catheter. TECHNIQUE: Single frontal view of the abdomen. COMPARISON: None. FINDINGS: Right central venous femoral line is seen with tip off top of the film, suggesting a dialysis cathet er. The tip is likely within the chest. Nonobstructive nonspecific bowel gas pattern. IMPRESSION: Right central venous femoral line is seen with tip off top of the film, likely within the chest. RPTAT: [facility] Physician Chastity Date Time Electronically viewed and signed by Physician Chastity on 01/22/2017 23:45 RS/
[2017-01-23] VITALS (10 sets, daily range): BP systolic 53–118; BP diastolic 28–58; PULSE 66–90; RESP 16
[2017-01-23 06:23] LABS: CALCIUM 8.3 mg/dl (8.4-10.2); CREATININE 3.97 mg/dl (0.61-1.24); POTASSIUM 3.7 mmol/L (3.5-5.1)
[2017-01-23] MEDS: HYDROCODONE/APAP (5/325) TAB PO PRN (08:32)
[2017-01-23] MEDS: FAMOTIDINE 20 MG TAB PO SCH (08:33)
[2017-01-23] MEDS: QUETIAPINE 25 MG TAB PO SCH ×2 (08:33→20:59)
[2017-01-23] MEDS: METOPROLOL 50 MG TAB PO SCH ×2 (08:34→20:59)
[2017-01-23] MEDS: AMLODIPINE 5 MG TAB PO SCH ×2 (08:34→20:59)
[2017-01-23] MEDS: CYANOCOBALAMIN 1000 MCG INJ IM SCH (08:35)
[2017-01-23] MEDS: HEPARIN 5,000 UNIT/0.5 ML VIAL SC SCH ×2 (08:37→21:01)
[2017-01-23] MEDS: POLYETHYLENE GLYCOL 17 GM PACKET PO SCH ×2 (08:37→20:59)
[2017-01-23] MEDS ORDERED: TAMSULOSIN (SR) 0.4 MG CAP PO ONE (10:00)
--- NOTE | 2017-01-23 10:15 | PN ---
Date/Time of Note Date/Time of Note DATE: 01/23/17 TIME: 10:08 Assessment/Plan VTE Prophylaxis VTE Prophylaxis Intervention: SCD's Lines/Catheters IV Catheter Type (from [facility]): permacath Urinary Cath still in place: No Assessment/Plan Chief Complaint/Hosp Course Hospital day 44 Problems: (1) BPH (benign prostatic hypertrophy) with urinary retention Status: Chronic Comment: Over the course of the hospitalization review it turns out he apparently had not had bladder scans done. Will bladder scan he has a half a liter of urine in his bladder. And then start putting him on some tamsulosin on the hope that will make some progress with this. (2) Essential hypertension Status: Chronic Comment: Adequately controlled. Please note he had hypotension today due to slight fluid shifting from hemodialysis; morphine etc. (3) Osteoarthritis Status: Chronic Comment: Noted. Continue with his treatments. Please note this combined with the osteomyelitis is causing him significant pain and discomfort neurosurgery and orthopedics are both on the case Qualifiers: Osteoarthritis location: spine Spinal region: thoracolumbar Spinal osteoarthritis complication: with radiculopathy Qualified Code: M47.25 - Osteoarthritis of spine with radiculopathy, thoracolumbar region (4) Spinal stenosis at L4-L5 level Status: Chronic Comment: Noted. Neurosurgery and orthopedics are both involved (5) Vertebral osteomyelitis, acute Status: Acute Comment: He is on antibiotics with a plan to give him at least 6 weeks of antibiotics. At this point we need to think about discharge planning and placement to a facility that can handle him and his dialysis and his antibiotics for this long haul approach. Appreciate input from infectious disease; neurosurgery; orthopedic (6) Acute renal failure (ARF) Status: Acute Comment: Noted. He is receiving dialysis. I doubt that dealing with the obstructive uropathy will have a significant impact on this but one can hope Qualifiers: Acute renal failure type: unspecified Qualified Code: N17.9 - Acute renal failure, unspecified acute renal failure type (7) History of gout Status: Chronic Comment: Noted and inactive (8) Alcoholism /alcohol abuse Status: Chronic Comment: We have cleared the timeframe for concern for DTs or withdrawal Subjective 24 Hr Interval Summary Free Text/Dictation Patient complains of back pain and diarrhea which started yesterday and is coming intermittently. At the end of dialysis his blood pressure dropped. Constitutional: no complaints (No fevers chills or sweats) Respiratory: no complaints Cardiovascular: no complaints Gastrointestinal: diarrhea (Onset last 24 hours) Genitourinary: no complaints (Please note urinary retention) Exam/Review of Systems Vital Signs Vitals Vital Signs Date Time Temp Pulse Resp B/P Pulse Ox O2 Delivery O2 Flow Rate FiO2 01/23/17 09:39 76 01/23/17 08:40 16 01/23/17 07:05 98.2 118/58 97 01/22/17 12:30 Room Air Nasal Cannula Intake and Output 01/22/17 01/22/17 01/23/17 14:59 22:59 06:59 Intake Total 350 ml 300 ml 120 ml Output Total 10 ml 520 ml 100 ml Balance 340 ml -220 ml 20 ml Exam Patient's blood pressure dropped to 54 systolic at the end of dialysis then rebounded once we put him in Trendelenburg and responded quite briskly to a single 250 cc saline bolus Constitutional: alert, oriented Respiratory: clear to auscultation, normal air movement Cardiovascular: nl pulses, regular rate and rhythm Gastrointestinal: nl liver, spleen, non-tender, soft Results Result Diagram: 01/23/17 0415 Results 24 hrs Laboratory Tests Test 01/23/17 04:15 Sodium Level 137 Potassium Level 3.7 Chloride Level 104 Carbon Dioxide Level 28 Anion Gap 9 Blood Urea Nitrogen 14 Creatinine 3.97 H Glucose Level 78 Calcium Level 8.3 L Random Vancomycin Level 16.4 Medications Medications Current Medications Ondansetron HCl (Zofran Inj) 4 mg Q6H PRN IV NAUSEA AND/OR VOMITING Last administered on 12/24/16 12:08; Admin Dose 4 MG; Start 12/10/16 at 18:00 Magnesium Hydroxide (Milk Of Mag) 30 ml DAILY PRN PO CONSTIPATION Last administered on 12/29/16 08:56; Admin Dose 30 ML; Start 12/10/16 at 18:00 Bisacodyl (Dulcolax) 5 mg DAILY PRN PO CONSTIPATION; Start 12/10/16 at 18:00 Famotidine (Pepcid) 20 mg DAILY PO Last administered on 01/23/17 08:33; Admin Dose 20 MG; Start 12/11/16 at 09:00 Atorvastatin Calcium (Lipitor) 10 mg DAILY@21 PO Last administered on 6/9/17at 21:49; Admin Dose 10 MG; Start 12/10/16 at 21:00; Status Future Hold Heparin Sodium (Porcine) (Heparin (5000 Units/0.5 ml)) 5,000 unit BID SC Last administered on 01/22/17 20:42; Admin Dose 5,000 UNIT; Start 12/11/16 at 21:00; Status Future hold Metoprolol Tartrate (Lopressor) 50 mg BID PO Last administered on 01/23/17 08: 34; Admin Dose 50 MG; Start 12/17/16 at 21:00 Polyethylene Glycol (Miralax) 17 gm BID PO Last administered on 01/22/17 20:41 ; Admin Dose 17 GM; Start 12/21/16 at 21:00 Miscellaneous Information 1 ea NOTE XX ; Start 12/21/16 at 17:30 Glucose (Glutose) 15 gm Q15M PRN PO DECREASED GLUCOSE; Start 12/21/16 at 17:30 Glucose (Glutose) 22.5 gm Q15M PRN PO DECREASED GLUCOSE; Start 12/21/16 at 17: 30 Dextrose (D50w Syringe) 25 ml Q15M PRN IV DECREASED GLUCOSE; Start 12/21/16 at 17:30 Dextrose (D50w Syringe) 50 ml Q15M PRN IV DECREASED GLUCOSE; Start 12/21/16 at 17:30 Glucagon (Glucagen) 1 mg Q15M PRN IM DECREASED GLUCOSE; Start 12/21/16 at 17:30 Glucose (Glutose) 15 gm Q15M PRN BUCCAL DECREASED GLUCOSE; Start 12/21/16 at 17 :30 Amlodipine Besylate (Norvasc) 5 mg BID PO Last administered on 01/23/17 08:34 ; Admin Dose 5 MG; Start 12/27/16 at 21:00 Acetaminophen/ Hydrocodone Bitart ([place] (5/325)) 1 tab Q4H PRN PO pain Last administered on 01/23/17 08:32; Admin Dose 1 TAB; Start 01/08/17 at 14:30 IV Flush (NS 10 ml) 10 ml PRN PRN IV IV PROTOCOL; Start 01/11/17 at 16:00 Haloperidol (Haldol) 5 mg Q4 PRN IM Anxiety Last administered on 01/15/17 13: 37; Admin Dose 5 MG; Start 6/7/17 at 20:00 Quetiapine Fumarate 50 mg 50 mg BID PO Last administered on 01/23/17 08:33; Admin Dose 50 MG; Start 01/15/17 at 21:00 Meropenem (Merrem 500 Mg/ 100 ml (Pmx)) 100 ml @ 200 mls/hr Q24H IVPB Last administered on 01/22/17 20:41; Admin Dose 200 MLS/HR; Start 01/15/17 at 21:00 Cyanocobalamin (Vitamin B12 Inj) 1,000 mcg Q7D IM ; Start 01/30/17 at 09:00 Tamsulosin HCl (Flomax) 0.4 mg HS PO ; Start 01/23/17 at 21:00; Status UMANG CASILLAS MD Jan 23, 2017 10:14
[2017-01-23] MEDS ORDERED: SOD CHLORIDE 0.9% 250 ML IV ONE (10:30)
[2017-01-23] MEDS: EPOETIN 3000 UNITS/1 ML INJ (ESRD) SC SCH (11:58)
--- NOTE | 2017-01-23 13:52 | CONS ---
Date/Time of Note Date/Time of Note DATE: 01/23/17 TIME: 13:46 Assessment/Plan Assessment/Plan Chief Complaint/Hosp Course SUBJECTIVE: Patient was hypotensive this morning. Denies Headache. Denies Dizziness. No fevers. No acute distress. MICROBIOLOGY: Blood cultures are negative. ANTIMICROBIALS: Vancomycin, Merrem. INDWELLINGS: Femoral Norris placed on 01/13/2017 and PICC line placed on 01/11. PHYSICAL EXAMINATION: GENERAL: This is well-developed, chronically ill-appearing, elderly man who is in no distress. HEENT: Head atraumatic, normocephalic. Sclerae anicteric. Buccal mucosa dry. NECK: Supple. CHEST: Rise symmetrical. Breath sounds diminished to bases. HEART: S1, S2. ABDOMEN: Soft. Bowel tones present. EXTREMITIES: No cyanosis. ASSESSMENT: 1. 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 2. Status post Proteus mirabilis urinary tract infection with bacteremia. 3. Status post pneumonia. 4. Pleural effusion. 5. Acute on chronic kidney disease, hemodialysis dependent. 6. Atrial fibrillation. 7. History of ETOH abuse. 8. ALLERGY TO PENICILLIN. 9. Acute Hypotension. PLAN: The patient remains stable. Continue broad spectrum coverage. Consider IR needle aspiration with bx. Patient will require long-term IV antibiotics for 6 to 8 weeks with repeat MRI and ortho re-evaluation prior discontinuation of therapy. Pending permacath. Monitor Labs. Monitor Blood pressure. staff. Problems: Consultation Date/Type/Reason Admit Date/Time December 10, 2016 at 16:57 Initial Consult Date 01/16/17 Type of Consultation: iD Referring Provider: NETTA SALOMON MD Exam/Review of Systems Vital Signs Vitals Vital Signs Date Time Temp Pulse Resp B/P Pulse Ox O2 Delivery O2 Flow Rate FiO2 01/23/17 12:05 71 16 108/55 97 Room Air 01/23/17 07:05 98.2 Intake and Output 01/22/17 01/22/17 01/23/17 15:00 23:00 07:00 Intake Total 350 ml 300 ml 120 ml Output Total 10 ml 520 ml 100 ml Balance 340 ml -220 ml 20 ml Results Result Diagram: 01/23/17 0415 Results 24 hrs Laboratory Tests Test 01/23/17 04:15 Sodium Level 137 Potassium Level 3.7 Chloride Level 104 Carbon Dioxide Level 28 Anion Gap 9 Blood Urea Nitrogen 14 Creatinine 3.97 H Glucose Level 78 Calcium Level 8.3 L Random Vancomycin Level 16.4 Medications Medications Current Medications Ondansetron HCl (Zofran Inj) 4 mg Q6H PRN IV NAUSEA AND/OR VOMITING Last administered on 12/24/16 12:08; Admin Dose 4 MG; Start 12/10/16 at 18:00 Magnesium Hydroxide (Milk Of Mag) 30 ml DAILY PRN PO CONSTIPATION Last administered on 12/29/16 08:56; Admin Dose 30 ML; Start 12/10/16 at 18:00 Bisacodyl (Dulcolax) 5 mg DAILY PRN PO CONSTIPATION; Start 12/10/16 at 18:00 Famotidine (Pepcid) 20 mg DAILY PO Last administered on 01/23/17 08:33; Admin Dose 20 MG; Start 12/11/16 at 09:00 Atorvastatin Calcium (Lipitor) 10 mg DAILY@21 PO Last administered on 01/14/17 21:49; Admin Dose 10 MG; Start 12/10/16 at 21:00; Status Future Hold Heparin Sodium (Porcine) (Heparin (5000 Units/0.5 ml)) 5,000 unit BID SC Last administered on 01/22/17 20:42; Admin Dose 5,000 UNIT; Start 12/11/16 at 21:00; Status Future hold Metoprolol Tartrate (Lopressor) 50 mg BID PO Last administered on 01/23/17 08: 34; Admin Dose 50 MG; Start 12/17/16 at 21:00 Polyethylene Glycol (Miralax) 17 gm BID PO Last administered on 01/22/17 20:41 ; Admin Dose 17 GM; Start 12/21/16 at 21:00 Miscellaneous Information 1 ea NOTE XX ; Start 12/21/16 at 17:30 Glucose (Glutose) 15 gm Q15M PRN PO DECREASED GLUCOSE; Start 12/21/16 at 17:30 Glucose (Glutose) 22.5 gm Q15M PRN PO DECREASED GLUCOSE; Start 12/21/16 at 17: 30 Dextrose (D50w Syringe) 25 ml Q15M PRN IV DECREASED GLUCOSE; Start 12/21/16 at 17:30 Dextrose (D50w Syringe) 50 ml Q15M PRN IV DECREASED GLUCOSE; Start 12/21/16 at 17:30 Glucagon (Glucagen) 1 mg Q15M PRN IM DECREASED GLUCOSE; Start 12/21/16 at 17:30 Glucose (Glutose) 15 gm Q15M PRN BUCCAL DECREASED GLUCOSE; Start 12/21/16 at 17 :30 Amlodipine Besylate (Norvasc) 5 mg BID PO Last administered on 01/23/17 08:34 ; Admin Dose 5 MG; Start 12/27/16 at 21:00 Acetaminophen/ Hydrocodone Bitart ([place] (5/325)) 1 tab Q4H PRN PO pain Last administered on 01/23/17 08:32; Admin Dose 1 TAB; Start 01/08/17 at 14:30 IV Flush (NS 10 ml) 10 ml PRN PRN IV IV PROTOCOL; Start 01/11/17 at 16:00 Haloperidol (Haldol) 5 mg Q4 PRN IM Anxiety Last administered on 01/15/17 13: 37; Admin Dose 5 MG; Start 01/12/17 at 20:00 Quetiapine Fumarate 50 mg 50 mg BID PO Last administered on 01/23/17 08:33; Admin Dose 50 MG; Start 01/15/17 at 21:00 Meropenem (Merrem 500 Mg/ 100 ml (Pmx)) 100 ml @ 200 mls/hr Q24H IVPB Last administered on 01/22/17 20:41; Admin Dose 200 MLS/HR; Start 01/15/17 at 21:00 Cyanocobalamin (Vitamin B12 Inj) 1,000 mcg Q7D IM ; Start 01/30/17 at 09:00 Tamsulosin HCl 0.4 mg 0.4 mg HS PO ; Start 01/23/17 at 21:00 Vancomycin HCl/ Sodium Chloride (Vancocin/NS) 250 ml @ 83.333 mls/ hr 17 IVPB ; Start 01/23/17 at 17:00; Stop 01/23/17 at 23:00 JARRETT BOO NP Jan 23, 2017 13:52
--- NOTE | 2017-01-23 14:30 | PN ---
DATE: 01/23/2017 SUBJECTIVE: Patient is sleeping and appeared to be comfortable. he has had a history of urinary re tention that required intermittent catheterization. OBJECTIVE: VITAL SIGNS: His temperature is 98.2, blood pressure 108/55, pulse 71, respirations 16. Bladder sc an done on him this morning was less than 500, but that was about 460 mL. No catheterization was do ne and the patient has not voided since therefore we will repeat the bladder scan and if it shows ov er 500, then he will need to be straight catheterized. They tried to dialyze him today, but his blo od pressure dropped. Therefore, they did not do the dialysis today. IMPRESSION: Urinary retention. Patient has had a radical prostatectomy, so is not a matter of obst ruction, is more probably related to him being in bed sleeping most of the time. RECOMMENDATION: To continue to check his bladder with a bladder scan and when the volume is over 50 0, then I will do a straight catheterization on him. Dictated By: LAUREN GIL/RIKA Conf#: [id number] DID#: [id number]
[2017-01-23] MEDS ORDERED: VANCOMYCIN 1.5 GM in SOD CHLORIDE 0.9% 250 ML IVPB SCH (17:00)
[2017-01-23] MEDS: TAMSULOSIN (SR) 0.4 MG CAP PO SCH (20:58)
--- NOTE | 2017-01-23 21:09 | CONS ---
Date/Time of Note Date/Time of Note DATE: 01/23/17 TIME: 21:06 Assessment/Plan Assessment/Plan Additional Assessment/Plan 1. Acute kidney injury on CKD progressing worsening- pt had a HD on 12/29 and - then HD catheter has been discontinued - makign good urine, but BUn/Cr slowly rising, 2. 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 Possible history of chronic kidney disease secondary to hypertensive nephrosclerosis. 5. History of hypertension. 6. History of gout. 7. History of hyperlipidemia. 8. Atrial fibrillation, rate controlled. 9. History of alcohol abuse. 10. Thrombocytopenia secondary to alcohol abuse. 11. sepsis due to UTI and bacteremia with Blood cx and urine Cx growing proteus - follow up blood cx negative 12. Moderate pleural effusion s/p Throacentesis 12/31/2016- 2.21 L Fluid removed PLAN: started on HD again due to persistent uremia and encephalopathy Today during HD he becomes altered, hypotensive so it was stopped, no plan for HD tomorrow s/p HD yesterday, s/p Right femoral permacath placement S/p Neurosurgeon evaluation - possible OM of spine on IV abx, ID following will follow up Consultation Date/Type/Reason Admit Date/Time December 10, 2016 at 16:57 Type of Consultation: NEPHROLOGY Referring Provider: NETTA SALOMON MD 24 HR Interval Summary Free Text/Dictation pt becomes altered, hypotesnsive during HD today, so HD was stopped s/p Right fermoral permacath placement Exam/Review of Systems Vital Signs Vitals Vital Signs Date Time Temp Pulse Resp B/P Pulse Ox O2 Delivery O2 Flow Rate FiO2 01/23/17 20:17 97.9 72 16 107/53 96 01/23/17 12:05 Room Air Intake and Output 01/22/17 01/22/17 01/23/17 15:00 23:00 07:00 Intake Total 350 ml 300 ml 120 ml Output Total 10 ml 520 ml 100 ml Balance 340 ml -220 ml 20 ml Exam GENERAL: This is well-developed, chronically ill-appearing, elderly man who is in no distress. HEENT: Head atraumatic, normocephalic. Sclerae anicteric. Buccal mucosa dry. NECK: Supple. CHEST: Rise symmetrical. Breath sounds diminished to bases. HEART: S1, S2. ABDOMEN: Soft. Bowel tones present., Right femoral permacath present EXTREMITIES: No cyanosis. Results Result Diagram: 01/23/17 0415 Results 24 hrs Laboratory Tests Test 01/23/17 04:15 Sodium Level 137 Potassium Level 3.7 Chloride Level 104 Carbon Dioxide Level 28 Anion Gap 9 Blood Urea Nitrogen 14 Creatinine 3.97 H Glucose Level 78 Calcium Level 8.3 L Random Vancomycin Level 16.4 Medications Medications Current Medications Ondansetron HCl (Zofran Inj) 4 mg Q6H PRN IV NAUSEA AND/OR VOMITING Last administered on 12/24/16 12:08; Admin Dose 4 MG; Start 12/10/16 at 18:00 Magnesium Hydroxide (Milk Of Mag) 30 ml DAILY PRN PO CONSTIPATION Last administered on 12/29/16 08:56; Admin Dose 30 ML; Start 12/10/16 at 18:00 Bisacodyl (Dulcolax) 5 mg DAILY PRN PO CONSTIPATION; Start 12/10/16 at 18:00 Famotidine (Pepcid) 20 mg DAILY PO Last administered on 01/23/17 08:33; Admin Dose 20 MG; Start 12/11/16 at 09:00 Atorvastatin Calcium (Lipitor) 10 mg DAILY@21 PO Last administered on 01/14/17 21:49; Admin Dose 10 MG; Start 12/10/16 at 21:00; Status Future Hold Heparin Sodium (Porcine) (Heparin (5000 Units/0.5 ml)) 5,000 unit BID SC Last administered on 01/22/17 20:42; Admin Dose 5,000 UNIT; Start 12/11/16 at 21:00; Status Future hold Metoprolol Tartrate (Lopressor) 50 mg BID PO Last administered on 01/23/17 08: 34; Admin Dose 50 MG; Start 12/17/16 at 21:00 Polyethylene Glycol (Miralax) 17 gm BID PO Last administered on 01/22/17 20:41 ; Admin Dose 17 GM; Start 12/21/16 at 21:00 Miscellaneous Information 1 ea NOTE XX ; Start 12/21/16 at 17:30 Glucose (Glutose) 15 gm Q15M PRN PO DECREASED GLUCOSE; Start 12/21/16 at 17:30 Glucose (Glutose) 22.5 gm Q15M PRN PO DECREASED GLUCOSE; Start 12/21/16 at 17: 30 Dextrose (D50w Syringe) 25 ml Q15M PRN IV DECREASED GLUCOSE; Start 12/21/16 at 17:30 Dextrose (D50w Syringe) 50 ml Q15M PRN IV DECREASED GLUCOSE; Start 12/21/16 at 17:30 Glucagon (Glucagen) 1 mg Q15M PRN IM DECREASED GLUCOSE; Start 12/21/16 at 17:30 Glucose (Glutose) 15 gm Q15M PRN BUCCAL DECREASED GLUCOSE; Start 12/21/16 at 17 :30 Amlodipine Besylate (Norvasc) 5 mg BID PO Last administered on 01/23/17 08:34 ; Admin Dose 5 MG; Start 12/27/16 at 21:00 Acetaminophen/ Hydrocodone Bitart ([place] (5/325)) 1 tab Q4H PRN PO pain Last administered on 01/23/17 08:32; Admin Dose 1 TAB; Start 01/08/17 at 14:30 IV Flush (NS 10 ml) 10 ml PRN PRN IV IV PROTOCOL; Start 01/11/17 at 16:00 Haloperidol (Haldol) 5 mg Q4 PRN IM Anxiety Last administered on 01/15/17 13: 37; Admin Dose 5 MG; Start 01/12/17 at 20:00 Quetiapine Fumarate 50 mg 50 mg BID PO Last administered on 01/23/17 08:33; Admin Dose 50 MG; Start 01/15/17 at 21:00 Meropenem (Merrem 500 Mg/ 100 ml (Pmx)) 100 ml @ 200 mls/hr Q24H IVPB Last administered on 01/22/17 20:41; Admin Dose 200 MLS/HR; Start 01/15/17 at 21:00 Cyanocobalamin (Vitamin B12 Inj) 1,000 mcg Q7D IM ; Start 01/30/17 at 09:00 Tamsulosin HCl 0.4 mg 0.4 mg HS PO ; Start 01/23/17 at 21:00 Vancomycin HCl/ Sodium Chloride (Vancocin/NS) 250 ml @ 83.333 mls/ hr 17 IVPB Last administered on 01/23/17 18:43; Admin Dose 83.333 MLS/HR; Start 01/23/17 at 17:00; Stop 01/23/17 at 23:00 MADELYN MIRANDA MD Jan 23, 2017 21:09
[2017-01-23] MEDS: MEROPENEM 500 MG/100 ML (PMX) 100 ML IVPB SCH (22:10)
[2017-01-24 06:21] LABS: CALCIUM 8.3 mg/dl (8.4-10.2); CREATININE 3.64 mg/dl (0.61-1.24)
[2017-01-24 08:03] VITALS: BP 131/61; RESP 18
[2017-01-24] MEDS: AMLODIPINE 5 MG TAB PO SCH ×2 (09:00→21:20)
[2017-01-24] MEDS: QUETIAPINE 25 MG TAB PO SCH ×2 (09:00→21:19)
[2017-01-24] MEDS: FAMOTIDINE 20 MG TAB PO SCH (09:00)
[2017-01-24] MEDS: POLYETHYLENE GLYCOL 17 GM PACKET PO SCH ×2 (09:00→21:00)
[2017-01-24] MEDS: HEPARIN 5,000 UNIT/0.5 ML VIAL SC SCH ×2 (09:00→21:23)
[2017-01-24] MEDS: METOPROLOL 50 MG TAB PO SCH ×2 (09:00→21:21)
--- NOTE | 2017-01-24 14:57 | PN ---
DATE: 01/24/2017 SUBJECTIVE: History of urinary retention; however, the patient states that he is voiding. He denie s any dysuria. OBJECTIVE: VITAL SIGNS: His temperature is 98.5, blood pressure 131/61, pulse is 77, respiration 18. ABDOMEN: Soft. Bladder is not distended and the patient has been voiding in the urinal, and the ur ine is clear. They attempted to dialyze him yesterday but he became hypotensive, so they stopped it . LABORATORIES: The BUN today is, creatinine 3.64, sodium 138, potassium 4.0, chloride 108, CO2 25. IMPRESSION: The patient does have a history of prostate cancer. He is status post radical prostate ctomy, has no obstruction, and has had urinary retention most likely because of being bedridden and also medications. At the present, the patient is voiding and his PVR has been low and does not requ edwin any straight catheterization. PLAN: Continue present treatment. Dictated By: LAUREN GIL/RIKA Conf#: [id number] DID#: [id number]
[2017-01-24 16:36] LABS: INR 1.2; PROTIME 15.3 Sec (12.2-14.2); PT RATIO 1.2
[2017-01-24 16:37] LABS: PARTIAL THROMBOPLASTIN TIME 38.3 Sec (25.0-35.0)
--- NOTE | 2017-01-24 16:37 | PN ---
Date/Time of Note Date/Time of Note DATE: 01/24/17 TIME: 16:33 Assessment/Plan VTE Prophylaxis VTE Prophylaxis Intervention: heparin Lines/Catheters IV Catheter Type (from Nrs): perma cath Urinary Cath still in place: No Assessment/Plan Chief Complaint/Hosp Course Assessment/Plan 1. Status post sepsis UTI with Proteus mirabilis. improved. ABX per ID 2. T11-T12 osteomyelitis and diskitis. cont abx per ID. will need long term care social worker abx. no surgical intervention at this time per neuro surgeon 3. CKD. s/p right groin perma cath placement. continue HD per quick technician. monitor for hypotension 4. Essential hypertension. Continue antihypertensives and adjust as needed 5. History of alcohol abuse. Cessation was advised. 6. History of atrial fibrillation. Stable at present. Continue on beta- anjelica and amiodarone 7. Urinary retention. On Mccormack catheter per urology recommendations DVT [place]ox: SCDs and heparin Disposition and plan: Defer IR needle aspiration biopsy 2 ID consult. Continue antibiotics. Follow-up with regimen. Will plan to DC when cleared by consultants Discussed plan of care with Dr. Harman Problems: Subjective 24 Hr Interval Summary Free Text/Dictation Resting at this time. 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, nl mental status, nl speech Results Result Diagram: 01/24/17 0415 Results 24 hrs Laboratory Tests Test 01/24/17 04:15 Sodium Level 138 Potassium Level 4.0 Chloride Level 108 Carbon Dioxide Level 25 Anion Gap 9 Blood Urea Nitrogen 15 Creatinine 3.64 H Glucose Level 77 Calcium Level 8.3 L Medications Medications Current Medications Ondansetron HCl (Zofran Inj) 4 mg Q6H PRN IV NAUSEA AND/OR VOMITING Last administered on 12/24/16 12:08; Admin Dose 4 MG; Start 12/10/16 at 18:00 Magnesium Hydroxide (Milk Of Mag) 30 ml DAILY PRN PO CONSTIPATION Last administered on 12/29/16 08:56; Admin Dose 30 ML; Start 12/10/16 at 18:00 Bisacodyl (Dulcolax) 5 mg DAILY PRN PO CONSTIPATION; Start 12/10/16 at 18:00 Famotidine (Pepcid) 20 mg DAILY PO Last administered on 01/23/17 08:33; Admin Dose 20 MG; Start 12/11/16 at 09:00 Atorvastatin Calcium (Lipitor) 10 mg DAILY@21 PO Last administered on 01/14/17 21:49; Admin Dose 10 MG; Start 12/10/16 at 21:00; Status Future Hold Heparin Sodium (Porcine) (Heparin (5000 Units/0.5 ml)) 5,000 unit BID SC Last administered on 01/23/17 21:01; Admin Dose 5,000 UNIT; Start 12/11/16 at 21:00; Status Future hold Metoprolol Tartrate (Lopressor) 50 mg BID PO Last administered on 01/23/17 20: 59; Admin Dose 50 MG; Start 12/17/16 at 21:00 Polyethylene Glycol (Miralax) 17 gm BID PO Last administered on 01/22/17 20:41 ; Admin Dose 17 GM; Start 12/21/16 at 21:00 Miscellaneous Information 1 ea NOTE XX ; Start 12/21/16 at 17:30 Glucose (Glutose) 15 gm Q15M PRN PO DECREASED GLUCOSE; Start 12/21/16 at 17:30 Glucose (Glutose) 22.5 gm Q15M PRN PO DECREASED GLUCOSE; Start 12/21/16 at 17: 30 Dextrose (D50w Syringe) 25 ml Q15M PRN IV DECREASED GLUCOSE; Start 12/21/16 at 17:30 Dextrose (D50w Syringe) 50 ml Q15M PRN IV DECREASED GLUCOSE; Start 12/21/16 at 17:30 Glucagon (Glucagen) 1 mg Q15M PRN IM DECREASED GLUCOSE; Start 12/21/16 at 17:30 Glucose (Glutose) 15 gm Q15M PRN BUCCAL DECREASED GLUCOSE; Start 12/21/16 at 17 :30 Amlodipine Besylate (Norvasc) 5 mg BID PO Last administered on 01/23/17 08:34 ; Admin Dose 5 MG; Start 12/27/16 at 21:00 Acetaminophen/ Hydrocodone Bitart ([place] (5/325)) 1 tab Q4H PRN PO pain Last administered on 01/23/17 08:32; Admin Dose 1 TAB; Start 01/08/17 at 14:30 IV Flush (NS 10 ml) 10 ml PRN PRN IV IV PROTOCOL; Start 01/11/17 at 16:00 Haloperidol (Haldol) 5 mg Q4 PRN IM Anxiety Last administered on 01/15/17 13: 37; Admin Dose 5 MG; Start 01/12/17 at 20:00 Quetiapine Fumarate 50 mg 50 mg BID PO Last administered on 01/23/17 20:59; Admin Dose 50 MG; Start 01/15/17 at 21:00 Meropenem (Merrem 500 Mg/ 100 ml (Pmx)) 100 ml @ 200 mls/hr Q24H IVPB Last administered on 01/23/17 22:10; Admin Dose 200 MLS/HR; Start 01/15/17 at 21:00 Cyanocobalamin (Vitamin B12 Inj) 1,000 mcg Q7D IM ; Start 01/30/17 at 09:00 Tamsulosin HCl (Flomax) 0.4 mg HS PO Last administered on 01/23/17 20:58; Admin Dose 0.4 MG; Start 01/23/17 at 21:00 SANJAY ANDREA Jan 24, 2017 16:37
--- NOTE | 2017-01-24 17:20 | CONS ---
Date/Time of Note Date/Time of Note DATE: 01/24/17 TIME: 17:17 Assessment/Plan Assessment/Plan Additional Assessment/Plan 1. Acute kidney injury on CKD progressing worsening- started on HD during this admission 2. 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 Possible history of chronic kidney disease secondary to hypertensive nephrosclerosis. 5. History of hypertension. 6. History of gout. 7. History of hyperlipidemia. 8. Atrial fibrillation, rate controlled. 9. History of alcohol abuse. 10. Thrombocytopenia secondary to alcohol abuse. 11. sepsis due to UTI and bacteremia with Blood cx and urine Cx growing proteus - follow up blood cx negative 12. Moderate pleural effusion s/p Throacentesis 12/31/2016- 2.21 L Fluid removed PLAN: started on HD again due to persistent uremia and encephalopathy HD tomorrow then pt will be on HD , , tuesday s/p Right femoral permacath placement S/p Neurosurgeon evaluation - possible OM of spine- pt refuseed Biopsy of spine , will need 6 weeks fo IV abx on IV abx, ID following will follow up Consultation Date/Type/Reason Admit Date/Time December 10, 2016 at 16:57 Type of Consultation: NEPHROLOGY Referring Provider: NETTA SALOMON MD 24 HR Interval Summary Free Text/Dictation pt is alert, awake, communicative, BP stable, Plan for HD tomorrow, he is set up outpatietn HD at [facility] Exam/Review of Systems Vital Signs Vitals Vital Signs Date Time Temp Pulse Resp B/P Pulse Ox O2 Delivery O2 Flow Rate FiO2 01/24/17 08:03 98.5 77 18 131/61 98 01/23/17 12:05 Room Air Intake and Output 01/23/17 01/23/17 01/24/17 15:00 23:00 07:00 Intake Total 690 ml 120 ml Output Total 150 ml 750 ml Balance 540 ml -630 ml Exam GENERAL: This is well-developed, chronically ill-appearing, elderly man who is in no distress. HEENT: Head atraumatic, normocephalic. Sclerae anicteric. Buccal mucosa dry. NECK: Supple. CHEST: Rise symmetrical. Breath sounds diminished to bases. HEART: S1, S2. ABDOMEN: Soft. Bowel tones present., Right femoral permacath present EXTREMITIES: No cyanosis. Results Result Diagram: 6/19/17 0415 Results 24 hrs Laboratory Tests Test 01/24/17 04:15 01/24/17 15:57 Sodium Level 138 Potassium Level 4.0 Chloride Level 108 Carbon Dioxide Level 25 Anion Gap 9 Blood Urea Nitrogen 15 Creatinine 3.64 H Glucose Level 77 Calcium Level 8.3 L Prothrombin Time 15.3 H Prothrombin Time Ratio 1.2 INR International Normalized Ratio 1.20 Activated Partial Thromboplast Time 38.3 H Medications Medications Current Medications Ondansetron HCl (Zofran Inj) 4 mg Q6H PRN IV NAUSEA AND/OR VOMITING Last administered on 12/24/16 12:08; Admin Dose 4 MG; Start 12/10/16 at 18:00 Magnesium Hydroxide (Milk Of Mag) 30 ml DAILY PRN PO CONSTIPATION Last administered on 12/29/16 08:56; Admin Dose 30 ML; Start 12/10/16 at 18:00 Bisacodyl (Dulcolax) 5 mg DAILY PRN PO CONSTIPATION; Start 12/10/16 at 18:00 Famotidine (Pepcid) 20 mg DAILY PO Last administered on 01/23/17 08:33; Admin Dose 20 MG; Start 12/11/16 at 09:00 Atorvastatin Calcium (Lipitor) 10 mg DAILY@21 PO Last administered on 01/14/17 21:49; Admin Dose 10 MG; Start 12/10/16 at 21:00; Status Future Hold Heparin Sodium (Porcine) (Heparin (5000 Units/0.5 ml)) 5,000 unit BID SC Last administered on 01/23/17 21:01; Admin Dose 5,000 UNIT; Start 12/11/16 at 21:00; Status Future hold Metoprolol Tartrate (Lopressor) 50 mg BID PO Last administered on 01/23/17 20: 59; Admin Dose 50 MG; Start 12/17/16 at 21:00 Polyethylene Glycol (Miralax) 17 gm BID PO Last administered on 01/22/17 20:41 ; Admin Dose 17 GM; Start 12/21/16 at 21:00 Miscellaneous Information 1 ea NOTE XX ; Start 12/21/16 at 17:30 Glucose (Glutose) 15 gm Q15M PRN PO DECREASED GLUCOSE; Start 12/21/16 at 17:30 Glucose (Glutose) 22.5 gm Q15M PRN PO DECREASED GLUCOSE; Start 12/21/16 at 17: 30 Dextrose (D50w Syringe) 25 ml Q15M PRN IV DECREASED GLUCOSE; Start 12/21/16 at 17:30 Dextrose (D50w Syringe) 50 ml Q15M PRN IV DECREASED GLUCOSE; Start 12/21/16 at 17:30 Glucagon (Glucagen) 1 mg Q15M PRN IM DECREASED GLUCOSE; Start 12/21/16 at 17:30 Glucose (Glutose) 15 gm Q15M PRN BUCCAL DECREASED GLUCOSE; Start 12/21/16 at 17 :30 Amlodipine Besylate (Norvasc) 5 mg BID PO Last administered on 01/23/17 08:34 ; Admin Dose 5 MG; Start 12/27/16 at 21:00 Acetaminophen/ Hydrocodone Bitart ([place] (5/325)) 1 tab Q4H PRN PO pain Last administered on 01/23/17 08:32; Admin Dose 1 TAB; Start 01/08/17 at 14:30 IV Flush (NS 10 ml) 10 ml PRN PRN IV IV PROTOCOL; Start 01/11/17 at 16:00 Haloperidol (Haldol) 5 mg Q4 PRN IM Anxiety Last administered on 01/15/17 13: 37; Admin Dose 5 MG; Start 01/12/17 at 20:00 Quetiapine Fumarate 50 mg 50 mg BID PO Last administered on 01/23/17 20:59; Admin Dose 50 MG; Start 01/15/17 at 21:00 Meropenem (Merrem 500 Mg/ 100 ml (Pmx)) 100 ml @ 200 mls/hr Q24H IVPB Last administered on 01/23/17 22:10; Admin Dose 200 MLS/HR; Start 01/15/17 at 21:00 Cyanocobalamin (Vitamin B12 Inj) 1,000 mcg Q7D IM ; Start 01/30/17 at 09:00 Tamsulosin HCl (Flomax) 0.4 mg HS PO Last administered on 01/23/17 20:58; Admin Dose 0.4 MG; Start 01/23/17 at 21:00 MADELYN MIRANDA MD Jan 24, 2017 17:20
[2017-01-24 20:06] VITALS: BP 130/62; RESP 18
[2017-01-24] MEDS: MEROPENEM 500 MG/100 ML (PMX) 100 ML IVPB SCH (21:16)
[2017-01-24] MEDS: TAMSULOSIN (SR) 0.4 MG CAP PO SCH (21:19)
--- NOTE | 2017-01-24 21:24 | CONS ---
Date/Time of Note Date/Time of Note DATE: 01/24/17 TIME: 21:22 Assessment/Plan Assessment/Plan Chief Complaint/Hosp Course SUBJECTIVE: No events. No fevers. Sleeping, looks comfortable MICROBIOLOGY: Blood cultures are negative. C dif neg ANTIMICROBIALS: Vancomycin, Merrem. INDWELLINGS: R femoral Norris placed on 01/22/2017 and PICC line placed on 01/2017. PHYSICAL EXAMINATION: GENERAL: This is well-developed, chronically ill-appearing, elderly man who is in no distress. HEENT: Head atraumatic, normocephalic. Sclerae anicteric. Buccal mucosa dry. NECK: Supple. CHEST: Rise symmetrical. Breath sounds diminished to bases. HEART: S1, S2. ABDOMEN: Soft. Bowel tones present. EXTREMITIES: No cyanosis. ASSESSMENT: 1. 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 2. Status post Proteus mirabilis urinary tract infection with bacteremia. 3. Status post pneumonia. 4. Pleural effusion. 5. Acute on chronic kidney disease, hemodialysis dependent. 6. Atrial fibrillation. 7. History of ETOH abuse. 8. ALLERGY TO PENICILLIN. PLAN: The patient remains stable. Continue broad spectrum coverage for 6 to 8 weeks with repeat MRI and ortho re-evaluation prior discontinuation of therapy. Continue probiotics DW staff Problems: Consultation Date/Type/Reason Admit Date/Time December 10, 2016 at 16:57 Type of Consultation: ID Referring Provider: NETTA SALOMON MD Exam/Review of Systems Vital Signs Vitals Vital Signs Date Time Temp Pulse Resp B/P Pulse Ox O2 Delivery O2 Flow Rate FiO2 01/24/17 20:06 97.0 81 18 130/62 99 01/23/17 12:05 Room Air Intake and Output 01/23/17 01/23/17 01/24/17 15:00 23:00 07:00 Intake Total 690 ml 120 ml Output Total 150 ml 750 ml Balance 540 ml -630 ml Results Result Diagram: 01/24/17 0415 Results 24 hrs Laboratory Tests Test 01/24/17 04:15 01/24/17 15:57 Sodium Level 138 Potassium Level 4.0 Chloride Level 108 Carbon Dioxide Level 25 Anion Gap 9 Blood Urea Nitrogen 15 Creatinine 3.64 H Glucose Level 77 Calcium Level 8.3 L Prothrombin Time 15.3 H Prothrombin Time Ratio 1.2 INR International Normalized Ratio 1.20 Activated Partial Thromboplast Time 38.3 H Medications Medications Current Medications Ondansetron HCl (Zofran Inj) 4 mg Q6H PRN IV NAUSEA AND/OR VOMITING Last administered on 12/24/16 12:08; Admin Dose 4 MG; Start 12/10/16 at 18:00 Magnesium Hydroxide (Milk Of Mag) 30 ml DAILY PRN PO CONSTIPATION Last administered on 12/29/16 08:56; Admin Dose 30 ML; Start 12/10/16 at 18:00 Bisacodyl (Dulcolax) 5 mg DAILY PRN PO CONSTIPATION; Start 12/10/16 at 18:00 Famotidine (Pepcid) 20 mg DAILY PO Last administered on 01/23/17 08:33; Admin Dose 20 MG; Start 12/11/16 at 09:00 Atorvastatin Calcium (Lipitor) 10 mg DAILY@21 PO Last administered on 01/14/17 21:49; Admin Dose 10 MG; Start 12/10/16 at 21:00; Status Future Hold Heparin Sodium (Porcine) (Heparin (5000 Units/0.5 ml)) 5,000 unit BID SC Last administered on 01/23/17 21:01; Admin Dose 5,000 UNIT; Start 12/11/16 at 21:00; Status Future hold Metoprolol Tartrate (Lopressor) 50 mg BID PO Last administered on 01/23/17 20: 59; Admin Dose 50 MG; Start 12/17/16 at 21:00 Polyethylene Glycol (Miralax) 17 gm BID PO Last administered on 01/22/17 20:41 ; Admin Dose 17 GM; Start 12/21/16 at 21:00 Miscellaneous Information 1 ea NOTE XX ; Start 12/21/16 at 17:30 Glucose (Glutose) 15 gm Q15M PRN PO DECREASED GLUCOSE; Start 12/21/16 at 17:30 Glucose (Glutose) 22.5 gm Q15M PRN PO DECREASED GLUCOSE; Start 12/21/16 at 17: 30 Dextrose (D50w Syringe) 25 ml Q15M PRN IV DECREASED GLUCOSE; Start 12/21/16 at 17:30 Dextrose (D50w Syringe) 50 ml Q15M PRN IV DECREASED GLUCOSE; Start 12/21/16 at 17:30 Glucagon (Glucagen) 1 mg Q15M PRN IM DECREASED GLUCOSE; Start 12/21/16 at 17:30 Glucose (Glutose) 15 gm Q15M PRN BUCCAL DECREASED GLUCOSE; Start 12/21/16 at 17 :30 Amlodipine Besylate (Norvasc) 5 mg BID PO Last administered on 01/23/17 08:34 ; Admin Dose 5 MG; Start 12/27/16 at 21:00 Acetaminophen/ Hydrocodone Bitart ([place] (5/325)) 1 tab Q4H PRN PO pain Last administered on 01/23/17 08:32; Admin Dose 1 TAB; Start 01/08/17 at 14:30 IV Flush (NS 10 ml) 10 ml PRN PRN IV IV PROTOCOL; Start 01/11/17 at 16:00 Haloperidol (Haldol) 5 mg Q4 PRN IM Anxiety Last administered on 01/15/17 13: 37; Admin Dose 5 MG; Start 01/12/17 at 20:00 Quetiapine Fumarate 50 mg 50 mg BID PO Last administered on 01/23/17 20:59; Admin Dose 50 MG; Start 01/15/17 at 21:00 Meropenem (Merrem 500 Mg/ 100 ml (Pmx)) 100 ml @ 200 mls/hr Q24H IVPB Last administered on 01/23/17 22:10; Admin Dose 200 MLS/HR; Start 01/15/17 at 21:00 Cyanocobalamin (Vitamin B12 Inj) 1,000 mcg Q7D IM ; Start 01/30/17 at 09:00 Tamsulosin HCl (Flomax) 0.4 mg HS PO Last administered on 01/23/17 20:58; Admin Dose 0.4 MG; Start 01/23/17 at 21:00 CHERRIE JAUREGUI NP Jan 24, 2017 21:24
--- NOTE | 2017-01-24 21:25 | PN ---
Date/Time of Note Date/Time of Note DATE: 01/24/17 TIME: 21:23 Assessment/Plan Lines/Catheters IV Catheter Type (from [facility]): PERMA CATH M[place]orm[place] in Place (from [facility]): No Assessment/Plan Chief Complaint/Hosp Course -Chronic kidney disease, impending end-stage renal: S/P Urgent Norris catheter placement , S/P Right CFV perm catheter placement -Upon bilateral upper extremity vein mapping patient has multiple options for possible fistula creation. -Optimize vascular status (BP meds, diet, nutrition, exercise, sugar control, antiplatelets). -Discussed programs for alcohol cessation and smoking cessation. -Discussed findings, plan and management with the primary service and his sister -Thank you for allowing us to partake in the care of your patient. Please call with any questions. Problems: Subjective 24 Hr Interval Summary no new vascular events overnight, Exam/Review of Systems Vital Signs Vitals Vital Signs Date Time Temp Pulse Resp B/P Pulse Ox O2 Delivery O2 Flow Rate FiO2 01/24/17 20:06 97.0 81 18 130/62 99 01/23/17 12:05 Room Air Intake and Output 01/23/17 01/23/17 01/24/17 15:00 23:00 07:00 Intake Total 690 ml 120 ml Output Total 150 ml 750 ml Balance 540 ml -630 ml Exam Free Text/Dictation GENERAL: Patient awake, otherwise unable to be oriented to time and place. PULMONARY: Bilateral crackles at the bases. CARDIOVASCULAR: S1, S2 present. Irregularly irregular. ABDOMEN: Soft, nontender, nondistended. Bowel sounds positive. EXTREMITIES: Right lower extremity palpable femoral pulse, nonpalpable pedal pulse. Motor, sensory seems to be intact. Capillary refill 3 seconds. Right groin perm cath intact and functional Left lower extremity palpable femoral pulse, nonpalpable pedal pulse. Motor and sensory seems to be intact. Capillary refill 3 seconds. Results Result Diagram: 01/24/17 0415 JANIS ROBERTO MD Jan 24, 2017 21:25
[2017-01-25] VITALS (7 sets, daily range): BP systolic 99–136; BP diastolic 54–68; PULSE 82–90; RESP 18–19
[2017-01-25] MEDS: L ACIDOPHIL/B LACTIS/B LONGUM CAPSULE PO SCH ×2 (08:29→21:40)
[2017-01-25] MEDS: METOPROLOL 50 MG TAB PO SCH ×2 (08:29→21:00)
[2017-01-25] MEDS: FAMOTIDINE 20 MG TAB PO SCH (08:30)
[2017-01-25] MEDS: QUETIAPINE 25 MG TAB PO SCH ×2 (08:30→21:25)
[2017-01-25] MEDS: AMLODIPINE 5 MG TAB PO SCH ×2 (08:30→21:00)
[2017-01-25] MEDS: POLYETHYLENE GLYCOL 17 GM PACKET PO SCH ×2 (08:30→21:26)
[2017-01-25] MEDS: HEPARIN 5,000 UNIT/0.5 ML VIAL SC SCH ×2 (08:31→21:38)
[2017-01-25 10:54] LABS: CALCIUM 8.6 mg/dl (8.4-10.2); CREATININE 2.59 mg/dl (0.61-1.24); POTASSIUM 3.4 mmol/L (3.5-5.1)
--- NOTE | 2017-01-25 12:46 | CONS ---
Date/Time of Note Date/Time of Note DATE: 01/25/17 TIME: 12:45 Assessment/Plan Assessment/Plan Chief Complaint/Hosp Course SUBJECTIVE: No events. No fevers. Sleeping, looks comfortable MICROBIOLOGY: Blood cultures are negative. C dif neg ANTIMICROBIALS: Vancomycin, Merrem. INDWELLINGS: R femoral Norris placed on 01/22/2017 and PICC line placed on 01/2017. PHYSICAL EXAMINATION: GENERAL: This is well-developed, chronically ill-appearing, elderly man who is in no distress. HEENT: Head atraumatic, normocephalic. Sclerae anicteric. Buccal mucosa dry. NECK: Supple. CHEST: Rise symmetrical. Breath sounds diminished to bases. HEART: S1, S2. ABDOMEN: Soft. Bowel tones present. EXTREMITIES: No cyanosis. ASSESSMENT: 1. 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 2. Status post Proteus mirabilis urinary tract infection with bacteremia. 3. Status post pneumonia. 4. Pleural effusion. 5. Acute on chronic kidney disease, hemodialysis dependent. 6. Atrial fibrillation. 7. History of ETOH abuse. 8. ALLERGY TO PENICILLIN. PLAN: The patient remains stable. Continue broad spectrum coverage for 6 to 8 weeks with repeat MRI and ortho re-evaluation prior discontinuation of therapy. Continue probiotics DW staff Problems: Consultation Date/Type/Reason Admit Date/Time December 10, 2016 at 16:57 Type of Consultation: ID Referring Provider: NETTA SALOMON MD Exam/Review of Systems Vital Signs Vitals Vital Signs Date Time Temp Pulse Resp B/P Pulse Ox O2 Delivery O2 Flow Rate FiO2 01/25/17 08:09 98.9 75 19 99/54 100 01/23/17 12:05 Room Air Intake and Output 01/24/17 01/24/17 01/25/17 15:00 23:00 07:00 Intake Total 100 ml 200 ml Output Total 800 ml 500 ml Balance -700 ml -300 ml Results Result Diagram: 01/25/17 0950 Results 24 hrs Laboratory Tests Test 01/24/17 15:57 01/25/17 09:50 Prothrombin Time 15.3 H Prothrombin Time Ratio 1.2 INR International Normalized Ratio 1.20 Activated Partial Thromboplast Time 38.3 H Sodium Level 144 Potassium Level 3.4 L Chloride Level 108 Carbon Dioxide Level 28 Anion Gap 11 Blood Urea Nitrogen 9 Creatinine 2.59 #H Glucose Level 110 Calcium Level 8.6 Medications Medications Current Medications Ondansetron HCl (Zofran Inj) 4 mg Q6H PRN IV NAUSEA AND/OR VOMITING Last administered on 12/24/16 12:08; Admin Dose 4 MG; Start 12/10/16 at 18:00 Magnesium Hydroxide (Milk Of Mag) 30 ml DAILY PRN PO CONSTIPATION Last administered on 12/29/16 08:56; Admin Dose 30 ML; Start 12/10/16 at 18:00 Bisacodyl (Dulcolax) 5 mg DAILY PRN PO CONSTIPATION; Start 12/10/16 at 18:00 Famotidine (Pepcid) 20 mg DAILY PO Last administered on 01/23/17 08:33; Admin Dose 20 MG; Start 12/11/16 at 09:00 Atorvastatin Calcium (Lipitor) 10 mg DAILY@21 PO Last administered on 01/14/17 21:49; Admin Dose 10 MG; Start 12/10/16 at 21:00; Status Future Hold Heparin Sodium (Porcine) (Heparin (5000 Units/0.5 ml)) 5,000 unit BID SC Last administered on 01/24/17 21:23; Admin Dose 5,000 UNIT; Start 12/11/16 at 21:00; Status Future hold Metoprolol Tartrate (Lopressor) 50 mg BID PO Last administered on 01/24/17 21: 21; Admin Dose 50 MG; Start 12/17/16 at 21:00 Polyethylene Glycol (Miralax) 17 gm BID PO Last administered on 01/22/17 20:41 ; Admin Dose 17 GM; Start 12/21/16 at 21:00 Miscellaneous Information 1 ea NOTE XX ; Start 12/21/16 at 17:30 Glucose (Glutose) 15 gm Q15M PRN PO DECREASED GLUCOSE; Start 12/21/16 at 17:30 Glucose (Glutose) 22.5 gm Q15M PRN PO DECREASED GLUCOSE; Start 12/21/16 at 17: 30 Dextrose (D50w Syringe) 25 ml Q15M PRN IV DECREASED GLUCOSE; Start 12/21/16 at 17:30 Dextrose (D50w Syringe) 50 ml Q15M PRN IV DECREASED GLUCOSE; Start 12/21/16 at 17:30 Glucagon (Glucagen) 1 mg Q15M PRN IM DECREASED GLUCOSE; Start 12/21/16 at 17:30 Glucose (Glutose) 15 gm Q15M PRN BUCCAL DECREASED GLUCOSE; Start 12/21/16 at 17 :30 Amlodipine Besylate (Norvasc) 5 mg BID PO Last administered on 01/24/17 21:20 ; Admin Dose 5 MG; Start 12/27/16 at 21:00 Acetaminophen/ Hydrocodone Bitart ([place] (5/325)) 1 tab Q4H PRN PO pain Last administered on 01/23/17 08:32; Admin Dose 1 TAB; Start 01/08/17 at 14:30 IV Flush (NS 10 ml) 10 ml PRN PRN IV IV PROTOCOL; Start 01/11/17 at 16:00 Haloperidol (Haldol) 5 mg Q4 PRN IM Anxiety Last administered on 01/15/17 13: 37; Admin Dose 5 MG; Start 01/12/17 at 20:00 Quetiapine Fumarate 50 mg 50 mg BID PO Last administered on 01/24/17 21:19; Admin Dose 50 MG; Start 01/15/17 at 21:00 Meropenem (Merrem 500 Mg/ 100 ml (Pmx)) 100 ml @ 200 mls/hr Q24H IVPB Last administered on 01/24/17 21:16; Admin Dose 200 MLS/HR; Start 01/15/17 at 21:00 Cyanocobalamin (Vitamin B12 Inj) 1,000 mcg Q7D IM ; Start 01/30/17 at 09:00 Tamsulosin HCl (Flomax) 0.4 mg HS PO Last administered on 01/24/17 21:19; Admin Dose 0.4 MG; Start 01/23/17 at 21:00 Lactobacillus Acidophilus (Florajen3 Capsule) 1 each BID PO ; Start 01/25/17 at 09:00 Miscellaneous Information (*Rx Drug Level Order Reminder*) VANCO RANDOM LEVEL... ONCE ONCE XX ; Start 01/26/17 at 05:00; Stop 01/26/17 at 05:01 CHERRIE JAUREGUI NP Jan 25, 2017 12:45
--- NOTE | 2017-01-25 13:01 | PN ---
DATE: 01/25/2017 INTERNAL MEDICINE FOLLOWUP SUBJECTIVE: Chart reviewed. No significant events noted. The patient currently saturating 100%. PHYSICAL EXAMINATION: VITAL SIGNS: Blood pressure 99/54, pulse 75, respirations 19, temperature 98.9. HEENT: Pupils are equal and reactive to light. Anicteric sclerae. NECK: Supple, no JVD noted, no cervical lymphadenopathy noted, no carotid bruits heard. LUNGS: Fair breath sounds bilaterally. CARDIOVASCULAR: S1, S2 normal. ABDOMEN: Soft, nontender. No organomegaly or masses noted. EXTREMITIES: No clubbing or cyanosis noted. NEUROLOGIC: No changes. LABORATORIES: Sodium 144, potassium 3.4, chloride 108, CO2 28, BUN 9, creatinine 2.59, glucose 110. IMPRESSION: 1. Status post sepsis with urinary tract infection. 2. T11-T12 osteomyelitis and diskitis. 3. End-stage renal disease, on hemodialysis per nephrology. 4. History of hypertension. 5. History of alcohol abuse. 6. History of atrial fibrillation. 7. Urinary retention. RECOMMENDATIONS: 1. Continue antibiotics per ID recommendations. 2. The patient will need prolonged antibiotics and subsequent MRI for followup. 3. Consultants noted. 4. Discharge planning in process. Dictated By: VALDEMAR ERICKSON MD, MA/RIKA Conf#: [id number] DID#: [id number]
--- NOTE | 2017-01-25 13:33 | CONS ---
Date/Time of Note Date/Time of Note DATE: 01/24/17 TIME: 13:32 Assessment/Plan Assessment/Plan Additional Assessment/Plan Acute kidney injury with intermittent hemodialysis Preserved ejection fraction Status post fall Vertebral osteomyelitis Sepsis with bacteremia Paroxysmal atrial fibrillation, currently sinus rhythm History of hypertension Recent UTI Alcohol abuse -Remains in regular rhythm. Continue beta-blockers heart rate and blood pressure permits. Fluid management via hemodialysis as per our nephrology colleagues. Consultation Date/Type/Reason Admit Date/Time December 10, 2016 at 16:57 Type of Consultation: cv Referring Provider: NETTA SALOMON MD 24 HR Interval Summary Free Text/Dictation Patient denies shortness of breath, chest pain Exam/Review of Systems Vital Signs Vitals Vital Signs Date Time Temp Pulse Resp B/P Pulse Ox O2 Delivery O2 Flow Rate FiO2 01/25/17 08:09 98.9 75 19 99/54 100 01/23/17 12:05 Room Air Intake and Output 01/24/17 01/24/17 01/25/17 15:00 23:00 07:00 Intake Total 100 ml 200 ml Output Total 800 ml 500 ml Balance -700 ml -300 ml Exam No apparent distress Constitutional: alert, oriented Head: normocephalic Respiratory: other (Coarse breath sounds bilaterally, no wheezing) Cardiovascular: other (S1-S2 heard), regular rate and rhythm Gastrointestinal: bowel sounds, non-tender, soft Extremities: edema (Trace) Results Result Diagram: 01/25/17 0950 Results 24 hrs Laboratory Tests Test 01/24/17 15:57 01/25/17 09:50 Prothrombin Time 15.3 H Prothrombin Time Ratio 1.2 INR International Normalized Ratio 1.20 Activated Partial Thromboplast Time 38.3 H Sodium Level 144 Potassium Level 3.4 L Chloride Level 108 Carbon Dioxide Level 28 Anion Gap 11 Blood Urea Nitrogen 9 Creatinine 2.59 #H Glucose Level 110 Calcium Level 8.6 Medications Medications Current Medications Ondansetron HCl (Zofran Inj) 4 mg Q6H PRN IV NAUSEA AND/OR VOMITING Last administered on 12/24/16 12:08; Admin Dose 4 MG; Start 12/10/16 at 18:00 Magnesium Hydroxide (Milk Of Mag) 30 ml DAILY PRN PO CONSTIPATION Last administered on 12/29/16 08:56; Admin Dose 30 ML; Start 12/10/16 at 18:00 Bisacodyl (Dulcolax) 5 mg DAILY PRN PO CONSTIPATION; Start 12/10/16 at 18:00 Famotidine (Pepcid) 20 mg DAILY PO Last administered on 01/23/17 08:33; Admin Dose 20 MG; Start 12/11/16 at 09:00 Atorvastatin Calcium (Lipitor) 10 mg DAILY@21 PO Last administered on 01/14/17 21:49; Admin Dose 10 MG; Start 12/10/16 at 21:00; Status Future Hold Heparin Sodium (Porcine) (Heparin (5000 Units/0.5 ml)) 5,000 unit BID SC Last administered on 01/24/17 21:23; Admin Dose 5,000 UNIT; Start 12/11/16 at 21:00; Status Future hold Metoprolol Tartrate (Lopressor) 50 mg BID PO Last administered on 01/24/17 21: 21; Admin Dose 50 MG; Start 12/17/16 at 21:00 Polyethylene Glycol (Miralax) 17 gm BID PO Last administered on 01/22/17 20:41 ; Admin Dose 17 GM; Start 12/21/16 at 21:00 Miscellaneous Information 1 ea NOTE XX ; Start 12/21/16 at 17:30 Glucose (Glutose) 15 gm Q15M PRN PO DECREASED GLUCOSE; Start 12/21/16 at 17:30 Glucose (Glutose) 22.5 gm Q15M PRN PO DECREASED GLUCOSE; Start 12/21/16 at 17: 30 Dextrose (D50w Syringe) 25 ml Q15M PRN IV DECREASED GLUCOSE; Start 12/21/16 at 17:30 Dextrose (D50w Syringe) 50 ml Q15M PRN IV DECREASED GLUCOSE; Start 12/21/16 at 17:30 Glucagon (Glucagen) 1 mg Q15M PRN IM DECREASED GLUCOSE; Start 12/21/16 at 17:30 Glucose (Glutose) 15 gm Q15M PRN BUCCAL DECREASED GLUCOSE; Start 12/21/16 at 17 :30 Amlodipine Besylate (Norvasc) 5 mg BID PO Last administered on 01/24/17 21:20 ; Admin Dose 5 MG; Start 12/27/16 at 21:00 Acetaminophen/ Hydrocodone Bitart ([place] (5/325)) 1 tab Q4H PRN PO pain Last administered on 01/23/17 08:32; Admin Dose 1 TAB; Start 01/08/17 at 14:30 IV Flush (NS 10 ml) 10 ml PRN PRN IV IV PROTOCOL; Start 01/11/17 at 16:00 Haloperidol (Haldol) 5 mg Q4 PRN IM Anxiety Last administered on 01/15/17 13: 37; Admin Dose 5 MG; Start 01/12/17 at 20:00 Quetiapine Fumarate 50 mg 50 mg BID PO Last administered on 01/24/17 21:19; Admin Dose 50 MG; Start 01/15/17 at 21:00 Meropenem (Merrem 500 Mg/ 100 ml (Pmx)) 100 ml @ 200 mls/hr Q24H IVPB Last administered on 01/24/17 21:16; Admin Dose 200 MLS/HR; Start 01/15/17 at 21:00 Cyanocobalamin (Vitamin B12 Inj) 1,000 mcg Q7D IM ; Start 01/30/17 at 09:00 Tamsulosin HCl (Flomax) 0.4 mg HS PO Last administered on 01/24/17 21:19; Admin Dose 0.4 MG; Start 01/23/17 at 21:00 Lactobacillus Acidophilus (Florajen3 Capsule) 1 each BID PO ; Start 01/25/17 at 09:00 Miscellaneous Information (*Rx Drug Level Order Reminder*) VANCO RANDOM LEVEL... ONCE ONCE XX ; Start 01/26/17 at 05:00; Stop 01/26/17 at 05:01 Zeyad Kelly DO Jan 25, 2017 13:33
[2017-01-25] MEDS ORDERED: LIDOCAINE 1% (MDV) 20 ML INJ ONE (15:19)
[2017-01-25] MEDS ORDERED: FENTAnyl 50 MCG/ML VIAL ONE (15:20)
[2017-01-25] MEDS ORDERED: MIDAZOLAM 1 MG/ML 2 ML INJ ONE (15:20)
[2017-01-25] MEDS ORDERED: DIPHENHYDRAMINE 50 MG INJ ONE (15:20)
--- NOTE | 2017-01-25 18:27 | RADRPT ---
PROCEDURE: CT guided T11-T12 disk biopsy. CLINICAL INDICATION: T11-T12 diskitis. TECHNIQUE: Informed consent was obtained. The procedure, risks, benefits, complications and alternatives were e xplained to the patient. Risks including bleeding and infection were explained. The patient understo od and was willing to proceed. A procedural pause was performed. The patient's name, date of , and procedure to be performed were verified. One or more of the following dose reduction techniqu es were used: Automated exposure control, adjustment of the mA and/or kV according to patient size, use of iterative reconstruction technique. Using local anesthetic, sterile technique and CT guidance, a 20-gauge automated core biopsy needle w as used to biopsy the soft tissues and lytic bone lesion at the T11-T12 disk level. Multiple passes were made. Adequate tissue was obtained according to the pathologist present during the procedure. The needle was removed. A postprocedural scan was performed. A dressing was applied. The patient tolerated procedure well. COMPARISON: None. FINDINGS: Initial images demonstrate the tip of the needle at the edge of the lesion in question. Post biopsy images demonstrate no immediate complication. IMPRESSION: 1. Successful CT guided T11-T12 disk and bone biopsy. RPTAT: QQ .Trung De Anda MD, MD Date Time Electronically viewed and signed by .Trung De Anda MD, on 01/25/2017 18:27 .R/
--- NOTE | 2017-01-25 21:18 | CONS ---
Date/Time of Note Date/Time of Note DATE: 01/25/17 TIME: 21:16 Assessment/Plan Assessment/Plan Additional Assessment/Plan 1. Acute kidney injury on CKD progressing worsening- started on HD during this admission 2. 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 Possible history of chronic kidney disease secondary to hypertensive nephrosclerosis. 5. History of hypertension. 6. History of gout. 7. History of hyperlipidemia. 8. Atrial fibrillation, rate controlled. 9. History of alcohol abuse. 10. Thrombocytopenia secondary to alcohol abuse. 11. sepsis due to UTI and bacteremia with Blood cx and urine Cx growing proteus - follow up blood cx negative 12. Moderate pleural effusion s/p Throacentesis 12/31/2016- 2.21 L Fluid removed PLAN: started on HD again due to persistent uremia and encephalopathy HD today then pt will be on HD , , tuesday - he is set up for outpatietn HD at [facility] HD center s/p Right femoral permacath placement S/p Neurosurgeon evaluation - possible OM of spine- pt refuseed Biopsy of spine , will need 6 weeks fo IV abx on IV abx, ID following will follow up Consultation Date/Type/Reason Admit Date/Time December 10, 2016 at 16:57 Type of Consultation: NEPHROLOGY Referring Provider: NETTA SALOMON MD Exam/Review of Systems Vital Signs Vitals Vital Signs Date Time Temp Pulse Resp B/P Pulse Ox O2 Delivery O2 Flow Rate FiO2 01/25/17 21:08 98.2 90 18 101/60 91 01/23/17 12:05 Room Air Intake and Output 01/24/17 01/24/17 01/25/17 15:00 23:00 07:00 Intake Total 100 ml 200 ml Output Total 800 ml 500 ml Balance -700 ml -300 ml Results Result Diagram: 01/25/17 0950 Results 24 hrs Laboratory Tests Test 01/25/17 09:50 Sodium Level 144 Potassium Level 3.4 L Chloride Level 108 Carbon Dioxide Level 28 Anion Gap 11 Blood Urea Nitrogen 9 Creatinine 2.59 #H Glucose Level 110 Calcium Level 8.6 Medications Medications Current Medications Ondansetron HCl (Zofran Inj) 4 mg Q6H PRN IV NAUSEA AND/OR VOMITING Last administered on 12/24/16t 12:08; Admin Dose 4 MG; Start 12/10/16 at 18:00 Magnesium Hydroxide (Milk Of Mag) 30 ml DAILY PRN PO CONSTIPATION Last administered on 12/29/16 08:56; Admin Dose 30 ML; Start 12/10/16 at 18:00 Bisacodyl (Dulcolax) 5 mg DAILY PRN PO CONSTIPATION; Start 12/10/16 at 18:00 Famotidine (Pepcid) 20 mg DAILY PO Last administered on 01/23/17 08:33; Admin Dose 20 MG; Start 12/11/16 at 09:00 Atorvastatin Calcium (Lipitor) 10 mg DAILY@21 PO Last administered on 01/14/17 21:49; Admin Dose 10 MG; Start 12/10/16 at 21:00; Status Future Hold Heparin Sodium (Porcine) (Heparin (5000 Units/0.5 ml)) 5,000 unit BID SC Last administered on 01/24/17 21:23; Admin Dose 5,000 UNIT; Start 12/11/16 at 21:00; Status Future hold Metoprolol Tartrate (Lopressor) 50 mg BID PO Last administered on 01/24/17 21: 21; Admin Dose 50 MG; Start 12/17/16 at 21:00 Polyethylene Glycol (Miralax) 17 gm BID PO Last administered on 01/22/17 20:41 ; Admin Dose 17 GM; Start 12/21/16 at 21:00 Miscellaneous Information 1 ea NOTE XX ; Start 12/21/16 at 17:30 Glucose (Glutose) 15 gm Q15M PRN PO DECREASED GLUCOSE; Start 12/21/16 at 17:30 Glucose (Glutose) 22.5 gm Q15M PRN PO DECREASED GLUCOSE; Start 12/21/16 at 17: 30 Dextrose (D50w Syringe) 25 ml Q15M PRN IV DECREASED GLUCOSE; Start 12/21/16 at 17:30 Dextrose (D50w Syringe) 50 ml Q15M PRN IV DECREASED GLUCOSE; Start 12/21/16 at 17:30 Glucagon (Glucagen) 1 mg Q15M PRN IM DECREASED GLUCOSE; Start 12/21/16 at 17:30 Glucose (Glutose) 15 gm Q15M PRN BUCCAL DECREASED GLUCOSE; Start 12/21/16 at 17 :30 Amlodipine Besylate (Norvasc) 5 mg BID PO Last administered on 01/24/17 21:20 ; Admin Dose 5 MG; Start 12/27/16 at 21:00 Acetaminophen/ Hydrocodone Bitart ([place] (5/325)) 1 tab Q4H PRN PO pain Last administered on 01/23/17 08:32; Admin Dose 1 TAB; Start 01/08/17 at 14:30 IV Flush (NS 10 ml) 10 ml PRN PRN IV IV PROTOCOL; Start 01/11/17 at 16:00 Haloperidol (Haldol) 5 mg Q4 PRN IM Anxiety Last administered on 01/15/17 13: 37; Admin Dose 5 MG; Start 01/12/17 at 20:00 Quetiapine Fumarate 50 mg 50 mg BID PO Last administered on 01/24/17 21:19; Admin Dose 50 MG; Start 01/15/17 at 21:00 Meropenem (Merrem 500 Mg/ 100 ml (Pmx)) 100 ml @ 200 mls/hr Q24H IVPB Last administered on 01/24/17 21:16; Admin Dose 200 MLS/HR; Start 01/15/17 at 21:00 Cyanocobalamin (Vitamin B12 Inj) 1,000 mcg Q7D IM ; Start 01/30/17 at 09:00 Tamsulosin HCl (Flomax) 0.4 mg HS PO Last administered on 01/24/17 21:19; Admin Dose 0.4 MG; Start 01/23/17 at 21:00 Lactobacillus Acidophilus (Florajen3 Capsule) 1 each BID PO ; Start 01/25/17 at 09:00 Miscellaneous Information (*Rx Drug Level Order Reminder*) VANCO RANDOM LEVEL... ONCE ONCE XX ; Start 01/26/17 at 05:00; Stop 01/26/17 at 05:01 MADELYN MIRANDA MD Jan 25, 2017 21:18
[2017-01-25] MEDS: MEROPENEM 500 MG/100 ML (PMX) 100 ML IVPB SCH (21:24)
[2017-01-25] MEDS: TAMSULOSIN (SR) 0.4 MG CAP PO SCH (21:25)
[2017-01-26 07:11] LABS: CALCIUM 8.4 mg/dl (8.4-10.2); CREATININE 3.28 mg/dl (0.61-1.24); POTASSIUM 3.5 mmol/L (3.5-5.1)
[2017-01-26] MEDS: POLYETHYLENE GLYCOL 17 GM PACKET PO SCH ×2 (09:00→21:00)
[2017-01-26] MEDS: L ACIDOPHIL/B LACTIS/B LONGUM CAPSULE PO SCH ×2 (09:00→21:00)
[2017-01-26] MEDS: AMLODIPINE 5 MG TAB PO SCH ×2 (09:00→21:00)
[2017-01-26] MEDS: QUETIAPINE 25 MG TAB PO SCH ×2 (09:00→21:00)
[2017-01-26] MEDS: HEPARIN 5,000 UNIT/0.5 ML VIAL SC SCH ×2 (09:00→21:00)
[2017-01-26] MEDS: FAMOTIDINE 20 MG TAB PO SCH (09:00)
--- NOTE | 2017-01-26 12:12 | CONS ---
Date/Time of Note Date/Time of Note DATE: 01/26/17 TIME: 12:11 Assessment/Plan Assessment/Plan Additional Assessment/Plan Acute kidney injury with intermittent hemodialysis Preserved ejection fraction Status post fall Vertebral osteomyelitis Sepsis with bacteremia Paroxysmal atrial fibrillation, currently sinus rhythm History of hypertension Recent UTI Alcohol abuse -Remains in regular rhythm. Decreased dose of Lopressor given lower blood pressure. Fluid management via hemodialysis as per our nephrology colleagues. Consultation Date/Type/Reason Admit Date/Time December 10, 2016 at 16:57 Type of Consultation: cv Referring Provider: NETTA SALOMON MD 24 HR Interval Summary Free Text/Dictation Denies chest pain, shortness of breath or dizziness Exam/Review of Systems Vital Signs Vitals Vital Signs Date Time Temp Pulse Resp B/P Pulse Ox O2 Delivery O2 Flow Rate FiO2 01/25/17 21:08 98.2 90 18 101/60 91 01/25/17 21:00 Room Air Intake and Output 01/25/17 01/25/17 01/26/17 15:00 23:00 07:00 Intake Total 300 ml 100 ml 250 ml Output Total 1800 ml 500 ml 500 ml Balance -1500 ml -400 ml -250 ml Exam Following commands, becomes aggressive at times, no apparent distress Constitutional: alert Head: normocephalic Respiratory: other (Coarse breath sounds bilaterally, no wheezing) Cardiovascular: other (S1-S2 heard), regular rate and rhythm Gastrointestinal: bowel sounds, non-tender, soft Extremities: other (No edema) Results Result Diagram: 01/26/17 0530 Results 24 hrs Laboratory Tests Test 01/26/17 05:30 Sodium Level 140 Potassium Level 3.5 Chloride Level 105 Carbon Dioxide Level 27 Anion Gap 12 Blood Urea Nitrogen 11 Creatinine 3.28 H Glucose Level 85 Calcium Level 8.4 Random Vancomycin Level 20.7 Medications Medications Current Medications Ondansetron HCl (Zofran Inj) 4 mg Q6H PRN IV NAUSEA AND/OR VOMITING Last administered on 12/24/16 12:08; Admin Dose 4 MG; Start 12/10/16 at 18:00 Magnesium Hydroxide (Milk Of Mag) 30 ml DAILY PRN PO CONSTIPATION Last administered on 12/29/16 08:56; Admin Dose 30 ML; Start 12/10/16 at 18:00 Bisacodyl (Dulcolax) 5 mg DAILY PRN PO CONSTIPATION; Start 12/10/16 at 18:00 Famotidine (Pepcid) 20 mg DAILY PO Last administered on 01/23/17 08:33; Admin Dose 20 MG; Start 12/11/16 at 09:00 Atorvastatin Calcium (Lipitor) 10 mg DAILY@21 PO Last administered on 01/14/17 21:49; Admin Dose 10 MG; Start 12/10/16 at 21:00; Status Future Hold Heparin Sodium (Porcine) (Heparin (5000 Units/0.5 ml)) 5,000 unit BID SC Last administered on 01/25/17 21:38; Admin Dose 5,000 UNIT; Start 12/11/16 at 21:00; Status Future hold Metoprolol Tartrate (Lopressor) 50 mg BID PO Last administered on 01/24/17 21: 21; Admin Dose 50 MG; Start 12/17/16 at 21:00 Polyethylene Glycol (Miralax) 17 gm BID PO Last administered on 01/25/17 21:26 ; Admin Dose 17 GM; Start 12/21/16 at 21:00 Miscellaneous Information 1 ea NOTE XX ; Start 12/21/16 at 17:30 Glucose (Glutose) 15 gm Q15M PRN PO DECREASED GLUCOSE; Start 12/21/16 at 17:30 Glucose (Glutose) 22.5 gm Q15M PRN PO DECREASED GLUCOSE; Start 12/21/16 at 17: 30 Dextrose (D50w Syringe) 25 ml Q15M PRN IV DECREASED GLUCOSE; Start 12/21/16 at 17:30 Dextrose (D50w Syringe) 50 ml Q15M PRN IV DECREASED GLUCOSE; Start 12/21/16 at 17:30 Glucagon (Glucagen) 1 mg Q15M PRN IM DECREASED GLUCOSE; Start 12/21/16 at 17:30 Glucose (Glutose) 15 gm Q15M PRN BUCCAL DECREASED GLUCOSE; Start 12/21/16 at 17 :30 Amlodipine Besylate (Norvasc) 5 mg BID PO Last administered on 01/24/17 21:20 ; Admin Dose 5 MG; Start 12/27/16 at 21:00 Acetaminophen/ Hydrocodone Bitart ([place] (5/325)) 1 tab Q4H PRN PO pain Last administered on 01/23/17 08:32; Admin Dose 1 TAB; Start 01/08/17 at 14:30 IV Flush (NS 10 ml) 10 ml PRN PRN IV IV PROTOCOL; Start 01/11/17 at 16:00 Haloperidol (Haldol) 5 mg Q4 PRN IM Anxiety Last administered on 01/15/17 13: 37; Admin Dose 5 MG; Start 01/12/17 at 20:00 Quetiapine Fumarate 50 mg 50 mg BID PO Last administered on 01/25/17 21:25; Admin Dose 50 MG; Start 01/15/17 at 21:00 Meropenem (Merrem 500 Mg/ 100 ml (Pmx)) 100 ml @ 200 mls/hr Q24H IVPB Last administered on 01/25/17 21:24; Admin Dose 200 MLS/HR; Start 01/15/17 at 21:00 Cyanocobalamin (Vitamin B12 Inj) 1,000 mcg Q7D IM ; Start 01/30/17 at 09:00 Tamsulosin HCl (Flomax) 0.4 mg HS PO Last administered on 01/25/17 21:25; Admin Dose 0.4 MG; Start 01/23/17 at 21:00 Lactobacillus Acidophilus 1 each 1 each BID PO Last administered on 01/25/17 21:40; Admin Dose 1 EACH; Start 01/25/17 at 09:00 Vancomycin HCl/ Sodium Chloride (Vancocin/NS) 250 ml @ 83.333 mls/ hr 18 IVPB ; Start 01/27/17 at 18:00; Stop 01/27/17 at 23:59 Zeyad Kelly DO Jan 26, 2017 12:12
--- NOTE | 2017-01-26 13:24 | CONS ---
Date/Time of Note Date/Time of Note DATE: 01/26/17 TIME: 13:24 Assessment/Plan Assessment/Plan Chief Complaint/Hosp Course SUBJECTIVE: No events. No fevers. Sleeping, looks comfortable MICROBIOLOGY: Blood cultures are negative. C dif neg ANTIMICROBIALS: Vancomycin, Merrem. INDWELLINGS: R femoral Norris placed on 01/22/2017 and PICC line placed on 01/2017. PHYSICAL EXAMINATION: GENERAL: This is well-developed, chronically ill-appearing, elderly man who is in no distress. HEENT: Head atraumatic, normocephalic. Sclerae anicteric. Buccal mucosa dry. NECK: Supple. CHEST: Rise symmetrical. Breath sounds diminished to bases. HEART: S1, S2. ABDOMEN: Soft. Bowel tones present. EXTREMITIES: No cyanosis. ASSESSMENT: 1. 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 2. Status post Proteus mirabilis urinary tract infection with bacteremia. 3. Status post pneumonia. 4. Pleural effusion. 5. Acute on chronic kidney disease, hemodialysis dependent. 6. Atrial fibrillation. 7. History of ETOH abuse. 8. ALLERGY TO PENICILLIN. PLAN: The patient remains stable. Continue broad spectrum coverage for 6 to 8 weeks with repeat MRI and ortho re-evaluation prior discontinuation of therapy. Continue probiotics [facility] staff Problems: Consultation Date/Type/Reason Admit Date/Time December 10, 2016 at 16:57 Type of Consultation: ID Referring Provider: NETTA SALOMON MD Exam/Review of Systems Vital Signs Vitals Vital Signs Date Time Temp Pulse Resp B/P Pulse Ox O2 Delivery O2 Flow Rate FiO2 01/25/17 21:08 98.2 90 18 101/60 91 01/25/17 21:00 Room Air Intake and Output 01/25/17 01/25/17 01/26/17 15:00 23:00 07:00 Intake Total 300 ml 100 ml 250 ml Output Total 1800 ml 500 ml 500 ml Balance -1500 ml -400 ml -250 ml Results Result Diagram: 01/26/17 0530 Results 24 hrs Laboratory Tests Test 01/26/17 05:30 Sodium Level 140 Potassium Level 3.5 Chloride Level 105 Carbon Dioxide Level 27 Anion Gap 12 Blood Urea Nitrogen 11 Creatinine 3.28 H Glucose Level 85 Calcium Level 8.4 Random Vancomycin Level 20.7 Medications Medications Current Medications Ondansetron HCl (Zofran Inj) 4 mg Q6H PRN IV NAUSEA AND/OR VOMITING Last administered on 12/24/16 12:08; Admin Dose 4 MG; Start 12/10/16 at 18:00 Magnesium Hydroxide (Milk Of Mag) 30 ml DAILY PRN PO CONSTIPATION Last administered on 12/29/16 08:56; Admin Dose 30 ML; Start 12/10/16 at 18:00 Bisacodyl (Dulcolax) 5 mg DAILY PRN PO CONSTIPATION; Start 12/10/16 at 18:00 Famotidine (Pepcid) 20 mg DAILY PO Last administered on 01/23/17 08:33; Admin Dose 20 MG; Start 12/11/16 at 09:00 Atorvastatin Calcium (Lipitor) 10 mg DAILY@21 PO Last administered on 01/14/17 21:49; Admin Dose 10 MG; Start 12/10/16 at 21:00; Status Future Hold Heparin Sodium (Porcine) (Heparin (5000 Units/0.5 ml)) 5,000 unit BID SC Last administered on 01/25/17 21:38; Admin Dose 5,000 UNIT; Start 12/11/16 at 21:00; Status Future hold Polyethylene Glycol (Miralax) 17 gm BID PO Last administered on 01/25/17 21:26 ; Admin Dose 17 GM; Start 12/21/16 at 21:00 Miscellaneous Information 1 ea NOTE XX ; Start 12/21/16 at 17:30 Glucose (Glutose) 15 gm Q15M PRN PO DECREASED GLUCOSE; Start 12/21/16 at 17:30 Glucose (Glutose) 22.5 gm Q15M PRN PO DECREASED GLUCOSE; Start 12/21/16 at 17: 30 Dextrose (D50w Syringe) 25 ml Q15M PRN IV DECREASED GLUCOSE; Start 12/21/16 at 17:30 Dextrose (D50w Syringe) 50 ml Q15M PRN IV DECREASED GLUCOSE; Start 12/21/16 at 17:30 Glucagon (Glucagen) 1 mg Q15M PRN IM DECREASED GLUCOSE; Start 12/21/16 at 17:30 Glucose (Glutose) 15 gm Q15M PRN BUCCAL DECREASED GLUCOSE; Start 12/21/16 at 17 :30 Amlodipine Besylate (Norvasc) 5 mg BID PO Last administered on 6/19/17at 21:20 ; Admin Dose 5 MG; Start 12/27/16 at 21:00 Acetaminophen/ Hydrocodone Bitart ([place] (5/325)) 1 tab Q4H PRN PO pain Last administered on 01/23/17 08:32; Admin Dose 1 TAB; Start 01/08/17 at 14:30 IV Flush (NS 10 ml) 10 ml PRN PRN IV IV PROTOCOL; Start 01/11/17 at 16:00 Haloperidol (Haldol) 5 mg Q4 PRN IM Anxiety Last administered on 01/15/17 13: 37; Admin Dose 5 MG; Start 01/12/17 at 20:00 Quetiapine Fumarate 50 mg 50 mg BID PO Last administered on 01/25/17 21:25; Admin Dose 50 MG; Start 01/15/17 at 21:00 Meropenem (Merrem 500 Mg/ 100 ml (Pmx)) 100 ml @ 200 mls/hr Q24H IVPB Last administered on 01/25/17 21:24; Admin Dose 200 MLS/HR; Start 01/15/17 at 21:00 Cyanocobalamin (Vitamin B12 Inj) 1,000 mcg Q7D IM ; Start 01/30/17 at 09:00 Tamsulosin HCl (Flomax) 0.4 mg HS PO Last administered on 01/25/17 21:25; Admin Dose 0.4 MG; Start 01/23/17 at 21:00 Lactobacillus Acidophilus 1 each 1 each BID PO Last administered on 01/25/17 21:40; Admin Dose 1 EACH; Start 01/25/17 at 09:00 Vancomycin HCl/ Sodium Chloride (Vancocin/NS) 250 ml @ 83.333 mls/ hr 18 IVPB ; Start 01/27/17 at 18:00; Stop 01/27/17 at 23:59 Metoprolol Tartrate (Lopressor) 25 mg BID PO ; Start 01/26/17 at 21:00 CHERRIE JAUREGUI NP Jan 26, 2017 13:24
--- NOTE | 2017-01-26 13:31 | PN ---
DATE: 01/26/2017 INTERNAL MEDICINE FOLLOWUP SUBJECTIVE: Chart reviewed. The patient remains in sinus rhythm. PHYSICAL EXAMINATION: VITAL SIGNS: Blood pressure 101/60, pulse 90, respirations 18, temperature 98.2, saturating 95%. HEENT: Pupils are equal and reactive to light. NECK: Supple, no JVD noted, no cervical adenopathy noted, no carotid bruits heard. LUNGS: Fair breath sounds bilaterally. CARDIOVASCULAR: S1, S2 normal. ABDOMEN: Soft, nontender. No organomegaly or masses noted. EXTREMITIES: No clubbing, cyanosis noted. NEUROLOGIC: No changes. LABORATORIES: Sodium 140, potassium 3.5, chloride 105, CO2 27, BUN 11, creatinine 3.28, glucose 85. IMPRESSION: 1. Status post sepsis with urinary tract infection. 2. T11-T12 osteomyelitis and diskitis 3. End-stage renal disease on hemodialysis per nephrology. 4. History of hypertension. 5. History of alcohol abuse. 6. History of atrial fibrillation 7. Urinary retention. RECOMMENDATIONS: 1. Cardiology followup noted. 2. Continue antibiotics. 3. Above discussed with the staff. Dictated By: VALDEMAR ERICKSON MD, MA/RIKA Conf#: [id number] DID#: [id number]
--- NOTE | 2017-01-26 16:41 | CONS ---
Date/Time of Note Date/Time of Note DATE: 01/26/17 TIME: 16:39 Assessment/Plan Assessment/Plan Additional Assessment/Plan 1. Acute kidney injury on CKD progressing worsening- started on HD during this admission 2. 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 Possible history of chronic kidney disease secondary to hypertensive nephrosclerosis. 5. History of hypertension. 6. History of gout. 7. History of hyperlipidemia. 8. Atrial fibrillation, rate controlled. 9. History of alcohol abuse. 10. Thrombocytopenia secondary to alcohol abuse. 11. sepsis due to UTI and bacteremia with Blood cx and urine Cx growing proteus - follow up blood cx negative 12. Moderate pleural effusion s/p Throacentesis 12/31/2016- 2.21 L Fluid removed PLAN: started on HD again due to persistent uremia and encephalopathy HD tomorrow. will conitnue his on HD , , tuesday - he is set up for outpatietn HD at [facility] HD center s/p Right femoral permacath placement S/p Neurosurgeon evaluation - possible OM of spine- pt refuseed Biopsy of spine , will need 6 weeks fo IV abx on IV abx, ID following will follow up Consultation Date/Type/Reason Admit Date/Time December 10, 2016 at 16:57 Type of Consultation: NEPHROLOGY Referring Provider: NETTA SALOMON MD 24 HR Interval Summary Free Text/Dictation BP stable, afebrile, Plan for HD tomorrow Exam/Review of Systems Vital Signs Vitals Vital Signs Date Time Temp Pulse Resp B/P Pulse Ox O2 Delivery O2 Flow Rate FiO2 01/25/17 21:08 98.2 90 18 101/60 91 01/25/17 21:00 Room Air Intake and Output 01/25/17 01/25/17 01/26/17 15:00 23:00 07:00 Intake Total 300 ml 100 ml 250 ml Output Total 1800 ml 500 ml 500 ml Balance -1500 ml -400 ml -250 ml Exam GENERAL: This is well-developed, chronically ill-appearing, elderly man who is in no distress. HEENT: Head atraumatic, normocephalic. Sclerae anicteric. Buccal mucosa dry. NECK: Supple. CHEST: Rise symmetrical. Breath sounds diminished to bases. HEART: S1, S2. ABDOMEN: Soft. Bowel tones present., Right femoral permacath present EXTREMITIES: No cyanosis. Results Result Diagram: 01/26/17 0530 Results 24 hrs Laboratory Tests Test 01/26/17 05:30 Sodium Level 140 Potassium Level 3.5 Chloride Level 105 Carbon Dioxide Level 27 Anion Gap 12 Blood Urea Nitrogen 11 Creatinine 3.28 H Glucose Level 85 Calcium Level 8.4 Random Vancomycin Level 20.7 Medications Medications Current Medications Ondansetron HCl (Zofran Inj) 4 mg Q6H PRN IV NAUSEA AND/OR VOMITING Last administered on 12/24/16 12:08; Admin Dose 4 MG; Start 12/10/16 at 18:00 Magnesium Hydroxide (Milk Of Mag) 30 ml DAILY PRN PO CONSTIPATION Last administered on 12/29/16 08:56; Admin Dose 30 ML; Start 12/10/16 at 18:00 Bisacodyl (Dulcolax) 5 mg DAILY PRN PO CONSTIPATION; Start 12/10/16 at 18:00 Famotidine (Pepcid) 20 mg DAILY PO Last administered on 01/23/17 08:33; Admin Dose 20 MG; Start 12/11/16 at 09:00 Atorvastatin Calcium (Lipitor) 10 mg DAILY@21 PO Last administered on 01/14/17 21:49; Admin Dose 10 MG; Start 12/10/16 at 21:00; Status Future Hold Heparin Sodium (Porcine) (Heparin (5000 Units/0.5 ml)) 5,000 unit BID SC Last administered on 01/25/17 21:38; Admin Dose 5,000 UNIT; Start 12/11/16 at 21:00; Status Future hold Polyethylene Glycol (Miralax) 17 gm BID PO Last administered on 01/25/17 21:26 ; Admin Dose 17 GM; Start 12/21/16 at 21:00 Miscellaneous Information 1 ea NOTE XX ; Start 12/21/16 at 17:30 Glucose (Glutose) 15 gm Q15M PRN PO DECREASED GLUCOSE; Start 12/21/16 at 17:30 Glucose (Glutose) 22.5 gm Q15M PRN PO DECREASED GLUCOSE; Start 12/21/16 at 17: 30 Dextrose (D50w Syringe) 25 ml Q15M PRN IV DECREASED GLUCOSE; Start 12/21/16 at 17:30 Dextrose (D50w Syringe) 50 ml Q15M PRN IV DECREASED GLUCOSE; Start 12/21/16 at 17:30 Glucagon (Glucagen) 1 mg Q15M PRN IM DECREASED GLUCOSE; Start 12/21/16 at 17:30 Glucose (Glutose) 15 gm Q15M PRN BUCCAL DECREASED GLUCOSE; Start 12/21/16 at 17 :30 Amlodipine Besylate (Norvasc) 5 mg BID PO Last administered on 01/24/17 21:20 ; Admin Dose 5 MG; Start 12/27/16 at 21:00 Acetaminophen/ Hydrocodone Bitart ([place] (5/325)) 1 tab Q4H PRN PO pain Last administered on 01/23/17 08:32; Admin Dose 1 TAB; Start 01/08/17 at 14:30 IV Flush (NS 10 ml) 10 ml PRN PRN IV IV PROTOCOL; Start 01/11/17 at 16:00 Haloperidol (Haldol) 5 mg Q4 PRN IM Anxiety Last administered on 01/15/17 13: 37; Admin Dose 5 MG; Start 01/12/17 at 20:00 Quetiapine Fumarate 50 mg 50 mg BID PO Last administered on 01/25/17 21:25; Admin Dose 50 MG; Start 01/15/17 at 21:00 Meropenem (Merrem 500 Mg/ 100 ml (Pmx)) 100 ml @ 200 mls/hr Q24H IVPB Last administered on 01/25/17 21:24; Admin Dose 200 MLS/HR; Start 01/15/17 at 21:00 Cyanocobalamin (Vitamin B12 Inj) 1,000 mcg Q7D IM ; Start 01/30/17 at 09:00 Tamsulosin HCl (Flomax) 0.4 mg HS PO Last administered on 01/25/17 21:25; Admin Dose 0.4 MG; Start 01/23/17 at 21:00 Lactobacillus Acidophilus 1 each 1 each BID PO Last administered on 01/25/17 21:40; Admin Dose 1 EACH; Start 01/25/17 at 09:00 Vancomycin HCl/ Sodium Chloride (Vancocin/NS) 250 ml @ 83.333 mls/ hr 18 IVPB ; Start 01/27/17 at 18:00; Stop 01/27/17 at 23:59 Metoprolol Tartrate (Lopressor) 25 mg BID PO ; Start 01/26/17 at 21:00 MADELYN MIRANDA MD Jan 26, 2017 16:41
[2017-01-26 20:01] VITALS: BP 139/63; RESP 18
[2017-01-26] MEDS: MEROPENEM 500 MG/100 ML (PMX) 100 ML IVPB SCH (21:00)
[2017-01-26] MEDS: METOPROLOL 25 MG TAB PO SCH (21:00)
[2017-01-26] MEDS: TAMSULOSIN (SR) 0.4 MG CAP PO SCH (21:00)
[2017-01-27] VITALS (8 sets, daily range): BP systolic 109–153; BP diastolic 54–72; PULSE 82–94; RESP 16
[2017-01-27] MEDS: METOPROLOL 25 MG TAB PO SCH (09:23)
[2017-01-27] MEDS: AMLODIPINE 5 MG TAB PO SCH (09:23)
[2017-01-27] MEDS: QUETIAPINE 25 MG TAB PO SCH (09:23)
[2017-01-27] MEDS: POLYETHYLENE GLYCOL 17 GM PACKET PO SCH (09:23)
[2017-01-27] MEDS: FAMOTIDINE 20 MG TAB PO SCH (09:23)
[2017-01-27] MEDS: HEPARIN 5,000 UNIT/0.5 ML VIAL SC SCH (09:26)
[2017-01-27] MEDS: L ACIDOPHIL/B LACTIS/B LONGUM CAPSULE PO SCH (09:29)
[2017-01-27] MEDS: EPOETIN 3000 UNITS/1 ML INJ (ESRD) SC SCH (10:19)
[2017-01-27 10:34] LABS: CALCIUM 8.7 mg/dl (8.4-10.2); CREATININE 2.28 mg/dl (0.61-1.24); POTASSIUM 3.5 mmol/L (3.5-5.1)
--- NOTE | 2017-01-27 14:28 | PN ---
DATE: 01/27/2017 INTERNAL MEDICINE FOLLOWUP SUBJECTIVE: Chart reviewed. The patient currently afebrile and denies any shortness of breath. PHYSICAL EXAMINATION: VITAL SIGNS: Blood pressure 140/55, pulse 84, respirations 16, temperature afebrile, saturating 95% . HEENT: Pupils are equal and react to light. Anicteric sclerae. NECK: Supple, no JVD noted, no cervical lymphadenopathy noted, no carotid bruits heard. LUNGS: Fair breath sounds bilaterally. CARDIOVASCULAR: S1, S2 normal. ABDOMEN: Soft, nontender. No organomegaly or masses noted. EXTREMITIES: No clubbing or cyanosis noted. NEUROLOGIC: No changes. LABORATORY DATA: Sodium 137, potassium 3.5, chloride 101, CO2 28, BUN 6, creatinine 2.28, glucose 1 01. IMPRESSION: 1. Status post sepsis with urinary tract infection. 2. T11-T12 osteomyelitis and diskitis. 3. End-stage renal disease, on hemodialysis per nephrology. 4. History of hypertension. 5. History of alcohol abuse. 6. History of atrial fibrillation. 7. Urinary retention. RECOMMENDATIONS: 1. Continue current treatment. 2. Plans for dialysis tomorrow noted. 3. Consider discharge planning for snf facility for continued IV antibiotics for the ne xt 6 to 8 weeks as per ID recommendations. Dictated By: VALDEMAR ERICKSON MD, MA/RIKA Conf#: [id number] DID#: [id number]
--- NOTE | 2017-01-27 14:29 | CONS ---
Date/Time of Note Date/Time of Note DATE: 01/27/17 TIME: 14:28 Assessment/Plan Assessment/Plan Chief Complaint/Hosp Course SUBJECTIVE: No events. No fevers. Sleeping, looks comfortable MICROBIOLOGY: Blood cultures are negative. C dif neg ANTIMICROBIALS: Vancomycin, Merrem. INDWELLINGS: R femoral Norris placed on 01/22/2017 and PICC line placed on 01/2017. PHYSICAL EXAMINATION: GENERAL: This is well-developed, chronically ill-appearing, elderly man who is in no distress. HEENT: Head atraumatic, normocephalic. Sclerae anicteric. Buccal mucosa dry. NECK: Supple. CHEST: Rise symmetrical. Breath sounds diminished to bases. HEART: S1, S2. ABDOMEN: Soft. Bowel tones present. EXTREMITIES: No cyanosis. ASSESSMENT: 1. 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 2. Status post Proteus mirabilis urinary tract infection with bacteremia. 3. Status post pneumonia. 4. Pleural effusion. 5. Acute on chronic kidney disease, hemodialysis dependent. 6. Atrial fibrillation. 7. History of ETOH abuse. 8. ALLERGY TO PENICILLIN. PLAN: The patient remains stable. Will change Merrem to Cefepime, continue Vanco. Will keep on abx for 6 to 8 weeks with repeat MRI and ortho re- evaluation prior discontinuation of therapy. Continue probiotics [facility] staff Problems: Consultation Date/Type/Reason Admit Date/Time December 10, 2016 at 16:57 Type of Consultation: ID Referring Provider: NETTA SALOMON MD Exam/Review of Systems Vital Signs Vitals Vital Signs Date Time Temp Pulse Resp B/P Pulse Ox O2 Delivery O2 Flow Rate FiO2 01/27/17 08:30 92 01/27/17 08:30 19 01/27/17 08:11 140/55 95 01/26/17 20:01 98.1 01/25/17 21:00 Room Air Intake and Output 01/26/17 01/26/17 01/27/17 15:00 23:00 07:00 Intake Total 0 ml 0 ml Balance 0 ml 0 ml Results Result Diagram: 01/27/17 0937 Results 24 hrs Laboratory Tests Test 01/27/17 09:37 Sodium Level 137 Potassium Level 3.5 Chloride Level 101 Carbon Dioxide Level 28 Anion Gap 12 Blood Urea Nitrogen 6 L Creatinine 2.28 #H Glucose Level 101 Calcium Level 8.7 Medications Medications Current Medications Ondansetron HCl (Zofran Inj) 4 mg Q6H PRN IV NAUSEA AND/OR VOMITING Last administered on 12/24/16 12:08; Admin Dose 4 MG; Start 12/10/16 at 18:00 Magnesium Hydroxide (Milk Of Mag) 30 ml DAILY PRN PO CONSTIPATION Last administered on 12/29/16 08:56; Admin Dose 30 ML; Start 12/10/16 at 18:00 Bisacodyl (Dulcolax) 5 mg DAILY PRN PO CONSTIPATION; Start 12/10/16 at 18:00 Famotidine (Pepcid) 20 mg DAILY PO Last administered on 01/27/17 09:23; Admin Dose 20 MG; Start 12/11/16 at 09:00 Atorvastatin Calcium (Lipitor) 10 mg DAILY@21 PO Last administered on 01/14/17 21:49; Admin Dose 10 MG; Start 12/10/16 at 21:00; Status Future Hold Heparin Sodium (Porcine) (Heparin (5000 Units/0.5 ml)) 5,000 unit BID SC Last administered on 01/27/17 09:26; Admin Dose 5,000 UNIT; Start 12/11/16 at 21:00; Status Future hold Polyethylene Glycol (Miralax) 17 gm BID PO Last administered on 01/27/17 09:23 ; Admin Dose 17 GM; Start 12/21/16 at 21:00 Miscellaneous Information 1 ea NOTE XX ; Start 12/21/16 at 17:30 Glucose (Glutose) 15 gm Q15M PRN PO DECREASED GLUCOSE; Start 12/21/16 at 17:30 Glucose (Glutose) 22.5 gm Q15M PRN PO DECREASED GLUCOSE; Start 12/21/16 at 17: 30 Dextrose (D50w Syringe) 25 ml Q15M PRN IV DECREASED GLUCOSE; Start 12/21/16 at 17:30 Dextrose (D50w Syringe) 50 ml Q15M PRN IV DECREASED GLUCOSE; Start 12/21/16 at 17:30 Glucagon (Glucagen) 1 mg Q15M PRN IM DECREASED GLUCOSE; Start 12/21/16 at 17:30 Glucose (Glutose) 15 gm Q15M PRN BUCCAL DECREASED GLUCOSE; Start 12/21/16 at 17 :30 Amlodipine Besylate (Norvasc) 5 mg BID PO Last administered on 01/27/17 09:23 ; Admin Dose 5 MG; Start 12/27/16 at 21:00 Acetaminophen/ Hydrocodone Bitart ([place] (5/325)) 1 tab Q4H PRN PO pain Last administered on 01/23/17 08:32; Admin Dose 1 TAB; Start 01/08/17 at 14:30 IV Flush (NS 10 ml) 10 ml PRN PRN IV IV PROTOCOL; Start 01/11/17 at 16:00 Haloperidol (Haldol) 5 mg Q4 PRN IM Anxiety Last administered on 01/15/17 13: 37; Admin Dose 5 MG; Start 01/12/17 at 20:00 Quetiapine Fumarate 50 mg 50 mg BID PO Last administered on 01/27/17 09:23; Admin Dose 50 MG; Start 01/15/17 at 21:00 Meropenem (Merrem 500 Mg/ 100 ml (Pmx)) 100 ml @ 200 mls/hr Q24H IVPB Last administered on 01/25/17 21:24; Admin Dose 200 MLS/HR; Start 01/15/17 at 21:00 Cyanocobalamin (Vitamin B12 Inj) 1,000 mcg Q7D IM ; Start 01/30/17 at 09:00 Tamsulosin HCl (Flomax) 0.4 mg HS PO Last administered on 01/25/17 21:25; Admin Dose 0.4 MG; Start 01/23/17 at 21:00 Lactobacillus Acidophilus 1 each 1 each BID PO Last administered on 01/27/17 09:29; Admin Dose 1 EACH; Start 01/25/17 at 09:00 Vancomycin HCl/ Sodium Chloride (Vancocin/NS) 250 ml @ 83.333 mls/ hr 18 IVPB ; Start 01/27/17 at 18:00; Stop 01/27/17 at 23:59 Metoprolol Tartrate (Lopressor) 25 mg BID PO Last administered on 01/27/17 09: 23; Admin Dose 25 MG; Start 01/26/17 at 21:00 CHERRIE JAUREGUI NP Jan 27, 2017 14:29
--- NOTE | 2017-01-27 14:51 | DS ---
DATE OF ADMISSION: 12/10/2016 DATE OF DISCHARGE: DISCHARGE DIAGNOSES: 1. Status post sepsis. 2. Urinary tract infection. 3. T11-T12 osteomyelitis and diskitis. 4. End-stage renal disease, on hemodialysis. 5. History of hypertension. 6. History of alcohol abuse. 7. History of atrial fibrillation. DISCUSSION: This elderly gentleman was initially hospitalized with complaints of generalized weaknes s and was found to be septic secondary to a urinary tract infection. The patient has a history of a lcohol abuse as well. Patient also sustained a fall recently. During the course, the patient was f ound to have acute renal failure, requiring brief dialysis, and was observed off the dialysis; howev er, his creatinine started to rise again, requiring him to be put back on hemodialysis. Patient was also found to have evidence of T11-T12 osteomyelitis and diskitis. Patient was treated under ID re commendations with IV antibiotics. The patient was followed by cardiology and neurology in consulta tion as well. The patient is currently afebrile. The patient remains on hemodialysis. Patient harjeet l be now transferred to [facility] for continuative care. DISCHARGE INSTRUCTIONS: DIET: Renal diet. ACTIVITY: As tolerated and dictated by physical therapy. MEDICATIONS: Upon discharge, see medication reconciliation list. Above discussed with the staff in detail. Dictated By: VALDEMAR ERICKSON MD, MA/RIKA Conf#: [id number] DID#: [id number]
--- NOTE | 2017-01-27 15:05 | PN ---
Date/Time of Note Date/Time of Note DATE: 01/27/17 TIME: 15:04 Assessment/Plan VTE Prophylaxis VTE Prophylaxis Intervention: SCD's Lines/Catheters IV Catheter Type (from Nrs): danielle cath Urinary Cath still in place: No Assessment/Plan Assessment/Plan Acute kidney injury with intermittent hemodialysis Preserved ejection fraction Status post fall Vertebral osteomyelitis Sepsis with bacteremia Paroxysmal atrial fibrillation, currently sinus rhythm History of hypertension Recent UTI Alcohol abuse -Remains in regular rhythm. -Decreased dose of Lopressor given lower blood pressure. - Fluid management via hemodialysis as per our nephrology colleagues. Subjective 24 Hr Interval Summary Free Text/Dictation The paitnet continues to improve Exam/Review of Systems Vital Signs Vitals Vital Signs Date Time Temp Pulse Resp B/P Pulse Ox O2 Delivery O2 Flow Rate FiO2 01/27/17 08:30 92 01/27/17 08:30 19 01/27/17 08:11 140/55 95 01/26/17 20:01 98.1 01/25/17 21:00 Room Air Intake and Output 01/26/17 01/26/17 01/27/17 14:59 22:59 06:59 Intake Total 0 ml 0 ml Balance 0 ml 0 ml Results Result Diagram: 01/27/17 0937 Results 24 hrs Laboratory Tests Test 01/27/17 09:37 Sodium Level 137 Potassium Level 3.5 Chloride Level 101 Carbon Dioxide Level 28 Anion Gap 12 Blood Urea Nitrogen 6 L Creatinine 2.28 #H Glucose Level 101 Calcium Level 8.7 Medications Medications Current Medications Ondansetron HCl (Zofran Inj) 4 mg Q6H PRN IV NAUSEA AND/OR VOMITING Last administered on 12/24/16 12:08; Admin Dose 4 MG; Start 12/10/16 at 18:00 Magnesium Hydroxide (Milk Of Mag) 30 ml DAILY PRN PO CONSTIPATION Last administered on 12/29/16 08:56; Admin Dose 30 ML; Start 12/10/16 at 18:00 Bisacodyl (Dulcolax) 5 mg DAILY PRN PO CONSTIPATION; Start 12/10/16 at 18:00 Famotidine (Pepcid) 20 mg DAILY PO Last administered on 01/27/17 09:23; Admin Dose 20 MG; Start 12/11/16 at 09:00 Atorvastatin Calcium (Lipitor) 10 mg DAILY@21 PO Last administered on 01/14/17 21:49; Admin Dose 10 MG; Start 12/10/16 at 21:00; Status Future Hold Heparin Sodium (Porcine) (Heparin (5000 Units/0.5 ml)) 5,000 unit BID SC Last administered on 01/27/17 09:26; Admin Dose 5,000 UNIT; Start 12/11/16 at 21:00; Status Future hold Polyethylene Glycol (Miralax) 17 gm BID PO Last administered on 01/27/17 09:23 ; Admin Dose 17 GM; Start 12/21/16 at 21:00 Miscellaneous Information 1 ea NOTE XX ; Start 12/21/16 at 17:30 Glucose (Glutose) 15 gm Q15M PRN PO DECREASED GLUCOSE; Start 12/21/16 at 17:30 Glucose (Glutose) 22.5 gm Q15M PRN PO DECREASED GLUCOSE; Start 12/21/16 at 17: 30 Dextrose (D50w Syringe) 25 ml Q15M PRN IV DECREASED GLUCOSE; Start 12/21/16 at 17:30 Dextrose (D50w Syringe) 50 ml Q15M PRN IV DECREASED GLUCOSE; Start 12/21/16 at 17:30 Glucagon (Glucagen) 1 mg Q15M PRN IM DECREASED GLUCOSE; Start 12/21/16 at 17:30 Glucose (Glutose) 15 gm Q15M PRN BUCCAL DECREASED GLUCOSE; Start 12/21/16 at 17 :30 Amlodipine Besylate (Norvasc) 5 mg BID PO Last administered on 01/27/17 09:23 ; Admin Dose 5 MG; Start 12/27/16 at 21:00 Acetaminophen/ Hydrocodone Bitart ([place] (5/325)) 1 tab Q4H PRN PO pain Last administered on 01/23/17 08:32; Admin Dose 1 TAB; Start 01/08/17 at 14:30 IV Flush (NS 10 ml) 10 ml PRN PRN IV IV PROTOCOL; Start 01/11/17 at 16:00 Haloperidol (Haldol) 5 mg Q4 PRN IM Anxiety Last administered on 01/15/17 13: 37; Admin Dose 5 MG; Start 01/12/17 at 20:00 Quetiapine Fumarate (Seroquel) 50 mg BID PO Last administered on 01/27/17 09: 23; Admin Dose 50 MG; Start 01/15/17 at 21:00 Cyanocobalamin (Vitamin B12 Inj) 1,000 mcg Q7D IM ; Start 01/30/17 at 09:00 Tamsulosin HCl (Flomax) 0.4 mg HS PO Last administered on 01/25/17 21:25; Admin Dose 0.4 MG; Start 01/23/17 at 21:00 Lactobacillus Acidophilus 1 each 1 each BID PO Last administered on 01/27/17 09:29; Admin Dose 1 EACH; Start 01/25/17 at 09:00 Vancomycin HCl/ Sodium Chloride (Vancocin/NS) 250 ml @ 83.333 mls/ hr 18 IVPB ; Start 01/27/17 at 18:00; Stop 01/27/17 at 23:59 Metoprolol Tartrate 25 mg 25 mg BID PO Last administered on 01/27/17 09:23; Admin Dose 25 MG; Start 01/26/17 at 21:00 Cefepime HCl (Maxipime 1gm/50 ml (Pmx)) 50 ml @ 100 mls/hr DAILY IVPB ; Start 01/28/17 at 09:00 RUPERT PEARSON MD Jan 27, 2017 15:05
[2017-01-27] MEDS ORDERED: VANCOMYCIN 1.5 GM in SOD CHLORIDE 0.9% 250 ML IVPB SCH (18:00)
--- NOTE | 2017-01-27 18:40 | PN ---
DATE: 01/27/2017 SUBJECTIVE: Patient has had difficulty urinating, but it seems he is voiding now. The postvoid res idual is still around 200 mL, but not enough to require intermittent catheterization and yesterday. as a matter of fact, he refused the intermittent catheterization. OBJECTIVE: VITAL SIGNS: His temperature is 98.1, pulse is 92, respirations 19, blood pressure 140/55. ABDOMEN: Soft. There is no abdominal tenderness, and the bladder is not distended. LABORATORY DATA: His last CBC was 10 days ago and the white count was 10.8. The BUN is 6, creatini ne 2.28 and this is the lowest creatinine that he has had. The patient therefore is doing better and his renal function is improving. The patient is apparentl y being discharged to the [facility] and once he goes there, they will have to check and make sure that he still continues voiding and check his renal function and if they do have any s can, maybe they could check his postvoid residual. If not, monitor his urine output and see if he d oes empty his bladder well. Dictated By: LAUREN GIL/RIKA Conf#: [id number] DID#: [id number]
--- NOTE | 2017-01-27 19:09 | CONS ---
Date/Time of Note Date/Time of Note DATE: 01/27/17 TIME: 19:08 Assessment/Plan Assessment/Plan Additional Assessment/Plan 1. Acute kidney injury on CKD progressing worsening- started on HD during this admission 2. 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 Possible history of chronic kidney disease secondary to hypertensive nephrosclerosis. 5. History of hypertension. 6. History of gout. 7. History of hyperlipidemia. 8. Atrial fibrillation, rate controlled. 9. History of alcohol abuse. 10. Thrombocytopenia secondary to alcohol abuse. 11. sepsis due to UTI and bacteremia with Blood cx and urine Cx growing proteus - follow up blood cx negative 12. Moderate pleural effusion s/p Throacentesis 12/31/2016- 2.21 L Fluid removed PLAN: started on HD again due to persistent uremia and encephalopathy s/p HD today will conitnue his on HD , , tuesday - he is set up for outpatietn HD at [facility] center s/p Right femoral permacath placement S/p Neurosurgeon evaluation - possible OM of spine- pt refuseed Biopsy of spine , will need 6 weeks fo IV abx on IV abx, ID following Plan for d/c to SNF today Consultation Date/Type/Reason Admit Date/Time December 10, 2016 at 16:57 Type of Consultation: NEPHROLOGy Referring Provider: NETTA SALOMON MD Exam/Review of Systems Vital Signs Vitals Vital Signs Date Time Temp Pulse Resp B/P Pulse Ox O2 Delivery O2 Flow Rate FiO2 01/27/17 08:30 92 01/27/17 08:30 19 01/27/17 08:11 140/55 95 01/26/17 20:01 98.1 01/25/17 21:00 Room Air Intake and Output 01/26/17 01/26/17 01/27/17 15:00 23:00 07:00 Intake Total 0 ml 0 ml Balance 0 ml 0 ml Results Result Diagram: 01/27/17 0937 Results 24 hrs Laboratory Tests Test 01/27/17 09:37 Sodium Level 137 Potassium Level 3.5 Chloride Level 101 Carbon Dioxide Level 28 Anion Gap 12 Blood Urea Nitrogen 6 L Creatinine 2.28 #H Glucose Level 101 Calcium Level 8.7 MADELYN MIRANDA MD Jan 27, 2017 19:09
[2017-01-28] MEDS ORDERED: CEFEPIME 1GM/50 ML (PMX) 50 ML IVPB SCH (09:00)
[2017-01-30] MEDS ORDERED: CYANOCOBALAMIN 1000 MCG INJ IM SCH (09:00)
== END 2017-01-27 18:40 | DRG 853 ==
LOC: E/R 12:03 → MS4 16:57 → PP2 01-07 15:25
PROVIDERS: ADMIT Family Medicine; ATTEND Family Medicine
PROC: 0W993ZZ Drainage of Right Pleural Cavity, Percutaneous Approach (ICD-10-PCS; 2016-12-10)
PROC: 30233N1 Transfusion of Nonautologous Red Blood Cells into Peripheral Vein, Percutaneous Approach (ICD-10-PCS; 2016-12-10)
PROC: 06HM33Z Insertion of Infusion Device into Right Femoral Vein, Percutaneous Approach (ICD-10-PCS; 2016-12-10)
PROC: 5A1D60Z (ICD-10-PCS; 2016-12-13)
PROC: 02H633Z Insertion of Infusion Device into Right Atrium, Percutaneous Approach (ICD-10-PCS; 2016-12-13)
PROC: 02H633Z Insertion of Infusion Device into Right Atrium, Percutaneous Approach (ICD-10-PCS; 2016-12-23)
PROC: 02H633Z Insertion of Infusion Device into Right Atrium, Percutaneous Approach (ICD-10-PCS; 2017-01-11)
PROC: 06HM33Z Insertion of Infusion Device into Right Femoral Vein, Percutaneous Approach (ICD-10-PCS; 2017-01-13)
PROC: 0PB43ZX Excision of Thoracic Vertebra, Percutaneous Approach, Diagnostic (ICD-10-PCS; principal; 2017-01-25)
PROC: 0RB93ZX Excision of Thoracic Vertebral Disc, Percutaneous Approach, Diagnostic (ICD-10-PCS; 2017-01-25)
DX: A41.50 Gram-negative sepsis, unspecified (principal); J69.0 Pneumonitis due to inhalation of food and vomit; N17.9 Acute kidney failure, unspecified; J90 Pleural effusion, not elsewhere classified; G92 Toxic encephalopathy; N18.6 End stage renal disease; I12.0 Hypertensive chronic kidney disease with stage 5 chronic kidney disease or end stage renal disease; D69.6 Thrombocytopenia, unspecified; E87.1 Hypo-osmolality and hyponatremia; N39.0 Urinary tract infection, site not specified; M46.24 Osteomyelitis of vertebra, thoracic region; N13.30 Unspecified hydronephrosis; R44.3 Hallucinations, unspecified; F10.10 Alcohol abuse, uncomplicated; Z66 Do not resuscitate; B96.4 Proteus (mirabilis) (morganii) as the cause of diseases classified elsewhere; Z99.2 Dependence on renal dialysis; I48.91 Unspecified atrial fibrillation; M10.9 Gout, unspecified; Z85.46 Personal history of malignant neoplasm of prostate; F12.90 Cannabis use, unspecified, uncomplicated; R32 Unspecified urinary incontinence; Z79.1 Long term (current) use of non-steroidal anti-inflammatories (NSAID); R13.10 Dysphagia, unspecified; N20.0 Calculus of kidney; Z96.641 Presence of right artificial hip joint; M47.9 Spondylosis, unspecified; Z78.1 Physical restraint status; M46.06 Spinal enthesopathy, lumbar region; R45.1 Restlessness and agitation; R33.9 Retention of urine, unspecified; Z91.81 History of falling
CPT/HCPCS: 32555; 36430; 36556; 36569; 36600; 70450; 70551; 71010; 71250; 72100; 72128; 72131; 72146; 72148; 74000; 74176; 76700; 76775; 76937; 76942; 77012; 80048; 80053; 80061; 80069; 80202; 80306; 80307; 81001; 81003; 82140; 82550; 82553; 82570; 82575; 82607; 82803; 82962; 83036; 83735; 84100; 84153; 84154; 84156; 84300; 84439; 84443; 84484; 84560; 85014; 85018; 85025; 85610; 85651; 85730; 86140; 86703; 86704; 86709; 86803; 86850; 86900; 86901; 86920; 87040; 87070; 87075; 87086; 87102; 87116; 87340; 88307; 88313; 89190; 90935; 92526; 92610; 93005; 93306; 93923; 93970; 97162; 97165; 97530; J1940; A4310; C1750; C1752; J0282; J0360; J0690; J0886; J1200; J1335; J1630; J1644; J1815; J2060; J2185; J2250; J2270; J2370; J2405; J2765; J2997; J3010; J3370; J3411; J3420; J7030; J7040; J7042; J7050; J7060; J7070; J7509; P9016; Q9967

== ENCOUNTER 2017-03-10 13:08 | Emergency (ER) | payer MEDICARE, OTHER ==
[~2017-03-10] VITALS: Ht 170.2 cm; Wt 80.0 kg
[~2017-03-10 13:08] MED LIST changes: -CALC-375 PO; -COLC0.6T6 PO; +METO-448 PO; +VALS160T20 PO; -VALS320T11 PO; -[UNRECOGNIZED DRUG - CODE] PO
[2017-03-10 13:24] VITALS: Ht 170.2 cm; Wt 80.0 kg
--- NOTE | 2017-03-10 13:39 | ERA ---
ER Documentation Chief Complaint Date/Time DATE: 03/10/17 TIME: 13:37 Chief Complaint BIB RA FOR EVAL OF HYPOTENSION PRIOR TO HD. HPI Patient is a 71-year-old male sent from dialysis for low blood pressure. The patient reports that this morning he felt lightheaded and nauseous. He denies chest pain, shortness of breath, abdominal pain, fever. He reports mild chronic back pain related to osteomyelitis that was diagnosed 2 months ago. He is currently on antibiotics. He states that his blood pressure has been normal at his convalescent home for the last week. He reports having 1 month of dark tarry stools that he associates with taking iron pills. The patient reports that he has had poor oral intake for the last 3 days due to poor appetite and not liking the food at his convalescent home. ROS All systems reviewed and are negative except as per history of present illness. Medications Home Meds Active Scripts Azithromycin* (Zithromax*) 250 Mg Tablet, 250 MG PO DAILY for 4 Days, TAB Prov:MARLON VALLES MD 03/10/17 Reported Medications Metoprolol Tartrate* (Lopressor*) 25 Mg Tab, 25 MG PO BID, #60 TAB 12/10/16 Valsartan* (Diovan*) 160 Mg Tablet, 160 MG PO DAILY, TAB 12/10/16 Naproxen* (Aleve*) 220 Mg Capsule, 220 MG PO DAILY 11/13/13 Aspirin (Aspirin) 81 Mg Tablet.dr, 81 MG PO DAILY 11/13/13 Simvastatin (Simvastatin) 20 Mg Tablet, 20 MG PO HS 11/13/13 Allopurinol* (Zyloprim*) 300 Mg Tablet, 300 MG PO DAILY 11/13/13 Allergies Allergies: Coded Allergies: Penicillins (Verified Allergy, Unknown, DIZZY, DIAPHORETIC AFTER LARGE DOSE AT AGE 19, 12/12/16) adhesive (Verified Allergy, Unknown, 12/10/16) latex (Verified Allergy, Unknown, 12/10/16) PMhx/Soc Past medical history: End-stage renal disease, hypertension, osteomyelitis Past surgical history: Denies Social history: Denies tobacco or alcohol History of Surgery: Yes (Appendectomy, Tonsilatis, Ankle , Knee, Elbow, Stenosis, Kypoplasti, ) Anesthesia Reaction: No Hx Neurological Disorder: No Hx Respiratory Disorders: No Hx Cardiac Disorders: Yes (Afib) Hx Psychiatric Problems: No Hx Miscellaneous Medical Probl: Yes (Prostate cancer ) Hx Alcohol Use: Yes Hx Substance Use: Yes (Smoke Marjuana) Hx Tobacco Use: No FmHx Family History: No coronary disease, No diabetes Physical Exam Vitals Vital Signs Date Time Temp Pulse Resp B/P Pulse Ox O2 Delivery O2 Flow Rate FiO2 03/10/17 13:51 98.0 93 14 104/51 98 Room Air 03/10/17 13:24 98.0 92 19 112/51 100 Physical Exam Const: Alert, no acute distress Head: Atraumatic Eyes: Mild conjunctival pallor, no icterus ENT: Normal External Ears, Nose and Mouth. Tacky mucous membranes Neck: Full range of motion..~ No meningismus. Resp: Clear to auscultation bilaterally, no wheezes, no rales Cardio: Regular rate and rhythm, no murmurs Abd: Soft, non tender, non distended. Normal bowel sounds Rectal: Mild external hemorrhoids. Dark stool sent to lab for guaiac. Skin: No petechiae or rashes Back: No midline or flank tenderness Ext: No cyanosis, 2+ pitting edema bilateral legs. Neur: Awake and alert, cranial nerves II through XII intact bilaterally, strength and sensation full in 4 extremities. Psych: Normal Mood and Affect Result Diagram: 03/10/17 1340 03/10/17 1340 Results 24 hrs Laboratory Tests Test 03/10/17 13:40 White Blood Count 10.710^3/ul Red Blood Count 3.1010^6/ul Hemoglobin 9.1g/dl Hematocrit 28.2% Mean Corpuscular Volume 91.0fl Mean Corpuscular Hemoglobin 29.4pg Mean Corpuscular Hemoglobin Concent 32.3g/dl Red Cell Distribution Width 17.1% Platelet Count 82013^3/UL Mean Platelet Volume 10.3fl Neutrophils % 87.4% Lymphocytes % 5.9% Monocytes % 5.1% Eosinophils % 0.8% Basophils % 0.4% Nucleated Red Blood Cells % 0.0/100WBC Neutrophils # 9.410^3/ul Lymphocytes # 0.610^3/ul Monocytes # 0.610^3/ul Eosinophils # 0.110^3/ul Basophils # 0.010^3/ul Nucleated Red Blood Cells # 0.010^3/ul Prothrombin Time 16.3Sec Prothrombin Time Ratio 1.3 INR International Normalized Ratio 1.30 Activated Partial Thromboplast Time 136.2Sec Stool Occult Blood NEGATIVE Sodium Level 137mmol/L Potassium Level 2.9mmol/L Chloride Level 99mmol/L Carbon Dioxide Level 24mmol/L Anion Gap 17 Blood Urea Nitrogen 37mg/dl Creatinine 4.71mg/dl Glucose Level 104mg/dl Lactic Acid Level 1.2mmol/L Calcium Level 7.7mg/dl Total Bilirubin 0.1mg/dl Direct Bilirubin 0.00mg/dl Indirect Bilirubin 0.1mg/dl Aspartate Amino Transf (AST/SGOT) 12IU/L Alanine Aminotransferase (ALT/SGPT) 20IU/L Alkaline Phosphatase 81IU/L Troponin I < 0.012ng/ml Total Protein 5.6g/dl Albumin 2.6g/dl Globulin 3.00g/dl Albumin/Globulin Ratio 0.86 Current Medications Medications (Trade) Dose Ordered Sig/Julianne Route PRN Reason Start Time Stop Time Status Last Admin Dose Admin Azithromycin (Zithromax) 500 mg ONCE ONCE PO 03/10/17 15:00 03/10/17 15:01 DC Potassium Chloride (Klor-Con 20) 20 meq ONCE STAT PO 03/10/17 14:34 03/10/17 14:36 DC Procedures/MDM EKG read by me: Time 1457, rate 101 Rhythm: Normal sinus rhythm with occasional PVCs [place]: Normal Intervals: Prolonged QTC ST-T waves: Nonspecific ST-T wave changes in lateral leads do not appear ischemic Ectopy: Occasional PVCs Q-waves: No Impression: Sinus rhythm with occasional PVCs and nonspecific STT wave changes. MDM: Patient is a 71-year-old male who presents with low blood pressure from dialysis. In the ER he has had consistently normal blood pressure. He states that he has had poor oral intake recently and felt lightheaded this morning. He has no fever or tachycardia. He is an uric. He has a borderline white blood cell count and mild neutrophilia, and his chest x-ray shows possible hazy opacity. He does not have cough or shortness of breath, but I will treat him with azithromycin for possible pulmonary infection. His labs show hypokalemia, and a single dose of oral potassium was given. He has nonspecific changes on his EKG, but no signs or symptoms of coronary ischemia. His hemoglobin is chronically low, but his stool guaiac is negative. His hemoglobin is greater than 9, so he does not meet criteria for transfusion. The patient states that he is currently well-appearing, so I will discharge him home with return precautions and close PMD follow-up. Departure Diagnosis: Primary Impression: Hypotension Qualified Code: I95.3 - Hemodialysis-associated hypotension Additional Impressions: Hypokalemia End stage renal disease Condition: Stable MARLON VALLES MD Mar 10, 2017 13:39
[2017-03-10 13:51] LABS: BASOPHILS % 0.4 % (0.0-2.0); EOSINOPHILS # 0.1 10^3/ul (0.0-0.5); EOSINOPHILS % 0.8 % (0.0-7.0); HEMATOCRIT 28.2 % (42.0-52.0); HEMOGLOBIN 9.1 g/dl (14.0-18.0); LYMPHOCYTES # 0.6 10^3/ul (0.8-2.9); LYMPHOCYTES % 5.9 % (15.0-51.0); MEAN CORPUSCULAR HEMOGLOBIN 29.4 pg (29.0-33.0); MEAN CORPUSCULAR HGB CONC 32.3 g/dl (32.0-37.0); MEAN PLATELET VOLUME 10.3 fl (7.4-10.4); MONOCYTE # 0.6 10^3/ul (0.3-0.9); MONOCYTES % 5.1 % (0.0-11.0); NEUTROPHIL # 9.4 10^3/ul (1.6-7.5); NEUTROPHILS % 87.4 % (39.0-77.0); PLATELET COUNT 205 10^3/UL (140-415); RED CELL DISTRIBUTION WIDTH 17.1 % (11.5-14.5); WHITE BLOOD COUNT 10.7 10^3/ul (4.8-10.8)
--- NOTE | 2017-03-10 14:07 | RADRPT ---
PROCEDURE: XR Chest. CLINICAL INDICATION: Sepsis TECHNIQUE: Single frontal chest x-ray. COMPARISON: 01/21/2017 FINDINGS: Increased hazy opacity seen in the right lung base consistent with atelectasis or effusion. . The r emainder of the lungs are clear. Calcific atherosclerosis of the aorta is present.. The cardiomedia stinal silhouette is unremarkable. Degenerative disk changes of the spine are present. . IMPRESSION: Hazy opacity at the right lung base consistent with atelectasis or effusion. Recommend follow-up.. RPTAT: GG .Chapin Motley MD, Date Time Electronically viewed and signed by .Chapin Motley MD, MD on 03/10/2017 14:06 .L/
[2017-03-10 14:10] LABS: INR 1.3; PROTIME 16.3 Sec (12.2-14.2); PT RATIO 1.3
[2017-03-10 14:13] LABS: ALANINE AMINOTRANSFERASE 20 IU/L (13-69); ALBUMIN 2.6 g/dl (3.3-4.9); ALBUMIN/GLOBULIN RATIO 0.86; ALKALINE PHOSPHATASE 81 IU/L (42-121); ANION GAP 17 (8-16); ASPARTATE AMINO TRANSFERASE 12 IU/L (15-46); BILIRUBIN,INDIRECT 0.1 mg/dl (0-1.1); BILIRUBIN,TOTAL 0.1 mg/dl (0.2-1.3); BLOOD UREA NITROGEN 37 mg/dl (7-20); CALCIUM 7.7 mg/dl (8.4-10.2); CARBON DIOXIDE 24 mmol/L (21-31); CHLORIDE 99 mmol/L (97-110); CREATININE 4.71 mg/dl (0.61-1.24); GLUCOSE 104 mg/dl (70-220); SODIUM 137 mmol/L (135-144); TOTAL PROTEIN 5.6 g/dl (6.1-8.1)
[2017-03-10 14:27] LABS: POTASSIUM 2.9 mmol/L (3.5-5.1); TROPONIN-I < 0.012 ng/ml (0.00-0.12)
[2017-03-10] MEDS ORDERED: POTASSIUM CHLORIDE (SR) 20 MEQ TAB PO STA (14:34)
[2017-03-10 14:41] LABS: PARTIAL THROMBOPLASTIN TIME 136.2 Sec (25.0-35.0)
[2017-03-10] MEDS ORDERED: AZITHROMYCIN 250 MG TAB PO ONE (15:00)
[2017-03-10] MEDS ORDERED: AZIT250T94 PO (15:05)
[2017-03-10 17:17] VITALS: BP 104/51; PULSE 98; RESP 16; TEMP 97.3
== END 2017-03-10 17:39 | disposition home or self-care (01) ==
LOC: E/R 13:08
DX: I95.3 Hypotension of hemodialysis (principal); E87.6 Hypokalemia; I12.0 Hypertensive chronic kidney disease with stage 5 chronic kidney disease or end stage renal disease; N18.6 End stage renal disease; Z79.82 Long term (current) use of aspirin; Z85.46 Personal history of malignant neoplasm of prostate; Z91.040 Latex allergy status
CPT/HCPCS: 36415; 71010; 80053; 82270; 83605; 84484; 85025; 85610; 85730; 93005

== ENCOUNTER → 2017-04-15 | Outpatient (CLI) | payer MEDICARE, OTHER ==
[~2017-04-15] MED LIST changes: +AZIT250T94 PO
--- NOTE | 2017-04-15 16:53 | RADRPT ---
PROCEDURE: CT L-Spine. CLINICAL INDICATION: Chronic back pain TECHNIQUE: A CT of the lumbar spine was performed on a [employer] 64-slice CT scanner utilizing high-resolution thin section axial images from the thoracic lumbar junction through the lumbar sacr al junction. Sagittal and coronal and multiplanar reformatted images were made. The CTDIvol is mGy and the DLP is 14.93 349.30 mGycm. One of the following 3 does reduction techniques were used during this CT examination: 1) Automated exposure control 2) Adjustment of the mA +/- kV according to patient size or 3) Use of iterative reconstruction technique COMPARISON: Lumbar spine MRI 12/18/[address] 12/18/2016 FINDINGS: The visualized spine alignment demonstrates normal lumbar lordosis. Degenerative 4 mm retrolisthesis of L1 with respect to L2 is noted. The vertebral body heights demonstrate chronic compression fract ure deformity with vertebral plasty changes at the L1 vertebral body. Approximately 50% vertebral mohsen dy height loss is noted. Severe cortical endplate changes are noted at the T11-12 as previously desc ribed with the widening of the intervening disc space. This is compatible with previously described osteomyelitis and diskitis at this level. Degenerative endplate changes are again noted at the L2-3 and L4-5 levels. The bilateral paravertebral soft tissues demonstrate a right dialysis catheter via the right femoral approach with tip in the superior most axial images with in the inferior vena cava . Vascular calcifications are present of the anterior abdominal aorta. Calcifications are noted in t he bilateral kidneys compatible with multiple nephrolithiasis. Staghorn calculi are noted which measure a maximum of 1.4 cm in the right kidney 1.5 cm and the left kidney. Also noted is a right to terese hip prosthesis. The specific axial levels are as follows: T11-12: Severe erosive changes are noted in the end plates at T11-12 with widening of the disc at t his level. A large right anterolateral osteophyte is present with an eccentric bulge to the right me asuring 7 mm. AP canal dimension is 10 mm. This results in a mild central canal stenosis, bilateral subarticular recess stenosis and mild bilateral neural foraminal stenosis. T12-L1: Severe degenerative endplate changes are noted with mild extravasation of vertebroplasty ce ment within the anterior and mid disc at this level. AP canal dimension is normal at 13.5 mm. No sig nificant central, subarticular recess or neural foraminal stenosis is present. L1-2: Mild widening of the intervertebral disc space is noted with 4 mm degenerative retrolisthesis of L1 on L2 again noted. Mild osteophytic bar and bulge is present. The central canal is normal. Mod erate bilateral subarticular recess stenosis and moderate to severe bilateral neural foraminal steno sis is present. L2-3: Severe degenerative endplate and disc changes are present at this level with a moderate osteop hytic bar and bulge. Mild bilateral facet arthropathy and ligamentum hypertrophy is present. AP manolo l dimension is 7 mm. This results in a moderate central canal stenosis, bilateral subarticular reces s stenosis and mild bilateral neural foraminal stenosis. This is unchanged from prior study. L3-4: Mild diffuse disc space height loss is noted with a 4 mm moderate broad-based bulge. Moderate bilateral facet arthropathy and ligamentum hypertrophy is present. AP canal dimension is 4.7 mm. Thi s results in a severe central canal stenosis, bilateral subarticular recess stenosis and moderate to severe bilateral neural foraminal stenosis. L4-5: Degenerative endplate , vacuum disc severe disc space height loss and disc disease is present. A moderate 5 mm osteophytic bar and bulge is present. Severe bilateral facet arthropathy and ligame ntum hypertrophy is present. AP canal dimension at this level is 4.4 mm. This results in a severe ce ntral, bilateral subarticular recess stenosis and moderate to severe right and mild left neural fora trinh stenosis. L5-1: Severe disc space height loss is noted calcifications noted within the discs. A mild osteophyt ic bar and bulge is present. Moderate bilateral facet arthropathy is present. The central canal demo nstrates AP canal dimension of 10 mm. This results in a mild central canal stenosis, bilateral subar ticular recess stenosis and mild bilateral neural foraminal stenosis unchanged from prior study. The bilateral sacroiliac joints demonstrate vacuum phenomenon and mild degenerative osteophytes. IMPRESSION: 1. No acute fractures or traumatic subluxations. 2. 4 mm degenerative retrolisthesis of L1 with respect to L2 and status post vertebral plasty change s in the chronic L1 vertebral body compression fracture with approximately 50% vertebral body height loss. 3. No significant interval change in the T11-12 appearance of osteomyelitis and diskitis. Recommend continued follow-up with MRI. 4. Multilevel broad-based disc osteophyte complexes at the T11-12 through L5-S1 levels with severe c entral canal stenosis at L3-4 and L4-5 , moderate at L2-3 and mild at T11-12 and L5-S1 levels not si gnificantly changed from prior study. 5. Multilevel neural foraminal stenosis at the L1-2 through L5-S1 levels not significantly changed from prior study. 6. Right femoral dialysis catheter with tip in the inferior vena cava on superior most axial image o f the study. 7. Bilateral nephrolithiasis as described above. 8. Right total hip prosthesis 9. Atherosclerotic vascular disease RPTAT: HDC .Jeane Roy MD, MD Date Time Electronically viewed and signed by .Jeane Roy MD, on 04/15/2017 16:53 .C/
--- NOTE | 2017-04-15 17:23 | RADRPT ---
PROCEDURE: CT thoracic spine CLINICAL INDICATION: Acute superimposed on chronic back pain TECHNIQUE: A CT of the thoracic spine was performed on a GE 64-slice CT scanner utilizing high-res olution axial imaging from the cervical thoracic junction through the thoracolumbar junction. Sagit terese, coronal, and multiplanar reformatted images were made. The CTDIvol is 16.02 mGy and the DLP is 597.32 mGycm. One of the following 3 does reduction techniques were used during this CT examination: 1) Automated exposure control 2) Adjustment of the mA +/- kV according to patient size or 3) Use of iterative reconstruction technique COMPARISON: MRI 01/15/2017 FINDINGS: The visualized spine alignment demonstrates thoracic kyphosis with anterior 4 mm subluxation of C7 o n T1. Degenerative anterior spondylosis/and the. At the is present compatible with diffuse idiopathi c skeletal hyperostosis extending from the T5-6 through T11-12 level. Severe degenerative endplate c hanges are present at the C7-T1 and T3-4 levels. Destructive erosive changes are again noted at the end plates of the T11 and T12 level compatible with previously described osteomyelitis and diskitis at this level. The early osteomyelitis diskitis previously noted at T10-11 on prior MRI is not well visualized on CT. Intact end plates at T10-11 are present. Degenerative calcifications of the discs are noted at the T7-8 through T9-10 levels. Generalized osteopenia is present. Vascular calcificatio ns are noted. The visualized bilateral paravertebral soft tissues demonstrate a dialysis catheter in the right atrium. The specific axial levels are as follows: C7-T1: Anterior 4 mm subluxation of C7 on T1 is present. The central canal, subarticular recess and neural foramen are patent. T1-2: The intervertebral discs is normal. The central canal, subarticular recess and neural foramen are patent. T2-3: The intervertebral disc is normal. A small central disc protrusion measuring 2 mm is present. AP canal dimension is 9 mm. This results in a mild central canal stenosis, bilateral subarticular r ecess stenosis and no neural foraminal stenosis. T3-4: Degenerative endplate and severe disc changes are noted with severe disc space height loss. A mild broad-based bulge is present. The central canal, bilateral subarticular recesses and neural fo ramen are patent. T4-5: The intervertebral disc is normal. The central canal, subarticular recess and neural foramen are patent. T5-6: The intervertebral discs is normal height. A mild annular bulge is present. The central canal , subarticular recess, and neural foramen are patent. T6-7, and the intervertebral disc space height is preserved with mild disc calcifications. The centr al canal, subarticular recess and neural foramen are patent. T7-8: Disc calcification is again noted. The central canal, subarticular recess and neural foramen are patent. T8-9: The intervertebral discs again demonstrates mild disc calcification. The central canal, subar ticular recess and neural foramen are patent. T9-10: Mild intradiskal calcifications are present. The central canal, bilateral subarticular reces ses and neural foramen are patent. T10-11: Intradiskal calcifications are present. Central canal, subarticular recess and neural misael en are patent. Mild right paravertebral soft tissue is present which may represent previously descri bed resolving phlegmon. T11-12: Again noted are widening of the discs secondary to erosive changes in the T11 and T12 endpla ivonne with associated mild amount of paravertebral soft tissue compatible with previously-described ph legmon. These findings are compatible with osteomyelitis and diskitis. Again noted is a 4 mm broad-b ased bulge at this level. AP canal dimension is 9.8 mm. This results in a mild central canal stenosi s, bilateral subarticular recess stenosis and severe bilateral neural foraminal stenosis is present. Mild bilateral facet arthropathy and ligamentum hypertrophy is present. T12-L1: Intradiskal calcification with mild disc space height loss is present. A mild annular bulge is present. The central canal, subarticular recess and neural foramen are patent. Again noted are vertebral plasty changes in the chronic compressed L1 vertebral body with approximat alicia 50% vertebral body height loss. IMPRESSION: 1. No evidence for acute fractures or traumatic subluxations. 2. Mild thoracic kyphosis with 4 mm anterior subluxation of C7 on T1. 3. No significant interval change in the appearance of the osteomyelitis diskitis changes at T11-12 with erosive changes in the endplates and mild disc widening. 4. Previously noted are changes at T10-11 corresponding to early osteomyelitis diskitis is not well demonstrated on CT. 5. Multi level disc changes as described above 6. Mild central canal stenosis, bilateral subarticular recess stenosis and severe bilateral neural foraminal stenosis at T11-12. 7. Chronic L1 vertebral body compression fracture status post vertebral plasty changes. RPTAT: HDC .Jeane Roy MD, Date Time Electronically viewed and signed by .Jeane Roy MD, on 04/15/2017 17:22 .C/
== END | disposition home or self-care (01) ==
LOC: C/S 10:21
PROVIDERS: ATTEND Family Medicine
DX: G89.29 Other chronic pain (principal); M54.9 Dorsalgia, unspecified
CPT/HCPCS: 72128; 72131

== ENCOUNTER 2017-04-21 10:42 | Inpatient (IN) | payer MEDICARE, OTHER ==
[~2017-04-21] VITALS: Ht 170.2 cm; Wt 70.7 kg
--- NOTE | 2017-04-21 16:07 | ERA ---
ER Documentation Chief Complaint Date/Time DATE: 04/21/17 TIME: 15:55 Chief Complaint DIALYSIS CATHETER MALFUNCTION HPI 71-year-old male with extensive medical history including hypertension, hyperlipidemia, chronic back pain, discitis and end-stage renal disease on dialysis T//Tue referred to ED from dialysis this morning for dialysis catheter replacement. The dialysis catheter in his right thigh is protruding about 2 inches from the puncture site and dialysis could not be performed. He complains of ongoing, mild, chronic, diffuse, nonradiating back pain unchanged from baseline but is otherwise asymptomatic. Denies chest pain, palpitations, shortness of breath, abdominal pain, nausea or vomiting. No fevers or chills. ROS All systems reviewed and are negative except as per history of present illness. Medications Home Meds Active Scripts Azithromycin* (Zithromax*) 250 Mg Tablet, 250 MG PO DAILY for 4 Days, TAB Prov:MARLON VALLES MD 03/10/17 Reported Medications Metoprolol Tartrate* (Lopressor*) 25 Mg Tab, 25 MG PO BID, #60 TAB 12/10/16 Valsartan* (Diovan*) 160 Mg Tablet, 160 MG PO DAILY, TAB 12/10/16 Naproxen* (Aleve*) 220 Mg Capsule, 220 MG PO DAILY 11/13/13 Aspirin (Aspirin) 81 Mg Tablet.dr, 81 MG PO DAILY 11/13/13 Simvastatin (Simvastatin) 20 Mg Tablet, 20 MG PO HS 11/13/13 Allopurinol* (Zyloprim*) 300 Mg Tablet, 300 MG PO DAILY 11/13/13 Allergies Allergies: Coded Allergies: Penicillins (Verified Allergy, Unknown, DIZZY, DIAPHORETIC AFTER LARGE DOSE AT AGE 19, 12/12/16) adhesive (Verified Allergy, Unknown, 12/10/16) latex (Verified Allergy, Unknown, 12/10/16) PMhx/Soc History of Surgery: Yes (Appendectomy, Tonsilatis, Ankle , Knee, Elbow, Stenosis, Kypoplasti, ) Anesthesia Reaction: No Hx Neurological Disorder: No Hx Respiratory Disorders: No Hx Cardiac Disorders: Yes (Afib) Hx Psychiatric Problems: No Hx Miscellaneous Medical Probl: Yes (Prostate cancer/ ON DIALYSIS) Hx Alcohol Use: Yes Hx Substance Use: Yes (Smoke Marjuana / HX OF COCAINE USE IN YOUTH.) Hx Tobacco Use: Yes (QUIT 12 YEARS AGO) FmHx No relevant to presenting complaint Physical Exam Vitals Vital Signs Date Time Temp Pulse Resp B/P Pulse Ox O2 Delivery O2 Flow Rate FiO2 04/21/17 10:44 97.6 71 19 100/55 98 Physical Exam Const: Alert, no acute distress Head: Atraumatic Eyes: Normal Conjunctiva ENT: Normal External Ears, Nose and Mouth. Neck: Full range of motion. No JVD. Resp: Clear to auscultation bilaterally Cardio: Regular rate and rhythm, no murmurs Abd: Soft, non tender, non distended. Normal bowel sounds Skin: No petechiae or rashes Back: No midline or flank tenderness Ext: No cyanosis, or edema. PermCath right thigh protruding approximately 4cm. No tenderness, bleeding, erythema, induration or drainage. Neur: Awake and alert Psych: Normal Mood and Affect Result Diagram: 04/22/17 0430 04/22/17 0430 Results 24 hrs Laboratory Tests Test 04/21/17 16:25 04/21/17 16:48 White Blood Count 22.210^3/ul Red Blood Count 4.0710^6/ul Hemoglobin 11.7g/dl Hematocrit 36.8% Mean Corpuscular Volume 90.4fl Mean Corpuscular Hemoglobin 28.7pg Mean Corpuscular Hemoglobin Concent 31.8g/dl Red Cell Distribution Width 16.2% Platelet Count 01939^3/UL Mean Platelet Volume 10.6fl Neutrophils % 88.1% Lymphocytes % 6.0% Monocytes % 4.4% Eosinophils % 0.4% Basophils % 0.5% Nucleated Red Blood Cells % 0.0/100WBC Neutrophils # 19.510^3/ul Lymphocytes # 1.310^3/ul Monocytes # 1.010^3/ul Eosinophils # 0.110^3/ul Basophils # 0.110^3/ul Nucleated Red Blood Cells # 0.010^3/ul Prothrombin Time 13.7Sec 14.0Sec Prothrombin Time Ratio 1.1 1.1 INR International Normalized Ratio 1.05 1.08 Activated Partial Thromboplast Time 30.8Sec 36.5Sec Sodium Level 134mmol/L Potassium Level 3.3mmol/L Chloride Level 99mmol/L Carbon Dioxide Level 22mmol/L Anion Gap 16 Blood Urea Nitrogen 53mg/dl Creatinine 5.10mg/dl Glucose Level 83mg/dl Calcium Level 8.8mg/dl Free Thyroxine 1.74ng/dl Current Medications Medications (Trade) Dose Ordered Sig/Julianne Route PRN Reason Start Time Stop Time Status Last Admin Dose Admin IV Flush (NS 3 ml) 3 ml PER PROTOCOL IV 04/21/17 18:30 Ondansetron HCl (Zofran Inj) 4 mg Q6H PRN IV NAUSEA AND/OR VOMITING 04/21/17 18:30 Acetaminophen (Tylenol Tab) 650 mg Q6H PRN PO PAIN LEVEL 1-3 OR FEVER 04/21/17 18:30 Acetaminophen/ Hydrocodone Bitart (Manning (5/325)) 1 tab Q6H PRN PO MODERATE PAIN LEVEL 4-6 04/21/17 18:30 Morphine Sulfate (morphine) 2 mg Q4H PRN IV SEVERE PAIN LEVEL 7-10 04/21/17 18:30 Docusate Sodium (Colace) 100 mg Q12H PRN PO CONSTIPATION 04/21/17 18:30 Magnesium Hydroxide (Milk Of Mag) 30 ml DAILY PRN PO CONSTIPATION 04/21/17 18:30 Sodium Biphosphate/ Sodium Phosphate (Fleet Enema) 133 ml DAILY PRN [place] CONSTIPATION 04/21/17 18:30 Lorazepam (Ativan) 0.5 mg Q6H PRN IV ANXIETY 04/21/17 18:30 Albuterol/ Ipratropium (Duoneb) 3 ml Q4H RESP THERAPY PRN HHN SHORTNESS OF BREATH 04/21/17 18:30 Hydralazine HCl (Apresoline) 10 mg Q6H PRN IV ELEVATED BLOOD PRESSURE 04/21/17 18:30 Nitroglycerin (Nitroglycerin (Sl Tab) 0.4 Mg) 1 tab Q5M PRN SL ANGINA 04/21/17 18:30 Procedures/MDM DOCUMENTS REVIEWED: ED nurse, prior ED, prior records, prior imaging including recent CT scan of the lumbar thoracic spine. MEDICAL DECISION MAKIN-year-old male with extensive medical history including hypertension, hyperlipidemia, chronic back pain, discitis and end- stage renal disease on dialysis T//Sat referred to ED from dialysis this morning for dialysis catheter replacement. Discussed with interventional radiology Dr. Trung De Anda who recommends admission, as patient will need an anesthesiology, and the procedure can be scheduled for tomorrow morning. No hyperkalemia or volume overload. Counseled patient regarding diagnosis, diagnostic results and plan for admission. CALLS/CONSULTS: Time 15:55, Dr. Trung De Anda, Recommends admission as will require anesthesia consultand will schedule dialysis catheter placement in the morning.. PATIENT CARE TRANSITIONED: Time: 17:00, Dr. Miramontes. Departure Diagnosis: Primary Impression: Hemodialysis catheter malfunction Qualified Code: T82.41XA - Hemodialysis catheter dysfunction, initial encounter Additional Impressions: ESRD (end stage renal disease) on dialysis Chronic low back pain Qualified Code: M54.5 - Chronic low back pain, unspecified back pain laterality, with sciatica presence unspecified Condition: Serious BRENDAN ANAND MD Apr 21, 2017 16:06
[2017-04-21 16:54] LABS: BASOPHIL # 0.1 10^3/ul (0.0-0.1); BASOPHILS % 0.5 % (0.0-2.0); EOSINOPHILS # 0.1 10^3/ul (0.0-0.5); EOSINOPHILS % 0.4 % (0.0-7.0); HEMATOCRIT 36.8 % (42.0-52.0); HEMOGLOBIN 11.7 g/dl (14.0-18.0); LYMPHOCYTES # 1.3 10^3/ul (0.8-2.9); MEAN CORPUSCULAR HEMOGLOBIN 28.7 pg (29.0-33.0); MEAN CORPUSCULAR HGB CONC 31.8 g/dl (32.0-37.0); MEAN CORPUSCULAR VOLUME 90.4 fl (82.0-101.0); MEAN PLATELET VOLUME 10.6 fl (7.4-10.4); MONOCYTES % 4.4 % (0.0-11.0); NEUTROPHIL # 19.5 10^3/ul (1.6-7.5); NEUTROPHILS % 88.1 % (39.0-77.0); PLATELET COUNT 272 10^3/UL (140-415); RED BLOOD COUNT 4.07 10^6/ul (4.70-6.10); RED CELL DISTRIBUTION WIDTH 16.2 % (11.5-14.5); WHITE BLOOD COUNT 22.2 10^3/ul (4.8-10.8)
[2017-04-21 17:06] LABS: INR 1.05; PROTIME 13.7 Sec (12.2-14.2); PT RATIO 1.1
[2017-04-21 17:07] LABS: PARTIAL THROMBOPLASTIN TIME 30.8 Sec (25.0-35.0)
[2017-04-21 17:23] LABS: CALCIUM 8.8 mg/dl (8.4-10.2); CREATININE 5.1 mg/dl (0.61-1.24); POTASSIUM 3.3 mmol/L (3.5-5.1)
[2017-04-21] MEDS ORDERED: NACL 0.9% 3 ML SYG IV SCH (18:30)
[2017-04-21] MEDS ORDERED: MAGNESIUM HYDROXIDE 30ML CUP PO PRN (18:30)
[2017-04-21] MEDS ORDERED: hydrALAzine 20 MG INJ IV PRN (18:30)
[2017-04-21] MEDS ORDERED: morphine 2 MG INJ IV PRN (18:30)
[2017-04-21] MEDS ORDERED: DOCUSATE SODIUM 100 MG CAP PO PRN (18:30)
[2017-04-21] MEDS ORDERED: ONDANSETRON 4 MG INJ IV PRN ×2 (18:30→19:00)
[2017-04-21] MEDS ORDERED: LORAZEPAM 2 MG INJ IV PRN (18:30)
[2017-04-21] MEDS ORDERED: NA PHOSPHATE/BIPHOS 133 ML ENEMA PR PRN (18:30)
[2017-04-21] MEDS ORDERED: ALBUTEROL/IPRATROPIUM (NEB) 3 ML AMP HHN PRN (18:30)
[2017-04-21] MEDS ORDERED: HYDROCODONE/APAP (5/325) TAB PO PRN (18:30)
[2017-04-21] MEDS ORDERED: NITROGLYCERIN (SL) 0.4 MG TAB SL PRN (18:30)
[2017-04-21] MEDS ORDERED: ACETAMINOPHEN 325 MG TAB PO PRN ×2 (18:30→19:00)
--- NOTE | 2017-04-21 19:59 | HP ---
DATE OF ADMISSION: 04/21/2017 CHIEF COMPLAINT: Dialysis catheter malfunction. HISTORY OF PRESENT ILLNESS: The patient is a 71-year-old male with past medical history of essential hypertension, high cholesterol, chronic back pain. Prior diskitis and osteomyelitis. End-stage renal disease, on dialysis. He was sent in by kidney doctor for dialysis catheter placement. Apparently, the patient was discharged from [facility] days ago, and he has been having his dialysis catheter protruding from his right thigh and dialysis has not been able to be performed since that time. He complains of mild back pain, as well, nonradiating but denies any headaches or dizziness. No loss of consciousness. No upper lower GI bleeding. No fevers or chills. No nausea, vomiting. No diarrhea. No constipation. No chest pain or palpitations, or shortness of breath. The patient was last here at our hospital from 12/10/2016 to 01/26/2017 for urinary tract infection and T- spine osteomyelitis, and diskitis and at that time sepsis. PAST MEDICAL HISTORY: As above. Atrial fibrillation, gout, and prostate cancer. ALLERGIES: PENICILLIN, ADHESIVES AND LATEX. MEDICATIONS: Include azithromycin 250 mg daily. Naproxen 220 mg daily. Allopurinol 300 mg daily. Aspirin 81 mg daily. Lopressor 25 mg twice daily. Simvastatin 20 mg every night at bedtime. Diovan 160 mg daily. PAST SURGICAL HISTORY: Patient had right hip arthroplasty in the past. Prostatectomy in the past. kyphoplasty in the past, left knee arthroscopic surgery in the past. Appendectomy in the past. Tonsillectomy in the past. SOCIAL HISTORY: Former alcohol abuse. Denies any tobacco use. Smokes marijuana occasionally. Former IV drug abuse as well. PHYSICAL EXAMINATION: VITAL SIGNS: T-max 97.6, pulse 71, respirations 20, blood pressure 100/55. Saturating 98 percent room air. GENERAL: Patient lying in bed, answers question appropriately. No acute distress. HEENT: Pupils equal, round, reactive. Extraocular muscles intact. NECK: Supple. No thyromegaly. LUNGS: Clear to auscultation bilaterally. CARDIOVASCULAR: S1, S2. No rubs, gallops. ABDOMEN: Soft, nontender, nondistended. Normal bowel sounds. No rebound or guarding. MUSCULOSKELETAL: PermCath in the right thigh. Otherwise, no lower extremity edema bilaterally. NEUROLOGIC: No focal deficits. LABS: WBC 22.2, hemoglobin 11.7, hematocrit 36.8, platelets of 272,000. Sodium 134, potassium 3.3, chloride 99, CO2 22, BUN of 53, creatinine 5.10. ASSESSMENT/PLAN: The patient is a 71-year-old male with hypertension, high cholesterol, end-stage renal disease, on dialysis. Prior osteomyelitis and diskitis at T-spine area, comes in with nonfunctioning dialysis catheter. 1. Malfunction dialysis catheter. End-stage renal disease. Admit the patient to telemetry floor. We will order for a procedure to have the catheter replaced. Get a renal consult as well. Check TSH, A1c and lipid panel. 2. Leukocytosis of unclear source. He does have a history of osteomyelitis and diskitis. No signs of any fevers. No signs of any sepsis. Otherwise, we will consider putting him on antibiotics for now and getting an Infectious disease consult. Follow culture results. 3. History of hypertension, blood pressure stable. Continue current blood pressure medicines. 4. High cholesterol. Monitor for now. Consider checking a lipid panel. 5. History of gout. Continue allopurinol. 6. End-stage renal disease, on dialysis. As mentioned in #1. Continue dialysis as scheduled. Once the catheter has been replaced. 7. History of osteomyelitis and diskitis. Again given no elevated white blood cell count, consider putting patient on antibiotic and get an Infectious disease consult. 8. Deep venous thrombosis prophylaxis. Heparin subcu. 9. Gastrointestinal prophylaxis. Proton pump inhibitor. Dictated By: Obdulio Miramontes MD /lizzy/pineda /Document#: [id number]
[2017-04-21 20:26] VITALS: TEMP 98
[2017-04-21 20:30] LABS: INR 1.08; PT RATIO 1.1
[2017-04-21] MEDS ORDERED: LEVOFLOXACIN 750MG/D5W (PMX) 150 ML IVPB SCH (20:30)
[2017-04-21 20:31] LABS: PARTIAL THROMBOPLASTIN TIME 36.5 Sec (25.0-35.0)
--- NOTE | 2017-04-21 20:40 | CONS ---
Date/Time of Note Date/Time of Note DATE: 04/21/17 TIME: 20:39 Assessment/Plan Assessment/Plan Additional Assessment/Plan 1. Acute on chronic back pain 2. Catheter malfunction , missed HD 3. ESRD on HD 4. leucocytosis with WBC 22.0 uncleare sournce, H/o Osteomyelitis of T spine treated with IV abx for 3 months, rule out sepsis 5. Hypertension 6. Hyperlipidemia 7. H/o Prostate CA< H/o gout, H/o Atrial fibrillatino Plan : seen in ED< going to Med/surge floor IR guided exchange of HD catheter Paln for HD tomorrow after catheter exachange will order MRI thoracic and MRI lumbar spine to follow up on his OM changes K replacement,r enal diet may need ID consult for his persistent leucocytosis, pt has CT [facility] and was supposed to see ID physician as outpatient. Thanks for consultation, we will continue to follow up on that. Consultation Date/Type/Reason Admit Date/Time 04/21/2017 Date of Consultation: Apr 21, 2017 Type of Consultation: NEPHROLOGY Reason for Consultation ESRD on HD< clotted Catheter, missed HD, acute on chronic back pain Referring Provider: HAVEN SANDOVAL of Present Illness 71-year-old male with past medical history of essential hypertension, high cholesterol, chronic back pain. Prior diskitis and osteomyelitis. End-stage renal disease, on dialysis. He was sent in by kidney doctor for dialysis catheter placement. Apparently, the patient was discharged from [facility] 2 days ago, and he has been having his dialysis catheter protruding from his right thigh and dialysis has not been able to be performed since that time. He complains of mild back pain, as well, nonradiating but denies any headaches or dizziness. No loss of consciousness. No upper lower GI bleeding. No fevers or chills. No nausea, vomiting. No diarrhea. No constipation. No chest pain or palpitations, or shortness of breath. He was last admitted to [facility] from 12/10/2016 to 01/26/2017 for urinary tract infection and T- spine osteomyelitis, and diskitis and at that time sepsis.. he was sent from HD unit for clotted HD catheter and pt missed his HD due to not available HD access. Constitutional: poor po Eyes: no complaints ENT: no complaints Respiratory: cough, pain, pleuritic pain Cardiovascular: no complaints Gastrointestinal: no complaints Genitourinary: no complaints Musculoskeletal: back pain, bone/joint pain, restricted range of motion, swelling Skin: no complaints Neurologic: no complaints Endocrine: no complaints Lymphatic: no complaints Psychological: no complaints Immunologic: no complaints Past Medical History Medical History: high cholesterol, hypertension, other (Gout,prostate CA , ESRD on HD) Past Surgical History Past Surgical Hx: other (Permcath placement, Temporary danielle Placement ) Family History Significant Family History: no pertinent family hx Social History Alcohol Use: none Smoking Status: Former smoker Drug Use: none Exam/Review of Systems Vital Signs Vitals Vital Signs Date Time Temp Pulse Resp B/P Pulse Ox O2 Delivery O2 Flow Rate FiO2 04/21/17 20:26 98.0 60 20 127/76 98 Room Air Exam Constitutional: alert Psych: no complaints Head: normocephalic Eyes: nl conjunctiva ENMT: nl external ears & nose Neck: non-tender, supple Respiratory: clear to auscultation, diminished breath sounds, normal air movement Cardiovascular: nl pulses, regular rate and rhythm Gastrointestinal: firm, non-tender, soft Musculoskeletal: joint tenderness, muscle weakness, nl extremities to inspection Extremities: normal pulses 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 intact Skin: nl turgor Lymph: nl lymph nodes Results Result Diagram: 04/21/17 1625 04/21/17 1625 Results 24 hrs Laboratory Tests Test 04/21/17 16:25 04/21/17 16:48 White Blood Count 22.2 #H Red Blood Count 4.07 #L Hemoglobin 11.7 #L Hematocrit 36.8 #L Mean Corpuscular Volume 90.4 Mean Corpuscular Hemoglobin 28.7 L Mean Corpuscular Hemoglobin Concent 31.8 L Red Cell Distribution Width 16.2 H Platelet Count 272 # Mean Platelet Volume 10.6 H Neutrophils % 88.1 H Lymphocytes % 6.0 L Monocytes % 4.4 Eosinophils % 0.4 Basophils % 0.5 Nucleated Red Blood Cells % 0.0 Neutrophils # 19.5 H Lymphocytes # 1.3 Monocytes # 1.0 H Eosinophils # 0.1 Basophils # 0.1 Nucleated Red Blood Cells # 0.0 Prothrombin Time 13.7 14.0 Prothrombin Time Ratio 1.1 1.1 INR International Normalized Ratio 1.05 1.08 Activated Partial Thromboplast Time 30.8 36.5 H Sodium Level 134 L Potassium Level 3.3 L Chloride Level 99 Carbon Dioxide Level 22 Anion Gap 16 Blood Urea Nitrogen 53 H Creatinine 5.10 H Glucose Level 83 Calcium Level 8.8 Medications Medications Current Medications Ondansetron HCl (Zofran Inj) 4 mg Q6H PRN IV NAUSEA AND/OR VOMITING; Start at 18:30; Status UNV Acetaminophen (Tylenol Tab) 650 mg Q6H PRN PO PAIN LEVEL 1-3 OR FEVER; Start at 18:30; Status UNV Acetaminophen/ Hydrocodone Bitart ([place] (5/325)) 1 tab Q6H PRN PO MODERATE PAIN LEVEL 4-6; Start 04/21/17 at 18:30; Status UNV Morphine Sulfate (morphine) 2 mg Q4H PRN IV SEVERE PAIN LEVEL 7-10; Start 04/21 at 18:30; Status UNV Docusate Sodium (Colace) 100 mg Q12H PRN PO CONSTIPATION; Start 04/21/17 at 18: 30; Status UNV Magnesium Hydroxide (Milk Of Mag) 30 ml DAILY PRN PO CONSTIPATION; Start at 18:30; Status UNV Sodium Biphosphate/ Sodium Phosphate (Fleet Enema) 133 ml DAILY PRN [place] CONSTIPATION; Start 04/21/17 at 18:30; Status UNV Pantoprazole (Protonix Tab) 40 mg DAILY@06 PO ; Start 04/22/17 at 06:00; Status UNV Heparin Sodium (Porcine) (Heparin (5000 Units/0.5 ml)) 5,000 unit Q12 SC ; Start 04/21/17 at 21:00; Status UNV Lorazepam (Ativan) 0.5 mg Q6H PRN IV ANXIETY; Start 04/21/17 at 18:30; Status UNV Hydralazine HCl (Apresoline) 10 mg Q6H PRN IV ELEVATED BLOOD PRESSURE; Start at 18:30; Status UNV Nitroglycerin (Nitroglycerin (Sl Tab) 0.4 Mg) 1 tab Q5M PRN SL ANGINA; Start at 18:30; Status UNV Allopurinol (Zyloprim) 300 mg DAILY PO ; Start 04/22/17 at 09:00; Status UNV Aspirin (Halfprin) 81 mg DAILY PO ; Start 04/22/17 at 09:00; Status UNV Metoprolol Tartrate (Lopressor) 25 mg BID PO ; Start 04/21/17 at 21:00; Status UNV Valsartan (Diovan) 160 mg DAILY PO ; Start 04/22/17 at 09:00; Status UNV Miscellaneous Information 20 mg 20 mg HS PO ; Start 04/21/17 at 21:00; Status UNV Levofloxacin/ Dextrose 150 ml @ 100 mls/hr Q24H IVPB ; Start 04/21/17 at 20:30 ; Stop 04/22/17 at 01:00 Levofloxacin/ Dextrose (Levaquin 500mg/ D5W 100 ml (Pmx)) 100 ml @ 100 mls/hr Q48H IVPB ; Start 04/23/17 at 20:30 MADELYN MIRANDA MD Apr 21, 2017 20:40
[2017-04-21 21:00] VITALS: BP 137/61; PULSE 65; RESP 20; Ht 170.2 cm; Wt 70.7 kg
[2017-04-21 21:58] VITALS: BP 137/61; RESP 20
[2017-04-21] MEDS: ATORVASTATIN 10 MG TAB PO SCH (22:58)
[2017-04-21] MEDS: METOPROLOL 25 MG TAB PO SCH (22:59)
[2017-04-21] MEDS: HEPARIN 5,000 UNIT/0.5 ML VIAL SC SCH (23:00)
[2017-04-22 00:45] VITALS: BP 98/56; RESP 20
[2017-04-22 05:55] LABS: BASOPHIL # 0.1 10^3/ul (0.0-0.1); BASOPHILS % 0.6 % (0.0-2.0); EOSINOPHILS # 0.2 10^3/ul (0.0-0.5); EOSINOPHILS % 1.7 % (0.0-7.0); HEMOGLOBIN 9.9 g/dl (14.0-18.0); LYMPHOCYTES # 1.2 10^3/ul (0.8-2.9); LYMPHOCYTES % 9.6 % (15.0-51.0); MEAN CORPUSCULAR HGB CONC 30.9 g/dl (32.0-37.0); MEAN CORPUSCULAR VOLUME 90.7 fl (82.0-101.0); MEAN PLATELET VOLUME 10.2 fl (7.4-10.4); MONOCYTE # 0.7 10^3/ul (0.3-0.9); MONOCYTES % 5.7 % (0.0-11.0); NEUTROPHIL # 10.3 10^3/ul (1.6-7.5); NEUTROPHILS % 81.8 % (39.0-77.0); PLATELET COUNT 250 10^3/UL (140-415); RED BLOOD COUNT 3.53 10^6/ul (4.70-6.10); WHITE BLOOD COUNT 12.5 10^3/ul (4.8-10.8)
[2017-04-22] MEDS: PANTOPRAZOLE (EC) 40 MG TAB PO SCH (06:00)
[2017-04-22 06:30] LABS: CHOL/HDL RATIO 3.1 RATIO
[2017-04-22 06:34] LABS: CALCIUM 8.4 mg/dl (8.4-10.2); CREATININE 5.05 mg/dl (0.61-1.24); MAGNESIUM 1.9 mg/dl (1.7-2.5); PHOSPHORUS 5.1 mg/dl (2.5-4.9); POTASSIUM 3.9 mmol/L (3.5-5.1)
[2017-04-22 06:52] LABS: THYROID STIMULATING HORMONE 3.47 MIU/L (0.465-4.680)
[2017-04-22 07:29] VITALS: BP 102/57; RESP 18
[2017-04-22] MEDS: VALSARTAN 160 MG TAB PO SCH (08:44)
[2017-04-22] MEDS: ASPIRIN (EC) 81 MG TAB PO SCH (08:44)
[2017-04-22] MEDS: METOPROLOL 25 MG TAB PO SCH ×2 (08:44→21:00)
[2017-04-22] MEDS: HEPARIN 5,000 UNIT/0.5 ML VIAL SC SCH ×2 (08:45→21:09)
[2017-04-22] MEDS: ALLOPURINOL 300 MG TAB PO SCH (09:00)
--- NOTE | 2017-04-22 12:18 | PN ---
Date/Time of Note Date/Time of Note DATE: 04/22/17 TIME: 12:15 Assessment/Plan VTE Prophylaxis VTE Prophylaxis Intervention: heparin Lines/Catheters IV [facility] [place] Urinary Cath still in place: No Assessment/Plan Chief Complaint/Hosp Course ASSESSMENT/PLAN: The patient is a 71-year-old male with hypertension, high cholesterol, end-stage renal disease, on dialysis. Prior osteomyelitis and diskitis at T-spine area, comes in with nonfunctioning dialysis catheter. 1. Malfunction dialysis catheter. End-stage renal disease. -Follow-up with interventional radiology for procedure to have the catheter replaced. -Follow-up renal consult as wel, TSH, A1c and lipid panel. 2. Leukocytosis of unclear source. He does have a history of osteomyelitis and diskitis. No signs of any fevers. No signs of any sepsis. White blood cell count has decreased from 22,000 on the 12,000 -Continue broad-spectrum antibiotics for now -Follow-up MRI spine studies ordered earlier, and infectious disease consult recommendation, Follow culture results. 3. History of hypertension, blood pressure stable. Continue current blood pressure medicines. 4. High cholesterol. Monitor for now. Follow-up lipid panel. 5. History of gout. Continue allopurinol. 6. End-stage renal disease, on dialysis. As mentioned in #1. Continue dialysis as scheduled. Once the catheter has been replaced. 7. History of osteomyelitis and diskitis -See #2 8. Deep venous thrombosis prophylaxis. Heparin subcu. 9. Gastrointestinal prophylaxis. Proton pump inhibitor. Problems: Subjective 24 Hr Interval Summary Free Text/Dictation Patient seen by pulmonary team, presently off the floor at radiology. Exam/Review of Systems Vital Signs Vitals Vital Signs Date Time Temp Pulse Resp B/P Pulse Ox O2 Delivery O2 Flow Rate FiO2 04/22/17 07:29 98.4 74 18 102/57 100 04/21/17 21:00 Room Air Intake and Output 04/21/17 04/21/17 04/22/17 15:00 23:00 07:00 Intake Total 470 ml Output Total 150 ml Balance 320 ml Exam Physical exam: Patient presently off the floor at radiology procedure Results Result Diagram: 04/22/17 0430 04/22/17 0430 Results 24 hrs Laboratory Tests Test 04/21/17 16:25 04/21/17 16:48 04/22/17 04:30 04/22/17 04:31 White Blood Count 22.2 #H 12.5 #H Red Blood Count 4.07 #L 3.53 L Hemoglobin 11.7 #L 9.9 L Hematocrit 36.8 #L 32.0 L Mean Corpuscular Volume 90.4 90.7 Mean Corpuscular Hemoglobin 28.7 L 28.0 L Mean Corpuscular Hemoglobin Concent 31.8 L 30.9 L Red Cell Distribution Width 16.2 H 16.0 H Platelet Count 272 # 250 Mean Platelet Volume 10.6 H 10.2 Neutrophils % 88.1 H 81.8 H Lymphocytes % 6.0 L 9.6 L Monocytes % 4.4 5.7 Eosinophils % 0.4 1.7 Basophils % 0.5 0.6 Nucleated Red Blood Cells % 0.0 0.0 Neutrophils # 19.5 H 10.3 H Lymphocytes # 1.3 1.2 Monocytes # 1.0 H 0.7 Eosinophils # 0.1 0.2 Basophils # 0.1 0.1 Nucleated Red Blood Cells # 0.0 0.0 Prothrombin Time 13.7 14.0 Prothrombin Time Ratio 1.1 1.1 INR International Normalized Ratio 1.05 1.08 Activated Partial Thromboplast Time 30.8 36.5 H Sodium Level 134 L 137 Potassium Level 3.3 L 3.9 Chloride Level 99 103 Carbon Dioxide Level 22 24 Anion Gap 16 14 Blood Urea Nitrogen 53 H 60 H Creatinine 5.10 H 5.05 H Glucose Level 83 88 Calcium Level 8.8 8.4 Free Thyroxine 1.74 Hemoglobin A1c 4.5 Phosphorus Level 5.1 H Magnesium Level 1.9 Triglycerides Level 114 Cholesterol Level 88 L LDL Cholesterol, Calculated 37 HDL Cholesterol 28 L Cholesterol/HDL Ratio 3.1 Thyroid Stimulating Hormone (TSH) 3.470 Medications Medications Current Medications Ondansetron HCl (Zofran Inj) 4 mg Q6H PRN IV NAUSEA AND/OR VOMITING; Start at 18:30 Acetaminophen (Tylenol Tab) 650 mg Q6H PRN PO PAIN LEVEL 1-3 OR FEVER; Start at 18:30 Acetaminophen/ Hydrocodone Bitart ([place] (5/325)) 1 tab Q6H PRN PO MODERATE PAIN LEVEL 4-6; Start 04/21/17 at 18:30 Morphine Sulfate (morphine) 2 mg Q4H PRN IV SEVERE PAIN LEVEL 7-10; Start 04/21 at 18:30 Docusate Sodium (Colace) 100 mg Q12H PRN PO CONSTIPATION; Start 04/21/17 at 18: 30 Magnesium Hydroxide (Milk Of Mag) 30 ml DAILY PRN PO CONSTIPATION; Start at 18:30 Sodium Biphosphate/ Sodium Phosphate (Fleet Enema) 133 ml DAILY PRN [place] CONSTIPATION; Start 04/21/17 at 18:30 Pantoprazole (Protonix Tab) 40 mg DAILY@06 PO ; Start 04/22/17 at 06:00 Heparin Sodium (Porcine) (Heparin (5000 Units/0.5 ml)) 5,000 unit Q12 SC Last administered on 04/21/17 23:00; Admin Dose 5,000 UNIT; Start 04/21/17 at 21:00 Lorazepam (Ativan) 0.5 mg Q6H PRN IV ANXIETY; Start 04/21/17 at 18:30 Hydralazine HCl (Apresoline) 10 mg Q6H PRN IV ELEVATED BLOOD PRESSURE; Start at 18:30 Nitroglycerin (Nitroglycerin (Sl Tab) 0.4 Mg) 1 tab Q5M PRN SL ANGINA; Start at 18:30 Allopurinol (Zyloprim) 300 mg DAILY PO ; Start 04/22/17 at 09:00 Aspirin (Halfprin) 81 mg DAILY PO ; Start 04/22/17 at 09:00 Valsartan (Diovan) 160 mg DAILY PO ; Start 04/22/17 at 09:00 Atorvastatin Calcium 10 mg 10 mg DAILY@21 PO Last administered on 04/21/17 22: 58; Admin Dose 10 MG; Start 04/21/17 at 22:00 Levofloxacin/ Dextrose (Levaquin 500mg/ D5W 100 ml (Pmx)) 100 ml @ 100 mls/hr Q48H IVPB ; Start 04/23/17 at 20:30 Metoprolol Tartrate (Lopressor) 12.5 mg BID PO ; Start 04/22/17 at 21:00 HAVEN SANDOVAL Apr 22, 2017 12:18
--- NOTE | 2017-04-22 12:27 | RADRPT ---
PROCEDURE: MRI Thoracic spine without contrast CLINICAL INDICATION: BACK PAIN, osteomyelitis TECHNIQUE: An MRI of the thoracic spine was performed on a high resolution MRI scanner utilizing t he following sequences: Sagittal and axial T1 weighted, sagittal and axial T2 weighted, and sagitta l STIR. COMPARISON: Thoracic spine CT 04/15/2017, thoracic spine MRI 01/15/2017 FINDINGS: Redemonstrated abnormal T2 hyperintense signal with endplate erosive changes seen at T10-11 through T12-L1 with greatest involvement at T11-12. Moderate to severe pathologic fracture of T11 has progre ssed from 01/15/2017 with increased vertebral height loss. There is also mild compression fractures of T12. At T11-12 there is a 2 mm broad disc osteophyte complex and ligamentum flavum thickening res ulting in mild to moderate spinal canal stenosis. Extensive anterior paraspinal edema is visualized surrounding the aorta, similar to prior. No definite epidural fluid collections seen on this noncont rast study. Multilevel upper thoracic disc space narrowing and discogenic degenerative endplate change seen with out significant upper thoracic spinal canal stenosis. Chronic moderate to severe L1 compression fracture with evidence of prior vertebral augmentation. Partially imaged cervical spine degenerative changes with mild to moderate spinal canal stenosis C2- 3, C4-5, C5-6 and C6-7. Moderate spinal canal narrowing C3-4. IMPRESSION: Redemonstrated diskitis and osteomyelitis centered at T11-12 with additional involvement of T10-11 a nd T12-L1. Moderate to severe pathologic fracture of T11 has progressed since 01/15/2017 with increa sed vertebral height loss. No definite epidural fluid collection seen on this noncontrast study. At T11-12 there is a 2 mm broad disc osteophyte complex and ligamentum flavum thickening resulting i n mild to moderate spinal canal stenosis. Mild compression fracture of T12. Chronic moderate to severe L1 compression fracture with evidence of prior vertebral augmentation. No high-grade upper thoracic spinal canal stenosis. Partially imaged degenerative changes of the cervical spine with moderate spinal canal narrowing C3- 4 and mild to moderate spinal canal narrowing at the remaining levels as detailed. RPTAT: AA .Cryil Castillo MD, MD Date Time Electronically viewed and signed by .Cyril Castillo MD, on 04/22/2017 12:27 .T/
--- NOTE | 2017-04-22 12:36 | RADRPT ---
PROCEDURE: MRI lumbar spine without contrast CLINICAL INDICATION: Back pain , osteomyelitis TECHNIQUE: An high-resolution MRI of the lumbar spine was performed utilizing the following sequen baribe: Sagittal and axial T1 weighted, sagittal and axial T2 weighted, and sagittal STIR. COMPARISON: Correlation CT lumbar spine 04/15/2017 , thoracic spine MRI 01/15/2017 FINDINGS: Redemonstrated abnormal T2 hyperintense signal with endplate erosive changes seen at T10-11 through T12-L1 with greatest involvement at T11-12. Moderate to severe pathologic fracture of T11 has progre ssed from 01/15/2017 with increased vertebral height loss. There is also mild compression fractures of T12. At T11-12 there is a 2 mm broad disc osteophyte complex and ligamentum flavum thickening res ulting in mild to moderate spinal canal stenosis. Extensive anterior paraspinal edema is visualized surrounding the aorta, similar to prior. No definite epidural fluid collection seen on this noncontr ast study. Mild T12 compression fracture. Chronic moderate to severe L1 compression fracture with evidence of prior vertebral augmentation. L1-2: Mild retropulsion of L1 results in mild narrowing of the thecal sac. Disc osteophyte complex and facet arthropathy at this level causes moderate left greater than right foraminal narrowing. L2-3: Hyperintense T2 signal of the disc with adjacent endplate erosive changes. 4 mm disc osteophy te complex and ligamentum flavum thickening results in moderate to severe spinal canal stenosis. AP thecal sac diameter of 4 mm. Moderate bilateral foraminal narrowing. Facet arthropathy. L3-4: 4 mm circumferential disc bulge, ligamentum flavum thickening and facet arthropathy results i n severe spinal canal stenosis. AP thecal sac diameter of 3 mm. Bilateral facet effusions are seen. Moderate to severe bilateral foraminal stenosis. L4-5: Hyperintense T2 signal of the disc with adjacent endplate erosive changes. Advanced facet art hropathy and bulging of posterior disc annulus results in severe spinal canal stenosis. Moderate rig ht and mild left foraminal narrowing. L5-S1: Severe disc height loss with advanced facet arthropathy and foraminal disc osteophytes causi ng mild-moderate bilateral foraminal narrowing. No significant spinal canal stenosis. IMPRESSION: Redemonstrated diskitis and osteomyelitis at T11-12 with progression of T11 moderate-severe patholog ic compression fracture since 01/15/2017. Diskitis osteomyelitis of T10-11 and T12-L1 noted. Mild T12 compression fracture. Chronic moderate to severe L1 compression fracture with evidence of prior vertebral augmentation. Multilevel lumbar degenerative changes with severe spinal canal stenosis L3-4 and L4-5 and moderate to severe spinal canal narrowing L3-4. Abnormal hyperintense T2 signal with erosive changes of the endplates at L2-3 and L4-5 are seen whic h may be due to discogenic disease but the possibility of superimposed diskitis at these levels is n ot excluded. RPTAT: AA .Cyril Castillo MD, Date Time Electronically viewed and signed by .Cyril Castillo MD, on 04/22/2017 12:36 .T/
[2017-04-22] MEDS ORDERED: LIDOCAINE 1% (MDV) 20 ML INJ ONE (12:59)
[2017-04-22] MEDS ORDERED: SOD CHLORIDE 0.9% 500 ML ONE (13:00)
[2017-04-22] MEDS ORDERED: HEPARIN 1000 UNITS/ML 10 ML INJ ONE (13:00)
[2017-04-22 14:00] VITALS: BP 129/60; RESP 18
--- NOTE | 2017-04-22 15:03 | CONS ---
Date/Time of Note Date/Time of Note DATE: 04/22/17 TIME: 15:00 Assessment/Plan Assessment/Plan Additional Assessment/Plan 1. Acute on chronic back pain 2. Catheter malfunction , missed HD 3. ESRD on HD TTS schedule at [facility] HD center 4. leucocytosis with WBC 22.0 uncleare sournce, H/o Osteomyelitis of T spine treated with IV abx for 3 months, rule out sepsis 5. Hypertension 6. Hyperlipidemia 7. H/o Prostate CA< H/o gout, H/o Atrial fibrillatino Plan : Plan for MRI Throacic and Lumbar spine today IR guided exchange of HD catheter Paln for HD tomorrow after catheter exachange renal diet ID consulted for leucocytosis and h/o OM of spine recently, finishd abx on . Consultation Date/Type/Reason Admit Date/Time Apr 21, 2017 at 18:54 Initial Consult Date 04/21/17 Type of Consultation: NEPHROLOGY Referring Provider: HAVEN SANDOVAL 24 HR Interval Summary Free Text/Dictation c/o back pian, awaiting MRI and Catheter exchange Exam/Review of Systems Vital Signs Vitals Vital Signs Date Time Temp Pulse Resp B/P Pulse Ox O2 Delivery O2 Flow Rate FiO2 04/22/17 07:29 98.4 74 18 102/57 100 04/21/17 21:00 Room Air Intake and Output 04/21/17 04/21/17 04/22/17 15:00 23:00 07:00 Intake Total 470 ml Output Total 150 ml Balance 320 ml Exam Constitutional: alert Respiratory: clear to auscultation, diminished breath sounds, normal air movement Cardiovascular: nl pulses, regular rate and rhythm Gastrointestinal: firm, non-tender, soft Musculoskeletal: joint tenderness, muscle weakness, nl extremities to inspection Extremities: normal pulses 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 intact Results Result Diagram: 04/22/17 0430 04/22/17 0430 Results 24 hrs Laboratory Tests Test 04/21/17 16:25 04/21/17 16:48 04/22/17 04:30 04/22/17 04:31 White Blood Count 22.2 #H 12.5 #H Red Blood Count 4.07 #L 3.53 L Hemoglobin 11.7 #L 9.9 L Hematocrit 36.8 #L 32.0 L Mean Corpuscular Volume 90.4 90.7 Mean Corpuscular Hemoglobin 28.7 L 28.0 L Mean Corpuscular Hemoglobin Concent 31.8 L 30.9 L Red Cell Distribution Width 16.2 H 16.0 H Platelet Count 272 # 250 Mean Platelet Volume 10.6 H 10.2 Neutrophils % 88.1 H 81.8 H Lymphocytes % 6.0 L 9.6 L Monocytes % 4.4 5.7 Eosinophils % 0.4 1.7 Basophils % 0.5 0.6 Nucleated Red Blood Cells % 0.0 0.0 Neutrophils # 19.5 H 10.3 H Lymphocytes # 1.3 1.2 Monocytes # 1.0 H 0.7 Eosinophils # 0.1 0.2 Basophils # 0.1 0.1 Nucleated Red Blood Cells # 0.0 0.0 Prothrombin Time 13.7 14.0 Prothrombin Time Ratio 1.1 1.1 INR International Normalized Ratio 1.05 1.08 Activated Partial Thromboplast Time 30.8 36.5 H Sodium Level 134 L 137 Potassium Level 3.3 L 3.9 Chloride Level 99 103 Carbon Dioxide Level 22 24 Anion Gap 16 14 Blood Urea Nitrogen 53 H 60 H Creatinine 5.10 H 5.05 H Glucose Level 83 88 Calcium Level 8.8 8.4 Free Thyroxine 1.74 Hemoglobin A1c 4.5 Phosphorus Level 5.1 H Magnesium Level 1.9 Triglycerides Level 114 Cholesterol Level 88 L LDL Cholesterol, Calculated 37 HDL Cholesterol 28 L Cholesterol/HDL Ratio 3.1 Thyroid Stimulating Hormone (TSH) 3.470 Medications Medications Current Medications Ondansetron HCl (Zofran Inj) 4 mg Q6H PRN IV NAUSEA AND/OR VOMITING; Start at 18:30 Acetaminophen (Tylenol Tab) 650 mg Q6H PRN PO PAIN LEVEL 1-3 OR FEVER; Start at 18:30 Acetaminophen/ Hydrocodone Bitart ([place] (5/325)) 1 tab Q6H PRN PO MODERATE PAIN LEVEL 4-6; Start 04/21/17 at 18:30 Morphine Sulfate (morphine) 2 mg Q4H PRN IV SEVERE PAIN LEVEL 7-10; Start 04/21 at 18:30 Docusate Sodium (Colace) 100 mg Q12H PRN PO CONSTIPATION; Start 04/21/17 at 18: 30 Magnesium Hydroxide (Milk Of Mag) 30 ml DAILY PRN PO CONSTIPATION; Start at 18:30 Sodium Biphosphate/ Sodium Phosphate (Fleet Enema) 133 ml DAILY PRN [place] CONSTIPATION; Start 04/21/17 at 18:30 Pantoprazole (Protonix Tab) 40 mg DAILY@06 PO ; Start 04/22/17 at 06:00 Heparin Sodium (Porcine) (Heparin (5000 Units/0.5 ml)) 5,000 unit Q12 SC Last administered on 04/21/17 23:00; Admin Dose 5,000 UNIT; Start 04/21/17 at 21:00 Lorazepam (Ativan) 0.5 mg Q6H PRN IV ANXIETY; Start 04/21/17 at 18:30 Hydralazine HCl (Apresoline) 10 mg Q6H PRN IV ELEVATED BLOOD PRESSURE; Start at 18:30 Nitroglycerin (Nitroglycerin (Sl Tab) 0.4 Mg) 1 tab Q5M PRN SL ANGINA; Start at 18:30 Allopurinol (Zyloprim) 300 mg DAILY PO ; Start 04/22/17 at 09:00 Aspirin (Halfprin) 81 mg DAILY PO ; Start 04/22/17 at 09:00 Valsartan (Diovan) 160 mg DAILY PO ; Start 04/22/17 at 09:00 Atorvastatin Calcium 10 mg 10 mg DAILY@21 PO Last administered on 04/21/17 22: 58; Admin Dose 10 MG; Start 04/21/17 at 22:00 Levofloxacin/ Dextrose (Levaquin 500mg/ D5W 100 ml (Pmx)) 100 ml @ 100 mls/hr Q48H IVPB ; Start 04/23/17 at 20:30 Metoprolol Tartrate (Lopressor) 12.5 mg BID PO ; Start 04/22/17 at 21:00 MADELYN MIRANDA MD Apr 22, 2017 15:03
--- NOTE | 2017-04-22 16:43 | RADRPT ---
PROCEDURE: PLACEMENT RIGHT COMMON FEMORAL VEIN TUNNELED DIALYSIS CATHETER. CLINICAL INDICATION: Renal failure. The existing right common femoral vein tunneled dialysis cathete r is partially removed. TECHNIQUE: Informed consent was obtained. Risks including bleeding and infection were explained to the patient. The patient understood and was willing to proceed. A procedural pause was performed. The patient's name, date of , and procedure to be performed were verified. The central line was inserted with all elements of maximal sterile barrier technique. All of the following were used: head covering, f acial mask, sterile gown, sterile gloves, a large sterile sheet, hand hygiene, and 2% chlorhexidine for cutaneous antisepsis. The right groin and right the upper thigh were prepped and draped in usu al sterile fashion. Following the local injection of Xylocaine, a 0.035 inch Amplatz guidewire was advanced through the existing tunneled dialysis catheter in the right common femoral vein. The existing catheter was madelin ted over the guidewire. The new 14.5-Dominican 33 cm long Palindrome dialysis catheter was advanced over the guidewire and the tip of the catheter was confirmed in position within the mid to lower inferior vena cava. The 2 ports were then each flushed with 0.3 ml of 1:1000 heparin. The catheter was secured to the sk in with 2-0 silk. The site was dressed. The patient tolerated the procedure well. COMPARISON: None. FINDINGS: Final radiographic images demonstrate the tip of the catheter in the mid to lower inferior vena cava . A total of 0.1 minutes of fluoroscopy time was used. 9 images of the abdomen and pelvis were obt ained with image intensifier. IMPRESSION: 1. Satisfactory replacement of tunneled right femoral dialysis catheter. RPTAT: QQ .Trung De Anda MD, Date Time Electronically viewed and signed by .Trung De Anda MD, on 04/22/2017 16:42 .R/
[2017-04-22] MEDS ORDERED: VANCOMYCIN IV PER PHARMACY XX SCH (17:30)
[2017-04-22] MEDS ORDERED: VANCOMYCIN 1.5 GM in SOD CHLORIDE 0.9% 250 ML IVPB SCH (18:00)
[2017-04-22 21:01] VITALS: BP 111/56; RESP 20
[2017-04-22] MEDS: ATORVASTATIN 10 MG TAB PO SCH (21:06)
[2017-04-23] VITALS (10 sets, daily range): BP systolic 108–127; BP diastolic 52–62; PULSE 70–84; RESP 18
--- NOTE | 2017-04-23 02:47 | PN ---
DATE: 04/22/2017 REQUESTING PHYSICIANS: Obdulio Miramontes MD and Dr. Juan Avalos MD. Thank you for this consultation. HISTORY OF PRESENT ILLNESS: This is a 71-year-old, white man, well known to our service from previous admissions to [facility]. 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 The patient completed acute rehabilitation and physical therapy [facility] . He said physical therapy made his back pain worse and had been having increased pain over the last week. He was admitted for hemodialysis catheter occlusion, status post new right femoral tunnel catheter placement. The patient had a repeat thoracolumbar spine MRI that demonstrated discitis and osteomyelitis centered at T11- 12, with additional involvement of T10, T11, and T12-L1. There is a moderate to severe pathologic fracture of T11 that has progressed since 01/15/2017. No definite epidural fluid collection. Mild compression fracture of T12, chronic moderate to severe L1 compression fracture with evidence of prior vertebral augmentation. The patient is on Levaquin. PAST MEDICAL HISTORY: As per history of present illness. SOCIAL HISTORY: The patient came from home. He was at the rehabilitation facility prior to that. He has a history of alcohol abuse. REVIEW OF SYSTEMS: As per history of present illness. The patient state his back pain became progressively worse. He denies fevers, chills, nausea, vomiting, or diarrhea. VITAL SIGNS: On admission to [facility], temperature 97.6, pulse 71, respirations 19, blood pressure 100/55, saturation 98 on room air. WBC 22.2, H and H 11.7 and 36.8, platelets 272, neutrophils 88.1. MICROBIOLOGY: No cultures sent. INDWELLINGS: Right femoral PermCath. PHYSICAL EXAMINATION: GENERAL: This is well nourished, well developed, white elderly man, who is alert in no distress. HEENT: Head is atraumatic and normocephalic. Sclerae are anicteric. Buccal mucosa is pink. NECK: Supple. LUNGS: Chest rise is symmetrical. Breath sounds are clear. HEART: S1, S2. ABDOMEN: Soft. Bowel sounds are present. EXTREMITIES: Without cyanosis. SKIN: No jaundice. No rashes. No cyanosis. IMPRESSION: This is a 71-year-old white man with numerous medical problems who was admitted with PermCath occlusions status post new PermCath placement. Repeat MRI of the thoracolumbar spine showing a re-demonstration of discitis with osteomyelitis and multiple pathologic fractures. The patient was previously treated with vancomycin and Rocephin. He is currently on Levaquin. We are going to order blood cultures and then start him on vancomycin. Consider ortho surgery evaluation. The patient will require long-term IV antibiotics. Discussed with patient at length. Discussed with Dr. Camacho Szymanski. JENNIFER Avalos and Dr Miramontes Dictated By: Wilbert Munoz NP /lizzy/anthony /Document#: [id number] IGNACIO
[2017-04-23] MEDS: PANTOPRAZOLE (EC) 40 MG TAB PO SCH (05:20)
[2017-04-23 07:23] LABS: BASOPHILS % 0.5 % (0.0-2.0); EOSINOPHILS # 0.1 10^3/ul (0.0-0.5); EOSINOPHILS % 1.4 % (0.0-7.0); HEMATOCRIT 27.9 % (42.0-52.0); HEMOGLOBIN 8.8 g/dl (14.0-18.0); LYMPHOCYTES # 0.9 10^3/ul (0.8-2.9); LYMPHOCYTES % 15.2 % (15.0-51.0); MEAN CORPUSCULAR HEMOGLOBIN 28.2 pg (29.0-33.0); MEAN CORPUSCULAR HGB CONC 31.5 g/dl (32.0-37.0); MEAN CORPUSCULAR VOLUME 89.4 fl (82.0-101.0); MEAN PLATELET VOLUME 9.8 fl (7.4-10.4); MONOCYTE # 0.2 10^3/ul (0.3-0.9); MONOCYTES % 2.9 % (0.0-11.0); NEUTROPHIL # 4.6 10^3/ul (1.6-7.5); NEUTROPHILS % 79.8 % (39.0-77.0); PLATELET COUNT 229 10^3/UL (140-415); RED BLOOD COUNT 3.12 10^6/ul (4.70-6.10); RED CELL DISTRIBUTION WIDTH 16.2 % (11.5-14.5); WHITE BLOOD COUNT 5.8 10^3/ul (4.8-10.8)
[2017-04-23 08:22] LABS: CREATININE 4.31 mg/dl (0.61-1.24); POTASSIUM 3.5 mmol/L (3.5-5.1)
[2017-04-23] MEDS: ASPIRIN (EC) 81 MG TAB PO SCH (10:26)
[2017-04-23] MEDS: ALLOPURINOL 300 MG TAB PO SCH (10:27)
[2017-04-23] MEDS: VALSARTAN 160 MG TAB PO SCH (10:27)
[2017-04-23] MEDS: METOPROLOL 25 MG TAB PO SCH ×2 (10:28→20:45)
[2017-04-23] MEDS: HEPARIN 5,000 UNIT/0.5 ML VIAL SC SCH ×2 (10:30→20:49)
--- NOTE | 2017-04-23 13:40 | CONS ---
Date/Time of Note Date/Time of Note DATE: 04/23/17 TIME: 13:39 Assessment/Plan Assessment/Plan Additional Assessment/Plan 1. Acute on chronic back pain 2. Catheter malfunction , missed HD 3. ESRD on HD TTS schedule at [facility] 4. leucocytosis with WBC 22.0 uncleare sournce, H/o Osteomyelitis of T spine treated with IV abx for 3 months, rule out sepsis - WBC WNL 5. Hypertension 6. Hyperlipidemia 7. H/o Prostate CA< H/o gout, H/o Atrial fibrillatino Plan : -sp MRI Throacic and Lumbar spine today - IR guided exchange of HD catheter - HD, SP catheter exachange - renal diet - ID consulted for leucocytosis and h/o OM of spine recently, finishd abx on . Dw Dr Miguel Avalos Consultation Date/Type/Reason Admit Date/Time Apr 22, 2017 at 14:24 Initial Consult Date 04/21/17 Type of Consultation: NEPHROLOGY Referring Provider: HAVEN SANDOVAL Exam/Review of Systems Vital Signs Vitals Vital Signs Date Time Temp Pulse Resp B/P Pulse Ox O2 Delivery O2 Flow Rate FiO2 04/23/17 10:57 97.6 83 18 127/61 96 04/21/17 21:00 Room Air Intake and Output 04/22/17 04/22/17 04/23/17 15:00 23:00 07:00 Intake Total 120 ml 600 ml Output Total 290 ml Balance -170 ml 600 ml Exam Constitutional: alert, well developed Respiratory: clear to auscultation Cardiovascular: nl pulses, regular rate and rhythm Gastrointestinal: non-tender, soft Neurological: nl speech Results Result Diagram: 04/23/17 0710 04/23/17 0710 Results 24 hrs Laboratory Tests Test 04/22/17 19:16 04/23/17 07:10 Erythrocyte Sedimentation Rate 57 H C-Reactive Protein 6.4 H White Blood Count 5.8 # Red Blood Count 3.12 L Hemoglobin 8.8 L Hematocrit 27.9 L Mean Corpuscular Volume 89.4 Mean Corpuscular Hemoglobin 28.2 L Mean Corpuscular Hemoglobin Concent 31.5 L Red Cell Distribution Width 16.2 H Platelet Count 229 Mean Platelet Volume 9.8 Neutrophils % 79.8 H Lymphocytes % 15.2 Monocytes % 2.9 Eosinophils % 1.4 Basophils % 0.5 Nucleated Red Blood Cells % 0.0 Neutrophils # 4.6 Lymphocytes # 0.9 Monocytes # 0.2 L Eosinophils # 0.1 Basophils # 0.0 Nucleated Red Blood Cells # 0.0 Sodium Level 134 L Potassium Level 3.5 Chloride Level 105 Carbon Dioxide Level 21 Anion Gap 12 Blood Urea Nitrogen 57 H Creatinine 4.31 H Glucose Level 101 Calcium Level 8.0 L Medications Medications Current Medications Ondansetron HCl (Zofran Inj) 4 mg Q6H PRN IV NAUSEA AND/OR VOMITING; Start at 18:30 Acetaminophen (Tylenol Tab) 650 mg Q6H PRN PO PAIN LEVEL 1-3 OR FEVER; Start at 18:30 Acetaminophen/ Hydrocodone Bitart ([place] (5/325)) 1 tab Q6H PRN PO MODERATE PAIN LEVEL 4-6; Start 04/21/17 at 18:30 Morphine Sulfate (morphine) 2 mg Q4H PRN IV SEVERE PAIN LEVEL 7-10; Start 04/21 at 18:30 Docusate Sodium (Colace) 100 mg Q12H PRN PO CONSTIPATION; Start 04/21/17 at 18: 30 Magnesium Hydroxide (Milk Of Mag) 30 ml DAILY PRN PO CONSTIPATION; Start at 18:30 Sodium Biphosphate/ Sodium Phosphate (Fleet Enema) 133 ml DAILY PRN [place] CONSTIPATION; Start 04/21/17 at 18:30 Pantoprazole (Protonix Tab) 40 mg DAILY@06 PO Last administered on 04/23/17 05 :20; Admin Dose 40 MG; Start 04/22/17 at 06:00 Heparin Sodium (Porcine) (Heparin (5000 Units/0.5 ml)) 5,000 unit Q12 SC Last administered on 04/23/17t 10:30; Admin Dose 5,000 UNIT; Start 04/21/17 at 21:00 Lorazepam (Ativan) 0.5 mg Q6H PRN IV ANXIETY; Start 04/21/17 at 18:30 Hydralazine HCl (Apresoline) 10 mg Q6H PRN IV ELEVATED BLOOD PRESSURE; Start at 18:30 Nitroglycerin (Nitroglycerin (Sl Tab) 0.4 Mg) 1 tab Q5M PRN SL ANGINA; Start at 18:30 Allopurinol (Zyloprim) 300 mg DAILY PO Last administered on 04/23/17 10:27; Admin Dose 300 MG; Start 04/22/17 at 09:00 Aspirin (Halfprin) 81 mg DAILY PO Last administered on 04/23/17 10:26; Admin Dose 81 MG; Start 04/22/17 at 09:00 Valsartan (Diovan) 160 mg DAILY PO Last administered on 04/23/17 10:27; Admin Dose 160 MG; Start 04/22/17 at 09:00 Atorvastatin Calcium 10 mg 10 mg DAILY@21 PO Last administered on 04/22/17 21: 06; Admin Dose 10 MG; Start 04/21/17 at 22:00 Levofloxacin/ Dextrose (Levaquin 500mg/ D5W 100 ml (Pmx)) 100 ml @ 100 mls/hr Q48H IVPB ; Start 04/23/17 at 20:30 Metoprolol Tartrate (Lopressor) 12.5 mg BID PO Last administered on 04/23/17 10:28; Admin Dose 12.5 MG; Start 04/22/17 at 21:00 Miscellaneous Information (*Rx Drug Level Order Reminder*) RANDOM VANCOMYCIN LEVEL 9... ONCE ONCE XX ; Start 04/24/17 at 05:00; Stop 04/24/17 at 05:01 МАРИНА DOSHI Apr 23, 2017 13:40
--- NOTE | 2017-04-23 14:44 | PN ---
Date/Time of Note Date/Time of Note DATE: 04/23/17 TIME: 14:41 Assessment/Plan VTE Prophylaxis VTE Prophylaxis Intervention: heparin Lines/Catheters IV [facility]from [facility] [place] Urinary Cath still in place: No Assessment/Plan Chief Complaint/Hosp Course ASSESSMENT/PLAN: The patient is a 71-year-old male with hypertension, high cholesterol, end-stage renal disease, on dialysis. Prior osteomyelitis and diskitis at T-spine area, comes in with nonfunctioning dialysis catheter. 1. Malfunction dialysis catheter. End-stage renal disease. -Follow-up with interventional radiology for procedure to have the catheter replaced. -Follow-up renal consult as wel, TSH, A1c and lipid panel. 2. Leukocytosis- He does have a history of osteomyelitis and diskitis. This appeared worsening on the MRI T and L spines performed 24 hours ago. No signs of any fevers. No signs of any sepsis. White blood cell count has decreased from 22,000 since admission to normal range today 5000. ESR and CRP are still elevated, but improved since January 2017 when they were last drawn. -Continue broad-spectrum antibiotics for now -Follow-up infectious disease, as well as neurosurgery and orthopedic recommendations, per discussion with neurosurgery team patient may need transfer to [facility] if he needs surgery given his morbidity, per them he appears to have continued erosion of T11-T12 adjacent bone. - follow culture results. 3. History of hypertension, blood pressure stable. Continue current blood pressure medicines. 4. High cholesterol. Monitor for now. Follow-up lipid panel. 5. History of gout. Continue allopurinol. 6. End-stage renal disease, on dialysis. As mentioned in #1. Continue dialysis as scheduled. Once the catheter has been replaced. 7. History of osteomyelitis and diskitis -See #2 8. Deep venous thrombosis prophylaxis. Heparin subcu. 9. Gastrointestinal prophylaxis. Proton pump inhibitor. Problems: Subjective 24 Hr Interval Summary Free Text/Dictation Patient had dialysis earlier today. Seen by orthopedic and neurosurgery teams early this morning per nursing staff. No fevers in the last 24 hours. Exam/Review of Systems Vital Signs Vitals Vital Signs Date Time Temp Pulse Resp B/P Pulse Ox O2 Delivery O2 Flow Rate FiO2 04/23/17 14:00 98.3 82 18 108/57 99 04/21/17 21:00 Room Air Intake and Output 904/22/17 04/23/17 15:00 23:00 07:00 Intake Total 120 ml 600 ml Output Total 290 ml Balance -170 ml 600 ml Exam GENERAL: Patient lying in bed, answers question appropriately. No acute distress. HEENT: Pupils equal, round, reactive. Extraocular muscles intact. NECK: Supple. No thyromegaly. LUNGS: Clear to auscultation bilaterally. CARDIOVASCULAR: S1, S2. No rubs, gallops. ABDOMEN: Soft, nontender, nondistended. Normal bowel sounds. No rebound or guarding. MUSCULOSKELETAL: PermCath in the right thigh. Otherwise, no lower extremity edema bilaterally. NEUROLOGIC: No focal deficits. Results Result Diagram: 04/23/17 0710 04/23/17 0710 Results 24 hrs Laboratory Tests Test 04/22/17 19:16 04/23/17 07:10 Erythrocyte Sedimentation Rate 57 H C-Reactive Protein 6.4 H White Blood Count 5.8 # Red Blood Count 3.12 L Hemoglobin 8.8 L Hematocrit 27.9 L Mean Corpuscular Volume 89.4 Mean Corpuscular Hemoglobin 28.2 L Mean Corpuscular Hemoglobin Concent 31.5 L Red Cell Distribution Width 16.2 H Platelet Count 229 Mean Platelet Volume 9.8 Neutrophils % 79.8 H Lymphocytes % 15.2 Monocytes % 2.9 Eosinophils % 1.4 Basophils % 0.5 Nucleated Red Blood Cells % 0.0 Neutrophils # 4.6 Lymphocytes # 0.9 Monocytes # 0.2 L Eosinophils # 0.1 Basophils # 0.0 Nucleated Red Blood Cells # 0.0 Sodium Level 134 L Potassium Level 3.5 Chloride Level 105 Carbon Dioxide Level 21 Anion Gap 12 Blood Urea Nitrogen 57 H Creatinine 4.31 H Glucose Level 101 Calcium Level 8.0 L Medications Medications Current Medications Ondansetron HCl (Zofran Inj) 4 mg Q6H PRN IV NAUSEA AND/OR VOMITING; Start at 18:30 Acetaminophen (Tylenol Tab) 650 mg Q6H PRN PO PAIN LEVEL 1-3 OR FEVER; Start at 18:30 Acetaminophen/ Hydrocodone Bitart ([place] (5/325)) 1 tab Q6H PRN PO MODERATE PAIN LEVEL 4-6; Start 04/21/17 at 18:30 Morphine Sulfate (morphine) 2 mg Q4H PRN IV SEVERE PAIN LEVEL 7-10; Start 04/21 at 18:30 Docusate Sodium (Colace) 100 mg Q12H PRN PO CONSTIPATION; Start 04/21/17 at 18: 30 Magnesium Hydroxide (Milk Of Mag) 30 ml DAILY PRN PO CONSTIPATION; Start at 18:30 Sodium Biphosphate/ Sodium Phosphate (Fleet Enema) 133 ml DAILY PRN [place] CONSTIPATION; Start 04/21/17 at 18:30 Pantoprazole (Protonix Tab) 40 mg DAILY@06 PO Last administered on 04/23/17 05 :20; Admin Dose 40 MG; Start 04/22/17 at 06:00 Heparin Sodium (Porcine) (Heparin (5000 Units/0.5 ml)) 5,000 unit Q12 SC Last administered on 04/23/17 10:30; Admin Dose 5,000 UNIT; Start 04/21/17 at 21:00 Lorazepam (Ativan) 0.5 mg Q6H PRN IV ANXIETY; Start 04/21/17 at 18:30 Hydralazine HCl (Apresoline) 10 mg Q6H PRN IV ELEVATED BLOOD PRESSURE; Start at 18:30 Nitroglycerin (Nitroglycerin (Sl Tab) 0.4 Mg) 1 tab Q5M PRN SL ANGINA; Start at 18:30 Allopurinol (Zyloprim) 300 mg DAILY PO Last administered on 04/23/17 10:27; Admin Dose 300 MG; Start 04/22/17 at 09:00 Aspirin (Halfprin) 81 mg DAILY PO Last administered on 04/23/17 10:26; Admin Dose 81 MG; Start 04/22/17 at 09:00 Valsartan (Diovan) 160 mg DAILY PO Last administered on 04/23/17 10:27; Admin Dose 160 MG; Start 04/22/17 at 09:00 Atorvastatin Calcium 10 mg 10 mg DAILY@21 PO Last administered on 04/22/17 21: 06; Admin Dose 10 MG; Start 04/21/17 at 22:00 Levofloxacin/ Dextrose (Levaquin 500mg/ D5W 100 ml (Pmx)) 100 ml @ 100 mls/hr Q48H IVPB ; Start 04/23/17 at 20:30 Metoprolol Tartrate (Lopressor) 12.5 mg BID PO Last administered on 04/23/17t 10:28; Admin Dose 12.5 MG; Start 04/22/17 at 21:00 Miscellaneous Information (*Rx Drug Level Order Reminder*) RANDOM VANCOMYCIN LEVEL 9... ONCE ONCE XX ; Start 04/24/17 at 05:00; Stop 04/24/17 at 05:01 HAVEN SANDOVAL Apr 23, 2017 14:44
--- NOTE | 2017-04-23 17:15 | CONS ---
Date/Time of Note Date/Time of Note DATE: 04/23/17 TIME: 17:01 Assessment/Plan Assessment/Plan Chief Complaint/Hosp Course ID PROGRESS NOTE: CURRENT ABX: Vanco IV + Levaquin * No fevers, doing OK, pain issues persist, calm PHYSICAL EXAMINATION: GENERAL: VSS, NAD, resting comfortably, calm woman who is awake in no distress. HEENT: Unremarkable NECK: Supple. CHEST: Rise symmetrical, without dyspnea on observation HEART: RRR ABDOMEN: Soft, NT EXT: warm ID ASSESSMENT: 71 yo M admit with: 1. SIRS w/Leukocytosis, elevated ESR => MRI SPINE w/re-demonstrated Diskitis/ osteomyelitis * 04/22/17 BCx (-) 2. PermCath occlusions status post new PermCath placement 04/22/17 3. Renal failure => HD depended 4. Hx of bilateral non-obstructive renal stones 5. Acute on chronic back pain -> Hx of diskitis at T11/12 border and osteomyelitis DECEMBER 2016 s/p previous ABX course DECEMBER 2016 with vancomycin and Rocephin. * 04/22/17 REPEAT MRI IMPRESSION: * Re-demonstrated diskitis and osteomyelitis at T11-12 with progression of T11 moderate-severe pathologic compression fracture since 01/15/2017. Diskitis osteomyelitis of T10-11 and T12-L1 noted. * Mild T12 compression fracture. * Chronic moderate to severe L1 compression fracture with evidence of prior vertebral augmentation. * Multilevel lumbar degenerative changes with severe spinal canal stenosis L3- 4 and L4-5 and moderate to severe spinal canal narrowing L3-4. * Abnormal hyperintense T2 signal with erosive changes of the endplates at L2- 3 and L4-5 are seen which may be due to discogenic disease but the possibility of superimposed diskitis at these levels is not excluded 6. Atrial fibrillation. 7. Hypertension. 8. History of polysubstance abuse -> alcohol abuse ?dementia?; hx of MJ/IVDU 9. Hx of falls 10. Hx of prostate cancer 11. Hx of tobacco -- Quit x 12 years (-) MRSA Nares ABX ALLERGY: PCN, Latex, Adhesive CURRENT ABX: Vanco IV + Levaquin ID RECOMMENDATIONS/PLAN: 1.Continue Vanco + Levaquin over the weekend -> likely needs repeat 6 week course ABX, probably lifelong . Problems: Consultation Date/Type/Reason Admit Date/Time Apr 22, 2017 at 14:24 Initial Consult Date 04/21/17 Type of Consultation: ID Referring Provider: HAVEN SANDOVAL Exam/Review of Systems Vital Signs Vitals Vital Signs Date Time Temp Pulse Resp B/P Pulse Ox O2 Delivery O2 Flow Rate FiO2 04/23/17 16:28 21 04/23/17 14:00 98.3 82 18 108/57 99 04/21/17 21:00 Room Air Intake and Output 04/22/17 04/22/17 04/23/17 15:00 23:00 07:00 Intake Total 120 ml 600 ml Output Total 290 ml Balance -170 ml 600 ml Results Result Diagram: 04/23/17 0710 04/23/17 0710 Results 24 hrs Laboratory Tests Test 04/22/17 19:16 04/23/17 07:10 Erythrocyte Sedimentation Rate 57 H C-Reactive Protein 6.4 H White Blood Count 5.8 # Red Blood Count 3.12 L Hemoglobin 8.8 L Hematocrit 27.9 L Mean Corpuscular Volume 89.4 Mean Corpuscular Hemoglobin 28.2 L Mean Corpuscular Hemoglobin Concent 31.5 L Red Cell Distribution Width 16.2 H Platelet Count 229 Mean Platelet Volume 9.8 Neutrophils % 79.8 H Lymphocytes % 15.2 Monocytes % 2.9 Eosinophils % 1.4 Basophils % 0.5 Nucleated Red Blood Cells % 0.0 Neutrophils # 4.6 Lymphocytes # 0.9 Monocytes # 0.2 L Eosinophils # 0.1 Basophils # 0.0 Nucleated Red Blood Cells # 0.0 Sodium Level 134 L Potassium Level 3.5 Chloride Level 105 Carbon Dioxide Level 21 Anion Gap 12 Blood Urea Nitrogen 57 H Creatinine 4.31 H Glucose Level 101 Calcium Level 8.0 L Medications Medications Current Medications Ondansetron HCl (Zofran Inj) 4 mg Q6H PRN IV NAUSEA AND/OR VOMITING; Start at 18:30 Acetaminophen (Tylenol Tab) 650 mg Q6H PRN PO PAIN LEVEL 1-3 OR FEVER; Start at 18:30 Acetaminophen/ Hydrocodone Bitart ([place] (5/325)) 1 tab Q6H PRN PO MODERATE PAIN LEVEL 4-6; Start 04/21/17 at 18:30 Morphine Sulfate (morphine) 2 mg Q4H PRN IV SEVERE PAIN LEVEL 7-10; Start 04/21 at 18:30 Docusate Sodium (Colace) 100 mg Q12H PRN PO CONSTIPATION; Start 04/21/17 at 18: 30 Magnesium Hydroxide (Milk Of Mag) 30 ml DAILY PRN PO CONSTIPATION; Start at 18:30 Sodium Biphosphate/ Sodium Phosphate (Fleet Enema) 133 ml DAILY PRN [place] CONSTIPATION; Start 04/21/17 at 18:30 Pantoprazole (Protonix Tab) 40 mg DAILY@06 PO Last administered on 04/23/17 05 :20; Admin Dose 40 MG; Start 04/22/17 at 06:00 Heparin Sodium (Porcine) (Heparin (5000 Units/0.5 ml)) 5,000 unit Q12 SC Last administered on 04/23/17 10:30; Admin Dose 5,000 UNIT; Start 04/21/17 at 21:00 Lorazepam (Ativan) 0.5 mg Q6H PRN IV ANXIETY; Start 04/21/17 at 18:30 Hydralazine HCl (Apresoline) 10 mg Q6H PRN IV ELEVATED BLOOD PRESSURE; Start at 18:30 Nitroglycerin (Nitroglycerin (Sl Tab) 0.4 Mg) 1 tab Q5M PRN SL ANGINA; Start at 18:30 Allopurinol (Zyloprim) 300 mg DAILY PO Last administered on 04/23/17 10:27; Admin Dose 300 MG; Start 04/22/17 at 09:00 Aspirin (Halfprin) 81 mg DAILY PO Last administered on 04/23/17 10:26; Admin Dose 81 MG; Start 04/22/17 at 09:00 Valsartan (Diovan) 160 mg DAILY PO Last administered on 04/23/17 10:27; Admin Dose 160 MG; Start 04/22/17 at 09:00 Atorvastatin Calcium 10 mg 10 mg DAILY@21 PO Last administered on 04/22/17 21: 06; Admin Dose 10 MG; Start 04/21/17 at 22:00 Levofloxacin/ Dextrose (Levaquin 500mg/ D5W 100 ml (Pmx)) 100 ml @ 100 mls/hr Q48H IVPB ; Start 04/23/17 at 20:30 Metoprolol Tartrate (Lopressor) 12.5 mg BID PO Last administered on 04/23/17t 10:28; Admin Dose 12.5 MG; Start 04/22/17 at 21:00 Miscellaneous Information (*Rx Drug Level Order Reminder*) RANDOM VANCOMYCIN LEVEL 9... ONCE ONCE XX ; Start 04/24/17 at 05:00; Stop 04/24/17 at 05:01 RHONDA PETERSON NP Apr 23, 2017 17:12
--- NOTE | 2017-04-23 19:43 | CONS ---
DATE OF ADMISSION: 04/22/2017 DATE OF CONSULTATION: 04/23/2017 CHIEF COMPLAINT: Back pain. HISTORY OF PRESENT ILLNESS: This is a 71-year-old male with multiple comorbidities complaining of chronic back pain. He is currently on IV antibiotics for a previous diagnosis of diskitis. He denies any recent infections or fevers. He states that the pain has been worsening. He has had a previous hospitalization for urinary tract infection and thoracic spinal osteomyelitis and diskitis. He denies any recent history of trauma. PAST MEDICAL HISTORY: Atrial fibrillation, gout, prostate cancer, thoracic spine diskitis, end-stage renal disease, osteomyelitis. MEDICATION: 1. Azithromycin 250 mg daily. 2. Allopurinol 300 mg. 3. Aspirin 81 mg. 4. Lopressor 25 mg. 5. Simvastatin 20 mg. PAST SURGICAL HISTORY: Right total hip arthroplasty, prostatectomy, kyphoplasty, left knee arthroscopic surgery, appendectomy, tonsillectomy. SOCIAL HISTORY: Denies any current tobacco or alcohol abuse. He is a former IV drug user. FAMILY HISTORY: Noncontributory. ALLERGIES: PENICILLIN. PHYSICAL EXAMINATION: VITAL SIGNS: Temperature 97.6, blood pressure 100/55, pulse of 71. GENERAL APPEARANCE: The patient is resting comfortably in no acute distress. He is alert and oriented x3. SPINE/EXTREMITIES: Thoracic spine is tender to palpation throughout the thoracic spine. There is no deformity. There are no open wounds. Flexion of 40 degrees, extension 10 degrees. Lumbar spine tender to palpation over the lower lumbar and paralumbar musculature. No guarding, no spasm, no tenderness at the sacroiliac joints. Fifty degrees of flexion, 10 degrees of extension, negative straight leg raise. DIAGNOSTIC DATA: WBC is 5.8; neutrophil percent is 79.8; ESR is 57; CRP is 6.4. Thoracic spine MRI: There is diskitis and osteomyelitis at T11-T12 with additional involvement of T10-T11 and T12-L1. There is a previous fracture of T11. There is a disk herniation measuring 2 mm at T11-T12 with a compression fracture of T12. There is a chronic L1 compression fracture. Lumbar spine MRI: There is multilevel degenerative disk disease with a previous L1 compression fracture. IMPRESSION: A 71-year-old male with chronic thoracic spinal osteomyelitis and diskitis. PLAN: I recommend continuation of IV antibiotics. At this time, I recommend spine surgery consultation for possible surgical intervention. No orthopedic intervention is required at this time. Thank you for the consultation. Dictated By: Nishant Little MD /lizzy/wilder /Document#: [id number] IGNACIO
[2017-04-23] MEDS ORDERED: LEVOFLOXACIN 500MG/D5W (PMX) 100 ML IVPB SCH (20:30)
[2017-04-23] MEDS: ATORVASTATIN 10 MG TAB PO SCH (20:45)
[2017-04-24] MEDS: PANTOPRAZOLE (EC) 40 MG TAB PO SCH (04:54)
[2017-04-24 05:37] LABS: BASOPHIL # 0.1 10^3/ul (0.0-0.1); BASOPHILS % 0.8 % (0.0-2.0); EOSINOPHILS # 0.1 10^3/ul (0.0-0.5); EOSINOPHILS % 1.5 % (0.0-7.0); HEMATOCRIT 29.8 % (42.0-52.0); HEMOGLOBIN 9.5 g/dl (14.0-18.0); LYMPHOCYTES % 13.1 % (15.0-51.0); MEAN CORPUSCULAR HGB CONC 31.9 g/dl (32.0-37.0); MEAN CORPUSCULAR VOLUME 87.9 fl (82.0-101.0); MEAN PLATELET VOLUME 9.5 fl (7.4-10.4); MONOCYTE # 0.7 10^3/ul (0.3-0.9); MONOCYTES % 9.6 % (0.0-11.0); NEUTROPHIL # 5.5 10^3/ul (1.6-7.5); NEUTROPHILS % 74.7 % (39.0-77.0); PLATELET COUNT 267 10^3/UL (140-415); POSITIVE DIFF @See below; RED BLOOD COUNT 3.39 10^6/ul (4.70-6.10); RED CELL DISTRIBUTION WIDTH 15.7 % (11.5-14.5); WHITE BLOOD COUNT 7.3 10^3/ul (4.8-10.8)
[2017-04-24 06:30] LABS: CALCIUM 8.3 mg/dl (8.4-10.2); CREATININE 3.39 mg/dl (0.61-1.24); POTASSIUM 3.7 mmol/L (3.5-5.1)
[2017-04-24 08:00] VITALS: BP 93/51; RESP 18
[2017-04-24] MEDS: ASPIRIN (EC) 81 MG TAB PO SCH (08:42)
[2017-04-24] MEDS: VALSARTAN 160 MG TAB PO SCH (08:42)
[2017-04-24] MEDS: ALLOPURINOL 300 MG TAB PO SCH (08:42)
[2017-04-24] MEDS: METOPROLOL 25 MG TAB PO SCH ×2 (08:42→20:18)
[2017-04-24] MEDS: HEPARIN 5,000 UNIT/0.5 ML VIAL SC SCH ×2 (08:44→20:19)
--- NOTE | 2017-04-24 09:28 | CONS ---
Date/Time of Note Date/Time of Note DATE: 04/24/17 TIME: 09:21 Assessment/Plan Assessment/Plan Chief Complaint/Hosp Course chronic osteomyelitis/ discitis. No epidural abscess or compressive stenosis from infection. Has chronic lumbar degenerative stenosis. Recommend bracing and continued medical treatment with antibiotics. Infection may clear and patient may fusion if given more time with abx tx though 4 months has passed since dx with radiographic worsening though unclear if progressive or peaked in now if process of resolving given long interval between scans. ESR is improved from initial diagnosis. If debridement felt to be required by ID then recommend referral to academic institution. Problems: Consultation Date/Type/Reason Admit Date/Time Apr 22, 2017 at 14:24 Initial Consult Date 04/21/17 Type of Consultation: Neurosurgery Referring Provider: HAVEN SANDOVAL 24 HR Interval Summary Free Text/Dictation Patient stable. Denies any changes from yesterday. Denies new numbness or tingling. Denies weakness other than from generalized deconditioning. Now LPB at rest. Denies fever or chills. Exam/Review of Systems Vital Signs Vitals Vital Signs Date Time Temp Pulse Resp B/P Pulse Ox O2 Delivery O2 Flow Rate FiO2 04/24/17 09:17 21 04/23/17 21:19 98.2 82 18 112/56 98 04/21/17 21:00 Room Air Intake and Output 04/23/17 04/23/17 04/24/17 15:00 23:00 07:00 Intake Total 300 ml 550 ml 500 ml Output Total 2800 ml 200 ml 300 ml Balance -2500 ml 350 ml 200 ml Exam Constitutional: alert, oriented, well developed Psych: no complaints Neurological: TITLE CURATIVE SPECIALIST II-XII intact, nl mental status, nl speech, nl strength Results Result Diagram: 04/24/17 0455 04/24/17 0455 Results 24 hrs Laboratory Tests Test 04/24/17 04:55 White Blood Count 7.3 # Red Blood Count 3.39 L Hemoglobin 9.5 L Hematocrit 29.8 L Mean Corpuscular Volume 87.9 Mean Corpuscular Hemoglobin 28.0 L Mean Corpuscular Hemoglobin Concent 31.9 L Red Cell Distribution Width 15.7 H Platelet Count 267 Mean Platelet Volume 9.5 Neutrophils % 74.7 Lymphocytes % 13.1 L Monocytes % 9.6 Eosinophils % 1.5 Basophils % 0.8 Nucleated Red Blood Cells % 0.0 Neutrophils # 5.5 Lymphocytes # 1.0 Monocytes # 0.7 Eosinophils # 0.1 Basophils # 0.1 Nucleated Red Blood Cells # 0.0 Sodium Level 133 L Potassium Level 3.7 Chloride Level 104 Carbon Dioxide Level 25 Anion Gap 8 Blood Urea Nitrogen 36 #H Creatinine 3.39 H Glucose Level 90 Calcium Level 8.3 L Random Vancomycin Level 13.6 Medications Medications Current Medications Ondansetron HCl (Zofran Inj) 4 mg Q6H PRN IV NAUSEA AND/OR VOMITING; Start at 18:30 Acetaminophen (Tylenol Tab) 650 mg Q6H PRN PO PAIN LEVEL 1-3 OR FEVER; Start at 18:30 Acetaminophen/ Hydrocodone Bitart ([place] (5/325)) 1 tab Q6H PRN PO MODERATE PAIN LEVEL 4-6; Start 04/21/17 at 18:30 Morphine Sulfate (morphine) 2 mg Q4H PRN IV SEVERE PAIN LEVEL 7-10; Start 04/21 at 18:30 Docusate Sodium (Colace) 100 mg Q12H PRN PO CONSTIPATION; Start 04/21/17 at 18: 30 Magnesium Hydroxide (Milk Of Mag) 30 ml DAILY PRN PO CONSTIPATION; Start at 18:30 Sodium Biphosphate/ Sodium Phosphate (Fleet Enema) 133 ml DAILY PRN [place] CONSTIPATION; Start 04/21/17 at 18:30 Pantoprazole (Protonix Tab) 40 mg DAILY@06 PO Last administered on 04/24/17 04 :54; Admin Dose 40 MG; Start 04/22/17 at 06:00 Heparin Sodium (Porcine) (Heparin (5000 Units/0.5 ml)) 5,000 unit Q12 SC Last administered on 04/24/17 08:44; Admin Dose 5,000 UNIT; Start 04/21/17 at 21:00 Lorazepam (Ativan) 0.5 mg Q6H PRN IV ANXIETY; Start 04/21/17 at 18:30 Hydralazine HCl (Apresoline) 10 mg Q6H PRN IV ELEVATED BLOOD PRESSURE; Start at 18:30 Nitroglycerin (Nitroglycerin (Sl Tab) 0.4 Mg) 1 tab Q5M PRN SL ANGINA; Start at 18:30 Allopurinol (Zyloprim) 300 mg DAILY PO Last administered on 04/24/17 08:42; Admin Dose 300 MG; Start 04/22/17 at 09:00 Aspirin (Halfprin) 81 mg DAILY PO Last administered on 04/24/17 08:42; Admin Dose 81 MG; Start 04/22/17 at 09:00 Valsartan (Diovan) 160 mg DAILY PO Last administered on 04/24/17 08:42; Admin Dose 160 MG; Start 04/22/17 at 09:00 Atorvastatin Calcium 10 mg 10 mg DAILY@21 PO Last administered on 04/23/17 20: 45; Admin Dose 10 MG; Start 04/21/17 at 22:00 Levofloxacin/ Dextrose (Levaquin 500mg/ D5W 100 ml (Pmx)) 100 ml @ 100 mls/hr Q48H IVPB Last administered on 04/23/17 20:49; Admin Dose 100 MLS/HR; Start at 20:30 Metoprolol Tartrate 12.5 mg 12.5 mg BID PO Last administered on 04/24/17 08:42 ; Admin Dose 12.5 MG; Start 04/22/17 at 21:00 Vancomycin HCl (Vancocin) 250 ml @ 125 mls/hr 10 IVPB ; Start 04/24/17 at 10:00 ; Stop 04/24/17 at 19:00 DAPHNE ATKINSON MD Apr 24, 2017 09:28
[2017-04-24] MEDS ORDERED: VANCOMYCIN 1 GM in NS 250 ML IVPB SCH (10:00)
--- NOTE | 2017-04-24 11:36 | PN ---
Date/Time of Note Date/Time of Note DATE: 04/24/17 TIME: 11:33 Assessment/Plan VTE Prophylaxis VTE Prophylaxis Intervention: heparin Lines/Catheters IV [facility] [place] Urinary Cath still in place: No Assessment/Plan Chief Complaint/Hosp Course ASSESSMENT/PLAN: The patient is a 71-year-old male with hypertension, high cholesterol, end-stage renal disease, on dialysis. Prior osteomyelitis and diskitis at T-spine area, comes in with nonfunctioning dialysis catheter. 1. Malfunction dialysis catheter. End-stage renal disease. -Follow-up with interventional radiology for procedure to have the catheter replaced. -Follow-up renal consult as wel, TSH, A1c and lipid panel. 2. Leukocytosis- He does have a history of osteomyelitis and diskitis. This appeared worsening on the MRI T and L spines performed 48 hours ago on this admission no signs of any fevers. No signs of any sepsis. White blood cell count improving now. ESR and CRP still elevated, but improved since January 2017. -Continue broad-spectrum antibiotics for now per infectious disease team needs another 6 weeks of IV antibiotics, possibly lifelong -Follow-up infectious disease, as well as neurosurgery and orthopedic recommendations, per discussion with neurosurgery team patient may need transfer to academic center if antibiotics do not treat the infection given his morbidity, per them he appears to have continued erosion of T11-T12 adjacent bone. - follow up final culture results. 3. History of hypertension, blood pressure stable. Continue current blood pressure medicines. 4. High cholesterol. Monitor for now. Follow-up lipid panel. 5. History of gout. Continue allopurinol. 6. End-stage renal disease, on dialysis. As mentioned in #1. Continue dialysis as scheduled. Once the catheter has been replaced. 7. History of osteomyelitis and diskitis -See #2 8. Deep venous thrombosis prophylaxis. Heparin subcu. 9. Gastrointestinal prophylaxis. Proton pump inhibitor. Problems: Subjective 24 Hr Interval Summary Free Text/Dictation Patient had dialysis yesterday, no fevers overnight. Seen by neurosurgery and orthopedic surgery teams and infectious disease team yesterday. Complaining of some diarrhea. Exam/Review of Systems Vital Signs Vitals Vital Signs Date Time Temp Pulse Resp B/P Pulse Ox O2 Delivery O2 Flow Rate FiO2 04/24/17 09:17 21 04/24/17 08:00 97.8 78 18 93/51 98 04/21/17 21:00 Room Air Intake and Output 04/23/17 04/23/17 04/24/17 15:00 23:00 07:00 Intake Total 300 ml 550 ml 500 ml Output Total 2800 ml 200 ml 300 ml Balance -2500 ml 350 ml 200 ml Exam GENERAL: Patient lying in bed, answers question appropriately. No acute distress. HEENT: Pupils equal, round, reactive. Extraocular muscles intact. NECK: Supple. No thyromegaly. LUNGS: Clear to auscultation bilaterally. CARDIOVASCULAR: S1, S2. No rubs, gallops. ABDOMEN: Soft, nontender, nondistended. Normal bowel sounds. No rebound or guarding. MUSCULOSKELETAL: PermCath in the right thigh. Otherwise, no lower extremity edema bilaterally. NEUROLOGIC: No focal deficits. Results Result Diagram: 04/24/17 0455 04/24/17 0455 Results 24 hrs Laboratory Tests Test 04/24/17 04:55 White Blood Count 7.3 # Red Blood Count 3.39 L Hemoglobin 9.5 L Hematocrit 29.8 L Mean Corpuscular Volume 87.9 Mean Corpuscular Hemoglobin 28.0 L Mean Corpuscular Hemoglobin Concent 31.9 L Red Cell Distribution Width 15.7 H Platelet Count 267 Mean Platelet Volume 9.5 Neutrophils % 74.7 Lymphocytes % 13.1 L Monocytes % 9.6 Eosinophils % 1.5 Basophils % 0.8 Nucleated Red Blood Cells % 0.0 Neutrophils # 5.5 Lymphocytes # 1.0 Monocytes # 0.7 Eosinophils # 0.1 Basophils # 0.1 Nucleated Red Blood Cells # 0.0 Sodium Level 133 L Potassium Level 3.7 Chloride Level 104 Carbon Dioxide Level 25 Anion Gap 8 Blood Urea Nitrogen 36 #H Creatinine 3.39 H Glucose Level 90 Calcium Level 8.3 L Random Vancomycin Level 13.6 Medications Medications Current Medications Ondansetron HCl (Zofran Inj) 4 mg Q6H PRN IV NAUSEA AND/OR VOMITING; Start at 18:30 Acetaminophen (Tylenol Tab) 650 mg Q6H PRN PO PAIN LEVEL 1-3 OR FEVER; Start at 18:30 Acetaminophen/ Hydrocodone Bitart ([place] (5/325)) 1 tab Q6H PRN PO MODERATE PAIN LEVEL 4-6; Start 04/21/17 at 18:30 Morphine Sulfate (morphine) 2 mg Q4H PRN IV SEVERE PAIN LEVEL 7-10; Start 04/21 at 18:30 Docusate Sodium (Colace) 100 mg Q12H PRN PO CONSTIPATION; Start 04/21/17 at 18: 30 Magnesium Hydroxide (Milk Of Mag) 30 ml DAILY PRN PO CONSTIPATION; Start at 18:30 Sodium Biphosphate/ Sodium Phosphate (Fleet Enema) 133 ml DAILY PRN [place] CONSTIPATION; Start 04/21/17 at 18:30 Pantoprazole (Protonix Tab) 40 mg DAILY@06 PO Last administered on 04/24/17 04 :54; Admin Dose 40 MG; Start 04/22/17 at 06:00 Heparin Sodium (Porcine) (Heparin (5000 Units/0.5 ml)) 5,000 unit Q12 SC Last administered on 04/24/17 08:44; Admin Dose 5,000 UNIT; Start 04/21/17 at 21:00 Lorazepam (Ativan) 0.5 mg Q6H PRN IV ANXIETY; Start 04/21/17 at 18:30 Hydralazine HCl (Apresoline) 10 mg Q6H PRN IV ELEVATED BLOOD PRESSURE; Start at 18:30 Nitroglycerin (Nitroglycerin (Sl Tab) 0.4 Mg) 1 tab Q5M PRN SL ANGINA; Start at 18:30 Allopurinol (Zyloprim) 300 mg DAILY PO Last administered on 04/24/17 08:42; Admin Dose 300 MG; Start 04/22/17 at 09:00 Aspirin (Halfprin) 81 mg DAILY PO Last administered on 04/24/17 08:42; Admin Dose 81 MG; Start 04/22/17 at 09:00 Valsartan (Diovan) 160 mg DAILY PO Last administered on 04/24/17 08:42; Admin Dose 160 MG; Start 04/22/17 at 09:00 Atorvastatin Calcium 10 mg 10 mg DAILY@21 PO Last administered on 04/23/17 20: 45; Admin Dose 10 MG; Start 04/21/17 at 22:00 Levofloxacin/ Dextrose (Levaquin 500mg/ D5W 100 ml (Pmx)) 100 ml @ 100 mls/hr Q48H IVPB Last administered on 04/23/17 20:49; Admin Dose 100 MLS/HR; Start at 20:30 Metoprolol Tartrate 12.5 mg 12.5 mg BID PO Last administered on 04/24/17 08:42 ; Admin Dose 12.5 MG; Start 04/22/17 at 21:00 Vancomycin HCl (Vancocin) 250 ml @ 125 mls/hr 10 IVPB ; Start 04/24/17 at 10:00 ; Stop 04/24/17 at 19:00 HAVEN SANDOVAL Apr 24, 2017 11:36
--- NOTE | 2017-04-24 12:50 | CONS ---
Date/Time of Note Date/Time of Note DATE: 04/24/17 TIME: 12:48 Assessment/Plan Assessment/Plan Additional Assessment/Plan 1. Acute on chronic back pain 2. Catheter malfunction , missed HD 3. ESRD on HD TTS schedule at [facility] 4. leucocytosis with WBC 22.0 uncleare sournce, H/o Osteomyelitis of T spine treated with IV abx for 3 months, rule out sepsis - WBC WNL 5. Hypertension 6. Hyperlipidemia 7. H/o Prostate CA< H/o gout, H/o Atrial fibrillation 8. Hyponatremia- monitor labs Plan : -sp MRI Throacic and Lumbar spine today - IR guided exchange of HD catheter - HD, SP catheter exachange - renal diet - ID consulted for leucocytosis and h/o OM of spine recently, finishd abx on . Dw Dr Miguel Avalos Consultation Date/Type/Reason Admit Date/Time Apr 22, 2017 at 14:24 Initial Consult Date 04/21/17 Type of Consultation: Neurosurgery Referring Provider: HAVEN SANDOVAL 24 HR Interval Summary Constitutional: improved Detailed Summary Respiratory: no complaints Cardiovascular: no complaints Gastrointestinal: no complaints Genitourinary: no complaints Musculoskeletal: no complaints Skin: no complaints Exam/Review of Systems Vital Signs Vitals Vital Signs Date Time Temp Pulse Resp B/P Pulse Ox O2 Delivery O2 Flow Rate FiO2 04/24/17 09:17 21 04/24/17 08:00 97.8 78 18 93/51 98 04/21/17 21:00 Room Air Intake and Output 04/23/17 04/23/17 04/24/17 15:00 23:00 07:00 Intake Total 300 ml 550 ml 500 ml Output Total 2800 ml 200 ml 300 ml Balance -2500 ml 350 ml 200 ml Exam Constitutional: alert, oriented, well developed Respiratory: clear to auscultation, normal air movement Cardiovascular: nl pulses, regular rate and rhythm Gastrointestinal: non-tender, soft Musculoskeletal: nl extremities to inspection Extremities: normal pulses Results Result Diagram: 04/24/17 0455 04/24/17 0455 Results 24 hrs Laboratory Tests Test 04/24/17 04:55 White Blood Count 7.3 # Red Blood Count 3.39 L Hemoglobin 9.5 L Hematocrit 29.8 L Mean Corpuscular Volume 87.9 Mean Corpuscular Hemoglobin 28.0 L Mean Corpuscular Hemoglobin Concent 31.9 L Red Cell Distribution Width 15.7 H Platelet Count 267 Mean Platelet Volume 9.5 Neutrophils % 74.7 Lymphocytes % 13.1 L Monocytes % 9.6 Eosinophils % 1.5 Basophils % 0.8 Nucleated Red Blood Cells % 0.0 Neutrophils # 5.5 Lymphocytes # 1.0 Monocytes # 0.7 Eosinophils # 0.1 Basophils # 0.1 Nucleated Red Blood Cells # 0.0 Sodium Level 133 L Potassium Level 3.7 Chloride Level 104 Carbon Dioxide Level 25 Anion Gap 8 Blood Urea Nitrogen 36 #H Creatinine 3.39 H Glucose Level 90 Calcium Level 8.3 L Random Vancomycin Level 13.6 Medications Medications Current Medications Ondansetron HCl (Zofran Inj) 4 mg Q6H PRN IV NAUSEA AND/OR VOMITING; Start at 18:30 Acetaminophen (Tylenol Tab) 650 mg Q6H PRN PO PAIN LEVEL 1-3 OR FEVER; Start at 18:30 Acetaminophen/ Hydrocodone Bitart ([place] (5/325)) 1 tab Q6H PRN PO MODERATE PAIN LEVEL 4-6; Start 04/21/17 at 18:30 Morphine Sulfate (morphine) 2 mg Q4H PRN IV SEVERE PAIN LEVEL 7-10; Start 04/21 at 18:30 Docusate Sodium (Colace) 100 mg Q12H PRN PO CONSTIPATION; Start 04/21/17 at 18: 30 Magnesium Hydroxide (Milk Of Mag) 30 ml DAILY PRN PO CONSTIPATION; Start at 18:30 Sodium Biphosphate/ Sodium Phosphate (Fleet Enema) 133 ml DAILY PRN [place] CONSTIPATION; Start 04/21/17 at 18:30 Pantoprazole (Protonix Tab) 40 mg DAILY@06 PO Last administered on 04/24/17 04 :54; Admin Dose 40 MG; Start 04/22/17 at 06:00 Heparin Sodium (Porcine) (Heparin (5000 Units/0.5 ml)) 5,000 unit Q12 SC Last administered on 04/24/17 08:44; Admin Dose 5,000 UNIT; Start 04/21/17 at 21:00 Lorazepam (Ativan) 0.5 mg Q6H PRN IV ANXIETY; Start 04/21/17 at 18:30 Hydralazine HCl (Apresoline) 10 mg Q6H PRN IV ELEVATED BLOOD PRESSURE; Start at 18:30 Nitroglycerin (Nitroglycerin (Sl Tab) 0.4 Mg) 1 tab Q5M PRN SL ANGINA; Start at 18:30 Allopurinol (Zyloprim) 300 mg DAILY PO Last administered on 04/24/17 08:42; Admin Dose 300 MG; Start 04/22/17 at 09:00 Aspirin (Halfprin) 81 mg DAILY PO Last administered on 04/24/17 08:42; Admin Dose 81 MG; Start 04/22/17 at 09:00 Valsartan (Diovan) 160 mg DAILY PO Last administered on 04/24/17 08:42; Admin Dose 160 MG; Start 04/22/17 at 09:00 Atorvastatin Calcium 10 mg 10 mg DAILY@21 PO Last administered on 04/23/17 20: 45; Admin Dose 10 MG; Start 04/21/17 at 22:00 Levofloxacin/ Dextrose (Levaquin 500mg/ D5W 100 ml (Pmx)) 100 ml @ 100 mls/hr Q48H IVPB Last administered on 04/23/17 20:49; Admin Dose 100 MLS/HR; Start at 20:30 Metoprolol Tartrate 12.5 mg 12.5 mg BID PO Last administered on 04/24/17 08:42 ; Admin Dose 12.5 MG; Start 04/22/17 at 21:00 Vancomycin HCl (Vancocin) 250 ml @ 125 mls/hr 10 IVPB Last administered on 12:07; Admin Dose 125 MLS/HR; Start 04/24/17 at 10:00; Stop 04/24/17 at 19:00 Loperamide HCl (Imodium Cap) 2 mg QID PRN PO DIARRHEA; Start 04/24/17 at 12:00 МАРИНА DOSHI Apr 24, 2017 12:50
[2017-04-24] MEDS: LOPERAMIDE 2 MG CAP PO PRN ×2 (13:27→21:16)
[2017-04-24 14:00] VITALS: BP 120/88; RESP 18
--- NOTE | 2017-04-24 16:11 | CONS ---
Date/Time of Note Date/Time of Note DATE: 04/24/17 TIME: 16:09 Assessment/Plan Assessment/Plan Chief Complaint/Hosp Course ID PROGRESS NOTE: CURRENT ABX: Vanco IV + Levaquin * No fevers, doing OK, pain issues persist, calm * Appreciate Neurosurgery notes: patient may need transfer to academic center if antibiotics do not treat the infection given his morbidity, per them he appears to have continued erosion of T11-T12 adjacent bone. PHYSICAL EXAMINATION: GENERAL: VSS, NAD, resting comfortably, calm woman who is awake in no distress. HEENT: Unremarkable NECK: Supple. CHEST: Rise symmetrical, without dyspnea on observation HEART: RRR ABDOMEN: Soft, NT EXT: warm ID ASSESSMENT: 71 yo M admit with: 1. SIRS w/Leukocytosis, elevated ESR => MRI SPINE w/re-demonstrated Diskitis/ osteomyelitis * 04/22/17 BCx (-) 2. PermCath occlusions status post new PermCath placement 04/22/17 3. Renal failure => HD depended 4. Hx of bilateral non-obstructive renal stones 5. Acute on chronic back pain -> Hx of diskitis at T11/12 border and osteomyelitis DECEMBER 2016 s/p previous ABX course DECEMBER 2016 with vancomycin and Rocephin. * 04/22/17 REPEAT MRI IMPRESSION: * Re-demonstrated diskitis and osteomyelitis at T11-12 with progression of T11 moderate-severe pathologic compression fracture since 01/15/2017. Diskitis osteomyelitis of T10-11 and T12-L1 noted. * Mild T12 compression fracture. * Chronic moderate to severe L1 compression fracture with evidence of prior vertebral augmentation. * Multilevel lumbar degenerative changes with severe spinal canal stenosis L3- 4 and L4-5 and moderate to severe spinal canal narrowing L3-4. * Abnormal hyperintense T2 signal with erosive changes of the endplates at L2- 3 and L4-5 are seen which may be due to discogenic disease but the possibility of superimposed diskitis at these levels is not excluded 6. Atrial fibrillation. 7. Hypertension. 8. History of polysubstance abuse -> alcohol abuse ?dementia?; hx of MJ/IVDU 9. Hx of falls 10. Hx of prostate cancer 11. Hx of tobacco -- Quit x 12 years (-) MRSA Nares ABX ALLERGY: PCN, Latex, Adhesive CURRENT ABX: Vanco IV + Levaquin ID RECOMMENDATIONS/PLAN: 1.Continue Vanco + Levaquin over the weekend -> likely needs repeat 6 week course ABX, probably lifelong 2. Appreciate Neurosurgery notes: patient may need transfer to [facility] center if antibiotics do not treat the infection given his morbidity, * Per Neurosurgery concern=> continued erosion of T11-T12 adjacent bone. . Problems: Consultation Date/Type/Reason Admit Date/Time Apr 22, 2017 at 14:24 Initial Consult Date 04/21/17 Type of Consultation: ID Referring Provider: HAVEN SANDOVAL Exam/Review of Systems Vital Signs Vitals Vital Signs Date Time Temp Pulse Resp B/P Pulse Ox O2 Delivery O2 Flow Rate FiO2 04/24/17 09:17 21 04/24/17 08:00 97.8 78 18 93/51 98 04/21/17 21:00 Room Air Intake and Output 04/23/17 04/23/17 04/24/17 15:00 23:00 07:00 Intake Total 300 ml 550 ml 500 ml Output Total 2800 ml 200 ml 300 ml Balance -2500 ml 350 ml 200 ml Results Result Diagram: 04/24/17 0455 04/24/17 0455 Results 24 hrs Laboratory Tests Test 04/24/17 04:55 White Blood Count 7.3 # Red Blood Count 3.39 L Hemoglobin 9.5 L Hematocrit 29.8 L Mean Corpuscular Volume 87.9 Mean Corpuscular Hemoglobin 28.0 L Mean Corpuscular Hemoglobin Concent 31.9 L Red Cell Distribution Width 15.7 H Platelet Count 267 Mean Platelet Volume 9.5 Neutrophils % 74.7 Lymphocytes % 13.1 L Monocytes % 9.6 Eosinophils % 1.5 Basophils % 0.8 Nucleated Red Blood Cells % 0.0 Neutrophils # 5.5 Lymphocytes # 1.0 Monocytes # 0.7 Eosinophils # 0.1 Basophils # 0.1 Nucleated Red Blood Cells # 0.0 Sodium Level 133 L Potassium Level 3.7 Chloride Level 104 Carbon Dioxide Level 25 Anion Gap 8 Blood Urea Nitrogen 36 #H Creatinine 3.39 H Glucose Level 90 Calcium Level 8.3 L Random Vancomycin Level 13.6 Medications Medications Current Medications Ondansetron HCl (Zofran Inj) 4 mg Q6H PRN IV NAUSEA AND/OR VOMITING; Start at 18:30 Acetaminophen (Tylenol Tab) 650 mg Q6H PRN PO PAIN LEVEL 1-3 OR FEVER; Start at 18:30 Acetaminophen/ Hydrocodone Bitart ([place] (5/325)) 1 tab Q6H PRN PO MODERATE PAIN LEVEL 4-6; Start 04/21/17 at 18:30 Morphine Sulfate (morphine) 2 mg Q4H PRN IV SEVERE PAIN LEVEL 7-10; Start 04/21 at 18:30 Docusate Sodium (Colace) 100 mg Q12H PRN PO CONSTIPATION; Start 04/21/17 at 18: 30 Magnesium Hydroxide (Milk Of Mag) 30 ml DAILY PRN PO CONSTIPATION; Start at 18:30 Sodium Biphosphate/ Sodium Phosphate (Fleet Enema) 133 ml DAILY PRN [place] CONSTIPATION; Start 04/21/17 at 18:30 Pantoprazole (Protonix Tab) 40 mg DAILY@06 PO Last administered on 04/24/17 04 :54; Admin Dose 40 MG; Start 04/22/17 at 06:00 Heparin Sodium (Porcine) (Heparin (5000 Units/0.5 ml)) 5,000 unit Q12 SC Last administered on 04/24/17 08:44; Admin Dose 5,000 UNIT; Start 04/21/17 at 21:00 Lorazepam (Ativan) 0.5 mg Q6H PRN IV ANXIETY; Start 04/21/17 at 18:30 Hydralazine HCl (Apresoline) 10 mg Q6H PRN IV ELEVATED BLOOD PRESSURE; Start at 18:30 Nitroglycerin (Nitroglycerin (Sl Tab) 0.4 Mg) 1 tab Q5M PRN SL ANGINA; Start at 18:30 Allopurinol (Zyloprim) 300 mg DAILY PO Last administered on 04/24/17 08:42; Admin Dose 300 MG; Start 04/22/17 at 09:00 Aspirin (Halfprin) 81 mg DAILY PO Last administered on 04/24/17 08:42; Admin Dose 81 MG; Start 04/22/17 at 09:00 Valsartan (Diovan) 160 mg DAILY PO Last administered on 04/24/17 08:42; Admin Dose 160 MG; Start 04/22/17 at 09:00 Atorvastatin Calcium 10 mg 10 mg DAILY@21 PO Last administered on 04/23/17 20: 45; Admin Dose 10 MG; Start 04/21/17 at 22:00 Levofloxacin/ Dextrose (Levaquin 500mg/ D5W 100 ml (Pmx)) 100 ml @ 100 mls/hr Q48H IVPB Last administered on 04/23/17 20:49; Admin Dose 100 MLS/HR; Start at 20:30 Metoprolol Tartrate 12.5 mg 12.5 mg BID PO Last administered on 04/24/17 08:42 ; Admin Dose 12.5 MG; Start 04/22/17 at 21:00 Vancomycin HCl (Vancocin) 250 ml @ 125 mls/hr 10 IVPB Last administered on 12:07; Admin Dose 125 MLS/HR; Start 04/24/17 at 10:00; Stop 04/24/17 at 19:00 Loperamide HCl (Imodium Cap) 2 mg QID PRN PO DIARRHEA Last administered on 04/24 13:27; Admin Dose 2 MG; Start 04/24/17 at 12:00 RHONDA PETERSON NP Apr 24, 2017 16:11
[2017-04-24 20:00] VITALS: BP 103/50; RESP 18
[2017-04-24] MEDS: ATORVASTATIN 10 MG TAB PO SCH (20:17)
[2017-04-25] VITALS (10 sets, daily range): BP systolic 95–114; BP diastolic 45–59; PULSE 73–81; RESP 18–19
[2017-04-25] MEDS: PANTOPRAZOLE (EC) 40 MG TAB PO SCH (05:57)
[2017-04-25 07:33] LABS: BASOPHIL # 0.1 10^3/ul (0.0-0.1); BASOPHILS % 1.2 % (0.0-2.0); EOSINOPHILS # 0.2 10^3/ul (0.0-0.5); EOSINOPHILS % 2.7 % (0.0-7.0); HEMATOCRIT 31.3 % (42.0-52.0); LYMPHOCYTES # 1.2 10^3/ul (0.8-2.9); LYMPHOCYTES % 15.6 % (15.0-51.0); MEAN CORPUSCULAR HEMOGLOBIN 28.5 pg (29.0-33.0); MEAN CORPUSCULAR HGB CONC 31.9 g/dl (32.0-37.0); MEAN CORPUSCULAR VOLUME 89.2 fl (82.0-101.0); MEAN PLATELET VOLUME 9.2 fl (7.4-10.4); MONOCYTE # 0.6 10^3/ul (0.3-0.9); MONOCYTES % 8.4 % (0.0-11.0); NEUTROPHIL # 5.3 10^3/ul (1.6-7.5); NEUTROPHILS % 71.7 % (39.0-77.0); PLATELET COUNT 257 10^3/UL (140-415); RED BLOOD COUNT 3.51 10^6/ul (4.70-6.10); RED CELL DISTRIBUTION WIDTH 15.8 % (11.5-14.5); WHITE BLOOD COUNT 7.4 10^3/ul (4.8-10.8)
[2017-04-25 08:06] LABS: CALCIUM 8.4 mg/dl (8.4-10.2); CREATININE 3.79 mg/dl (0.61-1.24)
[2017-04-25] MEDS: VALSARTAN 160 MG TAB PO SCH (09:00)
[2017-04-25] MEDS: METOPROLOL 25 MG TAB PO SCH ×2 (09:00→20:30)
--- NOTE | 2017-04-25 11:42 | CONS ---
DATE OF ADMISSION: 04/22/2017 DATE OF CONSULTATION: 04/23/2017 REQUESTING PHYSICIAN: Fe Mak MD INDICATION FOR CONSULTATION: Evaluation of osteomyelitis/diskitis. HISTORY OF PRESENT ILLNESS: Patient is a 71-year-old right- handed male with a history of hypertension, end-stage renal disease on dialysis, with a known history of osteomyelitis and diskitis who initially came to the hospital for a dialysis catheter change. The patient has been having chronic back pain and was noted to have a white count, so re-evaluation of his spine was performed with MRI which showed evidence of possible persistent osteomyelitis. The historical details of the patient's condition are somewhat unclear and are obtained from the patient and the medical records. The patient was apparently admitted in December of this year to this hospital with acute generalized weakness and was ultimately diagnosed with osteomyelitis and diskitis. An MRI performed on December 18, and CT on December 18 of the lumbar and thoracic spine showed changes at T11-12 consistent that were felt to be more consistent with degeneration, but ultimately it was felt the patient likely had an osteomyelitis. There were also endplate changes noted at C3-4 that was felt to be degenerative. As well, there were multilevel bridging osteophytes that raise concern for seronegative spondyloarthropathy, but no evidence of acute compression deformity or cord compression. The patient's MRI of the lumbar spine showed diffuse disc and facet arthropathy, ligamentum flavum contributing to severe central canal stenosis most severe at L4-5 and bilateral foraminal stenosis. There was also acquired severe central canal stenosis at L3-4, and mild to moderate stenosis at L2-3, again from degenerative condition. The patient was ultimately diagnosed with an osteomyelitis diskitis. From Dr. Schneider's note on 01/16/2017, he noted there was no evidence of phlegmon or abscess at the time, and the repeat MRI showed progressive osteomyelitis diskitis with paravertebral and prevertebral phlegmon and edema and erosion of vertebral bodies, but again no epidural extension. He did not recommend any type of surgical treatment at that time unless there was failure of antibiotic treatment or neurologic deficit. Patient ultimately was discharged from the hospital and has been at [facility]. Patient states he ambulates mostly with a walker simply because of back pain. He denies any weakness in his lower extremities. Denies any bowel or bladder issues other than diarrhea. He does report some tingling in his feet but this is chronic he states from neuropathy. He reports that he has back pain which is mostly in the morning but tends to improve as the day goes on. He states when he is lying flat his pain is 0/10 but if he gets up sometimes it can become as severe as 10/10. For the most part, the patient states he has tolerated this pain and really did not think much of it. He states he does not recollect much of his time during hospitalization as apparently he may have been mentally altered secondary to his infection. He currently denies any neck pain, any numbness, any weakness in his upper extremities as well. He also denies any recent fevers or chills. PAST MEDICAL HISTORY: As above, as well the patient has a history of atrial fibrillation, gout and prostate cancer. ALLERGIES: PENICILLIN AND ADHESIVES AND LATEX. MEDICATIONS: Azithromycin, naproxen, allopurinol, aspirin, Lopressor, simvastatin, Diovan. PAST SURGICAL HISTORY: Significant for right hip arthroplasty in 2013 and 2014, prostatectomy in the past, kyphoplasty over 10 years ago, performed by a surgeon in [place], arthroscopic knee surgery, appendectomy and tonsillectomy. SOCIAL HISTORY: Patient reports a history of former alcohol abuse, but currently denies drinking alcohol. He states he does occasionally smoke marijuana and is a nonsmoker. He also has a history of prior IV drug abuse, but denies any recent. PHYSICAL EXAMINATION: VITAL SIGNS: Patient's temperature is 98.7, pulse 83, respirations 20, blood pressure 111/56, saturating 95% on room air. GENERAL: Patient is well developed, well nourished, elderly male who appears slightly younger than his age lying in a hospital bed, in no acute distress. HEENT: Normocephalic, atraumatic. NECK: Supple, nontender with no Lhermitte's or Spurling sign. MUSCULOSKELETAL: Patient's back has some minimal tenderness at thoracolumbar junction; for the most part states there is no severe pain with palpation. He has no significant atrophy or dysmetria, and has grossly normal tone and bulk. His motor strength is 5/5 bilateral in his upper and lower extremities. Specifically, his iliopsoas, quadriceps, anterior tibialis, extensor hallucis longus and gastrocnemius are 5/5. NEUROLOGIC: Patient is awake, alert and oriented x3. Follows commands readily and appropriately. He has normal attention and concentration. Cranial nerves II-XII are serially tested and are intact. Motor exam per musculoskeletal. He has 1+ deep tendon reflexes throughout and intact sensation to light touch except for some reported subjective numbness in his toes. Gait not assessed secondary to patient deferral. RECTAL: Deferred. LABORATORY: The patient's initial white count was 22.2 on admission on 04/21, but is currently 5.8. Hemoglobin is 8.8, platelets 299,000. He had an ESR yesterday that was 57. His ESR when he was in the hospital four months ago was 135. Coagulation panel, PT was 14.0, INR 1.08 and APTT 36.5. Sodium 134, BUN and creatinine 15 and 14.31. RADIOLOGY: I reviewed the patient's CT scan of the thoracic spine and lumbar spine, and MRIs from October and January of this year, as well as the most recent CT scan of the thoracic spine and lumbar spine performed on 04/15 and MRIs performed on 04/22. Essentially, there has been some endplate erosive changes at the adjacent T9, T11 and T12 levels. The radiologist interpreted there is a moderate to severe pathologic fracture at T11 that has progressed with increased vertebral body height. I compared the studies, this appears to be erosion though there is no significant angulation or retropulsion, and this is not clearly per se a fracture as an erosive changke. There is a compression fracture at L1 that has had vertebroplasty and mild compression fracture T12. The patient still has degenerative stenosis as described before at the lumbar levels. The patient does have likely dystrophic idiopathic skeletal hyperostosis or some other type of diffuse spondyloarthropathy, and appears to be fused at L5-S1, L4-5, L3-4, L2-3 and L1-2, and T12-L1, as well as from T11 superiorly. Indeed it appears that the only unfused level is the T11-T12 level. There is reported [id number] stenosis but I see no cord compression at the T11-12 level. The impression by the radiologist of the MRI thoracic spine was there is re- demonstration of diskitis osteomyelitis centered at T11-12, and involvement of T10 and T11, and T12 and L1 pathologic fracture. T11 has progressed since 01/15/2017 with increased vertebral height loss. There is no definite fluid collection but this is a noncontrasted study. ASSESSMENT AND PLAN: A 71-year-old male with history of osteomyelitis, progression of destructive changes of the spine. I discussed the patient's signs, symptoms, physical exam, radiographic findings with him. Patient has a known osteomyelitis diskitis. The degree and extent of treatment is unclear. The patient did receive IV antibiotics which he stated he stopped some time ago. The patient's lack of recollection make it difficult to assess what truly went on the past few months but it appears that the patient may have a persistent osteomyelitis. The patient does not appear to be symptomatic with fevers or chills or sepsis, and there was no significant epidural component. There does not appear to be any clear subluxation. It is not clear to me if the changes seen are erosive changes for the patient in the process of healing after potentially healing given the long interval between studies, or if this is a persistent abscess or infection. The patient's ESR has diminished from previously but is still elevated. These erosive changes may be part of the healing process as radiographic studies may lag behind healing and clinical improvement. Most importantly, patient does not appear to have any significant neurologic deficits associated with this fracture though generally this may be considered stable. The patient was never treated with a brace and therefore I would recommend that the patient wear a brace whenever he is sitting upright or ambulating. This may assist in healing of the bone if indeed this is not a persistent erosive process from infection but a degenerative process. Indeed, the patient does have neuropathy and given the erosion above and below the T11-12 disc space secondary to fracture this may be somewhat of a Charcot joint. The patient does not have any significant neurologic deficits, and given the patient's age and multiple comorbidities, I would recommend further evaluation and continued medical treatment for this condition, as well as a brace. I believe the patient would truly have to be refractory to antibiotic treatment or develop neurologic worsening to indicate surgical intervention. Because of the patient's fusion, the scarring, his spondyloarthropathy and his age, an operation to debride this area would be very high risk and would require anterior and posterior fusion. I believe the patient would best be served by being referred to an academic center to be followed for this in the likelihood that surgical treatment would be necessary, as again such a large operation of this nature would likely be indicated. The patient expressed understanding and agreement with this plan of care. He understood the recommendations to wear a brace when he is upright, and Infectious Disease is following and further treatment will be rendered. The patient is also advised to be referred to an academic center for proactive evaluation should surgical necessity be required. Thank you for allowing me to participate in the care of this patient. Dictated By: Nehemias Vazquez MD /lizzy/debra /Document#: [id number]
[2017-04-25] MEDS: HEPARIN 5,000 UNIT/0.5 ML VIAL SC SCH ×2 (12:22→21:20)
[2017-04-25] MEDS: LOPERAMIDE 2 MG CAP PO PRN (12:23)
[2017-04-25] MEDS: ALLOPURINOL 300 MG TAB PO SCH (12:23)
[2017-04-25] MEDS: ASPIRIN (EC) 81 MG TAB PO SCH (12:24)
[2017-04-25] MEDS: LEVOFLOXACIN 500 MG TAB PO SCH (14:10)
[2017-04-25] MEDS: CEFTRIAXONE 2 GM/50 ML (PMX) 50 ML IVPB SCH (14:10)
--- NOTE | 2017-04-25 14:39 | PN ---
Date/Time of Note Date/Time of Note DATE: 04/25/17 TIME: 14:36 Assessment/Plan VTE Prophylaxis VTE Prophylaxis Intervention: SCD's Lines/Catheters IV Catheter Type (from Nrs): Permacath Urinary Cath still in place: No Assessment/Plan Assessment/Plan 71 yo M with ESRD on HD, h/o vertebral OM diagnosed earlier this summer presented with c/o nonfunctioning HD catheter, found to have worsening of vertebral OM despite 6 weeks of antimicrobials. #ESRD on HD, catheter malfunction -line replaced by IR 9.15 -renal following for HD #vertebral OM (t11-t12): imaging this hospital stay worse than previous. No hx of bone biopsy for micro during last admission. Pt completed 6 weeks of abx, appears to have been with levoflox and vanc? -sp ortho and neurosurg eval. surgical services advising trial of conservative/ non operative management with repeat imaging in additional 6 weeks -ID following; vanc can be given with HD. ID service has switched levoflox to Rocephin #HTN, HL, gout: cont home meds given pt's surgical hx, age, etc, neurosurgery is advising surgical follow up with tertiary center after discharge for further surgical evaluation. will place CM consult to help arrange this Pt medically clear for discharge, CM consult placed to assist with logistics and dispo ([facility] v SN[facility] v convalescent home) Subjective 24 Hr Interval Summary Free Text/Dictation Pt states he does not want to go back to [facility] because the food was subpar Exam/Review of Systems Vital Signs Vitals Vital Signs Date Time Temp Pulse Resp B/P Pulse Ox O2 Delivery O2 Flow Rate FiO2 04/25/17 11:20 73 19 04/25/17 08:04 97.1 108/57 99 04/24/17 09:17 21 04/21/17 21:00 Room Air Intake and Output 04/24/17 04/24/17 04/25/17 15:00 23:00 07:00 Intake Total 250 ml 800 ml 400 ml Output Total 200 ml 280 ml Balance 250 ml 600 ml 120 ml Exam nad laying in bed no mrg lungs clear abd soft no rashes Results Result Diagram: 04/25/17 0711 04/25/17 0711 Results 24 hrs Laboratory Tests Test 04/25/17 07:11 White Blood Count 7.4 Red Blood Count 3.51 L Hemoglobin 10.0 L Hematocrit 31.3 L Mean Corpuscular Volume 89.2 Mean Corpuscular Hemoglobin 28.5 L Mean Corpuscular Hemoglobin Concent 31.9 L Red Cell Distribution Width 15.8 H Platelet Count 257 Mean Platelet Volume 9.2 Neutrophils % 71.7 Lymphocytes % 15.6 Monocytes % 8.4 Eosinophils % 2.7 Basophils % 1.2 Nucleated Red Blood Cells % 0.0 Neutrophils # 5.3 Lymphocytes # 1.2 Monocytes # 0.6 Eosinophils # 0.2 Basophils # 0.1 Nucleated Red Blood Cells # 0.0 Sodium Level 137 Potassium Level 5.0 Chloride Level 106 Carbon Dioxide Level 25 Anion Gap 11 Blood Urea Nitrogen 40 H Creatinine 3.79 H Glucose Level 92 Calcium Level 8.4 Medications Medications Current Medications Ondansetron HCl (Zofran Inj) 4 mg Q6H PRN IV NAUSEA AND/OR VOMITING; Start at 18:30 Acetaminophen (Tylenol Tab) 650 mg Q6H PRN PO PAIN LEVEL 1-3 OR FEVER; Start at 18:30 Acetaminophen/ Hydrocodone Bitart ([place] (5/325)) 1 tab Q6H PRN PO MODERATE PAIN LEVEL 4-6; Start 04/21/17 at 18:30 Morphine Sulfate (morphine) 2 mg Q4H PRN IV SEVERE PAIN LEVEL 7-10; Start 04/21 at 18:30 Docusate Sodium (Colace) 100 mg Q12H PRN PO CONSTIPATION; Start 04/21/17 at 18: 30 Magnesium Hydroxide (Milk Of Mag) 30 ml DAILY PRN PO CONSTIPATION; Start at 18:30 Sodium Biphosphate/ Sodium Phosphate (Fleet Enema) 133 ml DAILY PRN NE CONSTIPATION; Start 04/21/17 at 18:30 Pantoprazole (Protonix Tab) 40 mg DAILY@06 PO Last administered on 04/25/17 05 :57; Admin Dose 40 MG; Start 04/22/17 at 06:00 Heparin Sodium (Porcine) (Heparin (5000 Units/0.5 ml)) 5,000 unit Q12 SC Last administered on 04/25/17 12:22; Admin Dose 5,000 UNIT; Start 04/21/17 at 21:00 Nitroglycerin (Nitroglycerin (Sl Tab) 0.4 Mg) 1 tab Q5M PRN SL ANGINA; Start at 18:30 Allopurinol (Zyloprim) 300 mg DAILY PO Last administered on 04/25/17 12:23; Admin Dose 300 MG; Start 04/22/17 at 09:00 Aspirin (Halfprin) 81 mg DAILY PO Last administered on 04/25/17 12:24; Admin Dose 81 MG; Start 04/22/17 at 09:00 Valsartan (Diovan) 160 mg DAILY PO Last administered on 04/24/17 08:42; Admin Dose 160 MG; Start 04/22/17 at 09:00 Atorvastatin Calcium (Lipitor) 10 mg DAILY@21 PO Last administered on 20:17; Admin Dose 10 MG; Start 04/21/17 at 22:00 Metoprolol Tartrate (Lopressor) 12.5 mg BID PO Last administered on 04/24/17 20:18; Admin Dose 12.5 MG; Start 04/22/17 at 21:00 Loperamide HCl 2 mg 2 mg QID PRN PO DIARRHEA Last administered on 04/25/17 12: 23; Admin Dose 2 MG; Start 04/24/17 at 12:00 Ceftriaxone Sodium (Rocephin) 50 ml @ 100 mls/hr Q24H IVPB Last administered on 04/25/17 14:10; Admin Dose 100 MLS/HR; Start 04/25/17 at 13:30 Levofloxacin (Levaquin) 500 mg Q48H PO Last administered on 04/25/17 14:10; Admin Dose 500 MG; Start 04/25/17 at 12:30 Lactobacillus Acidophilus (Florajen3 Capsule) 1 each BID PO ; Start 04/25/17 at 21:00 NETTA SALOMON MD Apr 25, 2017 14:39 NETTA SALOMON MD Apr 25, 2017 14:39
--- NOTE | 2017-04-25 17:16 | CONS ---
Date/Time of Note Date/Time of Note DATE: 04/25/17 TIME: 17:13 Assessment/Plan Assessment/Plan Additional Assessment/Plan 1. Acute on chronic back pain 2. Catheter malfunction , missed HD s/p Exchange of permacath on 04/22/17 3. ESRD on HD TTS schedule at [facility] [place] [facility] 4. leucocytosis with WBC 22.0 possibley due to OM of spine, still has it 5. Hypertension 6. Hyperlipidemia 7. H/o Prostate CA< H/o gout, H/o Atrial fibrillation Plan: Plan for HD today, pt regular schedule for HD is Tue, , , we will keep him on Tuesday,tuesday and Tuesday HD schedule while being in hospital IV abx, levaquin, ceftriaxone and vanocmycin for OM of spine S/p neurosurgery consult, who recoomended to have transfer if ID thinks biopsy is necessary to guide Treatment plan HD ordered for today, Blood cx negative to date will followup Consultation Date/Type/Reason Admit Date/Time Apr 22, 2017 at 14:24 Initial Consult Date 04/21/17 Type of Consultation: NEPHROLOGY Referring Provider: HAVEN SANDOVAL 24 HR Interval Summary Free Text/Dictation pt stable, plan for HD today Exam/Review of Systems Vital Signs Vitals Vital Signs Date Time Temp Pulse Resp B/P Pulse Ox O2 Delivery O2 Flow Rate FiO2 04/25/17 11:20 73 19 04/25/17 08:04 97.1 108/57 99 04/24/17 09:17 21 04/21/17 21:00 Room Air Intake and Output 04/24/17 04/24/17 04/25/17 15:00 23:00 07:00 Intake Total 250 ml 800 ml 400 ml Output Total 200 ml 280 ml Balance 250 ml 600 ml 120 ml Exam Constitutional: alert Psych: no complaints Head: normocephalic ENMT: nl external ears & nose Neck: non-tender, supple Respiratory: clear to auscultation, diminished breath sounds, normal air movement Cardiovascular: nl pulses, regular rate and rhythm Gastrointestinal: nl liver, spleen, non-tender, soft Musculoskeletal: nl extremities to inspection Extremities: normal pulses Neurological: CASING MAN II-XII intact, nl mental status, nl speech, nl strength Skin: nl turgor Lymph: nl lymph nodes Results Result Diagram: 04/25/17 0711 04/25/17 0711 Results 24 hrs Laboratory Tests Test 04/25/17 07:11 White Blood Count 7.4 Red Blood Count 3.51 L Hemoglobin 10.0 L Hematocrit 31.3 L Mean Corpuscular Volume 89.2 Mean Corpuscular Hemoglobin 28.5 L Mean Corpuscular Hemoglobin Concent 31.9 L Red Cell Distribution Width 15.8 H Platelet Count 257 Mean Platelet Volume 9.2 Neutrophils % 71.7 Lymphocytes % 15.6 Monocytes % 8.4 Eosinophils % 2.7 Basophils % 1.2 Nucleated Red Blood Cells % 0.0 Neutrophils # 5.3 Lymphocytes # 1.2 Monocytes # 0.6 Eosinophils # 0.2 Basophils # 0.1 Nucleated Red Blood Cells # 0.0 Sodium Level 137 Potassium Level 5.0 Chloride Level 106 Carbon Dioxide Level 25 Anion Gap 11 Blood Urea Nitrogen 40 H Creatinine 3.79 H Glucose Level 92 Calcium Level 8.4 Medications Medications Current Medications Ondansetron HCl (Zofran Inj) 4 mg Q6H PRN IV NAUSEA AND/OR VOMITING; Start at 18:30 Acetaminophen (Tylenol Tab) 650 mg Q6H PRN PO PAIN LEVEL 1-3 OR FEVER; Start at 18:30 Acetaminophen/ Hydrocodone Bitart ([place] (5/325)) 1 tab Q6H PRN PO MODERATE PAIN LEVEL 4-6; Start 04/21/17 at 18:30 Morphine Sulfate (morphine) 2 mg Q4H PRN IV SEVERE PAIN LEVEL 7-10; Start 04/21 at 18:30 Docusate Sodium (Colace) 100 mg Q12H PRN PO CONSTIPATION; Start 04/21/17 at 18: 30 Magnesium Hydroxide (Milk Of Mag) 30 ml DAILY PRN PO CONSTIPATION; Start at 18:30 Sodium Biphosphate/ Sodium Phosphate (Fleet Enema) 133 ml DAILY PRN ID CONSTIPATION; Start 04/21/17 at 18:30 Heparin Sodium (Porcine) (Heparin (5000 Units/0.5 ml)) 5,000 unit Q12 SC Last administered on 04/25/17t 12:22; Admin Dose 5,000 UNIT; Start 04/21/17 at 21:00 Nitroglycerin (Nitroglycerin (Sl Tab) 0.4 Mg) 1 tab Q5M PRN SL ANGINA; Start at 18:30 Allopurinol (Zyloprim) 300 mg DAILY PO Last administered on 04/25/17 12:23; Admin Dose 300 MG; Start 04/22/17 at 09:00 Aspirin (Halfprin) 81 mg DAILY PO Last administered on 04/25/17 12:24; Admin Dose 81 MG; Start 04/22/17 at 09:00 Valsartan (Diovan) 160 mg DAILY PO Last administered on 04/24/17 08:42; Admin Dose 160 MG; Start 04/22/17 at 09:00 Atorvastatin Calcium (Lipitor) 10 mg DAILY@21 PO Last administered on 20:17; Admin Dose 10 MG; Start 04/21/17 at 22:00 Metoprolol Tartrate (Lopressor) 12.5 mg BID PO Last administered on 04/24/17 20:18; Admin Dose 12.5 MG; Start 04/22/17 at 21:00 Loperamide HCl 2 mg 2 mg QID PRN PO DIARRHEA Last administered on 04/25/17 12: 23; Admin Dose 2 MG; Start 04/24/17 at 12:00 Ceftriaxone Sodium (Rocephin) 50 ml @ 100 mls/hr Q24H IVPB Last administered on 04/25/17 14:10; Admin Dose 100 MLS/HR; Start 04/25/17 at 13:30 Levofloxacin (Levaquin) 500 mg Q48H PO Last administered on 04/25/17 14:10; Admin Dose 500 MG; Start 04/25/17 at 12:30 Lactobacillus Acidophilus (Florajen3 Capsule) 1 each BID PO ; Start 04/25/17 at 21:00 MADELYN MIRANDA MD Apr 25, 2017 17:16
--- NOTE | 2017-04-25 17:27 | PN ---
DATE: 04/25/2017 SUBJECTIVE DATA: No acute changes overnight. The patient is in hemodialysis. Alert. Denies pain. Looks comfortable. No fevers. LABORATORY DATA: WBC today is 7.4, no shift, no bands. INDWELLINGS: Right femoral PermCath. ANTIMICROBIALS: Patient is on IV vancomycin and Levaquin. PHYSICAL EXAMINATION: GENERAL: This is a well-developed, wasted, elderly man, who is alert, in no distress. HEENT: Head atraumatic, normocephalic. Sclerae anicteric. Buccal mucosa dry. NECK: Supple. CHEST: Rise symmetrical. Breath sounds clear. HEART: S1, S2. ABDOMEN: Soft, bowel sounds present. EXTREMITIES: Without cyanosis. ASSESSMENT: 1. Thoracolumbar discitis with osteomyelitis, status post 6 to 8 weeks of antibiotics, the last dose was on April 07 as per discussion with Dr. Juan Avalos, who was following the patient at the facility. The patient is being seen by neurosurgery. 2. End-stage renal disease, hemodialysis dependent. 3. Hypertension. 4. Atrial fibrillation. 5. History of prostate cancer. 6. Allergy to penicillin. PLAN: The patient is clinically and hemodynamically stable. He is being seen by Dr. Vazquez in ortho consultation. There is no epidural abscess or compressive stenosis from infection per his note and his recommendation is bracing and medical treatment with antibiotics. We are going to change Levaquin to p.o. and start him on full dose Rocephin 1 g IV daily. The patient will require intermediate teacher IV antibiotics at least another 6 weeks by ortho surgeon as an outpatient during treatment with antibiotics. Dictated By: Wilbert Munoz NP /lizzy/lillian /Document#: [id number]
[2017-04-25] MEDS: ATORVASTATIN 10 MG TAB PO SCH (21:18)
[2017-04-25] MEDS: L ACIDOPHIL/B LACTIS/B LONGUM CAPSULE PO SCH (21:34)
[2017-04-26 01:10] VITALS: BP 95/53; RESP 18
[2017-04-26 07:31] LABS: WHITE BLOOD COUNT 6.7 10^3/ul (4.8-10.8)
[2017-04-26 07:32] LABS: BASOPHIL # 0.1 10^3/ul (0.0-0.1); BASOPHILS % 1.7 % (0.0-2.0); EOSINOPHILS # 0.2 10^3/ul (0.0-0.5); EOSINOPHILS % 3.3 % (0.0-7.0); HEMOGLOBIN 9.6 g/dl (14.0-18.0); LYMPHOCYTES # 1.1 10^3/ul (0.8-2.9); LYMPHOCYTES % 16.5 % (15.0-51.0); MEAN CORPUSCULAR HEMOGLOBIN 27.5 pg (29.0-33.0); MEAN CORPUSCULAR VOLUME 88.8 fl (82.0-101.0); MEAN PLATELET VOLUME 10.2 fl (7.4-10.4); MONOCYTE # 0.6 10^3/ul (0.3-0.9); NEUTROPHIL # 4.6 10^3/ul (1.6-7.5); NEUTROPHILS % 69.2 % (39.0-77.0); PLATELET COUNT 247 10^3/UL (140-415); RED BLOOD COUNT 3.49 10^6/ul (4.70-6.10); RED CELL DISTRIBUTION WIDTH 15.9 % (11.5-14.5)
[2017-04-26 07:37] VITALS: BP 91/52; RESP 20
[2017-04-26] MEDS: METOPROLOL 25 MG TAB PO SCH ×2 (09:00→20:22)
[2017-04-26] MEDS: VALSARTAN 160 MG TAB PO SCH (09:00)
[2017-04-26 09:36] LABS: CALCIUM 7.8 mg/dl (8.4-10.2); CREATININE 2.86 mg/dl (0.61-1.24); POTASSIUM 3.6 mmol/L (3.5-5.1)
[2017-04-26] MEDS: L ACIDOPHIL/B LACTIS/B LONGUM CAPSULE PO SCH ×2 (09:42→20:23)
[2017-04-26] MEDS: ALLOPURINOL 300 MG TAB PO SCH (09:43)
[2017-04-26] MEDS: ASPIRIN (EC) 81 MG TAB PO SCH (09:43)
[2017-04-26] MEDS: HEPARIN 5,000 UNIT/0.5 ML VIAL SC SCH ×2 (09:45→20:21)
[2017-04-26 12:39] VITALS: BP 108/60; RESP 19
--- NOTE | 2017-04-26 13:41 | CONS ---
Date/Time of Note Date/Time of Note DATE: 04/26/17 TIME: 13:40 Assessment/Plan Assessment/Plan Chief Complaint/Hosp Course SUBJECTIVE DATA: No acute changes overnight. The patient is in hemodialysis. Alert. Denies pain. Looks comfortable. No fevers. INDWELLINGS: Right femoral PermCath. ANTIMICROBIALS: Patient is on IV vancomycin and Levaquin. PHYSICAL EXAMINATION: GENERAL: This is a well-developed, wasted, elderly man, who is alert, in no distress. HEENT: Head atraumatic, normocephalic. Sclerae anicteric. Buccal mucosa dry. NECK: Supple. CHEST: Rise symmetrical. Breath sounds clear. HEART: S1, S2. ABDOMEN: Soft, bowel sounds present. EXTREMITIES: Without cyanosis. ASSESSMENT: 1. Thoracolumbar discitis with osteomyelitis, status post 6 to 8 weeks of antibiotics, the last dose was on April 07 as per discussion with Dr. Juan Avalos, who was following the patient at the facility. The patient is being seen by neurosurgery. 2. End-stage renal disease, hemodialysis dependent. 3. Hypertension. 4. Atrial fibrillation. 5. History of prostate cancer. 6. Allergy to penicillin. PLAN: The patient is clinically and hemodynamically stable. He is being seen by Dr. Vazquez in ortho consultation. There is no epidural abscess or compressive stenosis from infection per his note and his recommendation is bracing and medical treatment with antibiotics. Pt to be dc on Vanco and PO Levaquin for 6 weeks to f[facility] rec-s and treatments DW staff Problems: Consultation Date/Type/Reason Admit Date/Time Apr 22, 2017 at 14:24 Initial Consult Date 04/21/17 Type of Consultation: ID Referring Provider: HAVEN SANDOVAL Exam/Review of Systems Vital Signs Vitals Vital Signs Date Time Temp Pulse Resp B/P Pulse Ox O2 Delivery O2 Flow Rate FiO2 04/26/17 12:39 97.6 91 19 108/60 96 04/25/17 22:25 21 Intake and Output 04/25/17 04/25/17 04/26/17 15:00 23:00 07:00 Intake Total 300 ml 550 ml 500 ml Output Total 2300 ml 200 ml 300 ml Balance -2000 ml 350 ml 200 ml Results Result Diagram: 04/26/17 0609 04/26/17 0609 Results 24 hrs Laboratory Tests Test 04/26/17 06:09 White Blood Count 6.7 Red Blood Count 3.49 L Hemoglobin 9.6 L Hematocrit 31.0 L Mean Corpuscular Volume 88.8 Mean Corpuscular Hemoglobin 27.5 L Mean Corpuscular Hemoglobin Concent 31.0 L Red Cell Distribution Width 15.9 H Platelet Count 247 Mean Platelet Volume 10.2 Neutrophils % 69.2 Lymphocytes % 16.5 Monocytes % 9.0 Eosinophils % 3.3 Basophils % 1.7 Nucleated Red Blood Cells % 0.0 Neutrophils # 4.6 Lymphocytes # 1.1 Monocytes # 0.6 Eosinophils # 0.2 Basophils # 0.1 Nucleated Red Blood Cells # 0.0 Sodium Level 136 Potassium Level 3.6 Chloride Level 103 Carbon Dioxide Level 26 Anion Gap 11 Blood Urea Nitrogen 27 #H Creatinine 2.86 H Glucose Level 88 Calcium Level 7.8 L Medications Medications Current Medications Ondansetron HCl (Zofran Inj) 4 mg Q6H PRN IV NAUSEA AND/OR VOMITING; Start at 18:30 Acetaminophen (Tylenol Tab) 650 mg Q6H PRN PO PAIN LEVEL 1-3 OR FEVER; Start at 18:30 Acetaminophen/ Hydrocodone Bitart ([place] (5/325)) 1 tab Q6H PRN PO MODERATE PAIN LEVEL 4-6; Start 04/21/17 at 18:30 Morphine Sulfate (morphine) 2 mg Q4H PRN IV SEVERE PAIN LEVEL 7-10; Start 04/21 at 18:30 Docusate Sodium (Colace) 100 mg Q12H PRN PO CONSTIPATION; Start 04/21/17 at 18: 30 Magnesium Hydroxide (Milk Of Mag) 30 ml DAILY PRN PO CONSTIPATION; Start at 18:30 Sodium Biphosphate/ Sodium Phosphate (Fleet Enema) 133 ml DAILY PRN [place] CONSTIPATION; Start 04/21/17 at 18:30 Heparin Sodium (Porcine) (Heparin (5000 Units/0.5 ml)) 5,000 unit Q12 SC Last administered on 04/26/17t 09:45; Admin Dose 5,000 UNIT; Start 04/21/17 at 21:00 Nitroglycerin (Nitroglycerin (Sl Tab) 0.4 Mg) 1 tab Q5M PRN SL ANGINA; Start at 18:30 Allopurinol (Zyloprim) 300 mg DAILY PO Last administered on 04/26/17 09:43; Admin Dose 300 MG; Start 04/22/17 at 09:00 Aspirin (Halfprin) 81 mg DAILY PO Last administered on 04/26/17 09:43; Admin Dose 81 MG; Start 04/22/17 at 09:00 Valsartan (Diovan) 160 mg DAILY PO Last administered on 04/24/17 08:42; Admin Dose 160 MG; Start 04/22/17 at 09:00 Atorvastatin Calcium (Lipitor) 10 mg DAILY@21 PO Last administered on 21:18; Admin Dose 10 MG; Start 04/21/17 at 22:00 Metoprolol Tartrate (Lopressor) 12.5 mg BID PO Last administered on 04/24/17 20:18; Admin Dose 12.5 MG; Start 04/22/17 at 21:00 Loperamide HCl 2 mg 2 mg QID PRN PO DIARRHEA Last administered on 04/25/17 12: 23; Admin Dose 2 MG; Start 04/24/17 at 12:00 Ceftriaxone Sodium (Rocephin) 50 ml @ 100 mls/hr Q24H IVPB Last administered on 04/25/17 14:10; Admin Dose 100 MLS/HR; Start 04/25/17 at 13:30 Levofloxacin (Levaquin) 500 mg Q48H PO Last administered on 04/25/17 14:10; Admin Dose 500 MG; Start 04/25/17 at 12:30 Lactobacillus Acidophilus (Florajen3 Capsule) 1 each BID PO Last administered on 04/26/17 09:42; Admin Dose 1 EACH; Start 04/25/17 at 21:00 Miscellaneous Information (*Rx Drug Level Order Reminder*) 1 ONCE ONCE XX ; Start 04/27/17 at 05:00; Stop 04/27/17 at 05:01 CHERRIE JAUREGUI NP Apr 26, 2017 13:41
--- NOTE | 2017-04-26 13:42 | CONS ---
Date/Time of Note Date/Time of Note DATE: 04/26/17 TIME: 13:40 Assessment/Plan Assessment/Plan Additional Assessment/Plan 1. Acute on chronic back pain 2. Catheter malfunction , missed HD s/p Exchange of permacath on 04/22/17 3. ESRD on HD TTS schedule at [facility] HD center 4. leucocytosis with WBC 22.0 possibley due to OM of spine, still has it 5. Hypertension 6. Hyperlipidemia 7. H/o Prostate CA< H/o gout, H/o Atrial fibrillation Plan: Plan for HD tomorrow pt regular schedule for HD is Tue, , , we will keep him on Tuesday,tuesday and Tuesday HD schedule while being in hospital IV abx, levaquin, ceftriaxone and vanocmycin for OM of spine S/p neurosurgery consult, , ID recommended 6 weeks of IV ceftriaxone HD ordered for tomorrow, Blood cx negative to date will followup Consultation Date/Type/Reason Admit Date/Time Apr 22, 2017 at 14:24 Initial Consult Date 04/21/17 Type of Consultation: NEPHROLOGY Referring Provider: HAVEN SANDOVAL 24 HR Interval Summary Free Text/Dictation doing ok, BP stable, ID recommending 6 weeks of IV abx Ceftriaxone Exam/Review of Systems Vital Signs Vitals Vital Signs Date Time Temp Pulse Resp B/P Pulse Ox O2 Delivery O2 Flow Rate FiO2 04/26/17 12:39 97.6 91 19 108/60 96 04/25/17 22:25 21 Intake and Output 04/25/17 04/25/17 04/26/17 15:00 23:00 07:00 Intake Total 300 ml 550 ml 500 ml Output Total 2300 ml 200 ml 300 ml Balance -2000 ml 350 ml 200 ml Exam Constitutional: alerte Respiratory: clear to auscultation, diminished breath sounds, normal air movement Cardiovascular: nl pulses, regular rate and rhythm Gastrointestinal: nl liver, spleen, non-tender, soft Musculoskeletal: nl extremities to inspection Extremities: normal pulses Neurological: TILE SPRAYER II-XII intact, nl mental status, nl speech, nl strength Skin: nl turgor Lymph: nl lymph nodes Results Result Diagram: 04/26/17 0609 04/26/17 0609 Results 24 hrs Laboratory Tests Test 04/26/17 06:09 White Blood Count 6.7 Red Blood Count 3.49 L Hemoglobin 9.6 L Hematocrit 31.0 L Mean Corpuscular Volume 88.8 Mean Corpuscular Hemoglobin 27.5 L Mean Corpuscular Hemoglobin Concent 31.0 L Red Cell Distribution Width 15.9 H Platelet Count 247 Mean Platelet Volume 10.2 Neutrophils % 69.2 Lymphocytes % 16.5 Monocytes % 9.0 Eosinophils % 3.3 Basophils % 1.7 Nucleated Red Blood Cells % 0.0 Neutrophils # 4.6 Lymphocytes # 1.1 Monocytes # 0.6 Eosinophils # 0.2 Basophils # 0.1 Nucleated Red Blood Cells # 0.0 Sodium Level 136 Potassium Level 3.6 Chloride Level 103 Carbon Dioxide Level 26 Anion Gap 11 Blood Urea Nitrogen 27 #H Creatinine 2.86 H Glucose Level 88 Calcium Level 7.8 L Medications Medications Current Medications Ondansetron HCl (Zofran Inj) 4 mg Q6H PRN IV NAUSEA AND/OR VOMITING; Start at 18:30 Acetaminophen (Tylenol Tab) 650 mg Q6H PRN PO PAIN LEVEL 1-3 OR FEVER; Start at 18:30 Acetaminophen/ Hydrocodone Bitart ([place] (5/325)) 1 tab Q6H PRN PO MODERATE PAIN LEVEL 4-6; Start 04/21/17 at 18:30 Morphine Sulfate (morphine) 2 mg Q4H PRN IV SEVERE PAIN LEVEL 7-10; Start 04/21 at 18:30 Docusate Sodium (Colace) 100 mg Q12H PRN PO CONSTIPATION; Start 04/21/17 at 18: 30 Magnesium Hydroxide (Milk Of Mag) 30 ml DAILY PRN PO CONSTIPATION; Start at 18:30 Sodium Biphosphate/ Sodium Phosphate (Fleet Enema) 133 ml DAILY PRN [place] CONSTIPATION; Start 04/21/17 at 18:30 Heparin Sodium (Porcine) (Heparin (5000 Units/0.5 ml)) 5,000 unit Q12 SC Last administered on 04/26/17 09:45; Admin Dose 5,000 UNIT; Start 04/21/17 at 21:00 Nitroglycerin (Nitroglycerin (Sl Tab) 0.4 Mg) 1 tab Q5M PRN SL ANGINA; Start at 18:30 Allopurinol (Zyloprim) 300 mg DAILY PO Last administered on 04/26/17 09:43; Admin Dose 300 MG; Start 04/22/17 at 09:00 Aspirin (Halfprin) 81 mg DAILY PO Last administered on 04/26/17 09:43; Admin Dose 81 MG; Start 04/22/17 at 09:00 Valsartan (Diovan) 160 mg DAILY PO Last administered on 04/24/17 08:42; Admin Dose 160 MG; Start 04/22/17 at 09:00 Atorvastatin Calcium (Lipitor) 10 mg DAILY@21 PO Last administered on 21:18; Admin Dose 10 MG; Start 04/21/17 at 22:00 Metoprolol Tartrate (Lopressor) 12.5 mg BID PO Last administered on 04/24/17 20:18; Admin Dose 12.5 MG; Start 04/22/17 at 21:00 Loperamide HCl 2 mg 2 mg QID PRN PO DIARRHEA Last administered on 04/25/17 12: 23; Admin Dose 2 MG; Start 04/24/17 at 12:00 Ceftriaxone Sodium (Rocephin) 50 ml @ 100 mls/hr Q24H IVPB Last administered on 04/25/17 14:10; Admin Dose 100 MLS/HR; Start 04/25/17 at 13:30 Levofloxacin (Levaquin) 500 mg Q48H PO Last administered on 04/25/17 14:10; Admin Dose 500 MG; Start 04/25/17 at 12:30 Lactobacillus Acidophilus (Florajen3 Capsule) 1 each BID PO Last administered on 04/26/17 09:42; Admin Dose 1 EACH; Start 04/25/17 at 21:00 Miscellaneous Information (*Rx Drug Level Order Reminder*) 1 ONCE ONCE XX ; Start 04/27/17 at 05:00; Stop 04/27/17 at 05:01 MADELYN MIRANDA MD Apr 26, 2017 13:42
[2017-04-26] MEDS: CEFTRIAXONE 2 GM/50 ML (PMX) 50 ML IVPB SCH (13:47)
[2017-04-26 14:29] VITALS: BP 120/56; RESP 20
--- NOTE | 2017-04-26 15:04 | PN ---
Date/Time of Note Date/Time of Note DATE: 04/26/17 TIME: 15:03 Assessment/Plan VTE Prophylaxis VTE Prophylaxis Intervention: SCD's Lines/Catheters IV Catheter Type (from Nrsg): PERMACATH FOR HD Urinary Cath still in place: No Assessment/Plan Assessment/Plan 71 yo M with ESRD on HD, h/o vertebral OM diagnosed earlier this summer presented with c/o nonfunctioning HD catheter, found to have worsening of vertebral OM despite 6 weeks of antimicrobials. #ESRD on HD, catheter malfunction -line replaced by IR 9.15 -renal following for HD #vertebral OM (t11-t12): imaging this hospital stay worse than previous. No hx of bone biopsy for micro during last admission. Pt completed 6 weeks of abx, appears to have been with levoflox and vanc? -sp ortho and neurosurg eval. surgical services advising trial of conservative/ non operative management with repeat imaging in additional 6 weeks -ID following; vanc can be given with HD. Levoflox PO #HTN, HL, gout: cont home meds given pt's surgical hx, age, etc, neurosurgery is advising surgical follow up with tertiary center after discharge for further surgical evaluation. will place CM consult to help arrange this Pt medically clear for discharge, CM consult placed to assist with logistics and dispo ([facility] v SNF v convalescent home) Subjective 24 Hr Interval Summary Free Text/Dictation Talked to ID. Pt will not need rocephin, will instead be discharged on PO levoflox and vanc given with HD Exam/Review of Systems Vital Signs Vitals Vital Signs Date Time Temp Pulse Resp B/P Pulse Ox O2 Delivery O2 Flow Rate FiO2 04/26/17 14:29 97.5 87 20 120/56 96 04/25/17 22:25 21 Intake and Output 04/25/17 04/25/17 04/26/17 15:00 23:00 07:00 Intake Total 300 ml 550 ml 500 ml Output Total 2300 ml 200 ml 300 ml Balance -2000 ml 350 ml 200 ml Exam nad no mrg lungs clear abd soft no rashes Results Result Diagram: 04/26/17 0609 04/26/17 0609 Results 24 hrs Laboratory Tests Test 04/26/17 06:09 White Blood Count 6.7 Red Blood Count 3.49 L Hemoglobin 9.6 L Hematocrit 31.0 L Mean Corpuscular Volume 88.8 Mean Corpuscular Hemoglobin 27.5 L Mean Corpuscular Hemoglobin Concent 31.0 L Red Cell Distribution Width 15.9 H Platelet Count 247 Mean Platelet Volume 10.2 Neutrophils % 69.2 Lymphocytes % 16.5 Monocytes % 9.0 Eosinophils % 3.3 Basophils % 1.7 Nucleated Red Blood Cells % 0.0 Neutrophils # 4.6 Lymphocytes # 1.1 Monocytes # 0.6 Eosinophils # 0.2 Basophils # 0.1 Nucleated Red Blood Cells # 0.0 Sodium Level 136 Potassium Level 3.6 Chloride Level 103 Carbon Dioxide Level 26 Anion Gap 11 Blood Urea Nitrogen 27 #H Creatinine 2.86 H Glucose Level 88 Calcium Level 7.8 L Medications Medications Current Medications Ondansetron HCl (Zofran Inj) 4 mg Q6H PRN IV NAUSEA AND/OR VOMITING; Start at 18:30 Acetaminophen (Tylenol Tab) 650 mg Q6H PRN PO PAIN LEVEL 1-3 OR FEVER; Start at 18:30 Acetaminophen/ Hydrocodone Bitart ([place] (5/325)) 1 tab Q6H PRN PO MODERATE PAIN LEVEL 4-6; Start 04/21/17 at 18:30 Morphine Sulfate (morphine) 2 mg Q4H PRN IV SEVERE PAIN LEVEL 7-10; Start 04/21 at 18:30 Docusate Sodium (Colace) 100 mg Q12H PRN PO CONSTIPATION; Start 04/21/17 at 18: 30 Magnesium Hydroxide (Milk Of Mag) 30 ml DAILY PRN PO CONSTIPATION; Start at 18:30 Sodium Biphosphate/ Sodium Phosphate (Fleet Enema) 133 ml DAILY PRN [place] CONSTIPATION; Start 04/21/17 at 18:30 Heparin Sodium (Porcine) (Heparin (5000 Units/0.5 ml)) 5,000 unit Q12 SC Last administered on 04/26/17 09:45; Admin Dose 5,000 UNIT; Start 04/21/17 at 21:00 Nitroglycerin (Nitroglycerin (Sl Tab) 0.4 Mg) 1 tab Q5M PRN SL ANGINA; Start at 18:30 Allopurinol (Zyloprim) 300 mg DAILY PO Last administered on 04/26/17 09:43; Admin Dose 300 MG; Start 04/22/17 at 09:00 Aspirin (Halfprin) 81 mg DAILY PO Last administered on 04/26/17 09:43; Admin Dose 81 MG; Start 04/22/17 at 09:00 Valsartan (Diovan) 160 mg DAILY PO Last administered on 04/24/17 08:42; Admin Dose 160 MG; Start 04/22/17 at 09:00 Atorvastatin Calcium (Lipitor) 10 mg DAILY@21 PO Last administered on 21:18; Admin Dose 10 MG; Start 04/21/17 at 22:00 Metoprolol Tartrate (Lopressor) 12.5 mg BID PO Last administered on 04/24/17 20:18; Admin Dose 12.5 MG; Start 04/22/17 at 21:00 Loperamide HCl 2 mg 2 mg QID PRN PO DIARRHEA Last administered on 04/25/17 12: 23; Admin Dose 2 MG; Start 04/24/17 at 12:00 Ceftriaxone Sodium (Rocephin) 50 ml @ 100 mls/hr Q24H IVPB Last administered on 04/26/17 13:47; Admin Dose 100 MLS/HR; Start 04/25/17 at 13:30 Levofloxacin (Levaquin) 500 mg Q48H PO Last administered on 04/25/17 14:10; Admin Dose 500 MG; Start 04/25/17 at 12:30 Lactobacillus Acidophilus (Florajen3 Capsule) 1 each BID PO Last administered on 04/26/17 09:42; Admin Dose 1 EACH; Start 04/25/17 at 21:00 Miscellaneous Information (*Rx Drug Level Order Reminder*) 1 ONCE ONCE XX ; Start 04/27/17 at 05:00; Stop 04/27/17 at 05:01 NETTA SALOMON MD Apr 26, 2017 15:04
[2017-04-26] MEDS: LOPERAMIDE 2 MG CAP PO PRN (17:50)
[2017-04-26 19:01] VITALS: BP 125/58; RESP 18
[2017-04-26] MEDS: ATORVASTATIN 10 MG TAB PO SCH (20:23)
[2017-04-27] VITALS (10 sets, daily range): BP systolic 105–131; BP diastolic 52–66; PULSE 79–85; RESP 16–18
[2017-04-27 05:46] LABS: BASOPHIL # 0.1 10^3/ul (0.0-0.1); BASOPHILS % 1.1 % (0.0-2.0); EOSINOPHILS # 0.2 10^3/ul (0.0-0.5); EOSINOPHILS % 2.5 % (0.0-7.0); HEMOGLOBIN 9.8 g/dl (14.0-18.0); LYMPHOCYTES # 1.2 10^3/ul (0.8-2.9); LYMPHOCYTES % 13.4 % (15.0-51.0); MEAN CORPUSCULAR HEMOGLOBIN 27.9 pg (29.0-33.0); MEAN CORPUSCULAR HGB CONC 31.6 g/dl (32.0-37.0); MEAN CORPUSCULAR VOLUME 88.3 fl (82.0-101.0); MEAN PLATELET VOLUME 9.4 fl (7.4-10.4); MONOCYTE # 0.7 10^3/ul (0.3-0.9); MONOCYTES % 7.4 % (0.0-11.0); NEUTROPHIL # 6.6 10^3/ul (1.6-7.5); NEUTROPHILS % 75.1 % (39.0-77.0); PLATELET COUNT 255 10^3/UL (140-415); RED BLOOD COUNT 3.51 10^6/ul (4.70-6.10); RED CELL DISTRIBUTION WIDTH 15.8 % (11.5-14.5); WHITE BLOOD COUNT 8.8 10^3/ul (4.8-10.8)
[2017-04-27 06:23] LABS: CALCIUM 8.1 mg/dl (8.4-10.2); CREATININE 3.12 mg/dl (0.61-1.24); POTASSIUM 4.7 mmol/L (3.5-5.1)
[2017-04-27] MEDS: VALSARTAN 160 MG TAB PO SCH (08:43)
[2017-04-27] MEDS: ALLOPURINOL 300 MG TAB PO SCH (08:44)
[2017-04-27] MEDS: L ACIDOPHIL/B LACTIS/B LONGUM CAPSULE PO SCH (08:44)
[2017-04-27] MEDS: METOPROLOL 25 MG TAB PO SCH (08:44)
[2017-04-27] MEDS: ASPIRIN (EC) 81 MG TAB PO SCH (08:44)
[2017-04-27] MEDS ORDERED: LEVO500T72 PO (08:47)
--- NOTE | 2017-04-27 08:50 | PDOCDIS ---
Discharge Instructions CONDITION Patient Condition: Stable HOME CARE INSTRUCTIONS: Special Diet: RENAL DIET ACTIVITY: Activity Restrictions: Special Program Activity Restrictions Comment: Wear your back brace when out of bed as previously advised FOLLOW UP/APPOINTMENTS Follow-up Plan [facility] appointment: TuesdayMay 18 at 215pm [address] [facility] [address] in [place] Please call [phone] if you need to change this appointment bring both your imaging CDs and reports to this appointment Follow up with the infectious disease doctor within 3-4 weeks to get a prescription for more antibiotics Dr Szymanski Office Address [address] [facility] [address] [place], [place] [id number] Office NETTA SALOMON MD Apr 27, 2017 08:50
[2017-04-27] MEDS: HEPARIN 5,000 UNIT/0.5 ML VIAL SC SCH (08:54)
--- NOTE | 2017-04-27 09:04 | DS ---
Date/Time of Note Date/Time of Note DATE: 04/27/17 TIME: 08:58 Discharge Summary Admission/Discharge Info Admit Date/Time Apr 22, 2017 at 14:24 Discharge Date/Time Discharge Diagnosis malfunctioning HD catheter, vertebral osteomyelitis Patient Condition: Stable Consults ID, neurosurgery, orthopedics, nephrology Procedures 9.15 HD catheter replacement IMPRESSION: 1. Satisfactory replacement of tunneled right femoral dialysis catheter. 9.15 MRI T/L Spine IMPRESSION: Redemonstrated diskitis and osteomyelitis at T11-12 with progression of T11 moderate-severe pathologic compression fracture since 01/15/2017. Diskitis osteomyelitis of T10-11 and T12-L1 noted. Mild T12 compression fracture. Chronic moderate to severe L1 compression fracture with evidence of prior vertebral augmentation. Multilevel lumbar degenerative changes with severe spinal canal stenosis L3-4 and L4-5 and moderate to severe spinal canal narrowing L3-4. Abnormal hyperintense T2 signal with erosive changes of the endplates at L2-3 and L4-5 are seen which may be due to discogenic disease but the possibility of superimposed diskitis at these levels is not excluded. Redemonstrated diskitis and osteomyelitis centered at T11-12 with additional involvement of T10-11 and T12-L1. Moderate to severe pathologic fracture of T11 has progressed since 01/15/2017 with increased vertebral height loss. No definite epidural fluid collection seen on this noncontrast study. At T11-12 there is a 2 mm broad disc osteophyte complex and ligamentum flavum thickening resulting in mild to moderate spinal canal stenosis. Mild compression fracture of T12. Chronic moderate to severe L1 compression fracture with evidence of prior vertebral augmentation. No high-grade upper thoracic spinal canal stenosis. Partially imaged degenerative changes of the cervical spine with moderate spinal canal narrowing C3-4 and mild to moderate spinal canal narrowing at the remaining levels as detailed. Hx of Present Illness The patient is a 71-year-old male with past medical history of essential hypertension, high cholesterol, chronic back pain. Prior diskitis and osteomyelitis. End-stage renal disease, on dialysis. He was sent in by kidney doctor for dialysis catheter placement. Apparently, the patient was discharged from [facility] 2 days ago, and he has been having his dialysis catheter protruding from his right thigh and dialysis has not been able to be performed since that time. He complains of mild back pain, as well, nonradiating but denies any headaches or dizziness. No loss of consciousness. No upper lower GI bleeding. No fevers or chills. No nausea, vomiting. No diarrhea. No constipation. No chest pain or palpitations, or shortness of breath. The patient was last here at our hospital from 12/10/2016 to 01/26/2017 for urinary tract infection and T- spine osteomyelitis, and diskitis and at that time sepsis. Hospital Course Pt admitted for malfunctioning HD catheter which was replaced .. Pt with leukocytosis on admission, given his previous OM/discitis hx, f/u imaging with progression of OM/discitis. Pt seen by ortho and neurosurg both of which advised surgical intervention at this time and instead advised pt should follow with surgical specialists at tertiary center given his comorbidities. Pt seen by ID. Unfortunately, pt's only bone biopsy was done 01.17, after pt had already been on abx for several weeks. Cultures we negative. Pt resumed on previous regimen of IV vanc with HD and PO levoflox. Pt will follow up with his psychiatric cns for HD, ID clinic for further abx, and [facility] spine clinic for monitoring of his OM and discitis Pt has been advised to wear his back brace whenever he is out of bed A referral for outpatient PT has been placed as well as home health Home Meds Active Scripts [vancomycin] No Conflict Check, IV WITH DIALYSIS for 42 Days Prov:NETTA SALOMON MD 04/27/17 Levofloxacin* (Levaquin*) 500 Mg Tablet, 500 MG PO Q48H for 30 Days, #15 TAB Prov:NETTA SALOMON MD 04/27/17 Azithromycin* (Zithromax*) 250 Mg Tablet, 250 MG PO DAILY for 4 Days, TAB Prov:MARLON VALLES MD 03/10/17 Reported Medications Metoprolol Tartrate* (Lopressor*) 25 Mg Tab, 25 MG PO BID, #60 TAB 12/10/16 Valsartan* (Diovan*) 160 Mg Tablet, 160 MG PO DAILY, TAB 12/10/16 Naproxen* (Aleve*) 220 Mg Capsule, 220 MG PO DAILY 11/13/13 Aspirin (Aspirin) 81 Mg Tablet.dr, 81 MG PO DAILY 11/13/13 Simvastatin (Simvastatin) 20 Mg Tablet, 20 MG PO HS 11/13/13 Allopurinol* (Zyloprim*) 300 Mg Tablet, 300 MG PO DAILY 11/13/13 Follow-up Plan [facility] appointment: TuesdayMay 18 at 215pm [address] [facility] [address] in [place] Please call [phone] if you need to change this appointment bring both your imaging CDs and reports to this appointment Follow up with the infectious disease doctor within 3-4 weeks to get a prescription for more antibiotics Dr Martinez Office Address [address] [facility] [address] [place] [address] Office Primary Care Provider Fabricio Hackett Time spent on discharge: > 30 minutes Pending Labs Laboratory Tests Test 04/27/17 05:20 White Blood Count 8.810^3/ul (4.8-10.8) Red Blood Count 3.5110^6/ul (4.70-6.10) Hemoglobin 9.8g/dl (14.0-18.0) Hematocrit 31.0% (42.0-52.0) Mean Corpuscular Volume 88.3fl (82.0-101.0) Mean Corpuscular Hemoglobin 27.9pg (29.0-33.0) Mean Corpuscular Hemoglobin Concent 31.6g/dl (32.0-37.0) Red Cell Distribution Width 15.8% (11.5-14.5) Platelet Count 14112^3/UL (140-415) Mean Platelet Volume 9.4fl (7.4-10.4) Neutrophils % 75.1% (39.0-77.0) Lymphocytes % 13.4% (15.0-51.0) Monocytes % 7.4% (0.0-11.0) Eosinophils % 2.5% (0.0-7.0) Basophils % 1.1% (0.0-2.0) Nucleated Red Blood Cells % 0.0/100WBC (0.0-0.0) Neutrophils # 6.610^3/ul (1.6-7.5) Lymphocytes # 1.210^3/ul (0.8-2.9) Monocytes # 0.710^3/ul (0.3-0.9) Eosinophils # 0.210^3/ul (0.0-0.5) Basophils # 0.110^3/ul (0.0-0.1) Nucleated Red Blood Cells # 0.010^3/ul (0.0-0.0) Sodium Level 136mmol/L (135-144) Potassium Level 4.7mmol/L (3.5-5.1) Chloride Level 104mmol/L (97-110) Carbon Dioxide Level 26mmol/L (21-31) Anion Gap 11 (8-16) Blood Urea Nitrogen 31mg/dl (7-20) Creatinine 3.12mg/dl (0.61-1.24) Glucose Level 92mg/dl (70-220) Calcium Level 8.1mg/dl (8.4-10.2) Random Vancomycin Level 13.5ug/ml Copies To: CC: AYAD MARTINEZ MD; MADELYN MIRANDA MD, ELLEN MD Apr 27, 2017 09:04
[2017-04-27] MEDS ORDERED: vancomycin IV (09:06)
[2017-04-27] MEDS ORDERED: ALTEPLASE (CATHFLO) 2 MG INJ CATHETER ONE (11:00)
--- NOTE | 2017-04-27 11:40 | CONS ---
Date/Time of Note Date/Time of Note DATE: 04/27/17 TIME: 11:39 Assessment/Plan Assessment/Plan Additional Assessment/Plan 1. Acute on chronic back pain 2. Catheter malfunction , missed HD s/p Exchange of permacath on 04/22/17 3. ESRD on HD TTS schedule at [facility] HD center 4. leucocytosis with WBC 22.0 possibley due to OM of spine, still has it 5. Hypertension 6. Hyperlipidemia 7. H/o Prostate CA< H/o gout, H/o Atrial fibrillation Plan: Plan for HD tomorrow pt regular schedule for HD is Tue, , , we will keep him on Tuesday, tuesday and Tuesday HD schedule while being in hospital IV abx, levaquin, and vanocmycin - he is getting discharged with PO levaquin and IV vancomycin in HD unit for 6 weeks S/p neurosurgery consult, , ID recommended 6 weeks of IV abx HD ordered for today will followup Consultation Date/Type/Reason Admit Date/Time Apr 22, 2017 at 14:24 Initial Consult Date 04/21/17 Type of Consultation: NEPHROLOGY Referring Provider: HAVEN SANDOVAL Exam/Review of Systems Vital Signs Vitals Vital Signs Date Time Temp Pulse Resp B/P Pulse Ox O2 Delivery O2 Flow Rate FiO2 04/27/17 10:30 81 04/27/17 10:30 18 04/27/17 07:00 98.6 131/66 100 04/25/17 22:25 21 Intake and Output 04/26/17 04/26/17 04/27/17 15:00 23:00 07:00 Intake Total 50 ml 400 ml Output Total 500 ml Balance 50 ml -100 ml Exam Constitutional: alerte Respiratory: clear to auscultation, diminished breath sounds, normal air movement Cardiovascular: nl pulses, regular rate and rhythm Gastrointestinal: nl liver, spleen, non-tender, soft Musculoskeletal: nl extremities to inspection Extremities: normal pulses Neurological: VICE PRESIDENT OF TALENT ACQUISITION II-XII intact, nl mental status, nl speech, nl strength Skin: nl turgor Lymph: nl lymph nodes Results Result Diagram: 04/27/17 0520 04/27/17 0520 Results 24 hrs Laboratory Tests Test 04/27/17 05:20 White Blood Count 8.8 # Red Blood Count 3.51 L Hemoglobin 9.8 L Hematocrit 31.0 L Mean Corpuscular Volume 88.3 Mean Corpuscular Hemoglobin 27.9 L Mean Corpuscular Hemoglobin Concent 31.6 L Red Cell Distribution Width 15.8 H Platelet Count 255 Mean Platelet Volume 9.4 Neutrophils % 75.1 Lymphocytes % 13.4 L Monocytes % 7.4 Eosinophils % 2.5 Basophils % 1.1 Nucleated Red Blood Cells % 0.0 Neutrophils # 6.6 Lymphocytes # 1.2 Monocytes # 0.7 Eosinophils # 0.2 Basophils # 0.1 Nucleated Red Blood Cells # 0.0 Sodium Level 136 Potassium Level 4.7 Chloride Level 104 Carbon Dioxide Level 26 Anion Gap 11 Blood Urea Nitrogen 31 H Creatinine 3.12 H Glucose Level 92 Calcium Level 8.1 L Random Vancomycin Level 13.5 Medications Medications Current Medications Ondansetron HCl (Zofran Inj) 4 mg Q6H PRN IV NAUSEA AND/OR VOMITING; Start at 18:30 Acetaminophen (Tylenol Tab) 650 mg Q6H PRN PO PAIN LEVEL 1-3 OR FEVER; Start at 18:30 Acetaminophen/ Hydrocodone Bitart ([place] (5/325)) 1 tab Q6H PRN PO MODERATE PAIN LEVEL 4-6; Start 04/21/17 at 18:30 Morphine Sulfate (morphine) 2 mg Q4H PRN IV SEVERE PAIN LEVEL 7-10; Start 04/21 at 18:30 Docusate Sodium (Colace) 100 mg Q12H PRN PO CONSTIPATION; Start 04/21/17 at 18: 30 Magnesium Hydroxide (Milk Of Mag) 30 ml DAILY PRN PO CONSTIPATION; Start at 18:30 Sodium Biphosphate/ Sodium Phosphate (Fleet Enema) 133 ml DAILY PRN [place] CONSTIPATION; Start 04/21/17 at 18:30 Heparin Sodium (Porcine) (Heparin (5000 Units/0.5 ml)) 5,000 unit Q12 SC Last administered on 04/27/17 08:54; Admin Dose 5,000 UNIT; Start 04/21/17 at 21:00 Nitroglycerin (Nitroglycerin (Sl Tab) 0.4 Mg) 1 tab Q5M PRN SL ANGINA; Start at 18:30 Allopurinol (Zyloprim) 300 mg DAILY PO Last administered on 04/27/17 08:44; Admin Dose 300 MG; Start 04/22/17 at 09:00 Aspirin (Halfprin) 81 mg DAILY PO Last administered on 04/27/17 08:44; Admin Dose 81 MG; Start 04/22/17 at 09:00 Valsartan (Diovan) 160 mg DAILY PO Last administered on 04/24/17 08:42; Admin Dose 160 MG; Start 04/22/17 at 09:00 Atorvastatin Calcium (Lipitor) 10 mg DAILY@21 PO Last administered on 20:23; Admin Dose 10 MG; Start 04/21/17 at 22:00 Metoprolol Tartrate (Lopressor) 12.5 mg BID PO Last administered on 04/26/17 20:22; Admin Dose 12.5 MG; Start 04/22/17 at 21:00 Loperamide HCl 2 mg 2 mg QID PRN PO DIARRHEA Last administered on 04/26/17 17: 50; Admin Dose 2 MG; Start 04/24/17 at 12:00 Ceftriaxone Sodium (Rocephin) 50 ml @ 100 mls/hr Q24H IVPB Last administered on 04/26/17 13:47; Admin Dose 100 MLS/HR; Start 04/25/17 at 13:30 Levofloxacin (Levaquin) 500 mg Q48H PO Last administered on 04/25/17 14:10; Admin Dose 500 MG; Start 04/25/17 at 12:30 Lactobacillus Acidophilus 1 each 1 each BID PO Last administered on 04/27/17 08:44; Admin Dose 1 EACH; Start 04/25/17 at 21:00 Vancomycin HCl (Vancocin) 250 ml @ 125 mls/hr 13 IVPB ; Start 04/27/17 at 13:00 ; Stop 04/27/17 at 20:00 MADELYN MIRANDA MD Apr 27, 2017 11:40
--- NOTE | 2017-04-27 12:03 | CONS ---
Date/Time of Note Date/Time of Note DATE: 04/27/17 TIME: 12:02 Assessment/Plan Assessment/Plan Chief Complaint/Hosp Course SUBJECTIVE DATA: Patient is alert, completing hemodialysis, feels good no fevers WBC 8.8 H&H 9.8 and 31 platelets 255 INDWELLINGS: Right femoral PermCath. ANTIMICROBIALS: Patient is on IV vancomycin and Levaquin. PHYSICAL EXAMINATION: GENERAL: This is a well-developed, wasted, elderly man, who is alert, in no distress. HEENT: Head atraumatic, normocephalic. Sclerae anicteric. Buccal mucosa dry. NECK: Supple. CHEST: Rise symmetrical. Breath sounds clear. HEART: S1, S2. ABDOMEN: Soft, bowel sounds present. EXTREMITIES: Without cyanosis. ASSESSMENT: 1. Thoracolumbar discitis with osteomyelitis, status post 6 to 8 weeks of antibiotics, the last dose was on April 07 as per discussion with Dr. Juan Avalos, who was following the patient at the facility. The patient is being seen by neurosurgery. 2. End-stage renal disease, hemodialysis dependent. 3. Hypertension. 4. Atrial fibrillation. 5. History of prostate cancer. 6. Allergy to penicillin. PLAN: The patient is clinically and hemodynamically stable. He is being seen by Dr. Vazquez in ortho consultation. There is no epidural abscess or compressive stenosis from infection per his note and his recommendation is bracing and medical treatment with antibiotics. Pt to be dc on Vanco and PO Levaquin for 6 weeks to f/u at [facility] for further rec-s and treatments DW staff Problems: Consultation Date/Type/Reason Admit Date/Time Apr 22, 2017 at 14:24 Initial Consult Date 04/21/17 Type of Consultation: id Referring Provider: HAVEN SANDOVAL Exam/Review of Systems Vital Signs Vitals Vital Signs Date Time Temp Pulse Resp B/P Pulse Ox O2 Delivery O2 Flow Rate FiO2 04/27/17 10:30 81 04/27/17 10:30 18 04/27/17 07:00 98.6 131/66 100 04/25/17 22:25 21 Intake and Output 04/26/17 04/26/17 04/27/17 14:59 22:59 06:59 Intake Total 50 ml 400 ml Output Total 500 ml Balance 50 ml -100 ml Results Result Diagram: 04/27/1720 04/27/17519 Results 24 hrs Laboratory Tests Test 04/27/17 05:20 White Blood Count 8.8 # Red Blood Count 3.51 L Hemoglobin 9.8 L Hematocrit 31.0 L Mean Corpuscular Volume 88.3 Mean Corpuscular Hemoglobin 27.9 L Mean Corpuscular Hemoglobin Concent 31.6 L Red Cell Distribution Width 15.8 H Platelet Count 255 Mean Platelet Volume 9.4 Neutrophils % 75.1 Lymphocytes % 13.4 L Monocytes % 7.4 Eosinophils % 2.5 Basophils % 1.1 Nucleated Red Blood Cells % 0.0 Neutrophils # 6.6 Lymphocytes # 1.2 Monocytes # 0.7 Eosinophils # 0.2 Basophils # 0.1 Nucleated Red Blood Cells # 0.0 Sodium Level 136 Potassium Level 4.7 Chloride Level 104 Carbon Dioxide Level 26 Anion Gap 11 Blood Urea Nitrogen 31 H Creatinine 3.12 H Glucose Level 92 Calcium Level 8.1 L Random Vancomycin Level 13.5 Medications Medications Current Medications Ondansetron HCl (Zofran Inj) 4 mg Q6H PRN IV NAUSEA AND/OR VOMITING; Start at 18:30 Acetaminophen (Tylenol Tab) 650 mg Q6H PRN PO PAIN LEVEL 1-3 OR FEVER; Start at 18:30 Acetaminophen/ Hydrocodone Bitart ([place] (5/325)) 1 tab Q6H PRN PO MODERATE PAIN LEVEL 4-6; Start 04/21/17 at 18:30 Morphine Sulfate (morphine) 2 mg Q4H PRN IV SEVERE PAIN LEVEL 7-10; Start 04/21 at 18:30 Docusate Sodium (Colace) 100 mg Q12H PRN PO CONSTIPATION; Start 04/21/17 at 18: 30 Magnesium Hydroxide (Milk Of Mag) 30 ml DAILY PRN PO CONSTIPATION; Start at 18:30 Sodium Biphosphate/ Sodium Phosphate (Fleet Enema) [address] CONSTIPATION; Start 04/21/17 at 18:30 Heparin Sodium (Porcine) (Heparin (5000 Units/0.5 ml)) 5,000 unit Q12 SC Last administered on 04/27/17t 08:54; Admin Dose 5,000 UNIT; Start 04/21/17 at 21:00 Nitroglycerin (Nitroglycerin (Sl Tab) 0.4 Mg) 1 tab Q5M PRN SL ANGINA; Start at 18:30 Allopurinol (Zyloprim) 300 mg DAILY PO Last administered on 04/27/17 08:44; Admin Dose 300 MG; Start 04/22/17 at 09:00 Aspirin (Halfprin) 81 mg DAILY PO Last administered on 04/27/17 08:44; Admin Dose 81 MG; Start 04/22/17 at 09:00 Valsartan (Diovan) 160 mg DAILY PO Last administered on 04/24/17 08:42; Admin Dose 160 MG; Start 04/22/17 at 09:00 Atorvastatin Calcium (Lipitor) 10 mg DAILY@21 PO Last administered on 20:23; Admin Dose 10 MG; Start 04/21/17 at 22:00 Metoprolol Tartrate (Lopressor) 12.5 mg BID PO Last administered on 04/26/17 20:22; Admin Dose 12.5 MG; Start 04/22/17 at 21:00 Loperamide HCl 2 mg 2 mg QID PRN PO DIARRHEA Last administered on 04/26/17 17: 50; Admin Dose 2 MG; Start 04/24/17 at 12:00 Ceftriaxone Sodium (Rocephin) 50 ml @ 100 mls/hr Q24H IVPB Last administered on 04/26/17 13:47; Admin Dose 100 MLS/HR; Start 04/25/17 at 13:30 Levofloxacin (Levaquin) 500 mg Q48H PO Last administered on 04/25/17 14:10; Admin Dose 500 MG; Start 04/25/17 at 12:30 Lactobacillus Acidophilus 1 each 1 each BID PO Last administered on 04/27/17 08:44; Admin Dose 1 EACH; Start 04/25/17 at 21:00 Vancomycin HCl (Vancocin) 250 ml @ 125 mls/hr 13 IVPB ; Start 04/27/17 at 13:00 ; Stop 04/27/17 at 20:00 CHERRIE JAUREGUI NP Apr 27, 2017 12:03
[2017-04-27] MEDS: LEVOFLOXACIN 500 MG TAB PO SCH (12:31)
[2017-04-27] MEDS ORDERED: VANCOMYCIN 1 GM in NS 250 ML IVPB SCH (13:00)
[2017-04-27] MEDS: CEFTRIAXONE 2 GM/50 ML (PMX) 50 ML IVPB SCH (13:30)
[2017-04-27] MEDS: LOPERAMIDE 2 MG CAP PO PRN (14:21)
== END 2017-04-27 16:02 | disposition home health service (06) | DRG 314 ==
LOC: E/R 10:42 → MS1 18:54 → OBSVTOIN 04-22 14:24
PROVIDERS: ADMIT Hospitalist; ATTEND Hospitalist
PROC: 0J2WXYZ Change Other Device in Lower Extremity Subcutaneous Tissue and Fascia, External Approach (ICD-10-PCS; principal; 2017-04-22)
PROC: 5A1D60Z (ICD-10-PCS; 2017-04-23)
DX: T82.42XA Displacement of vascular dialysis catheter, initial encounter (principal); N18.6 End stage renal disease; I12.0 Hypertensive chronic kidney disease with stage 5 chronic kidney disease or end stage renal disease; M46.25 Osteomyelitis of vertebra, thoracolumbar region; E87.1 Hypo-osmolality and hyponatremia; M84.48XA Pathological fracture, other site, initial encounter for fracture; Z99.2 Dependence on renal dialysis; M46.45 Discitis, unspecified, thoracolumbar region
CPT/HCPCS: 36561; 72146; 72148; 76942; 80048; 80061; 80202; 83036; 83735; 84100; 84439; 84443; 85025; 85610; 85651; 85730; 86140; 87040; 87081; 90935; 97161; C1750; G0378; J1644; J1956; J2997; J3370; J7040; J7050; L0462

== ENCOUNTER 2017-05-17 11:36 | Emergency (ER) | payer MEDICARE, OTHER ==
[~2017-05-17] VITALS: Ht 157.5 cm; Wt 62.0 kg
[~2017-05-17 11:36] MED LIST changes: -AZIT250T94 PO; +LEVO500T72 PO; -NAPR220C2 PO; +vancomycin IV
[2017-05-17 11:39] VITALS: Ht 157.5 cm; Wt 62.0 kg
--- NOTE | 2017-05-17 12:15 | ERA ---
ER Documentation Chief Complaint Date/Time DATE: 05/17/17 TIME: 12:14 Chief Complaint dyalisis cath not working HPI The patient is a 71-year-old male, presenting to the ER because of malfunction left femoral hemodialysis catheter. It was placed in April [address] De Anda He was sent to the ER from dialysis center. He normally had dialysis on Tuesday and Tuesday. He denies headache, neck pain, chest pain, dyspnea, abdominal pain, vomiting, dysuria, diarrhea. He smoked marijuana, history of IV drug abuse Past medical history: Atrial fibrillation, hypertension, history of vertebral osteomyelitis and discitis, dyslipidemia, gout Past surgical history: Prostatectomy, kyphoplasty, left knee, appendectomy ROS All systems reviewed and are negative except as per history of present illness. Medications Home Meds Active Scripts Levofloxacin* (Levaquin*) 500 Mg Tablet, 500 MG PO Q48H for 30 Days, #15 TAB Prov:NETTA SALOMON MD 04/27/17 Reported Medications Metoprolol Tartrate* (Lopressor*) 25 Mg Tab, 25 MG PO BID, #60 TAB 12/10/16 Valsartan* (Diovan*) 160 Mg Tablet, 160 MG PO BID, TAB 12/10/16 Aspirin (Aspirin) 81 Mg Tablet.dr, 81 MG PO DAILY 11/13/13 Simvastatin (Simvastatin) 20 Mg Tablet, 20 MG PO HS 11/13/13 Allopurinol* (Zyloprim*) 300 Mg Tablet, 300 MG PO DAILY 11/13/13 Discontinued Scripts [vancomycin] No Conflict Check, IV WITH DIALYSIS for 42 Days Prov:NETTA SALOMON MD 04/27/17 Allergies Allergies: Coded Allergies: Penicillins (Verified Allergy, Unknown, DIZZY, DIAPHORETIC AFTER LARGE DOSE AT AGE 19, 12/12/16) adhesive (Verified Allergy, Unknown, 12/10/16) latex (Verified Allergy, Unknown, 12/10/16) PMhx/Soc History of Surgery: Yes (RIGHT HIP SX,PROSTATECTOMY,KYPHOPLASTY,LEFT KNEE SX, APPY,TONSILLECTOMY) Anesthesia Reaction: No Hx Neurological Disorder: No Hx Respiratory Disorders: No Hx Cardiac Disorders: Yes (AFIB, HTN ) Hx Psychiatric Problems: No Hx Miscellaneous Medical Probl: Yes (see H&P) Hx Alcohol Use: Yes Hx Substance Use: Yes (MARIJUANA AND IV DRUG USE) Hx Tobacco Use: No (QUIT 12 YEARS AGO) Physical Exam Vitals Vital Signs Date Time Temp Pulse Resp B/P Pulse Ox O2 Delivery O2 Flow Rate FiO2 05/17/17 17:14 78 18 140/61 99 Room Air 05/17/17 13:38 98.6 77 18 138/68 99 Room Air 05/17/17 11:39 98.1 60 18 138/59 99 Physical Exam Const: No acute distress. Head: Atraumatic. Eyes: Normal Conjunctiva. ENT: Normal External Ears, Nose and Mouth. Neck: Full range of motion. No meningismus. Resp: Clear to auscultation bilaterally. Cardio: Irregularly irregular Abd: Soft, non distended, normal bowel sounds, non tender. Skin: No petechiae or rashes. Back: No midline or flank tenderness. Ext: No cyanosis, or edema.Right femoral hemodialysis catheter Neur: Awake and alert. No focal deficit Psych: Normal Mood and Affect. Result Diagram: 05/17/17 1235 05/17/17 1235 Results 24 hrs Laboratory Tests Test 05/17/17 12:35 White Blood Count 9.310^3/ul Red Blood Count 3.7810^6/ul Hemoglobin 10.7g/dl Hematocrit 35.5% Mean Corpuscular Volume 93.9fl Mean Corpuscular Hemoglobin 28.3pg Mean Corpuscular Hemoglobin Concent 30.1g/dl Red Cell Distribution Width 16.9% Platelet Count 01625^3/UL Mean Platelet Volume 10.0fl Neutrophils % 83.8% Lymphocytes % 7.6% Monocytes % 5.4% Eosinophils % 2.1% Basophils % 0.6% Nucleated Red Blood Cells % 0.0/100WBC Neutrophils # 7.810^3/ul Lymphocytes # 0.710^3/ul Monocytes # 0.510^3/ul Eosinophils # 0.210^3/ul Basophils # 0.110^3/ul Nucleated Red Blood Cells # 0.010^3/ul Prothrombin Time 13.5Sec Prothrombin Time Ratio 1.1 INR International Normalized Ratio 1.03 Activated Partial Thromboplast Time 34.7Sec Sodium Level 135mmol/L Potassium Level 4.5mmol/L Chloride Level 101mmol/L Carbon Dioxide Level 30mmol/L Anion Gap 9 Blood Urea Nitrogen 22mg/dl Creatinine 3.20mg/dl Glucose Level 89mg/dl Calcium Level 8.5mg/dl Current Medications Medications (Trade) Dose Ordered Sig/Julianne Route PRN Reason Start Time Stop Time Status Last Admin Dose Admin Lidocaine (Xylocaine 1% (Mdv) 20 ml) 20 ml STK-MED ONCE .ROUTE 05/17/17 15:19 05/17/17 15:20 DC Heparin Sodium (Porcine) 98952 unit 10,000 unit STK-MED ONCE .ROUTE 05/17/17 15:19 05/17/17 15:20 DC Sodium Chloride (NS) 500 ml @ ud STK-MED ONCE .ROUTE 05/17/17 15:19 05/17/17 15:20 DC Procedures/MDM EKG: Read by emergency physician Rate/Rhythm: Normal Sinus Rhythm 70 beats/min QRS, ST, T-waves: No ST elevation, no T inversion, Low voltage Impression: Abnormal EKG [place] [id number] Radiology Main Line: [phone] DIAGNOSTIC IMAGING REPORT Patient: ADAM SHORT : 1945 Age: 71 Sex: M MR #: [id number] DOS: 05/17/17 1226 Ordering MD: ODETTE BRANDON MD Location: E/R Room/Bed: PROCEDURE: XR Chest. CLINICAL INDICATION: Chest pain TECHNIQUE: Single portable view of the chest was obtained COMPARISON: March 10, 2017 FINDINGS: The trachea is midline. The cardiac silhouette and pulmonary vascularity are within normal limits. There is eventration of right hemidiaphragm. The lungs otherwise clear.. The costophrenic angles are sharp. IMPRESSION: 1. No evidence of acute cardiopulmonary disease. RPTAT: AAPP Physician Robbie Date Time Electronically viewed and signed by Physician Robbie on 05/17/2017 13:36 JL/ CC: ODETTE BRANDON MD MEDICAL MAKING DECISION: The patient is a 71-year-old male, presenting with malfunction right femoral hemodialysis catheter. He was evaluated by the radiologist Dr. De Anda in the ER who replaced the catheter for him Departure Diagnosis: Primary Impression: S/P hemodialysis catheter insertion Condition: Good Comments Consultation: I discussed the patient with his account liaison hospice Dr. Miguel Avalos, who was made aware of labs, the treatment, the replacement of the catheter. He is recommending discharge the patient I discussed the findings with the patient. I advised the patient to follow-up with the primary physician in about 1-2 days, sooner if needed and return if any concern. ODETTE BRANDON MD May 17, 2017 12:15
[2017-05-17 12:51] LABS: BASOPHIL # 0.1 10^3/ul (0.0-0.1); BASOPHILS % 0.6 % (0.0-2.0); EOSINOPHILS # 0.2 10^3/ul (0.0-0.5); EOSINOPHILS % 2.1 % (0.0-7.0); HEMATOCRIT 35.5 % (42.0-52.0); HEMOGLOBIN 10.7 g/dl (14.0-18.0); LYMPHOCYTES # 0.7 10^3/ul (0.8-2.9); LYMPHOCYTES % 7.6 % (15.0-51.0); MEAN CORPUSCULAR HEMOGLOBIN 28.3 pg (29.0-33.0); MEAN CORPUSCULAR HGB CONC 30.1 g/dl (32.0-37.0); MEAN CORPUSCULAR VOLUME 93.9 fl (82.0-101.0); MONOCYTE # 0.5 10^3/ul (0.3-0.9); MONOCYTES % 5.4 % (0.0-11.0); NEUTROPHIL # 7.8 10^3/ul (1.6-7.5); NEUTROPHILS % 83.8 % (39.0-77.0); PLATELET COUNT 152 10^3/UL (140-415); RED BLOOD COUNT 3.78 10^6/ul (4.70-6.10); RED CELL DISTRIBUTION WIDTH 16.9 % (11.5-14.5); WHITE BLOOD COUNT 9.3 10^3/ul (4.8-10.8)
[2017-05-17 13:07] LABS: INR 1.03; PARTIAL THROMBOPLASTIN TIME 34.7 Sec (25.0-35.0); PROTIME 13.5 Sec (12.2-14.2); PT RATIO 1.1
[2017-05-17 13:08] LABS: CALCIUM 8.5 mg/dl (8.4-10.2); CREATININE 3.2 mg/dl (0.61-1.24); POTASSIUM 4.5 mmol/L (3.5-5.1)
--- NOTE | 2017-05-17 13:36 | RADRPT ---
PROCEDURE: XR Chest. CLINICAL INDICATION: Chest pain TECHNIQUE: Single portable view of the chest was obtained COMPARISON: March 10, 2017 FINDINGS: The trachea is midline. The cardiac silhouette and pulmonary vascularity are within normal limits. T here is eventration of right hemidiaphragm. The lungs otherwise clear.. The costophrenic angles are sharp. IMPRESSION: 1. No evidence of acute cardiopulmonary disease. RPTAT: AAPP Physician Robbie Date Time Electronically viewed and signed by Physician Robbie on 05/17/2017 13:36 JL/
[2017-05-17 13:38] VITALS: TEMP 98.6
[2017-05-17] MEDS ORDERED: LIDOCAINE 1% (MDV) 20 ML INJ ONE (15:19)
[2017-05-17] MEDS ORDERED: SOD CHLORIDE 0.9% 500 ML ONE (15:19)
[2017-05-17] MEDS ORDERED: HEPARIN 1000 UNITS/ML 10 ML INJ ONE (15:19)
[2017-05-17 17:14] VITALS: BP 140/61; PULSE 78; RESP 18
--- NOTE | 2017-05-17 18:03 | RADRPT ---
PROCEDURE: PLACEMENT RIGHT COMMON FEMORAL VEIN TUNNELED DIALYSIS CATHETER. CLINICAL INDICATION: Renal failure. The existing catheter is not functioning. TECHNIQUE: Informed consent was obtained. Risks including bleeding and infection were explained to the patient. The patient understood and was willing to proceed. A procedural pause was performed. The patient's name, date of , and procedure to be performed were verified. The central line was inserted with all elements of maximal sterile barrier technique. All of the following were used: head covering, f acial mask, sterile gown, sterile gloves, a large sterile sheet, hand hygiene, and 2% chlorhexidine for cutaneous antisepsis. The right groin and right the upper thigh were prepped and draped in usu al sterile fashion. Following the local injection of Xylocaine, a 0.035 inch Amplatz guidewire was advanced through the existing tunneled dialysis catheter in the right common femoral vein. The existing catheter was removed over the guide wire and a peel-away sheath was advanced over the g uidewire. A new 14.5-[place] 55 cm long Palindrome dialysis catheter was advanced over the guidewire and the tip was confirmed and the right atrium. Peel-away sheath and guidewire. The catheter was se cured to the skin with 2-0 silk and each of the ports of the catheter were flushed with 3100 units o f heparin in 3.1 ml. The site was dressed. The patient tolerated the procedure well. COMPARISON: None. FINDINGS: Final radiographic images demonstrate the tip of the catheter in the right atrium. A total of 0.2 mi nutes of fluoroscopy time was used. 8 images of the abdomen were obtained with image intensifier. IMPRESSION: 1. Satisfactory placement of tunneled right femoral dialysis catheter. RPTAT: QQ .Trung De Anda MD, Date Time Electronically viewed and signed by .Trung De Anda MD, on 05/17/2017 18:03 .R/
== END 2017-05-17 17:18 | disposition home or self-care (01) ==
LOC: E/R 11:36
DX: T82.49XA Other complication of vascular dialysis catheter, initial encounter (principal); I10 Essential (primary) hypertension; R07.9 Chest pain, unspecified; Y82.8 Other medical devices associated with adverse incidents; Z79.82 Long term (current) use of aspirin; Z87.891 Personal history of nicotine dependence
CPT/HCPCS: 36415; 36558; 71010; 80048; 85025; 85610; 85730; 93005; 99285; C1750; C1769; J1644; J7040

== ENCOUNTER 2018-06-01 14:24 | Inpatient (IN) | END 2018-06-06 08:15 | disposition left against medical advice (07) | DRG 393 ==

== ENCOUNTER 2018-11-10 09:45 | Observation (INO) | payer MEDICARE, OTHER ==
[~2018-11-10] VITALS: Ht 162.6 cm; Wt 73.3 kg
[~2018-11-10 09:45] MED LIST changes: -ALLO300T46 PO; +ALLO300T84 PO; +AMLO-147 PO; +ASPI-1044 PO; -ASPI-664 PO; +CALC667C PO; -LEVO500T72 PO; -VALS160T20 PO; -vancomycin IV
--- NOTE | 2018-11-10 10:23 | ERD ---
ER Documentation Chief Complaint Chief Complaint admission for rectal bleeding PMD miguel Avalos HPI Very pleasant 73-year-old gentleman history of end-stage renal disease on dialysis who presents the emergency room with rectal bleeding for approximately 24 hours with bright red blood and clots. 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 He saw his GI doctor yesterday who performed rectal examination and recommended he come to the emergency room for admission. No significant bleeding this morning. He denies hematemesis, NSAID abuse or alcohol abuse. ROS All systems reviewed and are negative except as per history of present illness. Medications Home Meds Reported Medications Colchicine* (Colcrys*) 0.6 Mg Tablet, 0.6 MG PO DAILY, TAB 11/10/18 Docusate Sodium* (Colace*) 100 Mg Capsule, 100 MG PO BID, #60 CAP 11/10/18 Simvastatin* (Zocor*) 20 Mg Tablet, 20 MG PO QHS, #30 TAB 11/10/18 Amlodipine Besylate* (Norvasc*) 5 Mg Tablet, 5 MG PO BID, TAB 11/10/18 Metoprolol Tartrate* (Lopressor*) 50 Mg Tab, 50 MG PO BID, #60 TAB 11/10/18 Allopurinol* (Allopurinol*) 300 Mg Tablet, 300 MG PO DAILY, TAB 11/10/18 Calcium Acetate* (Calcium Acetate*) 667 Mg Capsule, 667 MG PO WITH MEALS, #30 CAP 11/10/18 Discontinued Reported Medications Calcium Acetate* (Calcium Acetate*) 667 Mg Capsule, 667 MG PO WITH MEALS, #30 CAP 06/01/18 Amlodipine Besylate* (Amlodipine Besylate*) 10 Mg Tablet, 10 MG PO DAILY, #30 TAB 06/01/18 Metoprolol Tartrate* (Lopressor*) 25 Mg Tab, 25 MG PO BID, #60 TAB 12/10/16 Aspirin Delayed Release (Aspirin Delayed Release) 81 Mg Tablet.dr, 81 MG PO DAILY 11/13/13 Simvastatin (Simvastatin) 20 Mg Tablet, 20 MG PO HS 11/13/13 Allopurinol* (Zyloprim*) 300 Mg Tablet, 300 MG PO DAILY 11/13/13 Allergies Allergies: Coded Allergies: Penicillins (Verified Allergy, Unknown, DIZZY, DIAPHORETIC AFTER LARGE DOSE AT AGE 19, 11/10/18) adhesive (Verified Allergy, Unknown, 11/10/18) latex (Verified Allergy, Unknown, 11/10/18) PMhx/Soc History of Surgery: Yes (RIGHT HIP SX , PROSTATECTOMY , KYPHOPLASTY , LEFT KNEE SX , APPY , TONSILL) Anesthesia Reaction: No Hx Neurological Disorder: No Hx Respiratory Disorders: No Hx Cardiac Disorders: Yes (HTN, AFIB) Hx Psychiatric Problems: No Hx Miscellaneous Medical Probl: No Hx Alcohol Use: No Hx Substance Use: No Hx Tobacco Use: No Smoking Status: Never smoker FmHx Family History: No diabetes Physical Exam Vitals Vital Signs Date Temp Pulse Resp B/P (MAP) Pulse Ox O2 O2 Flow FiO2 Time Delivery Rate 11/10/18 98.1 71 18 134/63 97 09:46 (86) Physical Exam General: Well developed, well nourished, no acute distress Head: Normocephalic, atraumatic. Eyes: EOM intact, conjunctival pallor ENT: Moist mucous membranes Neck: Full ROM Respiratory: No respiratory distress Cardiovascular: Well perfused distally Abdominal: Nondistended : Deferred per patient request MSK: No edema, no unilateral swelling, 5/5 strength Neurologic: Alert and oriented, moving all extremities, normal speech, steady gait Skin: No rash Psych: Normal mood Result Diagram: 11/10/18 1033 11/10/18 1033 Results 24 hrs Laboratory Tests Test 11/10/18 10:33 White Blood Count 7.9 10^3/ul Red Blood Count 2.83 10^6/ul Hemoglobin 9.0 g/dl Hematocrit 28.2 % Mean Corpuscular Volume 99.6 fl Mean Corpuscular Hemoglobin 31.8 pg Mean Corpuscular Hemoglobin Concent 31.9 g/dl Red Cell Distribution Width 15.9 % Platelet Count 172 10^3/UL Mean Platelet Volume 10.6 fl Immature Granulocytes % 0.400 % Neutrophils % 72.3 % Lymphocytes % 10.6 % Monocytes % 8.5 % Eosinophils % 7.1 % Basophils % 1.1 % Nucleated Red Blood Cells % 0.0 /100WBC Immature Granulocytes # 0.030 10^3/ul Neutrophils # 5.7 10^3/ul Lymphocytes # 0.8 10^3/ul Monocytes # 0.7 10^3/ul Eosinophils # 0.6 10^3/ul Basophils # 0.1 10^3/ul Nucleated Red Blood Cells # 0.0 10^3/ul Prothrombin Time 13.2 Sec Prothrombin Time Ratio 1.0 INR International Normalized Ratio 0.99 Activated Partial Thromboplast Time 32.4 Sec Sodium Level 137 mmol/L Potassium Level 4.1 mmol/L Chloride Level 92 mmol/L Carbon Dioxide Level 36 mmol/L Anion Gap 9 Blood Urea Nitrogen 47 mg/dl Creatinine 3.52 mg/dl Est Glomerular Filtrat Rate mL/min mL/min Glucose Level 90 mg/dl Calcium Level 9.8 mg/dl Procedures/MDM LAB INTERPRETATION: I reviewed the laboratory testing and it shows stable hemoglobin MEDICAL DECISION MAKING: The patient presents with bright red blood per rectum with prior history of rectal bleeding. The patient does have potential serious etiology with a histo ry of AV malformation. The patient had a rectal examination by machine cleaner yesterday and was told to come to the emergency room. He would prefer not to have a rectal exam currently but denies any active bleeding. No signs or symptoms concerning for brisk upper hemorrhage. The patient is h emodynamically stable. ER COURSE: * Patient without hyperkalemia. Hemoglobin is stable. No indication for transfusion. Appropriate consultations have been made. CONSULTATION: Gastroenterology: Dr. Hernandez notified of patient's arrival Nephrology: Dr. Miguel Avalos will consult on the case DISPOSITION PLAN: Accepting care team and consultations: I discussed the current laboratory data, diagnostic imaging and emergency care provided. Admitting team: Dr. Polanco Admitting team indication: Insurance directed Departure Diagnosis: Primary Impression: Rectal hemorrhage Additional Impressions: End stage renal disease on dialysis Anemia Anemia type: unspecified type Qualified Codes: D64.9 - Anemia, unspecified Condition: Stable NICO VILLANUEVA MD Nov 10, 2018 10:23
[2018-11-10] MEDS ORDERED: CALC667C PO (11:17)
[2018-11-10] MEDS ORDERED: ALLO300T2 PO (11:18)
[2018-11-10] MEDS ORDERED: METO-429 PO (11:18)
[2018-11-10] MEDS ORDERED: SIMV20TA PO (11:19)
[2018-11-10] MEDS ORDERED: AMLO5TAB4 PO (11:19)
[2018-11-10] MEDS ORDERED: DOCU-144 PO (11:19)
[2018-11-10] MEDS ORDERED: COLC0.6T6 PO (11:20)
[2018-11-10] MEDS ORDERED: ACETAMINOPHEN 325 MG TAB PO PRN ×2 (11:30→15:00)
[2018-11-10] MEDS ORDERED: ONDANSETRON 4 MG INJ IV PRN (11:30)
[2018-11-10 13:47] VITALS: BP 120/58; PULSE 59; RESP 18
[2018-11-10 14:07] VITALS: Ht 162.6 cm; Wt 73.3 kg
[2018-11-10] MEDS ORDERED: SODIUM CHLORIDE 0.9% 1L BAG IV PRN (14:30)
[2018-11-10] MEDS ORDERED: COLCHICINE 0.6 MG TAB PO PRN (14:30)
[2018-11-10] MEDS ORDERED: ALBUMIN HUMAN 25% 100 ML IV PRN (14:30)
--- NOTE | 2018-11-10 14:30 | CONS ---
Assessment/Plan Assessment/Plan Assessment/Plan (Daily) 1. Rectal bleeding - Lower GI bleeding 2. ESRD on HD TTS 4. Mild Hyperkalemia 4. H/o HTN 5. H/O Previous OM of LS Spine Plan : Seen IN ED, plan for HD tomorrow first in AM BP controlled GI consult Dr. Hernandez to see pt will follow up Consultation Date/Type/Reason Admit Date/Time Nov 10, 2018 at 11:25 Date of Consultation: Nov 11, 2018 Type of Consult NEPHROLOGY Reason for Consultation ESRD on HD with GI bleeding Requesting Provider: AARTI MCDANIEL MD Date/Time of Note DATE: 11/10/18 TIME: 14:30 Hx of Present Illness 73-year-old gentleman history of end-stage renal disease on dialysis who presents the emergency room with rectal bleeding for approximately 24 hours with bright red blood and clots. 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 He saw his GI doctor yesterday who performed r ectal examination and recommended he come to the emergency room for admission. No significant bleeding this morning. He denies hematemesis, NSAID abuse or alcohol abuse. pt is evaluated by GI for possible GI bleeding Renal has been consulted for [facility] HD, Plan for HD tomorrow Constitutional: no complaints Eyes: no complaints ENT: congestion Respiratory: pleuritic pain, shortness of breath Cardiovascular: no complaints Gastrointestinal: no complaints Genitourinary: no complaints Musculoskeletal: no complaints Skin: no complaints Neurologic: no complaints Endocrine: no complaints Lymphatic: no complaints Psychological: no complaints Immunologic: no complaints Past Medical History Medical History: high cholesterol, hypertension, other (ESRD on HD ) Home Meds Reported Medications Colchicine* (Colcrys*) 0.6 Mg Tablet, 0.6 MG PO DAILY, TAB 11/10/18 Docusate Sodium* (Colace*) 100 Mg Capsule, 100 MG PO BID, #60 CAP 11/10/18 Simvastatin* (Zocor*) 20 Mg Tablet, 20 MG PO QHS, #30 TAB 11/10/18 Amlodipine Besylate* (Norvasc*) 5 Mg Tablet, 5 MG PO BID, TAB 11/10/18 Metoprolol Tartrate* (Lopressor*) 50 Mg Tab, 50 MG PO BID, #60 TAB 11/10/18 Allopurinol* (Allopurinol*) 300 Mg Tablet, 300 MG PO DAILY, TAB 11/10/18 Calcium Acetate* (Calcium Acetate*) 667 Mg Capsule, 667 MG PO WITH MEALS, #30 CAP 11/10/18 Discontinued Reported Medications Calcium Acetate* (Calcium Acetate*) 667 Mg Capsule, 667 MG PO WITH MEALS, #30 CAP 06/01/18 Amlodipine Besylate* (Amlodipine Besylate*) 10 Mg Tablet, 10 MG PO DAILY, #30 TAB 06/01/18 Metoprolol Tartrate* (Lopressor*) 25 Mg Tab, 25 MG PO BID, #60 TAB 12/10/16 Aspirin Delayed Release (Aspirin Delayed Release) 81 Mg Tablet.dr, 81 MG PO DAILY 11/13/13 Simvastatin (Simvastatin) 20 Mg Tablet, 20 MG PO HS 11/13/13 Allopurinol* (Zyloprim*) 300 Mg Tablet, 300 MG PO DAILY 11/13/13 Medications Current Medications Ondansetron HCl (Zofran Inj) 4 mg BRIDGE ORDER PRN IV NAUSEA/VOMITING; Start 11/10/18 at 11:30; Stop 11/11/18 at 11:29 Acetaminophen (Tylenol Tab) 650 mg ER BRIDGE PRN PO .MILD PAIN 1-3 OR TEMP; S tart 11/10/18 at 11:30; Stop 11/11/18 at 11:29 Allergies: Coded Allergies: Penicillins (Verified Allergy, Unknown, DIZZY, DIAPHORETIC AFTER LARGE DOSE AT AGE 19, 11/10/18) adhesive (Verified Allergy, Unknown, 11/10/18) latex (Verified Allergy, Unknown, 11/10/18) Past Surgical History Past Surgical Hx: other (AV fistula surgery ) Family History Significant Family History: no pertinent family hx Social History Alcohol Use: none Smoking Status: Smoker,current status unk Drug Use: none Exam/Review of Systems Exam Vitals Vital Signs Date Temp Pulse Resp B/P (MAP) Pulse Ox O2 O2 Flow FiO2 Time Delivery Rate 11/10/18 98.0 59 18 120/58 98 Room Air 13:47 (78) Exam Constitutional: alert, awake, no acute distress Respiratory: clear to auscultation Cardiovascular: nl pulses Gastrointestinal: soft, non-tender Musculoskeletal: nl extremities to inspection Extremities: normal pulses, LUE AVF in place Neurological: nl mental status, nl speech Skin: nl turgor Lymph: nontender Results Result Diagram: 11/10/18 1033 11/10/18 1033 Results 24hrs Laboratory Tests Test 11/10/18 10:33 White Blood Count 7.9 # Red Blood Count 2.83 L Hemoglobin 9.0 L Hematocrit 28.2 L Mean Corpuscular Volume 99.6 Mean Corpuscular Hemoglobin 31.8 Mean Corpuscular Hemoglobin Concent 31.9 L Red Cell Distribution Width 15.9 H Platelet Count 172 Mean Platelet Volume 10.6 H Immature Granulocytes % 0.400 Neutrophils % 72.3 Lymphocytes % 10.6 L Monocytes % 8.5 Eosinophils % 7.1 H Basophils % 1.1 Nucleated Red Blood Cells % 0.0 Immature Granulocytes # 0.030 Neutrophils # 5.7 Lymphocytes # 0.8 Monocytes # 0.7 Eosinophils # 0.6 H Basophils # 0.1 Nucleated Red Blood Cells # 0.0 Prothrombin Time 13.2 Prothrombin Time Ratio 1.0 INR International Normalized Ratio 0.99 Activated Partial Thromboplast Time 32.4 Sodium Level 137 Potassium Level 4.1 Chloride Level 92 L Carbon Dioxide Level 36 H Anion Gap 9 Blood Urea Nitrogen 47 H Creatinine 3.52 H Est Glomerular Filtrat Rate mL/min Glucose Level 90 Calcium Level 9.8 Medications Medication Current Medications Ondansetron HCl (Zofran Inj) 4 mg BRIDGE ORDER PRN IV NAUSEA/VOMITING; Start 11/10/18 at 11:30; Stop 11/11/18 at 11:29 Acetaminophen (Tylenol Tab) 650 mg ER BRIDGE PRN PO .MILD PAIN 1-3 OR TEMP; Start 11/10/18 at 11:30; Stop 11/11/18 at 11:29 MADELYN MIRANDA MD Nov 10, 2018 14:30
[2018-11-10] MEDS ORDERED: PEG/ELECTROLYTES 4L BTL PO STA (14:51)
--- NOTE | 2018-11-10 19:18 | HP ---
Date/Time of Note Date/Time of Note DATE: 11/10/18 TIME: 19:08 Assessment/Plan VTE Prophylaxis SCD contraindicated: other Pharmacological prophylaxis: other Pharm contraindication: other Lines/Catheters IV Catheter Type (from Nrsg): Peripheral IV Assessment/Plan Assessment/Plan -Rectal hemorrhage- none at present - Admit to tele - GI follows - am CBC - see admission orders -End stage renal disease on dialysis - Renal follows - FU am BMP -Anemia - Am CBC -Hypertension - BP stable - Afib- no acute issues at present -Will get cardiac clearance as pt has Hx afib; hold po meds pt is NPO Dw staff. Patient seen in collaboration with Dr Polanco. Result Diagram: 11/10/18 1033 11/10/18 1033 Results 24hrs Laboratory Tests Test 11/10/18 10:32 11/10/18 10:33 Hepatitis B Surface Antigen NEGATIVE Hepatitis B Surface Antibody POSITIVE H White Blood Count 7.9 # Red Blood Count 2.83 L Hemoglobin 9.0 L Hematocrit 28.2 L Mean Corpuscular Volume 99.6 Mean Corpuscular Hemoglobin 31.8 Mean Corpuscular Hemoglobin Concent 31.9 L Red Cell Distribution Width 15.9 H Platelet Count 172 Mean Platelet Volume 10.6 H Immature Granulocytes % 0.400 Neutrophils % 72.3 Lymphocytes % 10.6 L Monocytes % 8.5 Eosinophils % 7.1 H Basophils % 1.1 Nucleated Red Blood Cells % 0.0 Immature Granulocytes # 0.030 Neutrophils # 5.7 Lymphocytes # 0.8 Monocytes # 0.7 Eosinophils # 0.6 H Basophils # 0.1 Nucleated Red Blood Cells # 0.0 Prothrombin Time 13.2 Prothrombin Time Ratio 1.0 INR International Normalized Ratio 0.99 Activated Partial Thromboplast Time 32.4 Sodium Level 137 Potassium Level 4.1 Chloride Level 92 L Carbon Dioxide Level 36 H Anion Gap 9 Blood Urea Nitrogen 47 H Creatinine 3.52 H Est Glomerular Filtrat Rate mL/min Glucose Level 90 Calcium Level 9.8 HPI/ROS Admit Date/Time Admit Date/Time Nov 10, 2018 at 11:25 ROS HPI A 73-year-old male patient with past history of end-stage renal disease, on dialysis, history of rectal bleeding secondary to polyp and 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 Patient was seen by his GI doctor yesterday and recommended patient to go to the emergency room. Patient denies any lighth eadedness or dizziness, no significant bleeding this morning. He denies hematemesis, NSAID abuse or alcohol abuse. No injury/fall reported. Patient is admitted under Dr Polanco for further evaluation and management. ROS All systems reviewed and are negative except as per history of present illness. Eyes: no complaints ENT: no complaints Respiratory: no complaints Cardiovascular: no complaints Gastrointestinal: other (bloody stool) Genitourinary: no complaints Musculoskeletal: no complaints Skin: no complaints Neurologic: no complaints Endocrine: no complaints Lymphatic: no complaints Psychological: no complaints Immunologic: no complaints PMH/Family/Social Past Medical History PMhx/Soc History of Surgery: Yes (RIGHT HIP SX , PROSTATECTOMY , KYPHOPLASTY , LEFT KNEE SX , APPY , TONSILL) Anesthesia Reaction: No Hx Neurological Disorder: No Hx Respiratory Disorders: No Hx Cardiac Disorders: Yes (HTN, AFIB) Hx Psychiatric Problems: No Hx Miscellaneous Medical Probl: No Hx Alcohol Use: No Hx Substance Use: No Hx Tobacco Use: No Smoking Status: Never smoker FmHx Family History: No diabetes Medical History: hypertension Medications Current Medications Albumin Human 100 ml @ 100 mls/hr WITH DIALYSIS PRN IV SBP <90 DURING DIALYSIS; Start 11/10/18 at 14:30 Sodium Chloride (NS) -To prime the dialy... DIRECTED FOR HD PRN IV HD; Start 11/10/18 at 14:30 Amlodipine Besylate (Norvasc) 5 mg BID PO ; Start 11/10/18 at 21:00 Metoprolol Tartrate (Lopressor) 50 mg BID GTB ; Start 11/10/18 at 21:00 Atorvastatin Calcium (Lipitor) 10 mg HS PO ; Start 11/10/18 at 21:00 Colchicine (Colchicine) 0.6 mg BID PRN PO PAIN LEVEL 6-10; Start 11/10/18 at 14:30 Allopurinol (Zyloprim) 300 mg DAILY PO ; Start 11/11/18 at 09:00 Acetaminophen (Tylenol Tab) 650 mg Q6H PRN PO MILD PAIN(1-3)OR ELEVATED TEMP; Start 11/10/18 at 15:00 Coded Allergies: Penicillins (Verified Allergy, Unknown, DIZZY, DIAPHORETIC AFTER LARGE DOSE AT AGE 19, 11/10/18) adhesive (Verified Allergy, Unknown, 11/10/18) latex (Verified Allergy, Unknown, 11/10/18) Past Surgical History Past Surgical Hx: appendectomy, other (tonsillectomy) Family History Significant Family History: no pertinent family hx Social History Alcohol Use: none Smoking Status: Smoker,current status unk Drug Use: none Exam/Review of Systems Vital Signs Vitals Vital Signs Date Temp Pulse Resp B/P (MAP) Pulse Ox O2 O2 Flow FiO2 Time Delivery Rate 11/10/18 98.0 59 18 120/58 98 Room Air 13:47 (78) Exam Constitutional: alert, oriented, well developed Psych: nl mood/affect Head: atraumatic Eyes: EOMI ENMT: nl external ears & nose Neck: non-tender Respiratory: clear to auscultation Cardiovascular: nl pulses, other Gastrointestinal: soft, non-tender Musculoskeletal: nl extremities to inspection Extremities: normal pulses Neurological: nl mental status, nl speech Skin: nl turgor Lymph: nontender МАРИНА DOSHI Nov 10, 2018 19:18
[2018-11-10 20:10] VITALS: BP 158/72; PULSE 61; RESP 18
[2018-11-10] MEDS ORDERED: METOPROLOL 50 MG TAB GTB SCH (21:00)
[2018-11-10] MEDS: ATORVASTATIN 10 MG TAB PO SCH (21:11)
[2018-11-10] MEDS: AMLODIPINE 5 MG TAB PO SCH (21:11)
[2018-11-10] MEDS: METOPROLOL 50 MG TAB PO SCH (21:11)
[2018-11-11] VITALS (27 sets, daily range): BP systolic 92–156; BP diastolic 30–70; PULSE 52–69; RESP 17–63
--- NOTE | 2018-11-11 00:07 | CONS ---
DATE OF ADMISSION: 11/10/2018 DATE OF CONSULTATION: 11/10/2018 HISTORY OF PRESENT ILLNESS: The patient is a 73-year-old male with end-stage renal disease on dialys is, presented to the emergency room with rectal bleeding for last 24 hours. The patient was passing clots per rectum. No abdominal pain, no nausea, no vomiting, no chest pain, no shortness of breath. The patient had endoscopy and colonoscopy done by me. A few months ago, polyp was removed. He also had multiple AVM and diverticulosis. No nausea, no vomiting. REVIEW OF SYSTEMS: Otherwise negative. HOME MEDICATIONS: 1. He is on colchicine. 2. Norvasc. 3. Lopressor. 4. Allopurinol. 5. Amlodipine. 6. Aspirin. 7. Simvastatin. ALLERGIES: 1. PENICILLIN. 2. ADHESIVE TAPE. 3. LATEX. PAST MEDICAL HISTORY: Right hip surgery, prostatectomy, kyphoplasty, left knee surgery. Hypertensio n, atrial fibrillation, he is not on blood thinner. SOCIAL HISTORY: No alcohol. No smoking, no recreational drugs. FAMILY HISTORY: Nothing significant. PHYSICAL EXAMINATION: GENERAL: He looks good for his age. Alert, awake, not in distress. VITAL SIGNS: Stable. HEENT: Unremarkable. NECK: Supple, no thyromegaly, no lymphadenopathy. CARDIOVASCULAR: No murmur, gallop or click. LUNGS: Clear. ABDOMEN: Benign. EXTREMITIES: No edema. CENTRAL NERVOUS SYSTEM: Grossly within normal limits. LABORATORY DATA: Hematocrit is 28, platelet count is 172. INR is 1. BUN 47, creatinine is 3.52. IMPRESSION: 1. Rectal bleeding. Stool was sort of darker in color, burgundy, rule out ischemic colon, rule out AVM as a cause. Rule out diverticulosis or hemorrhoid. 2. End-stage renal disease. 3. Atrial fibrillation. 4. Anemia. 5. Hypertension. PLAN: Plan is to proceed with EGD and colonoscopy to find out the source of bleeding. In the interi m, continue PPI. The patient will be prepared with GoLYTELY tonight and we will monitor hemoglobin a nd hematocrit closely. Dictated By: RANJIT PUTNAM/NTS Conf#: [id number] DID#: [id number] CC: RANJIT CORTES MD; AARTI MCDANIEL MD; CLAUDIA SHIRLEY MD;*EndCC*
--- NOTE | 2018-11-11 08:48 | PREAC ---
Date/Time of Note Date/Time of Note DATE: 11/11/18 TIME: 08:46 Anesthesia Eval and Record Evaluation Time Pre-Procedure Interview DATE: 11/11/18 TIME: 08:46 Age 73 Sex male NPO: 8 hrs Preoperative diagnosis gi bleeding Planned procedure egd and colonoscopy Past Medical History Past Medical History: Includes Cardio: HTN, Arrythmia Renal: ESRD on dialysis Heme: Anemia Surgery & Anesthesia Issues No known issue Meds Anticoagulation: No Beta Javier within 24 hr: Yes Reported Medications Colchicine* (Colcrys*) 0.6 Mg Tablet, 0.6 MG PO DAILY, TAB 11/10/18 Docusate Sodium* (Colace*) 100 Mg Capsule, 100 MG PO BID, #60 CAP 11/10/18 Simvastatin* (Zocor*) 20 Mg Tablet, 20 MG PO QHS, #30 TAB 11/10/18 Amlodipine Besylate* (Norvasc*) 5 Mg Tablet, 5 MG PO BID, TAB 11/10/18 Metoprolol Tartrate* (Lopressor*) 50 Mg Tab, 50 MG PO BID, #60 TAB 11/10/18 Allopurinol* (Allopurinol*) 300 Mg Tablet, 300 MG PO DAILY, TAB 11/10/18 Calcium Acetate* (Calcium Acetate*) 667 Mg Capsule, 667 MG PO WITH MEALS, #30 CAP 11/10/18 Discontinued Reported Medications Calcium Acetate* (Calcium Acetate*) 667 Mg Capsule, 667 MG PO WITH MEALS, #30 CAP 06/01/18 Amlodipine Besylate* (Amlodipine Besylate*) 10 Mg Tablet, 10 MG PO DAILY, #30 TAB 06/01/18 Metoprolol Tartrate* (Lopressor*) 25 Mg Tab, 25 MG PO BID, #60 TAB 12/10/16 Aspirin Delayed Release (Aspirin Delayed Release) 81 Mg Tablet.dr, 81 MG PO DAILY 11/13/13 Simvastatin (Simvastatin) 20 Mg Tablet, 20 MG PO HS 11/13/13 Allopurinol* (Zyloprim*) 300 Mg Tablet, 300 MG PO DAILY 11/13/13 Current Medications Albumin Human 100 ml @ 100 mls/hr WITH DIALYSIS PRN IV SBP <90 DURING DIALYSIS; Start 11/10/18 at 14:30 Sodium Chloride (NS) -To prime the dialy... DIRECTED FOR HD PRN IV HD; Start 11/10/18 at 14:30 Amlodipine Besylate (Norvasc) 5 mg BID PO Last administered on 11/10/18at 21:11; Admin Dose 5 MG; Start 11/10/18 at 21:00 Atorvastatin Calcium (Lipitor) 10 mg HS PO Last administered on 11/10/18at 21:11; Admin Dose 10 MG; Start 11/10/18 at 21:00 Colchicine (Colchicine) 0.6 mg BID PRN PO PAIN LEVEL 6-10; Start 11/10/18 at 14:30 Allopurinol (Zyloprim) 300 mg DAILY PO ; Start 11/11/18 at 09:00 Acetaminophen (Tylenol Tab) 650 mg Q6H PRN PO MILD PAIN(1-3)OR ELEVATED TEMP; Start 11/10/18 at 15:00 Metoprolol Tartrate (Lopressor) 50 mg BID PO Last administered on 11/10/18at 21:11; Admin Dose 50 MG; Start 11/10/18 at 21:00 Meds reviewed: Yes Allergies Coded Allergies: Penicillins (Verified Allergy, Unknown, DIZZY, DIAPHORETIC AFTER LARGE DOSE AT AGE 19, 11/10/18) adhesive (Verified Allergy, Unknown, 11/10/18) latex (Verified Allergy, Unknown, 11/10/18) Allergies Reviewed: Yes Labs/Studies Labs Reviewed: Reviewed by anesthesiologist Result Diagram: 11/11/18 0441 11/11/18 0441 Laboratory Tests 11/11/18 04:41 Blood Bank Test 11/10/18 10:33 Antibody Screen NEGATIVE Blood Type O POSITIVE test: N/A Pre-procedure Exam Last vitals Vital Signs Date Temp Pulse Resp B/P (MAP) Pulse Ox O2 O2 Flow FiO2 Time Delivery Rate 11/11/18 97.9 63 18 130/63 92 02:36 (85) 11/10/18 Room Air 13:47 Airway: Adequate mouth opening, Adequate thyromental dist Mallampati: Mallampati III Teeth: Normal Lung: Normal Heart: Normal ASA Physical Status ASA physical status: 4 Emergency: None Pre-operative Attestations Prior to commencing anesthesia and surgery, the patient was re-evaluated, there was verification of: *The patient's identity *The results of appropriate recent lab work and preoperative vital signs *The above evaluation not changing prior to induction *Anesthetic plan, risk benefits, alternative and complications discussed with patient/family; questions answered; patient/family understands, accepts and wishes to proceed. FRANK SWENSON DO Nov 11, 2018 08:48
[2018-11-11] MEDS ORDERED: ETOMIDATE 20 MG INJ ONE (08:52)
[2018-11-11] MEDS ORDERED: PROPOFOL 20 ML ONE (08:52)
[2018-11-11] MEDS ORDERED: LIDOCAINE 2% (SDV) 5 ML INJ ONE (08:52)
[2018-11-11] MEDS: AMLODIPINE 5 MG TAB PO SCH ×2 (09:00→21:33)
[2018-11-11] MEDS: METOPROLOL 50 MG TAB PO SCH ×2 (09:00→21:33)
[2018-11-11] MEDS: ALLOPURINOL 300 MG TAB PO SCH (09:00)
--- NOTE | 2018-11-11 10:04 | PAC ---
Date/Time of Note Date/Time of Note DATE: 11/11/18 TIME: 10:03 Post-Anesthesia Notes Post-Anesthesia Note Last documented vital signs Vital Signs Date Temp Pulse Resp B/P (MAP) Pulse Ox O2 O2 Flow FiO2 Time Delivery Rate 11/11/18 98 70 18 125/60 95 1000 11/10/18 Room Air 13:47 Activity: WNL Respiratory function: WNL Cardiovascular function: WNL Mental status: Baseline Pain reasonably controlled: Yes Hydration appropriate: Yes Nausea/Vomiting absent: Yes FRANK SWENSON DO Nov 11, 2018 10:04
--- NOTE | 2018-11-11 11:03 | CONS ---
Assessment/Plan Assessment/Plan Assessment/Plan (Daily) IMPRESSION: 1. Rectal bleeding. Stool was sort of darker in color, burgundy, rule out ischemic colon, rule out AVM as a cause. Rule out diverticulosis or hemorrhoid. Also rule out peptic ulcer disease with rapid transit 2. End-stage renal disease. 3. Atrial fibrillation. 4. Anemia. Hematocrit dropped down to 25 5. Hypertension. 6 electrolyte imbalance potassium is 3.5 Plan Patient is stable and we can proceed with EGD and colonoscopy. Discussed with the patient and has agreed for the procedure. Case was also discussed with anesthesiologist Consultation Date/Type/Reason Admit Date/Time Nov 10, 2018 at 11:25 Initial Consult Date 11/11/18 Requesting Provider: AARTI MCDANIEL MD Date/Time of Note DATE: 11/11/18 TIME: 11:02 24 HR Interval Summary Constitutional: no complaints, improved Exam/Review of Systems Exam Vitals Vital Signs Date Temp Pulse Resp B/P (MAP) Pulse Ox O2 O2 Flow FiO2 Time Delivery Rate 11/11/18 98.0 63 20 150/70 94 Room Air 10:28 (96) 11/11/18 6.0 09:58 Intake and Output 11/10/18 11/10/18 11/11/18 1515:00 23:00 07:00 IntakeIntake Total 600 ml 3400 ml BalanceBalance 600 ml 3400 ml Constitutional: alert, oriented, well developed Psych: no complaints, nl mood/affect Head: normocephalic, atraumatic Eyes: nl conjunctiva, EOMI, nl lids, nl sclera, PERRL ENMT: nl external ears & nose, nl lips & teeth, nl nasal mucosa & septum Neck: supple, non-tender Respiratory: clear to auscultation, normal air movement Cardiovascular: regular rate and rhythm, nl pulses Gastrointestinal: soft, nl liver, spleen, non-tender Musculoskeletal: nl extremities to inspection, nl gait and stance Extremities: normal pulses Neurological: QUILT SEWER II-XII intact, nl mental status, nl speech, nl strength Skin: nl turgor; No rash or lesions Lymph: nl lymph nodes Results Result Diagram: 11/11/181 11/11/181 Results 24hrs Laboratory Tests Test 11/11/18 04:41 White Blood Count 6.2 # Red Blood Count 2.62 L Hemoglobin 8.2 L Hematocrit 25.3 L Mean Corpuscular Volume 96.6 Mean Corpuscular Hemoglobin 31.3 Mean Corpuscular Hemoglobin Concent 32.4 Red Cell Distribution Width 15.7 H Platelet Count 163 Mean Platelet Volume 10.8 H Immature Granulocytes % 0.500 H Neutrophils % 59.5 Lymphocytes % 18.5 Monocytes % 8.8 Eosinophils % 11.4 H Basophils % 1.3 Nucleated Red Blood Cells % 0.0 Immature Granulocytes # 0.030 Neutrophils # 3.7 Lymphocytes # 1.2 Monocytes # 0.6 Eosinophils # 0.7 H Basophils # 0.1 Nucleated Red Blood Cells # 0.0 Prothrombin Time 13.9 Prothrombin Time Ratio 1.1 INR International Normalized Ratio 1.06 Activated Partial Thromboplast Time 32.5 Sodium Level 137 Potassium Level 3.3 L Chloride Level 94 L Carbon Dioxide Level 31 Anion Gap 12 Blood Urea Nitrogen 45 H Creatinine 3.53 H Est Glomerular Filtrat Rate mL/min Glucose Level 94 Calcium Level 9.1 Total Bilirubin 0.2 Direct Bilirubin 0.00 Indirect Bilirubin 0.2 Aspartate Amino Transf (AST/SGOT) 25 Alanine Aminotransferase (ALT/SGPT) 20 Alkaline Phosphatase 54 Total Protein 6.1 Albumin 3.6 Globulin 2.50 Albumin/Globulin Ratio 1.44 Medications Medication Current Medications Albumin Human 100 ml @ 100 mls/hr WITH DIALYSIS PRN IV SBP <90 DURING DIALY SIS; Start 11/10/18 at 14:30 Sodium Chloride (NS) -To prime the dialy... DIRECTED FOR HD PRN IV HD; Start 11/10/18 at 14:30 Amlodipine Besylate (Norvasc) 5 mg BID PO Last administered on 11/10/18at 21:11; Admin Dose 5 MG; Start 11/10/18 at 21:00 Atorvastatin Calcium (Lipitor) 10 mg HS PO Last administered on 11/10/18at 21:11; Admin Dose 10 MG; Start 11/10/18 at 21:00 Colchicine (Colchicine) 0.6 mg BID PRN PO PAIN LEVEL 6-10; Start 11/10/18 at 14:30 Allopurinol (Zyloprim) 300 mg DAILY PO ; Start 11/11/18 at 09:00 Acetaminophen (Tylenol Tab) 650 mg Q6H PRN PO MILD PAIN(1-3)OR ELEVATED TEMP; Start 11/10/18 at 15:00 Metoprolol Tartrate (Lopressor) 50 mg BID PO Last administered on 11/10/18at 21:11; Admin Dose 50 MG; Start 11/10/18 at 21:00 RANJIT CORTES MD Nov 11, 2018 11:03
--- NOTE | 2018-11-11 12:53 | PN ---
Date/Time of Note Date/Time of Note DATE: 11/11/18 TIME: 12:52 Assessment/Plan VTE Prophylaxis Risk score (from Ns)>0 risk: 2 SCD applied (from [facility] [place] No SCD contraindicated: other Pharmacological prophylaxis: LMWH Lines/Catheters IV Catheter Type (from [facility]): Peripheral IV Assessment/Plan Hospital Course Rectal hemorrhage -GI follows End stage renal disease on dialysis - Renal follows Anemia Hypertension Afib Will get cardiac clearance as pt has Hx afib; hold po meds pt is NPO Result Diagram: 11/11/18 0441 11/11/18 0441 Results 24hrs Laboratory Tests Test 11/11/18 04:41 White Blood Count 6.2 # Red Blood Count 2.62 L Hemoglobin 8.2 L Hematocrit 25.3 L Mean Corpuscular Volume 96.6 Mean Corpuscular Hemoglobin 31.3 Mean Corpuscular Hemoglobin Concent 32.4 Red Cell Distribution Width 15.7 H Platelet Count 163 Mean Platelet Volume 10.8 H Immature Granulocytes % 0.500 H Neutrophils % 59.5 Lymphocytes % 18.5 Monocytes % 8.8 Eosinophils % 11.4 H Basophils % 1.3 Nucleated Red Blood Cells % 0.0 Immature Granulocytes # 0.030 Neutrophils # 3.7 Lymphocytes # 1.2 Monocytes # 0.6 Eosinophils # 0.7 H Basophils # 0.1 Nucleated Red Blood Cells # 0.0 Prothrombin Time 13.9 Prothrombin Time Ratio 1.1 INR International Normalized Ratio 1.06 Activated Partial Thromboplast Time 32.5 Sodium Level 137 Potassium Level 3.3 L Chloride Level 94 L Carbon Dioxide Level 31 Anion Gap 12 Blood Urea Nitrogen 45 H Creatinine 3.53 H Est Glomerular Filtrat Rate mL/min Glucose Level 94 Calcium Level 9.1 Total Bilirubin 0.2 Direct Bilirubin 0.00 Indirect Bilirubin 0.2 Aspartate Amino Transf (AST/SGOT) 25 Alanine Aminotransferase (ALT/SGPT) 20 Alkaline Phosphatase 54 Total Protein 6.1 Albumin 3.6 Globulin 2.50 Albumin/Globulin Ratio 1.44 Subjective 24 Hr Interval Summary Free Text/Dictation Patient has no complaints Exam/Review of Systems Exam Vitals Vital Signs Date Temp Pulse Resp B/P (MAP) Pulse Ox O2 O2 Flow FiO2 Time Delivery Rate 11/11/18 98.0 63 20 150/70 94 Room Air 10:28 (96) 11/11/18 6.0 09:58 Intake and Output 11/10/18 11/10/18 11/11/18 1515:00 23:00 07:00 IntakeIntake Total 600 ml 3400 ml BalanceBalance 600 ml 3400 ml Constitutional: well developed Head: normocephalic, atraumatic Neck: supple Respiratory: clear to auscultation Cardiovascular: regular rate and rhythm Gastrointestinal: soft, non-tender Extremities: normal pulses Results Results 24hrs Laboratory Tests Test 11/11/18 04:41 White Blood Count 6.2 # Red Blood Count 2.62 L Hemoglobin 8.2 L Hematocrit 25.3 L Mean Corpuscular Volume 96.6 Mean Corpuscular Hemoglobin 31.3 Mean Corpuscular Hemoglobin Concent 32.4 Red Cell Distribution Width 15.7 H Platelet Count 163 Mean Platelet Volume 10.8 H Immature Granulocytes % 0.500 H Neutrophils % 59.5 Lymphocytes % 18.5 Monocytes % 8.8 Eosinophils % 11.4 H Basophils % 1.3 Nucleated Red Blood Cells % 0.0 Immature Granulocytes # 0.030 Neutrophils # 3.7 Lymphocytes # 1.2 Monocytes # 0.6 Eosinophils # 0.7 H Basophils # 0.1 Nucleated Red Blood Cells # 0.0 Prothrombin Time 13.9 Prothrombin Time Ratio 1.1 INR International Normalized Ratio 1.06 Activated Partial Thromboplast Time 32.5 Sodium Level 137 Potassium Level 3.3 L Chloride Level 94 L Carbon Dioxide Level 31 Anion Gap 12 Blood Urea Nitrogen 45 H Creatinine 3.53 H Est Glomerular Filtrat Rate mL/min Glucose Level 94 Calcium Level 9.1 Total Bilirubin 0.2 Direct Bilirubin 0.00 Indirect Bilirubin 0.2 Aspartate Amino Transf (AST/SGOT) 25 Alanine Aminotransferase (ALT/SGPT) 20 Alkaline Phosphatase 54 Total Protein 6.1 Albumin 3.6 Globulin 2.50 Albumin/Globulin Ratio 1.44 Medications Medication Current Medications Albumin Human 100 ml @ 100 mls/hr WITH DIALYSIS PRN IV SBP <90 DURING DIALYSIS; Start 11/10/18 at 14:30 Sodium Chloride (NS) -To prime the dialy... DIRECTED FOR HD PRN IV HD; Start 11/10/18 at 14:30 Amlodipine Besylate (Norvasc) 5 mg BID PO Last administered on 11/10/18at 21:11; Admin Dose 5 MG; Start 11/10/18 at 21:00 Atorvastatin Calcium (Lipitor) 10 mg HS PO Last administered on 11/10/18at 21:11; Admin Dose 10 MG; Start 11/10/18 at 21:00 Colchicine (Colchicine) 0.6 mg BID PRN PO PAIN LEVEL 6-10; Start 11/10/18 at 14:30 Allopurinol (Zyloprim) 300 mg DAILY PO ; Start 11/11/18 at 09:00 Acetaminophen (Tylenol Tab) 650 mg Q6H PRN PO MILD PAIN(1-3)OR ELEVATED TEMP; Start 11/10/18 at 15:00 Metoprolol Tartrate (Lopressor) 50 mg BID PO Last administered on 11/10/18at 21:11; Admin Dose 50 MG; Start 11/10/18 at 21:00 KHUSHBU RODRIGUES Nov 11, 2018 12:52
--- NOTE | 2018-11-11 16:41 | CONS ---
Assessment/Plan Assessment/Plan Assessment/Plan (Daily) 1. Rectal bleeding - Lower GI bleeding- none reported - SP colonoscopy today 2. ESRD on HD TTS - per nephrology 4. Hypokalemia - as of yestreday; no labs today 4. H/o HTN - stable 5. H/O Previous OM of LS Spine Plan : - Having HD now - BP controlled Will follow up. Patient seen in collaboration with Dr Avalos. dw staff Consultation Date/Type/Reason Admit Date/Time Nov 10, 2018 at 11:25 Initial Consult Date 11/11/18 Type of Consult NEPHROLOGY Requesting Provider: AARTI MCDANIEL MD Date/Time of Note DATE: 11/11/18 TIME: 16:40 24 HR Interval Summary Free Text/Dictation - nad - feels better - having HD now - no rectal bleeding reported today - SP colonoscopy today - no new events reported last night - dw staff Constitutional: no complaints Detailed Summary Eyes: no complaints ENT: no complaints Respiratory: no complaints Gastrointestinal: no complaints Genitourinary: no complaints Musculoskeletal: no complaints Skin: no complaints Neurologic: no complaints Endocrine: no complaints Psychological: nl mood/affect Immunologic: no complaints Exam/Review of Systems Exam Vitals Vital Signs Date Temp Pulse Resp B/P (MAP) Pulse Ox O2 O2 Flow FiO2 Time Delivery Rate 11/11/18 60 17 128/50 96 Room Air 16:31 (76) 11/11/18 98.0 10:28 11/11/18 6.0 09:58 Intake and Output 11/10/18 11/10/18 11/11/18 1515:00 23:00 07:00 IntakeIntake Total 600 ml 3400 ml BalanceBalance 600 ml 3400 ml Constitutional: alert, oriented, well developed Psych: nl mood/affect Head: atraumatic Eyes: EOMI, nl lids, nl sclera ENMT: nl external ears & nose Neck: supple Respiratory: clear to auscultation Cardiovascular: nl pulses, other (S1S2) Gastrointestinal: soft, non-tender Musculoskeletal: nl extremities to inspection Extremities: normal pulses Neurological: nl mental status, nl speech Skin: nl turgor Lymph: nontender Results Result Diagram: 11/11/18 0441 11/11/18 0441 Results 24hrs Laboratory Tests Test 11/11/18 04:41 White Blood Count 6.2 # Red Blood Count 2.62 L Hemoglobin 8.2 L Hematocrit 25.3 L Mean Corpuscular Volume 96.6 Mean Corpuscular Hemoglobin 31.3 Mean Corpuscular Hemoglobin Concent 32.4 Red Cell Distribution Width 15.7 H Platelet Count 163 Mean Platelet Volume 10.8 H Immature Granulocytes % 0.500 H Neutrophils % 59.5 Lymphocytes % 18.5 Monocytes % 8.8 Eosinophils % 11.4 H Basophils % 1.3 Nucleated Red Blood Cells % 0.0 Immature Granulocytes # 0.030 Neutrophils # 3.7 Lymphocytes # 1.2 Monocytes # 0.6 Eosinophils # 0.7 H Basophils # 0.1 Nucleated Red Blood Cells # 0.0 Prothrombin Time 13.9 Prothrombin Time Ratio 1.1 INR International Normalized Ratio 1.06 Activated Partial Thromboplast Time 32.5 Sodium Level 137 Potassium Level 3.3 L Chloride Level 94 L Carbon Dioxide Level 31 Anion Gap 12 Blood Urea Nitrogen 45 H Creatinine 3.53 H Est Glomerular Filtrat Rate mL/min Glucose Level 94 Calcium Level 9.1 Total Bilirubin 0.2 Direct Bilirubin 0.00 Indirect Bilirubin 0.2 Aspartate Amino Transf (AST/SGOT) 25 Alanine Aminotransferase (ALT/SGPT) 20 Alkaline Phosphatase 54 Total Protein 6.1 Albumin 3.6 Globulin 2.50 Albumin/Globulin Ratio 1.44 Medications Medication Current Medications Albumin Human 100 ml @ 100 mls/hr WITH DIALYSIS PRN IV SBP <90 DURING DIALYSIS; Start 11/10/18 at 14:30 Sodium Chloride (NS) -To prime the dialy... DIRECTED FOR HD PRN IV HD; Start 11/10/18 at 14:30 Amlodipine Besylate (Norvasc) 5 mg BID PO Last administered on 11/10/18at 21:11; Admin Dose 5 MG; Start 11/10/18 at 21:00 Atorvastatin Calcium (Lipitor) 10 mg HS PO Last administered on 11/10/18at 21:11; Admin Dose 10 MG; Start 11/10/18 at 21:00 Colchicine (Colchicine) 0.6 mg BID PRN PO PAIN LEVEL 6-10; Start 11/10/18 at 14:30 Allopurinol (Zyloprim) 300 mg DAILY PO ; Start 11/11/18 at 09:00 Acetaminophen (Tylenol Tab) 650 mg Q6H PRN PO MILD PAIN(1-3)OR ELEVATED TEMP; Start 11/10/18 at 15:00 Metoprolol Tartrate (Lopressor) 50 mg BID PO Last administered on 11/10/18at 21:11; Admin Dose 50 MG; Start 11/10/18 at 21:00 МАРИНА DOSHI Nov 11, 2018 16:41
--- NOTE | 2018-11-11 20:55 | CONS ---
DATE OF ADMISSION: 11/10/2018 DATE OF CONSULTATION: 11/11/2018 REASON FOR CONSULTATION: Hypertension, preoperative evaluation. REQUESTING PHYSICIAN: Dr. Mcdaniel. HISTORY OF PRESENT ILLNESS: Mr. Mahajan is a very pleasant 73-year-old male with history of hyperten ashanti, dyslipidemia, end-stage renal disease, paroxysmal atrial fibrillation, reportedly I do not see the patient is on baseline systemic anticoagulation, possibly had been on aspirin, who presents with rectal bleeding. Initially upon arrival, temperature 98.1, blood pressure 134/63, pulse , respi ration 18, sat 97%. The patient's labs were notable for white blood cell count of 7.9, hemoglobin 9. 0, platelet count 172. Sodium 137, potassium 4.1, creatinine 3.5, BUN 47. INR 0.9. B surface antig en negative, hepatitis B antibody positive. The patient has no imaging studies for my review at this time. The patient has no electrocardiograms for my review at this time. The patient has been admit gaurav to undergo colonoscopy today. The patient denies chest pain, shortness of breath. PAST MEDICAL HISTORY: As above in HPI. MEDICATIONS CURRENTLY IN HOSPITAL: 1. Allopurinol 200 mg daily. 2. Norvasc 5 mg p.o. b.i.d. 3. Lipitor 20 mg at bedtime. 4. Metoprolol 50 mg p.o. b.i.d. 5. Tylenol p.r.n. 6. Ultram p.r.n. 7. Colchicine p.r.n. ALLERGIES: PENICILLIN. SOCIAL HISTORY: No current tobacco, ETOH or illicit drug use. FAMILY HISTORY: No history of sudden cardiac or early CAD. REVIEW OF SYSTEMS: As above in HPI. CONSTITUTIONAL: No fevers, chills. PULMONARY: No current shortness of breath. CARDIOVASCULAR: History of atrial fibrillation. GASTROINTESTINAL: Rectal bleed. GENITOURINARY: No hematuria. MUSCULOSKELETAL: Degenerative joint disease. PSYCHIATRIC: No documented psych history. NEUROLOGIC: No documented CVA. ENDOCRINE: No documented diagnosis. PHYSICAL EXAMINATION: VITAL SIGNS: Temperature of 98, blood pressure most recently 120/70, pulse 60, respirations 17, sats 96%. GENERAL: The patient is alert, awake, in no acute distress. NECK: JVP approximately 8 cm water. CHEST: Fair air movement throughout. HEART: Regular rate and rhythm. Normal S1, S2. I/IV systolic murmur. Nondisplaced PMI. ABDOMEN: Positive bowel sounds, soft. EXTREMITIES: No significant pitting edema. 1+ pulses bilateral posterior tibial. LABORATORY DATA: Most recent from today, sodium 127, potassium 3.3, creatinine 3.5, BUN of 45. INR 1.0. White cell count 6.2, hemoglobin 8.2, platelet count 163. IMAGING STUDIES: As above in HPI. No further imaging studies for my review at this time. ELECTROCARDIOGRAM: No electrocardiograms for my review at this time. IMPRESSION: 1. Paroxysmal atrial fibrillation, assess management. 2. Rectal bleed. 3. Hypertension. 4. Dyslipidemia. 5. Preoperative for colonoscopy. 6. Rectal bleed. 7. Anemia. 8. End-stage renal disease on hemodialysis. RECOMMENDATIONS: 1. At this time, the patient has no contraindication to proceeding to colonoscopy. 2. Would continue the patient's baseline Norvasc and metoprolol. Follow blood pressure and heart rat e closely after receiving. 3. After colonoscopy would consider resumption of aspirin as tolerated only versus need for true sys temic anticoagulation. 4. Check a baseline EKG now and repeat EKG in morning to assess for any abnormalities, positive stre ss test findings and assess the patient's current rhythm. 5. Check fasting lipid panel for general risk stratification and adjust the patient's statin therapy as necessary. 6. Check a 2D echo for this patient's ejection fraction, wall motion, and major valve abnormalities. 7. Check a TSH to be sure he does not have subclinical hyperthyroidism, does not contributing to mary ts of possible tachyarrhythmia. Thank you for allowing me to take part in care of this patient. Continue to follow very closely with you. Further recommendations will be made as the patient progresses through inpatient hospital clin ical course. Dictated By: CLAUDIA MALDONADO/RIKA Conf#: [id number] DID#: [id number] CC: MADELYN MIRANDA MD; AARTI MCDANIEL MD;*EndCC*
[2018-11-11] MEDS: ATORVASTATIN 10 MG TAB PO SCH (21:32)
[2018-11-12 02:30] VITALS: BP 131/60; PULSE 58; RESP 18
--- NOTE | 2018-11-12 05:25 | CONS ---
Assessment/Plan Assessment/Plan Assessment/Plan (Daily) - Hypokalemia- replace K, fu am BMP - Rectal bleeding - Lower GI bleeding- none reported - SP colonoscopy today - ESRD on HD TTS - Mild Hyperkalemia - RESOLVED - H/o HTN - H/O Previous OM of LS Spine - Anemia - Hgb 8.2 today Plan : -HD- TTS -BP controlled -will follow up. Patient seen in collaboration with Dr Miguel Avalos. Consultation Date/Type/Reason Admit Date/Time Nov 10, 2018 at 11:25 Initial Consult Date 11/11/18 Type of Consult NEPHROLOGY Requesting Provider: AARTI MCDANIEL MD Date/Time of Note DATE: 11/12/18 TIME: 05:25 24 HR Interval Summary Free Text/Dictation - nad - feels better - SP HD; SP colonoscopy yesterday - no rectal bleeding reported today - no new events reported last night - dw staff Detailed Summary Eyes: no complaints ENT: no complaints Respiratory: no complaints Cardiovascular: no complaints Gastrointestinal: no complaints Genitourinary: no complaints Musculoskeletal: no complaints Skin: no complaints Endocrine: no complaints Lymphatic: no complaints Psychological: no complaints, nl mood/affect Immunologic: no complaints Exam/Review of Systems Exam Vitals Vital Signs Date Temp Pulse Resp B/P (MAP) Pulse Ox O2 O2 Flow FiO2 Time Delivery Rate 11/12/18 98.5 58 18 131/60 95 02:30 (83) 11/11/18 Room Air 21:32 11/11/18 6.0 09:58 Intake and Output 11/11/18 11/11/18 11/12/18 1515:00 23:00 07:00 IntakeIntake Total 120 ml 620 ml 80 ml OutputOutput Total 1750 ml BalanceBalance 120 ml -1130 ml 80 ml Constitutional: alert, well developed Psych: nl mood/affect Head: normocephalic Eyes: nl lids, nl sclera ENMT: nl external ears & nose Neck: non-tender Respiratory: clear to auscultation Cardiovascular: nl pulses, other (s1s2) Gastrointestinal: soft, non-tender Musculoskeletal: nl extremities to inspection Extremities: normal pulses Neurological: nl mental status, nl speech Lymph: nontender Results Result Diagram: 11/11/1844011/11/18440 Medications Medication Current Medications Albumin Human 100 ml @ 100 mls/hr WITH DIALYSIS PRN IV SBP <90 DURING DIALYSIS; Start 11/10/18 at 14:30 Sodium Chloride (NS) -To prime the dialy... DIRECTED FOR HD PRN IV HD; Start 11/10/18 at 14:30 Amlodipine Besylate (Norvasc) 5 mg BID PO Last administered on 11/11/18 21:33; Admin Dose 5 MG; Start 11/10/18 at 21:00 Atorvastatin Calcium (Lipitor) 10 mg HS PO Last administered on 11/11/18at 21:32; Admin Dose 10 MG; Start 11/10/18 at 21:00 Colchicine (Colchicine) 0.6 mg BID PRN PO PAIN LEVEL 6-10; Start 11/10/18 at 14:30 Allopurinol (Zyloprim) 300 mg DAILY PO ; Start 11/11/18 at 09:00 Acetaminophen (Tylenol Tab) 650 mg Q6H PRN PO MILD PAIN(1-3)OR ELEVATED TEMP; Start 11/10/18 at 15:00 Metoprolol Tartrate (Lopressor) 50 mg BID PO Last administered on 11/11/18at 21:33; Admin Dose 50 MG; Start 11/10/18 at 21:00 МАРИНА DOSHI Nov 12, 2018 05:25
[2018-11-12 07:32] VITALS: BP 137/60; PULSE 62; RESP 15
[2018-11-12] MEDS: METOPROLOL 50 MG TAB PO SCH (08:57)
[2018-11-12] MEDS: AMLODIPINE 5 MG TAB PO SCH (08:58)
[2018-11-12] MEDS: ALLOPURINOL 300 MG TAB PO SCH (08:58)
--- NOTE | 2018-11-12 12:42 | PN ---
Date/Time of Note Date/Time of Note DATE: 11/12/18 TIME: 12:42 Assessment/Plan VTE Prophylaxis Risk score (from Ns)>0 risk: 2 SCD applied (from Ns): Yes Pharmacological prophylaxis: NA/contraindicated Pharm contraindication: bleeding Lines/Catheters IV Catheter Type (from Nrs): Saline Lock Urinary Cath still in place: No Assessment/Plan Hospital Course Rectal hemorrhage -GI follows End stage renal disease on dialysis - Renal follows Anemia Hypertension Afib Will get cardiac clearance as pt has Hx afib; hold po meds pt is NPO Result Diagram: 11/11/1844011/11/18440 Results 24hrs Laboratory Tests Test 11/12/18 04:37 Triglycerides Level 119 Cholesterol Level 125 LDL Cholesterol, Calculated 63 HDL Cholesterol 38 Cholesterol/HDL Ratio 3.2 Subjective 24 Hr Interval Summary Free Text/Dictation No further rectal bleeding Exam/Review of Systems Exam Vitals Vital Signs Date Temp Pulse Resp B/P (MAP) Pulse Ox O2 O2 Flow FiO2 Time Delivery Rate 11/12/18 98.4 62 15 137/60 100 Room Air 07:32 (85) 11/11/18 6.0 09:58 Intake and Output 11/11/18 11/11/18 11/12/18 1515:00 23:00 07:00 IntakeIntake Total 120 ml 620 ml 80 ml OutputOutput Total 1750 ml BalanceBalance 120 ml -1130 ml 80 ml Constitutional: well developed Head: normocephalic, atraumatic Neck: supple Respiratory: clear to auscultation Cardiovascular: regular rate and rhythm Gastrointestinal: soft, non-tender Extremities: normal pulses Results Results 24hrs Laboratory Tests Test 11/12/18 04:37 Triglycerides Level 119 Cholesterol Level 125 LDL Cholesterol, Calculated 63 HDL Cholesterol 38 Cholesterol/HDL Ratio 3.2 Medications Medication Current Medications Albumin Human 100 ml @ 100 mls/hr WITH DIALYSIS PRN IV SBP <90 DURING DIALYSIS; Start 11/10/18 at 14:30 Sodium Chloride (NS) -To prime the dialy... DIRECTED FOR HD PRN IV HD; Start 11/10/18 at 14:30 Amlodipine Besylate (Norvasc) 5 mg BID PO Last administered on 11/12/18at 08:58; Admin Dose 5 MG; Start 11/10/18 at 21:00 Atorvastatin Calcium (Lipitor) 10 mg HS PO Last administered on 11/11/18at 21:32; Admin Dose 10 MG; Start 11/10/18 at 21:00 Colchicine (Colchicine) 0.6 mg BID PRN PO PAIN LEVEL 6-10; Start 11/10/18 at 14:30 Allopurinol (Zyloprim) 300 mg DAILY PO Last administered on 11/12/18at 08:58; Admin Dose 300 MG; Start 11/11/18 at 09:00 Acetaminophen (Tylenol Tab) 650 mg Q6H PRN PO MILD PAIN(1-3)OR ELEVATED TEMP; Start 11/10/18 at 15:00 Metoprolol Tartrate (Lopressor) 50 mg BID PO Last administered on 11/12/18 08:57; Admin Dose 50 MG; Start 11/10/18 at 21:00 KHUSHBU RODRIGUES Nov 12, 2018 12:42
--- NOTE | 2018-11-12 13:40 | CONS ---
Assessment/Plan Assessment/Plan Assessment/Plan (Daily) IMPRESSION: 1. Rectal bleeding. Stable, mostly from diverticulosis 2. End-stage renal disease. 3. Atrial fibrillation. 4. Anemia. Hematocrit dropped down to 25 5. Hypertension. 6 electrolyte imbalance potassium is 3.5 Plan advance diet Patient is stable from GI point Consultation Date/Type/Reason Admit Date/Time Nov 10, 2018 at 11:25 Initial Consult Date 11/11/18 Requesting Provider: AARTI MCDANIEL MD Date/Time of Note DATE: 11/12/18 TIME: 13:38 24 HR Interval Summary Free Text/Dictation No further bleeding noted. patient is totally asymptomatic Constitutional: improved Exam/Review of Systems Exam Vitals Vital Signs Date Temp Pulse Resp B/P (MAP) Pulse Ox O2 O2 Flow FiO2 Time Delivery Rate 11/12/18 98.4 62 15 137/60 100 Room Air 07:32 (85) 11/11/18 6.0 09:58 Intake and Output 11/11/18 11/11/18 11/12/18 1515:00 23:00 07:00 IntakeIntake Total 120 ml 620 ml 80 ml OutputOutput Total 1750 ml BalanceBalance 120 ml -1130 ml 80 ml Constitutional: alert, oriented, well developed Psych: no complaints, nl mood/affect Head: normocephalic, atraumatic Eyes: nl conjunctiva, EOMI, nl lids, nl sclera, PERRL ENMT: nl external ears & nose, nl lips & teeth, nl nasal mucosa & septum Neck: supple, non-tender Respiratory: clear to auscultation, normal air movement Cardiovascular: regular rate and rhythm, nl pulses Gastrointestinal: soft, nl liver, spleen, non-tender Musculoskeletal: nl extremities to inspection, nl gait and stance Extremities: normal pulses Neurological: [employer] II-XII intact, nl mental status, nl speech, nl strength Skin: nl turgor; No rash or lesions Lymph: nl lymph nodes Results Result Diagram: 11/11/1844011/11/181 Results 24hrs Laboratory Tests Test 11/12/18 04:37 Triglycerides Level 119 Cholesterol Level 125 LDL Cholesterol, Calculated 63 HDL Cholesterol 38 Cholesterol/HDL Ratio 3.2 Medications Medication Current Medications Albumin Human 100 ml @ 100 mls/hr WITH DIALYSIS PRN IV SBP <90 DURING DIALYSIS; Start 11/10/18 at 14:30 Sodium Chloride (NS) -To prime the dialy... DIRECTED FOR HD PRN IV HD; Start 11/10/18 at 14:30 Amlodipine Besylate (Norvasc) 5 mg BID PO Last administered on 11/12/18at 08:58; Admin Dose 5 MG; Start 11/10/18 at 21:00 Atorvastatin Calcium (Lipitor) 10 mg HS PO Last administered on 11/11/18at 21:32; Admin Dose 10 MG; Start 11/10/18 at 21:00 Colchicine (Colchicine) 0.6 mg BID PRN PO PAIN LEVEL 6-10; Start 11/10/18 at 14:30 Allopurinol (Zyloprim) 300 mg DAILY PO Last administered on 11/12/18at 08:58; Admin Dose 300 MG; Start 11/11/18 at 09:00 Acetaminophen (Tylenol Tab) 650 mg Q6H PRN PO MILD PAIN(1-3)OR ELEVATED TEMP; Start 11/10/18 at 15:00 Metoprolol Tartrate (Lopressor) 50 mg BID PO Last administered on 11/12/18at 08:57; Admin Dose 50 MG; Start 11/10/18 at 21:00 RANJIT CORTES MD Nov 12, 2018 13:40
--- NOTE | 2018-11-12 15:15 | CONS ---
Assessment/Plan Assessment/Plan Hospital Course (Demo Recall) IMPRESSION: 1. Paroxysmal atrial fibrillation, assess management.-SR by exam. patien t refusing ecg 2. Rectal bleed. 3. Hypertension.reasonable control 4. Dyslipidemia. 5. Preoperative for colonoscopy.- now s/p colonscopy 6. Rectal bleed-stable per GI 7. Anemia-slight worsnding 8. End-stage renal disease on hemodialysis. Recc: -Med-surg -Continue norvasc/BB and follow BP clsoely which is reasonable -Patient refusing ECG and echo -Follow hgb with possible need for transfusion -HD for volume removal Consultation Date/Type/Reason Admit Date/Time Nov 10, 2018 at 11:25 Initial Consult Date 11/11/18 Type of Consult Cardiology Reason for Consultation PAF/HTN Requesting Provider: AARTI MCDANIEL MD Date/Time of Note DATE: 11/12/18 TIME: 15:12 Exam/Review of Systems Vital Signs Vitals Vital Signs Date Temp Pulse Resp B/P (MAP) Pulse Ox O2 O2 Flow FiO2 Time Delivery Rate 11/12/18 98.4 62 15 137/60 100 Room Air 07:32 (85) 11/11/18 6.0 09:58 Intake and Output 11/11/18 11/11/18 11/12/18 1515:00 23:00 07:00 IntakeIntake Total 120 ml 620 ml 80 ml OutputOutput Total 1750 ml BalanceBalance 120 ml -1130 ml 80 ml Exam Exam Review of Systems: CONSTITUTIONAL: No fevers, chills. PULMONARY: No sob CARDIOVASCULAR: No chest pain/palpitations GASTROINTESTINAL: No nausea/vomiting. GENITOURINARY: No hematuria/dysuria. MUSCULOSKELETAL: No myagias/arthalgias. PSYCHIATRIC: The patient denies depression. NEUROLOGIC: No weakness Constitutional: alert, oriented Psych: no complaints Head: normocephalic ENMT: mucosa pink and moist Neck: supple, jvd (9 cm water) Respiratory: clear to auscultation Cardiovascular: regular rate and rhythm Gastrointestinal: soft, non-tender Musculoskeletal: muscle tone (normal) Extremities: edema (none) Neurological: other (no focal deficits) Labs Result Diagram: 11/11/181 11/11/181 Results 24hrs Laboratory Tests Test 11/12/18 04:37 Triglycerides Level 119 Cholesterol Level 125 LDL Cholesterol, Calculated 63 HDL Cholesterol 38 Cholesterol/HDL Ratio 3.2 Medications Medications Current Medications Albumin Human 100 ml @ 100 mls/hr WITH DIALYSIS PRN IV SBP <90 DURING DIALYSIS; Start 11/10/18 at 14:30 Sodium Chloride (NS) -To prime the dialy... DIRECTED FOR HD PRN IV HD; Start 11/10/18 at 14:30 Amlodipine Besylate (Norvasc) 5 mg BID PO Last administered on 11/12/18at 08:58; Admin Dose 5 MG; Start 11/10/18 at 21:00 Atorvastatin Calcium (Lipitor) 10 mg HS PO Last administered on 11/11/18at 21:32; Admin Dose 10 MG; Start 11/10/18 at 21:00 Colchicine (Colchicine) 0.6 mg BID PRN PO PAIN LEVEL 6-10; Start 11/10/18 at 14:30 Allopurinol (Zyloprim) 300 mg DAILY PO Last administered on 11/12/18at 08:58; Admin Dose 300 MG; Start 11/11/18 at 09:00 Acetaminophen (Tylenol Tab) 650 mg Q6H PRN PO MILD PAIN(1-3)OR ELEVATED TEMP; Start 11/10/18 at 15:00 Metoprolol Tartrate (Lopressor) 50 mg BID PO Last administered on 11/12/18 08:57; Admin Dose 50 MG; Start 11/10/18 at 21:00 CLAUDIA SHIRLEY Nov 12, 2018 15:15
[2018-11-12 15:19] VITALS: BP 119/69; PULSE 61; RESP 17
--- NOTE | 2018-11-12 16:03 | DS ---
Date/Time of Note Date/Time of Note DATE: 11/12/18 TIME: 16:02 Discharge Summary Admission/Discharge Info Admit Date/Time Nov 10, 2018 at 11:25 Discharge Date/Time 11/12/18 Discharge Diagnosis Rectal hemorrhage -GI follows End stage renal disease on dialysis - Renal follows Anemia Hypertension Afib Will get cardiac clearance as pt has Hx afib; hold po meds pt is NPO Patient Condition: Fair Consults Gastroenterology Nephrology Procedures EGD and colonoscopy Hx of Present Illness Patient with ESTD on hemodialysis comes in with rectal bleeding. Hospital Course Patient with ESTD on hemodialysis comes in with rectal bleeding. Patient had his hemoglobin monitored and underwent EGD and colonoscopy. Patient was found to have diverticulosis. He was felt to be stable and sent home. Rectal hemorrhage -GI follows End stage renal disease on dialysis - Renal follows Anemia Hypertension Afib Will get cardiac clearance as pt has Hx afib; hold po meds pt is NPO Home Meds Reported Medications Colchicine* (Colcrys*) 0.6 Mg Tablet, 0.6 MG PO DAILY, TAB 11/10/18 Docusate Sodium* (Colace*) 100 Mg Capsule, 100 MG PO BID, #60 CAP 11/10/18 Simvastatin* (Zocor*) 20 Mg Tablet, 20 MG PO QHS, #30 TAB 11/10/18 Amlodipine Besylate* (Norvasc*) 5 Mg Tablet, 5 MG PO BID, TAB 11/10/18 Metoprolol Tartrate* (Lopressor*) 50 Mg Tab, 50 MG PO BID, #60 TAB 11/10/18 Allopurinol* (Allopurinol*) 300 Mg Tablet, 300 MG PO DAILY, TAB 11/10/18 Calcium Acetate* (Calcium Acetate*) 667 Mg Capsule, 667 MG PO WITH MEALS, #30 CAP 11/10/18 Discontinued Reported Medications Calcium Acetate* (Calcium Acetate*) 667 Mg Capsule, 667 MG PO WITH MEALS, #30 CAP 06/01/18 Amlodipine Besylate* (Amlodipine Besylate*) 10 Mg Tablet, 10 MG PO DAILY, #30 TAB 06/01/18 Metoprolol Tartrate* (Lopressor*) 25 Mg Tab, 25 MG PO BID, #60 TAB 12/10/16 Aspirin Delayed Release (Aspirin Delayed Release) 81 Mg Tablet.dr, 81 MG PO DAILY 11/13/13 Simvastatin (Simvastatin) 20 Mg Tablet, 20 MG PO HS 11/13/13 Allopurinol* (Zyloprim*) 300 Mg Tablet, 300 MG PO DAILY 11/13/13 Primary Care Provider Juan Avalos MD Pending Labs Laboratory Tests Test 11/12/18 04:37 Triglycerides Level 119 mg/dl (0-149) Cholesterol Level 125 mg/dl (100-200) LDL Cholesterol, Calculated 63 mg/dl HDL Cholesterol 38 mg/dl (31-75) Cholesterol/HDL Ratio 3.2 RATIO KHUSHBU RODRIGUES Nov 12, 2018 16:03
== END 2018-11-12 16:40 | disposition home or self-care (01) ==
LOC: E/R 09:45 → MS1 11:25
PROVIDERS: ADMIT Internal Medicine; ATTEND Internal Medicine
DX: K57.31 Diverticulosis of large intestine without perforation or abscess with bleeding (principal); K29.00 Acute gastritis without bleeding; K62.5 Hemorrhage of anus and rectum; I12.0 Hypertensive chronic kidney disease with stage 5 chronic kidney disease or end stage renal disease; I48.91 Unspecified atrial fibrillation; N18.6 End stage renal disease; D64.9 Anemia, unspecified; E87.5 Hyperkalemia; K57.30 Diverticulosis of large intestine without perforation or abscess without bleeding; K55.20 Angiodysplasia of colon without hemorrhage; K22.2 Esophageal obstruction; Z91.040 Latex allergy status; Z88.0 Allergy status to penicillin; Z99.2 Dependence on renal dialysis; I48.0 Paroxysmal atrial fibrillation
CPT/HCPCS: 36415; 43239; 45378; 80048; 80053; 80061; 84443; 85025; 85610; 85730; 86706; 86850; 86900; 86901; 87340; 88305; 90935; 93005; 99285; G0378